=== PATIENT | female | born 1935 | race Caucasian/White ===

== ENCOUNTER 2023-01-28 12:42 | Emergency (ER) | payer MEDICARE, MEDICAID, SELFPAY ==
[2023-01-28 12:45] VITALS: BP 149/53; PULSE 80; RESP 16; TEMP 36.8; O2SAT 99; BMI 25.0
--- NOTE | 2023-01-28 12:49 | XR_ITS ---
The [place] [id number] Patient Name: MARTHA FERGUSON MRN: [id number] date: 1935 Sex: F Assigned Patient Location: ER Current Patient Location: ED.MAIN Accession/Order Number: [id number] Exam Date: 01/28/2023 13:00 Report Date: 01/28/2023 13:28 At the request of: CYRIL BENTLEY Procedure: XR lumbar spine 2-3V EXAMINATION: XR lumbar spine 2-3V, [id number] HISTORY: atraumatic pain, right-sided sciatica symptoms COMPARISON: None. FINDINGS: There are 5 nonrib-bearing lumbar-type vertebral bodies. No acute fracture or suspicious osseous lesion. Spinal alignment is within normal limits. Severe disc height loss moderate osteophytosis at L5-S1 with moderate disc height loss and moderate osteophytosis at L2-L3 and L4-L5. Lesser degenerative changes throughout the remainder of the lumbar spine. Severe calcified atherosclerosis of the abdominal aorta with bilateral vascular stents in the expected regions of the renal artery origins. XR/XR lumbar spine 2-3V IMPRESSION: 1. No acute abnormality. 2. Severe lumbar spondylosis, most notable at L5-S1 and L2-L3. Electronically authenticated by: DEX WASHBRUN Date: 01/28/2023 13:28
--- NOTE | 2023-01-28 12:50 | ED.GENADUL1 ---
HPI - General Adult General Chief complaint: Extremity Injury, Lower Stated complaint: LOWER EXTREMITY PAIN Time Seen by Provider: 01/28/23 12:44 Source: patient Mode of arrival: ambulance History of Present Illness HPI narrative: [age] female presents for right lower back pain which goes down the back of her right leg to the mid thigh region. No trauma. It started today. She's had somee issues with her back on and off her whole life and at one point many decades ago she was recommended surgery but didn't have it done. The pain is moderate and worse in certain positions. No left-sided pain. Related Data Previous Rx's Medication Instructions Recorded acetaminophen 300 mg-codeine 30 mg 1 tab PO Q6H PRN pain #20 tabs 01/28/23 tablet prednisone 10 mg tablet See Rx Instructions .Route 01/28/23 .COMPLEX #30 tabs Allergies Allergy/AdvReac Type Severity Reaction Status Date / Time No Known Drug Allergies Allergy Verified 01/28/23 12:45 Review of Systems ROS Narrative A ten point review of systems is negative except as noted above. Exam Narrative Exam Narrative: Nurses note and vital signs reviewed and patient is not hypoxic. General: The patient appears well and in no apparent distress. Patient is resting comfortably on cart, laying on her left side.. Skin: Warm, dry, no pallor noted. There is no rash noted including in the lumbar area and buttock area.. Head: Normocephalic, atraumatic Eye: Normal conjunctiva, no drainage Ears, Nose, Mouth, and Throat: oral mucosa is moist. Nares patent. Cardiovascular: Regular Rate and Rhythm Respiratory: Patient is in no distress, no accessory muscle use, lungs are clear to auscultation, no wheezing, rales or rhonchi Back: non-tender, no bruise or rash GI: nontender Musculoskeletal: no swelling in either leg Neurological: A&O, normal speech Psychiatric: Cooperative Constitutional Vital Signs, click to edit/add: Last Vital Signs Temp 98.2 F 01/28/23 12:45 Pulse 80 01/28/23 12:45 Resp 16 01/28/23 12:45 BP 149/53 H 01/28/23 12:45 Pulse Ox 99 01/28/23 12:53 O2 Del Method Room Air 01/28/23 12:53 Course Vital Signs Vital signs: Vital Signs Temperature 98.2 F 01/28/23 12:45 Pulse Rate 80 01/28/23 12:45 Respiratory Rate 16 01/28/23 12:45 Blood Pressure 149/53 H 01/28/23 12:45 Pulse Oximetry 99 01/28/23 12:45 Oxygen Delivery Method Room Air 01/28/23 12:45 Temperature 98.2 F 01/28/23 12:45 Pulse Rate 80 01/28/23 12:45 Respiratory Rate 16 01/28/23 12:45 Blood Pressure 149/53 H 01/28/23 12:45 Pulse Oximetry 99 01/28/23 12:53 Oxygen Delivery Method Room Air 01/28/23 12:53 Medical Decision Making MDM Narrative Medical decision making narrative: x-ray showed degenerative changes but no acute findings such as a compression fracture. She was given IM Toradol here and is prescribed Discharge Plan Discharge Chief Complaint: Extremity Injury, Lower Clinical Impression: Sciatica Patient Disposition: Home, Self-Care Time of Disposition Decision: 15:02 Condition: Good Mode of Transportation: Private Vehicle Prescriptions / Home Meds: New prednisone 10 mg tablet See Rx Instructions .ROUTE .COMPLEX Qty: 30 0RF Rx Instructions: 4 by mouth daily for three days then 3 by mouth daily for three days then 2 by mouth daily for three days then 1 by mouth daily for three days acetaminophen-codeine 300-30 mg tablet 1 tab PO Q6H PRN (Reason: pain) Qty: 20 0RF Instructions: Sciatica (ED) Stand Alone Forms: Portal Instructions Referrals: Physician,Non-Staff, MD [Primary Care Provider] - 1 week
[2023-01-28 12:53] VITALS: O2SAT 99
[2023-01-28] MEDS: KETOROLAC TROMETHAMINE 60 MG/2 ML VIAL IM (13:43)
== END 2023-01-28 15:41 | disposition home or self-care (01) ==
PROVIDERS: Emergency Provider Emergency Medicine
DX: M54.41 Lumbago with sciatica, right side (principal); M47.816 Spondylosis without myelopathy or radiculopathy, lumbar region
CPT/HCPCS: 72100; 96372; 99284

== ENCOUNTER 2023-02-07 04:49 | Outpatient (REF) | payer MEDICARE, MEDICAID, SELFPAY ==
[2023-02-07 10:25] LABS: Hematocrit 27.2 % (36.0-48.0); Hemoglobin 8.6 g/dL (12.0-16.0); Mean Corpuscular HGB Conc 31.6 g/dL (29.9-35.2); Mean Corpuscular Hemoglobin 29.1 pg (26.7-34.0); Mean Corpuscular Volume 91.9 fL (81.0-99.0); Mean Platelet Volume 9.3 fL (9.5-13.5); Platelet Count 215 10^3/uL (150-450); Red Blood Count 2.96 10^6/uL (4.20-5.40); Red Cell Distribution Width 15.2 % (11.0-15.0); White Blood Count 19.9 10^3/uL (4.0-11.0)
[2023-02-07 11:21] LABS: Segmented Neut Absolute Manual 16.31 10^3/uL (1.4-6.5)
[2023-02-07 11:22] LABS: Band Neutrophils Absolute 0.4 10^3/uL (0.0-0.3); Eosinophils Absolute Manual 0.39 10^3/uL (0.00-0.70); Lymphocytes Absolute Manual 1.59 10^3/uL (1.20-3.80); Monocytes Absolute Manual 0.99 10^3/uL (0.30-0.80)
[2023-02-07 11:24] LABS: Metamyelocytes Absolute Manual 0.19
[2023-02-07 13:09] LABS: Anion Gap 12.7; Carbon Dioxide 26.2 mmol/L (21.0-32.0); Chloride 106 mmol/L (98-107); Glucose 110 mg/dL (74-106); Potassium 3.9 mmol/L (3.5-5.1); Sodium 141 mmol/L (136-145)
[2023-02-07 13:10] LABS: BUN Creatinine Ratio 14.5; Bilirubin Total 0.3 mg/dL (0.2-1.0); Calcium 8.2 mg/dL (8.5-10.1); Estimated GFR (African America 34 (>=60); Estimated GFR (Non-African Ame 28 (>=60)
[2023-02-07 13:11] LABS: Alanine Aminotransferase 27 U/L (14-59); Alkaline Phosphatase 89 U/L (46-116); Aspartate Amino Transferase 17 U/L (15-37)
[2023-02-07 13:12] LABS: Albumin Globulin Ratio 1.1; Albumin Level 2.6 g/dL (3.4-5.0); Chol HDL Ratio 2.1; Cholesterol 105 mg/dL (<=200); Globulin 2.4 g/dL; HDL Cholesterol 49 mg/dL (40-60); Triglycerides 138 mg/dL (<=150); VLDL CHOLESTEROL 27.6 mg/dL
== END 2023-02-07 04:50 | disposition home or self-care (01) ==
LOC: LAB 04:49
DX: D64.9 Anemia, unspecified (principal); M25.561 Pain in right knee; M25.519 Pain in unspecified shoulder
CPT/HCPCS: 36415; 80053; 80061; 85027

== ENCOUNTER 2023-03-21 00:43 | Outpatient (REF) | payer MEDICARE, MEDICAID, SELFPAY ==
[2023-03-21 08:52] LABS: Basophils Absolute Auto 0.1 10^3/uL (0.0-0.1); Basophils Percent Auto 0.6 % (0.2-2.0); Eosinophils Absolute Auto 0.3 10^3/uL (0.0-0.7); Eosinophils Percent Auto 3.1 % (0.9-7.0); Hematocrit 24.3 % (36.0-48.0); Hemoglobin 7.4 g/dL (12.0-16.0); Immature Granulocytes Abs Auto 0.05 10^3/uL (0.00-0.03); Immature Granulocytes Pct Auto 0.6 % (0.0-0.5); Lymphocytes Percent Auto 12.1 % (20.5-60.0); Mean Corpuscular HGB Conc 30.5 g/dL (29.9-35.2); Mean Corpuscular Hemoglobin 29.5 pg (26.7-34.0); Mean Corpuscular Volume 96.8 fL (81.0-99.0); Mean Platelet Volume 9.7 fL (9.5-13.5); Monocytes Absolute Auto 0.6 10^3/uL (0.3-0.8); Monocytes Percent Auto 6.6 % (1.7-12.0); Neutrophils Absolute Auto 6.5 10^3/uL (1.4-6.5); Platelet Count 232 10^3/uL (150-450); Red Blood Count 2.51 10^6/uL (4.20-5.40); White Blood Count 8.4 10^3/uL (4.0-11.0)
[2023-03-21 09:12] LABS: Alanine Aminotransferase 13 U/L (14-59); Albumin Globulin Ratio 1.3; Albumin Level 3.1 g/dL (3.4-5.0); Alkaline Phosphatase 111 U/L (46-116); Anion Gap 14.1; Aspartate Amino Transferase 10 U/L (15-37); BUN Creatinine Ratio 18.8; Bilirubin Total 0.3 mg/dL (0.2-1.0); Calcium 8.3 mg/dL (8.5-10.1); Chloride 107 mmol/L (98-107); Estimated GFR (African America 39 (>=60); Estimated GFR (Non-African Ame 32 (>=60); Globulin 2.4 g/dL; Glucose 129 mg/dL (74-106); Potassium 4.1 mmol/L (3.5-5.1); Sodium 142 mmol/L (136-145); Total Protein 5.5 g/dL (6.4-8.2)
== END 2023-03-21 00:44 | disposition home or self-care (01) ==
LOC: LAB 00:43
DX: I10 Essential (primary) hypertension (principal)
CPT/HCPCS: 36415; 80053; 85025

== ENCOUNTER 2023-03-26 09:35 | Emergency (ER) | payer MEDICARE, MEDICAID, SELFPAY ==
[2023-03-26 09:40] VITALS: BP 125/75; PULSE 74; RESP 20; TEMP 36.4; O2SAT 97; BMI 22.5
[2023-03-26 10:15] LABS: Basophils Absolute Auto 0.1 10^3/uL (0.0-0.1); Basophils Percent Auto 0.6 % (0.2-2.0); Eosinophils Absolute Auto 0.3 10^3/uL (0.0-0.7); Eosinophils Percent Auto 3.4 % (0.9-7.0); Hematocrit 27.3 % (36.0-48.0); Hemoglobin 8.4 g/dL (12.0-16.0); Immature Granulocytes Abs Auto 0.06 10^3/uL (0.00-0.03); Immature Granulocytes Pct Auto 0.7 % (0.0-0.5); Lymphocytes Percent Auto 11.3 % (20.5-60.0); Mean Corpuscular HGB Conc 30.8 g/dL (29.9-35.2); Mean Corpuscular Hemoglobin 28.8 pg (26.7-34.0); Mean Corpuscular Volume 93.5 fL (81.0-99.0); Mean Platelet Volume 9.6 fL (9.5-13.5); Monocytes Absolute Auto 0.6 10^3/uL (0.3-0.8); Monocytes Percent Auto 6.8 % (1.7-12.0); Neutrophils Absolute Auto 6.7 10^3/uL (1.4-6.5); Neutrophils Percent Auto 77.2 % (43.0-75.0); Platelet Count 276 10^3/uL (150-450); Red Blood Count 2.92 10^6/uL (4.20-5.40); Red Cell Distribution Width 14.6 % (11.0-15.0); White Blood Count 8.6 10^3/uL (4.0-11.0)
[2023-03-26 10:16] LABS: Alanine Aminotransferase 13 U/L (14-59); Albumin Globulin Ratio 1.1; Albumin Level 3.4 g/dL (3.4-5.0); Alkaline Phosphatase 124 U/L (46-116); Anion Gap 16.1; Aspartate Amino Transferase 16 U/L (15-37); BUN Creatinine Ratio 18.5; Bilirubin Total 0.4 mg/dL (0.2-1.0); Calcium 8.8 mg/dL (8.5-10.1); Carbon Dioxide 25.4 mmol/L (21.0-32.0); Chloride 104 mmol/L (98-107); Estimated GFR (African America 41 (>=60); Estimated GFR (Non-African Ame 34 (>=60); Glucose 111 mg/dL (74-106); Potassium 4.5 mmol/L (3.5-5.1); Sodium 141 mmol/L (136-145); Total Protein 6.4 g/dL (6.4-8.2)
--- NOTE | 2023-03-26 10:34 | ED_ITS ---
HPI - General Adult General Chief complaint: Recheck/Abnormal Lab/Rx Stated complaint: BLOOD TRANSFUSION Time Seen by Provider: 03/26/23 09:48 Source: patient Mode of arrival: walk-in Limitations: no limitations History of Present Illness HPI narrative: Patient lives at a halfway. She had blood drawn 03/21 that showed Hb was 7.4. They tried to send her to the ED but she refused. They did not recheck the CBC or get other tests at the [facility]. Instead they sent her to the ED this morning to get checked out . Patient is without any complaints other than my legs have felt a little weak for about a week or so. No pain. No change in urinary habits. No fever or chills. No nausea, vomiting or diarrhea. Related Data Home Medications Medication Instructions Recorded Confirmed amlodipine 5 mg tablet 5 mg PO DAILY 03/26/23 03/26/23 aspirin 81 mg tablet,delayed 81 mg PO DAILY 03/26/23 03/26/23 release (Adult Aspirin Regimen) atorvastatin 80 mg tablet 80 mg PO DAILY 03/26/23 03/26/23 carvedilol 25 mg tablet 25 mg PO Q12H 03/26/23 03/26/23 clonidine HCl 0.1 mg tablet 0.1 mg PO Q12H 03/26/23 03/26/23 cyclosporine 0.09 % eye drops in a 1 drp ophthalmic (eye) Q12H 03/26/23 03/26/23 dropperette (Cequa) docusate sodium 100 mg capsule 100 mg PO BID PRN constipation 03/26/23 03/26/23 (Col-Rite) ferrous sulfate 325 mg (65 mg 325 mg PO DAILY 03/26/23 03/26/23 iron) tablet (Feosol) ipratropium bromide 21 mcg (0.03 intranasal TID PRN allergy symptoms 03/26/23 %) nasal spray isosorbide mononitrate 30 mg 30 mg PO BID 03/26/23 03/26/23 tablet,extended release 24 hr ondansetron HCl 4 mg tablet 4 mg PO Q8H PRN nausea and vomiting 03/26/23 03/26/23 pantoprazole 40 mg tablet,delayed 40 mg PO DAILY 03/26/23 03/26/23 release spironolactone 25 mg tablet 25 mg PO DAILY 03/26/23 03/26/23 ticagrelor 90 mg tablet (Brilinta) 90 mg PO Q12H 03/26/23 03/26/23 trazodone 50 mg tablet 50 mg PO DAILY PRN insomnia 03/26/23 03/26/23 Previous Rx's Medication Instructions Recorded acetaminophen 300 mg-codeine 30 mg 1 tab PO Q6H PRN pain #20 tabs 01/28/23 tablet Allergies Allergy/AdvReac Type Severity Reaction Status Date / Time Penicillins Allergy Severe Verified 03/26/23 10:06 lisinopril Allergy Unknown Verified 03/26/23 10:06 metaxalone [From Skelaxin] Allergy Unknown Verified 03/26/23 10:06 PFSH PFSH Social History Smoking status: Never smoker Exam Narrative Exam Narrative: Nurses notes and vital signs reviewed and patient is not hypoxic. afebrile General: Well-appearing and in no apparent distress. Skin: Warm, dry, no pallor noted. Head: Normocephalic, atraumatic. Neck: Supple, non-tender. Eye: Pupils are equal, round and EOMI. No scleral icterus. Ears, Nose, Mouth, and Throat: Oral mucosa is moist Cardiovascular: Regular Rate and Rhythm without murmur, gallop or rub. Respiratory: No accessory muscle use or respiratory distress. Lungs are clear to auscultation, no wheezing, rales or rhonchi Back: No midline thoracic or lumbar vertebral tenderness. No CVA tenderness Musculoskeletal: normal ROM, no calf or popliteal tenderness, no upper or lower extremity edema/swelling GI: Abdomen is soft, non-distended. Normal bowel sounds. No tenderness to palpation. No rebound, guarding, or rigidity noted. Neurological: A&O x4. No cranial nerve dysfunction observed. No truncal ataxia. Moves all extremities. Sensation intact. Psychiatric: Cooperative and interactive. Normal mood and affect. Constitutional Vital Signs, click to edit/add: Last Vital Signs Temp 97.6 F 03/26/23 09:40 Pulse 74 03/26/23 09:40 Resp 20 03/26/23 09:40 BP 125/75 03/26/23 09:40 Pulse Ox 97 03/26/23 09:40 Course Vital Signs Vital signs: Vital Signs Temperature 97.6 F 03/26/23 09:40 Pulse Rate 74 03/26/23 09:40 Respiratory Rate 20 03/26/23 09:40 Blood Pressure 125/75 03/26/23 09:40 Pulse Oximetry 97 03/26/23 09:40 Temperature 97.6 F 03/26/23 09:40 Pulse Rate 74 03/26/23 09:40 Respiratory Rate 20 03/26/23 09:40 Blood Pressure 125/75 03/26/23 09:40 Pulse Oximetry 97 03/26/23 09:40 Medical Decision Making MDM Narrative Medical decision making narrative: hemoglobin increased to 8.4. Renal function is better than it has been the last two blood draws. Electrolytes are normal. Normal white blood cell count. Urine was obtained and sent for testing. UA negative for infection. Patient informed of results, given reassurance and was discharged back to the [facility]. She will take her meds as prescribed and see her PCP for follow up or return to the ED as needed. Lab Data Lab results reviewed: Yes I reviewed the patient's lab results Labs: Lab Results 03/26/23 03/26/23 Range/Units 09:55 10:36 WBC 8.6 (4.0-11.0) 10^3/uL RBC 2.92 L (4.20-5.40) 10^6/uL Hgb 8.4 L (12.0-16.0) g/dL Hct 27.3 L (36.0-48.0) % MCV 93.5 (81.0-99.0) fL MCH 28.8 (26.7-34.0) pg MCHC 30.8 (29.9-35.2) g/dL RDW 14.6 (11.0-15.0) % Plt Count 276 (150-450) 10^3/uL MPV 9.6 (9.5-13.5) fL Neut % (Auto) 77.2 H (43.0-75.0) % Lymph % (Auto) 11.3 L (20.5-60.0) % [place] % (Auto) 6.8 (1.7-12.0) % Eos % (Auto) 3.4 (0.9-7.0) % Baso % (Auto) 0.6 (0.2-2.0) % Neut # (Auto) 6.7 H (1.4-6.5) 10^3/uL Lymph # (Auto) 1.0 L (1.2-3.8) 10^3/uL [place] # (Auto) 0.6 (0.3-0.8) 10^3/uL Eos # (Auto) 0.3 (0.0-0.7) 10^3/uL Baso # (Auto) 0.1 (0.0-0.1) 10^3/uL Abs Immat Gran (auto) 0.06 H (0.00-0.03) 10^3/uL Imm/Tot Granulo (auto) 0.7 H (0.0-0.5) % Sodium 141 (136-145) mmol/L Potassium 4.5 (3.5-5.1) mmol/L Chloride 104 (98-107) mmol/L Carbon Dioxide 25.4 (21.0-32.0) mmol/L Anion Gap 16.1 BUN 27.0 H (7.0-18.0) mg/dL Creatinine 1.46 H (0.55-1.02) mg/dL Est GFR ( Amer) 41 L (>=60) Est GFR (Non-Af Amer) 34 L (>=60) BUN/Creatinine Ratio 18.5 Glucose 111 H (74-106) mg/dL Calcium 8.8 (8.5-10.1) mg/dL Total Bilirubin 0.4 (0.2-1.0) mg/dL AST 16 (15-37) U/L ALT 13 L (14-59) U/L Alkaline Phosphatase 124 H (46-116) U/L Total Protein 6.4 (6.4-8.2) g/dL Albumin 3.4 (3.4-5.0) g/dL Globulin 3.0 g/dL Albumin/Globulin Ratio 1.1 Urine Color Lt. yellow (YELLOW) Urine Clarity Clear (CLEAR) Urine pH 6.0 (5.0-9.0) Ur Specific [place] 1.020 (1.005-1.025) Urine Protein Negative (NEG/TRACE) mg/dL Urine Glucose (UA) Negative (NEGATIVE) mg/dL Urine Ketones Negative (NEGATIVE) mg/dL Urine Occult Blood Trace-i (NEGATIVE) Urine Nitrite Negative (NEGATIVE) Urine Bilirubin Negative (NEGATIVE) Urine Urobilinogen 0.2 (0.2-1.0) EU/dL Ur Leukocyte Esterase Negative (NEGATIVE) Urine RBC 0-2 (0-2) #/HPF Urine WBC None seen (NONE SEEN) #/HPF Ur Squamous Epith Cells Rare (NONE/RARE) #/LPF Urine Crystals None seen (None Seen) #/HPF Urine Bacteria None seen (NONE SEEN) #/HPF Urine Casts None seen (NONE SEEN) #/LPF Urine Mucus Trace A (NONE SEEN) Ur Culture Indicated? No Discharge Plan Discharge Chief Complaint: Recheck/Abnormal Lab/Rx Clinical Impression: Weakness Patient Disposition: Home, Self-Care Time of Disposition Decision: 10:59 Prescriptions / Home Meds: No Action acetaminophen-codeine 300-30 mg tablet 1 tab PO Q6H PRN (Reason: pain) Qty: 20 0RF amlodipine 5 mg tablet 5 mg PO DAILY atorvastatin 80 mg tablet 80 mg PO DAILY carvedilol 25 mg tablet 25 mg PO Q12H clonidine HCl 0.1 mg tablet 0.1 mg PO Q12H Cequa 0.09 % dropperette 1 drp OPHTHALMIC (EYE) Q12H isosorbide mononitrate 30 mg tablet extended release 24 hr 30 mg PO BID pantoprazole 40 mg tablet,delayed release (DR/EC) 40 mg PO DAILY spironolactone 25 mg tablet 25 mg PO DAILY Brilinta 90 mg tablet 90 mg PO Q12H ferrous sulfate [Feosol] 325 mg (65 mg iron) tablet 325 mg PO DAILY aspirin [Adult Aspirin Regimen] 81 mg tablet,delayed release (DR/EC) 81 mg PO DAILY docusate sodium [Col-Rite] 100 mg capsule 100 mg PO BID PRN (Reason: constipation) ipratropium bromide 21 mcg (0.03 %) spray,non-aerosol INTRANASAL TID PRN (Reason: allergy symptoms) ondansetron HCl 4 mg tablet 4 mg PO Q8H PRN (Reason: nausea and vomiting) trazodone 50 mg tablet 50 mg PO DAILY PRN (Reason: insomnia) Instructions: How to Get a Person out of Bed (DC), Weakness (ED), How to Help a Person Change Position Safely (DC) Stand Alone Forms: Portal Instructions Referrals: Physician,Non-Staff, MD [Primary Care Provider] - 1 week
[2023-03-26 10:51] LABS: Bilirubin Urine NEGATIVE (NEGATIVE); Blood Urine TRACE-I (NEGATIVE); Clarity Urine CLEAR (CLEAR); Color Urine LT. YELLOW (YELLOW); Glucose Urine UA NEGATIVE (NEGATIVE); Ketones Urine NEGATIVE (NEGATIVE); Leukocyte Esterase Urine NEGATIVE (NEGATIVE); Nitrite Urine NEGATIVE (NEGATIVE); Protein Urine NEGATIVE (NEG/TRACE); Urine Microscopic Indicated YES; Urobilinogen Urine 0.2 EU/dL (0.2-1.0)
[2023-03-26 10:56] LABS: Bacteria Urine NONE SEEN #/HPF (NONE SEEN); RBC Urine 0-2 #/HPF (0-2); WBC Urine NONE SEEN #/HPF (NONE SEEN)
[2023-03-26 10:57] LABS: Cast Seen? NONE SEEN #/LPF (NONE SEEN); Crystals Seen? None Seen #/HPF (None Seen); Mucus Urine TRACE (NONE SEEN); Squamous Epithelial Cell Urine RARE #/LPF (NONE/RARE); Urine Culture Indicated NO
== END 2023-03-26 11:14 | disposition home or self-care (01) ==
PROVIDERS: Emergency Provider Emergency Medicine
DX: R53.1 Weakness (principal); R79.89 Other specified abnormal findings of blood chemistry; Z79.82 Long term (current) use of aspirin
CPT/HCPCS: 36415; 80053; 81001; 85025; 99283

== ENCOUNTER 2023-05-17 17:52 | Emergency (ER) | payer MEDICARE, MEDICAID, SELFPAY ==
[2023-05-17] VITALS (11 sets, daily range): BP systolic 135–149; BP diastolic 60–93; PULSE 89–102; RESP 18–36; TEMP 37.1; O2SAT 95–98; BMI 23.8
--- NOTE | 2023-05-17 17:54 | ED_ITS ---
HPI - URI/Sore Throat General Chief Complaint: Upper Respiratory Infection Stated Complaint: SOB Time Seen by Provider: 05/17/23 17:53 History of Present Illness HPI Narrative: this patient comes to us from a [facility]. She is a very spunky complicated 87-year-old said she just developed a cough and congestion for the last twenty- four hours. She is not coughing Ashvin Flemmer mucus. She is not use tobacco products. She has no underlying heart or pulmonary vascular or pulmonary disease she is aware of. She is not running a fever here. She has had immunizations for influenza and Covid in the past. A aliza to [facility] for Covid today and it was negative. They did not test her for flu. The EMS squad gave her a nebulizer treatment on the way here. She's never been on oxygen or bronchial dilator therapy. Says she doesn't have any abdominal pain, nausea or vomiting. Does not have headache. No heaviness in the chest that she says she can tell that she is doing some wheezing Related Data Home Medications Medication Instructions Recorded Confirmed amlodipine 5 mg tablet 5 mg PO DAILY 03/26/23 03/26/23 aspirin 81 mg tablet,delayed 81 mg PO DAILY 03/26/23 03/26/23 release (Adult Aspirin Regimen) atorvastatin 80 mg tablet 80 mg PO DAILY 03/26/23 03/26/23 carvedilol 25 mg tablet 25 mg PO Q12H 03/26/23 03/26/23 clonidine HCl 0.1 mg tablet 0.1 mg PO Q12H 03/26/23 03/26/23 cyclosporine 0.09 % eye drops in a 1 drp ophthalmic (eye) Q12H 03/26/23 03/26/23 dropperette (Cequa) docusate sodium 100 mg capsule 100 mg PO BID PRN constipation 03/26/23 03/26/23 (Col-Rite) ferrous sulfate 325 mg (65 mg 325 mg PO DAILY 03/26/23 03/26/23 iron) tablet (Feosol) ipratropium bromide 21 mcg (0.03 intranasal TID PRN allergy symptoms 03/26/23 %) nasal spray isosorbide mononitrate 30 mg 30 mg PO BID 03/26/23 03/26/23 tablet,extended release 24 hr ondansetron HCl 4 mg tablet 4 mg PO Q8H PRN nausea and vomiting 03/26/23 03/26/23 pantoprazole 40 mg tablet,delayed 40 mg PO DAILY 03/26/23 03/26/23 release spironolactone 25 mg tablet 25 mg PO DAILY 03/26/23 03/26/23 ticagrelor 90 mg tablet (Brilinta) 90 mg PO Q12H 03/26/23 03/26/23 trazodone 50 mg tablet 50 mg PO DAILY PRN insomnia 03/26/23 03/26/23 Previous Rx's Medication Instructions Recorded acetaminophen 300 mg-codeine 30 mg 1 tab PO Q6H PRN pain #20 tabs 01/28/23 tablet Allergies Allergy/AdvReac Type Severity Reaction Status Date / Time Penicillins Allergy Severe Verified 03/26/23 10:06 lisinopril Allergy Unknown Verified 03/26/23 10:06 metaxalone [From Skelaxin] Allergy Unknown Verified 03/26/23 10:06 PFSH PFSH Social History Smoking status: Never smoker Exam Narrative Exam Narrative: very pleasant very alert 87-year-old in no distress pulse oximetry is normal and she is afebrile. Auscultation of lungs shows very minimal end expiratory wheezing but she did receive a nebulizer in route to the hospital today. There is no rales or rhonchi. Heart sounds are normal with no gallop rub or murmur or arrhythmia. HEENT shows no focus of infection or airway swelling. Extremities do not show any evidence of swelling edema or deep vein thrombosis. Constitutional Vital Signs, click to edit/add: Last Vital Signs Temp 98.7 F 05/17/23 17:53 Pulse 90 05/17/23 18:30 Resp 18 05/17/23 18:30 BP 139/60 05/17/23 18:30 Pulse Ox 98 05/17/23 18:20 O2 Del Method Room Air 05/17/23 17:58 Course Vital Signs Vital signs: Vital Signs Temperature 98.7 F 05/17/23 17:53 Pulse Rate 97 H 05/17/23 17:53 Respiratory Rate 18 05/17/23 17:53 Blood Pressure 149/64 H 05/17/23 17:53 Pulse Oximetry 95 05/17/23 17:53 Oxygen Delivery Method Room Air 01/06/24 17:53 Temperature 98.7 F 05/17/23 17:53 Pulse Rate 90 05/17/23 18:30 Respiratory Rate 18 05/17/23 18:30 Blood Pressure 139/60 05/17/23 18:30 Pulse Oximetry 98 05/17/23 18:20 Oxygen Delivery Method Room Air 05/17/23 17:58 MDM - URI/Sore Throat MDM Narrative Medical decision making narrative: patient's Covid and influenza screen are both negative. I will place her on a bronchodilator and she's competent she has good ability to use that. Also a dvised azithromycin Lab Data Labs: Lab Results 05/17/23 Range/Units 18:00 SARS-CoV-2 (PCR) Negative (NEGATIVE) Influenza Type A Ag Negative Influenza Type B Ag Negative Discharge Plan Discharge Chief Complaint: Upper Respiratory Infection Clinical Impression: Bronchitis Patient Disposition: Home, Self-Care Time of Disposition Decision: 18:56 Prescriptions / Home Meds: No Action acetaminophen-codeine 300-30 mg tablet 1 tab PO Q6H PRN (Reason: pain) Qty: 20 0RF amlodipine 5 mg tablet 5 mg PO DAILY atorvastatin 80 mg tablet 80 mg PO DAILY carvedilol 25 mg tablet 25 mg PO Q12H clonidine HCl 0.1 mg tablet 0.1 mg PO Q12H Cequa 0.09 % dropperette 1 drp OPHTHALMIC (EYE) Q12H isosorbide mononitrate 30 mg tablet extended release 24 hr 30 mg PO BID pantoprazole 40 mg tablet,delayed release (DR/EC) 40 mg PO DAILY spironolactone 25 mg tablet 25 mg PO DAILY Brilinta 90 mg tablet 90 mg PO Q12H ferrous sulfate [Feosol] 325 mg (65 mg iron) tablet 325 mg PO DAILY aspirin [Adult Aspirin Regimen] 81 mg tablet,delayed release (DR/EC) 81 mg PO DAILY docusate sodium [Col-Rite] 100 mg capsule 100 mg PO BID PRN (Reason: constipation) ipratropium bromide 21 mcg (0.03 %) spray,non-aerosol INTRANASAL TID PRN (Reason: allergy symptoms) ondansetron HCl 4 mg tablet 4 mg PO Q8H PRN (Reason: nausea and vomiting) trazodone 50 mg tablet 50 mg PO DAILY PRN (Reason: insomnia) Additional Instructions: Z-Grabiel/albuterol inhaler Stand Alone Forms: Portal Instructions Referrals: Physician,Non-Staff, MD [Primary Care Provider] - 1 week
--- NOTE | 2023-05-17 17:58 | ECG_ITS ---
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1935 Requested By: [id number] Order Number: [id number] Reading MD: LEYLA DUNCAN Measurements Intervals [place] Rate: 98 P: 64 MO: 180 QRS: 63 QRSD: 72 T: 44 QT: 332 QTc: 388 Interpretive Statements 1100 Sinus rhythm 34704 with occasional ventricular premature complexes (Unreliable analysis due to noise) 0102 ARTIFACT PRESENT 9140 abnormal rhythm ECG Compared to ECG 06/16/2022 18:40:28 Ventricular premature complex(es) now present Sinus tachycardia no longer present ST (T wave) deviation no longer present Possible ischemia no longer present Electronically Signed On 05-18-2023 6:51:49 EST by LEYLA DUNCAN
--- NOTE | 2023-05-17 18:01 | XR_ITS ---
The [address] [address] Patient Name: MARTHA FERGUSON MRN: [id number] date: 1935 Sex: F Assigned Patient Location: ED.MAIN Current Patient Location: ED.MAIN Accession/Order Number: [id number] Exam Date: 05/17/2023 18:10 Report Date: 05/17/2023 18:43 At the request of: LAN MURPHY Procedure: XR chest 1V EXAMINATION: XR chest 1V, , 05/17/2023 6:10 PM EST INDICATION: cough HISTORY: Ordering Provider Reason for Exam: cough Technologist Note: Additional: COMPARISON: Chest x-ray dated 06/16/2022. TECHNIQUE: Chest x-ray: One view. FINDINGS: No pneumothorax, pleural effusion or focal airspace consolidation. Heart is normal in size. Bony thorax is unremarkable. Large hiatal hernia is seen. XR/XR chest 1V IMPRESSION: No acute cardiopulmonary process. Large hiatal hernia. Electronically authenticated by: BENJAMIN ROGERS Date: 05/17/2023 18:43
--- OUTSIDE RECORDS SUMMARY | 2023-05-17 18:11 | XMS_ITS | CCD ---
Author Name Unknown Address [address] [place] [address] Organization [facility] Care Team Providers Care 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 Name Role Phone Deonte ROSARIO Primary Care Physician Marline Gutierrez Unavailable Unavailable Deonte Rosario MD Primary Care Provider JONG BENTON Referring Unavailable ADRIAN RILEY Admitting Unavailable ADRIAN RILEY Attending Unavailable DEONTE ROSARIO Primary Care Unavailable DR DEONTE ROSARIO Primary Care Unavailable HILARY GONZALES Admitting Unavailable DR JONG TALBERT Consulting Unavailable HILARY GONAZLES Attending Unavailable BENJAMIN ROGERS Consulting Unavailable SERGIO DUQUE Consulting Unavailable HILARY GONZALES Consulting Unavailable DR DEONTE ROSARIO Consulting Unavailable DR DEONTE ROSARIO Primary Care Unavailable DR DEONTE ROSARIO Admitting Unavailable DR DEONTE ROSARIO Attending Unavailable Deonte ROSARIO Attending Unavailable Wolf Peres Admitting Unavaila Wolf Richardson Attending Unavaila Wolf Richardson Referring Unavaila ble Wolf Peres Attending Unavaila Brunilda Dooley Attending Unavailable Deonte ROSARIO Attending Unavailable MARK Lovelace Attending Naomi neryble Deonte ROSARIO Attending Unavailable Deonte ROSARIO Attending Unavailable Deonte ROSARIO Attending Unavailable Deonte ROSARIO Attending Unavailable Deonte ROSARIO Attending Unavailable Juancho CONTRERAS Attending Unavailable NONE, XXXX Referring Unavailable Juancho CONTRERAS Admitting Unavailable Mamie SCOTT Attending Unavailable NONE, XXXX Referring Unavailable Mamie SCOTT Admitting Unavailable Wolf Peres Admitting Unavaila ble Wolf Peres Attending Unavaila ble Wolf Peres Referring Unavaila ble Allergies Allergy Classification Reported Allergen(s) Allergy Type Date of Onset Reaction(s) Facility (18 sources) Latex; Translations: [Latex] Drug allergy Eruption of skin (disorder) [facility] (19 sources) metaxalone; Translations: [metaxalone] Drug Allergy 3 Dyspnea (finding) [facility] (19 sources) Penicillin; Translations: [penicillin] Drug Allergy Eruption of skin (disorder), Dyspnea (finding) [facility] (18 sources) Shellfish; Translations: [shellfish] Drug allergy [facility] (9 sources) Lisinopril; Translations: [lisinopril] Drug Allergy 3 Angioedema, Angioedema (disorder) [facility] [employer] Work Phone: (1 source) Penicillins Propensity to adverse reactions to drug 3 [employer] Work Phone: (1 source) metaxalone Drug Allergy [facility] (1 source) Contrast media; Translations: [Contrast Dye] Propensity to adverse reactions (disorder) [facility] (1 source) Povidone-Iodine ; Translations: [Betadine] Drug Allergy [facility] Medications Current Medications Medication Drug Class(es) Dates Sig (Normalized) Sig (Original) Acetaminophen (18 sources) Start: 06-17-2022 acetaminophen (TYLENOL) tablet 650 mg Start: 10-17-2021 take 325 mg by mouth every six hours as needed for pain acetaminophen 325 mg, Oral, q6hr, PRN as needed for pain, Refills(s) 0 Start Date: 10/17/21 Status: Ordered amLODIPine 5 mg oral tablet (15 sources) Dihydropyridine Calcium Channel Nelly Start: 01-22-2022 take 1 tablet by mouth once daily amLODIPine 5 mg Tab 5 mg = 1 tab(s), Oral, Daily, # 30 tab(s), Refills(s) 11 Start Date: 01/22/22 Status: Ordered Start: 12-14-2021 take 1 tablet by laurie once daily amLODIPine 10 mg Tab 10 mg = 1 tab(s), Oral, Daily, # 30 tab(s), Refills(s) 5, Pharmacy: [facility], 162, cm, 11/30/21 15:06:00 EDT, Height/Length Dosing, 62, kg, 11/30/21 15:06:00 EDT, Weight Dosing Start Date: 12/14/21 Status: Ordered atorvastatin 80 mg oral tablet (19 sources) HMG-CoA Reductase Inhibitor Start: 02-13-2021 take 1 tablet by mouth at bedtime atorvastatin 80 mg Tab 80 mg = 1 tab(s), Oral, Bedtime, # 90 tab(s), Refills(s) 0, Pharmacy: [facility], 157, cm, 11/26/20 10:30:00 EDT, Height/Length Dosing, 68, kg, 11/26/20 10:30:00 EDT, Weight Dosing Start Date: 02/13/21 Status: Ordered carvedilol 25 mg oral tablet (10 sources) alpha-Adrenergic Nelly, beta-Adrenergic Nelly Start: 07-10-2022 take 1 tablet by mouth twice daily carvedilol 25 mg Tab 25 mg = 1 tab(s), Oral, BID, # 180 tab(s), Refills(s) 3, Pharmacy: [facility], 162, cm, 07/08/22 10:29:00 EST, Height/Length Dosing, 62.8, kg, 07/08/22 10:29:00 EST, Weight Dosing Start Date: 07/10/22 Status: Ordered Start: 06-19-2022 take 2 tablets by mo [facility] twice daily at mealtime carvedilol (COREG) 12.5 MG tablet Take 2 tablets by mouth 2 times daily (with meals) 60 tablet 3 06/19/2022 Active Start: 06-18-2022 carvedilol (CO REG) tablet 12.5 mg Start: 06-17-2022 End: 06-18-2022 carvedilol (COREG) tablet 6. 25 mg cloNIDine hydrochloride 0.1 mg oral tablet (19 sources) Central alpha-2 Adrenergic Agonist Start: 12-24-2019 take 1 tablet by mouth twice daily cloNIDine 0.1 mg tab 0.1 mg, Oral, BID, # 180 tab(s), Refills(s) 3, Pharmacy: [facility], 157, cm, 12/22/19 12:26:00 EDT, Height/Length Dosing, 63.9, kg, 12/22/19 12:26:00 EDT, Weight Dosing Start Date: 12/24/19 Status: Ordered cycloSPORINE 0.9 mg/ml ophthalmic solution (14 sources) Calcineurin Inhibitor Immunosuppressant Start: 07-08-2022 Cequa 0.09% ophthalmic solution Eye-Both, q12hr, Refill(s) 0, Dry eyes Start Date: 07/08/22 Status: Ordered Start: 07-08-2022 Cequa 0.09% op hthalmic solution Refill(s) 0 Start Date: 07/08/22 Status: Ordered Start: 10-17-2021 Restasis Multi Dose 0.05% ophthalmic emulsion 1 drop(s), QID, Refill(s) 0, Dry eyes Start Date: 10/17/21 Status: Ordered 1 ml diphenhydrAMINE hydrochloride 50 mg/ml cartridge (1 source) Histamine-1 Receptor Antagonist Start: 06-17-2022 diphenhydrAMINE (BENADRYL) injection 25 mg docusate sodium 100 mg oral capsule (18 sources) Start: 10-17-2021 take 1 capsule by mouth twice daily as needed for constipation docusate sodium 100 mg Cap 100 mg = 1 cap(s), Oral, BID, PRN for constipation, # 20 cap(s), Refills(s) 0 Start Date: 10/17/21 Status: Ordered 0.3 ml enoxaparin sodium 100 mg/ml prefilled syringe (1 source) Low Molecular Weight Heparin Start: 06-17-2022 enoxaparin Sodium (LOVENOX) injection 30 mg famotidine (PEPCID) 20 mg in sodium chloride (PF) 0.9 % 10 mL injection (1 source) Start: 06-17-2022 famotidine (PEPCID) 20 mg in sodium chloride (PF) 0.9 % 10 mL injection ferrous sulfate 325 mg delayed release oral tablet (17 sources) Start: 07-03-2021 take 1 tablet by mouth once daily ferrous sulfate 325 mg oral enteric coated tablet 325 mg = 1 tab(s), Oral, Daily, # 30 tab(s), Refills(s) 5, Pharmacy: [facility], 157, cm, 07/03/21 16:18:00 EST, Height/Length Dosing, 61.5, kg, 07/03/21 16:18:00 EST, Weight Dosing Start Date: 07/03/21 Status: Ordered Ipratropium (17 sources) Anticholinergic Start: 01-24-2021 Atrovent 0.03% [place] 2 spray(s), Nasal, TID Other (see comment), 1 EA, Refill(s) 1, [facility], 157, cm, 11/26/20 10:30:00 EDT, Height/Length Dosing, 68, kg, 11/26/20 10:30:00 EDT, Weight Dosing Start Date: 01/24/21 Status: Ordered 24 hr isosorbide mononitrate 30 mg extended release oral tablet (19 sources) Nitrate Vasodilator Start: 07-31-2022 take 1 tablet by mouth twice daily isosorbide mononitrate 30 mg ER Tab 30 mg = 1 tab(s), Oral, BID, # 60 tab(s), Refills(s) 11, Pharmacy: [facility], 157.5, cm, 07/31/22 13:30:00 EDT, Height/Length Dosing, 61, kg, 07/31/22 13:30:00 EDT, Weight Dosing Start Date: 07/31/22 Status: Ordered Start: 06-17-2022 take 15 mg by mouth once daily 15 mg, Oral, DAILY, First dose on Fri06/17/22 at 1130, Until Discontinued Start: 11-02-2020 take 1 tablet by laurie th twice daily isosorbide mononitrate 30 mg ER Tab 30 mg = 1 tab(s), Oral, BID, # 30 tab(s), Refills(s) 5, Pharmacy: [facility], 162, cm, 10/31/20 13:58:00 EDT, Height/Length Dosing, 64, kg, 10/31/20 13:58:00 EDT, Weight Dosing Start Date: 11/02/20 Status: Ordered Start: 11-02-2020 take 1 tablet by laurie th once daily in the morning isosorbide mononitrate 30 mg ER Tab 30 mg = 1 tab(s), Oral, qAM, # 30 tab(s), Refills(s) 5, Pharmacy: [place] [id number], 162, cm, 10/31/20 13:58:00 EDT, Height/Length Dosing, 64, kg, 10/31/20 13:58:00 EDT, Weight Dosing Start Date: 11/02/20 Status: Ordered take 15 mg by mouth once daily I SOSORBIDE MONONITRATE ER PO Take 15 mg by mouth daily 0 Active lisinopril 20 mg oral tablet (15 sources) Angiotensin Converting Enzyme Inhibitor Start: 02-13-2021 take 1 tablet by mouth twice daily lisinopril 20 mg Tab 20 mg = 1 tab(s), Oral, BID, # 90 tab(s), Refills(s) 0, Pharmacy: [facility], 157, cm, 11/26/20 10:30:00 EDT, Height/Length Dosing, 68, kg, 11/26/20 10:30:00 EDT, Weight Dosing Start Date: 02/13/21 Status: Ordered Start: 02-13-2021 take 1 tablet by laurie th once daily lisinopril 20 mg Tab 20 mg = 1 tab(s), Oral, Daily, # 90 tab(s), Refills(s) 0 Start Date: 10/17/21 Status: Ordered LORazepam 0.5 mg oral tablet (11 sources) Benzodiazepine Start: 11-27-2020 take 0.5 tablet by mouth every eight hours as needed for anxiety LORazepam 0.5 mg Tab See Instructions, Take 1/2 tablet by mouth every 8 hours as needed for anxiety. OARRS reviewed, no concerns. F41.9, # 5 tab(s), Refills(s) 0 Start Date: 11/27/20 Status: Ordered metoprolol tartrate 50 mg oral tablet (11 sources) beta-Adrenergic Nelly Start: 03-30-2020 End: 06-19-2022 take 1 tablet by mouth twice daily Lopressor 50 mg oral tablet 50 mg = 1 tab(s), Oral, BID, # 270 tab(s), Refills(s) 3, Pharmacy: [facility], 157, cm, 03/30/20 14:40:00 EST, Height/Length Dosing, 66.2, kg, 03/30/20 14:40:00 EST, Weight Dosing Start Date: 03/30/20 Status: Ordered nitroglycerin 0.4 mg sublingual tablet (16 sources) Nitrate Vasodilator Start: 11-26-2020 nitroglycerin 0.4 mg sublingual Tab 0.4 mg = 1 tab(s), SubLingual, q5min, PRN for chest pain, # 100 tab(s), Refills(s) 0 Start Date: 11/26/20 Status: Ordered nitroglycerin 0.4 mg sublingual Tab (1 source) Start: 11-26-2020 nitroglycerin 0.4 mg sublingual Tab 0.4 mg = 1 tab(s), SubLingual, q5min, PRN for chest pain, # 100 tab(s), Refills(s) 0 Start Date: 11/26/20 Status: Ordered ondansetron 4 mg oral tablet (17 sources) Serotonin-3 Receptor Antagonist Start: 10-17-2021 take 1 tablet by mouth every eight hours ondansetron 4 mg Tab 4 mg = 1 tab(s), Oral, q8hr, Refills(s) 0, Nausea/Vomiting Start Date: 10/17/21 Status: Ordered ondansetron (ZOFRAN-ODT) disintegrating tablet 4 mg (1 source) Start: 06-17-2022 ondansetron (ZOFRAN-ODT) disintegrating tablet 4 mg oxyCODONE hydrochloride 5 mg oral tablet (1 source) Opioid Agonist Start: 06-20-2022 End: 06-20-2022 oxyCODONE (ROXICODONE) immediate release tablet 5 mg Start: 06-20-2022 End: 06-20-2022 oxyCODONE (ROXICODONE) immed iate release tablet 5 mg pantoprazole 40 mg extended release oral tablet (18 sources) Proton Pump Inhibitor Start: 03-30-2020 take 1 tablet by mouth once daily pantoprazole 40 mg Oral EC Tab 40 mg, Oral, Daily, # 90 tab(s), Refills(s) 3, Pharmacy: [facility], 157, cm, 03/30/20 14:40:00 EST, Height/Length Dosing, 66.2, kg, 03/30/20 14:40:00 EST, Weight Dosing Start Date: 03/30/20 Status: Ordered Start: 03-30-2020 take 1 tablet by laurie th once daily pantoprazole 40 mg Oral EC Tab 40 mg, Oral, Daily, # 90 tab(s), Refills(s) 3, Pharmacy: [facility], 157, cm, 03/30/20 14:40:00 EST, Height/Length Dosing, 66.2, kg, 03/30/20 14:40:00 EST, Weight Dosing Start Date: 03/30/20 Status: Ordered polyethylene glycol 3350 27144 mg powder for oral solution (19 sources) Osmotic Laxative Start: 06-19-2022 polyethylene glycol (GLYCOLAX) packet 17 g Start: 10-17-2021 take 17 g by mouth once daily MiraLax 17 gm, Oral, Daily, Refill(s) 0, Constipation Start Date: 10/17/21 Status: Ordered Start: 10-17-2021 take 17 g by mouth once daily MiraLax 17 gm, Oral, Daily, Refill(s) 0 Start Date: 10/17/21 Status: Ordered polyvinyl alcohol 0.014 ml/ml ophthalmic solution (1 source) Start: 06-19-2022 polyvinyl alco hol (LIQUIFILM TEARS) 1.4 % ophthalmic solution 1 drop predniSONE 20 mg oral tablet (2 sources) Start: 06-20-2022 End: 06-23-2022 take 1 tablet by mouth once daily predniSONE (DELTASONE) 20 MG tablet Take 1 tablet by mouth daily for 3 doses 3 tablet 0 06/20/2022 06/23/2022 Active Refresh Optive (17 sources) Start: 10-17-2021 take 1 drop(s) into the eye(s) three times daily Refresh Optive 1 drop(s), Eye-Both, TID, Refill(s) 0, Dry skin Start Date: 10/17/21 Status: Ordered Start: 10-17-2021 take 1 drop(s) into the eye(s) three times daily Refresh Optive 1 drop(s), Eye-Both, TID, Refill(s) 0 Start Date: 10/17/21 Status: Ordered 5 ml sodium chloride 9 mg/ml injection (3 sources) Start: 06-17-2022 0.9 % sodium c hloride infusion Start: 06-17-2022 sodium chlorid e flush 0.9 % injection 5-40 mL spironolactone 25 mg oral tablet (18 sources) Aldosterone Antagonist Start: 03-14-2021 take 1 tablet by mouth once daily spironolactone 25 mg Tab 25 mg = 1 tab(s), Oral, Daily, # 30 tab(s), Refills(s) 5, Pharmacy: [facility], 157, cm, 03/13/21 13:41:00 EDT, Height/Length Dosing, 61, kg, 03/13/21 13:41:00 EDT, Weight Dosing Start Date: 03/14/21 Status: Ordered ticagrelor 90 mg oral tablet (19 sources) Start: 11-26-2020 take 1 tablet by mouth twice daily ticagrelor 90 mg oral tablet 90 mg = 1 tab(s), Oral, BID, Refills(s) 0, Blood Thinner Start Date: 03/15/22 Status: Ordered valACYclovir 1000 mg oral tablet (2 sources) Herpesvirus Nucleoside Analog DNA Polymerase Inhibitor, Herpes Simplex Virus Nucleoside Analog DNA Polymerase Inhibitor, Herpes Zoster Virus Nucleoside Analog DNA Polymerase Inhibitor Start: 02-07-2023 End: 02-14-2023 take 1 tablet by mouth every eight hours valacyclovir 1 g Tab 1 gm = 1 tab(s), Oral, q8hr, X 7 day(s), # 21 tab(s), Refills(s) 0, Pharmacy: [facility], 157, cm, 02/07/23 13:05:00 EDT, Height/Length Dosing, 63.7, kg, 02/07/23 13:05:00 EDT, Weight Dosing Start Date: 02/07/23 Stop Date: 02/14/23 Status: Ordered Completed/Discontinued Medications Medication Drug Class(es) Dates Sig (Normalized) Sig (Original) aspirin 81 mg delayed release oral tablet (19 sources) Platelet Aggregation Inhibitor, Nonsteroidal Anti-inflammatory Drug Start: 06-17-2022 take 81 mg by mouth once daily 81 mg, Oral, DAILY, First dose on Fri06/17/22 at 1130, Until Discontinued Do not crush or break. Start: 04-03-2011 take 1 tablet by laurie th once daily aspirin 81 mg oral tablet 81 mg = 1 tab(s), Oral, Daily, tab(s), Refills(s) 0, Prophylaxis Start Date: 04/03/11 Status: Ordered labetalol hydrochloride 5 mg/ml injectable solution (1 source) beta-Adrenergic Nelly Start: 06-17-2022 10 mg, IntraVENous, EVERY 4 HOURS PRN, Starting on Fri06/17/22 at 0828, Until Discontinued, High Blood Pressure, sbp> 160 50 ml magnesium sulfate 40 mg/ml injection (1 source) Start: 06-19-2022 End: 06-19-2022 magnesium sulfate 2000 mg in 50 mL IVPB premix methylPREDNISolone 40 mg injection (2 sources) Corticosteroid Start: 06-18-2022 End: 06-19-2022 methylPREDNISolone sodium (SOLU-MEDROL) injection 30 mg Start: 06-17-2022 End: 06-17-2022 methylPREDNISolone sodium (S CHIDI-MEDROL) injection 40 mg Restasis MultiDose 0.05% ophthalmic emulsion (1 source) Start: 10-17-2021 Restasis Multi Dose 0.05% ophthalmic emulsion 1 drop(s), QID, Refill(s) 0 Start Date: 10/17/21 Status: Ordered simvastatin 10 mg oral tablet (1 source) HMG-CoA Reductase Inhibitor End: 06-19-2022 take 1 tablet by mouth once daily simvastatin (ZOCOR) 10 MG tablet Take 10 mg by mouth nightly 0 06/19/2022 Discontinued (Stop Taking at Discharge) traZODone hydrochloride 50 mg oral tablet (19 sources) Serotonin Reuptake Inhibitor Start: 06-17-2022 take 25 mg by mouth once daily as needed 25 mg, Oral, NIGHTLY PRN, Starting on Fri06/17/22 at 2100, Until Discontinued, Sleep Start: 03-13-2021 take 1 tablet by laurie th once daily at bedtime traZODONE 50 mg Tab 50 mg = 1 tab(s), Oral, Once a day (at bedtime), # 15 tab(s), Refills(s) 5, Pharmacy: [facility], 157, cm, 03/13/21 13:41:00 EDT, Height/Length Dosing, 61, kg, 03/13/21 13:41:00 EDT, Weight Dosing Start Date: 03/13/21 Status: Ordered take 25 mg by mouth once daily as needed for sleep TRAZODONE HCL PO Take 25 mg by mouth nightly as needed for Sleep 0 Active Problems Active Problems Problem Classification Problem Date Documented Da te Episodic/Chronic Acute cerebrovascular disease (17 sources) Cerebrovascular accident Onset: 11-09-2010 07-23-2013 Chronic Acute myocardial infarction (20 sources) Myocardial infarction; Translations: [Acute ST segment elevation myocardial infarction] 11-26-2020 Chronic Anxiety disorders (18 sources) Anxiety disorder; Translations: [Anxiety disorder, unspecified] Onset: 07-31-2022 07-23-2013 Chronic Asthma (17 sources) Asthma 07-23-2013 Chronic Cardiac arrest and ventricular fibrillation (17 sources) Cardiac arrest 11-26-2020 Chronic Chronic kidney disease (20 sources) Chronic kidney disease stage 3; Translations: [Chronic kidney disease, stage 3 (moderate)] Onset: 10-17-2021 Chronic Chronic obstructive pulmonary disease and bronchiectasis (20 sources) Chronic obstructive lung disease; Translations: [Chronic obstructive pulmonary disease, unspecified] Onset: 10-17-2021 Chronic Congestive heart failure; nonhypertensive (1 source) Heart failure, unspecified; Translations: [HEART FAILURE UNSPECIFIED] Onset: 06-18-2022 Chronic Coronary atherosclerosis and other heart disease (18 sources) Coronary atherosclerosis; Translations: [Atherosclerotic heart disease of [place] coronary artery without angina pectoris] Onset: 01-22-2022 Chronic Deficiency and other anemia (1 source) Anemia due to chronic blood loss; Translations: [Iron deficiency anemia secondary to blood loss (chronic)] Onset: 01-30-2022 Chronic Deficiency and other anemia (4 sources) Anemia due to blood loss 01-30-2022 Chronic Deficiency and other anemia (20 sources) Anemia; Translations: [Anemia, unspecified] Onset: 10-17-2021 Episodic Deficiency and other anemia (1 source) Iron deficiency anemia; Translations: [Iron deficiency anemia, unspecified] Onset: 12-10-2022 Episodic Diabetes mellitus without complication (20 sources) Hyperglycemia; Translations: [Hyperglycemia, unspecified] Onset: 10-17-2021 Episodic Diseases of white blood cells (4 sources) Leukocytosis; Translations: [Elevated white blood cell count, unspecified] Onset: 03-04-2023 02-08-2023 Chronic Disorders of lipid metabolism (20 sources) Mixed hyperlipidemia; Translations: [Mixed hyperlipidemia] Onset: 10-17-2021 Chronic Esophageal disorders (18 sources) Acid reflux; Translations: [Obstruction of esophagus] Onset: 12-10-2022 04-20-2018 Chronic Essential hypertension (20 sources) Essential hypertension; Translations: [Essential (primary) hypertension] Onset: 10-17-2021 Chronic Genitourinary symptoms and ill-defined conditions (17 sources) Female stress incontinence 07-23-2013 Chronic Genitourinary symptoms and ill-defined conditions (17 sources) Blood in urine 07-23-2013 Episodic Glaucoma (18 sources) Glaucoma; Translations: [Unspecified glaucoma] Onset: 07-31-2022 04-20-2018 Chronic Hypertension with complications and secondary hypertension (1 source) Hypertensive heart disease with heart failure; Translations: [HTN HEART DISEASE W/HEART FAIL] Onset: 06-18-2022 Chronic Immunizations and screening for infectious disease (2 sources) Vaccination given; Translations: [Encounter for immunization] Onset: 01-22-2022 Episodic Nonspecific chest pain (6 sources) Chest pain; Translations: [Other chest pain] Onset: 10-17-2021 Episodic Occlusion or stenosis of precerebral arteries (17 sources) Carotid artery stenosis 11-27-2018 Chronic Other aftercare (1 source) Long-term current use of drug therapy; Translations: [Other terminal operations manager (current) drug therapy] Onset: 07-31-2022 Episodic Other circulatory disease (20 sources) History of transient ischemic attack; Translations: [Personal history of transient ischemic attack (TIA), and cerebral infarction without residual deficits] Onset: 05-01-2022 04-03-2011 Episodic Other circulatory disease (9 sources) History of cerebrovascular accident 05-01-2022 Episodic Other circulatory disease (1 source) Disorder of respiratory system; Translations: [Other specified symptoms and signs involving the circulatory and respiratory systems] Onset: 12-10-2022 Episodic Other gastrointestinal disorders (16 sources) Dysphagia; Translations: [Dysphagia, unspecified] Onset: 01-30-2022 Episodic Other hematologic conditions (10 sources) History of anemia 04-03-2011 Episodic Other inflammatory condition of skin (17 sources) Intertrigo 06-05-2017 Episodic Other injuries and conditions due to external causes (2 sources) Angioedema of tongue; Translations: [Angioneurotic edema, initial encounter] Onset: 06-17-2022 Episodic Other injuries and conditions due to external causes (2 sources) Angioedema due to angiotensin-convertin g-enzyme inhibitor; Translations: [Angioneurotic edema, initial encounter] Onset: 06-17-2022 Episodic Other liver diseases (20 sources) Alkaline phosphatase raised 03-30-2020 Episodic Other liver diseases (3 sources) Enzyme level - finding; Translations: [Abnormal levels of other serum enzymes] Onset: 01-30-2022 Episodic Other lower respiratory disease (2 sources) Solitary nodule of lung; Translations: [Solitary pulmonary nodule] Onset: 06-19-2022 Episodic Other non-traumatic joint disorders (2 sources) Shoulder joint pain; Translations: [Pain in unspecified shoulder] Onset: 10-17-2021 Episodic Other non-traumatic joint disorders (17 sources) Shoulder pain 05-15-2021 Episodic Other nutritional; endocrine; and metabolic disorders (10 sources) Overweight in adulthood with body mass index of 25 or more but less than 30; Translations: [Body mass index (BMI) 25.0-25.9, adult] Onset: 10-17-2021 Episodic Other nutritional; endocrine; and metabolic disorders (4 sources) Overweight; Translations: [Overweight] Onset: 11-22-2022 Episodic Other skin disorders (7 sources) Lesion of skin of face 07-31-2022 Episodic Other upper respiratory disease (17 sources) 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 Paralysis (17 sources) 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 Residual codes; unclassified (19 sources) Insomnia; Translations: [Insomnia, unspecified] Onset: 05-01-2022 06-05-2017 Episodic Residual codes; unclassified (17 sources) Swelling - edema - symptom 06-05-2017 Episodic Residual codes; unclassified (1 source) Body mass index 20-24 - normal; Translations: [Body mass index (BMI) 24.0-24.9, adult] Onset: 07-31-2022 Episodic Spondylosis; intervertebral disc disorders; other back problems (20 sources) Neck pain; Translations: [Cervicalgia] Onset: 10-17-2021 Episodic Unclassified (5 sources) Non-smoker 2020 Unclassified (17 sources) Seborrheic keratosis 03-30-2020 Unclassified (1 source) Body mass index 20-24 - normal 07-31-2022 Unclassified (7 sources) Pain of knee region 07-31-2022 Urinary tract infections (5 sources) Acute urinary tract infection 01-27-2019 Episodic Viral infection (6 sources) Herpes zoster without complication; Translations: [Zoster without complications] Onset: 02-07-2023 Episodic Viral infection (1 source) COVID-19; Translations: [COVID-19] Onset: 06-18-2022 Past or Other Problems Problem Classification Problem Date Documented Date Episodic/Chronic E Codes: Adverse effects of medical drugs (3 sources) Adverse effect of angiotensin-converti ng-enzyme inhibitors, initial encounter; Translations: [Adverse effect of angiotensin-converti ng-enzyme inhibitors, initial encounter] Onset: 06-17-2022 Episodic Non-Hodgkin`s lymphoma (1 source) Personal history of non-Hodgkin lymphomas; Translations: [PERSONAL HX NON-HODGKIN LYMPHOMAS] Onset: 06-18-2022 Episodic Other aftercare (1 source) USP (current) use of aspirin; Translations: [EMT DISPATCHER CURRENT USE OF ASPIRIN] Onset: 06-18-2022 Episodic Other aftercare (1 source) Other terminal operations manager (current) drug therapy; Translations: [OTH HALFWAY CURRENT DRUG THERAPY] Onset: 06-18-2022 Episodic Other circulatory disease (1 source) Personal history of transient ischemic attack (TIA), and cerebral infarction without residual deficits; Translations: [PERS HX TIA AND CI NO RESID DEFICIT] Onset: 06-18-2022 Episodic Other injuries and conditions due to external causes (6 sources) Angioneurotic edema, initial encounter; Translations: [Angioneurotic edema, initial encounter] Onset: 06-16-2022 Episodic Unclassified (7 sources) blood clots( Confirmed ) 12-04-2009 Unclassified (10 sources) blood clots 12-04-2009 Unclassified (1 source) Patient counseled; Translations: [Encounter for immunization safety counseling] Onset: 04-11-2023 Results Test Name Value Interpretation Reference Range Facil ity Physician Referralon 023 Physician Referral [id number] 00TIFF [facility] Fdc Recordson 05-01 Fdc Records [id number] 0TIFF [facility] Fdc Recordson 04-29 Fdc Records [id number] 0TIFF [facility] Fdc Records [id number] 0TIFF [facility] ED Note-Physicianon 04-17-20 ED Note-Physician [id number] 0TIFF [facility] Consent for Procedure/Surger yon 04-16-2023 Consent for Procedure/Surgery [id number] 0TIFF [facility] Ambulatory Visit Summaryon 1 06-16-2022 Ambulatory Visit Summary PIEDAD ALATORRE :1935 Visit Date:04/15/2023 Ambulatory Visit Instructions Your Diagnosis Anemia Large hiatal hernia Change in bowel habits Dysphagia Elevated alkaline phosphatase level History of colon polyps These Are Your Goals B/P will be in normal range for patient Interventions: Low impact exercises: 2 arm and 2 legs exercises- 10 repetitions daily of each or walk in hallway - Progressing Low sodium diet - Progressing Medication Compliance - Progressing Rview HTN education booklet with patient - Done Take B/p weekly and record - Progressing Lipid panel will be in normal range Interventions: 3 servings of fresh fruit and vegetables daily - Progressing Avoid fried food and food high in saturated fats - Progressing Low impact exercise- see above - Progressing Medication Compliance - Progressing Prevent any acute episodes of choking Interventions: Chew food thoroughly and eat slowly - Progressing Cut food in small pieces - Progressing Drink fluid between bites - Progressing Follow up with GI for esophageal dilation Medication Compliance - Progressing Sit upright after meals or eating for 30 -45 minutes - Progressing Your Care Team Attending Physician - Miladis BERG, Brunilda A Primary Care Physician - Deonte ROSARIO MD This Is Your Medications List Contact prescribing physician if questions or concerns acetaminophen amlodipine (amLODIPine 5 mg Tab) aspirin (aspirin 81 mg oral tablet) atorvastatin (atorvastatin 80 mg Tab) carvedilol (carvedilol 25 mg Tab) clonidine (cloNIDine 0.1 mg tab) cycloSPORINE ophthalmic (Cequa 0.09% ophthalmic solution) docusate (docusate sodium 100 mg Cap) ferrous sulfate (ferrous sulfate 325 mg oral enteric coated tablet) ipratropium nasal (Atrovent 0.03% [place]) isosorbide mononitrate (isosorbide mononitrate 30 mg ER Tab) nitroglycerin (nitroglycerin 0.4 mg sublingual Tab) ocular lubricant (Refresh Optive) ondansetron (ondansetron 4 mg Tab) pantoprazole (pantoprazole 40 mg Oral EC Tab) polyethylene glycol 3350 (MiraLax) spironolactone (spironolactone 25 mg Tab) ticagrelor (ticagrelor 90 mg oral tablet) trazodone (traZODONE 50 mg Tab) Procedures Performed Colonoscopy (03/18/2022), Colonoscopy (03/18/2022), Radiofrequency ablation of medial branch of cervical nerve using fluoroscopic guidance (08/24/2018), cervical facet Medial Branch Block (05/25/2018), Cervical Facet Medial Branch Block (04/20/2018), lumbar facet medial branch block (11/24/2017), Radiofrequency ablation of medial branch of lumbar nerve using fluoroscopic guidance (09/29/2017), Lumbar Facet Medial Branch Block (09/08/2017), Injection of facet joint using fluoroscopic guidance (06/23/2017), Angioplasty (09/09/2014), Colonoscopy (10/10/2010), Heart Cath. (05/12/1994), Angioplasty of left leg artery, Appendectomy, Bunionectomy, Carotid angiogram, Carotid endarterectomy, Cataract extraction, D&C - Dilatation and curettage, EGD, Esophagogastroduodenos copy, kidney artery left stent placement, Removal of ovarian cyst, Stents, bilateral legs. Discharge Vitals Temperature (Temporal Artery) 36.1 ?C Heart Rate (Peripheral) 74 Blood Pressure 124/73 Height 157 cm Height 62 in Weight 62.8 kg Weight 138.16 lb BMI 25.48 What to do next Scheduled Follow-Up Appointments Friday 12:00 PM EST With: PAULO HINOJOSA, Deonte Turpin Where: [facility] [address], [place] [address]- \.br\ You Need to Schedule the Following Appointments\.br\ Follow Up with Brunilda Redding CNP When: Within 1 to 2 weeks\.br\ Comments:\.br\ Following Colonoscopy.\.br\ Where:\.br\ You Need to Complete the Following\.br\ CBC w/ Auto Diff, Blood, Routine collect, 04/15/23, Order for future visit, Lab Collect, Anemia, Not Required, Print Label By Order Location\.br\ GGT, Blood, Routine collect, 04/15/23, Order for future visit, Lab Collect, Elevated alkaline phosphatase level, Not Required, Print Label By Order Location\.br\ Hepatic Function Panel, Blood, Routine collect, 04/15/23, Order for future visit, Lab Collect, Elevated alkaline phosphatase level, Not Required, Print Label By Order Location\.br\ US Liver, 04/15/23, Routine, Order for future visit, Transport Mode: Wheelchair, Reason: Elevated LFTs, No, Elevated alkaline phosphatase level, pp_set_radiology_ subspecialty, Not Required, [facility]\.br\ Medications\.br\ What How Much When Why Instructions\.br\ Unchanged acetaminophen 325 Milligram By Mouth Every 6 hours as needed for as needed for pain Contact prescribing physician if questions or concerns \.br\ Unchanged amlodipine (amLODIPine 5 mg Tab) 1 Tablets By Mouth Every day Contact prescribing physician if questions or concerns \.br\ Unchanged aspirin (aspirin 81 mg oral tablet) 1 Tablets By Mouth Every day Contact prescribing physician if questions or concerns \.br\ Unchanged atorvastatin (atorvastatin 80 mg Tab) 1 Tablets By Mouth At bedtime Contact prescribing physician if questions or concerns \.br\ Unchanged carvedilol (carvedilol 25 mg Tab) 1 Tablets By Mouth 2 times a day Contact prescribing physician if questions or concerns \.br\ Unchanged clonidine (cloNIDine 0.1 mg tab) 0.1 Milligram By Mouth 2 times a day Contact prescribing physician if questions or concerns \.br\ Unchanged cycloSPORINE ophthalmic (Cequa 0.09% ophthalmic solution) Both eyes Every 12 hours Contact prescribing physician if questions or concerns \.br\ Unchanged docusate (docusate sodium 100 mg Cap) 1 Capsules By Mouth 2 times a day as needed for for constipation Contact prescribing physician if questions or concerns \.br\ Unchanged ferrous sulfate (ferrous sulfate 325 mg oral enteric coated tablet) 1 Tablets By Mouth Every day Anemia Contact prescribing physician if questions or concerns \.br\ Unchanged ipratropium nasal (Atrovent 0.03% [place]) 2 Sprays Nasal Inhalation 3 times a day as needed for Other (see comment) Vasomotor rhinitis Contact prescribing physician if questions or concerns \.br\ Unchanged isosorbide mononitrate (isosorbide mononitrate 30 mg ER Tab) 1 Tablets By Mouth 2 times a day Contact prescribing physician if questions or concerns \.br\ Unchanged nitroglycerin (nitroglycerin 0.4 mg sublingual Tab) 1 Tablets Sublingual Every 5 minutes as needed for for chest pain Contact prescribing physician if questions or concerns \.br\ Unchanged ocular lubricant (Refresh Optive) 1 Drops Both eyes 3 times a day Contact prescribing physician if questions or concerns \.br\ Unchanged ondansetron (ondansetron 4 mg Tab) 1 Tablets By Mouth Every 8 hours Contact prescribing physician if questions or concerns \.br\ Unchanged pantoprazole (pantoprazole 40 mg Oral EC Tab) 40 Milligram By Mouth Every day Contact prescribing physician if questions or concerns \.br\ Unchanged polyethylene glycol 3350 (MiraLax) 17 Gram By Mouth Every day Contact prescribing physician if questions or concerns \.br\ Unchanged spironolactone (spironolactone 25 mg Tab) 1 Tablets By Mouth Every day HTN - Hypertension Contact prescribing physician if questions or concerns \.br\ Unchanged ticagrelor (ticagrelor 90 mg oral tablet) 1 Tablets By Mouth 2 times a day Contact prescribing physician if questions or concerns \.br\ Unchanged trazodone (traZODONE 50 mg Tab) 1 Tablets By Mouth Once a day (at bedtime) Insomnia Contact prescribing physician if questions or concerns \.br\ Allergies\.br\ lisinopril (Angioedema)\.br\ Latex (Rash)\.br\ Skelaxin (SOB - Shortness of breath)\.br\ penicillin (Rash, SOB - Shortness of breath)\.br\ shellfish\.br\ Problems\.br\ Ongoing - Any problem that you are currently receiving treatment for.\.br\ Anemia\.br\ Anxiety disorder\.br\ Asthma\.br\ BMI 25.0-25.9,adult\. br\ CAD (coronary artery disease)\.br\ Carotid artery stenosis\.br\ Change in bowel habits\.br\ COPD type B\.br\ Dysphagia\.br\ Edema\.br\ Elevated alkaline phosphatase level\.br\ Female stress incontinence\.br\ History of colon polyps\.br\ History of CVA in adulthood\.br\ HTN - Hypertension\.br\ Hyperglycemia\.br \ Hyperlipidemia\.b r\ Insomnia\.br\ Intertrigo\.br\ Knee pain, right\.br\ Large hiatal hernia\.br\ Leg weakness\.br\ Leukocytosis\.br\ Lumbar radiculopathy\.br \ Neck pain\.br\ Seborrheic keratoses\.br\ Shingles rash\.br\ Shoulder pain\.br\ Skin lesion of face\.br\ Stage 3 chronic kidney disease\.br\ Vasomotor rhinitis\.br\ Historical - Any problem that you are no longer receiving treatment for.\.br\ Acid reflux\.br\ Appendectomy\.br\ blood clots\.br\ Cardiac arrest\.br\ COPD\.br\ Glaucoma\.br\ H/O: TIA\.br\ HEMATURIA\.br\ TX - myocardial infarction\.br\ STEMI - ST elevation myocardial infarction\.br\ Stroke\.br\ Patient Survey\.br\ You may receive a survey via text or e-mail asking about your office visit. Please share your experience with us by completing your survey. We appreciate your feedback and thank you for choosing us for your care.\.br\ Education Materials\.br\ Anemia\.br\ \.br\ Anemia is a condition in which there are not enough red blood cells or hemoglobin in the blood. Hemoglobin is a substance in red blood cells that carries oxygen.\.br\ When you do not have enough red blood cells or hemoglobin (are anemic), your body cannot get enough oxygen, and your organs may not work properly. As a result, you may feel very tired or have other problems.\.br\ What are the causes?\.br\ Common causes of anemia include:\.br\ ? \.br\ Excessive bleeding. Anemia can be caused by excessive bleeding inside or outside the body, including bleeding from the intestines or from heavy menstrual periods in females.\.br\ ? \.br\ Poor nutrition.\.br\ ? \.br\ Long-lasting (chronic) kidney, thyroid, and liver disease.\.br\ ? \.br\ Bone marrow disorders, spleen problems, and blood disorders.\.br\ ? \.br\ Cancer and treatments for cancer.\.br\ ? \.br\ Human immunodeficiency virus (HIV) and acquired immunodeficiency syndrome (AIDS).\.br\ ? \.br\ Infections, medicines, and autoimmune disorders that destroy red blood cells.\.br\ What are the signs or symptoms?\.br\ Symptoms of this condition include:\.br\ ? \.br\ Minor weakness.\.br\ ? \.br\ Dizziness.\.br\ ? \.br\ Headache, or difficulties concentrating and sleeping.\.br\ ? \.br\ Heartbeats that feel irregular or faster than normal (palpitations).\. br\ ? \.br\ Shortness of breath, especially with exercise.\.br\ ? \.br\ Pale skin, lips, and nails, or cold hands and feet.\.br\ ? \.br\ Upset stomach (indigestion) and nausea.\.br\ Symptoms may occur suddenly or develop slowly. If your anemia is mild, you may not have symptoms.\.br\ How is this diagnosed?\.br\ This condition is diagnosed based on blood tests, your medical history, and a physical exam. In some cases, a test may be needed in which cells are removed from the soft tissue inside of a bone and looked at under a microscope (bone marrow biops [facility] Gastroenterology Office/Clin ic Noteon 04-15-2023 Gastroenterology Office/Clinic Note Chief Complaint ER follow up. HPI Staff This is a 87 year old female who presents today for a follow up from [facility] ER on 03/26/23. Patient was advised to go to ED for anemia per Dr Rosario. Patient was seen by Dr Peres for office visit 12/10/22 and had EGD 02/10/23. History of Present Illness Patient is a 87-year-old female who presents for further evaluation following ED visit at outside facility?[facility]. Review of outside record from [facility] indicated patient was evaluated 03/26/2023 and had low RBC of 2.92, H&H of 8.4/27.3, elevated BUN of 27, elevated creatinine of 1.46, elevated alkaline phosphatase of 124. Note indicated patient is from skilled nursing per [facility]. Previous labs 03/22/23 revealed low H/H of 7.4/24.3. Review of record indicates patient had previous EGD 02/10/[address] Peres that revealed very large hiatal hernia, mild Schatzki's ring?dilated, lesions in stomach, normal duodenum, no biopsies. Previous colonoscopy 09/2018 revealed 5mm TA removed from sigmoid colon, hemorrhoids. Previous colonoscopy 03/2022 to further evaluate anemia unable to be completed related to poor prep. Patient was previously evaluated by Dr. Peres 12/2022 for dysphagia and elevated liver enzyme. Patient was ordered EGD and mentioned about ordering GGT to further evaluate elevated liver enzyme- not ordered. Family history of colon cancer: Denies. Family history of colon polyps: Denies. Personal history of colon cancer: Denies. Personal history of colon polyps: Yes, see above. Takes aspirin daily. During today's visit, patient reports she is doing well. Is having difficulty swallowing solids and liquids that has improved however, is still occurring daily. Is having 3-4 loose/mushy stools daily over the last year that is a change in bowel habits for her. Is taking oral iron supplementation and has black stools since starting oral iron supplementation. Denies bloody stools, nausea/vomiting, fevers/chills, and denies unintentional weight loss. Denies having any other GI complaints. Review of Systems PHQ Score Initial Depression Screen Score: 0 SCORE ROS - Provider Constitutional: no fever, no chills. Skin: no Jaundice. ENMT: Improved dysphagia. Respiratory: no shortness of breath. Cardiovascular: no chest pain. Gastrointestinal: no nausea, no vomiting, no diarrhea, no GI bleeding. Physical Exam Vitals & Measurements T: 36.1 ?C(Temporal Artery) HR: 74(Peripheral) BP: 124/73 HT: 62 in HT: 157 cm WT: 62.8 kg WT: 138.16 lb BMI: 25.48 General: Well developed, well nourished, in no acute distress Head: Normocephalic/atraumat ic Lungs: Normal respiratory effort and clear to auscultation Cardio: Regular rate and rhythm, normal S1 and S2, no murmur, no rub Abdomen: Soft, non-distended, non-tender. Normoactive bowel sounds present in all 4 abdominal quadrants, bilaterally. Mental Status: Alert and oriented x3. Normal mood and affect Assessment/Plan 1. Anemia (D64.9: Anemia, unspecified) Review of outside record from [facility] indicated patient was evaluated 03/26/2023 and had H&H of 8.4/27.3. Review of record indicates patient had previous EGD 02/10/[address] Peres that revealed very large hiatal hernia, mild Schatzki's ring?dilated, lesions in stomach, normal duodenum, no biopsies. Previous colonoscopy 09/2018 revealed 5mm TA removed from sigmoid colon, hemorrhoids. Previous colonoscopy 03/2022 to further evaluate anemia unable to be completed related to poor prep. Discussed referral to [facility] regarding large HH as large HH may be contributing factor to her anemia- would like to think about referral prior to proceeding. Ordered repeat CBC. Ordered Colonoscopy to further evaluate anemia. Will request hold time recommendations regarding Brilinta from prescribing provider prior to colonoscopy. Ordered: CBC w/ Auto Diff Colonoscopy (Hospital Procedure) 2. Large hiatal hernia (K44.9: Diaphragmatic hernia without obstruction or gangrene) Review of outside record from [facility] indicated patient was evaluated 03/26/2023 and had H&H of 8.4/27.3, elevated BUN of 27, elevated creatinine of 1.46, elevated alkaline phosphatase of 124. Review of record indicates patient had previous EGD 02/10/[address] Peres that revealed very large hiatal hernia, mild Schatzki's ring?dilated, lesions in stomach, normal duodenum, no biopsies. Discussed referral to [facility] regarding large HH as large HH may be contributing factor to her anemia- patient would like to think about referral prior to proceeding. 3. Change in bowel habits (R19.4: Change in bowel habit) Is having change in bowel habits with loose stools over the last year. Having 3-4 BMs daily. Previous colonoscopy 09/2018 revealed 5mm TA removed from sigmoid colon, hemorrhoids. Previous colonoscopy 03/2022 to further evaluate anemia unable to be completed related to poor prep. Discussed colonoscopy and benefits vs. r (more content not included)... Normal [facility] Comment on above: Result Comment: Elec tronically Signed By: Brunilda Redding CNP\.michael\Date and Time Signed: 04/15/23 14:32 EST Fdc Recordson 04-15 Fdc Records [id number] 0TIFF Normal [facility] Patient Educationon 04-15-20 Patient Education Hematology Anemia Anemia is a condition in which there are not enough red blood cells or hemoglobin in the blood. Hemoglobin is a substance in red blood cells that carries oxygen. When you do not have enough red blood cells or hemoglobin (are anemic), your body cannot get enough oxygen, and your organs may not work properly. As a result, you may feel very tired or have other problems. What are the causes? Common causes of anemia include: ? Excessive bleeding. Anemia can be caused by excessive bleeding inside or outside the body, including bleeding from the intestines or from heavy menstrual periods in females. ? Poor nutrition. ? Long-lasting (chronic) kidney, thyroid, and liver disease. ? Bone marrow disorders, spleen problems, and blood disorders. ? Cancer and treatments for cancer. ? Human immunodeficiency virus (HIV) and acquired immunodeficiency syndrome (AIDS). ? Infections, medicines, and autoimmune disorders that destroy red blood cells. What are the signs or symptoms? Symptoms of this condition include: ? Minor weakness. ? Dizziness. ? Headache, or difficulties concentrating and sleeping. ? Heartbeats that feel irregular or faster than normal (palpitations). ? Shortness of breath, especially with exercise. ? Pale skin, lips, and nails, or cold hands and feet. ? Upset stomach (indigestion) and nausea. Symptoms may occur suddenly or develop slowly. If your anemia is mild, you may not have symptoms. How is this diagnosed? This condition is diagnosed based on blood tests, your medical history, and a physical exam. In some cases, a test may be needed in which cells are removed from the soft tissue inside of a bone and looked at under a microscope (bone marrow biopsy). Your health care provider may also check your stool (feces) for blood and may do more testing to look for the cause of your bleeding. Other tests may include: ? Imaging tests, such as a CT scan or MRI. ? A procedure to see inside your esophagus and stomach (endoscopy). The esophagus is the part of the body that moves food from your mouth to your stomach. ? A procedure to see inside your colon and rectum (colonoscopy). How is this treated? Treatment for this condition depends on the cause. If you continue to lose a lot of blood, you may need to be treated at a hospital. Treatment may include: ? Taking supplements of iron, vitamin B12, or folic acid. ? Taking a hormone medicine (erythropoietin) that can help to stimulate red blood cell growth. ? Receiving donated blood through an IV (blood transfusion). This may be needed if you lose a lot of blood. ? Making changes to your diet. ? Having surgery to remove your spleen. Follow these instructions at home: ? Take quuj-xog-kumrgnh and prescription medicines only as told by your health care provider. ? Take supplements only as told by your health care provider. ? Follow any diet instructions that you were given by your health care provider. ? Keep all follow-up visits. Your health care provider will want to recheck your blood tests. Contact a health care provider if: ? You develop new bleeding anywhere in the body. ? You are very weak. Get help right away if: ? You are short of breath. ? You have pain in your abdomen or chest. ? You are dizzy or feel faint. ? You have trouble concentrating. ? You have bloody stools, black stools, or tarry stools. ? You vomit repeatedly or you vomit up blood. These symptoms may be an emergency. Get help right away. Call 911. ? Do not wait to see if the symptoms will go away. ? Do not drive yourself to the hospital. Summary ? Anemia is a condition in which you do not have enough red blood cells or enough of a substance in your red blood cells that carries oxygen. ? Symptoms may occur suddenly or develop slowly. ? If your anemia is mild, you may not have symptoms. ? This condition is diagnosed with blood tests, a medical history, and a physical exam. Other tests may be needed. ? Treatment for this condition depends on the cause of the anemia. This information is not intended to replace advice given to you by your health care provider. Make sure you discuss any questions you have with your health care provider. Document Revised: 07/22/2022 Document Reviewed: 07/22/2022 [employer] Patient Education ? 2022 [employer] [facility] Consent for Immunizationon 1 06-12-2022 Consent for Immunization [id number] 0TIFF [facility] Nurse Consultation Noteon Nurse Consultation Note Reason for Visit Patient here for shingles vaccine. Administered in right deltoid. Assessment/Plan 1. Vaccine counseling (Z71.85: Encounter for immunization safety counseling) 2. Need for shingles vaccine (Z23: Encounter for immunization) Medications acetaminophen, 325 mg, Oral, q6hr, PRN amLODIPine 5 mg Tab, 5 mg= 1 tab(s), Oral, Daily, 11 refills aspirin 81 mg oral tablet, 81 mg= 1 tab(s), Oral, Daily atorvastatin 80 mg Tab, 80 mg= 1 tab(s), Oral, Bedtime Atrovent 0.03% [place], 2 spray(s), Nasal, TID, PRN, 1 refills carvedilol 25 mg Tab, 25 mg= 1 tab(s), Oral, BID, 3 refills Cequa 0.09% ophthalmic solution, Eye-Both, q12hr cloNIDine 0.1 mg tab, 0.1 mg, Oral, BID, 3 refills docusate sodium 100 mg Cap, 100 mg= 1 cap(s), Oral, BID, PRN ferrous sulfate 325 mg oral enteric coated tablet, 325 mg= 1 tab(s), Oral, Daily, 5 refills isosorbide mononitrate 30 mg ER Tab, 30 mg= 1 tab(s), Oral, BID, 11 refills MiraLax, 17 gm, Oral, Daily nitroglycerin 0.4 mg sublingual Tab, 0.4 mg= 1 tab(s), SubLingual, q5min, PRN ondansetron 4 mg Tab, 4 mg= 1 tab(s), Oral, q8hr pantoprazole 40 mg Oral EC Tab, 40 mg, Oral, Daily, 3 refills Refresh Optive, 1 drop(s), Eye-Both, TID spironolactone 25 mg Tab, 25 mg= 1 tab(s), Oral, Daily, 5 refills ticagrelor 90 mg oral tablet, 90 mg= 1 tab(s), Oral, BID traZODONE 50 mg Tab, 50 mg= 1 tab(s), Oral, Once a day (at bedtime), 5 refills Allergies lisinopril (Angioedema) Latex (Rash) Skelaxin (SOB - Shortness of breath) penicillin (Rash, SOB - Shortness of breath) shellfish Immunizations Vaccine Date Status Comments zoster vaccine, inactivated 04/11/2023 Given influenza virus vaccine, inactivated 03/04/2023 Given SARS-CoV-2 (COVID-19) [id number] 02/28/2022 Recorded influenza virus vaccine, inactivated 01/22/2022 Given influenza virus vaccine, inactivated 01/2022 Recorded SARS-CoV-2 (COVID-19) mRNA BNT-162b2 vax 05/15/2021 Given pneumococcal 13-valent vaccine 03/13/2021 Given influenza virus vaccine, inactivated 03/13/2021 Given SARS-CoV-2 (COVID-19) mRNA BNT-162b2 vax 07/12/2020 Recorded Jackie pneumococcal 23-valent vaccine 06/22/2020 Recorded SARS-CoV-2 (COVID-19) mRNA BNT-162b2 vax 06/14/2020 Recorded Jackie canakinumab 05/25/2020 Recorded COVID 19 PFIZER SARS-CoV-2 (COVID-19) mRNA BNT-162b2 vax 05/25/2020 Recorded 2022-01-29: TPV80 influenza virus vaccine, inactivated 03/15/2020 Recorded influenza virus vaccine, inactivated 02/10/2020 Recorded influenza virus vaccine, inactivated 03/18/2019 Recorded influenza virus vaccine, live, trivalent 03/15/2019 Recorded influenza virus vaccine, inactivated 03/10/2018 Recorded influenza virus vaccine, inactivated 02/16/2016 Recorded pneumococcal 13-valent vaccine 02/16/2016 Recorded pneumococcal 13-valent vaccine 05/12/2014 Recorded pneumococcal 23-valent vaccine 01/21/2011 Given Other (see comment) Normal [facility] Fdc Recordson 04-11 Fdc Records [id number]#1.0 0TIFF Normal [facility] Lab Reportson 03-22-2023 Lab Reports [id number] 0TIFF Normal [facility] Fdc Recordson 03-18 Fdc Records [id number]#1.0 0TIFF [facility] Ambulatory Visit Summaryon 1 Ambulatory Visit Summary PIEDAD ALATORRE :1935 Visit Date:03/04/2023 Ambulatory Visit Instructions Your Diagnosis HTN - Hypertension Hyperlipidemia Hyperglycemia CAD (coronary artery disease) History of CVA in adulthood Stage 3 chronic kidney disease BMI 25.0-25.9,adult Anemia Leukocytosis Shingles rash Encounter for immunization These Are Your Goals B/P will be in normal range for patient Interventions: Low impact exercises: 2 arm and 2 legs exercises- 10 repetitions daily of each or walk in hallway - Progressing Low sodium diet - Progressing Medication Compliance - Progressing Rview HTN education booklet with patient - Done Take B/p weekly and record - Progressing Lipid panel will be in normal range Interventions: 3 servings of fresh fruit and vegetables daily - Progressing Avoid fried food and food high in saturated fats - Progressing Low impact exercise- see above - Progressing Medication Compliance - Progressing Prevent any acute episodes of choking Interventions: Chew food thoroughly and eat slowly - Progressing Cut food in small pieces - Progressing Drink fluid between bites - Progressing Follow up with GI for esophageal dilation Medication Compliance - Progressing Sit upright after meals or eating for 30 -45 minutes - Progressing Your Care Team Attending Physician - Deonte ROSARIO MD Primary Care Physician - Deonte ROSARIO MD This Is Your Medications List acetaminophen amlodipine (amLODIPine 5 mg Tab) aspirin (aspirin 81 mg oral tablet) atorvastatin (atorvastatin 80 mg Tab) carvedilol (carvedilol 25 mg Tab) clonidine (cloNIDine 0.1 mg tab) cycloSPORINE ophthalmic (Cequa 0.09% ophthalmic solution) docusate (docusate sodium 100 mg Cap) ferrous sulfate (ferrous sulfate 325 mg oral enteric coated tablet) ipratropium nasal (Atrovent 0.03% [place]) isosorbide mononitrate (isosorbide mononitrate 30 mg ER Tab) nitroglycerin (nitroglycerin 0.4 mg sublingual Tab) ocular lubricant (Refresh Optive) ondansetron (ondansetron 4 mg Tab) pantoprazole (pantoprazole 40 mg Oral EC Tab) polyethylene glycol 3350 (MiraLax) spironolactone (spironolactone 25 mg Tab) ticagrelor (ticagrelor 90 mg oral tablet) trazodone (traZODONE 50 mg Tab) Procedures Performed Colonoscopy (03/18/2022), Colonoscopy (03/18/2022), Radiofrequency ablation of medial branch of cervical nerve using fluoroscopic guidance (08/24/2018), cervical facet Medial Branch Block (05/25/2018), Cervical Facet Medial Branch Block (04/20/2018), lumbar facet medial branch block (11/24/2017), Radiofrequency ablation of medial branch of lumbar nerve using fluoroscopic guidance (09/29/2017), Lumbar Facet Medial Branch Block (09/08/2017), Injection of facet joint using fluoroscopic guidance (06/23/2017), Angioplasty (09/09/2014), Colonoscopy (10/10/2010), Heart Cath. (05/12/1994), Angioplasty of left leg artery, Appendectomy, Bunionectomy, Carotid angiogram, Carotid endarterectomy, Cataract extraction, D&C - Dilatation and curettage, EGD, Esophagogastroduodenos copy, kidney artery left stent placement, Removal of ovarian cyst, Stents, bilateral legs. Discharge Vitals Heart Rate (Peripheral) 76 Blood Pressure 142/78 Height 157 cm Height 62 in Weight 63.2 kg Weight 139.04 lb BMI 25.64 What to do next Scheduled Follow-Up Appointments Friday 9:40 AM EST With: Where: [facility] Invalid Interpretation Code [address], [place] [address]- \.br\ Friday 1:00 PM EDT \.br\ With:\.br\ Where: [facility] Consent for Flu Vaccineon Consent for Flu Vaccine [id number]#1.0 0TIFF Normal [facility] Office/Clini c Noteon 03-04-2023 Family Medicine Office/Clinic Note Chief Complaint 3 month follow up History of Present Illness Here for med follow up. She is feeling ok. Recovering from Shingles. She had an EGD and dilation by GI. Did not have colonoscopy. She is anemic. Also has CKD Her WBC was high. She denies f/c/s. She c/o dry eyes. Review of Systems PHQ Score Initial Depression Screen Score: 0 Physical Exam Vitals & Measurements HR: 76(Peripheral) BP: 142/78 SpO2: 97% HT: 62 in HT: 157 cm WT: 63.2 kg WT: 139.04 lb BMI: 25.64 General: Well developed, well nourished, in no acute distress Eyes: _EOMI, PERRL Ears: TM clear, grossly normal hearing Nose: not addressed Mouth: MMM. Oropharynx and posterior pharynx without lesions or exudates. Tongue WNL Neck: Neck supple. No lymphadenopathy. Trachea midline. No thyroid, masses, tenderness, or enlargement noted. No bruit. Lungs: Normal respiratory effort and clear to auscultation Cardio: Regular rate and rhythm, normal S1 and S2, no murmur, no rub Abdomen: Soft, non-distended, non-tender Musculoskeletal: _ambulates with cane Extremity: No clubbing, cyanosis or edema. Neurologic: CN 2-12 intact, no focal motor or sensory defects noted. Skin: No rashes, ulcerations, or suspicious lesions Mental Status: Alert and oriented x3. Normal mood and affect Assessment/Plan 1. HTN - Hypertension (I10: Essential (primary) hypertension) stay on amlodipine, carvedilol, spironolactone Ordered: Body Mass Index (BMI) documented 3008F Current tobacco non-user 1036F Depression Screening Negative 3352F Most recent diastolic blood pressure <80 mm Hg 3078F Most recent systolic blood pressure >= 140 mm Hg 3077F Patient screen for fall risk: no falls in last year or 1 fall with no injury in last year 1101F 2. Hyperlipidemia (E78.2: Mixed hyperlipidemia) stay on atorvastatin Ordered: Body Mass Index (BMI) documented 3008F Current tobacco non-user 1036F Depression Screening Negative 3352F Lipid Panel Most recent diastolic blood pressure <80 mm Hg 3078F Most recent systolic blood pressure >= 140 mm Hg 3077F Patient screen for fall risk: no falls in last year or 1 fall with no injury in last year 1101F 3. Hyperglycemia (R73.9: Hyperglycemia, unspecified) Ordered: Body Mass Index (BMI) documented 3008F Current tobacco non-user 1036F Depression Screening Negative 3352F HgbA1c Most recent diastolic blood pressure <80 mm Hg 3078F Most recent systolic blood pressure >= 140 mm Hg 3077F Patient screen for fall risk: no falls in last year or 1 fall with no injury in last year 1101F 4. CAD (coronary artery disease) (I25.10: Atherosclerotic heart disease of [place] coronary artery without angina pectoris) Ordered: Body Mass Index (BMI) documented 3008F Current tobacco non-user 1036F Depression Screening Negative 3352F Most recent diastolic blood pressure <80 mm Hg 3078F Most recent systolic blood pressure >= 140 mm Hg 3077F Patient screen for fall risk: no falls in last year or 1 fall with no injury in last year 1101F 5. History of CVA in adulthood (Z86.73: Personal history of transient ischemic attack (TIA), and cerebral infarction without residual deficits) Ordered: Body Mass Index (BMI) documented 3008F Current tobacco non-user 1036F Depression Screening Negative 3352F Most recent diastolic blood pressure <80 mm Hg 3078F Most recent systolic blood pressure >= 140 mm Hg 3077F Patient screen for fall risk: no falls in last year or 1 fall with no injury in last year 1101F 6. Stage 3 chronic kidney disease (N18.3: Chronic kidney disease, stage 3 (moderate)) lab is stable Ordered: Body Mass Index (BMI) documented 3008F Comprehensive Metabolic Panel Current tobacco non-user 1036F Depression Screening Negative 3352F Most recent diastolic blood pressure <80 mm Hg 3078F Most recent systolic blood pressure >= 140 mm Hg 3077F Patient screen for fall risk: no falls in last year or 1 fall with no injury in last year 1101F 7. BMI 25.0-25.9,adult (Z68.25: Body mass index [BMI] 25.0-25.9, adult) The standard range for ages 18 and older is >=18.5 and < 25 kg/m2. Your BMI today was above this range, this falls in the overweight to obese category and there are medical benefits to weight loss. We can offer counselling, referral, and/or medical support in addressing this problem. Your BMI and weight management will be followed at subsequent visits. Ordered: Body Mass Index (BMI) documented 3008F Current tobacco non-user 1036F Depression Screening Negative 3352F Most recent diastolic blood pressure <80 mm Hg 3078F Most recent systolic blood pressure >= 140 mm Hg 3077F Patient screen for fall risk: no falls in last year or 1 fall with no injury in last year 1101F 8. Anemia (D64.9: Anemia, unspecified) She has seen GI. Had EGD. GI mentioned doing a colonoscopy but it was not done yet. Ordered: Body Mass Index (BMI) documented 3008F CBC w/ Auto Diff Current tobacco non-user (more content not included)... Normal [facility] Comment on above: Result Comment: Elec tronically Signed By: PAULO HINOJOSA, Deonte Turpin\.michael\Date and Time Signed: 03/04/23 13:28 EDT Patient Educationon 03-04-20 23 Patient Education Cardiovascular Hypertension, Adult Hypertension is another name for high blood pressure. High blood pressure forces your heart to work harder to pump blood. This can cause problems over time. There are two numbers in a blood pressure reading. There is a top number (systolic) over a bottom number (diastolic). It is best to have a blood pressure that is below 120/80. What are the causes? The cause of this condition is not known. Some other conditions can lead to high blood pressure. What increases the risk? Some lifestyle factors can make you more likely to develop high blood pressure: ? Smoking. ? Not getting enough exercise or physical activity. ? Being overweight. ? Having too much fat, sugar, calories, or salt (sodium) in your diet. ? Drinking too much alcohol. Other risk factors include: ? Having any of these conditions: ? Heart disease. ? Diabetes. ? High cholesterol. ? Kidney disease. ? Obstructive sleep apnea. ? Having a family history of high blood pressure and high cholesterol. ? Age. The risk increases with age. ? Stress. What are the signs or symptoms? High blood pressure may not cause symptoms. Very high blood pressure (hypertensive crisis) may cause: ? Headache. ? Fast or uneven heartbeats (palpitations). ? Shortness of breath. ? Nosebleed. ? Vomiting or feeling like you may vomit (nauseous). ? Changes in how you see. ? Very bad chest pain. ? Feeling dizzy. ? Seizures. How is this treated? ? This condition is treated by making healthy lifestyle changes, such as: ? Eating healthy foods. ? Exercising more. ? Drinking less alcohol. ? Your doctor may prescribe medicine if lifestyle changes do not help enough and if: ? Your top number is above 130. ? Your bottom number is above 80. ? Your personal target blood pressure may vary. Follow these instructions at home: Eating and drinking ? If told, follow the DASH eating plan. To follow this plan: ? Fill one half of your plate at each meal with fruits and vegetables. ? Fill one fourth of your plate at each meal with whole grains. Whole grains include whole-wheat pasta, brown rice, and whole-grain bread. ? Eat or drink low-fat dairy products, such as skim milk or low-fat yogurt. ? Fill one fourth of your plate at each meal with low-fat (lean) proteins. Low-fat proteins include fish, chicken without skin, eggs, beans, and tofu. ? Avoid fatty meat, cured and processed meat, or chicken with skin. ? Avoid pre-made or processed food. ? Limit the amount of salt in your diet to less than 1,500 mg each day. ? Do not drink alcohol if: ? Your doctor tells you not to drink. ? You are , may be , or are planning to become . ? If you drink alcohol: ? Limit how much you have to: ? 0?1 drink a day for women. ? 0?2 drinks a day for men. ? Know how much alcohol is in your drink. In the [place] one drink equals one 12 oz bottle of beer (355 mL), one 5 oz glass of wine (148 mL), or one 1? oz glass of hard liquor (44 mL). Lifestyle ? Work with your doctor to stay at a healthy weight or to lose weight. Ask your doctor what the best weight is for you. ? Get at least 30 minutes of exercise that causes your heart to beat faster (aerobic exercise) most days of the week. This may include walking, swimming, or biking. ? Get at least 30 minutes of exercise that strengthens your muscles (resistance exercise) at least 3 days a week. This may include lifting weights or doing Pilates. ? Do not smoke or use any products that contain nicotine or tobacco. If you need help quitting, ask your doctor. ? Check your blood pressure at home as told by your doctor. ? Keep all follow-up visits. Medicines ? Take forb-hct-tivbvrp and prescription medicines only as told by your doctor. Follow directions carefully. ? Do not skip doses of blood pressure medicine. The medicine does not work as well if you skip doses. Skipping doses also puts you at risk for problems. ? Ask your doctor about side effects or reactions to medicines that you should watch for. Contact a doctor if: ? You think you are having a reaction to the medicine you are taking. ? You have headaches that keep coming back. ? You feel dizzy. ? You have swelling in your ankles. ? You have trouble with your vision. Get help right away if: ? You get a very bad headache. ? You start to feel mixed up (confused). ? You feel weak or numb. ? You feel faint. ? You have very bad pain in your: ? Chest. ? Belly (abdomen). ? You vomit more than once. ? You have trouble breathing. These symptoms may be an emergency. Get help right away. Call 911. ? Do not wait to see if the symptoms will go away. ? Do not drive yourself to the hospital. Summary ? Hypertension is another name for high blood pressure. ? High blood pressure forces your heart to work harder to pump blood. ? For m (more content not included)... Normal [facility] Postoperative Documentson Postoperative Documents [id number]#1.0 0TIFF Normal [facility] Auth for Release of Medical Recordson 02-13-2023 Auth for Release of Medical Records [id number]#1. 00CD:127 [facility] Consent for Anesthesiaon Consent for Anesthesia [id number]#1. 00CD:127 [facility] Consent for Procedure/Surger yon 02-13-2023 Consent for Procedure/Surgery [id number]#1. 00CD:127 [facility] Discharge Instructionson Discharge Instructions [id number]#1. 00CD:127 [facility] H&P Updateon 02-13-2023 H&P Update [id number]#1. 00CD:127 [facility] Postoperative Documentson Postoperative Documents [id number]. 00TIFF [facility] Preoperative Documentson Preoperative Documents [id number]#1. 00CD:127 [facility] Provider Letteron 02-13-2023 Provider Letter February 13, 2023 PIEDAD ALATORRE [address] [place] [address] [place] [id number] : 1935 Dear Piedad Alatorre , We have been trying to reach you with no success. It is important that you return our call regarding your labs upon receiving this letter. Also, at the time of your call, please provide us with your current information. Thank you for your prompt attention to this matter. Sincerely, [facility] [address] [place] [address], [place] [address] [facility] Progress Note-Physicianon Progress Note-Physician Patient: PIEDAD ALATORRE Age: 87 years Sex: Female : 1935 Associated Diagnoses: None Author: MD Soria Ahmad F Postoperative Information Postoperative disposition: Postoperative disposition: To PACU. Optimetrix number: Optimetrix number [id number]. Anesthetic utilized: General. Health Status Allergies: Allergic Reactions (Selected) Severe Lisinopril- Angioedema. Severity Not Documented Latex- Rash. Penicillin- Sob - shortness of breath and rash. Shellfish- No reactions were documented. Skelaxin- Sob - shortness of breath. Physical Examination VS/Measurements Pain Assessment: Controlled. General: Awake, Alert, Appropriate. Respiratory: Adequate air exchange. Cardiovascular: Stable, Normal peripheral perfusion. Neurological: Normal sensory function, Normal motor function. Assessment Anesthetic outcome No anesthetic complications noted. Adequate pain relief. able to void without difficulty, able to ambulate with assist, tolerating PO intake, no N/V. Review / Management Condition: Stable. Plan Transfer/Discharge: Transfer/Discharge Discharge when meets criteria ( To home ). Normal [facility] Comment on above: Result Comment: Elec tronically Signed By: MD Soria Ahmad F\.br\Date and Time Signed: 02/12/23 12:09 EDT Progress Note-Physician Patient: PIEDAD ALATORRE Age: 87 years Sex: Female : 1935 Associated Diagnoses: None Author: MD Soria Ahmad F Preoperative Information Time patient last ate or drank:=== (npo 8 hours) Anesthesia history: Patient history: No prior anesthesia problems. Re-evaluation prior to induction: Completed, Initial evaluation reviewed. Review of Systems Respiratory: No shortness of breath. Cardiovascular: No chest pain. Hematology/Lymphatics: No bruising tendency, No bleeding tendency. Health Status Allergies: Allergic Reactions (All) Severe Lisinopril- Angioedema. Severity Not Documented Latex- Rash. Penicillin- Sob - shortness of breath and rash. Shellfish- No reactions were documented. Skelaxin- Sob - shortness of breath. Canceled/Inactive Reactions (All) Severity Not Documented Betadine- Rash. Contrast Dye- No reactions were documented. Current medications: (Selected) Prescriptions Prescribed Atrovent 0.03% [place]: 2 spray(s), Nasal, TID Other (see comment), 1 EA, Refill(s) 1, [facility], 157, cm, 11/26/20 10:30:00 EDT, Height/Length Dosing, 68, kg, 11/26/20 10:30:00 EDT, Weight Dosing amLODIPine 5 mg Tab: 5 mg = 1 tab(s), Oral, Daily, # 30 tab(s), Refills(s) 11 atorvastatin 80 mg Tab: 80 mg = 1 tab(s), Oral, Bedtime, # 90 tab(s), Refills(s) 0, Pharmacy: [facility], 157, cm, 11/26/20 10:30:00 EDT, Height/Length Dosing, 68, kg, 11/26/20 10:30:00 EDT, Weight Dosing carvedilol 25 mg Tab: 25 mg = 1 tab(s), Oral, BID, # 180 tab(s), Refills(s) 3, Pharmacy: [facility], 162, cm, 07/08/22 10:29:00 EST, Height/Length Dosing, 62.8, kg, 07/08/22 10:29:00 EST, Weight Dosing cloNIDine 0.1 mg tab: 0.1 mg, Oral, BID, # 180 tab(s), Refills(s) 3, Pharmacy: [facility], 157, cm, 12/22/19 12:26:00 EDT, Height/Length Dosing, 63.9, kg, 12/22/19 12:26:00 EDT, Weight Dosing ferrous sulfate 325 mg oral enteric coated tablet: 325 mg = 1 tab(s), Oral, Daily, # 30 tab(s), Refills(s) 5, Pharmacy: [facility], 157, cm, 07/03/21 16:18:00 EST, Height/Length Dosing, 61.5, kg, 07/03/21 16:18:00 EST, Weight Dosing isosorbide mononitrate 30 mg ER Tab: 30 mg = 1 tab(s), Oral, BID, # 60 tab(s), Refills(s) 11, Pharmacy: [facility], 157.5, cm, 07/31/22 13:30:00 EDT, Height/Length Dosing, 61, kg, 03/22/23 13:30:00 EDT, Weight Dosing pantoprazole 40 mg Oral EC Tab: 40 mg, Oral, Daily, # 90 tab(s), Refills(s) 3, Pharmacy: [facility], 157, cm, 03/30/20 14:40:00 EST, Height/Length Dosing, 66.2, kg, 03/30/20 14:40:00 EST, Weight Dosing spironolactone 25 mg Tab: 25 mg = 1 tab(s), Oral, Daily, # 30 tab(s), Refills(s) 5, Pharmacy: [facility], 157, cm, 03/13/21 13:41:00 EDT, Height/Length Dosing, 61, kg, 03/13/21 13:41:00 EDT, Weight Dosing traZODONE 50 mg Tab: 50 mg = 1 tab(s), Oral, Once a day (at bedtime), # 15 tab(s), Refills(s) 5, Pharmacy: [id number], 157, cm, 03/13/21 13:41:00 EDT, Height/Length Dosing, 61, kg, 03/13/21 13:41:00 EDT, Weight Dosing valacyclovir 1 g Tab: 1 gm = 1 tab(s), Oral, q8hr, X 7 day(s), # 21 tab(s), Refills(s) 0, Pharmacy: [facility], 157, cm, 02/07/23 13:05:00 EDT, Height/Length Dosing, 63.7, kg, 02/07/23 13:05:00 EDT, Weight Dosing Documented Medications Documented Cequa 0.09% ophthalmic solution: Eye-Both, q12hr, Refill(s) 0, Dry eyes MiraLax: 17 gm, Oral, Daily, Refill(s) 0, Constipation Refresh Optive: 1 drop(s), Eye-Both, TID, Refill(s) 0, Dry skin acetaminophen: 325 mg, Oral, q6hr, PRN as needed for pain, Refills(s) 0 aspirin 81 mg oral tablet: 81 mg = 1 tab(s), Oral, Daily, tab(s), Refills(s) 0, Prophylaxis docusate sodium 100 mg Cap: 100 mg = 1 cap(s), Oral, BID, PRN for constipation, # 20 cap(s), Refills(s) 0 nitroglycerin 0.4 mg sublingual Tab: 0.4 mg = 1 tab(s), SubLingual, q5min, PRN for chest pain, # 100 tab(s), Refills(s) 0 ondansetron 4 mg Tab: 4 mg = 1 tab(s), Oral, q8hr, Refills(s) 0, Nausea/Vomiting ticagrelor 90 mg oral tablet: 90 mg = 1 tab(s), Oral, BID, Refills(s) 0, Blood Thinner Problem list: All Problems HTN - Hypertension / SNOMED CT 5937206008 / Confirmed Hyperlipidemia / SNOMED CT 24545816 / Confirmed Anxiety disorder / SNOMED CT 681622162 / Confirmed Asthma / SNOMED CT 988561223 / Confirmed Female stress incontinence / SNOMED CT 518612710 / Confirmed Carotid artery stenosis / SNOMED CT 527037541 / Confirmed Lumbar radiculopathy / SNOMED CT 250201030 / Confirmed Intertrigo / SNOMED CT 85461006 / Confirmed Leg weakness / SNOMED CT 988356077 / Confirmed Edema / SNOMED CT 440911093 / Confirmed Hyperglycemia / SNOMED CT 364307169 / Confirmed Insomnia / SNOMED CT 574202703 / Confirmed Stage 3 chronic kidney disease / SNOMED CT 6542931050 / Confirmed Anemia / SNOMED CT 213793663 / Confirmed 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 Normal [facility] Comment on above: Result Comment: Elec tronically Signed By: MD Estella, Mike F\.br\Date and Time Signed: 02/12/23 12:06 EDT Main OR Intraoperative Recor don 02-11-2023 Main OR Intraoperative Record IntraOp Document Type FT Summary Primary Physician: Larisa HINOJOSA, Wolf Arana Finalized Date/Time: 02/11/23 11:04:58 Pt. Name: PIEDAD ALATORRE D.O.B./Sex: 1935 Female Med Rec #: [id number] Physician: Larisa HINOJOSA, Wolf Arana Financial #: [id number] Pt. Type: O Room/Bed: Endo 11/09 Admit/Disch: 02/10/23 12:34:27 - 02/10/23 23:59:59 Institution: Case Times FT Entry 1 Patient Times In Room 02/10/23 13:43:00 Out Room 02/10/23 13:56:00 Procedure Times Start 02/10/23 13:47:00 Stop 02/10/23 13:53:00 Anesthesia Times Start 02/10/23 13:43:00 Stop 02/10/23 13:56:00 Last Modified By: Ana Maria Ashley RN 02/10/23 13:56:48 General Comments: 02/11/23 Chart opened to review and send charges [facility] Case Attendance FT Entry 1 Entry 2 Entry 3 Case Attendee Carlos TAM, FIRST OFFICER AND FLIGHT INSTRUCTOR, [facility] Shreya Peres MD, Wolf Arana Role Performed FIRST OFFICER AND FLIGHT INSTRUCTOR Scrub - Primary Surgeon - Primary Time In 02/10/23 13:43:00 02/10/23 13:43:00 02/10/23 13:43:00 Time Out 02/10/23 13:56:00 02/10/23 13:56:00 02/10/23 13:56:00 Procedure EGD(.) EGD(.) EGD(.) Comments Dr. Soria is supervising Last Modified By: Tran Ramirez CST, RN, Ana Maria Ashley RN, Ana Maria Martel 02/11/23 11:04:07 02/10/23 13:56:52 02/10/23 13:56:52 Entry 4 Entry 5 Case Attendee Dion TOLBERT, Adele Nesbitt Role Performed Dump Motor Operator - Primary Staff - Other Time In 02/10/23 13:43:00 02/10/23 13:43:00 Time Out 02/10/23 13:56:00 02/10/23 13:56:00 Procedure EGD(.) EGD(.) Comments Last Modified By: Dion TOLBERT, Ana Maria Ashley RN, Ana Maria Martel 02/10/23 13:56:52 02/10/23 13:56:52 Perioperative Protocols FT Pre-Care Text: Implements protective measures prior to operative or invasive procedure, confirms identity before the operative or invasive procedure, verifies operative procedure, surgical site, and laterality Entry 1 Procedure(s) EGD(.) Patient Identity Birthday, ID Band Verified (select at Check, Patient least 2): Participation Consents / H and P Anesthesia Consent, Operative Site N/A Verified HandP, Surgery/Procedure Marking Verified Consent Surgical Site No Laterality Verified n/a Verified Procedure Verified Yes Correct Patient Yes Position Verified Availability Equipment, Medication Prep Dry n/a Verified (If Applicable) PreOp Antibiotic No Time Out Carlos TAM, KATIE, Queen Leonard Fernando, Shreya Chicas Sarmini MD, Dion Rahman RN, Jabier Higginbotham Kirstyn K Time Out Complete 02/10/23 13:46:00 Outcomes Met? Yes Last Modified By: Ana Maria Ashley RN 02/10/23 13:50:47 Post-Care Text: The patient is free from signs and symptoms of injury caused by extraneous objects Allergy Information FT Pre-Care Text: Verifies allergies Entry 1 Allergies Reviewed? Yes Allergies Reviewed Self/Patient With Outcomes Met? Yes Last Modified By: Ana Maria Ashley RN 02/10/23 13:50:54 Post-Care Text: The patient received appropriate medication(s) safely administered during the perioperative period Surgical Procedures FT Entry 1 Procedure Description Procedure EGD Modifiers . Surgeon Description EGD with esopgaeal balloon dialation 18-20. Primary Procedure Yes Primary Surgeon Larisa HINOJOSA, Wolf Arana Start 02/10/23 13:47:00 Stop 02/10/23 13:53:00 Anesthesia Type General Surgical Service Gastroenterology Wound Class 2 - Clean-Contaminated Last Modified By: Ana Maria Ashley RN 02/10/23 13:56:54 General Case Data FT Pre-Care Text: Classifies surgical wound, implements aseptic technique, initiates traffic control Entry 1 Case Information OR ENDO 1 FT Case Level Level 2 Wound Class 2 - Clean-Contaminated Specialty Gastroenterology ASA Class 4 Preop Diagnosis Globus sensation, Postop Same As Preop No schatzki's ring, dysphagia Postop Diagnosis Large hiatal hernia, Outcomes Met? Yes Schatzki's ring Last Modified By: Ana Maria Ashley RN 02/10/23 13:52:37 Post-Care Text: The patient is free from signs and symptoms of infection Skin Assessment (Pre Procedure) FT Pre-Care Text: Implements protective measures to prevent skin/ tissue injury due to thermal or mechanical sources Evaluates for signs and symptoms of physical injury to skin and tissue Entry 1 Skin Integrity Intact, [place], Warm, and Skin Abnormality No Dry Outcomes Met? Yes Last Modified By: Ana Maria Ashley RN 02/10/23 13:52:44 Post-Care Text: The patient is free from signs and symptoms of injury caused by extraneous objects Patient Positioning FT Pre-Care Text: Identifies physical alterations that require additional precautions for procedure-specific positioning, verifies presence of prosthetics or corrective devices, positions the patient, evaluates the patient for signs and symptoms of injury as a result of positioning Entry 1 Procedure EGD(.) Body Position Lateral, right side up Feet Uncrossed? Yes (more content not included)... Normal [facility] Consent for Treatmenton Consent for Treatment [id number] 0CD:127 Normal [facility] Endoscopic Procedure Report - Otheron 02-10-2023 Endoscopic Procedure Report - Other Patient: PIEDAD ALATORRE Age: 87 years Sex: Female : 1935 Associated Diagnoses: None Author: Wolf Peres MD Pre-Procedure Procedure Date 02/10/2023 13:56:00 . Procedure Type: Esophagogastroduodenos copy with dilation of esophagus with balloon less than 30 mm. Procedure provider Performed by Wolf Peres MD. Current history and physical Documented on chart. Informed Consent After discussing the rationale, risks and benefits, and alternatives to this procedure, the patient provided signed consent for the procedure. Pre-procedure diagnosis: Dysphagia . Medications Anticoagulant/antiplat elet Brilinta 7 days ago last dose. ASA Classification: Class III. . Monitoring: See anesthesia record. . Anticoagulation use: Procedure The procedure was performed in the hospital. See anesthesia record for sedation given during procedure. The patient was positioned starting in the left lateral decubitus position and with safety measures. Endoscope type used was an adult-size, introduced orally, advanced to the 3rd portion of the duodenum. No difficulty was encountered during the procedure. Views were excellent. The patient tolerated the procedure well. Extent reached: Duodenum third portion Findings 1. Very large hiatal hernia noted with majority of the stomach located above the diaphragm. 2. Mild Schatzki ring was noted at the GE junction. Dilation was performed using TTS balloon 18-19-20 mm, dilation was perfumed to 20 mm with moderate resistance. Moderate mucosal disruption was noted post dilation. No wall defect was seen afterwards. 2. No lesions noted in the stomach 3. Normal duodenum. Images Procedure images: Rec1_hd_video_2022__ _[id number].jpg Rec1_hd_video_2022__ _[id number].jpg Rec1_hd_video_2022__ _[id number].jpg Rec1_hd_video_2022__ [id number].jpg Rec1_hd_video_2022__ [id number].jpg Rec1_hd_video_2022__ [id number].jpg Rec1_hd_video_2022_2_[id number].jpg Rec1_hd_video_2022__ [id number].jpg Rec1_hd_video_2022_2_[id number].jpg Rec1_hd_video_2022__ [id number].jpg . Post-Procedure Complications: none. Estimated blood loss: none. Specimens: None. Devices/ implants: none left in place. Impression and Plan 1. Very large hiatal hernia noted with majority of the stomach located above the diaphragm. 2. Mild Schatzki ring was noted at the GE junction. Dilation was performed using TTS balloon 18-19-20 mm, dilation was perfumed to 20 mm with moderate resistance. Moderate mucosal disruption was noted post dilation. No wall defect was seen afterwards. 2. No lesions noted in the stomach 3. Normal duodenum Recommendations: -Liquid then soft diet today, advance as tolerated tomorrow -Restart Brilinta in 3 days if no signs of bleeding -follow in GI clinic as needed -Despite the size of the hiatal hernia especially if dysphagia resolves with dilation, if no symptoms beside the dysphagia and given the age we may not need to refer to thoracic surgery. Normal [facility] Comment on above: Result Comment: Elec tronically Signed By: Wolf Peres MD\.br\Date and Time Signed: 02/10/23 14:00 EDT Other Comment: Lili townsend Attachment - attachment storage system not supported [id number] Can [facility] Attachment - attachment storage system not supported [id number] Can be viewed in [facility] Attachment - attachment storage system not supported [id number] Can be viewed in source systemMissing Attachment - attachment storage system not supported [id number] Can be viewed in [facility] Attachment - attachment storage system not supported [id number] Can be viewed in source systemMissing Attachment - attachment storage system not supported [id number] Can be viewed in source systemMissing Attachment - attachment storage system not supported [id number] Can be viewed in source systemMissing Attachment - attachment storage system not supported [id number] Can be viewed in [facility] Attachment - attachment storage system not supported [id number] Can be viewed in source systemMissing Attachment - attachment storage system not supported [id number] Can be viewed in source system Inpatient Patient Summaryon 02-10-2023 Inpatient Patient Summary [place] [id number] [facility] Clinical Discharge Instructions PERSON INFORMATION Name: PIEDAD ALATORRE [facility]#:[id number] PHYSICIANS Admitting Physician: Wolf Peres MD Attending Physician: Wolf Peres MD PCP: PAULO HINOJOSA, Deonte Turpin Discharge Diagnosis: Dysphagia Comment: PATIENT EDUCATION INFORMATION Instructions: Esophageal Dilatation; Upper Endoscopy, Adult, Care After Medication Leaflets: Follow up: With: Address: When: Wolf Peres [address], [address], [address] [address] [phone] Business (1) Comments: Call for any problems. Type Location Start Finish State FM Open [facility] 03/04/2023 1:20 PM 03/04/2023 1:40 PM Confirmed Nurse Visit [facility] 04/11/2023 9:40 AM 04/11/2023 10:00 AM Confirmed FM Medicare Wellness Subsequent [facility] 08/01/2023 1:00 PM 08/01/2023 2:00 PM Confirmed MEDICATION LIST Medications to Continue with No Changes Other Medications acetaminophen 325 Milligram By Mouth every 6 hours as needed as needed for pain. amlodipine (amLODIPine 5 mg Tab) 1 Tablets By Mouth every day. Refills: 11. aspirin (aspirin 81 mg oral tablet) 1 Tablets By Mouth every day. atorvastatin (atorvastatin 80 mg Tab) 1 Tablets By Mouth at bedtime. Refills: 0. carvedilol (carvedilol 25 mg Tab) 1 Tablets By Mouth 2 times a day. Refills: 3. clonidine (cloNIDine 0.1 mg tab) 0.1 Milligram By Mouth 2 times a day. Refills: 3. cycloSPORINE ophthalmic (Cequa 0.09% ophthalmic solution) Both eyes every 12 hours. docusate (docusate sodium 100 mg Cap) 1 Capsules By Mouth 2 times a day as needed for constipation. ferrous sulfate (ferrous sulfate 325 mg oral enteric coated tablet) 1 Tablets By Mouth every day. Refills: 5. ipratropium nasal (Atrovent 0.03% [place]) 2 Sprays Nasal Inhalation 3 times a day as needed Other (see comment). Refills: 1. isosorbide mononitrate (isosorbide mononitrate 30 mg ER Tab) 1 Tablets By Mouth 2 times a day. Refills: 11. nitroglycerin (nitroglycerin 0.4 mg sublingual Tab) 1 Tablets Sublingual every 5 minutes as needed for chest pain. ocular lubricant (Refresh Optive) 1 Drops Both eyes 3 times a day. ondansetron (ondansetron 4 mg Tab) 1 Tablets By Mouth every 8 hours. pantoprazole (pantoprazole 40 mg Oral EC Tab) 40 Milligram By Mouth every day. Refills: 3. polyethylene glycol 3350 (MiraLax) 17 Gram By Mouth every day. spironolactone (spironolactone 25 mg Tab) 1 Tablets By Mouth every day. Refills: 5. ticagrelor (ticagrelor 90 mg oral tablet) 1 Tablets By Mouth 2 times a day. trazodone (traZODONE 50 mg Tab) 1 Tablets By Mouth once a day (at bedtime). Refills: 5. valacyclovir (valacyclovir 1 g Tab) 1 Tablets By Mouth every 8 hours for 7 Days. Refills: 0. Comment: Laila [facility] Main OR PACU I Recordon 10-0 Main OR PACU I Record PACU Phase I Document Type FT Summary Primary Physician: Wolf Peres MD Finalized Date/Time: 02/10/23 15:00:12 Pt. Name: PIEDAD ALATORRE/Sex: 1935 Female Med Rec #: [id number] Physician: Wolf Peres MD Financial #: [id number] Pt. Type: O Room/Bed: [facility] 11/09 Admit/Disch: 02/10/23 12:34:27 - Institution: Case Times PACU I FT Pre-Care Text: Identifies barriers to communication and implements measures to provide psychological support Develops individualized plan of care, and ensures continuity of care Maintains patient's dignity and privacy, and maintains patient confidentiality Identifies and reports philosophical, cultural, and spiritual beliefs and values Identifies individual values and wishes concerning care Implements aseptic technique, and administers prescribed antibiotic therapy and immunizing agents as ordered Evaluates postoperative tissue perfusion Implements thermoregulation measures, and monitors body temperature Evaluates postoperative respiratory status Evaluates postoperative cardiac status Evaluates postoperative neurological status Assesses pain control, collaborated in initiating patient-controlled analgesia and implements alternative methods of pain control Verifies allergies, administers prescribed medications and solutions, evaluates response to medications Entry 1 In PACU I 10/02/23 13:59:00 Discharge from PACU 02/10/23 14:35:00 I Outcomes Met? Yes Last Modified By: Suellen Triplett RN 02/10/23 14:59:52 Post-Care Text: The patient demonstrates knowledge of the expected response to the operative or invasive procedure The patient's care is consistent with the individualized perioperative plan of care The patient's right to privacy is maintained The patient's value system, lifestyle, ethnicity, and culture are considered, respected, and incorporated into the perioperative plan of care The patient participates in decisions affecting his or her perioperative plan of care The patient is free from signs and symptoms of infection The patient has wound/tissue perfusion consistent with or improved from baseline levels established preoperatively The patient is at or returning to normothermia at the conclusion of the immediate postoperative period The patient's respiratory function is consistent with or improved from baseline levels established preoperatively The patient's cardiovascular status is consistent with or improved from baseline levels established preoperatively The patient's cardiovascular status is consistent with or improved from baseline levels established preoperatively The patient demonstrates and/or reports adequate pain control throughout the perioperative period The patient received appropriate medication(s), safely administered during the perioperative period Acuity Level PACU I FT Entry 1 Start Time 02/10/23 13:59:00 Stop Time 02/10/23 14:35:00 Acuity Level Acuity Level I Last Modified By: Suellen Triplett RN 02/10/23 15:00:06 Finalized By: Suellen Triplett RN Document Signatures Signed By: Suellen Triplett RN 02/10/23 15:00 Suellen Triplett RN 02/10/23 15:00 [facility] Main OR Preoperative Recordo n 02-10-2023 Main OR Preoperative Record Holding Area Document Type FT Summary Primary Physician: Wolf Peres MD Finalized Date/Time: 02/10/23 12:52:27 Pt. Name: PIEDAD ALATORRE/Sex: 1935 Female Med Rec #: [id number] Physician: Wolf Peres MD Financial #: [id number] Pt. Type: O Room/Bed: Endo OP 11/09 Admit/Disch: 02/10/23 12:34:27 - Institution: Case Times Holding FT Pre-Care Text: Verifies consent for planned procedure, identifies individual values and wishes concerning care, includes family members in perioperative teaching Secures patient's records' belongings, and valuables, maintains patient's dignity and privacy, and maintains patient confidentiality Entry 1 In Holding 02/10/23 12:49:00 Outcomes Met? Yes Last Modified By: Shady Luque RN 02/10/23 12:50:10 Post-Care Text: The patient participates in decisions affecting his or her perioperative plan of care The patient's right to privacy is maintained Surgery Checklist FT Entry 1 Patient Birthday, ID Band Procedure History and Physical, Identification: Check, Patient Verification: Surgical Consent, With Participation Patient NPO after Midnight: No Results Reviewed n/a Comments: Personal Items glasses, walker, Limitations: walker for assistance Comment: bilateral carotid stents Complaints of Pain: No Pain Comment: pt denies pain at this time Operative Site n/a Marked By: n/a Marking: Location: n/a Availability Equipment Verified: Does Patient Smoke No Patient states Yes Comment - Adult [facility] postop adult Supervision supervision available Case Cancelled in No Holding Area see comments below for reason Last Modified By: Shady Luque RN 02/10/23 12:52:26 Finalized By: Shady Luque RN Document Signatures Signed By: Shady Luque RN 02/10/23 12:52 [facility] Monitor Recordon 02-10-2023 Monitor Record [id number]. 00CD:127 Normal [facility] Outpatient Surgery Discharge Instructionon 02-10-2023 Outpatient Surgery Discharge Instruction [address] [address] Patient Discharge Instructions PERSON INFORMATION Name: PIEDAD ALATORRE Date of : 1935 Current Date: 02/10/2023 14:24:10 PHYSICIANS Admitting Physician: Larisa HINOJOSA, Wolf Arana Discharge Diagnosis: Dysphagia TOMASA ALATORREY Migel has been given the following list of follow-up instructions, prescriptions, and patient education materials: PATIENT FOLLOW-UP INFORMATION Diet: Other: Start with liquid diet, advance as tolerated, avoid retching Discharge Activity: Resume normal activities in 24 hours Discharge Restrictions: No driving for 24 hrs Call Your Doctor For: Persistent or heavy bleeding Additional Instructions: Start Brilinta in 3 days if no signs of bleeding IF UNABLE TO CONTACT YOUR PHYSICIAN AND YOU FEEL IT IS AN EMERGENCY, GO TO THE NEAREST EMERGENCY ROOM OR CALL 911 PHYLLIS Levy ROSEMARY E, have received the attached patient education materials/instructions and have verbalized understanding: May we do a follow up call? Yes No I was present when discharge instructions were given Patient Signature Date Clinican/Nurse Signature ___ Date Follow up: With: Address: When: [facility] [address], [address], [address] [address] [phone] Business (1) Comments: Call for any problems. Type Location Start Finish State [facility] Open [facility] 03/04/2023 1:20 PM 03/04/2023 1:40 PM Confirmed FM Nurse Visit [facility] 04/11/2023 9:40 AM 04/11/2023 10:00 AM Confirmed FM Medicare Wellness Subsequent [facility] 08/01/2023 1:00 PM 08/01/2023 2:00 PM Confirmed Pharmacy Information: [facility] Mail Order You may receive a survey from [employer] asking you to rate your care experience. Your feedback is important and will help us understand what we do well and how we can improve the quality of care we provide to you, your loved ones and our community. It?s an honor to serve you. Thank you for choosing [facility] HERE ARE THE MEDICATION CHANGES THAT OCCURRED DURING YOUR HOSPITAL STAY Medications to Continue with No Changes Other Medications acetaminophen 325 Milligram By Mouth every 6 hours as needed as needed for pain. amlodipine (amLODIPine 5 mg Tab) 1 Tablets By Mouth every day. Refills: 11. aspirin (aspirin 81 mg oral tablet) 1 Tablets By Mouth every day. atorvastatin (atorvastatin 80 mg Tab) 1 Tablets By Mouth at bedtime. Refills: 0. carvedilol (carvedilol 25 mg Tab) 1 Tablets By Mouth 2 times a day. Refills: 3. clonidine (cloNIDine 0.1 mg tab) 0.1 Milligram By Mouth 2 times a day. Refills: 3. cycloSPORINE ophthalmic (Cequa 0.09% ophthalmic solution) Both eyes every 12 hours. docusate (docusate sodium 100 mg Cap) 1 Capsules By Mouth 2 times a day as needed for constipation. ferrous sulfate (ferrous sulfate 325 mg oral enteric coated tablet) 1 Tablets By Mouth every day. Refills: 5. ipratropium nasal (Atrovent 0.03% [place]) 2 Sprays Nasal Inhalation 3 times a day as needed Other (see comment). Refills: 1. isosorbide mononitrate (isosorbide mononitrate 30 mg ER Tab) 1 Tablets By Mouth 2 times a day. Refills: 11. nitroglycerin (nitroglycerin 0.4 mg sublingual Tab) 1 Tablets Sublingual every 5 minutes as needed for chest pain. ocular lubricant (Refresh Optive) 1 Drops Both eyes 3 times a day. ondansetron (ondansetron 4 mg Tab) 1 Tablets By Mouth every 8 hours. pantoprazole (pantoprazole 40 mg Oral EC Tab) 40 Milligram By Mouth every day. Refills: 3. polyethylene glycol 3350 (MiraLax) 17 Gram By Mouth every day. spironolactone (spironolactone 25 mg Tab) 1 Tablets By Mouth every day. Refills: 5. ticagrelor (ticagrelor 90 mg oral tablet) 1 Tablets By Mouth 2 times a day. trazodone (traZODONE 50 mg Tab) 1 Tablets By Mouth once a day (at bedtime). Refills: 5. valacyclovir (valacyclovir 1 g Tab) 1 Tablets By Mouth every 8 hours for 7 Days. Refills: 0. PATIENT EDUCATION INFORMATION Instructions: Esophageal Dilatation Esophageal dilatation, also called esophageal dilation, is a procedure to widen or open a blocked or narrowed part of the esophagus. The esophagus is the part of the body that moves food and liquid from the mouth to the stomach. You may need this procedure if: ? You have a buildup of scar tissue in your esophagus that makes it difficult, painful, or impossible to swallow. This can be caused by gastroesophageal reflux disease (GERD). ? You have cancer of the esophagus. ? There is a problem with how food moves through your esophagus. In some c (more content not included)... Normal [facility] Patient Education - Texton 1 Patient Education - Text Gastroenterology Esophageal Dilatation Esophageal dilatation, also called esophageal dilation, is a procedure to widen or open a blocked or narrowed part of the esophagus. The esophagus is the part of the body that moves food and liquid from the mouth to the stomach. You may need this procedure if: ? You have a buildup of scar tissue in your esophagus that makes it difficult, painful, or impossible to swallow. This can be caused by gastroesophageal reflux disease (GERD). ? You have cancer of the esophagus. ? There is a problem with how food moves through your esophagus. In some cases, you may need this procedure repeated at a later time to dilate the esophagus gradually. Tell a health care provider about: ? Any allergies you have. ? All medicines you are taking, including vitamins, herbs, eye drops, creams, and hwtd-fdd-ksqetrv medicines. ? Any problems you or family members have had with anesthetic medicines. ? Any blood disorders you have. ? Any surgeries you have had. ? Any medical conditions you have. ? Any antibiotic medicines you are required to take before dental procedures. ? Whether you are or may be . What are the risks? Generally, this is a safe procedure. However, problems may occur, including: ? Bleeding due to a tear in the lining of the esophagus. ? A hole, or perforation, in the esophagus. What happens before the procedure? ? Ask your health care provider about: ? Changing or stopping your regular medicines. This is especially important if you are taking diabetes medicines or blood thinners. ? Taking medicines such as aspirin and ibuprofen. These medicines can thin your blood. Do not take these medicines unless your health care provider tells you to take them. ? Taking yfpv-dim-dtkjnnn medicines, vitamins, herbs, and supplements. ? Follow instructions from your health care provider about eating or drinking restrictions. ? Plan to have a responsible adult take you home from the hospital or clinic. ? Plan to have a responsible adult care for you for the time you are told after you leave the hospital or clinic. This is important. What happens during the procedure? ? You may be given a medicine to help you relax (sedative). ? A numbing medicine may be sprayed into the back of your throat, or you may gargle the medicine. ? Your health care provider may perform the dilatation using various surgical instruments, such as: ? Simple dilators. This instrument is carefully placed in the esophagus to stretch it. ? Guided wire bougies. This involves using an endoscope to insert a wire into the esophagus. A dilator is passed over this wire to enlarge the esophagus. Then the wire is removed. ? Balloon dilators. An endoscope with a small balloon is inserted into the esophagus. The balloon is inflated to stretch the esophagus and open it up. The procedure may vary among health care providers and hospitals. What can I expect after the procedure? ? Your blood pressure, heart rate, breathing rate, and blood oxygen level will be monitored until you leave the hospital or clinic. ? Your throat may feel slightly sore and numb. This will get better over time. ? You will not be allowed to eat or drink until your throat is no longer numb. ? When you are able to drink, urinate, and sit on the edge of the bed without nausea or dizziness, you may be able to return home. Follow these instructions at home: ? Take dzqq-cfa-phugdud and prescription medicines only as told by your health care provider. ? If you were given a sedative during the procedure, it can affect you for several hours. Do not drive or operate machinery until your health care provider says that it is safe. ? Plan to have a responsible adult care for you for the time you are told. This is important. ? Follow instructions from your health care provider about any eating or drinking restrictions. ? Do not use any products that contain nicotine or tobacco, such as cigarettes, e-cigarettes, and chewing tobacco. If you need help quitting, ask your health care provider. ? Keep all follow-up visits. This is important. Contact a health care provider if: ? You have a fever. ? You have pain that is not relieved by medicine. Get help right away if: ? You have chest pain. ? You have trouble breathing. ? You have trouble swallowing. ? You vomit blood. ? You have black, tarry, or bloody stools. These symptoms may represent a serious problem that is an emergency. Do not wait to see if the symptoms will go away. Get medical help right away. Call your local emergency services (911 in the [place] Do not drive yourself to the hospital. Summary ? Esophageal dilatation, also called esophageal dilation, is a procedure to widen or open a blocked or narrowed part of the esophagus. ? Plan to have a responsible adult take you home from the hospital or clinic. ? For this procedure, a numbing medicine may be spray (more content not included)... Normal [facility] Lab Reportson 02-08-2023 Lab Reports [id number] 0CD:127 Normal [facility] Ambulatory Visit Summaryon 0 02-07-2023 Ambulatory Visit Summary PIEDAD ALATORRE :1935 Visit Date:02/07/2023 Ambulatory Visit Instructions Your Diagnosis Shingles rash BMI 25.0-25.9,adult Over weight These Are Your Goals B/P will be in normal range for patient Interventions: Low impact exercises: 2 arm and 2 legs exercises- 10 repetitions daily of each or walk in hallway - Progressing Low sodium diet - Progressing Medication Compliance - Progressing Rview HTN education booklet with patient - Done Take B/p weekly and record - Progressing Lipid panel will be in normal range Interventions: 3 servings of fresh fruit and vegetables daily - Progressing Avoid fried food and food high in saturated fats - Progressing Low impact exercise- see above - Progressing Medication Compliance - Progressing Prevent any acute episodes of choking Interventions: Chew food thoroughly and eat slowly - Progressing Cut food in small pieces - Progressing Drink fluid between bites - Progressing Follow up with GI for esophageal dilation Medication Compliance - Progressing Sit upright after meals or eating for 30 -45 minutes - Progressing Your Care Team Attending Physician - Radu FLORES, Elvi Vergara Primary Care Physician - PAULO HINOJOSA, Deonte Turpin This Is Your Medications List valacyclovir (valacyclovir 1 g Tab) Contact prescribing physician if questions or concerns acetaminophen amlodipine (amLODIPine 5 mg Tab) aspirin (aspirin 81 mg oral tablet) atorvastatin (atorvastatin 80 mg Tab) carvedilol (carvedilol 25 mg Tab) clonidine (cloNIDine 0.1 mg tab) cycloSPORINE ophthalmic (Cequa 0.09% ophthalmic solution) docusate (docusate sodium 100 mg Cap) ferrous sulfate (ferrous sulfate 325 mg oral enteric coated tablet) ipratropium nasal (Atrovent 0.03% [place]) isosorbide mononitrate (isosorbide mononitrate 30 mg ER Tab) nitroglycerin (nitroglycerin 0.4 mg sublingual Tab) ocular lubricant (Refresh Optive) ondansetron (ondansetron 4 mg Tab) pantoprazole (pantoprazole 40 mg Oral EC Tab) polyethylene glycol 3350 (MiraLax) spironolactone (spironolactone 25 mg Tab) ticagrelor (ticagrelor 90 mg oral tablet) trazodone (traZODONE 50 mg Tab) Procedures Performed Colonoscopy (03/18/2022), Colonoscopy (03/18/2022), Radiofrequency ablation of medial branch of cervical nerve using fluoroscopic guidance (08/24/2018), cervical facet Medial Branch Block (05/25/2018), Cervical Facet Medial Branch Block (04/20/2018), lumbar facet medial branch block (11/24/2017), Radiofrequency ablation of medial branch of lumbar nerve using fluoroscopic guidance (09/29/2017), Lumbar Facet Medial Branch Block (09/08/2017), Injection of facet joint using fluoroscopic guidance (06/23/2017), Angioplasty (09/09/2014), Colonoscopy (10/10/2010), Heart Cath. (05/12/1994), Angioplasty of left leg artery, Appendectomy, Bunionectomy, Carotid angiogram, Carotid endarterectomy, Cataract extraction, D&C - Dilatation and curettage, EGD, kidney artery left stent placement, Removal of ovarian cyst, Stents, bilateral legs. Discharge Vitals Temperature (Oral) 36.4 ?C Heart Rate (Peripheral) 67 Blood Pressure 132/70 Height 157 cm Height 62 in Weight 63.7 kg Weight 140.14 lb BMI 25.84 What to do next Scheduled Follow-Up Appointments Friday 1:30 PM EDT With: Where: [facility] Services Friday 1:20 PM EDT With: PAULO HINOJOSA, Deonte Turpin Where: [facility] Normal [address], [place] [address]- \.br\ Medications\.br\ What How Much When Why Instructions\.br\ New valacyclovir (valacyclovir 1 g Tab) 1 Tablets By Mouth Every 8 hours Shingles rash Duration: 7 Days Pickup at [facility]\.br\ Unchanged acetaminophen 325 Milligram By Mouth Every 6 hours as needed for as needed for pain Contact prescribing physician if questions or concerns \.br\ Unchanged amlodipine (amLODIPine 5 mg Tab) 1 Tablets By Mouth Every day Contact prescribing physician if questions or concerns \.br\ Unchanged aspirin (aspirin 81 mg oral tablet) 1 Tablets By Mouth Every day Contact prescribing physician if questions or concerns \.br\ Unchanged atorvastatin (atorvastatin 80 mg Tab) 1 Tablets By Mouth At bedtime Contact prescribing physician if questions or concerns \.br\ Unchanged carvedilol (carvedilol 25 mg Tab) 1 Tablets By Mouth 2 times a day Contact prescribing physician if questions or concerns \.br\ Unchanged clonidine (cloNIDine 0.1 mg tab) 0.1 Milligram By Mouth 2 times a day Contact prescribing physician if questions or concerns \.br\ Unchanged cycloSPORINE ophthalmic (Cequa 0.09% ophthalmic solution) Both eyes Every 12 hours Contact prescribing physician if questions or concerns \.br\ Unchanged docusate (docusate sodium 100 mg Cap) 1 Capsules By Mouth 2 times a day as needed for for constipation Contact prescribing physician if questions or concerns \.br\ Unchanged ferrous sulfate (ferrous sulfate 325 mg oral enteric coated tablet) 1 Tablets By Mouth Every day Anemia Contact prescribing physician if questions or concerns \.br\ Unchanged ipratropium nasal (Atrovent 0.03% [place]) 2 Sprays Nasal Inhalation 3 times a day as needed for Other (see comment) Vasomotor rhinitis Contact prescribing physician if questions or concerns \.br\ Unchanged isosorbide mononitrate (isosorbide mononitrate 30 mg ER Tab) 1 Tablets By Mouth 2 times a day Contact prescribing physician if questions or concerns \.br\ Unchanged nitroglycerin (nitroglycerin 0.4 mg sublingual Tab) 1 Tablets Sublingual Every 5 minutes as needed for for chest pain Contact prescribing physician if questions or concerns \.br\ Unchanged ocular lubricant (Refresh Optive) 1 Drops Both eyes 3 times a day Contact prescribing physician if questions or concerns \.br\ Unchanged ondansetron (ondansetron 4 mg Tab) 1 Tablets By Mouth Every 8 hours Contact prescribing physician if questions or concerns \.br\ Unchanged pantoprazole (pantoprazole 40 mg Oral EC Tab) 40 Milligram By Mouth Every day Contact prescribing physician if questions or concerns \.br\ Unchanged polyethylene glycol 3350 (MiraLax) 17 Gram By Mouth Every day Contact prescribing physician if questions or concerns \.br\ Unchanged spironolactone (spironolactone 25 mg Tab) 1 Tablets By Mouth Every day HTN - Hypertension Contact prescribing physician if questions or concerns \.br\ Unchanged ticagrelor (ticagrelor 90 mg oral tablet) 1 Tablets By Mouth 2 times a day Contact prescribing physician if questions or concerns \.br\ Unchanged trazodone (traZODONE 50 mg Tab) 1 Tablets By Mouth Once a day (at bedtime) Insomnia Contact prescribing physician if questions or concerns \.br\ Pharmacy Information\.br\ [facility]: [address] [place], [place] [id number] [phone]\.br\ Allergies\.br\ lisinopril (Angioedema)\.br\ Latex (Rash)\.br\ Skelaxin (SOB - Shortness of breath)\.br\ penicillin (Rash, SOB - Shortness of breath)\.br\ shellfish\.br\ Problems\.br\ Ongoing - Any problem that you are currently receiving treatment for.\.br\ Anemia\.br\ Anxiety disorder\.br\ Asthma\.br\ BMI 25.0-25.9,adult\. br\ CAD (coronary artery disease)\.br\ Carotid artery stenosis\.br\ COPD type B\.br\ Dysphagia\.br\ Edema\.br\ Elevated alkaline phosphatase level\.br\ Female stress incontinence\.br\ History of CVA in adulthood\.br\ HTN - Hypertension\.br\ Hyperglycemia\.br \ Hyperlipidemia\.b r\ Insomnia\.br\ Intertrigo\.br\ Knee pain, right\.br\ Leg weakness\.br\ Lumbar radiculopathy\.br \ Neck pain\.br\ Over weight\.br\ Seborrheic keratoses\.br\ Shingles rash\.br\ Shoulder pain\.br\ Skin lesion of face\.br\ Stage 3 chronic kidney disease\.br\ Vasomotor rhinitis\.br\ Historical - Any problem that you are no longer receiving treatment for.\.br\ Acid reflux\.br\ Appendectomy\.br\ blood clots\.br\ Cardiac arrest\.br\ COPD\.br\ Glaucoma\.br\ H/O: TIA\.br\ HEMATURIA\.br\ [place] - myocardial infarction\.br\ STEMI - ST elevation myocardial infarction\.br\ Stroke\.br\ \.br\ [facility] Family Medicine Office/Clini c Noteon 02-07-2023 Family Medicine Office/Clinic Note Chief Complaint pt here for shingles, onset couple days. rash is on the left side of lower back. HPI Staff Medicare wellness: utd Last routine labs: 09/20/22 smoker status: never DEXA (F>65, M>70): due flu vaccine status: due History of Present Illness Piedad is a 87 yo female presenting for hospital f/u. Pt's PCP is Dr. Rosario. Pt was discharged from hospital 01/28/23 for sciatica and then reports she started having a rash on her lower left back. Pt rates the pain as 5/10. Pt reports she got a shingles vaccine about Review of Systems PHQ Score Initial Depression Screen Score: 0 Physical Exam Vitals & Measurements T: 36.4 ?C(Oral) HR: 67(Peripheral) BP: 132/70 SpO2: 97% HT: 62 in HT: 157 cm WT: 63.7 kg WT: 140.14 lb BMI: 25.84 General: Well developed, well nourished, in no acute distress Eyes: Bilateral PERRLA, conjunctivae and sclerae wnl, EOMs intact, lids without stye, chalazion, ect/extropion, ptosis, xanthelasma, blepharitis. No discharge to inner canthi.Negative for corneal abrasion or foreign bodies. Ears: grossly normal hearing Nose: No deformity, discharge, inflammation, or lesions. No congestion, no erythema; pink & moist turbinates; clear rhinorrhea. Mouth: mucous membranes pink, moist and intact. [place] posterior oropharynx, no palatal inflammation, uvula midline, no cobble-stoning, no enlarged tonsils, no tonsillar exudate, no ulcers, no active post nasal drip. tongue midline and wnl. Good dentition. Neck: Neck supple. No lymphadenopathy. Trachea midline. No thyroid, masses, tenderness, or enlargement noted. No bruit. Lungs: Normal respiratory effort and clear to auscultation Cardio: Regular rate and rhythm, normal S1 and S2, no murmur, no rub Abdomen: soft/non-distended. BS normoactive in all 4 quadrants. No peristaltic waves/pulsations/organ omegaly/suprapubic bulge/tenderness/tony s/guarding/rigidity/br uits/dullness to percussion. Negative Sandhu's/McBurney's/Ro vsing's/psoas signs/CVA tenderness. Musculoskeletal: No deformity or scoliosis noted. No vertebral tenderness. Normal range of motion. No vertebral point tenderness. Joints normal. No erythema, edema, effusion, crepitus, or ecchymosis. Straight leg raise negative Extremity: No clubbing, cyanosis, edema, or deformity. Normal ROM with upper and lower extremities, bilaterally. Neurologic: Cranial nerves II-XII grossly intact. motor strength equal & normal bilaterally, sensation equal & normal bilaterally. Gait normal. Skin: unilateral erythematous vesicular rash noted to left lower lumbar region near T12/L1 dermatome r Mental Status: Alert and oriented x3. Normal mood and affect Assessment/Plan 1. Shingles rash (B02.9: Zoster without complications) Ice rash 3-4 times daily and use Tylenol OTC for pain relief (pain is not reported severe enough for Gabapentin) Recommend nurse visit for Shingrix vaccine after current rash has cleared up Physical exam and complaints consistent with herpes zoster (shingles). Offered Valacyclovir, which is most effective if taken within 72 hours of symptom onset. Patient agrees to take and is prescribed for 7 days. May use PRN ice, calamine lotion for itch, Tylenol or OTC topicals with Lidocaine or similar (such as Aloe with Lidocaine). Educated about shingles- educational handout provided as well. Advised can spread chicken pox to unvaccinated individuals/very young infants via the fluid from the vesicles. Keep blisters covered if tolerated. Encouraged to see PCP if pain continues after rash resolves or becomes severe. Ordered: valacyclovir, 1 gm = 1 tab(s), Oral, q8hr, X 7 day(s), # 21 tab(s), Refills(s) 0, Pharmacy: [facility], 157, cm, 02/07/23 13:05:00 EDT, Height/Length Dosing, 63.7, kg, 02/07/23 13:05:00 EDT, Weight Dosing 2. BMI 25.0-25.9,adult (Z68.25: Body mass index [BMI] 25.0-25.9, adult) The standard range for ages 18 and older is >=18.5 and < 25 kg/m2. Your BMI today was above this range, this falls in the overweight to obese category and there are medical benefits to weight loss. We can offer counselling, referral, and/or medical support in addressing this problem. Your BMI and weight management will be followed at subsequent visits. 3. Over weight (E66.3: Overweight) Reviewed importance of making a lifestyle change regarding dietary choices. Discussed goals. Encouraged routine cardio exercise with Goal: 3-5x/week for 30-45 minutes. Start out slow and increase to achieve your goals. Avoid late night snacking, do not skip breakfast and monitor cooking habits/avoid fast food and fried/fatty foods. Will monitor for progress. Follow-up With When Contact Information Elvi Millan Only if needed [address], [place] [address]- Additional Instructions: Patient Education Neuropathic Pain Shingles Problem List/Past Medical History Ongoing Anemia Anxiety disorder Asthma BMI 25.0-25.9,adult CAD (coronary artery disease) Carotid osei (more content not included)... Normal [facility] Comment on above: Result Comment: Elec tronically Signed By: Elvi Millan\.br\Date and Time Signed: 02/07/23 13:25 EDT Patient Educationon 02-08-20 Patient Education Infectious Disease Shingles Shingles, which is also known as herpes zoster, is an infection that causes a painful skin rash and fluid-filled blisters. It is caused by a virus. Shingles only develops in people who: ? Have had chickenpox. ? Have been vaccinated against chickenpox. Shingles is rare in this group. What are the causes? Shingles is caused by varicella-zoster virus. This is the same virus that causes chickenpox. After a person is exposed to the virus, it stays in the body in an inactive (dormant) state. Shingles develops if the virus is reactivated. This can happen many years after the first (initial) exposure to the virus. It is not known what causes this virus to be reactivated. What increases the risk? People who have had chickenpox or received the chickenpox vaccine are at risk for shingles. Shingles infection is more common in people who: ? Are older than 60 years of age. ? Have a weakened disease-fighting system (immune system), such as people with: ? HIV (human immunodeficiency virus). ? AIDS (acquired immunodeficiency syndrome). ? Cancer. ? Are taking medicines that weaken the immune system, such as organ transplant medicines. ? Are experiencing a lot of stress. What are the signs or symptoms? Early symptoms of this condition include itching, tingling, and pain in an area on your skin. Pain may be described as burning, stabbing, or throbbing. A few days or weeks after early symptoms start, a painful red rash appears. The rash is usually on one side of the body and has a band-like or belt-like pattern. The rash eventually turns into fluid-filled blisters that break open, change into scabs, and dry up in about 2?3 weeks. At any time during the infection, you may also develop: ? A fever. ? Chills. ? A headache. ? Nausea. How is this diagnosed? This condition is diagnosed with a skin exam. Skin or fluid samples (a culture) may be taken from the blisters before a diagnosis is made. How is this treated? The rash may last for several weeks. There is not a specific cure for this condition. Your health care provider may prescribe medicines to help you manage pain, recover more quickly, and avoid long-term problems. Medicines may include: ? Antiviral medicines. ? Anti-inflammatory medicines. ? Pain medicines. ? Anti-itching medicines (antihistamines). If the area involved is on your face, you may be referred to a specialist, such as an eye doctor (coal and ash supervisor) or an ear, nose, and throat (ENT) doctor (social worker health services ) to help you avoid eye problems, chronic pain, or disability. Follow these instructions at home: Medicines ? Take njaj-cgj-jpjisbw and prescription medicines only as told by your health care provider. ? Apply an anti-itch cream or numbing cream to the affected area as told by your health care provider. Relieving itching and discomfort ? Apply cold, wet cloths (cold compresses) to the area of the rash or blisters as told by your health care provider. ? Cool baths can be soothing. Try adding baking soda or dry oatmeal to the water to reduce itching. Do not bathe in hot water. ? Use calamine lotion as recommended by your health care provider. This is an rcly-vvz-pjunrtc lotion that helps to relieve itchiness. Blister and rash care ? Keep your rash covered with a loose bandage (dressing). Wear loose-fitting clothing to help ease the pain of material rubbing against the rash. ? Wash your hands with soap and water for at least 20 seconds before and after you change your dressing. If soap and water are not available, use hand laborer rags. ? Change your dressing as told by your health care provider. ? Keep your rash and blisters clean by washing the area with mild soap and cool water as told by your health care provider. ? Check your rash every day for signs of infection. Check for: ? More redness, swelling, or pain. ? Fluid or blood. ? Warmth. ? Pus or a bad smell. ? Do not scratch your rash or pick at your blisters. To help avoid scratching: ? Keep your fingernails clean and cut short. ? Wear gloves or mittens while you sleep, if scratching is a problem. General instructions ? Rest as told by your health care provider. ? Wash your hands often with soap and water for at least 20 seconds. If soap and water are not available, use hand laborer rags. Doing this lowers your chance of getting a bacterial skin infection. ? Before your blisters change into scabs, your shingles infection can cause chickenpox in people who have never had it or have never been vaccinated against it. To prevent this from happening, avoid contact with other people, especially: ? Babies. ? women. ? Children who have eczema. ? Older people who have transplants. ? People who have chronic illnesses, such as cancer or AIDS. ? Keep all follow-up visits. This is important. How is this prevented? Getting vaccinat (more content not included)... Normal [facility] Main OR Preoperative Recordo n 01-22-2023 Main OR Preoperative Record Holding Area Document Type FT Summary Primary Physician: Wolf Peres MD Finalized Date/Time: 01/22/23 11:03:23 Pt. Name: PIEDAD ALATORRE/Sex: 1935 Female Med Rec #: [id number] Physician: Wolf Peres MD Financial #: [id number] Pt. Type: O Room/Bed: Endo 10/10 Admit/Disch: 01/15/23 11:23:40 - 01/15/23 23:59:59 Institution: Case Times Holding FT Pre-Care Text: Verifies consent for planned procedure, identifies individual values and wishes concerning care, includes family members in perioperative teaching Secures patient's records' belongings, and valuables, maintains patient's dignity and privacy, and maintains patient confidentiality Entry 1 In Holding 01/15/23 11:49:00 Outcomes Met? Yes Last Modified By: Ana Maria Ashley RN 01/15/23 11:55:01 Post-Care Text: The patient participates in decisions affecting his or her perioperative plan of care The patient's right to privacy is maintained Surgery Checklist FT Entry 1 Patient Birthday, ID Band Procedure History and Physical, Identification: Check, Patient Verification: Surgical Consent, With Participation Patient NPO after Midnight: Yes Personal Items: Glasses Personal Items walker Limitations: Patient has glaucoma Comment: Complaints of Pain: No Pain Comment: no Operative Site n/a Marked By: n/a Marking: Availability Equipment Verified: Does Patient Smoke No Patient states Yes Comment - Adult Magdaleno- transport from postop adult Supervision skilled nursing supervision available Case Cancelled in Yes Case Cancelled didnt hold blood thinner Holding Area see Comment comments below for reason Last Modified By: Ana Maria Ashley RN 01/22/23 11:03:21 Finalized By: Ana Maria Ashley RN Document Signatures Signed By: Ana Maria Ashley RN 01/15/23 11:56 Ana Maria Ashley RN 01/22/23 11:03 [facility] Consent for Procedure/Surger yon 01-20-2023 Consent for Procedure/Surgery [id number]:127 [facility] Consent for Treatmenton Consent for Treatment [id number] 0CD:127 [facility] Progress Note-Physicianon Progress Note-Physician Patient: PIEDAD ALATORRE Age: 87 years Sex: Female : 1935 Associated Diagnoses: None Author: Artem Gee MD Preoperative Information Anesthesia Preop Info: Time patient last ate or drank 01/14/2023 22:00:00. Anesthesia history: Patient history: None. Family history+: None. Informed consent: Signed by patient. Including risks, benefits, and alternatives related to the: Anesthetic plan. Re-evaluation prior to induction: Artem Gee MD. Initial evaluation reviewed: No significant change. Review of Systems Eye: Negative. Ear/Nose/Mouth/Throat: Negative. Respiratory: Negative. Cardiovascular: Negative. Gastrointestinal: Negative. Genitourinary: Negative. Hematology/Lymphatics: Negative. Endocrine: Negative. Musculoskeletal: Negative. Neurologic: Negative. Health Status Allergies: Allergies (5) Active Reaction lisinopril Angioedema Latex Rash penicillin Rash shellfish None Documented Skelaxin SOB - Shortness of breath Current medications: Home Medications (19) Active acetaminophen 325 mg, PRN, Oral, q6hr amLODIPine 5 mg Tab 5 mg = 1 tab(s), Oral, Daily aspirin 81 mg oral tablet 81 mg = 1 tab(s), Oral, Daily atorvastatin 80 mg Tab 80 mg = 1 tab(s), Oral, Bedtime Atrovent 0.03% [place] 2 spray(s), PRN, Nasal, TID carvedilol 25 mg Tab 25 mg = 1 tab(s), Oral, BID Cequa 0.09% ophthalmic solution , Eye-Both, q12hr cloNIDine 0.1 mg tab 0.1 mg, Oral, BID docusate sodium 100 mg Cap 100 mg = 1 cap(s), PRN, Oral, BID ferrous sulfate 325 mg oral enteric coated tablet 325 mg = 1 tab(s), Oral, Daily isosorbide mononitrate 30 mg ER Tab 30 mg = 1 tab(s), Oral, BID MiraLax 17 gm, Oral, Daily nitroglycerin 0.4 mg sublingual Tab 0.4 mg = 1 tab(s), PRN, SubLingual, q5min ondansetron 4 mg Tab 4 mg = 1 tab(s), Oral, q8hr pantoprazole 40 mg Oral EC Tab 40 mg, Oral, Daily Refresh Optive 1 drop(s), Eye-Both, TID spironolactone 25 mg Tab 25 mg = 1 tab(s), Oral, Daily ticagrelor 90 mg oral tablet 90 mg = 1 tab(s), Oral, BID traZODONE 50 mg Tab 50 mg = 1 tab(s), Oral, Once a day (at bedtime) , Medications (1) Active Scheduled: (0) Continuous: (1) Sodium Chloride 0.9% 1,000 mL 1,000 mL, IV, 20 mL/hr PRN: (0) Problem list: All Problems HTN - Hypertension / SNOMED CT 4570565142 / Confirmed Hyperlipidemia / SNOMED CT 05894782 / Confirmed Anxiety disorder / SNOMED CT 507396434 / Confirmed Asthma / SNOMED CT 208143025 / Confirmed Female stress incontinence / SNOMED CT 960048754 / Confirmed Carotid artery stenosis / SNOMED CT 234998320 / Confirmed Lumbar radiculopathy / SNOMED CT 550226760 / Confirmed Intertrigo / SNOMED CT 84912020 / Confirmed Leg weakness / SNOMED CT 794097546 / Confirmed Edema / SNOMED CT 763957025 / Confirmed Hyperglycemia / SNOMED CT 662137782 / Confirmed Insomnia / SNOMED CT 100906620 / Confirmed Stage 3 chronic kidney disease / SNOMED CT 3728782640 / Confirmed Anemia / SNOMED CT 611867559 / Confirmed Vasomotor rhinitis / SNOMED CT 03259950 / Confirmed Seborrheic keratoses / SNOMED CT 3798229485 / Confirmed Shoulder pain / SNOMED CT 88546714 / Confirmed COPD type B / SNOMED CT 710658049 / Confirmed Neck pain / SNOMED CT 712464450 / Confirmed CAD (coronary artery disease) / SNOMED CT 18770414 / Confirmed Elevated alkaline phosphatase level / SNOMED CT 176814834 / Confirmed Dysphagia / SNOMED CT 87910843 / Confirmed History of CVA in adulthood / SNOMED CT 0715559493 / Confirmed Knee pain, right / SNOMED CT 1878244179 / Confirmed Skin lesion of face / SNOMED CT 8318783464 / Confirmed Resolved: blood clots Resolved: COPD / SNOMED CT 72172476 Resolved: Stroke / ICD-9-CM 436 Resolved: Appendectomy / ICD-9-CM 47.0 Resolved: H/O: TIA / SNOMED CT 414409858 Resolved: HEMATURIA / ICD-9-CM 599.7 Resolved: Acid reflux / SNOMED CT 5642702424 Resolved: Glaucoma / SNOMED CT 82102393 Resolved: [place] - myocardial infarction / SNOMED CT 1187440386 Resolved: STEMI - ST elevation myocardial infarction / SNOMED CT 4549795478 Resolved: Cardiac arrest / SNOMED CT 9022060325 Canceled: H/O: anemia / SNOMED CT 6768712689 Canceled: Renal insufficiency syndrome NOS / ICD-9-CM 586 Canceled: Lymphoma / SNOMED CT 31202329 Canceled: TIA (transient ischemic attack) / SNOMED CT 625201205 Canceled: CVA (cerebral vascular accident) / SNOMED CT 457794324 Canceled: Osteoarthrosis / SNOMED CT 7206253768 Canceled: Alkaline phosphatase elevation / SNOMED CT 756248448 Canceled: Loose stools / SNOMED CT 0241146692 Canceled: COPD type B / SNOMED CT 275537777 Canceled: Acute UTI / SNOMED CT 1982709911 Canceled: History of CVA in adulthood / SNOMED CT 0227120365 Canceled: Overweight with body mass index (BMI) of 26 to 26.9 in adult / SNOMED CT 6520127830 Canceled: Non-smoker / SNOMED CT 23213928 Canceled: Patient had no falls in past year / SNOMED CT 8164145306 Canceled: Leg pain / SNOMED C (more content not included)... Normal [facility] Comment on above: Result Comment: Elec tronically Signed By: Gerard HINOJOSA, Artem Shields\.br\Date and Time Signed: 01/15/23 12:04 EDT Consent for Procedure/Surger yon 12-18-2022 Consent for Procedure/Surgery [id number] 0CD:127 Normal [facility] Ambulatory Visit Summaryon 0 12-10-2022 Ambulatory Visit Summary PIEDAD ALATORRE :1935 Visit Date:12/10/2022 Ambulatory Visit Instructions Your Diagnosis Globus sensation SYEDA (iron deficiency anemia) Schatzki's ring Dysphagia These Are Your Goals B/P will be in normal range for patient Interventions: Low impact exercises: 2 arm and 2 legs exercises- 10 repetitions daily of each or walk in hallway - Progressing Low sodium diet - Progressing Medication Compliance - Progressing Rview HTN education booklet with patient - Done Take B/p weekly and record - Progressing Lipid panel will be in normal range Interventions: 3 servings of fresh fruit and vegetables daily - Progressing Avoid fried food and food high in saturated fats - Progressing Low impact exercise- see above - Progressing Medication Compliance - Progressing Prevent any acute episodes of choking Interventions: Chew food thoroughly and eat slowly - Progressing Cut food in small pieces - Progressing Drink fluid between bites - Progressing Follow up with GI for esophageal dilation Medication Compliance - Progressing Sit upright after meals or eating for 30 -45 minutes - Progressing Your Care Team Attending Physician - Larisa HINOJOSA, Wolf Arana Primary Care Physician - PAULO HINOJOSA, Deonte Turpin This Is Your Medications List acetaminophen amlodipine (amLODIPine 5 mg Tab) aspirin (aspirin 81 mg oral tablet) atorvastatin (atorvastatin 80 mg Tab) carvedilol (carvedilol 25 mg Tab) clonidine (cloNIDine 0.1 mg tab) cycloSPORINE ophthalmic (Cequa 0.09% ophthalmic solution) docusate (docusate sodium 100 mg Cap) ferrous sulfate (ferrous sulfate 325 mg oral enteric coated tablet) ipratropium nasal (Atrovent 0.03% [place]) isosorbide mononitrate (isosorbide mononitrate 30 mg ER Tab) nitroglycerin (nitroglycerin 0.4 mg sublingual Tab) ocular lubricant (Refresh Optive) ondansetron (ondansetron 4 mg Tab) pantoprazole (pantoprazole 40 mg Oral EC Tab) polyethylene glycol 3350 (MiraLax) spironolactone (spironolactone 25 mg Tab) ticagrelor (ticagrelor 90 mg oral tablet) trazodone (traZODONE 50 mg Tab) Procedures Performed Colonoscopy (03/18/2022), Colonoscopy (03/18/2022), Radiofrequency ablation of medial branch of cervical nerve using fluoroscopic guidance (08/24/2018), cervical facet Medial Branch Block (05/25/2018), Cervical Facet Medial Branch Block (04/20/2018), lumbar facet medial branch block (11/24/2017), Radiofrequency ablation of medial branch of lumbar nerve using fluoroscopic guidance (09/29/2017), Lumbar Facet Medial Branch Block (09/08/2017), Injection of facet joint using fluoroscopic guidance (06/23/2017), Angioplasty (09/09/2014), Colonoscopy (10/10/2010), Heart Cath. (05/12/1994), Angioplasty of left leg artery, Appendectomy, Bunionectomy, Carotid angiogram, Carotid endarterectomy, Cataract extraction, D&C - Dilatation and curettage, EGD, kidney artery left stent placement, Removal of ovarian cyst, Stents, bilateral legs. Discharge Vitals Heart Rate (Peripheral) 69 Respiratory Rate 16 Blood Pressure 133/76 Height 157 cm Height 62 in Weight 63.1 kg Weight 138.82 lb BMI 25.6 What to do next Scheduled Follow-Up Appointments Friday 1:20 PM EDT With: PAULO HINOJOSA, Deonte Turpin Where: [facility] [address] [place] [address]- \.br\ Medications\.br\ What How Much When Why Instructions\.br\ Unchanged acetaminophen 325 Milligram By Mouth Every 6 hours as needed for as needed for pain\.br\ Unchanged amlodipine (amLODIPine 5 mg Tab) 1 Tablets By Mouth Every day\.br\ Unchanged aspirin (aspirin 81 mg oral tablet) 1 Tablets By Mouth Every day\.br\ Unchanged atorvastatin (atorvastatin 80 mg Tab) 1 Tablets By Mouth At bedtime\.br\ Unchanged carvedilol (carvedilol 25 mg Tab) 1 Tablets By Mouth 2 times a day\.br\ Unchanged clonidine (cloNIDine 0.1 mg tab) 0.1 Milligram By Mouth 2 times a day\.br\ Unchanged cycloSPORINE ophthalmic (Cequa 0.09% ophthalmic solution)\.br\ Unchanged docusate (docusate sodium 100 mg Cap) 1 Capsules By Mouth 2 times a day as needed for for constipation\.br\ Unchanged ferrous sulfate (ferrous sulfate 325 mg oral enteric coated tablet) 1 Tablets By Mouth Every day Anemia\.br\ Unchanged ipratropium nasal (Atrovent 0.03% [place]) 2 Sprays Nasal Inhalation 3 times a day as needed for Other (see comment) Vasomotor rhinitis\.br\ Unchanged isosorbide mononitrate (isosorbide mononitrate 30 mg ER Tab) 1 Tablets By Mouth 2 times a day\.br\ Unchanged nitroglycerin (nitroglycerin 0.4 mg sublingual Tab) 1 Tablets Sublingual Every 5 minutes as needed for for chest pain\.br\ Unchanged ocular lubricant (Refresh Optive) 1 Drops Both eyes 3 times a day\.br\ Unchanged ondansetron (ondansetron 4 mg Tab) 1 Tablets By Mouth Every 8 hours\.br\ Unchanged pantoprazole (pantoprazole 40 mg Oral EC Tab) 40 Milligram By Mouth Every day\.br\ Unchanged polyethylene glycol 3350 (MiraLax) 17 Gram By Mouth Every day\.br\ Unchanged spironolactone (spironolactone 25 mg Tab) 1 Tablets By Mouth Every day HTN - Hypertension\.br\ Unchanged ticagrelor (ticagrelor 90 mg oral tablet) 1 Tablets By Mouth 2 times a day\.br\ Unchanged trazodone (traZODONE 50 mg Tab) 1 Tablets By Mouth Once a day (at bedtime) Insomnia\.br\ Allergies\.br\ lisinopril (Angioedema)\.br\ Latex (Rash)\.br\ Skelaxin (SOB - Shortness of breath)\.br\ penicillin (Rash, SOB - Shortness of breath)\.br\ shellfish\.br\ Problems\.br\ Ongoing - Any problem that you are currently receiving treatment for.\.br\ Anemia\.br\ Anxiety disorder\.br\ Asthma\.br\ CAD (coronary artery disease)\.br\ Carotid artery stenosis\.br\ COPD type B\.br\ Dysphagia\.br\ Edema\.br\ Elevated alkaline phosphatase level\.br\ Female stress incontinence\.br\ History of CVA in adulthood\.br\ HTN - Hypertension\.br\ Hyperglycemia\.br \ Hyperlipidemia\.b r\ Insomnia\.br\ Intertrigo\.br\ Knee pain, right\.br\ Leg weakness\.br\ Lumbar radiculopathy\.br \ Neck pain\.br\ Seborrheic keratoses\.br\ Shoulder pain\.br\ Skin lesion of face\.br\ Stage 3 chronic kidney disease\.br\ Vasomotor rhinitis\.br\ Historical - Any problem that you are no longer receiving treatment for.\.br\ Acid reflux\.br\ Appendectomy\.br\ blood clots\.br\ Cardiac arrest\.br\ COPD\.br\ Glaucoma\.br\ H/O: TIA\.br\ HEMATURIA\.br\ [place] - myocardial infarction\.br\ STEMI - ST elevation myocardial infarction\.br\ Stroke\.br\ \.br\ [facility] Gastroenterology Office/Clin ic Noteon 12-10-2022 Gastroenterology Office/Clinic Note Chief Complaint dysphagia and GERD HPI Staff Patient is a(n) 87 year old female who presents today for a(n) 10 month follow up for dysphagia & GERD. Takes Pantoprazole daily. Currently resides at [facility] - requests medication requests be sent there. Dysphagia: When did it start: within the last 1.5-2 years Solids or liquids: Solids and liquids - feels like there is a lump in her throat Frequency ( every meal? Or less often): during meals and especially at HS Previous food impaction: no Last visit 01/30/22 w/Dr. Hare: 1. 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 She has been on iron for almost 1 year. Her iron panel is consistent with iron deficiency with low ferritin at 6. I will proceed with an EGD and colonoscopy to evaluate her anemia. She has a known recent normal B12 and folic acid levels. 2. Dysphagia (R13.10: Dysphagia, unspecified) She reported that she has a history of dysphagia previously dilated. She reports that her dysphagia symptoms are fairly controlled at this point with no need for further dilation at this time. 3. Elevated alkaline phosphatase level (R74.8: Abnormal levels of other serum enzymes) The patient has mildly elevated alkaline phosphatase, normal AST, ALT, and normal bilirubin. I will proceed with GGT. If GGT is elevated, then we will refer to a hepatic source of alkaline phosphatase and then we will proceed with a biliary ultrasound and testing for primary biliary cholangitis. Ordered labs at last visit not completed. PCP labs (CBC, CMP) 09/21/22 at outside facility. Colonoscopy 03/18/22 w/Dr. Hare: Aborted procedure at the sigmoid level secondary to poor prep. EGD 03/18/22: 1. Nonobstructive distal esophageal Schatzki ring, no dilation performed secondary to absence of dysphagia 2. Large hiatal hernia, 8 cm with normal gastric and duodenal mucosa Recommended a repeat colonoscopy in 3 months - not done. History of Present Illness Feels globus sensation Sometimes has reflux at night, no heartburn Occasionally foods stuck as well and she drinks water to push it down We don't have updated list of medication and she doesn't have it Review of Systems PHQ Score Initial Depression Screen Score: 0 Physical Exam Vitals & Measurements HR: 69(Peripheral) RR: 16 BP: 133/76 SpO2: 99% HT: 62 in HT: 157 cm WT: 63.1 kg WT: 138.82 lb BMI: 25.6 General: alert, no acute distress HEENT: atraumatic normocephalic Cardiovascular: regular rate and rhythm, normal peripheral perfusion Respiratory: Lungs CTA, respirations non labored Extremities: no deformity, no trauma Abdomen: Benign, soft, nontender nondistended Assessment/Plan 1. Globus sensation (R09.89: Other specified symptoms and signs involving the circulatory and respiratory systems) Could be from reflux/GERD ? less likely motility or esophageal patch vs functional would switch PPI to before dinner LFM for GERD 2. SYEDA (iron deficiency anemia) (D50.9: Iron deficiency anemia, unspecified) Now repeat CBC 2 months ago showed Hb 10.6 , normal MCV, pt and RDW CMP unremarkable 3. Schatzki's ring (K22.2: Esophageal obstruction) Will do EGD with dilation 4. Dysphagia (R13.10: Dysphagia, unspecified) likely due to #3 Follow-up No qualifying data available Problem List/Past Medical History Ongoing Anemia Anxiety disorder Asthma CAD (coronary artery disease) Carotid artery stenosis COPD type B Dysphagia Edema Elevated alkaline phosphatase level Female stress incontinence History of CVA in adulthood HTN - Hypertension Hyperglycemia Hyperlipidemia Insomnia Intertrigo Knee pain, right Leg weakness Lumbar radiculopathy Neck pain Seborrheic keratoses Shoulder pain Skin lesion of face Stage 3 chronic kidney disease Vasomotor rhinitis Historical Acid reflux Appendectomy blood clots Cardiac arrest COPD Glaucoma H/O: TIA HEMATURIA [place] - myocardial infarction STEMI - ST elevation myocardial infarction Stroke Procedure/Surgical History Colonoscopy (03/18/2022), Colonoscopy (03/18/2022), Radiofrequency ablation of medial branch of cervical nerve using fluoroscopic guidance (08/24/2018), cervical facet Medial Branch Block (05/25/2018), Cervical Facet Medial Branch Block (04/20/2018), lumbar facet medial branch block (11/24/2017), Radiofrequency ablation of medial branch of lumbar nerve using fluoroscopic guidance (09/29/2017), Lumbar Facet Medial Branch Block (09/08/2017), Injection of facet joint using fluoroscopic guidance (06/23/2017), Angioplasty (09/09/2014), Colonoscopy (10/10/2010), Heart Cath. (05/12/1994), Angioplasty of left leg artery, Appendectomy, Bunionectomy, Carotid angiogram, Carotid endarterectomy, Cataract extraction, D&C - Dilatation and curettage, EGD, kidney artery left stent placement, Removal of ovarian cyst, Stents, bilateral (more content not included)... Normal [facility] Comment on above: Result Comment: Elec tronically Signed By: Larisa HINOJOSA, Wolf Arana\.br\Date and Time Signed: 12/10/22 10:36 EDT Fdc Recordson 11-26 Fdc Records [id number] 0CD:127 Normal [facility] Family Medicine Office/Clini c Noteon 11-22-2022 Family Medicine Office/Clinic Note Chief Complaint Patient here for 3 month f/u on htn, chol, thyroid--had labs done in September at [facility]. History of Present Illness Here for med follow up. She has htn and CAD. She denies CP or SOB. She is on a statin. She c/o pain in both shoulders. It hurts to lift and use her arms. also sore to touch. She is starting to have trouble swallowing again. Had dilation in the past. She has chronic eye dryness and irritation. Sees ophtho. Review of Systems PHQ Score Initial Depression Screen Score: 0 Physical Exam Vitals & Measurements T: 36.4 ?C(Oral) HR: 60(Peripheral) BP: 132/76 SpO2: 98% HT: 62 in HT: 157 cm WT: 63.5 kg WT: 139.7 lb BMI: 25.76 General: Well developed, well nourished, in no acute distress Eyes: Pupils equal, round, and reactive to light. Conjunctivae and sclerae normal, and extraocular movements intact Ears: grossly normal hearing Nose: not addressed Mouth: MMM. Oropharynx and posterior pharynx without lesions or exudates. Tongue WNL Neck: Neck supple. No lymphadenopathy. Trachea midline. No thyroid, masses, tenderness, or enlargement noted. No bruit. Lungs: Normal respiratory effort and clear to auscultation Cardio: Regular rate and rhythm, normal S1 and S2, no murmur, no rub Abdomen: Soft, non-distended, non-tender Musculoskeletal: _ambulates with walker Extremity: No clubbing, cyanosis or edema. Neurologic: _no focal deficits noted Skin: No rashes, ulcerations, or suspicious lesions Mental Status: Alert and oriented x3. Normal mood and affect Assessment/Plan 1. HTN - Hypertension (I10: Essential (primary) hypertension) stay on amlodipine, carvedilol, spironolactone, Imdur BP controlled 2. CAD (coronary artery disease) (I25.10: Atherosclerotic heart disease of [place] coronary artery without angina pectoris) stable keep cardiology follow ups 3. Hyperlipidemia (E78.2: Mixed hyperlipidemia) stay on atorvastatin lab is ok 4. COPD type B (J44.9: Chronic obstructive pulmonary disease, unspecified) she is at her baseline denies need for inhaler 5. Hyperglycemia (R73.9: Hyperglycemia, unspecified) keep on diet 6. History of CVA in adulthood (Z86.73: Personal history of transient ischemic attack (TIA), and cerebral infarction without residual deficits) stay on asa 7. Elevated alkaline phosphatase level (R74.8: Abnormal levels of other serum enzymes) mild stable will monitor 8. Stage 3 chronic kidney disease (N18.3: Chronic kidney disease, stage 3 (moderate)) lab is stable 9. Insomnia (G47.00: Insomnia, unspecified) on trazodone 10. Anemia (D64.9: Anemia, unspecified) lab is stable 11. Adult BMI 25.0-25.9 kg/sq m (Z68.25: Body mass index [BMI] 25.0-25.9, adult) The standard range for ages 18 and older is >=18.5 and < 25 kg/m2. Your BMI today was above this range, this falls in the overweight to obese category and there are medical benefits to weight loss. We can offer counselling, referral, and/or medical support in addressing this problem. Your BMI and weight management will be followed at subsequent visits. 12. Overweight (E66.3: Overweight) 13. Shoulder pain (M25.519: Pain in unspecified shoulder) will refer to to PT at her facitlity 14. Dysphagia (R13.10: Dysphagia, unspecified) will refer back to GI Ordered: [facility] Internal Ambulatory Referral Follow-up With When Contact Information PAULO HINOJOSA, ROCKY Diaz In 3 months [facility] [place] [address] [place] [address]- Additional Instructions: Patient Education Hypertension, Adult, Qkva-[id number] Problem List/Past Medical History Ongoing Anemia Anxiety disorder Asthma CAD (coronary artery disease) Carotid artery stenosis COPD type B Dysphagia Edema Elevated alkaline phosphatase level Female stress incontinence History of CVA in adulthood HTN - Hypertension Hyperglycemia Hyperlipidemia Insomnia Intertrigo Knee pain, right Leg weakness Lumbar radiculopathy Neck pain Seborrheic keratoses Shoulder pain Skin lesion of face Stage 3 chronic kidney disease Vasomotor rhinitis Historical Acid reflux Appendectomy blood clots Cardiac arrest COPD Glaucoma H/O: TIA HEMATURIA [place] - myocardial infarction STEMI - ST elevation myocardial infarction Stroke Procedure/Surgical History Colonoscopy (03/18/2022), Colonoscopy (03/18/2022), Radiofrequency ablation of medial branch of cervical nerve using fluoroscopic guidance (08/24/2018), cervical facet Medial Branch Block (05/25/2018), Cervical Facet Medial Branch Block (04/20/2018), lumbar facet medial branch block (11/24/2017), Radiofrequency ablation of medial branch of lumbar nerve using fluoroscopic guidance (09/29/2017), Lumbar Facet Medial Branch Block (09/08/2017), Injection of facet joint using fluoroscopic guidance (06/23/2017), Angioplasty (09/09/2014), Colonoscopy (10/10/2010), Heart Cath. (05/12/1994), Angioplasty of left leg artery, Appen (more content not included)... Normal [facility] Comment on above: Result Comment: Elec tronically Signed By: PAULO HINOJOSA, Deonte Turpin\.br\Date and Time Signed: 11/22/22 14:14 EDT Lab Reportson 11-22-2022 Lab Reports [id number] 0CD:127 Normal [facility] Patient Educationon 11-23-19 Patient Education Cardiovascular Hypertension, Adult Hypertension is another name for high blood pressure. High blood pressure forces your heart to work harder to pump blood. This can cause problems over time. There are two numbers in a blood pressure reading. There is a top number (systolic) over a bottom number (diastolic). It is best to have a blood pressure that is below 120/80. What are the causes? The cause of this condition is not known. Some other conditions can lead to high blood pressure. What increases the risk? Some lifestyle factors can make you more likely to develop high blood pressure: ? Smoking. ? Not getting enough exercise or physical activity. ? Being overweight. ? Having too much fat, sugar, calories, or salt (sodium) in your diet. ? Drinking too much alcohol. Other risk factors include: ? Having any of these conditions: ? Heart disease. ? Diabetes. ? High cholesterol. ? Kidney disease. ? Obstructive sleep apnea. ? Having a family history of high blood pressure and high cholesterol. ? Age. The risk increases with age. ? Stress. What are the signs or symptoms? High blood pressure may not cause symptoms. Very high blood pressure (hypertensive crisis) may cause: ? Headache. ? Fast or uneven heartbeats (palpitations). ? Shortness of breath. ? Nosebleed. ? Vomiting or feeling like you may vomit (nauseous). ? Changes in how you see. ? Very bad chest pain. ? Feeling dizzy. ? Seizures. How is this treated? ? This condition is treated by making healthy lifestyle changes, such as: ? Eating healthy foods. ? Exercising more. ? Drinking less alcohol. ? Your doctor may prescribe medicine if lifestyle changes do not help enough and if: ? Your top number is above 130. ? Your bottom number is above 80. ? Your personal target blood pressure may vary. Follow these instructions at home: Eating and drinking ? If told, follow the DASH eating plan. To follow this plan: ? Fill one half of your plate at each meal with fruits and vegetables. ? Fill one fourth of your plate at each meal with whole grains. Whole grains include whole-wheat pasta, brown rice, and whole-grain bread. ? Eat or drink low-fat dairy products, such as skim milk or low-fat yogurt. ? Fill one fourth of your plate at each meal with low-fat (lean) proteins. Low-fat proteins include fish, chicken without skin, eggs, beans, and tofu. ? Avoid fatty meat, cured and processed meat, or chicken with skin. ? Avoid pre-made or processed food. ? Limit the amount of salt in your diet to less than 1,500 mg each day. ? Do not drink alcohol if: ? Your doctor tells you not to drink. ? You are , may be , or are planning to become . ? If you drink alcohol: ? Limit how much you have to: ? 0?1 drink a day for women. ? 0?2 drinks a day for men. ? Know how much alcohol is in your drink. In the [place] one drink equals one 12 oz bottle of beer (355 mL), one 5 oz glass of wine (148 mL), or one 1? oz glass of hard liquor (44 mL). Lifestyle ? Work with your doctor to stay at a healthy weight or to lose weight. Ask your doctor what the best weight is for you. ? Get at least 30 minutes of exercise that causes your heart to beat faster (aerobic exercise) most days of the week. This may include walking, swimming, or biking. ? Get at least 30 minutes of exercise that strengthens your muscles (resistance exercise) at least 3 days a week. This may include lifting weights or doing Pilates. ? Do not smoke or use any products that contain nicotine or tobacco. If you need help quitting, ask your doctor. ? Check your blood pressure at home as told by your doctor. ? Keep all follow-up visits. Medicines ? Take cdwi-elw-mtnxnly and prescription medicines only as told by your doctor. Follow directions carefully. ? Do not skip doses of blood pressure medicine. The medicine does not work as well if you skip doses. Skipping doses also puts you at risk for problems. ? Ask your doctor about side effects or reactions to medicines that you should watch for. Contact a doctor if: ? You think you are having a reaction to the medicine you are taking. ? You have headaches that keep coming back. ? You feel dizzy. ? You have swelling in your ankles. ? You have trouble with your vision. Get help right away if: ? You get a very bad headache. ? You start to feel mixed up (confused). ? You feel weak or numb. ? You feel faint. ? You have very bad pain in your: ? Chest. ? Belly (abdomen). ? You vomit more than once. ? You have trouble breathing. These symptoms may be an emergency. Get help right away. Call 911. ? Do not wait to see if the symptoms will go away. ? Do not drive yourself to the hospital. Summary ? Hypertension is another name for high blood pressure. ? High blood pressure forces your heart to work harder to pump blood. ? For m (more content not included)... Normal [facility] Fdc Recordson 10-23 Fdc Records [id number] 0CD:127 Normal [facility] PT - Progress Noteson 2022 PT - Progress Notes [id number] 0CD:127 Normal [facility] Physician Orderon 09-26-2022 Physician Order [id number] 0CD:127 Normal [facility] CBC AUTO DIFFon 09-20-2022 BASO # 0.1 103/ul Normal 0.0-0.1 [facility] Comment on above: Performed By: #### C BC #### [facility] [address] [place] [address] Dr. Carla Little Basophils/100 WBC (Bld) 0.9 % Normal 0.2-2.0 [facility] Comment on above: Performed By: #### C BC #### [facility] [address] [place] [address] Dr. Carla Little EO # 0.4 103/ul Normal 0.0-0.7 [facility] Comment on above: Performed By: #### C BC #### [facility] [address] [place] [address] Dr. Carla Little Eosinophils/100 WBC (Bld) 5.0 % Normal 0.9-7.0 [facility] Comment on above: Performed By: #### C BC #### [facility] [address] [place] [address] Dr. Carla Little Erythrocyte distribution width (RBC) [Ratio] 14.1 % Normal 11.0-15.0 [facility] Comment on above: Performed By: #### C BC #### [facility] [address] [place] [address] Dr. Carla Little Hematocrit (Bld) [Volume fraction] 34.5 % Critically low 36.0-48.0 [facility] Comment on above: Performed By: #### C BC #### [facility] [address] [place] [address] Dr. Carla Little Hemoglobin (Bld) [Mass/Vol] 10.6 g/dL Critically low 12.0-16.0 [facility] Comment on above: Performed By: #### C BC #### [facility] [address] [place] [address] Dr. Carla Little IG # 0.03 10e3/ul Normal 0.00-0.03 [facility] Comment on above: Performed By: #### C BC #### [facility] [address] [place] [address] Dr. Carla Little IG % 0.4 % Normal 0.0-0.5 [facility] Comment on above: Performed By: #### C BC #### [facility] [address] [place] [address] Dr. Carla Little LYMPH # 1.5 103/ul Normal 1.2-3.8 [facility] Comment on above: Performed By: #### C BC #### [facility] [address] [place] [address] Dr. Carla Little Lymphocytes/100 WBC (Bld) 20.9 % Normal 20.5-60.[address] [facility] Comment on above: Performed By: #### C BC #### [facility] [address] [place] [address] Dr. Carla Little MANUAL DIFF REQ NO Normal [facility] Comment on above: Performed By: #### C BC #### [facility] [address] [place] [address] Dr. Carla Little MCH (RBC) [Entitic mass] 28.7 pg Normal 26.7-34.0 [facility] Comment on above: Performed By: #### C BC #### [facility] [address] [place] [address] Dr. Carla Little MCHC (RBC) [Mass/Vol] 30.7 g/dL Normal 29.9-35.[address] [facility] Comment on above: Performed By: #### C BC #### [facility] [address] [place] [address] Dr. Carla Little MCV (RBC) [Entitic vol] 93.5 fL Normal 81.0-99.0 [facility] Comment on above: Performed By: #### C BC #### [facility] [address] [place] [address] Dr. Carla Little MONO # 0.6 103/ul Normal 0.3-0.8 [facility] Comment on above: Performed By: #### C BC #### [facility] [address] [place] [address] Dr. Carla Little Monocytes/100 WBC (Bld) 9.1 % Normal 1.7-12.0 [facility] Comment on above: Performed By: #### C BC #### [facility] [address] [place] [address] Dr. Carla Little NEUT # 4.5 103/ul Normal 1.4-6.[address] [facility] Comment on above: Performed By: #### C BC #### [facility] [address] [place] [address] Dr. Carla Little Neutrophils/100 WBC (Bld) 63.7 % Normal 43.0-75.[address] [facility] Comment on above: Performed By: #### C BC #### [facility] [address] [place] [address] Dr. Carla Little Platelet mean volume (Bld) [Entitic vol] 9.8 fL Normal 9.5-13.[address] [facility] Comment on above: Performed By: #### C BC #### [facility] [address] [place] [address] Dr. Carla Little PLT 222 103/ul Normal 150-[address] [facility] Comment on above: Performed By: #### C BC #### [facility] [address] [address] [address] Carla Little RBC 3.69 106/ul Critically low 4.20-5.40 [facility] Comment on above: Performed By: #### C BC #### [facility] [address] [address] [address] Carla Little WBC 7.0 103/ul Normal 4.0-11.0 [facility] Comment on above: Performed By: #### C BC #### [facility] [address] [address] [address] Carla Little LIPID PROFILEon 09-20-2022 CHOL-HDL RATIO NORM SEE BELOW Normal [facility] Comment on above: Result Comment: 3.3 - 4.4 LOW RISK 4.4 - 7.1 AVERAGE RISK 7.1 - 11.0 MODERATE RISK >11.0 HIGH RISK Performed By: #### L IPID, CMP #### [facility] [address] [address] [address] Carla Little Cholesterol [Mass/Vol] 124 mg/dL Normal <=[address] [facility] Comment on above: Performed By: #### L IPID, CMP #### [facility] [address] [address] [address] Carla Little Cholesterol in HDL [Mass/Vol] 47 mg/dL Normal 40-[address] [facility] Comment on above: Performed By: #### L IPID, CMP #### [facility] [address] [address] [address] Carla Little Cholesterol in LDL [Mass/Vol] 61.0 mg/dL Normal [facility] Comment on above: Performed By: #### L IPID, CMP #### [facility] [address] [address] [address] Carla Little Cholesterol.total/ Cholesterol in HDL [Mass ratio] 2.6 {ratio} Normal [facility] Comment on above: Performed By: #### L IPID, CMP #### [facility] [address] [address] [address] Carla Little HDL NORMAL > or = 60 mg/dl - LO W CARDIOVASCULAR RISK <40 mg/dl - HIGH CARDIOVASCULAR RISK Normal [facility] Comment on above: Performed By: #### L IPID, CMP #### [facility] [address] [address] [address] Carla Little LDL CALC NORMAL SEE BELOW Normal [facility] Comment on above: Result Comment: <100 mg/dl OPTIMAL 100 - 129 mg/dl NEAR OR ABOVE OPTIMAL 130 - 159 mg/dl BORDERLINE HIGH 160 - 189 mg/dl HIGH >190 mg/dl VERY HIGH Performed By: #### L IPID, CMP #### [facility] [address] [place] [address] Dr. Carla Little Triglyceride [Mass/Vol] 80 mg/dL Normal <=150 [facility] Comment on above: Performed By: #### L IPID, CMP #### [facility] [address] [place] [address] Dr. Carla Little VLDL CALC 16.0 mg/dL Normal [facility] Comment on above: Performed By: #### L IPID, CMP #### [facility] [address] [place] [address] Dr. Carla Little PROF 14(COMP METB)on 023 Albumin [Mass/Vol] 3.4 g/dL Normal 3.4-5.0 [facility] Comment on above: Performed By: #### L IPID, CMP #### [facility] [address] [place] [address] Dr. Carla Little Albumin/Globulin [Mass ratio] 1.2 {ratio} Normal [facility] Comment on above: Performed By: #### L IPID, CMP #### [facility] [address] [place] [address] Dr. Carla Little ALP [Catalytic activity/Vol] 137 U/L Critically high 46-116 [facility] Comment on above: Performed By: #### L IPID, CMP #### [facility] [address] [place] [address] Dr. Carla Little ALT [Catalytic activity/Vol] 20 U/L Normal 14-59 [facility] Comment on above: Performed By: #### L IPID, CMP #### [facility] [address] [place] [address] Dr. Carla Little Anion gap [Moles/Vol] 14.2 mmol/L Normal [facility] Comment on above: Performed By: #### L IPID, CMP #### [facility] [address] [place] [address] Dr. Carla Little AST [Catalytic activity/Vol] 14 U/L Critically low 15-37 [facility] Comment on above: Performed By: #### L IPID, CMP #### [facility] [address] [place] [address] Dr. aCrla Little Bilirubin [Mass/Vol] 0.3 mg/dL Normal 0.2-1.0 [facility] Comment on above: Performed By: #### L IPID, CMP #### [facility] [address] [place] [address] Dr. Carla Little Calcium [Mass/Vol] 8.8 mg/dL Normal 8.5-10.1 [facility] Comment on above: Performed By: #### L IPID, CMP #### [facility] [address] [place] [address] Dr. Carla Little Chloride [Moles/Vol] 108 mmol/L Critically high 98-107 [facility] Comment on above: Performed By: #### L IPID, CMP #### [facility] [address] [place] [address] Dr. Carla Little CO2 [Moles/Vol] 27.1 mmol/L Normal 21.0-32.0 [facility] Comment on above: Performed By: #### L IPID, CMP #### [facility] [address] [place] [address] Dr. Carla Little Creatinine [Mass/Vol] 1.57 mg/dL Critically high 0.55-1.02 [facility] Comment on above: Performed By: #### L IPID, CMP #### [facility] [address] [place] [address] Dr. Carla Little EGFR-AF RUSSIAN 38 mL/min/1.73m2 Critically low >=60 [facility] Comment on above: Performed By: #### L IPID, CMP #### [facility] [address] [address] [address] Carla Little EGFR-NON AF RUSSIAN 31 mL/min/1.73m2 Critically low >=60 [facility] Comment on above: Performed By: #### L IPID, CMP #### [facility] [address] [address] [address] Carla Little Globulin (S) [Mass/Vol] 2.8 g/dL Normal [facility] Comment on above: Performed By: #### L IPID, CMP #### [facility] [address] [address] [address] Carla Little Glucose [Mass/Vol] 108 mg/dL Critically high 74-106 [facility] Comment on above: Performed By: #### L IPID, CMP #### [facility] [address] [address] [address] Carla Little Potassium [Moles/Vol] 4.3 mmol/L Normal 3.5-5.1 [facility] Comment on above: Performed By: #### L IPID, CMP #### [facility] [address] [address] [address] Carla Little Protein [Mass/Vol] 6.2 g/dL Critically low 6.4-8.2 [facility] Comment on above: Performed By: #### L IPID, CMP #### [facility] [address] [address] [address] Carla Little Sodium [Moles/Vol] 145 mmol/L Normal 136-145 [facility] Comment on above: Performed By: #### L IPID, CMP #### [facility] [address] [address] [address] Carla Little Urea nitrogen [Mass/Vol] 27.0 mg/dL Critically high 7.0-18.0 [facility] Comment on above: Performed By: #### L IPID, CMP #### [facility] [address] [address] [address] Carla Little Urea nitrogen/Creatinin e [Mass ratio] 17.2 mg/mg Normal [facility] Comment on above: Performed By: #### L IPID, CMP #### [facility] [address] [place], [place] [address] Dr. Carla Little Fdc Recordson 09-17 Fdc Records [id number] 0CD:127 Normal [facility] Fdc Recordson 09-16 Fdc Records [id number] 0CD:127 Normal [facility] Retail - Clinical Noteon Retail - Clinical Note [id number] 0CD:127 Normal [facility] PT - Progress Noteson 2022 PT - Progress Notes [id number] 0CD:127 Normal [facility] Interdisciplinary Note - Soc ial Workeron 08-27-2022 Interdisciplinary Note - E Learning Developer This SW attempted to reach patient again today regarding concerns for transportation to and from medical appointments. There was no answer and no voicemail was available. Patient does reside at [facility]. SW will remain available. Normal [facility] Interdisciplinary Note - Soc ial Workeron 08-07-2022 Interdisciplinary Note - E Learning Developer This SW recieved a consult for SDOH due to it being marked that there were concerns related to transportation. This SW tried to contact patient however there was no answer and voicemail was not available. SW will try to reach her again at a later time. Normal [facility] Physician Referralon 023 Physician Referral [id number] 0CD:127 Normal [facility] Screenson 08-01-2022 Screens [id number] 0CD:127 Normal [facility] Ambulatory Visit Summaryon 0 07-31-2022 Ambulatory Visit Summary PIEDAD ALATORRE :1935 Visit Date:07/31/2022 Ambulatory Visit Instructions Your Diagnosis Initial Medicare annual wellness visit HTN - Hypertension COPD type B On statin therapy Glaucoma Anxiety disorder BMI 24.0-24.9, adult These Are Your Goals B/P will be in normal range for patient Interventions: Low impact exercises: 2 arm and 2 legs exercises- 10 repetitions daily of each or walk in hallway - Progressing Low sodium diet - Progressing Medication Compliance - Progressing Rview HTN education booklet with patient - Done Take B/p weekly and record - Progressing Lipid panel will be in normal range Interventions: 3 servings of fresh fruit and vegetables daily - Progressing Avoid fried food and food high in saturated fats - Progressing Low impact exercise- see above - Progressing Medication Compliance - Progressing Prevent any acute episodes of choking Interventions: Chew food thoroughly and eat slowly - Progressing Cut food in small pieces - Progressing Drink fluid between bites - Progressing Follow up with GI for esophageal dilation Medication Compliance - Progressing Sit upright after meals or eating for 30 -45 minutes - Progressing Your Care Team Attending Physician - Deonte ROSARIO MD Primary Care Physician - Deonte ROSARIO MD This Is Your Medications List acetaminophen amlodipine (amLODIPine 5 mg Tab) aspirin (aspirin 81 mg oral tablet) atorvastatin (atorvastatin 80 mg Tab) carvedilol (carvedilol 25 mg Tab) clonidine (cloNIDine 0.1 mg tab) cycloSPORINE ophthalmic (Cequa 0.09% ophthalmic solution) docusate (docusate sodium 100 mg Cap) ferrous sulfate (ferrous sulfate 325 mg oral enteric coated tablet) ipratropium nasal (Atrovent 0.03% [place]) isosorbide mononitrate (isosorbide mononitrate 30 mg ER Tab) lorazepam (LORazepam 0.5 mg Tab) nitroglycerin (nitroglycerin 0.4 mg sublingual Tab) ocular lubricant (Refresh Optive) ondansetron (ondansetron 4 mg Tab) pantoprazole (pantoprazole 40 mg Oral EC Tab) polyethylene glycol 3350 (MiraLax) spironolactone (spironolactone 25 mg Tab) ticagrelor (ticagrelor 90 mg oral tablet) trazodone (traZODONE 50 mg Tab) Procedures Performed Colonoscopy (03/18/2022), Colonoscopy (03/18/2022), Radiofrequency ablation of medial branch of cervical nerve using fluoroscopic guidance (08/24/2018), cervical facet Medial Branch Block (05/25/2018), Cervical Facet Medial Branch Block (04/20/2018), lumbar facet medial branch block (11/24/2017), Radiofrequency ablation of medial branch of lumbar nerve using fluoroscopic guidance (09/29/2017), Lumbar Facet Medial Branch Block (09/08/2017), Injection of facet joint using fluoroscopic guidance (06/23/2017), Angioplasty (09/09/2014), Colonoscopy (10/10/2010), Heart Cath. (05/12/1994), Angioplasty of left leg artery, Appendectomy, Bunionectomy, Carotid angiogram, Carotid endarterectomy, Cataract extraction, D&C - Dilatation and curettage, EGD, kidney artery left stent placement, Removal of ovarian cyst, Stents, bilateral legs. Discharge Vitals Temperature (Oral) 36.5 ?C Heart Rate (Peripheral) 84 Respiratory Rate 18 Blood Pressure 134/70 Height 157.48 cm Height 62 in Weight 61 kg Weight 134.2 lb BMI 24.6 What to do next Scheduled Follow-Up Appointments Friday 1:40 PM EDT With: Deonte ROSARIO MD Where: [facility] [address], [place] [address]- \.br\ You Need to Schedule the Following Appointments\.br\ Follow Up with Deonte ROSARIO MD, MED When: In 3 months\.br\ Where:\.br\ [facility] [address], [address]\.br\ [place] [address]-\.br\ \.br\ Someone Will Contact You Regarding These Appointments\.br\ [facility] External Ambulatory Referral, Dermatology, 07/31/22 14:28:00 EDT, Skin lesion of face\.br\ Medications\.br\ What How Much When Why Instructions\.br\ Unchanged acetaminophen 325 Milligram By Mouth Every 6 hours as needed for as needed for pain\.br\ Unchanged amlodipine (amLODIPine 5 mg Tab) 1 Tablets By Mouth Every day\.br\ Unchanged aspirin (aspirin 81 mg oral tablet) 1 Tablets By Mouth Every day\.br\ Unchanged atorvastatin (atorvastatin 80 mg Tab) 1 Tablets By Mouth At bedtime\.br\ Unchanged carvedilol (carvedilol 25 mg Tab) 1 Tablets By Mouth 2 times a day\.br\ Unchanged clonidine (cloNIDine 0.1 mg tab) 0.1 Milligram By Mouth 2 times a day\.br\ Unchanged cycloSPORINE ophthalmic (Cequa 0.09% ophthalmic solution)\.br\ Unchanged docusate (docusate sodium 100 mg Cap) 1 Capsules By Mouth 2 times a day as needed for for constipation\.br\ Unchanged ferrous sulfate (ferrous sulfate 325 mg oral enteric coated tablet) 1 Tablets By Mouth Every day Anemia\.br\ Unchanged ipratropium nasal (Atrovent 0.03% [place]) 2 Sprays Nasal Inhalation 3 times a day as needed for Other (see comment) Vasomotor rhinitis\.br\ Unchanged isosorbide mononitrate (isosorbide mononitrate 30 mg ER Tab) 1 Tablets By Mouth 2 times a day Pickup at [facility]\.br\ Unchanged lorazepam (LORazepam 0.5 mg Tab) See instructions Anxiety disorder Take 1/ 2 tablet by mouth every 8 hours as needed for anxiety. OARRS reviewed, no concerns. F41.9 \.br\ Unchanged nitroglycerin (nitroglycerin 0.4 mg sublingual Tab) 1 Tablets Sublingual Every 5 minutes as needed for for chest pain\.br\ Unchanged ocular lubricant (Refresh Optive) 1 Drops Both eyes 3 times a day\.br\ Unchanged ondansetron (ondansetron 4 mg Tab) 1 Tablets By Mouth Every 8 hours\.br\ Unchanged pantoprazole (pantoprazole 40 mg Oral EC Tab) 40 Milligram By Mouth Every day\.br\ Unchanged polyethylene glycol 3350 (MiraLax) 17 Gram By Mouth Every day\.br\ Unchanged spironolactone (spironolactone 25 mg Tab) 1 Tablets By Mouth Every day HTN - Hypertension\.br\ Unchanged ticagrelor (ticagrelor 90 mg oral tablet) 1 Tablets By Mouth 2 times a day\.br\ Unchanged trazodone (traZODONE 50 mg Tab) 1 Tablets By Mouth Once a day (at bedtime) Insomnia\.br\ Pharmacy Information\.br\ [facility]: [address] [place], [place] [id number] [phone]\.br\ Allergies\.br\ lisinopril (Angioedema)\.br\ Latex (Rash)\.br\ Skelaxin (SOB - Shortness of breath)\.br\ penicillin (Rash, SOB - Shortness of breath)\.br\ shellfish\.br\ Problems\.br\ Ongoing - Any problem that you are currently receiving treatment for.\.br\ Anemia\.br\ Anxiety disorder\.br\ Asthma\.br\ BMI 24.0-24.9, adult\.br\ CAD (coronary artery disease)\.br\ Carotid artery stenosis\.br\ COPD type B\.br\ Dysphagia\.br\ Edema\.br\ Elevated alkaline phosphatase level\.br\ Female stress incontinence\.br\ History of CVA in adulthood\.br\ HTN - Hypertension\.br\ Hyperglycemia\.br \ Hyperlipidemia\.b r\ Insomnia\.br\ Intertrigo\.br\ Knee pain, right\.br\ Leg weakness\.br\ Lumbar radiculopathy\.br \ Neck pain\.br\ Seborrheic keratoses\.br\ Shoulder pain\.br\ Skin lesion of face\.br\ Stage 3 chronic kidney disease\.br\ Vasomotor rhinitis\.br\ Historical - Any problem that you are no longer receiving treatment for.\.br\ Acid reflux\.br\ Appendectomy\.br\ blood clots\.br\ Cardiac arrest\.br\ COPD\.br\ Glaucoma\.br\ H/O: TIA\.br\ HEMATURIA\.br\ [place] - myocardial infarction\.br\ STEMI - ST elevation myocardial infarction\.br\ Stroke\.br\ Education Materials\.br\ Glaucoma\.br\ \.br\ Glaucoma is a condition that is caused by high pressure inside the eye. The pressure in the eye is raised because fluid (aqueous humor) within the eye cannot get out through the normal drainage system. The increased pressure can cause damage to the nerves of the eye, and that can result in loss of vision. It is important to diagnose glaucoma early before damage occurs. Early treatment can often prevent vision loss.\.br\ There are two main types of glaucoma:\.br\ ? \.br\ Open-angle glaucoma. This is a long-term (chronic) condition that causes the pressure inside the eye to rise slowly. This is the most common type of glaucoma. In many cases, it does not cause symptoms until later in the disease.\.br\ ? \.br\ Acute angle-closure glaucoma. With this type, the pressure inside the eye rises suddenly to a very high level. This causes severe pain and requires treatment right away.\.br\ What are the causes?\.br\ In many cases, the cause of this condition is not known. Glaucoma can sometimes result from other diseases, such as infection, cataracts, or tumors.\.br\ What increases the risk?\.br\ The following factors may make you more likely to develop this condition:\.br\ ? \.br\ Being older than age 40.\.br\ ? \.br\ Being of -Indian descent.\.br\ ? \.br\ Having high blood pressure or diabetes.\.br\ ? \.br\ Having a family history of glaucoma.\.br\ ? \.br\ Having a previous eye injury or eye surgery.\.br\ ? \.br\ Being farsighted.\.br\ ? \.br\ Using certain medicines that increase pressure in the eyes or cause the pupils to widen (dilate).\.br\ What are the signs or symptoms?\.br\ Open-angle glaucoma often causes no symptoms early on. If it is not treated, the condition will get worse and may cause a loss of side vision (peripheral vision). This can advance to tunnel vision, which means that you are able to see straight ahead but you have a loss of peripheral vision in all directions. Eventually, total loss of vision can occur.\.br\ Symptoms of acute angle-closure glaucoma develop suddenly and may include:\.br\ ? \.br\ Cloudy vision.\.br\ ? \.br\ Severe pain in your affected eye.\.br\ ? \.br\ Severe headache in the area around your eye.\.br\ ? \.br\ Feeling nauseous.\.br\ ? \.br\ Vomiting.\.br\ How is this diagnosed?\.br\ This condition is diagnosed through an eye exam by an flow specialist (coal and ash supervisor) . This specialist will:\.br\ ? \.br\ Perform a test to measure the pressure in your eye (tonometry).\.br\ ? \.br\ Do eye tests to check your vision, especially your peripheral vision.\.br\ ? \.br\ Use various instruments to look inside your eye and check for damage to the nerves.\.br\ Because glaucoma often does not cause symptoms until late in the disease, it is often found during a routine eye exam. Be sure to have your eyes checked regularly.\.br\ How is this treated?\.br\ Early treatment is important to prevent vision loss. Treatment will focus on lowering the pressure in your eyes. This usually involves using medicines in the form of eye drops. The type of medicine will depend on how bad the disease is and the degree of damage. Laser treatments or other types of surgery may be needed in some cases.\.br\ Acute angle-closure glaucoma requires emergency treatment to help prevent vision loss. This treatment may involve eye drops and medicines that are given in pill form or through an IV. Surgery is often done after the pressure has been lowered with medicine.\.br\ Follow these instructions at home:\.br\ ? \.br\ Take over- [facility] Family Medicine Office/Clini c Noteon 07-31-2022 Family Medicine Office/Clinic Note Chief Complaint 3 month f/u --- pt has no complaints Review of Systems PHQ Score Initial Depression Screen Score: 0 Initial Depression Screen Score: 0 Physical Exam Vitals & Measurements T: 36.5 ?C(Oral) HR: 84(Peripheral) RR: 18 BP: 134/70 SpO2: 98% HT: 62 in HT: 157.48 cm WT: 61 kg WT: 134.2 lb BMI: 24.6 Assessment/Plan 1. Initial Medicare annual wellness visit (Z00.00: Encounter for general adult medical examination without abnormal findings) The patient was given a customized and personalized print out of all the current AHRQ USPSTF?s recommendations for preventative services and all current CDC recommended immunizations, relevant risk recommendations and the following patient brochures were given. CDC-Falls Prevention and home safety reviewed. Patient had 1 fall in last 12 months, no ED visit or injuries. Denies concerns with falling. Self ambulation with cane for today's visit, exhibits no problems with sitting and standing. Fall Safety and Prevention reviewed, patient aware with keeping walk way area free of clutter to prevent tripping and/or falling. [place] Advance Directives reviewed. Patient has on file at Assisted Living Facility. Patient denies any problems with ADL?s and Instrumental ADL?s, will call for assist if needed. Immunizations have been reviewed, discussed Shingrix vaccine. Vaccines up to date, usually receives at Facility. Allergies and medications reviewed and up to date. Labs reviewed during visit, up to date. Patient denies any further screenings for Colonoscopy, DEXA scan and Mammograms. Will complete only if needed. OPIOID Risk tool completed, denies use or concerns Patient denies any signs or symptoms of depression at this time. Screened with PHQ-2: risk score 0. 8 minutes spent with screening, questionnaire, documentation and face to face visit with patient. Patient drinks alcohol monthly or less, usually 1 drink. 8 minutes spent with alcohol screening, questionnaire, and documentation. AUDIT completed, score 1. Follow up scheduled with PCP, 11/22/2022. AWV has been scheduled, 08/01/2023. COVID vaccine discussed, patient up to date with 2 shots and 1 Booster. 2. HTN - Hypertension (I10: Essential (primary) hypertension) Patient taking medications daily as directed, BP is monitored daily at Assisted Living <140/90 results. Patient does voice understanding with signs and symptoms to monitor for. HTN stoplight handout reviewed with importance of keeping BP <140/90 to prevent increased cardiovascular risks. DASH dietary handout reviewed with importance to lower salt intake, eat more chicken, fish and lean white meats. BP134/70 HR 84 with today's visit, will continue to follow up as directed by PCP. 3. 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 Neck measurement 13 inches with today's visit. Encouraged to remain active, reviewed Pulmonary nutritional recommendations during visit. Will continue to monitor for changes and/or concerns with office visits. O2 SAT RA 98% with today's visit, will continue to follow up as needed with PCP. 4. On statin therapy (Z79.899: Other retirement (current) drug therapy) Taking Atorvastatin daily as directed. Encouraged to eat a diet that is low in saturated fats. Stressed importance of maintaining a healthy BMI such as hers. Being overweight does produce more lipids. Patient drinks alcohol infrequently and has never smoked. Risks may also increase with a family history of hyperlipidemia. Patient aware with healthy dietary choices to reduce risk factors associated with CVA. Chol-90 HDL-35 LDL-36 Trig-97 with last labs. Will continue to follow up with labs as directed. 5. Glaucoma (H40.9: Unspecified glaucoma) Vision remains very poor, sunglasses needed with today's visit. Using eye drops as ordered, left eye continuous tearing. States nothing further can be done for her vision. Patient remains able to watch television, unable to read and self ambulates. Will follow up as she feels needed. 6. Anxiety disorder (F41.9: Anxiety disorder, unspecified) TABBY-7 completed, score 0. States no medications are taken at this time. Reviewed concerns of when to see your PCP: changes with worrying too much and it is interfering with your work, relationships and/or other parts of your life. Your fear, worry or anxiety is upsetting to you and difficult to control. If additional trouble with depression is noticeable contact your provider. 7. BMI 24.0-24.9, adult (Z68.24: Body mass index [BMI] 24.0-24.9, adult) The standard range for ages 18 and older is >18.5 and <25kg/m2. Your BMI today was 24.6, this falls into the normal range. BMI meaning contributes to your health with a greater risk for HTN, high cholesterol, body pain, stroke, heart disease, Type 2 DM and early . Your BMI and weight management will be followed with PCP visits. Encouraged with healthy nutritional choices and the importance with daily physical activity. Follow-u (more content not included)... Normal [facility] Comment on above: Result Comment: Elec tronically Signed By: Deonte ROSARIO MD\.michael\Date and Time Signed: 07/31/22 17:59 EDT\.br\Electronically Co-Signed By: Catherine Saucedo LPN\.br\Date and Time Co-Signed: 03/22/23 15:45 EDT Family Medicine Office/Clinic Note Chief Complaint 3 month f/u --- pt has no complaints History of Present Illness Here for med follow up. She has been feeling ok She has htn and CAD. She denies CP or SOB. She has COPD and denies SOB. She has CKD and avoids NSAIDs Review of Systems PHQ Score Initial Depression Screen Score: 0 Initial Depression Screen Score: 0 Physical Exam Vitals & Measurements T: 36.5 ?C(Oral) HR: 84(Peripheral) RR: 18 BP: 134/70 SpO2: 98% HT: 62 in HT: 157.48 cm WT: 61 kg WT: 134.2 lb BMI: 24.6 General: Well developed, well nourished, in no acute distress Eyes: Pupils equal, round, and reactive to light. Conjunctivae and sclerae normal, and extraocular movements intact Ears: grossly normal hearing Nose: No deformity, discharge, inflammation, or lesions Mouth: MMM. Oropharynx and posterior pharynx without lesions or exudates. Tongue WNL Neck: Neck supple. No lymphadenopathy. Trachea midline. No thyroid, masses, tenderness, or enlargement noted. No bruit. Lungs: Clear but diminished breath sounds Cardio: _RRR Abdomen: Soft, non-distended, non-tender Musculoskeletal: _ambulates with cane, kyphotic Extremity: No clubbing, cyanosis or edema. Neurologic: Grossly normal Skin: _red raised lesion R presybeterian area Mental Status: Alert and oriented x3. Normal mood and affect Assessment/Plan 1. HTN - Hypertension (I10: Essential (primary) hypertension) stay on amlodipine and carvedilol 2. Stage 3 chronic kidney disease (N18.3: Chronic kidney disease, stage 3 (moderate)) labs have been stable no change labs ordered on her form for September 3. History of CVA in adulthood (Z86.73: Personal history of transient ischemic attack (TIA), and cerebral infarction without residual deficits) no apparent residual on ASA and Brillinta 4. Hyperlipidemia (E78.2: Mixed hyperlipidemia) stay on atorvastatin as above lab for September 5. Hyperglycemia (R73.9: Hyperglycemia, unspecified) keep on diet 6. 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 Elevated alkaline phosphatase level (R74.8: Abnormal levels of other serum enzymes) last lab was improved 8. CAD (coronary artery disease) (I25.10: Atherosclerotic heart disease of [place] coronary artery without angina pectoris) on Brilinta and asa 9. Anemia (D64.9: Anemia, unspecified) last lab was stable 10. Anxiety disorder (F41.9: Anxiety disorder, unspecified) 11. Insomnia (G47.00: Insomnia, unspecified) stay on trazodone and it his helping. 12. Knee pain, right (M25.561: Pain in right knee) will put in PT referral at [facility] on form today. Also for L arm pain. 13. Skin lesion of face (L98.9: Disorder of the skin and subcutaneous tissue, unspecified) will refer to derm Ordered: [facility] External Ambulatory Referral Orders: isosorbide mononitrate, 30 mg = 1 tab(s), Oral, BID, # 60 tab(s), Refills(s) 11, Pharmacy: [id number], 157.5, cm, 07/31/22 13:30:00 EDT, Height/Length Dosing, 61, kg, 07/31/22 13:30:00 EDT, Weight Dosing Follow-up With When Contact Information PAULO HINOJOSA, ROCKY Diaz In 3 months [facility] [address], [place] [address]- Additional Instructions: Patient Education Hypertension, Adult, Sswb-zo-Eoqm Problem List/Past Medical History Ongoing Anemia Anxiety disorder Asthma BMI 24.0-24.9, adult CAD (coronary artery disease) Carotid artery stenosis COPD type B Dysphagia Edema Elevated alkaline phosphatase level Female stress incontinence History of CVA in adulthood HTN - Hypertension Hyperglycemia Hyperlipidemia Insomnia Intertrigo Knee pain, right Leg weakness Lumbar radiculopathy Neck pain Seborrheic keratoses Shoulder pain Skin lesion of face Stage 3 chronic kidney disease Vasomotor rhinitis Historical Acid reflux Appendectomy blood clots Cardiac arrest COPD Glaucoma H/O: TIA HEMATURIA TX - myocardial infarction STEMI - ST elevation myocardial infarction Stroke Procedure/Surgical History Colonoscopy (03/18/2022), Colonoscopy (03/18/2022), Radiofrequency ablation of medial branch of cervical nerve using fluoroscopic guidance (08/24/2018), cervical facet Medial Branch Block (05/25/2018), Cervical Facet Medial Branch Block (04/20/2018), lumbar facet medial branch block (11/24/2017), Radiofrequency ablation of medial branch of lumbar nerve using fluoroscopic guidance (09/29/2017), Lumbar Facet Medial Branch Block (09/08/2017), Injection of facet joint using fluoroscopic guidance (06/23/2017), Angioplasty (09/09/2014), Colonoscopy (10/10/2010), Heart Cath. (05/12/1994), Angioplasty of left leg artery, Appendectomy, Bunionectomy, Carotid angiogram, Carotid endarterectomy, Cataract extraction, D&C - Dilatation and curettage, EGD, kidney artery left stent placement, Removal of ovarian cyst, Stents, bilateral legs. Medications acetaminophen, 325 mg, Oral, q6hr, PRN amLODIPine 5 mg Tab, 5 mg= (more content not included)... Normal [facility] Comment on above: Result Comment: Elec tronically Signed By: PAULO HINOJOSA, Deonte Turpin\.br\Date and Time Signed: 07/31/22 14:33 EDT Patient Educationon 08-01-19 Patient Education Cardiovascular Hypertension, Adult Hypertension is another name for high blood pressure. High blood pressure forces your heart to work harder to pump blood. This can cause problems over time. There are two numbers in a blood pressure reading. There is a top number (systolic) over a bottom number (diastolic). It is best to have a blood pressure that is below 120/80. Healthy choices can help lower your blood pressure, or you may need medicine to help lower it. What are the causes? The cause of this condition is not known. Some conditions may be related to high blood pressure. What increases the risk? ? Smoking. ? Having type 2 diabetes mellitus, high cholesterol, or both. ? Not getting enough exercise or physical activity. ? Being overweight. ? Having too much fat, sugar, calories, or salt (sodium) in your diet. ? Drinking too much alcohol. ? Having long-term (chronic) kidney disease. ? Having a family history of high blood pressure. ? Age. Risk increases with age. ? Race. You may be at higher risk if you are . ? Gender. Men are at higher risk than women before age 45. After age 65, women are at higher risk than men. ? Having obstructive sleep apnea. ? Stress. What are the signs or symptoms? ? High blood pressure may not cause symptoms. Very high blood pressure (hypertensive crisis) may cause: ? Headache. ? Feelings of worry or nervousness (anxiety). ? Shortness of breath. ? Nosebleed. ? A feeling of being sick to your stomach (nausea). ? Throwing up (vomiting). ? Changes in how you see. ? Very bad chest pain. ? Seizures. How is this treated? ? This condition is treated by making healthy lifestyle changes, such as: ? Eating healthy foods. ? Exercising more. ? Drinking less alcohol. ? Your health care provider may prescribe medicine if lifestyle changes are not enough to get your blood pressure under control, and if: ? Your top number is above 130. ? Your bottom number is above 80. ? Your personal target blood pressure may vary. Follow these instructions at home: Eating and drinking ? If told, follow the DASH eating plan. To follow this plan: ? Fill one half of your plate at each meal with fruits and vegetables. ? Fill one fourth of your plate at each meal with whole grains. Whole grains include whole-wheat pasta, brown rice, and whole-grain bread. ? Eat or drink low-fat dairy products, such as skim milk or low-fat yogurt. ? Fill one fourth of your plate at each meal with low-fat (lean) proteins. Low-fat proteins include fish, chicken without skin, eggs, beans, and tofu. ? Avoid fatty meat, cured and processed meat, or chicken with skin. ? Avoid pre-made or processed food. ? Eat less than 1,500 mg of salt each day. ? Do not drink alcohol if: ? Your doctor tells you not to drink. ? You are , may be , or are planning to become . ? If you drink alcohol: ? Limit how much you use to: ? 0?1 drink a day for women. ? 0?2 drinks a day for men. ? Be aware of how much alcohol is in your drink. In the [place] one drink equals one 12 oz bottle of beer (355 mL), one 5 oz glass of wine (148 mL), or one 1? oz glass of hard liquor (44 mL). Lifestyle ? Work with your doctor to stay at a healthy weight or to lose weight. Ask your doctor what the best weight is for you. ? Get at least 30 minutes of exercise most days of the week. This may include walking, swimming, or biking. ? Get at least 30 minutes of exercise that strengthens your muscles (resistance exercise) at least 3 days a week. This may include lifting weights or doing Pilates. ? Do not use any products that contain nicotine or tobacco, such as cigarettes, e-cigarettes, and chewing tobacco. If you need help quitting, ask your doctor. ? Check your blood pressure at home as told by your doctor. ? Keep all follow-up visits as told by your doctor. This is important. Medicines ? Take xmhx-mmx-yvgsgou and prescription medicines only as told by your doctor. Follow directions carefully. ? Do not skip doses of blood pressure medicine. The medicine does not work as well if you skip doses. Skipping doses also puts you at risk for problems. ? Ask your doctor about side effects or reactions to medicines that you should watch for. Contact a doctor if you: ? Think you are having a reaction to the medicine you are taking. ? Have headaches that keep coming back (recurring). ? Feel dizzy. ? Have swelling in your ankles. ? Have trouble with your vision. Get help right away if you: ? Get a very bad headache. ? Start to feel mixed up (confused). ? Feel weak or numb. ? Feel faint. ? Have very bad pain in your: ? Chest. ? Belly (abdomen). ? Throw up more than once. ? Have trouble breathing. Summary ? Hypertension is another name for high blood pressure. ? High blood pressure forces your heart to work harder to (more content not included)... Normal [facility] Fdc Recordson 07-29 Fdc Records [id number] 0CD:127 Normal [facility] Coding Summary.on 07-16-2022 Coding Summary. [id number] Gh 0bWw+PGhlYWQ+EM4XHFKfF 26isUBuwA4WA8jAUY1LPDN UVYUDYA6WVZ0gqKH9SCcuS 2VybiAv SblgbUCsSK21LIt8KHK4rW uzJAdqsD6xmWImE9h2NkJq DA34zZ42NPjaEUWcWmH1Qf ZpbjsgbWFy X9uyMcBljIHdPfg+PHRhYm xlIHdpZHRoPScxMDAlJyBz dGymSG2gEe2pOUKcQNQpdW xhcHNlOiBj j4dpJBGiBFjrRQ6krCulN5 NxpOZ5LCUvd1o3Im91dPM+ PBGyCXO4hIabNIrfy195Zz Ygu5nrBOH9 lRSeUXyePTC4V65ar5K8IE JuZFXcUNH3zQO7hK2otApw hbfhR7OluRFbGaR8ZSB6fJ VziI0dmXfl vtgkxL6lZnt+F18WIR0KJC DYQX1FPjs6A5WmGfulqMX+ VQ22NHLiPP57gLIkpBQhm7 detKa7BqZx RFRhSCX1hRhtAZodh6SfXI ZyX75toIToo8Q6INUvnOlt qHRbHiJmnVI5yC6mMTmgyk xpy5mdpwiw Fghvu1bbdv10lX43D52hJJ fdHWZtYTD1NRVnUYZjsAlb vz4utU9zHt1+YHcbj7vfe3 bheSd0MyNv LDEhyeZqsUpqVKI2b7XrIy 86N3BfxUall0VeGpz9np37 uJAha4G8eZW5GYkyCMXgxV 8zPOccTmQ0 AGVbTwTueB79iPXzDHbjUa 1asYmqwAbxLR3eZOJapcnn ORFxkC6wJDNbvVOhgQkqDR 4wNTBpbjtm b232HkTlCOJ6BBDmzNTgJ3 AldA9bTnDhFMSsNLUcX5Xi xYYoIEvjN769BWceOtJ9YY QmllArX0Wl OMVicAbzUmJ1c7B1Pl3Qu0 ZvxshsPQG0PFgyZDSrZeM7 CqOsTdJ3I3YaBgu7QZTiuT lsLM3lR7Qs KNRgelghlwjkfYY8ZEVoUA AlcF16zQRvODwnTi0xg2X0 o960VZSzBCSdnG33Bm8fjV ogMTBwdCBU gH6bxbwkm9iuapwmCnAjUC XhNSk1PLa4FMIcvSozTwRg LZJ9BwX7RZB2wXTkvV2ppG cdklzwbY8x Oyc+O51osF1mMEJ1LPW3sg tmXLImntMhYJ77IK53E6Cd PjwvdGFibGU+PGRpdiBzdH irJQ0fPdCj f3mjh6SoIMgaQ8ZrCQDvJF ytYtg4VBDnITX6tGH4zY6l NOQuRGqyu7V0hSI8I6Lsph Ozms2ki8hl CYPuGFdwO59niBTce6C9CK GggAG3MHRiuQcmDzBxzP44 Oyc+CKIgaMirz0VzBnkln9 gvx1jduQc7 KtMqWUByslKxaDmwJFW0j1 FlZp80P67uDMtvFOLmTSMi KIMdXEObbSwhoj7qqA0bLv 8+PGNvbCB3 jQN2rG2sYPLaNmC9RGpqS1 11FkAxoHTbFbckm0owm8od pIj5PuIoPINesiAphWigRX J8f5LyLl62 Y17dZWwlXRAyDDYlPUZlWT DsbSqtlm8ytJ7oBi6+PC9j l2empi51mJ06kGZ+PHRkIH F7iHkgEIfb XRPqvT4qNVnxQlB0YRVeSs VqwS82qTHkMYczNh6hgPrz zBkdEY6xAABrdbvsm586Rb Och8vfAHZu sBBjMKmgPYK7R46qg5L7AT DbHSPoOFP2tZF0nV0thRqb bjogbGVmdDsgdmVydGljYW jySTbsI071 IHRvcDsnPlBhdGllbnQgTm HbZJb9S7IyQto1ZYGphEoj BH6ytAFqRHoaOb3gpCjzaL eyGJ6kQLAc oauid971KlSup1jfQZZlqW QoKOmhGEX8C26ei5E6ZJRj UBPjGEN1sLA2hS7rlEfcaq ogbGVmdDsg nbKowPdbAUtwDCxtH420OX RvcDsnPkJpcnRoIERhdGU6 FB65EG40sCMxc8L6hPI4I7 BhZGRpbmct xkcgoSY9QWGgZUIrlX19Tl 0mdXmbMv5hETMhPPA3NWMx wNFiR5VaqY6sJkLzGCJkQG AiX0KjuCIv BCcsI622WTxpNuJ0HMQeop RqK1ApJNOgpTfdFsL7m2G7 Bt8LW6T1EB69VB95fPHqt5 W2fYI3M2Zh CXBkkkkofpojtQB0FWIeQA FokH76Cv4qnLdhKu3bKKYs IAV0DEFnoMXpS7CnhM1hKf AjMDAwMDAw V4OcbCVjSNvsV288FQjyDy I7PRJbktTsY6OhNQRnwRhw ZvV6z2H2Bi0CHXw6QI01FI 18bETse5F6 eNW0V2WpTDRutapyrsmmiH T4JOMrDBOfcE49Rm8myKqd Ub1pUFRvZVU4QDIzxDZpY8 HpmE9mIpId NOClBLVxS6KzoAPiVSbrR6 07KEfcGxF4BYNhimWvA6Hl BNPwwCeiDpL5m8S9Ua2FLU YnEC18ZZP1 jPF7HL53HV91A3ZfTpqtcZ FibGU+PHRhYmxlIHdpZHRo XAzzFSZlGeMlgIspFD0oMb 9yZGVyLWNv rDycmIOpDpSda1frFIAzHU akEI2elGsdB8PzcXW6UWBp z1i9Fl71T44pM1ZdzYE+PG OfxDS3dHQ8 aN9ySnHaWtO5KUiiV985Ne FfhBCaYhehj0djo3fceNx7 FdC1LXPtztRdoMhkAPL8n6 EwFy02T16r IHdpZHRoPSIxNSUiIHZhbG snpn0pwP3lMi4+PGNvbCB3 sDM1wA0cPcYvBaZ1BRneI2 49InRvcCIv Kyihn4oev1vnwAj6QwOgNS UfmbXenOguFZG1e5FwVb50 E0TuzNoih2UaKbz2rm81sT Pls7R0vFL2 G3JvUOEuwglpeSRkgBhsHM 5aZGCmyoawALFnzI5wOIZw M4o8ShQlObJ6TXgpQ4Tswc R3BMXicDUw HYnhADA7H32mh4Z3BSApWO NzZNF9oBF9sN3iqMjecmqd bGVmdDsgdmVydGljYWwtYW auG678HYDp vFmzOEKheG6mNRUrzGAedR adCB7pKQBaaahwNfNPLYFK JJsyJu0LUW9BIdicQQueoK Q+PHRkIHN0 sBlxACyoUFGdcJ7kXRLkB0 l7FxVdVvK8HOalQ8AqOZGm vqvhEq55cD5bZuMlAvN9SO sbA2VixfL6 UCNmxTKhUJakAXP1O80nm3 B2PAEvXOItSTE1gGT4nK1z bGlnbjogbGVmdDsgdmVydG ljYWwtYWxp X002NORbsTrcLmQ1HcW5So B3Dym8P8SoSsq5CFGopTjt QI8fmJIrFTfyUs0ieXtirJ nxNY8rTVYu rwnrOUWwaU7vDJGohLAwxD diCN4tOOAnqbmyv436IlFb KVB0ONVugPCaP2EqyF1bVs AjMDAwMDAw T1IbkUBkNKrnV011MSbhQo R9ZRHmmsGlR1SvBLGkqKby MyZ8g4V0Qp83KCDUZEHqrf wvdGQ+PHRk SII3pNdmEAdmHYUxzJ5nIK ItV3n5GfHhAdM3RNsyJ4Kh ISMsobjeYj15uL4bPlDsMz P4SLvvA7Oq dcN3IIXciPRkWIfhYPX6D3 1ck1S5WJAhUYAuZVG8qYQ3 sZ9wqVhbzbjzcBHejIorko VydGljYWwt VHruX744PTLogHmoXaTxlD FsZTwvdGQ+NWPpBYF1aDkz LDliVBHnxH3mTINhK2b8Sz FgFiE2XCth F2HoXQGdbebnQw91uE6kOt VzIoL2WSeqG7MdhfB4SLMx dEYnRWsqAKR1U29lr6N8NI MwMDAwMDA7 pAN0eW0kdSrimdefgEEubW cgtyZlgUzzRCavYKwcZ540 EZGawTqcBz66cPTthAjxok I3E4YhVbhh dHI+XM92SZAfGP50wZDztX Xro8qsvSl8FoPxGVXcJEX9 cXixUCkyj5PdQNOjY73dfL Vbt8K0TIZu gNetxJXzKcCocWT6fC9eTG mqthvmn3cwgvvsEqkxk0yn st35cH12G28uYEuuDNLmWC IzMCUiIHZh cZafbe3qzC6tBg9+PGNvbC D3aQI5sM8uItKpXdE9QCek S251VwSyxOAzSznpo7agp5 cqjKz9PpMd YPKvmbZhhUgwSGB6l6LrPr 72B36pIHcgIYFsSSMnDIGe AZCefZiqml9mxM8jNb6+PC 3ag1wcog15 dL62pYY+CTIyASV9fFlfJZ szKOYlyH8hVNnmEuT7HRPh GcAxjF15oQRmOUfzDh6jgT cynLsqUX8q RILhjtrql378CmUcf3stDV SrmCWhKDtoUBK8J31ns9Q4 RARyIUNvYNW3dXY3vM9kmY lnbjogbGVm dDsgdmVydGljYWwtYWxpZ2 23ABOvrJdaFzNesJEjP5ww ghACKI5qPirogIJ+PHRkIH Z4wLqvQLmz VEYawD5bJPQeN8f4IkZfLk I2ABxqF9XnnfW6EQZjeSGp RXHemPRWoZ6nyircm9sebk ogIzAwMDAw UPj4KQi0XYPczZrdYlXmPB Q6HxW0DDK7sBVvxW3gmZqx vidfmW1xZcc+RklOOjwvdG Q+PHRkIHN0 wLxvKZuyUYRosH6dLJQeZ1 e6TiFqQgW2MLfdC7OgjyS1 AGViaTFnYRTcyAWMqF7ofk vuu4rleimj ByYoTJWwLWo4JIl3XQBzxO zxEiAsOSQ7RqB0CVM6zWMp qE8lwCbqtykeuU9lTra+TV JOOjwvdGQ+ BRRdBBF6vImeSGbiEXXxoI 6qOKElF0a6VrEeZjK5FDdp H6OvygH7DGDmkHUhBMSgpD IDjW8obzdr l9nzgizrXzYlHHMgKVv7ZD g0MXWjfLbuOnQmFNJ4FkM3 OGM8fRKxrL6dzKhxrgwtcV 9wOyc+UGF5 TTP6FS21RK73O0VxDbxptZ FibGU+PHRhYmxlIHdpZHRo PVigJGBuJzDahErbWY5qWi 9yZGVyLWNv bGxh (more content not included)... [facility] FRESH FROZ PLASMAon 07-17-19 23 ABO and Rh group Nom (Bld) Unit Blood Type O Pos Unit Number [id number] Status Information Transfused Product ID FFP Product Code [id number] Unit Blood Type O Pos Unit Number [id number] Status Information Transfused Product ID FFP Product Code [id number] Normal [facility] Comment on above: Performed By: #### F FP #### [facility] [address] [address] [address] Carla Little Physician Orderon 07-11-2022 Physician Order [id number]. 00CD:127 Normal [facility] Consent for Treatmenton 06-13 Consent for Treatment [id number] 0CD:127 Normal [facility] Heart and Vascular Office/Cl inic Noteon 07-08-2022 Heart and Vascular Office/Clinic Note Chief Complaint med management History of Present Illness Piedad Alatorre is an 86-year-old female patient of Dr. Contreras with past medical history positive for CAD post PCI of RCA in setting of an acute inferior wall STEMI and V-fib arrest in November 2020. She has known lesion to LAD that is currently treated medically she. She had ICMP but LV function normalized post PCI. At her last visit with Dr. Contreras, she had reported chest discomfort and was ordered stress MPI. She is on Imdur. Unfortunately, since her last visit she did have episode of angioedema requiring hospitalization at [facility] in [place]. Her lisinopril was discontinued. She is here today to follow-up. She has been doing fairly well since her discharge from [facility]. She is at [facility]. She has been having issues with hypertension, nursing staff recently called to resume her amlodipine. Blood pressures improved with resuming amlodipine. She denies any current cardiac complaints. Patient specifically denies chest pain, palpitations, SOB at rest, RUELAS, edema, orthopnea, PND, dizziness, near syncope, or syncope. He is willing to get her stress MPI at this time. Review of Systems PHQ Score Initial Depression Screen Score: 0 Constitutional: no fever, no chills, no weakness, no fatigue Respiratory: no shortness of breath, no cough, no orthopnea, no wheezing Cardiovascular: no chest pain, no palpitations, no edema Neuro:no dizziness no light headed no syncope Additional ROS info: Except as noted in the above Review of Systems and in the History of Present Illness all other systems have been reviewed and are negative or noncontributory. Physical Exam Vitals & Measurements HR: 80(Peripheral) RR: 16 BP: 128/62 HT: 64 in HT: 162 cm WT: 62.8 kg WT: 138.16 lb BMI: 23.93 General: alert, no acute distress Neck: Supple, noJVD nocarotid bruit Cardiovascular: regular rate and rhythm, no murmur normal peripheral perfusion Respiratory: Lungs CTA, respirations non labored Extremities:no edema Neurological: oriented x 4, LOC appropriate for age, sensation equal & normal bilaterally, speech normal Skin: Warm, dry, intact- no rash or concerning lesions Assessment/Plan 1. CAD (coronary artery disease) (I25.10: Atherosclerotic heart disease of [place] coronary artery without angina pectoris) CAD post PCI to RCA in setting of STEMI. No lesion to LAD. History of ischemic cardiomyopathy with normalized LV function post PCI. Recent complaints of chest pain, MD ordered stress MPI. She is now agreeable to get this completed, an order is reentered. Staff to arrange. In interim, she will continue guideline directed medical therapy to include DAPT with aspirin and Brilinta, high intensity atorvastatin, beta-nelly. Continue isosorbide mononitrate present dosing. No MORIS/ARB due to recent issues with angioedema. 2. HTN - Hypertension (I10: Essential (primary) hypertension) Blood pressure is well controlled for this patient's age on current medications. Orders: NM Myocardial Spect Rest/Stress 1 Day Follow-up with MD to review results of stress testing. Updated medication list and allergies to reflect discontinuation of MORIS due to angioedema Follow-up With When Contact Information Juanhco Contreras MD Within 4 weeks [address] [place] [address]- [phone] Additional Instructions: Problem List/Past Medical History Ongoing Alkaline phosphatase elevation Anemia Anemia due to GI blood loss Anxiety disorder Asthma Back pain, thoracic CAD (coronary artery disease) Carotid artery stenosis COPD type B Dysphagia Edema Elevated alkaline phosphatase level Female stress incontinence History of CVA in adulthood HTN - Hypertension Hyperglycemia Hyperlipidemia Insomnia Intertrigo Leg weakness Lumbar radiculopathy Neck pain Seborrheic keratoses Shoulder pain Stage 3 chronic kidney disease Vasomotor rhinitis Historical Acid reflux Appendectomy blood clots Cardiac arrest COPD Glaucoma H/O: TIA HEMATURIA TX - myocardial infarction STEMI - ST elevation myocardial infarction Stroke Procedure/Surgical History Colonoscopy (03/18/2022), Colonoscopy (03/18/2022), Radiofrequency ablation of medial branch of cervical nerve using fluoroscopic guidance (08/24/2018), cervical facet Medial Branch Block (05/25/2018), Cervical Facet Medial Branch Block (04/20/2018), lumbar facet medial branch block (11/24/2017), Radiofrequency ablation of medial branch of lumbar nerve using fluoroscopic guidance (09/29/2017), Lumbar Facet Medial Branch Block (09/08/2017), Injection of facet joint using fluoroscopic guidance (06/23/2017), Angioplasty (09/09/2014), Colonoscopy (10/10/2010), Heart Cath. (05/12/1994), Angioplasty of left leg artery, Appendectomy, Bunionectomy, Carotid angiogram, Carotid endarterectomy, Cataract extraction, D&C - Dilatation and curettage, EGD, kidney artery left stent placement, Removal of ovarian cyst, Stents, bilate (more content not included)... Normal [facility] Comment on above: Result Comment: Elec tronically Signed By: Mamie SCOTT CNP\.br\Date and Time Signed: 07/08/22 16:03 [facility] 07-04-[address] [facility] Case Information Case Priority: None Programs: -- Referral Source: Global Rec[employer]iter Referral Reason: Care coordination Case Type: Transition Care Management Risk Score: -- Case Status: Enrolled (June 21, 2022) Date Assigned: June 21, 2022 Assigned By: Megan Gusman RN Date Enrolled: June 21, 2022 Assigned Primary Personnel: Megan Gusman RN Assigned Secondary Personnel: Angelica Davies RN Case Physician: -- Problems Ongoing Alkaline phosphatase elevation Anemia Anemia due to GI blood loss Anxiety disorder Asthma Back pain, thoracic CAD (coronary artery disease) Carotid artery stenosis COPD type B Dysphagia Edema Elevated alkaline phosphatase level Female stress incontinence History of CVA in adulthood HTN - Hypertension Hyperglycemia Hyperlipidemia Insomnia Intertrigo Leg weakness Lumbar radiculopathy Neck pain Seborrheic keratoses Shoulder pain Stage 3 chronic kidney disease Vasomotor rhinitis Historical Acid reflux Appendectomy blood clots Cardiac arrest COPD Glaucoma H/O: TIA HEMATURIA TX - myocardial infarction STEMI - ST elevation myocardial infarction Stroke Procedure/Surgical History Colonoscopy (03/18/2022), Colonoscopy (03/18/2022), Radiofrequency ablation of medial branch of cervical nerve using fluoroscopic guidance (08/24/2018), cervical facet Medial Branch Block (05/25/2018), Cervical Facet Medial Branch Block (04/20/2018), lumbar facet medial branch block (11/24/2017), Radiofrequency ablation of medial branch of lumbar nerve using fluoroscopic guidance (09/29/2017), Lumbar Facet Medial Branch Block (09/08/2017), Injection of facet joint using fluoroscopic guidance (06/23/2017), Angioplasty (09/09/2014), Colonoscopy (10/10/2010), Heart Cath. (05/12/1994), Angioplasty of left leg artery, Appendectomy, Bunionectomy, Carotid angiogram, Carotid endarterectomy, Cataract extraction, D&C - Dilatation and curettage, EGD, kidney artery left stent placement, Removal of ovarian cyst, Stents, bilateral legs. Home Medications acetaminophen, 325 mg, Oral, q6hr, PRN amLODIPine 5 mg Tab, 5 mg= 1 tab(s), Oral, Daily, 11 refills aspirin 81 mg oral tablet, 81 mg= 1 tab(s), Oral, Daily atorvastatin 80 mg Tab, 80 mg= 1 tab(s), Oral, Bedtime Atrovent 0.03% [place], 2 spray(s), Nasal, TID, PRN, 1 refills cloNIDine 0.1 mg tab, 0.1 mg, Oral, BID, 3 refills docusate sodium 100 mg Cap, 100 mg= 1 cap(s), Oral, BID, PRN ferrous sulfate 325 mg oral enteric coated tablet, 325 mg= 1 tab(s), Oral, Daily, 5 refills isosorbide mononitrate 30 mg ER Tab, 30 mg= 1 tab(s), Oral, BID, 5 refills lisinopril 20 mg Tab, 20 mg= 1 tab(s), Oral, BID Lopressor 50 mg oral tablet, 50 mg= 1 tab(s), Oral, BID, 3 refills LORazepam 0.5 mg Tab, See Instructions MiraLax, 17 gm, Oral, Daily nitroglycerin 0.4 mg sublingual Tab, 0.4 mg= 1 tab(s), SubLingual, q5min, PRN ondansetron 4 mg Tab, 4 mg= 1 tab(s), Oral, q8hr pantoprazole 40 mg Oral EC Tab, 40 mg, Oral, Daily, 3 refills Refresh Optive, 1 drop(s), Eye-Both, TID spironolactone 25 mg Tab, 25 mg= 1 tab(s), Oral, Daily, 5 refills ticagrelor 90 mg oral tablet, 90 mg= 1 tab(s), Oral, BID traZODONE 50 mg Tab, 50 mg= 1 tab(s), Oral, Once a day (at bedtime), 5 refills Allergies Latex (Rash) Skelaxin (SOB - Shortness of breath) penicillin (Rash, SOB - Shortness of breath) shellfish Social History Alcohol - Low Risk, 12/04/2009 Current, Wine, 1-2 times per year, Alcohol use interferes with work or home: No., 01/19/2011 Employment/School Retired, 01/19/2011 Home/Environment Lives with Alone. Living situation: Home with assistance. Home equipment: Respiratory treatments, Walker/Cane. Alcohol abuse in household: No. Substance abuse in household: No. Smoker in household: No. Injuries/Abuse/Neglect in household: No. Feels unsafe at home: No. Family/Friends available for support: Yes. Financial concerns: No., 01/19/2011 Substance Abuse - Denies Substance Abuse, 01/19/2011 Tobacco - Denies Tobacco Use, 12/04/2009 Never (less than 100 in lifetime) Tobacco Use:. 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 Normal [facility] Fdc Recordson 06-28 Fdc Records [id number] 0CD:127 [facility] Prescriptions/Work Noteson 0 06-27-2022 Prescriptions/Work Notes [id number]#1.0 0CD:127 [facility] Outside Hospital Correspo ndenceon 06-21-2022 Outside Hospital Correspondence [id number] 0CD:127 [facility] Outside Recordson 06-21-2022 Outside Records [id number]#[id number] 0CD:127 [facility] Basic Metab w/rfx MGon 06-20 Anion gap [Moles/Vol] 10 mmol/L Normal -17 [facility] Comment on above: Performed By: #### M RSANO #### [facility] [employer] [address] [place] [address] [phone] Director Of Capital Giving: Sidney Epps MD Chloride [Moles/Vol] 105 mmol/L Normal 98-107 [facility] Comment on above: Performed By: #### M RSANO #### [facility] [address] [place], [place] [phone] Director Of Capital Giving: Sidney Epps MD CO2 [Moles/Vol] 23 mmol/L Normal 20-31 [facility] Comment on above: Performed By: #### M RSANO #### [facility] [employer] [address] [place] [address] [phone] Director Of Capital Giving: Sidney Epps MD Creatinine [Mass/Vol] 1.38 mg/dL High 0.50-0.90 [facility] Comment on above: Performed By: #### M RSANO #### [address] [address] Director Of Capital Giving: Sidney Epps MD GFR/1.73 sq M.predicted among non-blacks MDRD (S/P/Bld) [Vol rate/Area] 38 mL/min/{1.73_m2} Low >60 [facility] Comment on above: Result Comment: These results are not intended for use in patients <18 years of age. eGFR results are calculated without a race factor using the 2020 CKD-EPI equation. Careful clinical correlation is recommended, particularly when comparing to results calculated using previous equations. The CKD-EPI equation is less accurate in patients with extremes of muscle mass, extra-renal metabolism of creatine, excessive creatine ingestion, or following therapy that affects renal tubular secretion. Performed By: #### M RSANO #### [facility] [employer] [address] [place] [address] Director Of Capital Giving: Sidney Epps MD Glucose [Mass/Vol] 96 mg/dL Normal 70-99 [facility] Comment on above: Performed By: #### M RSANO #### [facility] [employer] [address] [place] [address] Director Of Capital Giving: Sideny Epps MD Potassium [Moles/Vol] 4.6 mmol/L Normal 3.7-5.3 [facility] Comment on above: Performed By: #### M RSANO #### [facility] [employer] [address] [place] [address] Director Of Capital Giving: Sidney Epps MD Sodium [Moles/Vol] 138 mmol/L Normal 135-144 [facility] Comment on above: Performed By: #### M RSANO #### [facility] [employer] [address] [place] [address] Director Of Capital Giving: Sidney Epps MD Urea nitrogen [Mass/Vol] 33 mg/dL High 8-23 [facility] Comment on above: Performed By: #### M RSANO #### [email or web address] [address] [place], [place] [phone] Director Of Capital Giving: Sidney Epps MD Calcium [Mass/Vol] 8.8 mg/dL Normal 8.6-10.4 [facility] Comment on above: Performed By: #### M RSANO #### [facility] [address] [place], [place] [phone] Director Of Capital Giving: Sidney Epps MD Basic Metabolic Panel w/ Ref rashid to MGon 06-20-2022 Anion gap [Moles/Vol] 10 mmol/L 9 - 17 mmol/L [facility] [employer] Chloride [Moles/Vol] 105 mmol/L 98 - 107 mmol/L [facility] CO2 [Moles/Vol] 23 mmol/L 20 - 31 mmol/L [facility] Creatinine [Mass/Vol] 1.38 mg/dL High 0.50 - 0.90 mg/dL [facility] [employer] GFR/1.73 sq M.predicted MDRD (S/P/Bld) [Vol rate/Area] 38 mL/min/{1.73_m2} Low - PINF [facility] [employer] Comment on above: These results are not intended for use in patients <18 years of age. eGFR results are calculated without a race factor using the 2020 CKD-EPI equation. Careful clinical correlation is recommended, particularly when comparing to results calculated using previous equations. The CKD-EPI equation is less accurate in patients with extremes of muscle mass, extra-renal metabolism of creatine, excessive creatine ingestion, or following therapy that affects renal tubular secretion. Glucose [Mass/Vol] 96 mg/dL 70 - 99 mg/dL [facility] [employer] Interpretation and review of laboratory results Abnormal [facility] [employer] Potassium [Moles/Vol] 4.6 mmol/L 3.7 - 5.3 mmol/L [facility] [employer] Sodium [Moles/Vol] 138 mmol/L 135 - 144 mmol/L [facility] [employer] Urea nitrogen [Mass/Vol] 33 mg/dL High 8 - 23 mg/dL [facility] CBC with Auto Differentialon 06-20-2022 Absolute Eos # [facility] Absolute Immature Granulocyte 0.24 [facility] Absolute Lymph # 0.71 Low [facility] Absolute Cal[place]oun # 1.15 [facility] Basophils Absolute [facility] Basophils/100 WBC (Bld) 0 % 0 - 2 % [facility] Eosinophils/100 WBC (Bld) 0 % Low 1 - 4 % [facility] Hematocrit (Bld) [Volume fraction] 32.7 % Low 36.3 - 47.1 % [facility] Hemoglobin (Bld) [Mass/Vol] 10.8 g/dL Low 11.9 - 15.1 g/dL [facility] Immature granulocytes/100 WBC (Bld) 2 % High 0 [facility] Interpretation and review of laboratory results Abnormal [facility] Lymphocytes/100 WBC (Bld) 5 % Low 24 - 43 % [facility] MCH (RBC) [Entitic mass] 30.0 pg 25.2 - 33.5 pg [facility] MCHC (RBC) [Mass/Vol] 33.0 g/dL 28.4 - 34.8 g/dL [facility] MCV (RBC) [Entitic vol] 90.8 fL 82.6 - 102.9 fL [facility] Monocytes/100 WBC (Bld) 7 % 3 - 12 % [facility] NRBC Automated 0.0 0.0 per 100 WBC [facility] Platelet distribution width (Bld) [Ratio] 14.4 % 11.8 - 14.4 % [facility] Platelet mean volume (Bld) [Entitic vol] 10.3 fL 8.1 - 13.5 fL [facility] Platelets (Bld) [#/Vol] 218 10*3/uL [facility] RBC (Bld) [#/Vol] 3.60 10*6/uL Low 3.95 - 5.11 m/uL [facility] Segmented neutrophils/100 WBC (Bld) 87 % High 36 - 65 % [facility] Segs Absolute 13.71 High [facility] WBC (Bld) [#/Vol] 15.8 10*3/uL High [facility] CBC with Diffon 06-20-2022 Abs. Basophil <0.03 Normal 0.00-0.20 [facility] Comment on above: Performed By: #### M RSANO #### [facility] [employer] [address] [place] [address] Director Of Capital Giving: Sidney Epps MD Abs. Eosinophil <0.03 Normal 0.00-0.44 [facility] Comment on above: Performed By: #### M RSANO #### [facility] [employer] [address] [place] [address] Director Of Capital Giving: Sidney Epps MD Abs.Imm.Granulocyt e 0.24 k/uL Normal 0.00-0.30 [facility] Comment on above: Performed By: #### M RSANO #### [address] [address] Director Of Capital Giving: Sidney Epps MD Abs.Neutrophil (Seg) 13.71 k/uL High 1.50-8.10 [facility] Comment on above: Performed By: #### M RSANO #### [facility] [employer] [address] [place] [address] Director Of Capital Giving: Sidney Epps MD Basophils/100 WBC (Bld) 0 % Normal 0-2 [facility] Comment on above: Performed By: #### M RSANO #### [facility] [employer] [address] [place] [address] Director Of Capital Giving: Sidney Epps MD Eosinophils/100 WBC (Bld) 0 % Low 1-4 [facility] Comment on above: Performed By: #### M RSANO #### [facility] [employer] [address] [place] [address] Director Of Capital Giving: Sidney Epps MD Erythrocyte distribution width (RBC) [Ratio] 14.4 % Normal 11.8-14.4 [facility] Comment on above: Performed By: #### M RSANO #### [address] [address] Director Of Capital Giving: Sidney Epps MD Hematocrit (Bld) [Volume fraction] 32.7 % Low 36.3-47.1 [facility] Comment on above: Performed By: #### M RSANO #### [address] [address] Director Of Capital Giving: Sidney Epps MD Hemoglobin (Bld) [Mass/Vol] 10.8 g/dL Low 11.9-15.1 [facility] Comment on above: Performed By: #### M RSANO #### [address] [address] Director Of Capital Giving: Sidney Epps MD Immature granulocytes/100 WBC (Bld) 2 % High 0 [facility] Comment on above: Performed By: #### M RSANO #### [address] [address] Director Of Capital Giving: Sidney Epps MD Lymphocytes (Bld) [#/Vol] 0.71 10*3/uL Low 1.10-3.70 [facility] Comment on above: Performed By: #### M RSANO #### [address] [address] Director Of Capital Giving: Sidney Epps MD Lymphocytes/100 WBC (Bld) 5 % Low 24-43 [facility] Comment on above: Performed By: #### M RSANO #### [address] [address] Director Of Capital Giving: Sidney Epps MD MCH (RBC) [Entitic mass] 30.0 pg Normal 25.2-33.5 [facility] Comment on above: Performed By: #### M RSANO #### [address] [address] Director Of Capital Giving: Sidney Epps MD MCHC (RBC) [Mass/Vol] 33.0 g/dL Normal 28.4-34.8 [facility] Comment on above: Performed By: #### M RSANO #### [address] [address] Director Of Capital Giving: Sidney Epps MD MCV (RBC) [Entitic vol] 90.8 fL Normal 82.6-102.9 [facility] Comment on above: Performed By: #### M RSANO #### [address] [address] Director Of Capital Giving: Sidney Epps MD Monocytes (Bld) [#/Vol] 1.15 10*3/uL Normal 0.10-1.20 [facility] Comment on above: Performed By: #### M RSANO #### [address] [address] Director Of Capital Giving: Sidney Epps MD Monocytes/100 WBC (Bld) 7 % Normal 3-12 [facility] Comment on above: Performed By: #### M RSANO #### [address] [address] Director Of Capital Giving: Sidney Epps MD Neutrophil (Seg) 87 % High 36-65 [facility] Comment on above: Performed By: #### M RSANO #### [address] [address] Director Of Capital Giving: Sidney Epps MD NRBC Automated 0.0 per 100 WBC Normal 0.0 [facility] Comment on above: Performed By: #### M RSANO #### [address] [address] Director Of Capital Giving: Sidney Epps MD Platelet mean volume (Bld) [Entitic vol] 10.3 fL Normal 8.1-13.5 [facility] Comment on above: Performed By: #### M RSANO #### [address] [place] [address] Director Of Capital Giving: Sidney Epps MD Platelets (Bld) [#/Vol] 218 10*3/uL Normal 138-453 [facility] Comment on above: Performed By: #### M RSANO #### [address] [address] Director Of Capital Giving: Sidney Epps MD RBC (Bld) [#/Vol] 3.60 10*6/uL Low 3.95-5.11 [facility] Comment on above: Performed By: #### M RSANO #### [address] [address] Director Of Capital Giving: Sidney Epps MD WBC (Bld) [#/Vol] 15.8 10*3/uL High 3.5-11.3 [facility] Comment on above: Performed By: #### M RSANO #### [address] [address] Director Of Capital Giving: Sidney Epps MD RAD - CT Reporton 06-20-2022 RAD - CT Report [id number] 0CD:127 Normal [facility] RAD - MISCon 06-20-2022 RAD - MISC [id number] 0CD:127 Normal [facility] Basic Metab w/rfx MGon 06-19 Anion gap [Moles/Vol] 14 mmol/L Normal 9-17 [facility] Comment on above: Performed By: #### C DP, BMPX ####[facility] [address] [place] [address] Lab Director: Sidney Epps MD Calcium [Mass/Vol] 9.4 mg/dL Normal 8.6-10.4 [facility] Comment on above: Performed By: #### C DP, BMPX ####[facility] [address] [place], [place] [phone] Director: Sidney Epps MD Chloride [Moles/Vol] 104 mmol/L Normal 98-107 [facility] Comment on above: Performed By: #### C DP, BMPX ####[facility] [address] [place], [place] [phone] Director: Sidney Epps MD CO2 [Moles/Vol] 18 mmol/L Low 20-31 [facility] Comment on above: Performed By: #### C DP, BMPX ####[address] [phone] Director: Sidney Epps MD Creatinine [Mass/Vol] 1.41 mg/dL High 0.50-0.90 [facility] Comment on above: Performed By: #### C DP, BMPX ####[address] [address] Lab Director: Sidney Epps MD GFR/1.73 sq M.predicted among non-blacks MDRD (S/P/Bld) [Vol rate/Area] 37 mL/min/{1.73_m2} Low >60 [facility] Comment on above: Result Comment: These results are not intended for use in patients <18 years of age. eGFR results are calculated without a race factor using the 2020 CKD-EPI equation. Careful clinical correlation is recommended, particularly when comparing to results calculated using previous equations. The CKD-EPI equation is less accurate in patients with extremes of muscle mass, extra-renal metabolism of creatine, excessive creatine ingestion, or following therapy that affects renal tubular secretion. Performed By: #### C DP, BMPX ####[facility] [address] [place] [address] Lab Director: Sidney Epps MD Glucose [Mass/Vol] 122 mg/dL High 70-99 [facility] Comment on above: Performed By: #### C DP, BMPX ####[facility] [address] [place] [address] Lab Director: Sidney Epps MD Potassium [Moles/Vol] 4.6 mmol/L Normal 3.7-5.3 [facility] Comment on above: Performed By: #### C DP, BMPX ####[facility] [address] [place] [address] Lab Director: Sidney Epps MD Sodium [Moles/Vol] 136 mmol/L Normal 135-144 [facility] Comment on above: Performed By: #### C DP, BMPX ####[facility] [address] [place] [address] Lab Director: Sidney Epps MD Urea nitrogen [Mass/Vol] 32 mg/dL High 8-23 [facility] Comment on above: Performed By: #### C DP, BMPX ####[facility] [address] [place] [address] Lab Director: Sidney Epps MD Basic Metabolic Panel w/ Ref rashid to MGon 06-19-2022 Anion gap [Moles/Vol] 14 mmol/L 9 - 17 mmol/L [facility] Calcium [Mass/Vol] 9.4 mg/dL 8.6 - 10.4 mg/dL [facility] Chloride [Moles/Vol] 104 mmol/L 98 - 107 mmol/L [facility] CO2 [Moles/Vol] 18 mmol/L Low 20 - 31 mmol/L [facility] Creatinine [Mass/Vol] 1.41 mg/dL High 0.50 - 0.90 mg/dL [facility] GFR/1.73 sq M.predicted MDRD (S/P/Bld) [Vol rate/Area] 37 mL/min/{1.73_m2} Low - PINF [facility] Comment on above: These results are not intended for use in patients <18 years of age. eGFR results are calculated without a race factor using the 2020 CKD-EPI equation. Careful clinical correlation is recommended, particularly when comparing to results calculated using previous equations. The CKD-EPI equation is less accurate in patients with extremes of muscle mass, extra-renal metabolism of creatine, excessive creatine ingestion, or following therapy that affects renal tubular secretion. Glucose [Mass/Vol] 122 mg/dL High 70 - 99 mg/dL [facility] Interpretation and review of laboratory results Abnormal [facility] Potassium [Moles/Vol] 4.6 mmol/L 3.7 - 5.3 mmol/L [facility] Sodium [Moles/Vol] 136 mmol/L 135 - 144 mmol/L [facility] Urea nitrogen [Mass/Vol] 32 mg/dL High 8 - 23 mg/dL [facility] CBC with Auto Differentialon 06-19-2022 Absolute Eos # 0.00 [facility] Absolute Immature Granulocyte 0.43 High [facility] Absolute Lymph # 0.65 Low [facility] Absolute Calhoun # 0.86 [facility] Basophils (Bld) [#/Vol] 0.00 10*3/uL [facility] Basophils/100 WBC (Bld) 0 % 0 - 2 % [facility] Eosinophils/100 WBC (Bld) 0 % Low 1 - 4 % [facility] Hematocrit (Bld) [Volume fraction] 31.7 % Low 36.3 - 47.1 % [facility] Hemoglobin (Bld) [Mass/Vol] 9.5 g/dL Low 11.9 - 15.1 g/dL [facility] Immature granulocytes/100 WBC (Bld) 2 % High 0 [facility] Interpretation and review of laboratory results Abnormal [facility] Lymphocytes/100 WBC (Bld) 3 % Low 24 - 43 % [facility] MCH (RBC) [Entitic mass] 29.9 pg 25.2 - 33.5 pg [facility] MCHC (RBC) [Mass/Vol] 30.0 g/dL 28.4 - 34.8 g/dL [facility] MCV (RBC) [Entitic vol] 99.7 fL 82.6 - 102.9 fL [facility] Monocytes/100 WBC (Bld) 4 % 3 - 12 % [facility] Morphology Min (Bld) [Interp] ANISOCYTOSIS PRESENT [facility] NRBC Automated 0.0 0.0 per 100 [facility] Platelet distribution width (Bld) [Ratio] 14.6 % High 11.8 - 14.4 % [facility] Platelet mean volume (Bld) [Entitic vol] 10.6 fL 8.1 - 13.5 fL [facility] Platelets (Bld) [#/Vol] 232 10*3/uL [facility] RBC (Bld) [#/Vol] 3.18 10*6/uL Low 3.95 - 5.11 m/uL [facility] Segmented neutrophils/100 WBC (Bld) 91 % High 36 - 65 % [facility] Segs Absolute 19.56 High [facility] WBC (Bld) [#/Vol] 21.5 10*3/uL High [facility] CBC with Diffon 06-19-2022 Abs. Basophil 0.00 k/uL Normal 0.00-0.20 [facility] Comment on above: Performed By: #### C DP BMPX ####[facility], [facility].[address] [place] [address] Lab Director: Sidney Epps MD Abs.Imm.Granulocyt e 0.43 k/uL High 0.00-0.30 [facility] Comment on above: Performed By: #### C DP, BMPX ####[facility].[address] [place] [id number] lab Director: Sidney Epps MD Abs.Neutrophil (Seg) 19.56 k/uL High 1.50-8.10 [facility] Comment on above: Performed By: #### C DP, BMPX ####[facility] [address] [place], [place] [phone] Director: Sidney Epps MD Basophils/100 WBC (Bld) 0 % Normal 0-2 [facility] Comment on above: Performed By: #### C DP, BMPX ####[address] [id number])[phone] Director: Sidney Epps MD Eosinophils (Bld) [#/Vol] 0.00 10*3/uL Normal 0.00-0.44 [facility] Comment on above: Performed By: #### C DP, BMPX ####[address] [address])[phone] Director: Sidney Epps MD Eosinophils/100 WBC (Bld) 0 % Low 1-4 [facility] Comment on above: Performed By: #### C DP, BMPX ####[address] [address])[phone] Director: Sidney Epps MD Immature granulocytes/100 WBC (Bld) 2 % High 0 [facility] Comment on above: Performed By: #### C DP, BMPX ####[address] [address])[phone] Director: Sidney Epps MD Lymphocytes (Bld) [#/Vol] 0.65 10*3/uL Low 1.10-3.70 [facility] Comment on above: Performed By: #### C DP, BMPX ####[facility] [address] [place] [address] [phone] Director: Sidney Epps MD Lymphocytes/100 WBC (Bld) 3 % Low 24-43 [facility] Comment on above: Performed By: #### C DP, BMPX ####[address] [address])[phone] Director: Sidney Epps MD Monocytes (Bld) [#/Vol] 0.86 10*3/uL Normal 0.10-1.20 [facility] Comment on above: Performed By: #### C DP, BMPX ####[address] [phone] Director: Sidney Epps MD Monocytes/100 WBC (Bld) 4 % Normal 3-12 [facility] Comment on above: Performed By: #### C DP, BMPX ####[address] [phone])[phone] Director: Sidney Epps MD Morphology Min (Bld) [Interp] ANISOCYTOSIS PRESENT Normal [facility] Comment on above: Performed By: #### C DP, BMPX ####[address] [address])[phone] Director: Sidney Epps MD Neutrophil (Seg) 91 % High 36-65 [facility] Comment on above: Performed By: #### C DP, BMPX ####[address] [address])[phone] Director: Sidney Epps MD Erythrocyte distribution width (RBC) [Ratio] 14.6 % High 11.8-14.4 [facility] Comment on above: Performed By: #### C DP, BMPX ####[address] [id number])[phone] Director: Sidney Epps MD Hematocrit (Bld) [Volume fraction] 31.7 % Low 36.3-47.1 [facility] Comment on above: Performed By: #### C DP, BMPX ####[address] [place], [place] [phone])[phone] Director: Sidney Epps MD Hemoglobin (Bld) [Mass/Vol] 9.5 g/dL Low 11.9-15.1 [facility] Comment on above: Performed By: #### C DP, BMPX ####[facility] [address] [place] [address])[phone] Director: Sidney Epps MD MCH (RBC) [Entitic mass] 29.9 pg Normal 25.2-33.5 [facility] Comment on above: Performed By: #### C DP, BMPX ####[place], [place] [address])[phone] Director: Sidney Epps MD MCHC (RBC) [Mass/Vol] 30.0 g/dL Normal 28.4-34.8 [facility] Comment on above: Performed By: #### C DP, BMPX ####[place], [place] [address])[phone] Director: Sidney Epps MD MCV (RBC) [Entitic vol] 99.7 fL Normal 82.6-102.9 [facility] Comment on above: Performed By: #### C DP, BMPX ####[place], [place] [address])[phone] Director: Sidney Epps MD NRBC Automated 0.0 per 100 WBC Normal 0.0 [facility] Comment on above: Performed By: #### C DP, BMPX ####[place], [place] [address])[phone] Director: Sidney Epps MD Platelet mean volume (Bld) [Entitic vol] 10.6 fL Normal 8.1-13.5 [facility] Comment on above: Performed By: #### C DP, BMPX ####[place], [place] [address])[phone] Director: Sidney Epps MD Platelets (Bld) [#/Vol] 232 10*3/uL Normal 138-453 [facility] Comment on above: Performed By: #### C DP, BMPX ####[facility] [address] [place] [address] Lab Director: Sidney Epps MD RBC (Bld) [#/Vol] 3.18 10*6/uL Low 3.95-5.11 [facility] Comment on above: Performed By: #### C DP, BMPX ####[facility] [address] [place], [place] [id number])[phone] Director: Sidney Epps MD WBC (Bld) [#/Vol] 21.5 10*3/uL High 3.5-11.3 [facility] Comment on above: Performed By: #### C DP, BMPX ####[facility] [address] [place] [address] Lab Director: Sidney Epps MD CT CHEST WO CONTRASTon 06-19 CT CHEST WO CONTRAST EXAMINATION: CT OF THE CHEST WITHOUT CONTRAST 06/19/2022 2:12 pm TECHNIQUE: CT of the chest was performed without the administration of intravenous contrast. Multiplanar reformatted images are provided for review. Automated exposure control, iterative reconstruction, and/or weight based adjustment of the mA/kV was utilized to reduce the radiation dose to as low as reasonably achievable. COMPARISON: Modified barium swallow 06/19/2022. Chest radiograph 06/17/2022. HISTORY: ORDERING SYSTEM PROVIDED HISTORY: LUNG NODULE TECHNOLOGIST PROVIDED HISTORY: LUNG NODULE Reason for Exam: LUNG NODULE, covid+ FINDINGS: Mediastinum: Normal heart size with no significant pericardial effusion. Severe triple-vessel distribution coronary artery calcifications. Mild aortic valve calcifications. Moderate thoracic aortic atherosclerotic calcifications with no aneurysmal dilatation. No significant enlarged mediastinal or hilar lymph nodes. There is a large hiatal hernia which is nondistended. There is some mild retained contrast from the modified barium swallow within the stomach. The esophagus is nondistended. Lungs/pleura: The trachea and bronchi are patent. Mild pulmonary hyperinflation. No effusion or pneumothorax. Evidence of remote healed granulomatous disease. In the right lower lobe there is some linear subsegmental opacity which may represent scarring or subsegmental atelectasis. In the lingula there is a subpleural 0.8 cm nodular density with adjacent volume loss and consolidation. Upper Abdomen: Abdominal aortic and large arterial vascular calcifications. Bilateral renal artery origin stents. On this noncontrast exam the liver parenchyma demonstrates diffuse increased density with average Hounsfield units of 72. No focal intrahepatic mass or biliary dilatation identified. Indeterminate focal fat induration and free fluid in the left upper quadrant abutting the superior spleen. Soft Tissues/Bones: No diffuse body wall edema. No significant axillary or supraclavicular lymphadenopathy. Decreased bone mineral density. The thoracic spine demonstrates normal kyphotic curvature and alignment with multilevel degenerative changes. Right 5th rib posterolateral intramedullary nonexpansile 2.5 cm sclerosis. This demonstrates serrated margins consistent with a bone island. No acute osseous abnormality. IMPRESSION: 1. No evidence of acute pneumonia. 2. The right superior hemithorax nodular density identified on the chest radiograph corresponds with a 5th rib intramedullary bone island. No follow-up imaging recommended. 3. Lingular 0.8 cm solid nodule with adjacent scarring versus subsegmental consolidation. Follow-up CT thorax is recommended, see recommendations. RECOMMENDATIONS: Fleischner Society guidelines for follow-up and management of incidentally detected pulmonary nodules: Single Solid Nodule: Nodule size equals 6-8 mm In a low-risk patient, CT at 6-12 months, then consider CT at 18-24 months. In a high-risk patient, CT at 6-12 months, then CT at 18-24 months. - Low risk patients include individuals with minimal or absent history of smoking and other known risk factors. - High risk patients include individuals with a history or smoking or known risk factors. Radiology 2017 http://pubs.rsna.org/d oi/full/10.1148/radiol .[id number] Interpreted by: Scott Sinha MD Signed by: Scott Sinha MD 06/19/22 Final result Normal [facility] 1. No evidence of acute pneumonia. 2. The right superior hemithorax nodular density identified on the chest radiograph corresponds with a 5th rib intramedullary bone island. No follow-up imaging recommended. 3. Lingular 0.8 cm solid nodule with adjacent scarring versus subsegmental consolidation. Follow-up CT thorax is recommended, see recommendations. RECOMMENDATIONS: Fleischner Society guidelines for follow-up and management of incidentally detected pulmonary nodules: Single Solid Nodule: Nodule size equals 6-8 mm In a low-risk patient, CT at 6-12 months, then consider CT at 18-24 months. In a high-risk patient, CT at 6-12 months, then CT at 18-24 months. - Low risk patients include individuals with minimal or absent history of smoking and other known risk factors. - High risk patients include individuals with a history or smoking or known risk factors. Radiology 2017 http://pubs.rsna.org/d oi/full/10.1148/radiol .[id number] [facility] RIS CONSOLIDATED EXAMINATION: CT OF THE CHEST WITHOUT CONTRAST 06/19/2022 2:12 pm TECHNIQUE: CT of the chest was performed without the administration of intravenous contrast. Multiplanar reformatted images are provided for review. Automated exposure control, iterative reconstruction, and/or weight based adjustment of the mA/kV was utilized to reduce the radiation dose to as low as reasonably achievable. COMPARISON: Modified barium swallow 06/19/2022. Chest radiograph 06/17/2022. HISTORY: ORDERING SYSTEM PROVIDED HISTORY: LUNG NODULE TECHNOLOGIST PROVIDED HISTORY: LUNG NODULE Reason for Exam: LUNG NODULE, covid+ FINDINGS: Mediastinum: Normal heart size with no significant pericardial effusion. Severe triple-vessel distribution coronary artery calcifications. Mild aortic valve calcifications. Moderate thoracic aortic atherosclerotic calcifications with no aneurysmal dilatation. No significant enlarged mediastinal or hilar lymph nodes. There is a large hiatal hernia which is nondistended. There is some mild retained contrast from the modified barium swallow within the stomach. The esophagus is nondistended. Lungs/pleura: The trachea and bronchi are patent. Mild pulmonary hyperinflation. No effusion or pneumothorax. Evidence of remote healed granulomatous disease. In the right lower lobe there is some linear subsegmental opacity which may represent scarring or subsegmental atelectasis. In the lingula there is a subpleural 0.8 cm nodular density with adjacent volume loss and consolidation. Upper Abdomen: Abdominal aortic and large arterial vascular calcifications. Bilateral renal artery origin stents. On this noncontrast exam the liver parenchyma demonstrates diffuse increased density with average Hounsfield units of 72. No focal intrahepatic mass or biliary dilatation identified. Indeterminate focal fat induration and free fluid in the left upper quadrant abutting the superior spleen. Soft Tissues/Bones: No diffuse body wall edema. No significant axillary or supraclavicular lymphadenopathy. Decreased bone mineral density. The thoracic spine demonstrates normal kyphotic curvature and alignment with multilevel degenerative changes. Right 5th rib posterolateral intramedullary nonexpansile 2.5 cm sclerosis. This demonstrates serrated margins consistent with a bone island. No acute osseous abnormality. [facility] RIS CONSOLIDATED Scott Sinha MD - 06/19/2022 EXAMINATION: CT OF THE CHEST WITHOUT CONTRAST 06/19/2022 2:12 pm TECHNIQUE: CT of the chest was performed without the administration of intravenous contrast. Multiplanar reformatted images are provided for review. Automated exposure control, iterative reconstruction, and/or weight based adjustment of the mA/kV was utilized to reduce the radiation dose to as low as reasonably achievable. COMPARISON: Modified barium swallow 06/19/2022. Chest radiograph 06/17/2022. HISTORY: ORDERING SYSTEM PROVIDED HISTORY: LUNG NODULE TECHNOLOGIST PROVIDED HISTORY: LUNG NODULE Reason for Exam: LUNG NODULE, covid+ FINDINGS: Mediastinum: Normal heart size with no significant pericardial effusion. Severe triple-vessel distribution coronary artery calcifications. Mild aortic valve calcifications. Moderate thoracic aortic atherosclerotic calcifications with no aneurysmal dilatation. No significant enlarged mediastinal or hilar lymph nodes. There is a large hiatal hernia which is nondistended. There is some mild retained contrast from the modified barium swallow within the stomach. The esophagus is nondistended. Lungs/pleura: The trachea and bronchi are patent. Mild pulmonary hyperinflation. No effusion or pneumothorax. Evidence of remote healed granulomatous disease. In the right lower lobe there is some linear subsegmental opacity which may represent scarring or subsegmental atelectasis. In the lingula there is a subpleural 0.8 cm nodular density with adjacent volume loss and consolidation. Upper Abdomen: Abdominal aortic and large arterial vascular calcifications. Bilateral renal artery origin stents. On this noncontrast exam the liver parenchyma demonstrates diffuse increased density with average Hounsfield units of 72. No focal intrahepatic mass or biliary dilatation identified. Indeterminate focal fat induration and free fluid in the left upper quadrant abutting the superior spleen. Soft Tissues/Bones: No diffuse body wall edema. No significant axillary or supraclavicular lymphadenopathy. Decreased bone mineral density. The thoracic spine demonstrates normal kyphotic curvature and alignment with multilevel degenerative changes. Right 5th rib posterolateral intramedullary nonexpansile 2.5 cm sclerosis. This demonstrates serrated margins consistent with a bone island. No acute osseous abnormality. IMPRESSION: 1. No evidence of acute pneumonia. 2. The right superior hemithorax nodular density identified on the chest radiograph corresponds with a 5th rib intramedullary bone island. No follow-up imaging recommended. 3. Lingular 0.8 cm solid nodule with adjacent scarring versus subsegmental consolidation. Follow-up CT thorax is recommended, see recommendations. RECOMMENDATIONS: Fleischner Society guidelines for follow-up and management of incidentally detected pulmonary nodules: Single Solid Nodule: Nodule size equals 6-8 mm In a low-risk patient, CT at 6-12 months, then consider CT at 18-24 months. In a high-risk patient, CT at 6-12 months, then CT at 18-24 months. - Low risk patients include individuals with minimal or absent history of smoking and other known risk factors. - High risk patients include individuals with a history or smoking or known risk factors. Radiology 2017 http://pubs.rsna.org/d oi/full/10.1148/radiol .[id number] [employer] Phone: Radiology Study observation (narrative) [employer] Phone: CT CHEST WO CONTRASTOrdered By: Scott Sinha on 06-19-2022 [employer] Phone: FL MODIFIED BARIUM SWALLOW W VIDEOon 06-19-2022 [place] MODIFIED BARIUM SWALLOW W VIDEO EXAMINATION: MODIFIED BARIUM SWALLOW WAS PERFORMED IN CONJUNCTION WITH SPEECH PATHOLOGY SERVICES TECHNIQUE: Under fluoroscopic evaluation cineradiography/videor adiography recordings were performed in conjunction with the speech-language pathologist ([employer] ADMINISTRATOR). Various liquid, solid and/or semi-solid barium preparations were used to assess swallowing function. FLUOROSCOPY DOSE AND TYPE OR TIME AND EXPOSURES: DAP 12.857RPsac4 COMPARISON: None HISTORY: ORDERING SYSTEM PROVIDED HISTORY: dysphagia and hx of esophageal dilatation TECHNOLOGIST PROVIDED HISTORY: dysphagia and hx of esophageal dilatation FINDINGS: Patient was given thick and thin barium as well as puree, soft solid and cookie consistency barium. No laryngeal penetration or aspiration. Minimal pooling in the vallecula and piriform sinuses. IMPRESSION: Swallowing mechanism grossly within normal limits without evidence of aspiration. Please see separate speech pathology report for full discussion of findings and recommendations. Interpreted by: Juancho Ferrara MD Signed by: Juancho Ferrara MD 06/19/22 Final result Normal [facility] Swallowing mechanism grossly within normal limits without evidence of aspiration. Please see separate speech pathology report for full discussion of findings and recommendations. [facility] CONSOL[facility] EXAMINATION: MODIFIED BARIUM SWALLOW WAS PERFORMED IN CONJUNCTION WITH SPEECH PATHOLOGY SERVICES TECHNIQUE: Under fluoroscopic evaluation cineradiography/videor adiography recordings were performed in conjunction with the speech-language pathologist ([employer]S ADMINISTRATOR). Various liquid, solid and/or semi-solid barium preparations were used to assess swallowing function. FLUOROSCOPY DOSE AND TYPE OR TIME AND EXPOSURES: DAP [id number] COMPARISON: None HISTORY: ORDERING SYSTEM PROVIDED HISTORY: dysphagia and hx of esophageal dilatation TECHNOLOGIST PROVIDED HISTORY: dysphagia and hx of esophageal dilatation FINDINGS: Patient was given thick and thin barium as well as puree, soft solid and cookie consistency barium. No laryngeal penetration or aspiration. Minimal pooling in the vallecula and piriform sinuses. [facility] Juancho Ferrara MD - 06/19/2022 EXAMINATION: MODIFIED BARIUM SWALLOW WAS PERFORMED IN CONJUNCTION WITH SPEECH PATHOLOGY SERVICES TECHNIQUE: Under fluoroscopic evaluation cineradiography/videor adiography recordings were performed in conjunction with the speech-language pathologist ([employer]S ADMINISTRATOR). Various liquid, solid and/or semi-solid barium preparations were used to assess swallowing function. FLUOROSCOPY DOSE AND TYPE OR TIME AND EXPOSURES: DAP 12.697DAlfn3 COMPARISON: None HISTORY: ORDERING SYSTEM PROVIDED HISTORY: dysphagia and hx of esophageal dilatation TECHNOLOGIST PROVIDED HISTORY: dysphagia and hx of esophageal dilatation FINDINGS: Patient was given thick and thin barium as well as puree, soft solid and cookie consistency barium. No laryngeal penetration or aspiration. Minimal pooling in the vallecula and piriform sinuses. IMPRESSION: Swallowing mechanism grossly within normal limits without evidence of aspiration. Please see separate speech pathology report for full discussion of findings and recommendations. [facility] [employer] Phone: Radiology Study observation (narrative) [facility]ITALJun[facility] Phone: FL MODIFIED BARIUM SWALLOW W VIDEOOrdered By: Juancho Ferrara on 06-19-2022 [facility] Work Phone: B12/Folate Panelon 3 Cobalamin (Vitamin B12) [Mass/Vol] 496 pg/mL Normal 232-1245 [facility] Comment on above: Performed By: #### B 12FOL ####[facility] [address] [place] [address] Lab Director: Sidney Epps MD Folic Acid 5.3 ng/mL Normal >4.8 [facility] Comment on above: Performed By: #### B 12FOL ####[address] [place], [place] [phone] Director: Sidney Epps MD Basic Metab w/rfx MGon 06-18 Anion gap [Moles/Vol] 11 mmol/L Normal 9-17 [facility] Comment on above: Performed By: #### F KRISTEN, IPF, CDP, BMPX, FEBC ####[facility] [address] [place], [place] [phone] Director: Sidney Epps MD Calcium [Mass/Vol] 9.2 mg/dL Normal 8.6-10.4 [facility] Comment on above: Performed By: #### F KRISTEN, IPF, CDP, BMPX, FEBC ####[facility] [address] [place], [place] [id number])[phone] Director: Sidney Epps MD Chloride [Moles/Vol] 112 mmol/L High 98-107 [facility] Comment on above: Performed By: #### F KRISTEN, IPF, CDP, BMPX, FEBC ####[facility] [address] [place], [place] [phone] Director: Sidney Epps MD CO2 [Moles/Vol] 20 mmol/L Normal 20-31 [facility] Comment on above: Performed By: #### F KRISTEN, IPF, CDP, BMPX, FEBC ####[facility] [address] [place] [address] Lab Director: Sidney Epps MD Creatinine [Mass/Vol] 1.51 mg/dL High 0.50-0.90 [facility] Comment on above: Performed By: #### F KRISTEN, IPF, CDP, BMPX, FEBC ####[address] [place] [address] Lab Director: Sidney Epps MD GFR/1.73 sq M.predicted among non-blacks MDRD (S/P/Bld) [Vol rate/Area] 34 mL/min/{1.73_m2} Low >60 [facility] Comment on above: Result Comment: These results are not intended for use in patients <18 years of age. eGFR results are calculated without a race factor using the 2020 CKD-EPI equation. Careful clinical correlation is recommended, particularly when comparing to results calculated using previous equations. The CKD-EPI equation is less accurate in patients with extremes of muscle mass, extra-renal metabolism of creatine, excessive creatine ingestion, or following therapy that affects renal tubular secretion. Performed By: #### F KRISTEN, IPF, CDP, BMPX, FEBC ####[address] [place] [address] Lab Director: Sidney Epps MD Glucose [Mass/Vol] 153 mg/dL High 70-99 [facility] Comment on above: Performed By: #### F KRISTEN, IPF, CDP, BMPX, FEBC ####[facility] [address] [place] [address] Lab Director: Sidney Epps MD Potassium [Moles/Vol] 4.5 mmol/L Normal 3.7-5.3 [facility] Comment on above: Performed By: #### F KRISTEN, IPF, CDP, BMPX, FEBC ####[facility] [address] [place] [address] Lab Director: Sidney Epps MD Sodium [Moles/Vol] 143 mmol/L Normal 135-144 [facility] Comment on above: Performed By: #### F KRISTEN, IPF, CDP, BMPX, FEBC ####[address] [place], [place] [id number] Lab Director: Sidney Epps MD Urea nitrogen [Mass/Vol] 27 mg/dL High 8-23 [facility] Comment on above: Performed By: #### F KRISTEN, IPF, CDP, BMPX, FEBC ####[employer] [address] [place], [place] [id number] lab Director: Sidney Epps MD Basic Metabolic Panel w/ Ref rashid to [facility] 06-18-2022 Anion gap [Moles/Vol] 11 mmol/L 9 - 17 mmol/L [employer] Calcium [Mass/Vol] 9.2 mg/dL 8.6 - 10.4 mg/dL [facility] Chloride [Moles/Vol] 112 mmol/L High 98 - 107 mmol/L [employer] [facility] CO2 [Moles/Vol] 20 mmol/L 20 - 31 mmol/L [facility] [employer] Creatinine [Mass/Vol] 1.51 mg/dL High 0.50 - 0.90 mg/dL [employer] GFR/1.73 sq M.predicted MDRD (S/P/Bld) [Vol rate/Area] 34 mL/min/{1.73_m2} Low - PINF [facility] Comment on above: These results are not intended for use in patients <18 years of age. eGFR results are calculated without a race factor using the 2020 CKD-EPI equation. Careful clinical correlation is recommended, particularly when comparing to results calculated using previous equations. The CKD-EPI equation is less accurate in patients with extremes of muscle mass, extra-renal metabolism of creatine, excessive creatine ingestion, or following therapy that affects renal tubular secretion. Glucose [Mass/Vol] 153 mg/dL High 70 - 99 mg/dL [facility] Interpretation and review of laboratory results Abnormal [employer] [facility] Potassium [Moles/Vol] 4.5 mmol/L 3.7 - 5.3 mmol/L [facility] Sodium [Moles/Vol] 143 mmol/L 135 - 144 mmol/L [facility] Urea nitrogen [Mass/Vol] 27 mg/dL High 8 - 23 mg/dL [facility] C1 ESTERASE INHIBITOR PANELo n 06-18-2022 C1 Esterase Inhibitor 38 mg/dL 21 - 38 mg/dL [facility] Comment on above: (NOTE) Performed By: [employer] [address] [place], [place] [id number] V[employer] Dipper: Alessio Hung MD, PhD [facility] C1 Esterase Inhibon 06-18-19 C1 Esterase Inhib 38 mg/dL Normal 21-38 [facility] Comment on above: Result Comment: (NOT E) Performed By: [employer] [address] [place] [address] V[employer] Dipper: Alessio Hung MD, PhD Performed By: #### S ED, BNP, CMPX, CRP, IPF, CDP, C4 ####[facility] [address] [place] [address] Lab Director: Sidney Epps MD#### AC1EIN ####[facility] [address] [place] [address] lab Director: Bob Florence MD CBC with Auto Differentialon 06-18-2022 Absolute Eos # 0.00 [facility] Absolute Immature Granulocyte 0.47 High [facility] Absolute Lymph # 1.17 [facility] Absolute Calhoun # 0.93 [facility] Basophils (Bld) [#/Vol] 0.00 10*3/uL [facility] Basophils/100 WBC (Bld) 0 % 0 - 2 % [facility] Eosinophils/100 WBC (Bld) 0 % Low 1 - 4 % [facility] Hematocrit (Bld) [Volume fraction] 29.1 % Low 36.3 - 47.1 % [facility] Hemoglobin (Bld) [Mass/Vol] 9.4 g/dL Low 11.9 - 15.1 g/dL [facility] Immature granulocytes/100 WBC (Bld) 2 % High 0 [facility] Interpretation and review of laboratory results Abnormal [facility] Lymphocytes/100 WBC (Bld) 5 % Low 24 - 43 % [facility] MCH (RBC) [Entitic mass] 29.8 pg 25.2 - 33.5 pg [facility] MCHC (RBC) [Mass/Vol] 32.3 g/dL 28.4 - 34.8 g/dL [facility] MCV (RBC) [Entitic vol] 92.4 fL 82.6 - 102.9 fL [facility] Monocytes/100 WBC (Bld) 4 % 3 - 12 % [facility] Morphology Min (Bld) [Interp] ANISOCYTOSIS PRESENT [facility] NRBC Automated 0.0 0.0 per 100 WBC [facility] Platelet distribution width (Bld) [Ratio] 14.6 % High 11.8 - 14.4 % [facility] Platelets (Bld) [#/Vol] See Reflexed IPF Result [facility] RBC (Bld) [#/Vol] 3.15 10*6/uL Low 3.95 - 5.11 m/uL [facility] Segmented neutrophils/100 WBC (Bld) 89 % High 36 - 65 % [facility] Segs Absolute 20.73 High [facility] WBC (Bld) [#/Vol] 23.3 10*3/uL High [facility] CBC with Diffon 06-18-2022 Abs. Basophil 0.00 k/uL Normal 0.00-0.20 [facility] Comment on above: Performed By: #### F KRISTEN, IPF, CDP, BMPX, FEBC ####[address] [place], [place] [id number] lab Director: Sidney Epps MD Abs.Imm.Granulocyt e 0.47 k/uL High 0.00-0.30 [facility] Comment on above: Performed By: #### F KRISTEN, IPF, CDP, BMPX, FEBC ####[address] [place], [place] [phone] Director: Sidney Epps MD Abs.Neutrophil (Seg) 20.73 k/uL High 1.50-8.10 [facility] Comment on above: Performed By: #### F KRISTEN, IPF, CDP, BMPX, FEBC ####[facility] [address] [place] [phone])[phone] Director: Sidney Epps MD Basophils/100 WBC (Bld) 0 % Normal 0-2 [facility] Comment on above: Performed By: #### F KRISTEN, IPF, CDP, BMPX, FEBC ####[address] [address])[phone] Director: Sidney Epps MD Eosinophils (Bld) [#/Vol] 0.00 10*3/uL Normal 0.00-0.44 [facility] Comment on above: Performed By: #### F KRISTEN, IPF, CDP, BMPX, FEBC ####[facility] [address] [place] [phone])[phone] Director: Sidney Epps MD Eosinophils/100 WBC (Bld) 0 % Low 1-4 [facility] Comment on above: Performed By: #### F KRISTEN, IPF, CDP, BMPX, FEBC ####[facility] [address] [place] [address])[phone] Director: Sidney Epps MD Immature granulocytes/100 WBC (Bld) 2 % High 0 [facility] Comment on above: Performed By: #### F KRISTEN, IPF, CDP, BMPX, FEBC ####[address] [address])[phone] Director: Sidney Epps MD Lymphocytes (Bld) [#/Vol] 1.17 10*3/uL Normal 1.10-3.70 [facility] Comment on above: Performed By: #### F KRISTEN, IPF, CDP, BMPX, FEBC ####[facility] [address] [place], [place] [phone] Director: Sidney Epps MD Lymphocytes/100 WBC (Bld) 5 % Low 24-43 [facility] Comment on above: Performed By: #### F KRISTEN, IPF, CDP, BMPX, FEBC ####[facility] [address] [place] [address] [phone])[phone] Director: Sidney Epps MD Monocytes (Bld) [#/Vol] 0.93 10*3/uL Normal 0.10-1.20 [facility] Comment on above: Performed By: #### F KRISTEN, IPF, CDP, BMPX, FEBC ####[address] [phone] Director: Sidney Epps MD Monocytes/100 WBC (Bld) 4 % Normal 3-12 [facility] Comment on above: Performed By: #### F KRISTEN, IPF, CDP, BMPX, FEBC ####[address] [phone] Director: Sidney Epps MD Morphology Min (Bld) [Interp] ANISOCYTOSIS PRESENT Normal [facility] Comment on above: Performed By: #### F KRISTEN, IPF, CDP, BMPX, FEBC ####[facility] [address] [place] [address] [phone] Director: Sidney Epps MD Neutrophil (Seg) 89 % High 36-65 [facility] Comment on above: Performed By: #### F KRISTEN, IPF, CDP, BMPX, FEBC ####[facility] [address] [place], [place] [phone] Director: Sidney Epps MD Erythrocyte distribution width (RBC) [Ratio] 14.6 % High 11.8-14.4 [facility] Comment on above: Performed By: #### F KRISTEN, IPF, CDP, BMPX, FEBC ####[facility] [address] [place] [address] Lab Director: Sidney Epps MD Hematocrit (Bld) [Volume fraction] 29.1 % Low 36.3-47.1 [facility] Comment on above: Performed By: #### F KRISTEN, IPF, CDP, BMPX, FEBC ####[facility] [address] [place] [address] Lab Director: Sidney Epps MD Hemoglobin (Bld) [Mass/Vol] 9.4 g/dL Low 11.9-15.1 [facility] Comment on above: Performed By: #### F KRISTEN, IPF, CDP, BMPX, FEBC ####[facility] [address] [place] [address] Lab Director: Sidney Epps MD MCH (RBC) [Entitic mass] 29.8 pg Normal 25.2-33.5 [facility] Comment on above: Performed By: #### F KRISTEN, IPF, CDP, BMPX, FEBC ####[facility] [address] [place], [place] [phone] Director: Sidney Epps MD MCHC (RBC) [Mass/Vol] 32.3 g/dL Normal 28.4-34.8 [facility] Comment on above: Performed By: #### F KRISTEN, IPF, CDP, BMPX, FEBC ####[facility] [address] [place], [place] [phone] Director: Sidney Epps MD MCV (RBC) [Entitic vol] 92.4 fL Normal 82.6-102.9 [facility] Comment on above: Performed By: #### F KRISTEN, IPF, CDP, BMPX, FEBC ####[facility] [address] [place] [address] Lab Director: Sidney Epps MD NRBC Automated 0.0 per 100 WBC Normal 0.0 [facility] Comment on above: Performed By: #### F KRISTEN, IPF, CDP, BMPX, FEBC ####[facility] [address] [place], [place] [phone] Director: Sidney Epps MD Platelet Count See Reflexed IPF Result Normal 138-453 [facility] Comment on above: Performed By: #### F KRISTEN, IPF, CDP, BMPX, FEBC ####[facility] [address] [place] [address] Lab Director: Sidney Epps MD RBC (Bld) [#/Vol] 3.15 10*6/uL Low 3.95-5.11 [facility] Comment on above: Performed By: #### F KRISTEN, IPF, CDP, BMPX, FEBC ####[facility] [address] [place] [address] Lab Director: Sidney Epps MD WBC (Bld) [#/Vol] 23.3 10*3/uL High 3.5-11.3 [facility] Comment on above: Performed By: #### F KRISTEN, IPF, CDP, BMPX, FEBC ####[facility] [address] [place], [place] [phone] Director: Sidney Epps MD EKG 12 leadOrdered By: Unkno wn Result on 06-18-2022 Atrial Rate 94 BPM [facility] P [place] 119 degrees [facility] P-R Interval 168 ms [facility] Q-T Interval 370 ms [facility] QRS Duration 74 ms [facility] QTc Calculation (Bazett) 462 ms [facility] R [place] 171 degrees [facility] T [place] 120 degrees [facility] Ventricular Rate 94 BPM [facility] EKG 12 leadon 06-18-2022 Suspect arm lead reversal, interpretation assumes no reversal Normal sinus rhythm Right axis deviation Nonspecific ST abnormality Abnormal ECG No previous ECGs available [facility] STV MUSE Result, Unknown Provider - 06/18/2022 Suspect arm lead reversal, interpretation assumes no reversal Normal sinus rhythm Right axis deviation Nonspecific ST abnormality Abnormal ECG No previous ECGs available [employer] Work Phone: Ferritinon 06-18-2022 Ferritin [Mass/Vol] 92 ng/mL Normal 13-150 [facility] Comment on above: Performed By: #### F KRISTEN, IPF, CDP, BMPX, FEBC ####[address] [place] [address] Lab Director: Sidney Epps MD Ferritin [Mass/Vol] 92 ng/mL 13 - 150 ng/mL [facility] C[facility]ZE Immature Platelet Fractionon 06-18-2022 Platelet, Fluorescence 223 [facility] Comment on above: ORDERED BY LAB Platelet, Immature Fraction 2.8 % 1.1 - 10.3 % [facility] Comment on above: ORDERED BY LAB [facility] C[facility]ZE Iron Binding Cap.on 06-18-19 23 % Fe Saturation 24 % Normal 20-55 [facility] Comment on above: Performed By: #### F KRISTEN, IPF, CDP, BMPX, FEBC ####[id number] [place] [address] Lab Director: Sidney Epps MD Iron [Mass/Vol] 63 ug/dL Normal 37-145 [facility] Comment on above: Performed By: #### F KRISTEN, IPF, CDP, BMPX, FEBC ####[address] [place] [address] Lab Director: Sidney Epps MD Total Fe Binding Cap 260 ug/dL Normal 250-450 [facility] Comment on above: Performed By: #### F KRISTEN, IPF, CDP, BMPX, FEBC ####[address] [place], [place] [id number] Lab Director: Sidney Epps MD Unbound Fe Bind Cap 197 ug/dL Normal 112-347 [facility] Comment on above: Performed By: #### F KRISTEN, IPF, CDP, BMPX, FEBC ####[facility] [address] [place] [address] Lab Director: Sidney Epps MD Iron and TIBCon 06-18-2022 Iron [Mass/Vol] 63 ug/dL 37 - 145 ug/dL [facility] Iron binding capacity [Mass/Vol] 260 ug/dL 250 - 450 ug/dL [facility] Iron Saturation 24 % 20 - 55 % [facility] UIBC 197 ug/dL 112 - 347 ug/dL [facility] MRSA DNA Probe, Nasalon MRSA, DNA, Nasal Negative NEGATIVE [facility] Comment on above: NEGATIVE: MRSA DNA n ot detected by nucleic acid amplification. Results should be used as an adjunct to nosocomial control efforts to identify patients needing enhanced precautions. The test is not intended to identify patients with staphylococcal infections. Results should not be used to guide or monitor treatment for MRSA infections. Specimen Description .NASAL SWAB [facility] MRSA, DNA, Nasalon MRSA, DNA, Nasal Negative Normal NEG [facility] Comment on above: Result Comment: NEGA TIVE: MRSA DNA not detected by nucleic acid amplification. Results should be used as an adjunct to nosocomial control efforts to identify patients needing enhanced precautions. The test is not intended to identify patients with staphylococcal infections. Results should not be used to guide or monitor treatment for MRSA infections. Performed By: #### M RSANO #### [address] [place] [address] Director Of Capital Giving: Sidney Epps MD PLT, Immature Fract.on 06-18 Platelet, Fluoresc. 223 k/uL Normal 138-453 [facility] Comment on above: Result Comment: ORDE RED BY LAB Performed By: #### F KRISTEN, IPF, CDP, BMPX, FEBC ####[facility] [address] [place], [place] [id number] Lab Director: Sidney Epps MD PLT, Immature Fract. 2.8 % Normal 1.1-10.3 [facility] Comment on above: Result Comment: ORDE RED BY LAB Performed By: #### F KRISTEN, IPF, CDP, BMPX, FEBC ####[facility] [address] [place] [address] Lab Director: Sidney Epps MD Vitamin B12 & Folateon 06-18 Cobalamin (Vitamin B12) [Mass/Vol] 496 pg/mL 232 - 1245 pg/mL [facility] CRAZE Folate [Mass/Vol] 5.3 ng/mL 4.8 - PINF ng/mL B ON [facility] CRAZE Brain Natri. Peptideon 06-17 Natriuretic peptide B (Bld) [Mass/Vol] 1834 pg/mL High <300 [facility] Comment on above: Result Comment: An age-independent cutoff point of 300 pg/ml has a 98% negative predictive value excluding acute heart failure. Performed By: #### S ED, BNP, CMPX, CRP, IPF, CDP, C4 #### [facility] [address] [place], [place] [id number] Director Of Capital Giving: Sidney Epps MD #### AC1EIN #### [facility] [address] [place] [address] Director Of Capital Giving: Bob Florence MD Brain Natriuretic Peptideon 06-17-2022 Natriuretic peptide B (Bld) [Mass/Vol] 1834 pg/mL High NINF - 300 pg/mL [facility] [employer] Comment on above: An age-independent cutoff point of 300 pg/ml has a 98% negative predictive value excluding acute heart failure. C-Reactive Proteinon 023 CRP [Mass/Vol] mg/L Normal 0.0-5.0 [facility] Comment on above: Performed By: #### S ED, BNP, CMPX, CRP, IPF, CDP, C4 #### [facility] [address] [place], [place] [phone] Director Of Capital Giving: Sidney Epps MD #### AC1EIN #### [facility] [address] [place], [place] [id number] Director Of Capital Giving: Bob Florence MD CRP High sensitivity method [Mass/Vol] mg/L 0.0 - 5.0 mg/L [facility] C4on 06-17-2022 C4 33 mg/dL Normal 10-40 [facility] Comment on above: Performed By: #### S ED, BNP, CMPX, CRP, IPF, CDP, C4 #### [facility] [address] [place], [place] [id number] Director Of Capital Giving: Sidney Epps MD #### AC1EIN #### [facility] [address] [place] [address] Director Of Capital Giving: Bob Florence MD C4 COMPLEMENTon 06-17-2022 Complement C4 33 mg/dL 10 - 40 mg/dL [facility] CBC with Auto Differentialon 06-17-2022 Absolute Eos # [facility] Absolute Immature Granulocyte 0.19 [facility] Absolute Lymph # 0.80 Low [facility] Absolute Calhoun # 0.[address] [facility] Basophils Absolute [facility] Basophils/100 WBC (Bld) 0 % 0 - 2 % [facility] Eosinophils/100 WBC (Bld) 0 % Low 1 - 4 % [facility] Hematocrit (Bld) [Volume fraction] 32.6 % Low 36.3 - 47.1 % [facility] Hemoglobin (Bld) [Mass/Vol] 10.2 g/dL Low 11.9 - 15.1 g/dL [facility] Immature granulocytes/100 WBC (Bld) 2 % High 0 [facility] Interpretation and review of laboratory results Abnormal [facility] Lymphocytes/100 WBC (Bld) 6 % Low 24 - 43 % [facility] MCH (RBC) [Entitic mass] 29.9 pg 25.2 - 33.5 pg [facility] MCHC (RBC) [Mass/Vol] 31.3 g/dL 28.4 - 34.8 g/dL [facility] MCV (RBC) [Entitic vol] 95.6 fL 82.6 - 102.9 fL [facility] Monocytes/100 WBC (Bld) 1 % Low 3 - 12 % [facility] NRBC Automated 0.0 0.0 per 100 WBC [facility] Platelet distribution width (Bld) [Ratio] 14.2 % 11.8 - 14.4 % [facility] Platelets (Bld) [#/Vol] See Reflexed IPF Result [facility] RBC (Bld) [#/Vol] 3.41 10*6/uL Low 3.95 - 5.11 m/uL [facility] Segmented neutrophils/100 WBC (Bld) 91 % High 36 - 65 % [facility] Segs Absolute 11.59 High [facility] WBC (Bld) [#/Vol] 12.8 10*3/uL High [facility] CBC with Diffon 06-17-2022 Abs. Basophil <0.03 Normal 0.00-0.20 [facility] Comment on above: Performed By: #### S ED, BNP, CMPX, CRP, IPF, CDP, C4 #### [address] [place], [place] [id number] Director Of Capital Giving: Sidney Epps MD #### AC1EIN #### [facility] [address] [place] [address] Director Of Capital Giving: Bob Florence MD Abs. Eosinophil <0.03 Normal 0.00-0.44 [facility] Comment on above: Performed By: #### S ED, BNP, CMPX, CRP, IPF, CDP, C4 #### [address] [place], [place] [id number] Director Of Capital Giving: Sidney Epps MD #### AC1EIN #### [facility] [address] [place], [place] [id number] Director Of Capital Giving: Bob Florence MD Abs.Imm.Granulocyt e 0.19 k/uL Normal 0.00-0.30 [facility] Comment on above: Performed By: #### S ED, BNP, CMPX, CRP, IPF, CDP, C4 #### [address] [address] Director Of Capital Giving: Sidney Epps MD #### AC1EIN #### [facility] [address] [place], [place] [id number] Director Of Capital Giving: Bob Florence MD Abs.Neutrophil (Seg) 11.59 k/uL High 1.50-8.10 [facility] Comment on above: Performed By: #### S ED, BNP, CMPX, CRP, IPF, CDP, C4 #### [address] [address] Director Of Capital Giving: Sidney Epps MD #### AC1EIN #### [facility] [address] [place], [place] [id number] Director Of Capital Giving: Bob Florence MD Basophils/100 WBC (Bld) 0 % Normal 0-2 [facility] Comment on above: Performed By: #### S ED, BNP, CMPX, CRP, IPF, CDP, C4 #### [address] [address] Director Of Capital Giving: Sidney Epps MD #### AC1EIN #### [facility] [address] [place], [place] [id number] Director Of Capital Giving: Bob Florence MD Eosinophils/100 WBC (Bld) 0 % Low 1-4 [facility] Comment on above: Performed By: #### S ED, BNP, CMPX, CRP, IPF, CDP, C4 #### [facility] [address] [place] [address] Director Of Capital Giving: Sidney Epps MD #### AC1EIN #### [facility] [address] [place], [place] [id number] Director Of Capital Giving: Bob Florence MD Erythrocyte distribution width (RBC) [Ratio] 14.2 % Normal 11.8-14.4 [facility] Comment on above: Performed By: #### S ED, BNP, CMPX, CRP, IPF, CDP, C4 #### [facility] [address] [place] [address] Director Of Capital Giving: Sidney Epps MD #### AC1EIN #### [facility] [address] [place], [place] [id number] Director Of Capital Giving: Bob Florence MD Hematocrit (Bld) [Volume fraction] 32.6 % Low 36.3-47.1 [facility] Comment on above: Performed By: #### S ED, BNP, CMPX, CRP, IPF, CDP, C4 #### [address] [address] Director Of Capital Giving: Sidney Epps MD #### AC1EIN #### [facility] [address] [place], [place] [id number] Director Of Capital Giving: Bob Florence MD Hemoglobin (Bld) [Mass/Vol] 10.2 g/dL Low 11.9-15.1 [facility] Comment on above: Performed By: #### S ED, BNP, CMPX, CRP, IPF, CDP, C4 #### [facility] [address] [place] [address] Director Of Capital Giving: Sidney Epps MD #### AC1EIN #### [facility] [address] [place], [place] [id number] Director Of Capital Giving: Bob Florence MD Immature granulocytes/100 WBC (Bld) 2 % High 0 [facility] Comment on above: Performed By: #### S ED, BNP, CMPX, CRP, IPF, CDP, C4 #### [facility] [address] [place] [address] Director Of Capital Giving: Sidney Epps MD #### AC1EIN #### [facility] [address] [place] [address] Director Of Capital Giving: Bob Florence MD Lymphocytes (Bld) [#/Vol] 0.80 10*3/uL Low 1.10-3.70 [facility] Comment on above: Performed By: #### S ED, BNP, CMPX, CRP, IPF, CDP, C4 #### [address] [address] Director Of Capital Giving: Sidney Epps MD #### AC1EIN #### [facility] [address] [place] [address] Director Of Capital Giving: Bob Florence MD Lymphocytes/100 WBC (Bld) 6 % Low 24-43 [facility] Comment on above: Performed By: #### S ED, BNP, CMPX, CRP, IPF, CDP, C4 #### [address] [address] Director Of Capital Giving: Sidney Epps MD #### AC1EIN #### [facility] [address] [place] [id number] Director Of Capital Giving: Bob Florence MD MCH (RBC) [Entitic mass] 29.9 pg Normal 25.2-33.5 [facility] Comment on above: Performed By: #### S ED, BNP, CMPX, CRP, IPF, CDP, C4 #### [address] [id number] Director Of Capital Giving: Sidney Epps MD #### AC1EIN #### [facility] [address] [place] [address] [phone] Director Of Capital Giving: Bob Florence MD MCHC (RBC) [Mass/Vol] 31.3 g/dL Normal 28.4-34.8 [facility] Comment on above: Performed By: #### S ED, BNP, CMPX, CRP, IPF, CDP, C4 #### [address] [address] Director Of Capital Giving: Sidney Epps MD #### AC1EIN #### [facility] [address] [place] [address] Director Of Capital Giving: Bob Florence MD MCV (RBC) [Entitic vol] 95.6 fL Normal 82.6-102.9 [facility] Comment on above: Performed By: #### S ED, BNP, CMPX, CRP, IPF, CDP, C4 #### [address] [address] Director Of Capital Giving: Sidney Epps MD #### AC1EIN #### [facility] [address] [place] [address] Director Of Capital Giving: Bob Florence MD Monocytes (Bld) [#/Vol] 0.17 10*3/uL Normal 0.10-1.20 [facility] Comment on above: Performed By: #### S ED, BNP, CMPX, CRP, IPF, CDP, C4 #### [address] [address] Director Of Capital Giving: Sidney Epps MD #### AC1EIN #### [facility] [address] [place] [address] Director Of Capital Giving: Bob Florence MD Monocytes/100 WBC (Bld) 1 % Low 3-12 [facility] Comment on above: Performed By: #### S ED, BNP, CMPX, CRP, IPF, CDP, C4 #### [address] [address] Director Of Capital Giving: Sidney Epps MD #### AC1EIN #### [facility] [address] [place] [address] Director Of Capital Giving: Bob Florence MD Neutrophil (Seg) 91 % High 36-65 [facility] Comment on above: Performed By: #### S ED, BNP, CMPX, CRP, IPF, CDP, C4 #### [address] [address] Director Of Capital Giving: Sidney Epps MD #### AC1EIN #### [facility] [address] [place] [address] Director Of Capital Giving: Bob Florence MD NRBC Automated 0.0 per 100 WBC Normal 0.0 [facility] Comment on above: Performed By: #### S ED, BNP, CMPX, CRP, IPF, CDP, C4 #### [address] [address] Director Of Capital Giving: Sidney Epps MD #### AC1EIN #### [facility] [address] [place] [address] Director Of Capital Giving: Bob Florence MD Platelet Count See Reflexed IPF Result Normal 138-453 [facility] Comment on above: Performed By: #### S ED, BNP, CMPX, CRP, IPF, CDP, C4 #### [address] [address] Director Of Capital Giving: Sidney Epps MD #### AC1EIN #### [facility] [address] [place] [address] Director Of Capital Giving: Bob Florence MD RBC (Bld) [#/Vol] 3.41 10*6/uL Low 3.95-5.11 [facility] Comment on above: Performed By: #### S ED, BNP, CMPX, CRP, IPF, CDP, C4 #### [address] [id number] Director Of Capital Giving: Sidney Epps MD #### AC1EIN #### [facility] [address] [place] [address] Director Of Capital Giving: Bob Florence MD WBC (Bld) [#/Vol] 12.8 10*3/uL High 3.5-11.3 [facility] Comment on above: Performed By: #### S ED, BNP, CMPX, CRP, IPF, CDP, C4 #### [facility] [address] [place], [place] [id number] Director Of Capital Giving: Sidney Epps MD #### AC1EIN #### [facility] [address] [place] [address] Director Of Capital Giving: Bob Florence MD COVID-19, Rapidon 06-17-2022 Interpretation and review of laboratory results Abnormal [facility] SARS-CoV-2 (COVID-19) RdRp gene JESS+probe Ql (Resp) Detected Abnormal Not Detected [facility] Comment on above: Rapid NAAT: The specimen is POSITIVE for SARS-Cov-2, the novel coronavirus associated with COVID-19. This test has been authorized by the FDA under an Emergency Use Authorization (EUA) for use by authorized laboratories. The ID NOW COVID-19 assay is designed to detect the virus that causes COVID-19 in patients with signs and symptoms of infection who are suspected of COVID-19. An individual without symptoms of COVID-19 and who is not shedding SARS-CoV-2 virus would expect to have a negative (not detected) result in this assay. Fact sheet for Healthcare Providers: https://www.fda.gov/media/247235/download Fact sheet for Patients: https://www.fda.gov/media/021602/download Methodology: Isothermal Nucleic Acid Amplification Results reported to the appropriate Health Department Specimen Description .NASOPHARYNGEAL SWAB [facility] CT NECK [facility] W CONon [address] W CON INDICATION: 86 years old; Female. Symptom/Location/Durat ion: Tongue swelling. History of lymphoma. TECHNIQUE: CT examination of the neck. Axial, coronal and sagittal reformats were reviewed. 100 mL of Omnipaque 300 was injected intravenously without complications. Ionizing radiation dose reduced via iterative reconstruction/FBP blend and body size kV/mA adjustment. COMPARISON: CT angiogram of the neck dated 05/09/2020. FINDINGS: AIRWAY: PARANASAL SINUSES AND MASTOID AIR CELLS: Visualized sinuses are clear. Mastoids and middle ears are clear. NASOPHARYNX: Normal in appearance. OROPHARYNX: Normal in appearance. ORAL CAVITY: There is diffuse swelling of the intrinsic muscles of the tongue. Lingual tonsillar enlargement is also seen with effacement of the vallecula and severe narrowing of the oropharyngeal airway. HYPOPHARYNX: There is edema extending into the supraglottic soft tissues adjacent to the posterior aspect of the tongue base extending inferiorly with effacement of the vallecula on the left. There is edema in the left aryepiglottic folds. LARYNX: Normal in appearance. TRACHEA: Patent. SOFT TISSUES: PARAPHARYNGEAL SPACE: Normal and symmetric. CAROTID SPACE: Dense vascular calcifications are seen. This is worse on the right than the left. PHOTOSTAT OPERATOR HELPER SPACE: Normal in appearance. RETROPHARYNGEAL SPACE: Normal in appearance. LYMPH NODES: No matted or necrotic lymph nodes are noted. GLANDS: PAROTID: Normal in appearance. SUBMANDIBULAR: Normal in appearance. THYROID: No thyroid nodule or adenopathy. MISCELLANEOUS: LUNG APICES: Clear. BONY CERVICAL SPINE: Multilevel cervical spondylosis is noted. VISUALIZED BRAIN: A portion of the brain is included in the examination. No gross evidence of pathologic enhancement is seen, however the study does not exclude all brain pathology. VISUALIZED GLOBES: No orbital masses are seen. DENTITION: Multiple missing teeth. OTHER: None. IMPRESSION: 1. Swelling of the tongue and aryepiglottic folds on the left with severe narrowing of the oropharyngeal airway as well as effacement of the left vallecula. A telephone call regarding the findings in examination was made to and acknowledged by Dr. Benton in the emergency department at 1:55 AM on 06/17/2022. Electronically authenticated by: SERGIO DUQUE Date: 2022-06-17 01:[address] [facility] Comp Metabolic Pr/rfx MGon 0 06-17-2022 Albumin [Mass/Vol] 4.3 g/dL Normal 3.5-5.2 [facility] Comment on above: Performed By: #### S ED, BNP, CMPX, CRP, IPF, CDP, C4 #### [address] [id number] Director Of Capital Giving: Sidney Epps MD #### AC1EIN #### [facility] [address] [place], [place] [id number] Director Of Capital Giving: Bob Florence MD Albumin/Glob Ratio 1.8 Normal 1.0-2.5 [facility] Comment on above: Performed By: #### S ED, BNP, CMPX, CRP, IPF, CDP, C4 #### [address] [id number] Director Of Capital Giving: Sidney Epps MD #### AC1EIN #### [address] [address] Director Of Capital Giving: Bob Florence MD Alkaline Phos 148 U/L High 35-104 [facility] Comment on above: Performed By: #### S ED, BNP, CMPX, CRP, IPF, CDP, C4 #### [address] [id number] Director Of Capital Giving: Sidney Epps MD #### AC1EIN #### [facility] [address] [place] [address] Director Of Capital Giving: Bob Florence MD ALT [Catalytic activity/Vol] 10 U/L Normal 5-33 [facility] Comment on above: Performed By: #### S ED, BNP, CMPX, CRP, IPF, CDP, C4 #### [address] [id number] Director Of Capital Giving: Sidney Epps MD #### AC1EIN #### [facility] [address] [place], [place] [id number] Director Of Capital Giving: Bob Florence MD Anion gap [Moles/Vol] 17 mmol/L Normal 9-17 [facility] Comment on above: Performed By: #### S ED, BNP, CMPX, CRP, IPF, CDP, C4 #### [address] [address] Director Of Capital Giving: Sidney Epps MD #### AC1EIN #### [facility] [address] [place], [place] [id number] Director Of Capital Giving: Bob Florence MD AST [Catalytic activity/Vol] 16 U/L Normal <32 [facility] Comment on above: Performed By: #### S ED, BNP, CMPX, CRP, IPF, CDP, C4 #### [address] [address] Director Of Capital Giving: Sidney Epps MD #### AC1EIN #### [address] [address] Director Of Capital Giving: Bob Florence MD Bilirubin [Mass/Vol] 0.4 mg/dL Normal 0.3-1.2 [facility] Comment on above: Performed By: #### S ED, BNP, CMPX, CRP, IPF, CDP, C4 #### [address] [address] Director Of Capital Giving: Sidney Epps MD #### AC1EIN #### [facility] [address] [place] [address] Director Of Capital Giving: Bob Florence MD Calcium [Mass/Vol] 9.7 mg/dL Normal 8.6-10.4 [facility] Comment on above: Performed By: #### S ED, BNP, CMPX, CRP, IPF, CDP, C4 #### [address] [address] Director Of Capital Giving: Sidney Epps MD #### AC1EIN #### [facility] [address] [place], [place] [id number] Director Of Capital Giving: Bob Florence MD Chloride [Moles/Vol] 107 mmol/L Normal 98-107 [facility] Comment on above: Performed By: #### S ED, BNP, CMPX, CRP, IPF, CDP, C4 #### [facility] [address] [place] [address] Director Of Capital Giving: Sidney Epps MD #### AC1EIN #### [facility] [address] [place] [address] Director Of Capital Giving: Bob Florence MD CO2 [Moles/Vol] 16 mmol/L Low 20-31 [facility] Comment on above: Performed By: #### S ED, BNP, CMPX, CRP, IPF, CDP, C4 #### [address] [id number] Director Of Capital Giving: Sidney Epps MD #### AC1EIN #### [facility] [address] [place] [address] [phone] Director Of Capital Giving: Bob Florence MD Creatinine [Mass/Vol] 1.24 mg/dL High 0.50-0.90 [facility] Comment on above: Performed By: #### S ED, BNP, CMPX, CRP, IPF, CDP, C4 #### [address] [phone] Director Of Capital Giving: Sidney Epps MD #### AC1EIN #### [facility] [address] [place] [address] [phone] Director Of Capital Giving: Bob Florence MD GFR/1.73 sq M.predicted among non-blacks MDRD (S/P/Bld) [Vol rate/Area] 43 mL/min/{1.73_m2} Low >60 [facility] Comment on above: Result Comment: These results are not intended for use in patients <18 years of age. eGFR results are calculated without a race factor using the 2020 CKD-EPI equation. Careful clinical correlation is recommended, particularly when comparing to results calculated using previous equations. The CKD-EPI equation is less accurate in patients with extremes of muscle mass, extra-renal metabolism of creatine, excessive creatine ingestion, or following therapy that affects renal tubular secretion. Performed By: #### S ED, BNP, CMPX, CRP, IPF, CDP, C4 #### [address] [id number] Director Of Capital Giving: Sidney Epps MD #### AC1EIN #### [address] [id number] Director Of Capital Giving: Bob Florence MD Glucose [Mass/Vol] 165 mg/dL High 70-99 [facility] Comment on above: Performed By: #### S ED, BNP, CMPX, CRP, IPF, CDP, C4 #### [address] [id number] Director Of Capital Giving: Sidney Epps MD #### AC1EIN #### [address] [phone] Director Of Capital Giving: Bob Florence MD Potassium [Moles/Vol] 4.2 mmol/L Normal 3.7-5.3 [facility] Comment on above: Performed By: #### S ED, BNP, CMPX, CRP, IPF, CDP, C4 #### [address] [id number] Director Of Capital Giving: Sidney Epps MD #### AC1EIN #### [address] [phone] Director Of Capital Giving: Bob Florence MD Protein [Mass/Vol] 6.7 g/dL Normal 6.4-8.3 [facility] Comment on above: Performed By: #### S ED, BNP, CMPX, CRP, IPF, CDP, C4 #### [address] [id number] Director Of Capital Giving: Sidney Epps MD #### AC1EIN #### [facility] [address] [place], [place] [id number] Director Of Capital Giving: Bob Florence MD Sodium [Moles/Vol] 140 mmol/L Normal 135-144 [facility] Comment on above: Performed By: #### S ED, BNP, CMPX, CRP, IPF, CDP, C4 #### [facility] [address] [place] [address] [id number] Director Of Capital Giving: Sidney Epps MD #### AC1EIN #### [facility] [address] [place] [address] Director Of Capital Giving: Bob Florence MD Urea nitrogen [Mass/Vol] 22 mg/dL Normal 8-23 [facility] Comment on above: Performed By: #### S ED, BNP, CMPX, CRP, IPF, CDP, C4 #### [facility] [address] [place] [address] [id number] Director Of Capital Giving: Sidney Epps MD #### AC1EIN #### [facility] [address] [place] [address] Director Of Capital Giving: Bob Florence MD Comprehensive Metabolic Pane l w/ Reflex to MGon 06-17-2022 Albumin [Mass/Vol] 4.3 g/dL 3.5 - 5.2 g/dL [facility] Albumin/Globulin [Mass ratio] 1.8 {ratio} 1.0 - 2.5 [facility] ALP [Catalytic activity/Vol] 148 U/L High 35 - 104 U/L [facility] ALT [Catalytic activity/Vol] 10 U/L 5 - 33 U/L [facility] Anion gap [Moles/Vol] 17 mmol/L 9 - 17 mmol/L [facility] AST [Catalytic activity/Vol] 16 U/L NINF - 32 U/L [facility] Bilirubin [Mass/Vol] 0.4 mg/dL 0.3 - 1.2 mg/dL [facility] Calcium [Mass/Vol] 9.7 mg/dL 8.6 - 10.4 mg/dL [facility] Chloride [Moles/Vol] 107 mmol/L 98 - 107 mmol/L [facility] CO2 [Moles/Vol] 16 mmol/L Low 20 - 31 mmol/L [facility] Creatinine [Mass/Vol] 1.24 mg/dL High 0.50 - 0.90 mg/dL [facility] GFR/1.73 sq M.predicted MDRD (S/P/Bld) [Vol rate/Area] 43 mL/min/{1.73_m2} Low - PINF [facility] Comment on above: These results are not intended for use in patients <18 years of age. eGFR results are calculated without a race factor using the 2020 CKD-EPI equation. Careful clinical correlation is recommended, particularly when comparing to results calculated using previous equations. The CKD-EPI equation is less accurate in patients with extremes of muscle mass, extra-renal metabolism of creatine, excessive creatine ingestion, or following therapy that affects renal tubular secretion. Glucose [Mass/Vol] 165 mg/dL High 70 - 99 mg/dL [facility] Potassium [Moles/Vol] 4.2 mmol/L 3.7 - 5.3 mmol/L [facility] Protein [Mass/Vol] 6.7 g/dL 6.4 - 8.3 g/dL [facility] Sodium [Moles/Vol] 140 mmol/L 135 - 144 mmol/L [facility] Urea nitrogen [Mass/Vol] 22 mg/dL 8 - 23 mg/dL [facility] Covid-19 PCR (CVDTBH)on SARS-CoV-2 (COVID-19) RNA JESS+probe Ql (Unsp spec) Detected Abnormal NOT DETECTED [facility] Comment on above: Result Comment: This test is not yet approved or cleared by the [place] FDA. When there are no FDA-approved or cleared tests available, and other criteria are met, FDA can make tests available under an emergency access mechanism called an Emergency Use Authorization (EUA). The EUA for this test is supported by the Cherry of Health and Human Service's declaration that circumstances exist to justify the emergency use of in vitro diagnostics for the detection and/or diagnosis of the virus that causes COVID-19. This EUA will remain in effect for the duration of the COVID-19 declaration justifying emergency of IVDs, unless it is terminated or revoked by the FDA (after which the test may no longer be used). Performed By: #### C VDTB #### [facility] [address] [address] [address] Carla Little Immature Platelet Fractionon 06-17-2022 Platelet, Fluorescence Platelet clumps present, count appears adequate. [facility] MRSA, DNA, Nasalon 3 Specimen Description .NASAL SWAB Normal [facility] Comment on above: Performed By: #### M RSANO #### [facility] [place] [address] Director Of Capital Giving: Sidney Epps MD No Panel Informationon 06-17 Interpretation and review of laboratory results Abnormal [facility] PLT, Immature Fract.on 06-17 Platelet, Fluoresc. Platelet clumps present, count appears adequate. Normal 138-453 [facility] Comment on above: Performed By: #### S ED, BNP, CMPX, CRP, IPF, CDP, C4 #### [facility] [place] [address] Director Of Capital Giving: Sidney Epps MD #### AC1EIN #### [facility] [address] [place] [address] Director Of Capital Giving: Bob Florence MD POC Glucose Fingerstickon Glucose [Mass/Vol] 130 mg/dL High 65 - 105 mg/dL [facility] Interpretation and review of laboratory results Abnormal [facility] Glucose [Mass/Vol] 149 mg/dL High 65 - 105 mg/dL [facility] Interpretation and review of laboratory results Abnormal [facility] [id number] 06-17-2022 SARS-CoV-2 (COVID-19) RNA JESS+probe Ql (Unsp spec) Detected Abnormal NOTDET [facility] Comment on above: Result Comment: Rapid NAAT: The specimen is POSITIVE for SARS-Cov-2, the novel coronavirus associated with COVID-19. This test has been authorized by the FDA under an Emergency Use Authorization (EUA) for use by authorized laboratories. The ID NOW COVID-19 assay is designed to detect the virus that causes COVID-19 in patients with signs and symptoms of infection who are suspected of COVID-19. An individual without symptoms of COVID-19 and who is not shedding SARS-CoV-2 virus would expect to have a negative (not detected) result in this assay. Fact sheet for Healthcare Providers: https://www.fda.gov/media/316821/download Fact sheet for Patients: https://www.fda.gov/media/415824/download Methodology: Isothermal Nucleic Acid Amplification Results reported to the appropriate Health Department Performed By: #### C OVRB ####[facility] [place], [place] [id number] Lab Director: Sidney Epps MD Sedimentation Rateon 023 Sedimentation Rate 9 mm/Hr Normal 0-30 [facility] Comment on above: Performed By: #### S ED, BNP, CMPX, CRP, IPF, CDP, C4 #### [facility] [address] [place] [address] Director Of Capital Giving: Sidney Epps MD #### AC1EIN #### [facility] [address] [place], [place] [phone] Director Of Capital Giving: Bob Florence MD ESR (Bld) [Velocity] 9 mm/h [facility] XR CHEST PORTABLEon 06-17-19 23 XR CHEST PORTABLE EXAMINATION: ONE XRAY VIEW OF THE CHEST 06/17/2022 9:07 am COMPARISON: None HISTORY: ORDERING SYSTEM PROVIDED HISTORY: sob. hx of chf TECHNOLOGIST PROVIDED HISTORY: sob. hx of chf Reason for Exam: port upright FINDINGS: Heart size is mildly prominent, likely accentuated by large hiatal hernia. There is no evidence of vascular congestion. Patient is mildly rotated, limiting assessment of mediastinal contours. No focal airspace consolidation, pneumothorax, or pleural effusion. No free air beneath the diaphragm. There is a focal nodular density overlying right upper lung, possibly related to the posterior right 5th rib. No evidence of acute osseous abnormality. IMPRESSION: 1. No acute intrathoracic process. 2. Large hiatal hernia. 3. Nodular density overlying right upper lung, possibly related to the posterior right 5th rib versus parenchymal nodule. Consider CT imaging for further evaluation. Interpreted by: Sweetie Robles DO Signed by: Sweetie Robles DO 06/17/22 Final result Normal [facility] 1. No acute intrathoracic process. 2. Large hiatal hernia. 3. Nodular density overlying right upper lung, possibly related to the posterior right 5th rib versus parenchymal nodule. Consider CT imaging for further evaluation. [facility] EXAMINATION: ONE XRAY VIEW OF THE CHEST 06/17/2022 9:07 am COMPARISON: None HISTORY: ORDERING SYSTEM PROVIDED HISTORY: sob. hx of chf TECHNOLOGIST PROVIDED HISTORY: sob. hx of chf Reason for Exam: port upright FINDINGS: Heart size is mildly prominent, likely accentuated by large hiatal hernia. There is no evidence of vascular congestion. Patient is mildly rotated, limiting assessment of mediastinal contours. No focal airspace consolidation, pneumothorax, or pleural effusion. No free air beneath the diaphragm. There is a focal nodular density overlying right upper lung, possibly related to the posterior right 5th rib. No evidence of acute osseous abnormality. [facility] Sweetie Robles DO - 06/17/2022 EXAMINATION: ONE XRAY VIEW OF THE CHEST 06/17/2022 9:07 am COMPARISON: None HISTORY: ORDERING SYSTEM PROVIDED HISTORY: sob. hx of chf TECHNOLOGIST PROVIDED HISTORY: sob. hx of chf Reason for Exam: port upright FINDINGS: Heart size is mildly prominent, likely accentuated by large hiatal hernia. There is no evidence of vascular congestion. Patient is mildly rotated, limiting assessment of mediastinal contours. No focal airspace consolidation, pneumothorax, or pleural effusion. No free air beneath the diaphragm. There is a focal nodular density overlying right upper lung, possibly related to the posterior right 5th rib. No evidence of acute osseous abnormality. IMPRESSION: 1. No acute intrathoracic process. 2. Large hiatal hernia. 3. Nodular density overlying right upper lung, possibly related to the posterior right 5th rib versus parenchymal nodule. Consider CT imaging for further evaluation. [facility] [employer] Phone: Radiology Study observation (narrative) [facility] Phone: XR CHEST PORTABLEOrdered By: Sweetie Robles on 06-17-2022 [facility] Phone: BNPon 06-16-2022 Natriuretic peptide B (Bld) [Mass/Vol] 535.0 pg/mL Normal <=1,800.0 [facility] Comment on above: Performed By: #### C MADM, CMP, BNP #### [facility] [address] [place] [address] Dr. Carla Little CARDIAC KAPIL ADMITon 023 CK [Catalytic activity/Vol] 60 U/L Normal 26-192 [facility] Comment on above: Performed By: #### C MADM, CMP, BNP #### [facility] [address] [place] [address] Dr. Carla Little CK.MB [Mass/Vol] 1.11 ng/mL Normal <=3.60 [facility] Comment on above: Performed By: #### C MADM, CMP, BNP #### [facility] [address] [place] [address] Dr. Carla Little HSTROP 10.7 pg/mL Normal 4.0-51.[address] [facility] Comment on above: Result Comment: CUT- OFF POINTS HAVE BEEN ESTABLISHED BASED ON THE FOURTH UNIVERSAL DEFINITIONS OF MYOCARDIAL INFARCTION. THE UPPER REFERENCE LIMIT (URL) OF TROPONIN, DEFINED THE 99TH PERCENTILE OF cTnI DISTRIBUTION IN A REFERENCE POPULATION, HAS BEEN CONFIRMED THE DECISION THRESHOLD FOR TX DIAGNOSIS. Performed By: #### C MADM, CMP, BNP #### [facility] [address] [place] [address] Dr. Carla Little HOANG 53 ng/mL Normal 9-[address] [facility] Comment on above: Performed By: #### C MADM, CMP, BNP #### [facility] [address] [place] [address] Dr. Carla Little CBC AUTO DIFFon 06-16-2022 BASO # 0.1 103/ul Normal 0.0-0.1 [facility] Comment on above: Performed By: #### L IPID, CMP #### [facility] [address] [place] [address] Dr. Carla Little Basophils/100 WBC (Bld) 0.6 % Normal 0.2-2.0 [facility] Comment on above: Performed By: #### L IPID, CMP #### [facility] [address] [place] [address] Dr. Carla Little EO # 0.2 103/ul Normal 0.0-0.[address] [facility] Comment on above: Performed By: #### L IPID, CMP #### [facility] [address] [place] [address] Dr. Carla Little Eosinophils/100 WBC (Bld) 1.5 % Normal 0.9-7.0 [facility] Comment on above: Performed By: #### L IPID, CMP #### [facility] [address] [place] [address] Dr. Carla Little Erythrocyte distribution width (RBC) [Ratio] 14.2 % Normal 11.0-15.0 [facility] Comment on above: Performed By: #### L IPID, CMP #### [facility] [address] [place] [address] Dr. Carla Little Hematocrit (Bld) [Volume fraction] 36.9 % Normal 36.0-48.0 [facility] Comment on above: Performed By: #### L IPID, CMP #### [facility] [address] [place] [address] Dr. Carla Little Hemoglobin (Bld) [Mass/Vol] 11.5 g/dL Critically low 12.0-16.0 [facility] Comment on above: Performed By: #### L IPID, CMP #### [facility] [address] [place] [address] Dr. Carla Little IG # 0.11 10e3/ul Critically high 0.00-0.03 [facility] [place] Comment on above: Performed By: #### L IPID, CMP #### [facility] [address] [address] [address] Carla Little IG % 1.0 % Critically high 0.0-0.5 [facility] Comment on above: Performed By: #### L IPID, CMP #### [facility] [address] [address] [address] Carla Little LYMPH # 1.5 103/ul Normal 1.2-3.8 [facility] Comment on above: Performed By: #### L IPID, CMP #### [facility] [address] [address] [address] Carla Little Lymphocytes/100 WBC (Bld) 13.7 % Critically low 20.5-60.0 [facility] Comment on above: Performed By: #### L IPID, CMP #### [facility] [address] [address] [address] Carla Little MANUAL DIFF REQ NO Normal [facility] Comment on above: Performed By: #### L IPID, CMP #### [facility] [address] [address] [address] Carla Little MCH (RBC) [Entitic mass] 29.6 pg Normal 26.7-34.0 [facility] Comment on above: Performed By: #### L IPID, CMP #### [facility] [address] [address] [address] Carla Little MCHC (RBC) [Mass/Vol] 31.2 g/dL Normal 29.9-35.2 [facility] Comment on above: Performed By: #### L IPID, CMP #### [facility] [address] [address] [address] Carla Little MCV (RBC) [Entitic vol] 94.9 fL Normal 81.0-99.0 [facility] Comment on above: Performed By: #### L IPID, CMP #### [facility] [address] [address] [address] Carla Little MONO # 0.9 103/ul Critically high 0.3-0.8 [facility] [place] [facility] Comment on above: Performed By: #### L IPID, CMP #### [facility] [address] [place] [address] Dr. Carla Little Monocytes/100 WBC (Bld) 8.5 % Normal 1.7-12.[address] [facility] Comment on above: Performed By: #### L IPID, CMP #### [facility] [address] [place] [address] Dr. Carla Little NEUT # 8.0 103/ul Critically high 1.4-6.5 [facility] [place] [facility] Comment on above: Performed By: #### L IPID, CMP #### [facility] [address] [place] [address] Dr. Carla Little Neutrophils/100 WBC (Bld) 74.7 % Normal 43.0-75.[address] [facility] Comment on above: Performed By: #### L IPID, CMP #### [facility] [address] [place] [address] Dr. Carla Little Platelet mean volume (Bld) [Entitic vol] 10.1 fL Normal 9.5-13.[address] [facility] Comment on above: Performed By: #### L IPID, CMP #### [facility] [address] [place] [address] Dr. Carla Little PLT 304 103/ul Normal 150-[address] [facility] Comment on above: Performed By: #### L IPID, CMP #### [facility] [address] [place] [address] Dr. Carla Little RBC 3.89 106/ul Critically low 4.20-5.40 [facility] Comment on above: Performed By: #### L IPID, CMP #### [facility] [address] [place] [address] Dr. Carla Little WBC 10.7 103/ul Normal 4.0-11.[address] [facility] Comment on above: Performed By: #### L IPID, CMP #### [facility] [address] [place] [address] Dr. Carla Little PROF 14(COMP METB)on 023 Albumin [Mass/Vol] 3.8 g/dL Normal 3.4-5.0 [facility] Comment on above: Performed By: #### C MADM, CMP, BNP #### [facility] [address] [address] [address] Carla Little Albumin/Globulin [Mass ratio] 1.3 {ratio} Normal [facility] Comment on above: Performed By: #### C MADM, CMP, BNP #### [facility] [address] [address] [address] Carla Little ALP [Catalytic activity/Vol] 176 U/L Critically high 46-116 [facility] Comment on above: Performed By: #### C MADM, CMP, BNP #### [facility] [address] [address] [address] Carla Little ALT [Catalytic activity/Vol] 13 U/L Critically low 14-59 [facility] Comment on above: Performed By: #### C MADM, CMP, BNP #### [facility] [address] [address] [address] Carla Little Anion gap [Moles/Vol] 18.9 mmol/L Normal [facility] Comment on above: Performed By: #### C MADM, CMP, BNP #### [facility] [address] [address] [address] Carla Little AST [Catalytic activity/Vol] 15 U/L Normal 15-37 [facility] Comment on above: Performed By: #### C MADM, CMP, BNP #### [facility] [address] [address] [address] Carla Little Bilirubin [Mass/Vol] 0.3 mg/dL Normal 0.2-1.0 [facility] Comment on above: Performed By: #### C MADM, CMP, BNP #### [facility] [address] [address] [address] Carla Little Calcium [Mass/Vol] 9.1 mg/dL Normal 8.5-10.1 [facility] Comment on above: Performed By: #### C MADM, CMP, BNP #### [facility] [address] [address] [address] Carla Little Chloride [Moles/Vol] 105 mmol/L Normal 98-107 [facility] Comment on above: Performed By: #### C MADM, CMP, BNP #### [facility] [address] [place] [address] Dr. Carla Little CO2 [Moles/Vol] 21.8 mmol/L Normal 21.0-32.0 [facility] Comment on above: Performed By: #### C MADM, CMP, BNP #### [facility] [address] [place] [address] Dr. Carla Little Creatinine [Mass/Vol] 1.54 mg/dL Critically high 0.55-1.02 [facility] Comment on above: Performed By: #### C MADM, CMP, BNP #### [facility] [address] [place] [address] Dr. Carla Little EGFR-AF RUSSIAN 39 mL/min/1.73m2 Critically low >=60 [facility] Comment on above: Performed By: #### C MADM, CMP, BNP #### [facility] [address] [place] [address] Dr. Carla Little EGFR-NON AF RUSSIAN 32 mL/min/1.73m2 Critically low >=60 [facility] Comment on above: Performed By: #### C MADM, CMP, BNP #### [facility] [address] [place] [address] Dr. Carla Little Globulin (S) [Mass/Vol] 3.0 g/dL Normal [facility] Comment on above: Performed By: #### C MADM, CMP, BNP #### [facility] [address] [place] [address] Dr. Carla Little Glucose [Mass/Vol] 117 mg/dL Critically high 74-106 [facility] Comment on above: Performed By: #### C MADM, CMP, BNP #### [facility] [address] [place] [address] Dr. Carla Little Potassium [Moles/Vol] 3.7 mmol/L Normal 3.5-5.[address] [facility] Comment on above: Performed By: #### C ISABEL CMP, BNP #### [facility] [address] [address] [address] Carla Little Protein [Mass/Vol] 6.8 g/dL Normal 6.4-8.2 [facility] Comment on above: Performed By: #### C ISABEL, CMP, BNP #### [facility] [address] [place] [address] Dr. Carla Little Sodium [Moles/Vol] 142 mmol/L Normal 136-145 [facility] Comment on above: Performed By: #### C ISABEL CMP, BNP #### [facility] [address] [place] [address] Dr. Carla Little Urea nitrogen [Mass/Vol] 24.0 mg/dL Critically high 7.0-18.0 [facility] Comment on above: Performed By: #### C ISABEL CMP, BNP #### [facility] [address] [place] [address] Dr. Carla Little Urea nitrogen/Creatinin e [Mass ratio] 15.6 mg/mg Normal [facility] Comment on above: Performed By: #### C ISABEL CMP, BNP #### [facility] [address] [place] [address] Dr. Carla Little PROTIMEon 06-16-2022 INR Coag (PPP) [Relative time] 0.95 {INR} Normal [facility] Comment on above: Performed By: #### L IPID, CMP #### [facility] [address] [place] [address] Dr. Carla Little INR GUIDELINES SEE BELOW Normal [facility] Comment on above: Result Comment: KAREN RED INR: 2.0 - 3.0 CONDITIONS NOT LISTED BELOW 2.5 - 3.5 FOR PROSTHETIC HEART VALVE REPLACEMENT 2.5 - 3.5 RECURRENT THROMBOSIS Performed By: #### L IPID, CMP #### [facility] [address] [place] [address] Dr. Carla Little PT Coag (PPP) [Time] 10.1 s Normal 9.0-11.6 [facility] Comment on above: Performed By: #### L IPID, CMP #### [facility] [address] [place], [place] [address] Dr. Carla Little PTTon 06-16-2022 aPTT Coag (Bld) [Time] 24.2 s Normal 22.3-36.2 [facility] Comment on above: Performed By: #### L IPID, CMP #### [facility] [address] [place], [place] [address] Dr. Carla Little TYPE AND SCREENon 06-16-2022 TYPE AND SCREEN Negative Normal [facility] Comment on above: Performed By: #### L IPID, CMP #### [facility] [address] [place], [place] [address] Dr. Carla Little XR CHEST 1 Von 06-16-2022 XR CHEST 1 V EXAMINATION: XR CHES T 1 V, , 06/16/2022 6:40 PM EST INDICATION: SHORTNESS OF BREATH HISTORY: Ordering Provider Reason for Exam: Technologist Note: Additional: COMPARISON: Chest x-ray dated 06/25/2021. TECHNIQUE: Chest x-ray: One view. FINDINGS: No pneumothorax, pleural effusion or focal airspace consolidation. Heart is normal in size. Bony thorax is unremarkable. Large hiatal hernia is seen. IMPRESSION: No acute cardiopulmonary process. Large hiatal hernia. Electronically authenticated by: BENJAMIN ROGERS Date: 2022-06-16 19:49 Normal [facility] Fdc Recordson 06-10 Fdc Records [id number]#[id number] 0CD:127 Normal [facility] Coding Summary.on 05-27-2022 Coding Summary. CD:[id number] Gh 0bWw+PGhlYWQ+SR0XKEAjV 85jdFFgxR7ZH3yYDD3RYAB WUISVRH5IVY1fhEM9MShrC 2VybiAv XhdqxATpID29HPq2BJV9wE cjAGksfI1kcDKoM8a9GzWd NK74bE45NHqvGERsLvG5Vz ZpbjsgbWFy W5enSbBrxUFqMtq+PHRhYm xlIHdpZHRoPScxMDAlJyBz zDsqPJ7aZb8jZZChSTNsnI xhcHNlOiBj e6jtFJBvQArbZO9dtMjuI9 KfrCY6AKYhp8u6Rf76hUT+ JJSdWWJ9qXbtAZiok238Hj Knl0luLUH5 xYKhSWalXDK5C51tk6X5XH HnEHMlVMB8kQB1zI5abMrw iyeiY3QwpUGbTaK4RAE8oS OzrD1uoQfl ewqpdO9tHjr+O55FGP7VRC VRXJ9QOgx4K1UjCdrimVF+ OQ15RHVkSZ07pREwvUOej1 rjnNv7CnHh LDIyFRX8vOwjJUuhz5HsLM XbI75skMVug0X1OKLikOqy hBPnDoCacPD4sN1oAEmbfv hnx9xjppej Xjunp1nnxq93tP42Q63gKZ rgEBFoUIK9AYFdCTYdfKuf cv4oxE5tLl5+KZkgf0xve3 aqzBq1PxQm IDTxkdTntNcnPQP5t6KeYc 63P3UooXktq2DyAhc6et63 iQMfn0U3kRX6OEqlMVZddW 5wFZddVvB1 OSUrPpTdaT63lKCeBOijHm 7quTedeNfzXS5xYCSudege ATAwlZ2qDKBpwTBspBexAC 4wNTBpbjtm n677KuSdLQK2BTPuoVAqT3 NkkE0vCgIgVJXtVVZyI1Tc eNIyQYtmK273FAhpFfE7DD ZopmCzE9Xb DKFzrEjzQtN9y6Q7Xi3Cg1 MdlvuoFNX9WRgpMZHaQaM9 FuCeBnF6K1LqSvb4MMOogV pyFA1nQ9Wp VAPoenljyqvyhJP2WPPyFT KrxO39pSZaMGrpIh9lx5W3 m229KKCuBAZvtE45Qd8ucV ogMTBwdCBU qR6yqybbm2bcbmyjGoPhYU TnJSg3KYt0MZWkvJdvNfAq UAQ3OgB0GZR2jXHnzW3rjN wypmkneB0y Oyc+S93kyU7qZFS6XSN2zq ykXRAxvyXrWU32OJ09X5Vz PjwvdGFibGU+PGRpdiBzdH igNQ8sYzBr a8avj6CmBIhmW7YrLDNrZV jgRve8ITVaHIQ4sDC7qJ2f OVYfWYhqa9L2hQY7P0Typv Wswa6ey5ug ZLYqOXcwY13fmEArj8S7XA IfxMI6RLBgrRpjGcDviF77 Oyc+LCVwhGpbg3LeMoyen8 vkh5gojTa1 DpPeTOLzqbMdmVeiHUT3u5 GtIw41P45aZYmuTNKaLRZt ESVrPUTapFhkbs2pzB7wMo 8+PGNvbCB3 oMN8mO3lTRGqGhV4OCnhQ0 55BmXcdYZvCianr4fjj3gc cOa9LcUePMRukzEcwSniFK U9x9RqTc54 S43aBHavYWXwAGIbJFRzMW BwiBpqca1lkR7vFn9+PC9j g5nhen87eM00bZL+PHRkIH R5gNcvNQeb YGGggB9uHCzfWuD9DYEbLb UtqD99zBBkIDsoJc6ljLjl iWaeVS5aGWZzvzmhp211Vj Ktb9xzWSXq pRTzYZbrIFQ5K09wn2V2MA EvPRDjRNQ1lKK3nY8aaGiq bjogbGVmdDsgdmVydGljYW pxLTaxP377 IHRvcDsnPlBhdGllbnQgTm NoITm0W2VcLit0WHLgkCct MY6aaLGlLLkpDj6glYletE qhYB8mCQCg wouqq700JnAcb2tbTGQqjV HfNPwrDDS8C93nf6P0JCVg ZBWiFOG9oKN9kC2kaHqdmn ogbGVmdDsg enNmeJwcZMlnYFryT727AB RvcDsnPkJpcnRoIERhdGU6 RZ63KQ00pJTps3S4eSZ4S9 BhZGRpbmct kmlubII7EHGnBCVowS94Bi 5ypFqzRz6wGUYlXMT8EMQc nLTlB5QljD0zIdHrZWBwDO PcI1HmpUXy IRwxY580ZKqvWrN9QOXdnp YnL9HmDJLmtGyuKlV5o5B4 Fu4SI0Z2FD80UN65jWNtx1 O9bHV8X5Xu FAQtaeepjuwznOV6SNAnTD DrhG24Zp6ftMpiWl6uMBBf CSV0PGLyhQOqB5TdjJ1aJz AjMDAwMDAw R8AhqYRwURinQ429LJyvAg W3CAFxiuMcT2EtDAIwmXim CiV7n7P9Eg0YEFd7ZY30PQ 66lDQag9A5 mVH3F5LyYJOuhvxlwycpbA Z8QUWgUHGftC09Sf8uhFxm Fa5gJWPvIMT5HNXuwXKuS9 UqtC2cDnIc PNDeDICtL4AyoHQhLKkzE4 56BRpxPpV4DIOnceFjY6La XBSxqTtaZpW1w8D5Xu3BKM PcTP85XGI8 xAO5VT96EW62I8KvCucnxU FibGU+PHRhYmxlIHdpZHRo RYkdLVOqXrSnvQrsRA4eRg 9yZGVyLWNv zPxeqXYvVmNno9nbYWYoRZ pfFV3rwZomD6WxmAE1BFKk j1v8To10O31gL3FmeAK+PG LmxPD9eKR0 aK9pHfJsWuI6BSgrS055Eg AflTUjAdvfe9kzx7mspNs4 SbI6FHFwbnJzvBkuVFF1j4 EjVa31K18e IHdpZHRoPSIxNSUiIHZhbG fdtf6icF1bSv4+PGNvbCB3 pRD6tO9tJbOpTrK2JApbL6 49InRvcCIv Frfeg6osa8lllQq8MsZyDR HkzoDyzRnjFKI3p3ZeXj05 F8LyiCegc7HxVgt6jb15pG Mwh3I3wEL7 T3QvSJRovyyswQEpiRikXJ 1mEJXtotpiNUMbsJ6dCRGd F6w6FtSzDeH2RIqjD0Kvzp G2EZAibIZx XAluTVE0G24mn8Y4VMYmOX YxCSQ1rXJ4kO4erIwqbocm bGVmdDsgdmVydGljYWwtYW ofI970JDQf lHxaLXFngU2xMKQzmYBomM laZZ0nIEYcfxqwJjLJKRPI CCbdYg8SYH9VAekrPZzsrE Q+PHRkIHN0 jDqzRGbgBWArdQ5hZCHwJ8 l8NnPnTpS8AReoI6EmUFSb bqlaIb25oV4aOgOiGnO3VI kgP9QvarS9 PMAvvKAtZMhiSXN4E71ea8 S2STRlZLKvGEO2aSG9bF2h bGlnbjogbGVmdDsgdmVydG ljYWwtYWxp S779EBDdeHxoSdF3MbJ9Je A1Uee7K4LyXmv7FHOgaKdu JF8nyYCoGSduXa0nvUwaoB wyVG7kIVGc uidyDNXqvB2iVDGsgNDugJ xzVP4iHTHufteyx457UqRu MQS7VSEeuJOwH5UpaG6rHc AjMDAwMDAw H9QkwYPpFCxhP949CUfqRx T3AMTsnmOwO1OjGEPqmJur HvE9s8A0Vq94UZNTFLKxsd wvdGQ+PHRk VTJ0cWjvOJjzNSPadA3tGD QpN8e7MsPjZjX0EZjxR9Xs TPEhkjbrPb27vY6pNhKhDx B9DDpsJ8Ej pvD9NPPhkVDnQUjqUUT9L4 6wl6Z9ZHHsYGMjBGS9yIW9 cP7jfCflntlatFIzeWhyyz VydGljYWwt MTxbA024ZMPptUhgNsCwuV FsZTwvdGQ+HAIaHOT5lYnq UDinXJZifB9mOGRyE6s1Ra MfHsZ5NMng H4LyRQGqxqbwQh12zA1pVa NbAmZ0EVeoX2TzihP1GZWx qCKbZYplAIG4B34iq3I1JA MwMDAwMDA7 jIP1nL9ztYhrtymdwLFjdC qhzlTyxSwtUTtaZAwuA496 YFGtgCphAu00rKTnmSogig L7D3FaHcmm dHI+SX66HBClHY73tTLemF Uqt1baeFf7DtSsQVJoXPU5 dLvbTExlj7NkAFPbS15pgU Xqn5F5QOGe xFcraVQvErIidAV5yZ8sMM oonpvxj6rhjibfEzdkc6ky oj38oA22K59rDQsrFOEaKN IzMCUiIHZh nUteut0krB1pWe2+PGNvbC P5sMT7lV8wEaBcCtL8EIsp S020UsPpcJDsVxkqw4vkv1 ygcVg8JyGs CYZyxpFrbZahALV8i6FyMo 86V72jJSucXTWbOERmNDFa JIXhmSrouo7lgE0dYk5+PC 0kl7ynpi24 xW19lQN+YNEbAUX7iYihVM whOMXgsF5rZInkZuA5HMAn SqOqrL60mEJfUDmoLd8dyI qocJhcVL6a LJWoupcxi454VjYho8fjGT NuvYHgZMnmAGD6I49vc6H5 VTSbFAMoTVF5nCN8nN2nuL lnbjogbGVm dDsgdmVydGljYWwtYWxpZ2 63YQCvjHhmFhQaeCUzX3hj ilDXLQ8pRsyieYX+PHRkIH M2bTrsMTgt YSLlmX9rGIMcP3w9IpEiEv W7DPqeB6JnwhB1CHBqePQu NJVpeNLHuB8ncbeoq9cikq ogIzAwMDAw ZFs7DOk0NNYbtOueAhYwOD T0FsR9FKR0oILkuR5gcVwm tgahsB0kEkb+RklOOjwvdG Q+PHRkIHN0 kGcxSRwaLIWikU3dETShF4 u4YjIjWtY9PZivC6DtkiL3 HCMvnTCqLPQobYHDrS7ghb oyd2kpttob CgCbGBQuNFk3SIl7NSYxfO zdOuAvGMA9AnY5JAE5kWMg bO5doOhwirgwyW0kVuj+TV JOOjwvdGQ+ NTCbTOH1gRhjJTxjSNFgkY 6aXGLzB2l2DiDiEhV2GSea H0FcusY0UNDayIKnDIUgnA ANrQ3vkwag d8urvwdiVpOeMMZpMRv4KV l6GGOfjYnsIsKuDKV6MpN1 RZN6jCRzuM1kkMieosgzqK 9wOyc+UGF5 WOK2QG42QU82B0GcPunvsX FibGU+PHRhYmxlIHdpZHRo RVuvXDPfNoYguDzhWH0yDf 9yZGVyLWNv bGxh (more content not included)... Normal [facility] Fdc Recordson 05-27 Fdc Records [id number]#[id number] 0CD:127 Normal [facility] Physician Orderon 05-20-2022 Physician Order [id number] 0CD:127 Normal [facility] Consent for Treatmenton Consent for Treatment [id number]#1.0 0CD:127 Normal [facility] Heart and Vascular Office/Cl inic Noteon 05-16-2022 Heart and Vascular Office/Clinic Note History of Present Illness Mrs. Molina is a very pleasant 86-year-old nondiabetic, lifelong non-smoker, fairly anxious female, unable to take antianxiety medications as it induces mental status changes, with a long history of hypertension, hypercholesterolemia, peripheral vascular disease status post left-sided carotid endarterectomy in [place], stage III kidney disease, and lower extremity peripheral vascular disease of unknown type. Patient was referred to our office for hypertension. In addition she has a history of CVA, and walks with a cane. Patient was originally referred to us on 10/31/2020 for the management of hypertension. Patient then presented to [facility] with cardiac arrest requiring CPR found to have acute inferior wall ST elevation myocardial infarction with PCI and stenting of the RCA by Dr. Rodríguez on 11/22/2020. At that time she was found to have an untreated lesion in her LAD between 50 and 70% and an EF of 35 to 40%. Left circumflex reportedly was nonobstructive. She then presented to the emergency room on 11/26/2020 at [facility] for chest pain and abnormal troponins. She was treated medically and sent home.. She has not had a stress test to evaluate her LAD territory. She currently lives in a skilled nursing, and really does not get her blood pressure checked very often. She denies any chest pain, angina, shortness of breath. She walks with a 4 pronged cane. At her last visit we ordered an echocardiogram to assess her LV function which took place on 01/16/2022 with the following results: (01/16/2022 13:57 EDT Echo Transthoracic Complete) SUMMARY/CONCLUSION: 1. Normal left ventricular size and function with mild concentric left ventricular hypertrophy. The left ventricular ejection fraction is 65%. 2. Stage 1 diastolic dysfunction. 3. Moderate tricuspid regurgitation with at least mild pulmonary hypertension with a right ventricular systolic pressure of 39 mmHg. 4. In comparison to echocardiogram dated 12/06/2009, no appreciable change is noted. [1] She is now here in follow-up. She walks with a cane, and appears to be legally blind. She still resides at the skilled nursing. Over the last month the patient has had new onset substernal chest pain both with and without exertion, lasting anywhere between 1 minute to several minutes. It is unclear whether this is similar to her previous angina as she had a cardiac arrest at that time. She walks with a cane and is legally blind. She denies any associated shortness of breath. In our office today her blood pressure is initially 124/78 and pulse is 71 and regular.. Her physical exam demonstrates left-sided carotid bruit, otherwise clear carotids. She has regular rate and rhythm, normal S1, S2, no S3 or S4. She has no edema. Her lipids dated 08/02/2020 show an HDL of 47 and LDL of 122. EKG dated shows sinus bradycardia at a rate of 56 bpm, normal axis, normal intervals, no evidence of previous myocardial infarction. Lipids dated 10/25/2020 show an HDL 43 and an LDL of 112. Review of Systems Constitutional: no fever, no chills, no weakness, no fatigue Respiratory: no shortness of breath, no cough, no orthopnea, no wheezing Cardiovascular: no chest pain, no palpitations, no edema Neuro: no dizziness no light headed no syncope Additional ROS info: Except as noted in the above Review of Systems and in the History of Present Illness all other systems have been reviewed and are negative or noncontributory. Physical Exam General: alert, no acute distress Neck: Supple, noJVD nocarotid bruit Cardiovascular: regular rate and rhythm, no murmur normal peripheral perfusion Respiratory: Lungs CTA, respirations non labored Extremities: no edema Neurological: oriented x 4, LOC appropriate for age, sensation equal & normal bilaterally, speech normal Skin: Warm, dry, intact- no rash or concerning lesions Assessment/Plan 1. Coronary artery disease: Patient presents with recurrent anginal symptoms over the last month, both with and without exertion. The patient has known coronary disease and suffered a cardiac arrest requiring emergent angioplasty and stenting to her RCA followed by medical management of a lesion in her LAD. This occurred on 10/31/2020. With her recurrent chest pain, I am concerned about possible in-stent restenosis or deterioration of her LAD stenosis. I recommended that she undergo a Lexiscan/MPI. In the meantime she will continue baby aspirin, amlodipine, Imdur, lisinopril and Lopressor as well as Brilinta. If her stress test is grossly abnormal particularly for anterior ischemia, she may require a repeat diagnostic coronary angiogram. 2. Hyperlipidemia: Recommend pending a fast lipid profile. Continue Lipitor. 3. Return to office with Dr. Contreras in 1 month. 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 Normal [facility] Comment on above: Result Comment: Elec tronically Signed By: Florin HINOJOSA, Juancho Esquivel\.br\Date and Time Signed: 05/16/22 13:42 EST [facility] 05-09 [facility] [id number] 0CD:[id number] Normal [facility] Complete Blood Count Auto Di ffon 11-24-2020 Basophils (Bld) [#/Vol] 0.1 10*3/uL Normal 0.0-0.2 [facility] Comment on above: Result Comment: PERF ORMED BY: [place] [id number] PATHOLOGIST [employer] ANALYST LANDY GONZALEZ M.D. Performed By: #### H S TROP #### [address] Basophils/100 WBC (Bld) 0.5 % Normal . [facility] Comment on above: Performed By: #### H S TROP #### [place] [id number] [place] Eosinophils (Bld) [#/Vol] 0.2 10*3/uL Normal 0.0-0.45 [facility] Comment on above: Performed By: #### H S TROP #### [address] Eosinophils/100 WBC (Bld) 1.5 % Normal . [facility] Comment on above: Performed By: #### H S TROP #### [address] Erythrocyte distribution width (RBC) [Ratio] 19.8 % High 11.9-15.3 [facility] Comment on above: Performed By: #### H S TROP #### [address] Hematocrit (Bld) [Volume fraction] 33.9 % Low 34.0-46.4 [facility] Comment on above: Performed By: #### H S TROP #### [address] Hemoglobin (Bld) [Mass/Vol] 11.0 g/dL Low 11.8-15.4 [facility] Comment on above: Performed By: #### H S TROP #### [address] Lymphocytes (Bld) [#/Vol] 1.1 10*3/uL Normal 1.00-4.8 [facility] Comment on above: Performed By: #### H S TROP #### [address] Lymphocytes/100 WBC (Bld) 6.8 % Normal . [facility] Comment on above: Performed By: #### H S TROP #### [address] MCH (RBC) [Entitic mass] 27.3 pg Normal 24.7-34.3 [facility] Comment on above: Performed By: #### H S TROP #### [address] MCV (RBC) [Entitic vol] 84.3 fL Normal 80-100 [facility] Comment on above: Performed By: #### H S TROP #### [facility] [address] Mean Corpuscular HGB Conc 32.4 g/dL Normal 32.0-35.0 [facility] [facility] Comment on above: Performed By: #### H S TROP #### [facility] [address] [place] [address] [place] Monocytes (Bld) [#/Vol] 1.4 10*3/uL High 0.0-0.8 [facility] Comment on above: Performed By: #### H S TROP #### [facility] [address] Monocytes/100 WBC (Bld) 9.1 % Normal . [facility] Comment on above: Performed By: #### H S TROP #### [facility] [address] [place] [address] [place] Neutrophils (Bld) [#/Vol] 13.1 10*3/uL High 1.8-7.7 [facility] Comment on above: Performed By: #### H S TROP #### [facility] [address] [place] [address] [place] Neutrophils/100 WBC (Bld) 82.1 % Normal . [facility] Comment on above: Performed By: #### H S TROP #### [facility] [address] [place] [address] [place] Nucleated RBC/100 WBC (Bld) [Ratio] 0.0 % Normal 0-0.5 [facility] Comment on above: Performed By: #### H S TROP #### [facility] [address] [place] [address] [place] Platelet mean volume (Bld) [Entitic vol] 7.8 fL Normal 6.3-10.7 [facility] Comment on above: Performed By: #### H S TROP #### [facility] [address] [place] [address] [place] Platelets (Bld) [#/Vol] 193 10*3/uL Normal 150-450 [facility] Comment on above: Performed By: #### H S TROP #### [facility] [address] RBC (Bld) [#/Vol] 4.02 10*6/uL Normal 3.60-5.00 [facility] Comment on above: Performed By: #### H S TROP #### [facility] [address] [place] [id number] [place] WBC (Bld) [#/Vol] 15.9 10*3/uL High 4.5-11.0 [facility] Comment on above: Performed By: #### H S TROP #### [facility] [address] ECG 12 lead ECGon 11-24-2020 ECG 12 lead ECG [facility] Main [facility] [address] [place] [address] Electrocardiograph Report Signed Patient: Piedad Alatorre MR#: [id number] : 1935 Acct:[id number] Age/Sex: 85 / F ADM Date: 11/22/20 Loc: Room: [address] [place] [address] Type: DIS IN Attending Dr: Hemant Rodríguez DO Ordering Provider: Hemant Rodríguez DO Date of Service: 11/24/20 ECG/ECG 12 lead ECG: INF STEMI Copies to: Test Reason : Blood Pressure : / mmHG Vent. Rate : 094 BPM Atrial Rate : 094 BPM P-R Int : 150 ms QRS Dur : 072 ms QT Int : 382 ms P-R-T Axes : 064 027 202 degrees QTc Int : 477 ms Normal sinus rhythm T wave abnormality, consider inferior ischemia T wave abnormality, consider anterolateral ischemia Prolonged QT Abnormal ECG When compared with ECG of 23-NOV-2020 07:52, No significant change was found Confirmed by GILBERT HENRIQUEZ MD ([id number]) on 11/24/2020 6:05:46 PM Referred By: Electronically Signed By:GILBERT HENRIQUEZ MD Transcribed By: MUS Dictated By: Gilbert Henriquez MD 11/24/20 0758 Signed By: 11/24/20 1809 Normal [facility] Basic Metabolic Panelon 11-09 Calcium [Mass/Vol] 8.2 mg/dL Normal 8.2-10.2 [facility] Comment on above: Performed By: #### H S TROP #### [facility] [address] Chloride [Moles/Vol] 101 mmol/L Normal 95-114 [facility] Comment on above: Performed By: #### H S TROP #### [facility] [address] CO2 [Moles/Vol] 21.2 mmol/L Low 22.0-30.0 [facility] Comment on above: Performed By: #### H S TROP #### [address] Creatinine [Mass/Vol] 1.87 mg/dL High 0.44-1.03 [facility] Comment on above: Performed By: #### H S TROP #### [address] Creatinine Clr Calc Pharmacy 19.90 [facility] Comment on above: Result Comment: PERF ORMED BY: [place] [address] PATHOLOGIST ORACLE APPLICATIONS ANALYST LANDY GONZALEZ M.D. Performed By: #### H S TROP #### [address] Estimated GFR ( Lissette 31 [facility] Comment on above: Result Comment: GFR estimated reference range: According to KDOQI guidelines, <60 ml/min/1.73m2 is sufficient to diagnose a patient with chronic kidney disease. Performed By: #### H S TROP #### [facility] [address] [place] [address] [place] Estimated GFR (Non- Am 26 [facility] Comment on above: Performed By: #### H S TROP #### [address] Glucose [Mass/Vol] 111 mg/dL High 70-100 [facility] Comment on above: Result Comment: [place] om Glucose Reference Range is dependent on time and content of last meal. Glucose of more than 200 mg/dL in a nonstressed, ambulatory subject supports the diagnosis of Diabetes Mellitus. ADA recommended reference range Performed By: #### H S TROP #### [address] Potassium [Moles/Vol] 4.4 mmol/L Normal 3.5-5.1 [facility] Comment on above: Performed By: #### H S TROP #### [address] Sodium [Moles/Vol] 136 mmol/L Normal 136-146 [facility] Comment on above: Performed By: #### H S TROP #### [address] Urea nitrogen [Mass/Vol] 36 mg/dL High 9-23 [facility] Comment on above: Performed By: #### H S TROP #### [address] Complete Blood Count Auto Di ffon 11-23-2020 Basophils (Bld) [#/Vol] 0.0 10*3/uL Normal 0.0-0.2 [facility] Comment on above: Result Comment: PERF ORMED BY: [place] [address] PATHOLOGIST ORACLE APPLICATIONS ANALYST LANDY GONZALEZ M.D. Performed By: #### C BC #### [address] Basophils/100 WBC (Bld) 0.2 % Normal . [facility] Comment on above: Performed By: #### C BC #### [place] [address] [place] Eosinophils (Bld) [#/Vol] 0.0 10*3/uL Normal 0.0-0.45 [facility] Comment on above: Performed By: #### C BC #### [address] Eosinophils/100 WBC (Bld) 0.3 % Normal . [facility] Comment on above: Performed By: #### C BC #### [facility] [address] Erythrocyte distribution width (RBC) [Ratio] 20.5 % High 11.9-15.3 [facility] Comment on above: Performed By: #### C BC #### [facility] [address] Hematocrit (Bld) [Volume fraction] 36.1 % Normal 34.0-46.4 [facility] Comment on above: Performed By: #### C BC #### [facility] [address] Hemoglobin (Bld) [Mass/Vol] 11.7 g/dL Low 11.8-15.4 [facility] Comment on above: Performed By: #### C BC #### [address] Lymphocytes (Bld) [#/Vol] 0.8 10*3/uL Low 1.00-4.8 [facility] Comment on above: Performed By: #### C BC #### [place] [address] [place] Lymphocytes/100 WBC (Bld) 5.0 % Normal . [facility] Comment on above: Performed By: #### C BC #### [address] MCH (RBC) [Entitic mass] 27.2 pg Normal 24.7-34.3 [facility] Comment on above: Performed By: #### C BC #### [address] MCV (RBC) [Entitic vol] 84.1 fL Normal 80-100 [facility] Comment on above: Performed By: #### C BC #### [address] Mean Corpuscular HGB Conc 32.4 g/dL Normal 32.0-35.0 [facility] Comment on above: Performed By: #### C BC #### [address] [place] [address] [place] Monocytes (Bld) [#/Vol] 1.2 10*3/uL High 0.0-0.8 [facility] Comment on above: Performed By: #### C BC #### [facility] [address] Monocytes/100 WBC (Bld) 7.1 % Normal . [facility] Comment on above: Performed By: #### C BC #### [address] Neutrophils (Bld) [#/Vol] 14.5 10*3/uL High 1.8-7.7 [facility] Comment on above: Performed By: #### C BC #### [address] Neutrophils/100 WBC (Bld) 87.4 % Normal . [facility] Comment on above: Performed By: #### C BC #### [address] Nucleated RBC/100 WBC (Bld) [Ratio] 0.0 % Normal 0-0.5 [facility] Comment on above: Performed By: #### C BC #### [address] Platelet mean volume (Bld) [Entitic vol] 7.9 fL Normal 6.3-10.7 [facility] Comment on above: Performed By: #### C BC #### [place] [address] [place] Platelets (Bld) [#/Vol] 204 10*3/uL Normal 150-450 [facility] Comment on above: Performed By: #### C BC #### [place] [address] [place] RBC (Bld) [#/Vol] 4.29 10*6/uL Normal 3.60-5.00 [facility] Comment on above: Performed By: #### C BC #### [place] [address] [place] WBC (Bld) [#/Vol] 16.6 10*3/uL High 4.5-11.0 [facility] Comment on above: Performed By: #### C BC #### [place] [id number] [facility] ECG 12 lead ECGon 11-23-2020 ECG 12 lead ECG [facility] [place] [address] Electrocardiograph Report Signed Patient: Piedad Alatorre MR#: [id number] : 1935 Acct:[id number] Age/Sex: 85 / F ADM Date: 11/22/20 Loc: Room: [address] [place] [address] Type: ADM IN Attending Dr: Hemant Rodríguez DO Ordering Provider: Hemnat Rodríguez DO Date of Service: 11/23/20 ECG/ECG 12 lead ECG: INF STEMI Copies to: Test Reason : Blood Pressure : / mmHG Vent. Rate : 098 BPM Atrial Rate : 098 BPM P-R Int : 152 ms QRS Dur : 072 ms QT Int : 406 ms P-R-T Axes : 057 012 196 degrees QTc Int : 518 ms Normal sinus rhythm Prolonged QT Abnormal ECG When compared with ECG of 22-NOV-2020 07:42, T wave inversion more evident in Lateral leads Confirmed by GILBERT HENRIQUEZ MD ([id number]) on 11/23/2020 6:33:14 PM Referred By: Electronically Signed By:GILBERT HENRIQUEZ MD Transcribed By: MUS Dictated By: Gilbert Henriquez MD 11/23/20 0752 Signed By: 11/23/20 1833 Normal [facility] ECH echo transthoracicon ECH echo transthoracic [facility] Main [address] [address] Echocardiogram Signed Patient: Piedad Alatorre MR#: [id number] : 1935 Acct:[id number] Age/Sex: 85 / F ADM Date: 11/22/20 Loc: Room: [address] [place] [address] Type: ADM IN Attending Dr: Hemant Rodríguez DO Ordering Provider: Hemant Rodríguez DO Date of Service: 11/23/20 [facility] echo transthoracic: inf STEMI/VFIB Copies to: DO Hemant Cortez DO Weight: 142 lb Performed By: Shey Bassett RDCS BSA: 1.6 m2 BP: 124/56 mmHg HR: 63 Reason For Study: inf STEMI/VFIB History: HTN, CVA Interpretation Summary Mild concentric left ventricular hypertrophy. Ejection Fraction = 50-55%. There is left ventricular diastolic dysfunction. There is borderline global hypokinesis of the left ventricle. The left atrium appears mildly dilated. There is trace mitral regurgitation. There is trace tricuspid regurgitation. The study was technically difficult. Compared to prior study, there is no significant change. Procedure/Quality: A two-dimensional transthoracic echocardiogram was performed. The study was technically fair in quality. Left Ventricle: Mild concentric left ventricular hypertrophy. Ejection Fraction = 50-55%. There is left ventricular diastolic dysfunction. There is borderline global hypokinesis of the left ventricle. No left ventricular thrombus or mass is seen. Left Atrium: The left atrium appears mildly dilated. Right Atrium: The right atrium appears normal in size. Right Ventricle: The right ventricle is normal in size and function. Aortic Valve: The aortic valve is mildly sclerotic. No hemodynamically significant valvular aortic stenosis. No aortic regurgitation is present. Mitral Valve: The mitral valve is mildly sclerotic. There is mild to moderate mitral annular calcification. There is no mitral valve stenosis. There is trace mitral regurgitation. Tricuspid Valve: The tricuspid valve is normal in structure and function. There is trace tricuspid regurgitation. Pulmonic Valve: The pulmonic valve is not well seen, but is grossly normal. Arteries: The aortic root is normal size. Pericardium/Pleura: No pericardial effusion seen. IVC/Hepatic Viens: The inferior vena cava was not visualized during the exam. Measurements with Normals IVSd: 1.3 cm (0.7-1.1 cm)LVIDd: 2.3 cm (3.7-5.4 cm) LVPWd: 1.3 cm (0.7-1.1 cm)LVIDs: 2.0 cm (2.3-3.6 cm) LA dimension: 1.5 cm(2.3-4.0 cm)Ao root diam: 2.8 cm(2.0-3.2 cm) Doppler with Normals RVSP(TR): 47.8 mmHg (18-35mmHg) LV V1 max: 101.0 cm/sec (0.7-1.7m/s)MV E max mateusz: 69.2 cm/sec(0.8-1.3m/s) MV A max mateusz: 113.2 cm/sec(0.0-0.0m/s) MV E/A: 0.61 (<1.5) MMode/2D Measurements Calculations TAPSE: 1.8 cm FS: 14.1 % Ao root area: LVOT diam: 1.8 cm RV S Mateusz: EDV(Teich): 6.2 cm2 LVOT area: 2.4 cm2 19.6 cm/sec 17.9 ml ESV(Teich): 12.2 ml EF(Teich): 31.9 % __ LVLd ap4: 6.9 cm SV(MOD-sp4): LAV(MOD-sp4): LA A2 area: 17.3 cm2 EDV(MOD-sp4): 28.4 ml 48.0 ml 68.7 ml LAV(MOD-sp2): LA A4 area: 18.5 cm2 LVLs ap4: 6.4 cm 40.7 ml LA length (vol): ESV(MOD-sp4): 5.7 cm 40.3 ml LA vol: 48.1 ml EF(MOD-sp4): 41.3 % LA vol index: 29.2 ml/m2 Doppler Measurements Calculations MV dec time: E/E' lat: 14.8 MV dec slope: Ao V2 max: 0.19 sec E/E' med: 17.7 134.2 cm/sec 363.8 cm/sec2 Ao max P.2 mmHg SHERON(V,D): 1.8 cm2 __ LV V1 max PG: TV max PG: TR max mateusz: 4.1 mmHg 43.0 mmHg 327.1 cm/sec TR max P.8 mmHg RAP systole: 5.0 mmHg Transcribed By: ZAC 11/23/201725 Dictated By: Sergio Wiggins DO 11/23/20 0908 Signed By: 11/23/20 1726 Normal [facility] Glucose Poct Glucometerson 0 11-23-2020 Glucose [Mass/Vol] 126 mg/dL Normal [facility] Comment on above: Result Comment: [place] Glucose Reference Range is dependent on time and content of last meal. Glucose of more than 200 mg/dL in a nonstressed, ambulatory subject supports the diagnosis of Diabetes Mellitus. PERFORMED BY: [place] [address] PATHOLOGIST ORACLE APPLICATIONS ANALYST LANDY GONZALEZ M.D. Performed By: #### G BRAYAN #### Point of Care testing , Troponin I High Sensitivityo n 11-23-2020 Troponin I High Sensitivity 41322 pg/mL Off scale high 0-15 [facility] Comment on above: Result Comment: PERF ORMED BY: [place] [address] PATHOLOGIST ORACLE APPLICATIONS ANALYST LANDY GONZALEZ M.D. Performed By: #### H S TROP #### [address] Basic Metabolic Panelon 11-09 Calcium [Mass/Vol] 8.5 mg/dL Normal 8.2-10.2 [facility] Comment on above: Performed By: #### B MP #### [facility] [address] [place] [address] [place] Chloride [Moles/Vol] 103 mmol/L Normal 95-114 [facility] Comment on above: Performed By: #### B MP #### [place] [address] [place] CO2 [Moles/Vol] 21.0 mmol/L Low 22.0-30.0 [facility] Comment on above: Performed By: #### B MP #### [address] Creatinine [Mass/Vol] 1.47 mg/dL High 0.44-1.03 [facility] Comment on above: Performed By: #### B MP #### [address] Creatinine Clr Calc Pharmacy 25.32 [facility] Comment on above: Result Comment: PERF ORMED BY: [place] [address] PATHOLOGIST ORACLE APPLICATIONS ANALYST LANDY GONZALEZ M.D. Performed By: #### B MP #### [address] Estimated GFR ( Lissette 41 [facility] Comment on above: Result Comment: GFR estimated reference range: According to KDOQI guidelines, <60 ml/min/1.73m2 is sufficient to diagnose a patient with chronic kidney disease. Performed By: #### B MP #### [address] Estimated GFR (Non- Am 34 [facility] Comment on above: Performed By: #### B MP #### [address] Glucose [Mass/Vol] 161 mg/dL High 70-100 [facility] Comment on above: Result Comment: [place] om Glucose Reference Range is dependent on time and content of last meal. Glucose of more than 200 mg/dL in a nonstressed, ambulatory subject supports the diagnosis of Diabetes Mellitus. ADA recommended reference range Performed By: #### B MP #### [place] [address] [place] Potassium [Moles/Vol] 4.9 mmol/L Normal 3.5-5.1 [facility] Comment on above: Performed By: #### B MP #### [address] Sodium [Moles/Vol] 136 mmol/L Normal 136-146 [facility] Comment on above: Performed By: #### B MP #### [address] [place] [address] [place] Urea nitrogen [Mass/Vol] 27 mg/dL High 9-23 [facility] Comment on above: Performed By: #### B MP #### [address] ECG 12 lead ECGon 11-22-2020 ECG 12 lead ECG [facility] Main [facility] [address] [place] [address] Electrocardiograph Report Signed Patient: Piedad Alatorre MR#: [id number] : 1935 Acct:[id number] Age/Sex: 85 / F ADM Date: 11/22/20 Loc: Room: [address] [place] [address] Type: ADM IN Attending Dr: Hemant Rodríguez DO Ordering Provider: Hemant Rodríguez DO Date of Service: 11/22/20 ECG/ECG 12 lead ECG: Post Angioplasty Procedure Copies to: Test Reason : Blood Pressure : / mmHG Vent. Rate : 088 BPM Atrial Rate : 088 BPM P-R Int : 178 ms QRS Dur : 088 ms QT Int : 418 ms P-R-T Axes : 060 027 -61 degrees QTc Int : 505 ms Normal sinus rhythm T wave abnormality, consider inferolateral ischemia Prolonged QT Abnormal ECG No previous ECGs available Confirmed by GILBERT HENRIQUEZ MD ([id number]) on 11/22/2020 2:56:46 PM Referred By: Electronically Signed By:GILBERT HENRIQUEZ MD Transcribed By: MUS Dictated By: Gilbert Henriquez MD 11/22/20 0742 Signed By: 11/22/20 1456 Normal [facility] Glucose Poct Glucometerson 0 11-22-2020 Glucose [Mass/Vol] 118 mg/dL Normal [facility] Comment on above: Result Comment: [facility] Glucose Reference Range is dependent on time and content of last meal. Glucose of more than 200 mg/dL in a nonstressed, ambulatory subject supports the diagnosis of Diabetes Mellitus. PERFORMED BY: [place] [address] PATHOLOGIST ORACLE APPLICATIONS ANALYST LANDY GONZALEZ M.D. Performed By: #### G BRAYAN #### Point of Care testing , Glucose [Mass/Vol] 126 mg/dL Normal [facility] Comment on above: Result Comment: [facility] Glucose Reference Range is dependent on time and content of last meal. Glucose of more than 200 mg/dL in a nonstressed, ambulatory subject supports the diagnosis of Diabetes Mellitus. PERFORMED BY: [place] [address] PATHOLOGIST ORACLE APPLICATIONS ANALYST LANDY GONZALEZ M.D. Performed By: #### G LULS #### Point of Care testing , Troponin I High Sensitivityo n 11-22-2020 Troponin I High Sensitivity 19985 pg/mL Off scale high 0-15 [facility] Comment on above: Result Comment: PERF ORMED BY: [place] [address] PATHOLOGIST ORACLE APPLICATIONS ANALYST LANDY GONZALEZ M.D. Performed By: #### H S TROP #### [facility] [address] [place] [address] [place] Troponin I High Sensitivity 34225 pg/mL Off scale high 0-15 [facility] Comment on above: Result Comment: PERF ORMED BY: [place] [address] PATHOLOGIST ORACLE APPLICATIONS ANALYST LANDY GONZALEZ M.D. Performed By: #### H S TROP #### [facility] [address] [place] [address] [place] Troponin I High Sensitivity 87628 pg/mL Off scale high 0-15 [facility] Comment on above: Result Comment: PERF ORMED BY: [place] [address] PATHOLOGIST ORACLE APPLICATIONS ANALYST LANDY GONZALEZ M.D. Performed By: #### H S TROP #### [facility] [address] [place] [address] [place] Troponin I High Sensitivity 55116 pg/mL Off scale high 0-15 [facility] Comment on above: Result Comment: Resu lts called at 0905 on 11/22/20 PERFORMED BY: [place] [address] PATHOLOGIST ORACLE APPLICATIONS ANALYST LANDY GONZALEZ M.D. Performed By: #### H S [facility] #### [facility] [address] [place] [id number] [facility] Vital Signs Date Time Vital Sign Value Performing Clinician Facility 03-04-2023 13:11-0400 Blood Pressure Location Deonte ROSARIO [facility] 03-04-2023 13:11-0400 Diastolic blood pressure 78 mm[Hg] Deonte ROSARIO [facility] 03-04-2023 13:11-0400 Heart rate 76 /min Deonte ROSARIO [facility] 03-04-2023 13:11-0400 SaO2% (BldA) [Mass fraction] 97 % Deonte ROSARIO [facility] 03-04-2023 13:11-0400 Systolic blood pressure 142 mm[Hg] Deonte ROSARIO [facility] 02-10-2023 14:25-0400 Blood Pressure Location Bloom Sarmini [facility] 02-10-2023 14:25-0400 Diastolic blood pressure 81 mm[Hg] Bloom Sarmini [facility] 02-10-2023 14:25-0400 Heart rate 79 /min Bloom Sarmini [facility] 02-10-2023 14:25-0400 Respiratory rate 22 /min Bloom Sarmini [facility] 02-10-2023 14:25-0400 SaO2% (BldA) [Mass fraction] 97 % Bloom Sarmini [facility] 02-10-2023 14:25-0400 Systolic blood pressure 175 mm[Hg] Bloom Sarmini [facility] 02-10-2023 14:20-0400 Blood Pressure Location Bloom Sarmini [facility] 02-10-2023 14:20-0400 Diastolic blood pressure 84 mm[Hg] Bloom Sarmini [facility] 02-10-2023 14:20-0400 Heart rate 76 /min Bloom Sarmini [facility] 02-10-2023 14:20-0400 Respiratory rate 20 /min Bloom Sarmini [facility] 02-10-2023 14:20-0400 SaO2% (BldA) [Mass fraction] 96 % Bloom Sarmini [facility] 02-10-2023 14:20-0400 Systolic blood pressure 166 mm[Hg] Bloom Sarmini [facility] 02-10-2023 14:15-0400 Blood Pressure Location Bloom Sarmini [facility] 02-10-2023 14:15-0400 Diastolic blood pressure 37 mm[Hg] Bloom Sarmini [facility] 02-10-2023 14:15-0400 Heart rate 77 /min Bloom Sarmini [facility] 02-10-2023 14:15-0400 Respiratory rate 16 /min Bloom Sarmini [facility] 02-10-2023 14:15-0400 SaO2% (BldA) [Mass fraction] 97 % Bloom Sarmini [facility] 02-10-2023 14:15-0400 Systolic blood pressure 153 mm[Hg] Bloom Sarmini [facility] 02-10-2023 14:00-0400 Body temperature 97.7 [degF] Bloom Sarmini [facility] 02-10-2023 13:55-0400 Respiratory rate 16 /min Bloom Sarmini [facility] 02-10-2023 13:50-0400 Respiratory rate 16 /min Bloom Sarmini [facility] 02-10-2023 13:44-0400 Respiratory rate 10 /min Bloom Sarmini [facility] 02-10-2023 13:15-0400 Body temperature 97.52 [degF] Bloom Sarmini [facility] 02-07-2023 12:59-0400 Blood Pressure Location Elvi Lovelace [facility] 02-07-2023 12:59-0400 Body temperature 97.52 [degF] Elvi Mackeyler [facility] 02-07-2023 12:59-0400 Diastolic blood pressure 70 mm[Hg] Elvinemesio Mackeyler [facility] 02-07-2023 12:59-0400 Heart rate 67 /min Elvi Mackeyler [facility] 02-07-2023 12:59-0400 SaO2% (BldA) [Mass fraction] 97 % Elvi Missler [facility] 02-07-2023 12:59-0400 Systolic blood pressure 132 mm[Hg] Elvi Missler [facility] 12-10-2022 10:07-0400 Blood Pressure Location Bloom Sarmini [facility] 12-10-2022 10:07-0400 Diastolic blood pressure 76 mm[Hg] Bloom Sarmini [facility] 12-10-2022 10:07-0400 Heart rate 69 /min Bloom Sarmini [facility] 12-10-2022 10:07-0400 Respiratory rate 16 /min Bloom Sarmini [facility] 12-10-2022 10:07-0400 SaO2% (BldA) [Mass fraction] 99 % Bloom Sarmini [facility] 12-10-2022 10:07-0400 Systolic blood pressure 133 mm[Hg] Bloom Sarmini [facility] 11-22-2022 13:57-0400 Diastolic blood pressure 76 mm[Hg] Deonte ROSARIO [facility] 11-22-2022 13:57-0400 Mean blood pressure 95 mm[Hg] Deonte ROSARIO [facility] 11-22-2022 13:57-0400 Systolic blood pressure 132 mm[Hg] Deonte ROSARIO [facility] 11-22-2022 13:53-0400 Blood Pressure Location Deonte ROSARIO [facility] 11-22-2022 13:53-0400 Body temperature 97.52 [degF] Deonte ROSARIO [facility] 11-22-2022 13:53-0400 Diastolic blood pressure 76 mm[Hg] Deonte ROSARIO [facility] 11-22-2022 13:53-0400 Heart rate 60 /min Deonte ROSARIO [facility] 11-22-2022 13:53-0400 SaO2% (BldA) [Mass fraction] 98 % Deonte ROSARIO [facility] 11-22-2022 13:53-0400 Systolic blood pressure 142 mm[Hg] Deonte ROSARIO [facility] 07-31-2022 13:54-0400 Blood Pressure Location Deonte ROSARIO [facility] 07-31-2022 13:54-0400 Diastolic blood pressure 70 mm[Hg] Deonte ROSARIO [facility] 07-31-2022 13:54-0400 Heart rate 84 /min Deonte ROSARIO [facility] 07-31-2022 13:54-0400 Respiratory rate 18 /min Deonte ROSARIO [facility] 07-31-2022 13:54-0400 SaO2% (BldA) [Mass fraction] 98 % Deonte ROSARIO [facility] 07-31-2022 13:54-0400 Systolic blood pressure 134 mm[Hg] Deonte ROSARIO [facility] 07-31-2022 12:49-0400 Blood Pressure Location Deonte ROSARIO [facility] 07-31-2022 12:49-0400 Body temperature 97.7 [degF] Deonte ROSARIO [facility] 07-31-2022 12:49-0400 Diastolic blood pressure 70 mm[Hg] Deonte PAULO [facility] 07-31-2022 12:49-0400 Heart rate 84 /min Deonte ROSARIO [facility] 07-31-2022 12:49-0400 SaO2% (BldA) [Mass fraction] 98 % Deonte ROSARIO [facility] 07-31-2022 12:49-0400 Systolic blood pressure 134 mm[Hg] Deonte ROSARIO [facility] 06-20-2022 08:00-0500 Body temperature 98.6 [degF] Rod Bhatti MD [facility] 06-20-2022 08:00-0500 Diastolic blood pressure 68 mm[Hg] Rod Bhatti MD [facility] Phone[facility] 06-20-2022 08:00-0500 Heart rate 92 /min Rod hBatti MD [facility] Phone[facility] 06-20-2022 08:00-0500 Respiratory rate 23 /min Rod Bhatti MD Work Phone[facility] 06-20-2022 08:00-0500 SaO2% (BldA) [Mass fraction] 99 % Rod Bhatti MD Work Phone[facility] 06-20-2022 08:00-0500 Systolic blood pressure 139 mm[Hg] Rod Bhatti MD Work Phone[facility] 06-20-2022 06:00-0500 Body mass index (BMI) [Ratio] 23.86 kg/m2 Rod Bhatti MD Work Phone[facility] 06-20-2022 06:00-0500 Body weight 63.05 kg Rod Bhatti MD [facility] Phone[facility] 06-17-2022 08:00-0500 Body height 162.6 cm Rod Bhatti MD Work Phone: [facility] 05-16-2022 13:20-0500 Blood Pressure Location Juancho Contreras [facility] 05-16-2022 13:20-0500 Diastolic blood pressure 78 mm[Hg] Juancho Contreras [facility] 05-16-2022 13:20-0500 Heart rate 71 /min Juancho Contreras [facility] 05-16-2022 13:20-0500 Respiratory rate 18 /min Juancho Contreras [facility] 05-16-2022 13:20-0500 SaO2% (BldA) [Mass fraction] 98 % Juancho Contreras [facility] 05-16-2022 13:20-0500 Systolic blood pressure 124 mm[Hg] Juancho Contreras [facility] 05-01-2022 09:48-0500 Blood Pressure Location Deonte ROSARIO [facility] 05-01-2022 09:48-0500 Body temperature 98.06 [degF] Deonte ROSARIO [facility] 05-01-2022 09:48-0500 Diastolic blood pressure 70 mm[Hg] Deonte ROSARIO [facility] 05-01-2022 09:48-0500 Heart rate 74 /min Deonte ROSARIO [facility] 05-01-2022 09:48-0500 SaO2% (BldA) [Mass fraction] 97 % Deonte ROSARIO [facility] 05-01-2022 09:48-0500 Systolic blood pressure 112 mm[Hg] Deonte ROSARIO [facility] 03-18-2022 10:50-0500 Diastolic blood pressure 68 mm[Hg] Dinero SALAM [facility] 03-18-2022 10:50-0500 Heart rate 91 /min Dinero SALAM [facility] 03-18-2022 10:50-0500 Respiratory rate 20 /min Dinero SALAM [facility] 03-18-2022 10:50-0500 SaO2% (BldA) [Mass fraction] 96 % Dinero SALAM [facility] 03-18-2022 10:50-0500 Systolic blood pressure 160 mm[Hg] Dinero SALAM [facility] 03-18-2022 10:35-0500 Diastolic blood pressure 68 mm[Hg] Dinero SALAM [facility] 03-18-2022 10:35-0500 Heart rate 78 /min Dinero SALAM [facility] 03-18-2022 10:35-0500 Respiratory rate 15 /min Dinero SALAM [facility] 03-18-2022 10:35-0500 SaO2% (BldA) [Mass fraction] 96 % Dinero SALAM [facility] 03-18-2022 10:35-0500 Systolic blood pressure 131 mm[Hg] Dinero SALAM [facility] 03-18-2022 10:30-0500 Diastolic blood pressure 54 mm[Hg] Dinero SALAM [facility] 03-18-2022 10:30-0500 Heart rate 78 /min Dinero SALAM [facility] 03-18-2022 10:30-0500 Respiratory rate 16 /min Dinero SALAM [facility] 03-18-2022 10:30-0500 SaO2% (BldA) [Mass fraction] 97 % Dinero SALAM [facility] 03-18-2022 10:30-0500 Systolic blood pressure 107 mm[Hg] Dinero SALAM [facility] 03-18-2022 10:23-0500 Blood Pressure Location Dinero SALAM [facility] 03-18-2022 10:23-0500 Body temperature 96.8 [degF] Dinero SALAM [facility] 03-18-2022 09:11-0500 Blood Pressure Location Dinero SALAM [facility] 03-18-2022 09:11-0500 Body temperature 98.06 [degF] Dinero SALAM [facility] 03-18-2022 09:11-0500 Respiratory rate 22 /min Dinero SALAM [facility] 01-30-2022 10:52-0400 Blood Pressure Location Dinero SALAM [facility] 01-30-2022 10:52-0400 Diastolic blood pressure 84 mm[Hg] Dinero SALAM [facility] 01-30-2022 10:52-0400 Heart rate 74 /min Dinero SALAM [facility] 01-30-2022 10:52-0400 Respiratory rate 16 /min Dinero SALAM [facility] 01-30-2022 10:52-0400 Systolic blood pressure 138 mm[Hg] Dinero SALAM [facility] 01-22-2022 11:40-0400 Blood Pressure Location Deonte ROSARIO [facility] 01-22-2022 11:40-0400 Body temperature 97.7 [degF] Deonte ROSARIO [facility] 01-22-2022 11:40-0400 Diastolic blood pressure 70 mm[Hg] Deonte ROSARIO [facility] 01-22-2022 11:40-0400 Heart rate 71 /min Deonte ROSARIO [facility] 01-22-2022 11:40-0400 SaO2% (BldA) [Mass fraction] 96 % Deonte ROSARIO [facility] 01-22-2022 11:40-0400 Systolic blood pressure 124 mm[Hg] Deonte ROSARIO [facility] 01-18-2022 13:40-0400 Diastolic blood pressure 74 mm[Hg] Juancho Contreras [facility] 01-18-2022 13:40-0400 Mean blood pressure 100 mm[Hg] Juancho Contreras [facility] 01-18-2022 13:40-0400 Systolic blood pressure 151 mm[Hg] Juancho Contreras [facility] 01-18-2022 13:30-0400 Blood Pressure Location Juancho Contreras [facility] 01-18-2022 13:30-0400 Diastolic blood pressure 74 mm[Hg] Juancho Contreras [facility] 01-18-2022 13:30-0400 Heart rate 87 /min Juancho Contreras [facility] 01-18-2022 13:30-0400 Respiratory rate 18 /min Juancho Contreras [facility] 01-18-2022 13:30-0400 SaO2% (BldA) [Mass fraction] 100 % Juancho Contreras [facility] 01-18-2022 13:30-0400 Systolic blood pressure 156 mm[Hg] Juancho Contreras [facility] 12-28-2021 10:17-0400 Blood Pressure Location Juancho Contreras [facility] 12-28-2021 10:17-0400 Diastolic blood pressure 72 mm[Hg] Juancho Contreras [facility] 12-28-2021 10:17-0400 Heart rate 82 /min Juancho Contreras [facility] 12-28-2021 10:17-0400 Respiratory rate 18 /min Juancho Contreras [facility] 12-28-2021 10:17-0400 SaO2% (BldA) [Mass fraction] 97 % Juancho Contreras [facility] 12-28-2021 10:17-0400 Systolic blood pressure 131 mm[Hg] Juancho Contreras [facility] 11-30-2021 15:10-0400 Diastolic blood pressure 80 mm[Hg] Juancho Contreras [facility] 11-30-2021 15:10-0400 Mean blood pressure 115 mm[Hg] Juancho Contreras [facility] 11-30-2021 15:10-0400 Systolic blood pressure 186 mm[Hg] Juancho Contreras [facility] 11-30-2021 15:00-0400 Blood Pressure Location Juancho Contreras [facility] 11-30-2021 15:00-0400 Diastolic blood pressure 95 mm[Hg] Juancho Contreras [facility] 11-30-2021 15:00-0400 Heart rate 96 /min Juancho Contreras [facility] 11-30-2021 15:00-0400 Respiratory rate 18 /min Juancho Florin [facility] 11-30-2021 15:00-0400 SaO2% (BldA) [Mass fraction] 98 % Juancho Contreras [facility] 11-30-2021 15:00-0400 Systolic blood pressure 195 mm[Hg] Juancho Contreras [facility] 10-17-2021 11:00-0400 Blood Pressure Location Deonte ROSARIO [facility] 10-17-2021 11:00-0400 Body temperature 97.88 [degF] Deonte ROSARIO [facility] 10-17-2021 11:00-0400 Diastolic blood pressure 78 mm[Hg] Deonte ROSARIO [facility] 10-17-2021 11:00-0400 Heart rate 62 /min Deonte ROSARIO [facility] 10-17-2021 11:00-0400 SaO2% (BldA) [Mass fraction] 99 % Deonte ROSRAIO [facility] 10-17-2021 11:00-0400 Systolic blood pressure 122 mm[Hg] Deonte ROSARIO [facility] Encounters Encounter Date Encounter Type Care Provider Facility Start: 04-15-2023 End: 04-16-2023 [facility]:Guillaume leavitt Start: 04-11-2023 End: 04-12-2023 ambulatory Deonte ROSARIO Facility:[facility] Start: 04-11-2023 End: 04-11-2023 Patient encounter procedure Deonte Dyana ROSARIO [facility] Start: 03-04-2023 End: 03-05-2023 ambulatory Deonte ROSARIO Facility:[facility] Start: 03-04-2023 End: 03-04-2023 Patient encounter procedure Deonte ROSARIO [facility] Start: 02-10-2023 End: 02-11-2023 ambulatory Bloom Talal Sarmini Facility:[facility] Start: 02-10-2023 End: 02-10-2023 Patient encounter procedure Bloom Talal Sarmini [facility] Start: 02-07-2023 End: 02-08-2023 ambulatory LICENSED EMBALMER-C Elvimariluz Mackeyjodi Facility:[facility] Start: 02-07-2023 End: 02-07-2023 Patient encounter procedure Elvi Lovelace [facility] Start: 01-15-2023 End: 01-16-2023 ambulatory Bloom Talal Sarmini Facility:[facility] Start: 12-10-2022 End: 12-11-2022 ambulatory Bloom Talal Sarmini Facility:[facility] Start: 12-10-2022 End: 12-10-2022 Patient encounter procedure Bloom Talal Sarmini [facility] Start: 11-22-2022 End: 11-23-2022 ambulatory Deonte ROSARIO Facility:[facility] Start: 11-22-2022 End: 11-22-2022 Patient encounter procedure Deonte ROSARIO [facility] Start: 09-20-2022 End: 09-20-[address] DEONTE ROSARIO Facility:[facility] Start: 07-31-2022 End: 08-01-2022 ambulatory Deonte ROSARIO Facility:[facility] Start: 07-31-2022 End: 07-31-2022 Patient encounter procedure Deonte ROSARIO [facility] Start: 07-31-2022 End: 07-31-2022 Well adult monitoring check done Deonte ROSARIO [facility] Start: 07-08-2022 End: 07-09-2022 ambulatory Mamie SCOTT Facility:[facility] Start: 07-02-2022 ambulatory Deonte ROSARIO Facility: [facility] Start: 06-21-2022 End: 07-04-2022 ambulatory Deonte ROSARIO Facility:[id number] Start: 06-17-2022 End: 06-20-2022 Evaluation and management of inpatient JONG CHAVEZ CHETAN [facility] Start: 06-17-2022 End: 06-20-2022 Evaluation and management of inpatient Rod Bhatti MD Work Phone: [facility] 3- [facility] Start: 06-16-2022 End: 06-17-[address] DEONTE ROSARIO Facility: Start: 05-16-2022 End: 05-17-2022 ambulatory Juancho CONTRERAS Facility:[facility] Start: 05-16-2022 End: 05-16-2022 Patient encounter procedure Juancho Contreras [facility] Start: 05-01-2022 End: 05-01-2022 Patient encounter procedure Deonte ROSARIO [facility] Start: 03-18-2022 End: 03-18-2022 Patient encounter procedure Rosette HARE [facility] Start: 01-30-2022 End: 01-30-2022 Patient encounter procedure Rosette HARE [facility] Start: 01-22-2022 End: 01-22-2022 Patient encounter procedure Deonte ROSARIO [facility] Start: 01-18-2022 End: 01-18-2022 Patient encounter procedure Juancho Contreras [facility] Start: 01-16-2022 End: 01-16-2022 Patient encounter procedure Juancho Contreras [facility] Start: 12-28-2021 End: 12-28-2021 Patient encounter procedure Juancho Contreras [facility] Start: 11-30-2021 End: 11-30-2021 Patient encounter procedure Juancho Contreras [facility] Start: 10-17-2021 End: 10-17-2021 Patient encounter procedure Deonte ROSARIO [facility] Procedures Date Procedure Procedure Detail Performing Clinician Start: 06-20-2022 BASIC METABOLIC PANEL W/ REFLEX TO MG FOR LOW K Abebe Coker MD Work Phone: Start: 06-20-2022 Blood count complete auto&auto difrntl wbc Abebe Coker MD Work Phone: Start: 02-08-2023 Ct thorax w/o contrast material Abebe pineda MD Work Phone: Start: 06-19-2022 Radiologic exam swallow function contrast study Abebe Coker MD Work Phone: Start: 06-19-2022 BASIC METABOLIC PANEL W/ REFLEX TO MG FOR LOW K Abebe Coker MD Work Phone: Start: 06-19-2022 Blood count complete auto&auto difrntl wbc Abebe Coker MD Work Phone: Start: 06-18-2022 VITAMIN B12 & FOLATE Abebe Coker MD Work Phone: Start: 06-18-2022 Assay of ferritin Abebe Coker MD Work Phone: Start: 06-18-2022 BASIC METABOLIC PANEL W/ REFLEX TO MG FOR LOW K Abebe Coker MD Work Phone: Start: 06-18-2022 IMMATURE PLATELET FRACTION Abebe Hernandez Work Phone: Start: 06-17-2022 Glucose blood reagent strip Adrian Rliey MD Work Phone: Start: 06-17-2022 COVID-19, RAPID Abebe Coker MD Work Phone: Start: 06-17-2022 Ecg routine ecg w/least 12 lds trcg only w/o i&r Abebe Coker MD Work Phone: Start: 06-17-2022 Iadna s aureus methicillin resist amp probe tq Joao Todd MD Work Phone: Start: 06-17-2022 Radiologic exam chest single view Abebe Coker MD Work Phone: Start: 06-17-2022 C-reactive protein Abebe Coker MD Work Phone: Start: 06-17-2022 IMMATURE PLATELET FRACTION Abebe Hernandez Work Phone: Start: 06-17-2022 End: 06-17-2022 Natriuretic peptide Abebe Coker MD Work Phone: Start: 03-18-2022 Colonoscopy Rosette HARE Comment on above: Incomplete due to Poor Prep Start: 08-24-2018 Radiofrequency ablation of medial branch of cervical nerve using fluoroscopic guidance Deonte ROSARIO Comment on above: c3/c6 RFA 50% relief to present Start: 05-25-2018 cervical facet Medial Branch Block 2 Deonte ROSARIO Comment on above: bilat C3/4, 4/5, 5/6 facet MBB- 100% rel ief x 2 weeks Start: 05-25-2018 cervical facet Medial Branch Block 3 Rosette HARE Comment on above: bilat C3/4, 4/5, 5/6 facet MBB- 100% rel ief x 2 weeks Start: 04-20-2018 Cervical Facet Medial Branch Block 3 Deonte ROSARIO Comment on above: b/l C3/4, C4/5, C5/6 100 % relief in abhilash n X 1 hour Start: 04-20-2018 Cervical Facet Medial Branch Block 4 Rosette HARE Comment on above: b/l C3/4, C4/5, C5/6 100 % relief in abhilash n X 1 hour Start: 11-24-2017 lumbar facet medial branch block 4 Deonte ROSARIO Comment on above: B/L C3-C6 100% relief 4 days after injec tion that continues Start: 11-24-2017 lumbar facet medial branch block 5 Rosette HARE Comment on above: B/L C3-C6 100% relief 4 days after injec tion that continues Start: 09-29-2017 Radiofrequency ablation of medial branch of lumbar nerve using fluoroscopic guidance Deonte ROSARIO Comment on above: b/l L3/4, :4/5 ,L5/S1 approx 80 % relief in pain after 1 week and still continues today Start: 09-08-2017 Lumbar Facet Medial Branch Block 6 Deonte [employer] Comment on above: b/l L3/4, L4/5, lL5/S1 100 % relief day 1 Start: 09-08-2017 Lumbar Facet Medial Branch Block 7 Rosette HARE Comment on above: b/l L3/4, L4/5, lL5/S1 100 % relief day 1 Start: 06-23-2017 Injection of facet joint using fluoroscopic guidance Deonte ROSARIO Comment on above: b/l L3-S1 at least 80 % improvemnt in pa in immediate Start: 09-09-2014 Angioplasty of blood vessel Deonte ROSARIO Comment on above: right and stent placed Start: 10-10-2010 Colonoscopy Deonte ROSARIO Start: 05-12-1994 Heart Cath. Deonte ROSARIO Angioplasty of left leg artery Deonte ROSARIO Appendectomy Deonte ROSARIO Carotid endarterectomy Deonte ROSARIO Dilation and curettage of uterus Deonte ROSARIO EGD 10 Rosette HARE Comment on above: 10/2010 EGD 9 Deonte ROSARIO Comment on above: 10/2010 Esophagogastroduodenoscopy M sujanice Luciawilliemarzena Comment on above: esophageal dilation , large hiatal herni a , Schatzki ring Excision of bunion Deonte JARQUIN Extraction of cataract Deonte ROSARIO Fluoroscopic angiogr aphy of carotid artery Deonte ROSARIO History of appendectomy Appendec conner( Confirmed ) Deonte ROSARIO kidney artery left stent placement Deonte ROSARIO Removal of ovarian cyst Deonte PAULO Stents, bilateral legs Deonte ROSARIO Plan of Treatment Date Care Activity Detail Author Start: 08-01-2023 ambulatory Ambulatory Facility:[facility] Start: 06-25-2023 ambulatory Ambulatory Facility:[facility] Start: 06-17-2022 Annual Wellness Visi t (AWV) Annual Wellness Visit (AWV) [facility] Start: 07-10-2021 COVID-19 Vaccine (5 - Booster for Pfizer series) COVID-19 Vaccine (5 - Booster for Pfizer series) [facility] Start: 10-06-1991 Screening for osteoporosis DEXA (modify frequency per FRAX score) [facility] Start: 1986 Shingles vaccine (1 of 2) Shingles vaccine (1 of 2) [facility] Start: 10-06-1955 DTaP/Tdap/Td vaccine (1 - Tdap) DTaP/Tdap/Td vaccine (1 - Tdap) [facility] Start: 1948 Depression Screen Depression Screen [facility] Start: 1946 Lipid panel Lipids [employer] End: 06-18-2022 OCCULT BLOOD SCREEN OCCULT BLOOD SCREEN Lab Routine One Time for 1 Occurrences starting 06/18/2022 until 06/18/2022 [employer] Phone: Comment on above: One Time for 1 Occur rences starting 06/18/2022 until 06/18/2022 Oxygen therapy [[facility] Data Set] Initiate Oxygen Therapy Protocol Respiratory Care Routine As Needed until discontinued starting 06/17/2022 [employer] Phone: Comment on above: As Needed until disc ontinued starting 06/17/2022 End: 06-17-2022 Respiratory care evaluation only Respiratory care evaluation only Respiratory Care Routine One Time for 1 Occurrences starting 06/17/2022 until 06/17/2022 [employer] Phone: Comment on above: One Time for 1 Occur rences starting 06/17/2022 until 06/17/2022 End: 06-17-2022 [employer] clinical swallow evaluation [employer] clinical swallow evaluation [employer] Routine One Time for 1 Occurrences starting 06/17/2022 until 06/17/2022 SARAH BETH LEYVA [facility] Work Phone: Comment on above: One Time for 1 Occur rences starting 06/17/2022 until 06/17/2022 Immunizations Immunization Date Immunization Notes Care Provider Nora colinmichelle 04-11-2023 zoster vaccine recombinant Deonte ROSARIO [facility] 03-04-2023 influenza, high dose seasonal, preservative-free Deonet ROSARIO [facility] 02-28-2022 SARS-CoV-2 (COVID-19 ) [id number] Elvi Lovelace [facility] 01-22-2022 influenza, high dose seasonal, preservative-free Deonte ROSARIO [facility] 01-10-2022 influenza virus vacc ine, unspecified formulation Dinero SAL [facility] 05-15-2021 COVID-19, mRNA, LNP- S, PF, 30 mcg/0.3 mL dose Deonte ROSARIO [facility] 03-13-2021 pneumococcal conjuga te vaccine, 13 valent Deonte ROSARIO [facility] 03-13-2021 influenza, high dose seasonal, preservative-free Deonte ROSARIO [facility] 07-12-2020 SARS-CoV-2 (COVID-19 ) mRNA BNT-162b2 vax Deonte PAULO [facility] Comment on above: Result Comment: Huyen sifuentes 06-22-2020 pneumococcal polysaccharide vaccine, 23 valent Deonte ROSRAIO [facility] 06-14-2020 SARS-CoV-2 (COVID-19 ) mRNA BNT-162b2 vax Deonte ROSARIO [facility] Comment on above: Result Comment: Matson evue 05-25-2020 canakinumab Deonte ROSARIO [facility] Comment on above: Result Comment: COVI D 19 PFIZER 05-25-2020 SARS-CoV-2 (COVID-19 ) mRNA BNT-162b2 vax [employer] [facility] Comment on above: Result Comment: 2021: [id number] 03-15-2020 influenza virus vacc ine, unspecified formulation Deonte ROSARIO [facility] 02-10-2020 influenza virus vacc ine, unspecified formulation [employer] [facility] 03-18-2019 influenza virus vacc ine, unspecified formulation [employer] [facility] 03-15-2019 influenza virus vacc ine, live, attenuated, for intranasal use Deonte ROSARIO [facility] 03-10-2018 influenza virus vacc ine, unspecified formulation [employer] [facility] 02-16-2016 influenza virus vacc ine, unspecified formulation [employer] [facility] 02-16-2016 pneumococcal conjuga te vaccine, 13 valent Deonte [employer] [facility] 05-12-2014 pneumococcal conjuga te vaccine, 13 valent Deonte ROSARIO [facility] 01-21-2011 pneumococcal polysaccharide vaccine, 23 valent Deonte ROSARIO [facility] Comment on above: Reason for Medicatio n: Other (see comment) Payers Date Payer Category Payer Unknown [id number] 2021 Medicaid [id number]. [id number] 1959 Medicare [id number] 1936 Unknown [id number] 2.16. [id number] 1936 Unknown [id number] 2.16.84 [id number] 1936 Unknown [id number] 2.16.84 [id number] 1936 Unknown [id number] 2.16.8 40.1.280693.3.579.2.727 1936 Unknown [id number] 2.16.8 40.1.906127.3.579.2.727 1936 Unknown [id number] 2.16.8 40.1.132885.3.579.2.727 1936 Unknown [id number] 2.16.8 40.1.507632.3.579.2.727 1936 Unknown [id number] 2.16.8 40.1.656909.3.579.2.727 1936 Unknown [id number] 2.16.8 40.1.065728.3.579.2.727 1936 Unknown [id number] 2.16.8 40.1.787605.3.579.2.727 1936 Unknown [id number] 2.16.8 40.1.675493.3.579.2.727 1936 Unknown [id number] 2.16.8 40.1.297194.3.579.2.727 1936 Unknown [id number] 2.16.8 40.1.861208.3.579.2.727 1936 Unknown [id number] 2.16.8 40.1.295486.3.579.2.727 1936 Unknown [id number] 2.16.8 40.1.490952.3.579.2.727 1936 Unknown [id number] 2.16.8 40.1.296174.3.579.2.727 1936 Unknown [id number] 2.16.8 [id number] Social History Date Type Detail Facility Start: 07-03-2021 End: 03-04-2023 Tobacco smoking status Never smoked tobacco (finding) [facility] Comment on above: denies use Tobacco smoking status Never [facility] Comment on above: denies use Sex Assigned At Female [facility] Tobacco smoking stat [facility] Tobacco smoking consumption unknown [employer] Work Phone: Start: 1935 Sex Assigned At Not on file [employer] Work Phone: Goals Date Patient Goal Desired Activity /State 05-17-2019 Functional Status Date Assessment Result Facility 03-04-2023 Functional Status N/A [facility] 02-10-2023 Functional Status N/A [facility] 02-07-2023 Functional Status N/A [facility] 12-10-2022 Functional Status N/A [facility] 11-22-2022 Functional Status N/A [facility] 07-31-2022 Functional Status N/A [facility] 07-31-2022 Functional Status [facility] 05-16-2022 Functional Status N/A [facility] 05-01-2022 Functional Status N/A [facility] 03-18-2022 Functional Status N/A [facility] 01-30-2022 Functional Status N/A [facility] 01-22-2022 Functional Status N/A [facility] 01-18-2022 Functional Status N/A [facility] 12-28-2021 Functional Status N/A [facility] 11-30-2021 Functional Status N/A [facility] Clinical Notes 01-05-2020 to 03-04-2023 Telyssa Carrion - 06/19/2022 5:15 PM Jennifer Villar RN - 06/19/2022 12:09 PM Jennifer Villar RN - 06/19/2022 11:30 AM Khoi Cheung PTA - 06/19/2022 9:27 AM ESTLaboratory Note Date & Type Note Facility 03-04-2023 Hospital Discharge instructions Patient Education 03/04/2023 13:26:32 Hypertension, Adult, Vcnj-ws-Mnep Hypertension, Adult Hypertension is another name for high blood pressure. High blood pressure forces your heart to work harder to pump blood. This can cause problems over time. There are two numbers in a blood pressure reading. There is a top number (systolic) over a bottom number (diastolic). It is best to have a blood pressure that is below 120/80. What are the causes? The cause of this condition is not known. Some other conditions can lead to high blood pressure. What increases the risk? Some lifestyle factors can make you more likely to develop high blood pressure: Smoking. Not getting enough exercise or physical activity. Being overweight. Having too much fat, sugar, calories, or salt (sodium) in your diet. Drinking too much alcohol. Other risk factors include: Having any of these conditions: ?Heart disease. ?Diabetes. ? High cholesterol. ?Kidney disease. ?Obstructive sleep apnea. Having a family history of high blood pressure and high cholesterol. Age. The risk increases with age. Stress. What are the signs or symptoms? High blood pressure may not cause symptoms. Very high blood pressure (hypertensive crisis) may cause: Headache. Fast or uneven heartbeats (palpitations). Shortness of breath. Nosebleed. Vomiting or feeling like you may vomit (nauseous). Changes in how you see. Very bad chest pain. Feeling dizzy. Seizures. How is this treated? This condition is treated by making healthy lifestyle changes, such as: ?Eating healthy foods. ?Exercising more. ?Drinking less alcohol. Your doctor may prescribe medicine if lifestyle changes do not help enough and if: ?Your top number is above 130. ?Your bottom number is above 80. Your personal target blood pressure may vary. Follow these instructions at home: Eating and drinking If told, follow the DASH eating plan. To follow this plan: ?Fill one half of your plate at each meal with fruits and vegetables. ?Fill one fourth of your plate at each meal with whole grains. Whole grains include whole-wheat pasta, brown rice, and whole-grain bread. ?Eat or drink low-fat dairy products, such as skim milk or low-fat yogurt. ?Fill one fourth of your plate at each meal with low-fat (lean) proteins. Low-fat proteins include fish, chicken without skin, eggs, beans, and tofu. ?Avoid fatty meat, cured and processed meat, or chicken with skin. ?Avoid pre-made or processed food. Limit the amount of salt in your diet to less than 1,500 mg each day. Do not drink alcohol if: ?Your doctor tells you not to drink. ?You are , may be , or are planning to become . If you drink alcohol: ?Limit how much you have to: ?0 1 drink a day for women. ?0 2 drinks a day for men. ?Know how much alcohol is in your drink. In the [place] one drink equals one 12 oz bottle of beer (355 mL), one 5 oz glass of wine (148 mL), or one 1 oz glass of hard liquor (44 mL). Lifestyle Work with your doctor to stay at a healthy weight or to lose weight. Ask your doctor what the best weight is for you. Get at least 30 minutes of exercise that causes your heart to beat faster (aerobic exercise) most days of the week. This may include walking, swimming, or biking. Get at least 30 minutes of exercise that strengthens your muscles (resistance exercise) at least 3 days a week. This may include lifting weights or doing Pilates. Do not smoke or use any products that contain nicotine or tobacco. If you need help quitting, ask your doctor. Check your blood pressure at home as told by your doctor. Keep all follow-up visits. Medicines Take igyi-blm-ivoxljz and prescription medicines only as told by your doctor. Follow directions carefully. Do not skip doses of blood pressure medicine. The medicine does not work as well if you skip doses. Skipping doses also puts you at risk for problems. Ask your doctor about side effects or reactions to medicines that you should watch for. Contact a doctor if: You think you are having a reaction to the medicine you are taking. You have headaches that keep coming back. You feel dizzy. You have swelling in your ankles. You have trouble with your vision. Get help right away if: You get a very bad headache. You start to feel mixed up (confused). You feel weak or numb. You feel faint. You have very bad pain in your: ?Chest. ?Belly (abdomen). You vomit more than once. You have trouble breathing. These symptoms may be an emergency. Get help right away. Call 911. Do not wait to see if the symptoms will go away. Do not drive yourself to the hospital. Summary Hypertension is another name for high blood pressure. High blood pressure forces your heart to work harder to pump blood. For most people, a normal blood pressure is less than 120/80. Making healthy choices can help lower blood pressure. If your blood pressure does not get lower with healthy choices, you may need to take medicine. This information is not intended to replace advice given to you by your health care provider. Make sure you discuss any questions you have with your health care provider. Document Revised: 02/14/2022 Document Reviewed: 02/14/2022 [employer] Patient Education 2022 [employer]. Follow Up Care 11/22/2022 14:18:32 With:PAULO HINOJOSA, ROCKY Diaz Address: [facility] [address], [place] [address]- When:Within 3 Month(s) [facility] 02-10-2023 Hospital Discharge instructions Patient Education 02/10/2023 14:15:49 Esophageal Dilatation Esophageal Dilatation Esophageal dilatation, also called esophageal dilation, is a procedure to widen or open a blocked or narrowed part of the esophagus. The esophagus is the part of the body that moves food and liquid from the mouth to the stomach. You may need this procedure if: You have a buildup of scar tissue in your esophagus that makes it difficult, painful, or impossible to swallow. This can be caused by gastroesophageal reflux disease (GERD). You have cancer of the esophagus. There is a problem with how food moves through your esophagus. In some cases, you may need this procedure repeated at a later time to dilate the esophagus gradually. Tell a health care provider about: Any allergies you have. All medicines you are taking, including vitamins, herbs, eye drops, creams, and qzdm-fyh-vwhvatd medicines. Any problems you or family members have had with anesthetic medicines. Any blood disorders you have. Any surgeries you have had. Any medical conditions you have. Any antibiotic medicines you are required to take before dental procedures. Whether you are or may be . What are the risks? Generally, this is a safe procedure. However, problems may occur, including: Bleeding due to a tear in the lining of the esophagus. A hole, or perforation, in the esophagus. What happens before the procedure? Ask your health care provider about: ?Changing or stopping your regular medicines. This is especially important if you are taking diabetes medicines or blood thinners. ?Taking medicines such as aspirin and ibuprofen. These medicines can thin your blood. Do not take these medicines unless your health care provider tells you to take them. ?Taking zulp-dtg-exwlkyn medicines, vitamins, herbs, and supplements. Follow instructions from your health care provider about eating or drinking restrictions. Plan to have a responsible adult take you home from the hospital or clinic. Plan to have a responsible adult care for you for the time you are told after you leave the hospital or clinic. This is important. What happens during the procedure? You may be given a medicine to help you relax (sedative). A numbing medicine may be sprayed into the back of your throat, or you may gargle the medicine. Your health care provider may perform the dilatation using various surgical instruments, such as: ?Simple dilators. This instrument is carefully placed in the esophagus to stretch it. ?Guided wire bougies. This involves using an endoscope to insert a wire into the esophagus. A dilator is passed over this wire to enlarge the esophagus. Then the wire is removed. ?Balloon dilators. An endoscope with a small balloon is inserted into the esophagus. The balloon is inflated to stretch the esophagus and open it up. The procedure may vary among health care providers and hospitals. What can I expect after the procedure? Your blood pressure, heart rate, breathing rate, and blood oxygen level will be monitored until you leave the hospital or clinic. Your throat may feel slightly sore and numb. This will get better over time. You will not be allowed to eat or drink until your throat is no longer numb. When you are able to drink, urinate, and sit on the edge of the bed without nausea or dizziness, you may be able to return home. Follow these instructions at home: Take wjsy-obp-yofzocl and prescription medicines only as told by your health care provider. If you were given a sedative during the procedure, it can affect you for several hours. Do not drive or operate machinery until your health care provider says that it is safe. Plan to have a responsible adult care for you for the time you are told. This is important. Follow instructions from your health care provider about any eating or drinking restrictions. Do not use any products that contain nicotine or tobacco, such as cigarettes, e-cigarettes, and chewing tobacco. If you need help quitting, ask your health care provider. Keep all follow-up visits. This is important. Contact a health care provider if: You have a fever. You have pain that is not relieved by medicine. Get help right away if: You have chest pain. You have trouble breathing. You have trouble swallowing. You vomit blood. You have black, tarry, or bloody stools. These symptoms may represent a serious problem that is an emergency. Do not wait to see if the symptoms will go away. Get medical help right away. Call your local emergency services (911 in the [place] Do not drive yourself to the hospital. Summary Esophageal dilatation, also called esophageal dilation, is a procedure to widen or open a blocked or narrowed part of the esophagus. Plan to have a responsible adult take you home from the hospital or clinic. For this procedure, a numbing medicine may be sprayed into the back of your throat, or you may gargle the medicine. Do not drive or operate machinery until your health care provider says that it is safe. This information is not intended to replace advice given to you by your health care provider. Make sure you discuss any questions you have with your health care provider. Document Revised: 09/13/2020 Document Reviewed: 09/13/2020 [employer] Patient Education 2022 [employer]. 02/10/2023 14:15:49 Upper Endoscopy, Adult, Care After Upper Endoscopy, Adult, Care After This sheet gives you information about how to care for yourself after your procedure. Your health care provider may also give you more specific instructions. If you have problems or questions, contact your health care provider. What can I expect after the procedure? After the procedure, it is common to have: A sore throat. Mild stomach pain or discomfort. Bloating. Nausea. Follow these instructions at home: Follow instructions from your health care provider about what to eat or drink after your procedure. Return to your normal activities as told by your health care provider. Ask your health care provider what activities are safe for you. Take uhtq-mqr-ipdlplt and prescription medicines only as told by your health care provider. If you were given a sedative during the procedure, it can affect you for several hours. Do not drive or operate machinery until your health care provider says that it is safe. Keep all follow-up visits as told by your health care provider. This is important. Contact a health care provider if you have: A sore throat that lasts longer than one day. Trouble swallowing. Get help right away if: You vomit blood or your vomit looks like coffee grounds. You have: ?A fever. ?Bloody, black, or tarry stools. ?A severe sore throat or you cannot swallow. ?Difficulty breathing. ?Severe pain in your chest or abdomen. Summary After the procedure, it is common to have a sore throat, mild stomach discomfort, bloating, and nausea. If you were given a sedative during the procedure, it can affect you for several hours. Do not drive or operate machinery until your health care provider says that it is safe. Follow instructions from your health care provider about what to eat or drink after your procedure. Return to your normal activities as told by your health care provider. This information is not intended to replace advice given to you by your health care provider. Make sure you discuss any questions you have with your health care provider. Document Revised: 03/03/2020 Document Reviewed: 09/28/2018 [employer] Patient Education 2022 [employer]. Follow Up Care 01/17/2023 09:40:15 With:Wolf Peres Address: [facility] [place], [address] [address] [phone] Business (1) When: Unknown Comments:Call for any problems. [facility] 02-07-2023 Hospital Discharge instructions Patient Education 02/07/2023 13:23:46 Neuropathic Pain Neuropathic Pain Neuropathic pain is pain caused by damage to the nerves that are responsible for certain sensations in your body (sensory nerves). Neuropathic pain can make you more sensitive to pain. Even a minor sensation can feel very painful. This is usually a long-term (chronic) condition that can be difficult to treat. The type of pain differs from person to person. It may: Start suddenly (acute), or it may develop slowly and become chronic. Come and go as damaged nerves heal, or it may stay at the same level for years. Cause emotional distress, loss of sleep, and a lower quality of life. What are the causes? The most common cause of this condition is diabetes. Many other diseases and conditions can also cause neuropathic pain. Causes of neuropathic pain can be classified as: Toxic. This is caused by medicines and chemicals. The most common causes of toxic neuropathic pain is damage from medicines that kill cancer cells (chemotherapy) or alcohol abuse. Metabolic. This can be caused by: ?Diabetes. ?Lack of vitamins like B12. Traumatic. Any injury that cuts, crushes, or stretches a nerve can cause damage and pain. Compression-related. If a sensory nerve gets trapped or compressed for a long period of time, the blood supply to the nerve can be cut off. Vascular. Many blood vessel diseases can cause neuropathic pain by decreasing blood supply and oxygen to nerves. Autoimmune. This type of pain results from diseases in which the body's defense system (immune system) mistakenly attacks sensory nerves. Examples of autoimmune diseases that can cause neuropathic pain include lupus and multiple sclerosis. Infectious. Many types of viral infections can damage sensory nerves and cause pain. Shingles infection is a common cause of this type of pain. Inherited. Neuropathic pain can be a symptom of many diseases that are passed down through families (genetic). What increases the risk? You are more likely to develop this condition if: You have diabetes. You smoke. You drink too much alcohol. You are taking certain medicines, including chemotherapy or medicines that treat immune system disorders. What are the signs or symptoms? The main symptom is pain. Neuropathic pain is often described as: Burning. Shock-like. Stinging. Hot or cold. Itching. How is this diagnosed? No single test can diagnose neuropathic pain. It is diagnosed based on: A physical exam and your symptoms. Your health care provider will ask you about your pain. You may be asked to use a pain scale to describe how bad your pain is. Tests. These may be done to see if you have a cause and location of any nerve damage. They include: ?Nerve conduction studies and electromyography to test how well nerve signals travel through your nerves and muscles (electrodiagnostic testing). ?Skin biopsy to evaluate for small fiber neuropathy. Imaging studies, such as: ?X-rays. ?CT scan. ?MRI. How is this treated? Treatment for neuropathic pain may [employer]soft [employer] architect time. You may need to try different treatment options or a combination of treatments. Some options include: Treating the underlying cause of the neuropathy, such as diabetes, kidney disease, or vitamin deficiencies. Stopping medicines that can cause neuropathy, such as chemotherapy. Medicine to relieve pain. Medicines may include: ?Prescription or frfb-ngj-whzboqu pain medicine. ?Anti-seizure medicine. ?Antidepressant medicines. ?Pain-relieving patches or creams that are applied to painful areas of skin. ?A medicine to numb the area (local anesthetic), which can be injected as a nerve block. Transcutaneous nerve stimulation. This uses electrical currents to block painful nerve signals. The treatment is painless. Alternative treatments, such as: ?Acupuncture. ?Meditation. ?Massage. ?Occupational or physical therapy. ?Pain management programs. ?Counseling. Follow these instructions at home: Medicines Take kilc-aul-hsepmlo and prescription medicines only as told by your health care provider. Ask your health care provider if the medicine prescribed to you: ?Requires you to avoid driving or using machinery. ?Can cause constipation. You may need to take these actions to prevent or treat constipation: ?Drink enough fluid to keep your urine pale yellow. ?Take pmak-aid-blxengk or prescription medicines. ?Eat foods that are high in fiber, such as beans, whole grains, and fresh fruits and vegetables. ?Limit foods that are high in fat and processed sugars, such as fried or sweet foods. Lifestyle Have a good support system at home. Consider joining a chronic pain support group. Do not use any products that contain nicotine or tobacco. These products include cigarettes, chewing tobacco, and vaping devices, such as e-cigarettes. If you need help quitting, ask your health care provider. Do not drink alcohol. General instructions Learn as much as you can about your condition. Work closely with all your health care providers to find the treatment plan that works best for you. Ask your health care provider what activities are safe for you. Keep all follow-up visits. This is important. Contact a health care provider if: Your pain treatments are not working. You are having side effects from your medicines. You are struggling with tiredness (fatigue), mood changes, depression, or anxiety. Get help right away if: You have thoughts of hurting yourself. Get help right away if you feel like you may hurt yourself or others, or have thoughts about taking your own life. Go to your nearest emergency room or: Call 911. Call the National Suicide Prevention Lifeline at or 554. This is open 24 hours a day. Text the Crisis Text Line at 490467. Summary Neuropathic pain is pain caused by damage to the nerves that are responsible for certain sensations in your body (sensory nerves). Neuropathic pain may come and go as damaged nerves heal, or it may stay at the same level for years. Neuropathic pain is usually a long-term condition that can be difficult to treat. Consider joining a chronic pain support group. This information is not intended to replace advice given to you by your health care provider. Make sure you discuss any questions you have with your health care provider. Document Revised: 12/24/2021 Document Reviewed: 12/24/2021 [employer] Patient Education 2022 [employer] 02/07/2023 13:23:45 Shingles Shingles Shingles, which is also known as herpes zoster, is an infection that causes a painful skin rash and fluid-filled blisters. It is caused by a virus. Shingles only develops in people who: Have had chickenpox. Have been vaccinated against chickenpox. Shingles is rare in this group. What are the causes? Shingles is caused by varicella-zoster virus. This is the same virus that causes chickenpox. After a person is exposed to the virus, it stays in the body in an inactive (dormant) state. Shingles develops if the virus is reactivated. This can happen many years after the first (initial) exposure to the virus. It is not known what causes this virus to be reactivated. What increases the risk? People who have had chickenpox or received the chickenpox vaccine are at risk for shingles. Shingles infection is more common in people who: Are older than 60 years of age. Have a weakened disease-fighting system (immune system), such as people with: ?HIV (human immunodeficiency virus). ?AIDS (acquired immunodeficiency syndrome). ?Cancer. Are taking medicines that weaken the immune system, such as organ transplant medicines. Are experiencing a lot of stress. What are the signs or symptoms? Early symptoms of this condition include itching, tingling, and pain in an area on your skin. Pain may be described as burning, stabbing, or throbbing. A few days or weeks after early symptoms start, a painful red rash appears. The rash is usually on one side of the body and has a band-like or belt-like pattern. The rash eventually turns into fluid-filled blisters that break open, change into scabs, and dry up in about 2 3 weeks. At any time during the infection, you may also develop: A fever. Chills. A headache. Nausea. How is this diagnosed? This condition is diagnosed with a skin exam. Skin or fluid samples (a culture) may be taken from the blisters before a diagnosis is made. How is this treated? The rash may last for several weeks. There is not a specific cure for this condition. Your health care provider may prescribe medicines to help you manage pain, recover more quickly, and avoid long-term problems. Medicines may include: Antiviral medicines. Anti-inflammatory medicines. Pain medicines. Anti-itching medicines (antihistamines). If the area involved is on your face, you may be referred to a specialist, such as an eye doctor (coal and ash supervisor) or an ear, nose, and throat (ENT) doctor (social worker health services) to help you avoid eye problems, chronic pain, or disability. Follow these instructions at home: Medicines Take gqjj-lmm-bgchtqd and prescription medicines only as told by your health care provider. Apply an anti-itch cream or numbing cream to the affected area as told by your health care provider. Relieving itching and discomfort Apply cold, wet cloths (cold compresses) to the area of the rash or blisters as told by your health care provider. Cool baths can be soothing. Try adding baking soda or dry oatmeal to the water to reduce itching. Do not bathe in hot water. Use calamine lotion as recommended by your health care provider. This is an ghoe-awf-izxhuxo lotion that helps to relieve itchiness. Blister and rash care Keep your rash covered with a loose bandage (dressing). Wear loose-fitting clothing to help ease the pain of material rubbing against the rash. Wash your hands with soap and water for at least 20 seconds before and after you change your dressing. If soap and water are not available, use hand laborer rags. Change your dressing as told by your health care provider. Keep your rash and blisters clean by washing the area with mild soap and cool water as told by your health care provider. Check your rash every day for signs of infection. Check for: ?More redness, swelling, or pain. ?Fluid or blood. ?Warmth. ?Pus or a bad smell. Do not scratch your rash or pick at your blisters. To help avoid scratching: ?Keep your fingernails clean and cut short. ?Wear gloves or mittens while you sleep, if scratching is a problem. General instructions Rest as told by your health care provider. Wash your hands often with soap and water for at least 20 seconds. If soap and water are not available, use hand laborer rags. Doing this lowers your chance of getting a bacterial skin infection. Before your blisters change into scabs, your shingles infection can cause chickenpox in people who have never had it or have never been vaccinated against it. To prevent this from happening, avoid contact with other people, especially: ?Babies. ? women. ?Children who have eczema. ?Older people who have transplants. ?People who have chronic illnesses, such as cancer or AIDS. Keep all follow-up visits. This is important. How is this prevented? Getting vaccinated is the best way to prevent shingles and protect against shingles complications. If you have not been vaccinated, talk with your health care provider about getting the vaccine. Where to find more information Centers for Disease Control and Prevention: www.cdc.gov Contact a health care provider if: Your pain is not relieved with prescribed medicines. Your pain does not get better after the rash heals. You have any of these signs of infection: ?More redness, swelling, or pain around the rash. ?Fluid or blood coming from the rash. ?Warmth coming from your rash. ?Pus or a bad smell coming from the rash. ?A fever. Get help right away if: The rash is on your face or nose. You have facial pain, pain around your eye area, or loss of feeling on one side of your face. You have difficulty seeing. You have ear pain or have ringing in your ear. You have a loss of taste. Your condition gets worse. Summary Shingles, also known as herpes zoster, is an infection that causes a painful skin rash and fluid-filled blisters. This condition is diagnosed with a skin exam. Skin or fluid samples (a culture) may be taken from the blisters. Keep your rash covered with a loose bandage (dressing). Wear loose-fitting clothing to help ease the pain of material rubbing against the rash. Before your blisters change into scabs, your shingles infection can cause chickenpox in people who have never had it or have never been vaccinated against it. This information is not intended to replace advice given to you by your health care provider. Make sure you discuss any questions you have with your health care provider. Document Revised: 04/23/2021 Document Reviewed: 04/23/2021 [employer] Patient Education 2022 [employer]. Follow Up Care 01/29/2023 10:14:04 With:Radu FLORES, Elvi Vergara Address: [address] [place], [place] [address], [facility] [place] [address]- When: only if needed [facility] 11-22-2022 Hospital Discharge instructions Patient Education 11/22/2022 14:06:05 Hypertension, Adult, Sbcb-ft-Lhas Hypertension, Adult Hypertension is another name for high blood pressure. High blood pressure forces your heart to work harder to pump blood. This can cause problems over time. There are two numbers in a blood pressure reading. There is a top number (systolic) over a bottom number (diastolic). It is best to have a blood pressure that is below 120/80. What are the causes? The cause of this condition is not known. Some other conditions can lead to high blood pressure. What increases the risk? Some lifestyle factors can make you more likely to develop high blood pressure: Smoking. Not getting enough exercise or physical activity. Being overweight. Having too much fat, sugar, calories, or salt (sodium) in your diet. Drinking too much alcohol. Other risk factors include: Having any of these conditions: ?Heart disease. ?Diabetes. ? High cholesterol. ?Kidney disease. ?Obstructive sleep apnea. Having a family history of high blood pressure and high cholesterol. Age. The risk increases with age. Stress. What are the signs or symptoms? High blood pressure may not cause symptoms. Very high blood pressure (hypertensive crisis) may cause: Headache. Fast or uneven heartbeats (palpitations). Shortness of breath. Nosebleed. Vomiting or feeling like you may vomit (nauseous). Changes in how you see. Very bad chest pain. Feeling dizzy. Seizures. How is this treated? This condition is treated by making healthy lifestyle changes, such as: ?Eating healthy foods. ?Exercising more. ?Drinking less alcohol. Your doctor may prescribe medicine if lifestyle changes do not help enough and if: ?Your top number is above 130. ?Your bottom number is above 80. Your personal target blood pressure may vary. Follow these instructions at home: Eating and drinking If told, follow the DASH eating plan. To follow this plan: ?Fill one half of your plate at each meal with fruits and vegetables. ?Fill one fourth of your plate at each meal with whole grains. Whole grains include whole-wheat pasta, brown rice, and whole-grain bread. ?Eat or drink low-fat dairy products, such as skim milk or low-fat yogurt. ?Fill one fourth of your plate at each meal with low-fat (lean) proteins. Low-fat proteins include fish, chicken without skin, eggs, beans, and tofu. ?Avoid fatty meat, cured and processed meat, or chicken with skin. ?Avoid pre-made or processed food. Limit the amount of salt in your diet to less than 1,500 mg each day. Do not drink alcohol if: ?Your doctor tells you not to drink. ?You are , may be , or are planning to become . If you drink alcohol: ?Limit how much you have to: ?0 1 drink a day for women. ?0 2 drinks a day for men. ?Know how much alcohol is in your drink. In the [place] one drink equals one 12 oz bottle of beer (355 mL), one 5 oz glass of wine (148 mL), or one 1 oz glass of hard liquor (44 mL). Lifestyle Work with your doctor to stay at a healthy weight or to lose weight. Ask your doctor what the best weight is for you. Get at least 30 minutes of exercise that causes your heart to beat faster (aerobic exercise) most days of the week. This may include walking, swimming, or biking. Get at least 30 minutes of exercise that strengthens your muscles (resistance exercise) at least 3 days a week. This may include lifting weights or doing Pilates. Do not smoke or use any products that contain nicotine or tobacco. If you need help quitting, ask your doctor. Check your blood pressure at home as told by your doctor. Keep all follow-up visits. Medicines Take goia-cmy-zpqporu and prescription medicines only as told by your doctor. Follow directions carefully. Do not skip doses of blood pressure medicine. The medicine does not work as well if you skip doses. Skipping doses also puts you at risk for problems. Ask your doctor about side effects or reactions to medicines that you should watch for. Contact a doctor if: You think you are having a reaction to the medicine you are taking. You have headaches that keep coming back. You feel dizzy. You have swelling in your ankles. You have trouble with your vision. Get help right away if: You get a very bad headache. You start to feel mixed up (confused). You feel weak or numb. You feel faint. You have very bad pain in your: ?Chest. ?Belly (abdomen). You vomit more than once. You have trouble breathing. These symptoms may be an emergency. Get help right away. Call 911. Do not wait to see if the symptoms will go away. Do not drive yourself to the hospital. Summary Hypertension is another name for high blood pressure. High blood pressure forces your heart to work harder to pump blood. For most people, a normal blood pressure is less than 120/80. Making healthy choices can help lower blood pressure. If your blood pressure does not get lower with healthy choices, you may need to take medicine. This information is not intended to replace advice given to you by your health care provider. Make sure you discuss any questions you have with your health care provider. Document Revised: 02/14/2022 Document Reviewed: 02/14/2022 [employer] Patient Education 2022 [employer]. Follow Up Care 07/31/2022 14:36:54 With:PAULO HINOJOSA, Deonte Turpin, MED Address: [facility] [address] [place] [address] [place], [facility] [place] [address]- When:Within 3 Month(s) [facility] 07-31-2022 Hospital Discharge instructions Patient Education 07/31/2022 15:14:09 Glaucoma Glaucoma Glaucoma is a condition that is caused by high pressure inside the eye. The pressure in the eye is raised because fluid (aqueous humor) within the eye cannot get out through the normal drainage system. The increased pressure can cause damage to the nerves of the eye, and that can result in loss of vision. It is important to diagnose glaucoma early before damage occurs. Early treatment can often prevent vision loss. There are two main types of glaucoma: Open-angle glaucoma. This is a long-term (chronic) condition that causes the pressure inside the eye to rise slowly. This is the most common type of glaucoma. In many cases, it does not cause symptoms until later in the disease. Acute angle-closure glaucoma. With this type, the pressure inside the eye rises suddenly to a very high level. This causes severe pain and requires treatment right away. What are the causes? In many cases, the cause of this condition is not known. Glaucoma can sometimes result from other diseases, such as infection, cataracts, or tumors. What increases the risk? The following factors may make you more likely to develop this condition: Being older than age 40. Being of -Indian descent. Having high blood pressure or diabetes. Having a family history of glaucoma. Having a previous eye injury or eye surgery. Being farsighted. Using certain medicines that increase pressure in the eyes or cause the pupils to widen (dilate). What are the signs or symptoms? Open-angle glaucoma often causes no symptoms early on. If it is not treated, the condition will get worse and may cause a loss of side vision (peripheral vision). This can advance to tunnel vision, which means that you are able to see straight ahead but you have a loss of peripheral vision in all directions. Eventually, total loss of vision can occur. Symptoms of acute angle-closure glaucoma develop suddenly and may include: Cloudy vision. Severe pain in your affected eye. Severe headache in the area around your eye. Feeling nauseous. Vomiting. How is this diagnosed? This condition is diagnosed through an eye exam by an flow specialist (coal and ash supervisor). This specialist will: Perform a test to measure the pressure in your eye (tonometry). Do eye tests to check your vision, especially your peripheral vision. Use various instruments to look inside your eye and check for damage to the nerves. Because glaucoma often does not cause symptoms until late in the disease, it is often found during a routine eye exam. Be sure to have your eyes checked regularly. How is this treated? Early treatment is important to prevent vision loss. Treatment will focus on lowering the pressure in your eyes. This usually involves using medicines in the form of eye drops. The type of medicine will depend on how bad the disease is and the degree of damage. Laser treatments or other types of surgery may be needed in some cases. Acute angle-closure glaucoma requires emergency treatment to help prevent vision loss. This treatment may involve eye drops and medicines that are given in pill form or through an IV. Surgery is often done after the pressure has been lowered with medicine. Follow these instructions at home: Take ubri-qlb-wbxfcfc and prescription medicines only as told by your health care provider. ?If you were given eye drops, use them exactly as instructed. It is likely that you will need to use this medicine for the rest of your life. Get regular exercise, but talk with your health care provider about which types of exercise are safe for you. You may need to avoid yoga or other types of exercise that may involve standing on your head. Keep all follow-up visits as told by your health care provider. This is important. Contact a health care provider if: You have new or worsening symptoms. Get help right away if: You have severe pain in your affected eye. You have problems with your vision. You have a bad headache in the area around your eye. You develop nausea and vomiting. The same or similar symptoms develop in your other eye. Summary Glaucoma is a condition that is caused by high pressure inside the eye. The increased pressure can cause damage to the nerves of the eye, and that can result in loss of vision. It is important to diagnose glaucoma early before damage occurs. Early treatment can often prevent vision loss. Open-angle glaucoma often causes no symptoms early on. If it is not treated, the condition will get worse and may cause a loss of vision. Because glaucoma often does not cause symptoms until late in the disease, it is often found during a routine eye exam. Be sure to have your eyes checked regularly. This information is not intended to replace advice given to you by your health care provider. Make sure you discuss any questions you have with your health care provider. Document Released: 04/28/2006 Document Revised: 04/10/2018 Document Reviewed: 12/25/2017 [employer] Patient Education 2020 [employer] 07/31/2022 15:14:02 BMI for Adults BMI for Adults Body mass index (BMI) is a number that is calculated from a person's weight and height. BMI may help to estimate how much of a person's weight is composed of fat. BMI can help identify those who may be at higher risk for certain medical problems. How is BMI used with adults? BMI is used as a screening tool to identify possible weight problems. It is used to check whether a person is obese, overweight, healthy weight, or underweight. How is BMI calculated? BMI measures your weight and compares it to your height. This can be done either in [place] ([place] or metric measurements. Note that charts are available to help you find your BMI quickly and easily without having to do these calculations yourself. To calculate your BMI in [place] ([place] measurements, your health care provider will: 1.Measure your weight in pounds (lb). 2.Multiply the number of pounds by 703. For example, for a person who weighs 180 lb, multiply that number by 703, which equals 126,540. 3.Measure your height in inches (in). Then multiply that number by itself to get a measurement called inches squared. For example, for a person who is 70 in tall, the inches squared measurement is 70 in x 70 in, which equals 4900 inches squared. 4.Divide the total from Step 2 (number of lb x 703) by the total from Step 3 (inches squared): 126,540 4900 = 25.8. This is your BMI. To calculate your BMI in metric measurements, your health care provider will: 1.Measure your weight in kilograms (kg). 2.Measure your height in meters (m). Then multiply that number by itself to get a measurement called meters squared. For example, for a person who is 1.75 m tall, the meters squared measurement is 1.75 m x 1.75 m, which is equal to 3.1 meters squared. 3.Divide the number of kilograms (your weight) by the meters squared number. In this example: 70 3.1 = 22.6. This is your BMI. How is BMI interpreted? To interpret your results, your health care provider will use BMI charts to identify whether you are underweight, normal weight, overweight, or obese. The following guidelines will be used: Underweight: BMI less than 18.5. Normal weight: BMI between 18.5 and 24.9. Overweight: BMI between 25 and 29.9. Obese: BMI of 30 and above. Please note: Weight includes both fat and muscle, so someone with a muscular build, such as an athlete, may have a BMI that is higher than 24.9. In cases like these, BMI is not an accurate measure of body fat. To determine if excess body fat is the cause of a BMI of 25 or higher, further assessments may need to be done by a health care provider. BMI is usually interpreted in the same way for men and women. Why is BMI a useful tool? BMI is useful in two ways: Identifying a weight problem that may be related to a medical condition, or that may increase the risk for medical problems. Promoting lifestyle and diet changes in order to reach a healthy weight. Summary Body mass index (BMI) is a number that is calculated from a person's weight and height. BMI may help to estimate how much of a person's weight is composed of fat. BMI can help identify those who may be at higher risk for certain medical problems. BMI can be measured using Polish measurements or metric measurements. To interpret your results, your health care provider will use BMI charts to identify whether you are underweight, normal weight, overweight, or obese. This information is not intended to replace advice given to you by your health care provider. Make sure you discuss any questions you have with your health care provider. Document Released: 01/07/2005 Document Revised: 04/10/2018 Document Reviewed: 03/11/2018 [employer] Patient Education 2020 [employer]. 07/31/2022 14:32:07 Hypertension, Adult, Xmbr-ti-Khvi Hypertension, Adult Hypertension is another name for high blood pressure. High blood pressure forces your heart to work harder to pump blood. This can cause problems over time. There are two numbers in a blood pressure reading. There is a top number (systolic) over a bottom number (diastolic). It is best to have a blood pressure that is below 120/80. Healthy choices can help lower your blood pressure, or you may need medicine to help lower it. What are the causes? The cause of this condition is not known. Some conditions may be related to high blood pressure. What increases the risk? Smoking. Having type 2 diabetes mellitus, high cholesterol, or both. Not getting enough exercise or physical activity. Being overweight. Having too much fat, sugar, calories, or salt (sodium) in your diet. Drinking too much alcohol. Having long-term (chronic) kidney disease. Having a family history of high blood pressure. Age. Risk increases with age. Race. You may be at higher risk if you are . Gender. Men are at higher risk than women before age 45. After age 65, women are at higher risk than men. Having obstructive sleep apnea. Stress. What are the signs or symptoms? High blood pressure may not cause symptoms. Very high blood pressure (hypertensive crisis) may cause: ?Headache. ?Feelings of worry or nervousness (anxiety). ?Shortness of breath. ?Nosebleed. ?A feeling of being sick to your stomach (nausea). ?Throwing up (vomiting). ?Changes in how you see. ?Very bad chest pain. ?Seizures. How is this treated? This condition is treated by making healthy lifestyle changes, such as: ?Eating healthy foods. ?Exercising more. ?Drinking less alcohol. Your health care provider may prescribe medicine if lifestyle changes are not enough to get your blood pressure under control, and if: ?Your top number is above 130. ?Your bottom number is above 80. Your personal target blood pressure may vary. Follow these instructions at home: Eating and drinking If told, follow the DASH eating plan. To follow this plan: ?Fill one half of your plate at each meal with fruits and vegetables. ?Fill one fourth of your plate at each meal with whole grains. Whole grains include whole-wheat pasta, brown rice, and whole-grain bread. ?Eat or drink low-fat dairy products, such as skim milk or low-fat yogurt. ?Fill one fourth of your plate at each meal with low-fat (lean) proteins. Low-fat proteins include fish, chicken without skin, eggs, beans, and tofu. ?Avoid fatty meat, cured and processed meat, or chicken with skin. ?Avoid pre-made or processed food. Eat less than 1,500 mg of salt each day. Do not drink alcohol if: ?Your doctor tells you not to drink. ?You are , may be , or are planning to become . If you drink alcohol: ?Limit how much you use to: ?0 1 drink a day for women. ?0 2 drinks a day for men. ?Be aware of how much alcohol is in your drink. In the [place] one drink equals one 12 oz bottle of beer (355 mL), one 5 oz glass of wine (148 mL), or one 1 oz glass of hard liquor (44 mL). Lifestyle Work with your doctor to stay at a healthy weight or to lose weight. Ask your doctor what the best weight is for you. Get at least 30 minutes of exercise most days of the week. This may include walking, swimming, or biking. Get at least 30 minutes of exercise that strengthens your muscles (resistance exercise) at least 3 days a week. This may include lifting weights or doing Pilates. Do not use any products that contain nicotine or tobacco, such as cigarettes, e-cigarettes, and chewing tobacco. If you need help quitting, ask your doctor. Check your blood pressure at home as told by your doctor. Keep all follow-up visits as told by your doctor. This is important. Medicines Take scsz-dpp-ogbzwve and prescription medicines only as told by your doctor. Follow directions carefully. Do not skip doses of blood pressure medicine. The medicine does not work as well if you skip doses. Skipping doses also puts you at risk for problems. Ask your doctor about side effects or reactions to medicines that you should watch for. Contact a doctor if you: Think you are having a reaction to the medicine you are taking. Have headaches that keep coming back (recurring). Feel dizzy. Have swelling in your ankles. Have trouble with your vision. Get help right away if you: Get a very bad headache. Start to feel mixed up (confused). Feel weak or numb. Feel faint. Have very bad pain in your: ?Chest. ?Belly (abdomen). Throw up more than once. Have trouble breathing. Summary Hypertension is another name for high blood pressure. High blood pressure forces your heart to work harder to pump blood. For most people, a normal blood pressure is less than 120/80. Making healthy choices can help lower blood pressure. If your blood pressure does not get lower with healthy choices, you may need to take medicine. This information is not intended to replace advice given to you by your health care provider. Make sure you discuss any questions you have with your health care provider. Document Released: 10/14/2008 Document Revised: 01/06/2019 Document Reviewed: 01/06/2019 [employer] Patient Education 2020 [employer]. Follow Up Care 05/01/2022 10:10:07 With:PAULO HINOJOSA, ROCKY Diaz Address: [address] [place] [address]- When:Within 3 Month(s) [facility] 06-22-2022 Note [id number] [facility] 06-19-2022 History of Present illness Narrative CLINICAL PHARMACY NOTE: MEDS TO BEDS Total # of Prescriptions Filled: 2 The following medications were delivered to the patient: Carvedilol prednisone Additional Documentation: Patient back to room from barium swallow test. Patient to barium swallow test with transport. Physical Therapy Facility/Department: [facility] SYSTEMS [facility]- [facility] Physical Therapy Daily treatment note Name: Piedad Alatorre : 1935 Date of Service: 06/19/2022 Discharge Recommendations: Patient would benefit from continued therapy after discharge PT Equipment Recommendations Equipment Needed: No Patient Diagnosis(es): There were no encounter diagnoses. Past Medical History: has no past medical history on file. Past Surgical History: has no past surgical history on file. Assessment Body Structures, Functions, Activity Limitations Requiring Skilled Therapeutic Intervention: Decreased functional mobility ;Decreased endurance;Decreased balance;Decreased strength Assessment: Pt with mobility deficits requiring CGA to ambulate 50 feet with no device with fair stability. Pt most limited this date secondary to mild endurance and BLE strength deficits. Pt would benefit from additional PT upon discharge to address strength and endurance deficits. Pt is expected to be safe to return to prior living arrangements upon discharge based on today's session. Therapy Prognosis: Good Decision Making: Low Complexity Requires PT Follow-Up: Yes Activity Tolerance Activity Tolerance: Patient tolerated treatment well Plan Physcial Therapy Plan General Plan: (5-6x week) Current Treatment Recommendations: Strengthening, Balance training, Functional mobility training, Transfer training, Gait training, Therapeutic activities, Home exercise program, Safety education & training, Patient/Caregiver education & training, Endurance training Safety Devices Type of Devices: Call light within reach, Left in chair, Nurse notified, Gait belt Restraints Restraints Initially in Place: No Restrictions Restrictions/Precautions Restrictions/Precautions: Up as Tolerated, Isolation (droplet, COVID +) Required Braces or Orthoses?: No Subjective General Chart Reviewed: Yes Patient assessed for rehabilitation services?: Yes Response To Previous Treatment: Patient with no complaints from previous session. Family / Caregiver Present: No Follows Commands: Within Functional Limits General Comment Comments: Pt retired to chair, given callight Subjective Subjective: Pt supine in bed and agreeable to therapy, RN agreeable to therapy. Pt very pleasant and cooperative throughout. Pt denies pain at rest. Cognition Orientation Overall Orientation Status: Within Normal Limits Orientation Level: Oriented X4 Cognition Overall Cognitive Status: WFL Bed mobility Supine to Sit: Stand by assistance Sit to Supine: (pt retired up to a chair at the conclusion of today's session) Scooting: Stand by assistance Bed Mobility Comments: HOB elevated ~35 degrees without use of handrails. Transfers Sit to Stand: Stand by assistance Stand to Sit: Stand by assistance Comment: Transfers performed 4x this date. Ambulation Surface: Level tile Device: No Device Assistance: Contact guard assistance Quality of Gait: fair stability, mildly increased trunk sway, no LOB. Distance: 50 ft More Ambulation?: No Stairs/Curb Stairs?: No Balance Posture: Fair Sitting - Static: Good Sitting - Dynamic: Good;- Standing - Static: Fair;+ Standing - Dynamic: Fair Comments: standing balance assessed while using no device. Exercise Treatment: Seated LE exercise program: Long Arc Quads, hip abduction/adduction, heel/toe raises, and marches. Reps: 15-20 Dynamic Standing Balance Exercises: Pt stood at sink, washed face brushed teeth without AD, Unilateral to no UE assist, no LOB x5 AM-PAC Score AM-[facility] Inpatient Mobility Raw Score : 20 (06/19/22926) AM-[facility] Inpatient T-Scale Score : 47.67 (06/19/22926) Mobility Inpatient CMS 0-100% Score: 35.83 (06/19/22926) Mobility Inpatient CMS G-Code Modifier : CJ (06/19/22926) Goals Short Term Goals Time Frame for Short Term Goals: 14 visits Short Term Goal 1: Pt will ambulate 225 feet with no device and supervision. Short Term Goal 2: Pt will perform sit<>stand transfer independently. Short Term Goal 3: Pt will demonstrate good- standing balance to decrease fall risk. Short Term Goal 4: Pt will tolerate a 35 minute therapy session to promote increased endurance. Education Patient Education Education Given To: Patient Education Provided: Role of Therapy;Plan of Care Education Method: Verbal Barriers to Learning: None Education Outcome: Verbalized understanding Therapy Time Individual Concurrent Group Co-treatment Time In 902 Time Out 926 Minutes 24 Timed Code Treatment Minutes: 24 Minutes Mary Grace Cheung PTA Critical Care Team - Daily Progress Note Date and time: 06/19/2022 7:51 AM Patient's name: Piedad Alatorre Patient's account/billing number: [id number] Patient's Date of : 1935 Age: 86 y.o. Date of Admission: 06/17/2022 6:36 AM Length of stay during current admission: 2 Primary Care Physician: Deonte Rosario MD ICU Attending Physician: ADRIAN Feldman Code Status: Full Code Reason for ICU admission: Angioedema. Concern for airway compromise. Subjective: OVERNIGHT EVENTS: Overnight patient was complaining of headache. Received Tylenol and magnesium. She still complaining of headache and mentioned that she was unable to slept overnight. Blood pressure is 140/68, heart rate 73. On room air. Labs reviewed and evaluated: C4 level within normal range. CRP less than 3. ESR 9. Leukocytosis 21.5 Hemoglobin 9.5 MCV 99. Normal level of folate B12 and iron. Creatinine 1.51. BUN 27. REVIEW OF SYSTEMS: Constitutional: Negative for Fever, chills Eyes: Negative for visual changes, diplopia ENT: Negative for mouth sores, sore throat. Cardiovascular: Negative for lightheadedness ,chest pain, palpitations Respiratory:Negative for Shortness of breath,cough or wheezing. Gastrointestinal: Negative for nausea/vomiting, change in bowel habits, abdominal pain Genitourinary:Negative for change in bladder habits, dysuria, hematuria. Musculoskeletal: Negative for joint pain Neurological: Positive for headache, negative change in muscle strength numbness/tingling HPI: Referred from [facility] ER for the concern of angioedema. Patient was in her normal state and suddenly started noticing tongue swelling, throat swelling with difficulty swallowing and change in her voice at 5 PM yesterday. Denies skin rash or difficulty breathing. She lives in a [facility], nurse recommended to visit the emergency department. She was seen in the [facility] and was given IV antihistamine Solu-Medrol epi and FFP's. Her symptoms resolved significantly and she was transferred to the ICU directly. Of note, she was recently diagnosed with COVID-19 infection and was self isolating for 10 days. No oxygen requirement and hospitalization needed for COVID-19. Her past medical history significant for essential hypertension. Coronary artery disease status post PCI, last PCI was a year ago when she had a cardiac arrest and was resuscitated. Mentioned that she had 1 stent placed and was taking aspirin and Brilinta. She also mention about history congestive heart failure with EF around 40 to 45%. She patient has been on beta-nelly Aldactone and lisinopril. She is nondiabetic, non-smoker and admits to social drinking. OBJECTIVE: VITAL SIGNS: BP (!) 141/68 Pulse 74 Temp 97.7 F (36.5 C) (Oral) Resp 14 Ht 5' 4 (1.626 m) Wt 136 lb 3.9 oz (61.8 kg) SpO2 93% BMI 23.39 kg/m Tmax over 24 hours: Temp (24hrs), Av F (36.7 C), Min:97.3 F (36.3 C), Max:98.5 F (36.9 C) Patient Vitals for the past 8 hrs: Weight 06/19/22 0600 136 lb 3.9 oz (61.8 kg) Intake/Output Summary (Last 24 hours) at 06/19/2022 0751 Last data filed at 06/19/2022 0747 Gross per 24 hour Intake 1151.05 ml Output 700 ml Net 451.05 ml Date 06/19/22 0000 - 06/19/22 2359 Shift 9701-5985 9125-1229 6564-4526 24 Hour Total INTAKE I.V.(mL/kg) 1(0) 1(0) IV Piggyback(mL/kg) 50(0.8) 50(0.8) Shift Total(mL/kg) 51.1(0.8) 51.1(0.8) OUTPUT Urine(mL/kg/hr) 600 600 Shift Total(mL/kg) 600(9.7) 600(9.7) Weight (kg) 61.8 61.8 61.8 61.8 Wt Readings from Last 3 Encounters: 06/19/22 136 lb 3.9 oz (61.8 kg) Body mass index is 23.39 kg/m . PHYSICAL EXAM: Constitutional: Feeling better overall except mild headache. HEENT: PERRLA, EOMI, sclera clear, anicteric Respiratory: clear to auscultation, no wheezes or rales and unlabored breathing. Cardiovascular: regular rate and rhythm, normal S1, S2, no murmur noted and 2+ pulses throughout Abdomen: soft, nontender, nondistended, no masses or organomegaly NEUROLOGIC: Awake, alert, oriented to name, place and time. Cranial nerves II-XII are grossly intact. Motor is 5 out of 5 bilaterally. Sensory is intact. Extremities: peripheral pulses normal, no pedal edema,. Any additional physical findings: MEDICATIONS: Scheduled Meds: polyethylene glycol 17 g Oral Daily carvedilol 12.5 mg Oral BID WC methylPREDNISolone 30 mg IntraVENous Daily sodium chloride flush 5-40 mL IntraVENous 2 times per day aspirin 81 mg Oral Daily atorvastatin 80 mg Oral Nightly cloNIDine 0.1 mg Oral BID isosorbide mononitrate 15 mg Oral Daily ticagrelor 90 mg Oral BID famotidine (PEPCID) injection 20 mg IntraVENous Daily enoxaparin 30 mg SubCUTAneous Daily Continuous Infusions: sodium chloride 10 mL/hr at 06/19/22 0702 PRN Meds: polyvinyl alcohol, 1 drop, PRN sodium chloride flush, 5-40 mL, PRN sodium chloride, , PRN ondansetron, 4 mg, Q8H PRN Or ondansetron, 4 mg, Q6H PRN acetaminophen, 650 mg, Q6H PRN Or acetaminophen, 650 mg, Q6H PRN diphenhydrAMINE, 25 mg, Q6H PRN traZODone, 25 mg, Nightly PRN labetalol, 10 mg, Q4H PRN SUPPORT DEVICES: [] Ventilator [] BIPAP [] Nasal Cannula [x] Room Air DATA: Complete Blood Count: Recent Labs 06/17/22 0811 06/18/22 0454 06/19/22 0254 WBC 12.8* 23.3* 21.5* HGB 10.2* 9.4* 9.5* MCV 95.6 92.4 99.7 PLT See Reflexed IPF Result See Reflexed IPF Result 232 RBC 3.41* 3.15* 3.18* HCT 32.6* 29.1* 31.7* MCH 29.9 29.8 29.9 MCHC 31.3 32.3 30.0 RDW 14.2 14.6* 14.6* MPV -- -- 10.6 PT/INR: No results found for: PROTIME, INR PTT: No results found for: APTT, PTT Basal Metabolic Profile: Recent Labs 06/17/22 0811 06/18/22 0454 NA 140 143 K 4.2 4.5 BUN 22 27* CREATININE 1.24* 1.51* CL 107 112* CO2 16* 20 Magnesium: No results found for: MG Phosphorus: No results found for: PHOS S. Calcium: Recent Labs 06/18/22 0454 CALCIUM 9.2 LFTS Recent Labs 06/17/22 0811 ALKPHOS 148* ALT 10 AST 16 BILITOT 0.4 LABALBU 4.3 AMYLASE/LIPASE/AMMONIA No results for input(s): AMYLASE, LIPASE, AMMONIA in the last 72 hours. 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 * Angioedema of the tongue and throat: Resolved Secondary to lisinopril. Responded well to FFP, epi Solu-Medrol and antihistamine. ESR CRP within the normal range. C4 level is normal. C1 inhibitor within the normal range. Currently on Solu-Medrol 30 mg daily. Will send patient on tapered dose of prednisone for 5 to 7 days. Asymptomatic COVID-19 infection: Does not require oxygen. Chest x-ray is unremarkable except nodule density in the right upper lung with recommendation to follow-up on CT scan. Tested positive with rapid COVID. Okay to be out of isolation. Asymptomatic, not requiring oxygen, has been 2 weeks since infected. Essential hypertension: On clonidine 0.1 mg twice daily. On Coreg 12.5 mg twice daily and will uptitrate as tolerated. Replaced metoprolol with Coreg due to slight association of angioedema with metoprolol as well. Normocytic anemia: Hemoglobin is 9.5 with MCV 99. Denies melena or blood in the stool. Normal folate and B12 and iron studies. Will need evaluation by heme/oncology as an outpatient. Nodular density in the right upper lung: Advised CT scan lung as per recommendation. History of difficulty swallowing status post dilatation: Unknown whether it was achalasia or strictures. Last esophageal dilatation was 3 months ago as per patient. Plan for barium swallow this morning. Coronary artery disease status post PCI: Resume aspirin and Brilinta. No concern for ischemia during this admission. History of congestive heart failure: Stable DVT prophylaxis: Lovenox 40 mg daily. GI prophylaxis: Pepcid. Abebe Coker MD, Department of Internal Medicine/ Critical care [facility]) 06/19/2022, 7:51 AM Attending Physician Statement I have discussed the care of Piedad Alatorre, including pertinent history and exam findings with the resident. I have reviewed the lima elements of all parts of the encounter with the resident. I have seen and examined the patient with the resident. I agree with the assessment and plan and status of the problem list as documented. Seen the patient this morning during rounds, chart reviewed labs and imaging studies seen Patient is doing much better her throat swelling is better. She had gone for barium swallow evaluation results are not available. She is on liquid diet will advance to soft pur ed diet as patient has less throat swelling. No aspiration was noted by nursing staff on liquid diet. Patient chest x-ray shows a density overlying or under the ribs. CT scan was suggested by radiology the density is dense and likely calcified we will get CT scan of the chest. Waiting for transfer to the floor with medicine team. Please note that this chart was generated using voice recognition [employer] dictation software. Although every effort was made to ensure the accuracy of this automated polisher sand, some errors in polisher sand may have occurred. Adrian Riley MD 06/19/2022 3:22 PM Physical Therapy Facility/Department: [facility] Initial Assessment Name: Piedad Alatorre : 1935 Date of Service: 06/18/2022 Obtained from medical chart: Patient was in her normal state and suddenly started noticing tongue swelling, throat swelling with difficulty swallowing and change in her voice at 5 PM yesterday. Denies skin rash or difficulty breathing. She lives in a [facility], nurse recommended to visit the emergency department. She was seen in the [facility] and was given IV antihistamine Solu-Medrol epi and FFP's. Her symptoms resolved significantly and she was transferred to the ICU directly. Per chart review, there has been no change in her medications recently. She has been taking lisinopril. Patient does not remember her medication names. She also mentioned about allergy to shrimp's and oyster but has not taken it. Discharge Recommendations: Patient would benefit from continued therapy after discharge PT Equipment Recommendations Equipment Needed: No Patient Diagnosis(es): There were no encounter diagnoses. Past Medical History: has no past medical history on file. Past Surgical History: has no past surgical history on file. Assessment Body Structures, Functions, Activity Limitations Requiring Skilled Therapeutic Intervention: Decreased functional mobility ;Decreased endurance;Decreased balance;Decreased strength Assessment: Pt with mobility deficits requiring CGA to ambulate 40 feet with no device with fair stability. Pt most limited this date secondary to mild endurance and BLE strength deficits. Pt would benefit from additional PT upon discharge to address strength and endurance deficits. Pt is expected to be safe to return to prior living arrangements upon discharge based on today's session. Therapy Prognosis: Good Decision Making: Low Complexity Requires PT Follow-Up: Yes Activity Tolerance Activity Tolerance: Patient tolerated treatment well Plan Physcial Therapy Plan General Plan: (5-6x/week) Current Treatment Recommendations: Strengthening, Balance training, Functional mobility training, Transfer training, Gait training, Therapeutic activities, Home exercise program, Safety education & training, Patient/Caregiver education & training, Endurance training Safety Devices Type of Devices: Call light within reach, Left in chair, Nurse notified Restraints Restraints Initially in Place: No Restrictions Restrictions/Precautions Restrictions/Precautions: Up as Tolerated, Isolation (droplet+) Required Braces or Orthoses?: No Subjective General Patient assessed for rehabilitation services?: Yes Response To Previous Treatment: Not applicable Family / Caregiver Present: No Follows Commands: Within Functional Limits Subjective Subjective: Pt supine in bed and agreeable to therapy, RN agreeable to therapy. Pt very pleasant and cooperative throughout. Pt denies pain at rest. Social/Functional History Social/Functional History Lives With: Other (comment) (resides aat [facility] in [place]) Type of Home: Assisted living Home Layout: One level Home Access: Level entry Bathroom Shower/Tub: Walk-in shower Bathroom Toilet: Standard Bathroom Equipment: Grab bars in shower, Shower chair, Toilet raiser Home Equipment: Cane, quad, Walker, rolling (pt reports using quad cane on bad days ) Has the patient had two or more falls in the past year or any fall with injury in the past year?: No Receives Help From: Outpatient therapy (3x/week) ADL Assistance: Needs assistance (independently dresses, assistance with bathing secondary to visual deficits.) Toileting: Independent Homemaking Assistance: Independent Homemaking Responsibilities: No (facility performs cooking, cleaning, laundry) Ambulation Assistance: Independent Transfer Assistance: Independent Active Websphere Commerce Developer: No Patient's Websphere Commerce Developer Info: cab 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 Leisure & Hobbies: listening to music, playing bingo, going to [employer] Vision/Hearing Vision Vision: Impaired ( I can't see much ) Vision Exceptions: Wears glasses at all times Hearing Hearing: Within functional limits Cognition Cognition Overall Cognitive Status: WFL Objective AROM RLE (degrees) RLE AROM: WFL AROM LLE (degrees) LLE AROM : WFL AROM RUE (degrees) RUE AROM : WFL AROM LUE (degrees) LUE AROM : WFL Strength RLE Strength RLE: WFL Comment: Grossly 4/5 Strength LLE Strength LLE: WFL Comment: Grossly 4/5 Strength RUE Strength RUE: WFL Comment: Grossly 4/5 Strength LUE Strength LUE: WFL Comment: Grossly 4/5 Bed mobility Supine to Sit: Stand by assistance Sit to Supine: (pt retired up to a chair at the conclusion of today's session.) Scooting: Stand by assistance Bed Mobility Comments: HOB elevated ~35 degrees without use of handrails. Transfers Sit to Stand: Stand by assistance Stand to Sit: Stand by assistance Comment: Transfers performed 4x this date. Ambulation Surface: Level tile Device: No Device Assistance: Contact guard assistance Quality of Gait: fair stability, mildly increased trunk sway, no LOB. Distance: 12 feet, seated rest break, 40 feet More Ambulation?: No Stairs/Curb Stairs?: No Balance Posture: Fair Sitting - Static: Good Sitting - Dynamic: Good;- Standing - Static: Fair;+ Standing - Dynamic: Fair Comments: standing balance assessed while using no device. AM-PAC Score AM-[facility] Inpatient Mobility Raw Score : 20 (06/18/221558) AM-PAC Inpatient T-Scale Score : 47.67 (06/18/221558) Mobility Inpatient CMS 0-100% Score: 35.83 (06/18/221558) Mobility Inpatient CMS G-Code Modifier : CJ (06/18/221558) Goals Short Term Goals Time Frame for Short Term Goals: 14 visits Short Term Goal 1: Pt will ambulate 225 feet with no device and supervision. Short Term Goal 2: Pt will perform sit<>stand transfer independently. Short Term Goal 3: Pt will demonstrate good- standing balance to decrease fall risk. Short Term Goal 4: Pt will tolerate a 35 minute therapy session to promote increased endurance. Education Patient Education Education Given To: Patient Education Provided: Role of Therapy;Plan of Care Education Method: Verbal Barriers to Learning: None Education Outcome: Verbalized understanding Therapy Time Individual Concurrent Group Co-treatment Time In 1520 Time Out 1539 Minutes 19 Timed Code Treatment Minutes: 12 Minutes Oleksandr Cha PT Speech Language Pathology Facility/Department: [facility] CLINICAL BEDSIDE SWALLOW EVALUATION NAME: Piedad Alatorre : 1935 ADMISSION DATE: 06/17/2022 ADMITTING DIAGNOSIS: has Angioedema of tongue; 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 Date of Eval: 06/18/2022 Evaluating Therapist: MONTSE STAFFORD Current Diet level: Current Diet : NPO Primary Complaint Patient was in her normal state and suddenly started noticing tongue swelling, throat swelling with difficulty swallowing and change in her voice at 5 PM yesterday. Denies skin rash or difficulty breathing. She lives in a [facility] [place], nurse recommended to visit the emergency department. She was seen in the [facility] and was given IV antihistamine Solu-Medrol epi and FFP's. Her symptoms resolved significantly and she was transferred to the ICU directly. Pain: Pain Assessment Pain Assessment: 0-10 Pain Level: 0 Reason for Referral Piedad Alatorre was referred for a bedside swallow evaluation to assess the efficiency of her swallow function, identify signs and symptoms of aspiration and make recommendations regarding safe dietary consistencies, effective compensatory strategies, and safe eating environment. Impression Pt. with no immediate s/s of aspiration with all consistencies tested. However, pt. with c/o PO feeling stuck in pharyngeal cavity. Pt. used subsequent swallows and liquid bolus to clear residual. Minimal success. Coughing noted in order to clear residual. Oral phase is WFL. ST to recommend NPO and MBSS to r/o/confirm aspiration. Results and recommendations reported to RN. Treatment Plan Requires WIDE AREA NETWORK SYSTEMS ADMINISTRATOR Intervention: Yes D/C Recommendations: Ongoing speech therapy is recommended during this hospitalization Frequency: 3-5 x week Recommended Diet and Intervention Solid Recommendation: NPO Liquid Recommendation: NPO Recommended Form of Meds: Via alternative means of nutrition Recommendations: NPO;Modified barium swallow study Therapeutic Interventions: Patient/Family education Treatment/Goals Dysphagia Goals: The patient will tolerate instrumental swallowing procedure General Chart Reviewed: Yes Behavior/Cognition: Alert;Cooperative Temperature Spikes Noted: No Communication Observation: Functional Follows Directions: Simple Dentition: Adequate Patient Positioning: Upright in bed Vision/Hearing Vision Vision: Within Functional Limits Hearing Hearing: Within functional limits Oral Phase Dysfunction Oral Phase Oral Phase: WFL Indicators of Pharyngeal Phase Dysfunction Pharyngeal Phase Pharyngeal Phase: Pt. with no immediate s/s of aspiration with all consistencies tested. However, pt. with c/o PO feeling stuck in pharyngeal cavity. Pt. used subsequent swallows and liquid bolus to clear residual. Minimal success. Prognosis Individuals consulted Consulted and agree with results and recommendations: Patient;RN Education Patient Education: yes Patient Education Response: Verbalizes understanding Therapy Time Time in: 1004 Time out: 1014 Total Time: 10 MARBELLA HEREDIA M.A. CCC-[employer] NETWORK SYSTEMS ADMINISTRATOR 06/18/2022 11:39 AM Critical Care Team - Daily Progress Note Date and time: 06/18/2022 8:08 AM Patient's name: Piedad Alatorre Patient's account/billing number: [id number] Patient's Date of : 1935 Age: 86 y.o. Date of Admission: 06/17/2022 6:36 AM Length of stay during current admission: 1 Primary Care Physician: No primary care provider on file. ICU Attending Physician: ADRIAN Feldman Code Status: Full Code Reason for ICU admission: Angioedema. Concern for airway compromise. Subjective: OVERNIGHT EVENTS: No significant event noted overnight. Patient is able to swallow liquid with no concern for choking or difficulty breathing. She remained on room air. Blood pressure is 145/66, heart rate 89. Afebrile. UOP 590x1 unmeasured. Labs reviewed and evaluated: C4 level within normal range. CRP less than 3. ESR 9. Leukocytosis 23.3 most likely secondary to steroid. Hemoglobin 9.4 Creatinine 1.51. BUN 27. REVIEW OF SYSTEMS: Constitutional: Negative for Fever, chills Eyes: Negative for visual changes, diplopia ENT: Negative for mouth sores, sore throat. Cardiovascular: Negative for lightheadedness ,chest pain, palpitations Respiratory:Negative for Shortness of breath,cough or wheezing. Gastrointestinal: Negative for nausea/vomiting, change in bowel habits, abdominal pain Genitourinary:Negative for change in bladder habits, dysuria, hematuria. Musculoskeletal: Negative for joint pain Neurological: Negative for headache, change in muscle strength numbness/tingling HPI: Referred from [facility] ER for the concern of angioedema. Patient was in her normal state and suddenly started noticing tongue swelling, throat swelling with difficulty swallowing and change in her voice at 5 PM yesterday. Denies skin rash or difficulty breathing. She lives in a [facility], nurse recommended to visit the emergency department. She was seen in the [facility] and was given IV antihistamine Solu-Medrol epi and FFP's. Her symptoms resolved significantly and she was transferred to the ICU directly. Of note, she was recently diagnosed with COVID-19 infection and was self isolating for 10 days. No oxygen requirement and hospitalization needed for COVID-19. Her past medical history significant for essential hypertension. Coronary artery disease status post PCI, last PCI was a year ago when she had a cardiac arrest and was resuscitated. Mentioned that she had 1 stent placed and was taking aspirin and Brilinta. She also mention about history congestive heart failure with EF around 40 to 45%. She patient has been on beta-nelly Aldactone and lisinopril. She is nondiabetic, non-smoker and admits to social drinking. OBJECTIVE: VITAL SIGNS: BP (!) 146/68 Pulse 94 Temp 98.5 F (36.9 C) (Axillary) Resp 20 Ht 5' 4 (1.626 m) Wt 138 lb (62.6 kg) SpO2 99% BMI 23.69 kg/m Tmax over 24 hours: Temp (24hrs), Av.4 F (36.9 C), Min:98.1 F (36.7 C), Max:99.3 F (37.4 C) Patient Vitals for the past 8 hrs: BP Temp Temp src Pulse Resp SpO2 06/18/22 0600 -- 98.5 F (36.9 C) Axillary -- -- -- 06/18/22 0558 (!) 146/68 -- -- 94 20 99 % 06/18/22 0543 -- -- -- (!) 103 19 96 % 06/18/22 0528 -- -- -- 87 24 99 % 06/18/22 0513 (!) 165/86 -- -- 94 25 100 % 06/18/22 0458 -- -- -- 82 22 99 % 06/18/22 0443 -- -- -- 71 14 100 % 06/18/22 0428 -- -- -- 63 14 100 % 06/18/22 0413 -- -- -- 70 16 100 % 06/18/22 0400 (!) 135/59 98.5 F (36.9 C) Axillary 63 14 98 % 06/18/22 0358 -- -- -- 60 15 98 % 06/18/22 0343 -- -- -- 63 15 100 % 06/18/22 0328 -- -- -- 66 18 99 % 06/18/22 0313 -- -- -- 70 14 98 % 06/18/22 0258 (!) 128/56 -- -- 65 18 98 % 06/18/22 0243 -- -- -- 63 25 98 % 06/18/22 0228 -- -- -- 77 17 99 % 06/18/22 0213 -- -- -- 62 14 98 % 06/18/22 0158 (!) 133/58 -- -- 62 14 98 % 06/18/22 0143 -- -- -- 68 15 99 % 06/18/22 0128 -- -- -- 71 14 99 % 06/18/22 0113 -- -- -- 74 14 97 % 06/18/22 0058 131/61 -- -- 66 15 98 % 06/18/22 0045 -- -- -- 65 16 99 % 06/18/22 0043 -- -- -- 66 15 98 % 06/18/22 0030 -- -- -- 68 15 99 % 06/18/22 0028 -- -- -- 67 15 99 % 06/18/22 0015 -- -- -- 66 15 99 % 06/18/22 0013 -- -- -- 68 16 99 % Intake/Output Summary (Last 24 hours) at 06/18/2022 0808 Last data filed at 06/17/2022 1414 Gross per 24 hour Intake -- Output 590 ml Net -590 ml Wt Readings from Last 3 Encounters: 06/17/22 138 lb (62.6 kg) Body mass index is 23.69 kg/m . PHYSICAL EXAM: Constitutional: Feeling better overall. Not in acute distress. HEENT: PERRLA, EOMI, sclera clear, anicteric Respiratory: clear to auscultation, no wheezes or rales and unlabored breathing. Cardiovascular: regular rate and rhythm, normal S1, S2, no murmur noted and 2+ pulses throughout Abdomen: soft, nontender, nondistended, no masses or organomegaly NEUROLOGIC: Awake, alert, oriented to name, place and time. Cranial nerves II-XII are grossly intact. Motor is 5 out of 5 bilaterally. Sensory is intact. Extremities: peripheral pulses normal, no pedal edema,. Any additional physical findings: MEDICATIONS: Scheduled Meds: sodium chloride flush 5-40 mL IntraVENous 2 times per day aspirin 81 mg Oral Daily atorvastatin 80 mg Oral Nightly cloNIDine 0.1 mg Oral BID isosorbide mononitrate 15 mg Oral Daily ticagrelor 90 mg Oral BID famotidine (PEPCID) injection 20 mg IntraVENous Daily enoxaparin 30 mg SubCUTAneous Daily carvedilol 6.25 mg Oral BID WC Continuous Infusions: sodium chloride PRN Meds: sodium chloride flush, 5-40 mL, PRN sodium chloride, , PRN ondansetron, 4 mg, Q8H PRN Or ondansetron, 4 mg, Q6H PRN polyethylene glycol, 17 g, Daily PRN acetaminophen, 650 mg, Q6H PRN Or acetaminophen, 650 mg, Q6H PRN diphenhydrAMINE, 25 mg, Q6H PRN traZODone, 25 mg, Nightly PRN labetalol, 10 mg, Q4H PRN SUPPORT DEVICES: [] Ventilator [] BIPAP [] Nasal Cannula [x] Room Air DATA: Complete Blood Count: Recent Labs 06/17/22 0811 06/18/22 0454 WBC 12.8* 23.3* HGB 10.2* 9.4* MCV 95.6 92.4 PLT See Reflexed IPF Result See Reflexed IPF Result RBC 3.41* 3.15* HCT 32.6* 29.1* MCH 29.9 29.8 MCHC 31.3 32.3 RDW 14.2 14.6* PT/INR: No results found for: PROTIME, INR PTT: No results found for: APTT, PTT Basal Metabolic Profile: Recent Labs 06/17/22 0811 06/18/22 0454 NA 140 143 K 4.2 4.5 BUN 22 27* CREATININE 1.24* 1.51* CL 107 112* CO2 16* 20 Magnesium: No results found for: MG Phosphorus: No results found for: PHOS S. Calcium: Recent Labs 06/18/22 0454 CALCIUM 9.2 LFTS Recent Labs 06/17/22 0811 ALKPHOS 148* ALT 10 AST 16 BILITOT 0.4 LABALBU 4.3 AMYLASE/LIPASE/AMMONIA No results for input(s): AMYLASE, LIPASE, AMMONIA in the last 72 hours. 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 * Angioedema of the tongue and throat: Resolved Secondary to lisinopril. Responded well to FFP, epi Solu-Medrol and antihistamine. ESR CRP within the normal range. C4 level is normal. C1 inhibitor studies awaited. Will send patient on tapered dose of prednisone for 5 to 7 days. Asymptomatic COVID-19 infection: Does not require oxygen. Chest x-ray is unremarkable except nodule density in the right upper lung with recommendation to follow-up on CT scan. Tested positive with rapid COVID. Essential hypertension: On clonidine 0.1 mg twice daily. Started on Coreg 6.25 mg and will uptitrate as tolerated. Replaced metoprolol with Coreg due to slight association of angioedema with metoprolol as well. Normocytic anemia: Hemoglobin is 9.4 with MCV 92. Denies melena or blood in the stool. We will send iron studies and folate B12. Recommend GI work-up for anemia in the setting of dual antiplatelet therapy. Nodular density in the right upper lung: Advised CT scan lung as per recommendation. Coronary artery disease status post PCI: Resume aspirin and Brilinta. No concern for ischemia during this admission. History of congestive heart failure: Stable DVT prophylaxis: Lovenox 40 mg daily. GI prophylaxis: Pepcid. Abebe Coker MD, Department of Internal Medicine/ Critical care [facility], [facility]) 06/18/2022, 8:08 AM Attending Physician Statement I have discussed the care of Piedad Alatorre, including pertinent history and exam findings with the resident. I have reviewed the lima elements of all parts of the encounter with the resident. I have seen and examined the patient with the resident. I agree with the assessment and plan and status of the problem list as documented. Overnight events noted she is afebrile hemodynamically she is stable. She did not swelling of the tongue or throat swelling. She continues to complain of feeling of lump in throat corded patient she is able to drink liquid but more than that including soft feels like stuck in the throat Patient has history of esophageal problem likely achalasia is according to patient she has been followed by gastroenterology she had to have dilatation of esophagus intermittently last time was 3 months ago. She is currently on Coreg and clonidine. We will decrease Solu-Medrol to 30 once daily. We will get a barium swallow tomorrow. We will transfer to floor with medicine team Discussed with nursing staff, treatment and plan discussed. Discussed with respiratory therapist. Total critical care time caring for this patient with life threatening, unstable organ failure, including direct patient contact, management of life support systems, review of data including imaging and labs, discussions with other team members and physicians at least 30 Min so far today, excluding procedures. Please note that this chart was generated using voice recognition [employer] dictation software. Although every effort was made to ensure the accuracy of this automated polisher sand, some errors in polisher sand may have occurred. Adrian Riley MD 06/18/2022 12:01 PM PHARMACY NOTE: The electrolyte replacement protocol for potassium/magnesium has been discontinued per P&T guidelines because the patient has reduced renal function (CrCl < 30 mL/min). The patient's most recent potassium & magnesium levels are: Recent Labs 06/17/22 0811 K 4.2 Estimated Creatinine Clearance: 29 mL/min (A) (based on SCr of 1.24 mg/dL (H)). For patients with decreased renal function (below 30ml/min) needing potassium/magnesium supplementation, please order individual bolus doses with appropriate monitoring. Please contact the inpatient pharmacy with any concerns. Thank you. Paulina Todd PharmD [facility] 06/17/2022 3:07 PM documented in this encounter [employer] Phone: 06-19-2022 Hospital Discharge instructions Abebe Coker MD - 06/19/2022 3:17 PM EST You have been admitted with angioedema secondary to lisinopril use. You are highly advised to not take lisinopril in the future. You were treated with steroid antihistamine and epinephrine. We are sending you on steroid for 2 more days. We did some readjustment in your antihypertensive medication. Started you on Coreg 25 mg twice daily. Continue with clonidine 0.1 mg twice daily. We also stopped Lopressor with slight association for angioedema and replace that with Coreg. Please follow-up with your PCP within 1 week of discharge and discussed about antihypertensive medication. Continue to take your rest of the medicines as prescribed. You also underwent barium swallow study and per speech recommendation, you are good to have regular diet with thin consistency. Please remember to have a repeat CT scan of the chest due to 0.8 cm solid nodule. Discussed with your PCP. Also discussed anemia work-up with your PCP. In case of worsening symptoms, seek medical attention come to emergency department. documented in this encounter [employer] Phone: 05-01-2022 Hospital Discharge instructions Patient Education 05/01/2022 10:05:57 Hypertension, Adult, Pbiv-ut-Urag Hypertension, Adult Hypertension is another name for high blood pressure. High blood pressure forces your heart to work harder to pump blood. This can cause problems over time. There are two numbers in a blood pressure reading. There is a top number (systolic) over a bottom number (diastolic). It is best to have a blood pressure that is below 120/80. Healthy choices can help lower your blood pressure, or you may need medicine to help lower it. What are the causes? The cause of this condition is not known. Some conditions may be related to high blood pressure. What increases the risk? Smoking. Having type 2 diabetes mellitus, high cholesterol, or both. Not getting enough exercise or physical activity. Being overweight. Having too much fat, sugar, calories, or salt (sodium) in your diet. Drinking too much alcohol. Having long-term (chronic) kidney disease. Having a family history of high blood pressure. Age. Risk increases with age. Race. You may be at higher risk if you are . Gender. Men are at higher risk than women before age 45. After age 65, women are at higher risk than men. Having obstructive sleep apnea. Stress. What are the signs or symptoms? High blood pressure may not cause symptoms. Very high blood pressure (hypertensive crisis) may cause: ?Headache. ?Feelings of worry or nervousness (anxiety). ?Shortness of breath. ?Nosebleed. ?A feeling of being sick to your stomach (nausea). ?Throwing up (vomiting). ?Changes in how you see. ?Very bad chest pain. ?Seizures. How is this treated? This condition is treated by making healthy lifestyle changes, such as: ?Eating healthy foods. ?Exercising more. ?Drinking less alcohol. Your health care provider may prescribe medicine if lifestyle changes are not enough to get your blood pressure under control, and if: ?Your top number is above 130. ?Your bottom number is above 80. Your personal target blood pressure may vary. Follow these instructions at home: Eating and drinking If told, follow the DASH eating plan. To follow this plan: ?Fill one half of your plate at each meal with fruits and vegetables. ?Fill one fourth of your plate at each meal with whole grains. Whole grains include whole-wheat pasta, brown rice, and whole-grain bread. ?Eat or drink low-fat dairy products, such as skim milk or low-fat yogurt. ?Fill one fourth of your plate at each meal with low-fat (lean) proteins. Low-fat proteins include fish, chicken without skin, eggs, beans, and tofu. ?Avoid fatty meat, cured and processed meat, or chicken with skin. ?Avoid pre-made or processed food. Eat less than 1,500 mg of salt each day. Do not drink alcohol if: ?Your doctor tells you not to drink. ?You are , may be , or are planning to become . If you drink alcohol: ?Limit how much you use to: ?0 1 drink a day for women. ?0 2 drinks a day for men. ?Be aware of how much alcohol is in your drink. In the [place] one drink equals one 12 oz bottle of beer (355 mL), one 5 oz glass of wine (148 mL), or one 1 oz glass of hard liquor (44 mL). Lifestyle Work with your doctor to stay at a healthy weight or to lose weight. Ask your doctor what the best weight is for you. Get at least 30 minutes of exercise most days of the week. This may include walking, swimming, or biking. Get at least 30 minutes of exercise that strengthens your muscles (resistance exercise) at least 3 days a week. This may include lifting weights or doing Pilates. Do not use any products that contain nicotine or tobacco, such as cigarettes, e-cigarettes, and chewing tobacco. If you need help quitting, ask your doctor. Check your blood pressure at home as told by your doctor. Keep all follow-up visits as told by your doctor. This is important. Medicines Take uxpi-jad-[id number] and prescription medicines only as told by your doctor. Follow directions carefully. Do not skip doses of blood pressure medicine. The medicine does not work as well if you skip doses. Skipping doses also puts you at risk for problems. Ask your doctor about side effects or reactions to medicines that you should watch for. Contact a doctor if you: Think you are having a reaction to the medicine you are taking. Have headaches that keep coming back (recurring). Feel dizzy. Have swelling in your ankles. Have trouble with your vision. Get help right away if you: Get a very bad headache. Start to feel mixed up (confused). Feel weak or numb. Feel faint. Have very bad pain in your: ?Chest. ?Belly (abdomen). Throw up more than once. Have trouble breathing. Summary Hypertension is another name for high blood pressure. High blood pressure forces your heart to work harder to pump blood. For most people, a normal blood pressure is less than 120/80. Making healthy choices can help lower blood pressure. If your blood pressure does not get lower with healthy choices, you may need to take medicine. This information is not intended to replace advice given to you by your health care provider. Make sure you discuss any questions you have with your health care provider. Document Released: 10/14/2008 Document Revised: 01/06/2019 Document Reviewed: 01/06/2019 Elsevier Patient Education 2020 [employer]. Follow Up Care 01/22/2022 12:28:23 With:PAULO HINOJOSA, Deonte Turpin, MED Address: [facility] [address], [address] [place] [address]- When:Within 3 Month(s) [facility] 03-18-2022 Hospital Discharge instructions Patient Education 03/18/2022 10:33:09 Colonoscopy, Care After Surgery Salam (CUSTOM) Colonoscopy Care After Surgery Please read the instructions outlined below and refer to this sheet in the next few weeks. These discharge instructions provide you with general information on caring for yourself after you leave the hospital. Your doctor may also give you specific instructions. While your treatment has been planned according to the most current medical practices available, unavoidable complications occasionally occur. If you have any problems or questions after discharge, please call your doctor. ACTIVITY You may resume your regular activity, but move at a slower pace for the next 24 hours. Take frequent rest periods for the next 24 hours. Walking will help get rid of the air and reduce the bloated feeling in your abdomen (belly). No driving for 24 hours (because of the anesthesia (medicine) used during the test). You may shower. Do not sign any important legal documents or operate any machinery for 24 hours (because of the anesthesia used during the test). NUTRITION Drink plenty of fluids. You may resume your normal diet as instructed by your doctor. Begin with a light meal and progress to your normal diet. Heavy or fried foods are harder to digest and may make you feel nauseated (sick to your stomach). Avoid alcoholic beverages for 24 hours or as instructed. MEDICATIONS You may resume your normal medications unless your doctor tells you otherwise. WHAT YOU CAN EXPECT TODAY Some feelings of bloating in the abdomen. Passage of more gas than usual. Spotting of blood in your stool or on the toilet paper. FOLLOW-UP Your doctor will discuss the results of your test with you. SEEK IMMEDIATE MEDICAL ATTENTION IF: There is more than a spotting of blood in your stool. There is abdominal distention (your abdomen is swollen). There is vomiting. You have a temperature over 101.5 F. There is abdominal pain or discomfort that is severe or gets worse throughout the day. 03/18/2022 10:33:09 Hiatal Hernia Hiatal Hernia A hiatal hernia occurs when part of the stomach slides above the muscle that separates the abdomen from the chest (diaphragm). A person can be born with a hiatal hernia (congenital), or it may develop over time. In almost all cases of hiatal hernia, only the top part of the stomach pushes through the diaphragm. Many people have a hiatal hernia with no symptoms. The larger the hernia, the more likely it is that you will have symptoms. In some cases, a hiatal hernia allows stomach acid to flow back into the tube that carries food from your mouth to your stomach (esophagus). This may cause heartburn symptoms. Severe heartburn symptoms may mean that you have developed a condition called gastroesophageal reflux disease (GERD). What are the causes? This condition is caused by a weakness in the opening (hiatus) where the esophagus passes through the diaphragm to attach to the upper part of the stomach. A person may be born with a weakness in the hiatus, or a weakness can develop over time. What increases the risk? This condition is more likely to develop in: Older people. Age is a major risk factor for a hiatal hernia, especially if you are over the age of 50. women. People who are overweight. People who have frequent constipation. What are the signs or symptoms? Symptoms of this condition usually develop in the form of GERD symptoms. Symptoms include: Heartburn. Belching. Indigestion. Trouble swallowing. Coughing or wheezing. Sore throat. Hoarseness. Chest pain. Nausea and vomiting. How is this diagnosed? This condition may be diagnosed during testing for GERD. Tests that may be done include: X-rays of your stomach or chest. An upper gastrointestinal (GI) series. This is an X-ray exam of your GI tract that is taken after you swallow a chalky liquid that shows up clearly on the X-ray. Endoscopy. This is a procedure to look into your stomach using a thin, flexible tube that has a tiny camera and light on the end of it. How is this treated? This condition may be treated by: Dietary and lifestyle changes to help reduce GERD symptoms. Medicines. These may include: ?Bnag-uat-zryobbp antacids. ?Medicines that make your stomach empty more quickly. ?Medicines that block the production of stomach acid (H2 blockers). ?Stronger medicines to reduce stomach acid (proton pump inhibitors). Surgery to repair the hernia, if other treatments are not helping. If you have no symptoms, you may not need treatment. Follow these instructions at home: Lifestyle and activity Do not use any products that contain nicotine or tobacco, such as cigarettes and e-cigarettes. If you need help quitting, ask your health care provider. Try to achieve and maintain a healthy body weight. Avoid putting pressure on your abdomen. Anything that puts pressure on your abdomen increases the amount of acid that may be pushed up into your esophagus. ?Avoid bending over, especially after eating. ?Raise the head of your bed by putting blocks under the legs. This keeps your head and esophagus higher than your stomach. ?Do not wear tight clothing around your chest or stomach. ?Try not to strain when having a bowel movement, when urinating, or when lifting heavy objects. Eating and drinking Avoid foods that can worsen GERD symptoms. These may include: ?Fatty foods, like fried foods. ?[place] fruits, like oranges or lemon. ?Other foods and drinks that contain acid, like orange juice or tomatoes. ?Spicy food. ?Chocolate. Eat frequent small meals instead of three large meals a day. This helps prevent your stomach from getting too full. ?Eat slowly. ?Do not lie down right after eating. ?Do not eat 1 2 hours before bed. Do not drink beverages with caffeine. These include cola, coffee, cocoa, and tea. Do not drink alcohol. General instructions Take jbmv-nal-aumgcmj and prescription medicines only as told by your health care provider. Keep all follow-up visits as told by your health care provider. This is important. Contact a health care provider if: Your symptoms are not controlled with medicines or lifestyle changes. You are having trouble swallowing. You have coughing or wheezing that will not go away. Get help right away if: Your pain is getting worse. Your pain spreads to your arms, neck, jaw, teeth, or back. You have shortness of breath. You sweat for no reason. You feel sick to your stomach (nauseous) or you vomit. You vomit blood. You have bright red blood in your stools. You have black, tarry stools. This information is not intended to replace advice given to you by your health care provider. Make sure you discuss any questions you have with your health care provider. Document Released: 07/18/2004 Document Revised: 04/10/2018 Document Reviewed: 12/01/2017 [employer] Patient Education 2019 [employer] Follow Up Care 01/30/2022 11:34:55 With:Rosette HARE Address: [address] [place] [address] Business (1) When: Unknown Comments:OFFICE WILL CALL DATE AND TIME OF FOLLOW-UP APPT. [facility] 01-22-2022 Hospital Discharge instructions Patient Education 01/22/2022 12:06:50 Hypertension, Adult, Hsfh-ms-Xhaj Hypertension, Adult Hypertension is another name for high blood pressure. High blood pressure forces your heart to work harder to pump blood. This can cause problems over time. There are two numbers in a blood pressure reading. There is a top number (systolic) over a bottom number (diastolic). It is best to have a blood pressure that is below 120/80. Healthy choices can help lower your blood pressure, or you may need medicine to help lower it. What are the causes? The cause of this condition is not known. Some conditions may be related to high blood pressure. What increases the risk? Smoking. Having type 2 diabetes mellitus, high cholesterol, or both. Not getting enough exercise or physical activity. Being overweight. Having too much fat, sugar, calories, or salt (sodium) in your diet. Drinking too much alcohol. Having long-term (chronic) kidney disease. Having a family history of high blood pressure. Age. Risk increases with age. Race. You may be at higher risk if you are . Gender. Men are at higher risk than women before age 45. After age 65, women are at higher risk than men. Having obstructive sleep apnea. Stress. What are the signs or symptoms? High blood pressure may not cause symptoms. Very high blood pressure (hypertensive crisis) may cause: ?Headache. ?Feelings of worry or nervousness (anxiety). ?Shortness of breath. ?Nosebleed. ?A feeling of being sick to your stomach (nausea). ?Throwing up (vomiting). ?Changes in how you see. ?Very bad chest pain. ?Seizures. How is this treated? This condition is treated by making healthy lifestyle changes, such as: ?Eating healthy foods. ?Exercising more. ?Drinking less alcohol. Your health care provider may prescribe medicine if lifestyle changes are not enough to get your blood pressure under control, and if: ?Your top number is above 130. ?Your bottom number is above 80. Your personal target blood pressure may vary. Follow these instructions at home: Eating and drinking If told, follow the DASH eating plan. To follow this plan: ?Fill one half of your plate at each meal with fruits and vegetables. ?Fill one fourth of your plate at each meal with whole grains. Whole grains include whole-wheat pasta, brown rice, and whole-grain bread. ?Eat or drink low-fat dairy products, such as skim milk or low-fat yogurt. ?Fill one fourth of your plate at each meal with low-fat (lean) proteins. Low-fat proteins include fish, chicken without skin, eggs, beans, and tofu. ?Avoid fatty meat, cured and processed meat, or chicken with skin. ?Avoid pre-made or processed food. Eat less than 1,500 mg of salt each day. Do not drink alcohol if: ?Your doctor tells you not to drink. ?You are , may be , or are planning to become . If you drink alcohol: ?Limit how much you use to: ?0 1 drink a day for women. ?0 2 drinks a day for men. ?Be aware of how much alcohol is in your drink. In the [place] one drink equals one 12 oz bottle of beer (355 mL), one 5 oz glass of wine (148 mL), or one 1 oz glass of hard liquor (44 mL). Lifestyle Work with your doctor to stay at a healthy weight or to lose weight. Ask your doctor what the best weight is for you. Get at least 30 minutes of exercise most days of the week. This may include walking, swimming, or biking. Get at least 30 minutes of exercise that strengthens your muscles (resistance exercise) at least 3 days a week. This may include lifting weights or doing Pilates. Do not use any products that contain nicotine or tobacco, such as cigarettes, e-cigarettes, and chewing tobacco. If you need help quitting, ask your doctor. Check your blood pressure at home as told by your doctor. Keep all follow-up visits as told by your doctor. This is important. Medicines Take [id number]-[id number] and prescription medicines only as told by your doctor. Follow directions carefully. Do not skip doses of blood pressure medicine. The medicine does not work as well if you skip doses. Skipping doses also puts you at risk for problems. Ask your doctor about side effects or reactions to medicines that you should watch for. Contact a doctor if you: Think you are having a reaction to the medicine you are taking. Have headaches that keep coming back (recurring). Feel dizzy. Have swelling in your ankles. Have trouble with your vision. Get help right away if you: Get a very bad headache. Start to feel mixed up (confused). Feel weak or numb. Feel faint. Have very bad pain in your: ?Chest. ?Belly (abdomen). Throw up more than once. Have trouble breathing. Summary Hypertension is another name for high blood pressure. High blood pressure forces your heart to work harder to pump blood. For most people, a normal blood pressure is less than 120/80. Making healthy choices can help lower blood pressure. If your blood pressure does not get lower with healthy choices, you may need to take medicine. This information is not intended to replace advice given to you by your health care provider. Make sure you discuss any questions you have with your health care provider. Document Released: 10/14/2008 Document Revised: 01/06/2019 Document Reviewed: 01/06/2019 [employer] Patient Education 2020 [employer]. Follow Up Care 10/17/2021 11:58:35 With:PAULO HINOJOSA, Deonte Turpin, MED Address: [address] [place] [address]- When:Within 3 Month(s) [facility] 10-17-2021 Hospital Discharge instructions Patient Education 10/17/2021 11:53:49 Hypertension, Adult, Mgek-uh-Dpjp Hypertension, Adult Hypertension is another name for high blood pressure. High blood pressure forces your heart to work harder to pump blood. This can cause problems over time. There are two numbers in a blood pressure reading. There is a top number (systolic) over a bottom number (diastolic). It is best to have a blood pressure that is below 120/80. Healthy choices can help lower your blood pressure, or you may need medicine to help lower it. What are the causes? The cause of this condition is not known. Some conditions may be related to high blood pressure. What increases the risk? Smoking. Having type 2 diabetes mellitus, high cholesterol, or both. Not getting enough exercise or physical activity. Being overweight. Having too much fat, sugar, calories, or salt (sodium) in your diet. Drinking too much alcohol. Having long-term (chronic) kidney disease. Having a family history of high blood pressure. Age. Risk increases with age. Race. You may be at higher risk if you are . Gender. Men are at higher risk than women before age 45. After age 65, women are at higher risk than men. Having obstructive sleep apnea. Stress. What are the signs or symptoms? High blood pressure may not cause symptoms. Very high blood pressure (hypertensive crisis) may cause: ?Headache. ?Feelings of worry or nervousness (anxiety). ?Shortness of breath. ?Nosebleed. ?A feeling of being sick to your stomach (nausea). ?Throwing up (vomiting). ?Changes in how you see. ?Very bad chest pain. ?Seizures. How is this treated? This condition is treated by making healthy lifestyle changes, such as: ?Eating healthy foods. ?Exercising more. ?Drinking less alcohol. Your health care provider may prescribe medicine if lifestyle changes are not enough to get your blood pressure under control, and if: ?Your top number is above 130. ?Your bottom number is above 80. Your personal target blood pressure may vary. Follow these instructions at home: Eating and drinking If told, follow the DASH eating plan. To follow this plan: ?Fill one half of your plate at each meal with fruits and vegetables. ?Fill one fourth of your plate at each meal with whole grains. Whole grains include whole-wheat pasta, brown rice, and whole-grain bread. ?Eat or drink low-fat dairy products, such as skim milk or low-fat yogurt. ?Fill one fourth of your plate at each meal with low-fat (lean) proteins. Low-fat proteins include fish, chicken without skin, eggs, beans, and tofu. ?Avoid fatty meat, cured and processed meat, or chicken with skin. ?Avoid pre-made or processed food. Eat less than 1,500 mg of salt each day. Do not drink alcohol if: ?Your doctor tells you not to drink. ?You are , may be , or are planning to become . If you drink alcohol: ?Limit how much you use to: ?0 1 drink a day for women. ?0 2 drinks a day for men. ?Be aware of how much alcohol is in your drink. In the [place] one drink equals one 12 oz bottle of beer (355 mL), one 5 oz glass of wine (148 mL), or one 1 oz glass of hard liquor (44 mL). Lifestyle Work with your doctor to stay at a healthy weight or to lose weight. Ask your doctor what the best weight is for you. Get at least 30 minutes of exercise most days of the week. This may include walking, swimming, or biking. Get at least 30 minutes of exercise that strengthens your muscles (resistance exercise) at least 3 days a week. This may include lifting weights or doing Pilates. Do not use any products that contain nicotine or tobacco, such as cigarettes, e-cigarettes, and chewing tobacco. If you need help quitting, ask your doctor. Check your blood pressure at home as told by your doctor. Keep all follow-up visits as told by your doctor. This is important. Medicines Take ldvu-bua-azaovji and prescription medicines only as told by your doctor. Follow directions carefully. Do not skip doses of blood pressure medicine. The medicine does not work as well if you skip doses. Skipping doses also puts you at risk for problems. Ask your doctor about side effects or reactions to medicines that you should watch for. Contact a doctor if you: Think you are having a reaction to the medicine you are taking. Have headaches that keep coming back (recurring). Feel dizzy. Have swelling in your ankles. Have trouble with your vision. Get help right away if you: Get a very bad headache. Start to feel mixed up (confused). Feel weak or numb. Feel faint. Have very bad pain in your: ?Chest. ?Belly (abdomen). Throw up more than once. Have trouble breathing. Summary Hypertension is another name for high blood pressure. High blood pressure forces your heart to work harder to pump blood. For most people, a normal blood pressure is less than 120/80. Making healthy choices can help lower blood pressure. If your blood pressure does not get lower with healthy choices, you may need to take medicine. This information is not intended to replace advice given to you by your health care provider. Make sure you discuss any questions you have with your health care provider. Document Released: 10/14/2008 Document Revised: 01/06/2019 Document Reviewed: 01/06/2019 [employer] Patient Education 2020 [employer]. Follow Up Care 07/03/2021 16:48:31 With:Deonte ROSARIO MD, [facility] Address: [address], [place] [address]- When:Within 3 Month(s) [facility] 01-05-2020 Evaluation + Plan note Future Appointments Appointment Date:01/01/2022 09:00:00 AM Scheduled Provider: [facility] Type:CV Echo (FT) Appointment Date:01/04/2022 02:00:00 PM Scheduled Provider:Juancho Contreras MD [facility] Type:Cardiology Follow Up (FT) Appointment Date:01/22/2022 10:00:00 AM Scheduled Provider:Deonte ROSARIO MD Location:[facility] Appointment Type:FM Open Appointment Date:01/30/2022 10:30:00 AM Scheduled Provider:Rosette HARE MD Location:[facility] Appointment Type:BADH Follow Up Future Scheduled UstqeSgyM3c 03/13/21CBC w/ Auto Diff 03/13/21Comprehensive Metabolic Panel 03/13/21Lipid Panel 03/13/21Echo Transthoracic Complete 01/01/22 [facility] Evaluation + Plan note Future Appointments Appointment Date:01/22/2022 10:00:00 AM Scheduled Provider:Deonte ROSARIO MD Location:[facility] Appointment Type:FM Open Future Scheduled TiekpUakV7x 03/13/21CBC w/ Auto Diff 03/13/21Comprehensive Metabolic Panel 03/13/21Lipid Panel 03/13/21 [facility] Evaluation + Plan note Future Appointments Appointment Date:12/14/2021 10:30:00 AM Scheduled Provider: [facility] Type:Cardiology Nurse Visit (FT) Appointment Date:01/04/2022 02:00:00 PM Scheduled Provider:Juancho Contreras MD [facility] Type:Cardiology Follow Up (FT) Appointment Date:01/22/2022 10:00:00 AM Scheduled Provider:Deonte ROSARIO MD Location:[facility] Appointment Type:FM Open Appointment Date:01/30/2022 10:30:00 AM Scheduled Provider:Rosette HARE MD Location:[facility] Appointment Type:BADH Follow Up Future Scheduled XvjulKymX1d 11/2/21CBC w/ Auto Diff 11/2/21Comprehensive Metabolic Panel 112/21Lipid Panel 03/13/21Echo Transthoracic Complete 11/30/21 [facility] Evaluation + Plan note Future Appointments Appointment Date:01/18/2022 01:30:00 PM Scheduled Provider:Juancho Contreras MD [facility] Type:Cardiology Follow Up (FT) Appointment Date:01/22/2022 10:00:00 AM Scheduled Provider:Deonte ROSARIO MD Location:[facility] Appointment Type:FM Open Appointment Date:01/30/2022 10:30:00 AM Scheduled Provider:Rosette HARE MD Location:[facility] Appointment Type:BAD Follow Up Future Scheduled QryarEymA9i 112/21CBC w/ Auto Diff //21Comprehensive Metabolic Panel 03/13/21Lipid Panel 03/13/21 [facility] Evaluation + Plan note Future Appointments Appointment Date:01/22/2022 10:00:00 AM Scheduled Provider:Deonte ROSARIO MD Location:[facility] Appointment Type:FM Open Appointment Date:01/30/2022 10:30:00 AM Scheduled Provider:Rosette HARE MD Location:[facility] Appointment Type:BADH Follow Up Appointment Date:05/16/2022 01:15:00 PM Scheduled Provider:Juancho Contreras MD [facility] Type:Cardiology Follow Up (FT) Future Scheduled XpdvaRyjY8n 11/2/21CBC w/ Auto Diff 11/2/21Comprehensive Metabolic Panel 11/2/21Lipid Panel 2/21Lipid Panel 01/18/22 [facility] Evaluation + Plan note Future Appointments Appointment Date:01/30/2022 10:30:00 AM Scheduled Provider:Rosette HARE MD Location:[facility] Appointment Type:BADH Follow Up Appointment Date:05/01/2022 10:00:00 AM Scheduled Provider:Deonte ROSARIO MD Location:[facility] Appointment Type:FM Open Appointment Date:05/16/2022 01:15:00 PM Scheduled Provider:Juancho Contreras MD Location[facility] Appointment Type:Cardiology Follow Up (FT) Future Scheduled BcagnNvtW9j 01/22/2207AohV6v 03/13/21CBC w/ Auto Diff 01/22/22CBC w/ Auto Diff 03/13/21Comprehensive Metabolic Panel 01/22/22Comprehensive Metabolic Panel 03/13/21Lipid Panel 01/22/22Lipid Panel 03/13/21Lipid Panel 01/18/22 [facility] Evaluation + Plan note Future Appointments Appointment Date:02/18/2022 02:30:00 PM Scheduled Provider: Location:[facility] Appointment Type:Surgery FT Appointment Date:05/01/2022 10:00:00 AM Scheduled Provider:Deonte ROSARIO MD Location:[facility] Appointment Type: Open Appointment Date:05/16/2022 01:15:00 PM Scheduled Provider:Juancho Contreras MD [facility] Type:Cardiology Follow Up (FT) Future Scheduled UmdfyGgwG0s 01/22/2292OktU3y 03/13/21IgA, Quant. 01/30/22t-Transglutaminase IgA 01/30/22CBC w/ Auto Diff 01/22/22CBC w/ Auto Diff 03/13/21Comprehensive Metabolic Panel 01/22/22Comprehensive Metabolic Panel 03/13/21GGT 01/30/22Lipid Panel 01/22/22Lipid Panel 03/13/21Lipid Panel 01/18/22Reticulocyte Count 01/30/22Thyroid Stimulating Hormone 01/30/22 [facility] Evaluation + Plan note Future Appointments Appointment Date:05/01/2022 10:00:00 AM Scheduled Provider:Deonte ROSARIO MD Location:[facility] Appointment Type:FM Open Appointment Date:05/16/2022 01:15:00 PM Scheduled Provider:Juancho Contreras MD [facility] Type:Cardiology Follow Up (FT) Future Scheduled FalusUmtQ6a 01/22/22IgA, Quant. 01/30/22t-Transglutaminase IgA 01/30/22CBC w/ Auto Diff 01/22/22Comprehensive Metabolic Panel 01/22/22GGT 01/30/22Lipid Panel 01/22/22Lipid Panel 01/18/22Reticulocyte Count 01/30/22Thyroid Stimulating Hormone 01/30/22 [facility] Evaluation + Plan note Future Appointments Appointment Date:05/16/2022 01:15:00 PM Scheduled Provider:Juancho Contreras MD [facility] Type:Cardiology Follow Up (FT) Appointment Date:07/31/2022 01:00:00 PM Scheduled Provider: Location:[facility] Appointment Type: Medicare Wellness Initial Appointment Date:07/31/2022 02:00:00 PM Scheduled Provider:Deonte ROSARIO MD Location:[facility] Appointment Type: Open Future Scheduled GcwbdFmfO8c 01/22/22IgA, Quant. 01/30/22t-Transglutaminase IgA 01/30/22CBC w/ Auto Diff 01/22/22Comprehensive Metabolic Panel 01/22/22GGT 01/30/22Lipid Panel 01/22/22Lipid Panel 01/18/22Reticulocyte Count 01/30/22Thyroid Stimulating Hormone 01/30/22 [facility] Evaluation + Plan note Future Appointments Appointment Date:07/31/2022 01:00:00 PM Scheduled Provider: Location:[facility] Appointment Type: Medicare Wellness Initial Appointment Date:07/31/2022 02:00:00 PM Scheduled Provider:Deonte ROSARIO MD Location:[facility] Appointment Type:FM Open Future Scheduled TydynRcoB5l 01/22/22IgA, Quant. 01/30/22t-Transglutaminase IgA 01/30/22CBC w/ Auto Diff 01/22/22Comprehensive Metabolic Panel 01/22/22GGT 01/30/22Lipid Panel 01/22/22Lipid Panel /10/01Lipid Panel /01/31Reticulocyte Count 01/30/22Thyroid Stimulating Hormone 01/30/22NM Myocardial Spect Rest/Stress 1 Day 05/16/22 [facility] Evaluation + Plan note Future Appointments Appointment Date:11/22/2022 01:40:00 PM Scheduled Provider:Deonte ROSARIO MD Location:[facility] Appointment Type: Open Appointment Date:08/01/2023 01:00:00 PM Scheduled Provider: Location:[facility] Appointment Type: Medicare Wellness Subsequent Future Scheduled JtprcNlaG3q 01/22/22IgA, Quant. 01/30/22t-Transglutaminase IgA 01/30/22CBC w/ Auto Diff 01/22/22Comprehensive Metabolic Panel 01/22/22GGT 01/30/22Lipid Panel 01/22/22Lipid Panel /10/01Lipid Panel /01/31Reticulocyte Count 01/30/22Thyroid Stimulating Hormone 01/30/22NM Myocardial Spect Rest/Stress 1 Day 07/08/22 [facility] Evaluation + Plan note Future Appointments Appointment Date:03/04/2023 01:20:00 PM Scheduled Provider:Deonte ROSARIO MD Location:[facility] Appointment Type: Open Appointment Date:08/01/2023 01:00:00 PM Scheduled Provider: Location:[facility] Appointment Type: Medicare Wellness Subsequent Future Scheduled RclzwSqdB8l 01/22/22IgA, Quant. 01/30/22t-Transglutaminase IgA 01/30/22CBC w/ Auto Diff 01/22/22Comprehensive Metabolic Panel 01/22/22GGT 01/30/22Lipid Panel 01/22/22Lipid Panel 1/10/01Lipid Panel 9/01/31Reticulocyte Count 01/30/22Thyroid Stimulating Hormone 01/30/22NM Myocardial Spect Rest/Stress 1 Day 07/08/22 [facility] Evaluation + Plan note Future Appointments Appointment Date:02/10/2023 01:30:00 PM Scheduled Provider: Location:[facility] Appointment Type:Surgery FT Appointment Date:03/04/2023 01:20:00 PM Scheduled Provider:Deonte ROSARIO MD Location:[facility] Appointment Type: Open Appointment Date:04/11/2023 09:40:00 AM Scheduled Provider: Location:[facility] Appointment Type: Nurse Visit Appointment Date:08/01/2023 01:00:00 PM Scheduled Provider: Location:[facility] Appointment Type: Medicare Wellness Subsequent Future Scheduled TestsLipid Panel 05/16/22NM Myocardial Spect Rest/Stress 1 Day 07/08/22 [facility] Evaluation + Plan note Future Appointments Appointment Date:03/04/2023 01:20:00 PM Scheduled Provider:Deonte ROSARIO MD [facility] Type: Open Appointment Date:04/11/2023 09:40:00 AM Scheduled Provider: Location:[facility] Appointment Type: Nurse Visit Appointment Date:08/01/2023 01:00:00 PM Scheduled Provider: Location:[facility] Appointment Type: Medicare Wellness Subsequent Future Scheduled TestsCBC w/ Auto Diff 02/08/23Comprehensive Metabolic Panel 02/08/23Ferritin 02/08/23Folate Level 02/08/23Iron Level 02/08/23Iron Percent Saturation 02/08/23Lipid Panel 05/16/22Reticulocyte Count 02/08/23Vitamin B12 Level 02/08/23NM Myocardial Spect Rest/Stress 1 Day 07/08/22 [facility] Evaluation + Plan note Future Appointments Appointment Date:04/11/2023 09:40:00 AM Scheduled Provider: [facility] Appointment Type:FM Nurse Visit Appointment Date:06/04/2023 12:00:00 PM Scheduled Provider:Deonte ROSARIO MD Location:[facility] Appointment Type: Open Appointment Date:08/01/2023 01:00:00 PM Scheduled Provider: Location:[facility] Appointment Type: Medicare Wellness Subsequent Future Scheduled JpluzNjiG0w 03/04/23CBC w/ Auto Diff 03/04/23CBC w/ Auto Diff 02/08/23Comprehensive Metabolic Panel 03/04/23Comprehensive Metabolic Panel 02/08/23Ferritin 03/04/23Ferritin 02/08/23Folate Level 03/04/23Folate Level 02/08/23Iron Level 03/04/23Iron Level 02/08/23Iron Percent Saturation 02/08/23Lipid Panel 10Lipid Panel 05/16/22Reticulocyte Count 03/04/23Reticulocyte Count 02/08/23Vitamin B12 Level 03/04/23Vitamin B12 Level 02/08/23NM Myocardial Spect Rest/Stress 1 Day 07/08/22 [facility] Evaluation + Plan note Future Appointments Appointment Date:04/15/2023 01:40:00 PM Scheduled Provider:Brunilda Redding CNP Location:[facility] Appointment Type:BADH Follow Up Appointment Date:06/04/2023 12:00:00 PM Scheduled Provider:Deonte ROSARIO MD Location:[facility] Appointment Type: Open Appointment Date:08/01/2023 01:00:00 PM Scheduled Provider: Location:[facility] Appointment Type: Medicare Wellness Subsequent Future Scheduled WkiujIvaH7c 03/04/23CBC w/ Auto Diff 03/04/23CBC w/ Auto Diff 02/08/23Comprehensive Metabolic Panel 03/04/23Comprehensive Metabolic Panel 02/08/23Ferritin 03/04/23Ferritin 02/08/23Folate Level 03/04/23Folate Level 02/08/23Iron Level 10Iron Level 02/08/23Iron Percent Saturation 02/08/23Lipid Panel 03/04/23Lipid Panel 05/16/22Reticulocyte Count 03/04/23Reticulocyte Count 02/08/23Vitamin B12 Level 03/04/23Vitamin B12 Level 02/08/23NM Myocardial Spect Rest/Stress 1 Day 07/08/22 [facility] Evaluation note Diagnosis 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) Coronary artery disease involving [place] coronary artery of [place] heart Primary hypertension Unspecified essential hypertension Lung nodule, solitary, 8 mm documented in this encounter SARAH [facility]ETH LE[facility] Work Phone: Hospital course Narrative No data available for this section [facility] Hospital Discharge instructions No data available for this section [facility] No data available for this section [facility] Center[facility] for referral (narrative) Referred by: Deonte ROSARIO MD [facility] Primary [facility] Summary Purpose Family History No Family History Records FoundNo Family History Records FoundNo Family History Records Found No data available for this section No data available for this section No data available for this section No data available for this section No Family History Records Found Advance Directives No Advanced Directives Records FoundLatest Code Status on File Code Status Date Activated Date Inactivated Comments Full Code 06/17/2022 7:32 AM Full Code 06/17/2022 7:32 AM 06/17/2022 7:32 AM Healthcare Agents on File Name Relationship Healthcare Agent Relationshi p Communication Milena Matter Other Primary Decision Maker Additional Source Comments INFORMATION SOURCE (unrecogn ized section and content) DATE CREATED AUTHOR 11/28/2020 [facility] DATE CREATED AUTHOR AUTHOR'S ORGANIZ ATION 06/21/2022 [facility] DATE CREATED AUTHOR AUTHOR'S ORGANIZ ATION 09/20/2022 [facility] DATE CREATED AUTHOR AUTHOR'S ORGANIZ ATION 05/02/2023 [facility] Care Team (unrecognized sect ion and content) 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 Relationship Specialty Start Date End Date Deonte Rosario MD [address] [place] [address] PCP - General Internal Medicine 06/12/22 Ordered Prescriptions (unrec ognized section and content) Prescription Sig Dispensed Refills Start Date End Da te predniSONE (DELTASONE) 20 MG tablet Take 1 tablet by mouth daily for 3 doses 3 tablet 0 06/20/2022 06/23/2022 carvedilol (COREG) 12.5 MG tablet Take 2 tablets by mouth 2 times daily (with meals) 60 tablet 3 06/19/2022 Scheduled Active and Recently Administ ered Medications (unrecognized section and content) Medication Order 06/18/2022 06/19/2022 06/20/2022 aspirin EC tablet 81 mg 81 mg, Oral, DAILY, First dose on Fri06/17/22 at 1130, Until Discontinued, Do not crush or break. 09 (Given - Provider: Juana Moralez RN) 0849 (Given - Provider: Damien Villar RN) 0804 (Given - Provider: Corby Robledo, TOMASZ) atorvastatin (LIPITOR) tablet 80 mg 80 mg, Oral, NIGHTLY, First dose on Fri06/17/22 at 2100, Until Discontinued 2029 (Given - Provider: Brigid Murphy RN) 195 (Given - Provider: Brigid Murphy RN) 2100 (Due) carvedilol (COREG) tablet 12.5 mg 12.5 mg, Oral, 2 TIMES DAILY WITH MEALS, First dose (after last modification) on Fri06/18/22 at 1700, Until Discontinued, Administer with food to minimize the risk of orthostatic hypotension 1823 (Given - Provider: Juana Moralez RN) 0849 (Given - Provider: Damien Villar RN)1748 (Given - Provider: Damien Villar RN) 0804 (Given - Provider: Corby Robledo, TOMASZ)1700 (Due) carvedilol (COREG) tablet 6.25 mg (CANCELED) 6.25 mg, Oral, 2 TIMES DAILY WITH MEALS, First dose on Fri06/17/22 at 1330, Until Discontinued, Administer with food to minimize the risk of orthostatic hypotension 912 (Given - Provider: Juana Moralez, TOMASZ) cloNIDine (CATAPRES) tablet 0.1 mg 0.1 mg, Oral, 2 TIMES DAILY, First dose on Fri06/17/22 at 1130, Until Discontinued 912 (Given - Provider: Juana Moralez RN)2030 (Given - Provider: Brigid Murphy RN) 0849 (Given - Provider: Damien Villar, TOMASZ)1952 (Given - Provider: Brigid Murphy, TOMASZ) 0804 (Given - Provider: Corby Robledo RN)2100 (Due) enoxaparin Sodium (LOVENOX) injection 30 mg 30 mg, SubCUTAneous, DAILY, First dose (after last modification) on Fri06/17/22 at 1130, Until Discontinued, Indication of Use: Prophylaxis-DVT/PE 0914 (Given - Provider: Juana Moralez RN) 0849 (Given - Provider: Damien Villar, TOMASZ) 0804 (Given - Provider: Corby Robledo, TOMASZ) famotidine (PEPCID) 20 mg in sodium chloride (PF) 0.9 % 10 mL injection 20 mg, IntraVENous, DAILY, First dose (after last modification) on Fri06/17/22 at 1130, Until Discontinued, IV Push over minimum of 2 minutes - Dilute with 10 mL NS 0911 (Given - Provider: Juana Moralez RN) 0849 (Given - Provider: Damien Villar, TOMASZ) 0804 (Given - Provider: Corby Robledo RN) isosorbide mononitrate (IMDUR) extended release tablet 15 mg 15 mg, Oral, DAILY, First dose on Fri06/17/22 at 1130, Until Discontinued 0913 (Given - Provider: Juana Moralez RN) 0849 (Given - Provider: Damien Villar RN) 0804 (Given - Provider: Corby Robledo RN) magnesium sulfate 2000 mg in 50 mL IVPB premix (COMPLETED) 2,000 mg, IntraVENous, at 100 mL/hr, Administer over 30 Minutes, ONCE, On Fri06/19/22 at 0630, For 1 dose, Recommended infusion rate of 1 gram/hour. 0626 (New Bag - Provider: Brigid Murphy RN)0628 (Rate/Dose Verify - Provider: Brigid Murphy RN)0650 (Rate/Dose Verify - Provider: Brigid Murphy, RN)0658 (Stopped - Provider: Brigid Murphy RN) methylPREDNISolone sodium (SOLU-MEDROL) injection 30 mg (CANCELED) 30 mg, IntraVENous, DAILY, First dose on Fri06/18/22 at 1330 1417 (Given - Provider: Juana Moralez RN) 0849 (Given - Provider: Damien Villar, TOMASZ) oxyCODONE (ROXICODONE) immediate release tablet 5 mg (COMPLETED) 5 mg, Oral, ONCE, 1 dose, On Shante 06/20/22 at 0200 0236 (Given - Provider: Brigid Murphy RN) polyethylene glycol (GLYCOLAX) packet 17 g 17 g, Oral, DAILY, First dose (after last modification) on Fri06/19/22 at 0900, Until Discontinued, First line therapy for constipation 0857 (Given - Provider: Damien Villar RN) 0804 (Given - Provider: Corby Robledo RN) predniSONE (DELTASONE) tablet 20 mg 20 mg, Oral, DAILY, 3 doses, First dose on Shante 06/20/22 at 0900, Last dose on 06/22/22 at 0900 0804 (Given - Provider: Corby Robledo RN) sodium chloride flush 0.9 % injection 5-40 mL 5-40 mL, IntraVENous, EVERY 12 HOURS SCHEDULED (2 times per day), First dose on Fri06/17/22 at 0900, Until Discontinued, For Line Patency: Peripheral IV = 5 mL; Midline or Central Line = 10 mL/lumen. If following IV push medication, administer flush at same rate as the IV push. Flush volume is determined by type of infusion therapy being given. For non-viscous solutions use: Peripheral IV = 5 mL Midline or Central Line = 10 mL/lumen For viscous solutions (i.e. blood components, parenteral nutrition, contrast media, or after obtaining blood sample) use: Peripheral IV = 10 mL Midline or Central Line = 20 mL/lumen 0914 (Given - Provider: Juana Moralez RN)2030 (Given - Provider: Brigid Murphy, TOMASZ) 0850 (Given - Provider: Damien Villar, TOMASZ)1952 (Given - Provider: Brigid Murphy, TOMASZ) 0805 (Not Given - Provider: Corby Robledo RN - Reason: Other - Comment: lda removed)2100 (Due) ticagrelor (BRILINTA) tablet 90 mg 90 mg, Oral, 2 TIMES DAILY, First dose on Fri06/17/22 at 1130, Until Discontinued, ANTIPLATELET! 0913 (Given - Provider: Juana Moralez RN)2030 (Given - Provider: Brigid Murphy RN) 0849 (Given - Provider: Damien Villar, RN)1951 (Given - Provider: Brigid Murphy, TOMASZ) 08 (Given - Provider: Corby Robledo RN)2100 (Due) PRN Medication Order 06/18/2022 06/19/2022 06/20/2022 0.9 % sodium chloride infusion IntraVENous, at 5-250 mL/hr, PRN, if patient receiving piggyback infusions and maintenance fluids are not ordered OR KVO fluids to protect IV site / prevent frequent line interruptions/ long duration, Starting on Fri06/17/22 at 0830, For piggyback infusion, administer at same rate as piggyback for a total of 25 mL. Enter 25 mL into dose field and piggyback rate into rate field of order. If piggyback is infusing at a rate less than 100 mL/hr, enter 25 mL into dose field and 100 mL/hr into rate field of order. For KVO fluids, enter rate of 20 mL/hr or less into rate field of order. 0625 (New Bag - Provider: Brigid Murphy RN)0628 (Stopped - Provider: Brigid Murphy RN)0702 (Rate/Dose Verify - Provider: Brigid Murphy RN)0738 (Stopped - Provider: Damien Villar, TOMASZ) acetaminophen (TYLENOL) suppository 650 mg(Linked Group 1) 650 mg, Rectal, EVERY 6 HOURS PRN, Starting on Fri06/17/22 at 0729, Until Discontinued, Pain Mild (1-3), Fever, For temp greater than 100.4 F (38 C), Administer if oral route cannot be used. 236 (See Alternative - Provider: Brigid Murphy RN)1952 (See Alternative - Provider: Brigid Murphy RN) acetaminophen (TYLENOL) tablet 650 mg(Linked Group 1) 650 mg, Oral, EVERY 6 HOURS PRN, Starting on Fri06/17/22 at 0729, Until Discontinued, Pain Mild (1-3), Fever, For temp greater than 100.4 F (38 C), Maximum dose of acetaminophen is 4000 mg from all sources in 24 hours. 0237 (Given - Provider: Brigid Murphy RN)1952 (Given - Provider: Brigid Murphy RN) diphenhydrAMINE (BENADRYL) injection 25 mg 25 mg, IntraVENous, EVERY 6 HOURS PRN, Starting on Fri06/17/22 at 0824, Until Discontinued, Other, throat swelling labetalol (NORMODYNE;TRANDATE) injection 10 mg 10 mg, IntraVENous, EVERY 4 HOURS PRN, Starting on Fri06/17/22 at 0828, Until Discontinued, High Blood Pressure, sbp> 160 ondansetron (ZOFRAN) injection 4 mg(Linked Group 2) 4 mg, IntraVENous, EVERY 6 HOURS PRN, Starting on Fri06/17/22 at 0729, Until Discontinued, Nausea, Vomiting, Administer if oral route cannot be used. ondansetron (ZOFRAN-ODT) disintegrating tablet 4 mg(Linked Group 2) 4 mg, Oral, EVERY 8 HOURS PRN, Starting on Fri06/17/22 at 0729, Until Discontinued, Nausea, Vomiting polyvinyl alcohol (LIQUIFILM TEARS) 1.4 % ophthalmic solution 1 drop 1 drop, Both Eyes, PRN, Starting on Fri06/19/22 at 0444, Until Discontinued, Dry Eyes, Substituted for cycloSPORINE (RESTASIS). 1113 (Given - Provider: Damien Villar RN)1950 (Given - Provider: Brigid Murphy RN) sodium chloride flush 0.9 % injection 5-40 mL 5-40 mL, IntraVENous, PRN, Starting on Fri06/17/22 at 0830, Until Discontinued, Line Care, After every IV line use, For Line Patency: Peripheral IV = 5 mL; Midline or Central Line = 10 mL/lumen. If following IV push medication, administer flush at same rate as the IV push. Flush volume is determined by type of infusion therapy being given. For non-viscous solutions use: Peripheral IV = 5 mL Midline or Central Line = 10 mL/lumen For viscous solutions (i.e. blood components, parenteral nutrition, contrast media, or after obtaining blood sample) use: Peripheral IV = 10 mL Midline or Central Line = 20 mL/lumen traZODone (DESYREL) tablet 25 mg 25 mg, Oral, NIGHTLY PRN, Starting on Fri06/17/22 at 2100, Until Discontinued, Sleep 2030 (Given - Provider: Brigid Murphy, TOMASZ) 1951 (Given - Provider: Brigid Murphy RN) Linked Groups Order Group 1: acetaminophen (TYLENOL) tablet 650 mgJump to med 650 mg, Oral, EVERY 6 HOURS PRN, Starting on Fri06/17/22 at 0729, Until Discontinued, Pain Mild (1-3), Fever, For temp greater than 100.4 F (38 C)
Maximum dose of acetaminophen is 4000 mg from all sources in 24 hours.
Or acetaminophen (TYLENOL) suppository 650 mgJump to med 650 mg, Rectal, EVERY 6 HOURS PRN, Starting on Fri06/17/22 at 0729, Until Discontinued, Pain Mild (1-3), Fever, For temp greater than 100.4 F (38 C)
Administer if oral route cannot be used.
Group 2: ondansetron (ZOFRAN-ODT) disintegrating tablet 4 mgJump to med 4 mg, Oral, EVERY 8 HOURS PRN, Starting on Fri06/17/22 at 0729, Until Discontinued, Nausea, Vomiting Or ondansetron (ZOFRAN) injection 4 mgJump to med 4 mg, IntraVENous, EVERY 6 HOURS PRN, Starting on Fri06/17/22 at 0729, Until Discontinued, Nausea, Vomiting
Administer if oral route cannot be used.
FOR RECORDS PERTAINING TO PATIENTS WHO ARE OR HAVE BEEN ENROLLED IN A CHEMICAL DEPENDENCY/SUBSTANCEABUSE PROGRAM, SOME INFORMATION MAY BE OMITTED. This clinical summary was aggregated from multiple sources. Caution should be exercised in using it in the provision of clinical care. This summary normalizes information from multiple sources, and as a consequence, information in this document may materially change the coding, format and clinical context of patient data. In addition, data may be omitted in some cases. CLINICAL DECISIONS SHOULD BE BASED ON THE PRIMARY CLINICAL RECORDS. [employer] provides no warranty or guarantee of the accuracy or completeness of information in this document.
[2023-05-17 18:38] LABS: Influenza Virus A Antigen Negative; Influenza Virus B Antigen Negative; Internal Control Within Normal Limits; SARS-CoV-2 Ag NEGATIVE (NEGATIVE)
[2023-05-17] MEDS: ALBUTEROL SULFATE 200 PUFF/6.7 GM INHALER IH (19:06)
[2023-05-17] MEDS: AZITHROMYCIN 250 MG TABLET 500 MG PO (19:06)
== END 2023-05-17 20:30 | disposition home or self-care (01) ==
PROVIDERS: Emergency Provider Emergency Medicine Emergency Medical Services
DX: J40 Bronchitis, not specified as acute or chronic (principal); Z79.899 Other long term (current) drug therapy; Z79.82 Long term (current) use of aspirin; Z20.822 Contact with and (suspected) exposure to COVID-19
CPT/HCPCS: 71045; 87635; 87798; 87804; 87811; 93005; 94640; 99284

== ENCOUNTER 2023-06-15 11:08 | Emergency (ER) | payer MEDICARE, MEDICAID, SELFPAY ==
[2023-06-15 11:14] VITALS: BP 135/67; PULSE 71; RESP 18; TEMP 36.7; O2SAT 97; BMI 23.3
--- NOTE | 2023-06-15 11:27 | ED.EYEPROB1 ---
HPI - Eye Problem General Chief complaint: Eye Problems Stated complaint: EYE PAIN Time Seen by Provider: 06/15/23 11:16 Source: patient Mode of arrival: walk-in Limitations: no limitations History of Present Illness HPI Narrative: 87-year-old female presents for right eye pain and drainage. She states she always has eye pain and has it every day. It was a bit worse today but she had some watery and goopy drainage from her right eye only. No trauma. She has an appointment with an eye doctor in 2 weeks. The pain is moderate to severe and continuous. Related Data Home Medications Medication Instructions Recorded Confirmed amlodipine 5 mg tablet 5 mg PO DAILY 03/26/23 03/26/23 aspirin 81 mg tablet,delayed 81 mg PO DAILY 03/26/23 03/26/23 release (Adult Aspirin Regimen) atorvastatin 80 mg tablet 80 mg PO DAILY 03/26/23 03/26/23 carvedilol 25 mg tablet 25 mg PO Q12H 03/26/23 03/26/23 clonidine HCl 0.1 mg tablet 0.1 mg PO Q12H 03/26/23 03/26/23 cyclosporine 0.09 % eye drops in a 1 drp ophthalmic (eye) Q12H 03/26/23 03/26/23 dropperette (Cequa) docusate sodium 100 mg capsule 100 mg PO BID PRN constipation 03/26/23 03/26/23 (Col-Rite) ferrous sulfate 325 mg (65 mg 325 mg PO DAILY 03/26/23 03/26/23 iron) tablet (Feosol) ipratropium bromide 21 mcg (0.03 intranasal TID PRN allergy symptoms 03/26/23 %) nasal spray isosorbide mononitrate 30 mg 30 mg PO BID 03/26/23 03/26/23 tablet,extended release 24 hr ondansetron HCl 4 mg tablet 4 mg PO Q8H PRN nausea and vomiting 03/26/23 03/26/23 pantoprazole 40 mg tablet,delayed 40 mg PO DAILY 03/26/23 03/26/23 release spironolactone 25 mg tablet 25 mg PO DAILY 03/26/23 03/26/23 ticagrelor 90 mg tablet (Brilinta) 90 mg PO Q12H 03/26/23 03/26/23 trazodone 50 mg tablet 50 mg PO DAILY PRN insomnia 03/26/23 03/26/23 Previous Rx's Medication Instructions Recorded acetaminophen 300 mg-codeine 30 mg 1 tab PO Q6H PRN pain #20 tabs 01/28/23 tablet acetaminophen 300 mg-codeine 30 mg 1 tab PO Q6H PRN pain 5 days #20 06/15/23 tablet tabs erythromycin 5 mg/gram (0.5 %) eye 0.5 inch ophthalmic (eye) TID #3.5 06/15/23 ointment grams Allergies Allergy/AdvReac Type Severity Reaction Status Date / Time Penicillins Allergy Severe Verified 03/26/23 10:06 lisinopril Allergy Unknown Verified 03/26/23 10:06 metaxalone [From Skelaxin] Allergy Unknown Verified 03/26/23 10:06 Review of Systems ROS Narrative A ten point review of systems is negative except as noted above. PFSH PFS Social History Smoking status: Never smoker Exam Narrative Exam Narrative: Nurses note and vital signs reviewed and patient is not hypoxic. General: The patient appears in no apparent distress. Patient is resting comfortably on cart. Skin: Warm, dry, no pallor noted. There is no rash noted. Head: Normocephalic, atraumatic Eye: There is some mild erythema to the right upper eyelid but there is no specific stye. The globe is intact. No periorbital erythema or swelling. Ears, Nose, Mouth, and Throat: oral mucosa is moist. Nares patent. Cardiovascular: Regular Rate and Rhythm Respiratory: Patient is in no distress, no accessory muscle use, lungs are clear to auscultation, no wheezing, rales or rhonchi Back: non-tender GI: Soft and nontender Musculoskeletal: The patient has no evidence of calf tenderness, no pitting edema, symmetrical pulses noted bilaterally Neurological: A&O, normal speech Psychiatric: Cooperative Constitutional Vital Signs, click to edit/add: Last Vital Signs Temp 98.1 F 06/15/23 11:14 Pulse 71 06/15/23 11:14 Resp 18 06/15/23 11:14 BP 135/67 06/15/23 11:14 Pulse Ox 97 06/15/23 11:14 O2 Del Method Room Air 06/15/23 11:14 Course Vital Signs Vital signs: Vital Signs Temperature 98.1 F 06/15/23 11:14 Pulse Rate 71 06/15/23 11:14 Respiratory Rate 18 06/15/23 11:14 Blood Pressure 135/67 06/15/23 11:14 Pulse Oximetry 97 06/15/23 11:14 Oxygen Delivery Method Room Air 06/15/23 11:14 Temperature 98.1 F 06/15/23 11:14 Pulse Rate 71 06/15/23 11:14 Respiratory Rate 18 06/15/23 11:14 Blood Pressure 135/67 06/15/23 11:14 Pulse Oximetry 97 06/15/23 11:14 Oxygen Delivery Method Room Air 06/15/23 11:14 MDM - Eye Problem MDM Narrative Medical decision making narrative: The patient is provided pain medication and erythromycin ointment. She will contact her eye doctor in the morning. I do not suspect acute angle-closure glaucoma or globe injury. I have no suspicion of detached retina. Treatment diagnosis and follow-up were discussed with the patient and her family Differential Diagnosis Differential diagnosis: Likely corneal abrasion, conjunctivitis, acute iritis, subconjunctival hemorrhage and glaucoma Discharge Plan Discharge Chief Complaint: Eye Problems Clinical Impression: Acute right eye pain Patient Disposition: Home, Self-Care Time of Disposition Decision: 11:22 Condition: Good Mode of Transportation: Private Vehicle Prescriptions / Home Meds: New erythromycin 5 mg/gram (0.5 %) ointment 0.5 inch ophthalmic (eye) TID Qty: 3.5 0RF acetaminophen-codeine 300-30 mg tablet 1 tab PO Q6H PRN (Reason: pain) 5 Days Qty: 20 0RF No Action acetaminophen-codeine 300-30 mg tablet 1 tab PO Q6H PRN (Reason: pain) Qty: 20 0RF amlodipine 5 mg tablet 5 mg PO DAILY atorvastatin 80 mg tablet 80 mg PO DAILY carvedilol 25 mg tablet 25 mg PO Q12H clonidine HCl 0.1 mg tablet 0.1 mg PO Q12H Cequa 0.09 % dropperette 1 drp OPHTHALMIC (EYE) Q12H isosorbide mononitrate 30 mg tablet extended release 24 hr 30 mg PO BID pantoprazole 40 mg tablet,delayed release (DR/EC) 40 mg PO DAILY spironolactone 25 mg tablet 25 mg PO DAILY Brilinta 90 mg tablet 90 mg PO Q12H ferrous sulfate [Feosol] 325 mg (65 mg iron) tablet 325 mg PO DAILY aspirin [Adult Aspirin Regimen] 81 mg tablet,delayed release (DR/EC) 81 mg PO DAILY docusate sodium [Col-Rite] 100 mg capsule 100 mg PO BID PRN (Reason: constipation) ipratropium bromide 21 mcg (0.03 %) spray,non-aerosol INTRANASAL TID PRN (Reason: allergy symptoms) ondansetron HCl 4 mg tablet 4 mg PO Q8H PRN (Reason: nausea and vomiting) trazodone 50 mg tablet 50 mg PO DAILY PRN (Reason: insomnia) Instructions: Eye Pain (ED) Additional Instructions: Contact your eye doctor in the morning Stand Alone Forms: Portal Instructions Referrals: Physician,Non-Staff, MD [Primary Care Provider] - 1 week
[2023-06-15] MEDS: ACETAMINOPHEN 300 MG/ 30 MG CODEINE TABLET 1 TAB PO (11:37)
[2023-06-15 11:56] VITALS: BP 140/54; PULSE 71; RESP 18; O2SAT 97
--- OUTSIDE RECORDS SUMMARY | 2023-06-15 12:02 | XMS_ITS | CCD ---
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 Name Role Phone Deonte ROSARIO Primary Care Physician Marline Gutierrez Unavailable Unavailable Deonte Rosario MD Primary Care Provider JONG BENTON Referring Unavailable ADRIAN RILEY Admitting Unavailable ADRIAN RILEY Attending Unavailable DEONET ROSARIO Primary Care Unavailable DR DEONTE ROSARIO Primary Care Unavailable HILARY GONZALES Admitting Unavailable DR JONG TALBERT Consulting Unavailable HILARY GONZALES Attending Unavailable BENJAMIN ROGERS Consulting Unavailable SERGIO [...] [Latex] Drug allergy Eruption of skin (disorder) [facility] (19 sources) metaxalone; Translations: [metaxalone] Drug Allergy 3 Dyspnea (finding) [facility] (19 sources) Penicillin; Translations: [penicillin] Drug Allergy Eruption of skin (disorder), Dyspnea (finding) [facility] (18 sources) Shellfish; Translations: [shellfish] Drug allergy [facility] (9 sources) Lisinopril; Translations: [lisinopril] Drug Allergy 3 Angioedema, Angioedema (disorder) [facility] [employer] Work Phone: (1 source) Penicillins Propensity to adverse reactions to drug 3 [employer] Work Phone: (1 source) metaxalone Drug Allergy [facility] Repository (1 source) Contrast media; Translations: [Contrast Dye] Propensity to adverse reactions (disorder) [facility] Repository (1 source) Povidone-Iodine ; Translations: [Betadine] Drug Allergy [facility] Repository Medications Current Medications Medication Drug Class(es) [...] Daily, # 30 tab(s), Refills(s) 5, Pharmacy: [facility], 162, cm, 11/30/21 15:06:00 EDT, Height/Length Dosing, 62, kg, 11/30/21 15:06:00 EDT, Weight Dosing Start Date: 12/14/21 Status: Ordered atorvastatin 80 mg oral tablet (19 sources) HMG-CoA Reductase Inhibitor Start: 02-13-2021 take 1 tablet by mouth at bedtime atorvastatin 80 mg Tab 80 mg = 1 tab(s), Oral, Bedtime, # 90 tab(s), Refills(s) 0, Pharmacy: [facility], 157, cm, 11/26/20 10:30:00 EDT, Height/Length Dosing, 68, kg, 11/26/20 10:30:00 EDT, Weight Dosing Start Date: 02/13/21 Status: Ordered carvedilol 25 mg oral tablet (10 sources) alpha-Adrenergic Nelly, beta-Adrenergic Nelly Start: 07-10-2022 take 1 tablet by mouth twice daily carvedilol 25 mg Tab 25 mg = 1 tab(s), Oral, BID, # 180 tab(s), Refills(s) 3, Pharmacy: [facility], 162, cm, 07/08/22 10:29:00 EST, Height/Length Dosing, 62.8, kg, 07/08/22 10:29:00 EST, Weight Dosing Start Date: 07/10/22 Status: Ordered Start: 06-19-2022 take 2 tablets by mo [facility] twice daily at mealtime carvedilol (COREG) 12.5 [...] BID, # 180 tab(s), Refills(s) 3, Pharmacy: [facility], 157, cm, 12/22/19 12:26:00 EDT, Height/Length [...] (17 sources) Anticholinergic Start: 01-24-2021 Atrovent 0.03% Patterson 2 spray(s), Nasal, TID Other (see comment), [...] BID, # 60 tab(s), Refills(s) 11, Pharmacy: [facility], 157.5, cm, 07/31/22 13:30:00 EDT, Height/Length [...] BID, # 30 tab(s), Refills(s) 5, Pharmacy: [facility], 162, cm, 10/31/20 13:58:00 EDT, Height/Length Dosing, 64, kg, 10/31/20 13:58:00 EDT, Weight Dosing Start Date: 11/02/20 Status: Ordered Start: 11-02-2020 take 1 tablet by laurie th once daily in the morning isosorbide mononitrate 30 mg ER Tab 30 mg = 1 tab(s), Oral, qAM, # 30 tab(s), Refills(s) 5, Pharmacy: [place] [id number], 162, cm, 10/31/20 13:58:00 EDT, Height/Length Dosing, [...] BID, # 90 tab(s), Refills(s) 0, Pharmacy: [facility], 157, cm, 11/26/20 10:30:00 EDT, Height/Length [...] # 270 tab(s), Refills(s) 3, [facility], 157, cm, 03/30/20 14:40:00 EST, Height/Length [...] Daily, # 90 tab(s), Refills(s) 3, Pharmacy: [facility], 157, cm, 03/30/20 14:40:00 EST, Height/Length Dosing, 66.2, kg, 03/30/20 14:40:00 EST, Weight Dosing Start Date: 03/30/20 Status: Ordered polyethylene glycol 3350 08255 mg powder for oral solution (19 sources) [...] Daily, # 30 tab(s), Refills(s) 5, Pharmacy: [facility], 157, cm, 03/13/21 13:41:00 EDT, Height/Length [...] day(s), # 21 tab(s), Refills(s) 0, Pharmacy: [facility], 157, cm, 02/07/23 13:05:00 EDT, Height/Length [...] Coronary atherosclerosis; Translations: [Atherosclerotic heart disease of [place] coronary artery without angina pectoris] Onset: 01-22-2022 [...] current use of drug therapy; Translations: [Other custodial (current) drug therapy] Onset: 07-31-2022 Episodic Other [...] Onset: 06-18-2022 Episodic Other aftercare (1 source) [facility] (current) use of aspirin; Translations: [LONGTERM CURRENT USE OF ASPIRIN] Onset: 06-18-2022 Episodic Other aftercare (1 source) 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 00TIFF [facility] Recordson 05-01 [facility] Records [id number]#1.0 0TIFF [facility] Recordson 04-29 [facility] Records [id number]#1.0 0TIFF [facility] Records [id number]#1.0 0TIFF [facility] ED Note-Physicianon 04-17-20 ED Note-Physician [id number]#1.0 0TIFF [facility] Consent for Procedure/Surger yon 04-16-2023 Consent for Procedure/Surgery [id number]#1.0 0TIFF [facility] Ambulatory Visit Summaryon 1 06-16-2022 Ambulatory Visit [...] enteric coated tablet) ipratropium nasal (Atrovent 0.03% Patterson) isosorbide mononitrate (isosorbide mononitrate 30 mg ER [...] EST With: PAULO HINOJOSA, Deonte Turpin Where: [facility] Normal [address], [place] [address]- \.br\ You Need to Schedule the Following [...] alkaline phosphatase level, pp_set_radiology_ subspecialty, Not Required, [facility]\.br\ Medications\.br\ What How Much When Why [...] concerns \.br\ Unchanged ipratropium nasal (Atrovent 0.03% Patterson) 2 Sprays Nasal Inhalation 3 times a [...] Cardiac arrest\.br\ COPD\.br\ Glaucoma\.br\ H/O: TIA\.br\ HEMATURIA\.br\ HI - myocardial infarction\.br\ STEMI - ST elevation [...] under a microscope (bone marrow biops [facility] Gastroenterology Office/Clin ic Noteon 04-15-2023 Gastroenterology Office/Clinic Note Chief Complaint ER follow up. HPI Staff This is a 87 year old female who presents today for a follow up from [facility] ER on 03/26/23. Patient was advised to go to ED for anemia per Dr Rosario. Patient was seen by Dr Peres for office visit 12/10/22 and had EGD 02/10/23. History of Present Illness Patient is a 87-year-old female who presents for further evaluation following ED visit at outside facility?[facility]. Review of outside record from [facility] indicated patient was evaluated 03/26/2023 and had low RBC of 2.92, H&H of 8.4/27.3, elevated BUN of 27, elevated creatinine of 1.46, elevated alkaline phosphatase of 124. [facility] indicated [facility]. Previous labs 03/22/23 revealed low H/H [...] Anemia, unspecified) Review of outside record from [facility] indicated patient was evaluated 03/26/2023 and [...] related to poor prep. Discussed referral to [facility] regarding large HH as large HH [...] or gangrene) Review of outside record from [facility] indicated patient was evaluated 03/26/2023 and had H&H of 8.4/27.3, elevated BUN of 27, elevated creatinine of 1.46, elevated alkaline phosphatase of 124. Review of record indicates patient had previous EGD 02/10/[address] Peres that revealed very large hiatal hernia, mild Schatzki's ring?dilated, lesions in stomach, normal duodenum, no biopsies. Discussed referral to [facility] regarding large HH as large HH [...] vs. r (more content not included)... Normal [facility] Comment on above: Result Comment: Elec tronically Signed By: Brunilda Redding CNP\.michael\Date and Time Signed: 04/15/23 14:32 EST [facility] Recordson 04-15 [facility] Records [id number]#1.0 0TIFF Normal [facility] Patient Educationon 04-15-20 Patient Education Hematology Anemia [...] Follow these instructions at home: ? Take wsvr-khp-hitlpxm and prescription medicines only as told by [...] provider. Document Revised: 07/22/2022 Document Reviewed: 07/22/2022 [employer] Patient Education ? 2022 [employer] [facility] Consent for Immunizationon 1 06-12-2022 Consent for Immunization [id number]#1.0 0TIFF [facility] Nurse Consultation Noteon Nurse Consultation Note Reason [...] mg= 1 tab(s), Oral, Bedtime Atrovent 0.03% Patterson, 2 spray(s), Nasal, TID, PRN, 1 refills [...] virus vaccine, inactivated 03/04/2023 Given SARS-CoV-2 (COVID-19) [id number] 02/28/2022 Recorded influenza virus vaccine, inactivated 01/22/2022 Given influenza virus vaccine, inactivated 01/2022 Recorded SARS-CoV-2 (COVID-19) mRNA BNT-162b2 vax 05/15/2021 Given pneumococcal 13-valent vaccine 03/13/2021 Given influenza virus vaccine, inactivated 03/13/2021 Given SARS-CoV-2 (COVID-19) mRNA BNT-162b2 vax 07/12/2020 Recorded [facility] pneumococcal 23-valent vaccine 06/22/2020 Recorded SARS-CoV-2 (COVID-19) mRNA BNT-162b2 vax 06/14/2020 Recorded [facility] canakinumab 05/25/2020 Recorded COVID 19 PFIZER SARS-CoV-2 [...] vaccine 01/21/2011 Given Other (see comment) Normal [facility] Recordson 04-11 [facility] Records [id number]#1.0 0TIFF Normal [facility] Lab Reportson 03-22-2023 Lab Reports [id number] 0TIFF Normal [facility] Recordson 03-18 [facility] Records [id number]#1.0 0TIFF [facility] Ambulatory Visit Summaryon 1 Ambulatory Visit Summary [...] enteric coated tablet) ipratropium nasal (Atrovent 0.03% Patterson) isosorbide mononitrate (isosorbide mononitrate 30 mg ER [...] Appointments Friday 9:40 AM EST With: Where: [facility] Invalid Interpretation Code [address], [place] [address]- \.br\ Friday 1:00 PM EDT \.br\ With:\.br\ Where: [facility] Consent for Flu Vaccineon Consent for Flu Vaccine [id number]#1.0 0TIFF Normal [facility] Office/Clini c Noteon 03-04-2023 Family Medicine Office/Clinic [...] artery disease) (I25.10: Atherosclerotic heart disease of [place] coronary artery without angina pectoris) Ordered: Body [...] tobacco non-user (more content not included)... Normal [facility] Comment on above: Result Comment: Elec tronically [...] Keep all follow-up visits. Medicines ? Take nhdm-cbn-xvqarua and prescription medicines only as told by [...] For m (more content not included)... Normal [facility] Postoperative Documentson Postoperative Documents [id number]#1.0 0TIFF Normal [facility] Auth for Release of Medical Recordson 02-13-2023 Auth for Release of Medical Records [id number]#1. 00CD:127 [facility] Consent for Anesthesiaon Consent for Anesthesia [id number]#1. 00CD:127 [facility] Consent for Procedure/Surger yon 02-13-2023 Consent for Procedure/Surgery [id number]#1. 00CD:127 [facility] Discharge Instructionson Discharge Instructions [id number]#1. 00CD:127 [facility] H&P Updateon 02-13-2023 H&P Update [id number]#1. 00CD:127 [facility] Postoperative Documentson Postoperative Documents [id number]#1. 00TIFF [facility] Preoperative Documentson Preoperative Documents [id number]#1. 00CD:127 [facility] Provider Letteron 02-13-2023 Provider Letter February 13, 2023 PIEDAD ALATORRE [address] [place] [address] [place] [id number] : 1935 Dear Piedad Alatorre , We have been trying to reach you with no success. It is important that you return our call regarding your labs upon receiving this letter. Also, at the time of your call, please provide us with your current information. Thank you for your prompt attention to this matter. Sincerely, [facility] Care [address] [place] [address], [place] [address] [facility] Progress Note-Physicianon Progress Note-Physician Patient: PIEDAD ALATORRE Age: 87 years Sex: Female : 1935 Associated Diagnoses: None Author: MD Soria Ahmad F Postoperative Information Postoperative disposition: Postoperative disposition: To PACU. Optimetrix number: Optimetrix number [id number]. Anesthetic utilized: General. Health Status Allergies: Allergic [...] meets criteria ( To home ). Normal [facility] Comment on above: Result Comment: Elec tronically [...] Current medications: (Selected) Prescriptions Prescribed Atrovent 0.03% Patterson: 2 spray(s), Nasal, TID Other (see comment), 1 EA, Refill(s) 1, [facility], 157, cm, 11/26/20 10:30:00 EDT, Height/Length Dosing, 68, kg, 11/26/20 10:30:00 EDT, Weight Dosing amLODIPine 5 mg Tab: 5 mg = 1 tab(s), Oral, Daily, # 30 tab(s), Refills(s) 11 atorvastatin 80 mg Tab: 80 mg = 1 tab(s), Oral, Bedtime, # 90 tab(s), Refills(s) 0, Pharmacy: [facility], 157, cm, 11/26/20 10:30:00 EDT, Height/Length Dosing, 68, kg, 11/26/20 10:30:00 EDT, Weight Dosing carvedilol 25 mg Tab: 25 mg = 1 tab(s), Oral, BID, # 180 tab(s), Refills(s) 3, Pharmacy: [facility], 162, cm, 07/08/22 10:29:00 EST, Height/Length Dosing, 62.8, kg, 07/08/22 10:29:00 EST, Weight Dosing cloNIDine 0.1 mg tab: 0.1 mg, Oral, BID, # 180 tab(s), Refills(s) 3, Pharmacy: [facility], 157, cm, 12/22/19 12:26:00 EDT, Height/Length [...] BID, # 60 tab(s), Refills(s) 11, Pharmacy: [facility], 157.5, cm, 07/31/22 13:30:00 EDT, Height/Length Dosing, 61, kg, 03/22/23 13:30:00 EDT, Weight Dosing pantoprazole 40 mg Oral EC Tab: 40 mg, Oral, Daily, # 90 tab(s), Refills(s) 3, Pharmacy: [facility], 157, cm, 03/30/20 14:40:00 EST, Height/Length Dosing, 66.2, kg, 03/30/20 14:40:00 EST, Weight Dosing spironolactone 25 mg Tab: 25 mg = 1 tab(s), Oral, Daily, # 30 tab(s), Refills(s) 5, Pharmacy: [facility], 157, cm, 03/13/21 13:41:00 EDT, Height/Length Dosing, 61, kg, 03/13/21 13:41:00 EDT, Weight Dosing traZODONE 50 mg Tab: 50 mg = 1 tab(s), Oral, Once a day (at bedtime), # 15 tab(s), Refills(s) 5, Pharmacy: [place] [facility], 157, cm, 03/13/21 13:41:00 EDT, Height/Length Dosing, 61, kg, 03/13/21 13:41:00 EDT, Weight Dosing valacyclovir 1 g Tab: 1 gm = 1 tab(s), Oral, q8hr, X 7 day(s), # 21 tab(s), Refills(s) 0, Pharmacy: [facility], 157, cm, 02/07/23 13:05:00 EDT, Height/Length [...] Problems HTN - Hypertension / SNOMED CT 3591720462 / Confirmed Hyperlipidemia / SNOMED CT 34880013 / Confirmed Anxiety disorder / SNOMED CT 831171841 / Confirmed Asthma / SNOMED CT 168900505 / Confirmed Female stress incontinence / SNOMED CT 720002549 / Confirmed Carotid artery stenosis / SNOMED CT 061931395 / Confirmed Lumbar radiculopathy / SNOMED CT 862482835 / Confirmed Intertrigo / SNOMED CT 44780026 / Confirmed Leg weakness / SNOMED CT 688078195 / Confirmed Edema / SNOMED CT 525267637 / Confirmed Hyperglycemia / SNOMED CT 492448554 / Confirmed Insomnia / SNOMED CT 481385067 / Confirmed Stage 3 chronic kidney disease / SNOMED CT 8473759937 / Confirmed Anemia / SNOMED CT 811016144 / Confirmed 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 Normal [facility] Comment on above: Result Comment: Elec tronically Signed By: MD Estella, Mike F\.br\Date and Time Signed: 02/12/23 12:06 EDT Main OR Intraoperative Recor don 02-11-2023 Main OR Intraoperative Record IntraOp Document Type FT Summary Primary Physician: Larisa HINOJOSA, Wolf Arana Finalized Date/Time: 02/11/23 11:04:58 Pt. Name: PIEDAD ALATORRE D.O.B./Sex: 1935 Female Med Rec #: [id number] Physician: Larisa HINOJOSA, Wolf Arana Financial #: [id number] Pt. Type: O Room/Bed: Endo 11/09 Admit/Disch: [...] 2 Entry 3 Case Attendee Carlos TAM, INTERNAL MEDICINE NURSE PRACTITIONER, [facility] Shreya Peres MD, Wolf Arana Role Performed INTERNAL MEDICINE NURSE PRACTITIONER Scrub - Primary Surgeon - Primary Time In 02/10/23 13:43:00 02/10/23 13:43:00 02/10/23 13:43:00 Time Out 02/10/23 13:56:00 02/10/23 13:56:00 02/10/23 13:56:00 Procedure EGD(.) EGD(.) EGD(.) Comments Dr. Soria is supervising Last Modified By: Tran Ramirez CST, RN, Ana Maria Ashley RN, Ana Maria Martel 02/11/23 11:04:07 02/10/23 13:56:52 02/10/23 13:56:52 Entry 4 Entry 5 Case Attendee Dion TOLBERT, Adele Nesbitt Role Performed Drywall Carrier - Primary Staff - Other Time In [...] and tissue Entry 1 Skin Integrity Intact, [place], Warm, and Skin Abnormality No Dry Outcomes [...] Uncrossed? Yes (more content not included)... Normal [facility] Consent for Treatmenton Consent for Treatment [id number]#1.0 0CD:127 Normal [facility] Endoscopic Procedure Report - Otheron 02-10-2023 Endoscopic [...] need to refer to thoracic surgery. Normal [facility] Comment on above: Result Comment: Elec tronically Signed By: Wolf Peres MD\.br\Date and Time Signed: 02/10/23 14:00 EDT Other Comment: Lili townsend Attachment - attachment storage system not supported [id number] Can be viewed in [place] Attachment - attachment storage system not supported [id number] Can be viewed in source [place] Attachment - attachment storage system not supported [id number] Can be viewed in source systemMissing Attachment - attachment storage system not supported [id number] Can be viewed in source [place] Attachment - attachment storage system not supported [id number] Can be viewed in source systemMissing Attachment - attachment storage system not supported [id number] Can be viewed in source systemMissing Attachment - attachment storage system not supported [id number] Can be viewed in source systemMissing Attachment - attachment storage system not supported [id number] Can be viewed in source system[place]mclean [place] Attachment - attachment storage system not supported [id number] Can be viewed in source systemMissing Attachment - attachment storage system not supported [id number] Can be viewed in source system Inpatient Patient Summaryon 02-10-2023 Inpatient Patient Summary [place] [id number] [facility] Clinical Discharge Instructions PERSON INFORMATION Name: PIEDAD ALATORRE [facility]#:[id number] PHYSICIANS Admitting Physician: Wolf Peres MD Attending Physician: Wolf Peres MD PCP: PAULO HINOJOSA, Deonte Turpin Discharge Diagnosis: Dysphagia Comment: PATIENT EDUCATION INFORMATION Instructions: Esophageal Dilatation; Upper Endoscopy, Adult, Care After Medication Leaflets: Follow up: With: Address: When: Wolf Peres [address], [address], [address] [address] [phone] Business (1) Comments: Call for any problems. Type Location Start Finish State FM Open [facility] 03/04/2023 1:20 PM 03/04/2023 1:40 PM Confirmed Nurse Visit [facility] 04/11/2023 9:40 AM 04/11/2023 10:00 AM Confirmed FM Medicare Wellness Subsequent [facility] 08/01/2023 1:00 PM 08/01/2023 2:00 PM Confirmed [...] day. Refills: 5. ipratropium nasal (Atrovent 0.03% Patterson) 2 Sprays Nasal Inhalation 3 times a [...] for 7 Days. Refills: 0. Comment: Laila [facility] Main OR PACU I Recordon 10-0 Main OR PACU I Record PACU Phase I Document Type FT Summary Primary Physician: Wolf Peres MD Finalized Date/Time: 02/10/23 15:00:12 Pt. Name: PIEDAD ALATORRE/Sex: 1935 Female Med Rec #: [id number] Physician: Wolf Peres MD Financial #: [id number] Pt. Type: O Room/Bed: [facility] 11/09 Admit/Disch: 02/10/23 12:34:27 - Institution: [...] 02/10/23 15:00 Suellen Triplett RN 02/10/23 15:00 [facility] Main OR Preoperative Recordo n 02-10-2023 Main OR Preoperative Record Holding Area Document Type FT Summary Primary Physician: Wolf Peres MD Finalized Date/Time: 02/10/23 12:52:27 Pt. Name: PIEDAD ALATORRE/Sex: 1935 Female Med Rec #: [id number] Physician: Wolf Peres MD Financial #: [id number] Pt. Type: O Room/Bed: Endo OP 11/09 [...] Outcomes Met? Yes Last Modified By: Shady Luuqe RN 02/10/23 12:50:10 Post-Care Text: The patient [...] Patient states Yes Comment - Adult [facility] postop adult Supervision supervision available Case Cancelled in No Holding Area see comments below for reason Last Modified By: Shady Luque RN 02/10/23 12:52:26 Finalized By: Shady Luque RN Document Signatures Signed By: Shady Luque RN 02/10/23 12:52 Normal [facility] Monitor Recordon 02-10-2023 Monitor Record [id number]#1. 00CD:127 Normal [facility] Outpatient Surgery Discharge Instructionon 02-10-2023 Outpatient Surgery Discharge Instruction [address] [address] Patient Discharge Instructions PERSON INFORMATION [...] Follow up: With: Address: When: [facility] [address], [address], [address] [address] [phone] Business (1) Comments: Call for any problems. Type Location Start Finish State FM Open [facility] 03/04/2023 1:20 PM 03/04/2023 1:40 PM Confirmed FM Nurse Visit [facility] 04/11/2023 9:40 AM 04/11/2023 10:00 AM Confirmed FM Medicare Wellness Subsequent [facility] 08/01/2023 1:00 PM 08/01/2023 2:00 PM Confirmed Pharmacy Information: [facility] Mail Order You may receive a survey from [employer] asking you to rate your care experience. Your feedback is important and will help us understand what we do well and how we can improve the quality of care we provide to you, your loved ones and our community. It?s an honor to serve you. Thank you for choosing [facility] HERE ARE THE MEDICATION CHANGES THAT OCCURRED [...] day. Refills: 5. ipratropium nasal (Atrovent 0.03% Patterson) 2 Sprays Nasal Inhalation 3 times a [...] some c (more content not included)... Normal [facility] Patient Education - Texton 1 Patient Education [...] including vitamins, herbs, eye drops, creams, and xuie-ddk-hzcmccp medicines. ? Any problems you or family [...] tells you to take them. ? Taking ovbs-rwo-ydtnapx medicines, vitamins, herbs, and supplements. ? Follow [...] Follow these instructions at home: ? Take pnxo-iil-tycgfgu and prescription medicines only as told by [...] be spray (more content not included)... Normal [facility] Lab Reportson 02-08-2023 Lab Reports [id number] 0CD:127 Normal [facility] Ambulatory Visit Summaryon 0 02-07-2023 Ambulatory Visit [...] enteric coated tablet) ipratropium nasal (Atrovent 0.03% Patterson) isosorbide mononitrate (isosorbide mononitrate 30 mg ER [...] Appointments Friday 1:30 PM EDT With: Where: [facility] Services Friday 1:20 PM EDT With: PAULO HINOJOSA, Deonte Turpin Where: [facility] Normal [address], [place] [address]- \.br\ Medications\.br\ What How Much When Why [...] concerns \.br\ Unchanged ipratropium nasal (Atrovent 0.03% Patterson) 2 Sprays Nasal Inhalation 3 times a [...] Pharmacy Information\.br\ [facility]: [address], [place] [id number] [phone]\.br\ Allergies\.br\ lisinopril (Angioedema)\.br\ Latex (Rash)\.br\ Skelaxin (SOB [...] Cardiac arrest\.br\ COPD\.br\ Glaucoma\.br\ H/O: TIA\.br\ HEMATURIA\.br\ HI - myocardial infarction\.br\ STEMI - ST elevation myocardial infarction\.br\ Stroke\.br\ \.br\ [facility] Family Medicine Office/Clini c Noteon 02-07-2023 Family [...] Mouth: mucous membranes pink, moist and intact. [place] posterior oropharynx, no palatal inflammation, uvula midline, [...] if needed [address], [place] [address]- Additional Instructions: Patient Education Neuropathic Pain Shingles Problem List/Past Medical History Ongoing Anemia Anxiety disorder Asthma BMI 25.0-25.9,adult CAD (coronary artery disease) Carotid osei (more content not included)... Normal [facility] Comment on above: Result Comment: Elec tronically [...] a specialist, such as an eye doctor (chassis engineer) or an ear, nose, and throat (ENT) doctor (magnetic prospector ) to help you avoid eye problems, chronic pain, or disability. Follow these instructions at home: Medicines ? Take xmos-ipk-ruznyyk and prescription medicines only as told by [...] your health care provider. This is an ijge-rnl-yrduqgm lotion that helps to relieve itchiness. Blister and rash care ? Keep your rash covered with a loose bandage (dressing). Wear loose-fitting clothing to help ease the pain of material rubbing against the rash. ? Wash your hands with soap and water for at least 20 seconds before and after you change your dressing. If soap and water are not available, use hand taffy candy maker. ? Change your dressing as told by [...] and water are not available, use hand taffy candy maker. Doing this lowers your chance of getting [...] Getting vaccinat (more content not included)... Normal [facility] Main OR Preoperative Recordo n 01-22-2023 Main OR Preoperative Record Holding Area Document Type FT Summary Primary Physician: Wolf Peres MD Finalized Date/Time: 01/22/23 11:03:23 Pt. Name: PIEDAD ALATORRE/Sex: 1935 Female Med Rec #: [id number] Physician: Wolf Peres MD Financial #: [id number] Pt. Type: O Room/Bed: Endo 10/10 Admit/Disch: [...] Adult Magdaleno- transport from postop adult Supervision prison supervision available Case Cancelled in Yes Case Cancelled didnt hold blood thinner Holding Area see Comment comments below for reason Last Modified By: Ana Maria Ashley RN 01/22/23 11:03:21 Finalized By: Ana Maria Ashley RN Document Signatures Signed By: Ana Maria Ashley RN 01/15/23 11:56 Ana Maria Ashley RN 01/22/23 11:03 [facility] Consent for Procedure/Surger yon 01-20-2023 Consent for Procedure/Surgery [id number]. 00CD:127 [facility] Consent for Treatmenton Consent for Treatment [id number] 0CD:127 [facility] Progress Note-Physicianon Progress Note-Physician Patient: PIEDAD ALATORRE [...] = 1 tab(s), Oral, Bedtime Atrovent 0.03% Patterson 2 spray(s), PRN, Nasal, TID carvedilol 25 [...] Problems HTN - Hypertension / SNOMED CT 0021316203 / Confirmed Hyperlipidemia / SNOMED CT 57092315 / Confirmed Anxiety disorder / SNOMED CT 590622645 / Confirmed Asthma / SNOMED CT 350673869 / Confirmed Female stress incontinence / SNOMED CT 289840714 / Confirmed Carotid artery stenosis / SNOMED CT 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 / Confirmed Lumbar radiculopathy / SNOMED CT 932798727 / Confirmed Intertrigo / SNOMED CT 56965033 / Confirmed Leg weakness / SNOMED CT 685242545 / Confirmed Edema / SNOMED CT 425545684 / Confirmed Hyperglycemia / SNOMED CT 997253190 / Confirmed Insomnia / SNOMED CT 128461198 / Confirmed Stage 3 chronic kidney disease / SNOMED CT 8144055182 / Confirmed Anemia / SNOMED CT 696144858 / Confirmed 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 Seborrheic keratoses / SNOMED CT 2659421286 / Confirmed Shoulder pain / SNOMED CT 03266355 / Confirmed 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 Neck pain / SNOMED CT 212880375 / Confirmed CAD (coronary artery disease) / SNOMED CT 30205484 / Confirmed Elevated alkaline phosphatase level / SNOMED CT 895922862 / Confirmed Dysphagia / SNOMED CT 89511585 / Confirmed History of CVA in adulthood / SNOMED CT 2869587140 / Confirmed Knee pain, right / SNOMED CT 4567764817 / Confirmed Skin lesion of face / SNOMED CT 5096831509 / Confirmed Resolved: blood clots Resolved: COPD / SNOMED CT 53480859 Resolved: Stroke / ICD-9-CM 436 Resolved: Appendectomy / ICD-9-CM 47.0 Resolved: H/O: TIA / SNOMED CT 182738229 Resolved: HEMATURIA / ICD-9-CM 599.7 Resolved: Acid reflux / SNOMED CT 1308040064 Resolved: Glaucoma / SNOMED CT 28601801 Resolved: HI - myocardial infarction / SNOMED CT 2128973557 Resolved: STEMI - ST elevation myocardial infarction / SNOMED CT 5490488424 Resolved: Cardiac arrest / SNOMED CT 9455605344 Canceled: H/O: anemia / SNOMED CT 9828480543 Canceled: Renal insufficiency syndrome NOS / ICD-9-CM 586 Canceled: Lymphoma / SNOMED CT 93856562 Canceled: TIA (transient ischemic attack) / SNOMED CT 391265297 Canceled: CVA (cerebral vascular accident) / SNOMED CT 196058603 Canceled: Osteoarthrosis / SNOMED CT 7201657726 Canceled: Alkaline phosphatase elevation / SNOMED CT 781746882 Canceled: Loose stools / SNOMED CT 9088164498 Canceled: COPD type B / SNOMED CT 792120664 Canceled: Acute UTI / SNOMED CT 9975366830 Canceled: History of CVA in adulthood / SNOMED CT 7630921367 Canceled: Overweight with body mass index (BMI) of 26 to 26.9 in adult / SNOMED CT 0205037142 Canceled: Non-smoker / SNOMED CT 51195851 Canceled: Patient had no falls in past year / SNOMED CT 2511670407 Canceled: Leg pain / SNOMED C (more content not included)... Normal [facility] Comment on above: Result Comment: Elec tronically Signed By: Gerard HINOJOSA, Artem Shields\.br\Date and Time Signed: 01/15/23 12:04 EDT Consent for Procedure/Surger yon 12-18-2022 Consent for Procedure/Surgery [id number]#1.0 0CD:127 Normal [facility] Ambulatory Visit Summaryon 0 12-10-2022 Ambulatory Visit [...] enteric coated tablet) ipratropium nasal (Atrovent 0.03% Patterson) isosorbide mononitrate (isosorbide mononitrate 30 mg ER [...] EDT With: PAULO HINOJOSA, Deonte Turpin Where: [facility] Normal [address] [place] [address]- \.br\ Medications\.br\ What How Much When Why [...] day Anemia\.br\ Unchanged ipratropium nasal (Atrovent 0.03% Patterson) 2 Sprays Nasal Inhalation 3 times a [...] Cardiac arrest\.br\ COPD\.br\ Glaucoma\.br\ H/O: TIA\.br\ HEMATURIA\.br\ HI - myocardial infarction\.br\ STEMI - ST elevation myocardial infarction\.br\ Stroke\.br\ \.br\ [facility] Gastroenterology Office/Clin ic Noteon 12-10-2022 Gastroenterology Office/Clinic Note Chief Complaint dysphagia and GERD HPI Staff Patient is a(n) 87 year old female who presents today for a(n) 10 month follow up for dysphagia & GERD. Takes Pantoprazole daily. Currently resides at [facility] - requests medication requests be sent there. [...] Cardiac arrest COPD Glaucoma H/O: TIA HEMATURIA HI - myocardial infarction STEMI - ST elevation [...] Stents, bilateral (more content not included)... Normal [facility] Comment on above: Result Comment: Elec tronically Signed By: Larisa HINOJOSA, Wolf Arana\.br\Date and Time Signed: 12/10/22 10:36 EDT [facility] Recordson 11-26 [facility] Records [id number]#1.0 0CD:127 Normal [facility] Family Medicine Office/Clini c Noteon 11-22-2022 Family Medicine Office/Clinic Note Chief Complaint Patient here for 3 month f/u on htn, chol, thyroid--had labs done in September at [facility]. History of Present Illness Here for med [...] artery disease) (I25.10: Atherosclerotic heart disease of [place] coronary artery without angina pectoris) stable keep [...] unspecified) will refer back to GI Ordered: [facility] Internal Ambulatory Referral Follow-up With When Contact Information PAULO HINOJOSA, ROCKY Diaz In 3 months [facility] [address] [place] [address]- Additional Instructions: Patient Education Hypertension, Adult, Cdut-vf-Nrlu Problem List/Past Medical History Ongoing Anemia Anxiety [...] Cardiac arrest COPD Glaucoma H/O: TIA HEMATURIA HI - myocardial infarction STEMI - ST elevation [...] artery, Appen (more content not included)... Normal [facility] Comment on above: Result Comment: Elec tronically Signed By: PAULO HINOJOSA, Deonte Turpin\.br\Date and Time Signed: 11/22/22 14:14 EDT Lab Reportson 11-22-2022 Lab Reports [id number] 0CD:127 Normal [facility] Patient Educationon 11-23-19 Patient Education Cardiovascular Hypertension, [...] Keep all follow-up visits. Medicines ? Take zcrp-xvd-nqqhrxk and prescription medicines only as told by [...] For m (more content not included)... Normal [facility] Recordson 10-23 [facility] Records [id number] 0CD:127 Normal [facility] PT - Progress Noteson 2022 PT - Progress Notes [id number] 0CD:127 Normal [facility] Physician Orderon 09-26-2022 Physician Order [id number] 0CD:127 Normal [facility] CBC AUTO DIFFon 09-20-2022 BASO # 0.1 103/ul Normal 0.0-0.1 [facility] Comment on above: Performed By: #### C BC #### [facility] [address] [place] [address] Dr. Carla Little Basophils/100 WBC (Bld) 0.9 % Normal 0.2-2.0 [facility] Comment on above: Performed By: #### C BC #### [facility] [address] [place] [address] Dr. Carla Little EO # 0.4 103/ul Normal 0.0-0.7 [facility] Comment on above: Performed By: #### C BC #### [facility] [address] [place] [address] Dr. Carla Little Eosinophils/100 WBC (Bld) 5.0 % Normal 0.9-7.0 [facility] Comment on above: Performed By: #### C BC #### [facility] [address] [place] [address] Dr. Carla Little Erythrocyte distribution width (RBC) [Ratio] 14.1 % Normal 11.0-15.0 [facility] Comment on above: Performed By: #### C BC #### [facility] [address] [place] [address] Dr. Carla Little Hematocrit (Bld) [Volume fraction] 34.5 % Critically low 36.0-48.0 [facility] Comment on above: Performed By: #### C BC #### [facility] [address] [place] [address] Dr. Carla Little Hemoglobin (Bld) [Mass/Vol] 10.6 g/dL Critically low 12.0-16.0 [facility] Comment on above: Performed By: #### C BC #### [facility] [address] [place] [address] Dr. Carla Little IG # 0.03 10e3/ul Normal 0.00-0.03 [facility] Comment on above: Performed By: #### C BC #### [facility] [address] [place] [address] Dr. Carla Little IG % 0.4 % Normal 0.0-0.5 [facility] Comment on above: Performed By: #### C BC #### [facility] [address] [place] [address] Dr. Carla Little LYMPH # 1.5 103/ul Normal 1.2-3.8 [facility] Comment on above: Performed By: #### C BC #### [facility] [address] [place] [address] Dr. Carla Little Lymphocytes/100 WBC (Bld) 20.9 % Normal 20.5-60.0 [facility] Comment on above: Performed By: #### C BC #### [facility] [address] [place] [address] Dr. Carla Little MANUAL DIFF REQ NO Normal [facility] Comment on above: Performed By: #### C BC #### [facility] [address] [place] [address] Dr. Carla Little MCH (RBC) [Entitic mass] 28.7 pg Normal 26.7-34.0 [facility] Comment on above: Performed By: #### C BC #### [facility] [address] [place] [address] Dr. Carla Little MCHC (RBC) [Mass/Vol] 30.7 g/dL Normal 29.9-35.2 [facility] Comment on above: Performed By: #### C BC #### [facility] [address] [place] [address] Dr. Carla Little MCV (RBC) [Entitic vol] 93.5 fL Normal 81.0-99.0 [facility] Comment on above: Performed By: #### C BC #### [facility] [address] [place] [address] Dr. Carla Little MONO # 0.6 103/ul Normal 0.3-0.8 [facility] Comment on above: Performed By: #### C BC #### [facility] [address] [place] [address] Dr. Carla Little Monocytes/100 WBC (Bld) 9.1 % Normal 1.7-12.0 [facility] Comment on above: Performed By: #### C BC #### [facility] [address] [place] [address] Dr. Carla Little NEUT # 4.5 103/ul Normal 1.4-6.5 [facility] Comment on above: Performed By: #### C BC #### [facility] [address] [place] [address] Dr. Carla Little Neutrophils/100 WBC (Bld) 63.7 % Normal 43.0-75.0 [facility] Comment on above: Performed By: #### C BC #### [facility] [address] [place] [address] Dr. Carla Little Platelet mean volume (Bld) [Entitic vol] 9.8 fL Normal 9.5-13.5 [facility] Comment on above: Performed By: #### C BC #### [facility] [address] [place] [address] Dr. Carla Little PLT 222 103/ul Normal 150-450 [facility] Comment on above: Performed By: #### C BC #### [facility] [address] [address] [address] Carla Little RBC 3.69 106/ul Critically low 4.20-5.40 [facility] Comment on above: Performed By: #### C BC #### [facility] [address] [address] [address] Carla Little WBC 7.0 103/ul Normal 4.0-11.0 [facility] Comment on above: Performed By: #### C BC #### [facility] [address] [address] [address] Carla Little LIPID PROFILEon 09-20-2022 CHOL-HDL RATIO NORM SEE BELOW Normal [facility] Comment on above: Result Comment: 3.3 - 4.4 LOW RISK 4.4 - 7.1 AVERAGE RISK 7.1 - 11.0 MODERATE RISK >11.0 HIGH RISK Performed By: #### L IPID, CMP #### [facility] [address] [address] [address] Carla Little Cholesterol [Mass/Vol] 124 mg/dL Normal <=200 [facility] Comment on above: Performed By: #### L IPID, CMP #### [facility] [address] [address] [address] Carla Little Cholesterol in HDL [Mass/Vol] 47 mg/dL Normal 40-60 [facility] Comment on above: Performed By: #### L IPID, CMP #### [facility] [address] [address] [address] Carla Little Cholesterol in LDL [Mass/Vol] 61.0 mg/dL Normal [facility] Comment on above: Performed By: #### L IPID, CMP #### [facility] [address] [address] [address] Carla Little Cholesterol.total/ Cholesterol in HDL [Mass ratio] 2.6 {ratio} Normal [facility] Comment on above: Performed By: #### L IPID, CMP #### [facility] [address] [address] [address] Carla Little HDL NORMAL > or = 60 mg/dl - LO W CARDIOVASCULAR RISK <40 mg/dl - HIGH CARDIOVASCULAR RISK Normal [facility] Comment on above: Performed By: #### L IPID, CMP #### [facility] [address] [address] [address] Carla Little LDL CALC NORMAL SEE BELOW Normal [facility] Comment on above: Result Comment: <100 mg/dl OPTIMAL 100 - 129 mg/dl NEAR OR ABOVE OPTIMAL 130 - 159 mg/dl BORDERLINE HIGH 160 - 189 mg/dl HIGH >190 mg/dl VERY HIGH Performed By: #### L IPID, CMP #### [facility] [address] [place] [address] Dr. Carla Little Triglyceride [Mass/Vol] 80 mg/dL Normal <=150 [facility] Comment on above: Performed By: #### L IPID, CMP #### [facility] [address] [place] [address] Dr. Carla Little VLDL CALC 16.0 mg/dL Normal [facility] Comment on above: Performed By: #### L IPID, CMP #### [facility] [address] [place] [address] Dr. Carla Little PROF 14(COMP METB)on 023 Albumin [Mass/Vol] 3.4 g/dL Normal 3.4-5.0 [facility] Comment on above: Performed By: #### L IPID, CMP #### [facility] [address] [place] [address] Dr. Carla Little Albumin/Globulin [Mass ratio] 1.2 {ratio} Normal [facility] Comment on above: Performed By: #### L IPID, CMP #### [facility] [address] [place] [address] Dr. Carla Little ALP [Catalytic activity/Vol] 137 U/L Critically high 46-116 [facility] Comment on above: Performed By: #### L IPID, CMP #### [facility] [address] [place] [address] Dr. Carla Little ALT [Catalytic activity/Vol] 20 U/L Normal 14-59 [facility] Comment on above: Performed By: #### L IPID, CMP #### [facility] [address] [place] [address] Dr. Carla Little Anion gap [Moles/Vol] 14.2 mmol/L Normal [facility] Comment on above: Performed By: #### L IPID, CMP #### [facility] [address] [place] [address] Dr. Carla Little AST [Catalytic activity/Vol] 14 U/L Critically low 15-37 [facility] Comment on above: Performed By: #### L IPID, CMP #### [facility] [address] [place] [address] Dr. Carla Little Bilirubin [Mass/Vol] 0.3 mg/dL Normal 0.2-1.0 [facility] Comment on above: Performed By: #### L IPID, CMP #### [facility] [address] [place] [address] Dr. aCrla Little Calcium [Mass/Vol] 8.8 mg/dL Normal 8.5-10.1 [facility] Comment on above: Performed By: #### L IPID, CMP #### [facility] [address] [place] [address] Dr. Carla Little Chloride [Moles/Vol] 108 mmol/L Critically high 98-107 [facility] Comment on above: Performed By: #### L IPID, CMP #### [facility] [address] [place] [address] Dr. Carla Little CO2 [Moles/Vol] 27.1 mmol/L Normal 21.0-32.0 [facility] Comment on above: Performed By: #### L IPID, CMP #### [facility] [address] [place] [address] Dr. Carla Little Creatinine [Mass/Vol] 1.57 mg/dL Critically high 0.55-1.02 [facility] Comment on above: Performed By: #### L IPID, CMP #### [facility] [address] [place] [address] Dr. Carla Little EGFR-AF [place] 38 mL/min/1.73m2 Critically low >=60 [facility] Comment on above: Performed By: #### L IPID, CMP #### [facility] [address] [address] [address] Carla Little EGFR-NON AF [place] 31 mL/min/1.73m2 Critically low >=60 [facility] Comment on above: Performed By: #### L IPID, CMP #### [facility] [address] [address] [address] Carla Little Globulin (S) [Mass/Vol] 2.8 g/dL Normal [facility] Comment on above: Performed By: #### L IPID, CMP #### [facility] [address] [address] [address] Carla Little Glucose [Mass/Vol] 108 mg/dL Critically high 74-106 [facility] Comment on above: Performed By: #### L IPID, CMP #### [facility] [address] [address] [address] Carla Little Potassium [Moles/Vol] 4.3 mmol/L Normal 3.5-5.1 [facility] Comment on above: Performed By: #### L IPID, CMP #### [facility] [address] [address] [address] Carla Little Protein [Mass/Vol] 6.2 g/dL Critically low 6.4-8.2 [facility] Comment on above: Performed By: #### L IPID, CMP #### [facility] [address] [address] [address] Carla Little Sodium [Moles/Vol] 145 mmol/L Normal 136-145 [facility] Comment on above: Performed By: #### L IPID, CMP #### [facility] [address] [address] [address] Carla Little Urea nitrogen [Mass/Vol] 27.0 mg/dL Critically high 7.0-18.0 [facility] Comment on above: Performed By: #### L IPID, CMP #### [facility] [address] [address] [address] Carla Little Urea nitrogen/Creatinin e [Mass ratio] 17.2 mg/mg Normal [facility] Comment on above: Performed By: #### L IPID, CMP #### [facility] [address] [place], [place] [address] Dr. Carla Little [facility] Recordson 09-17 [facility] Records [id number] 0CD:127 Normal [facility] [facility] Recordson 09-16 [facility] Records [id number] 0CD:127 Normal [facility] Retail - Clinical Noteon Retail - Clinical Note [id number] 0CD:127 Normal [facility] PT - Progress Noteson 2022 PT - Progress Notes [id number] 0CD:127 Normal [facility] Interdisciplinary Note - Soc ial Workeron 08-27-2022 Interdisciplinary Note - Well Point Pumping Supervisor This SW attempted to reach patient again today regarding concerns for transportation to and from medical appointments. There was no answer and no voicemail was available. Patient does reside at [facility]. SW will remain available. Normal [facility] Interdisciplinary Note - Soc ial Workeron 08-07-2022 Interdisciplinary Note - Well Point Pumping Supervisor This SW recieved a consult for SDOH due to it being marked that there were concerns related to transportation. This SW tried to contact patient however there was no answer and voicemail was not available. SW will try to reach her again at a later time. Normal [facility] Physician Referralon 023 Physician Referral [id number]#1.0 0CD:127 Normal [facility] Screenson 08-01-2022 Screens [id number]#[id number] 0CD:127 Normal [facility] Ambulatory Visit Summaryon 0 07-31-2022 Ambulatory [...] enteric coated tablet) ipratropium nasal (Atrovent 0.03% Patterson) isosorbide mononitrate (isosorbide mononitrate 30 mg ER [...] PM EDT With: Deonte ROSARIO MD Where: [facility] Normal [address], [place] [address]- \.br\ You Need to Schedule the Following Appointments\.br\ Follow Up with Deonte ROSARIO MD, MED When: In 3 months\.br\ Where:\.br\ [facility] [address], [address]\.br\ [place] [address].br\ \.br\ Someone Will Contact You Regarding These Appointments\.br\ [facility] External Ambulatory Referral, Dermatology, 07/31/22 14:28:00 EDT, [...] day Anemia\.br\ Unchanged ipratropium nasal (Atrovent 0.03% Patterson) 2 Sprays Nasal Inhalation 3 times a day as needed for Other (see comment) Vasomotor rhinitis\.br\ Unchanged isosorbide mononitrate (isosorbide mononitrate 30 mg ER Tab) 1 Tablets By Mouth 2 times a day Pickup at [facility]\.br\ Unchanged lorazepam (LORazepam 0.5 mg Tab) [...] Pharmacy Information\.br\ [facility]: [address], [place] [phone]\.br\ Allergies\.br\ lisinopril (Angioedema)\.br\ Latex (Rash)\.br\ Skelaxin (SOB [...] Cardiac arrest\.br\ COPD\.br\ Glaucoma\.br\ H/O: TIA\.br\ HEMATURIA\.br\ HI - myocardial infarction\.br\ STEMI - ST elevation [...] than age 40.\.br\ ? \.br\ Being of -Spanish descent.\.br\ ? \.br\ Having high blood pressure [...] diagnosed through an eye exam by an pharmacy retail support specialist (chassis engineer) . This specialist will:\.br\ ? \.br\ Perform [...] instructions at home:\.br\ ? \.br\ Take over- [facility] Family Medicine Office/Clini c Noteon 07-31-2022 Family [...] of clutter to prevent tripping and/or falling. [place] Advance Directives reviewed. Patient has on file [...] PCP. 4. 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 Follow-u (more content not included)... Normal [facility] Comment on above: Result Comment: Elec tronically [...] Grossly normal Skin: _red raised lesion R cheondoism area Mental Status: Alert and oriented x3. [...] artery disease) (I25.10: Atherosclerotic heart disease of [place] coronary artery without angina pectoris) on Brilinta and asa 9. Anemia (D64.9: Anemia, unspecified) last lab was stable 10. Anxiety disorder (F41.9: Anxiety disorder, unspecified) 11. Insomnia (G47.00: Insomnia, unspecified) stay on trazodone and it his helping. 12. Knee pain, right (M25.561: Pain in right knee) will put in PT referral at [facility] on form today. Also for L arm pain. 13. Skin lesion of face (L98.9: Disorder of the skin and subcutaneous tissue, unspecified) will refer to derm Ordered: [facility] External Ambulatory Referral Orders: isosorbide mononitrate, 30 mg = 1 tab(s), Oral, BID, # 60 tab(s), Refills(s) 11, Pharmacy: [facility], 157.5, cm, 07/31/22 13:30:00 EDT, Height/Length Dosing, 61, kg, 07/31/22 13:30:00 EDT, Weight Dosing Follow-up With When Contact Information PAULO HINOJOSA, ROCKY Diaz In 3 months [facility] [address] [facility], [place] [address]- Additional Instructions: Patient Education Hypertension, Adult, Jdlo-fe-Yqjt Problem List/Past Medical History Ongoing Anemia Anxiety [...] Cardiac arrest COPD Glaucoma H/O: TIA HEMATURIA HI - myocardial infarction STEMI - ST elevation [...] 5 mg= (more content not included)... Normal [facility] Comment on above: Result Comment: Elec tronically [...] doctor. This is important. Medicines ? Take wyut-vwm-gcuhsuy and prescription medicines only as told by [...] harder to (more content not included)... Normal [facility] Recordson 07-29 [facility] Records [id number]#1.0 0CD:127 Normal [facility] Coding Summary.on 07-16-2022 Coding Summary. CD:[id number] Gh 0bWw+PGhlYWQ+QW7DSXQaU 19ijPOrvB3GR9aITG7PFJR LBQDGIG3PRE1liZE1ZZxqG 2VybiAv EooqtRXuUL32SPp8JSY7fK vfTQfjfO6lrGRwJ5y3IrZy WI58sY89WHuaZPGuSsS8Wg ZpbjsgbWFy Y6ppTqIufGPuWme+PHRhYm xlIHdpZHRoPScxMDAlJyBz mLaiGG0sMy9aTHErSRQclL xhcHNlOiBj y7auBAEvSMbkJW8trCgxE1 WqxTH2EYTjg7a4Tl12yQP+ IJWtVVH8jPdtQMyeq531Ti Qwy7mlQCI7 aVVpMKsoAAF3V88nw2D8FP CvYCTaRXC8bLL2yY6thMha dtjzI8XkvWBzRhW7PME0dI DkmB9qeObq ipmpyK2rRll+O99CRY5VRY CCQG9IShr5M1TwXtvhrCV+ CU74EDIeLF99vJKofCYag8 hzrGn8NsCl BWJqDVK0lSmiOZvsv8RiMO OzV03qwXDox7K3XSFetUvg jFWzLtZehWR9zG0rFDduxb xof1urdxum Vtkts9hpqm99mU80P79iNS plCPGtDUM3WKVsEGYkgLfw bb0rhN1kEh3+THtsa0csc3 pkrZm1RgNk DABrmsYhfHdfZUE2v0EtWh 60E4KweSbgf8ZzSmo2mv47 kHOdf3O7qQI7KTgzSUNlyA 6oDSaoYhP7 JGAzDcAdmY54kXRjXSgeAc 7dtFkmcZnmFD7sDGAcmdmo HCUrzH5hLZWlcLGbwCvzXF 4wNTBpbjtm p150TiXuKJW0KBSovFAiP1 HukV7lAoKpEOYpMGKjO6Zr gQBfPUhdM193UXjrXiV3KD VodeJrD1Pl IMXhpHvnXmE6i2X1Ig8Mc5 PxjhdmJXA8ASepXPPhOlQ4 BpHdAlN3A1CzEhe1BKIlbJ wzQS2zM4Le CGZacoebjsmgrHQ1XJJhVZ JifL92gMEzKTacMg5db2U2 m954YVZfAKLamU31Vr8ifM ogMTBwdCBU gE3irfwfx3hzyxlrWbGiTP XyEGo3XLo4QFXuiJbzNsAh FEI7RjC0XMG9pTKwmS5ogK qanoatlY6b Oyc+J51qjR4gYWE4UUB5iw qmOZVehmSeHJ58FK69A4Ka PjwvdGFibGU+PGRpdiBzdH dzQP6fLuSy b1dks5NxETobA0GfLHEjBN mqYhv2HOVqOMR6pYD6vZ3b GIBnLVlst4Q2mFZ5R4Bnyw Xojk3xn6nz JQNpCMuiM02aiPZkw4E2PV HtrQM0TFKeaObpUaNgaB25 Oyc+GGAzgLjmm9GjKokjw8 iao9rdcIy6 OrJvHHFbemAscMidBQA4g7 FqNt03C87zDQxuOOMyWQKe NEJbLZUmjRyssy1prX5wQj 8+PGNvbCB3 jBS1xT7uNLMdLkS6ZRgxH4 35PkDthORjMuxmu5qww3gr gZy6WoImMMMhkkAgqScpJV X8g8CuMa70 B69bVBnqTRGsCLBuQUJaTR EvwMwbbt0bhS7fRg0+PC9j n1tyqk54qC32wAU+PHRkIH U4dLajREbo LMLjeN1pLBunWiJ3NJLwEb YfjI03hCZkHJieMq8wsMng tPhcQI9lOZMdpkbmv790Pe Gbe4poUTBm yNRlEQsqVEL9X10og1W7PU EqFKFeUGP5rOL3jN9zzHhm bjogbGVmdDsgdmVydGljYW coXLhoS991 IHRvcDsnPlBhdGllbnQgTm CmUGk8N4CxFty9MLXypOhr ZK8buXAfYXrmBk9qjXuzcB roYR4xXTYe truno880GeKws9laLGCypO JxVApcRDF7E65xa7N5XFFu CYDsKSC4pPR7xO5vbXiqhc ogbGVmdDsg krFodXqzGMsvOXeyN055GV RvcDsnPkJpcnRoIERhdGU6 RA86TE78sFNnt2A2xMS5I5 BhZGRpbmct xodudFE1TIWhRGNmdF76Ap 4hjSbjHf9bZAKyUKZ6EABb wLPsR8ErtY6uIeDcKFSuWY JoB3XhbKMa IGmoJ962URjlQkL4ZLFwwx JrV1SeFBFcaYzgZuL6c3G4 Gi9LA8D6QR39BZ15fQKwk9 D0hBC1D4Ih GNUunssvahwpfSO0APNrCV YqjL82Ej9jnWdaCz9aPABb DWE3NBAwuLMuY4SfsG2wYq AjMDAwMDAw F1DkfZMoQYjeP450GUmfDb E6JFYcqzCbZ6JqAMCabDzw TsL9y2A8Hm6VCCb2KQ43BB 67nKCkl9B7 gIE8N7YlKDMkqoxyuyorxM B2MYXmVPJywB01Aw1orUwj Ct2nINRpFND4KAEvwATgI4 SfaW5xGpWa JZMmXPEnS2BajMKhGOcdS2 86SWayJhT7ABVdqbDtU7Kg UBSdwKrqNgH0y9O5Wi4JFD TwBP68QCZ4 jXL6AG79IP59P6IuFsoryW FibGU+PHRhYmxlIHdpZHRo DMqiRYFcYcAjjVzaKI4vXy 9yZGVyLWNv gTctwSRlGrGou2deIEBvJI orUP3ioOgzS4QfhEJ7WHKg n1a5Tn89L03mB3DxyUD+PG UzzSE0iEE0 vE8lPnJjZnL5OMbwU902Fy ErrGYiIzufe1eko7lwmFa4 CjQ3WJWrwhPrgMcnHKV8l3 ZtPh61K08e IHdpZHRoPSIxNSUiIHZhbG vwfb1tbT1kLz8+PGNvbCB3 hAG8uZ7pYmBtHmX5RJegT8 49InRvcCIv Hsvth0maf6affLn4CbNrKY DcloUqqBstYQN3s5DeLo31 Y3BhtDqel5FcSlc1mh53fQ Tli6Q3pEN7 Y4ZpPGUrkfuhsWRwaKbqJD 0jYIYzeovpKJHqiH2tGEDc Y6i3RgAsRpR5ZPovH6Tyxc J3SQNkyHOe AHaiOPZ8G15oc8V3IZLnMK HqTWB4bBK4aY2kfRebwucw bGVmdDsgdmVydGljYWwtYW rqX443QIAx vZcwEHGqhD5hQCNqkSRufQ mhCB2jDLKacftdAxNUYSTB AAunZr4OKJ9JSxxaMAmqiW Q+PHRkIHN0 bUbpEIawSSWgfT3qLQCsV5 l5QkSuGmG1FBsxD3DuYFId xpneTg55hU2dAgMsLbZ9CW ptH3WupuW6 IIDwsBSmWEqpWNZ7Y44de2 Z9OAUlUDNaWED0xKV5dL8w bGlnbjogbGVmdDsgdmVydG ljYWwtYWxp W334CTLukHdfFtY1IoG7Mo N1Jit8H1SpLkn9VKBvfYja SD2ykFMiHIxhNf6pxNpasB fhQQ6wMVLd phmxHLSnnN7cKHKsySEpuN joKH9oJXUmtoins567AcQy CIO3NRQpcYZrO2PfgG8mZs AjMDAwMDAw B7QhtBHwCSxjI724ILrdGv M4UXCossJgD7GoJPNwnFux KsH3e2V4Xe56LVNJTYGuvx wvdGQ+PHRk NWN4fFdvTCduKESrkH7xTQ EwI8l5RgXjKeO0IFymJ5Xy WCYzdsojWn73jU2uSsVeKp S9OOopL1Pr gfP1AKYosMJvJXmyPHX4F6 8nb9V4GFQjXBOuVFO6jKB1 hU9heYjlcdnqdMXarPectr VydGljYWwt SGmzP836EWYjvSduTkSioU FsZTwvdGQ+JGWqQDL0tSen RTkbZNFbzB1vHSXwX8x8Nq WxXgI0MAvy U6YvZAFfcrmaDv62wN0uSe MfIqR5MLfwS9DexkK4NHDc aEZlRBycWKK9U98td2O6UT MwMDAwMDA7 dRK4yW8reKtytpotyEMpyW trdjBcsDnhGMqiGFeoK989 DVXsoPrjAy95zEBesWstbv K8X6DpBlpx dHI+IB84BBNoBJ68oKAuuQ Lvx5faeOv6NlIsPACnXIO4 wUqzOOqet4XpEENvS97lsF Rmy6W4TJDq gMjunOWtNsMgtBO9cQ8sTA yrwsynm9fvlwldRnkto8mr nz62yX82Y68oYCszYEQrLO IzMCUiIHZh pRbguq2roH5bYe3+PGNvbC X7gRF1aO5nGgRoEbU2EOiu S329YpRpwYOnXoumt3vrz1 qsnWz9GrFe BAYozaNyyUkrALL2q0AuSd 06Z16oNPryZOSpSCRuWBEj ZDEhqUzdpd8jeZ7wWl5+PC 3nr9gdmp04 kT00hKV+YVTeWDF4lOvtUO fsDIJchO9zQIauVsN3GAGc VsPdeO34yWYkZKnrYx0eqU ddkXxuXA1b WIJtgoyij630CqLhi3iqFP OlwMAmAAstJAP2H08xb1G5 KRXqIXJpRFT9wDT2xJ7chS lnbjogbGVm dDsgdmVydGljYWwtYWxpZ2 47MQKlsGndLwDstKQiP5dt sjKHGJ1gAdukxDU+PHRkIH L2mCrfYNge QCAnxT4qYPWpH2k0RhNpDz D1IOaaC9ScypC3ATAyaQMc BHKebSARwO2eadiut9jxti ogIzAwMDAw QHz0ZPt5ERKtlMdsWmIrGU X8BjE7SIV0rJJouF2eiTdb bkerdY6iOcu+RklOOjwvdG Q+PHRkIHN0 yHurXRriJVZrfB5mBOViW7 f8MoQhYwN5RDckL6VqxkP3 OPYdnMPvKCQlaBAIpY8etm kgm1mfwllw FkDxTFOkNFj7HOd9MUNgkH xtGeRxIOR5RvN9MEY0pDDd sJ1trRorkvdbzW3kYmv+TV JOOjwvdGQ+ VUVzQSU0gBcgCOouEHRxoC 4aBIIaY5w6WbAyEnY3MAzo P1HdjbL6RTMfhHKbIEOnjC RRqV8tbkuw a5ztjgldWnMpVUKjYGt5UA j7OCKdlJpfBvFaMMZ2PhE9 CSD7cJJuaW4zbBboslarjT 9wOyc+UGF5 DSG6MS69ZH87C0YqLhlltK FibGU+PHRhYmxlIHdpZHRo RAmkWAXmDnPlsIsaSD7xGe 9yZGVyLWNv bGxh (more content not included)... [facility] FRESH FROZ PLASMAon 07-17-19 23 ABO and Rh group Nom (Bld) Unit Blood Type O Pos Unit Number [id number] Status Information Transfused Product ID FFP Product Code [id number] Unit Blood Type O Pos Unit Number [id number] Status Information Transfused Product ID FFP Product Code [id number] Normal [facility] Comment on above: Performed By: #### F FP #### [facility] [address] [address] [address] Carla Little Physician Orderon 07-11-2022 Physician Order [id number]#1. 00CD:127 Normal [facility] Consent for Treatmenton 06-13 Consent for Treatment [id number]#1.0 0CD:127 Normal [facility] Heart and Vascular Office/Cl inic Noteon 07-08-2022 [...] have episode of angioedema requiring hospitalization at [facility] in [place]. Her lisinopril was discontinued. She is here today to follow-up. She has been doing fairly well since her discharge from [facility]. She is at [facility]. She has been having issues with [...] artery disease) (I25.10: Atherosclerotic heart disease of [place] coronary artery without angina pectoris) CAD post [...] to angioedema Follow-up With When Contact Information Juancho Contreras MD Within 4 weeks [address] [place] [address]- [phone] Additional Instructions: Problem List/Past Medical History Ongoing [...] Cardiac arrest COPD Glaucoma H/O: TIA HEMATURIA HI - myocardial infarction STEMI - ST elevation [...] Stents, bilate (more content not included)... 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 Normal [facility] Recordson 06-28 [facility] Records [id number]#1.0 0CD:127 [facility] Prescriptions/Work Noteson 0 06-27-2022 Prescriptions/Work Notes [id number]#1.0 0CD:127 [facility] Outside Hospital Correspo ndenceon 06-21-2022 Outside Hospital Correspondence [id number]#1.0 0CD:127 [facility] Outside Recordson 06-21-2022 Outside Records [id number]#1.0 0CD:127 [facility] Basic Metab w/rfx MGon 06-20 Anion gap [Moles/Vol] 10 mmol/L Normal -17 [facility] Comment on above: Performed By: #### M RSANO #### [facility] [employer] [address] [place] [address] [phone] Buttonhole Tacker: Sidney Epps MD Chloride [Moles/Vol] 105 mmol/L Normal 98-107 [facility] Comment on above: Performed By: #### M RSANO #### [facility] [address] [place], [place] [id number] Buttonhole Tacker: Sidney Epps MD CO2 [Moles/Vol] 23 mmol/L Normal 20-31 [facility] Comment on above: Performed By: #### M RSANO #### [facility] [employer] [address] [place] [address] [phone] Buttonhole Tacker: Sidney Epps MD Creatinine [Mass/Vol] 1.38 mg/dL High 0.50-0.90 [facility] Comment on above: Performed By: #### M RSANO #### [address] [address] Buttonhole Tacker: Sidney Epps MD GFR/1.73 sq M.predicted among non-blacks MDRD (S/P/Bld) [Vol rate/Area] 38 mL/min/{1.73_m2} Low >60 [facility] Comment on above: Result Comment: These [...] secretion. Performed By: #### M RSANO #### [facility] [employer] [address] [place] [address] Buttonhole Tacker: Sidney Epps MD Glucose [Mass/Vol] 96 mg/dL Normal 70-99 [facility] Comment on above: Performed By: #### M RSANO #### [facility] [employer] [address] [place] [address] Buttonhole Tacker: Sidney Epps MD Potassium [Moles/Vol] 4.6 mmol/L Normal 3.7-5.3 [facility] Comment on above: Performed By: #### M RSANO #### [facility] [employer] [address] [place] [address] Buttonhole Tacker: Sidney Epps MD Sodium [Moles/Vol] 138 mmol/L Normal 135-144 [facility] Comment on above: Performed By: #### M RSANO #### [facility] [employer] [address] [place] [address] Buttonhole Tacker: Sidney Epps MD Urea nitrogen [Mass/Vol] 33 mg/dL High 8-23 [facility] Comment on above: Performed By: #### M RSANO #### [facility] [address] [place], [place] [phone] Buttonhole Tacker: Sidney Epps MD Calcium [Mass/Vol] 8.8 mg/dL Normal 8.6-10.4 [facility] Comment on above: Performed By: #### M RSANO #### [facility] [address] [place], [place] [phone] Buttonhole Tacker: Sidney Epps MD Basic Metabolic Panel w/ Ref rashid to MGon 06-20-2022 Anion gap [Moles/Vol] 10 mmol/L 9 - 17 mmol/L [facility] [employer] Chloride [Moles/Vol] 105 mmol/L 98 - 107 mmol/L [facility] [employer] CO2 [Moles/Vol] 23 mmol/L 20 - 31 mmol/L [facility] [employer] Creatinine [Mass/Vol] 1.38 mg/dL High 0.50 - 0.90 mg/dL [facility] [employer] GFR/1.73 sq M.predicted MDRD (S/P/Bld) [Vol rate/Area] 38 mL/min/{1.73_m2} Low - PINF [facility] [employer] Comment on above: These results are not [...] [Mass/Vol] 96 mg/dL 70 - 99 mg/dL [facility] [employer] Interpretation and review of laboratory results Abnormal [facility] [employer] Potassium [Moles/Vol] 4.6 mmol/L 3.7 - 5.3 mmol/L [facility] Sodium [Moles/Vol] 138 mmol/L 135 - 144 mmol/L [facility] [employer] Urea nitrogen [Mass/Vol] 33 mg/dL High 8 - 23 mg/dL [facility] CBC with Auto Differentialon 06-20-2022 Absolute Eos # [facility] Absolute Immature Granulocyte 0.24 [facility] Absolute Lymph # 0.71 Low [facility] Absolute [place] # 1.15 [facility] Basophils Absolute [facility] Basophils/100 WBC (Bld) 0 % 0 - 2 % [facility] Eosinophils/100 WBC (Bld) 0 % Low 1 - 4 % [facility] Hematocrit (Bld) [Volume fraction] 32.7 % Low 36.3 - 47.1 % [facility] Hemoglobin (Bld) [Mass/Vol] 10.8 g/dL Low 11.9 - 15.1 g/dL [facility] Immature granulocytes/100 WBC (Bld) 2 % High 0 [facility] Interpretation and review of laboratory results Abnormal [facility] Lymphocytes/100 WBC (Bld) 5 % Low 24 - 43 % [facility] MCH (RBC) [Entitic mass] 30.0 pg 25.2 - 33.5 pg [facility] MCHC (RBC) [Mass/Vol] 33.0 g/dL 28.4 - 34.8 g/dL [facility] MCV (RBC) [Entitic vol] 90.8 fL 82.6 - 102.9 fL [facility] Monocytes/100 WBC (Bld) 7 % 3 - 12 % [facility] NRBC Automated 0.0 0.[address] [facility] Platelet distribution width (Bld) [Ratio] 14.4 % 11.8 - 14.4 % [facility] Platelet mean volume (Bld) [Entitic vol] 10.3 fL 8.1 - 13.5 fL [facility] Platelets (Bld) [#/Vol] 218 10*3/uL [facility] RBC (Bld) [#/Vol] 3.60 10*6/uL Low 3.95 - 5.11 m/uL [facility] Segmented neutrophils/100 WBC (Bld) 87 % High 36 - 65 % [facility] Segs Absolute 13.71 High [facility] WBC (Bld) [#/Vol] 15.8 10*3/uL High [facility] CBC with Diffon 06-20-2022 Abs. Basophil <0.03 Normal 0.00-0.20 [facility] Comment on above: Performed By: #### M RSANO #### [facility] [employer] [address] [place] [address] Buttonhole Tacker: Sidney Epps MD Abs. Eosinophil <0.03 Normal 0.00-0.44 [facility] Comment on above: Performed By: #### M RSANO #### [facility] [employer] [address] [place] [address] Buttonhole Tacker: Sidney Epps MD Abs.Imm.Granulocyt e 0.24 k/uL Normal 0.00-0.30 [facility] Comment on above: Performed By: #### M RSANO #### [address] [address] Buttonhole Tacker: Sidney Epps MD Abs.Neutrophil (Seg) 13.71 k/uL High 1.50-8.10 [facility] Comment on above: Performed By: #### M RSANO #### [facility] [employer] [address] [place] [address] Buttonhole Tacker: Sidney Epps MD Basophils/100 WBC (Bld) 0 % Normal 0-2 [facility] Comment on above: Performed By: #### M RSANO #### [facility] [employer] [address] [place] [address] Buttonhole Tacker: Sidney Epps MD Eosinophils/100 WBC (Bld) 0 % Low 1-4 [facility] Comment on above: Performed By: #### M RSANO #### [facility] [employer] [address] [place] [address] Buttonhole Tacker: Sidney Epps MD Erythrocyte distribution width (RBC) [Ratio] 14.4 % Normal 11.8-14.4 [facility] Comment on above: Performed By: #### M RSANO #### [address] [address] Buttonhole Tacker: Sidney Epps MD Hematocrit (Bld) [Volume fraction] 32.7 % Low 36.3-47.1 [facility] Comment on above: Performed By: #### M RSANO #### [address] [address] Buttonhole Tacker: Sidney Epps MD Hemoglobin (Bld) [Mass/Vol] 10.8 g/dL Low 11.9-15.1 [facility] Comment on above: Performed By: #### M RSANO #### [address] [address] Buttonhole Tacker: Sidney Epps MD Immature granulocytes/100 WBC (Bld) 2 % High 0 [facility] Comment on above: Performed By: #### M RSANO #### [address] [address] Buttonhole Tacker: Sidney Epps MD Lymphocytes (Bld) [#/Vol] 0.71 10*3/uL Low 1.10-3.70 [facility] Comment on above: Performed By: #### M RSANO #### [address] [address] Buttonhole Tacker: Sidney Epps MD Lymphocytes/100 WBC (Bld) 5 % Low 24-43 [facility] Comment on above: Performed By: #### M RSANO #### [address] [address] Buttonhole Tacker: Sidney Epps MD MCH (RBC) [Entitic mass] 30.0 pg Normal 25.2-33.5 [facility] Comment on above: Performed By: #### M RSANO #### [address] [address] Buttonhole Tacker: Sidney Epps MD MCHC (RBC) [Mass/Vol] 33.0 g/dL Normal 28.4-34.8 [facility] Comment on above: Performed By: #### M RSANO #### [address] [address] Buttonhole Tacker: Sidney Epps MD MCV (RBC) [Entitic vol] 90.8 fL Normal 82.6-102.9 [facility] Comment on above: Performed By: #### M RSANO #### [address] [address] Buttonhole Tacker: Sidney Epps MD Monocytes (Bld) [#/Vol] 1.15 10*3/uL Normal 0.10-1.20 [facility] Comment on above: Performed By: #### M RSANO #### [address] [address] Buttonhole Tacker: Sidney Epps MD Monocytes/100 WBC (Bld) 7 % Normal 3-12 [facility] Comment on above: Performed By: #### M RSANO #### [address] [address] Buttonhole Tacker: Sidney Epps MD Neutrophil (Seg) 87 % High 36-65 [facility] Comment on above: Performed By: #### M RSANO #### [address] [address] Buttonhole Tacker: Sidney Epps MD NRBC Automated 0.0 per 100 WBC Normal 0.0 [facility] Comment on above: Performed By: #### M RSANO #### [address] [address] Buttonhole Tacker: Sidney Epps MD Platelet mean volume (Bld) [Entitic vol] 10.3 fL Normal 8.1-13.5 [facility] Comment on above: Performed By: #### M RSANO #### [id number] [place] [address] Buttonhole Tacker: Sidney Epps MD Platelets (Bld) [#/Vol] 218 10*3/uL Normal 138-453 [facility] Comment on above: Performed By: #### M RSANO #### [address] [address] Buttonhole Tacker: Sidney Epps MD RBC (Bld) [#/Vol] 3.60 10*6/uL Low 3.95-5.11 [facility] Comment on above: Performed By: #### M RSANO #### [address] [address] Buttonhole Tacker: Sidney Epps MD WBC (Bld) [#/Vol] 15.8 10*3/uL High 3.5-11.3 [facility] Comment on above: Performed By: #### M RSANO #### [address] [address] Buttonhole Tacker: Sidney Epps MD RAD - CT Reporton 06-20-2022 RAD - CT Report [id number] 0CD:127 Normal [facility] RAD - MISCon 06-20-2022 RAD - MISC [id number] 20 [id number]#[id number] 0CD:127 Normal [facility] Basic Metab w/rfx MGon 06-19 Anion gap [Moles/Vol] 14 mmol/L Normal 9-17 [facility] Comment on above: Performed By: #### C DP, BMPX ####[facility] [address] [place] [address] Lab Director: Sidney Epps MD Calcium [Mass/Vol] 9.4 mg/dL Normal 8.6-10.4 [facility] Comment on above: Performed By: #### C DP, BMPX ####[facility] [address] [place], [place] [phone] Director: Sidney Epps MD Chloride [Moles/Vol] 104 mmol/L Normal 98-107 [facility] Comment on above: Performed By: #### C DP, BMPX ####[facility] [address] [place], [place] [phone] Director: Sidney Epps MD CO2 [Moles/Vol] 18 mmol/L Low 20-31 [facility] Comment on above: Performed By: #### C DP, BMPX ####[address] [phone] Director: Sidney Epps MD Creatinine [Mass/Vol] 1.41 mg/dL High 0.50-0.90 [facility] Comment on above: Performed By: #### C DP, BMPX ####[address] [address] Lab Director: Sidney Epps MD GFR/1.73 sq M.predicted among non-blacks MDRD (S/P/Bld) [Vol rate/Area] 37 mL/min/{1.73_m2} Low >60 [facility] Comment on above: Result Comment: These [...] secretion. Performed By: #### C DP, BMPX ####[facility] [address] [place] [address] Lab Director: Sidney Epps MD Glucose [Mass/Vol] 122 mg/dL High 70-99 [facility] Comment on above: Performed By: #### C DP, BMPX ####[facility] [address] [place] [address] Lab Director: Sidney Epps MD Potassium [Moles/Vol] 4.6 mmol/L Normal 3.7-5.3 [facility] Comment on above: Performed By: #### C DP, BMPX ####[facility] [address] [place] [address] Lab Director: Sidney Epps MD Sodium [Moles/Vol] 136 mmol/L Normal 135-144 [facility] Comment on above: Performed By: #### C DP, BMPX ####[facility] [address] [place] [address] Lab Director: Sidney Epps MD Urea nitrogen [Mass/Vol] 32 mg/dL High 8-23 [facility] Comment on above: Performed By: #### C DP, BMPX ####[facility] [address] [place] [address] Lab Director: Sidney Epps MD Basic Metabolic Panel w/ Ref rashid to MGon 06-19-2022 Anion gap [Moles/Vol] 14 mmol/L 9 - 17 mmol/L [facility] [employer] Calcium [Mass/Vol] 9.4 mg/dL 8.6 - 10.4 mg/dL [facility] Chloride [Moles/Vol] 104 mmol/L 98 - 107 mmol/L [facility] [employer] CO2 [Moles/Vol] 18 mmol/L Low 20 - 31 mmol/L [facility] Creatinine [Mass/Vol] 1.41 mg/dL High 0.50 - 0.90 mg/dL [facility] GFR/1.73 sq M.predicted MDRD (S/P/Bld) [Vol rate/Area] 37 mL/min/{1.73_m2} Low - PINF [facility] Comment on above: These results are not [...] 122 mg/dL High 70 - 99 mg/dL [facility] Interpretation and review of laboratory results Abnormal [facility] Potassium [Moles/Vol] 4.6 mmol/L 3.7 - 5.3 mmol/L [facility] Sodium [Moles/Vol] 136 mmol/L 135 - 144 mmol/L [facility] Urea nitrogen [Mass/Vol] 32 mg/dL High 8 - 23 mg/dL [facility] CBC with Auto Differentialon 06-19-2022 Absolute Eos # 0.00 [place] [facility] Absolute Immature Granulocyte 0.43 High [facility] Absolute Lymph # 0.65 Low [facility] URS [facility] Absolute [place] # 0.86 [facility] Basophils (Bld) [#/Vol] 0.00 10*3/uL [facility] Basophils/100 WBC (Bld) 0 % 0 - 2 % [facility] Eosinophils/100 WBC (Bld) 0 % Low 1 - 4 % [facility] Hematocrit (Bld) [Volume fraction] 31.7 % Low 36.3 - 47.1 % [facility] Hemoglobin (Bld) [Mass/Vol] 9.5 g/dL Low 11.9 - 15.1 g/dL [facility] Immature granulocytes/100 WBC (Bld) 2 % High 0 [facility] Interpretation and review of laboratory results Abnormal [facility] Lymphocytes/100 WBC (Bld) 3 % Low 24 - 43 % [facility] MCH (RBC) [Entitic mass] 29.9 pg 25.2 - 33.5 pg [facility] MCHC (RBC) [Mass/Vol] 30.0 g/dL 28.4 - 34.8 g/dL [facility] MCV (RBC) [Entitic vol] 99.7 fL 82.6 - 102.9 fL [facility] Monocytes/100 WBC (Bld) 4 % 3 - 12 % [facility] Morphology Min (Bld) [Interp] ANISOCYTOSIS PRESENT [facility] NRBC Automated 0.0 0.0 per 100 WBC [facility] Platelet distribution width (Bld) [Ratio] 14.6 % High 11.8 - 14.4 % [facility] Platelet mean volume (Bld) [Entitic vol] 10.6 fL 8.1 - 13.5 fL [facility] Platelets (Bld) [#/Vol] 232 10*3/uL [facility] RBC (Bld) [#/Vol] 3.18 10*6/uL Low 3.95 - 5.11 m/uL [facility] Segmented neutrophils/100 WBC (Bld) 91 % High 36 - 65 % [facility] Segs Absolute 19.56 High [facility] WBC (Bld) [#/Vol] 21.5 10*3/uL High [facility] CBC with Diffon 06-19-2022 Abs. Basophil 0.00 k/uL Normal 0.00-0.20 [facility] Comment on above: Performed By: #### C DP BMPX ####[facility] [place] [address] Lab Director: Sidney Epps MD Abs.Imm.Granulocyt e 0.43 k/uL High 0.00-0.30 [facility] Comment on above: Performed By: #### C DP, BMPX ####[facility] [place] [phone] lab Director: Sidney Epps MD Abs.Neutrophil (Seg) 19.56 k/uL High 1.50-8.10 [facility] Comment on above: Performed By: #### C DP, BMPX ####[facility] [address] [place], [place] [phone] Director: Sidney Epps MD Basophils/100 WBC (Bld) 0 % Normal 0-2 [facility] Comment on above: Performed By: #### C DP, BMPX ####[address] [phone] Director: Sidney Epps MD Eosinophils (Bld) [#/Vol] 0.00 10*3/uL Normal 0.00-0.44 [facility] Comment on above: Performed By: #### C DP, BMPX ####[address] [address])[phone] Director: Sidney Epps MD Eosinophils/100 WBC (Bld) 0 % Low 1-4 [facility] Comment on above: Performed By: #### C DP, BMPX ####[address] [address])[phone] Director: Sidney Epps MD Immature granulocytes/100 WBC (Bld) 2 % High 0 [facility] Comment on above: Performed By: #### C DP, BMPX ####[address] [address])[phone] Director: Sidney Epps MD Lymphocytes (Bld) [#/Vol] 0.65 10*3/uL Low 1.10-3.70 [facility] Comment on above: Performed By: #### C DP, BMPX ####[facility] [address] [place] [address] [phone] Director: Sidney Epps MD Lymphocytes/100 WBC (Bld) 3 % Low 24-43 [facility] Comment on above: Performed By: #### C DP, BMPX ####[address] [address])[phone] Director: Sidney Epps MD Monocytes (Bld) [#/Vol] 0.86 10*3/uL Normal 0.10-1.20 [facility] Comment on above: Performed By: #### C DP, BMPX ####[address] [phone] Director: Sidney Epps MD Monocytes/100 WBC (Bld) 4 % Normal 3-12 [facility] Comment on above: Performed By: #### C DP, BMPX ####[address] [phone] Director: Sidney Epps MD Morphology Min (Bld) [Interp] ANISOCYTOSIS PRESENT Normal [facility] Comment on above: Performed By: #### C DP, BMPX ####[address] [address])[phone] Director: Sidney Epps MD Neutrophil (Seg) 91 % High 36-65 [facility] Comment on above: Performed By: #### C DP, BMPX ####[address] [address])[phone] Director: Sidney Epps MD Erythrocyte distribution width (RBC) [Ratio] 14.6 % High 11.8-14.4 [facility] Comment on above: Performed By: #### C DP, BMPX ####[address] [phone] Director: Sidney Epps MD Hematocrit (Bld) [Volume fraction] 31.7 % Low 36.3-47.1 [facility] Comment on above: Performed By: #### C DP, BMPX ####[address] [place], [place] [phone] Director: Sidney Epps MD Hemoglobin (Bld) [Mass/Vol] 9.5 g/dL Low 11.9-15.1 [facility] Comment on above: Performed By: #### C DP, BMPX ####[facility] [address] [place] [address])[phone] Director: Sidney Epps MD MCH (RBC) [Entitic mass] 29.9 pg Normal 25.2-33.5 [facility] Comment on above: Performed By: #### C DP, BMPX ####[place], [place] [address])[phone] Director: Sidney Epps MD MCHC (RBC) [Mass/Vol] 30.0 g/dL Normal 28.4-34.8 [facility] Comment on above: Performed By: #### C DP, BMPX ####[place], [place] [address])[phone] Director: Sidney Epps MD MCV (RBC) [Entitic vol] 99.7 fL Normal 82.6-102.9 [facility] Comment on above: Performed By: #### C DP, BMPX ####[place], [place] [address])[phone] Director: Sidney Epps MD NRBC Automated 0.0 per 100 WBC Normal 0.0 [facility] Comment on above: Performed By: #### C DP, BMPX ####[place], [place] [address])[phone] Director: Sidney Epps MD Platelet mean volume (Bld) [Entitic vol] 10.6 fL Normal 8.1-13.5 [facility] Comment on above: Performed By: #### C DP, BMPX ####[place], [place] [address])[phone] Director: Sidney Epps MD Platelets (Bld) [#/Vol] 232 10*3/uL Normal 138-453 [facility] Comment on above: Performed By: #### C DP, BMPX ####[facility] [address] [place] [address] Lab Director: Sidney Epps MD RBC (Bld) [#/Vol] 3.18 10*6/uL Low 3.95-5.11 [facility] Comment on above: Performed By: #### C DP, BMPX ####[facility] [address] [place], [place] [phone] Director: Sidney Epps MD WBC (Bld) [#/Vol] 21.5 10*3/uL High 3.5-11.3 [facility] Comment on above: Performed By: #### C DP, BMPX ####[facility] [address] [place] [address] Lab Director: Sidney Epps MD CT CHEST [...] known risk factors. Radiology 2017 http://pubs.rsna.org/d oi/full/10.1148/radiol .[id number] Interpreted by: Scott Sinha MD Signed by: Scott Sinha MD 06/19/22 Final result Normal [facility] 1. No evidence of acute pneumonia. [...] known risk factors. Radiology 2017 http://pubs.rsna.org/d oi/full/10.1148/radiol .[id number] [facility] RIS CONSOLIDATED EXAMINATION: CT OF THE CHEST [...] known risk factors. Radiology 2017 http://pubs.rsna.org/d oi/full/10.1148/radiol .[id number] [employer] Phone: Radiology Study observation (narrative) [employer] Phone: CT CHEST WO CONTRASTOrdered By: Scott Sinha on 06-19-2022 [employer] Phone: FL MODIFIED BARIUM SWALLOW W VIDEOon 06-19-2022 [place] MODIFIED BARIUM SWALLOW W VIDEO EXAMINATION: MODIFIED BARIUM SWALLOW WAS PERFORMED IN CONJUNCTION WITH SPEECH PATHOLOGY SERVICES TECHNIQUE: Under fluoroscopic evaluation cineradiography/videor adiography recordings were performed in conjunction with the speech-language pathologist (SUPERVISOR INSTRUMENT REPAIR). Various liquid, solid and/or semi-solid barium preparations were used to assess swallowing function. FLUOROSCOPY DOSE AND TYPE OR TIME AND EXPOSURES: DAP 12.661YMung5 COMPARISON: None HISTORY: ORDERING SYSTEM PROVIDED HISTORY: [...] Juancho Ferrara MD 06/19/22 Final result Normal [facility] Swallowing mechanism grossly within normal limits without evidence of aspiration. Please see separate speech pathology report for full discussion of findings and recommendations. [facility] CONSOLIDATED EXAMINATION: MODIFIED BARIUM SWALLOW WAS PERFORMED IN CONJUNCTION WITH SPEECH PATHOLOGY SERVICES TECHNIQUE: Under fluoroscopic evaluation cineradiography/videor adiography recordings were performed in conjunction with the speech-language pathologist (SUPERVISOR INSTRUMENT REPAIR). Various liquid, solid and/or semi-solid barium preparations were used to assess swallowing function. FLUOROSCOPY DOSE AND TYPE OR TIME AND EXPOSURES: DAP 12.432JWnwy5 COMPARISON: None HISTORY: ORDERING SYSTEM PROVIDED HISTORY: dysphagia and hx of esophageal dilatation TECHNOLOGIST PROVIDED HISTORY: dysphagia and hx of esophageal dilatation FINDINGS: Patient was given thick and thin barium as well as puree, soft solid and cookie consistency barium. No laryngeal penetration or aspiration. Minimal pooling in the vallecula and piriform sinuses. [facility] CONSOLIDATED Juancho Ferrara MD - 06/19/2022 EXAMINATION: MODIFIED BARIUM SWALLOW WAS PERFORMED IN CONJUNCTION WITH SPEECH PATHOLOGY SERVICES TECHNIQUE: Under fluoroscopic evaluation cineradiography/videor adiography recordings were performed in conjunction with the speech-language pathologist (SUPERVISOR INSTRUMENT REPAIR). Various liquid, solid and/or semi-solid barium preparations were used to assess swallowing function. FLUOROSCOPY DOSE AND TYPE OR TIME AND EXPOSURES: DAP 12.337SBvmr7 COMPARISON: None HISTORY: ORDERING SYSTEM PROVIDED HISTORY: [...] for full discussion of findings and recommendations. [facility] [employer] Phone: Radiology Study observation (narrative) [facility] Phone: [place] MODIFIED BARIUM SWALLOW W VIDEOOrdered By: Juancho Ferrara on 06-19-2022 [facility] [employer] Work Phone: B12/Folate Panelon 3 Cobalamin (Vitamin B12) [Mass/Vol] 496 pg/mL Normal 232-1245 [facility] Comment on above: Performed By: #### B 12FOL ####[facility] [address] [place] [address] Lab Director: Sidney Epps MD Folic Acid 5.3 ng/mL Normal >4.8 [facility] Comment on above: Performed By: #### B 12FOL ####[address] [place], [place] [phone] Director: Sidney Epps MD Basic Metab w/rfx MGon 06-18 Anion gap [Moles/Vol] 11 mmol/L Normal 9-17 [facility] Comment on above: Performed By: #### F KRISTEN, IPF, CDP, BMPX, FEBC ####[facility] [address] [place], [place] [phone] Director: Sidney Epps MD Calcium [Mass/Vol] 9.2 mg/dL Normal 8.6-10.4 [facility] Comment on above: Performed By: #### F KRISTEN, IPF, CDP, BMPX, FEBC ####[facility] [address] [place], [place] [phone] Director: Sidney Epps MD Chloride [Moles/Vol] 112 mmol/L High 98-107 [facility] Comment on above: Performed By: #### F KRISTEN, IPF, CDP, BMPX, FEBC ####[facility] [address] [place], [place] [phone] Director: Sidney Epps MD CO2 [Moles/Vol] 20 mmol/L Normal 20-31 [facility] Comment on above: Performed By: #### F RKISTEN, IPF, CDP, BMPX, FEBC ####[facility] [address] [place] [address] Lab Director: Sidney Epps MD Creatinine [Mass/Vol] 1.51 mg/dL High 0.50-0.90 [facility] Comment on above: Performed By: #### F KRISTEN, IPF, CDP, BMPX, FEBC ####[place] [place] [address] Lab Director: Sidney Epps MD GFR/1.73 sq M.predicted among non-blacks MDRD (S/P/Bld) [Vol rate/Area] 34 mL/min/{1.73_m2} Low >60 [facility] Comment on above: Result Comment: These [...] #### F KRISTEN, IPF, CDP, BMPX, FEBC ####[address] [place] [address] Lab Director: Sidney Epps MD Glucose [Mass/Vol] 153 mg/dL High 70-99 [facility] Comment on above: Performed By: #### F KRISTEN, IPF, CDP, BMPX, FEBC ####[facility] [address] [place] [address] Lab Director: Sidney Epps MD Potassium [Moles/Vol] 4.5 mmol/L Normal 3.7-5.3 [facility] Comment on above: Performed By: #### F KRISTEN, IPF, CDP, BMPX, FEBC ####[facility] [address] [place] [address] Lab Director: Sidney Epps MD Sodium [Moles/Vol] 143 mmol/L Normal 135-144 [facility] Comment on above: Performed By: #### F KRISTEN, IPF, CDP, BMPX, FEBC ####[employer] [address] [place], [place] 8751108 Lab Director: Sidney Epps MD Urea nitrogen [Mass/Vol] 27 mg/dL High 8-23 [facility] Comment on above: Performed By: #### F KRISTEN, IPF, CDP, BMPX, FEBC ####[employer] [address] [place], [place] [phone] lab Director: Sidney Epps MD Basic Metabolic Panel w/ Ref rashid to [facility] 06-18-2022 Anion gap [Moles/Vol] 11 mmol/L 9 - 17 mmol/L [employer] Calcium [Mass/Vol] 9.2 mg/dL 8.6 - 10.4 mg/dL [facility] Chloride [Moles/Vol] 112 mmol/L High 98 - 107 mmol/L [facility] CO2 [Moles/Vol] 20 mmol/L 20 - 31 mmol/L [facility] [employer] Creatinine [Mass/Vol] 1.51 mg/dL High 0.50 - 0.90 mg/dL [facility] GFR/1.73 sq M.predicted MDRD (S/P/Bld) [Vol rate/Area] 34 mL/min/{1.73_m2} Low - PINF [facility] Comment on above: These results are not [...] 153 mg/dL High 70 - 99 mg/dL [facility] Interpretation and review of laboratory results Abnormal [facility] Potassium [Moles/Vol] 4.5 mmol/L 3.7 - 5.3 mmol/L [facility] Sodium [Moles/Vol] 143 mmol/L 135 - 144 mmol/L [facility] Urea nitrogen [Mass/Vol] 27 mg/dL High 8 - 23 mg/dL [facility] C1 ESTERASE INHIBITOR PANELo n 06-18-2022 C1 Esterase Inhibitor 38 mg/dL 21 - 38 mg/dL [facility] Comment on above: (NOTE) Performed By: [employer] [address] [place], [place] [id number] Molding Machine Operator Helper: Alessio Hung MD, PhD [facility] C1 Esterase Inhibon 06-18-19 C1 Esterase Inhib 38 mg/dL Normal 21-38 [facility] Comment on above: Result Comment: (NOT E) Performed By: [employer] [address] [place] [address] Molding Machine Operator Helper: Alessio Hung MD, PhD Performed By: #### S ED, BNP, CMPX, CRP, IPF, CDP, C4 ####[facility] [address] [place] [address] Lab Director: Sidney Epps MD#### AC1EIN ####[facility] [address] [place] [address] lab Director: Bob Florence MD CBC with Auto Differentialon 06-18-2022 Absolute Eos # 0.00 [place] [facility] Absolute Immature Granulocyte 0.47 High [facility] Absolute Lymph # 1.17 [place] [facility] Absolute [place] # 0.93 [facility] Basophils (Bld) [#/Vol] 0.00 10*3/uL [facility] Basophils/100 WBC (Bld) 0 % 0 - 2 % [facility] Eosinophils/100 WBC (Bld) 0 % Low 1 - 4 % [facility] Hematocrit (Bld) [Volume fraction] 29.1 % Low 36.3 - 47.1 % [facility] Hemoglobin (Bld) [Mass/Vol] 9.4 g/dL Low 11.9 - 15.1 g/dL [facility] Immature granulocytes/100 WBC (Bld) 2 % High 0 [facility] Interpretation and review of laboratory results Abnormal [facility] Lymphocytes/100 WBC (Bld) 5 % Low 24 - 43 % [facility] MCH (RBC) [Entitic mass] 29.8 pg 25.2 - 33.5 pg [facility] MCHC (RBC) [Mass/Vol] 32.3 g/dL 28.4 - 34.8 g/dL [facility] MCV (RBC) [Entitic vol] 92.4 fL 82.6 - 102.9 fL [facility] Monocytes/100 WBC (Bld) 4 % 3 - 12 % [facility] Morphology Min (Bld) [Interp] ANISOCYTOSIS PRESENT [facility] NRBC Automated 0.0 0.0 per 100 WBC [facility] Platelet distribution width (Bld) [Ratio] 14.6 % High 11.8 - 14.4 % [facility] Platelets (Bld) [#/Vol] See Reflexed IPF Result [facility] RBC (Bld) [#/Vol] 3.15 10*6/uL Low 3.95 - 5.11 m/uL [facility] Segmented neutrophils/100 WBC (Bld) 89 % High 36 - 65 % [facility] Segs Absolute 20.73 High [facility] WBC (Bld) [#/Vol] 23.3 10*3/uL High [facility] CBC with Diffon 06-18-2022 Abs. Basophil 0.00 k/uL Normal 0.00-0.20 [facility] Comment on above: Performed By: #### F KRISTEN, IPF, CDP, BMPX, FEBC ####[address] [place], [place] [id number] lab Director: Sidney Epps MD Abs.Imm.Granulocyt e 0.47 k/uL High 0.00-0.30 [facility] Comment on above: Performed By: #### F KRISTEN, IPF, CDP, BMPX, FEBC ####[address] [place], [place] [phone] Director: Sidney Epps MD Abs.Neutrophil (Seg) 20.73 k/uL High 1.50-8.10 [facility] Comment on above: Performed By: #### F KRISTEN, IPF, CDP, BMPX, FEBC ####[facility] [address] [place] [address])[phone] Director: Sidney Epps MD Basophils/100 WBC (Bld) 0 % Normal 0-2 [facility] Comment on above: Performed By: #### F KRISTEN, IPF, CDP, BMPX, FEBC ####[address] [address])[phone] Director: Sidney Epps MD Eosinophils (Bld) [#/Vol] 0.00 10*3/uL Normal 0.00-0.44 [facility] Comment on above: Performed By: #### F KRISTEN, IPF, CDP, BMPX, FEBC ####[facility] [address] [place] [address])[phone] Director: Sidney Epps MD Eosinophils/100 WBC (Bld) 0 % Low 1-4 [facility] Comment on above: Performed By: #### F KRISTEN, IPF, CDP, BMPX, FEBC ####[facility] [address] [place] [address])[phone] Director: Sidney Epps MD Immature granulocytes/100 WBC (Bld) 2 % High 0 [facility] Comment on above: Performed By: #### F KRISTEN, IPF, CDP, BMPX, FEBC ####[address] [address])[phone] Director: Sidney Epps MD Lymphocytes (Bld) [#/Vol] 1.17 10*3/uL Normal 1.10-3.70 [facility] Comment on above: Performed By: #### F KRISTEN, IPF, CDP, BMPX, FEBC ####[facility] [address] [place], [place] [id number])[phone] Director: Sidney Epps MD Lymphocytes/100 WBC (Bld) 5 % Low 24-43 [facility] Comment on above: Performed By: #### F KRISTEN, IPF, CDP, BMPX, FEBC ####[facility] [address] [place] [address] [phone] Director: Sidney Epps MD Monocytes (Bld) [#/Vol] 0.93 10*3/uL Normal 0.10-1.20 [facility] Comment on above: Performed By: #### F KRISTEN, IPF, CDP, BMPX, FEBC ####[address] [phone] Director: Sidney Epps MD Monocytes/100 WBC (Bld) 4 % Normal 3-12 [facility] Comment on above: Performed By: #### F KRISTEN, IPF, CDP, BMPX, FEBC ####[address] [phone] Director: Sidney Epps MD Morphology Min (Bld) [Interp] ANISOCYTOSIS PRESENT Normal [facility] Comment on above: Performed By: #### F KRISTEN, IPF, CDP, BMPX, FEBC ####[facility] [address] [place] [address] [phone] Director: Sidney Epps MD Neutrophil (Seg) 89 % High 36-65 [facility] Comment on above: Performed By: #### F KRISTEN, IPF, CDP, BMPX, FEBC ####[facility] [address] [place], [place] [phone] Director: Sidney Epps MD Erythrocyte distribution width (RBC) [Ratio] 14.6 % High 11.8-14.4 [facility] Comment on above: Performed By: #### F KRISTEN, IPF, CDP, BMPX, FEBC ####[facility] [address] [place] [address] Lab Director: Sidney Epps MD Hematocrit (Bld) [Volume fraction] 29.1 % Low 36.3-47.1 [facility] Comment on above: Performed By: #### F KRISTEN, IPF, CDP, BMPX, FEBC ####[facility] [address]76 [place] [address] Lab Director: Sidney Epps MD Hemoglobin (Bld) [Mass/Vol] 9.4 g/dL Low 11.9-15.1 [facility] Comment on above: Performed By: #### F KRISTEN, IPF, CDP, BMPX, FEBC ####[facility] [address] [place] [address] Lab Director: Sidney Epps MD MCH (RBC) [Entitic mass] 29.8 pg Normal 25.2-33.5 [facility] Comment on above: Performed By: #### F KRISTEN, IPF, CDP, BMPX, FEBC ####[facility] [address] [place], [place] [phone] Director: Sidney Epps MD MCHC (RBC) [Mass/Vol] 32.3 g/dL Normal 28.4-34.8 [facility] Comment on above: Performed By: #### F KRISTEN, IPF, CDP, BMPX, FEBC ####[facility] [address] [place], [place] [phone] Director: Sidney Epps MD MCV (RBC) [Entitic vol] 92.4 fL Normal 82.6-102.9 [facility] Comment on above: Performed By: #### F KRISTEN, IPF, CDP, BMPX, FEBC ####[facility] [address] [place] [address] Lab Director: Sidney Epps MD NRBC Automated 0.0 per 100 WBC Normal 0.0 [facility] Comment on above: Performed By: #### F KRISTEN, IPF, CDP, BMPX, FEBC ####[facility] [address] [place], [place] [phone] Director: Sidney Epps MD Platelet Count See Reflexed IPF Result Normal 138-453 [facility] Comment on above: Performed By: #### F KRISTEN, IPF, CDP, BMPX, FEBC ####[facility] [address] [place] [address] Lab Director: Sidney Epps MD RBC (Bld) [#/Vol] 3.15 10*6/uL Low 3.95-5.11 [facility] Comment on above: Performed By: #### F KRISTEN, IPF, CDP, BMPX, FEBC ####[facility] [address] [place] [address] Lab Director: Sidney Epps MD WBC (Bld) [#/Vol] 23.3 10*3/uL High 3.5-11.3 [facility] Comment on above: Performed By: #### F KRISTEN, IPF, CDP, BMPX, FEBC ####[facility] [address] [place], [place] [phone] Director: Sidney Epps MD EKG 12 leadOrdered By: Unkno wn Result on 06-18-2022 Atrial Rate 94 BPM [facility] P Rayle 119 degrees [facility] P-R Interval 168 ms [facility] Q-T Interval 370 ms [facility] QRS Duration 74 ms [facility] QTc Calculation (Bazett) 462 ms [facility] R Rayle 171 degrees [facility] T Rayle 120 degrees [facility] Ventricular Rate 94 BPM [facility] EKG 12 leadon 06-18-2022 Suspect arm lead reversal, interpretation assumes no reversal Normal sinus rhythm Right axis deviation Nonspecific ST abnormality Abnormal ECG No previous ECGs available [facility] STV MUSE Result, Unknown Provider - 06/18/2022 Suspect arm lead reversal, interpretation assumes no reversal Normal sinus rhythm Right axis deviation Nonspecific ST abnormality Abnormal ECG No previous ECGs available [employer] Work Phone: Ferritinon 06-18-2022 Ferritin [Mass/Vol] 92 ng/mL Normal 13-150 [facility] Comment on above: Performed By: #### F KRISTEN, IPF, CDP, BMPX, FEBC ####[address] [place] [address] Lab Director: Sidney Epps MD Ferritin [Mass/Vol] 92 ng/mL 13 - 150 ng/mL [facility] [employer]8 [facility] [employer] Immature Platelet Fractionon 06-18-2022 Platelet, Fluorescence 223 [facility] Sputnik8 Comment on above: ORDERED BY LAB Platelet, Immature Fraction 2.8 % 1.1 - 10.3 % [facility] [employer] Comment on above: ORDERED BY LAB [facility] [employer]8 Iron Binding Cap.on 06-18-19 23 % Fe Saturation 24 % Normal 20-55 [facility] Comment on above: Performed By: #### F KRISTEN, IPF, CDP, BMPX, FEBC ####[address] [place] [address] Lab Director: Sidney Epps MD Iron [Mass/Vol] 63 ug/dL Normal 37-145 [facility] Comment on above: Performed By: #### F KRISTEN, IPF, CDP, BMPX, FEBC ####[address] [place] [address] Lab Director: Sidney Epps MD Total Fe Binding Cap 260 ug/dL Normal 250-450 [facility] Comment on above: Performed By: #### F KRISTEN, IPF, CDP, BMPX, FEBC ####[address] [place], [place] [phone] Lab Director: Sidney Epps MD Unbound Fe Bind Cap 197 ug/dL Normal 112-347 [facility] Comment on above: Performed By: #### F KRISTEN, IPF, CDP, BMPX, FEBC ####[facility] [address] [place] [address] Lab Director: Sidnye Epps MD Iron and TIBCon 06-18-2022 Iron [Mass/Vol] 63 ug/dL 37 - 145 ug/dL [facility] Iron binding capacity [Mass/Vol] 260 ug/dL 250 - 450 ug/dL [facility] Iron Saturation 24 % 20 - 55 % [facility] UIBC 197 ug/dL 112 - 347 ug/dL [facility] MRSA DNA Probe, Nasalon MRSA, DNA, Nasal Negative NEGATIVE [facility] Comment on above: NEGATIVE: MRSA DNA n ot detected by nucleic acid amplification. Results should be used as an adjunct to nosocomial control efforts to identify patients needing enhanced precautions. The test is not intended to identify patients with staphylococcal infections. Results should not be used to guide or monitor treatment for MRSA infections. Specimen Description .NASAL SWAB [facility] MRSA, DNA, Nasalon MRSA, DNA, Nasal Negative Normal NEG [facility] Comment on above: Result Comment: NEGA TIVE: MRSA DNA not detected by nucleic acid amplification. Results should be used as an adjunct to nosocomial control efforts to identify patients needing enhanced precautions. The test is not intended to identify patients with staphylococcal infections. Results should not be used to guide or monitor treatment for MRSA infections. Performed By: #### M RSANO #### [address] [place] [address] Buttonhole Tacker: Sidney Epps MD PLT, Immature Fract.on 06-18 Platelet, Fluoresc. 223 k/uL Normal 138-453 [facility] Comment on above: Result Comment: ORDE RED BY LAB Performed By: #### F KRISTEN, IPF, CDP, BMPX, FEBC ####[facility] [address] [place], [place] [id number] Lab Director: Sidney Epps MD PLT, Immature Fract. 2.8 % Normal 1.1-10.3 [facility] Comment on above: Result Comment: ORDE RED BY LAB Performed By: #### F KRISTEN, IPF, CDP, BMPX, FEBC ####[facility] [address] [place] [address] Lab Director: Sidney Epps MD Vitamin B12 & Folateon 06-18 Cobalamin (Vitamin B12) [Mass/Vol] 496 pg/mL 232 - 1245 pg/mL [facility] S[employer]nik8 Folate [Mass/Vol] 5.3 ng/mL 4.8 - PINF ng/mL B ON [facility] [employer]8 Brain Natri. Peptideon 06-17 Natriuretic peptide B (Bld) [Mass/Vol] 1834 pg/mL High <300 [facility] Comment on above: Result Comment: An age-independent cutoff point of 300 pg/ml has a 98% negative predictive value excluding acute heart failure. Performed By: #### S ED, BNP, CMPX, CRP, IPF, CDP, C4 #### [facility] [employer] [address] [place], [place] [phone] Buttonhole Tacker: Sidney Epps MD #### AC1EIN #### [facility] [address] [place] [address] Buttonhole Tacker: Bob Florence MD Brain Natriuretic Peptideon 06-17-2022 Natriuretic peptide B (Bld) [Mass/Vol] 1834 pg/mL High NINF - 300 pg/mL [facility] [employer] Comment on above: An age-independent cutoff point of 300 pg/ml has a 98% negative predictive value excluding acute heart failure. C-Reactive Proteinon 023 CRP [Mass/Vol] mg/L Normal 0.0-5.0 [facility] Comment on above: Performed By: #### S ED, BNP, CMPX, CRP, IPF, CDP, C4 #### [facility] [address] [place], [place] [id number] Buttonhole Tacker: Sidney Epps MD #### AC1EIN #### [facility] [address] [place], [place] [id number] Buttonhole Tacker: Bob Florence MD CRP High sensitivity method [Mass/Vol] mg/L 0.0 - 5.0 mg/L [facility] C4on 06-17-2022 C4 33 mg/dL Normal 10-40 [facility] Comment on above: Performed By: #### S ED, BNP, CMPX, CRP, IPF, CDP, C4 #### [facility] [address] [place], [place] [id number] Buttonhole Tacker: Sidney Epps MD #### AC1EIN #### [facility] [address] [place] [address] Buttonhole Tacker: Bob Florence MD C4 COMPLEMENTon 06-17-2022 Complement C4 33 mg/dL 10 - 40 mg/dL [facility] CBC with Auto Differentialon 06-17-2022 Absolute Eos # [facility] Absolute Immature Granulocyte 0.19 [facility] Absolute Lymph # 0.[address] [facility] Absolute [place] # 0.17 [facility] RS [facility] Basophils Absolute [facility] Basophils/100 WBC (Bld) 0 % 0 - 2 % [facility] Eosinophils/100 WBC (Bld) 0 % Low 1 - 4 % [facility] Hematocrit (Bld) [Volume fraction] 32.6 % Low 36.3 - 47.1 % [facility] Hemoglobin (Bld) [Mass/Vol] 10.2 g/dL Low 11.9 - 15.1 g/dL [facility] Immature granulocytes/100 WBC (Bld) 2 % High 0 [facility] Interpretation and review of laboratory results Abnormal [facility] Lymphocytes/100 WBC (Bld) 6 % Low 24 - 43 % [facility] MCH (RBC) [Entitic mass] 29.9 pg 25.2 - 33.5 pg [facility] MCHC (RBC) [Mass/Vol] 31.3 g/dL 28.4 - 34.8 g/dL [facility] MCV (RBC) [Entitic vol] 95.6 fL 82.6 - 102.9 fL [facility] Monocytes/100 WBC (Bld) 1 % Low 3 - 12 % [facility] NRBC Automated 0.0 0.0 per 100 WBC [facility] Platelet distribution width (Bld) [Ratio] 14.2 % 11.8 - 14.4 % [facility] Platelets (Bld) [#/Vol] See Reflexed IPF Result [facility] RBC (Bld) [#/Vol] 3.41 10*6/uL Low 3.95 - 5.11 m/uL [facility] Segmented neutrophils/100 WBC (Bld) 91 % High 36 - 65 % [facility] Segs Absolute 11.59 High [facility] WBC (Bld) [#/Vol] 12.8 10*3/uL High [facility] CBC with Diffon 06-17-2022 Abs. Basophil <0.03 Normal 0.00-0.20 [facility] Comment on above: Performed By: #### S ED, BNP, CMPX, CRP, IPF, CDP, C4 #### [address] [place], [place] [id number] Buttonhole Tacker: Sidney Epps MD #### AC1EIN #### [facility] [address] [place] [address] Buttonhole Tacker: Bob Florence MD Abs. Eosinophil <0.03 Normal 0.00-0.44 [facility] Comment on above: Performed By: #### S ED, BNP, CMPX, CRP, IPF, CDP, C4 #### [address] [place], [place] [id number] Buttonhole Tacker: Sidney Epps MD #### AC1EIN #### [facility] [address] [place], [place] [id number] Buttonhole Tacker: Bob Florence MD Abs.Imm.Granulocyt e 0.19 k/uL Normal 0.00-0.30 [facility] Comment on above: Performed By: #### S ED, BNP, CMPX, CRP, IPF, CDP, C4 #### [address] [address] Buttonhole Tacker: Sidney Epps MD #### AC1EIN #### [facility] [address] [place], [place] [id number] Buttonhole Tacker: Bob Florence MD Abs.Neutrophil (Seg) 11.59 k/uL High 1.50-8.10 [facility] Comment on above: Performed By: #### S ED, BNP, CMPX, CRP, IPF, CDP, C4 #### [address] [address] Buttonhole Tacker: Sidney Epps MD #### AC1EIN #### [facility] [address] [place], [place] [id number] Buttonhole Tacker: Bob Florence MD Basophils/100 WBC (Bld) 0 % Normal 0-2 [facility] Comment on above: Performed By: #### S ED, BNP, CMPX, CRP, IPF, CDP, C4 #### [address] [address] Buttonhole Tacker: Sidney Epps MD #### AC1EIN #### [facility] [address] [place], [place] [id number] Buttonhole Tacker: Bob Florence MD Eosinophils/100 WBC (Bld) 0 % Low 1-4 [facility] Comment on above: Performed By: #### S ED, BNP, CMPX, CRP, IPF, CDP, C4 #### [facility] [address] [place] [address] Buttonhole Tacker: Sidney Epps MD #### AC1EIN #### [facility] [address] [place], [place] [id number] Buttonhole Tacker: Bob Florence MD Erythrocyte distribution width (RBC) [Ratio] 14.2 % Normal 11.8-14.4 [facility] Comment on above: Performed By: #### S ED, BNP, CMPX, CRP, IPF, CDP, C4 #### [facility] [address] [place] [address] Buttonhole Tacker: Sidney Epps MD #### AC1EIN #### [facility] [address] [place], [place] [id number] Buttonhole Tacker: Bob Florence MD Hematocrit (Bld) [Volume fraction] 32.6 % Low 36.3-47.1 [facility] Comment on above: Performed By: #### S ED, BNP, CMPX, CRP, IPF, CDP, C4 #### [address] [address] Buttonhole Tacker: Sidney Epps MD #### AC1EIN #### [facility] [address] [place], [place] [id number] Buttonhole Tacker: Bob Florence MD Hemoglobin (Bld) [Mass/Vol] 10.2 g/dL Low 11.9-15.1 [facility] Comment on above: Performed By: #### S ED, BNP, CMPX, CRP, IPF, CDP, C4 #### [facility] [address] [place] [address] Buttonhole Tacker: Sidney Epps MD #### AC1EIN #### [facility] [address] [place], [place] [id number] Buttonhole Tacker: Bob Florence MD Immature granulocytes/100 WBC (Bld) 2 % High 0 [facility] Comment on above: Performed By: #### S ED, BNP, CMPX, CRP, IPF, CDP, C4 #### [facility] [address] [place] [address] Buttonhole Tacker: Sidney Epps MD #### AC1EIN #### [facility] [address] [place] [address] Buttonhole Tacker: Bob Florence MD Lymphocytes (Bld) [#/Vol] 0.80 10*3/uL Low 1.10-3.70 [facility] Comment on above: Performed By: #### S ED, BNP, CMPX, CRP, IPF, CDP, C4 #### [address] [address] Buttonhole Tacker: Sidney Epps MD #### AC1EIN #### [facility] [address] [place] [address] Buttonhole Tacker: Bob Florence MD Lymphocytes/100 WBC (Bld) 6 % Low 24-43 [facility] Comment on above: Performed By: #### S ED, BNP, CMPX, CRP, IPF, CDP, C4 #### [address] [address] Buttonhole Tacker: Sidney Epps MD #### AC1EIN #### [facility] [address] [place] [address] [id number] Buttonhole Tacker: Bob Florence MD MCH (RBC) [Entitic mass] 29.9 pg Normal 25.2-33.5 [facility] Comment on above: Performed By: #### S ED, BNP, CMPX, CRP, IPF, CDP, C4 #### [address] [id number] Buttonhole Tacker: Sidney Epps MD #### AC1EIN #### [facility] [address] [place] [address] [id number] Buttonhole Tacker: Bob Florence MD MCHC (RBC) [Mass/Vol] 31.3 g/dL Normal 28.4-34.8 [facility] Comment on above: Performed By: #### S ED, BNP, CMPX, CRP, IPF, CDP, C4 #### [address] [address] Buttonhole Tacker: Sidney Epps MD #### AC1EIN #### [facility] [address] [place] [address] Buttonhole Tacker: Bob Florence MD MCV (RBC) [Entitic vol] 95.6 fL Normal 82.6-102.9 [facility] Comment on above: Performed By: #### S ED, BNP, CMPX, CRP, IPF, CDP, C4 #### [address] [address] Buttonhole Tacker: Sidney Epps MD #### AC1EIN #### [facility] [address] [place] [address] Buttonhole Tacker: Bob Florence MD Monocytes (Bld) [#/Vol] 0.17 10*3/uL Normal 0.10-1.20 [facility] Comment on above: Performed By: #### S ED, BNP, CMPX, CRP, IPF, CDP, C4 #### [address] [address] Buttonhole Tacker: Sidney Epps MD #### AC1EIN #### [facility] [address] [place] [address] Buttonhole Tacker: Bob Florence MD Monocytes/100 WBC (Bld) 1 % Low 3-12 [facility] Comment on above: Performed By: #### S ED, BNP, CMPX, CRP, IPF, CDP, C4 #### [address] [address] Buttonhole Tacker: Sidney Epps MD #### AC1EIN #### [facility] [address] [place] [address] Buttonhole Tacker: Bob Florence MD Neutrophil (Seg) 91 % High 36-65 [facility] Comment on above: Performed By: #### S ED, BNP, CMPX, CRP, IPF, CDP, C4 #### [address] [address] Buttonhole Tacker: Sidney Epps MD #### AC1EIN #### [facility] [address] [place] [address] Buttonhole Tacker: Bob Florence MD NRBC Automated 0.0 per 100 WBC Normal 0.0 [facility] Comment on above: Performed By: #### S ED, BNP, CMPX, CRP, IPF, CDP, C4 #### [address] [address] Buttonhole Tacker: Sidney Epps MD #### AC1EIN #### [facility] [address] [place] [address] Buttonhole Tacker: Bob Florence MD Platelet Count See Reflexed IPF Result Normal 138-453 [facility] Comment on above: Performed By: #### S ED, BNP, CMPX, CRP, IPF, CDP, C4 #### [address] [address] Buttonhole Tacker: Sidney Epps MD #### AC1EIN #### [facility] [address] [place] [address] Buttonhole Tacker: Bob Florence MD RBC (Bld) [#/Vol] 3.41 10*6/uL Low 3.95-5.11 [facility] Comment on above: Performed By: #### S ED, BNP, CMPX, CRP, IPF, CDP, C4 #### [address] [id number] Buttonhole Tacker: Sidney Epps MD #### AC1EIN #### [facility] [address] [place] [address] Buttonhole Tacker: Bob Florence MD WBC (Bld) [#/Vol] 12.8 10*3/uL High 3.5-11.3 [facility] Comment on above: Performed By: #### S ED, BNP, CMPX, CRP, IPF, CDP, C4 #### [facility] [address] [place], [place] [phone] Buttonhole Tacker: Sidney Epps MD #### AC1EIN #### [facility] [address] [place] [address] Buttonhole Tacker: Bob Florence MD COVID-19, Rapidon 06-17-2022 Interpretation and review of laboratory results Abnormal [facility] SARS-CoV-2 (COVID-19) RdRp gene JESS+probe Ql (Resp) Detected Abnormal Not Detected [facility] Comment on above: Rapid NAAT: The specimen [...] this assay. Fact sheet for Healthcare Providers: https://www.fda.gov/media/726333/download Fact sheet for Patients: https://www.fda.gov/media/860547/download Methodology: Isothermal Nucleic Acid Amplification Results reported to the appropriate Health Department Specimen Description .NASOPHARYNGEAL SWAB [facility] CT NECK ST W CONon 3 CT [...] worse on the right than the left. BABY FORMULA MIXER SPACE: Normal in appearance. RETROPHARYNGEAL SPACE: Normal [...] SERGIO DUQUE Date: 2022-06-17 01:58 Normal [facility] Comp Metabolic Pr/rfx MGon 0 06-17-2022 Albumin [Mass/Vol] 4.3 g/dL Normal 3.5-5.2 [facility] Comment on above: Performed By: #### S ED, BNP, CMPX, CRP, IPF, CDP, C4 #### [address] [id number] Buttonhole Tacker: Sidney Epps MD #### AC1EIN #### [facility] [address] [place], [place] [id number] Buttonhole Tacker: Bob Florence MD Albumin/Glob Ratio 1.8 Normal 1.0-2.5 [facility] Comment on above: Performed By: #### S ED, BNP, CMPX, CRP, IPF, CDP, C4 #### [address] [id number] Buttonhole Tacker: Sidney Epps MD #### AC1EIN #### [address] [address] Buttonhole Tacker: Bob Florence MD Alkaline Phos 148 U/L High 35-104 [facility] Comment on above: Performed By: #### S ED, BNP, CMPX, CRP, IPF, CDP, C4 #### [address] [id number] Buttonhole Tacker: Sidney Epps MD #### AC1EIN #### [facility] [address] [place] [address] Buttonhole Tacker: Bob Florence MD ALT [Catalytic activity/Vol] 10 U/L Normal 5-33 [facility] Comment on above: Performed By: #### S ED, BNP, CMPX, CRP, IPF, CDP, C4 #### [address] [id number] Buttonhole Tacker: Sidney Epps MD #### AC1EIN #### [facility] [address] [place], [place] [id number] Buttonhole Tacker: Bob Florence MD Anion gap [Moles/Vol] 17 mmol/L Normal 9-17 [facility] Comment on above: Performed By: #### S ED, BNP, CMPX, CRP, IPF, CDP, C4 #### [address] [address] Buttonhole Tacker: Sidney Epps MD #### AC1EIN #### [facility] [address] [place], [place] [id number] Buttonhole Tacker: Bob Florence MD AST [Catalytic activity/Vol] 16 U/L Normal <32 [facility] Comment on above: Performed By: #### S ED, BNP, CMPX, CRP, IPF, CDP, C4 #### [address] [address] Buttonhole Tacker: Sidney Epps MD #### AC1EIN #### [address] [address] Buttonhole Tacker: Bob Florence MD Bilirubin [Mass/Vol] 0.4 mg/dL Normal 0.3-1.2 [facility] Comment on above: Performed By: #### S ED, BNP, CMPX, CRP, IPF, CDP, C4 #### [address] [address] Buttonhole Tacker: Sidney Epps MD #### AC1EIN #### [facility] [address] [place] [address] Buttonhole Tacker: Bob Florence MD Calcium [Mass/Vol] 9.7 mg/dL Normal 8.6-10.4 [facility] Comment on above: Performed By: #### S ED, BNP, CMPX, CRP, IPF, CDP, C4 #### [address] [address] Buttonhole Tacker: Sidney Epps MD #### AC1EIN #### [facility] [address] [place], [place] [id number] Buttonhole Tacker: Bob Florence MD Chloride [Moles/Vol] 107 mmol/L Normal 98-107 [facility] Comment on above: Performed By: #### S ED, BNP, CMPX, CRP, IPF, CDP, C4 #### [facility] [address] [place] [address] Buttonhole Tacker: Sidney Epps MD #### AC1EIN #### [facility] [address] [place] [address] Buttonhole Tacker: Bob Florence MD CO2 [Moles/Vol] 16 mmol/L Low 20-31 [facility] Comment on above: Performed By: #### S ED, BNP, CMPX, CRP, IPF, CDP, C4 #### [address] [id number] Buttonhole Tacker: Sidney Epps MD #### AC1EIN #### [facility] [address] [place] [address] [id number] Buttonhole Tacker: Bob Florence MD Creatinine [Mass/Vol] 1.24 mg/dL High 0.50-0.90 [facility] Comment on above: Performed By: #### S ED, BNP, CMPX, CRP, IPF, CDP, C4 #### [address] [id number] Buttonhole Tacker: Sidney Epps MD #### AC1EIN #### [facility] [address] [place] [address] [id number] Buttonhole Tacker: Bob Florence MD GFR/1.73 sq M.predicted among non-blacks MDRD (S/P/Bld) [Vol rate/Area] 43 mL/min/{1.73_m2} Low >60 [facility] Comment on above: Result Comment: These [...] BNP, CMPX, CRP, IPF, CDP, C4 #### [address] [id number] Buttonhole Tacker: Sidney Epps MD #### AC1EIN #### [address] [id number] Buttonhole Tacker: Bob Florence MD Glucose [Mass/Vol] 165 mg/dL High 70-99 [facility] Comment on above: Performed By: #### S ED, BNP, CMPX, CRP, IPF, CDP, C4 #### [address] [id number] Buttonhole Tacker: Sidney Epps MD #### AC1EIN #### [address] [id number] Buttonhole Tacker: Bob Florence MD Potassium [Moles/Vol] 4.2 mmol/L Normal 3.7-5.3 [facility] Comment on above: Performed By: #### S ED, BNP, CMPX, CRP, IPF, CDP, C4 #### [address] [id number] Buttonhole Tacker: Sidney Epps MD #### AC1EIN #### [address] [id number] Buttonhole Tacker: Bob Florence MD Protein [Mass/Vol] 6.7 g/dL Normal 6.4-8.3 [facility] Comment on above: Performed By: #### S ED, BNP, CMPX, CRP, IPF, CDP, C4 #### [address] [id number] Buttonhole Tacker: Sidney Epps MD #### AC1EIN #### [facility] [address] [place], [place] [id number] Buttonhole Tacker: Bob Florence MD Sodium [Moles/Vol] 140 mmol/L Normal 135-144 [facility] Comment on above: Performed By: #### S ED, BNP, CMPX, CRP, IPF, CDP, C4 #### [facility] [address] [place] [address] [id number] Buttonhole Tacker: Sidney Epps MD #### AC1EIN #### [facility] [address] [place] [address] Buttonhole Tacker: Bob Florence MD Urea nitrogen [Mass/Vol] 22 mg/dL Normal 8-23 [facility] Comment on above: Performed By: #### S ED, BNP, CMPX, CRP, IPF, CDP, C4 #### [facility] [address] [place] [address] [id number] Buttonhole Tacker: Sidney Epps MD #### AC1EIN #### [facility] [address] [place] [address] Buttonhole Tacker: Bob Florence MD Comprehensive Metabolic Pane l w/ Reflex to MGon 06-17-2022 Albumin [Mass/Vol] 4.3 g/dL 3.5 - 5.2 g/dL [facility] Albumin/Globulin [Mass ratio] 1.8 {ratio} 1.0 - 2.5 [facility] ALP [Catalytic activity/Vol] 148 U/L High 35 - 104 U/L [facility] ALT [Catalytic activity/Vol] 10 U/L 5 - 33 U/L [facility] Anion gap [Moles/Vol] 17 mmol/L 9 - 17 mmol/L [facility] AST [Catalytic activity/Vol] 16 U/L NINF - 32 U/L [facility] Bilirubin [Mass/Vol] 0.4 mg/dL 0.3 - 1.2 mg/dL [facility] Calcium [Mass/Vol] 9.7 mg/dL 8.6 - 10.4 mg/dL [facility] Chloride [Moles/Vol] 107 mmol/L 98 - 107 mmol/L [facility] CO2 [Moles/Vol] 16 mmol/L Low 20 - 31 mmol/L [facility] Creatinine [Mass/Vol] 1.24 mg/dL High 0.50 - 0.90 mg/dL [facility] GFR/1.73 sq M.predicted MDRD (S/P/Bld) [Vol rate/Area] 43 mL/min/{1.73_m2} Low - PINF [facility] Comment on above: These results are not [...] 165 mg/dL High 70 - 99 mg/dL [facility] Potassium [Moles/Vol] 4.2 mmol/L 3.7 - 5.3 mmol/L [facility] Protein [Mass/Vol] 6.7 g/dL 6.4 - 8.3 g/dL [facility] Sodium [Moles/Vol] 140 mmol/L 135 - 144 mmol/L [facility] Urea nitrogen [Mass/Vol] 22 mg/dL 8 - 23 mg/dL [facility] Covid-19 PCR (CVDTBH)on SARS-CoV-2 (COVID-19) RNA JESS+probe Ql (Unsp spec) Detected Abnormal NOT DETECTED [facility] Comment on above: Result Comment: This test is not yet approved or cleared by the [place] FDA. When there are no FDA-approved or cleared tests available, and other criteria are met, FDA can make tests available under an emergency access mechanism called an Emergency Use Authorization (EUA). The EUA for this test is supported by the [place] of Health and Human Service's declaration that [...] used). Performed By: #### C VDTB #### [facility] [address] [address] [address] Carla Little Immature Platelet Fractionon 06-17-2022 Platelet, Fluorescence Platelet clumps present, count appears adequate. [facility] S[employer]nik8 MRSA, DNA, Nasalon 3 Specimen Description .NASAL SWAB Normal [facility] Comment on above: Performed By: #### M RSANO #### [facility] [place] [address] Buttonhole Tacker: Sidney Epps MD No Panel Informationon 06-17 Interpretation and review of laboratory results Abnormal [facility] [employer]8 PLT, Immature Fract.on 06-17 Platelet, Fluoresc. Platelet clumps present, count appears adequate. Normal 138-453 [facility] Comment on above: Performed By: #### S ED, BNP, CMPX, CRP, IPF, CDP, C4 #### [facility] [place] [address] Buttonhole Tacker: Sidney Epps MD #### AC1EIN #### [facility] [address] [place] [address] Buttonhole Tacker: Bob Florence MD POC Glucose Fingerstickon Glucose [Mass/Vol] 130 mg/dL High 65 - 105 mg/dL [facility] [employer]8 Interpretation and review of laboratory results Abnormal [facility] [employer]8 Glucose [Mass/Vol] 149 mg/dL High 65 - 105 mg/dL [facility] [employer]8 Interpretation and review of laboratory results Abnormal [facility] [employer]8 [id number] 06-17-2022 SARS-CoV-2 (COVID-19) RNA JESS+probe Ql (Unsp spec) Detected Abnormal NOTDET [facility] Comment on above: Result Comment: Rapid [...] this assay. Fact sheet for Healthcare Providers: https://www.fda.gov/media/434238/download Fact sheet for Patients: https://www.fda.gov/media/468692/download Methodology: Isothermal Nucleic Acid Amplification Results reported to the appropriate Health Department Performed By: #### C OVRB ####[address] [place], [place] [id number] Lab Director: Sidney Epps MD Sedimentation Rateon 023 Sedimentation Rate 9 mm/Hr Normal 0-30 [facility] Comment on above: Performed By: #### S ED, BNP, CMPX, CRP, IPF, CDP, C4 #### [address] [address] [place] [address] Buttonhole Tacker: Sidney Epps MD #### AC1EIN #### [facility] [address] [place], [place] [id number] Buttonhole Tacker: Bob Florence MD ESR (Bld) [Velocity] 9 mm/h [facility] [employer]nik8 [facility] [employer]8 XR CHEST PORTABLEon 06-17-19 23 XR CHEST [...] Sweetie Robles DO 06/17/22 Final result Normal [facility] 1. No acute intrathoracic process. 2. Large hiatal hernia. 3. Nodular density overlying right upper lung, possibly related to the posterior right 5th rib versus parenchymal nodule. Consider CT imaging for further evaluation. [facility] EXAMINATION: ONE XRAY VIEW OF THE [...] rib. No evidence of acute osseous abnormality. [facility] Sweetie Robles DO - 06/17/2022 EXAMINATION: [...] nodule. Consider CT imaging for further evaluation. [facility] [employer]agon Work Phone: Radiology Study observation (narrative) [facility]: XR CHEST PORTABLEOrdered By: Sweetie Robles on 06-17-2022 [facility]: BNPon 06-16-2022 Natriuretic peptide B (Bld) [Mass/Vol] 535.0 pg/mL Normal <=1,800.0 [facility] Comment on above: Performed By: #### C MADM, CMP, BNP #### [facility] [address] [place] [address] Dr. Carla Little CARDIAC KAPIL ADMITon 023 CK [Catalytic activity/Vol] 60 U/L Normal 26-192 [facility] Comment on above: Performed By: #### C MADM, CMP, BNP #### [facility] [address] [place] [address] Dr. Carla Little CK.MB [Mass/Vol] 1.11 ng/mL Normal <=3.60 [facility] Comment on above: Performed By: #### C MADM, CMP, BNP #### [facility] [address] [place] [address] Dr. Carla Little HSTROP 10.7 pg/mL Normal 4.0-51.3 [facility] Comment on above: Result Comment: CUT- OFF POINTS HAVE BEEN ESTABLISHED BASED ON THE FOURTH UNIVERSAL DEFINITIONS OF MYOCARDIAL INFARCTION. THE UPPER REFERENCE LIMIT (URL) OF TROPONIN, DEFINED THE 99TH PERCENTILE OF cTnI DISTRIBUTION IN A REFERENCE POPULATION, HAS BEEN CONFIRMED THE DECISION THRESHOLD FOR HI DIAGNOSIS. Performed By: #### C MADM, CMP, BNP #### [facility] [address] [place] [address] Dr. Carla Little HOANG 53 ng/mL Normal 9-82 [facility] Comment on above: Performed By: #### C MADM, CMP, BNP #### [facility] [address] [place] [address] Dr. Carla Little CBC AUTO DIFFon 06-16-2022 BASO # 0.1 103/ul Normal 0.0-0.1 [facility] Comment on above: Performed By: #### L IPID, CMP #### [facility] [address] [place] [address] Dr. Carla Little Basophils/100 WBC (Bld) 0.6 % Normal 0.2-2.0 [facility] Comment on above: Performed By: #### L IPID, CMP #### [facility] [address] [place] [address] Dr. Carla Little EO # 0.2 103/ul Normal 0.0-0.7 [facility] Comment on above: Performed By: #### L IPID, CMP #### [facility] [address] [place] [address] Dr. Carla Little Eosinophils/100 WBC (Bld) 1.5 % Normal 0.9-7.0 [facility] Comment on above: Performed By: #### L IPID, CMP #### [facility] [address] [place] [address] Dr. Carla Little Erythrocyte distribution width (RBC) [Ratio] 14.2 % Normal 11.0-15.0 [facility] Comment on above: Performed By: #### L IPID, CMP #### [facility] [address] [place] [address] Dr. Carla Little Hematocrit (Bld) [Volume fraction] 36.9 % Normal 36.0-48.0 [facility] Comment on above: Performed By: #### L IPID, CMP #### [facility] [address] [place] [address] Dr. Carla Little Hemoglobin (Bld) [Mass/Vol] 11.5 g/dL Critically low 12.0-16.0 [facility] Comment on above: Performed By: #### L IPID, CMP #### [facility] [address] [place] [address] Dr. Carla Little IG # 0.11 10e3/ul Critically high 0.00-0.03 [facility] Comment on above: Performed By: #### L IPID, CMP #### [facility] [address] [address] [address] Carla Little IG % 1.0 % Critically high 0.0-0.5 [facility] Comment on above: Performed By: #### L IPID, CMP #### [facility] [address] [address] [address] Carla Little LYMPH # 1.5 103/ul Normal 1.2-3.8 [facility] Comment on above: Performed By: #### L IPID, CMP #### [facility] [address] [address] [address] Carla Little Lymphocytes/100 WBC (Bld) 13.7 % Critically low 20.5-60.0 [facility] Comment on above: Performed By: #### L IPID, CMP #### [facility] [address] [address] [address] Carla Little MANUAL DIFF REQ NO Normal [facility] Comment on above: Performed By: #### L IPID, CMP #### [facility] [address] [address] [address] Carla Little MCH (RBC) [Entitic mass] 29.6 pg Normal 26.7-34.0 [facility] Comment on above: Performed By: #### L IPID, CMP #### [facility] [address] [address] [address] Carla Little MCHC (RBC) [Mass/Vol] 31.2 g/dL Normal 29.9-35.2 [facility] Comment on above: Performed By: #### L IPID, CMP #### [facility] [address] [address] [address] Carla Little MCV (RBC) [Entitic vol] 94.9 fL Normal 81.0-99.0 [facility] Comment on above: Performed By: #### L IPID, CMP #### [facility] [address] [address] [address] Carla Little MONO # 0.9 103/ul Critically high 0.3-0.8 [facility] Comment on above: Performed By: #### L IPID, CMP #### [facility] [address] [place] [address] Dr. Carla Little Monocytes/100 WBC (Bld) 8.5 % Normal 1.7-12.0 [facility] Comment on above: Performed By: #### L IPID, CMP #### [facility] [address] [place] [address] Dr. Carla Little NEUT # 8.0 103/ul Critically high 1.4-6.5 [facility] Comment on above: Performed By: #### L IPID, CMP #### [facility] [address] [place] [address] Dr. Carla Little Neutrophils/100 WBC (Bld) 74.7 % Normal 43.0-75.0 [facility] Comment on above: Performed By: #### L IPID, CMP #### [facility] [address] [place] [address] Dr. Carla Little Platelet mean volume (Bld) [Entitic vol] 10.1 fL Normal 9.5-13.5 [facility] Comment on above: Performed By: #### L IPID, CMP #### [facility] [address] [place] [address] Dr. Carla Little PLT 304 103/ul Normal 150-450 [facility] Comment on above: Performed By: #### L IPID, CMP #### [facility] [address] [place] [address] Dr. Carla Little RBC 3.89 106/ul Critically low 4.20-5.40 [facility] Comment on above: Performed By: #### L IPID, CMP #### [facility] [address] [place] [address] Dr. Carla Little WBC 10.7 103/ul Normal 4.0-11.0 [facility] Comment on above: Performed By: #### L IPID, CMP #### [facility] [address] [place] [address] Dr. Carla Little PROF 14(COMP METB)on 023 Albumin [Mass/Vol] 3.8 g/dL Normal 3.4-5.0 [facility] Comment on above: Performed By: #### C MADM, CMP, BNP #### [facility] [address] [address] [address] Carla Little Albumin/Globulin [Mass ratio] 1.3 {ratio} Normal [facility] Comment on above: Performed By: #### C MADM, CMP, BNP #### [facility] [address] [address] [address] Carla Little ALP [Catalytic activity/Vol] 176 U/L Critically high 46-116 [facility] Comment on above: Performed By: #### C MADM, CMP, BNP #### [facility] [address] [address] [address] Carla Little ALT [Catalytic activity/Vol] 13 U/L Critically low 14-59 [facility] Comment on above: Performed By: #### C MADM, CMP, BNP #### [facility] [address] [address] [address] Carla Little Anion gap [Moles/Vol] 18.9 mmol/L Normal [facility] Comment on above: Performed By: #### C MADM, CMP, BNP #### [facility] [address] [address] [address] Carla Little AST [Catalytic activity/Vol] 15 U/L Normal 15-37 [facility] Comment on above: Performed By: #### C MADM, CMP, BNP #### [facility] [address] [address] [address] Carla Little Bilirubin [Mass/Vol] 0.3 mg/dL Normal 0.2-1.0 [facility] Comment on above: Performed By: #### C MADM, CMP, BNP #### [facility] [address] [address] [address] Carla Little Calcium [Mass/Vol] 9.1 mg/dL Normal 8.5-10.1 [facility] Comment on above: Performed By: #### C MADM, CMP, BNP #### [facility] [address] [address] [address] Carla Little Chloride [Moles/Vol] 105 mmol/L Normal 98-107 [facility] Comment on above: Performed By: #### C MADM, CMP, BNP #### [facility] [address] [place] [address] Dr. Carla Little CO2 [Moles/Vol] 21.8 mmol/L Normal 21.0-32.0 [facility] Comment on above: Performed By: #### C MADM, CMP, BNP #### [facility] [address] [place] [address] Dr. Carla Little Creatinine [Mass/Vol] 1.54 mg/dL Critically high 0.55-1.02 [facility] Comment on above: Performed By: #### C MADM, CMP, BNP #### [facility] [address] [place] [address] Dr. Carla Little EGFR-AF [place] 39 mL/min/1.73m2 Critically low >=60 [facility] Comment on above: Performed By: #### C MADM, CMP, BNP #### [facility] [address] [place] [address] Dr. Carla Little EGFR-NON AF [place] 32 mL/min/1.73m2 Critically low >=60 [facility] Comment on above: Performed By: #### C MADM, CMP, BNP #### [facility] [address] [place] [address] Dr. Carla Little Globulin (S) [Mass/Vol] 3.0 g/dL Normal [facility] Comment on above: Performed By: #### C MADM, CMP, BNP #### [facility] [address] [place] [address] Dr. Carla Little Glucose [Mass/Vol] 117 mg/dL Critically high 74-106 [facility] Comment on above: Performed By: #### C MADM, CMP, BNP #### [facility] [address] [place] [address] Dr. Carla Little Potassium [Moles/Vol] 3.7 mmol/L Normal 3.5-5.1 [facility] Comment on above: Performed By: #### C ISABEL CMP, BNP #### [facility] [address] [address] [address] Carla Little Protein [Mass/Vol] 6.8 g/dL Normal 6.4-8.2 [facility] Comment on above: Performed By: #### C ISABEL, CMP, BNP #### [facility] [address] [place] [address] Dr. Carla Little Sodium [Moles/Vol] 142 mmol/L Normal 136-145 [facility] Comment on above: Performed By: #### C ISABEL CMP, BNP #### [facility] [address] [place] [address] Dr. Carla Little Urea nitrogen [Mass/Vol] 24.0 mg/dL Critically high 7.0-18.0 [facility] Comment on above: Performed By: #### C ISABEL CMP, BNP #### [facility] [address] [place] [address] Dr. Carla Little Urea nitrogen/Creatinin e [Mass ratio] 15.6 mg/mg Normal [facility] Comment on above: Performed By: #### C ISABEL CMP, BNP #### [facility] [address] [place] [address] Dr. Carla Little PROTIMEon 06-16-2022 INR Coag (PPP) [Relative time] 0.95 {INR} Normal [facility] Comment on above: Performed By: #### L IPID, CMP #### [facility] [address] [place] [address] Dr. Carla Little INR GUIDELINES SEE BELOW Normal [facility] Comment on above: Result Comment: KAREN RED INR: 2.0 - 3.0 CONDITIONS NOT LISTED BELOW 2.5 - 3.5 FOR PROSTHETIC HEART VALVE REPLACEMENT 2.5 - 3.5 RECURRENT THROMBOSIS Performed By: #### L IPID, CMP #### [facility] [address] [place] [address] Dr. Carla Little PT Coag (PPP) [Time] 10.1 s Normal 9.0-11.6 [facility] Comment on above: Performed By: #### L IPID, CMP #### [facility] [address] [place], [place] [address] Dr. Carla Little PTTon 06-16-2022 aPTT Coag (Bld) [Time] 24.2 s Normal 22.3-36.2 [facility] Comment on above: Performed By: #### L IPID, CMP #### [facility] [address] [place], [place] [address] Dr. Carla Little TYPE AND SCREENon 06-16-2022 TYPE AND SCREEN Negative Normal [facility] Comment on above: Performed By: #### L IPID, CMP #### [facility] [address] [place], [place] [address] Dr. Carla Little XR CHEST 1 Von [...] by: BENJAMIN ROGERS Date: 2022-06-16 19:49 Normal [facility] Recordson 06-10 [facility] Records [id number] 0CD:[id number] Normal [facility] Coding Summary.on 05-27-2022 Coding Summary. CD:[id number] Gh 0bWw+PGhlYWQ+AR0GBGVxJ 67lpFZkmP4LT9bSYJ6RMOZ UVCYWKO0UHT2hrEU2XYuuR 2VybiAv ZobtnGBlRN53YRi5NZD7eO rlRMhfeI2usNHoQ7h4TtOc BD72cI83IFgtMQCrTrR8Ax ZpbjsgbWFy V3jwYfSvxNNgQnh+PHRhYm xlIHdpZHRoPScxMDAlJyBz tWksAA8uVr8uHGZaNPJnuX xhcHNlOiBj i0tvSNRmCLuoTL8yfIaxB7 MpoFA1QWTag3i0Zx00nCZ+ WRKaQNU4ySanOJhdl798It Djf8mpQYU7 iNBiASqoQRU5F30vc3T9OE OkGRUlDNM2zMX8dK7obRee tbdwF3PenYDcRmQ4FZI8hM SidT6yoTmh raifjZ6xTyk+T47MXH1JAI TVRR0QLqb3U6EeUbhotSV+ TC65IHMbZS30jFAskDHrz8 coqUd4KaVr NLGmYIQ5sBduTAcqh4UlSF BmH30ssFVyu9B0RHSzuCcv cRYlOgWstRL0zQ6sQLatya dkx0xpzfym Glhck2guov79sL80K66lOF ivEPTeBDA5XXRcVUZesHxh jn7vlU3tSf3+YAkyx6ugx1 bewDy9DkUo LJJwioIdfGllWJB5z5UmHa 50B5FtgWjhf8LvBeb5zi38 rFAly4B2xQD8GYdsOEGdtC 0oPAlyMbP2 ZJXtFlDvpY29bOZnRVllZs 0mwRxzwFsqUN9mZRKpawen AYOilC6oDMNqsPDbrYsnEW 4wNTBpbjtm z603MdArMGA6SIYdnXJlF2 AvcZ7xVcAtZQMtWXQeJ2Pj pTHySHncA244IUajDtQ5CD NzbdJrC8Mm ZCDizButYfL5q6K1Ja6Oh7 KzpijdUMY2OMuqZWDnUmE8 EqTdLqO5U2FqRst1MHRgtE ujVW9yR4Fg GJOgluexkfagnRR2VFLaKN CufN06fDIoYDnnXa3tb6N7 n594NNKdGEPceY59Oz8yaG ogMTBwdCBU gZ8gjmejh4ortlygMiSyCL WcIBz1DDa8RTWulCpbZgHi PIE6UaZ1RVN3ePJqkR9khK eegzmdsX7e Oyc+J48dmG1uFYR0VQO5ha dmXVVqnpMvXP96GJ44T7Jz PjwvdGFibGU+PGRpdiBzdH olEU9tZwGj l8muc0IjIEkpY6MsQEIjJL qoCnz2DMPoQEJ6wAH7uT8d SIItCBwqr5N9mRM4C2Cbsv Dciz3hx1ct QDSlAIuzO13qfBOvt6Y4UY GhxEM5EXSkpSvvOaCfiH51 Oyc+XHMiqRpid1GjUwtpk5 bjn1ofjYc4 JdKnMVUqwzLcpEipKIK5o9 CkEe38Q83oCVanSMVmFJZh XTCiQBCtrRkkyb6bqM4gRh 8+PGNvbCB3 bPD4kT9dKYKcJdI4UNniD6 15CwSqhONiWyrus3bhk9wy lNt9LvXaEZHxrbRfaDvmNC K9i1EnEy76 S18vRQevFVZxRBIsQQGtIH YqnAjbqb0ggP7jMd2+PC9j t9otmw53dA38zFQ+PHRkIH G5bWooMVxd KSXrtB7aRGikWfV9NYGuTk IhiZ46hFFxMHbrRx8taFyz pQrdZY7uMMJqlbkdm194Ga Ggy7fvXMYs zEBtGIlcQWH3K50re8B1HG NhXVAwICC2mTZ8vD8pdOcg bjogbGVmdDsgdmVydGljYW zmCPwyD102 IHRvcDsnPlBhdGllbnQgTm AhDFr1E3CkTkj5MXPorLer ZF1jpHDlHGnpEq1soBgqpE baKG4sGJZk dlqwp381PdJzh8qaGUUsnW VyGUwfWBS5N29up7S1MZAi QKRdGAN0iLG7bL8raBcvta ogbGVmdDsg asRmzUuzKEhuBBrvU279HT RvcDsnPkJpcnRoIERhdGU6 TE53OV08zQKle2O0dXE0V2 BhZGRpbmct lsaefGN8PFWeHUVwtG61Dx 5fpYmbGs9kGCOsAJJ4FJZt bSVcS1RrhB5bEjMwRJRgXO CmE5NadBXn MVepY787EUsjLsX6ROMgcu HvL3LxRZBrcLrhYlB2u0T4 Vn5VE5A8LT89DD74iRUhj7 D2qCS7C6Wq FAPnaktmnbrwjYQ2CNCsPW YkrI76Ah8zqVawWy8cVSUu LTI3TOJcyNWnD9YryI2iTp AjMDAwMDAw E3JwaWBjLPhbI603DStfIt L3WJQgshClV9NcCTQpeGtd BmF1o7L5Is7JEMa6NM64KL 78fTSst6M1 mHX0N3McMEVgfapqeqjanG Q0KBXjSZZljY78Xu7wsTrx Lm8fLETqQIY7MWJpsXFfL0 CwmF2rEcVg VCHsNKVmJ1CjkGEoRKsyX4 24PQshDnV8PEXyrhHhM2Yv UZGvvMarMkQ6n3P1Qq8BWX GgZE97HAE4 nJV0OK23AP77W7ZkBfttfR FibGU+PHRhYmxlIHdpZHRo FWglAAPiXyZcyLikFK5rVe 9yZGVyLWNv sJweaRVsHiSgc4xpTSNoCH qqRC0hwDklB5JrsGB9SBZw t0q7Wr02R88cH5KgjYI+PG NzrED1eKB5 vG2eKfQqWmK2EOukF360Sb ZnaMDaWjllk8fdq6gitYp7 AyE4MMAvneJdjJusZNN1s7 FvJa43H19i IHdpZHRoPSIxNSUiIHZhbG hlmc7riW5rNu0+PGNvbCB3 uJM6vY0pZgNsNcM1BFdlL7 49InRvcCIv Kvpyj2jzh1zsoMj9SpAySY HwkaMetTrhMJH0c4HaEn17 V7ZyhFkie0ViRxu3rc78bD Htt7Q1hAT4 T8LvXCHoaukkoZRibKgvQX 5hHZNkmaylOUQxcX0dNLIk G4k7WrVjZkW6NUmgR9Qvqf D1RJXfmYVn DMenXGU3T68ue7Q2CZRqST FsHLR2cPT4vT9upOmeeynb bGVmdDsgdmVydGljYWwtYW jwW433NNTh cZvqJXWjoF6aYEUgrKEjmQ hiHA8oKAUfnhytHgPREOTQ MEfkUe3PCI7FWnnqSHzczT Q+PHRkIHN0 iFkuBQruMBIicE2qJAJsB7 c9JoHgWwZ5HOupD6XyYJTh bvczGq98eG2kHsAtJpO8WW eqE8MqwfN6 HEWuiZEoYRhtDJY6J65fh8 W3SXTiLRUxQKA5mSP6pJ6v bGlnbjogbGVmdDsgdmVydG ljYWwtYWxp S160DEAgeWxzQbZ2GlK4Ih K2Npq6J8QyEve7JZBikAbv XU9dpLVdNDomSu5haIkhdB skRZ2zJXKd iitkNUAlwE5cROAlxFLkgM oiEB5kNJOdrevaf631UmBr QUI9HTKwcGTzQ4KrxR5zQh AjMDAwMDAw L3BnmIJqVTabT843PQxrIx R2OFAfmfFyA6EdPMIvpUiz ZjR3o0S6Sp12FPWCUAWcsv wvdGQ+PHRk YOT7sQbpLRjyYJDzwD5dIJ AoG3z4NqMxBeN6BEkuP3Hg CNNpiddqVg21eJ1zFbQkNo W8RWwmU4Gt ccI8JCLxgWWuIXpvKHZ2N2 8zx8A6BALlFPFwYWP4aWQ1 mM4yzBkkdkyaoHSuwUrhdj VydGljYWwt LGlkE519KWEyhQarWpBduN FsZTwvdGQ+XSYsUAI5nJwe AFkyXAEljF5vTNTtK2c1Uj YyJjX0GTqn L0XcNUIpegnyWg17kE7tTy KgKrX5ZLakK6DcswK5JFBo gTNbDXpgUCM2F92wd8A8RF MwMDAwMDA7 jJI7rJ1jkOsxffqfqDHwfS norkQarMmtPQsoCLubU145 DPDqjIarBp26iAZbbHkusy U5F9YlLpzs dHI+VU28DXFxZJ22fBBbsG Hmh0glrCx6HuWqLAOdIUY1 pPvcRYmlf8BoNMNgE61rqU Ysv2T2PBRg zMlpgXNfVeQaeCB1pH1qGV tcjiptj1fcfvacQhelw3nz ao67iO11E69lICckHJOiFV IzMCUiIHZh hDzlot8zdX7yDj3+PGNvbC J6oTD1zL1wTaVsRtD0SAom T428DbJorNAgZuwks9jvi9 vauZj9VpXa JISjwoHtqWrwPMB6r5NgKw 32O30gXZviNBWaCKVvHGFv NAArvMluew6jwA7pGf8+PC 3gi9ktxj39 cD41iFY+ZXSaNWA1pOfpCF trYYTghK0tSYzkGqI3GTXn IaEbuS32qQVjGQgkXh2xqK fwfXzhSD9c FRKrxxwiv137WfTzf5ldQT YqcPOiRGrlSYJ6R33ql0V3 VOJdHGGdDWU9fEH1qZ4jiB lnbjogbGVm dDsgdmVydGljYWwtYWxpZ2 63RHKpsUubHhIfyTLfL4tj uaCCVC5sKiirpNL+PHRkIH G0mAizAQah VQBoaW5eFMJyR3p4QoKvVw G0KTzrC1DiwkQ7SXRewJZr GQZslEWCiD0gykdbk9jnkb ogIzAwMDAw LPm5HSn2WEQjcXlqDxRsLG J5HkE7BCW4yWZxbN2nlEca yyjnxB7sIut+RklOOjwvdG Q+PHRkIHN0 zEtpLCgtIMSgqA7vVCEkN4 a0LkInFwS9ZYalJ2TctwJ9 QNBrhTAwJSKnfXFCxZ7phy jas1lskmss ItHkBGVvSJy9DSx9VOUfpL luUbJzWEE4TjY0MBJ5sSPg jQ7nyTtthptorR3uDxh+TV JOOjwvdGQ+ DHMqGBG2bNpqBElrHMYhwX 0bNPObH1k0WrRxAzN1USsf X6CvxbG5FETjlBYlVDKmqH DPxM4fxmbk j6mzvvrkEbNoVFHhWIq0ZR c6HSRkbUujHaVbLSN5OjD7 JUL9aUIahK5ioZpybbiuoW 9wOyc+UGF5 ZKR5LC73XZ49X9HhEqtveR FibGU+PHRhYmxlIHdpZHRo OFdnJAPvLzEkoBicMN8pBe 9yZGVyLWNv bGxh (more content not included)... Normal [facility] Recordson 05-27 [facility] Records [id number] 0CD:127 Normal [facility] Physician Orderon 05-20-2022 Physician Order [id number] 0CD:127 Normal [facility] Consent for Treatmenton Consent for Treatment [id number] 0CD:127 Normal [facility] Heart and Vascular Office/Cl inic Noteon 05-16-2022 Heart and Vascular Office/Clinic Note History of Present Illness Mrs. Molina is a very pleasant 86-year-old nondiabetic, lifelong non-smoker, fairly anxious female, unable to take antianxiety medications as it induces mental status changes, with a long history of hypertension, hypercholesterolemia, peripheral vascular disease status post left-sided carotid endarterectomy in [place], stage III kidney disease, and lower extremity peripheral vascular disease of unknown type. Patient was referred to our office for hypertension. In addition she has a history of CVA, and walks with a cane. Patient was originally referred to us on 10/31/2020 for the management of hypertension. Patient then presented to [facility] with cardiac arrest requiring CPR found to [...] to the emergency room on 11/26/2020 at [facility] for chest pain and abnormal troponins. She was treated medically and sent home.. She has not had a stress test to evaluate her LAD territory. She currently lives in a prison, and really does not get her blood [...] legally blind. She still resides at the prison. Over the last month the patient has [...] thoracic CA (more content not included)... Normal [facility] Comment on above: Result Comment: Elec tronically Signed By: Florin HINOJOSA, Juancho Esquivel\.br\Date and Time Signed: 05/16/22 13:42 EST [facility] Recordson 05-09 [facility] Records [id number] 0CD:127 Normal [facility] Complete Blood Count Auto Di ffon 11-24-2020 Basophils (Bld) [#/Vol] 0.1 10*3/uL Normal 0.0-0.2 [facility] Comment on above: Result Comment: PERF ORMED BY: [place] [address] PATHOLOGIST COMBER TENDER LANDY GONZALEZ M.D. Performed By: #### H S TROP #### [address] Basophils/100 WBC (Bld) 0.5 % Normal . [facility] Comment on above: Performed By: #### H S TROP #### [place] [address] [place] Eosinophils (Bld) [#/Vol] 0.2 10*3/uL Normal 0.0-0.45 [facility] Comment on above: Performed By: #### H S TROP #### [address] Eosinophils/100 WBC (Bld) 1.5 % Normal . [facility] Comment on above: Performed By: #### H S TROP #### [address] Erythrocyte distribution width (RBC) [Ratio] 19.8 % High 11.9-15.3 [facility] Comment on above: Performed By: #### H S TROP #### [address] Hematocrit (Bld) [Volume fraction] 33.9 % Low 34.0-46.4 [facility] Comment on above: Performed By: #### H S TROP #### [address] Hemoglobin (Bld) [Mass/Vol] 11.0 g/dL Low 11.8-15.4 [facility] Comment on above: Performed By: #### H S TROP #### [address] Lymphocytes (Bld) [#/Vol] 1.1 10*3/uL Normal 1.00-4.8 [facility] Comment on above: Performed By: #### H S TROP #### [address] Lymphocytes/100 WBC (Bld) 6.8 % Normal . [facility] Comment on above: Performed By: #### H S TROP #### [address] MCH (RBC) [Entitic mass] 27.3 pg Normal 24.7-34.3 [facility] Comment on above: Performed By: #### H S TROP #### [address] MCV (RBC) [Entitic vol] 84.3 fL Normal 80-100 [facility] Comment on above: Performed By: #### H S TROP #### [facility] [address] Mean Corpuscular HGB Conc 32.4 g/dL Normal 32.0-35.0 [facility] Comment on above: Performed By: #### H S TROP #### [facility] [address] [place] [address] [place] Monocytes (Bld) [#/Vol] 1.4 10*3/uL High 0.0-0.8 [facility] Comment on above: Performed By: #### H S TROP #### [facility] [address] Monocytes/100 WBC (Bld) 9.1 % Normal . [facility] Comment on above: Performed By: #### H S TROP #### [facility] [address] [place] [address] [place] Neutrophils (Bld) [#/Vol] 13.1 10*3/uL High 1.8-7.7 [facility] Comment on above: Performed By: #### H S TROP #### [facility] [address] [place] [address] [place] Neutrophils/100 WBC (Bld) 82.1 % Normal . [facility] Comment on above: Performed By: #### H S TROP #### [facility] [address] [place] [address] [place] Nucleated RBC/100 WBC (Bld) [Ratio] 0.0 % Normal 0-0.5 [facility] Comment on above: Performed By: #### H S TROP #### [facility] [address] [place] [address] [place] Platelet mean volume (Bld) [Entitic vol] 7.8 fL Normal 6.3-10.7 [facility] Comment on above: Performed By: #### H S TROP #### [facility] [address] [place] [address] [place] Platelets (Bld) [#/Vol] 193 10*3/uL Normal 150-450 [facility] Comment on above: Performed By: #### H S TROP #### [facility] [address] RBC (Bld) [#/Vol] 4.02 10*6/uL Normal 3.60-5.00 [facility] Comment on above: Performed By: #### H S TROP #### [facility] [address] [place] [id number] [place] WBC (Bld) [#/Vol] 15.9 10*3/uL High 4.5-11.0 [facility] Comment on above: Performed By: #### H S TROP #### [facility] [address] ECG 12 lead ECGon 11-24-2020 ECG 12 lead ECG [facility] Main [place] [address] [place] [address] Electrocardiograph Report Signed Patient: Piedad Alatorre MR#: [id number] : 1935 Acct:[id number] Age/Sex: 85 / F ADM Date: 11/22/20 Loc: Room: [address] [place] [address] Type: DIS IN Attending Dr: Hemant Rodríguez [...] 11/24/20 0758 Signed By: 11/24/20 1809 Normal [facility] Basic Metabolic Panelon 11-09 Calcium [Mass/Vol] 8.2 mg/dL Normal 8.2-10.2 [facility] Comment on above: Performed By: #### H S TROP #### [facility] [address] Chloride [Moles/Vol] 101 mmol/L Normal 95-114 [facility] Comment on above: Performed By: #### H S TROP #### [facility] [address] CO2 [Moles/Vol] 21.2 mmol/L Low 22.0-30.[address] [facility] Comment on above: Performed By: #### H S TROP #### [address] Creatinine [Mass/Vol] 1.87 mg/dL High 0.44-1.03 [facility] Comment on above: Performed By: #### H S TROP #### [address] Creatinine Clr Calc Pharmacy 19.90 [facility] Comment on above: Result Comment: PERF ORMED BY: [place] [address] PATHOLOGIST COMBER TENDER LANDY GONZALEZ M.D. Performed By: #### H S TROP #### [address] Estimated GFR ( [place]ette 31 [facility] Comment on above: Result Comment: GFR estimated reference range: According to KDOQI guidelines, <60 ml/min/1.73m2 is sufficient to diagnose a patient with chronic kidney disease. Performed By: #### H S TROP #### [facility] [address] [place] [address] [place] Estimated GFR (Non- Am 26 [facility] Comment on above: Performed By: #### H S TROP #### [address] Glucose [Mass/Vol] 111 mg/dL High 70-100 [facility] Comment on above: Result Comment: [place] om Glucose Reference Range is dependent on time and content of last meal. Glucose of more than 200 mg/dL in a nonstressed, ambulatory subject supports the diagnosis of Diabetes Mellitus. ADA recommended reference range Performed By: #### H S TROP #### [address] Potassium [Moles/Vol] 4.4 mmol/L Normal 3.5-5.1 [facility] Comment on above: Performed By: #### H S TROP #### [address] Sodium [Moles/Vol] 136 mmol/L Normal 136-146 [facility] Comment on above: Performed By: #### H S TROP #### [address] Urea nitrogen [Mass/Vol] 36 mg/dL High 9-23 [facility] Comment on above: Performed By: #### H S TROP #### [address] Complete Blood Count Auto Di ffon 11-23-2020 Basophils (Bld) [#/Vol] 0.0 10*3/uL Normal 0.0-0.2 [facility] Comment on above: Result Comment: PERF ORMED BY: [place] [address] PATHOLOGIST COMBER TENDER LANDY GONZALEZ M.D. Performed By: #### C BC #### [address] Basophils/100 WBC (Bld) 0.2 % Normal . [facility] Comment on above: Performed By: #### C BC #### [place] [address] [place] Eosinophils (Bld) [#/Vol] 0.0 10*3/uL Normal 0.0-0.45 [facility] Comment on above: Performed By: #### C BC #### [address] Eosinophils/100 WBC (Bld) 0.3 % Normal . [facility] Comment on above: Performed By: #### C BC #### [facility] [address] Erythrocyte distribution width (RBC) [Ratio] 20.5 % High 11.9-15.3 [facility] Comment on above: Performed By: #### C BC #### [facility] [address] Hematocrit (Bld) [Volume fraction] 36.1 % Normal 34.0-46.4 [facility] Comment on above: Performed By: #### C BC #### [facility] [address] Hemoglobin (Bld) [Mass/Vol] 11.7 g/dL Low 11.8-15.4 [facility] Comment on above: Performed By: #### C BC #### [address] Lymphocytes (Bld) [#/Vol] 0.8 10*3/uL Low 1.00-4.8 [facility] Comment on above: Performed By: #### C BC #### [place] [address] [place] Lymphocytes/100 WBC (Bld) 5.0 % Normal . [facility] Comment on above: Performed By: #### C BC #### [address] MCH (RBC) [Entitic mass] 27.2 pg Normal 24.7-34.3 [facility] Comment on above: Performed By: #### C BC #### [address] MCV (RBC) [Entitic vol] 84.1 fL Normal 80-100 [facility] Comment on above: Performed By: #### C BC #### [address] Mean Corpuscular HGB Conc 32.4 g/dL Normal 32.0-35.0 [facility] Comment on above: Performed By: #### C BC #### [address] [place] [address] [place] Monocytes (Bld) [#/Vol] 1.2 10*3/uL High 0.0-0.8 [facility] Comment on above: Performed By: #### C BC #### [facility] [address] Monocytes/100 WBC (Bld) 7.1 % Normal . [facility] Comment on above: Performed By: #### C BC #### [address] Neutrophils (Bld) [#/Vol] 14.5 10*3/uL High 1.8-7.7 [facility] Comment on above: Performed By: #### C BC #### [address] Neutrophils/100 WBC (Bld) 87.4 % Normal . [facility] Comment on above: Performed By: #### C BC #### [address] Nucleated RBC/100 WBC (Bld) [Ratio] 0.0 % Normal 0-0.5 [facility] Comment on above: Performed By: #### C BC #### [address] Platelet mean volume (Bld) [Entitic vol] 7.9 fL Normal 6.3-10.7 [facility] Comment on above: Performed By: #### C BC #### [place] [address] [place] Platelets (Bld) [#/Vol] 204 10*3/uL Normal 150-450 [facility] Comment on above: Performed By: #### C BC #### [place] [address] [place] RBC (Bld) [#/Vol] 4.29 10*6/uL Normal 3.60-5.00 [facility] Comment on above: Performed By: #### C BC #### [place] [address] [place] WBC (Bld) [#/Vol] 16.6 10*3/uL High 4.5-11.0 [facility] Comment on above: Performed By: #### C BC #### [place] [id number] [facility] ECG 12 lead ECGon 11-23-2020 ECG 12 lead ECG [facility] [place] [address] Electrocardiograph Report Signed Patient: Piedad Alatorre MR#: [id number] : 1935 Acct:[id number] Age/Sex: 85 / F ADM Date: 11/22/20 Loc: Room: [address] [place] [address] Type: ADM IN Attending Dr: Hemant Rodríguez DO Ordering Provider: Hemant Rodríguez DO Date of Service: 11/23/20 ECG/ECG [...] 11/23/20 0752 Signed By: 11/23/20 1833 Normal [facility] ECH echo transthoracicon ECH echo transthoracic [facility] Main [address] [address] Echocardiogram Signed Patient: Piedad Alatorre MR#: [id number] : 1935 Acct:[id number] Age/Sex: 85 / F ADM Date: 11/22/20 Loc: Room: [address] [place] [address] Type: ADM IN Attending Dr: Hemant Rodríguez [...] 11/23/20 0908 Signed By: 11/23/20 1726 Normal [facility] Glucose Poct Glucometerson 0 11-23-2020 Glucose [Mass/Vol] 126 mg/dL Normal [facility] Comment on above: Result Comment: [place] Glucose Reference Range is dependent on time and content of last meal. Glucose of more than 200 mg/dL in a nonstressed, ambulatory subject supports the diagnosis of Diabetes Mellitus. PERFORMED BY: [place] [address] PATHOLOGIST COMBER TENDER LANDY GONZALEZ M.D. Performed By: #### G BRAYAN #### Point of Care testing , Troponin I High Sensitivityo n 11-23-2020 Troponin I High Sensitivity 31035 pg/mL Off scale high 0-15 [facility] Comment on above: Result Comment: PERF ORMED BY: [place] [address] PATHOLOGIST COMBER TENDER LANDY GONZALEZ M.D. Performed By: #### H S TROP #### [address] Basic Metabolic Panelon 11-09 Calcium [Mass/Vol] 8.5 mg/dL Normal 8.2-10.2 [facility] Comment on above: Performed By: #### B MP #### [facility] [address] [place] [address] [place] Chloride [Moles/Vol] 103 mmol/L Normal 95-114 [facility] Comment on above: Performed By: #### B MP #### [place] [address] [place] CO2 [Moles/Vol] 21.0 mmol/L Low 22.0-30.[address] [facility] Comment on above: Performed By: #### B MP #### [address] Creatinine [Mass/Vol] 1.47 mg/dL High 0.44-1.03 [facility] Comment on above: Performed By: #### B MP #### [address] Creatinine Clr Calc Pharmacy 25.32 [facility] Comment on above: Result Comment: PERF ORMED BY: [place] [address] PATHOLOGIST COMBER TENDER LANDY GONZALEZ M.D. Performed By: #### B MP #### [address] Estimated GFR ( [address] 41 [facility] Comment on above: Result Comment: GFR estimated reference range: According to KDOQI guidelines, <60 ml/min/1.73m2 is sufficient to diagnose a patient with chronic kidney disease. Performed By: #### B MP #### [address] Estimated GFR (Non- Am 34 [facility] Comment on above: Performed By: #### B MP #### [address] Glucose [Mass/Vol] 161 mg/dL High 70-100 [facility] Comment on above: Result Comment: [place] om Glucose Reference Range is dependent on time and content of last meal. Glucose of more than 200 mg/dL in a nonstressed, ambulatory subject supports the diagnosis of Diabetes Mellitus. ADA recommended reference range Performed By: #### B MP #### [place] [address] [place] Potassium [Moles/Vol] 4.9 mmol/L Normal 3.5-5.1 [facility] Comment on above: Performed By: #### B MP #### [address] Sodium [Moles/Vol] 136 mmol/L Normal 136-146 [facility] Comment on above: Performed By: #### B MP #### [address] [place] [address] [place] Urea nitrogen [Mass/Vol] 27 mg/dL High 9-23 [facility] Comment on above: Performed By: #### B MP #### [address] ECG 12 lead ECGon 11-22-2020 ECG 12 lead ECG [facility] Main [place] [address] [place] [address] Electrocardiograph Report Signed Patient: Piedad Alatorre MR#: [id number] : 1935 Acct:[id number] Age/Sex: 85 / F ADM Date: 11/22/20 Loc: Room: [address] [place] [address] Type: ADM IN Attending Dr: Hemant Rodríguez [...] 11/22/20 0742 Signed By: 11/22/20 1456 Normal [facility] Glucose Poct Glucometerson 0 11-22-2020 Glucose [Mass/Vol] 118 mg/dL Normal [facility] Comment on above: Result Comment: [facility] Glucose Reference Range is dependent on time and content of last meal. Glucose of more than 200 mg/dL in a nonstressed, ambulatory subject supports the diagnosis of Diabetes Mellitus. PERFORMED BY: [place] [address] PATHOLOGIST COMBER TENDER LANDY GONZALEZ M.D. Performed By: #### G BRAYAN #### Point of Care testing , Glucose [Mass/Vol] 126 mg/dL Normal [facility] Comment on above: Result Comment: [facility] Glucose Reference Range is dependent on time and content of last meal. Glucose of more than 200 mg/dL in a nonstressed, ambulatory subject supports the diagnosis of Diabetes Mellitus. PERFORMED BY: [place] [address] PATHOLOGIST COMBER TENDER LANDY GONZALEZ M.D. Performed By: #### G LULS #### Point of Care testing , Troponin I High Sensitivityo n 11-22-2020 Troponin I High Sensitivity 75369 pg/mL Off scale high 0-15 [facility] Comment on above: Result Comment: PERF ORMED BY: [place] [address] PATHOLOGIST COMBER TENDER LANDY GONZALEZ M.D. Performed By: #### H S TROP #### [facility] [address] [place] [address] [place] Troponin I High Sensitivity 07971 pg/mL Off scale high 0-15 [facility] Comment on above: Result Comment: PERF ORMED BY: [place] [address] PATHOLOGIST COMBER TENDER LANDY GONZALEZ M.D. Performed By: #### H S TROP #### [facility] [address] [place] [address] [place] Troponin I High Sensitivity 22011 pg/mL Off scale high 0-15 [facility] Comment on above: Result Comment: PERF ORMED BY: [place] [address] PATHOLOGIST COMBER TENDER LANDY GONZALEZ M.D. Performed By: #### H S TROP #### [facility] [address] [place] [address] [place] Troponin I High Sensitivity 78061 pg/mL Off scale high 0-15 [facility] Comment on above: Result Comment: Resu lts called at 0905 on 11/22/20 PERFORMED BY: [place] [address] PATHOLOGIST COMBER TENDER LANDY GONZALEZ M.D. Performed By: #### H S [facility] #### [facility] [address] [place] [id number] [facility] Vital Signs Date Time Vital Sign Value Performing Clinician Facility 03-04-2023 13:11-0400 Blood Pressure Location Deonte ROSARIO [facility] 03-04-2023 13:11-0400 Diastolic blood pressure 78 mm[Hg] Deonte ROSARIO [facility] 03-04-2023 13:11-0400 Heart rate 76 /min Deonte ROSARIO [facility] 03-04-2023 13:11-0400 SaO2% (BldA) [Mass fraction] 97 % Deonte ROSARIO [facility] 03-04-2023 13:11-0400 Systolic blood pressure 142 mm[Hg] Deonte ROSARIO [facility] 02-10-2023 14:25-0400 Blood Pressure Location Bloom Sarmini [facility] 02-10-2023 14:25-0400 Diastolic blood pressure 81 mm[Hg] Bloom Sarmini [facility] 02-10-2023 14:25-0400 Heart rate 79 /min Bloom Sarmini [facility] 02-10-2023 14:25-0400 Respiratory rate 22 /min Bloom Sarmini [facility] 02-10-2023 14:25-0400 SaO2% (BldA) [Mass fraction] 97 % Bloom Sarmini [facility] 02-10-2023 14:25-0400 Systolic blood pressure 175 mm[Hg] Bloom Sarmini [facility] 02-10-2023 14:20-0400 Blood Pressure Location Bloom Sarmini [facility] 02-10-2023 14:20-0400 Diastolic blood pressure 84 mm[Hg] Bloom Sarmini [facility] 02-10-2023 14:20-0400 Heart rate 76 /min Bloom Sarmini [facility] 02-10-2023 14:20-0400 Respiratory rate 20 /min Bloom Sarmini [facility] 02-10-2023 14:20-0400 SaO2% (BldA) [Mass fraction] 96 % Bloom Sarmini [facility] 02-10-2023 14:20-0400 Systolic blood pressure 166 mm[Hg] Bloom Sarmini [facility] 02-10-2023 14:15-0400 Blood Pressure Location Bloom Sarmini [facility] 02-10-2023 14:15-0400 Diastolic blood pressure 37 mm[Hg] Bloom Sarmini [facility] 02-10-2023 14:15-0400 Heart rate 77 /min Bloom Sarmini [facility] 02-10-2023 14:15-0400 Respiratory rate 16 /min Bloom Sarmini [facility] 02-10-2023 14:15-0400 SaO2% (BldA) [Mass fraction] 97 % Bloom Sarmini [facility] 02-10-2023 14:15-0400 Systolic blood pressure 153 mm[Hg] Bloom Sarmini [facility] 02-10-2023 14:00-0400 Body temperature 97.7 [degF] Bloom Sarmini [facility] 02-10-2023 13:55-0400 Respiratory rate 16 /min Bloom Sarmini [facility] 02-10-2023 13:50-0400 Respiratory rate 16 /min Bloom Sarmini [facility] 02-10-2023 13:44-0400 Respiratory rate 10 /min Bloom Sarmini [facility] 02-10-2023 13:15-0400 Body temperature 97.52 [degF] Bloom Sarmini [facility] 02-07-2023 12:59-0400 Blood Pressure Location Elvi Lovelace [facility] 02-07-2023 12:59-0400 Body temperature 97.52 [degF] Elvi Mackeyler [facility] 02-07-2023 12:59-0400 Diastolic blood pressure 70 mm[Hg] Elvinemesio Mackeyler [facility] 02-07-2023 12:59-0400 Heart rate 67 /min Elvi Mackeyler [facility] 02-07-2023 12:59-0400 SaO2% (BldA) [Mass fraction] 97 % Elvi Missler [facility] 02-07-2023 12:59-0400 Systolic blood pressure 132 mm[Hg] Elvi Missler [facility] 12-10-2022 10:07-0400 Blood Pressure Location Bloom Sarmini [facility] 12-10-2022 10:07-0400 Diastolic blood pressure 76 mm[Hg] Bloom Sarmini [facility] 12-10-2022 10:07-0400 Heart rate 69 /min Bloom Sarmini [facility] 12-10-2022 10:07-0400 Respiratory rate 16 /min Bloom Sarmini [facility] 12-10-2022 10:07-0400 SaO2% (BldA) [Mass fraction] 99 % Bloom Sarmini [facility] 12-10-2022 10:07-0400 Systolic blood pressure 133 mm[Hg] Bloom Sarmini [facility] 11-22-2022 13:57-0400 Diastolic blood pressure 76 mm[Hg] Deonte ROSARIO [facility] 11-22-2022 13:57-0400 Mean blood pressure 95 mm[Hg] Deonte ROSARIO [facility] 11-22-2022 13:57-0400 Systolic blood pressure 132 mm[Hg] Deonte ROSARIO [facility] 11-22-2022 13:53-0400 Blood Pressure Location Deonte ROSARIO [facility] 11-22-2022 13:53-0400 Body temperature 97.52 [degF] Deonte ROSARIO [facility] 11-22-2022 13:53-0400 Diastolic blood pressure 76 mm[Hg] [facility] [facility] 11-22-2022 13:53-0400 Heart rate 60 /min Deonte ROSARIO [facility] 11-22-2022 13:53-0400 SaO2% (BldA) [Mass fraction] 98 % Deonte ROSARIO [facility] 11-22-2022 13:53-0400 Systolic blood pressure 142 mm[Hg] Deonte ROSARIO [facility] 07-31-2022 13:54-0400 Blood Pressure Location Deonte ROSARIO [facility] 07-31-2022 13:54-0400 Diastolic blood pressure 70 mm[Hg] Deonte ROSARIO [facility] 07-31-2022 13:54-0400 Heart rate 84 /min Deonte ROSARIO [facility] 07-31-2022 13:54-0400 Respiratory rate 18 /min Deonte ROSARIO [facility] 07-31-2022 13:54-0400 SaO2% (BldA) [Mass fraction] 98 % Deonte ROSARIO [facility] 07-31-2022 13:54-0400 Systolic blood pressure 134 mm[Hg] Deonte ROSARIO [facility] 07-31-2022 12:49-0400 Blood Pressure Location Deonte ROSARIO [facility] 07-31-2022 12:49-0400 Body temperature 97.7 [degF] Deonte ROSARIO [facility] 07-31-2022 12:49-0400 Diastolic blood pressure 70 mm[Hg] Deonte PAULO [facility] 07-31-2022 12:49-0400 Heart rate 84 /min Deonte ROSARIO [facility] 07-31-2022 12:49-0400 SaO2% (BldA) [Mass fraction] 98 % Deonte ROSARIO [facility] 07-31-2022 12:49-0400 Systolic blood pressure 134 mm[Hg] Deonte ROSARIO [facility] 06-20-2022 08:00-0500 Body temperature 98.6 [degF] Rod Bhatti MD [facility] Phone: [facility] 06-20-2022 08:00-0500 Diastolic blood pressure 68 mm[Hg] Rod Bhatti MD Work Phone: [facility] [email or web address] 06-20-2022 08:00-0500 Heart rate 92 /min Rod Bhatti MD [facility] 06-20-2022 08:00-0500 Respiratory rate 23 /min Rod Bhatti MD Work Phone: [facility] [email or web address] 06-20-2022 08:00-0500 SaO2% (BldA) [Mass fraction] 99 % Rod Bhatti MD Work Phone[facility] [email or web address] 06-20-2022 08:00-0500 Systolic blood pressure 139 mm[Hg] Rod Bhatti MD [facility] 06-20-2022 06:00-0500 Body mass index (BMI) [Ratio] 23.86 kg/m2 Rod Bhatti MD [facility] 06-20-2022 06:00-0500 Body weight 63.05 kg Rod Bhatti MD [facility] 06-17-2022 08:00-0500 Body height 162.6 cm Rod Bhatti MD Work Phone: [facility] 05-16-2022 13:20-0500 Blood Pressure Location Juancho Contreras [facility] 05-16-2022 13:20-0500 Diastolic blood pressure 78 mm[Hg] Juancho Contreras [facility] 05-16-2022 13:20-0500 Heart rate 71 /min Juancho Contreras [facility] 05-16-2022 13:20-0500 Respiratory rate 18 /min Juancho Contreras [facility] 05-16-2022 13:20-0500 SaO2% (BldA) [Mass fraction] 98 % Juancho Contreras [facility] 05-16-2022 13:20-0500 Systolic blood pressure 124 mm[Hg] Juancho Contreras [facility] 05-01-2022 09:48-0500 Blood Pressure Location Deonte ROSARIO [facility] 05-01-2022 09:48-0500 Body temperature 98.06 [degF] Deonte ROSARIO [facility] 05-01-2022 09:48-0500 Diastolic blood pressure 70 mm[Hg] Deonte ROSARIO [facility] 05-01-2022 09:48-0500 Heart rate 74 /min Deonte ROSARIO [facility] 05-01-2022 09:48-0500 SaO2% (BldA) [Mass fraction] 97 % Deonte ROSARIO [facility] 05-01-2022 09:48-0500 Systolic blood pressure 112 mm[Hg] Deonte ROSARIO [facility] 03-18-2022 10:50-0500 Diastolic blood pressure 68 mm[Hg] Dinero SALAM [facility] 03-18-2022 10:50-0500 Heart rate 91 /min Dinero SALAM [facility] 03-18-2022 10:50-0500 Respiratory rate 20 /min Dinero SALAM [facility] 03-18-2022 10:50-0500 SaO2% (BldA) [Mass fraction] 96 % Dinero SALAM [facility] 03-18-2022 10:50-0500 Systolic blood pressure 160 mm[Hg] Dinero SALAM [facility] 03-18-2022 10:35-0500 Diastolic blood pressure 68 mm[Hg] Dinero SALAM [facility] 03-18-2022 10:35-0500 Heart rate 78 /min Dinero SALAM [facility] 03-18-2022 10:35-0500 Respiratory rate 15 /min Dinero SALAM [facility] 03-18-2022 10:35-0500 SaO2% (BldA) [Mass fraction] 96 % Dinero SALAM [facility] 03-18-2022 10:35-0500 Systolic blood pressure 131 mm[Hg] Dinero SALAM [facility] 03-18-2022 10:30-0500 Diastolic blood pressure 54 mm[Hg] Dinero SALAM [facility] 03-18-2022 10:30-0500 Heart rate 78 /min Dinero SALAM [facility] 03-18-2022 10:30-0500 Respiratory rate 16 /min Dinero SALAM [facility] 03-18-2022 10:30-0500 SaO2% (BldA) [Mass fraction] 97 % Dinero SALAM [facility] 03-18-2022 10:30-0500 Systolic blood pressure 107 mm[Hg] Dinero SALAM [facility] 03-18-2022 10:23-0500 Blood Pressure Location Dinero SALAM [facility] 03-18-2022 10:23-0500 Body temperature 96.8 [degF] Dinero SALAM [facility] 03-18-2022 09:11-0500 Blood Pressure Location Dinero SALAM [facility] 03-18-2022 09:11-0500 Body temperature 98.06 [degF] Dinero SALAM [facility] 03-18-2022 09:11-0500 Respiratory rate 22 /min Dinero SALAM [facility] 01-30-2022 10:52-0400 Blood Pressure Location Dinero SALAM [facility] 01-30-2022 10:52-0400 Diastolic blood pressure 84 mm[Hg] Dinero SALAM [facility] 01-30-2022 10:52-0400 Heart rate 74 /min Dinero SALAM [facility] 01-30-2022 10:52-0400 Respiratory rate 16 /min Dinero SALAM [facility] 01-30-2022 10:52-0400 Systolic blood pressure 138 mm[Hg] Dinero SALAM [facility] 01-22-2022 11:40-0400 Blood Pressure Location Deonte ROSARIO [facility] 01-22-2022 11:40-0400 Body temperature 97.7 [degF] Deonte ROSARIO [facility] 01-22-2022 11:40-0400 Diastolic blood pressure 70 mm[Hg] Deonte ROSARIO [facility] 01-22-2022 11:40-0400 Heart rate 71 /min Deonte ROSARIO [facility] 01-22-2022 11:40-0400 SaO2% (BldA) [Mass fraction] 96 % Deonte ROSARIO [facility] 01-22-2022 11:40-0400 Systolic blood pressure 124 mm[Hg] Deonte ROSARIO [facility] 01-18-2022 13:40-0400 Diastolic blood pressure 74 mm[Hg] Juancho Contreras [facility] 01-18-2022 13:40-0400 Mean blood pressure 100 mm[Hg] Juancho Contreras [facility] 01-18-2022 13:40-0400 Systolic blood pressure 151 mm[Hg] Juancho Contreras [facility] 01-18-2022 13:30-0400 Blood Pressure Location Juancho Contreras [facility] 01-18-2022 13:30-0400 Diastolic blood pressure 74 mm[Hg] Juancho Contreras [facility] 01-18-2022 13:30-0400 Heart rate 87 /min Juancho Contreras [facility] 01-18-2022 13:30-0400 Respiratory rate 18 /min Juancho Contreras [facility] 01-18-2022 13:30-0400 SaO2% (BldA) [Mass fraction] 100 % Juancho Contreras [facility] 01-18-2022 13:30-0400 Systolic blood pressure 156 mm[Hg] Juancho Contreras [facility] 12-28-2021 10:17-0400 Blood Pressure Location Juancho Contreras [facility] 12-28-2021 10:17-0400 Diastolic blood pressure 72 mm[Hg] Juancho Contreras [facility] 12-28-2021 10:17-0400 Heart rate 82 /min Juancho Contreras [facility] 12-28-2021 10:17-0400 Respiratory rate 18 /min Juancho Contreras [facility] 12-28-2021 10:17-0400 SaO2% (BldA) [Mass fraction] 97 % Juancho Contreras [facility] 12-28-2021 10:17-0400 Systolic blood pressure 131 mm[Hg] Juancho Contreras [facility] 11-30-2021 15:10-0400 Diastolic blood pressure 80 mm[Hg] Juancho Contreras [facility] 11-30-2021 15:10-0400 Mean blood pressure 115 mm[Hg] Juancho Contreras [facility] 11-30-2021 15:10-0400 Systolic blood pressure 186 mm[Hg] Juancho Contreras [facility] 11-30-2021 15:00-0400 Blood Pressure Location Juancho Contreras [facility] 11-30-2021 15:00-0400 Diastolic blood pressure 95 mm[Hg] Juancho Contreras [facility] 11-30-2021 15:00-0400 Heart rate 96 /min Juancho Contreras [facility] 11-30-2021 15:00-0400 Respiratory rate 18 /min Juancho Florin [facility] 11-30-2021 15:00-0400 SaO2% (BldA) [Mass fraction] 98 % Juancho Contreras [facility] 11-30-2021 15:00-0400 Systolic blood pressure 195 mm[Hg] Juancho Contreras [facility] 10-17-2021 11:00-0400 Blood Pressure Location Deonte ROSARIO [facility] 10-17-2021 11:00-0400 Body temperature 97.88 [degF] Deonte ROSARIO [facility] 10-17-2021 11:00-0400 Diastolic blood pressure 78 mm[Hg] Deonte ROSARIO [facility] 10-17-2021 11:00-0400 Heart rate 62 /min Deonte ROSARIO [facility] 10-17-2021 11:00-0400 SaO2% (BldA) [Mass fraction] 99 % Deonte ROSARIO [facility] 10-17-2021 11:00-0400 Systolic blood pressure 122 mm[Hg] Deonte ROSARIO [facility] Encounters Encounter Date Encounter Type Care Provider Facility Start: 04-15-2023 End: 04-16-2023 [facility]:Guillaume leavitt Start: 04-11-2023 End: 04-12-2023 ambulatory Deonte ROSARIO Facility:[facility] Start: 04-11-2023 End: 04-11-2023 Patient encounter procedure Deonte Dyana ROSARIO [facility] Start: 03-04-2023 End: 03-05-2023 ambulatory Deonte ROSARIO Facility:[facility] Start: 03-04-2023 End: 03-04-2023 Patient encounter procedure Deonte ROSARIO [facility] Start: 02-10-2023 End: 02-11-2023 ambulatory Bloom Talal Sarmini Facility:[facility] Start: 02-10-2023 End: 02-10-2023 Patient encounter procedure Bloom Talal Sarmini [facility] Start: 02-07-2023 End: 02-08-2023 ambulatory COPY ROOM TECHNICIAN-C Elvimariluz Mackeyjodi Facility:[facility] Start: 02-07-2023 End: 02-07-2023 Patient encounter procedure Elvi Lovelace [facility] Start: 01-15-2023 End: 01-16-2023 ambulatory Bloom Talal Sarmini Facility:[facility] Start: 12-10-2022 End: 12-11-2022 ambulatory Bloom Talal Sarmini Facility:[facility] Start: 12-10-2022 End: 12-10-2022 Patient encounter procedure Bloom Talal Sarmini [facility] Start: 11-22-2022 End: 11-23-2022 ambulatory Deonte ROSARIO Facility:[facility] Start: 11-22-2022 End: 11-22-2022 Patient encounter procedure Deonte ROSARIO [facility] Start: 09-20-2022 End: 09-20-[address] DEONTE ROSARIO Facility:[facility] Start: 07-31-2022 End: 08-01-2022 ambulatory Deonte ROSARIO Facility:[facility] Start: 07-31-2022 End: 07-31-2022 Patient encounter procedure Deonte ROSARIO [facility] Start: 07-31-2022 End: 07-31-2022 Well adult monitoring check done Deonte ROSARIO [facility] Start: 07-08-2022 End: 07-09-2022 ambulatory Mamie SCOTT Facility:[facility] Start: 07-02-2022 ambulatory Deonte ROSARIO Facility: [facility] Start: 06-21-2022 End: 07-04-2022 ambulatory Deonte ROSARIO Facility:[id number] Start: 06-17-2022 End: 06-20-2022 Evaluation and management of inpatient JONG CHAVEZ CHETAN [facility] Start: 06-17-2022 End: 06-20-2022 Evaluation and management of inpatient Rod Bhatti MD Work Phone: [facility] Start: 06-16-2022 End: 06-17-[address] DEONTE ROSARIO Facility: Start: 05-16-2022 End: 05-17-2022 ambulatory Juancho CONTRERAS Facility:[facility] Start: 05-16-2022 End: 05-16-2022 Patient encounter procedure Juancho Contreras [facility] Start: 05-01-2022 End: 05-01-2022 Patient encounter procedure Deonte ROSARIO [facility] Start: 03-18-2022 End: 03-18-2022 Patient encounter procedure Rosette HARE [facility] Start: 01-30-2022 End: 01-30-2022 Patient encounter procedure Rosette HARE [facility] Start: 01-22-2022 End: 01-22-2022 Patient encounter procedure Deonte ROSARIO [facility] Start: 01-18-2022 End: 01-18-2022 Patient encounter procedure Juancho Contreras [facility] Start: 01-16-2022 End: 01-16-2022 Patient encounter procedure Juancho Contreras [facility] Start: 12-28-2021 End: 12-28-2021 Patient encounter procedure Juancho Contreras [facility] Start: 11-30-2021 End: 11-30-2021 Patient encounter procedure Juancho Contreras [facility] Start: 10-17-2021 End: 10-17-2021 Patient encounter procedure Deonte ROSARIO [facility] Procedures Date Procedure Procedure Detail [...] Start: 06-17-2022 Glucose blood reagent strip Adrian Riley MD Work Phone: Start: 06-17-2022 COVID-19, RAPID [...] Lumbar Facet Medial Branch Block 6 Deonte CONWEAVER Comment on above: b/l L3/4, L4/5, lL5/S1 [...] Visi t (AWV) Annual Wellness Visit (AWV) [employer] Start: 07-10-2021 COVID-19 Vaccine (5 - Booster for Pfizer series) COVID-19 Vaccine (5 - Booster for Pfizer series) [employer] Start: 10-06-1991 Screening for osteoporosis DEXA (modify frequency per FRAX score) [employer] Start: 1986 Shingles vaccine (1 of 2) Shingles vaccine (1 of 2) [employer] Start: 10-06-1955 DTaP/Tdap/Td vaccine (1 - Tdap) DTaP/Tdap/Td vaccine (1 - Tdap) [employer] Start: 1948 Depression Screen Depression Screen [employer] Start: 1946 Lipid panel Lipids [facility] [employer] End: 06-18-2022 OCCULT BLOOD SCREEN OCCULT BLOOD SCREEN Lab Routine One Time for 1 Occurrences starting 06/18/2022 until 06/18/2022 [employer] Phone: Comment on above: One Time for 1 Occur rences starting 06/18/2022 until 06/18/2022 Oxygen therapy [[facility] Data Set] Initiate Oxygen Therapy Protocol Respiratory Care Routine As Needed until discontinued starting 06/17/2022 [employer] Phone: Comment on above: As Needed until disc ontinued starting 06/17/2022 End: 06-17-2022 Respiratory care evaluation only Respiratory care evaluation only Respiratory Care Routine One Time for 1 Occurrences starting 06/17/2022 until 06/17/2022 [employer] Phone: Comment on above: One Time for 1 Occur rences starting 06/17/2022 until 06/17/2022 End: 06-17-2022 SUPERVISOR INSTRUMENT REPAIR clinical swallow evaluation SUPERVISOR INSTRUMENT REPAIR clinical swallow evaluation SUPERVISOR INSTRUMENT REPAIR Routine One Time for 1 Occurrences starting 06/17/2022 until 06/17/2022 SARAH BETH LEYVA [facility] Work Phone: Comment on above: One Time for 1 Occur rences starting 06/17/2022 until 06/17/2022 Immunizations Immunization Date Immunization Notes Care Provider Nora colinmichelle 04-11-2023 zoster vaccine recombinant Deonte ROSARIO [facility] 03-04-2023 influenza, high dose seasonal, preservative-free Deonte ROSARIO [facility] 02-28-2022 SARS-CoV-2 (COVID-19 ) [id number] Elvi Lovelace [facility] 01-22-2022 influenza, high dose seasonal, preservative-free Deonte ROSARIO [facility] 01-10-2022 influenza virus vacc ine, unspecified formulation Dinero SAL [facility] 05-15-2021 COVID-19, mRNA, LNP- S, PF, 30 mcg/0.3 mL dose Deonte ROSARIO [facility] 03-13-2021 pneumococcal conjuga te vaccine, 13 valent Deonte ROSARIO [facility] 03-13-2021 influenza, high dose seasonal, preservative-free Deonte ROSARIO [facility] 07-12-2020 SARS-CoV-2 (COVID-19 ) mRNA BNT-162b2 vax Deonte PAULO [facility] Comment on above: Result Comment: Huyen sifuentes 06-22-2020 pneumococcal polysaccharide vaccine, 23 valent Deonte ROSARIO [facility] 06-14-2020 SARS-CoV-2 (COVID-19 ) mRNA BNT-162b2 vax Deonte ROSARIO [facility] Comment on above: Result Comment: Matson evue 05-25-2020 canakinumab Deonte ROSARIO [facility] Comment on above: Result Comment: COVI D 19 PFIZER 05-25-2020 SARS-CoV-2 (COVID-19 ) mRNA BNT-162b2 vax [employer] [facility] Comment on above: Result Comment: 2021: [id number] 03-15-2020 influenza virus vacc ine, unspecified formulation Deonte ROSARIO [facility] 02-10-2020 influenza virus vacc ine, unspecified formulation [employer] [facility] 03-18-2019 influenza virus vacc ine, unspecified formulation [employer] [facility] 03-15-2019 influenza virus vacc ine, live, attenuated, for intranasal use Deonte ROSARIO [facility] 03-10-2018 influenza virus vacc ine, unspecified formulation [employer] [facility] 02-16-2016 influenza virus vacc ine, unspecified formulation [employer] [facility] 02-16-2016 pneumococcal conjuga te vaccine, 13 valent Deonte CONWEAVER [facility] 05-12-2014 pneumococcal conjuga te vaccine, 13 valent Deonte ROSARIO [facility] 01-21-2011 pneumococcal polysaccharide vaccine, 23 valent Deonte ROSARIO [facility] Comment on above: Reason for Medicatio n: Other (see comment) Payers Date Payer Category Payer Unknown [id number] 2021 Medicaid [id number] 1. [id number] 1959 Medicare [id number] 1936 Unknown [id number] 2.16. [id number] 1936 Unknown [id number] 2.16.84 [id number] 1936 Unknown [id number] 2.16.84 [id number] 1936 Unknown [id number] 2.16.8 [id number] 1936 Unknown [id number] 2.16.8 [id number] 1936 Unknown [id number] 2.16.8 [id number] 1936 Unknown [id number] 2.16.8 [id number] 1936 Unknown [id number] 2.16.8 [id number] 1936 Unknown [id number] 2.16.8 [id number] 1936 Unknown [id number] 2.16.8 [id number] 1936 Unknown [id number] 2.16.8 [id number] 1936 Unknown [id number] 2.16.8 [id number] 1936 Unknown [id number] 2.16.8 [id number] 1936 Unknown [id number] 2.16.8 [id number] 1936 Unknown [id number] 2.16.8 [id number] 1936 Unknown [id number] 2.16.8 [id number] 1936 Unknown [id number] 2.16.8 [id number] Social History Date Type Detail Facility Start: 07-03-2021 End: 03-04-2023 Tobacco smoking status Never smoked tobacco (finding) [facility] Comment on above: denies use Tobacco smoking status Never [facility] Comment on above: denies use Sex Assigned At Female [facility] Tobacco smoking stat [facility] Tobacco smoking consumption unknown [employer] Work Phone: Start: 1935 Sex Assigned At Not on file [employer] Work Phone: Goals Date Patient Goal Desired Activity /State 05-17-2019 Functional Status Date Assessment Result Facility 03-04-2023 Functional Status N/A [facility] 02-10-2023 Functional Status N/A [facility] 02-07-2023 Functional Status N/A [facility] 12-10-2022 Functional Status N/A [facility] 11-22-2022 Functional Status N/A [facility] 07-31-2022 Functional Status N/A [facility] 07-31-2022 Functional Status [facility] 05-16-2022 Functional Status N/A [facility] 05-01-2022 Functional Status N/A [facility] 03-18-2022 Functional Status N/A [facility] 01-30-2022 Functional Status N/A [facility] 01-22-2022 Functional Status N/A [facility] 01-18-2022 Functional Status N/A [facility] 12-28-2021 Functional Status N/A [facility] 11-30-2021 Functional Status N/A [facility] Clinical Notes 01-05-2020 to 03-04-2023 Telyssa Carrion - 06/19/2022 5:15 PM Jennifer Villar RN - 06/19/2022 12:09 PM Jennifer Villar RN - 06/19/2022 11:30 AM Khoi Cheung PTA - 06/19/2022 9:27 AM ESTLaboratory Note Date & Type Note Facility 03-04-2023 Hospital Discharge instructions Patient Education 03/04/2023 13:26:32 Hypertension, Adult, [facility]-an-Hunn Hypertension, Adult Hypertension is another name for [...] doctor. Keep all follow-up visits. Medicines Take wwif-ydz-zidagzw and prescription medicines only as told by [...] provider. Document Revised: 02/14/2022 Document Reviewed: 02/14/2022 [email or web address] Patient Education 2022 [employer]. Follow Up Care 11/22/2022 14:18:32 With:PAUOL HINOJOSA, ROCKY Diaz Address: [facility] [address], [place] [address]- When:Within 3 Month(s) [facility] 02-10-2023 Hospital Discharge instructions Patient [...] including vitamins, herbs, eye drops, creams, and ajkm-srh-chwlzex medicines. Any problems you or family members [...] provider tells you to take them. ?Taking zdoq-cvk-aedrxon medicines, vitamins, herbs, and supplements. Follow instructions [...] home. Follow these instructions at home: Take xkku-qtu-rfowdla and prescription medicines only as told by [...] provider. Document Revised: 09/13/2020 Document Reviewed: 09/13/2020 [email or web address] Patient Education 2022 [employer]. 02/10/2023 14:15:49 Upper Endoscopy, Adult, Care After [...] what activities are safe for you. Take pufq-hrw-vbzxtsr and prescription medicines only as told by [...] provider. Document Revised: 03/03/2020 Document Reviewed: 09/28/2018 [email or web address] Patient Education 2022 [employer]. Follow Up Care 01/17/2023 09:40:15 With:Wolf Peres Address: [facility] [address], [address] [address]- [phone] Business (1) When: Unknown Comments:Call for any problems. [facility] 02-07-2023 Hospital Discharge instructions Patient Education 02/07/2023 [...] this treated? Treatment for neuropathic pain may record changer time. You may need to try different treatment options or a combination of treatments. Some options include: Treating the underlying cause of the neuropathy, such as diabetes, kidney disease, or vitamin deficiencies. Stopping medicines that can cause neuropathy, such as chemotherapy. Medicine to relieve pain. Medicines may include: ?Prescription or qvhj-vfv-fqyzehr pain medicine. ?Anti-seizure medicine. ?Antidepressant medicines. ?Pain-relieving [...] Follow these instructions at home: Medicines Take ndta-zjk-rpxkxbp and prescription medicines only as told by your health care provider. Ask your health care provider if the medicine prescribed to you: ?Requires you to avoid driving or using machinery. ?Can cause constipation. You may need to take these actions to prevent or treat constipation: ?Drink enough fluid to keep your urine pale yellow. ?Take auur-omt-pgtmevz or prescription medicines. ?Eat foods that are [...] the National Suicide Prevention Lifeline at or 818. This is open 24 hours a day. Text the Crisis Text Line at 391789. Summary Neuropathic pain is pain caused by [...] provider. Document Revised: 12/24/2021 Document Reviewed: 12/24/2021 [email or web address] Patient Education 2022 [employer] 02/07/2023 13:23:45 Shingles Shingles Shingles, which [...] a specialist, such as an eye doctor (chassis engineer) or an ear, nose, and throat (ENT) doctor (magnetic prospector) to help you avoid eye problems, chronic pain, or disability. Follow these instructions at home: Medicines Take pfuv-wqx-xmwzcnd and prescription medicines only as told by [...] your health care provider. This is an sknb-mhx-gkbnryz lotion that helps to relieve itchiness. Blister and rash care Keep your rash covered with a loose bandage (dressing). Wear loose-fitting clothing to help ease the pain of material rubbing against the rash. Wash your hands with soap and water for at least 20 seconds before and after you change your dressing. If soap and water are not available, use hand taffy candy maker. Change your dressing as told by your [...] and water are not available, use hand taffy candy maker. Doing this lowers your chance of getting [...] provider. Document Revised: 04/23/2021 Document Reviewed: 04/23/2021 [email or web address] Patient Education 2022 [employer]. Follow Up Care 01/29/2023 10:14:04 With:Radu FLORES, Elvi Vergara Address: [address] [place], [place] [address], [place] [address]- When: only if needed [facility] 11-22-2022 Hospital Discharge instructions Patient Education 11/22/2022 14:06:05 Hypertension, Adult, Xvao-db-Ohoa Hypertension, Adult Hypertension is another name for [...] doctor. Keep all follow-up visits. Medicines Take cojc-nue-audfplr and prescription medicines only as told by [...] provider. Document Revised: 02/14/2022 Document Reviewed: 02/14/2022 [employer] Patient Education 2022 [employer]. Follow Up Care 07/31/2022 14:36:54 With:PAULO HINOJOSA, Deonte Turpin, MED Address: [facility] [address] [place] [address] [place], [place] [address]- When:Within 3 Month(s) [facility] 07-31-2022 Hospital Discharge instructions Patient [...] Being older than age 40. Being of -Spanish descent. Having high blood pressure or diabetes. [...] diagnosed through an eye exam by an pharmacy retail support specialist (chassis engineer). This specialist will: Perform a test to [...] medicine. Follow these instructions at home: Take vcbj-gdq-lzrdxek and prescription medicines only as told by [...] 04/28/2006 Document Revised: 04/10/2018 Document Reviewed: 12/25/2017 [email or web address] Patient Education 2020 [employer] 07/31/2022 15:14:02 BMI for Adults BMI [...] height. This can be done either in Croatian ([place].S[place] or metric measurements. Note that charts are available to help you find your BMI quickly and easily without having to do these calculations yourself. To calculate your BMI in Croatian ([place] measurements, your health care provider will: [...] medical problems. BMI can be measured using Croatian measurements or metric measurements. To interpret your [...] 01/07/2005 Document Revised: 04/10/2018 Document Reviewed: 03/11/2018 [email or web address] Patient Education 2020 [employer]. 07/31/2022 14:32:07 Hypertension, Adult, Htyv-hx-Hchp Hypertension, Adult Hypertension is another name for [...] your doctor. This is important. Medicines Take skot-cra-rmmdqoz and prescription medicines only as told by [...] 10/14/2008 Document Revised: 01/06/2019 Document Reviewed: 01/06/2019 [employer] Patient Education 2020 [employer]. Follow Up Care 05/01/2022 10:10:07 With:PAULO HINOJOSA, ROCKY Diaz Address: [address] [place] [address]- When:Within 3 Month(s) [facility] 06-22-2022 Note [id number]:[id number] [facility] 06-19-2022 History of Present illness Narrative CLINICAL PHARMACY NOTE: MEDS TO BEDS Total # of Prescriptions Filled: 2 The following medications were delivered to the patient: Carvedilol prednisone Additional Documentation: Patient back to room from barium swallow test. Patient to barium swallow test with transport. Physical Therapy Facility/Department: [facility] 3- [facility] Physical Therapy Daily treatment note [...] UE assist, no LOB x5 AM-PAC Score AM-[facility] Inpatient Mobility Raw Score : 20 (06/19/22926) AM-[facility] Inpatient T-Scale Score : 47.67 (06/19/22926) [...] Patient's name: Piedad Alatorre Patient's account/billing number: [id number] Patient's Date of : 1935 Age: 86 [...] in muscle strength numbness/tingling HPI: Referred from [facility] ER for the concern of angioedema. Patient was in her normal state and suddenly started noticing tongue swelling, throat swelling with difficulty swallowing and change in her voice at 5 PM yesterday. Denies skin rash or difficulty breathing. [facility], nurse recommended to visit the emergency department. She was seen in the [facility] and was given IV antihistamine Solu-Medrol epi [...] Date 06/19/22 0000 - 06/19/22 2359 Shift [id number] 24 Hour Total INTAKE I.V.(mL/kg) 1(0) 1(0) [...] enzyme inhibitor (MORIS-I) Coronary artery disease involving [place] coronary artery of [place] heart Primary hypertension Resolved Problems: * No [...] MD, Department of Internal Medicine/ Critical care [facility]) 06/19/2022, 7:51 AM Attending Physician Statement [...] this chart was generated using voice recognition vcopious Software[employer] dictation software. Although every effort was made to ensure the accuracy of this automated manager welding, some errors in manager welding may have occurred. Adrian Riley MD 06/19/2022 3:22 PM Physical Therapy Facility/Department: [facility] 3- [facility] Physical Therapy Initial Assessment Name: Piedad Alatorre : 1935 Date of Service: 06/18/2022 Obtained from medical chart: Patient was in her normal state and suddenly started noticing tongue swelling, throat swelling with difficulty swallowing and change in her voice at 5 PM yesterday. Denies skin rash or difficulty breathing. [facility] a [facility], nurse recommended to visit the emergency department. 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 Leisure & Hobbies: listening to music, playing bingo, going to [employer] Vision/Hearing Vision Vision: Impaired ( I can't [...] Oleksandr Cha PT Speech Language Pathology Facility/Department: [facility] 3- [facility] CLINICAL BEDSIDE SWALLOW EVALUATION NAME: Piedad Alatorre : 1935 ADMISSION DATE: 06/17/2022 ADMITTING DIAGNOSIS: has Angioedema of tongue; 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 Date of Eval: 06/18/2022 Evaluating Therapist: MONTSE STAFFORD Current Diet level: Current Diet : NPO Primary Complaint Patient was in her normal state and suddenly started noticing tongue swelling, throat swelling with difficulty swallowing and change in her voice at 5 PM yesterday. Denies skin rash or difficulty breathing. [facility] a [facility], nurse recommended to visit the emergency department. She was seen in the [facility] and was given IV antihistamine Solu-Medrol epi [...] recommendations reported to RN. Treatment Plan Requires SUPERVISOR INSTRUMENT REPAIR Intervention: Yes D/C Recommendations: Ongoing speech therapy [...] 1014 Total Time: 10 MARBELLA HEREDIA M.A. CCC-SUPERVISOR INSTRUMENT REPAIR 06/18/2022 11:39 AM Critical Care Team - Daily Progress Note Date and time: 06/18/2022 8:08 AM Patient's name: Piedad Alatorre Patient's account/billing number: [id number] Patient's Date of : 1935 Age: 86 [...] in muscle strength numbness/tingling HPI: Referred from [facility] ER for the concern of angioedema. Patient was in her normal state and suddenly started noticing tongue swelling, throat swelling with difficulty swallowing and change in her voice at 5 PM yesterday. Denies skin rash or difficulty breathing. [facility], nurse recommended to visit the emergency department. She was seen in the [facility] and was given IV antihistamine Solu-Medrol epi [...] enzyme inhibitor (MORIS-I) Coronary artery disease involving [place] coronary artery of [place] heart Primary hypertension Resolved Problems: * No [...] MD, Department of Internal Medicine/ Critical care [facility]) 06/18/2022, 8:08 AM Attending Physician Statement [...] this chart was generated using voice recognition [employer] dictation software. Although every effort was made to ensure the accuracy of this automated manager welding, some errors in manager welding may have occurred. Adrian Riley MD 06/18/2022 [...] any concerns. Thank you. Paulina Todd PharmD [facility] 06/17/2022 3:07 PM documented in this encounter [facility] Phone: 06-19-2022 Hospital Discharge instructions Abebe Coker [...] to emergency department. documented in this encounter [facility] Phone: 05-01-2022 Hospital Discharge instructions Patient Education 05/01/2022 10:05:57 Hypertension, Adult, Kfnv-mj-Yesu Hypertension, Adult Hypertension is another name for [...] your doctor. This is important. Medicines Take iswx-rec-cgxohqs and prescription medicines only as told by [...] Document Reviewed: 01/06/2019 Elsevier Patient Education 2020 [employer]. Follow Up Care 01/22/2022 12:28:23 With:PAULO HINOJOSA, Deonte Turpin, MED Address: [facility] [address], [place] [address]- When:Within 3 Month(s) [facility] 03-18-2022 Hospital Discharge instructions Patient [...] reduce GERD symptoms. Medicines. These may include: ?Dhke-elp-jndoleb antacids. ?Medicines that make your stomach empty [...] may include: ?Fatty foods, like fried foods. ?Stoddard fruits, like oranges or lemon. ?Other foods [...] Do not drink alcohol. General instructions Take bouv-tvq-ibemqzz and prescription medicines only as told by [...] 07/18/2004 Document Revised: 04/10/2018 Document Reviewed: 12/01/2017 [employer] Patient Education 2019 [employer] Follow Up Care 01/30/2022 11:34:55 With:Rosette HARE Address: [address] [place] [address] Business (1) When: Unknown Comments:OFFICE WILL CALL DATE AND TIME OF FOLLOW-UP APPT. [facility] 01-22-2022 Hospital Discharge instructions Patient Education 01/22/2022 12:06:50 Hypertension, Adult, Vdsk-gt-Mtdt Hypertension, Adult Hypertension is another name for [...] your doctor. This is important. Medicines Take lnhz-pwm-rwljgxa and prescription medicines only as told by [...] 10/14/2008 Document Revised: 01/06/2019 Document Reviewed: 01/06/2019 [employer] Patient Education 2020 [employer]. Follow Up Care 10/17/2021 11:58:35 With:PAULO HINOJOSA, Deonte Turpin, MED Address: [address] [place] [address]- When:Within 3 Month(s) [facility] 10-17-2021 Hospital Discharge instructions Patient Education 10/17/2021 11:53:49 Hypertension, Adult, Aaok-lb-Ywir Hypertension, Adult Hypertension is another name for [...] your doctor. This is important. Medicines Take tlkp-ohn-izslhlg and prescription medicines only as told by [...] 10/14/2008 Document Revised: 01/06/2019 Document Reviewed: 01/06/2019 ElseV[employer]ad Patient Education 2020 [employer]. Follow Up Care 07/03/2021 16:48:31 With:Deonte ROSARIO MD, [facility] Address: [address] [place], [place] [address]- When:Within 3 Month(s) [facility] 01-05-2020 Evaluation + Plan note Future Appointments Appointment Date:01/01/2022 09:00:00 AM Scheduled Provider: [facility] Appointment Type:CV Echo (FT) Appointment Date:01/04/2022 02:00:00 PM Scheduled Provider:Juancho Contreras MD [facility] App[facility] Type:Cardiology Follow Up (FT) Appointment Date:01/22/2022 10:00:00 AM Scheduled Provider:Deonte ROSARIO MD Location:[facility] Appointment Type:FM Open Appointment Date:01/30/2022 10:30:00 AM Scheduled Provider:Rosette HARE MD Location:[facility] Appointment Type:BADH Follow Up Future Scheduled TmdllWmqD6w 03/13/21CBC w/ Auto Diff 03/13/21Comprehensive Metabolic Panel 03/13/21Lipid Panel 03/13/21Echo Transthoracic Complete 01/01/22 [facility] Evaluation + Plan note Future Appointments Appointment Date:01/22/2022 10:00:00 AM Scheduled Provider:Deonte ROSARIO MD Location:[facility] Appointment Type:FM Open Future Scheduled CorufPkkY1x 03/13/21CBC w/ Auto Diff 03/13/21Comprehensive Metabolic Panel 03/13/21Lipid Panel 03/13/21 [facility] Evaluation + Plan note Future Appointments Appointment Date:12/14/2021 10:30:00 AM Scheduled Provider: [facility] App[facility] Type:Cardiology Nurse Visit (FT) Appointment Date:01/04/2022 02:00:00 PM Scheduled Provider:Juancho Contreras MD [facility] Appointment Type:Cardiology Follow Up (FT) Appointment Date:01/22/2022 10:00:00 AM Scheduled Provider:Deonte ROSARIO MD Location:[facility] Appointment Type:FM Open Appointment Date:01/30/2022 10:30:00 AM Scheduled Provider:Rosette HARE MD Location:[facility] Appointment Type:BADH Follow Up Future Scheduled DgenhSlpL1b 11/2/21CBC w/ Auto Diff 11/2/21Comprehensive Metabolic Panel 112/21Lipid Panel 03/13/21Echo Transthoracic Complete 11/30/21 [facility] Evaluation + Plan note Future Appointments Appointment Date:01/18/2022 01:30:00 PM Scheduled Provider:Juancho Contreras MD [facility] App[facility] Type:Cardiology Follow Up (FT) Appointment Date:01/22/2022 10:00:00 AM Scheduled Provider:Deonte ROSARIO MD Location:[facility] Appointment Type:FM Open Appointment Date:01/30/2022 10:30:00 AM Scheduled Provider:Rosette HARE MD Location:[facility] Appointment Type:BAD Follow Up Future Scheduled MnprzKpxA6p 112/21CBC w/ Auto Diff //21Comprehensive Metabolic Panel 03/13/21Lipid Panel 03/13/21 [facility] Evaluation + Plan note Future Appointments Appointment Date:01/22/2022 10:00:00 AM Scheduled Provider:Deonte ROSARIO MD Location:[facility] Appointment Type:FM Open Appointment Date:01/30/2022 10:30:00 AM Scheduled Provider:Rosette HARE MD Location:[facility] Appointment Type:BADH Follow Up Appointment Date:05/16/2022 01:15:00 PM Scheduled Provider:Juancho Contreras MD [facility] Type:Cardiology Follow Up (FT) Future Scheduled NpefvWrpP3p 11/2/21CBC w/ Auto Diff 11/2/21Comprehensive Metabolic Panel 11/2/21Lipid Panel 2/21Lipid Panel 01/18/22 [facility] Evaluation + Plan note Future Appointments Appointment Date:01/30/2022 10:30:00 AM Scheduled Provider:Rosette HARE MD Location:[facility] Appointment Type:BADH Follow Up Appointment Date:05/01/2022 10:00:00 AM Scheduled Provider:Deonte ROSARIO MD Location:[facility] Appointment Type:FM Open Appointment Date:05/16/2022 01:15:00 PM Scheduled Provider:Juancho Contreras MD [facility] Appointment Type:Cardiology Follow Up (FT) Future Scheduled JisjlGugC0v 01/22/2242YseO5y 03/13/21CBC w/ Auto Diff 01/22/22CBC w/ Auto Diff 03/13/21Comprehensive Metabolic Panel 01/22/22Comprehensive Metabolic Panel 03/13/21Lipid Panel 01/22/22Lipid Panel 03/13/21Lipid Panel 01/18/22 [facility] Evaluation + Plan note Future Appointments Appointment Date:02/18/2022 02:30:00 PM Scheduled Provider: Location:[facility] Appointment Type:Surgery FT Appointment Date:05/01/2022 10:00:00 AM Scheduled Provider:Deonte ROSARIO MD Location:[facility] Appointment Type: Open Appointment Date:05/16/2022 01:15:00 PM Scheduled Provider:Juancho Contreras MD [facility] Type:Cardiology Follow Up (FT) Future Scheduled HpplfJfcR9h 01/22/2207OneB9f 03/13/21IgA, Quant. 01/30/22t-Transglutaminase IgA 01/30/22CBC w/ Auto Diff 01/22/22CBC w/ Auto Diff 03/13/21Comprehensive Metabolic Panel 01/22/22Comprehensive Metabolic Panel 03/13/21GGT 01/30/22Lipid Panel 01/22/22Lipid Panel 03/13/21Lipid Panel 01/18/22Reticulocyte Count 01/30/22Thyroid Stimulating Hormone 01/30/22 [facility] Evaluation + Plan note Future Appointments Appointment Date:05/01/2022 10:00:00 AM Scheduled Provider:Deonte ROSARIO MD Location:[facility] Appointment Type:FM Open Appointment Date:05/16/2022 01:15:00 PM Scheduled Provider:Juancho Contreras MD [facility] Type:Cardiology Follow Up (FT) Future Scheduled OfpjqJqjJ7k 01/22/22IgA, Quant. 01/30/22t-Transglutaminase IgA 01/30/22CBC w/ Auto Diff 01/22/22Comprehensive Metabolic Panel 01/22/22GGT 01/30/22Lipid Panel 01/22/22Lipid Panel 01/18/22Reticulocyte Count 01/30/22Thyroid Stimulating Hormone 01/30/22 [facility] Evaluation + Plan note Future Appointments Appointment Date:05/16/2022 01:15:00 PM Scheduled Provider:Juancho Contreras MD [facility] Type:Cardiology Follow Up (FT) Appointment Date:07/31/2022 01:00:00 PM Scheduled Provider: Location:[facility] Appointment Type: Medicare Wellness Initial Appointment Date:07/31/2022 02:00:00 PM Scheduled Provider:Deonte ROSARIO MD Location:[facility] Appointment Type: Open Future Scheduled DlcjbQqwV6y 01/22/22IgA, Quant. 01/30/22t-Transglutaminase IgA 01/30/22CBC w/ Auto Diff 01/22/22Comprehensive Metabolic Panel 01/22/22GGT 01/30/22Lipid Panel 01/22/22Lipid Panel 01/18/22Reticulocyte Count 01/30/22Thyroid Stimulating Hormone 01/30/22 [facility] Evaluation + Plan note Future Appointments Appointment Date:07/31/2022 01:00:00 PM Scheduled Provider: Location:[facility] Appointment Type: Medicare Wellness Initial Appointment Date:07/31/2022 02:00:00 PM Scheduled Provider:Deonte ROSARIO MD Location:[facility] Appointment Type:FM Open Future Scheduled KbzatQcdO9f 01/22/22IgA, Quant. 01/30/22t-Transglutaminase IgA 01/30/22CBC w/ Auto Diff 01/22/22Comprehensive Metabolic Panel 01/22/22GGT 01/30/22Lipid Panel 01/22/22Lipid Panel /10/01Lipid Panel /01/31Reticulocyte Count 01/30/22Thyroid Stimulating Hormone 01/30/22NM Myocardial Spect Rest/Stress 1 Day 05/16/22 [facility] Evaluation + Plan note Future Appointments Appointment Date:11/22/2022 01:40:00 PM Scheduled Provider:Deonte ROSARIO MD Location:[facility] Appointment Type: Open Appointment Date:08/01/2023 01:00:00 PM Scheduled Provider: Location:[facility] Appointment Type: Medicare Wellness Subsequent Future Scheduled WxdypYusR7b 01/22/22IgA, Quant. 01/30/22t-Transglutaminase IgA 01/30/22CBC w/ Auto Diff 01/22/22Comprehensive Metabolic Panel 01/22/22GGT 01/30/22Lipid Panel 01/22/22Lipid Panel /10/01Lipid Panel /01/31Reticulocyte Count 01/30/22Thyroid Stimulating Hormone 01/30/22NM Myocardial Spect Rest/Stress 1 Day 07/08/22 [facility] Evaluation + Plan note Future Appointments Appointment Date:03/04/2023 01:20:00 PM Scheduled Provider:Deonte ROSARIO MD Location:[facility] Appointment Type: Open Appointment Date:08/01/2023 01:00:00 PM Scheduled Provider: Location:[facility] Appointment Type: Medicare Wellness Subsequent Future Scheduled IlnwsWfrQ6c 01/22/22IgA, Quant. 01/30/22t-Transglutaminase IgA 01/30/22CBC w/ Auto Diff 01/22/22Comprehensive Metabolic Panel 01/22/22GGT 01/30/22Lipid Panel 01/22/22Lipid Panel 1/10/01Lipid Panel 9/01/31Reticulocyte Count 01/30/22Thyroid Stimulating Hormone 01/30/22NM Myocardial Spect Rest/Stress 1 Day 07/08/22 [facility] Evaluation + Plan note Future Appointments Appointment Date:02/10/2023 01:30:00 PM Scheduled Provider: Location:[facility] Appointment Type:Surgery FT Appointment Date:03/04/2023 01:20:00 PM Scheduled Provider:Deonte ROSARIO MD Location:[facility] Appointment Type: Open Appointment Date:04/11/2023 09:40:00 AM Scheduled Provider: Location:[facility] Appointment Type: Nurse Visit Appointment Date:08/01/2023 01:00:00 PM Scheduled Provider: Location:[facility] Appointment Type: Medicare Wellness Subsequent Future Scheduled TestsLipid Panel 05/16/22NM Myocardial Spect Rest/Stress 1 Day 07/08/22 [facility] Evaluation + Plan note Future Appointments Appointment Date:03/04/2023 01:20:00 PM Scheduled Provider:[facility]AR[facility] Type: Open Appointment Date:04/11/2023 09:40:00 AM Scheduled Provider: Location:[facility] Appointment Type: Nurse Visit Appointment Date:08/01/2023 01:00:00 PM Scheduled Provider: Location:[facility] Appointment Type: Medicare Wellness Subsequent Future Scheduled TestsCBC w/ Auto Diff 02/08/23Comprehensive Metabolic Panel 02/08/23Ferritin 02/08/23Folate Level 02/08/23Iron Level 02/08/23Iron Percent Saturation 02/08/23Lipid Panel 05/16/22Reticulocyte Count 02/08/23Vitamin B12 Level 02/08/23NM Myocardial Spect Rest/Stress 1 Day 07/08/22 [facility] Evaluation + Plan note Future Appointments Appointment Date:04/11/2023 09:40:00 AM Scheduled Provider[facility] App[facility] Type:FM Nurse Visit Appointment Date:06/04/2023 12:00:00 PM Scheduled Provider:Deonte ROSARIO MD Location:[facility] Appointment Type: Open Appointment Date:08/01/2023 01:00:00 PM Scheduled Provider: Location:[facility] Appointment Type: Medicare Wellness Subsequent Future Scheduled IhqtrFweI6w 03/04/23CBC w/ Auto Diff 03/04/23CBC w/ Auto Diff 02/08/23Comprehensive Metabolic Panel 03/04/23Comprehensive Metabolic Panel 02/08/23Ferritin 03/04/23Ferritin 02/08/23Folate Level 03/04/23Folate Level 02/08/23Iron Level 03/04/23Iron Level 02/08/23Iron Percent Saturation 02/08/23Lipid Panel 10Lipid Panel 05/16/22Reticulocyte Count 03/04/23Reticulocyte Count 02/08/23Vitamin B12 Level 03/04/23Vitamin B12 Level 02/08/23NM Myocardial Spect Rest/Stress 1 Day 07/08/22 [facility] Evaluation + Plan note Future Appointments Appointment Date:04/15/2023 01:40:00 PM Scheduled Provider:Brunilda Redding CNP Location:[facility] Appointment Type:BADH Follow Up Appointment Date:06/04/2023 12:00:00 PM Scheduled Provider:Deonte ROSARIO MD Location:[facility] Appointment Type: Open Appointment Date:08/01/2023 01:00:00 PM Scheduled Provider: Location:[facility] Appointment Type: Medicare Wellness Subsequent Future Scheduled [id number] 03/04/23CBC w/ Auto Diff 03/04/23CBC w/ Auto Diff 02/08/23Comprehensive Metabolic Panel 03/04/23Comprehensive Metabolic Panel 02/08/23Ferritin 03/04/23Ferritin 02/08/23Folate Level 03/04/23Folate Level 02/08/23Iron Level 10Iron Level 02/08/23Iron Percent Saturation 02/08/23Lipid Panel 03/04/23Lipid Panel 05/16/22Reticulocyte Count 03/04/23Reticulocyte Count 02/08/23Vitamin B12 Level 03/04/23Vitamin B12 Level 02/08/23NM Myocardial Spect Rest/Stress 1 Day 07/08/22 [facility] Evaluation note Diagnosis 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) Coronary artery disease involving [place] coronary artery of [place] heart Primary hypertension Unspecified essential hypertension Lung nodule, solitary, 8 mm documented in this encounter [facility] Work Phone: Hospital course Narrative No data available for this section [facility] Discharge instructions No data available for this section [facility] No data available for this section [facility] Referred by: Deonte ROSAROI MD [facility] Summary Purpose Family History No [...] section and content) DATE CREATED AUTHOR 11/28/2020 [facility] DATE CREATED AUTHOR AUTHOR'S ORGANIZ ATION 06/21/2022 [facility] DATE CREATED AUTHOR AUTHOR'S ORGANIZ ATION 09/20/2022 [facility] DATE CREATED AUTHOR AUTHOR'S ORGANIZ ATION 05/02/2023 [facility] Team (unrecognized sect ion and content) [employer] Relationship Specialty Start Date End Date Deonte Rosario MD [address] [place] [address] PCP - General Internal Medicine 06/12/22 Ordered [...] BE BASED ON THE PRIMARY CLINICAL RECORDS. [employer] provides no warranty or guarantee of the accuracy or completeness of information in this document.
== END 2023-06-15 11:57 | disposition home or self-care (01) ==
LOC: ER 11:58
PROVIDERS: Emergency Provider Emergency Medicine
DX: H57.11 Ocular pain, right eye (principal); Z79.82 Long term (current) use of aspirin; Z79.899 Other long term (current) drug therapy
CPT/HCPCS: 99283

== ENCOUNTER 2023-08-26 17:03 | Observation (INO) | payer MEDICARE, MEDICAID, SELFPAY ==
[2023-08-26] VITALS (25 sets, daily range): BP systolic 128–176; BP diastolic 70–90; PULSE 71–106; TEMP 36.4–36.7; O2SAT 85–100; BMI 24.6; BMI 22.3
--- NOTE | 2023-08-26 17:10 | ECG_ITS ---
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
--- NOTE | 2023-08-26 17:11 | ED_ITS ---
HPI HPI - General Adult General Chief complaint: Upper Respiratory Infection Stated complaint: Difficulty Breathing Time Seen by Provider: 08/26/23 17:08 Source: patient Mode of arrival: ambulance Limitations: no limitations History of Present Illness HPI narrative: Patient is an 87-year-old female who presents to the emergency department from the assisted living where she is a resident for cough and congestion that has not improved over the last week. She was treated With azithromycin which she finished about 1 week ago for cough and congestion. She has not improved. She was not prescribed any inhalers or steroids. She is audibly wheezing at initial interview. She denies chest pain. She has not had any fevers, vomiting or diarrhea. Related Data Home Medications ?Medication ?Instructions ?Recorded ?Confirmed amlodipine 5 mg tablet 5 mg PO DAILY 03/26/23 08/26/23 aspirin 81 mg tablet,delayed 81 mg PO DAILY 03/26/23 08/26/23 release (Adult Aspirin Regimen) atorvastatin 80 mg tablet 80 mg PO DAILY 03/26/23 08/26/23 carvedilol 25 mg tablet 25 mg PO Q12H 03/26/23 08/26/23 clonidine HCl 0.1 mg tablet 0.1 mg PO Q12H 03/26/23 08/26/23 cyclosporine 0.09 % eye drops in a 1 drp ophthalmic (eye) Q12H 03/26/23 08/26/23 dropperette (Cequa) docusate sodium 100 mg capsule 100 mg PO BID PRN constipation 03/26/23 08/26/23 (Col-Rite) ferrous sulfate 325 mg (65 mg 325 mg PO DAILY 03/26/23 08/26/23 iron) tablet (Feosol) ipratropium bromide 21 mcg (0.03 2 spray intranasal TID PRN allergy 03/26/23 08/26/23 %) nasal spray symptoms isosorbide mononitrate 30 mg 30 mg PO BID 03/26/23 08/26/23 tablet,extended release 24 hr ondansetron HCl 4 mg tablet 4 mg PO Q8H PRN nausea and vomiting 03/26/23 08/26/23 pantoprazole 40 mg tablet,delayed 40 mg PO DAILY 03/26/23 08/26/23 release spironolactone 25 mg tablet 25 mg PO DAILY 03/26/23 08/26/23 ticagrelor 90 mg tablet (Brilinta) 90 mg PO Q12H 03/26/23 08/26/23 trazodone 50 mg tablet 50 mg PO DAILY PRN insomnia 03/26/23 08/26/23 Allergies Allergy/AdvReac Type Severity Reaction Status Date / Time Penicillins Allergy Severe Verified 03/26/23 10:06 lisinopril Allergy Unknown Verified 03/26/23 10:06 metaxalone [From Skelaxin] Allergy Unknown Verified 03/26/23 10:06 Opioid HPI Opioid Management Most Recent Opioid Data: No Data to Display Review of Systems ROS Constitutional Denies: fever or chills Ears, nose, mouth, and throat Reports: nasal congestion; Denies: throat pain Cardiovascular Denies: chest pain Respiratory Reports: shortness of breath, cough and wheezing; Denies: change in phlegm color or coughing up blood Gastrointestinal Denies: nausea, vomiting or diarrhea Musculoskeletal Denies: back pain Integumentary/Breast Denies: rash Hematologic/Lymphatic Denies: easy bruising or easy bleeding PFSH PFSH Social History Smoking status: Never smoker Exam Narrative Exam Narrative: Gen.: Awake, alert, in no distress Head: Normocephalic, atraumatic ENT: Moist mucous membranes Respiratory: No respiratory distress, Speaks in full sentences with inspiratory and expiratory wheezing and scattered rhonchi Cardio: Regular rate and rhythm Extremities: Moves extremities equally, no pedal edema Psych: Normal mood and affect Neuro: No focal neuro deficit Skin: Warm, dry, intact Constitutional Vital Signs, click to edit/add: Last Vital Signs Temp 97.5 F L 08/26/23 17:06 Pulse 85 08/26/23 18:30 Resp 15 08/26/23 18:30 BP 155/72 H 08/26/23 18:00 Pulse Ox 94 L 08/26/23 18:30 O2 Del Method Room Air 08/26/23 17:24 Course Vital Signs Vital signs: Vital Signs Temperature 97.5 F L 08/26/23 17:06 Pulse Rate 99 H 08/26/23 17:06 Respiratory Rate 18 08/26/23 17:06 Blood Pressure 155/90 H 08/26/23 17:06 Pulse Oximetry 97 08/26/23 17:06 Oxygen Delivery Method Room Air 08/26/23 17:06 Temperature 97.5 F L 08/26/23 17:06 Pulse Rate 85 08/26/23 18:30 Respiratory Rate 15 08/26/23 18:30 Blood Pressure 155/72 H 08/26/23 18:00 Pulse Oximetry 94 L 08/26/23 18:30 Oxygen Delivery Method Room Air 08/26/23 17:24 Medical Decision Making MDM Narrative Medical decision making narrative: Patient medicated with IV fluids, Solu-Medrol, breathing treatments. Chest x- ray is unremarkable and labs are stable. Respiratory panel is positive for rhinovirus. Suspect the patient is having reactive airway disease and discussed admission with hospitalist service. She requested CT angio of the chest, this shows hiatal hernia with no other acute abnormalities. Patient with continued cough and congestion, increased work of breathing and we will admit for breathing treatments, steroids overnight. Stable at time of admission. Medical Records Medical records reviewed: Yes I reviewed the patient's medical records Lab Data Lab results reviewed: Yes I reviewed the patient's lab results Labs: Lab Results 08/26/23 08/26/23 Range/Units 17:19 17:20 WBC 8.4 (4.0-11.0) 10^3/uL RBC 4.30 (4.20-5.40) 10^6/uL Hgb 12.0 (12.0-16.0) g/dL Hct 37.5 (36.0-48.0) % MCV 87.2 (81.0-99.0) fL MCH 27.9 (26.7-34.0) pg MCHC 32.0 (29.9-35.2) g/dL RDW 18.7 H (11.0-15.0) % Plt Count 271 (150-450) 10^3/uL MPV 9.4 L (9.5-13.5) fL Neut % (Auto) 69.1 (43.0-75.0) % Lymph % (Auto) 18.2 L (20.5-60.0) % [place] % (Auto) 7.2 (1.7-12.0) % Eos % (Auto) 3.6 (0.9-7.0) % Baso % (Auto) 0.7 (0.2-2.0) % Neut # (Auto) 5.8 (1.4-6.5) 10^3/uL Lymph # (Auto) 1.5 (1.2-3.8) 10^3/uL [place] # (Auto) 0.6 (0.3-0.8) 10^3/uL Eos # (Auto) 0.3 (0.0-0.7) 10^3/uL Baso # (Auto) 0.1 (0.0-0.1) 10^3/uL Abs Immat Gran (auto) 0.10 H (0.00-0.03) 10^3/uL Imm/Tot Granulo (auto) 1.2 H (0.0-0.5) % PT 10.2 (9.0-11.6) sec INR 0.96 VBG pH 7.355 (7.330-7.430) VBG pCO2 47.8 (40.0-52.0) mmHg Sodium 141 (136-145) mmol/L Potassium 4.5 (3.5-5.1) mmol/L Chloride 105 (98-107) mmol/L Carbon Dioxide 27.7 (21.0-32.0) mmol/L Anion Gap 12.8 BUN 29.0 H (7.0-18.0) mg/dL Creatinine 1.40 H (0.55-1.02) mg/dL Est GFR ( Amer) 43 L (>=60) Est GFR (Non-Af Amer) 36 L (>=60) BUN/Creatinine Ratio 20.7 Glucose 109 H (74-106) mg/dL Lactate 1.0 (0.4-2.0) mmol/L Calcium 9.6 (8.5-10.1) mg/dL Total Bilirubin 0.4 (0.2-1.0) mg/dL AST 13 L (15-37) U/L ALT 14 (14-59) U/L Alkaline Phosphatase 143 H (46-116) U/L Troponin I High Sens 10.1 (4.0-51.3) pg/mL NT-Pro-B Natriuret Pep 273.0 (<=1800.0) pg/mL Total Protein 6.9 (6.4-8.2) g/dL Albumin 3.9 (3.4-5.0) g/dL Globulin 3.0 g/dL Albumin/Globulin Ratio 1.3 Adenovirus (PCR) Not detected (NOT DETECTE) C. pneumoniae DNA (PCR) Not detected (NOT DETECTE) Coronavirus Type OC43 Not detected (NOT DETECTE) Coronavirus Type HKU1 Not detected (NOT DETECTE) Coronavirus Type 229E Not detected (NOT DETECTE) Coronavirus Type NL63 Not detected (NOT DETECTE) Human Metapneumovir PCR Not detected (NOT DETECTE) M. pneumoniae (PCR) Not detected (NOT DETECTE) Parainfluenza PCR Not detected (NOT DETECTE) Parainfluenza 2 (PCR) Not detected (NOT DETECTE) Parainfluenza 3 (PCR) Not detected (NOT DETECTE) Parainfluenza 4 (PCR) Not detected (NOT DETECTE) RSV (RT-PCR) Not detected (NOT DETECTE) Entero/Rhino (PCR) Detected A (NOT DETECTE) SARS-CoV-2 (PCR) Not detected (NOT DETECTE) Bordetella pertussis (PCR) Not detected (NOT DETECTE) B parapertussis DNA PCR Not detected (NOT DETECTE) Influenza Type A (PCR) Not detected (NOT DETECTE) Influenza Type B (PCR) Not detected (NOT DETECTE) Imaging Data CT scan - chest: Attestation: I have reviewed the pertinent imaging results. Radiologist's impression: ITS Impressions Chest X-Ray 08/26/23 17:30 IMPRESSION: No acute findings. Electronically authenticated by: KASANDRA WHALEN Date: 08/26/2023 18:30 Chest CTA 08/26/23 18:55 IMPRESSION: No evidence of pulmonary embolus or acute intrathoracic abnormality. Moderate to large hiatal hernia. The whole stomach is noted within the thorax. Electronically authenticated by: LISETTE CORONA Date: 08/26/2023 19:35 ECG Data Attestation: I personally reviewed and interpreted this ECG as follows: (Normal sinus rhythm at a rate of 89, no acute ST elevation or ectopy. EKG reviewed by attending physician) Discharge Plan Discharge Stand Alone Forms: Portal Instructions Chief Complaint: Upper Respiratory Infection Patient Disposition: Admitted as Observation Time of Disposition Decision: 19:46 Prescriptions / Home Meds: No Action amlodipine 5 mg tablet 5 mg PO DAILY atorvastatin 80 mg tablet 80 mg PO DAILY carvedilol 25 mg tablet 25 mg PO Q12H clonidine HCl 0.1 mg tablet 0.1 mg PO Q12H Cequa 0.09 % dropperette 1 drp OPHTHALMIC (EYE) Q12H isosorbide mononitrate 30 mg tablet extended release 24 hr 30 mg PO BID pantoprazole 40 mg tablet,delayed release (DR/EC) 40 mg PO DAILY spironolactone 25 mg tablet 25 mg PO DAILY Brilinta 90 mg tablet 90 mg PO Q12H ferrous sulfate [Feosol] 325 mg (65 mg iron) tablet 325 mg PO DAILY aspirin [Adult Aspirin Regimen] 81 mg tablet,delayed release (DR/EC) 81 mg PO DAILY docusate sodium [Col-Rite] 100 mg capsule 100 mg PO BID PRN (Reason: constipation) ipratropium bromide 21 mcg (0.03 %) spray,non-aerosol 2 spray INTRANASAL TID PRN (Reason: allergy symptoms) ondansetron HCl 4 mg tablet 4 mg PO Q8H PRN (Reason: nausea and vomiting) trazodone 50 mg tablet 50 mg PO DAILY PRN (Reason: insomnia) Print Language: Italian Referrals: Physician,Non-Staff, MD [Primary Care Provider] - 1 week
[2023-08-26] MEDS: ALBUTEROL SULFATE 2.5 MG/3 ML VIAL NEB IH (17:23)
[2023-08-26 17:28] LABS: Adenovirus NOT DETECTED (NOT DETECTE); Bordetella parapertussis NOT DETECTED (NOT DETECTE); Coronavirus 229E NOT DETECTED (NOT DETECTE); Coronavirus HKU1 NOT DETECTED (NOT DETECTE); Coronavirus NL63 NOT DETECTED (NOT DETECTE); Coronavirus OC43 NOT DETECTED (NOT DETECTE); Human Metapneumovirus NOT DETECTED (NOT DETECTE); Influenza A NOT DETECTED (NOT DETECTE); Influenza B NOT DETECTED (NOT DETECTE); Mycoplasma pneumoniae NOT DETECTED (NOT DETECTE); Parainfluenza Virus 1 NOT DETECTED (NOT DETECTE); Parainfluenza Virus 2 NOT DETECTED (NOT DETECTE); Parainfluenza Virus 3 NOT DETECTED (NOT DETECTE); Parainfluenza Virus 4 NOT DETECTED (NOT DETECTE); Respiratory Syncytial Virus NOT DETECTED (NOT DETECTE); SARS-CoV-2 NOT DETECTED (NOT DETECTE)
[2023-08-26 17:29] LABS: PCO2 VBG 47.8 mmHg (40.0-52.0); pH VBG 7.355 (7.330-7.430)
--- NOTE | 2023-08-26 17:30 | XR_ITS ---
[address] [address] Patient Name: MARTHA FERGUSON MRN: [id number] date: 1935 Sex: F Assigned Patient Location: ER Current Patient Location: ED.MAIN Accession/Order Number: [id number] Exam Date: 08/26/2023 17:25 Report Date: 08/26/2023 18:30 At the request of: AB AGUILAR Procedure: XR chest 1V EXAM: XR chest 1V HISTORY: cough COMPARISON: 05/17/2023 TECHNIQUE: Single view of the chest FINDINGS: Large hiatal hernia. Heart size normal. No focal consolidation, pleural effusion, pulmonary congestion or pneumothorax. External leads. XR/XR chest 1V IMPRESSION: No acute findings. Electronically authenticated by: KASANDAR WHALEN Date: 08/26/2023 18:30
[2023-08-26 17:31] LABS: Basophils Absolute Auto 0.1 10^3/uL (0.0-0.1); Basophils Percent Auto 0.7 % (0.2-2.0); Eosinophils Absolute Auto 0.3 10^3/uL (0.0-0.7); Eosinophils Percent Auto 3.6 % (0.9-7.0); Hematocrit 37.5 % (36.0-48.0); Immature Granulocytes Pct Auto 1.2 % (0.0-0.5); Lymphocytes Absolute Auto 1.5 10^3/uL (1.2-3.8); Lymphocytes Percent Auto 18.2 % (20.5-60.0); Mean Corpuscular Hemoglobin 27.9 pg (26.7-34.0); Mean Corpuscular Volume 87.2 fL (81.0-99.0); Mean Platelet Volume 9.4 fL (9.5-13.5); Monocytes Absolute Auto 0.6 10^3/uL (0.3-0.8); Monocytes Percent Auto 7.2 % (1.7-12.0); Neutrophils Absolute Auto 5.8 10^3/uL (1.4-6.5); Neutrophils Percent Auto 69.1 % (43.0-75.0); Platelet Count 271 10^3/uL (150-450); Red Cell Distribution Width 18.7 % (11.0-15.0); White Blood Count 8.4 10^3/uL (4.0-11.0)
[2023-08-26] MEDS: METHYLPREDNISOLONE SOD SUCC PF 125 MG/2 ML VIAL IVP (17:36)
[2023-08-26] MEDS: 0.9 % SODIUM CHLORIDE 1,000 ML 200 ML IV (17:36)
[2023-08-26 17:44] LABS: INR 0.96; Prothrombin Time 10.2 sec (9.0-11.6)
[2023-08-26 17:48] LABS: Alanine Aminotransferase 14 U/L (14-59); Albumin Globulin Ratio 1.3; Albumin Level 3.9 g/dL (3.4-5.0); Alkaline Phosphatase 143 U/L (46-116); Anion Gap 12.8; Aspartate Amino Transferase 13 U/L (15-37); BUN Creatinine Ratio 20.7; Bilirubin Total 0.4 mg/dL (0.2-1.0); Calcium 9.6 mg/dL (8.5-10.1); Carbon Dioxide 27.7 mmol/L (21.0-32.0); Chloride 105 mmol/L (98-107); Estimated GFR (African America 43 (>=60); Estimated GFR (Non-African Ame 36 (>=60); Glucose 109 mg/dL (74-106); Potassium 4.5 mmol/L (3.5-5.1); Sodium 141 mmol/L (136-145); Total Protein 6.9 g/dL (6.4-8.2)
[2023-08-26 17:55] LABS: Troponin I High Sensitivity 10.1 pg/mL (4.0-51.3)
[2023-08-26 18:22] LABS: Human Rhinovirus/Enterovirus DETECTED (NOT DETECTE)
--- NOTE | 2023-08-26 18:55 | CT_ITS ---
The [address] [address] Patient Name: MARTHA FERGUSON MRN: [id number] date: 1935 Sex: F Assigned Patient Location: ER Current Patient Location: Accession/Order Number: [id number] Exam Date: 08/26/2023 18:48 Report Date: 08/26/2023 19:35 At the request of: AB AGUILAR Procedure: CT angio chest EXAM: CT angio chest HISTORY: PE COMPARISON: None. TECHNIQUE: CT chest with intravenous contrast was performed with timing for the evaluation for pulmonary arteries. Multiplanar reformats were performed. MIP (maximum intensity projection) images or 3D post processing was performed. Dose reduction techniques were achieved by using automated exposure control and/or adjustment of mA and/or kV according to patient size and/or use of iterative reconstruction technique. FINDINGS: Lungs: No consolidation, pneumothorax, or effusion. Airways: Normal. Mediastinum: No adenopathy. Aorta: No aneurysm. Cardiac: Normal size. No pericardial effusion. Pulmonary vasculature: Diagnostic opacification of pulmonary arteries without evidence of pulmonary embolus. Normal morphology. Bones: No acute bony abnormality. Axilla: No adenopathy. Thyroid gland: No abnormality demonstrated on provided imaging. Soft tissues: Unremarkable. Upper abdomen: Moderate to large hiatal hernia. The whole stomach is noted within the thorax. Additional findings: None. CT/CT angio chest IMPRESSION: No evidence of pulmonary embolus or acute intrathoracic abnormality. Moderate to large hiatal hernia. The whole stomach is noted within the thorax. Electronically authenticated by: LISETTE CORONA Date: 08/26/2023 19:35
--- OUTSIDE RECORDS SUMMARY | 2023-08-26 20:35 | XMS_ITS | CCD ---
Author Organization [facility] Care Team Providers Care Chain Sales Representative Name Role Phone Doente ROSARIO Primary Care Physician [phone] Marline Gutierrez Unavailable Unavailable Deonte Rosario MD Primary Care Provider JONG BENTON Referring Unavailable ADRIAN RILEY Admitting Unavailable ADRIAN RILEY Attending Unavailable DEONTE ROSARIO Primary Care Unavailable DR DEONTE ROSARIO Primary Care Unavailable DIAB ., HILARY Admitting Unavailable DR JONG TALBERT Consulting Unavailable DIAB ., HILARY Attending Unavailable BENJAMIN ROGERS Consulting Unavailable SERGIO DUQUE Consulting Unavailable WINSOME Landry, HILARY Consulting Unavailable DR DEONTE ROSARIO Consulting Unavailable DR DEONET ROSARIO Primary Care Unavailable DR DEONTE ROSARIO Admitting Unavailable DR DEONTE ROSARIO Attending Unavailable Unavailable Primary Care Provider UnavailELEONORA Shirley Attending Unavailable ELEONORA EASTON Attending Unavailable ELEONORA EASTON Attending Unavailable ELEONORA EASTON Attending Unavailable ELEONORA EASTON Attending Unavailable Deonte ROSARIO Attending Unavailable Wolf Peres Talal Admitting Unavaila ble Luciamini, Wolf Arana Attending Unavaila ble Luciamini, Wolf Talubaldo Referring Unavaila ble Sarmini, Wolf Talal Admitting Unavaila ble LuciaminiWolf Attending Unavaila ble Luciaminmarzena, Wolf Talal Referring Unavaila ble Nikita Conti Attending Unavailable Wolf Peres Attending Unavaila Brunilda Dooley Attending Unavailable MARK Lovelace Attending Naomi geovannailaDeonte Holley Attending Unavailable Deonte ROSARIO Attending Unavailable Deonte ROSARIO Attending Unavailable Deonte ROSARIO Attending Unavailable Deonte ROSARIO Attending Unavailable Deonte ROSARIO Attending Unavailable Allergies Allergy Classification Reported Allergen(s) Allergy Type Date of Onset Reaction(s) Facility (20 sources) Latex; Translations: [Latex] Drug allergy 4 Eruption of skin (disorder), Rash [facility] (20 sources) metaxalone; Translations: [metaxalone] Drug Allergy 3 Dyspnea (finding) [facility] (20 sources) Penicillin; Translations: [penicillin] Drug Allergy Eruption of skin (disorder), Dyspnea (finding) [facility] (20 sources) Shellfish; Translations: [shellfish] Drug allergy [facility] (12 sources) Lisinopril; Translations: [lisinopril] Drug Allergy 3 Angioedema, Angioedema (disorder) [employer] Work Phone: (1 source) Penicillins Propensity to adverse reactions to drug [employer] Phone: (1 source) metaxalone Drug Allergy [facility] (2 sources) Lisinopril Propensity to adverse reactions 3 Angioedema [facility] (2 sources) metaxalone Drug Allergy 2 Shortness of breath, Unknown [facility] (2 sources) Penicillins Drug Allergy 2 Rash, Shortness of breath, Unknown [facility] (2 sources) Iodinated Contrast Media Drug Allergy 4 Unknown [facility] (1 source) Contrast media; Translations: [Contrast Dye] Propensity to adverse reactions (disorder) [facility] (1 source) Povidone-Iodine ; Translations: [Betadine] Drug Allergy [facility] Medications Current Medications Medication Drug Class(es) Dates Sig (Normalized) Sig (Original) Acetaminophen (20 sources) Start: 06-17-2022 acetaminophen (TYLENOL) tablet 650 mg Start: 10-17-2021 take 325 mg by mouth every six hours as needed for pain acetaminophen 325 mg, Oral, q6hr, PRN as needed for pain, Refills(s) 0 Start Date: 10/17/21 Status: Ordered acetaminophen 300 mg / codeine phosphate 15 mg oral tablet (2 sources) Opioid Agonist Start: 06-15-2023 take 1 tablet by mouth every six hours as needed for pain acetaminophen-codeine (Tylenol #2) 300-15 MG tablet TAKE 1 TABLET BY MOUTH EVERY 6 HOURS NEEDED FOR PAIN FOR 5 DAYS 0 06/15/2023 Active amLODIPine 5 mg oral tablet (20 sources) Dihydropyridine Calcium Channel Nelly Start: 01-22-2022 take 1 tablet by mouth once daily amLODIPine 5 mg Tab 5 mg = 1 tab(s), Oral, Daily, # 30 tab(s), Refills(s) 11 Start Date: 01/22/22 Status: Ordered Start: 12-14-2021 take 1 tablet by laurie th once daily amLODIPine 10 mg Tab 10 mg = 1 tab(s), Oral, Daily, # 30 tab(s), Refills(s) 5, Pharmacy: [facility] 1155, 162, cm, 11/30/21 15:06:00 EDT, Height/Length Dosing, 62, kg, 11/30/21 15:06:00 EDT, Weight Dosing Start Date: 12/14/21 Status: Ordered atorvastatin 80 mg oral tablet (20 sources) HMG-CoA Reductase Inhibitor Start: 02-13-2021 take 1 tablet by mouth at bedtime atorvastatin 80 mg Tab 80 mg = 1 tab(s), Oral, Bedtime, # 90 tab(s), Refills(s) 0, Pharmacy: [facility], 157, cm, 11/26/20 10:30:00 EDT, Height/Length Dosing, 68, kg, 11/26/20 10:30:00 EDT, Weight Dosing Start Date: 02/13/21 Status: Ordered carvedilol 25 mg oral tablet (15 sources) alpha-Adrenergic Nelly, beta-Adrenergic Nelly Start: 07-10-2022 take 1 tablet by mouth twice daily carvedilol 25 mg Tab 25 mg = 1 tab(s), Oral, BID, # 180 tab(s), Refills(s) 3, Pharmacy: [facility], 162, cm, 07/08/22 10:29:00 EST, Height/Length Dosing, 62.8, kg, 07/08/22 10:29:00 EST, Weight Dosing Start Date: 07/10/22 Status: Ordered Start: 06-19-2022 take 2 tablets by mo uth twice daily at mealtime carvedilol (COREG) 12.5 MG tablet Take 2 tablets by mouth 2 times daily (with meals) 60 tablet 3 06/19/2022 Active Start: 06-18-2022 carvedilol (CO REG) tablet 12.5 mg Start: 06-17-2022 End: 06-18-2022 carvedilol (COREG) tablet 6. 25 mg cloNIDine hydrochloride 0.1 mg oral tablet (20 sources) Central alpha-2 Adrenergic Agonist Start: 12-24-2019 take 1 tablet by mouth twice daily cloNIDine 0.1 mg tab 0.1 mg, Oral, BID, # 180 tab(s), Refills(s) 3, Pharmacy: [facility], 157, cm, 12/22/19 12:26:00 EDT, Height/Length Dosing, 63.9, kg, 12/22/19 12:26:00 EDT, Weight Dosing Start Date: 12/24/19 Status: Ordered cycloSPORINE 0.9 mg/ml ophthalmic solution (20 sources) Calcineurin Inhibitor Immunosuppressant Start: 11-13-2022 take 1 drop(s) into the eye(s) twice daily Cequa 0.09 % solution Indications: Dry eyes, bilateral INSTILL 1 DROP INTO BOTH EYES TWICE A DAY 60 each 11 11/13/2022 Active Start: 07-08-2022 Cequa 0.09% op hthalmic solution Eye-Both, q12hr, Refill(s) 0, Dry eyes [...] mg docusate sodium 100 mg oral capsule (20 sources) Start: 10-17-2021 take 1 capsule by mouth twice daily as needed for constipation docusate sodium 100 mg Cap 100 mg = 1 cap(s), Oral, BID, PRN for constipation, # 20 cap(s), Refills(s) 0 Start Date: 10/17/21 Status: Ordered 0.3 ml enoxaparin sodium 100 mg/ml prefilled syringe (1 source) Low Molecular Weight Heparin Start: 06-17-2022 enoxaparin Sodium (LOVENOX) injection 30 mg erythromycin 0.005 mg/mg ophthalmic ointment (2 sources) Macrolide, Macrolide Antimicrobial Start: 06-15-2023 erythromycin (Romycin) 5 MG/GM ophthalmic ointment APPLY 1/2 INCH TO AFFECTED EYE(S) 3 TIMES A DAY 0 06/15/2023 Active famotidine (PEPCID) 20 mg in sodium chloride (PF) 0.9 % 10 mL injection (1 source) Start: 06-17-2022 famotidine (PEPCID) 20 mg in sodium chloride (PF) 0.9 % 10 mL injection ferrous sulfate 325 mg delayed release oral tablet (20 sources) Start: 07-03-2021 take 1 tablet by mouth once daily ferrous sulfate 325 mg oral enteric coated tablet 325 mg = 1 tab(s), Oral, Daily, # 30 tab(s), Refills(s) 5, Pharmacy: [facility]5, 157, cm, 07/03/21 16:18:00 EST, Height/Length Dosing, 61.5, kg, 07/03/21 16:18:00 EST, Weight Dosing Start Date: 07/03/21 Status: Ordered ipratropium bromide 0.021 mg/actuat metered dose nasal spray (20 sources) Anticholinergic Start: 04-15-2023 take 2 spray(s) nasal route three times daily as needed ipratropium (Atrovent) 0.03 % nasal spray GIVE 2 SPRAYS IN EACH NOSTRIL 3 TIMES DAILY NEEDED 0 04/15/2023 Active Start: 01-24-2021 Atrovent 0.03% Tye 2 spray(s), Nasal, TID Other (see comment), 1 EA, Refill(s) 1, [facility], 157, cm, 11/26/20 10:30:00 EDT, Height/Length Dosing, 68, kg, 11/26/20 10:30:00 EDT, Weight Dosing Start Date: 01/24/21 Status: Ordered 24 hr isosorbide mononitrate 30 mg extended release oral tablet (20 sources) Nitrate Vasodilator Start: 06-17-2022 take 15 mg by mouth once daily 15 mg, Oral, DAILY, First dose on Fri06/17/22 at 1130, Until Discontinued Start: 11-02-2020 take 1 tablet by laurie th twice daily isosorbide mononitrate 30 mg ER Tab 30 mg = 1 tab(s), Oral, BID, # 60 tab(s), Refills(s) 11, Pharmacy: [facility], 157.5, cm, 07/31/22 13:30:00 EDT, Height/Length Dosing, 61, kg, 07/31/22 13:30:00 EDT, Weight Dosing Start Date: 07/31/22 Status: Ordered Start: 11-02-2020 take 1 tablet by laurie th once daily in the morning isosorbide mononitrate 30 mg ER Tab 30 mg = 1 tab(s), Oral, qAM, # 30 tab(s), Refills(s) 5, Pharmacy: [facility], 162, cm, 10/31/20 13:58:00 EDT, Height/Length Dosing, [...] BID, # 90 tab(s), Refills(s) 0, Pharmacy: [facility], 157, cm, 11/26/20 10:30:00 EDT, Height/Length [...] # 270 tab(s), Refills(s) 3, Pharmacy: [facility], 157, cm, 03/30/20 14:40:00 EST, Height/Length Dosing, 66.2, kg, 03/30/20 14:40:00 EST, Weight Dosing Start Date: 03/30/20 Status: Ordered nitroglycerin 0.4 mg sublingual tablet (19 sources) Nitrate Vasodilator Start: 11-26-2020 nitroglycerin 0.4 [...] Status: Ordered ondansetron 4 mg oral tablet (20 sources) Serotonin-3 Receptor Antagonist Start: 10-17-2021 take [...] pantoprazole 40 mg extended release oral tablet (20 sources) Proton Pump Inhibitor Start: 03-30-2020 take 1 tablet by mouth once daily pantoprazole 40 mg Oral EC Tab 40 mg, Oral, Daily, # 90 tab(s), Refills(s) 3, Pharmacy: [facility], 157, cm, 03/30/20 14:40:00 EST, Height/Length Dosing, 66.2, kg, 03/30/20 14:40:00 EST, Weight Dosing Start Date: 03/30/20 Status: Ordered Start: 03-30-2020 take 1 tablet by laurie th once daily pantoprazole 40 mg Oral EC Tab 40 mg, Oral, Daily, # 90 tab(s), Refills(s) 3, Pharmacy: [facility], 157, cm, 03/30/20 14:40:00 EST, Height/Length Dosing, 66.2, kg, 03/30/20 14:40:00 EST, Weight Dosing Start Date: 03/30/20 Status: Ordered polyethylene glycol 3350 23529 mg powder for oral solution (20 sources) Osmotic Laxative Start: 06-19-2022 polyethylene glycol [...] tablet 0 06/20/2022 06/23/2022 Active Refresh Optive (20 sources) Start: 10-17-2021 take 1 drop(s) into [...] 5-40 mL spironolactone 25 mg oral tablet (20 sources) Aldosterone Antagonist Start: 03-14-2021 take 1 tablet by mouth once daily spironolactone 25 mg Tab 25 mg = 1 tab(s), Oral, Daily, # 30 tab(s), Refills(s) 5, Pharmacy: [facility]5, 157, cm, 03/13/21 13:41:00 EDT, Height/Length Dosing, 61, kg, 03/13/21 13:41:00 EDT, Weight Dosing Start Date: 03/14/21 Status: Ordered ticagrelor 90 mg oral tablet (20 sources) Start: 11-26-2020 take 1 tablet by mouth twice daily ticagrelor 90 mg oral tablet 90 mg = 1 tab(s), Oral, BID, Refills(s) 0, Blood Thinner Start Date: 03/15/22 Status: Ordered valACYclovir 1000 mg oral tablet (4 sources) Herpesvirus Nucleoside Analog DNA Polymerase Inhibitor, Herpes Simplex Virus Nucleoside Analog DNA Polymerase Inhibitor, Herpes Zoster Virus Nucleoside Analog DNA Polymerase Inhibitor Start: 02-07-2023 take 1 tablet by mouth every eight hours valACYclovir (Valtrex) 1 g tablet TAKE ONE TABLET BY MOUTH EVERY 8 HOURS FOR 7 DAYS 0 02/07/2023 Active Start: 02-07-2023 End: 02-14-2023 take 1 tablet by mouth every eight hours valacyclovir 1 g Tab 1 gm = 1 tab(s), Oral, q8hr, X 7 day(s), # 21 tab(s), Refills(s) 0, Pharmacy: [facility]5, 157, cm, 02/07/23 13:05:00 EDT, Height/Length Dosing, 63.7, kg, 02/07/23 13:05:00 EDT, Weight Dosing Start Date: 02/07/23 Stop Date: 02/14/23 Status: Ordered Completed/Discontinued Medications Medication Drug Class(es) Dates Sig (Normalized) Sig (Original) aspirin 81 mg delayed release oral tablet (20 sources) Platelet Aggregation Inhibitor, Nonsteroidal Anti-inflammatory Drug [...] injection (2 sources) Corticosteroid Start: 06-18-2022 End: 02-08-2023 methylPREDNISolone sodium (SOLU-MEDROL) injection 30 mg Start: [...] Discharge) traZODone hydrochloride 50 mg oral tablet (20 sources) Serotonin Reuptake Inhibitor Start: 06-17-2022 take [...] Classification Problem Date Documented Da te Episodic/Chronic Abdominal hernia (4 sources) Diaphragmatic hernia; Translations: [Diaphragmatic hernia without obstruction or gangrene] Onset: 06-25-2023 Episodic Acute cerebrovascular disease (20 sources) Cerebrovascular accident Onset: 11-09-2010 07-23-2013 Chronic Acute myocardial infarction (20 sources) Myocardial infarction; Translations: [Acute ST segment elevation myocardial infarction] 11-26-2020 Chronic Anxiety disorders (20 sources) Anxiety disorder; Translations: [Anxiety disorder, unspecified] Onset: 07-31-2022 07-23-2013 Chronic Asthma (20 sources) Asthma 07-23-2013 Chronic Cardiac arrest and ventricular fibrillation (20 sources) Cardiac arrest 11-26-2020 Chronic Chronic kidney disease (20 sources) Chronic kidney disease stage 3; Translations: [Chronic kidney disease, stage 3 (moderate)] Onset: 10-17-2021 Chronic Comment on above: linked HTN with CKD per OP CDI policy. Chronic obstructive pulmonary disease and bronchiectasis (20 sources) Chronic obstructive lung disease; Translations: [Chronic obstructive pulmonary disease, unspecified] Onset: 10-17-2021 Chronic Congestive heart failure; nonhypertensive (1 source) Heart failure, unspecified; Translations: [HEART FAILURE UNSPECIFIED] Onset: 06-18-2022 Chronic Coronary atherosclerosis and other heart disease (20 sources) Coronary atherosclerosis; Translations: [Atherosclerotic heart disease of [place] coronary artery without angina pectoris] Onset: 01-22-2022 [...] 10-17-2021 Episodic Diseases of white blood cells (7 sources) Leukocytosis; Translations: [Elevated white blood cell count, unspecified] Onset: 03-04-2023 02-08-2023 Chronic Disorders of lipid metabolism (20 sources) Mixed hyperlipidemia; Translations: [Mixed hyperlipidemia] Onset: 10-17-2021 Chronic Esophageal disorders (20 sources) Acid reflux; Translations: [Obstruction of esophagus] Onset: 12-10-2022 04-20-2018 Chronic Essential hypertension (20 sources) Essential hypertension; Translations: [Essential (primary) hypertension] Onset: 10-17-2021 Chronic Genitourinary symptoms and ill-defined conditions (20 sources) Female stress incontinence 07-23-2013 Chronic Genitourinary symptoms and ill-defined conditions (20 sources) Blood in urine 07-23-2013 Episodic Glaucoma (20 sources) Glaucoma; Translations: [Unspecified glaucoma] Onset: 07-31-2022 04-20-2018 Chronic Hypertension with complications and secondary hypertension (2 sources) Hypertensive heart disease with heart failure; Translations: [Chronic kidney disease due to hypertension] Onset: 06-18-2022 Chronic Immunizations and screening for infectious disease (2 sources) Vaccination given; Translations: [Encounter for immunization] Onset: 01-22-2022 Episodic Nonspecific chest pain (6 sources) Chest pain; Translations: [Other chest pain] Onset: 10-17-2021 Episodic Occlusion or stenosis of precerebral arteries (20 sources) Carotid artery stenosis 11-27-2018 Chronic Other aftercare (2 sources) Long-term current use of drug therapy; Translations: [Other intermediate (current) drug therapy] Onset: 07-31-2022 Episodic Other and unspecified benign neoplasm (3 sources) History of polyp of colon 04-15-2023 Episodic Other circulatory disease (20 sources) History of transient ischemic attack; Translations: [Personal history of transient ischemic attack (TIA), and cerebral infarction without residual deficits] Onset: 05-01-2022 04-03-2011 Episodic Other circulatory disease (12 sources) History of cerebrovascular accident 05-01-2022 Episodic Other circulatory disease (1 source) Disorder of respiratory system; Translations: [Other specified symptoms and signs involving the circulatory and respiratory systems] Onset: 12-10-2022 Episodic Other eye disorders (4 sources) Pain in eye; Translations: [Ocular pain, unspecified eye] Onset: 06-25-2023 Episodic Other eye disorders (2 sources) Dystrophy of anterior cornea; 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] 06-25-2023 Episodic Other gastrointestinal disorders (19 sources) Dysphagia; Translations: [Dysphagia, unspecified] Onset: 01-30-2022 Episodic Other gastrointestinal disorders (3 sources) Altered bowel function 04-15-2023 Episodic Other hematologic conditions (10 sources) History of anemia 04-03-2011 Episodic Other hereditary and degenerative nervous system conditions (1 source) Blepharospasm; 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 Other inflammatory condition of skin (20 sources) Intertrigo 06-05-2017 Episodic Other injuries and [...] Onset: 10-17-2021 Episodic Other non-traumatic joint disorders (20 sources) Shoulder pain 05-15-2021 Episodic Other nutritional; endocrine; and metabolic disorders (13 sources) Overweight in adulthood with body mass index of 25 or more but less than 30; Translations: [Body mass index (BMI) 25.0-25.9, adult] Onset: 10-17-2021 Episodic Other nutritional; endocrine; and metabolic disorders (4 sources) Overweight; Translations: [Overweight] Onset: 11-22-2022 Episodic Other skin disorders (7 sources) Lesion of skin of face 07-31-2022 Episodic Other upper respiratory disease (20 sources) 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 Paralysis (20 sources) 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 Residual codes; unclassified (20 sources) Insomnia; Translations: [Insomnia, unspecified] Onset: 05-01-2022 06-05-2017 Episodic Residual codes; unclassified (20 sources) Swelling - edema - symptom 06-05-2017 Episodic Residual codes; unclassified (3 sources) Body mass index 20-24 - normal; Translations: [Body mass index (BMI) 24.0-24.9, adult] Onset: 07-31-2022 Episodic Spondylosis; intervertebral disc disorders; other back problems (20 sources) Neck pain; Translations: [Cervicalgia] Onset: 10-17-2021 Episodic Superficial injury; contusion (2 sources) Injury of eye region; Translations: [Injury of conjunctiva and corneal abrasion without foreign body, right eye, initial encounter] Onset: 06-25-2023 Episodic Unclassified (5 sources) Non-smoker 2020 Unclassified (20 sources) Seborrheic keratosis 03-30-2020 Unclassified (1 source) Body mass index 20-24 - normal 07-31-2022 Unclassified (10 sources) Pain of knee region 07-31-2022 Urinary [...] Onset: 06-18-2022 Episodic Other aftercare (1 source) emt intermediate (current) use of aspirin; Translations: [SNF CURRENT USE OF ASPIRIN] Onset: 06-18-2022 Episodic Other aftercare (1 source) Other intermediate (current) drug therapy; Translations: [OTH WALLPAPER EMBOSSER HELPER CURRENT DRUG THERAPY] Onset: 06-18-2022 Episodic Other [...] sources) blood clots( Confirmed ) 12-04-2009 Unclassified (13 sources) blood clots 12-04-2009 Unclassified (1 source) Patient counseled; Translations: [Encounter for immunization safety counseling] Onset: 04-11-2023 Results Test Name Value Interpretation Reference Range Facil ity Physician Referralon 024 Physician Referral [id number] 30 [id number] Normal [facility] Medicine Office/Clini c Noteon 08-03-2023 Family Medicine Office/Clinic Note Chief Complaint Subsequent Medicare Wellness Visit Review of Systems PHQ Score Initial Depression Screen Score: 0 SCORE Physical Exam Vitals & Measurements T: 36.6 ?C(Oral) HR: 77(Peripheral) BP: 114/72 SpO2: 96% HT: 157.48 cm HT: 62 in WT: 61 kg WT: 134.2 lb BMI: 24.6 Assessment/Plan 1. Annual visit for general adult medical examination without abnormal findings (Z00.00: Encounter for general adult medical examination without abnormal findings) The patient was given a customized and personalized print out of all the current AHRQ USPSTF?s recommendations for preventative services and all current CDC recommended immunizations, relevant risk recommendations and the following patient brochures were given. Reviewed Medicare Prevention Services checklist. CDC-Falls Prevention and home safety screening reviewed. Patient denies any falls in last 12 months, voices no worry about falling. . Self ambulating with walker today. Exhibits no problems with sitting, standing or ambulation. Patient aware with keeping walk way area free of clutter to prevent tripping and/or falling. [place] Advance Directives reviewed. Documents remain at Assisted Living facility where she resides. Encouraged to bring in for scanning into chart. Patient does have some assist with ADL?s and Instrumental ADL?s. She is dependent for transportation, medication management and meals are provided by facility. Unable to complete Clock drawing test as patient is still recovering from a recent eye surgery. Patient alert and orient x3. Immunization record reviewed, discussed Shingrix vaccine and availability. COVID vaccines have been administered, with Boosters received. Allergies and medications reviewed and up to date. No concerns with taking medication as prescribed. Reviewed OTC medications, medication list up to date. Blood tests were reviewed: no labs ordered with today's visit. Patient declines any further Colonoscopies, Dexa scans or Mammogram's. Will follow up as needed with PCP. Reviewed pain symptoms : bilateral arm and neck pain voiced today, no routine pain medications taken. Reviewed all outside providers that patient follows. Last visit summary notes available in chart and/or have been requested. Patient declines any signs or symptoms of depression at this time. 8 minutes spent with screening and documentation. PHQ2 screening score 0. Patient drinks alcohol 1-2 yearly. 8 minutes spent with screening and documentation. Audit score 1. Follow up scheduled with PCP, 09/23/2023. AWV has been scheduled, 08/03/2024. 2. 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 Denies any episodes or SOB. O2 SAT 96% RA with today's visit. Will follow up with PCP as needed. 3. BMI 24.0-24.9, adult (Z68.24: Body mass index [...] and the importance with daily physical activity. 4. On statin therapy (Z79.899: Other termite renewal inspector (current) drug therapy) Encouraged to eat a diet that is low in saturated fats. Stressed importance of maintaining a healthy BMI, as being overweight does produce more lipids. Risks may also increase with a family history of hyperlipidemia. Patient aware, healthy dietary choices may reduce risk factors associated with CVA. Taking Atorvastatin daily, will continue to follow up with labs as directed. 5. Chronic kidney disease (CKD), stage III (moderate) (N18.30: Chronic kidney disease, stage 3 unspecified) Encouraged with avoiding NSAID's and eating a Healthy Kidney diet. Goals to keep blood sugars and blood pressure under better control to reduce cardiovascular risk factors. Medications and blood work monitored with visits. Will continue to follow up with labs per PCP. 6. Hyperglycemia (R73.9: Hyperglycemia, unspecified) Screened for type 2 diabetes. Risk score: 4. Patient denies any family history with Diabetes. BS reviewed, reminded to follow ADA dietary recommendations. Monitor portion control with carbs/fats/sat. fats. Will continue to follow up with labs as needed. 7. Anxiety disorder (F41.9: Anxiety disorder, unspecified) TABBY-7 completed, score 0. No anxiety medications taken at this time. Encouraged to review concerns when to see your PCP: changes with worrying too much and it is interfering with your work, relationships and/or other parts of your life. Your fear, worry or anxiety is upsetting to you and difficult to control. If additional trouble with depression is noticeable contact your provider. 8. Insomnia (G47.00: Insomnia, unspecified) Taking Trazodone as prescribed, states (more content not included)... Normal [facility] Comment on above: Result Comment: Elec tronically Signed By: Bhanu SALCEDO DO, FAAFP\.br\Date and Time Signed: 08/03/23 15:46 EDT\.br\Electronically Co-Signed By: Catherine Saucedo LPN\.br\Date and Time Co-Signed: 08/01/23 14:53 EDT Ambulatory Visit Summaryon 0 08-01-2023 Ambulatory Visit Summary PIEDAD ALATORRE :1935 Visit Date:08/01/2023 Ambulatory Visit Instructions Your Diagnosis Annual visit for general adult medical examination without abnormal findings COPD type B BMI 24.0-24.9, adult On statin therapy Chronic kidney disease (CKD), stage III (moderate) Hyperglycemia Anxiety disorder Insomnia These Are Your Goals B/P will be [...] enteric coated tablet) ipratropium nasal (Atrovent 0.03% Tye) isosorbide mononitrate (isosorbide mononitrate 30 mg ER [...] Stents, bilateral legs. Discharge Vitals Temperature (Oral) 36.6 ?C Heart Rate (Peripheral) 77 Blood Pressure 114/72 Height 157.48 cm Height 62 in Weight 61 kg Weight 134.2 lb BMI 24.6 What to do next Scheduled Follow-Up Appointments Friday 3:00 PM EDT With: PAULO HINOJOSADeonte Where: [facility] Primary Care Normal [address], [place] [address]- \.br\ Medications\.br\ What How Much When Why [...] day\.br\ Unchanged cycloSPORINE ophthalmic (Cequa 0.09% ophthalmic solution) Both eyes Every 12 hours\.br\ Unchanged docusate (docusate sodium 100 mg Cap) 1 Capsules By Mouth 2 times a day as needed for for constipation\.br\ Unchanged ferrous sulfate (ferrous sulfate 325 mg oral enteric coated tablet) 1 Tablets By Mouth Every day Anemia\.br\ Unchanged ipratropium nasal (Atrovent 0.03% Tye) 2 Sprays Nasal Inhalation 3 times a [...] receiving treatment for.\.br\ Anemia\.br\ Anxiety disorder\.br\ Asthma\.br\ Benign hypertension with chronic kidney disease, stage III\.br\ CAD (coronary artery disease)\.br\ Carotid artery stenosis\.br\ Change in bowel habits\.br\ Chronic kidney disease (CKD), stage III (moderate)\.br\ COPD type B\.br\ Dysphagia\.br\ Edema\.br\ Elevated alkaline phosphatase level\.br\ Eye pain\.br\ Female stress incontinence\.br\ History of colon polyps\.br\ History of CVA in adulthood\.br\ HTN - Hypertension\.br\ Hyperglycemia\.br \ Hyperlipidemia\.b r\ Insomnia\.br\ Intertrigo\.br\ Knee pain, right\.br\ Large hiatal hernia\.br\ Leg weakness\.br\ Leukocytosis\.br\ Lumbar radiculopathy\.br \ Neck pain\.br\ Seborrheic keratoses\.br\ Shoulder pain\.br\ Vasomotor rhinitis\.br\ Historical - Any problem that you are no longer receiving treatment for.\.br\ Acid reflux\.br\ Appendectomy\.br\ blood clots\.br\ BMI 25.0-25.9,adult\. br\ Cardiac arrest\.br\ COPD\.br\ Glaucoma\.br\ H/O: TIA\.br\ HEMATURIA\.br\ SC - myocardial infarction\.br\ Stage 3 chronic kidney disease\.br\ STEMI - ST elevation myocardial infarction\.br\ Stroke\.br\ Patient Survey\.br\ You may receive a survey via text or e-mail asking about your office visit. Please share your experience with us by completing your survey. We appreciate your feedback and thank you for choosing us for your care.\.br\ Education Materials\.br\ Chronic Kidney Disease, Adult\.br\ \.br\ Chronic kidney disease (CKD) occurs when the kidneys are slowly and permanently damaged over a long period of time. The kidneys are a pair of organs that do many important jobs in the body, including:\.br\ ? \.br\ Removing waste and extra fluid from the blood to make urine.\.br\ ? \.br\ Making hormones that maintain the amount of fluid in tissues and blood vessels.\.br\ ? \.br\ Maintaining the right amount of fluids and chemicals in the body.\.br\ A small amount of kidney damage may not cause problems, but a large amount of damage may make it hard or impossible for the kidneys to work right. Steps must be taken to slow kidney damage or to stop it from getting worse. If steps are not taken, the kidneys may stop working permanently (end-stage renal disease, or ESRD). Most of the time, CKD does not go away, but it can often be controlled. People who have CKD are usually able to live full lives.\.br\ What are the causes?\.br\ The most common causes of this condition are diabetes and high blood pressure (hypertension).\. br\ Other causes include:\.br\ ? \.br\ Cardiovascular diseases. These affect the heart and blood vessels.\.br\ ? \.br\ Kidney diseases. These include:\.br\ ? \.br\ Glomerulonephriti s, or inflammation of the tiny filters in the kidneys.\.br\ ? \.br\ Interstitial nephritis. This is swelling of the small tubes of the kidneys and of the surrounding structures.\.br\ ? \.br\ Polycystic kidney disease, in which clusters of fluid-filled sacs form within the kidneys.\.br\ ? \.br\ Renal vascular disease. This includes disorders that affect the arteries and veins of the kidneys.\.br\ ? \.br\ Diseases that affect the body's defense system (immune system).\.br\ ? \.br\ A problem with urine flow. This may be caused by:\.br\ ? \.br\ Kidney stones.\.br\ ? \.br\ Cancer.\.br\ ? \.br\ An enlarged prostate, in males.\.br\ ? \.br\ A kidney infection or urinary tract infection (UTI) that keeps coming back.\.br\ ? \.br\ Vasculitis. This is swelling or inflammation of the blood vessels.\.br\ What increases the risk?\.br\ Your chances of having kidney disease increase with age.\.br\ The following factors may make you more likely to develop this condition:\.br\ ? \.br\ A family history of kidney disease or kidney failure. Kidney failure means the kidneys can no longer work right.\.br\ ? \.br\ Certain genetic diseases.\.br\ ? \.br\ Taking medicines often that are damaging to the kidneys.\.br\ ? \.br\ Being around or being in contact with toxic substances.\.br\ ? \.br\ Obesity.\.br\ ? \.br\ A history of tobacco use.\.br\ What are the signs or symptoms?\.br\ Symptoms of this condition include:\.br\ ? \.br\ Feeling very tired (lethargic) and having less energy.\.br\ ? \.br\ Swelling, or edema, of the face, legs, ankles, or feet.\.br\ ? \.br\ Nausea or vomiting, or loss of appetite.\.br\ ? \.br\ Confusion or trouble concentrating.\.b r\ ? \.br\ Muscle twitches and cramps, especially in the legs.\.br\ ? \.br\ Dry, itchy skin.\.br\ ? \.br\ A metallic taste in the mouth.\.br\ ? \.br\ Producing less urine, or producing more urine (especially at night).\.br\ ? \.br\ Shortness of breath.\.br\ ? \.br\ Trouble sleeping.\.br\ CKD may also result in not having enough red blood cells or hemoglobin in the blood (anemia) or having weak bones (bone disease).\.br\ Symptoms develop slowly and may not be obvious until the kidney damage becomes severe. It is possible to have kidney disease for years without having symptoms.\.br\ How is this diagnosed?\.br\ This condition may be diagnosed based on:\.br\ ? \.br\ Blood tests.\.br\ ? \. [facility] Patient Educationon 08-01-19 Patient Education Endocrinology Hyperglycemia Hyperglycemia occurs when the level of sugar (glucose) in the blood is too high. Glucose is a type of sugar that provides the body's main source of energy. Certain hormones (insulin and glucagon) control the level of glucose in the blood. Insulin lowers blood glucose, and glucagon increases blood glucose. Hyperglycemia can result from not having enough insulin in the bloodstream, or from the body not responding normally to insulin. Hyperglycemia occurs most often in people who have diabetes (diabetes mellitus), but it can happen in people who do not have diabetes. It can develop quickly, and it can be life-threatening if it causes you to become severely dehydrated (diabetic ketoacidosis or hyperglycemic hyperosmolar state). Severe hyperglycemia is a medical emergency. For most people with diabetes, a blood glucose level above 240 mg/dL is considered hyperglycemia. What are the causes? If you have diabetes, hyperglycemia may be caused by: ? Medicines that increase blood glucose or affect your diabetes control. ? Getting less physical activity. ? Eating more than planned. ? Being sick or injured, having an infection, or having surgery. ? Stress. ? Not giving yourself enough insulin (if you are taking insulin). If you have undiagnosed diabetes, this may be the reason you have hyperglycemia. If you do not have diabetes, hyperglycemia may be caused by: ? Certain medicines, including: ? Steroid medicines. ? Beta-blockers. ? Epinephrine. ? Thiazide diuretics. ? Stress. ? Having a serious illness, an infection, or surgery. ? Diseases of the pancreas. What increases the risk? Hyperglycemia is more likely to develop in people who have risk factors for diabetes, such as: ? Having a family member with diabetes. ? Certain conditions in which the body's disease-fighting system (immune system) attacks itself (autoimmune disorders). ? Being overweight or obese. ? Having an inactive (sedentary) lifestyle. ? Having been diagnosed with insulin resistance. ? Having a history of prediabetes, gestational diabetes, or polycystic ovarian syndrome (PCOS). What are the signs or symptoms? Hyperglycemia may not cause any symptoms. If you do have symptoms, they may include: ? Increased thirst. ? Needing to urinate more often than usual. ? Hunger. ? Feeling very tired. ? Blurry vision. Other symptoms may develop if hyperglycemia gets worse, such as: ? Dry mouth. ? Abdominal pain. ? Loss of appetite. ? Fruity-smelling breath. ? Weakness. ? Unexpected weight loss. ? Tingling or numbness in the hands or feet. ? Headache. ? Cuts or bruises that are slow to heal. How is this diagnosed? Hyperglycemia is diagnosed with a blood test to measure your blood glucose level. This blood test is usually done while you are having symptoms. Your health care provider may also do a physical exam and review your medical history. You may have more tests to determine the cause of your hyperglycemia, such as: ? A fasting blood glucose (FBG) test. You will not be allowed to eat (you will fast) for at least 8 hours before a blood sample is taken. ? An A1C blood test. This provides information about blood glucose control over the previous 2?3 months. ? An oral glucose tolerance test (OGTT). This measures your blood glucose at two times: ? After fasting. This is your baseline blood glucose level. ? 2 hours after drinking a beverage that contains glucose. How is this treated? Treatment depends on the cause of your hyperglycemia. Treatment may include: ? Taking medicine to regulate your blood glucose levels. If you take insulin or other diabetes medicines, your medicine or dosage may be adjusted. ? Lifestyle changes, such as exercising more, eating healthier foods, or losing weight. ? Treating an illness or infection. ? Checking your blood glucose more often. ? Stopping or reducing steroid medicines. If your hyperglycemia becomes severe and it results in diabetic ketoacidosis or hyperglycemic hyperosmolar state, you must be hospitalized and given IV fluids and IV insulin. Follow these instructions at home: General instructions ? Take nxhm-rro-mteczae and prescription medicines only as told by your health care provider. ? Do not use any products that contain nicotine or tobacco. These products include cigarettes, chewing tobacco, and vaping devices, such as e-cigarettes. If you need help quitting, ask your health care provider. ? If you drink alcohol: ? Limit how much you have to: ? 0?1 drink a day for women who are not . ? 0?2 drinks a day for men. ? Know how much alcohol is in a drink. In the [place] one drink equals one 12 oz bottle of beer (355 mL), one 5 oz glass of wine (148 mL), or one 1? oz glass of hard liquor (44 mL). ? Learn to manage stress. If you need help with this, ask your health care provider. ? Do exercises as told by your health care provider. ? Keep all follow-up v (more content not included)... Normal [facility] Physician Orderon 07-22-2023 Physician Order [id number] 0TIFF Normal [facility] Usp Recordson Usp Records [id number] Normal [facility] ED Note-Physicianon 06-26-19 ED Note-Physician Basic Information Time Seen: Jaime NASCIMENTO, Jelani Reynolds 06/25/2023 09:11 Chief Complaint Pt states i dont know. History of Present Illness 87-year-old female reports to the emergency department with chief complaint of right eye pain. Reports been going on for a month. Was sent over from primary care doctor, Dr. Rosario, to rule out temporal arteritis. States that having pain that feels like is in her eye. Denies any injury or trauma to her eye. States that she has sensitivity to light with this. Reports that she was very painful. Reports it continues to water. Review of Systems A 10 point review of systems is negative except as noted above. Medical and Surgical History: Reviewed and noted Social history: Lives at home Family History: Reviewed. Tobacco: denies Physical Exam Vitals & Measurements T: 36.5 ?C(Oral) HR: 91(Peripheral) RR: 17 BP: 161/81 SpO2: 98% HT: 157 cm WT: 60 kg BMI: 24.34 General: The patient appears well and in no apparent distress. Patient is resting comfortably on bed. afebrile Skin: Warm, dry, no pallor noted. Head: Normocephalic, atraumatic Neck: No JVD Eye: PERRLA, EOMI. Conjunctiva is erythematous. Fluorescein stain revealed a large uptake of the dye across the iris. No dendritic lesions noted. No foreign bodies notified. ENT: Moist mucus membranes Cardiovascular: Regular rate normal peripheral perfusion Respiratory: No respiratory distress no accessory muscle use no obvious audible wheezing Chest Wall: no deformity Musculoskeletal: normal ROM, no deformity, no swelling GI: No obvious distention Neurological: A&O moves all extremities equal strength and symmetry Psychiatric: Cooperative and appropriate Medical Decision Making MEDICAL DECISION MAKING Number and Complexity of Problems Differential Diagnosis: [] [facility] Data External documents reviewed: [] My EKG interpretation: [] My CT interpretation: [] My X-ray interpretation: [] My Ultrasound interpretation: [] Decision rules/scores evaluated: [] Discussed with: [] Treatment and Disposition ED Course: 87-year-old female reports emerged department chief complaint of right eye pain. Reports is been going on for a month now. Was sent over from primary care due to rule out temporal arteritis. On physical exam of the patient, she is resting comfortably in the chair, but does have her right eye closed. Reports sensitivity to light. States that she having pain in the side. Denies any other symptoms. Due to concerns, we did do lab work. Lab work reviewed and noted. no elevation of sed rate or CRP. Do not believe that this is temporal arteritis at this time. Exam of the eye was difficult due to patient unable to open her eye fully because of the pain that she was in. I did give tetracaine, which did somewhat improve her eye, but still complaining of eye pain. Fluorescein stain did reveal a large uptake of the dye across the iris from 9:00 to 3 o'clock position. No dendritic lesions noted. Conjunctiva was also inflamed. Due to this, I did reach out to Dr. Easton with ophthalmology, discussed case with him. He stated that he will see the patient in 1 hour. 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 Shared decision making: [] Code status: [] Assessment/Plan Right corneal abrasion (S05.01XA: Injury of conjunctiva and corneal abrasion without foreign body, right eye, initial encounter) Orders: fluorescein ophthalmic, 1 mg, 1 EA, Test, OPTH, Once, Stop date 06/25/23 9:18:00 EST, STAT, Start date 06/25/23 9:18:00 EST tetracaine ophthalmic, 2 drop(s), Soln-Opth, Eye-Right, Once, Stop date 06/25/23 9:18:00 EST, STAT, Start date 06/25/23 9:18:00 EST Basic Metabolic Panel C-Reactive Protein CBC w/ Auto Diff eGFR Extra Blue Tube Sedimentation Rate Automated Medications Administered Given fluorescein ophthalmic 1 mg test, 1 mg, OPTH tetracaine Opth 0.5% Melba, 2 drop(s), Eye-Right Disposition Plan Patient Discharge Condition stable Discharge Disposition to ophthalmology's office. Discharge Prescription List Prescriptions No active prescription medications Follow-up With When Contact Information Eleonora Easton In 3 days 06/28/[address] [place] [place] [address]- Business (1) Additional Instructions: Immediately go to Dr. Easton's office at 1 PM for your appointment. Deonte PAULO In 3 days [facility] [address], [place] [address]- Business (1) Additional Instructions: Patient Education Corneal Abrasion Attestation Patient seen and evaluated by the physician cancer genetics assistant. Attending physician was present in the emergency department and supervised care. This visit was performed by both the physician and an APC. I performed all aspects of the MDM as documented. This report was transcribed using voice recognition software. Every effor (more content not included)... Normal [facility] Comment on above: Result Comment: Elec tronically Signed By: Jelani Sandoval PA-C\.br\Date and Time Signed: 06/25/23 13:37 EST\.br\Electronically Co-Signed By: Nikita Conti M.D.\.br\Date and Time Co-Signed: 06/26/23 07:48 EST Ambulatory Visit Summaryon 0 06-25-2023 Ambulatory Visit Summary PIEDAD ALATORRE :1935 Visit Date:06/25/2023 Ambulatory Visit Instructions Your Diagnosis Benign hypertension with chronic kidney disease, stage III Chronic kidney disease (CKD), stage III (moderate) COPD type B CAD (coronary artery disease) History of CVA in adulthood Hyperlipidemia Large hiatal hernia Anemia BMI 24.0-24.9, adult Eye pain These Are Your Goals B/P will be [...] enteric coated tablet) ipratropium nasal (Atrovent 0.03% Tye) isosorbide mononitrate (isosorbide mononitrate 30 mg ER [...] Temperature (Oral) 36.4 ?C Heart Rate (Peripheral) 84 Blood Pressure 130/78 Height 157 cm Height 62 in Weight 60 kg Weight 132 lb BMI 24.34 What to do next Scheduled Follow-Up Appointments Friday 1:00 PM EDT Where: [facility] Primary Care Normal [facility] BMPon 06-25-2023 Anion gap [Moles/Vol] 14 mmol/L Normal 6-16 [facility] Comment on above: Performed By: #### 2 969406, 8333650, 22508417, 44813827, 3356255 ####[facility] [address] [place] [address] BUN/Creat Ratio 15 No Units Normal 10-20 [facility] Comment on above: Performed By: #### 2 536303, 3496282, 26814441, 03617023, 4192042 ####[facility] [address] [place] [address] Calcium [Mass/Vol] 10.0 mg/dL Normal 8.9-11.1 [facility] Comment on above: Performed By: #### 2 356607, 9809314, 67356577, 40341842, 2394768 ####[facility] [address] [place] [address] Chloride [Moles/Vol] 107 mmol/L Normal 101-111 [facility] Comment on above: Performed By: #### 2 207530, 1504296, 22379400, 01940894, 8108933 ####[facility] [address] [place] [address] CO2 [Moles/Vol] 24 mmol/L Normal 21-31 [facility] Comment on above: Performed By: #### 2 775825, 4133916, 16653261, 45503103, 3038652 ####[facility] [address] [place] [address] Creatinine [Mass/Vol] 1.4 mg/dL High 0.5-1.3 [facility] Comment on above: Performed By: #### 2 356693, 1706430, 55167405, 74907614, 3272212 ####[facility] [address] [place] [address] Glucose [Mass/Vol] 126 mg/dL Normal 55-199 [facility] Comment on above: Performed By: #### 2 416356, 5256364, 88717943, 51934135, 1961962 ####[facility] [address] [place] [address] Potassium [Moles/Vol] 3.8 mmol/L Normal 3.5-5.3 [facility] Comment on above: Performed By: #### 2 958752, 4879593, 89355151, 43345882, 9638000 ####[facility] [address] [place] [address] Sodium [Moles/Vol] 141 mmol/L Normal 135-145 [facility] Comment on above: Performed By: #### 2 593533, 2986298, 20030743, 39444114, 2332645 ####[facility] [address] [place] [address] Urea nitrogen [Mass/Vol] 21 mg/dL Normal 5-21 [facility] Comment on above: Performed By: #### 2 915804, 6913504, 61875857, 08348602, 3878503 ####[facility] [address] [place] [address] CBC w/ Auto Diffon 4 Basophil Absolute 0.1 E9/L Normal 0.0-0.2 [facility] Comment on above: Performed By: #### 2 925619, 1196666, 14411327, 41859803, 9406135 ####[address] [address] Basophils/100 WBC (Bld) 0.9 % Normal 0.0-2.0 [facility] Comment on above: Performed By: #### 2 357680, 1023194, 52528620, 25426764, 1016763 ####[address] [address] Eos Absolute 0.2 E9/L Normal 0.0-0.5 [facility] Comment on above: Performed By: #### 2 610244, 6752651, 38854506, 67319770, 1333616 ####[address] [address] Eosinophils/100 WBC (Bld) 1.9 % Normal 0.0-8.0 [facility] Comment on above: Performed By: #### 2 527220, 2383599, 84769721, 96193833, 6845359 ####[address] [address] Erythrocyte distribution width (RBC) [Ratio] 16.8 % High 10.9-14.2 [facility] Comment on above: Performed By: #### 2 714551, 9099999, 04383448, 29479036, 5106901 ####[address] [address] Hematocrit (Bld) [Volume fraction] 40.0 % Normal 34.0-46.0 [facility] Comment on above: Performed By: #### 2 860737, 5624859, 25308749, 69424196, 7266873 ####[address] [address] Hemoglobin (Bld) [Mass/Vol] 12.5 g/dL Normal 12.0-16.0 [facility] Comment on above: Performed By: #### 2 614635, 5635160, 54865711, 69640125, 5370415 ####[facility] [address] [place] [address] Lymph Absolute 1.3 E9/L Normal 1.0-4.0 [facility] Comment on above: Performed By: #### 2 725079, 1354913, 64857710, 61808953, 8211022 ####[facility] [address] [place] [address] Lymphocytes/100 WBC (Bld) 12.9 % Low 14.0-50.0 [facility] Comment on above: Performed By: #### 2 701607, 8388768, 96287235, 50273400, 9818738 ####[facility] [address] [place] [address] MCH (RBC) [Entitic mass] 26.4 pg Low 27.0-34.0 [facility] Comment on above: Performed By: #### 2 192695, 2319004, 73670345, 67961046, 4666323 ####[facility] [address] [place] [address] MCHC (RBC) [Mass/Vol] 31.7 g/dL Normal 31.4-36.0 [facility] Comment on above: Performed By: #### 2 256687, 5232263, 22080482, 53500059, 1392928 ####[facility] [address] [place] [address] MCV (RBC) [Entitic vol] 83.3 fL Normal 80.0-100.0 [facility] Comment on above: Performed By: #### 2 583606, 3556487, 33474207, 03362809, 8463018 ####[facility] [address] [place] [address] [place] Absolute 0.6 E9/L Normal 0.2-1.0 [facility] Comment on above: Performed By: #### 2 405315, 6273571, 52657806, 65548161, 0830708 ####[facility] [address] [place] [address] Monocytes/100 WBC (Bld) 6.4 % Normal 4.0-14.0 [facility] Comment on above: Performed By: #### 2 730541, 3237339, 00204779, 95206469, 2137565 ####[facility] [address] [place] [address] Neutro Absolute 7.8 E9/L High 2.0-7.5 [facility] Comment on above: Performed By: #### 2 429163, 9454557, 74214619, 20961444, 0330875 ####[address] [address] Neutro Auto 77.9 % High 36.0-75.0 [facility] Comment on above: Performed By: #### 2 103831, 9483254, 49958270, 72585394, 3061032 ####[facility] [address] [place] [address] Platelet 307.0 E9/L Normal 150.0-500.0 [facility] Comment on above: Performed By: #### 2 395230, 1933280, 29253220, [id number], [id number] ####[facility] [address] [place] [address] Platelet mean volume (Bld) [Entitic vol] 7.5 fL Normal 6.4-10.8 [facility] Comment on above: Performed By: #### 2 [id number], [id number], [id number], [id number], [id number] ####[facility] [address] [place] [address] RBC 4.8 E12/L Normal 4.3-5.9 [facility] Comment on above: Performed By: #### 2 [id number], [id number], [id number], [id number] ####[facility] [address] [place] [address] WBC 10.0 E9/L Normal 4.0-11.0 [facility] Comment on above: Performed By: #### 2 [id number], [id number], [id number], [id number] ####[facility] [address] [place] [address] CHEMISTRYOrdered By: SYSTEM SYSTEM on 06-25-2023 Anion gap [Moles/Vol] 14 mmol/L Normal 6 - 16 mEq/L Remisol Chem Calcium [Mass/Vol] 10.0 mg/dL Normal 8.9 - 11.1 mg/dL Remisol Chem Chloride [Moles/Vol] 107 mmol/L Normal 101 - 111 mmol/L Remisol Chem CO2 [Moles/Vol] 24 mmol/L Normal 21 - 31 mmol/L Remis ol Chem Creatinine [Mass/Vol] 1.4 mg/dL High 0.5 - 1.3 mg/dL Remisol Chem eGFR 36 mL/min/1.73 m2 Low >=59mL/min /1.73 m2 Remisol Chem Glucose [Mass/Vol] 126 mg/dL Normal 55 - 199 mg/dL Re misol Chem Potassium [Moles/Vol] 3.8 mmol/L Normal 3.5 - 5.3 mmol/L Remisol Chem Sodium [Moles/Vol] 141 mmol/L Normal 135 - 145 mmol/L Remisol Chem Urea nitrogen [Mass/Vol] 21 mg/dL Normal 5 - 21 mg/dL Remisol Chem Urea nitrogen/Creatinin e [Mass ratio] 15 mg/mg Normal 10 - 20 Remisol Chem CHEMISTRYOrdered By: Jersey Strong on 06-25-2023 CRP mg/dL Normal <=1.9mg/dL Remisol Chem CRPon 06-25-2023 CRP [Mass/Vol] mg/L Normal <=1.9 [facility] Comment on above: Performed By: #### 2 [id number], [id number], [id number], [id number], [id number] ####[facility] [address] [place] [address] Consent for Treatmenton 06-12 Consent for Treatment [id number] 0TIFF Normal [facility] Discharge Instructionson Discharge Instructions [id number]. 00TIFF Normal [facility] ED Clinical Summaryon 2023 ED Clinical Summary [address] [address] ED Clinical Summary Person Information Name: PIEDAD ALATORRE Lissette/[facility] Age: 87 Years : 1935 Sex: Female Language: Estonian PCP: Deonte ROSARIO MD Marital Status: Visit Id: Visit Reason: Eye pain; SENT BY DR ROSARIO, EYE PAIN Speciality: Acuity: 3 Enc Type: Emergency Med Service: Emergency Arrival: 06/25/2023 09:07:31 Discharge: 06/25/2023 12:27:42 LOS: 000 03:20 Checkin: 06/25/2023 09:07:31 Checkout: 06/25/2023 12:27:42 Dispo Type: Home (Routine DC) EVENTS: Event Name Event Status Request Date/Time Start Date/Time Complete Date/Time Arrive Complete 06/25/2023 09:07:31 06/25/2023 09:07:31 06/25/2023 09:07:31 Document Home Meds Request 06/25/2023 09:07:31 Triage Complete 06/25/2023 09:07:31 06/25/2023 09:16:58 06/25/2023 09:16:58 Dr Exam Complete 06/25/2023 09:11:11 06/25/2023 09:11:11 06/25/2023 09:11:11 Registration Complete 06/25/2023 09:11:11 06/25/2023 09:11:31 06/25/2023 09:19:18 Bed Assign Complete 06/25/2023 09:11:31 06/25/2023 09:11:31 06/25/2023 09:11:31 RN Exam Complete 06/25/2023 09:11:31 06/25/2023 09:46:16 06/25/2023 09:46:16 Dr Exam Complete 06/25/2023 09:13:02 06/25/2023 09:13:02 06/25/2023 09:13:02 Pending Labs Complete 06/25/2023 09:19:13 06/25/2023 11:55:30 Lab Complete 06/25/2023 09:19:13 06/25/2023 11:55:30 Meds Admin Complete 06/25/2023 09:19:13 06/25/2023 09:23:13 Reg Complete Request 06/25/2023 09:19:18 Reg Bed Request Complete 06/25/2023 09:24:05 06/25/2023 09:24:05 06/25/2023 09:24:05 Pending Labs Complete 06/25/2023 09:28:30 06/25/2023 09:28:30 06/25/2023 09:53:10 Lab Complete 06/25/2023 09:28:30 06/25/2023 09:28:30 06/25/2023 09:53:10 Pending Labs Complete 06/25/2023 09:32:44 06/25/2023 09:32:44 06/25/2023 09:32:45 Discharge Complete 06/25/2023 12:04:57 06/25/2023 12:27:51 06/25/2023 12:27:51 Transfer Complete 06/25/2023 12:27:51 06/25/2023 12:27:51 06/25/2023 12:27:51 ADDRESS: [address] [place] [address] [place] [id number] [facility] DOC NOTES: MEDICAL INFORMATION: Prescriptions Given: Medications to Continue with No Changes Other [...] day. Refills: 5. ipratropium nasal (Atrovent 0.03% Tye) 2 Sprays Nasal Inhalation 3 times a [...] once a day (at bedtime). Refills: 5. PATIENT EDUCATION INFORMATION: Instructions: Corneal Abrasion Follow up: With: Address: When: Eleonora Easton [address], [place] [address] [facility] (2) In 3 days 06/28/2023 Comments: Immediately go to Dr. Easton's office at 1 PM for your appointment. With: Address: When: Deonte ROSARIO [facility] [place] [address], [address], [place] [address] Business (1) In 3 days DIAGNOSIS: Right corneal abrasion Normal [facility] ED Patient Education Noteon 06-25-2023 ED Patient Education Note Ophthalmology Corneal Abrasion A corneal abrasion is a scratch or injury to the clear covering over the front of the eye (cornea). Your cornea forms a clear dome that protects your eye and helps to focus your vision. Your cornea is made up of many layers, but the surface layer is one of the most sensitive tissues in your body. A corneal abrasion can be very painful. If a corneal abrasion is not treated, it can become infected and cause an ulcer. This can lead to scarring. A scarred cornea can affect your vision. Sometimes abrasions come back in the same area, even after the original injury has healed. What are the causes? This condition may be caused by: ? A clinical dietitian the eye. ? A gritty or irritating substance (foreign body) in the eye. ? Excessive eye rubbing. ? Very dry eyes. ? Certain eye infections. ? Contact lenses that fit poorly or are worn for a long period of time. You can also injure your cornea when putting contact lenses in your eye or taking them out. ? Eye surgery. ? Certain cornea problems may increase the chance of a corneal abrasion. Sometimes, the cause is not known. What are the signs or symptoms? Symptoms of this condition include: ? Eye pain. The pain may get worse when you open and close your eye or when you move your eye. ? A feeling of something stuck in your eye. ? Tearing, redness, and sensitivity to light. ? Having trouble keeping your eye open, or not being able to keep it open. ? Blurred vision. ? Headache. How is this diagnosed? You may work with a health care provider who specializes in diseases and conditions of the eye (ramp service employee). This condition may be diagnosed based on your medical history, symptoms, and an eye exam. Before the eye exam, numbing drops may be put into your eye. You may also have dye put in your eye with a dropper or a small paper strip. The dye makes the abrasion easy to see when your ramp service employee examines your eye with a light. Your ramp service employee may look at your eye through an eye scope (slit lamp). How is this treated? Treatment may vary depending on the cause of your condition, and it may include: ? Washing out your eye. ? Removing any foreign bodies that are in your eye. ? Using antibiotic drops or ointment to treat or prevent an infection. ? Using a dilating drop to decrease inflammation and pain. ? Using steroid drops or ointment to treat redness, irritation, or inflammation. ? Applying a cold, wet cloth (cold compress) or ice pack to ease the pain. ? Taking pain medicine by mouth (orally). In some cases, an eye patch or bandage soft contact lens might also be used. An eye patch should not be used if the corneal abrasion was related to contact lens wear as it can increase the chance of infection in these eyes. Follow these instructions at home: Medicines ? Use eye drops or ointments as told by your health care provider. ? If you were prescribed antibiotic drops or ointment, use them as told by your health care provider. Do not stop using the antibiotic even if you start to feel better. ? Take mwfs-pak-hhzwkrg and prescription medicines only as told by your health care provider. ? Ask your health care provider if the medicine prescribed to you: ? Requires you to avoid driving or using heavy machinery. ? Can cause constipation. You may need to take these actions to prevent or treat constipation: ? Drink enough fluid to keep your urine pale yellow. ? Take qxem-kvh-cuitjsz or prescription medicines. ? Eat foods that are high in fiber, such as beans, whole grains, and fresh fruits and vegetables. ? Limit foods that are high in fat and processed sugars, such as fried or sweet foods. Eye patch use ? If you have an eye patch, wear it as told by your health care provider. ? Do not drive or use machinery while wearing an eye patch. Your ability to dressage judge distances will be impaired. ? Follow instructions from your health care provider about when to remove the patch. General instructions ? Ask your health care provider whether you can use a cold compress on your eye to relieve pain. ? Do not rub or touch your eye. Do not wash out your eye. ? Do not wear contact lenses until your health care provider says that this is okay. ? Avoid bright light and eye strain. ? Keep all follow-up visits as told by your health care provider. This is important for preventing infection and vision loss. Contact a health care provider if: ? You continue to have eye pain and other symptoms for more than 2 days. ? You have new symptoms, such as worse redness, tearing, or discharge. ? You have discharge that makes your eyelids stick together in the morning. ? Your eye patch becomes so loose that you can blink your eye. ? Symptoms return after the original abrasion has healed. Get help right away if: ? You have severe eye pain that does not get better with medicine. ? You have vision loss. Summary ? A corne (more content not included)... Normal [facility] ED Patient Summaryon 024 ED Patient Summary [address] [address] Patient Discharge Instructions Person Information Name: PIEDAD ALATORRE Age: 87 Years Arrival Date: 06/25/2023 09:07:31 Discharge Diagnosis: Right corneal abrasion Primary Care Physician: Deonte ROSARIO MD Provider Information Primary Provider: Nikita Conti M.D. Advanced Operations Accountant:None The exam and treatment you received in the Emergency Department were for an urgent problem and are not intended as complete care. It is important that you follow up with a doctor, nurse practitioner, or physician?s cancer genetics assistant for ongoing care. If your symptoms become worse or you do not improve as expected and you are unable to reach your usual health care provider, you should return to the Emergency Department. We are available 24 hours a day. PIEDAD ALATORRE has been given the following list of patient education materials, prescriptions and follow-up instructions: Follow-up Instructions: With: Address: When: Eleonora Easton [address], [place] [address] Business (1) In 3 days 06/28/2023 Comments: Immediately go to Dr. Easton's office at 1 PM for your appointment. With: Address: When: Deonte ROSARIO [facility] [place] [address], [address], [place] [address] Business (1) In 3 days In the event that this physician does not participate in your insurance network, please consult with your insurance company to find a nearby participating provider. Patient Education Materials: Corneal Abrasion A MESSAGE TO ALL PATIENTS REGARDING OPIOIDS PRESCRIPTION OPIOIDS: WHAT YOU NEED TO KNOW Prescription opioids can be used to help relieve omzawxrp-vm-vklcoa pain and are often prescribed following a surgery or injury, or for certain health conditions. These medications can be an important part of the treatment but also come with serious risks. It is important to work with your healthcare provider to make sure you are getting the safest, most effective care. WHAT ARE THE RISKS AND SIDE EFFECTS OF OPIOID USE? Prescription opioids carry serious risks of addiction and overdose, especially with prolonged use. An opioid overdose, often marked by slowed breathing, can cause sudden . The use of prescription opioids can have a number of side effects as well, even when taken as directed: ? Tolerance?meaning you might need to take more of the medication for the same pain relief ? Physical dependence?meaning you have symptoms of withdrawal when a medication is stopped ? Increased sensitivity to pain ? Constipation ? Nausea, vomiting, and dry mouth ? Sleepiness and dizziness ? Confusion ? Depression ? Low levels of testosterone that can result in lower sex drive, energy, and strength ? Itching and sweating RISKS ARE GREATER WITH: ? History of drug misuse, substance use disorder, or overdose ? Mental health conditions (such as depression or anxiety) ? Sleep apnea ? Older age (65 years and older) ? Avoid alcohol while taking prescription opioids. Also, unless specifically advised by your health care provider, medications to avoid include: ? Benzodiazepines (such as Xanax or Valium) ? Muscle relaxants (such as Soma or Flexeril) ? Hypnotics (such as Ambien or Lunesta) ? Other prescription opioids KNOW YOUR OPTIONS Talk to your health care provider about ways to manage your pain that don?t involve prescription opioids. Some of these options may actually work better and have fewer risks and side effects. Options may include: ? Pain relievers such as acetaminophen, ibuprofen, and naproxen ? Some medication that are also used for depression or seizures ? Physical therapy and exercise ? Cognitive behavioral therapy, a psychological, goal-directed approach, in which patients learn how to modify physical, behavioral, and emotional triggers of pain and stress. IF YOU ARE PRESCRIBED OPIOIDS FOR PAIN: ? Never take opioids in greater amounts or more often than prescribed. ? Follow up with your primary health care provider. o Work together to create a plan on how to manage your pain. o Talk about ways to help manage your pain that don?t involve prescription opioids. o Talk about any and all concerns and side effects. ? Help prevent misuse and abuse o Never sell or share prescription opioids. o Never use another person?s prescription opioids. ? Store prescription opioids in a secure place and out of reach of others (this may include visitors, children, friends, and family). ? Safely dispose of unused prescription opioids: Find your community drug take-back program or your pharmacy mail-back program, or flush them down the toilet, following guidance from the Food and Drug Administration (www.fda.gov/Drugs/Res ourcesForYou). ? Visit www.cdc.gov/drugoverdo se to learn about the (more content not included)... Normal [facility] Family Medicine Office/Clini c Noteon 06-25-2023 Family Medicine Office/Clinic Note Chief Complaint Patient here for 4 month f/u on htn, chol-- last had labs in March History of Present Illness Here for med follow up but c/o of severe eye pain. She c/o pain in both eyes but her R is worse. She has had it for over a month. She goes to ophthalmology but has not seen them for the pain yet. She has appt in 5 days. She did go to the ED for her eye pain and they gave her some ointment. The pain gets up to a 9/10 Right now it is a 4/10. No jaw pain. She also feels her vision is worse. She has anemia and saw GI but never followed up with them. She has CAD and hx of [place] but has not followed with cardiology as requested. Review of Systems PHQ Score Initial Depression Screen Score: 0 SCORE Physical Exam Vitals & Measurements T: 36.4 ?C(Oral) HR: 84(Peripheral) BP: 130/78 SpO2: 95% HT: 62 in HT: 157 cm WT: 60 kg WT: 132 lb BMI: 24.34 General: Well developed, well nourished, in no acute distress No temporal Artery tenderness Eyes: _Pupils round and reactive, pain with eye movements Ears: not assessed Nose: No deformity, discharge, inflammation, or lesions Mouth: _MMM, no oral lesions noted Neck: _supple, no lymphadenopathy Lungs: Normal respiratory effort and clear to auscultation Cardio: _RRR Abdomen: Soft, non-distended, non-tender Musculoskeletal: _tender to palpate proximal muscles. Extremity: No clubbing, cyanosis or edema. Neurologic: _ambulates with walker, Skin: No suspicious lesions Mental Status: _alert, anxious, occasional moan from pain Assessment/Plan 1. Eye pain (H57.10: Ocular pain, unspecified eye) She is in a lot of pain. I will send her to the ED to get evaluated and get labs done. She gets lost to follow up easily and does not get testing that is ordered so I think ED is best for this situation. Report given to ED here and at her nursing facility. Ordered: C-Reactive Protein Sedimentation Rate Automated 2. Benign hypertension with chronic kidney disease, stage III (I12.9: Hypertensive chronic kidney disease with stage 1 through stage 4 chronic kidney disease, or unspecified chronic kidney disease) stay on amlodipine, carvedilol, spironolactone 3. Chronic kidney disease (CKD), stage III (moderate) (N18.30: Chronic kidney disease, stage 3 unspecified) will have get labs 4. COPD type B (J44.9: Chronic obstructive pulmonary disease, unspecified) 5. CAD (coronary artery disease) (I25.10: Atherosclerotic heart disease of [place] coronary artery without angina pectoris) She needs to follow up with cardiology She has not been there for a year. Ordered: [facility] Internal Ambulatory Referral 6. History of CVA in adulthood (Z86.73: Personal history of transient ischemic attack (TIA), and cerebral infarction without residual deficits) 7. Hyperlipidemia (E78.2: Mixed hyperlipidemia) stay on atorvastatin 8. Large hiatal hernia (K44.9: Diaphragmatic hernia without obstruction or gangrene) GI note reviewed 9. Anemia (D64.9: Anemia, unspecified) repeat labs GI note reviewed may be due to HH. Also CKD 10. BMI 24.0-24.9, adult (Z68.24: Body mass index [BMI] 24.0-24.9, adult) Follow-up With When Contact Information Deonte ROSARIO MD, MED In 1 week [facility] [address], [place] [address]- Additional Instructions: Deonte ROSARIO MD, MED [facility] [address], [place] [address]- Additional Instructions: at regular appt but sooner if needed. Patient Education Carotid Artery Disease Problem List/Past Medical History Ongoing Anemia Anxiety disorder Asthma Benign hypertension with chronic kidney disease, stage III CAD (coronary artery disease) Carotid artery stenosis Change in bowel habits Chronic kidney disease (CKD), stage III (moderate) COPD type B Dysphagia Edema Elevated alkaline phosphatase level Eye pain Female stress incontinence History of colon polyps History of CVA in adulthood HTN - Hypertension Hyperglycemia Hyperlipidemia Insomnia Intertrigo Knee pain, right Large hiatal hernia Leg weakness Leukocytosis Lumbar radiculopathy Neck pain Seborrheic keratoses Shoulder pain Vasomotor rhinitis Historical Acid reflux Appendectomy blood clots BMI 25.0-25.9,adult Cardiac arrest COPD Glaucoma H/O: TIA HEMATURIA [place] - myocardial infarction Stage 3 chronic kidney disease STEMI - ST elevation myocardial infarction Stroke Procedure/Surgical History Colonoscopy (03/18/2022), Colonoscopy (03/18/2022), Radiofrequency ablation of medial branch of cervical nerve using fluoroscopic guidance (08/24/2018), cervical facet Medial Branch Block (05/25/2018), Cervical Facet Medial Branch Block (04/20/2018), lumbar facet medial branch block (11/24/2017), Radiofrequency ablation of medial branch of lumbar nerve using fluoroscopic guidance (09/29/2017), Lumbar Facet Medial Branch Block (09/08/2017), Inject (more content not included)... Normal [facility] Comment on above: Result Comment: Elec tronically Signed By: PAULO HINOJOSA, Deonte Turpin\chirag\Date and Time Signed: 06/25/23 09:05 EST HEMATOLOGYOrdered By: SYSTEM SYSTEM on 06-25-2023 Basophil Absolute 0.1 E9/L Normal 0.0 - 0.2 E9/L Rem isol Heme Basophils/100 WBC (Bld) 0.9 % Normal 0.0 - 2.0 % Remisol Heme Eos Absolute 0.2 E9/L Normal 0.0 - 0.5 E9/L Remisol Heme Eosinophils/100 WBC (Bld) 1.9 % Normal 0.0 - 8.0 % Remisol Heme Erythrocyte distribution width (RBC) [Ratio] 16.8 % High 10.9 - 14.2 % Remisol Heme Hematocrit (Bld) [Volume fraction] 40.0 % Normal 34.0 - 46.0 % Remisol Heme Hemoglobin (Bld) [Mass/Vol] 12.5 g/dL Normal 12.0 - 16.0 gm/dL Remisol Heme Lymph Absolute 1.3 E9/L Normal 1.0 - 4.0 E9/L Remiso l Heme Lymphocytes/100 WBC (Bld) 12.9 % Low 14.0 - 50.0 % Remisol Heme MCH (RBC) [Entitic mass] 26.4 pg Low 27.0 - 34.0 pg Remisol Heme MCHC (RBC) [Mass/Vol] 31.7 g/dL Normal 31.4 - 36.0 gm/dL Remisol Heme MCV (RBC) [Entitic vol] 83.3 fL Normal 80.0 - 100.0 fL Remisol Heme [place] Absolute 0.6 E9/L Normal 0.2 - 1.0 E9/L Remisol Heme Monocytes/100 WBC (Bld) 6.4 % Normal 4.0 - 14.0 % Remisol Heme Neutro Absolute 7.8 E9/L High 2.0 - 7.5 E9/L Remis ol Heme Neutro Auto 77.9 % High 36.0 - 75.0 % Remisol He me Platelet 307.0 E9/L Normal 150.0 - 500.0 E9/L Remisol Heme Platelet mean volume (Bld) [Entitic vol] 7.5 fL Normal 6.4 - 10.8 fL Remisol Heme RBC 4.8 E12/L Normal 4.3 - 5.9 E12/L Remisol H jordon WBC 10.0 E9/L Normal 4.0 - 11.0 E9/L Remisol H jordon HEMATOLOGYOrdered By: Temo Lynn on 06-25-2023 ESR (Bld) [Velocity] 16 mm/h Normal 0 - 34 mm/hr [facility] HemeAutoSS Outside Recordson 06-25-2023 Outside Records [id number]. 00TIFF Normal [facility] Outside Records [id number]. 00TIFF Normal [facility] Outside Records [id number] 0TIFF Normal [facility] Patient Educationon 06-25-19 24 Patient Education Neurology Carotid Artery Disease Carotid artery disease, also called carotid artery stenosis, is the narrowing or blockage of one or both carotid arteries. The carotid arteries are the two main blood vessels on either side of the neck. They supply blood to the brain, other parts of the head, and the neck. Carotid artery disease increases your risk for a stroke or a transient ischemic attack (TIA). A TIA is a mini-stroke that causes stroke-like symptoms that then go away quickly. What are the causes? This condition is mainly caused by a narrowing and hardening of the carotid arteries (atherosclerosis). The carotid arteries can become narrow or clogged with a buildup of fat, cholesterol, calcium, and other substances (plaque). What increases the risk? The following factors may make you more likely to develop this condition: ? Having certain medical conditions, such as: ? High cholesterol. ? High blood pressure (hypertension). ? Diabetes. ? Obesity. ? Smoking. ? A family history of cardiovascular disease. ? Inactivity or lack of regular exercise. ? Being male. Men have an increased risk of developing atherosclerosis earlier in life than women. ? Old age. What are the signs or symptoms? This condition may not have any signs or symptoms until a stroke or TIA occurs. In some cases, your health care provider may be able to hear a whooshing sound (bruit). This can indicate a change in blood flow caused by plaque buildup. An eye exam can also help identify signs of the condition. How is this diagnosed? This condition may be diagnosed with a physical exam, your medical history, and your family's medical history. You may also have tests that look at the blood flow in your carotid arteries, such as: ? Carotid artery ultrasound, which uses sound waves to create pictures to show if the arteries are narrow or blocked. ? Tests that use a dye injected into a vein to highlight your arteries on images, such as: ? Carotid or cerebral angiography, which uses X-rays. ? Computerized tomographic angiography (CTA), which uses CT scans. ? Magnetic resonance angiography (MRA), which uses MRI. How is this treated? This condition may be treated with a combination of treatments. Treatment options include: ? Lifestyle changes, such as: ? Quitting smoking. ? Exercising regularly or as told by your health care provider. ? Eating a heart-healthy diet. ? Managing stress. ? Maintaining a healthy weight. ? Medicines to control blood pressure, cholesterol, and blood clotting. ? Surgery. You may have: ? A carotid endarterectomy. This is a surgery to remove the blockages in the carotid arteries. ? A carotid angioplasty with stenting. This is a procedure in which a small mesh tube (stent) is used to widen the blocked carotid arteries. Follow these instructions at home: Eating and drinking Follow instructions about your diet from your health care provider. It is important to: ? Eat a healthy diet that is low in saturated fats and includes plenty of fresh fruits, vegetables, and lean meats. ? Avoid foods that are high in fat and salt (sodium). ? Avoid foods that are fried, overly processed, or have poor nutritional value. Lifestyle ? Maintain a healthy weight. ? Do exercises as told by your health care provider to stay physically active. It is recommended that each week you get at least 150 minutes of moderate-intensity exercise or 75 minutes of exercise that takes a lot of effort. ? Do not use any products that contain nicotine or tobacco, such as cigarettes, e-cigarettes, and chewing tobacco. If you need help quitting, ask your health care provider. ? Do not drink alcohol if: ? Your health care provider tells you not to drink. ? You [...] oz glass of hard liquor (44 mL). ? Do not use drugs. ? Manage your stress. Ask your health care provider for stress management tips. General instructions ? Take tgwy-irx-utmejlh and prescription medicines only as told by your health care provider. ? Keep all follow-up visits as told by your health care provider. This is important. Where to find more information ? [place] Heart Association: www.heart.org Get help right away if: ? You have any symptoms of a stroke. BE FAST is an easy way to remember the main warning signs of a stroke: ? B - Balance. Signs are dizziness, sudden trouble walking, or loss of balance. ? E - Eyes. Signs are trouble seeing or a sudden change in vision. ? F - Face. Signs are sudden weakness or numbness of the face, or (more content not included)... Normal [facility] Physician Referralon 024 Physician Referral [id number]#1.0 0TIFF Normal [facility] Pre-Arrival Noteon 4 Pre-Arrival Note Pre-Arrival Summary Name: piedad, Current Date: 06/25/2023 09:20:24 EST Gender: Date of : Age: Pre-Arrival Type: EMS ETA: 06/25/2023 09:33:00 EST Primary Care Physician: Presenting Problem: eye pain x1 month Pre-Arrival User: Sondra Dunlap RN Referring Source: Location: DC Completion Date/Time: 06/25/2023 09:03:00 [facility] Emergency Department Pre-Hospital Report Form Vital Signs: Pre-Hospital Report: Treatment in Route: Response to Treatment: Misc. Issues: Normal [facility] Sed Rate Automatedon 024 ESR (Bld) [Velocity] 16 mm/h Normal 0-34 [facility] Comment on above: Performed By: #### 2 [id number], [id number], [id number], [id number], [id number] ####[facility] [address] [place] [address] eGFRon 06-25-2023 eGFR 36 mL/min/1.73 m2 Low >=59 [facility] Comment on above: Order Comment: Order added by Discern Expert. Performed By: #### 2 [id number], [id number], [id number], [id number], [id number] ####[facility] [address] [place] [address] Usp Recordson 05-26 Usp Records [id number]#1.0 0TIFF Normal [facility] Physician Referralon 023 Physician Referral [id number]#1. 00TIFF [facility] Usp Recordson 05-01 Usp Records [id number]#1.0 0TIFF [facility] Usp Recordson 04-29 Usp Records [id number]#1.0 0TIFF Normal [facility] Usp Records [id number]#1.0 0TIFF [facility] ED Note-Physicianon 04-17-20 ED Note-Physician [id number]#1.0 0TIFF [facility] Consent for Procedure/Surger yon 04-16-2023 Consent for Procedure/Surgery [id number]#1.0 0TIFF [facility] Ambulatory Visit Summaryon 1 06-16-2022 Ambulatory Visit Summary SWATISRIRAM PIEDAD Lainez :1935 Visit Date:04/15/2023 Ambulatory Visit Instructions Your [...] Progressing Your Care Team Attending Physician - Brunilda Redding CNP Primary Care Physician - Deonte ROSARIO MD [...] enteric coated tablet) ipratropium nasal (Atrovent 0.03% Tye) isosorbide mononitrate (isosorbide mononitrate 30 mg ER [...] EST With: PAULO HINOJOSA, Deonte Turpin Where: [facility] Primary Care Normal [address], [place] [address]- \.br\ You Need to Schedule the Following [...] alkaline phosphatase level, pp_set_radiology_ subspecialty, Not Required, [facility]\.br\ Medications\.br\ What How Much When Why [...] concerns \.br\ Unchanged ipratropium nasal (Atrovent 0.03% Tye) 2 Sprays Nasal Inhalation 3 times a [...] Cardiac arrest\.br\ COPD\.br\ Glaucoma\.br\ H/O: TIA\.br\ HEMATURIA\.br\ SC - myocardial infarction\.br\ STEMI - ST elevation [...] presents today for a follow up from [facility] ER on 03/26/23. Patient was advised to go to ED for anemia per Dr Rosario. Patient was seen by Dr Peres for office visit 12/10/22 and had EGD 02/10/23. History of Present Illness Patient is a 87-year-old female who presents for further evaluation following ED visit at outside facility?[facility]. Review of outside record from [facility] indicated patient was evaluated 03/26/2023 and had low RBC of 2.92, H&H of 8.4/27.3, elevated BUN of 27, elevated creatinine of 1.46, elevated alkaline phosphatase of 124. Note indicated patient is from half-way per [place] [facility]. Previous labs 03/22/23 revealed low H/H [...] Anemia, unspecified) Review of outside record from [facility] indicated patient was evaluated 03/26/2023 and [...] related to poor prep. Discussed referral to [facility] regarding large HH as large HH [...] or gangrene) Review of outside record from [facility] indicated patient was evaluated 03/26/2023 and had H&H of 8.4/27.3, elevated BUN of 27, elevated creatinine of 1.46, elevated alkaline phosphatase of 124. Review of record indicates patient had previous EGD 02/10/[address] Peres that revealed very large hiatal hernia, mild Schatzki's ring?dilated, lesions in stomach, normal duodenum, no biopsies. Discussed referral to [facility] regarding large HH as large HH [...] vs. r (more content not included)... Normal [facility] Comment on above: Result Comment: Elec tronically Signed By: Miladis BERG, Brunilda Marquez\.br\Date and Time Signed: 04/15/23 14:32 EST Usp Recordson 04-15 Usp Records [id number]#1.0 0TIFF Normal [facility] Patient Educationon 04-15-20 Patient Education Hematology Anemia [...] Follow these instructions at home: ? Take vjnp-vfz-ccuuzzh and prescription medicines only as told by [...] provider. Document Revised: 07/22/2022 Document Reviewed: 07/22/2022 [employer] Patient Education ? 2022 [employer]. [facility] Consent for Immunizationon 1 06-12-2022 Consent for Immunization [id number]#1.0 0TIFF [facility] Nurse Consultation Noteon Nurse Consultation Note Reason [...] mg= 1 tab(s), Oral, Bedtime Atrovent 0.03% Tye, 2 spray(s), Nasal, TID, PRN, 1 refills [...] virus vaccine, inactivated 03/04/2023 Given SARS-CoV-2 (COVID-19) [id number] 02/28/2022 Recorded influenza virus vaccine, inactivated 01/22/2022 [...] vaccine 01/21/2011 Given Other (see comment) Normal [facility] Usp Recordson 04-11 Usp Records [id number]#1.0 0TIFF [facility] Lab Reportson 03-22-2023 Lab Reports [id number]#1.0 0TIFF [facility] Usp Recordson 03-18 Usp Records [id number]#1.0 0TIFF [facility] Ambulatory Visit Summaryon 1 Ambulatory Visit Summary [...] enteric coated tablet) ipratropium nasal (Atrovent 0.03% Tye) isosorbide mononitrate (isosorbide mononitrate 30 mg ER [...] Appointments Friday 9:40 AM EST With: Where: [facility] Primary Care Invalid Interpretation Code [address], [place] [address]- \.br\ Friday 1:00 PM EDT \.br\ With:\.br\ Where: [facility] Primary Care [facility] Consent for Flu Vaccineon Consent for Flu Vaccine [id number]#1.0 0TIFF Normal [facility] Family Medicine Office/Clini c Noteon 03-04-2023 Family Medicine Office/Clinic [...] artery disease) (I25.10: Atherosclerotic heart disease of [place] coronary artery without angina pectoris) Ordered: Body [...] tobacco non-user (more content not included)... Normal [facility] Comment on above: Result Comment: Elec tronically Signed By: PAULO HINOJOSA, Deonte Turpin\.michael\Date and Time Signed: 03/04/23 13:28 EDT Patient Educationon 03-04-20 Patient Education Cardiovascular Hypertension, Adult Hypertension is [...] Keep all follow-up visits. Medicines ? Take joph-dpd-lzmkoor and prescription medicines only as told by [...] ? For m (more content not included)... [facility] Postoperative Documentson Postoperative Documents [id number]#1.0 0TIFF [facility] Auth for Release of Medical Recordson 02-13-2023 Auth for Release of Medical Records [id number]#1. 00CD:127 [facility] Consent for Anesthesiaon Consent for Anesthesia [id number]#1. 00CD:127 [facility] Consent for Procedure/Surger yon 02-13-2023 Consent for Procedure/Surgery [id number]#1. 00CD:127 [facility] Discharge Instructionson Discharge Instructions [id number]#1. 00CD:127 [facility] H&P Updateon 02-13-2023 H&P Update [id number]#1. 00CD:127 [facility] Postoperative Documentson Postoperative Documents [id number]#1. 00TIFF [facility] Preoperative Documentson Preoperative Documents [id number]#1. 00CD:127 [facility] Provider Letteron 02-13-2023 Provider Letter February 13, 2023 PIEDAD ALATORRE [address] [place] [address] [address] [place] [address] : 1935 Dear Piedad Alatorre , We have been trying to reach you with no success. It is important that you return our call regarding your labs upon receiving this letter. Also, at the time of your call, please provide us with your current information. Thank you for your prompt attention to this matter. Sincerely, [address], [place] [address] [facility] Progress Note-Physicianon Progress Note-Physician Patient: PIEDAD ALATORRE Age: 87 years Sex: Female : 1935 Associated Diagnoses: None Author: MD Soria Ahmad F Postoperative Information Postoperative disposition: Postoperative disposition: To PACU. Optimetrix number: Optimetrix number [id number]. Anesthetic utilized: General. Health Status Allergies: Allergic [...] when meets criteria ( To home ). [facility] Comment on above: Result Comment: Elec tronically [...] Current medications: (Selected) Prescriptions Prescribed Atrovent 0.03% Tye: 2 spray(s), Nasal, TID Other (see comment), 1 EA, Refill(s) 1, [facility], 157, cm, 11/26/20 10:30:00 EDT, Height/Length Dosing, 68, kg, 11/26/20 10:30:00 EDT, Weight Dosing amLODIPine 5 mg Tab: 5 mg = 1 tab(s), Oral, Daily, # 30 tab(s), Refills(s) 11 atorvastatin 80 mg Tab: 80 mg = 1 tab(s), Oral, Bedtime, # 90 tab(s), Refills(s) 0, Pharmacy: [facility], 157, cm, 11/26/20 10:30:00 EDT, Height/Length Dosing, 68, kg, 11/26/20 10:30:00 EDT, Weight Dosing carvedilol 25 mg Tab: 25 mg = 1 tab(s), Oral, BID, # 180 tab(s), Refills(s) 3, Pharmacy: [facility], 162, cm, 07/08/22 10:29:00 EST, Height/Length Dosing, 62.8, kg, 07/08/22 10:29:00 EST, Weight Dosing cloNIDine 0.1 mg tab: 0.1 mg, Oral, BID, # 180 tab(s), Refills(s) 3, Pharmacy: [facility], 157, cm, 12/22/19 12:26:00 EDT, Height/Length Dosing, 63.9, kg, 12/22/19 12:26:00 EDT, Weight Dosing ferrous sulfate 325 mg oral enteric coated tablet: 325 mg = 1 tab(s), Oral, Daily, # 30 tab(s), Refills(s) 5, [facility]acy: [facility], 157, cm, 07/03/21 16:18:00 EST, Height/Length Dosing, 61.5, kg, 07/03/21 16:18:00 EST, Weight Dosing isosorbide mononitrate 30 mg ER Tab: 30 mg = 1 tab(s), Oral, BID, # 60 tab(s), Refills(s) 11, [facility]acy: [facility], 157.5, cm, 07/31/22 13:30:00 EDT, Height/Length Dosing, 61, kg, 07/31/22 13:30:00 EDT, Weight Dosing pantoprazole 40 mg Oral EC Tab: 40 mg, Oral, Daily, # 90 tab(s), Refills(s) 3, [facility]acy: [facility], 157, cm, 03/30/20 14:40:00 EST, Height/Length Dosing, 66.2, kg, 03/30/20 14:40:00 EST, Weight Dosing spironolactone 25 mg Tab: 25 mg = 1 tab(s), Oral, Daily, # 30 tab(s), Refills(s) 5, [facility]: [facility], 157, cm, 03/13/21 13:41:00 EDT, Height/Length Dosing, 61, kg, 03/13/21 13:41:00 EDT, Weight Dosing traZODONE 50 mg Tab: 50 mg = 1 tab(s), Oral, Once a day (at bedtime), # 15 tab(s), Refills(s) 5, [facility]acy: [facility], 157, cm, 03/13/21 13:41:00 EDT, Height/Length Dosing, 61, kg, 03/13/21 13:41:00 EDT, Weight Dosing valacyclovir 1 g Tab: 1 gm = 1 tab(s), Oral, q8hr, X 7 day(s), # 21 tab(s), Refills(s) 0, [facility]acy: [facility], 157, cm, 02/07/23 13:05:00 EDT, Height/Length [...] Problems HTN - Hypertension / SNOMED CT 5054074825 / Confirmed Hyperlipidemia / SNOMED CT 75938310 / Confirmed Anxiety disorder / SNOMED CT 883262857 / Confirmed Asthma / SNOMED CT 413813763 / Confirmed Female stress incontinence / SNOMED CT 452684197 / Confirmed Carotid artery stenosis / SNOMED CT 645265097 / Confirmed Lumbar radiculopathy / SNOMED CT 204845723 / Confirmed Intertrigo / SNOMED CT 64115624 / Confirmed Leg weakness / SNOMED CT 268503146 / Confirmed Edema / SNOMED CT 748254046 / Confirmed Hyperglycemia / SNOMED CT 657348638 / Confirmed Insomnia / SNOMED CT 236329425 / Confirmed Stage 3 chronic kidney disease / SNOMED CT 2319320604 / Confirmed Anemia / SNOMED CT 007400310 / Confirmed 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 Normal [facility] Comment on above: Result Comment: Elec tronically Signed By: MD Estella, Mike Recinos\.br\Date and Time Signed: 02/12/23 12:06 EDT Main OR Intraoperative Recor don 02-11-2023 Main OR Intraoperative Record IntraOp Document Type FT Summary Primary Physician: Wolf Peres MD Finalized Date/Time: 02/11/23 11:04:58 Pt. Name: TOMASA ALATORREGely Gregg/Sex: 1935 Female Med Rec #: [id number] Physician: Wolf Peres MD Financial #: [id number] Pt. Type: O Room/Bed: Endo 11/09 Admit/Disch: [...] 2 Entry 3 Case Attendee Carlos TAM, DATABASE PROGRAMMER, [facility] Wolf Wilson MD Role Performed DATABASE PROGRAMMER Scrub - Primary Surgeon - Primary Time In 02/10/23 13:43:00 02/10/23 13:43:00 02/10/23 13:43:00 Time Out 02/10/23 13:56:00 02/10/23 13:56:00 02/10/23 13:56:00 Procedure EGD(.) EGD(.) EGD(.) Comments Dr. Soria is supervising Last Modified By: Tran Ramirez CST, RN, Ana Maria Ashley RN, Ana Maria Martel 02/11/23 11:04:07 02/10/23 13:56:52 02/10/23 13:56:52 Entry 4 Entry 5 Case Attendee Ana Maria Ashley RN, Kirstyn K Role Performed Summer Intern - Primary Staff - Other Time In 02/10/23 13:43:00 02/10/23 13:43:00 Time Out 02/10/23 13:56:00 02/10/23 13:56:00 Procedure EGD(.) EGD(.) Comments Last Modified By: Ana Maria Ashley RN, RN, Kristin N 02/10/23 13:56:52 02/10/23 13:56:52 Perioperative Protocols FT [...] PreOp Antibiotic No Time Out Carlos TAM, DATABASE PROGRAMMER, Juan Francisco Allen Micala E, Sarmini MD, Wolf Arana, Ana Maria Ashely RN, Miles, Kirstyn K Time Out Complete 02/10/23 13:46:00 Outcomes Met? Yes Last Modified By: An aMaria Ashley RN 02/10/23 13:50:47 Post-Care Text: The [...] Met? Yes Schatzki's ring Last Modified By: AnaM aria Ashley RN 02/10/23 13:52:37 Post-Care Text: The patient is free from signs and symptoms of infection Skin Assessment (Pre Procedure) FT Pre-Care Text: Implements protective measures to prevent skin/ tissue injury due to thermal or mechanical sources Evaluates for signs and symptoms of physical injury to skin and tissue Entry 1 Skin Integrity Intact, [place], Warm, and Skin Abnormality No Dry Outcomes [...] Uncrossed? Yes (more content not included)... Normal [facility] Consent for Treatmenton Consent for Treatment [id number]#1.0 0CD:127 Normal [facility] Endoscopic Procedure Report - Otheron 02-10-2023 Endoscopic [...] stomach 3. Normal duodenum. Images Procedure images: Rec_hd_video__ _58_11_025.jpg Rec_hd_video__57_17_509.jpg Rec1_hd_video__56_56_149.jpg Rec_hd_video__56_36_078.jpg Rec_hd_video__56_12_771.jpg Rec_hd_video__55_20_305.jpg Rec_hd_video__54_56_747.jpg Rec1_hd_video_2022__ _54_33_422.jpg Rec1_hd_video__ _54_26_538.jpg Rec1_hd_video__53_11_943.jpg . Post-Procedure Complications: none. Estimated blood loss: [...] need to refer to thoracic surgery. Normal [facility] Comment on above: Result Comment: Elec tronically Signed By: Larisa HINOJOSA, Wolf Arana\.br\Date and Time Signed: 02/10/23 14:00 EDT Other Comment: Lili townsend Attachment - attachment storage system not supported [id number] Can be viewed in source systemMissing Attachment - attachment storage system not supported [id number] Can be viewed in source systemMissing Attachment - attachment storage system not supported [id number] Can be viewed in source systemMissing Attachment - attachment storage system not supported [id number] Can be viewed in source systemMissing Attachment - attachment storage system not supported [id number] Can be viewed in source systemMissing Attachment - attachment storage system not supported [id number] Can be viewed in source systemMissing Attachment - attachment storage system not supported 0013138 Can be viewed in source systemMissing Attachment - attachment storage system not supported 5807037 Can be viewed in source systemMissing Attachment - attachment storage system not supported [id number] Can be viewed in source systemMissing Attachment - attachment storage system not supported [id number] Can be viewed in source system Inpatient Patient Summaryon 02-10-2023 Inpatient Patient Summary [address] [address] [facility] Clinical Discharge Instructions PERSON INFORMATION Name: PIEDAD ALATORRE [facility]#:[id number] PHYSICIANS Admitting Physician: Larisa HINOJOSA, Wolf Arana Attending Physician: Larisa HINOJOSA, Wolf Arana PCP: Deonte ROSARIO MD Discharge Diagnosis: Dysphagia Comment: PATIENT EDUCATION INFORMATION Instructions: Esophageal Dilatation; Upper Endoscopy, Adult, Care After Medication Leaflets: Follow up: With: Address: When: Wolf Peres [address] [place] [address], [address], [address] [address] [phone] Business (1) Comments: Call for any problems. Type Location Start Finish State FM Open [facility] 03/04/2023 1:20 PM 03/04/2023 1:40 PM Confirmed FM Nurse Visit [facility] 04/11/2023 9:40 AM 04/11/2023 10:00 AM Confirmed FM Medicare Wellness Subsequent [facility] 08/01/2023 1:00 PM 08/01/2023 2:00 PM [...] day. Refills: 5. ipratropium nasal (Atrovent 0.03% Tye) 2 Sprays Nasal Inhalation 3 times a [...] for 7 Days. Refills: 0. Comment: Laila [facility] Main OR PACU I Recordon Main OR PACU I Record PACU Phase I Document Type FT Summary Primary Physician: Wolf Peres MD Finalized Date/Time: 02/10/23 15:00:12 Pt. Name: PIEDAD ALATORRE/Sex: 1935 Female Med Rec #: [id number] Physician: Wolf Peres MD Financial #: [id number] Pt. Type: O Room/Bed: [facility] 11/09 Admit/Disch: 02/10/23 12:34:27 - Institution: Case [...] to medications Entry 1 In PACU I 02/10/23 13:59:00 Discharge from PACU 02/10/23 14:35:00 I [...] 02/10/23 15:00 Suellen Triplett RN 02/10/23 15:00 [facility] Main OR Preoperative Recordo n 02-10-2023 Main OR Preoperative Record Holding Area Document Type FT Summary Primary Physician: Wolf Peres MD Finalized Date/Time: 02/10/23 12:52:27 Pt. Name: PIEDAD ALATORRE /Sex: 1935 Female Med Rec #: [id number] Physician: Wolf Peres MD Financial #: [id number] Pt. Type: O Room/Bed: Endo OP 11/09 [...] Patient states Yes Comment - Adult [facility] postop adult Supervision supervision available Case Cancelled in No Holding Area see comments below for reason Last Modified By: Shady Luque RN 02/10/23 12:52:26 Finalized By: Shady Luque RN Document Signatures Signed By: Shady Luque RN 02/10/23 12:52 Normal [facility] Monitor Recordon 02-10-2023 Monitor Record [id number]. 00CD:127 Normal [facility] Outpatient Surgery Discharge Instructionon 02-10-2023 Outpatient Surgery Discharge Instruction [address] [address] Patient Discharge Instructions PERSON INFORMATION Name: PIEDAD ALATORRE Date of : 1935 Current Date: 02/10/2023 14:24:10 PHYSICIANS Admitting Physician: Larisa HINOJOSA, Wolf Arana Discharge Diagnosis: Dysphagia PIEDAD ALATORRE has been given the following list of [...] THE NEAREST EMERGENCY ROOM OR CALL 911 I PIEDAD ALATORRE, have received the attached patient education materials/instructions and have verbalized understanding: May we do a follow up call? Yes No I was present when discharge instructions were given Patient Signature Date Clinican/Nurse Signature ___ Date Follow up: With: Address: When: Wolf Peres [address] [place] [address], [place] [address], [address] [address] [phone] Business (1) Comments: Call for any problems. Type Location Start Finish State FM Open [facility] 03/04/2023 1:20 PM 03/04/2023 1:40 PM Confirmed FM Nurse Visit [facility] 04/11/2023 9:40 AM 04/11/2023 10:00 AM Confirmed FM Medicare Wellness Subsequent [facility] 08/01/2023 1:00 PM 08/01/2023 2:00 PM Confirmed Pharmacy Information: [facility] You may receive a survey from [employer] asking you to rate your care experience. Your feedback is important and will help us understand what we do well and how we can improve the quality of care we provide to you, your loved ones and our community. It?s an honor to serve you. Thank you for choosing [facility] HERE ARE THE MEDICATION CHANGES THAT OCCURRED [...] day. Refills: 5. ipratropium nasal (Atrovent 0.03% Tye) 2 Sprays Nasal Inhalation 3 times a [...] some c (more content not included)... Normal [facility] Patient Education - Texton 1 Patient Education [...] including vitamins, herbs, eye drops, creams, and jjcy-xad-yainuyg medicines. ? Any problems you or family [...] tells you to take them. ? Taking emwz-inu-lvormes medicines, vitamins, herbs, and supplements. ? Follow [...] Follow these instructions at home: ? Take bdvo-lsg-traullk and prescription medicines only as told by [...] be spray (more content not included)... Normal [facility] Lab Reportson 02-08-2023 Lab Reports [id number] 0CD:127 Normal [facility] Ambulatory Visit Summaryon 0 02-07-2023 Ambulatory Visit [...] enteric coated tablet) ipratropium nasal (Atrovent 0.03% Tye) isosorbide mononitrate (isosorbide mononitrate 30 mg ER [...] Appointments Friday 1:30 PM EDT With: Where: [facility] Friday 1:20 PM EDT With: PAULO HINOJOSA, Deonte Turpin Where: [facility] Primary Care Normal [address], [place] [address]- \.br\ Medications\.br\ What How Much When Why Instructions\.br\ New valacyclovir (valacyclovir 1 g Tab) 1 Tablets By Mouth Every 8 hours Shingles rash Duration: 7 Days Pickup at [facility]\.br\ Unchanged acetaminophen 325 Milligram By [...] concerns \.br\ Unchanged ipratropium nasal (Atrovent 0.03% Tye) 2 Sprays Nasal Inhalation 3 times a [...] Pharmacy Information\.br\ [facility]: [address] [facility] [place], [place] [phone]\.br\ Allergies\.br\ lisinopril (Angioedema)\.br\ Latex (Rash)\.br\ Skelaxin (SOB [...] Cardiac arrest\.br\ COPD\.br\ Glaucoma\.br\ H/O: TIA\.br\ HEMATURIA\.br\ SC - myocardial infarction\.br\ STEMI - ST elevation myocardial infarction\.br\ Stroke\.br\ \.br\ [facility] Family Medicine Office/Clini c Noteon 02-07-2023 Family [...] Mouth: mucous membranes pink, moist and intact. [place] posterior oropharynx, no palatal inflammation, uvula midline, [...] Information Elvi Millan Only if needed [address] [facility], [place] [address]- Additional Instructions: Patient Education Neuropathic Pain Shingles Problem List/Past Medical History Ongoing Anemia Anxiety disorder Asthma BMI 25.0-25.9,adult CAD (coronary artery disease) Carotid osei (more content not included)... Normal [facility] Comment on above: Result Comment: Elec tronically [...] a specialist, such as an eye doctor (ramp service employee) or an ear, nose, and throat (ENT) doctor (thread drawer ) to help you avoid eye problems, chronic pain, or disability. Follow these instructions at home: Medicines ? Take scet-ocz-niadisf and prescription medicines only as told by [...] your health care provider. This is an vlrw-qzl-ntvcjzl lotion that helps to relieve itchiness. Blister and rash care ? Keep your rash covered with a loose bandage (dressing). Wear loose-fitting clothing to help ease the pain of material rubbing against the rash. ? Wash your hands with soap and water for at least 20 seconds before and after you change your dressing. If soap and water are not available, use hand biomass power plant superintendent. ? Change your dressing as told by [...] and water are not available, use hand biomass power plant superintendent. Doing this lowers your chance of getting [...] Getting vaccinat (more content not included)... Normal [facility] Main OR Preoperative Recordo n 01-22-2023 Main OR Preoperative Record Holding Area Document Type FT Summary Primary Physician: Wolf Peres MD Finalized Date/Time: 01/22/23 11:03:23 Pt. Name: PIEDAD ALATORREO.B./Sex: 1935 Female Med Rec #: [id number] Physician: Larisa HINOJOSA, Wolf Arana Financial #: [id number] Pt. Type: O Room/Bed: Endo 10/10 Admit/Disch: [...] Adult Magdaleno- transport from postop adult Supervision half-way supervision available Case Cancelled in Yes Case Cancelled didnt hold blood thinner Holding Area see Comment comments below for reason Last Modified By: Ana Maria Ashley RN 01/22/23 11:03:21 Finalized By: Ana Maria Ashley RN Document Signatures Signed By: Ana Maria Ashley RN 01/15/23 11:56 Ana Maria Ashley RN 01/22/23 11:03 Normal [facility] Consent for Procedure/Surger yon 01-20-2023 Consent for Procedure/Surgery [id number]. 00CD:127 Normal [facility] Consent for Treatmenton Consent for Treatment [id number] 0CD:127 Normal [facility] Progress Note-Physicianon Progress Note-Physician Patient: PIEDAD [...] = 1 tab(s), Oral, Bedtime Atrovent 0.03% Tye 2 spray(s), PRN, Nasal, TID carvedilol 25 [...] Problems HTN - Hypertension / SNOMED CT 2130731493 / Confirmed Hyperlipidemia / SNOMED CT 78452167 / Confirmed Anxiety disorder / SNOMED CT 274582588 / Confirmed Asthma / SNOMED CT 420595709 / Confirmed Female stress incontinence / SNOMED CT 668458946 / Confirmed Carotid artery stenosis / SNOMED CT 560739422 / Confirmed Lumbar radiculopathy / SNOMED CT 101141195 / Confirmed Intertrigo / SNOMED CT 06408962 / Confirmed Leg weakness / SNOMED CT 911921220 / Confirmed Edema / SNOMED CT 155192421 / Confirmed Hyperglycemia / SNOMED CT 525884633 / Confirmed Insomnia / SNOMED CT 192032453 / Confirmed Stage 3 chronic kidney disease / SNOMED CT 9802348277 / Confirmed Anemia / SNOMED CT 467800511 / Confirmed 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 keratoses / SNOMED CT 5976863504 / Confirmed Shoulder pain / SNOMED CT 18067139 / Confirmed 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 Neck pain / SNOMED CT 641967691 / Confirmed CAD (coronary artery disease) / SNOMED CT 02610325 / Confirmed Elevated alkaline phosphatase level / SNOMED CT 314118935 / Confirmed Dysphagia / SNOMED CT 70837736 / Confirmed History of CVA in adulthood / SNOMED CT 2399333627 / Confirmed Knee pain, right / SNOMED CT 5871957698 / Confirmed Skin lesion of face / SNOMED CT 8538031345 / Confirmed Resolved: blood clots Resolved: COPD / SNOMED CT 26381293 Resolved: Stroke / ICD-9-CM 436 Resolved: Appendectomy / ICD-9-CM 47.0 Resolved: H/O: TIA / SNOMED CT 764927115 Resolved: HEMATURIA / ICD-9-CM 599.7 Resolved: Acid reflux / SNOMED CT 3389716726 Resolved: Glaucoma / SNOMED CT 89271139 Resolved: SC - myocardial infarction / SNOMED CT 9977697570 Resolved: STEMI - ST elevation myocardial infarction / SNOMED CT 4091959861 Resolved: Cardiac arrest / SNOMED CT 3923520986 Canceled: H/O: anemia / SNOMED CT 3076778580 Canceled: Renal insufficiency syndrome NOS / ICD-9-CM 586 Canceled: Lymphoma / SNOMED CT 16673355 Canceled: TIA (transient ischemic attack) / SNOMED CT 426368891 Canceled: CVA (cerebral vascular accident) / SNOMED CT 366884569 Canceled: Osteoarthrosis / SNOMED CT 4789477315 Canceled: Alkaline phosphatase elevation / SNOMED CT 577984988 Canceled: Loose stools / SNOMED CT 2569654117 Canceled: COPD type B / SNOMED CT 371615273 Canceled: Acute UTI / SNOMED CT 6526509055 Canceled: History of CVA in adulthood / SNOMED CT 6469546084 Canceled: Overweight with body mass index (BMI) of 26 to 26.9 in adult / SNOMED CT 5017684725 Canceled: Non-smoker / SNOMED CT 50945269 Canceled: Patient had no falls in past year / SNOMED CT 3138858937 Canceled: Leg pain / SNOMED C (more content not included)... Normal [facility] Comment on above: Result Comment: Elec tronically Signed By: Gerard HINOJOSA, Artem Roque.br\Date and Time Signed: 01/15/23 12:04 EDT Consent for Procedure/Surger yon 12-18-2022 Consent for Procedure/Surgery [id number]#1.0 0CD:127 Normal [facility] Ambulatory Visit Summaryon 0 12-10-2022 Ambulatory Visit [...] enteric coated tablet) ipratropium nasal (Atrovent 0.03% Tye) isosorbide mononitrate (isosorbide mononitrate 30 mg ER [...] EDT With: PAULO HINOJOSA, Deonte Turpin Where: [facility] Primary Care Normal [address], [place] [address]- \.br\ Medications\.br\ What How Much When Why [...] day Anemia\.br\ Unchanged ipratropium nasal (Atrovent 0.03% Tye) 2 Sprays Nasal Inhalation 3 times a [...] Cardiac arrest\.br\ COPD\.br\ Glaucoma\.br\ H/O: TIA\.br\ HEMATURIA\.br\ SC - myocardial infarction\.br\ STEMI - ST elevation myocardial infarction\.br\ Stroke\.br\ \.br\ [facility] Gastroenterology Office/Clin ic Noteon 12-10-2022 Gastroenterology Office/Clinic Note Chief Complaint dysphagia and GERD HPI Staff Patient is a(n) 87 year old female who presents today for a(n) 10 month follow up for dysphagia & GERD. Takes Pantoprazole daily. Currently resides at [facility] - requests medication requests be sent [...] Cardiac arrest COPD Glaucoma H/O: TIA HEMATURIA SC - myocardial infarction STEMI - ST elevation [...] Stents, bilateral (more content not included)... Normal [facility] Comment on above: Result Comment: Elec tronically Signed By: Larisa HINOJOSA, Wolf Arana\.br\Date and Time Signed: 12/10/22 10:36 EDT [facility] Recordson 11-26 [facility] [id number] 0CD:127 Normal [facility] Family Medicine Office/Clini c Noteon 11-22-2022 Family Medicine Office/Clinic Note Chief Complaint Patient here for 3 month f/u on htn, chol, thyroid--had labs done in September at [place]. History of Present Illness Here for med [...] artery disease) (I25.10: Atherosclerotic heart disease of [place] coronary artery without angina pectoris) stable keep [...] unspecified) will refer back to GI Ordered: [facility] Internal Ambulatory Referral Follow-up With When Contact Information PAULO HINOJOSA, ROCKY Diaz In 3 months [facility] [address] [facility], [place] [address]- Additional Instructions: Patient Education Hypertension, Adult, Uixi-cz-Fmix Problem List/Past Medical History Ongoing Anemia Anxiety [...] Cardiac arrest COPD Glaucoma H/O: TIA HEMATURIA SC - myocardial infarction STEMI - ST elevation [...] Cath. (05/12/1994), Angioplasty of left leg artery, Alvin (more content not included)... Normal [facility] Comment on above: Result Comment: Elec tronically Signed By: PAULO HINOJOSA, Deonte Wilkinson.michael\Date and Time Signed: 11/22/22 14:14 EDT Lab Reportson 11-22-2022 Lab Reports [id number] 0CD:127 Normal [facility] Patient Educationon 11-23-19 Patient Education Cardiovascular Hypertension, [...] Keep all follow-up visits. Medicines ? Take tuev-uax-xygxeuv and prescription medicines only as told by [...] For m (more content not included)... Normal [facility] Recordson 10-23 [facility] [id number] 0CD:127 Normal [facility] PT - Progress Noteson 2022 PT - Progress Notes [id number]#1.0 0CD:127 Normal [facility] Physician Orderon 09-26-2022 Physician Order [id number]#1.0 0CD:127 [facility] CBC AUTO DIFFon 09-20-2022 BASO # 0.1 103/ul Normal 0.0-0.1 [facility] Comment on above: Performed By: #### C BC #### [facility] [address] [place], [place] [address] Dr. Carla Little Basophils/100 WBC (Bld) 0.9 % Normal 0.2-2.0 [facility] Comment on above: Performed By: #### C BC #### [facility] [address] [place] [address] Dr. Carla Little EO # 0.4 103/ul Normal 0.0-0.7 [facility] Comment on above: Performed By: #### C BC #### [facility] [address] [place] [address] Dr. Carla Little Eosinophils/100 WBC (Bld) 5.0 % Normal 0.9-7.0 [facility] Comment on above: Performed By: #### C BC #### [facility] [address] [place] [address] Dr. Carla Little Erythrocyte distribution width (RBC) [Ratio] 14.1 % Normal 11.0-15.0 [facility] Comment on above: Performed By: #### C BC #### [facility] [address] [place] [address] Dr. Carla Little Hematocrit (Bld) [Volume fraction] 34.5 % Critically low 36.0-48.0 [facility] Comment on above: Performed By: #### C BC #### [facility] [address] [place] [address] Dr. Carla Little Hemoglobin (Bld) [Mass/Vol] 10.6 g/dL Critically low 12.0-16.0 [facility] Comment on above: Performed By: #### C BC #### [facility] [address] [place] [address] Dr. Carla Little IG # 0.03 10e3/ul Normal 0.00-0.03 [facility] Comment on above: Performed By: #### C BC #### [facility] [address] [place] [address] Dr. Carla Little IG % 0.4 % Normal 0.0-0.5 [facility] Comment on above: Performed By: #### C BC #### [facility] [address] [place] [address] Dr. Carla Little LYMPH # 1.5 103/ul Normal 1.2-3.8 [facility] Comment on above: Performed By: #### C BC #### [facility] [address] [place] [address] Dr. Carla Little Lymphocytes/100 WBC (Bld) 20.9 % Normal 20.5-60.0 [facility] Comment on above: Performed By: #### C BC #### [facility] [address] [place] [address] Dr. Carla Little MANUAL DIFF REQ NO Normal [facility] Comment on above: Performed By: #### C BC #### [facility] [address] [place] [address] Dr. Carla Little MCH (RBC) [Entitic mass] 28.7 pg Normal 26.7-34.0 [facility] Comment on above: Performed By: #### C BC #### [facility] [address] [place] [address] Dr. Carla Little MCHC (RBC) [Mass/Vol] 30.7 g/dL Normal 29.9-35.2 [facility] Comment on above: Performed By: #### C BC #### [facility] [address] [place] [address] Dr. Carla Little MCV (RBC) [Entitic vol] 93.5 fL Normal 81.0-99.0 [facility] Comment on above: Performed By: #### C BC #### [facility] [address] [place] [address] Dr. Carla Little MONO # 0.6 103/ul Normal 0.3-0.8 [facility] Comment on above: Performed By: #### C BC #### [facility] [address] [place] [address] Dr. Carla Little Monocytes/100 WBC (Bld) 9.1 % Normal 1.7-12.0 [facility] Comment on above: Performed By: #### C BC #### [facility] [address] [place] [address] Dr. Carla Little NEUT # 4.5 103/ul Normal 1.4-6.5 [facility] Comment on above: Performed By: #### C BC #### [facility] [address] [place] [address] Dr. Carla Little Neutrophils/100 WBC (Bld) 63.7 % Normal 43.0-75.0 [facility] Comment on above: Performed By: #### C BC #### [facility] [address] [place] [address] [address] Carla Little Platelet mean volume (Bld) [Entitic vol] 9.8 fL Normal 9.5-13.5 [facility] Comment on above: Performed By: #### C BC #### [facility] [address] [place] [address] [address] Carla Little PLT 222 103/ul Normal 150-450 [facility] Comment on above: Performed By: #### C BC #### [facility] [address] [place] [address] Dr. Carla Little RBC 3.69 106/ul Critically low 4.20-5.40 [facility] Comment on above: Performed By: #### C BC #### [facility] [address] [place] [address] Dr. Carla Little WBC 7.0 103/ul Normal 4.0-11.0 [facility] Comment on above: Performed By: #### C BC #### [facility] [address] [place] [address] Dr. Carla Little LIPID PROFILEon 09-20-2022 CHOL-HDL RATIO NORM SEE BELOW Normal [facility] Comment on above: Result Comment: 3.3 - 4.4 LOW RISK 4.4 - 7.1 AVERAGE RISK 7.1 - 11.0 MODERATE RISK >11.0 HIGH RISK Performed By: #### L IPID, CMP #### [facility] [address] [place] [address] Dr. Carla Little Cholesterol [Mass/Vol] 124 mg/dL Normal <=200 [facility] Comment on above: Performed By: #### L IPID, CMP #### [facility] [address] [place] [address] Dr. Carla Little Cholesterol in HDL [Mass/Vol] 47 mg/dL Normal 40-60 [facility] Comment on above: Performed By: #### L IPID, CMP #### [facility] [address] [place] [address] [address] Carla Little Cholesterol in LDL [Mass/Vol] 61.0 mg/dL Normal [facility] Comment on above: Performed By: #### L IPID, CMP #### [facility] [address] [place] [address] [address] Carla Little Cholesterol.total/ Cholesterol in HDL [Mass ratio] 2.6 {ratio} Normal [facility] Comment on above: Performed By: #### L IPID, CMP #### [facility] [address] [place] [address] [address] Carla Little HDL NORMAL > or = 60 mg/dl - LO W CARDIOVASCULAR RISK <40 mg/dl - HIGH CARDIOVASCULAR RISK Normal [facility] Comment on above: Performed By: #### L IPID, CMP #### [facility] [address] [place] [address] [address] Carla Little LDL CALC NORMAL SEE BELOW Normal [facility] Comment on above: Result Comment: <100 mg/dl OPTIMAL 100 - 129 mg/dl NEAR OR ABOVE OPTIMAL 130 - 159 mg/dl BORDERLINE HIGH 160 - 189 mg/dl HIGH >190 mg/dl VERY HIGH Performed By: #### L IPID, CMP #### [facility] [address] [place] [address] Dr. Carla Little Triglyceride [Mass/Vol] 80 mg/dL Normal <=150 [facility] Comment on above: Performed By: #### L IPID, CMP #### [facility] [address] [place] [address] Dr. Carla Little VLDL CALC 16.0 mg/dL Normal [facility] Comment on above: Performed By: #### L IPID, CMP #### [facility] [address] [place] [address] [address] Carla Little PROF 14(COMP METB)on 023 Albumin [Mass/Vol] 3.4 g/dL Normal 3.4-5.0 [facility] Comment on above: Performed By: #### L IPID, CMP #### [facility] [address] [place] [address] Dr. Carla Little Albumin/Globulin [Mass ratio] 1.2 {ratio} Normal [facility] Comment on above: Performed By: #### L IPID, CMP #### [facility] [address] [place] [address] [address] Carla Little ALP [Catalytic activity/Vol] 137 U/L Critically high 46-116 [facility] Comment on above: Performed By: #### L IPID, CMP #### [facility] [address] [place] [address] [address] Carla Little ALT [Catalytic activity/Vol] 20 U/L Normal 14-59 [facility] Comment on above: Performed By: #### L IPID, CMP #### [facility] [address] [place] [address] [address] Carla Little Anion gap [Moles/Vol] 14.2 mmol/L Normal [facility] Comment on above: Performed By: #### L IPID, CMP #### [facility] [address] [place] [address] [address] Carla Little AST [Catalytic activity/Vol] 14 U/L Critically low 15-37 [facility] Comment on above: Performed By: #### L IPID, CMP #### [facility] [address] [place] [address] Dr. Carla Little Bilirubin [Mass/Vol] 0.3 mg/dL Normal 0.2-1.0 [facility] Comment on above: Performed By: #### L IPID, CMP #### [facility] [address] [place] [address] [address] Carla Little Calcium [Mass/Vol] 8.8 mg/dL Normal 8.5-10.1 [facility] Comment on above: Performed By: #### L IPID, CMP #### [facility] [address] [place] [address] [address] Carla Little Chloride [Moles/Vol] 108 mmol/L Critically high 98-107 [facility] Comment on above: Performed By: #### L IPID, CMP #### [facility] [address] [place] [address] Dr. Carla Little CO2 [Moles/Vol] 27.1 mmol/L Normal 21.0-32.0 [facility] Comment on above: Performed By: #### L IPID, CMP #### [facility] [address] [place] [address] [address] Carla Little Creatinine [Mass/Vol] 1.57 mg/dL Critically high 0.55-1.02 [facility] Comment on above: Performed By: #### L IPID, CMP #### [facility] [address] [place] [address] [address] Carla Little EGFR-AF ECUADOREAN 38 mL/min/1.73m2 Critically low >=60 [facility] Comment on above: Performed By: #### L IPID, CMP #### [facility] [address] [place] [address] Dr. Carla Little EGFR-NON AF ECUADOREAN 31 mL/min/1.73m2 Critically low >=60 [facility] Comment on above: Performed By: #### L IPID, CMP #### [facility] [address] [place] [address] Dr. Carla Little Globulin (S) [Mass/Vol] 2.8 g/dL Normal [facility] Comment on above: Performed By: #### L IPID, CMP #### [facility] [address] [place] [address] Dr. Carla Little Glucose [Mass/Vol] 108 mg/dL Critically high 74-106 [facility] Comment on above: Performed By: #### L IPID, CMP #### [facility] [address] [place] [address] Dr. Carla Little Potassium [Moles/Vol] 4.3 mmol/L Normal 3.5-5.1 [facility] Comment on above: Performed By: #### L IPID, CMP #### [facility] [address] [place] [address] Dr. Carla Little Protein [Mass/Vol] 6.2 g/dL Critically low 6.4-8.2 [facility] Comment on above: Performed By: #### L IPID, CMP #### [facility] [address] [place] [address] [address] Carla Little Sodium [Moles/Vol] 145 mmol/L Normal 136-145 [facility] Comment on above: Performed By: #### L IPID, CMP #### [facility] [address] [place] [address] [address] Carla Little Urea nitrogen [Mass/Vol] 27.0 mg/dL Critically high 7.0-18.0 [facility] Comment on above: Performed By: #### L IPID, CMP #### [facility] [address] [place] [address] [address] Carla Little Urea nitrogen/Creatinin e [Mass ratio] 17.2 mg/mg Normal [facility] Comment on above: Performed By: #### L IPID, CMP #### [facility] [address] [place] [address] [address] Carla Little Usp Recordson 09-17 [facility] Records [id number] 0CD:127 Normal [facility]sp Recordson 09-16 [facility] Records [id number] 0CD:127 Normal [facility] Retail - Clinical Noteon Retail - Clinical Note [id number] 0CD:127 Normal [facility] PT - Progress Noteson 2022 PT - Progress Notes [id number] 0CD:127 Normal [facility] Interdisciplinary Note - Soc ial Workeron 08-27-2022 Interdisciplinary Note - Revenue Accounting Manager This SW attempted to reach patient again today regarding concerns for transportation to and from medical appointments. There was no answer and no voicemail was available. Patient does reside at [facility]. SW will remain available. Normal [facility] Interdisciplinary Note - Soc ial Workeron 08-07-2022 Interdisciplinary Note - Revenue Accounting Manager This SW recieved a consult for SDOH due to it being marked that there were concerns related to transportation. This SW tried to contact patient however there was no answer and voicemail was not available. SW will try to reach her again at a later time. Normal [facility] FRESH FROZ PLASMAon 07-17-19 23 ABO and Rh group Nom (Bld) Unit Blood Type O Pos Unit Number [id number] Status Information Transfused Product ID FFP Product Code [id number] Unit Blood Type O Pos Unit Number [id number] Status Information Transfused Product ID FFP Product Code [id number] Normal [facility] Comment on above: Performed By: #### F FP #### [facility] [address] [place] [address] [address] Carla Little Basic Metab w/rfx MGon 06-20 Anion gap [Moles/Vol] 10 mmol/L Normal 9-17 [facility] Comment on above: Performed By: #### M RSANO #### [address] [address] Crusher Assembler: Sideny Epps MD Chloride [Moles/Vol] 105 mmol/L Normal 98-107 [facility] Comment on above: Performed By: #### M RSANO #### [facility] [address] [place] [address] Crusher Assembler: Sidney Epps MD CO2 [Moles/Vol] 23 mmol/L Normal 20-31 [facility] Comment on above: Performed By: #### M RSANO #### [facility] [address] [place] [address] Crusher Assembler: Sidney Epps MD Creatinine [Mass/Vol] 1.38 mg/dL High 0.50-0.90 [facility] Comment on above: Performed By: #### M RSANO #### [facility] [address] [place] [address] Crusher Assembler: Sidney Epps MD GFR/1.73 sq M.predicted among non-blacks MDRD (S/P/Bld) [Vol rate/Area] 38 mL/min/{1.73_m2} Low >60 [facility] Comment on above: Result Comment: These results [...] Performed By: #### M RSANO #### [facility] [address] [place] [address] Crusher Assembler: Sidney Epps MD Glucose [Mass/Vol] 96 mg/dL Normal 70-99 [facility] Comment on above: Performed By: #### M RSANO #### [address] [address] Crusher Assembler: Sidney Epps MD Potassium [Moles/Vol] 4.6 mmol/L Normal 3.7-5.3 [facility] Comment on above: Performed By: #### M RSANO #### [address] [address] Crusher Assembler: Sidney Epps MD Sodium [Moles/Vol] 138 mmol/L Normal 135-144 [facility] Comment on above: Performed By: #### M RSANO #### [facility] [address] [place] [address] Crusher Assembler: Sidney Epps MD Urea nitrogen [Mass/Vol] 33 mg/dL High 8-23 [facility] Comment on above: Performed By: #### M RSANO #### [facility] [address] [place] [address] Crusher Assembler: Sidney Epps MD Calcium [Mass/Vol] 8.8 mg/dL Normal 8.6-10.4 [facility] Comment on above: Performed By: #### M RSANO #### [facility] [address] [place] [address] Crusher Assembler: Sidney Epps MD Basic Metabolic Panel w/ Ref rashid to MGon 06-20-2022 Anion gap [Moles/Vol] 10 mmol/L 9 - 17 mmol/L [facility] Chloride [Moles/Vol] 105 mmol/L 98 - 107 mmol/L [facility] CO2 [Moles/Vol] 23 mmol/L 20 - 31 mmol/L [facility] Creatinine [Mass/Vol] 1.38 mg/dL High 0.50 - 0.90 mg/dL [facility] [employer] [place] GFR/1.73 sq M.predicted MDRD (S/P/Bld) [Vol rate/Area] 38 mL/min/{1.73_m2} Low - PINF [facility] Comment on above: These results [...] [Mass/Vol] 96 mg/dL 70 - 99 mg/dL [facility] Interpretation and review of laboratory results Abnormal [facility] Potassium [Moles/Vol] 4.6 mmol/L 3.7 - 5.3 mmol/L [facility] Sodium [Moles/Vol] 138 mmol/L 135 - 144 mmol/L [facility] Urea nitrogen [Mass/Vol] 33 mg/dL High 8 - 23 mg/dL [facility] CBC with Auto Differentialon 06-20-2022 Absolute Eos # [facility] Absolute Immature Granulocyte 0.24 [facility] Absolute Lymph # 0.71 Low [facility] Absolute [place] # 1.15 [facility] [employer] [place] Basophils Absolute [facility] Basophils/100 WBC (Bld) 0 % 0 - 2 % [facility] Eosinophils/100 WBC (Bld) 0 % Low 1 - 4 % [facility] Hematocrit (Bld) [Volume fraction] 32.7 % Low 36.3 - 47.1 % [facility] Hemoglobin (Bld) [Mass/Vol] 10.8 g/dL Low 11.9 - 15.1 g/dL [facility] Immature granulocytes/100 WBC (Bld) 2 % High 0 [facility] Interpretation and review of laboratory results Abnormal [facility] Lymphocytes/100 WBC (Bld) 5 % Low 24 - 43 % [facility] MCH (RBC) [Entitic mass] 30.0 pg 25.2 - 33.5 pg [facility] MCHC (RBC) [Mass/Vol] 33.0 g/dL 28.4 - 34.8 g/dL [facility] MCV (RBC) [Entitic vol] 90.8 fL 82.6 - 102.9 fL [facility] Monocytes/100 WBC (Bld) 7 % 3 - 12 % [facility] NRBC Automated 0.0 0.0 per 100 WBC [facility] Platelet distribution width (Bld) [Ratio] 14.4 % 11.8 - 14.4 % [facility] Platelet mean volume (Bld) [Entitic vol] 10.3 fL 8.1 - 13.5 fL [facility] Platelets (Bld) [#/Vol] 218 10*3/uL [facility] RBC (Bld) [#/Vol] 3.60 10*6/uL Low 3.95 - 5.11 m/uL [facility] Segmented neutrophils/100 WBC (Bld) 87 % High 36 - 65 % [facility] Segs Absolute 13.71 High [facility] WBC (Bld) [#/Vol] 15.8 10*3/uL High [facility] CBC with Diffon 06-20-2022 Abs. Basophil <0.03 Normal 0.00-0.20 [facility] Comment on above: Performed By: #### M RSANO #### [address] [address] Crusher Assembler: Sidney Epps MD Abs. Eosinophil <0.03 Normal 0.00-0.44 [facility] Comment on above: Performed By: #### M RSANO #### [address] [address] Crusher Assembler: Sidney Epps MD Abs.Imm.Granulocyt e 0.24 k/uL Normal 0.00-0.30 [facility] Comment on above: Performed By: #### M RSANO #### [address] [address] Crusher Assembler: Sidney Epps MD Abs.Neutrophil (Seg) 13.71 k/uL High 1.50-8.10 [facility] Comment on above: Performed By: #### M RSANO #### [address] [address] Crusher Assembler: Sidney Epps MD Basophils/100 WBC (Bld) 0 % Normal 0-2 [facility] Comment on above: Performed By: #### M RSANO #### [address] [address] Crusher Assembler: Sidney Epps MD Eosinophils/100 WBC (Bld) 0 % Low 1-4 [facility] Comment on above: Performed By: #### M RSANO #### [address] [address] Crusher Assembler: Sidney Epps MD Erythrocyte distribution width (RBC) [Ratio] 14.4 % Normal 11.8-14.4 [facility] Comment on above: Performed By: #### M RSANO #### [address] [address] Crusher Assembler: Sidney Epps MD Hematocrit (Bld) [Volume fraction] 32.7 % Low 36.3-47.1 [facility] Comment on above: Performed By: #### M RSANO #### [address] [address] Crusher Assembler: Sidney Epps MD Hemoglobin (Bld) [Mass/Vol] 10.8 g/dL Low 11.9-15.1 [facility] Comment on above: Performed By: #### M RSANO #### [address] [address] Crusher Assembler: Sidney Epps MD Immature granulocytes/100 WBC (Bld) 2 % High 0 [facility] Comment on above: Performed By: #### M RSANO #### [address] [address] Crusher Assembler: Sidney Epps MD Lymphocytes (Bld) [#/Vol] 0.71 10*3/uL Low 1.10-3.70 [facility] Comment on above: Performed By: #### M RSANO #### [address] [address] Crusher Assembler: Sidney Epps MD Lymphocytes/100 WBC (Bld) 5 % Low 24-43 [facility] Comment on above: Performed By: #### M RSANO #### [address] [address] Crusher Assembler: Sidney Epps MD MCH (RBC) [Entitic mass] 30.0 pg Normal 25.2-33.5 [facility] Comment on above: Performed By: #### M RSANO #### [address] [address] Crusher Assembler: Sidney Epps MD MCHC (RBC) [Mass/Vol] 33.0 g/dL Normal 28.4-34.8 [facility] Comment on above: Performed By: #### M RSANO #### [address] [address] Crusher Assembler: Sidney Epps MD MCV (RBC) [Entitic vol] 90.8 fL Normal 82.6-102.9 [facility] Comment on above: Performed By: #### M RSANO #### [address] [address] Crusher Assembler: Sidney Epps MD Monocytes (Bld) [#/Vol] 1.15 10*3/uL Normal 0.10-1.20 [facility] Comment on above: Performed By: #### M RSANO #### [address] [address] Crusher Assembler: Sidney Epps MD Monocytes/100 WBC (Bld) 7 % Normal 3-12 [facility] Comment on above: Performed By: #### M RSANO #### [address] [address] Crusher Assembler: Sidney Epps MD Neutrophil (Seg) 87 % High 36-65 [facility] Comment on above: Performed By: #### M RSANO #### [address] [address] Crusher Assembler: Sidney Epps MD NRBC Automated 0.0 per 100 WBC Normal 0.0 [facility] Comment on above: Performed By: #### M RSANO #### [address] [address] Crusher Assembler: Sidney Epps MD Platelet mean volume (Bld) [Entitic vol] 10.3 fL Normal 8.1-13.5 [facility] Comment on above: Performed By: #### M RSANO #### [address] [address] Crusher Assembler: Sidney Epps MD Platelets (Bld) [#/Vol] 218 10*3/uL Normal 138-453 [facility] Comment on above: Performed By: #### M RSANO #### [facility] [address] [place] [address] Crusher Assembler: Sidney Epps MD RBC (Bld) [#/Vol] 3.60 10*6/uL Low 3.95-5.11 [facility] Comment on above: Performed By: #### M RSANO #### [facility] [address] [place] [address] Crusher Assembler: Sidney Epps MD WBC (Bld) [#/Vol] 15.8 10*3/uL High 3.5-11.3 [facility] Comment on above: Performed By: #### M RSANO #### [facility] [address] [place] [address] Crusher Assembler: Sidney Epps MD Basic Metab w/rfx MGon 06-19 Anion gap [Moles/Vol] 14 mmol/L Normal 9-17 [facility] Comment on above: Performed By: #### C DP BMPX ####[facility] [address] [place], [place] [id number])[phone] Director: Sidney Epps MD Calcium [Mass/Vol] 9.4 mg/dL Normal 8.6-10.4 [facility] Comment on above: Performed By: #### C DP, BMPX ####[facility] [address] [place], [place] [phone] Director: Sidney Epps MD Chloride [Moles/Vol] 104 mmol/L Normal 98-107 [facility] Comment on above: Performed By: #### C DP, BMPX ####[facility] [address] [place], [place] [phone] Director: Sidney Epps MD CO2 [Moles/Vol] 18 mmol/L Low 20-31 [facility] Comment on above: Performed By: #### C DP, BMPX ####[facility] [address] [place] [address] Lab Director: Sidney Epps MD Creatinine [Mass/Vol] 1.41 mg/dL High 0.50-0.90 [facility] Comment on above: Performed By: #### C DP, BMPX ####[address] [address] Lab Director: Sidney Epps MD GFR/1.73 sq M.predicted among non-blacks MDRD (S/P/Bld) [Vol rate/Area] 37 mL/min/{1.73_m2} Low >60 [facility] Comment on above: Result Comment: These results [...] Performed By: #### C DP, BMPX ####[facility] [address] [place] [address])[phone] Director: Sidney Epps MD Glucose [Mass/Vol] 122 mg/dL High 70-99 [facility] Comment on above: Performed By: #### C DP, BMPX ####[facility] [address] [place] [address] Lab Director: Sidney Epps MD Potassium [Moles/Vol] 4.6 mmol/L Normal 3.7-5.3 [facility] Comment on above: Performed By: #### C DP, BMPX ####[facility] [address]pgpc[address] [place] [address] Lab Director: Sidney Epps MD Sodium [Moles/Vol] 136 mmol/L Normal 135-144 [facility] Comment on above: Performed By: #### C DP, BMPX ####[facility] A[address]pstwuylwl[address] [place], [place] 1865[address] lab Director: Sidney Epps MD Urea nitrogen [Mass/Vol] 32 mg/dL High 8-23 [facility] Comment on above: Performed By: #### C DP, BMPX ####[facility] [address]fed[address] [place], [place] [phone] lab Director: Sidney Epps MD Basic Metabolic Panel w/ Ref rashid to MGon 06-19-2022 Anion gap [Moles/Vol] 14 mmol/L 9 - 17 mmol/L [facility] [employer] Calcium [Mass/Vol] 9.4 mg/dL 8.6 - 10.4 mg/dL [facility] [employer] Chloride [Moles/Vol] 104 mmol/L 98 - 107 mmol/L [facility] [employer] [place] CO2 [Moles/Vol] 18 mmol/L Low 20 - 31 mmol/L [facility] [employer] [place] Creatinine [Mass/Vol] 1.41 mg/dL High 0.50 - 0.90 mg/dL [facility] [employer] GFR/1.73 sq M.predicted MDRD (S/P/Bld) [Vol rate/Area] 37 mL/min/{1.73_m2} Low - PINF [facility] Comment on above: These results are not [...] 122 mg/dL High 70 - 99 mg/dL [facility] Interpretation and review of laboratory results Abnormal [facility] Potassium [Moles/Vol] 4.6 mmol/L 3.7 - 5.3 mmol/L [facility] [employer] Sodium [Moles/Vol] 136 mmol/L 135 - 144 mmol/L [facility] [employer] Urea nitrogen [Mass/Vol] 32 mg/dL High 8 - 23 mg/dL [facility] CBC with Auto Differentialon 06-19-2022 Absolute Eos # 0.00 [facility] Absolute Immature Granulocyte 0.43 High [facility] Absolute Lymph # 0.65 Low [facility] Absolute [place] # 0.[address] [facility] RS [facility] Basophils (Bld) [#/Vol] 0.00 10*3/uL [facility] Basophils/100 WBC (Bld) 0 % 0 - 2 % [facility] Eosinophils/100 WBC (Bld) 0 % Low 1 - 4 % [facility] Hematocrit (Bld) [Volume fraction] 31.7 % Low 36.3 - 47.1 % [facility] Hemoglobin (Bld) [Mass/Vol] 9.5 g/dL Low 11.9 - 15.1 g/dL [facility] Immature granulocytes/100 WBC (Bld) 2 % High 0 [facility] Interpretation and review of laboratory results Abnormal [facility] Lymphocytes/100 WBC (Bld) 3 % Low 24 - 43 % [facility] MCH (RBC) [Entitic mass] 29.9 pg 25.2 - 33.5 pg [facility] MCHC (RBC) [Mass/Vol] 30.0 g/dL 28.4 - 34.8 g/dL [facility] MCV (RBC) [Entitic vol] 99.7 fL 82.6 - 102.9 fL [facility] Monocytes/100 WBC (Bld) 4 % 3 - 12 % [facility] Morphology Min (Bld) [Interp] ANISOCYTOSIS PRESENT [facility] NRBC Automated 0.0 0.0 per 100 WBC [facility] Jorge [facility] Platelet distribution width (Bld) [Ratio] 14.6 % High 11.8 - 14.4 % [facility] Platelet mean volume (Bld) [Entitic vol] 10.6 fL 8.1 - 13.5 fL [facility] Platelets (Bld) [#/Vol] 232 10*3/uL [facility] RBC (Bld) [#/Vol] 3.18 10*6/uL Low 3.95 - 5.11 m/uL [facility] Segmented neutrophils/100 WBC (Bld) 91 % High 36 - 65 % [facility] Segs Absolute 19.56 High [facility] WBC (Bld) [#/Vol] 21.5 10*3/uL High [facility] CBC with Diffon 06-19-2022 Abs. Basophil 0.00 k/uL Normal 0.00-0.20 [facility] Comment on above: Performed By: #### C DP, BMPX ####[facility] [address], [place] [address])[phone] Director: Sidney Epps MD Abs.Imm.Granulocyt e 0.43 k/uL High 0.00-0.30 [facility] Comment on above: Performed By: #### C DP, BMPX ####[facility] [address] [place], [place] [address])[phone] Director: Sidney Epps MD Abs.Neutrophil (Seg) 19.56 k/uL High 1.50-8.10 [facility] Comment on above: Performed By: #### C DP, BMPX ####[facility] [address], [place] [address])[phone] Director: Sidney Epps MD Basophils/100 WBC (Bld) 0 % Normal 0-2 [facility] Comment on above: Performed By: #### C DP, BMPX ####[facility] [address] [place], [place] [address])[phone] Director: Sidney Epps MD Eosinophils (Bld) [#/Vol] 0.00 10*3/uL Normal 0.00-0.44 [facility] Comment on above: Performed By: #### C DP, BMPX ####[facility] [address], [place] [address])[phone] Director: Sidney Epps MD Eosinophils/100 WBC (Bld) 0 % Low 1-4 [facility] Comment on above: Performed By: #### C DP, BMPX ####[address] [address])[phone] Director: Sidney Epps MD Immature granulocytes/100 WBC (Bld) 2 % High 0 [facility] Comment on above: Performed By: #### C DP, BMPX ####[place], [place] [address])[phone] Director: Sidney Epps MD Lymphocytes (Bld) [#/Vol] 0.65 10*3/uL Low 1.10-3.70 [facility] Comment on above: Performed By: #### C DP, BMPX ####[place], [place] [address])[phone] Director: Sidney Epps MD Lymphocytes/100 WBC (Bld) 3 % Low 24-43 [facility] Comment on above: Performed By: #### C DP, BMPX ####[place], [place] [address])[phone] Director: Sidney Epps MD Monocytes (Bld) [#/Vol] 0.86 10*3/uL Normal 0.10-1.20 [facility] Comment on above: Performed By: #### C DP, BMPX ####[address] [address])[phone] Director: Sidney Epps MD Monocytes/100 WBC (Bld) 4 % Normal 3-12 [facility] Comment on above: Performed By: #### C DP, BMPX ####[place], [place] [address])[phone] Director: Sidney Epps MD Morphology Min (Bld) [Interp] ANISOCYTOSIS PRESENT Normal [facility] Comment on above: Performed By: #### C DP, BMPX ####[facility] [address] [place] [address] Lab Director: Sidney Epps MD Neutrophil (Seg) 91 % High 36-65 [facility] Comment on above: Performed By: #### C DP, BMPX ####[facility] [address] [place] [address] Lab Director: Sidney Epps MD Erythrocyte distribution width (RBC) [Ratio] 14.6 % High 11.8-14.4 [facility] Comment on above: Performed By: #### C DP, BMPX ####[address] [address] Lab Director: Sidney Epps MD Hematocrit (Bld) [Volume fraction] 31.7 % Low 36.3-47.1 [facility] Comment on above: Performed By: #### C DP, BMPX ####[facility] [address] [place] [address] Lab Director: Sidney Epps MD Hemoglobin (Bld) [Mass/Vol] 9.5 g/dL Low 11.9-15.1 [facility] Comment on above: Performed By: #### C DP, BMPX ####[address] [address] Lab Director: Sidney Epps MD MCH (RBC) [Entitic mass] 29.9 pg Normal 25.2-33.5 [facility] Comment on above: Performed By: #### C DP, BMPX ####[facility] [address] [place] [address] Lab Director: Sidney Epps MD MCHC (RBC) [Mass/Vol] 30.0 g/dL Normal 28.4-34.8 [facility] Comment on above: Performed By: #### C DP, BMPX ####[facility] [address] [place] [address], [place] [id number])[phone] Director: Sidney Epps MD MCV (RBC) [Entitic vol] 99.7 fL Normal 82.6-102.9 [facility] Comment on above: Performed By: #### C DP, BMPX ####[address] [id number])[phone] Director: Sidney Epps MD NRBC Automated 0.0 per 100 WBC Normal 0.0 [facility] Comment on above: Performed By: #### C DP, BMPX ####[address] [id number])[phone] Director: Sidney Epps MD Platelet mean volume (Bld) [Entitic vol] 10.6 fL Normal 8.1-13.5 [facility] Comment on above: Performed By: #### C DP, BMPX ####[address] [id number])[phone] Director: Sidney Epps MD Platelets (Bld) [#/Vol] 232 10*3/uL Normal 138-453 [facility] Comment on above: Performed By: #### C DP, BMPX ####[address] [id number])[phone] Director: Sidney Epps MD RBC (Bld) [#/Vol] 3.18 10*6/uL Low 3.95-5.11 [facility] Comment on above: Performed By: #### C DP, BMPX ####[facility] [address] [place] [address] [phone])[phone] Director: Sidney Epps MD WBC (Bld) [#/Vol] 21.5 10*3/uL High 3.5-11.3 [facility] Comment on above: Performed By: #### C DP, BMPX ####[address] [address] Lab Director: Sidney Epps MD CT CHEST [...] known risk factors. Radiology 2017 http://pubs.rsna.org/d oi/full/10.1148/radiol .[id number] Interpreted by: Scott Sinha MD Signed by: Scott Sinha MD 06/19/22 Final result Normal [facility] 1. No evidence of acute pneumonia. 2. [...] known risk factors. Radiology 2017 http://pubs.rsna.org/d oi/full/10.1148/radiol .[id number] [facility] RIS CONSOLIDATED EXAMINATION: CT OF [...] a bone island. No acute osseous abnormality. PN RIS CONSOLIDATED Scott Sinha MD - 06/19/2022 [...] known risk factors. Radiology 2017 http://pubs.rsna.org/d oi/full/10.1148/radiol .[id number] [employer] Work Phone: Radiology Study observation (narrative) [employer] Phone: CT CHEST WO CONTRASTOrdered By: Scott Sinha on 06-19-2022 [employer] Phone: FL MODIFIED BARIUM SWALLOW W VIDEOon 06-19-2022 FL MODIFIED BARIUM SWALLOW W VIDEO EXAMINATION: MODIFIED BARIUM SWALLOW WAS PERFORMED IN CONJUNCTION WITH [employer] TECHNIQUE: Under fluoroscopic evaluation cineradiography/videor adiography recordings were performed in conjunction with the speech-language pathologist (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 TEACHER). Various liquid, solid and/or semi-solid barium preparations were used to assess swallowing function. FLUOROSCOPY DOSE AND TYPE OR TIME AND EXPOSURES: DAP 12.708PFdvx0 COMPARISON: None HISTORY: ORDERING SYSTEM PROVIDED HISTORY: [...] Juancho Ferrara MD 06/19/22 Final result Normal [facility] Swallowing mechanism grossly within normal limits without evidence of aspiration. Please see separate speech pathology report for full discussion of findings and recommendations. [facility] RIS CONSOLIDATED EXAMINATION: MODIFIED BARIUM SWALLOW WAS PERFORMED IN CONJUNCTION WITH [employer]ECH PATHOLOG[employer] TECHNIQUE: Under fluoroscopic evaluation cineradiography/videor adiography recordings were performed in conjunction with the speech-language pathologist (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 TEACHER). Various liquid, solid and/or semi-solid barium preparations were used to assess swallowing function. FLUOROSCOPY DOSE AND TYPE OR TIME AND EXPOSURES: DAP 12.588XRzzy7 COMPARISON: None HISTORY: ORDERING SYSTEM PROVIDED HISTORY: dysphagia and hx of esophageal dilatation TECHNOLOGIST PROVIDED HISTORY: dysphagia and hx of esophageal dilatation FINDINGS: Patient was given thick and thin barium as well as puree, soft solid and cookie consistency barium. No laryngeal penetration or aspiration. Minimal pooling in the vallecula and piriform sinuses. [facility] Juancho Hall MD - 06/19/2022 EXAMINATION: MODIFIED BARIUM SWALLOW WAS PERFORMED IN CONJUNCTION WITH SPEECH PATHOLOGY SERVICES TECHNIQUE: Under fluoroscopic evaluation cineradiography/videor adiography recordings were performed in conjunction with the speech-language pathologist (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 TEACHER). Various liquid, solid and/or semi-solid barium preparations were used to assess swallowing function. FLUOROSCOPY DOSE AND TYPE OR TIME AND EXPOSURES: DAP 12.976YShuv3 COMPARISON: None HISTORY: ORDERING SYSTEM PROVIDED HISTORY: [...] for full discussion of findings and recommendations. [employer] Phone: Radiology Study observation (narrative) [employer] Phone: FL MODIFIED BARIUM SWALLOW W VIDEOOrdered By: Juancho Ferrara on 06-19-2022 [employer] Phone: B12/Folate Panelon 3 Cobalamin (Vitamin B12) [Mass/Vol] 496 pg/mL Normal 232-1245 [facility] Comment on above: Performed By: #### B 12FOL ####[employer] [place], [place] 2532[address] Lab Director: Sidney Epps MD Folic Acid 5.3 ng/mL Normal >4.8 [facility] Comment on above: Performed By: #### B 12FOL ####[employer] [address] [place], [place] [id number] Lab Director: Sidney Epps MD Basic Metab w/rfx MGon 06-18 Anion gap [Moles/Vol] 11 mmol/L Normal 9-17 [facility] Comment on above: Performed By: #### F KRISTEN, IPF, CDP, BMPX, FEBC ####[facility] [address] [place], [place] [id number])[phone] Director: Sdiney Epps MD Calcium [Mass/Vol] 9.2 mg/dL Normal 8.6-10.4 [facility] Comment on above: Performed By: #### F KRISTEN, IPF, CDP, BMPX, FEBC ####[facility] [address] [place], [place] [id number])[phone] Director: Sidney Epps MD Chloride [Moles/Vol] 112 mmol/L High 98-107 [facility] Comment on above: Performed By: #### F KRISTEN, IPF, CDP, BMPX, FEBC ####[facility] [address] [place], [place] [id number])[phone] Director: Sidney Epps MD CO2 [Moles/Vol] 20 mmol/L Normal 20-31 [facility] Comment on above: Performed By: #### F KRISTEN, IPF, CDP, BMPX, FEBC ####[facility] [address] [place], [place] [id number])[phone] Director: Sidney Epps MD Creatinine [Mass/Vol] 1.51 mg/dL High 0.50-0.90 [facility] Comment on above: Performed By: #### F KRISTEN, IPF, CDP, BMPX, FEBC ####[facility] [address] [place] [address] Lab Director: Sidney Epps MD GFR/1.73 sq M.predicted among non-blacks MDRD (S/P/Bld) [Vol rate/Area] 34 mL/min/{1.73_m2} Low >60 [facility] Comment on above: Result Comment: These results [...] F KRISTEN, IPF, CDP, BMPX, FEBC ####[facility] [address] [place], [place] [address])[phone] Director: Sidney Epps MD Glucose [Mass/Vol] 153 mg/dL High 70-99 [facility] Comment on above: Performed By: #### F KRISTEN, IPF, CDP, BMPX, FEBC ####[place] [place], [place] [address])[phone] Director: Sidney Epps MD Potassium [Moles/Vol] 4.5 mmol/L Normal 3.7-5.3 [facility] Comment on above: Performed By: #### F KRISTEN, IPF, CDP, BMPX, FEBC ####[facility] [address] [place], [place] [id number])[phone] Director: Sidney Epps MD Sodium [Moles/Vol] 143 mmol/L Normal 135-144 [facility] Comment on above: Performed By: #### F KRISTEN, IPF, CDP, BMPX, FEBC ####[facility] [address] [place], [place] [id number])[phone] Director: Sidney Epps MD Urea nitrogen [Mass/Vol] 27 mg/dL High 8-23 [facility] Comment on above: Performed By: #### F KRISTEN, IPF, CDP, BMPX, FEBC ####[facility] [address] [place], [place] [id number])[phone] Director: Sidney Epps MD Basic Metabolic Panel w/ Ref rashid to MGon 06-18-2022 Anion gap [Moles/Vol] 11 mmol/L 9 - 17 mmol/L [facility] Calcium [Mass/Vol] 9.2 mg/dL 8.6 - 10.4 mg/dL [facility] Chloride [Moles/Vol] 112 mmol/L High 98 - 107 mmol/L [facility] CO2 [Moles/Vol] 20 mmol/L 20 - 31 mmol/L [facility] Creatinine [Mass/Vol] 1.51 mg/dL High 0.50 - 0.90 mg/dL [facility] GFR/1.73 sq M.predicted MDRD (S/P/Bld) [Vol rate/Area] 34 mL/min/{1.73_m2} Low - PINF [facility] Comment on above: These results [...] 153 mg/dL High 70 - 99 mg/dL [facility] Interpretation and review of laboratory results Abnormal [facility] Potassium [Moles/Vol] 4.5 mmol/L 3.7 - 5.3 mmol/L [facility] Sodium [Moles/Vol] 143 mmol/L 135 - 144 mmol/L [facility] Urea nitrogen [Mass/Vol] 27 mg/dL High 8 - 23 mg/dL [facility] C1 ESTERASE INHIBITOR PANELo n 06-18-2022 C1 Esterase Inhibitor 38 mg/dL 21 - 38 mg/dL [facility] Comment on above: (NOTE) Performed By: [employer] [address] [place] [address] Rug Dyer Helper: Alessio Hung MD, PhD [facility] C1 Esterase Inhibon 06-18-19 23 C1 Esterase Inhib 38 mg/dL Normal 21-38 [facility] Comment on above: Result Comment: (NOT E) Performed By: [employer] [address] [place] [address] Rug Dyer Helper: Alessio Hung MD, PhD Performed By: #### S ED, BNP, CMPX, CRP, IPF, CDP, C4 ####[facility] [address] [place], [place] [id number] lab Director: Sidney Epps MD#### AC1EIN ####[facility] [address] [place], [place] [id number] lab Director: Bob Florence MD CBC with Auto Differentialon 06-18-2022 Absolute Eos # 0.00 [facility] Absolute Immature Granulocyte 0.47 High [facility] Absolute Lymph # 1.17 [facility] Absolute [place] # 0.93 [facility] Basophils (Bld) [#/Vol] 0.00 10*3/uL [facility] Basophils/100 WBC (Bld) 0 % 0 - 2 % [facility] Eosinophils/100 WBC (Bld) 0 % Low 1 - 4 % [facility] Hematocrit (Bld) [Volume fraction] 29.1 % Low 36.3 - 47.1 % [facility] Hemoglobin (Bld) [Mass/Vol] 9.4 g/dL Low 11.9 - 15.1 g/dL [facility] Immature granulocytes/100 WBC (Bld) 2 % High 0 [facility] Interpretation and review of laboratory results Abnormal [facility] Lymphocytes/100 WBC (Bld) 5 % Low 24 - 43 % [facility] MCH (RBC) [Entitic mass] 29.8 pg 25.2 - 33.5 pg [facility] MCHC (RBC) [Mass/Vol] 32.3 g/dL 28.4 - 34.8 g/dL [facility] MCV (RBC) [Entitic vol] 92.4 fL 82.6 - 102.9 fL [facility] Monocytes/100 WBC (Bld) 4 % 3 - 12 % [facility] Morphology Min (Bld) [Interp] ANISOCYTOSIS PRESENT [facility] NRBC Automated 0.0 0.0 per 100 WBC [facility] Platelet distribution width (Bld) [Ratio] 14.6 % High 11.8 - 14.4 % [facility] Platelets (Bld) [#/Vol] See Reflexed IPF Result [facility] RBC (Bld) [#/Vol] 3.15 10*6/uL Low 3.95 - 5.11 m/uL [facility] Segmented neutrophils/100 WBC (Bld) 89 % High 36 - 65 % [facility] Segs Absolute 20.73 High [facility] WBC (Bld) [#/Vol] 23.3 10*3/uL High [facility] CBC with Diffon 06-18-2022 Abs. Basophil 0.00 k/uL Normal 0.00-0.20 [facility] Comment on above: Performed By: #### F KRISTEN, IPF, CDP, BMPX, FEBC ####[facility] [address] [place] [address] Lab Director: Sidney Epps MD Abs.Imm.Granulocyt e 0.47 k/uL High 0.00-0.30 [facility] Comment on above: Performed By: #### F KRISTEN, IPF, CDP, BMPX, FEBC ####[facility] [address]opgbbh[address] [place] [address] Lab Director: Sidney Epps MD Abs.Neutrophil (Seg) 20.73 k/uL High 1.50-8.10 [facility] Comment on above: Performed By: #### F KRISTEN, IPF, CDP, BMPX, FEBC ####[facility] [address] [place] [address] Lab Director: Sidney Epps MD Basophils/100 WBC (Bld) 0 % Normal 0-2 [facility] Comment on above: Performed By: #### F KRISTEN, IPF, CDP, BMPX, FEBC ####[facility] [address]fc[address] [place] [address] Lab Director: Sidney Epps MD Eosinophils (Bld) [#/Vol] 0.00 10*3/uL Normal 0.00-0.44 [facility] Comment on above: Performed By: #### F KRISTEN, IPF, CDP, BMPX, FEBC ####[facility] [address] [place], [place] [address])[phone] Director: Sidney Epps MD Eosinophils/100 WBC (Bld) 0 % Low 1-4 [facility] Comment on above: Performed By: #### F KRISTEN, IPF, CDP, BMPX, FEBC ####[facility] [address], [place] [address])[phone] Director: Sidney Epps MD Immature granulocytes/100 WBC (Bld) 2 % High 0 [facility] Comment on above: Performed By: #### F KRISTEN, IPF, CDP, BMPX, FEBC ####[facility] [address], [place] [address])[phone] Director: Sidney Epps MD Lymphocytes (Bld) [#/Vol] 1.17 10*3/uL Normal 1.10-3.70 [facility] Comment on above: Performed By: #### F KRISTEN, IPF, CDP, BMPX, FEBC ####[facility] [address], [place] [address])[phone] Director: Sidney Epps MD Lymphocytes/100 WBC (Bld) 5 % Low 24-43 [facility] Comment on above: Performed By: #### F KRISTEN, IPF, CDP, BMPX, FEBC ####[facility] [address], [place] [address])[phone] Director: Sidney Epps MD Monocytes (Bld) [#/Vol] 0.93 10*3/uL Normal 0.10-1.20 [facility] Comment on above: Performed By: #### F KRISTEN, IPF, CDP, BMPX, FEBC ####[address] [place] [address] Lab Director: Sidney Epps MD Monocytes/100 WBC (Bld) 4 % Normal 3-12 [facility] Comment on above: Performed By: #### F KRISTEN, IPF, CDP, BMPX, FEBC ####[address] [place] [address] Lab Director: Sidney Epps MD Morphology Min (Bld) [Interp] ANISOCYTOSIS PRESENT Normal [facility] Comment on above: Performed By: #### F KRISTEN, IPF, CDP, BMPX, FEBC ####[address] [address] Lab Director: Sidney Epps MD Neutrophil (Seg) 89 % High 36-65 [facility] Comment on above: Performed By: #### F KRISTEN, IPF, CDP, BMPX, FEBC ####[address] [address] Lab Director: Sidney Epps MD Erythrocyte distribution width (RBC) [Ratio] 14.6 % High 11.8-14.4 [facility] Comment on above: Performed By: #### F KRISTEN, IPF, CDP, BMPX, FEBC ####[address] [address] Lab Director: Sidney Epps MD Hematocrit (Bld) [Volume fraction] 29.1 % Low 36.3-47.1 [facility] Comment on above: Performed By: #### F KRISTEN, IPF, CDP, BMPX, FEBC ####[address] [place] [address] Lab Director: Sidney Epps MD Hemoglobin (Bld) [Mass/Vol] 9.4 g/dL Low 11.9-15.1 [facility] Comment on above: Performed By: #### F KRISTEN, IPF, CDP, BMPX, FEBC ####[facility] [address] [place], [place] [phone] Director: Sidney Epps MD MCH (RBC) [Entitic mass] 29.8 pg Normal 25.2-33.5 [facility] Comment on above: Performed By: #### F KRISTEN, IPF, CDP, BMPX, FEBC ####[facility] [address] [place] [address] Lab Director: Sidney Epps MD MCHC (RBC) [Mass/Vol] 32.3 g/dL Normal 28.4-34.8 [facility] Comment on above: Performed By: #### F KRISTEN, IPF, CDP, BMPX, FEBC ####[address] [phone] Director: Sidney Epps MD MCV (RBC) [Entitic vol] 92.4 fL Normal 82.6-102.9 [facility] Comment on above: Performed By: #### F KRISTEN, IPF, CDP, BMPX, FEBC ####[address] [phone] Director: Sidney Epps MD NRBC Automated 0.0 per 100 WBC Normal 0.0 [facility] Comment on above: Performed By: #### F KRISTEN, IPF, CDP, BMPX, FEBC ####[facility] [address] [place] [address] [phone] Director: Sidney Epps MD Platelet Count See Reflexed IPF Result Normal 138-453 [facility] Comment on above: Performed By: #### F KRISTEN, IPF, CDP, BMPX, FEBC ####[facility] [address] [place], [place] [phone] Director: Sidney Epps MD RBC (Bld) [#/Vol] 3.15 10*6/uL Low 3.95-5.11 [facility] Comment on above: Performed By: #### F KRISTEN, IPF, CDP, BMPX, FEBC ####[facility] [address] [place] [address] Lab Director: Sidney Epps MD WBC (Bld) [#/Vol] 23.3 10*3/uL High 3.5-11.3 [facility] Comment on above: Performed By: #### F KRISTEN, IPF, CDP, BMPX, FEBC ####[facility] [address] [place] [address] Lab Director: Sidney Epps MD EKG 12 leadOrdered By: Unkno wn Result on 06-18-2022 Atrial Rate 94 BPM [facility] P [place] 119 degrees [facility] P-R Interval 168 ms [facility] Q-T Interval 370 ms [facility] [employer] QRS Duration 74 ms [facility] QTc Calculation (Bazett) 462 ms [facility] [employer] R [place] 171 degrees [facility] Resource Guru T [place] 120 degrees [facility] Resource [employer] Ventricular Rate 94 BPM [facility] EKG 12 leadon 06-18-2022 Suspect arm lead reversal, interpretation assumes no reversal Normal sinus rhythm Right axis deviation Nonspecific ST abnormality Abnormal ECG No previous ECGs available [facility] STV MUSE Result, Unknown Provider - 06/18/2022 Suspect arm lead reversal, interpretation assumes no reversal Normal sinus rhythm Right axis deviation Nonspecific ST abnormality Abnormal ECG No previous ECGs available [facility] [employer] Work Phone: Ferritinon 06-18-2022 Ferritin [Mass/Vol] 92 ng/mL Normal 13-150 [facility] Comment on above: Performed By: #### F KRISTEN, IPF, CDP, BMPX, FEBC ####[facility] [address] [place] [address] Lab Director: Sidney Epps MD Ferritin [Mass/Vol] 92 ng/mL 13 - 150 ng/mL [facility] Immature Platelet Fractionon 06-18-2022 Platelet, Fluorescence 223 [facility] Comment on above: ORDERED BY LAB Platelet, Immature Fraction 2.8 % 1.1 - 10.3 % [facility] Comment on above: ORDERED BY LAB [facility] Iron Binding Cap.on 06-18-19 23 % Fe Saturation 24 % Normal 20-55 [facility] Comment on above: Performed By: #### F KRISTEN, IPF, CDP, BMPX, FEBC ####[facility] [employer] [address] [place] [address] Lab Director: Sidney Epps MD Iron [Mass/Vol] 63 ug/dL Normal 37-145 [facility] Comment on above: Performed By: #### F KRISTEN, IPF, CDP, BMPX, FEBC ####[facility] [address] [place] [address] Lab Director: Sidney Epps MD Total Fe Binding Cap 260 ug/dL Normal 250-450 [facility] Comment on above: Performed By: #### F KRISTEN, IPF, CDP, BMPX, FEBC ####[employer] [address] [place] [address] Lab Director: Sidney Epps MD Unbound Fe Bind Cap 197 ug/dL Normal 112-347 [facility] Comment on above: Performed By: #### F KRISTEN, IPF, CDP, BMPX, FEBC ####[facility] [address] [place] [address] Lab Director: Sidney Epps MD Iron and TIBCon 06-18-2022 Iron [Mass/Vol] 63 ug/dL 37 - 145 ug/dL [facility] Iron binding capacity [Mass/Vol] 260 ug/dL 250 - 450 ug/dL [facility] Iron Saturation 24 % 20 - 55 % [facility] UIBC 197 ug/dL 112 - 347 ug/dL [facility] MRSA DNA Probe, Nasalon MRSA, DNA, Nasal Negative NEGATIVE [facility] Comment on above: NEGATIVE: MRSA DNA n ot detected by nucleic acid amplification. Results should be used as an adjunct to nosocomial control efforts to identify patients needing enhanced precautions. The test is not intended to identify patients with staphylococcal infections. Results should not be used to guide or monitor treatment for MRSA infections. Specimen Description .NASAL SWAB [facility] MRSA, DNA, Nasalon MRSA, DNA, Nasal Negative Normal NEG [facility] Comment on above: Result Comment: NEGA TIVE: MRSA DNA not detected by nucleic acid amplification. Results should be used as an adjunct to nosocomial control efforts to identify patients needing enhanced precautions. The test is not intended to identify patients with staphylococcal infections. Results should not be used to guide or monitor treatment for MRSA infections. Performed By: #### M RSANO #### [employer] [address] [place] [address] Crusher Assembler: Sidney Epps MD PLT, Immature Fract.on 06-18 Platelet, Fluoresc. 223 k/uL Normal 138-453 [facility] Comment on above: Result Comment: ORDE RED BY LAB Performed By: #### F KRSITEN, IPF, CDP, BMPX, FEBC ####[employer] [address] [place] [address] Lab Director: Sidney Epps MD PLT, Immature Fract. 2.8 % Normal 1.1-10.3 [facility] Comment on above: Result Comment: ORDE RED BY LAB Performed By: #### F KRISTEN, IPF, CDP, BMPX, FEBC ####[employer] [address] [place] [address] Lab Director: Sidney Epps MD Vitamin B12 & Folateon 06-18 Cobalamin (Vitamin B12) [Mass/Vol] 496 pg/mL 232 - 1245 pg/mL [facility] Folate [Mass/Vol] 5.3 ng/mL 4.8 - PINF ng/mL B ON [facility] Brain Natri. Peptideon 06-17 Natriuretic peptide B (Bld) [Mass/Vol] 1834 pg/mL High <300 [facility] Comment on above: Result Comment: An age-independent cutoff point of 300 pg/ml has a 98% negative predictive value excluding acute heart failure. Performed By: #### S ED, BNP, CMPX, CRP, IPF, CDP, C4 #### [facility] [address] [place] [address] Crusher Assembler: Sidney Epps MD #### AC1EIN #### [address] [address] Crusher Assembler: Bob Florence MD Brain Natriuretic Peptideon 06-17-2022 Natriuretic peptide B (Bld) [Mass/Vol] 1834 pg/mL High NINF - 300 pg/mL [facility] Comment on above: An age-independent cutoff point of 300 pg/ml has a 98% negative predictive value excluding acute heart failure. C-Reactive Proteinon 023 CRP [Mass/Vol] mg/L Normal 0.0-5.0 [facility] Comment on above: Performed By: #### S ED, BNP, CMPX, CRP, IPF, CDP, C4 #### [employer] [address] [place] [address] Crusher Assembler: Sidney Epps MD #### AC1EIN #### [facility] [address] [place] [address] Crusher Assembler: Bob Florence MD CRP High sensitivity method [Mass/Vol] mg/L 0.0 - 5.0 mg/L [facility] C4on 06-17-2022 C4 33 mg/dL Normal 10-40 [facility] Comment on above: Performed By: #### S ED, BNP, CMPX, CRP, IPF, CDP, C4 #### [employer] [address] [place] [address] Crusher Assembler: Sidney Epps MD #### AC1EIN #### [address] [address] Crusher Assembler: Bob Florence MD C4 COMPLEMENTon 06-17-2022 Complement C4 33 mg/dL 10 - 40 mg/dL [facility] CBC with Auto Differentialon 06-17-2022 Absolute Eos # [facility] Absolute Immature Granulocyte 0.19 [facility] Absolute Lymph # 0.80 Low [facility] Absolute [place] # 0.17 [facility] Basophils Absolute [facility] Basophils/100 WBC (Bld) 0 % 0 - 2 % [facility] Eosinophils/100 WBC (Bld) 0 % Low 1 - 4 % [facility] Hematocrit (Bld) [Volume fraction] 32.6 % Low 36.3 - 47.1 % [facility] Hemoglobin (Bld) [Mass/Vol] 10.2 g/dL Low 11.9 - 15.1 g/dL [facility] Immature granulocytes/100 WBC (Bld) 2 % High 0 [facility] Interpretation and review of laboratory results Abnormal [facility] Lymphocytes/100 WBC (Bld) 6 % Low 24 - 43 % [facility] MCH (RBC) [Entitic mass] 29.9 pg 25.2 - 33.5 pg [facility] MCHC (RBC) [Mass/Vol] 31.3 g/dL 28.4 - 34.8 g/dL [facility] MCV (RBC) [Entitic vol] 95.6 fL 82.6 - 102.9 fL [facility] Monocytes/100 WBC (Bld) 1 % Low 3 - 12 % [facility] NRBC Automated 0.0 0.0 per 100 WBC [facility] Platelet distribution width (Bld) [Ratio] 14.2 % 11.8 - 14.4 % [facility] Platelets (Bld) [#/Vol] See Reflexed IPF Result [facility] RBC (Bld) [#/Vol] 3.41 10*6/uL Low 3.95 - 5.11 m/uL [facility] Segmented neutrophils/100 WBC (Bld) 91 % High 36 - 65 % [facility] Segs Absolute 11.59 High [facility] WBC (Bld) [#/Vol] 12.8 10*3/uL High [facility] CBC with Diffon 06-17-2022 Abs. Basophil <0.03 Normal 0.00-0.20 [facility] Comment on above: Performed By: #### S ED, BNP, CMPX, CRP, IPF, CDP, C4 #### [facility] [address] [place] [address] Crusher Assembler: Sidney Epps MD #### AC1EIN #### [facility] [address] [place] [address] Crusher Assembler: Bob Florence MD Abs. Eosinophil <0.03 Normal 0.00-0.44 [facility] Comment on above: Performed By: #### S ED, BNP, CMPX, CRP, IPF, CDP, C4 #### [facility] [employer] [address] [place], [place] [id number] Crusher Assembler: Sidney Epps MD #### AC1EIN #### [facility] [address] [place] [address] Crusher Assembler: Bob Florence MD Abs.Imm.Granulocyt e 0.19 k/uL Normal 0.00-0.30 [facility] Comment on above: Performed By: #### S ED, BNP, CMPX, CRP, IPF, CDP, C4 #### [facility] [address] [place], [place] [id number] Crusher Assembler: Sidney Epps MD #### AC1EIN #### [facility] [address] [place] [address] Crusher Assembler: Bob Florence MD Abs.Neutrophil (Seg) 11.59 k/uL High 1.50-8.10 [facility] Comment on above: Performed By: #### S ED, BNP, CMPX, CRP, IPF, CDP, C4 #### [address] [address] Crusher Assembler: Sidney Epps MD #### AC1EIN #### [facility] [address] [place] [address] Crusher Assembler: Bob Florence MD Basophils/100 WBC (Bld) 0 % Normal 0-2 [facility] Comment on above: Performed By: #### S ED, BNP, CMPX, CRP, IPF, CDP, C4 #### [address] [address] Crusher Assembler: Sidney Epps MD #### AC1EIN #### [address] [phone] Crusher Assembler: Bob Florence MD Eosinophils/100 WBC (Bld) 0 % Low 1-4 [facility] Comment on above: Performed By: #### S ED, BNP, CMPX, CRP, IPF, CDP, C4 #### [address] [id number] Crusher Assembler: Sidney Epps MD #### AC1EIN #### [facility] [address] [place] [phone] Crusher Assembler: Bob Florence MD Erythrocyte distribution width (RBC) [Ratio] 14.2 % Normal 11.8-14.4 [facility] Comment on above: Performed By: #### S ED, BNP, CMPX, CRP, IPF, CDP, C4 #### [address] [id number] Crusher Assembler: Sidney Epps MD #### AC1EIN #### [facility] [address] [place] [address] Crusher Assembler: Bob Florence MD Hematocrit (Bld) [Volume fraction] 32.6 % Low 36.3-47.1 [facility] Comment on above: Performed By: #### S ED, BNP, CMPX, CRP, IPF, CDP, C4 #### [address] [address] Crusher Assembler: Sidney Epps MD #### AC1EIN #### [facility] [address] [place], [place] [id number] Crusher Assembler: Bob Florence MD Hemoglobin (Bld) [Mass/Vol] 10.2 g/dL Low 11.9-15.1 [facility] Comment on above: Performed By: #### S ED, BNP, CMPX, CRP, IPF, CDP, C4 #### [place] [address] Crusher Assembler: Sidney Epps MD #### AC1EIN #### [facility] [address] [place] [phone] Crusher Assembler: Bob Florence MD Immature granulocytes/100 WBC (Bld) 2 % High 0 [facility] Comment on above: Performed By: #### S ED, BNP, CMPX, CRP, IPF, CDP, C4 #### [place] [address] Crusher Assembler: Sidney Epps MD #### AC1EIN #### [facility] [address] [place], [place] [id number] Crusher Assembler: Bob Florence MD Lymphocytes (Bld) [#/Vol] 0.80 10*3/uL Low 1.10-3.70 [facility] Comment on above: Performed By: #### S ED, BNP, CMPX, CRP, IPF, CDP, C4 #### [place] [address] Crusher Assembler: Sidney Epps MD #### AC1EIN #### [facility] [address] [place] [address] Crusher Assembler: Bob Florence MD Lymphocytes/100 WBC (Bld) 6 % Low 24-43 [facility] Comment on above: Performed By: #### S ED, BNP, CMPX, CRP, IPF, CDP, C4 #### [address] [id number] Crusher Assembler: Sidney Epps MD #### AC1EIN #### [facility] [address] [place] [address] Crusher Assembler: Bob Florence MD MCH (RBC) [Entitic mass] 29.9 pg Normal 25.2-33.5 [facility] Comment on above: Performed By: #### S ED, BNP, CMPX, CRP, IPF, CDP, C4 #### [address] [address] Crusher Assembler: Sidney Epps MD #### AC1EIN #### [facility] [address] [place] [address] Crusher Assembler: Bob Florence MD MCHC (RBC) [Mass/Vol] 31.3 g/dL Normal 28.4-34.8 [facility] Comment on above: Performed By: #### S ED, BNP, CMPX, CRP, IPF, CDP, C4 #### [address] [address] Crusher Assembler: Sidney Epps MD #### AC1EIN #### [facility] [address] [place] [address] Crusher Assembler: Bob Florence MD MCV (RBC) [Entitic vol] 95.6 fL Normal 82.6-102.9 [facility] Comment on above: Performed By: #### S ED, BNP, CMPX, CRP, IPF, CDP, C4 #### [facility] [address] [place] [address] Crusher Assembler: Sidney Epps MD #### AC1EIN #### [facility] [address] [place] [address] Crusher Assembler: Bob Florence MD Monocytes (Bld) [#/Vol] 0.17 10*3/uL Normal 0.10-1.20 [facility] Comment on above: Performed By: #### S ED, BNP, CMPX, CRP, IPF, CDP, C4 #### [address] [address] Crusher Assembler: Sidney Epps MD #### AC1EIN #### [facility] [address] [place] [address] Crusher Assembler: Bob Florence MD Monocytes/100 WBC (Bld) 1 % Low 3-12 [facility] Comment on above: Performed By: #### S ED, BNP, CMPX, CRP, IPF, CDP, C4 #### [address] [address] Crusher Assembler: Sidney Epps MD #### AC1EIN #### [facility] [address] [place] [address] Crusher Assembler: Bob Florence MD Neutrophil (Seg) 91 % High 36-65 [facility] Comment on above: Performed By: #### S ED, BNP, CMPX, CRP, IPF, CDP, C4 #### [address] [address] Crusher Assembler: Sidney Epps MD #### AC1EIN #### [facility] [address] [place] [address] Crusher Assembler: Bob Florence MD NRBC Automated 0.0 per 100 WBC Normal 0.0 [facility] Comment on above: Performed By: #### S ED, BNP, CMPX, CRP, IPF, CDP, C4 #### [facility] [address] [place] [address] Crusher Assembler: Sidney Epps MD #### AC1EIN #### [facility] [address] [place] [address] Crusher Assembler: Bob Florence MD Platelet Count See Reflexed IPF Result Normal 138-453 [facility] Comment on above: Performed By: #### S ED, BNP, CMPX, CRP, IPF, CDP, C4 #### [facility] [address] [place] [address] Crusher Assembler: Sidney Epps MD #### AC1EIN #### [facility] [address] [place] [address] Crusher Assembler: Bob Florence MD RBC (Bld) [#/Vol] 3.41 10*6/uL Low 3.95-5.11 [facility] Comment on above: Performed By: #### S ED, BNP, CMPX, CRP, IPF, CDP, C4 #### [facility] [address] [place] [id number] Crusher Assembler: Sidney Epps MD #### [id number] #### [facility] [address] [place] [address] Crusher Assembler: Bob Florence MD WBC (Bld) [#/Vol] 12.8 10*3/uL High 3.5-11.3 [facility] Comment on above: Performed By: #### S ED, BNP, CMPX, CRP, IPF, CDP, C4 #### [facility] [address] [place] [id number] Crusher Assembler: Sidney Epps MD #### [id number] #### [facility] [address] [place] [address] Crusher Assembler: Bob Florence MD COVID-19, Rapidon 06-17-2022 Interpretation and review of laboratory results Abnormal [facility] SARS-CoV-2 (COVID-19) RdRp gene JESS+probe Ql (Resp) Detected Abnormal Not Detected [facility] Comment on above: Rapid NAAT: [...] this assay. Fact sheet for Healthcare Providers: https://www.fda.gov/media/687630/download Fact sheet for Patients: https://www.fda.gov/media/364585/download Methodology: Isothermal Nucleic Acid Amplification Results reported to the appropriate Health Department Specimen Description .NASOPHARYNGEAL SWAB [facility] CT NECK [facility] W CON[place] CT NECK ST W CON INDICATION: 85 [...] worse on the right than the left. 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 RETROPHARYNGEAL SPACE: Normal [...] SERGIO DUQUE Date: 2022-06-17 01:58 Normal [facility] Comp Metabolic Pr/rfx MGon 0 06-17-2022 Albumin [Mass/Vol] 4.3 g/dL Normal 3.5-5.2 [facility] Comment on above: Performed By: #### S ED, BNP, CMPX, CRP, IPF, CDP, C4 #### [employer] [address] [place] [address] [phone] Crusher Assembler: Sidney Epps MD #### AC1EIN #### [facility] [address] [place] [address] Crusher Assembler: Bob Florence MD Albumin/Glob Ratio 1.8 Normal 1.0-2.5 [facility] Comment on above: Performed By: #### S ED, BNP, CMPX, CRP, IPF, CDP, C4 #### [employer] [facility] [place] [address] Crusher Assembler: Sidney Epps MD #### AC1EIN #### [facility] [address] [place] [address] Crusher Assembler: Bob Florence MD Alkaline Phos 148 U/L High 35-104 [facility] Comment on above: Performed By: #### S ED, BNP, CMPX, CRP, IPF, CDP, C4 #### [address] [address] Crusher Assembler: Sidney Epps MD #### AC1EIN #### [facility] [address] [place] [address] Crusher Assembler: Bob Florence MD ALT [Catalytic activity/Vol] 10 U/L Normal 5-33 [facility] Comment on above: Performed By: #### S ED, BNP, CMPX, CRP, IPF, CDP, C4 #### [address] [address] Crusher Assembler: Sidney Epps MD #### AC1EIN #### [address] [address] Crusher Assembler: Bob Florence MD Anion gap [Moles/Vol] 17 mmol/L Normal 9-17 [facility] Comment on above: Performed By: #### S ED, BNP, CMPX, CRP, IPF, CDP, C4 #### [address] [address] Crusher Assembler: Sidney Epps MD #### AC1EIN #### [facility] [address] [place] [address] Crusher Assembler: Bob Florence MD AST [Catalytic activity/Vol] 16 U/L Normal <32 [facility] Comment on above: Performed By: #### S ED, BNP, CMPX, CRP, IPF, CDP, C4 #### [address] [id number] Crusher Assembler: Sidney Epps MD #### AC1EIN #### [facility] [address] [place] [address] Crusher Assembler: Bob Florence MD Bilirubin [Mass/Vol] 0.4 mg/dL Normal 0.3-1.2 [facility] Comment on above: Performed By: #### S ED, BNP, CMPX, CRP, IPF, CDP, C4 #### [address] [address] Crusher Assembler: Sidney Epps MD #### AC1EIN #### [facility] [address] [place] [address] Crusher Assembler: Bob Florence MD Calcium [Mass/Vol] 9.7 mg/dL Normal 8.6-10.4 [facility] Comment on above: Performed By: #### S ED, BNP, CMPX, CRP, IPF, CDP, C4 #### [address] [address] Crusher Assembler: Sidney Epps MD #### AC1EIN #### [facility] [address] [place] [address] Crusher Assembler: Bob Florence MD Chloride [Moles/Vol] 107 mmol/L Normal 98-107 [facility] Comment on above: Performed By: #### S ED, BNP, CMPX, CRP, IPF, CDP, C4 #### [address] [address] Crusher Assembler: Sidney Epps MD #### AC1EIN #### [facility] [address] [place] [address] Crusher Assembler: Bob Florence MD CO2 [Moles/Vol] 16 mmol/L Low 20-31 [facility] Comment on above: Performed By: #### S ED, BNP, CMPX, CRP, IPF, CDP, C4 #### [facility] [place] [address] Crusher Assembler: Sidney Epps MD #### AC1EIN #### [facility] [address] [place] [address] Crusher Assembler: Bob Florence MD Creatinine [Mass/Vol] 1.24 mg/dL High 0.50-0.90 [facility] Comment on above: Performed By: #### S ED, BNP, CMPX, CRP, IPF, CDP, C4 #### [facility] [address] [place] [address] [phone] Crusher Assembler: Sidney Epps MD #### AC1EIN #### [facility] [address] [place] [address] Crusher Assembler: Bob Florence MD GFR/1.73 sq M.predicted among non-blacks MDRD (S/P/Bld) [Vol rate/Area] 43 mL/min/{1.73_m2} Low >60 [facility] Comment on above: Result Comment: These results [...] CMPX, CRP, IPF, CDP, C4 #### [facility] [address] [place] [id number] Crusher Assembler: Sidney Epps MD #### AC1EIN #### [facility] [address] [place] [address] Crusher Assembler: Bob Florence MD Glucose [Mass/Vol] 165 mg/dL High 70-99 [facility] Comment on above: Performed By: #### S ED, BNP, CMPX, CRP, IPF, CDP, C4 #### [facility] [place] [address] Crusher Assembler: Sidney Epps MD #### AC1EIN #### [facility] [address], [place] [id number] Crusher Assembler: Bob Florence MD Potassium [Moles/Vol] 4.2 mmol/L Normal 3.7-5.3 [facility] Comment on above: Performed By: #### S ED, BNP, CMPX, CRP, IPF, CDP, C4 #### [facility] [address] [place] [address] Crusher Assembler: Sidney Epps MD #### AC1EIN #### [facility] [address], [place] [id number] Crusher Assembler: Bob Florence MD Protein [Mass/Vol] 6.7 g/dL Normal 6.4-8.3 [facility] Comment on above: Performed By: #### S ED, BNP, CMPX, CRP, IPF, CDP, C4 #### [address] [address] Crusher Assembler: Sidney Epps MD #### AC1EIN #### [facility] [address] [place], [place] [id number] Crusher Assembler: Bob Florence MD Sodium [Moles/Vol] 140 mmol/L Normal 135-144 [facility] Comment on above: Performed By: #### S ED, BNP, CMPX, CRP, IPF, CDP, C4 #### [facility] [address] [place] [address] Crusher Assembler: Sidney Epps MD #### AC1EIN #### [facility] [address], [place] [id number] Crusher Assembler: Bob Florence MD Urea nitrogen [Mass/Vol] 22 mg/dL Normal 8-23 [facility] Comment on above: Performed By: #### S ED, BNP, CMPX, CRP, IPF, CDP, C4 #### [facility] [address] [place] [address] Crusher Assembler: Sidney Epps MD #### AC1EIN #### [facility] [address] [place] [address] Crusher Assembler: Bob Florence MD Comprehensive Metabolic Pane l w/ Reflex to MGon 06-17-2022 Albumin [Mass/Vol] 4.3 g/dL 3.5 - 5.2 g/dL [facility] Albumin/Globulin [Mass ratio] 1.8 {ratio} 1.0 - 2.5 [facility] ALP [Catalytic activity/Vol] 148 U/L High 35 - 104 U/L [facility] ALT [Catalytic activity/Vol] 10 U/L 5 - 33 U/L [facility] Anion gap [Moles/Vol] 17 mmol/L 9 - 17 mmol/L [facility] AST [Catalytic activity/Vol] 16 U/L NINF - 32 U/L [facility] Bilirubin [Mass/Vol] 0.4 mg/dL 0.3 - 1.2 mg/dL [facility] Calcium [Mass/Vol] 9.7 mg/dL 8.6 - 10.4 mg/dL [facility] Chloride [Moles/Vol] 107 mmol/L 98 - 107 mmol/L [facility] CO2 [Moles/Vol] 16 mmol/L Low 20 - 31 mmol/L [facility] Creatinine [Mass/Vol] 1.24 mg/dL High 0.50 - 0.90 mg/dL [facility] [place] GFR/1.73 sq M.predicted MDRD (S/P/Bld) [Vol rate/Area] 43 mL/min/{1.73_m2} Low - PINF [facility] Comment on above: These results [...] 165 mg/dL High 70 - 99 mg/dL [facility] Potassium [Moles/Vol] 4.2 mmol/L 3.7 - 5.3 mmol/L [facility] Protein [Mass/Vol] 6.7 g/dL 6.4 - 8.3 g/dL [facility] Sodium [Moles/Vol] 140 mmol/L 135 - 144 mmol/L [facility] Urea nitrogen [Mass/Vol] 22 mg/dL 8 - 23 mg/dL [facility] Covid-19 PCR (CVDTB)on SARS-CoV-2 (COVID-19) RNA JESS+probe Ql (Unsp spec) Detected Abnormal NOT DETECTED [facility] Comment on above: Result Comment: This test is not yet approved or cleared by the [place] FDA. When there are no FDA-approved or cleared tests available, and other criteria are met, FDA can make tests available under an emergency access mechanism called an Emergency Use Authorization (EUA). The EUA for this test is supported by the [place] of Health and Human Service's declaration that [...] longer be used). Performed By: #### C VDTBH #### [facility] [address] [place], [place] [address] Dr. Carla Little Immature Platelet Fractionon 06-17-2022 Platelet, Fluorescence Platelet clumps present, count appears adequate. [facility] MRSA, DNA, Nasalon 3 Specimen Description .NASAL SWAB Normal [facility] Comment on above: Performed By: #### M RSANO #### [facility] [address] [place] [address] [phone] Crusher Assembler: Sidney Epps MD No Panel Informationon 06-17 Interpretation and review of laboratory results Abnormal [facility] PLT, Immature Fract.on 06-17 Platelet, Fluoresc. Platelet clumps present, count appears adequate. Normal 138-453 [facility] Comment on above: Performed By: #### S ED, BNP, CMPX, CRP, IPF, CDP, C4 #### [facility] [address] [place] [address] Crusher Assembler: Sidney Epps MD #### AC1EIN #### [facility] [address] [place] [address] Crusher Assembler: Bob Florence MD POC Glucose Fingerstickon Glucose [Mass/Vol] 130 mg/dL High 65 - 105 mg/dL [facility] Interpretation and review of laboratory results Abnormal [facility] Glucose [Mass/Vol] 149 mg/dL High 65 - 105 mg/dL [facility] Interpretation and review of laboratory results Abnormal [facility] [id number] 06-17-2022 SARS-CoV-2 (COVID-19) RNA JESS+probe Ql (Unsp spec) [facility]ed [facility] Comment on above: Result Comment: Rapid NAAT: [...] this assay. Fact sheet for Healthcare Providers: https://www.fda.gov/media/087878/download Fact sheet for Patients: https://www.fda.gov/media/071067/download Methodology: Isothermal Nucleic Acid Amplification Results reported to the appropriate Health Department Performed By: #### C OVRB ####[facility] [address] [place] [address] Lab Director: Sidney Epps MD Sedimentation Rateon 023 Sedimentation Rate 9 mm/Hr Normal 0-30 [facility] Comment on above: Performed By: #### S ED, BNP, CMPX, CRP, IPF, CDP, C4 #### [facility] [address] [place] [address] Crusher Assembler: Sidney Epps MD #### AC1EIN #### [facility] [address] [place] [address] Crusher Assembler: Bob Florence MD ESR (Bld) [Velocity] 9 mm/h [facility] XR CHEST PORTABLEon 06-17-19 23 XR CHEST [...] Sweetie Robles DO 06/17/22 Final result Normal [facility] 1. No acute intrathoracic process. 2. Large hiatal hernia. 3. Nodular density overlying right upper lung, possibly related to the posterior right 5th rib versus parenchymal nodule. Consider CT imaging for further evaluation. [facility] RIS CONSOLIDATED EXAMINATION: ONE XRAY VIEW OF THE [...] rib. No evidence of acute osseous abnormality. [facility] RIS CONSOLIDATED Sweetie Robles, DO - 06/17/2022 EXAMINATION: ONE XRAY VIEW [...] nodule. Consider CT imaging for further evaluation. [employer] Phone: Radiology Study observation (narrative) [employer] Phone: XR CHEST PORTABLEOrdered By: Sweetie Robles on 06-17-2022 [employer] Phone: BNPon 06-16-2022 Natriuretic peptide B (Bld) [Mass/Vol] 535.0 pg/mL Normal <=1,800.0 [facility] Comment on above: Performed By: #### C MADM, CMP, BNP #### [facility] [address] [place] [address] Dr. Carla Little CARDIAC KAPIL ADMITon 023 CK [Catalytic activity/Vol] 60 U/L Normal 26-192 [facility] Comment on above: Performed By: #### C MADM, CMP, BNP #### [facility] [address] [place] [address] [address] Carla Little CK.MB [Mass/Vol] 1.11 ng/mL Normal <=3.60 [facility] Comment on above: Performed By: #### C MADM, CMP, BNP #### [facility] [address] [place] [address] [address] Carla Little HSTROP 10.7 pg/mL Normal 4.0-51.3 [facility] Comment on above: Result Comment: CUT- OFF POINTS HAVE BEEN ESTABLISHED BASED ON THE FOURTH UNIVERSAL DEFINITIONS OF MYOCARDIAL INFARCTION. THE UPPER REFERENCE LIMIT (URL) OF TROPONIN, DEFINED THE 99TH PERCENTILE OF cTnI DISTRIBUTION IN A REFERENCE POPULATION, HAS BEEN CONFIRMED THE DECISION THRESHOLD FOR SC DIAGNOSIS. Performed By: #### C MADM, CMP, BNP #### [facility] [address] [place] [address] Dr. Carla Little HOANG 53 ng/mL Normal 9-82 [facility] Comment on above: Performed By: #### C MADM, CMP, BNP #### [facility] [address] [place] [address] Dr. Carla Little CBC AUTO DIFFon 06-16-2022 BASO # 0.1 103/ul Normal 0.0-0.1 [facility] Comment on above: Performed By: #### L IPID, CMP #### [facility] [address] [place] [address] Dr. Carla Little Basophils/100 WBC (Bld) 0.6 % Normal 0.2-2.0 [facility] Comment on above: Performed By: #### L IPID, CMP #### [facility] [address] [place] [address] Dr. Carla Little EO # 0.2 103/ul Normal 0.0-0.7 [facility] Comment on above: Performed By: #### L IPID, CMP #### [facility] [address] [place] [address] [address] Carla Little Eosinophils/100 WBC (Bld) 1.5 % Normal 0.9-7.0 [facility] Comment on above: Performed By: #### L IPID, CMP #### [facility] [address] [place] [address] Dr. Carla Little Erythrocyte distribution width (RBC) [Ratio] 14.2 % Normal 11.0-15.0 [facility] Comment on above: Performed By: #### L IPID, CMP #### [facility] [address] [place] [address] Dr. Carla Little Hematocrit (Bld) [Volume fraction] 36.9 % Normal 36.0-48.0 [facility] Comment on above: Performed By: #### L IPID, CMP #### [facility] [address] [place] [address] Dr. Carla Little Hemoglobin (Bld) [Mass/Vol] 11.5 g/dL Critically low 12.0-16.0 [facility] Comment on above: Performed By: #### L IPID, CMP #### [facility] [address] [place] [address] Dr. Carla Little IG # 0.11 10e3/ul Critically high 0.00-0.03 [facility] Comment on above: Performed By: #### L IPID, CMP #### [facility] [address] [place] [address] Dr. Carla Little IG % 1.0 % Critically high 0.0-0.5 [facility] Comment on above: Performed By: #### L IPID, CMP #### [facility] [address] [place] [address] Dr. Carla Little LYMPH # 1.5 103/ul Normal 1.2-3.8 [facility] Comment on above: Performed By: #### L IPID, CMP #### [facility] [address] [place] [address] Dr. Carla Little Lymphocytes/100 WBC (Bld) 13.7 % Critically low 20.5-60.0 [facility] Comment on above: Performed By: #### L IPID, CMP #### [facility] [address] [place] [address] Dr. Carla Little MANUAL DIFF REQ NO Normal [facility] Comment on above: Performed By: #### L IPID, CMP #### [facility] [address] [place] [address] Dr. Carla Little MCH (RBC) [Entitic mass] 29.6 pg Normal 26.7-34.0 [facility] Comment on above: Performed By: #### L IPID, CMP #### [facility] [address] [place] [address] Dr. Carla Little MCHC (RBC) [Mass/Vol] 31.2 g/dL Normal 29.9-35.2 [facility] Comment on above: Performed By: #### L IPID, CMP #### [facility] [address] [place] [address] Dr. Carla Little MCV (RBC) [Entitic vol] 94.9 fL Normal 81.0-99.0 [facility] Comment on above: Performed By: #### L IPID, CMP #### [facility] [address] [place] [address] Dr. Carla Little MONO # 0.9 103/ul Critically high 0.3-0.8 [facility] Comment on above: Performed By: #### L IPID, CMP #### [facility] [address] [place] [address] Dr. Carla Little Monocytes/100 WBC (Bld) 8.5 % Normal 1.7-12.0 [facility] Comment on above: Performed By: #### L IPID, CMP #### [facility] [address] [place] [address] Dr. Carla Little NEUT # 8.0 103/ul Critically high 1.4-6.5 [facility] Comment on above: Performed By: #### L IPID, CMP #### [facility] [address] [place] [address] Dr. Carla Little Neutrophils/100 WBC (Bld) 74.7 % Normal 43.0-75.0 [facility] Comment on above: Performed By: #### L IPID, CMP #### [facility] [address] [place] [address] Dr. Carla Little Platelet mean volume (Bld) [Entitic vol] 10.1 fL Normal 9.5-13.5 [facility] Comment on above: Performed By: #### L IPID, CMP #### [facility] [address] [place] [address] Dr. Carla Little PLT 304 103/ul Normal 150-450 [facility] Comment on above: Performed By: #### L IPID, CMP #### [facility] [address] [place] [address] Dr. Carla Little RBC 3.89 106/ul Critically low 4.20-5.40 [facility] Comment on above: Performed By: #### L IPID, CMP #### [facility] [address] [place] [address] Dr. Carla Little WBC 10.7 103/ul Normal 4.0-11.0 [facility] Comment on above: Performed By: #### L IPID, CMP #### [facility] [address] [place] [address] Dr. Carla Little PROF 14(COMP METB)on 023 Albumin [Mass/Vol] 3.8 g/dL Normal 3.4-5.0 [facility] Comment on above: Performed By: #### C MADM, CMP, BNP #### [facility] [address] [place] [address] Dr. Carla Little Albumin/Globulin [Mass ratio] 1.3 {ratio} Normal [facility] Comment on above: Performed By: #### C MADM, CMP, BNP #### [facility] [address] [place] [address] Dr. Carla Little ALP [Catalytic activity/Vol] 176 U/L Critically high 46-116 [facility] Comment on above: Performed By: #### C MADM, CMP, BNP #### [facility] [address] [place] [address] [address] Carla Little ALT [Catalytic activity/Vol] 13 U/L Critically low 14-59 [facility] Comment on above: Performed By: #### C MADM, CMP, BNP #### [facility] [address] [place] [address] Dr. Carla Little Anion gap [Moles/Vol] 18.9 mmol/L Normal [facility] Comment on above: Performed By: #### C MADM, CMP, BNP #### [facility] [address] [place] [address] Dr. Carla Little AST [Catalytic activity/Vol] 15 U/L Normal 15-37 [facility] Comment on above: Performed By: #### C MADM, CMP, BNP #### [facility] [address] [place] [address] Dr. Carla Little Bilirubin [Mass/Vol] 0.3 mg/dL Normal 0.2-1.0 [facility] Comment on above: Performed By: #### C MADM, CMP, BNP #### [facility] [address] [place] [address] Dr. Carla Little Calcium [Mass/Vol] 9.1 mg/dL Normal 8.5-10.1 [facility] Comment on above: Performed By: #### C MADM, CMP, BNP #### [facility] [address] [place] [address] Dr. Carla Little Chloride [Moles/Vol] 105 mmol/L Normal 98-107 [facility] Comment on above: Performed By: #### C MADM, CMP, BNP #### [facility] [address] [place] [address] Dr. Carla Little CO2 [Moles/Vol] 21.8 mmol/L Normal 21.0-32.0 [facility] Comment on above: Performed By: #### C MADM, CMP, BNP #### [facility] [address] [place] [address] Dr. Carla Little Creatinine [Mass/Vol] 1.54 mg/dL Critically high 0.55-1.02 [facility] Comment on above: Performed By: #### C MADM, CMP, BNP #### [facility] [address] [address] [address] Carla Little EGFR-AF ECUADOREAN 39 mL/min/1.73m2 Critically low >=60 [facility] Comment on above: Performed By: #### C MADM, CMP, BNP #### [facility] [address] [address] [address] Carla Little EGFR-NON AF ECUADOREAN 32 mL/min/1.73m2 Critically low >=60 [facility] Comment on above: Performed By: #### C MADM, CMP, BNP #### [facility] [address] [place] [address] Dr. Carla Little Globulin (S) [Mass/Vol] 3.0 g/dL Normal [facility] Comment on above: Performed By: #### C MADM, CMP, BNP #### [facility] [address] [place] [address] Dr. Carla Little Glucose [Mass/Vol] 117 mg/dL Critically high 74-106 [facility] Comment on above: Performed By: #### C MADM, CMP, BNP #### [facility] [address] [place] [address] Dr. Carla Little Potassium [Moles/Vol] 3.7 mmol/L Normal 3.5-5.1 [facility] Comment on above: Performed By: #### C MADM, CMP, BNP #### [facility] [address] [place] [address] Dr. Carla Little Protein [Mass/Vol] 6.8 g/dL Normal 6.4-8.2 [facility] Comment on above: Performed By: #### C MADM, CMP, BNP #### [facility] [address] [place] [address] Dr. Carla Little Sodium [Moles/Vol] 142 mmol/L Normal 136-145 [facility] Comment on above: Performed By: #### C MADM, CMP, BNP #### [facility] [address] [place] [address] Dr. Carla Little Urea nitrogen [Mass/Vol] 24.0 mg/dL Critically high 7.0-18.0 [facility] Comment on above: Performed By: #### C ISABEL CMP, BNP #### [facility] [address] [place] [address] Dr. Carla Little Urea nitrogen/Creatinin e [Mass ratio] 15.6 mg/mg Normal [facility] Comment on above: Performed By: #### C ISABEL, CMP, BNP #### [facility] [address] [place] [address] Dr. Carla Little PROTIMEon 06-16-2022 INR Coag (PPP) [Relative time] 0.95 {INR} Normal [facility] Comment on above: Performed By: #### L IPID, CMP #### [facility] [address] [place] [address] Dr. Carla Little INR GUIDELINES SEE BELOW Normal [facility] Comment on above: Result Comment: KAREN RED INR: 2.0 - 3.0 CONDITIONS NOT LISTED BELOW 2.5 - 3.5 FOR PROSTHETIC HEART VALVE REPLACEMENT 2.5 - 3.5 RECURRENT THROMBOSIS Performed By: #### L JETT CMP #### [facility] [address] [place] [address] Dr. Carla Little PT Coag (PPP) [Time] 10.1 s Normal 9.0-11.6 [facility] Comment on above: Performed By: #### L IPID, CMP #### [facility] [address] [place] [address] Dr. Carla Little PTTon 06-16-2022 aPTT Coag (Bld) [Time] 24.2 s Normal 22.3-36.2 [facility] Comment on above: Performed By: #### L IPID, CMP #### [facility] [address] [place] [address] Dr. Carla Little TYPE AND SCREENon 06-16-2022 TYPE AND SCREEN Negative Normal [facility] Comment on above: Performed By: #### L IPID, CMP #### [facility] [address] [place] [address] Dr. Carla Little XR CHEST 1 Von [...] by: BENJAMIN ROGERS Date: 2022-06-16 19:49 Normal [facility] Complete Blood Count Auto Di ffon 11-24-2020 Basophils (Bld) [#/Vol] 0.1 10*3/uL Normal 0.0-0.2 [facility] Comment on above: Result Comment: PERF ORMED BY: [place] [address] PATHOLOGIST UNIT MANAGER LANDY GONZALEZ M.D. Performed By: #### H S TROP #### [address] Basophils/100 WBC (Bld) 0.5 % Normal . [facility] Comment on above: Performed By: #### H S TROP #### [address] Eosinophils (Bld) [#/Vol] 0.2 10*3/uL Normal 0.0-0.45 [facility] Comment on above: Performed By: #### H S TROP #### [place] [address] [place] Eosinophils/100 WBC (Bld) 1.5 % Normal . [facility] Comment on above: Performed By: #### H S TROP #### [address] Erythrocyte distribution width (RBC) [Ratio] 19.8 % High 11.9-15.3 [facility] Comment on above: Performed By: #### H S TROP #### [address] Hematocrit (Bld) [Volume fraction] 33.9 % Low 34.0-46.4 [facility] Comment on above: Performed By: #### H S TROP #### [address] Hemoglobin (Bld) [Mass/Vol] 11.0 g/dL Low 11.8-15.4 [facility] Comment on above: Performed By: #### H S TROP #### [address] Lymphocytes (Bld) [#/Vol] 1.1 10*3/uL Normal 1.00-4.8 [facility] Comment on above: Performed By: #### H S TROP #### [address] Lymphocytes/100 WBC (Bld) 6.8 % Normal . [facility] Comment on above: Performed By: #### H S TROP #### [address] MCH (RBC) [Entitic mass] 27.3 pg Normal 24.7-34.3 [facility] Comment on above: Performed By: #### H S TROP #### [address] MCV (RBC) [Entitic vol] 84.3 fL Normal 80-100 [facility] Comment on above: Performed By: #### H S TROP #### [address] Mean Corpuscular HGB Conc 32.4 g/dL Normal 32.0-35.0 [facility] Comment on above: Performed By: #### H S TROP #### [address] Monocytes (Bld) [#/Vol] 1.4 10*3/uL High 0.0-0.8 [facility] Comment on above: Performed By: #### H S TROP #### [place] [address] Monocytes/100 WBC (Bld) 9.1 % Normal . [facility] Comment on above: Performed By: #### H S TROP #### [address] Neutrophils (Bld) [#/Vol] 13.1 10*3/uL High 1.8-7.7 [facility] Comment on above: Performed By: #### H S TROP #### [address] Neutrophils/100 WBC (Bld) 82.1 % Normal . [facility] Comment on above: Performed By: #### H S TROP #### [address] Nucleated RBC/100 WBC (Bld) [Ratio] 0.0 % Normal 0-0.5 [facility] Comment on above: Performed By: #### H S TROP #### [address] Platelet mean volume (Bld) [Entitic vol] 7.8 fL Normal 6.3-10.7 [facility] Comment on above: Performed By: #### H S TROP #### [address] Platelets (Bld) [#/Vol] 193 10*3/uL Normal 150-450 [facility] Comment on above: Performed By: #### H S TROP #### [place] [address] [place] RBC (Bld) [#/Vol] 4.02 10*6/uL Normal 3.60-5.00 [facility] Comment on above: Performed By: #### H S TROP #### [place] [address] [place] WBC (Bld) [#/Vol] 15.9 10*3/uL High 4.5-11.0 [facility] Comment on above: Performed By: #### H S TROP #### [place] [address] [place] ECG 12 lead ECGon 11-24-2020 ECG 12 lead ECG [facility] Main [place] [address] [place] [address] Electrocardiograph Report Signed Patient: Piedad Alatorre MR#: [id number] : 1935 Acct:[id number] Age/Sex: 85 / F ADM Date: 11/22/20 Loc: Room: [address] [place] [address] Type: DIS IN Attending Dr: Hemant Rodríguez [...] 11/24/2020 6:05:46 PM Referred By: Electronically Signed By:GIBLERT HENRIQUEZ MD Transcribed By: MUS Dictated By: Gilbert Henriquez MD 11/24/20 0758 Signed By: 11/24/20 1805 Normal [facility] Basic Metabolic Panelon 11-09 Calcium [Mass/Vol] 8.2 mg/dL Normal 8.2-10.2 [facility] Comment on above: Performed By: #### H S TROP #### [facility] [address] [place] [address] [place] Chloride [Moles/Vol] 101 mmol/L Normal 95-114 [facility] Comment on above: Performed By: #### H S TROP #### [facility] [address] [place] [address] [place] CO2 [Moles/Vol] 21.2 mmol/L Low 22.0-30.0 [facility] Comment on above: Performed By: #### H S TROP #### [address] Creatinine [Mass/Vol] 1.87 mg/dL High 0.44-1.03 [facility] Comment on above: Performed By: #### H S TROP #### [place] [address] [place] Creatinine Clr Calc Pharmacy 19.90 [facility] Comment on above: Result Comment: PERF ORMED BY: [place] [address] PATHOLOGIST UNIT MANAGER LANDY GONZALEZ M.D. Performed By: #### H S TROP #### [address] Estimated GFR ( Lissette 31 [facility] Comment on above: Result Comment: GFR estimated reference range: According to KDOQI guidelines, <60 ml/min/1.73m2 is sufficient to diagnose a patient with chronic kidney disease. Performed By: #### H S TROP #### [address] Estimated GFR (Non- Am 26 [facility] Comment on above: Performed By: #### H S TROP #### [address] Glucose [Mass/Vol] 111 mg/dL High 70-100 [facility] Comment on above: Result Comment: Brady Glucose Reference Range is dependent on time and content of last meal. Glucose of more than 200 mg/dL in a nonstressed, ambulatory subject supports the diagnosis of Diabetes Mellitus. ADA recommended reference range Performed By: #### H S TROP #### [place] [address] [place] Potassium [Moles/Vol] 4.4 mmol/L Normal 3.5-5.1 [facility] Comment on above: Performed By: #### H S TROP #### [place] [address] [place] Sodium [Moles/Vol] 136 mmol/L Normal 136-146 [facility] Comment on above: Performed By: #### H S TROP #### [address] Urea nitrogen [Mass/Vol] 36 mg/dL High 9- [facility] Comment on above: Performed By: #### H S TROP #### [address] Complete Blood Count Auto Di ffon 11-23-2020 Basophils (Bld) [#/Vol] 0.0 10*3/uL Normal 0.0-0.2 [facility] Comment on above: Result Comment: PERF ORMED BY: [place] [address] PATHOLOGIST UNIT MANAGER LANDY GONZALEZ M.D. Performed By: #### C BC #### [address] Basophils/100 WBC (Bld) 0.2 % Normal . [facility] Comment on above: Performed By: #### C BC #### [address] Eosinophils (Bld) [#/Vol] 0.0 10*3/uL Normal 0.0-0.45 [facility] Comment on above: Performed By: #### C BC #### [address] Eosinophils/100 WBC (Bld) 0.3 % Normal . [facility] Comment on above: Performed By: #### C BC #### [address] Erythrocyte distribution width (RBC) [Ratio] 20.5 % High 11.9-15.3 [facility] Comment on above: Performed By: #### C BC #### [address] Hematocrit (Bld) [Volume fraction] 36.1 % Normal 34.0-46.4 [facility] Comment on above: Performed By: #### C BC #### [address] Hemoglobin (Bld) [Mass/Vol] 11.7 g/dL Low 11.8-15.4 [facility] Comment on above: Performed By: #### C BC #### [facility] [address] Lymphocytes (Bld) [#/Vol] 0.8 10*3/uL Low 1.00-4.8 [facility] Comment on above: Performed By: #### C BC #### [facility] [address] Lymphocytes/100 WBC (Bld) 5.0 % Normal . [facility] Comment on above: Performed By: #### C BC #### [address] MCH (RBC) [Entitic mass] 27.2 pg Normal 24.7-34.3 [facility] Comment on above: Performed By: #### C BC #### [address] MCV (RBC) [Entitic vol] 84.1 fL Normal 80-100 [facility] Comment on above: Performed By: #### C BC #### [address] Mean Corpuscular HGB Conc 32.4 g/dL Normal 32.0-35.0 [facility] Comment on above: Performed By: #### C BC #### [address] Monocytes (Bld) [#/Vol] 1.2 10*3/uL High 0.0-0.8 [facility] Comment on above: Performed By: #### C BC #### [address] Monocytes/100 WBC (Bld) 7.1 % Normal . [facility] Comment on above: Performed By: #### C BC #### [address] Neutrophils (Bld) [#/Vol] 14.5 10*3/uL High 1.8-7.7 [facility] Comment on above: Performed By: #### C BC #### [facility] [address] Neutrophils/100 WBC (Bld) 87.4 % Normal . [facility] Comment on above: Performed By: #### C BC #### [facility] [address] Nucleated RBC/100 WBC (Bld) [Ratio] 0.0 % Normal 0-0.5 [facility] Comment on above: Performed By: #### C BC #### [facility] [address] Platelet mean volume (Bld) [Entitic vol] 7.9 fL Normal 6.3-10.7 [facility] Comment on above: Performed By: #### C BC #### [facility] [address] [place] [address] [place] Platelets (Bld) [#/Vol] 204 10*3/uL Normal 150-450 [facility] Comment on above: Performed By: #### C BC #### [facility] [address] [place] [address] [place] RBC (Bld) [#/Vol] 4.29 10*6/uL Normal 3.60-5.00 [facility] Comment on above: Performed By: #### C BC #### [place] [address] [place] WBC (Bld) [#/Vol] 16.6 10*3/uL High 4.5-11.0 [facility] Comment on above: Performed By: #### C BC #### [place] [address] [place] ECG 12 lead ECGon 11-23-2020 ECG 12 lead ECG [facility] Main [place] [address] [place] [address] Electrocardiograph Report Signed Patient: Piedad Alatorre MR#: [id number] : 1935 Acct:[id number] Age/Sex: 85 / F ADM Date: 11/22/20 Loc: Room: [address] [place] [address] Type: ADM IN Attending Dr: Hemant Rodríguez [...] MUS Dictated By: Gilbert Henriquez MD 11/23/20 075 Signed By: 11/23/20 1833 [facility] echo transthoracicon [facility] echo transthoracic [facility] [place] [place] [address] Echocardiogram Signed Patient: Piedad Alatorre MR#: [id number] : 1935 Acct:[id number] Age/Sex: 85 / F ADM Date: 11/22/20 Loc: Room: 6J4315-4 Type: ADM IN Attending Dr: Hemant Rodríguez DO Ordering Provider: Hemant Rodríguez DO Date of Service: 11/23/20 [facility] echo transthoracic: inf STEMI/VFIB Copies to: DO [...] RAP systole: 5.0 mmHg Transcribed By: ZAC 11/23/20 172 Dictated By: Sergio Wiggins DO 11/23/20 0908 Signed By: 11/23/20 1726 Normal [facility] Glucose Poct Glucometerson 0 11-23-2020 Glucose [Mass/Vol] 126 mg/dL Normal [facility] Comment on above: Result Comment: Brady Glucose Reference Range is dependent on time and content of last meal. Glucose of more than 200 mg/dL in a nonstressed, ambulatory subject supports the diagnosis of Diabetes Mellitus. PERFORMED BY: [place] [address] PATHOLOGIST UNIT MANAGER LANDY GONZALEZ M.D. Performed By: #### G BRAYAN #### Point of Care testing , Troponin I High Sensitivityo n 11-23-2020 Troponin I High Sensitivity 02569 pg/mL Off scale high 0-15 [facility] Comment on above: Result Comment: PERF ORMED BY: [place] [address] PATHOLOGIST UNIT MANAGER LANDY GONZALEZ M.D. Performed By: #### H S TROP #### [facility] [address] [place] [address] Basic Metabolic Panelon 11-09 Calcium [Mass/Vol] 8.5 mg/dL Normal 8.2-10.2 [facility] Comment on above: Performed By: #### B MP #### [facility] [address] [place] [address] Chloride [Moles/Vol] 103 mmol/L Normal 95-114 [facility] Comment on above: Performed By: #### B MP #### [facility] [address] [place] [address] CO2 [Moles/Vol] 21.0 mmol/L Low 22.0-30.0 [facility] Comment on above: Performed By: #### B MP #### [facility] [address] [place] [address] Creatinine [Mass/Vol] 1.47 mg/dL High 0.44-1.03 [facility] Comment on above: Performed By: #### B MP #### [facility] [address] [place] [address] [place] Creatinine Clr Calc Pharmacy 25.32 Normal [facility] Comment on above: Result Comment: PERF ORMED BY: [place] [address] PATHOLOGIST UNIT MANAGER LANDY GONZALEZ M.D. Performed By: #### B MP #### [facility] [address] [place] [address] [place] Estimated GFR ( Lissette 41 [facility] Comment on above: Result Comment: GFR estimated reference range: According to KDOQI guidelines, <60 ml/min/1.73m2 is sufficient to diagnose a patient with chronic kidney disease. Performed By: #### B MP #### [facility] [address] [place] [id number] [facility] Estimated GFR (Non- Am 34 [facility] Comment on above: Performed By: #### B MP #### [facility] [address] [place] [id number] [place] Glucose [Mass/Vol] 161 mg/dL High 70-100 [facility] Comment on above: Result Comment: Brady Glucose Reference Range is dependent on time and content of last meal. Glucose of more than 200 mg/dL in a nonstressed, ambulatory subject supports the diagnosis of Diabetes Mellitus. ADA recommended reference range Performed By: #### B MP #### [facility] [address] Potassium [Moles/Vol] 4.9 mmol/L Normal 3.5-5.1 [facility] Comment on above: Performed By: #### B MP #### [facility] [address] [place] [id number] [place] Sodium [Moles/Vol] 136 mmol/L Normal 136-146 [facility] Comment on above: Performed By: #### B MP #### [facility] [address] [place] [id number] [place] Urea nitrogen [Mass/Vol] 27 mg/dL High 9-23 [facility] Comment on above: Performed By: #### B MP #### [facility] [address] [place] [id number] [place] ECG 12 lead ECGon 11-22-2020 ECG 12 lead ECG [facility] Main [place] [address] [place] [address] Electrocardiograph Report Signed Patient: Piedad Alatorre MR#: [id number] : 1935 Acct:[id number] Age/Sex: 85 / F ADM Date: 11/22/20 Loc: Room: [address] [place] [address] Type: ADM IN Attending Dr: Hemant Rodríguez [...] 11/22/20 0742 Signed By: 11/22/20 1456 Normal [facility] Glucose Poct Glucometerson 0 11-22-2020 Glucose [Mass/Vol] 118 mg/dL Normal [facility] Comment on above: Result Comment: [facility] Glucose Reference Range is dependent on time and content of last meal. Glucose of more than 200 mg/dL in a nonstressed, ambulatory subject supports the diagnosis of Diabetes Mellitus. PERFORMED BY: [address] [address] PATHOLOGIST UNIT MANAGER LANDY GONZALEZ M.D. Performed By: #### G LULS #### Point of Care testing , Glucose [Mass/Vol] 126 mg/dL Normal [facility] Comment on above: Result Comment: [facility] Glucose Reference Range is dependent on time and content of last meal. Glucose of more than 200 mg/dL in a nonstressed, ambulatory subject supports the diagnosis of Diabetes Mellitus. PERFORMED BY: [address] [place] [address] PATHOLOGIST UNIT MANAGER LANDY GONZALEZ M.D. Performed By: #### G LULS #### Point of Care testing , Troponin I High Sensitivityo n 11-22-2020 Troponin I High Sensitivity 80092 pg/mL Off scale high 0-15 [facility] Comment on above: Result Comment: PERF ORMED BY: [facility] [address] [place] [address] PATHOLOGIST UNIT MANAGER LANDY GONZALEZ M.D. Performed By: #### H S TROP #### [facility] [address] [place], [place] [id number] [place] Troponin I High Sensitivity 89695 pg/mL Off scale high 0-15 [facility] Comment on above: Result Comment: PERF ORMED BY: [facility] [address] [place] [address] PATHOLOGIST UNIT MANAGER LANDY GONZALEZ M.D. Performed By: #### H S TROP #### [facility] [address] [place] [address] [place] Troponin I High Sensitivity 20737 pg/mL Off scale high 0-15 [facility] Comment on above: Result Comment: PERF ORMED BY: [place] [address] PATHOLOGIST UNIT MANAGER LANDY GONZALEZ M.D. Performed By: #### H S TROP #### [place] [id number] [place] Troponin I High Sensitivity 89762 pg/mL Off scale high 0-15 [facility] Comment on above: Result Comment: Resu lts called at 0905 on 11/22/20 PERFORMED BY: [place] [address] PATHOLOGIST UNIT MANAGER LANDY GONZALEZ M.D. Performed By: #### H S TROP #### [facility] [address] [place], [place] [id number] [place] Vital Signs Date Time Vital Sign Value Performing Clinician Facility 08-01-2023 12:57-0400 Blood Pressure Location Deonte ROSARIO [facility] 08-01-2023 12:57-0400 Body temperature 97.88 [degF] Deonte ROSARIO [facility] 08-01-2023 12:57-0400 Diastolic blood pressure 72 mm[Hg] Deonte ROSARIO [facility] 08-01-2023 12:57-0400 Heart rate 77 /min Deonte ROSARIO [facility] 08-01-2023 12:57-0400 SaO2% (BldA) [Mass fraction] 96 % Deonte ROSARIO [facility] 08-01-2023 12:57-0400 Systolic blood pressure 114 mm[Hg] Deonte ROSARIO [facility] 06-25-2023 09:11-0500 Body temperature 97.7 [degF] [facility] 06-25-2023 09:11-0500 Diastolic blood pressure 81 mm[Hg] [facility] 06-25-2023 09:11-0500 Heart rate 91 /min [facility] 06-25-2023 09:11-0500 Respiratory rate 17 /min [facility] 06-25-2023 09:11-0500 SaO2% (BldA) [Mass fraction] 98 % [facility] 06-25-2023 09:11-0500 Systolic blood pressure 161 mm[Hg] [facility] 06-25-2023 08:21-0500 Blood Pressure Location Deonte ROSARIO [facility] 06-25-2023 08:21-0500 Body temperature 97.52 [degF] Deonte ROSARIO [facility] 06-25-2023 08:21-0500 Diastolic blood pressure 78 mm[Hg] Deonte ROSARIO [facility] 06-25-2023 08:21-0500 Heart rate 84 /min Deonte ROSARIO [facility] 06-25-2023 08:21-0500 SaO2% (BldA) [Mass fraction] 95 % Deonte ROSARIO [facility] 06-25-2023 08:21-0500 Systolic blood pressure 130 mm[Hg] Deonte ROSARIO [facility] 03-04-2023 13:11-0400 Blood Pressure Location Deonte ROSARIO [facility] 03-04-2023 13:11-0400 Diastolic blood pressure 78 mm[Hg] Deonte ROSARIO [facility] 03-04-2023 13:11-0400 Heart rate 76 /min Deonte ROSARIO [facility] 03-04-2023 13:11-0400 SaO2% (BldA) [Mass fraction] 97 % Deonte ROSARIO [facility] 03-04-2023 13:11-0400 Systolic blood pressure 142 mm[Hg] Deonte ROSARIO [facility] 02-10-2023 14:25-0400 Blood Pressure Location Bloom Luciamini [facility] 02-10-2023 14:25-0400 Diastolic blood pressure 81 mm[Hg] Bloom Sarmini [facility] 02-10-2023 14:25-0400 Heart rate 79 /min Bloom Sarmini [facility] 02-10-2023 14:25-0400 Respiratory rate 22 /min Bloom Sarmini [facility] 02-10-2023 14:25-0400 SaO2% (BldA) [Mass fraction] 97 % Bloom Sarmini [facility] 02-10-2023 14:25-0400 Systolic blood pressure 175 mm[Hg] Bloom Sarmini [facility] 02-10-2023 14:20-0400 Blood Pressure Location Bloom Sarmini [facility] 02-10-2023 14:20-0400 Diastolic blood pressure 84 mm[Hg] Bloom Sarmini [facility] 02-10-2023 14:20-0400 Heart rate 76 /min Bloom Sarmini [facility] 02-10-2023 14:20-0400 Respiratory rate 20 /min Bloom Sarmini [facility] 02-10-2023 14:20-0400 SaO2% (BldA) [Mass fraction] 96 % Bloom Sarmini [facility] 02-10-2023 14:20-0400 Systolic blood pressure 166 mm[Hg] Bloom Sarmini [facility] 02-10-2023 14:15-0400 Blood Pressure Location Bloom Sarmini [facility] 02-10-2023 14:15-0400 Diastolic blood pressure 37 mm[Hg] Bloom Sarmini [facility] 02-10-2023 14:15-0400 Heart rate 77 /min Bloom Sarmini [facility] 02-10-2023 14:15-0400 Respiratory rate 16 /min Bloom Sarmini [facility] 02-10-2023 14:15-0400 SaO2% (BldA) [Mass fraction] 97 % Bloom Sarmini [facility] 02-10-2023 14:15-0400 Systolic blood pressure 153 mm[Hg] Bloom Sarmini [facility] 02-10-2023 14:00-0400 Body temperature 97.7 [degF] Bloom Sarmini [facility] 02-10-2023 13:55-0400 Respiratory rate 16 /min Bloom Sarmini [facility] 02-10-2023 13:50-0400 Respiratory rate 16 /min Bloom Sarmini [facility] 02-10-2023 13:44-0400 Respiratory rate 10 /min Bloom Sarmini [facility] 02-10-2023 13:15-0400 Body temperature 97.52 [degF] Bloom Sarmini [facility] 02-07-2023 12:59-0400 Blood Pressure Location Elvi Lovelace [facility] 02-07-2023 12:59-0400 Body temperature 97.52 [degF] Elvi Missler [facility] 02-07-2023 12:59-0400 Diastolic blood pressure 70 mm[Hg] Elvi Missler [facility] 02-07-2023 12:59-0400 Heart rate 67 /min Elvi Missler [facility] 02-07-2023 12:59-0400 SaO2% (BldA) [Mass fraction] 97 % Elvi Missler [facility] 02-07-2023 12:59-0400 Systolic blood pressure 132 mm[Hg] Elvi Missler [facility] 12-10-2022 10:07-0400 Blood Pressure Location Wolf Myersmini [facility] 12-10-2022 10:07-0400 Diastolic blood pressure 76 mm[Hg] Bloom Sarmini [facility] 12-10-2022 10:07-0400 Heart rate 69 /min Bloom Sarmini [facility] 12-10-2022 10:07-0400 Respiratory rate 16 /min Bloom Sarmini [facility] 12-10-2022 10:07-0400 SaO2% (BldA) [Mass fraction] 99 % Bloom Luciamini [facility] 12-10-2022 10:07-0400 Systolic blood pressure 133 mm[Hg] Bloom Sarmini [facility] 11-22-2022 13:57-0400 Diastolic blood pressure 76 mm[Hg] Deonte ROSARIO [facility] 11-22-2022 13:57-0400 Mean blood pressure 95 mm[Hg] Deonte ROSARIO [facility] 11-22-2022 13:57-0400 Systolic blood pressure 132 mm[Hg] Deonte ROSARIO [facility] 11-22-2022 13:53-0400 Blood Pressure Location Deonte ROSARIO [facility] 11-22-2022 13:53-0400 Body temperature 97.52 [degF] Deonte ROSARIO [facility] 07-14-2023 13:53-0400 Diastolic blood pressure 76 mm[Hg] Deonte ROSARIO [facility] 11-22-2022 13:53-0400 Heart rate 60 /min Deonte ROSARIO [facility] 11-22-2022 13:53-0400 SaO2% (BldA) [Mass fraction] 98 % Deonte ROSARIO [facility] 11-22-2022 13:53-0400 Systolic blood pressure 142 mm[Hg] Deonte ROSARIO [facility] 07-31-2022 13:54-0400 Blood Pressure Location Deonte ROSARIO [facility] 07-31-2022 13:54-0400 Diastolic blood pressure 70 mm[Hg] Deonte ROSARIO [facility] 07-31-2022 13:54-0400 Heart rate 84 /min Deonte ROSRAIO [facility] 07-31-2022 13:54-0400 Respiratory rate 18 /min Deonte ROSARIO [facility] 07-31-2022 13:54-0400 SaO2% (BldA) [Mass fraction] 98 % Deonte ROSARIO [facility] 07-31-2022 13:54-0400 Systolic blood pressure 134 mm[Hg] Deonte ROSARIO [facility] 07-31-2022 12:49-0400 Blood Pressure Location Deonte ROSARIO [facility] 07-31-2022 12:49-0400 Body temperature 97.7 [degF] Deonte ROSARIO [facility] 07-31-2022 12:49-0400 Diastolic blood pressure 70 mm[Hg] Deonte ROSARIO [facility] 07-31-2022 12:49-0400 Heart rate 84 /min Deonte ROSARIO [facility] 07-31-2022 12:49-0400 SaO2% (BldA) [Mass fraction] 98 % Deonte ROSARIO [facility] 07-31-2022 12:49-0400 Systolic blood pressure 134 mm[Hg] Deonte ROSARIO [facility] 06-20-2022 08:00-0500 Body temperature 98.6 [degF] Rod Bhatti MD Work Phone: [facility] [employer] [place] 06-20-2022 08:00-0500 Diastolic blood pressure 68 mm[Hg] Rod Bhatti MD Work Phone: [facility] [employer] [place] 06-20-2022 08:00-0500 Heart rate 92 /min Rod Bhatti MD Work Phone: [facility] [place] 06-20-2022 08:00-0500 Respiratory rate 23 /min Rod Bhatti MD Work Phone: [facility] 06-20-2022 08:00-0500 SaO2% (BldA) [Mass fraction] 99 % Rod Bhatti MD Work Phone: [facility] [place] 06-20-2022 08:00-0500 Systolic blood pressure 139 mm[Hg] Rod Bhatti MD Work Phone: [facility] [place] 06-20-2022 06:00-0500 Body mass index (BMI) [Ratio] 23.86 kg/m2 Rod Bhatti MD Work Phone: [facility] 06-20-2022 06:00-0500 Body weight 63.05 kg Rod Bhatti MD Work Phone: [facility] 06-17-2022 08:00-0500 Body height 162.6 cm Rod Bhatti MD Work Phone: [facility] 05-16-2022 13:20-0500 Blood Pressure Location Juancho Florin [facility] 05-16-2022 13:20-0500 Diastolic blood pressure 78 mm[Hg] Juancho Catherine [facility] 05-16-2022 13:20-0500 Heart rate 71 /min Juancho Catherine [facility] 05-16-2022 13:20-0500 Respiratory rate 18 /min Juancho Catherine [facility] 05-16-2022 13:20-0500 SaO2% (BldA) [Mass fraction] 98 % Juancho Catherine [facility] 05-16-2022 13:20-0500 Systolic blood pressure 124 mm[Hg] Juancho Catherine [facility] 05-01-2022 09:48-0500 Blood Pressure Location Deonte ROSARIO [facility] 05-01-2022 09:48-0500 Body temperature 98.06 [degF] Deonte ROSARIO [facility] 05-01-2022 09:48-0500 Diastolic blood pressure 70 mm[Hg] Deonte ROSARIO [facility] Care 05-01-2022 09:48-0500 Heart rate 74 /min Deonte ROSARIO [facility] 05-01-2022 09:48-0500 SaO2% (BldA) [Mass fraction] 97 % Deonte ROSARIO [facility] 05-01-2022 09:48-0500 Systolic blood pressure 112 mm[Hg] Deonte ROSARIO [facility] 03-18-2022 10:50-0500 Diastolic blood pressure 68 mm[Hg] Dinero SALAM [facility] 03-18-2022 10:50-0500 Heart rate 91 /min Dinero SALAM [facility] 03-18-2022 10:50-0500 Respiratory rate 20 /min Dinero SALAM [facility] 03-18-2022 10:50-0500 SaO2% (BldA) [Mass fraction] 96 % Dinero SALAM [facility] 03-18-2022 10:50-0500 Systolic blood pressure 160 mm[Hg] Dinero SALAM [facility] 03-18-2022 10:35-0500 Diastolic blood pressure 68 mm[Hg] Dinero SALAM [facility] 03-18-2022 10:35-0500 Heart rate 78 /min Dinero SALAM [facility] 03-18-2022 10:35-0500 Respiratory rate 15 /min Dinero SALAM [facility] 03-18-2022 10:35-0500 SaO2% (BldA) [Mass fraction] 96 % Dinero SALAM [facility] 03-18-2022 10:35-0500 Systolic blood pressure 131 mm[Hg] Dinero SALAM [facility] 03-18-2022 10:30-0500 Diastolic blood pressure 54 mm[Hg] Dinero SALAM [facility] 03-18-2022 10:30-0500 Heart rate 78 /min Dinero SALAM [facility] 03-18-2022 10:30-0500 Respiratory rate 16 /min Dinero SALAM [facility] 03-18-2022 10:30-0500 SaO2% (BldA) [Mass fraction] 97 % Dinero SALAM [facility] 03-18-2022 10:30-0500 Systolic blood pressure 107 mm[Hg] Dinero SALAM [facility] 03-18-2022 10:23-0500 Blood Pressure Location Dinero SALAM [facility] 03-18-2022 10:23-0500 Body temperature 96.8 [degF] Dinero SALAM [facility] 03-18-2022 09:11-0500 Blood Pressure Location Dinero SALAM [facility] 03-18-2022 09:11-0500 Body temperature 98.06 [degF] Dinero SALAM [facility] 03-18-2022 09:11-0500 Respiratory rate 22 /min Dinero SALAM [facility] 01-30-2022 10:52-0400 Blood Pressure Location Dinero SALAM [facility] 01-30-2022 10:52-0400 Diastolic blood pressure 84 mm[Hg] Dinero SALAM [facility] 01-30-2022 10:52-0400 Heart rate 74 /min Dinero SALAM [facility] 01-30-2022 10:52-0400 Respiratory rate 16 /min Dinero SALAM [facility] 01-30-2022 10:52-0400 Systolic blood pressure 138 mm[Hg] Dinero SALAM [facility] 01-22-2022 11:40-0400 Blood Pressure Location Deonte ROSARIO [facility] 01-22-2022 11:40-0400 Body temperature 97.7 [degF] Deonte ROSARIO [facility] 01-22-2022 11:40-0400 Diastolic blood pressure 70 mm[Hg] Deonte ROSARIO [facility] 01-22-2022 11:40-0400 Heart rate 71 /min Deonte ROSARIO [facility] 01-22-2022 11:40-0400 SaO2% (BldA) [Mass fraction] 96 % Deonte ROSARIO [facility] 01-22-2022 11:40-0400 Systolic blood pressure 124 mm[Hg] Deonte ROSARIO [facility] 01-18-2022 13:40-0400 Diastolic blood pressure 74 mm[Hg] Juancho Catherine [facility] 01-18-2022 13:40-0400 Mean blood pressure 100 mm[Hg] Juancho Catherine [facility] 01-18-2022 13:40-0400 Systolic blood pressure 151 mm[Hg] Juancho Catherine [facility] 01-18-2022 13:30-0400 Blood Pressure Location Juancho Catherine [facility] 01-18-2022 13:30-0400 Diastolic blood pressure 74 mm[Hg] Juancho Catherine [facility] 01-18-2022 13:30-0400 Heart rate 87 /min Juancho Catherine [facility] 01-18-2022 13:30-0400 Respiratory rate 18 /min Juancho Catherine [facility] 01-18-2022 13:30-0400 SaO2% (BldA) [Mass fraction] 100 % Juancho Catherine [facility] 01-18-2022 13:30-0400 Systolic blood pressure 156 mm[Hg] Juancho Catherine [facility] 12-28-2021 10:17-0400 Blood Pressure Location Juancho Catherine [facility] 12-28-2021 10:17-0400 Diastolic blood pressure 72 mm[Hg] Juancho Catherine [facility] 12-28-2021 10:17-0400 Heart rate 82 /min Juancho Catherine [facility] 12-28-2021 10:17-0400 Respiratory rate 18 /min Juancho Catherine [facility] 12-28-2021 10:17-0400 SaO2% (BldA) [Mass fraction] 97 % Juancho Catherine [facility] 12-28-2021 10:17-0400 Systolic blood pressure 131 mm[Hg] Juancho Catherine [facility] 11-30-2021 15:10-0400 Diastolic blood pressure 80 mm[Hg] Juancho Catherine [facility] 11-30-2021 15:10-0400 Mean blood pressure 115 mm[Hg] Juancho Catherine [facility] 11-30-2021 15:10-0400 Systolic blood pressure 186 mm[Hg] Juancho Catherine [facility] 11-30-2021 15:00-0400 Blood Pressure Location Juancho Catherine [facility] 11-30-2021 15:00-0400 Diastolic blood pressure 95 mm[Hg] Juancho Catherine [facility] 11-30-2021 15:00-0400 Heart rate 96 /min Juancho Catherine [facility] 11-30-2021 15:00-0400 Respiratory rate 18 /min Juancho Catherine [facility] 11-30-2021 15:00-0400 SaO2% (BldA) [Mass fraction] 98 % Juanchojackson Catherine [facility] 11-30-2021 15:00-0400 Systolic blood pressure 195 mm[Hg] Juancho Florin [facility] 10-17-2021 11:00-0400 Blood Pressure Location Deonte ROSARIO [facility] 10-17-2021 11:00-0400 Body temperature 97.88 [degF] Deonte ROSARIO [facility] 10-17-2021 11:00-0400 Diastolic blood pressure 78 mm[Hg] Deonte ROSARIO [facility] 10-17-2021 11:00-0400 Heart rate 62 /min Deonte ROSARIO [facility] 10-17-2021 11:00-0400 SaO2% (BldA) [Mass fraction] 99 % Deonte ROSARIO [facility] 10-17-2021 11:00-0400 Systolic blood pressure 122 mm[Hg] Deonte ROSARIO [facility] Encounters Encounter Date Encounter Type Care Provider Facility Start: 08-03-2024 ambulatory Deonte K [facility] Start: 09-23-2023 ambulatory Deonte ROSARIO Facility: [facility] Start: 08-01-2023 End: 08-02-2023 ambulatory Deonte ROSARIO Facility:[facility] Start: 08-01-2023 End: 08-01-2023 Patient encounter procedure Deonte ROSARIO [facility] Start: 08-01-2023 End: 08-01-2023 Well adult monitoring check done Deonte ROSARIO [facility] Start: 07-31-2023 End: 07-31-2023 ambulatory ELEONORA EASTON Not Available Start: 07-10-2023 End: 07-10-2023 ambulatory ELEONORA EASTON Not Available Start: 07-03-2023 End: 07-03-2023 ambulatory ELEONORA EASTON Not Available Start: 06-26-2023 End: 06-26-2023 ambulatory ELEONORA EASTON Not Available Start: 06-26-2023 End: 06-26-2023 Office outpatient visit 10 minutes Eleonora Easton MD Work Phone: [facility] Comment on above: Blepharospasm (Prima ry Dx); Anterior corneal dystrophy of right eye Start: 06-25-2023 End: 06-25-2023 ambulatory ELEONORA EASTON Not Available Start: 06-25-2023 Bamboo flowsheet Eleonora Easton MD Work Phone: [facility] Start: 06-25-2023 Bamboo flowsheet Eleonora Easton MD Work Phone: [facility] Start: 06-25-2023 End: 06-25-2023 Patient encounter procedure Eleonora Easton MD Work Phone: [facility] Comment on above: 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); Abrasion of right cornea, initial encounter Start: 06-25-2023 End: 06-25-2023 Emergency department patient visit Nikita Conti Facility:[facility] Start: 06-25-2023 End: 06-26-2023 ambulatory Deonte Dyana ROSARIO Facility:[facility] Start: 06-25-2023 End: 06-25-2023 [facility] Start: 06-25-2023 End: 06-25-2023 Patient encounter procedure Deonte ROSARIO [facility] Start: 04-15-2023 End: 04-16-2023 ambulatory Brunilda Redding Facility:[facility] Start: 04-11-2023 End: 04-12-2023 ambulatory Deonte ROSARIO Facility:[facility] Start: 04-11-2023 End: 04-11-2023 Patient encounter procedure Deonte ROSARIO [facility] Start: 03-04-2023 End: 03-05-2023 ambulatory Deonte ROSARIO Facility:[facility] Start: 03-04-2023 End: 03-04-2023 Patient encounter procedure Deonte ROSARIO [facility] Start: 02-10-2023 End: 02-11-2023 ambulatory Bloommichael Cmi Facility:[facility] Start: 02-10-2023 End: 02-10-2023 Patient encounter procedure Bloom Talal Luciamini [facility] Start: 02-07-2023 End: 02-08-2023 ambulatory [employer]UMENT [employer]CH[employer]-C Elvi Vergara jodi Facility:[facility] Start: 02-07-2023 End: 02-07-2023 Patient encounter procedure Elvi Ursula Lovelace [facility] Start: 01-15-2023 End: 01-16-2023 ambulatory Wolf Cmi Facility:[facility] Start: 12-10-2022 End: 12-11-2022 ambulatory Wolf Peres Facility:[facility] Start: 12-10-2022 End: 12-10-2022 Patient encounter procedure Wolf Cmi [facility] Start: 11-22-2022 End: 11-23-2022 ambulatory Deonte ROSARIO Facility:[facility] Start: 11-22-2022 End: 11-22-2022 Patient encounter procedure Deonte ROSARIO [facility] Start: 09-20-2022 End: 09-20-[address] DEONTE ROSARIO Facility:[facility] Start: 07-31-2022 End: 07-31-2022 Patient encounter procedure Deonte ROSARIO [facility] Start: 07-31-2022 End: 07-31-2022 Well adult monitoring check done Deonte ROSARIO [facility] Start: 06-17-2022 End: 06-20-2022 Evaluation and management of inpatient JONG SCOTT HAY [facility] Start: 06-17-2022 End: 06-20-2022 Evaluation and management of inpatient Rod Bhatti MD Work Phone: [facility] Start: 06-16-2022 End: 06-17-[address] DEONTE ROSARIO Facility:[facility] Start: 05-16-2022 End: 05-16-2022 Patient encounter procedure Juancho Catherine [facility] Start: 05-01-2022 End: 05-01-2022 Patient encounter procedure Deonte ROSARIO [facility] Start: 03-18-2022 End: 03-18-2022 Patient encounter procedure Rosette HARE [facility] Start: 01-30-2022 End: 01-30-2022 Patient encounter procedure Rosette HARE [facility] Start: 01-22-2022 End: 01-22-2022 Patient encounter procedure Deonte ROSARIO [facility] Start: 01-18-2022 End: 01-18-2022 Patient encounter procedure Juancho Catherine [facility] Start: 01-16-2022 End: 01-16-2022 Patient encounter procedure Juancho Catherine [facility] Start: 12-28-2021 End: 12-28-2021 Patient encounter procedure Juancho Catherine [facility] Start: 11-30-2021 End: 11-30-2021 Patient encounter procedure Juancho Catherine [facility] Start: 10-17-2021 End: 10-17-2021 Patient encounter procedure Deonte ROSARIO [facility] Procedures Date Procedure Procedure Detail Performing Clinician Start: 06-20-2022 BASIC METABOLIC PANEL W/ REFLEX TO MG FOR LOW K Abebe Coker MD Work Phone: Start: 06-20-2022 Blood count complete auto&auto difrntl wbc Abebe Coker MD Work Phone: Start: 06-19-2022 Ct thorax w/o contrast material Abebe pineda [...] Lumbar Facet Medial Branch Block 6 Deonte ROSARIO Comment on above: b/l L3/4, L4/5, lL5/S1 [...] ROSARIO Comment on above: 10/2010 Esophagogastroduodenoscopy M michelle Peres Comment on above: esophageal dilation , large hiatal herni a , Schatzki ring Excision of bunion Deonte JARQUIN Extraction of cataract Deonte ROSARIO Fluoroscopic angiogr aphy of carotid artery Deonte ROSARIO History of appendectomy Appendec conner( Confirmed ) Deonte ROSARIO kidney artery left stent placement Deonte ROSARIO Removal of ovarian cyst Deonte ROSARIO Stents, bilateral legs Deonte ROSARIO Plan of Treatment Date Care Activity Detail Author Start: 06-30-2023 End: 06-30-2023 Patient encounter procedure 06/30/2023 9:45 AM EST Office Visit [facility] [address] [place] [address] Alessio Amezquita DO [address] [place], [place] [id number] [facility] Start: 06-26-2023 End: 06-26-2023 Patient encounter procedure 06/26/2023 1:00 PM EST Office Visit [facility] [address] [place] [address] Eleonora Easton MD [address] [place] [address] [facility] Start: 06-25-2023 End: 06-25-2023 Patient encounter procedure 06/25/2023 1:15 PM EST Office Visit [facility] [address] [place] [address] Eleonora Easton MD [address] [place] [address] Arrived [facility] Comment on above: Arrived Start: 06-17-2022 Annual Wellness Visi t (AWV) Annual Wellness Visit (AWV) [facility] Start: 07-10-2021 COVID-19 Vaccine (5 - Booster for Pfizer series) COVID-19 Vaccine (5 - Booster for Pfizer series) [facility] Start: 10-06-1991 Screening for osteoporosis DEXA (modify frequency per FRAX score) [facility] Start: 1986 Shingles vaccine (1 of 2) Shingles vaccine (1 of 2) [facility] Start: 10-06-1955 DTaP/Tdap/Td vaccine (1 - Tdap) DTaP/Tdap/Td vaccine (1 - Tdap) [facility] Start: 1948 Depression Screen Depression Screen [facility] Start: 1946 Lipid panel Lipids [facility] [employer] Amniotic Membrane Graft, 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, Self-Retaining - OD - Right Eye Ophthalmology Routine Anterior corneal dystrophy of right eye Abrasion of right cornea, initial encounter Ordered: 06/25/2023 [facility] Work Phone: Comment on above: Ordered: 06/25/2023 End: 06-18-2022 OCCULT BLOOD SCREEN OCCULT BLOOD SCREEN Lab Routine One Time for 1 Occurrences starting 06/18/2022 until 06/18/2022 [facility] [employer] Phone: Comment on above: One Time for 1 Occur rences starting 06/18/2022 until 06/18/2022 Oxygen therapy [[facility] Data Set] Initiate Oxygen Therapy Protocol Respiratory Care Routine As Needed until discontinued starting 06/17/2022 [employer] Phone: Comment on above: As Needed until disc ontinued starting 06/17/2022 End: 06-17-2022 Respiratory care evaluation only Respiratory care evaluation only Respiratory Care Routine One Time for 1 Occurrences starting 06/17/2022 until 06/17/2022 [employer] Phone: Comment on above: One Time for 1 Occur rences starting 06/17/2022 until 06/17/2022 End: 06-17-2022 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 Routine One Time for 1 Occurrences starting 06/17/2022 until 06/17/2022 [employer] Phone: Comment on above: One Time for 1 Occur rences starting 06/17/2022 until 06/17/2022 Immunizations Immunization Date Immunization Notes Care Provider [facility] 04-11-2023 zoster vaccine recombinant Krillion [facility] 03-04-2023 influenza, high dose seasonal, preservative-free Deonte ROSARIO [facility] 02-28-2022 SARS-CoV-2 (COVID-19 ) [id number] Elvi Lovelace [facility] 01-22-2022 influenza, high dose seasonal, preservative-free Deonte ROSARIO [facility] 01-10-2022 influenza virus vacc ine, unspecified formulation Dinero MURPHY [facility] 05-15-2021 COVID-19, mRNA, LNP- S, PF, 30 mcg/0.3 mL dose Deonte ROSARIO [facility] 03-13-2021 pneumococcal conjuga te vaccine, 13 valent Deonte ROSARIO [facility] 03-13-2021 influenza, high dose seasonal, preservative-free Deonte ROSARIO [facility] 07-12-2020 SARS-CoV-2 (COVID-19 ) mRNA BNT-162b2 vax Deonte ROSARIO [facility] Comment on above: Result Comment: Huyen sifuentes 06-22-2020 pneumococcal polysaccharide vaccine, 23 valent Deonte ROSARIO [facility] 06-14-2020 SARS-CoV-2 (COVID-19 ) mRNA BNT-162b2 vax Deonte ROSARIO [facility] Comment on above: Result Comment: Huyen sifuentes 05-25-2020 canakinumab Krillion [facility] Comment on above: Result Comment: COVI D 19 PFIZER 05-25-2020 SARS-CoV-2 (COVID-19 ) mRNA BNT-162b2 vax [employer] [facility] Comment on above: Result Comment: 2021: [id number] 03-15-2020 influenza virus vacc ine, unspecified formulation [employer] [facility] 02-10-2020 influenza virus vacc ine, unspecified formulation [employer] [facility] 03-18-2019 influenza virus vacc ine, unspecified formulation [employer] [facility] 03-15-2019 influenza virus vacc ine, live, attenuated, for intranasal use [employer] [facility] 03-10-2018 influenza virus vacc ine, unspecified formulation [employer] [facility] 02-16-2016 influenza virus vacc ine, unspecified formulation [employer] [facility] 02-16-2016 pneumococcal conjuga te vaccine, 13 valent Deonte [employer] [facility] 05-12-2014 pneumococcal conjuga te vaccine, 13 valent Krillion [facility] 01-21-2011 pneumococcal polysaccharide vaccine, 23 valent Deonte [employer] [facility] Comment on above: Reason for Medicatio n: Other (see comment) Payers Date Payer Category Payer Unknown [id number] 2021 Medicaid [id number] 2001 Medicare MEDICARE MEDICAR E PART B [id number] 2000-[place] [address] Medicare [id number] 1959 Medicare [id number] 1936 Unknown [id number] 2.16.840.1.266075.3.579.2.175 1936 Unknown [id number] 2.16.840.1.576109.3.579.2.593 1936 Unknown [id number] 2.16.840.1.036943.3.579.2.593 1936 Unknown [id number] 2.16.840.1.060104.3.579.2.1259 1936 Unknown [id number] 2.16.840.1.792682.3.579.2.1259 1936 Unknown [id number] 2.16.840.1.860615.3.579.2.1259 1936 Unknown [id number] 2.16.840.1.901894.3.579.2.1259 1936 Unknown [id number] 2.16.840.1.596944.3.579.2.1259 1936 Unknown [id number] 2.16.840.1.965301.3.579.2.727 1936 Unknown [id number] 2.16.840.1.736522.3.579.2.727 1936 Unknown [id number] 2.16.840.1.224778.3.579.2. 1936 Unknown [id number] 2.16.840.1.280375.3.579.2. 1936 Unknown [id number] 2.16.840.1.810496.3.579.2. 1936 Unknown [id number] 2.16.840.1.184465.3.579.2. 1936 Unknown [id number] 2.16.840.1.674020.3.579.2. 1936 Unknown [id number] 2.16.840.1.032200.3.579.2. 1936 Unknown [id number] 2.16.840.1.776596.3.579.2. 1936 Unknown [id number] 2.16.840.1.494693.3.579.2. 1936 Unknown [id number] 2.16.840.1.639648.3.579.2. 1936 Unknown [id number] 2.16.840.1.917088.3.579.2. 1936 Unknown [id number] 2.16.840.1.179347.3.579.2. Social History Date Type Detail Facility Start: 07-03-2021 End: 08-01-2023 Tobacco smoking status Never smoked tobacco (finding) [facility] Comment on above: denies use Tobacco smoking status Never [facility] Comment on above: denies use Sex Assigned At Female [facility] Tobacco smoking status NHIS Tobacco smoking consumption unknown [facility] Start: 1935 Sex Assigned At Not on file B [employer] Work Phone: Goals Date Patient Goal Desired Activity /State 05-17-2019 Functional Status Date Assessment Result Facility 08-01-2023 Functional Status N/A [facility] 06-25-2023 Functional Status N/A [facility] 03-04-2023 Functional Status N/A [facility] 02-10-2023 Functional Status N/A [facility] 02-07-2023 Functional Status N/A [facility] 12-10-2022 Functional Status N/A [facility] 11-22-2022 Functional Status N/A [facility] 07-31-2022 Functional Status N/A [facility] 07-31-2022 Functional Status [facility] 05-16-2022 Functional Status N/A [facility] 05-01-2022 Functional Status N/A [facility] 03-18-2022 Functional Status N/A [facility] 01-30-2022 Functional Status N/A [facility] 01-22-2022 Functional Status N/A [facility] 01-18-2022 Functional Status N/A [facility] 12-28-2021 Functional Status N/A [facility] 11-30-2021 Functional Status N/A [facility] Clinical Notes 01-05-2020 to 08-01-2023 Eleonora Easton MD - 06/26/2023 8:45 AM Tai Easton MD - 06/25/2023 1:15 PM ESTTealicia Carrion - 06/19/2022 5:15 PM Jennifer Villar RN - 06/19/2022 12:09 PM ESTTalisha Instructions Note Date & Type Note Facility 08-01-2023 Hospital Discharge instructions Patient Education 08/01/2023 14:31:39 Chronic Kidney Disease, Adult Chronic Kidney Disease, Adult Chronic kidney disease (CKD) occurs when the kidneys are slowly and permanently damaged over a long period of time. The kidneys are a pair of organs that do many important jobs in the body, including: Removing waste and extra fluid from the blood to make urine. Making hormones that maintain the amount of fluid in tissues and blood vessels. Maintaining the right amount of fluids and chemicals in the body. A small amount of kidney damage may not cause problems, but a large amount of damage may make it hard or impossible for the kidneys to work right. Steps must be taken to slow kidney damage or to stop it from getting worse. If steps are not taken, the kidneys may stop working permanently (end-stage renal disease, or ESRD). Most of the time, CKD does not go away, but it can often be controlled. People who have CKD are usually able to live full lives. What are the causes? The most common causes of this condition are diabetes and high blood pressure (hypertension). Other causes include: Cardiovascular diseases. These affect the heart and blood vessels. Kidney diseases. These include: ?Glomerulonephritis, or inflammation of the tiny filters in the kidneys. ?Interstitial nephritis. This is swelling of the small tubes of the kidneys and of the surrounding structures. ?Polycystic kidney disease, in which clusters of fluid-filled sacs form within the kidneys. ?Renal vascular disease. This includes disorders that affect the arteries and veins of the kidneys. Diseases that affect the body's defense system (immune system). A problem with urine flow. This may be caused by: ?Kidney stones. ?Cancer. ?An enlarged prostate, in males. A kidney infection or urinary tract infection (UTI) that keeps coming back. Vasculitis. This is swelling or inflammation of the blood vessels. What increases the risk? Your chances of having kidney disease increase with age. The following factors may make you more likely to develop this condition: A family history of kidney disease or kidney failure. Kidney failure means the kidneys can no longer work right. Certain genetic diseases. Taking medicines often that are damaging to the kidneys. Being around or being in contact with toxic substances. Obesity. A history of tobacco use. What are the signs or symptoms? Symptoms of this condition include: Feeling very tired (lethargic) and having less energy. Swelling, or edema, of the face, legs, ankles, or feet. Nausea or vomiting, or loss of appetite. Confusion or trouble concentrating. Muscle twitches and cramps, especially in the legs. Dry, itchy skin. A metallic taste in the mouth. Producing less urine, or producing more urine (especially at night). Shortness of breath. Trouble sleeping. CKD may also result in not having enough red blood cells or hemoglobin in the blood (anemia) or having weak bones (bone disease). Symptoms develop slowly and may not be obvious until the kidney damage becomes severe. It is possible to have kidney disease for years without having symptoms. How is this diagnosed? This condition may be diagnosed based on: Blood tests. Urine tests. Imaging tests, such as an ultrasound or a CT scan. A kidney biopsy. This involves removing a sample of kidney tissue to be looked at under a microscope. Results from these tests will help to determine how serious the CKD is. How is this treated? There is no cure for most cases of this condition, but treatment usually relieves symptoms and prevents or slows the worsening of the disease. Treatment may include: Diet changes, which may require you to avoid alcohol and foods that are high in salt, potassium, phosphorous, and protein. Medicines. These may: ?Lower blood pressure. ?Control blood sugar (glucose). ?Relieve anemia. ?Relieve swelling. ?Protect your bones. ?Improve the balance of salts and minerals in your blood (electrolytes). Dialysis, which is a type of treatment that removes toxic waste from the body. It may be needed if you have kidney failure. Managing any other conditions that are causing your CKD or making it worse. Follow these instructions at home: Medicines Take nvgw-jzs-upgiavy and prescription medicines only as told by your health care provider. The amount of some medicines that you take may need to be changed. Do not take any new medicines unless approved by your health care provider. Many medicines can make kidney damage worse. Do not take any vitamin and mineral supplements unless approved by your health care provider. Many nutritional supplements can make kidney damage worse. Lifestyle Do not use any products that contain nicotine or tobacco, such as cigarettes, e-cigarettes, and chewing tobacco. If you need help quitting, ask your health care provider. If you drink alcohol: ?Limit how much you use to: ?0 1 drink a day for women who are not . ?0 2 drinks a day for men. ?Know how much alcohol is in your drink. In the [place] one drink equals one 12 oz bottle of beer (355 mL), one 5 oz glass of wine (148 mL), or one 1 oz glass of hard liquor (44 mL). Maintain a healthy weight. If you need help, ask your health care provider. General instructions Follow instructions from your health care provider about eating or drinking restrictions, including any prescribed diet. Track your blood pressure at home. Report changes in your blood pressure as told. If you are being treated for diabetes, track your blood glucose levels as told. Start or continue an exercise plan. Exercise at least 30 minutes a day, 5 days a week. Keep your immunizations up to date as told. Keep all follow-up visits. This is important. Where to find more information [place] Association of Kidney Patients: www.aakp.org National Kidney Foundation: www.kidney.org [place] Kidney Fund: www.akfinc.org Life Options: www.lifeoptions.org Kidney School: www.kidneyschool.org Contact a health care provider if: Your symptoms get worse. You develop new symptoms. Get help right away if: You develop symptoms of ESRD. These include: ?Headaches. ?Numbness in your hands or feet. ?Easy bruising. ?Frequent hiccups. ?Chest pain. ?Shortness of breath. ?Lack of menstrual periods, in women. You have a fever. You are producing less urine than usual. You have pain or bleeding when you urinate or when you have a bowel movement. These symptoms may represent a serious problem that is an emergency. Do not wait to see if the symptoms will go away. Get medical help right away. Call your local emergency services (911 in the [place] Do not drive yourself to the hospital. Summary Chronic kidney disease (CKD) occurs when the kidneys become damaged slowly over a long period of time. The most common causes of this condition are diabetes and high blood pressure (hypertension). There is no cure for most cases of CKD, but treatment usually relieves symptoms and prevents or slows the worsening of the disease. Treatment may include a combination of lifestyle changes, medicines, and dialysis. This information is not intended to replace advice given to you by your health care provider. Make sure you discuss any questions you have with your health care provider. Document Revised: 08/02/2020 Document Reviewed: 08/02/2020 [employer] Patient Education 2022 [employer]. 08/01/2023 14:31:28 Hyperglycemia Hyperglycemia Hyperglycemia occurs when the level of sugar (glucose) in the blood is too high. Glucose is a type of sugar that provides the body's main source of energy. Certain hormones (insulin and glucagon) control the level of glucose in the blood. Insulin lowers blood glucose, and glucagon increases blood glucose. Hyperglycemia can result from not having enough insulin in the bloodstream, or from the body not responding normally to insulin. Hyperglycemia occurs most often in people who have diabetes (diabetes mellitus), but it can happen in people who do not have diabetes. It can develop quickly, and it can be life-threatening if it causes you to become severely dehydrated (diabetic ketoacidosis or hyperglycemic hyperosmolar state). Severe hyperglycemia is a medical emergency. For most people with diabetes, a blood glucose level above 240 mg/dL is considered hyperglycemia. What are the causes? If you have diabetes, hyperglycemia may be caused by: Medicines that increase blood glucose or affect your diabetes control. Getting less physical activity. Eating more than planned. Being sick or injured, having an infection, or having surgery. Stress. Not giving yourself enough insulin (if you are taking insulin). If you have undiagnosed diabetes, this may be the reason you have hyperglycemia. If you do not have diabetes, hyperglycemia may be caused by: Certain medicines, including: ?Steroid medicines. ?Beta-blockers. ?Epinephrine. ?Thiazide diuretics. Stress. Having a serious illness, an infection, or surgery. Diseases of the pancreas. What increases the risk? Hyperglycemia is more likely to develop in people who have risk factors for diabetes, such as: Having a family member with diabetes. Certain conditions in which the body's disease-fighting system (immune system) attacks itself (autoimmune disorders). Being overweight or obese. Having an inactive (sedentary) lifestyle. Having been diagnosed with insulin resistance. Having a history of prediabetes, gestational diabetes, or polycystic ovarian syndrome (PCOS). What are the signs or symptoms? Hyperglycemia may not cause any symptoms. If you do have symptoms, they may include: Increased thirst. Needing to urinate more often than usual. Hunger. Feeling very tired. Blurry vision. Other symptoms may develop if hyperglycemia gets worse, such as: Dry mouth. Abdominal pain. Loss of appetite. Fruity-smelling breath. Weakness. Unexpected weight loss. Tingling or numbness in the hands or feet. Headache. Cuts or bruises that are slow to heal. How is this diagnosed? Hyperglycemia is diagnosed with a blood test to measure your blood glucose level. This blood test is usually done while you are having symptoms. Your health care provider may also do a physical exam and review your medical history. You may have more tests to determine the cause of your hyperglycemia, such as: A fasting blood glucose (FBG) test. You will not be allowed to eat (you will fast) for at least 8 hours before a blood sample is taken. An A1C blood test. This provides information about blood glucose control over the previous 2 3 months. An oral glucose tolerance test (OGTT). This measures your blood glucose at two times: ?After fasting. This is your baseline blood glucose level. ?2 hours after drinking a beverage that contains glucose. How is this treated? Treatment depends on the cause of your hyperglycemia. Treatment may include: Taking medicine to regulate your blood glucose levels. If you take insulin or other diabetes medicines, your medicine or dosage may be adjusted. Lifestyle changes, such as exercising more, eating healthier foods, or losing weight. Treating an illness or infection. Checking your blood glucose more often. Stopping or reducing steroid medicines. If your hyperglycemia becomes severe and it results in diabetic ketoacidosis or hyperglycemic hyperosmolar state, you must be hospitalized and given IV fluids and IV insulin. Follow these instructions at home: General instructions Take ncva-ymj-jxhhjmn and prescription medicines only as told by your health care provider. Do not use any products that contain nicotine or tobacco. These products include cigarettes, chewing tobacco, and vaping devices, such as e-cigarettes. If you need help quitting, ask your health care provider. If you drink alcohol: ?Limit how much you have to: ?0 1 drink a day for women who are not . ?0 2 drinks a day for men. ?Know how much alcohol is in a drink. In the [place] one drink equals one 12 oz bottle of beer (355 mL), one 5 oz glass of wine (148 mL), or one 1 oz glass of hard liquor (44 mL). Learn to manage stress. If you need help with this, ask your health care provider. Do exercises as told by your health care provider. Keep all follow-up visits. This is important. Eating and drinking Maintain a healthy weight. Stay hydrated, especially when you exercise, get sick, or spend time in hot temperatures. Drink enough fluid to keep your urine pale yellow. If you have diabetes: Know the symptoms of hyperglycemia. Follow your diabetes management plan as told by your health care provider. Make sure you: ?Take your insulin and medicines as told. ?Follow your exercise plan. ?Follow your meal plan. Eat on time, and do not skip meals. ?Check your blood glucose as often as told. Make sure to check your blood glucose before and after exercise. If you exercise longer or in a different way, check your blood glucose more often. ?Follow your sick day plan whenever you cannot eat or drink normally. Make this plan in advance with your health care provider. Share your diabetes management plan with people in your workplace, school, and household. Check your urine for ketones when you are ill and as told by your health care provider. Carry a medical alert card or wear medical alert jewelry. Where to find more information [place] Diabetes Association: www.diabetes.org Contact a health care provider if: Your blood glucose is at or above 240 mg/dL (13.3 mmol/L) for 2 days in a row. You have problems keeping your blood glucose in your target range. You have frequent episodes of hyperglycemia. You have signs of illness, such as nausea, vomiting, or fever. Get help right away if: Your blood glucose monitor reads high even when you are taking insulin. You have trouble breathing. You have a change in how you think, feel, or act (mental status). You have nausea or vomiting that does not go away. These symptoms may represent a serious problem that is an emergency. Do not wait to see if the symptoms will go away. Get medical help right away. Call your local emergency services (911 in the [place] Do not drive yourself to the hospital. Summary Hyperglycemia occurs when the level of sugar (glucose) in the blood is too high. Hyperglycemia can happen with or without diabetes, and severe hyperglycemia can be life-threatening. Hyperglycemia is diagnosed with a blood test to measure your blood glucose level. This blood test is usually done while you are having symptoms. Your health care provider may also do a physical exam and review your medical history. If you have diabetes, follow your diabetes management plan as told by your health care provider. Contact your health care provider if you have problems keeping your blood glucose in your target range. This information is not intended to replace advice given to you by your health care provider. Make sure you discuss any questions you have with your health care provider. Document Revised: 02/09/2021 Document Reviewed: 02/09/2021 [employer] Patient Education 2022 [employer]. 08/01/2023 14:31:24 BMI for Adults BMI for Adults What is BMI? Body mass index (BMI) is a number that is calculated from a person's weight and height. BMI can help estimate how much of a person's weight is composed of fat. BMI does not measure body fat directly. Rather, it is an alternative to procedures that directly measure body fat, which can be difficult and expensive. BMI can help identify people who may be at higher risk for certain medical problems. What are BMI measurements used for? BMI is used as a screening tool to identify possible weight problems. It helps determine whether a person is obese, overweight, a healthy weight, or underweight. BMI is useful for: Identifying a weight problem that may be related to a medical condition or may increase the risk for medical problems. Promoting changes, such as changes in diet and exercise, to help reach a healthy weight. BMI screening can be repeated to see if these changes are working. How is BMI calculated? BMI involves measuring your weight in relation to your height. Both height and weight are measured, and the BMI is calculated from those numbers. This can be done either in [place] ([place] or metric measurements. Note that charts and online BMI calculators are available to help you find your BMI quickly and easily without having to do these calculations yourself. To calculate your BMI in [place] ([place] measurements: 1.Measure your weight in pounds (lb). 2.Multiply the number of pounds by 703. For example, for a person who weighs 180 lb, multiply that number by 703, which equals 126,540. 3.Measure your height in inches. Then multiply that number by itself to get a measurement called inches squared. For example, for a person who is 70 inches tall, the inches squared measurement is 70 inches x 70 inches, which equals 4,900 inches squared. 4.Divide the total from step 2 (number of lb x 703) by the total from step 3 (inches squared): 126,540 4,900 = 25.8. This is your BMI. To calculate your BMI in metric measurements: 1.Measure your weight in kilograms (kg). 2.Measure [...] 3.1 = 22.6. This is your BMI. What do the results mean? BMI charts are used to identify whether you are underweight, normal weight, overweight, or obese. The following guidelines will be used: Underweight: BMI less than 18.5. Normal weight: BMI between 18.5 and 24.9. Overweight: BMI between 25 and 29.9. Obese: BMI of 30 or above. Keep these notes in mind: Weight includes both fat and muscle, so [...] the same way for men and women. Where to find more information For more information about BMI, including tools to quickly calculate your BMI, go to these websites: Centers for Disease Control and Prevention: www.cdc.gov [place] Heart Association: www.heart.org National Heart, Lung, and Blood [place]: www.nhlbi.nih.gov Summary Body mass index (BMI) is a number that is calculated from a person's weight and height. BMI may help estimate how much of a person's weight is composed of fat. BMI can help identify those who may be at higher risk for certain medical problems. BMI can be measured using [place] measurements or metric measurements. BMI charts are used to identify whether you are underweight, normal weight, overweight, or obese. This information is not intended to replace advice given to you by your health care provider. Make sure you discuss any questions you have with your health care provider. Document Revised: 01/19/2020 Document Reviewed: 11/26/2019 [employer] Patient Education 2022 [employer]. [facility] 06-26-2023 History of Present illness Narrative Assessment/Plan need to treat the spasm with botox and tarsorrhaphy as well Assessment/Plan documented in this encounter [facility] 06-25-2023 Hospital Discharge instructions Patient Education 06/25/2023 12:27:52 Corneal Abrasion Corneal Abrasion A corneal abrasion is a scratch or injury to the clear covering over the front of the eye (cornea). Your cornea forms a clear dome that protects your eye and helps to focus your vision. Your cornea is made up of many layers, but the surface layer is one of the most sensitive tissues in your body. A corneal abrasion can be very painful. If a corneal abrasion is not treated, it can become infected and cause an ulcer. This can lead to scarring. A scarred cornea can affect your vision. Sometimes abrasions come back in the same area, even after the original injury has healed. What are the causes? This condition may be caused by: A clinical dietitian the eye. A gritty or irritating substance (foreign body) in the eye. Excessive eye rubbing. Very dry eyes. Certain eye infections. Contact lenses that fit poorly or are worn for a long period of time. You can also injure your cornea when putting contact lenses in your eye or taking them out. Eye surgery. Certain cornea problems may increase the chance of a corneal abrasion. Sometimes, the cause is not known. What are the signs or symptoms? Symptoms of this condition include: Eye pain. The pain may get worse when you open and close your eye or when you move your eye. A feeling of something stuck in your eye. Tearing, redness, and sensitivity to light. Having trouble keeping your eye open, or not being able to keep it open. Blurred vision. Headache. How is this diagnosed? You may work with a health care provider who specializes in diseases and conditions of the eye (ramp service employee). This condition may be diagnosed based on your medical history, symptoms, and an eye exam. Before the eye exam, numbing drops may be put into your eye. You may also have dye put in your eye with a dropper or a small paper strip. The dye makes the abrasion easy to see when your ramp service employee examines your eye with a light. Your ramp service employee may look at your eye through an eye scope (slit lamp). How is this treated? Treatment may vary depending on the cause of your condition, and it may include: Washing out your eye. Removing any foreign bodies that are in your eye. Using antibiotic drops or ointment to treat or prevent an infection. Using a dilating drop to decrease inflammation and pain. Using steroid drops or ointment to treat redness, irritation, or inflammation. Applying a cold, wet cloth (cold compress) or ice pack to ease the pain. Taking pain medicine by mouth (orally). In some cases, an eye patch or bandage soft contact lens might also be used. An eye patch should not be used if the corneal abrasion was related to contact lens wear as it can increase the chance of infection in these eyes. Follow these instructions at home: Medicines Use eye drops or ointments as told by your health care provider. If you were prescribed antibiotic drops or ointment, use them as told by your health care provider. Do not stop using the antibiotic even if you start to feel better. Take zxid-bco-nbvoaee and prescription medicines only as told by your health care provider. Ask your health care provider if the medicine prescribed to you: ?Requires you to avoid driving or using heavy machinery. ?Can cause constipation. You may need to take these actions to prevent or treat constipation: ?Drink enough fluid to keep your urine pale yellow. ?Take uifp-wer-riqdpzp or prescription medicines. ?Eat foods that are high in fiber, such as beans, whole grains, and fresh fruits and vegetables. ?Limit foods that are high in fat and processed sugars, such as fried or sweet foods. Eye patch use If you have an eye patch, wear it as told by your health care provider. ?Do not drive or use machinery while wearing an eye patch. Your ability to dressage judge distances will be impaired. ?Follow instructions from your health care provider about when to remove the patch. General instructions Ask your health care provider whether you can use a cold compress on your eye to relieve pain. Do not rub or touch your eye. Do not wash out your eye. Do not wear contact lenses until your health care provider says that this is okay. Avoid bright light and eye strain. Keep all follow-up visits as told by your health care provider. This is important for preventing infection and vision loss. Contact a health care provider if: You continue to have eye pain and other symptoms for more than 2 days. You have new symptoms, such as worse redness, tearing, or discharge. You have discharge that makes your eyelids stick together in the morning. Your eye patch becomes so loose that you can blink your eye. Symptoms return after the original abrasion has healed. Get help right away if: You have severe eye pain that does not get better with medicine. You have vision loss. Summary A corneal abrasion is a scratch or injury to the clear covering over the front of the eye (cornea). It is important to get treatment for a corneal abrasion. If this problem is not treated, it can affect your vision. Use eye drops or ointments as told by your health care provider. If you have an eye patch, do not drive or use machinery while wearing it. Your ability to dressage judge distances will be impaired. Let your health care provider know if your symptoms continue for more than 2 days. This information is not intended to replace advice given to you by your health care provider. Make sure you discuss any questions you have with your health care provider. Document Revised: 09/03/2019 Document Reviewed: 09/03/2019 [employer] Patient Education 2022 [employer]. Follow Up Care 06/25/2023 09:09:09 With:Eleonora Easton Address: [address] [address] Business (1) When:06/28/2023 12:04:46 Comments:Immediately go to Dr. Easton's office at 1 PM for your appointment. With:Deonte ROSARIO Address: [facility] [address], [place] [address] Business (1) When:Within 3 Day(s) [facility] 06-25-2023 History of Present illness Narrative Assessment/Plan needs amniotic membrane Placed right, ??stability because of spasm Rv tomorrow for botox documented in this encounter [facility] 06-25-2023 Hospital Discharge instructions Patient Education 06/25/2023 09:04:34 Carotid Artery Disease Carotid Artery Disease Carotid artery disease, also called carotid artery stenosis, is the narrowing or blockage of one or both carotid arteries. The carotid arteries are the two main blood vessels on either side of the neck. They supply blood to the brain, other parts of the head, and the neck. Carotid artery disease increases your risk for a stroke or a transient ischemic attack (TIA). A TIA is a mini-stroke that causes stroke-like symptoms that then go away quickly. What are the causes? This condition is mainly caused by a narrowing and hardening of the carotid arteries (atherosclerosis). The carotid arteries can become narrow or clogged with a buildup of fat, cholesterol, calcium, and other substances (plaque). What increases the risk? The following factors may make you more likely to develop this condition: Having certain medical conditions, such as: ?High cholesterol. ?High blood pressure (hypertension). ?Diabetes. ?Obesity. Smoking. A family history of cardiovascular disease. Inactivity or lack of regular exercise. Being male. Men have an increased risk of developing atherosclerosis earlier in life than women. Old age. What are the signs or symptoms? This condition may not have any signs or symptoms until a stroke or TIA occurs. In some cases, your health care provider may be able to hear a whooshing sound (bruit). This can indicate a change in blood flow caused by plaque buildup. An eye exam can also help identify signs of the condition. How is this diagnosed? This condition may be diagnosed with a physical exam, your medical history, and your family's medical history. You may also have tests that look at the blood flow in your carotid arteries, such as: Carotid artery ultrasound, which uses sound waves to create pictures to show if the arteries are narrow or blocked. Tests that use a dye injected into a vein to highlight your arteries on images, such as: ?Carotid or cerebral angiography, which uses X-rays. ?Computerized tomographic angiography (CTA), which uses CT scans. ?Magnetic resonance angiography (MRA), which uses MRI. How is this treated? This condition may be treated with a combination of treatments. Treatment options include: Lifestyle changes, such as: ?Quitting smoking. ?Exercising regularly or as told by your health care provider. ?Eating a heart-healthy diet. ?Managing stress. ?Maintaining a healthy weight. Medicines to control blood pressure, cholesterol, and blood clotting. Surgery. You may have: ?A carotid endarterectomy. This is a surgery to remove the blockages in the carotid arteries. ?A carotid angioplasty with stenting. This is a procedure in which a small mesh tube (stent) is used to widen the blocked carotid arteries. Follow these instructions at home: Eating and drinking Follow instructions about your diet from your health care provider. It is important to: Eat a healthy diet that is low in saturated fats and includes plenty of fresh fruits, vegetables, and lean meats. Avoid foods that are high in fat and salt (sodium). Avoid foods that are fried, overly processed, or have poor nutritional value. Lifestyle Maintain a healthy weight. Do exercises as told by your health care provider to stay physically active. It is recommended that each week you get at least 150 minutes of moderate-intensity exercise or 75 minutes of exercise that takes a lot of effort. Do not use any products that contain nicotine or tobacco, such as cigarettes, e-cigarettes, and chewing tobacco. If you need help quitting, ask your health care provider. Do not drink alcohol if: ?Your health care provider tells you not to drink. ?You are [...] oz glass of hard liquor (44 mL). Do not use drugs. Manage your stress. Ask your health care provider for stress management tips. General instructions Take nrcw-vwz-bmchoui and prescription medicines only as told by your health care provider. Keep all follow-up visits as told by your health care provider. This is important. Where to find more information [place] Heart Association: www.heart.org Get help right away if: You have any symptoms of a stroke. BE FAST is an easy way to remember the main warning signs of a stroke: ?B - Balance. Signs are dizziness, sudden trouble walking, or loss of balance. ?E - Eyes. Signs are trouble seeing or a sudden change in vision. ?F - Face. Signs are sudden weakness or numbness of the face, or the face or eyelid drooping on one side. ?A - Arms. Signs are weakness or numbness in an arm. This happens suddenly and usually on one side of the body. ?S - Speech. Signs are sudden trouble speaking, slurred speech, or trouble understanding what people say. ?T - Time. Time to call emergency services. Write down what time symptoms started. You have other signs of a stroke, such as: ?A sudden, severe headache with no known cause. ?Nausea or vomiting. ?Seizure. These symptoms may represent a serious problem that is an emergency. Do not wait to see if the symptoms will go away. Get medical help right away. Call your local emergency services (911 in the [place] Do not drive yourself to the hospital. Summary Carotid artery disease, also called carotid artery stenosis, is the narrowing or blockage of one or both carotid arteries. Carotid artery disease increases your risk for a stroke or a transient ischemic attack (TIA). This condition can be treated with lifestyle changes, medicines, surgery, or a combination of these treatments. Get help right away if you have any symptoms of stroke. The acronym BEFAST is an easy way to remember the main warning signs of stroke. This information is not intended to replace advice given to you by your health care provider. Make sure you discuss any questions you have with your health care provider. Document Revised: 07/25/2022 Document Reviewed: 11/08/2019 [employer] Patient Education 2022 [employer]. Follow Up Care 03/04/2023 13:38:04 With:Deonte ROSARIO MD, MED Address: [facility] [address], [facility] [place] [address]- When:Within 1 Week(s) With:Deonte ROSARIO MD, MED Address: [facility] [address], [facility] [place] [address]- When: Unknown Comments:at regular appt but sooner if needed. [facility] 03-04-2023 Hospital Discharge instructions Patient Education 03/04/2023 13:26:32 Hypertension, Adult, Veaj-iz-Mcpj Hypertension, Adult Hypertension is another name for [...] doctor. Keep all follow-up visits. Medicines Take gais-fzd-cdrywcy and prescription medicines only as told by [...] provider. Document Revised: 02/14/2022 Document Reviewed: 02/14/2022 [employer] Patient Education 2022 [employer]. Follow Up Care 11/22/2022 14:18:32 With:PAULO HINOJOSA, Deonte Turpin, ROCKY Address: [facility] [address], [place] [address]- When:Within 3 Month(s) [facility] 02-10-2023 Hospital Discharge instructions Patient [...] including vitamins, herbs, eye drops, creams, and ltjl-xwb-cpwhhrv medicines. Any problems you or family members [...] provider tells you to take them. ?Taking sogm-eje-tgszndc medicines, vitamins, herbs, and supplements. Follow instructions [...] home. Follow these instructions at home: Take jxau-fvi-yxqoyxw and prescription medicines only as told by [...] provider. Document Revised: 09/13/2020 Document Reviewed: 09/13/2020 [employer] Patient Education 2022 [employer]. 02/10/2023 14:15:49 Upper Endoscopy, Adult, Care After [...] what activities are safe for you. Take wqwu-cxg-bbjzool and prescription medicines only as told by [...] provider. Document Revised: 03/03/2020 Document Reviewed: 09/28/2018 [employer] Patient Education 2022 [employer] Follow Up Care 01/17/2023 09:40:15 With:Wolf Peres Address: [address] [place] [address], [address] [address] [phone] Business (1) When: Unknown Comments:Call for any problems. [facility] 02-07-2023 Hospital Discharge instructions Patient Education [...] this treated? Treatment for neuropathic pain may car changer time. You may need to try different treatment options or a combination of treatments. Some options include: Treating the underlying cause of the neuropathy, such as diabetes, kidney disease, or vitamin deficiencies. Stopping medicines that can cause neuropathy, such as chemotherapy. Medicine to relieve pain. Medicines may include: ?Prescription or dcck-syq-dvfvqls pain medicine. ?Anti-seizure medicine. ?Antidepressant medicines. ?Pain-relieving [...] Follow these instructions at home: Medicines Take ehdc-juo-kksvkpf and prescription medicines only as told by your health care provider. Ask your health care provider if the medicine prescribed to you: ?Requires you to avoid driving or using machinery. ?Can cause constipation. You may need to take these actions to prevent or treat constipation: ?Drink enough fluid to keep your urine pale yellow. ?Take ubjt-kyq-zdaeisx or prescription medicines. ?Eat foods that are [...] the National Suicide Prevention Lifeline at or 635. This is open 24 hours a day. Text the Crisis Text Line at 554464. Summary Neuropathic pain is pain caused by [...] provider. Document Revised: 12/24/2021 Document Reviewed: 12/24/2021 [employer] Patient Education 2022 [employer]. 02/07/2023 13:23:45 Shingles Shingles Shingles, which is [...] a specialist, such as an eye doctor (ramp service employee) or an ear, nose, and throat (ENT) doctor (thread drawer) to help you avoid eye problems, chronic pain, or disability. Follow these instructions at home: Medicines Take nkfy-lsv-ljostbj and prescription medicines only as told by [...] your health care provider. This is an rshr-udl-gmqdgom lotion that helps to relieve itchiness. Blister and rash care Keep your rash covered with a loose bandage (dressing). Wear loose-fitting clothing to help ease the pain of material rubbing against the rash. Wash your hands with soap and water for at least 20 seconds before and after you change your dressing. If soap and water are not available, use hand biomass power plant superintendent. Change your dressing as told by your [...] and water are not available, use hand biomass power plant superintendent. Doing this lowers your chance of getting [...] provider. Document Revised: 04/23/2021 Document Reviewed: 04/23/2021 [employer] Patient Education 2022 [employer]. Follow Up Care 01/29/2023 10:14:04 With:Radu Carlos FLORESlymariluz Vergara Address: [facility] [address], [place] [address]- When: only if needed [facility] 11-22-2022 Hospital Discharge instructions Patient Education 11/22/2022 14:06:05 Hypertension, Adult, Ucku-gc-Hfzu Hypertension, Adult Hypertension is another name for [...] doctor. Keep all follow-up visits. Medicines Take ulfl-foc-wyqlbwy and prescription medicines only as told by [...] provider. Document Revised: 02/14/2022 Document Reviewed: 02/14/2022 [employer] Patient Education 2022 [employer]. Follow Up Care 07/31/2022 14:36:54 With:PAULO HINOJOSA, Deonte Turpin, [facility] Address: [address] [place] [address]- When:Within 3 Month(s) [facility] 07-31-2022 Hospital Discharge instructions Patient [...] Being older than age 40. Being of -Citizen [place] descent. Having high blood pressure or diabetes. [...] diagnosed through an eye exam by an document imaging specialist (ramp service employee). This specialist will: Perform a test to [...] medicine. Follow these instructions at home: Take efdv-uvy-wrrqwqz and prescription medicines only as told by [...] 04/28/2006 Document Revised: 04/10/2018 Document Reviewed: 12/25/2017 [employer] Patient Education 2020 [employer] 07/31/2022 15:14:02 BMI for Adults BMI [...] height. This can be done either in Estonian ([place] or metric measurements. Note that charts are available to help you find your BMI quickly and easily without having to do these calculations yourself. To calculate your BMI in Estonian ([place] measurements, your health care provider will: [...] medical problems. BMI can be measured using Estonian measurements or metric measurements. To interpret your [...] 01/07/2005 Document Revised: 04/10/2018 Document Reviewed: 03/11/2018 [employer] Patient Education 2020 [employer]. 07/31/2022 14:32:07 Hypertension, Adult, Vtpg-zs-Henr Hypertension, Adult Hypertension is another name for [...] your doctor. This is important. Medicines Take hmhx-vfu-kbrfxbs and prescription medicines only as told by [...] 10/14/2008 Document Revised: 01/06/2019 Document Reviewed: 01/06/2019 [employer] Patient Education 2020 [employer] Follow Up Care 05/01/2022 10:10:07 With:PAULO HINOJOSA, Deonte Turpin, MED Address: [facility] [address], [place] [address]- When:Within 3 Month(s) [facility] 06-19-2022 History of Present illness Narrative CLINICAL PHARMACY NOTE: MEDS TO BEDS Total # of Prescriptions Filled: 2 The following medications were delivered to the patient: Carvedilol prednisone Additional Documentation: Patient back to room from barium swallow test. Patient to barium swallow test with transport. Physical Therapy Facility/Department: [facility] 3- [facility] Physical Therapy Daily [...] UE assist, no LOB x5 AM-PAC Score -[facility] Inpatient Mobility Raw Score : 20 (06/19/22926) -[facility] Inpatient T-Scale Score : 47.67 (06/19/22926) Mobility [...] Patient's name: Piedad Alatorre Patient's account/billing number: [id number] Patient's Date of : 1935 Age: 86 [...] in muscle strength numbness/tingling HPI: Referred from [facility] ER for the concern of angioedema. Patient was in her normal state and suddenly started noticing tongue swelling, throat swelling with difficulty swallowing and change in her voice at 5 PM yesterday. Denies skin rash or difficulty breathing. [facility] in a [facility], nurse recommended to visit the emergency department. She was seen in the [facility] and was given IV antihistamine Solu-Medrol epi [...] Date 06/19/22 0000 - 06/19/22 2359 Shift [id number] 24 Hour Total INTAKE I.V.(mL/kg) 1(0) 1(0) [...] enzyme inhibitor (MORIS-I) Coronary artery disease involving [place] coronary artery of [place] heart Primary hypertension Resolved Problems: * No [...] MD, Department of Internal Medicine/ Critical care [facility], [facility]) 06/19/2022, 7:51 AM Attending Physician Statement I [...] this chart was generated using voice recognition Dragon dictation software. Although every effort was made to ensure the accuracy of this automated pharmacy informaticist, some errors in pharmacy informaticist may have occurred. Adrian Riley MD 06/19/2022 3:22 PM Physical Therapy Facility/Department: [place] [address]- [facility] Physical Therapy Initial Assessment Name: Piedad Alatorre : 1935 Date of Service: 06/18/2022 Obtained from medical chart: Patient was in her normal state and suddenly started noticing tongue swelling, throat swelling with difficulty swallowing and change in her voice at 5 PM yesterday. Denies skin rash or difficulty breathing. She lives in a [facility], nurse recommended to visit the emergency department. 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 Leisure & Hobbies: listening to music, playing bingo, going to [employer] Vision/Hearing Vision Vision: Impaired ( I can't [...] (06/18/221558) Mobility Inpatient CMS 0-100% Score: 35.83 (06/18/22 155) Mobility Inpatient CMS G-Code Modifier : CJ [...] Oleksandr Cha PT Speech Language Pathology Facility/Department: [facility] CLINICAL BEDSIDE SWALLOW EVALUATION NAME: Piedad Alatorre : 1935 ADMISSION DATE: 06/17/2022 ADMITTING DIAGNOSIS: has Angioedema of tongue; 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 Date of Eval: 06/18/2022 Evaluating Therapist: MARBELLA HEREDIA, MONTSE Current Diet level: Current Diet : NPO Primary Complaint Patient was in her normal state and suddenly started noticing tongue swelling, throat swelling with difficulty swallowing and change in her voice at 5 PM yesterday. Denies skin rash or difficulty breathing. She lives in a [facility], nurse recommended to visit the emergency department. She was seen in the [facility] and was given IV antihistamine Solu-Medrol epi [...] recommendations reported to RN. Treatment Plan Requires 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 TEACHER Intervention: Yes D/C Recommendations: Ongoing speech therapy [...] 1014 Total Time: 10 MARBELLA HEREDIA M.A. CCC-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 TEACHER 06/18/2022 11:39 AM Critical Care Team - Daily Progress Note Date and time: 06/18/2022 8:08 AM Patient's name: Piedad Alatorre Patient's account/billing number: [id number] Patient's Date of : 1935 Age: 86 [...] in muscle strength numbness/tingling HPI: Referred from [facility] ER for the concern of angioedema. Patient was in her normal state and suddenly started noticing tongue swelling, throat swelling with difficulty swallowing and change in her voice at 5 PM yesterday. Denies skin rash or difficulty breathing. [facility], nurse recommended to visit the emergency department. She was seen in the [facility] and was given IV antihistamine Solu-Medrol epi [...] enzyme inhibitor (MORIS-I) Coronary artery disease involving [place] coronary artery of [place] heart Primary hypertension Resolved Problems: * No [...] MD, Department of Internal Medicine/ Critical care [facility], [facility]) 06/18/2022, 8:08 AM Attending Physician Statement I [...] this chart was generated using voice recognition [employer] dictation software. Although every effort was made to ensure the accuracy of this automated pharmacy informaticist, some errors in pharmacy informaticist may have occurred. Adrian Riley MD 06/18/2022 [...] any concerns. Thank you. Paulina Todd PharmD [facility] 06/17/2022 3:07 PM documented in this encounter [employer] Phone: 06-19-2022 Hospital Discharge instructions Abebe Coker [...] to emergency department. documented in this encounter [employer] Phone: 05-01-2022 Hospital Discharge instructions Patient Education 05/01/2022 10:05:57 Hypertension, Adult, Rgmi-du-Tbsu Hypertension, Adult Hypertension is another name for [...] your doctor. This is important. Medicines Take oacv-idx-xsniynd and prescription medicines only as told by [...] 10/14/2008 Document Revised: 01/06/2019 Document Reviewed: 01/06/2019 [employer] Patient Education 2020 [employer]. Follow Up Care 01/22/2022 12:28:23 With:PAULO HINOJOSA, Deonte Turpin, [facility] Address: [facility] [address], [place] [address]- When:Within 3 Month(s) [facility] 03-18-2022 Hospital Discharge instructions Patient [...] reduce GERD symptoms. Medicines. These may include: ?Sqdl-rmr-ryrytqu antacids. ?Medicines that make your stomach empty [...] may include: ?Fatty foods, like fried foods. ?[place] fruits, like oranges or lemon. ?Other foods [...] Do not drink alcohol. General instructions Take ankl-jzj-mkfkuip and prescription medicines only as told by [...] 07/18/2004 Document Revised: 04/10/2018 Document Reviewed: 12/01/2017 [employer] Patient Education 2019 [employer] Follow Up Care 01/30/2022 11:34:55 With:Rosette HARE Address: [address] [place] [address] Business (1) When: Unknown Comments:OFFICE WILL CALL DATE AND TIME OF FOLLOW-UP APPT. [facility] 01-22-2022 Hospital Discharge instructions Patient Education 01/22/2022 12:06:50 Hypertension, Adult, Kvqk-zw-Cjau Hypertension, Adult Hypertension is another name for [...] your doctor. This is important. Medicines Take ghpz-ocg-jzodwmb and prescription medicines only as told by [...] 10/14/2008 Document Revised: 01/06/2019 Document Reviewed: 01/06/2019 [employer] Patient Education 2020 [employer]. Follow Up Care 10/17/2021 11:58:35 With:PAULO HINOJOSA, Deonte Turpin, MED Address: [facility] [address] [place], [place] [address], [place] [address]- When:Within 3 Month(s) [facility] 10-17-2021 Hospital Discharge instructions Patient Education 10/17/2021 11:53:49 Hypertension, Adult, Dtxr-hg-Apsx Hypertension, Adult Hypertension is another name for [...] your doctor. This is important. Medicines Take cudv-lay-ybuianh and prescription medicines only as told by [...] 10/14/2008 Document Revised: 01/06/2019 Document Reviewed: 01/06/2019 [employer] Patient Education 2020 [employer]. Follow Up Care 07/03/2021 16:48:31 With:Deonte ROSARIO MD, [facility] Address: [address] [facility] [place] [address]- When:Within 3 Month(s) [facility] 01-05-2020 Evaluation + Plan note Future Appointments Appointment Date:01/01/2022 09:00:00 AM Scheduled Provider: [facility] Appoint[facility] Type:CV Echo (FT) Appointment Date:01/04/2022 02:00:00 PM Scheduled Provider:Juancho Catherine MD [facility] Appointment Type:Cardiology Follow Up (FT) Appointment Date:01/22/2022 10:00:00 AM Scheduled Provider:Deonte ROSARIO MD Location:[facility] Appointment Type:FM Open Appointment Date:01/30/2022 10:30:00 AM Scheduled Provider:Rosette HARE MD Location:[facility] Appointment Type:BADH Follow Up Future Scheduled [id number] 03/13/21CBC w/ Auto Diff 03/13/21Comprehensive Metabolic Panel 03/13/21Lipid Panel 03/13/21Echo Transthoracic Complete 01/01/22 [facility] Evaluation + Plan note Future Appointments Appointment Date:01/22/2022 10:00:00 AM Scheduled Provider:Deonte ROSARIO MD Location:[facility] Appointment Type:FM Open Future Scheduled [id number] 03/13/21CBC w/ Auto Diff 03/13/21Comprehensive Metabolic Panel 03/13/21Lipid Panel 03/13/21 [facility] Evaluation + Plan note Future Appointments Appointment Date:12/14/2021 10:30:00 AM Scheduled Provider: [facility] Appointment Type:Cardiology Nurse Visit (FT) Appointment Date:01/04/2022 02:00:00 PM Scheduled Provider:Juancho Catherine MD [facility] Appointment Type:Cardiology Follow Up (FT) Appointment Date:01/22/2022 10:00:00 AM Scheduled Provider:Deonte ROSARIO MD Location:[facility] Appointment Type:FM Open Appointment Date:01/30/2022 10:30:00 AM Scheduled Provider:Rosette HARE MD Location:[facility] Digestive Health Appointment Type:BAD Follow Up Future Scheduled [id number] 21CBC w/ Auto Diff 03/13/21Comprehensive Metabolic Panel 03/13/21Lipid Panel 03/13/21Echo Transthoracic Complete 11/30/21 [facility] Evaluation + Plan note Future Appointments Appointment Date:01/18/2022 01:30:00 PM Scheduled Provider:Juancho Catherine MD [facility] Type:Cardiology Follow Up (FT) Appointment Date:01/22/2022 10:00:00 AM Scheduled Provider:Deonte ROSARIO MD Location:[facility] Appointment Type:FM Open Appointment Date:01/30/2022 10:30:00 AM Scheduled Provider:Rosette HARE MD Location:[facility] Appointment Type:BADH Follow Up Future Scheduled FsdplYucP9x 21CBC w/ Auto Diff 03/13/21Comprehensive Metabolic Panel 03/13/21Lipid Panel 03/13/21 [facility] Evaluation + Plan note Future Appointments Appointment Date:01/22/2022 10:00:00 AM Scheduled Provider:Deonte ROSARIO MD Location:[facility] Appointment Type:FM Open Appointment Date:01/30/2022 10:30:00 AM Scheduled Provider:Rosette HARE MD Location:[facility] Appointment Type:BADH Follow Up Appointment Date:05/16/2022 01:15:00 PM Scheduled Provider:Juancho Catherine MD [facility] Type:Cardiology Follow Up (FT) Future Scheduled MmwrgXefV0d 03/13/21CBC w/ Auto Diff 03/13/21Comprehensive Metabolic Panel 03/13/21Lipid Panel 03/13/21Lipid Panel 01/18/22 [facility] Evaluation + Plan note Future Appointments Appointment Date:01/30/2022 10:30:00 AM Scheduled Provider:Rosette HARE MD Location:[facility] Appointment Type:BADH Follow Up Appointment Date:05/01/2022 10:00:00 AM Scheduled Provider:Deonte ROSARIO MD Location:[facility] Appointment Type:FM Open Appointment Date:05/16/2022 01:15:00 PM Scheduled Provider:Juancho Catherine MD [facility] Type:Cardiology Follow Up (FT) Future Scheduled SzrzuEygJ9x 01/22/2255FokU7x 03/13/21CBC w/ Auto Diff 01/22/22CBC w/ Auto Diff 03/13/21Comprehensive Metabolic Panel 01/22/22Comprehensive Metabolic Panel 03/13/21Lipid Panel 01/22/22Lipid Panel 03/13/21Lipid Panel 01/18/22 [facility] Evaluation + Plan note Future Appointments Appointment Date:02/18/2022 02:30:00 PM Scheduled Provider: Location:[facility] Appointment Type:Surgery FT Appointment Date:05/01/2022 10:00:00 AM Scheduled Provider:Deonte ROSARIO MD Location:[facility] Appointment Type: Open Appointment Date:05/16/2022 01:15:00 PM Scheduled Provider:Juancho Catherine MD [facility] Type:Cardiology Follow Up (FT) Future Scheduled GorzfAuhZ1d 01/22/2241VxvQ2n 03/13/21IgA, Quant. 01/30/22t-Transglutaminase IgA 01/30/22CBC w/ Auto Diff 01/22/22CBC w/ Auto Diff 03/13/21Comprehensive Metabolic Panel 01/22/22Comprehensive Metabolic Panel 03/13/21GGT 01/30/22Lipid Panel 01/22/Lipid Panel 11//21Lipid Panel 01/18/22Reticulocyte Count 01/30/22Thyroid Stimulating Hormone 01/30/22 [facility] Evaluation + Plan note Future Appointments Appointment Date:05/01/2022 10:00:00 AM Scheduled Provider:Deonte ROSARIO MD Location:[facility] Appointment Type:FM Open Appointment Date:05/16/2022 01:15:00 PM Scheduled Provider:Juancho Catherine MD [facility] Type:Cardiology Follow Up (FT) Future Scheduled BalueScwM2z 01/22/22IgA, Quant. 01/30/22t-Transglutaminase IgA 01/30/22CBC w/ Auto Diff 01/22/22Comprehensive Metabolic Panel 01/22/22GGT 01/30/22Lipid Panel 01/22/22Lipid Panel 01/18/22Reticulocyte Count 01/30/22Thyroid Stimulating Hormone 01/30/22 [facility] Evaluation + Plan note Future Appointments Appointment Date:05/16/2022 01:15:00 PM Scheduled Provider:Juancho Catherine MD [facility] Type:Cardiology Follow Up (FT) Appointment Date:07/31/2022 01:00:00 PM Scheduled Provider: Location:[facility] Appointment Type: Medicare Wellness Initial Appointment Date:07/31/2022 02:00:00 PM Scheduled Provider:Deonte ROSARIO MD Location:[facility] Appointment Type: Open Future Scheduled SvlhxXfhJ1e 01/22/22IgA, Quant. 01/30/22t-Transglutaminase IgA 01/30/22CBC w/ Auto Diff 01/22/22Comprehensive Metabolic Panel 01/22/22GGT 01/30/22Lipid Panel 01/22/22Lipid Panel 01/18/22Reticulocyte Count 01/30/22Thyroid Stimulating Hormone 01/30/22 [facility] Evaluation + Plan note Future Appointments Appointment Date:07/31/2022 01:00:00 PM Scheduled Provider: Location:[facility] Appointment Type: Medicare Wellness Initial Appointment Date:07/31/2022 02:00:00 PM Scheduled Provider:Deonte ROSARIO MD Location:[facility] Appointment Type: Open Future Scheduled IdnyjUdxW2m 01/22/22IgA, Quant. 01/30/22t-Transglutaminase IgA 01/30/22CBC w/ Auto Diff 01/22/22Comprehensive Metabolic Panel 01/22/22GGT 01/30/22Lipid Panel 01/22/22Lipid Panel /10/01Lipid Panel /01/31Reticulocyte Count 01/30/22Thyroid Stimulating Hormone 01/30/22NM Myocardial Spect Rest/Stress 1 Day 05/16/22 [facility] Evaluation + Plan note Future Appointments Appointment Date:11/22/2022 01:40:00 PM Scheduled Provider:Deonte ROSARIO MD Location:[facility] Appointment Type: Open Appointment Date:08/01/2023 01:00:00 PM Scheduled Provider: Location:[facility] Appointment Type: Medicare Wellness Subsequent Future Scheduled QevapYgqI9r 01/22/22IgA, Quant. 01/30/22t-Transglutaminase IgA 01/30/22CBC w/ Auto Diff 01/22/22Comprehensive Metabolic Panel 01/22/22GGT 01/30/22Lipid Panel 01/22/22Lipid Panel /10/01Lipid Panel /01/31Reticulocyte Count 01/30/22Thyroid Stimulating Hormone 01/30/22NM Myocardial Spect Rest/Stress 1 Day 07/08/22 [facility] Evaluation + Plan note Future Appointments Appointment Date:03/04/2023 01:20:00 PM Scheduled Provider:Deonte ROSARIO MD Location:[facility] Appointment Type: Open Appointment Date:08/01/2023 01:00:00 PM Scheduled Provider: Location:[facility] Appointment Type: Medicare Wellness Subsequent Future Scheduled QuvhoMgfT2t 01/22/22IgA, Quant. 01/30/22t-Transglutaminase IgA 01/30/22CBC w/ Auto Diff 01/22/22Comprehensive Metabolic Panel 01/22/22GGT 01/30/22Lipid Panel 01/22/22Lipid Panel 05/16/22Lipid Panel 01/18/22Reticulocyte Count 01/30/22Thyroid Stimulating Hormone 01/30/22NM Myocardial Spect Rest/Stress 1 Day 07/08/22 [facility] Evaluation + Plan note Future Appointments Appointment Date:02/10/2023 01:30:00 PM Scheduled Provider: Location:[facility] Appointment Type:Surgery FT Appointment Date:03/04/2023 01:20:00 PM Scheduled Provider:Deonte ROSARIO MD Location:[facility] [employer] Appointment Type: Open Appointment Date:04/11/2023 09:40:00 AM Scheduled Provider: [facility]: Nurse Visit Appointment Date:08/01/2023 01:00:00 PM Scheduled Provider: Location:[facility] Appointment Type:FM Medicare Wellness Subsequent Future Scheduled TestsLipid Panel 05/16/22NM Myocardial Spect Rest/Stress 1 Day 07/08/22 [facility] Evaluation + Plan note Future Appointments Appointment Date:03/04/2023 01:20:00 PM Scheduled Provider:Deonte ROSARIO MD Location:[facility] [employer] Appointment Type: Open Appointment Date:04/11/2023 09:40:00 AM Scheduled Provider: Location:[facility] [employer] Appointment Type: Nurse Visit Appointment Date:08/01/2023 01:00:00 PM Scheduled Provider: Location:[facility] [employer] Appointment Type:FM Medicare Wellness Subsequent Future Scheduled TestsCBC w/ Auto Diff 02/08/23Comprehensive Metabolic Panel 02/08/23Ferritin 02/08/23Folate Level 02/08/23Iron Level 02/08/23Iron Percent Saturation 02/08/23Lipid Panel 05/16/22Reticulocyte Count 02/08/23Vitamin B12 Level 02/08/23NM Myocardial Spect Rest/Stress 1 Day 07/08/22 [facility] Evaluation + Plan note Future Appointments Appointment Date:04/11/2023 09:40:00 AM Scheduled Provider: Location:[facility] Appointment Type: Nurse Visit Appointment Date:06/04/2023 12:00:00 PM Scheduled Provider:Deonte ROSARIO MD Location:[facility] Appointment Type: Open Appointment Date:08/01/2023 01:00:00 PM Scheduled Provider: Location:[facility] Appointment Type:FM Medicare Wellness Subsequent Future Scheduled VbmqwIaeM4v 03/04/23CBC w/ Auto Diff 03/04/23CBC w/ Auto Diff 02/08/23Comprehensive Metabolic Panel 03/04/23Comprehensive Metabolic Panel 02/08/23Ferritin 03/04/23Ferritin 02/08/23Folate Level 03/04/23Folate Level 02/08/23Iron Level 03/04/23Iron Level 02/08/23Iron Percent Saturation 02/08/23Lipid Panel 03/04/23Lipid Panel 05/16/22Reticulocyte Count 03/04/23Reticulocyte Count 02/08/23Vitamin B12 Level 03/04/23Vitamin B12 Level 02/08/23NM Myocardial Spect Rest/Stress 1 Day 07/08/22 [facility] Evaluation + Plan note Future Appointments Appointment Date:04/15/2023 01:40:00 PM Scheduled Provider:Brunilda Redding CNP Location:[facility] Appointment Type:[facility] Follow Up Appointment Date:06/04/2023 12:00:00 PM Scheduled Provider:Deonte ROSARIO MD Location:[facility] Appointment Type: Open Appointment Date:08/01/2023 01:00:00 PM Scheduled Provider: Location:[facility] Appointment Type: Medicare Wellness Subsequent Future Scheduled NsbnpKzxY5r 03/04/23CBC w/ Auto Diff 03/04/23CBC w/ Auto Diff 02/08/23Comprehensive Metabolic Panel 03/04/23Comprehensive Metabolic Panel 02/08/23Ferritin 03/04/23Ferritin 02/08/23Folate Level 03/04/23Folate Level 02/08/23Iron Level 10Iron Level 02/08/23Iron Percent Saturation 02/08/23Lipid Panel 03/04/23Lipid Panel 05/16/22Reticulocyte Count 03/04/23Reticulocyte Count 02/08/23Vitamin B12 Level 03/04/23Vitamin B12 Level 02/08/23NM Myocardial Spect Rest/Stress 1 Day 07/08/22 [facility] Primary Care Evaluation + Plan note Future Appointments Appointment Date:08/01/2023 01:00:00 PM Scheduled Provider: Location:[facility] Appointment Type: Medicare Wellness Subsequent Appointment Date:09/23/2023 03:00:00 PM Scheduled Provider:Deonte ROSARIO MD Location:[facility] Appointment Type: Open Future Scheduled TestsSedimentation Rate Automated 2//75UftR6c 03/04/23CBC w/ Auto Diff 03/04/23CBC w/ Auto Diff 04/15/23CBC w/ Auto Diff 02/08/23Comprehensive Metabolic Panel 03/04/23Comprehensive Metabolic Panel 02/08/23C-Reactive Protein 06/25/23Ferritin 03/04/23Ferritin 02/08/23Folate Level 10Folate Level 02/08/23GGT 04/15/23Hepatic Function Panel 04/15/23Iron Level 03/04/23Iron Level 02/08/23Iron Percent Saturation 02/08/23Lipid Panel 03/04/23Reticulocyte Count 03/04/23Reticulocyte Count 02/08/23Vitamin B12 Level 03/04/23Vitamin B12 Level 02/08/23NM Myocardial Spect Rest/Stress 1 Day 07/08/22US Liver 04/15/23 [facility] Primary Care Evaluation + Plan note Future Appointments Appointment Date:09/23/2023 03:00:00 PM Scheduled Provider:eDonte ROSARIO MD Location:[facility] Appointment Type:FM Open Appointment Date:08/03/2024 01:00:00 PM Scheduled Provider: Location:[facility] Appointment Type: Medicare Wellness Subsequent Future Scheduled TestsSedimentation Rate Automated 2/14/30GtyJ9k 10CBC w/ Auto Diff 03/04/23CBC w/ Auto Diff 04/15/23CBC w/ Auto Diff 02/08/23Comprehensive Metabolic Panel 03/04/23Comprehensive Metabolic Panel 02/08/23C-Reactive Protein 06/25/23Ferritin 03/04/23Ferritin 02/08/23Folate Level 03/04/23Folate Level 02/08/23GGT 04/15/23Hepatic Function Panel 04/15/23Iron Level 03/04/23Iron Level 02/08/23Iron Percent Saturation 02/08/23Lipid Panel 03/04/23Reticulocyte Count 03/04/23Reticulocyte Count 02/08/23Vitamin B12 Level 03/04/23Vitamin B12 Level 02/08/23US Liver 04/15/23 [facility] Evaluation note Diagnosis 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) Coronary artery disease involving [place] coronary artery of [place] heart Primary hypertension Unspecified essential hypertension Lung nodule, solitary, 8 mm documented in this encounter [facility] Work Phone: evaluation note* 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 Abrasion of right cornea, initial encounter [facility] 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 [facility] Narrative No data available for this section [facility] Hospital Discharge instructions No data available for this section [facility] No data available for this section [facility]ative) Referred by: Deonte ROSARIO MD [facility] Primary Care Summary Purpose Family History No Family History Records FoundNo Family History Records FoundNo Family History Records Found No data available for this section No data available for this section No data available for this section No data available for this section No data available for this section No data available for this section No Family History Records Found No data available for this section No Family History Records Found Advance Directives No Advanced Directives Records FoundLatest Code Status on File Code Status Date Activated Date Inactivated Comments Full Code 06/17/2022 7:32 AM Full Code 06/17/2022 7:32 AM 06/17/2022 7:32 AM Healthcare Agents on File Name Relationship Healthcare Agent Miguelhi p Communication Milena Aldo Other Primary Decision Maker Additional Source Comments INFORMATION SOURCE (unrecogn ized section and content) DATE CREATED AUTHOR 11/28/2020 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 0913 (Given - Provider: Juana Moralez RN) 0849 (Given - Provider: Damien Villar RN) 08 (Given - Provider: Corby Robledo RN) atorvastatin (LIPITOR) tablet 80 mg 80 mg, Oral, NIGHTLY, First dose on Fri06/17/22 at 2100, Until Discontinued 2029 (Given - Provider: Brigid Murphy RN) 1952 (Given - Provider: Brigid Murphy RN) 2100 (Due) carvedilol (COREG) tablet 12.5 mg 12.5 mg, Oral, 2 TIMES DAILY WITH MEALS, First dose (after last modification) on Fri06/18/22 at 1700, Until Discontinued, Administer with food to minimize the risk of orthostatic hypotension 1823 (Given - Provider: Juana Moralez RN) 0849 (Given - Provider: Damien Villar, TOMASZ)174 (Given - Provider: Damien Villar, TOMASZ) 0804 (Given - Provider: Corby Robledo, TOMASZ)1700 (Due) carvedilol (COREG) tablet 6.25 mg (CANCELED) 6.25 mg, Oral, 2 TIMES DAILY WITH MEALS, First dose on Fri06/17/22 at 1330, Until Discontinued, Administer with food to minimize the risk of orthostatic hypotension 0913 (Given - Provider: Juana Moralez RN) cloNIDine (CATAPRES) tablet 0.1 mg 0.1 mg, Oral, 2 TIMES DAILY, First dose on Fri06/17/22 at 1130, Until Discontinued 09 (Given - Provider: Juana Moralez RN)2030 (Given - Provider: Brigid Murphy RN) 0849 (Given - Provider: Damien Villar, TOMASZ)1952 (Given - Provider: Brigid Murphy RN) 0804 (Given - Provider: Corby Robledo, TOMASZ)2100 (Due) enoxaparin Sodium (LOVENOX) injection 30 mg [...] mL NS 0911 (Given - Provider: Juana Moralez, RN) 0849 (Given - Provider: Damien Villar, TOMASZ) 0804 (Given - Provider: Corby Robledo, RN) isosorbide mononitrate (IMDUR) extended release tablet 15 mg 15 mg, Oral, DAILY, First dose on Fri06/17/22 at 1130, Until Discontinued 0913 (Given - Provider: Juana Moralez, TOMASZ) 0849 (Given - Provider: Damien Villar, TOMASZ) 0804 (Given - Provider: Corby Robledo, RN) magnesium sulfate 2000 mg in 50 mL IVPB premix (COMPLETED) 2,000 mg, IntraVENous, at 100 mL/hr, Administer over 30 Minutes, ONCE, On Fri06/19/22 at 0630, For 1 dose, Recommended infusion rate of 1 gram/hour. 0626 (New Bag - Provider: Brigid Murphy RN)0628 (Rate/Dose Verify - Provider: Brigid Murphy RN)0650 (Rate/Dose Verify - Provider: Brigid Murphy, TOMASZ)0658 (Stopped - Provider: Brigid Murphy RN) methylPREDNISolone sodium (SOLU-MEDROL) injection 30 mg (CANCELED) 30 mg, IntraVENous, DAILY, First dose on Fri06/18/22 at 1330 1417 (Given - Provider: Juana Moralez RN) 0849 (Given - Provider: Damien Villar, TOMASZ) oxyCODONE (ROXICODONE) immediate release tablet 5 mg (COMPLETED) 5 mg, Oral, ONCE, 1 dose, On Fri06/20/22 at 0200 0236 (Given - Provider: Brigid Murphy RN) polyethylene glycol (GLYCOLAX) packet 17 g 17 g, Oral, DAILY, First dose (after last modification) on Fri06/19/22 at 0900, Until Discontinued, First line therapy for constipation 0857 (Given - Provider: Damien Villar, TOMASZ) 0804 (Given - Provider: Corby Robledo, TOMASZ) predniSONE (DELTASONE) tablet 20 mg 20 mg, Oral, DAILY, 3 doses, First dose on Fri06/20/22 at 0900, Last dose on Fri06/22/22 at 0900 0804 (Given - Provider: Corby Robledo, RN) sodium chloride flush 0.9 % injection [...] RN)2030 (Given - Provider: Brigid Murphy RN) 0850 (Given - Provider: Damien Vilalr RN)195 (Given - Provider: Brigid Murphy RN) 0805 (Not Given - Provider: Corby Robledo RN - Reason: Other - Comment: lda removed)2100 (Due) ticagrelor (BRILINTA) tablet 90 mg 90 mg, Oral, 2 TIMES DAILY, First dose on Fri06/17/22 at 1130, Until Discontinued, ANTIPLATELET! 0913 (Given - Provider: Juana Moralez RN)2030 (Given - Provider: Brigid Murphy RN) 0849 (Given - Provider: Damien Villar RN)195 (Given - Provider: Brigid Murphy RN) 0804 (Given - Provider: Corby Robledo, TOMASZ)2100 (Due) PRN Medication Order 06/18/2022 06/19/2022 06/20/2022 [...] Murphy RN)0628 (Stopped - Provider: Brigid Murphy RN)07 (Rate/Dose Verify - Provider: Brigid Murphy RN)0738 (Stopped - Provider: Damien Villar RN) acetaminophen (TYLENOL) suppository 650 mg(Linked Group 1) [...] mg from all sources in 24 hours. 236 (Given - Provider: Brigid Murphy RN)1952 (Given [...] Discontinued, Dry Eyes, Substituted for cycloSPORINE (RESTASIS). 1112 (Given - Provider: Damien Villar RN)1950 (Given [...] Discontinued, Sleep 2030 (Given - Provider: Brigid Murphy RN) 1951 (Given - Provider: Brigid Murphy RN) [...] 6 HOURS PRN, Starting on Fri06/17/22 at 07, Until Discontinued, Nausea, Vomiting
Administer if oral route cannot be used.
Reason for Visit (unrecogniz ed section and content) Reason Comments Eye Pain Reason Comments Follow-up FOR RECORDS PERTAINING TO PATIENTS WHO ARE [...] BE BASED ON THE PRIMARY CLINICAL RECORDS. [employer] provides no warranty or guarantee of the accuracy or completeness of information in this document.
[2023-08-26] MEDS: 0.9 % SODIUM CHLORIDE 1,000 ML 100 ML IV (20:59)
[2023-08-26] MEDS: ENOXAPARIN SODIUM 30 MG/0.3 ML SYRINGE SUBQ (21:04)
[2023-08-26] MEDS: CLONIDINE HCL 0.1 MG TABLET 0.100000000000000006 MG PO (21:04)
[2023-08-26] MEDS: CARVEDILOL 25 MG TABLET PO (21:04)
[2023-08-26] MEDS: ISOSORBIDE MONONITRATE 30 MG TAB.ER.24H PO (21:04)
[2023-08-26] MEDS: TRAZODONE HCL 50 MG TABLET PO (21:05)
[2023-08-26] MEDS: TICAGRELOR 90 MG TABLET PO (21:23)
[2023-08-27] VITALS (8 sets, daily range): BP systolic 126–156; BP diastolic 73–88; PULSE 65–97; TEMP 36.4; O2SAT 92–96
[2023-08-27 04:52] LABS: Basophils Percent Auto 0.2 % (0.2-2.0); Immature Granulocytes Abs Auto 0.23 10^3/uL (0.00-0.03); Lymphocytes Absolute Auto 1.2 10^3/uL (1.2-3.8); Lymphocytes Percent Auto 10.4 % (20.5-60.0); Mean Corpuscular HGB Conc 31.4 g/dL (29.9-35.2); Mean Corpuscular Hemoglobin 27.6 pg (26.7-34.0); Mean Corpuscular Volume 87.7 fL (81.0-99.0); Mean Platelet Volume 9.3 fL (9.5-13.5); Monocytes Absolute Auto 0.1 10^3/uL (0.3-0.8); Monocytes Percent Auto 0.6 % (1.7-12.0); Neutrophils Absolute Auto 9.7 10^3/uL (1.4-6.5); Neutrophils Percent Auto 86.8 % (43.0-75.0); Platelet Count 270 10^3/uL (150-450); Red Blood Count 3.99 10^6/uL (4.20-5.40); Red Cell Distribution Width 18.6 % (11.0-15.0); White Blood Count 11.2 10^3/uL (4.0-11.0)
[2023-08-27 04:53] LABS: pH VBG 7.403 (7.330-7.430)
[2023-08-27 04:54] LABS: PCO2 VBG 35.3 mmHg (40.0-52.0)
[2023-08-27 05:28] LABS: Alanine Aminotransferase 13 U/L (14-59); Albumin Globulin Ratio 1.1; Albumin Level 3.2 g/dL (3.4-5.0); Alkaline Phosphatase 127 U/L (46-116); Anion Gap 15.2; Aspartate Amino Transferase 14 U/L (15-37); BUN Creatinine Ratio 18.1; Bilirubin Total 0.4 mg/dL (0.2-1.0); Calcium 9.2 mg/dL (8.5-10.1); Carbon Dioxide 22.2 mmol/L (21.0-32.0); Chloride 108 mmol/L (98-107); Estimated GFR (African America 40 (>=60); Estimated GFR (Non-African Ame 33 (>=60); Globulin 2.8 g/dL; Glucose 148 mg/dL (74-106); Potassium 4.4 mmol/L (3.5-5.1); Sodium 141 mmol/L (136-145)
[2023-08-27] MEDS: PREDNISONE 20 MG TABLET 40 MG PO (08:08)
[2023-08-27] MEDS: ASPIRIN 81 MG TABLET.DR PO (08:09)
[2023-08-27] MEDS: AMLODIPINE BESYLATE 5 MG TABLET PO (08:09)
[2023-08-27] MEDS: ISOSORBIDE MONONITRATE 30 MG TAB.ER.24H PO (08:09)
[2023-08-27] MEDS: ATORVASTATIN CALCIUM 40 MG TABLET 80 MG PO (08:09)
[2023-08-27] MEDS: TICAGRELOR 90 MG TABLET PO (08:10)
[2023-08-27] MEDS: CLONIDINE HCL 0.1 MG TABLET 0.100000000000000006 MG PO (08:10)
[2023-08-27] MEDS: CARVEDILOL 25 MG TABLET PO (08:10)
[2023-08-27] MEDS: OMEPRAZOLE 40 MG CAPSULE.DR PO (08:10)
[2023-08-27] MEDS: FERROUS SULFATE 325 MG TABLET PO (08:10)
--- NOTE | 2023-08-27 08:51 | CM.NOTE ---
Medicare Outpatient Observation Notice discussed with pt, pt verbalizes understanding and signs paper. Original given to pt and copy placed in pt's chart.
[2023-08-27] MEDS: SODIUM CHLORIDE 0.9% IV (09:50)
[2023-08-27] MEDS: MAGNESIUM SULFATE IV (09:50)
--- NOTE | 2023-08-27 10:33 | CM.NOTE ---
Rounds made with Dr. Melton, pt will discharge back to [facility] today.
--- NOTE | 2023-08-27 10:58 | SWNOTE1 ---
Pt is from [facility] and plans on returning. Pt will be discharged today. Pt would like OR to transport if possible. ANABELLE reached out to Lesa at [facility] and they do not have transport available today for pt. ANABELLE let pt know and she is alright with trips. ANABELLE called trips and set up transport for 1:00pm. ANABELLE notified nursing and Gabi the [employer] BUSINESS ANALYST.
[2023-08-27] MEDS: IPRATROPIUM/ALBUTEROL SULFATE 3 ML AMPUL.NEB IH (11:16)
[2023-08-27] MEDS: BUDESONIDE 0.5 MG/2 ML AMPULE NEB IH (11:16)
--- NOTE | 2023-08-27 11:17 | P.HP_ITS ---
<Statement entered by Shaikh Linh MD - 08/27/23 13:05> This documentation has been reviewed and approved. Patient seen and examined. Doing well. Denies shortness of breath. Has mild cough. Stable for discharge Patient's medical records reviewed, case discussed with Gabi and agree with her clinical decision and treatment plan as outlined in her note Exam Frail appearing, comfortable Normal RR, Mild wheezing on exam. No rhonchi, no resp distress Normal HR, no murmur Assessment and Plan SOB likely sec to rhinovirus Viral URTI Reactive airway disease CAD Patient improved with inhaled duonebs and systemic steroids. Stable for discharge on steroid taper. HPI H&P: HPI History of Present Illness Chief complaint: Difficulty Breathing, Shortness of Breath, URI Narrative: 08/27/23 0910 This is an 87-year-old female patient with an extensive past medical history as outlined below including CVA, COPD/Asthma, GERD, HTN, and CAD; who presented to the ED yesterday afternoon from a local assisted living facility complaining of URI symptoms and chest congestion. The patient reports onset of URI symptoms about 1 week ago with rhinorrhea and occasional coughing. She also experienced body aches, pleuritic pain with deep breath, chills, and subjective fevers. She noted that her chest felt tight and she was wheezing. She denies other chest pain, N/V/D, or any other acute complaint. She was sent to the ED by the nurse at her assisted living facility for further evaluation yesterday afternoon. Workup in the ED revealed tachypnea (28 bpm), stable CKD 3B, and a respiratory panel positive for rhinovirus. Chest x-ray was negative for acute disease. A CTA of the chest was also obtained and this was negative for PE but did note a moderate to large hiatal hernia with the stomach noted to be in the thorax. ER provider noted the patient was wheezing and appeared to have a reactive airway. She was admitted in observation to the hospitalist service for her reactive airway disease and dyspnea. At the time of my exam the patient is resting comfortably in a bedside chair having just finished her breakfast. She reports feeling improved since admission but her chest still feels a little tight . She has a minimally productive cough of clear sputum. Her cough is reactive and spasmodic. She denies any known history of asthma or COPD and does not have a tobacco abuse history. (Further review of the pt's PMHx reveals known COPD and Asthma and the pt may have mild dementia contributing to her lack of knowledge of this history.) She reports that her breathing treatments improve her respiratory status significantly. We will give a dose of mag sulfate IVPB today for bronchodilation. As she is feeling improved and her symptoms can be managed outpatient, she is being discharged back to the assisted living facility in stable condition. Will order an HFA & Pulmicort inhalers and steroid taper at discharge. Opioid HPI Opioid Management Most Recent Opioid Data: Last Pain Scale 0 08/26/23 22:07 Last Pain Assessment 08/27/23 11:38 Last ORT Total Score 0 08/26/23 21:13 Last ORT Risk Category Low Risk 08/26/23 21:13 Review of Systems ROS Status of ROS 10 or more systems reviewed and unremark able except as noted in history and below [facility] Medical History (Updated 08/27/23 @ 11:51 by Gabi Zimmer NP) Bronchitis ?J40 - Bronchitis, not specified as acute or chronic (ICD-10) Sciatica ?M54.30 - Sciatica, unspecified side (ICD-10) Weakness ?R53.1 - Weakness (ICD-10) Acute right eye pain ?H57.11 - Ocular pain, right eye (ICD-10) Carotid artery stenosis ?I65.29 - Occlusion and stenosis of unspecified carotid artery (ICD-10) GERD (gastroesophageal reflux disease) ?K21.9 - Gastro-esophageal reflux disease without esophagitis (ICD-10) Glaucoma ?H40.9 - Unspecified glaucoma (ICD-10) Hyperlipidemia ?E78.5 - Hyperlipidemia, unspecified (ICD-10) Lymphoma ?C85.90 - Non-Hodgkin lymphoma, unspecified, unspecified site (ICD-10) COPD (chronic obstructive pulmonary disease) ?J44.9 - Chronic obstructive pulmonary disease, unspecified (ICD-10) Anxiety ?F41.9 - Anxiety disorder, unspecified (ICD-10) CVA (cerebral vascular accident) ?I63.9 - Cerebral infarction, unspecified (ICD-10) HTN (hypertension) ?I10 - Essential (primary) hypertension (ICD-10) Iron deficiency ?E61.1 - Iron deficiency (ICD-10) CAD (coronary artery disease) ?I25.10 - Atherosclerotic heart disease of picayune coronary artery without angina pectoris (ICD-10) Family History (Updated 08/26/23 @ 22:52 by Jessica Whitney) Other Family history not known due to adoption Social History (Updated 08/26/23 @ 22:53 by Jessica Whitney) Within the past year, how often did you have a drink containing alcohol: never Within the past year, how often did you have six or more drinks on one occasion: never Score interpretation: A score less than 3 is consistent with normal alcohol consumption. 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 Known occupational exposures/hazards: No Highest level of school completed/degree received: Associate degree: occupational, technical, vocational program Are you now , , , , never or living with a partner: In a typical week, how many times do you talk on the telephone with family, friends, or neighbors: never How often do you get together with friends or relatives: once per week How often do you attend faith or adventism services: 1-3 times per year Do you belong to any clubs or organizations such as faith groups unions, [employer] or athletic groups, or school groups: no Total score: 0 Score interpretation: A score of less than or equal to 1 indicates the most socially isolated. Little interest or pleasure in doing things: not at all Feeling down, depressed, or hopeless: not at all Feel stressed/tense/nervous/anxious/difficulty sleeping: not at all Due to disability, difficulty making decisions: No Do you think of yourself as: straight/heterosexual Gender Identity: female Meds Home Medications and Allergies Home Medications ?Medication ?Instructions ?Recorded ?Confirmed ?Type amlodipine 5 mg tablet 5 mg PO DAILY 03/26/23 08/26/23 History aspirin 81 mg tablet,delayed 81 mg PO DAILY 03/26/23 08/26/23 History release (Adult Aspirin Regimen) atorvastatin 80 mg tablet 80 mg PO DAILY 03/26/23 08/26/23 History carvedilol 25 mg tablet 25 mg PO Q12H 03/26/23 08/26/23 History clonidine HCl 0.1 mg tablet 0.1 mg PO Q12H 03/26/23 08/26/23 History cyclosporine 0.09 % eye drops in a 1 drp ophthalmic (eye) Q12H 03/26/23 08/26/23 History dropperette (Cequa) docusate sodium 100 mg capsule 100 mg PO BID PRN constipation 03/26/23 08/26/23 History (Col-Rite) ferrous sulfate 325 mg (65 mg 325 mg PO DAILY 03/26/23 08/26/23 History iron) tablet (Feosol) ipratropium bromide 21 mcg (0.03 2 spray intranasal TID PRN allergy 03/26/23 08/26/23 History %) nasal spray symptoms isosorbide mononitrate 30 mg 30 mg PO BID 03/26/23 08/26/23 History tablet,extended release 24 hr ondansetron HCl 4 mg tablet 4 mg PO Q8H PRN nausea and vomiting 03/26/23 08/26/23 History pantoprazole 40 mg tablet,delayed 40 mg PO DAILY 03/26/23 08/26/23 History release spironolactone 25 mg tablet 25 mg PO DAILY 03/26/23 08/26/23 History ticagrelor 90 mg tablet (Brilinta) 90 mg PO Q12H 03/26/23 08/26/23 History trazodone 50 mg tablet 50 mg PO DAILY PRN insomnia 03/26/23 08/26/23 History albuterol sulfate 90 mcg/actuation 2 inh inhalation Q4H PRN shortness 08/27/23 Rx aerosol inhaler of breath or wheezing #6.7 grams budesonide 180 mcg/actuation 1 inh inhalation BID #1 ea 08/27/23 Rx breath activated powder inhaler (Pulmicort Flexhaler) prednisone 10 mg tablet See Rx Instructions .Route 08/27/23 Rx .COMPLEX 12 days #42 tabs Allergies Allergy/AdvReac Type Severity Reaction Status Date / Time Penicillins Allergy Severe Verified 03/26/23 10:06 lisinopril Allergy Unknown Verified 03/26/23 10:06 metaxalone [From Skelaxin] Allergy Unknown Verified 03/26/23 10:06 Exam Constitutional Vital Signs, click to edit/add: Last Vital Signs Temp 97.5 F L 08/27/23 04:12 Pulse 90 08/27/23 10:00 Resp 18 08/27/23 04:12 BP 126/73 08/27/23 08:09 Pulse Ox 96 08/27/23 04:12 O2 Del Method Room Air 08/27/23 04:12 Common normals: no apparent distress, oriented x3, alert and well nourished General appearance: cooperative Orientation/consciousness: Yes awake HENMT Common normals: normocephalic, head/scalp atraumatic, hearing grossly normal bilaterally, external nose normal and moist oral mucous membranes Eye Common normals: PERRL, EOMs intact bilaterally, conjunctivae normal and no scleral icterus Alignment: alignment normal Eyelid: eyelids normal Neck & C-Spine Common normals: full ROM, supple and no JVD Chest Common normals: inspection of chest normal Chest: symmetrical chest wall rise Respiratory Common normals: normal respiratory effort, no retractions and no use of accessory muscles Effort & inspection: able to speak in complete sentences Auscultation: wheezes (Faint I&E wheezing scattered throughout) and diminished lung sounds (throughout) Cardio Common normals: no JVD, regular rate, regular rhythm, S1 normal heart sound, S2 normal heart sound, no gallops, no clicks, no murmurs, no rub and peripheral pulses 2+ throughout GI Common normals: Normal to inspection, nondistended, normoactive bowel sounds present, soft to palpation, non-tender, no hepatosplenomegaly, no masses and no bruits Bladder/kidney exam: bladder normal to palpation Back & Pelvis Common normals: thoracic and lumbar spine normal to inspection Extremity Common normals: normal capillary refill and no pedal edema General: normal exam except as noted; no clubbing and no cyanosis Neuro Axel Coma Scale: GCS not evaluated Common normals: CN's II-XII intact bilaterally, moves all extremities, no focal motor deficits and no sensory deficits noted Speech: speech normal Motor exam: strength 5/5 throughout Psych Common normals: mental status grossly normal, thought process normal, affect normal and activity/motor behavior normal Results Labs Labs: Short CBC 08/26/23 08/27/23 Range/Units 17:19 04:37 WBC 8.4 11.2 H (4.0-11.0) 10^3/uL Hgb 12.0 11.0 L (12.0-16.0) g/dL Hct 37.5 35.0 L (36.0-48.0) % Plt Count 271 270 (150-450) 10^3/uL BMP 08/26/23 08/27/23 17:19 04:37 Sodium 141 141 Potassium 4.5 4.4 Chloride 105 108 H Carbon Dioxide 27.7 22.2 BUN 29.0 H 27.0 H Creatinine 1.40 H 1.49 H Glucose 109 H 148 H Calcium 9.6 9.2 Liver Function 08/26/23 08/27/23 Range/Units 17:19 04:37 Total Bilirubin 0.4 0.4 (0.2-1.0) mg/dL AST 13 L 14 L (15-37) U/L ALT 14 13 L (14-59) U/L Alkaline Phosphatase 143 H 127 H (46-116) U/L Albumin 3.9 3.2 L (3.4-5.0) g/dL ABG ABG results: 08/26/23 08/27/23 17:19 04:37 VBG pH 7.355 7.403 VBG pCO2 47.8 35.3 L Pulse Oximetry Attestation: I have reviewed the pertinent pulse oximetry results. Imaging Chest x-ray: Attestation: I have reviewed the pertinent imaging results. Radiologist's impression: IMPRESSION: No acute findings. CTA Chest: Attestation: I have reviewed the pertinent imaging results. Radiologist's impression: IMPRESSION: No evidence of pulmonary embolus or acute intrathoracic abnormality. Moderate to large hiatal hernia. The whole stomach is noted within the thorax. Assessment and Plan Assessment and Plan (1) Reactive airway disease with wheezing: Assessment and Plan: Acute * Adm observation * Acute exacerbation of suspected baseline COPD/Asthma in setting of acute rhinovirus - see below * Duonebs q4h PRN * Pulmicort nebs BID * Solumedrol 125 mg IVP x 1 in ED, then Prednisone 40 mg PO daily * No hypoxia or leukocytosis. * No clinical indication for antibiotics * Mag Sulfate 2gm IVPB now for bronchodilation * D/C home in stable condition (2) Acute upper respiratory infection: Assessment and Plan: Acute * Pos Rhinovirus swab * Likely waning course of illness * supportive care (3) CAD (coronary artery disease): Assessment and Plan: Chronic * Continue home Brilinta, ASA, Coreg, statin (4) Iron deficiency: Assessment and Plan: Chronic * Continue home iron supplementation * Stable (5) HTN (hypertension): Assessment and Plan: Chronic * Continue home amlodipine, Coreg, Clonidine, Imdur, Spironolactone (6) GERD (gastroesophageal reflux disease): Assessment and Plan: Chronic * Continue home PPI (7) Glaucoma: Assessment and Plan: Chronic * Continue home Cequa gtts
--- NOTE | 2023-08-27 12:20 | SWNOTE1 ---
ANABELLE sent dc med rec, dc packet, ER note, H&P, labs and vital to Lesa at [facility] for her to give to Maty HALL.
--- OUTSIDE RECORDS SUMMARY | 2023-08-29 07:13 | XMS_ITS | CCD ---
Author Organization [facility] Care Team Providers Care Park Keeper Name Role Phone Deonte ROSARIO Primary Care Physician [phone] Marline Gutierrez Unavailable Unavailable Deonte Rosario MD [...] EASTON Attending Unavailable ELEONORA EASTON Attending Unavailable Wolf Peres Talubaldo Admitting Unavaila ble LuciaminiWolf Attending Unavaila ble Sarmini, Wolf Talal Referring Unavaila ble Sarmini, Bloom Talal Admitting Unavaila ble LuciaminiWolf Attending Unavaila queta Peres, Wolf Talubaldo Referring Unavaila Nikita Martínez Attending Unavailable Deonte ROSARIO Admitting Unavailable Wolf Peres Attending Unavaila Brunilda Dooley Attending Unavailable Deonte ROSARIO Attending Unavailable eDonte ROSARIO Attending Unavailable Deonte ROSARIO Attending Unavailable Elvi Lovelace Attending Unavailab Deonte Mcneil Attending Unavailable Deonte ROSARIO Attending Unavailable Elvi Lovelace Attending Unavailab Deonte Mcneil Attending Unavailable Deonte ROSARIO Attending Unavailable Allergies Allergy Classification Reported Allergen(s) Allergy Type Date of Onset Reaction(s) Facility (20 sources) Latex; Translations: [Latex] Drug allergy 4 Eruption of skin (disorder), Rash [facility] (20 sources) metaxalone; Translations: [metaxalone] Drug Allergy 3 Dyspnea (finding) [facility] (20 sources) Penicillin; Translations: [penicillin] Drug Allergy Eruption of skin (disorder), Dyspnea (finding) [facility] (20 sources) Shellfish; Translations: [shellfish] Drug allergy [facility] (12 sources) Lisinopril; Translations: [lisinopril] Drug Allergy 3 Angioedema, Angioedema (disorder) [employer] Work Phone: (1 source) Penicillins Propensity to adverse reactions to drug 3 [employer] Work Phone: (1 source) metaxalone Drug Allergy [facility] (2 sources) Lisinopril Propensity to adverse reactions 3 Angioedema [facility] (2 sources) metaxalone Drug Allergy 2 Shortness of breath, Unknown [facility] (2 sources) Penicillins Drug Allergy 2 Rash, Shortness of breath, Unknown [facility] (2 sources) Iodinated Contrast Media Drug Allergy 4 Unknown [facility] (1 source) Contrast media; Translations: [Contrast Dye] Propensity to adverse reactions (disorder) [facility] Repository (1 source) Povidone-Iodine ; Translations: [Betadine] Drug Allergy [facility] Repository Medications Current Medications Medication Drug [...] Daily, # 30 tab(s), Refills(s) 5, Pharmacy: [facility] 1155, 162, cm, 11/30/21 15:06:00 EDT, Height/Length Dosing, 62, kg, 11/30/21 15:06:00 EDT, Weight Dosing Start Date: 12/14/21 Status: Ordered atorvastatin 80 mg oral tablet (20 sources) HMG-CoA Reductase Inhibitor Start: 02-13-2021 take 1 tablet by mouth at bedtime atorvastatin 80 mg Tab 80 mg = 1 tab(s), Oral, Bedtime, # 90 tab(s), Refills(s) 0, Pharmacy: [facility], 157, cm, 11/26/20 10:30:00 EDT, Height/Length Dosing, 68, kg, 11/26/20 10:30:00 EDT, Weight Dosing Start Date: 02/13/21 Status: Ordered carvedilol 25 mg oral tablet (15 sources) alpha-Adrenergic Nelly, beta-Adrenergic Nelly Start: 07-10-2022 take 1 tablet by mouth twice daily carvedilol 25 mg Tab 25 mg = 1 tab(s), Oral, BID, # 180 tab(s), Refills(s) 3, Pharmacy: [facility]5, 162, cm, 07/08/22 10:29:00 EST, Height/Length [...] BID, # 180 tab(s), Refills(s) 3, Pharmacy: [facility] 1155, 157, cm, 12/22/19 12:26:00 [...] # 30 tab(s), Refills(s) 5, Pharmacy: [facility], 157, cm, 07/03/21 16:18:00 EST, Height/Length [...] 0 04/15/2023 Active Start: 01-24-2021 Atrovent 0.03% [place] 2 spray(s), Nasal, TID Other (see comment), 1 EA, Refill(s) 1, [facility], 157, cm, 11/26/20 10:30:00 EDT, Height/Length [...] # 60 tab(s), Refills(s) 11, Pharmacy: [facility], 157.5, cm, 07/31/22 13:30:00 EDT, Height/Length Dosing, 61, kg, 07/31/22 13:30:00 EDT, Weight Dosing Start Date: 07/31/22 Status: Ordered Start: 11-02-2020 take 1 tablet by laurie th once daily in the morning isosorbide mononitrate 30 mg ER Tab 30 mg = 1 tab(s), Oral, qAM, # 30 tab(s), Refills(s) 5, Pharmacy: [facility], 162, cm, 10/31/20 13:58:00 EDT, Height/Length Dosing, [...] BID, # 90 tab(s), Refills(s) 0, Pharmacy: [facility], 157, cm, 11/26/20 10:30:00 EDT, Height/Length [...] BID, # 270 tab(s), Refills(s) 3, Pharmacy: [facility] 1155, 157, cm, 03/30/20 14:40:00 EST, Height/Length [...] Daily, # 90 tab(s), Refills(s) 3, Pharmacy: [facility], 157, cm, 03/30/20 14:40:00 EST, Height/Length Dosing, 66.2, kg, 03/30/20 14:40:00 EST, Weight Dosing Start Date: 03/30/20 Status: Ordered Start: 03-30-2020 take 1 tablet by laurie once daily pantoprazole 40 mg Oral EC Tab 40 mg, Oral, Daily, # 90 tab(s), Refills(s) 3, Pharmacy: [facility] 1155, 157, cm, 03/30/20 14:40:00 EST, Height/Length Dosing, 66.2, kg, 03/30/20 14:40:00 EST, Weight Dosing Start Date: 03/30/20 Status: Ordered polyethylene glycol 3350 74954 mg powder for oral solution (20 sources) [...] day(s), # 21 tab(s), Refills(s) 0, Pharmacy: [facility] 1155, 157, cm, 02/07/23 13:05:00 EDT, Height/Length [...] bedtime), # 15 tab(s), Refills(s) 5, Pharmacy: [facility] 1155, 157, cm, 03/13/21 13:41:00 EDT, Height/Length [...] Coronary atherosclerosis; Translations: [Atherosclerotic heart disease of [place] coronary artery without angina pectoris] Onset: 01-22-2022 [...] current use of drug therapy; Translations: [Other retirement (current) drug therapy] Onset: 07-31-2022 Episodic Other [...] Onset: 06-18-2022 Episodic Other aftercare (1 source) custodial (current) use of aspirin; Translations: [PANEL EDGE PAINTER CURRENT USE OF ASPIRIN] Onset: 06-18-2022 Episodic Other aftercare (1 source) Other retirement (current) drug therapy; Translations: [OTH PANEL EDGE PAINTER CURRENT DRUG THERAPY] Onset: 06-18-2022 Episodic Other [...] Name Value Interpretation Reference Range Facil ity Patient Educationon 08-27-19 24 Patient Education Immunology Asthma Action Plan, Adult An asthma action plan helps you understand how to manage your asthma and what to do when you have an asthma attack. The action plan is a color-coded plan that lists the symptoms that indicate whether or not your condition is under control and what actions to take. ? If you have symptoms in the green zone, you are doing well. ? If you have symptoms in the yellow zone, you are having problems. ? If you have symptoms in the red zone, you need medical care right away. Follow the plan that you and your health care provider develop. Review your plan with your health care provider at each visit. What triggers your asthma? Knowing the things that can trigger an asthma attack or make your asthma symptoms worse is very important. Talk to your health care provider about your asthma triggers and how to avoid them. Record your known asthma triggers here: What is your personal best peak flow reading? If you use a peak flow meter, determine your personal best reading. Record it here: Green zone This zone means that your asthma is under control. You may not have any symptoms while you are in the green zone. This means that you: ? Have no coughing or wheezing, even while you are working or playing. ? Sleep through the night. ? Are breathing well. ? Have a peak flow reading that is above (80% of your personal best or greater). If you are in the green zone, continue to manage your asthma as directed. ? Take these medicines every day: ? Controller medicine and dosage: ? Controller medicine and dosage: ? Controller medicine and dosage: ? Controller medicine and dosage: ? Before exercise, use this reliever or rescue medicine: Call your health care provider if you are using a reliever or rescue medicine more than 2?3 times a week. Yellow zone Symptoms in this zone mean that your condition may be getting worse. You may have symptoms that interfere with exercise, are noticeably worse after exposure to triggers, or are worse at the first sign of a cold (upper respiratory infection). These may include: ? Waking from sleep. ? Coughing, especially at night or first thing in the morning. ? Mild wheezing. ? Chest tightness. ? A peak flow reading that is to (50?79% of your personal best). If you have any of these symptoms: ? Add the following medicine to the ones that you use daily: ? Reliever or rescue medicine and dosage: ? Additional medicine and dosage: Call your health care provider if: ? You remain in the yellow zone for hours. ? You are using a reliever or rescue medicine more than 2?3 times a week. Red zone Symptoms in this zone mean that you should get medical help right away. You will likely feel distressed and have symptoms at rest that restrict your activity. You are in the red zone if: ? You are breathing hard and quickly. ? Your nose opens wide, your ribs show, and your neck muscles become visible when you breathe in. ? Your lips, fingers, or toes are a bluish color. ? You have trouble speaking in full sentences. ? Your peak flow reading is less than (less than 50% of your personal best). ? Your symptoms do not improve within 15?20 minutes after you use your reliever or rescue medicine (bronchodilator). If you have any of these symptoms: ? These symptoms represent a serious problem that is an emergency. Do not wait to see if the symptoms will go away. Get medical help right away. Call your local emergency services (911 in the [place] Do not drive yourself to the hospital. ? Use your reliever or rescue medicine. ? Start a nebulizer treatment or take 2?4 puffs from a metered-dose inhaler with a spacer. ? Repeat this action every 15?20 minutes until help arrives. Where to find more information You can find more information about asthma from: ? Centers for Disease Control and Prevention: www.cdc.gov ? [employer]: www.lung.org This information is not intended to replace advice given to you by your health care provider. Make sure you discuss any questions you have with your health care provider. Document Revised: 06/21/2021 Document Reviewed: 06/21/2021 [employer] Patient Education ? 2022 [employer] Infectious Disease Upper Respiratory Infection, Adult An upper respiratory infection (URI) affects the nose, throat, and upper airways that lead to the lungs. The most common type of URI is often called the common cold. URIs usually get better on their own, without medical treatment. What are the causes? A URI is caused by a germ (virus). You may catch these germs by: ? Breathing in droplets from an infected person's cough or sneeze. ? Touching somethi (more content not included)... Normal [facility] Physician Referralon 024 Physician Referral [id number] .[id number] Normal [facility] Family Medicine Office/Clini c Noteon 08-03-2023 Family Medicine [...] activity. 4. 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 Normal [facility] Comment on above: Result Comment: Elec [...] enteric coated tablet) ipratropium nasal (Atrovent 0.03% [place]) isosorbide mononitrate (isosorbide mononitrate 30 mg ER [...] What to do next Scheduled Follow-Up Appointments Friday. 2023 3:00 PM EDT With: PAULO HINOJOSA, Deonte Turpin Where: [facility] Normal [address], [place] [address]- \.br\ Medications\.br\ What How Much When Why [...] day Anemia\.br\ Unchanged ipratropium nasal (Atrovent 0.03% [place]) 2 Sprays Nasal Inhalation 3 times a [...] Cardiac arrest\.br\ COPD\.br\ Glaucoma\.br\ H/O: TIA\.br\ HEMATURIA\.br\ [place] - myocardial infarction\.br\ Stage 3 chronic kidney [...] on:\.br\ ? \.br\ Blood tests.\.br\ ? \. [facility] Patient Educationon 08-01-19 Patient Education Endocrinology Hyperglycemia [...] instructions at home: General instructions ? Take ixen-ray-cysgzdk and prescription medicines only as told by [...] follow-up v (more content not included)... Normal [facility] Physician Orderon 07-22-2023 Physician Order [id number] 0TIFF [facility] Correction Recordson Correction Records [id number]#1.0 0TIFF [facility] ED Note-Physicianon 06-26-19 ED Note-Physician Basic [...] and Complexity of Problems Differential Diagnosis: [] [facility] Data External documents reviewed: [] My EKG [...] discharged, and instructed to immediately go to [place], which she is understanding with. Shared [...] [address] [place] [address] [place] [address]- Business (1) Additional Instructions: Immediately go to Dr. Easton's office at 1 PM for your appointment. Deonte ROSARIO In 3 days [facility] [address] [place] [address]- Business (1) Additional Instructions: Patient Education Corneal Abrasion Attestation Patient seen and evaluated by the physician assistant shift supervisor. Attending physician was present in the emergency department and supervised care. This visit was performed by both the physician and an APC. I performed all aspects of the MDM as documented. This report was transcribed using voice recognition software. Every effor (more content not included)... Normal [facility] Comment on above: Result Comment: Elec [...] enteric coated tablet) ipratropium nasal (Atrovent 0.03% [place]) isosorbide mononitrate (isosorbide mononitrate 30 mg ER [...] Follow-Up Appointments Friday 1:00 PM EDT Where: [facility] Normal [facility] BMPon 06-25-2023 Anion gap [Moles/Vol] 14 mmol/L Normal -16 [facility] Comment on above: Performed By: #### 2 544809, 6034754, 08406038, 37632387, 4336520 ####[facility] [address] [place] [address] BUN/Creat Ratio 15 No Units Normal 10-20 [facility] Comment on above: Performed By: #### 2 776037, 3985510, 18630104, 42465455, 4436930 ####[facility] [address] [place] [address] Calcium [Mass/Vol] 10.0 mg/dL Normal 8.9-11.1 [facility] Comment on above: Performed By: #### 2 870956, 8275824, 92283586, 49597540, 6853857 ####[facility] [address] [place] [address] Chloride [Moles/Vol] 107 mmol/L Normal 101-111 [facility] Comment on above: Performed By: #### 2 123660, 6506287, 32581752, 29613816, 7501778 ####[facility] [address] [place] [address] CO2 [Moles/Vol] 24 mmol/L Normal 21-31 [facility] Comment on above: Performed By: #### 2 788310, 6981940, 27445881, 70083056, 5659328 ####[facility] [address] [place] [address] Creatinine [Mass/Vol] 1.4 mg/dL High 0.5-1.3 [facility] Comment on above: Performed By: #### 2 588411, 7623576, 46595895, 95593997, 8350086 ####[facility] [address] [place] [address] Glucose [Mass/Vol] 126 mg/dL Normal 55-199 [facility] Comment on above: Performed By: #### 2 469957, 9641834, 91411260, 82087506, 0205728 ####[facility] [address] [place] [address] Potassium [Moles/Vol] 3.8 mmol/L Normal 3.5-5.3 [facility] Comment on above: Performed By: #### 2 742252, 1181221, 24012142, 97283306, 9665831 ####[facility] [address] [place] [address] Sodium [Moles/Vol] 141 mmol/L Normal 135-145 [facility] Comment on above: Performed By: #### 2 251620, 8162221, 55495414, 00951467, 1646826 ####[place] [address] [place] [address] Urea nitrogen [Mass/Vol] 21 mg/dL Normal 5-21 [facility] Comment on above: Performed By: #### 2 073174, 1368342, 09756894, 16248518, 0806977 ####[address] [address] CBC w/ Auto Diffon 4 Basophil Absolute 0.1 E9/L Normal 0.0-0.2 [facility] Comment on above: Performed By: #### 2 584459, 4253563, 89474005, 81861271, 0440473 ####[facility] [address] [place] [address] Basophils/100 WBC (Bld) 0.9 % Normal 0.0-2.0 [facility] Comment on above: Performed By: #### 2 971595, 5044085, 39182909, 56435703, 7575420 ####[facility] [address] [place] [address] Eos Absolute 0.2 E9/L Normal 0.0-0.5 [facility] Comment on above: Performed By: #### 2 603639, 0743384, 98471690, 16480642, 1415488 ####[facility] [address] [place] [address] Eosinophils/100 WBC (Bld) 1.9 % Normal 0.0-8.0 [facility] Comment on above: Performed By: #### 2 062951, 9866400, 88920181, 58523509, 0373430 ####[address] [address] Erythrocyte distribution width (RBC) [Ratio] 16.8 % High 10.9-14.2 [facility] Comment on above: Performed By: #### 2 769209, 3750741, 11621144, 63087376, 7240703 ####[address] [address] Hematocrit (Bld) [Volume fraction] 40.0 % Normal 34.0-46.0 [facility] Comment on above: Performed By: #### 2 358702, 8666259, 54705956, 21144007, 4844165 ####[address] [address] Hemoglobin (Bld) [Mass/Vol] 12.5 g/dL Normal 12.0-16.0 [facility] Comment on above: Performed By: #### 2 606153, 5470416, 13355506, 00494837, 6621294 ####[address] [address] Lymph Absolute 1.3 E9/L Normal 1.0-4.0 [facility] Comment on above: Performed By: #### 2 023363, 9471880, 87082685, 51190897, 9432735 ####[address] [address] Lymphocytes/100 WBC (Bld) 12.9 % Low 14.0-50.0 [facility] Comment on above: Performed By: #### 2 806145, 6336462, 98187955, 90554576, 2498890 ####[address] [address] MCH (RBC) [Entitic mass] 26.4 pg Low 27.0-34.0 [facility] Comment on above: Performed By: #### 2 559483, 5715313, 91980611, 67555038, 8117819 ####[address] [place] [address] MCHC (RBC) [Mass/Vol] 31.7 g/dL Normal 31.4-36.0 [facility] Comment on above: Performed By: #### 2 273199, 9239048, 91429230, 59119521, 5055834 ####[address] [address] MCV (RBC) [Entitic vol] 83.3 fL Normal 80.0-100.0 [facility] Comment on above: Performed By: #### 2 128031, 5182567, 20409052, 48428842, 4925568 ####[address] [address] [place] Absolute 0.6 E9/L Normal 0.2-1.0 [facility] Comment on above: Performed By: #### 2 300523, 5672374, 63599270, 04918463, 3236954 ####[address] [address] Monocytes/100 WBC (Bld) 6.4 % Normal 4.0-14.0 [facility] Comment on above: Performed By: #### 2 914731, 1726004, 22587764, 40500082, 1993713 ####[address] [address] Neutro Absolute 7.8 E9/L High 2.0-7.5 [facility] Comment on above: Performed By: #### 2 721472, 1779434, 05421304, 54477152, 8397759 ####[address] [place] [address] Neutro Auto 77.9 % High 36.0-75.0 [facility] Comment on above: Performed By: #### 2 686812, 5747209, 97410324, 54115561, 0324607 ####[facility] [address] [place] [address] Platelet 307.0 E9/L Normal 150.0-500.0 [facility] Comment on above: Performed By: #### 2 776915, 1980794, 55071380, 53752465, 7938072 ####[facility] [address] [place] [address] Platelet mean volume (Bld) [Entitic vol] 7.5 fL Normal 6.4-10.8 [facility] Comment on above: Performed By: #### 2 433784, 2581518, 20433867, 51265478, 7755374 ####[facility] [address] [place] [address] RBC 4.8 E12/L Normal 4.3-5.9 [facility] Comment on above: Performed By: #### 2 617327, 7178309, 88124558, 37019439, 1380786 ####[facility] [address] [place] [address] WBC 10.0 E9/L Normal 4.0-11.0 [facility] Comment on above: Performed By: #### 2 003812, 6858428, 70874757, 11500700, 1824103 ####[facility] [address] [place] [address] CHEMISTRYOrdered By: SYSTEM SYSTEM on 06-25-2023 Anion [...] CRPon 06-25-2023 CRP [Mass/Vol] mg/L Normal <=1.9 [facility] Comment on above: Performed By: #### 2 131870, 4499859, 14550283, 86802148, 9584775 ####[facility] [address] [place] [address] Consent for Treatmenton 06-12 Consent for Treatment [id number] 0TIFF Normal [facility] Discharge Instructionson Discharge Instructions [id number]. 00TIFF Normal [facility] ED Clinical Summaryon 2023 ED Clinical Summary [place] [address] ED Clinical Summary Person Information Name: PIEDAD ALATORRE [place] Age: 87 Years : 1935 Sex: Female Language: Somali PCP: Deonte ROSARIO MD Marital Status: Visit [...] 06/25/2023 12:27:51 06/25/2023 12:27:51 06/25/2023 12:27:51 ADDRESS: [address] [place] [address] [place] [id number] PHYS DOC NOTES: MEDICAL INFORMATION: Prescriptions Given: Medications [...] day. Refills: 5. ipratropium nasal (Atrovent 0.03% [place]) 2 Sprays Nasal Inhalation 3 times a [...] up: With: Address: When: Eleonora Easton [address] [place] [id number] Business (1) In 3 days 06/28/2023 Comments: Immediately go to Dr. Easton's office at 1 PM for your appointment. With: Address: When: Deonte ROSARIO [facility] [address], [place] [address] Business (1) In 3 days DIAGNOSIS: Right corneal abrasion Normal [facility] ED Patient Education Noteon 06-25-2023 ED Patient [...] condition may be caused by: ? A hinging machine operator the eye. ? A gritty or irritating [...] in diseases and conditions of the eye ([place]). This condition may be diagnosed based on your medical history, symptoms, and an eye exam. Before the eye exam, numbing drops may be put into your eye. You may also have dye put in your eye with a dropper or a small paper strip. The dye makes the abrasion easy to see when your [place] examines your eye with a light. Your [place] may look at your eye through an [...] you start to feel better. ? Take gkxi-ejd-ftyweof and prescription medicines only as told by your health care provider. ? Ask your health care provider if the medicine prescribed to you: ? Requires you to avoid driving or using heavy machinery. ? Can cause constipation. You may need to take these actions to prevent or treat constipation: ? Drink enough fluid to keep your urine pale yellow. ? Take owqs-rig-ulnzlcn or prescription medicines. ? Eat foods that [...] wearing an eye patch. Your ability to a class lineman distances will be impaired. ? Follow instructions [...] A corne (more content not included)... Normal [facility] ED Patient Summaryon 024 ED Patient Summary [place] [id number] Patient Discharge Instructions Person Information Name: PIEDAD ALATORRE Age: 87 Years Arrival Date: 06/25/2023 09:07:31 Discharge Diagnosis: Right corneal abrasion Primary Care Physician: Deonte ROSARIO MD Provider Information Primary Provider: Gallito Govea, Nikita Arias Advanced Merchandising Execution Associate:None The exam and treatment you received in the Emergency Department were for an urgent problem and are not intended as complete care. It is important that you follow up with a doctor, nurse practitioner, or physician?s assistant shift supervisor for ongoing care. If your symptoms become worse or you do not improve as expected and you are unable to reach your usual health care provider, you should return to the Emergency Department. We are available 24 hours a day. PHYLLIS PIEDAD Lainez has been given the following list of patient education materials, prescriptions and follow-up instructions: Follow-up Instructions: With: Address: When: Eleonora Easton [address], [address] [place] [address] Business (1) In 3 days 06/28/2023 Comments: Immediately go to Dr. Easton's office at 1 PM for your appointment. With: Address: When: Deonte ROSARIO [facility] [address], [address], [place] [address] Business (1) In 3 days In the event that this physician does not participate in your insurance network, please consult with your insurance company to find a nearby participating provider. Patient Education Materials: Corneal Abrasion A MESSAGE TO ALL PATIENTS REGARDING OPIOIDS PRESCRIPTION OPIOIDS: WHAT YOU NEED TO KNOW Prescription opioids can be used to help relieve wxdrgxlq-bx-mwsyhs pain and are often prescribed following a [...] about the (more content not included)... Normal [facility] Family Medicine Office/Clini c Noteon 06-25-2023 [...] them. She has CAD and hx of [place] but has not followed with cardiology as [...] artery disease) (I25.10: Atherosclerotic heart disease of [place] coronary artery without angina pectoris) She needs to follow up with cardiology She has not been there for a year. Ordered: [facility] Internal Ambulatory Referral 6. History of CVA [...] Deonte ROSARIO MD, MED In 1 week [facility] [address], [place] [address]- Additional Instructions: Deonte ROSARIO MD, MED [facility] [address], [place] [address]- Additional Instructions: at regular appt but sooner [...] Cardiac arrest COPD Glaucoma H/O: TIA HEMATURIA [place] - myocardial infarction Stage 3 chronic kidney [...] (09/08/2017), Inject (more content not included)... Normal [facility] Comment on above: Result Comment: Elec tronically Signed By: PAULO HINOJOSA, Deonte García\Date and Time Signed: 06/25/23 09:05 EST HEMATOLOGYOrdered [...] Normal 80.0 - 100.0 fL Remisol Heme [place] Absolute 0.6 E9/L Normal 0.2 - 1.0 [...] 16 mm/h Normal 0 - 34 mm/hr [facility] HemeAutoSS Outside Recordson 06-25-2023 Outside Records [id number]#1. 00TIFF Normal [facility] Outside Records [id number]#1. 00TIFF Normal [facility] Outside Records [id number]#1.0 0TIFF Normal [facility] Patient Educationon 06-25-19 Patient Education Neurology Carotid Artery Disease Carotid [...] stress management tips. General instructions ? Take urex-qol-wgdjpce and prescription medicines only as told by your health care provider. ? Keep all follow-up visits as told by your health care provider. This is important. Where to find more information ? [employer]: www.heart.org Get help right away [...] face, or (more content not included)... Normal [facility] Physician Referralon 024 Physician Referral [id number] 03 [id number]#1.0 0TIFF Normal [facility] Pre-Arrival Noteon 4 Pre-Arrival Note Pre-Arrival Summary Name: piedad, Current Date: 06/25/2023 09:20:24 EST Gender: Date of : Age: Pre-Arrival Type: EMS ETA: 06/25/2023 09:33:00 EST Primary Care Physician: Presenting Problem: eye pain x1 month Pre-Arrival User: Sondra Dunlap RN Referring Source: Location: [place] Completion Date/Time: 06/25/2023 09:03:00 [facility] Emergency Department Pre-Hospital Report Form Vital Signs: Pre-Hospital Report: Treatment in Route: Response to Treatment: Misc. Issues: Normal [facility] Sed Rate Automatedon 024 ESR (Bld) [Velocity] 16 mm/h Normal 0-34 [facility] Comment on above: Performed By: #### 2 [id number], [id number], [id number], [id number], [id number] ####[facility] [address] [place] [address] eGFRon 06-25-2023 eGFR 36 mL/min/1.73 m2 Low >=59 [facility] Comment on above: Order Comment: Order added by Discern Expert. Performed By: #### 2 [id number], [id number], [id number], [id number], [id number] ####[place] [address] [place] [address] Correction Recordson 05-26 Correction Records [id number]#1.0 0TIFF [facility] Physician Referralon 023 Physician Referral [id number]#1. 00TIFF Normal [facility] Correction Recordson 05-01 Correction Records [id number]#1.0 0TIFF Normal [facility] Correction Recordson 04-29 Correction Records [id number]#1.0 0TIFF Normal [facility] Correction Records [id number]#1.0 0TIFF Normal [facility] ED Note-Physicianon 04-17-20 ED Note-Physician [id number]#1.0 0TIFF Normal [facility] Consent for Procedure/Surger yon 04-16-2023 Consent for Procedure/Surgery [id number]#1.0 0TIFF Normal [facility] Ambulatory Visit Summaryon 1 06-16-2022 Ambulatory [...] enteric coated tablet) ipratropium nasal (Atrovent 0.03% [place]) isosorbide mononitrate (isosorbide mononitrate 30 mg ER [...] Follow-Up Appointments Friday 12:00 PM EST With: Deonte ROSARIO MD Where: [facility] Normal [address] [place] [address]- \.br\ You Need to Schedule the Following [...] alkaline phosphatase level, pp_set_radiology_ subspecialty, Not Required, [facility]\.br\ Medications\.br\ What How Much When Why Instructions\.br\ [...] concerns \.br\ Unchanged ipratropium nasal (Atrovent 0.03% [place]) 2 Sprays Nasal Inhalation 3 times a [...] Cardiac arrest\.br\ COPD\.br\ Glaucoma\.br\ H/O: TIA\.br\ HEMATURIA\.br\ [place] - myocardial infarction\.br\ STEMI - ST elevation [...] under a microscope (bone marrow biops [facility] Gastroenterology Office/Clin ic Noteon 04-15-2023 Gastroenterology Office/Clinic Note Chief Complaint ER follow up. HPI Staff This is a 87 year old female who presents today for a follow up from [facility] ER on 03/26/23. Patient was advised to go to ED for anemia per Dr Rosario. Patient was seen by Dr Peres for office visit 12/10/22 and had EGD 02/10/23. History of Present Illness Patient is a 87-year-old female who presents for further evaluation following ED visit at outside facility?[facility]. Review of outside record from [facility] indicated patient was evaluated 03/26/2023 and had low RBC of 2.92, H&H of 8.4/27.3, elevated BUN of 27, elevated creatinine of 1.46, elevated alkaline phosphatase of 124. Note indicated patient is from [facility] per [facility]. Previous labs 03/22/23 revealed low H/H [...] Anemia, unspecified) Review of outside record from [facility] indicated patient was evaluated 03/26/2023 and [...] related to poor prep. Discussed referral to [facility] regarding large HH as large HH may [...] or gangrene) Review of outside record from [facility] indicated patient was evaluated 03/26/2023 and had H&H of 8.4/27.3, elevated BUN of 27, elevated creatinine of 1.46, elevated alkaline phosphatase of 124. Review of record indicates patient had previous EGD 02/10/[address] Peres that revealed very large hiatal hernia, mild Schatzki's ring?dilated, lesions in stomach, normal duodenum, no biopsies. Discussed referral to [facility] regarding large HH as large HH may [...] vs. r (more content not included)... Normal [facility] Comment on above: Result Comment: Elec tronically Signed By: Brunilda Redding CNP\.br\Date and Time Signed: 04/15/23 14:32 EST Correction Recordson 04-15 Correction Records [id number]#1.[address]TI[address] [facility] Patient Educationon 04-15-20 Patient Education Hematology Anemia [...] Follow these instructions at home: ? Take uwvh-toi-aspruov and prescription medicines only as told by [...] provider. Document Revised: 07/22/2022 Document Reviewed: 07/22/2022 [employer] Patient Education ? 2022 [employer] Normal [facility] Consent for Immunizationon 1 06-12-2022 Consent for Immunization [id number]#1.0 0TIFF [facility] Nurse Consultation Noteon Nurse Consultation Note [...] mg= 1 tab(s), Oral, Bedtime Atrovent 0.03% [place], 2 spray(s), Nasal, TID, PRN, 1 refills [...] virus vaccine, inactivated 03/04/2023 Given SARS-CoV-2 (COVID-19) [id number] 02/28/2022 Recorded influenza virus vaccine, inactivated 01/22/2022 Given influenza virus vaccine, inactivated 01/2022 Recorded SARS-CoV-2 (COVID-19) mRNA BNT-162b2 vax 05/15/2021 Given pneumococcal 13-valent vaccine 03/13/2021 Given influenza virus vaccine, inactivated 03/13/2021 Given SARS-CoV-2 (COVID-19) mRNA BNT-162b2 vax 07/12/2020 Recorded [facility] pneumococcal 23-valent vaccine 06/22/2020 Recorded SARS-CoV-2 (COVID-19) [...] 23-valent vaccine 01/21/2011 Given Other (see comment) [facility] Home Recordson 04-11 Correction Records [id number]#1.0 0TIFF [facility] Lab Reportson 03-22-2023 Lab Reports [id number]#1.0 0TIFF [facility] Home Recordson 03-18 Correction Records [id number]#1.[address] [facility] Ambulatory Visit Summaryon 1 Ambulatory Visit [...] enteric coated tablet) ipratropium nasal (Atrovent 0.03% [place]) isosorbide mononitrate (isosorbide mononitrate 30 mg ER [...] Appointments Friday 9:40 AM EST With: Where: [facility] Invalid Interpretation Code [address], [place] [address]- \.br\ Friday 1:00 PM EDT \.br\ With:\.br\ Where: [facility] Consent for Flu Vaccineon Consent for Flu Vaccine [id number]#1.0 0TIFF Normal [facility] Family Medicine Office/Clini c Noteon 03-04-2023 [...] artery disease) (I25.10: Atherosclerotic heart disease of [place] coronary artery without angina pectoris) Ordered: Body [...] tobacco non-user (more content not included)... Normal [facility] Comment on above: Result Comment: Elec tronically Signed By: PAULO HINOJOSA, Deonte Turpin\.br\Date and Time Signed: 03/04/23 13:28 EDT Patient [...] Keep all follow-up visits. Medicines ? Take szpr-zsf-hbgmxib and prescription medicines only as told by [...] ? For m (more content not included)... [facility] Postoperative Documentson Postoperative Documents [id number]#1.0 0TIFF [facility] Auth for Release of Medical Recordson 02-13-2023 Auth for Release of Medical Records [id number]#1. 00CD:127 [facility] Consent for Anesthesiaon Consent for Anesthesia [id number]#1. 00CD:127 [facility] Consent for Procedure/Surger yon 02-13-2023 Consent for Procedure/Surgery [id number]#1. 00CD:127 [facility] Discharge Instructionson Discharge Instructions [id number]#1. 00CD:127 Normal [facility] H&P Updateon 02-13-2023 H&P Update [id number]#1. 00CD:127 [facility] Postoperative Documentson Postoperative Documents [id number]#1. 00TIFF [facility] Preoperative Documentson Preoperative Documents [id number]#1. 00CD:127 [facility] Provider Letteron 02-13-2023 Provider Letter February 13, 2023 PIEDAD THISRIRAM [address] [place] [address] [place] [id number] : 1935 Dear Piedad Alatorre , We have been trying to reach you with no success. It is important that you return our call regarding your labs upon receiving this letter. Also, at the time of your call, please provide us with your current information. Thank you for your prompt attention to this matter. Sincerely, [facility] Care [address] [place] [address], [address] [place] [id number] [facility] Progress Note-Physicianon Progress Note-Physician Patient: PIEDAD ALATORRE Age: 87 years Sex: Female : 1935 Associated Diagnoses: None Author: MD Estella, Mike Recinos Postoperative Information Postoperative disposition: Postoperative disposition: To PACU. Optimetrix number: Optimetrix number [id number]. Anesthetic utilized: General. Health Status Allergies: Allergic [...] meets criteria ( To home ). Normal [facility] Comment on above: Result Comment: Elec tronically Signed By: MD Estella, Mike Recinos\.br\Date and Time Signed: 02/12/23 12:09 EDT Progress Note-Physician Patient: PIEDAD ALATORRE Age: 87 years Sex: Female : 1935 Associated Diagnoses: None Author: MD Estella, Mike Recinos Preoperative Information Time patient last ate or [...] Current medications: (Selected) Prescriptions Prescribed Atrovent 0.03% [place]: 2 spray(s), Nasal, TID Other (see comment), 1 EA, Refill(s) 1, [facility], 157, cm, 11/26/20 10:30:00 EDT, Height/Length Dosing, 68, kg, 11/26/20 10:30:00 EDT, Weight Dosing amLODIPine 5 mg Tab: 5 mg = 1 tab(s), Oral, Daily, # 30 tab(s), Refills(s) 11 atorvastatin 80 mg Tab: 80 mg = 1 tab(s), Oral, Bedtime, # 90 tab(s), Refills(s) 0, Pharmacy: [facility], 157, cm, 11/26/20 10:30:00 EDT, Height/Length Dosing, 68, kg, 11/26/20 10:30:00 EDT, Weight Dosing carvedilol 25 mg Tab: 25 mg = 1 tab(s), Oral, BID, # 180 tab(s), Refills(s) 3, Pharmacy: [facility], 162, cm, 07/08/22 10:29:00 EST, Height/Length Dosing, 62.8, kg, 07/08/22 10:29:00 EST, Weight Dosing cloNIDine 0.1 mg tab: 0.1 mg, Oral, BID, # 180 tab(s), Refills(s) 3, Pharmacy: [place] [id number], 157, cm, 12/22/19 12:26:00 EDT, Height/Length Dosing, 63.9, kg, 12/22/19 12:26:00 EDT, Weight Dosing ferrous sulfate 325 mg oral enteric coated tablet: 325 mg = 1 tab(s), Oral, Daily, # 30 tab(s), Refills(s) 5, Pharmacy: [facility] 1155, 157, cm, 07/03/21 16:18:00 EST, Height/Length Dosing, 61.5, kg, 07/03/21 16:18:00 EST, Weight Dosing isosorbide mononitrate 30 mg ER Tab: 30 mg = 1 tab(s), Oral, BID, # 60 tab(s), Refills(s) 11, Pharmacy: [place] [address], 157.5, cm, 07/31/22 13:30:00 EDT, Height/Length Dosing, 61, kg, 07/31/22 13:30:00 EDT, Weight Dosing pantoprazole 40 mg Oral EC Tab: 40 mg, Oral, Daily, # 90 tab(s), Refills(s) 3, Pharmacy: [facility] 115, 157, cm, 03/30/20 14:40:00 EST, Height/Length Dosing, 66.2, kg, 03/30/20 14:40:00 EST, Weight Dosing spironolactone 25 mg Tab: 25 mg = 1 tab(s), Oral, Daily, # 30 tab(s), Refills(s) 5, Pharmacy: [facility] 1155, 157, cm, 03/13/21 13:41:00 EDT, Height/Length Dosing, 61, kg, 03/13/21 13:41:00 EDT, Weight Dosing traZODONE 50 mg Tab: 50 mg = 1 tab(s), Oral, Once a day (at bedtime), # 15 tab(s), Refills(s) 5, Pharmacy: [facility] 1155, 157, cm, 03/13/21 13:41:00 EDT, Height/Length Dosing, 61, kg, 03/13/21 13:41:00 EDT, Weight Dosing valacyclovir 1 g Tab: 1 gm = 1 tab(s), Oral, q8hr, X 7 day(s), # 21 tab(s), Refills(s) 0, Pharmacy: [facility] 1155, 157, cm, 02/07/23 13:05:00 EDT, Height/Length [...] Problems HTN - Hypertension / SNOMED CT 6602514706 / Confirmed Hyperlipidemia / SNOMED CT 26142376 / Confirmed Anxiety disorder / SNOMED CT 293349407 / Confirmed Asthma / SNOMED CT 532231458 / Confirmed Female stress incontinence / SNOMED CT 242962253 / Confirmed Carotid artery stenosis / SNOMED CT 712139360 / Confirmed Lumbar radiculopathy / SNOMED CT 313099781 / Confirmed Intertrigo / SNOMED CT 66786161 / Confirmed Leg weakness / SNOMED CT 742471441 / Confirmed Edema / SNOMED CT 862608655 / Confirmed Hyperglycemia / SNOMED CT 423403504 / Confirmed Insomnia / SNOMED CT 653796131 / Confirmed Stage 3 chronic kidney disease / SNOMED CT 5913002028 / Confirmed Anemia / SNOMED CT 881345241 / Confirmed 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 Normal [facility] Comment on above: Result Comment: Elec tronically Signed By: MD Estella, Mike Recinos\.br\Date and Time Signed: 02/12/23 12:06 EDT Main OR Intraoperative Recor don 02-11-2023 Main OR Intraoperative Record IntraOp Document Type FT Summary Primary Physician: Wolf Peres MD Finalized Date/Time: 02/11/23 11:04:58 Pt. Name: PIEDAD ALATORRE/Sex: 1935 Female Med Rec #: [id number] Physician: Wolf Peres MD Financial #: [id number] Pt. Type: O Room/Bed: Endo 11/09 Admit/Disch: [...] 2 Entry 3 Case Attendee Carlos TAM, DEV OPS ENGINEER, Shreya Reyes MD, Wolf Arana Role Performed DEV OPS ENGINEER Scrub - Primary Surgeon - Primary Time In 02/10/23 13:43:00 02/10/23 13:43:00 02/10/23 13:43:00 Time Out 02/10/23 13:56:00 02/10/23 13:56:00 02/10/23 13:56:00 Procedure EGD(.) EGD(.) EGD(.) Comments Dr. Soria is supervising Last Modified By: Tran Ramirez CST, RN, Ana Maria Oneill RN 02/11/23 11:04:07 02/10/23 13:56:52 02/10/23 13:56:52 Entry 4 Entry 5 Case Attendee Dion TOLBERT, Adele Nesbitt Role Performed Medical Transcription Editor - Primary Staff - Other Time In [...] (If Applicable) PreOp Antibiotic No Time Out Mitti YONATAN, DEV OPS ENGINEER, Queen Leonard Fernando, Shreya Chicas, Larisa HINOJOSA, Wolf Arana, Dion TOLBERT, Jabier Higginbotham Kirstyn K Time Out Complete [...] and tissue Entry 1 Skin Integrity Intact, [place], Warm, and Skin Abnormality No Dry Outcomes [...] Uncrossed? Yes (more content not included)... Normal [facility] Consent for Treatmenton 10-0 Consent for Treatment [id number]#1.0 0CD:127 Normal [facility] Endoscopic Procedure Report - Otheron 02-10-2023 [...] 3. Normal duodenum. Images Procedure images: Rec1_hd_video_2022__ [id number].jpg Rec1_hd_video__ 2_57_17_509.jpg Rec1_hd_video_2022__ 2_56_56_149.jpg Rec1_hd_video_2022__ 2_56_36_078.jpg Rec1_hd_video_2022__ [id number]_56_12_[id number].jpg Rec1_hd_video_3__ [id number]_55_20_305.jpg Rec1_hd_video_2022__ 2_54_56_747.jpg Rec1_hd_video_2022__ 2_54_33_422.jpg Rec1_hd_video_2022__ 2_54_26_538.jpg Rec1_hd_video_3__ [id number]_53_11_943.jpg . Post-Procedure Complications: none. Estimated blood loss: [...] need to refer to thoracic surgery. Normal [facility] Comment on above: Result Comment: Elec tronically Signed By: Larisa HINOJOSA, Wolf Arana\.br\Date and Time Signed: 02/10/23 14:00 EDT Other Comment: Lili ng Attachment - attachment storage system not supported [id number] Can be viewed in [facility] Attachment - attachment storage system not supported [id number] Can be viewed in source systemMissing Attachment - attachment storage system not supported [id number] Can be viewed in source systemMissing Attachment - attachment storage system not supported [id number] Can be viewed in [facility] Attachment - attachment storage system not supported [id number] Can be viewed in [facility] Attachment - attachment storage system not supported [id number] Can be viewed in [facility] Attachment - attachment storage system not supported [id number] Can be viewed in [facility] Attachment - attachment storage system not supported [id number] Can be viewed in [facility] Attachment - attachment storage system not supported [id number] Can be viewed in source systemMissing Attachment - attachment storage system not supported [id number] Can be viewed in source system Inpatient Patient Summaryon 02-10-2023 Inpatient Patient Summary [place] [id number] [facility] Clinical Discharge Instructions PERSON INFORMATION Name: PIEDAD ALATORRE [facility]#:[id number] PHYSICIANS Admitting Physician: Wolf Peres MD Attending Physician: Wolf Peres MD PCP: Deonte ROSARIO MD Discharge Diagnosis: Dysphagia Comment: PATIENT EDUCATION INFORMATION Instructions: Esophageal Dilatation; Upper Endoscopy, Adult, Care After Medication Leaflets: Follow up: With: Address: When: Wolf Peres [address] [place] [address], [address], [place] [phone] Business (1) Comments: Call for any problems. Type Location Start Finish State FM Open [facility] 03/04/2023 1:20 PM 03/04/2023 1:40 PM Confirmed FM Nurse Visit [facility] 04/11/2023 9:40 AM 04/11/2023 10:00 AM Confirmed Medicare Wellness Subsequent [facility] 08/01/2023 1:00 PM 08/01/2023 2:00 PM Confirmed [...] day. Refills: 5. ipratropium nasal (Atrovent 0.03% [place]) 2 Sprays Nasal Inhalation 3 times a [...] for 7 Days. Refills: 0. Comment: Laila [facility] Main OR PACU I Recordon Main OR PACU I Record PACU Phase I Document Type FT Summary Primary Physician: Wolf Peres MD Finalized Date/Time: 02/10/23 15:00:12 Pt. Name: PIEDAD ALATORRE Migel Beavers./Sex: 1935 Female Med Rec #: [id number] Physician: Wolf Peres MD Financial #: [id number] Pt. Type: O Room/Bed: Endo 11/09 Admit/Disch: 02/10/23 12:34:27 - Institution: Case [...] 02/10/23 15:00 Suellen Triplett RN 02/10/23 15:00 Normal [facility] Main OR Preoperative Recordo n 02-10-2023 Main OR Preoperative Record Holding Area Document Type FT Summary Primary Physician: Wolf Peres MD Finalized Date/Time: 02/10/23 12:52:27 Pt. Name: PIEDAD ALATORRE/Sex: 1935 Female Med Rec #: [id number] Physician: Wolf Prees MD Financial #: [id number] Pt. Type: O Room/Bed: Endo OP 11/09 [...] Patient states Yes Comment - Adult [facility] postop adult Supervision supervision available Case Cancelled in No Holding Area see comments below for reason Last Modified By: Shady Luque RN 02/10/23 12:52:26 Finalized By: Shady Luque RN Document Signatures Signed By: Shady Luque RN 02/10/23 12:52 Normal [facility] Monitor [place]ordon 02-10-2023 Monitor Record [id number]#1. 00CD:127 Normal [facility] Outpatient Surgery Discharge Instructionon 02-10-2023 Outpatient Surgery Discharge Instruction [place] [address] Patient Discharge Instructions PERSON INFORMATION Name: PIEDAD ALATORRE Date of : 1935 Current Date: 02/10/2023 14:24:10 PHYSICIANS Admitting Physician: Wolf Peres MD Discharge Diagnosis: Dysphagia SWATIPIEDAD BHATIA has been given the following list of [...] Follow up: With: Address: When: Wolf Peres [address] [place], [place] [address], [address], [address] [place] [phone] Business (1) Comments: Call for any problems. Type Location Start Finish State FM Open [facility] 03/04/2023 1:20 PM 03/04/2023 1:40 PM Confirmed FM Nurse Visit [facility] 04/11/2023 9:40 AM 04/11/2023 10:00 AM Confirmed FM Medicare Wellness Subsequent [facility] 08/01/2023 1:00 PM 08/01/2023 2:00 PM Confirmed Pharmacy Information: [facility] , Mail Order You may receive a survey from [employer] asking you to rate your care experience. Your feedback is important and will help us understand what we do well and how we can improve the quality of care we provide to you, your loved ones and our community. It?s an honor to serve you. Thank you for choosing [facility] HERE ARE THE MEDICATION CHANGES THAT [...] day. Refills: 5. ipratropium nasal (Atrovent 0.03% [place]) 2 Sprays Nasal Inhalation 3 times a [...] some c (more content not included)... Normal [facility] Patient Education - Texton 1 Patient [...] including vitamins, herbs, eye drops, creams, and yhwe-kqk-ydxvgfb medicines. ? Any problems you or family [...] tells you to take them. ? Taking qeob-htb-ephtgcs medicines, vitamins, herbs, and supplements. ? Follow [...] Follow these instructions at home: ? Take tcom-nww-tniihrj and prescription medicines only as told by [...] be spray (more content not included)... Normal [facility] Lab Reportson 02-08-2023 Lab Reports [id number] 0CD:127 Normal [facility] Ambulatory Visit Summaryon 0 02-07-2023 Ambulatory [...] enteric coated tablet) ipratropium nasal (Atrovent 0.03% [place]) isosorbide mononitrate (isosorbide mononitrate 30 mg ER [...] Friday 1:30 PM EDT With: Where: [facility] Friday 1:20 PM EDT With: Deonte ROSARIO MD Where: [facility] Normal [address] [place] [address]- \.br\ Medications\.br\ What How Much When Why Instructions\.br\ New valacyclovir (valacyclovir 1 g Tab) 1 Tablets By Mouth Every 8 hours Shingles rash Duration: 7 Days Pickup at [facility]\.br\ Unchanged acetaminophen 325 Milligram By Mouth [...] concerns \.br\ Unchanged ipratropium nasal (Atrovent 0.03% [place]) 2 Sprays Nasal Inhalation 3 times a [...] \.br\ Pharmacy Information\.br\ [facility]: [address] [place], [place] [phone]\.br\ Allergies\.br\ lisinopril (Angioedema)\.br\ Latex (Rash)\.br\ Skelaxin (SOB [...] Cardiac arrest\.br\ COPD\.br\ Glaucoma\.br\ H/O: TIA\.br\ HEMATURIA\.br\ [place] - myocardial infarction\.br\ STEMI - ST elevation myocardial infarction\.br\ Stroke\.br\ \.br\ [facility] Family Medicine Office/Clini c Noteon 02-07-2023 Family [...] Mouth: mucous membranes pink, moist and intact. [place] posterior oropharynx, no palatal inflammation, uvula midline, [...] Information Elvi Millan Only if needed [address] [facility], [place] [address]- Additional Instructions: Patient Education Neuropathic Pain Shingles Problem List/Past Medical History Ongoing Anemia Anxiety disorder Asthma BMI 25.0-25.9,adult CAD (coronary artery disease) Carotid osei (more content not included)... Normal [facility] Comment on above: Result Comment: Elec [...] a specialist, such as an eye doctor (master [place]) or an ear, nose, and throat (ENT) doctor (auto repair technician ) to help you avoid eye problems, chronic pain, or disability. Follow these instructions at home: Medicines ? Take hjzr-wsc-pevklnq and prescription medicines only as told by [...] your health care provider. This is an yket-jok-uozyjwl lotion that helps to relieve itchiness. Blister and rash care ? Keep your rash covered with a loose bandage (dressing). Wear loose-fitting clothing to help ease the pain of material rubbing against the rash. ? Wash your hands with soap and water for at least 20 seconds before and after you change your dressing. If soap and water are not available, use hand principal secretary. ? Change your dressing as told by [...] and water are not available, use hand principal secretary. Doing this lowers your chance of getting [...] Getting vaccinat (more content not included)... Normal [facility] Main OR Preoperative Recordo n 01-22-2023 Main OR Preoperative Record Holding Area Document Type FT Summary Primary Physician: Wolf Peres MD Finalized Date/Time: 01/22/23 11:03:23 Pt. Name: PIEDAD ALATORRE D.O.B./Sex: 1935 Female Med Rec #: [id number] Physician: Wolf Peres MD Financial #: [id number] Pt. Type: O Room/Bed: [facility] 10/10 Admit/Disch: 01/15/23 11:23:40 - 01/15/23 23:59:59 [...] Adult Magdaleno- transport from postop adult Supervision fdc supervision available Case Cancelled in Yes Case Cancelled didnt hold blood thinner Holding Area see Comment comments below for reason Last Modified By: Ana Maria Ashley RN 01/22/23 11:03:21 Finalized By: Ana Maria Ashley RN Document Signatures Signed By: Ana Maria Ashley RN 01/15/23 11:56 Ana Maria Ashley RN 01/22/23 11:03 Normal [facility] Consent for Procedure/Surger yon 01-20-2023 Consent for Procedure/Surgery [id number]. 00CD:127 Normal [facility] Consent for Treatmenton Consent for Treatment [id number] 0CD:127 Normal [facility] Progress Note-Physicianon Progress Note-Physician Patient: PIEDAD [...] = 1 tab(s), Oral, Bedtime Atrovent 0.03% [place] 2 spray(s), PRN, Nasal, TID carvedilol 25 [...] Problems HTN - Hypertension / SNOMED CT 0960203252 / Confirmed Hyperlipidemia / SNOMED CT 16241502 / Confirmed Anxiety disorder / SNOMED CT 034683197 / Confirmed Asthma / SNOMED CT 591825521 / Confirmed Female stress incontinence / SNOMED CT 175891104 / Confirmed Carotid artery stenosis / SNOMED CT 100866545 / Confirmed Lumbar radiculopathy / SNOMED CT 449977049 / Confirmed Intertrigo / SNOMED CT 31056749 / Confirmed Leg weakness / SNOMED CT 204151970 / Confirmed Edema / SNOMED CT 013493229 / Confirmed Hyperglycemia / SNOMED CT 915293302 / Confirmed Insomnia / SNOMED CT 669398571 / Confirmed Stage 3 chronic kidney disease / SNOMED CT 7171691593 / Confirmed Anemia / SNOMED CT 115476847 / Confirmed 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 Seborrheic keratoses / SNOMED CT 4597779408 / Confirmed Shoulder pain / SNOMED CT 90899931 / Confirmed 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 Neck pain / SNOMED CT 982164114 / Confirmed CAD (coronary artery disease) / SNOMED CT 15842333 / Confirmed Elevated alkaline phosphatase level / SNOMED CT 600497741 / Confirmed Dysphagia / SNOMED CT 42896831 / Confirmed History of CVA in adulthood / SNOMED CT 2495299908 / Confirmed Knee pain, right / SNOMED CT 6115949737 / Confirmed Skin lesion of face / SNOMED CT 0320191986 / Confirmed Resolved: blood clots Resolved: COPD / SNOMED CT 49925718 Resolved: Stroke / ICD-9-CM 436 Resolved: Appendectomy / ICD-9-CM 47.0 Resolved: H/O: TIA / SNOMED CT 263570313 Resolved: HEMATURIA / ICD-9-CM 599.7 Resolved: Acid reflux / SNOMED CT 0606931639 Resolved: Glaucoma / SNOMED CT 38798743 Resolved: [place] - myocardial infarction / SNOMED CT 0391744189 Resolved: STEMI - ST elevation myocardial infarction / SNOMED CT 7835777845 Resolved: Cardiac arrest / SNOMED CT 2667423306 Canceled: H/O: anemia / SNOMED CT 3147756165 Canceled: Renal insufficiency syndrome NOS / ICD-9-CM 586 Canceled: Lymphoma / SNOMED CT 82210697 Canceled: TIA (transient ischemic attack) / SNOMED CT 868321944 Canceled: CVA (cerebral vascular accident) / SNOMED CT 722271541 Canceled: Osteoarthrosis / SNOMED CT 0242574540 Canceled: Alkaline phosphatase elevation / SNOMED CT 759966324 Canceled: Loose stools / SNOMED CT 2421156992 Canceled: COPD type B / SNOMED CT 000409765 Canceled: Acute UTI / SNOMED CT 7851407998 Canceled: History of CVA in adulthood / SNOMED CT 5672974333 Canceled: Overweight with body mass index (BMI) of 26 to 26.9 in adult / SNOMED CT 4240320671 Canceled: Non-smoker / SNOMED CT 69023393 Canceled: Patient had no falls in past year / SNOMED CT 0140725186 Canceled: Leg pain / SNOMED C (more content not included)... Normal [facility] Comment on above: Result Comment: Elec tronically Signed By: Gerard HINOJOSA, Artem Roque.michael\Date and Time Signed: 01/15/23 12:04 EDT Consent for Procedure/Surger yon 12-18-2022 Consent for Procedure/Surgery [id number]#1.0 0CD:127 Normal [facility] Ambulatory Visit Summaryon 0 12-10-2022 Ambulatory [...] enteric coated tablet) ipratropium nasal (Atrovent 0.03% [place]) isosorbide mononitrate (isosorbide mononitrate 30 mg ER [...] EDT With: PAULO HINOJOSA, Deonte Turpin Where: [facility] Normal [address] [place] [address]- \.br\ Medications\.br\ What How Much When Why [...] day Anemia\.br\ Unchanged ipratropium nasal (Atrovent 0.03% [place]) 2 Sprays Nasal Inhalation 3 times a [...] Cardiac arrest\.br\ COPD\.br\ Glaucoma\.br\ H/O: TIA\.br\ HEMATURIA\.br\ [place] - myocardial infarction\.br\ STEMI - ST elevation myocardial infarction\.br\ Stroke\.br\ \.br\ [facility] Gastroenterology Office/Clin ic Noteon 12-10-2022 Gastroenterology Office/Clinic Note Chief Complaint dysphagia and GERD HPI Staff Patient is a(n) 87 year old female who presents today for a(n) 10 month follow up for dysphagia & GERD. Takes Pantoprazole daily. Currently resides at [facility] - requests medication requests be sent [...] Cardiac arrest COPD Glaucoma H/O: TIA HEMATURIA [place] - myocardial infarction STEMI - ST elevation [...] Stents, bilateral (more content not included)... Normal [facility] Comment on above: Result Comment: Elec tronically Signed By: Larisa HINOJOSA, Wolf Arana\.michael\Date and Time Signed: 12/10/22 10:36 EDT Correction Recordson 11-26 Correction Records [id number] 0CD:[address] [facility] Family Medicine Office/Clini c Noteon 11-22-2022 Family Medicine Office/Clinic Note Chief Complaint Patient here for 3 month f/u on htn, chol, thyroid--had labs done in September at [facility]. History of Present Illness Here for med [...] artery disease) (I25.10: Atherosclerotic heart disease of [place] coronary artery without angina pectoris) stable keep [...] unspecified) will refer back to GI Ordered: [facility] Internal Ambulatory Referral Follow-up With When Contact Information PAULO HINOJOSA, ROCKY Diaz In 3 months [facility] [address], [place] [address]- Additional Instructions: Patient Education Hypertension, Adult, Ofpu-qm-Wyub Problem List/Past Medical History Ongoing Anemia Anxiety [...] Cardiac arrest COPD Glaucoma H/O: TIA HEMATURIA [place] - myocardial infarction STEMI - ST elevation [...] artery, Appen (more content not included)... Normal [facility] Comment on above: Result Comment: Elec tronically Signed By: PAULO HINOJOSA, Deonte Turpin\.michael\Date and Time Signed: 11/22/22 14:14 EDT Lab Reportson 11-22-2022 Lab Reports [id number]#1.0 0CD:127 Normal [facility] Patient Educationon 11-23-19 Patient Education Cardiovascular [...] Keep all follow-up visits. Medicines ? Take vczz-sle-hakgtdx and prescription medicines only as told by [...] For m (more content not included)... Normal [facility] Home Recordson 10-23 Correction Records [id number]#1.0 0CD:127 Normal [facility] PT - Progress Noteson 2022 PT - Progress Notes [id number]#1.0 0CD:127 Normal [facility] Physician Orderon 09-26-2022 Physician Order [id number]#1.0 0CD:127 Normal [facility] CBC AUTO DIFFon 09-20-2022 BASO # 0.1 103/ul Normal 0.0-0.1 [facility] Comment on above: Performed By: #### C BC #### [facility] [address] [place] [address] Dr. Carla Little Basophils/100 WBC (Bld) 0.9 % Normal 0.2-2.0 [facility] Comment on above: Performed By: #### C BC #### [facility] [address] [place] [address] Dr. Carla Little EO # 0.4 103/ul Normal 0.0-0.7 [facility] Comment on above: Performed By: #### C BC #### [facility] [address] [place] [address] Dr. Carla Little Eosinophils/100 WBC (Bld) 5.0 % Normal 0.9-7.0 [facility] Comment on above: Performed By: #### C BC #### [facility] [address] [place] [address] Dr. Carla Little Erythrocyte distribution width (RBC) [Ratio] 14.1 % Normal 11.0-15.0 [facility] Comment on above: Performed By: #### C BC #### [facility] [address] [place] [address] Dr. Carla Little Hematocrit (Bld) [Volume fraction] 34.5 % Critically low 36.0-48.0 [facility] Comment on above: Performed By: #### C BC #### [facility] [address] [place] [address] Dr. Carla Little Hemoglobin (Bld) [Mass/Vol] 10.6 g/dL Critically low 12.0-16.0 [facility] Comment on above: Performed By: #### C BC #### [facility] [address] [place] [address] Dr. Carla Little IG # 0.03 10e3/ul Normal 0.00-0.03 [facility] Comment on above: Performed By: #### C BC #### [facility] [address] [place] [address] Dr. Carla Little IG % 0.4 % Normal 0.0-0.5 [facility] Comment on above: Performed By: #### C BC #### [facility] [address] [place] [address] Dr. Carla Little LYMPH # 1.5 103/ul Normal 1.2-3.8 [facility] Comment on above: Performed By: #### C BC #### [facility] [address] [place] [address] Dr. Carla Little Lymphocytes/100 WBC (Bld) 20.9 % Normal 20.5-60.0 [facility] Comment on above: Performed By: #### C BC #### [facility] [address] [place] [address] Dr. Carla Little MANUAL DIFF REQ NO Normal [facility] Comment on above: Performed By: #### C BC #### [facility] [address] [place] [address] Dr. Carla Little MCH (RBC) [Entitic mass] 28.7 pg Normal 26.7-34.0 [facility] Comment on above: Performed By: #### C BC #### [facility] [address] [place] [address] Dr. Carla Little MCHC (RBC) [Mass/Vol] 30.7 g/dL Normal 29.9-35.2 [facility] Comment on above: Performed By: #### C BC #### [facility] [address] [place] [address] Dr. Carla Little MCV (RBC) [Entitic vol] 93.5 fL Normal 81.0-99.0 [facility] Comment on above: Performed By: #### C BC #### [facility] [address] [place] [address] Dr. Carla Little MONO # 0.6 103/ul Normal 0.3-0.8 [facility] Comment on above: Performed By: #### C BC #### [facility] [address] [address] [address] Carla Little Monocytes/100 WBC (Bld) 9.1 % Normal 1.7-12.0 [facility] Comment on above: Performed By: #### C BC #### [facility] [address] [place] [address] Dr. Carla Little NEUT # 4.5 103/ul Normal 1.4-6.5 [facility] Comment on above: Performed By: #### C BC #### [facility] [address] [place] [address] Dr. Carla Little Neutrophils/100 WBC (Bld) 63.7 % Normal 43.0-75.0 [facility] Comment on above: Performed By: #### C BC #### [facility] [address] [place] [address] Dr. Carla Little Platelet mean volume (Bld) [Entitic vol] 9.8 fL Normal 9.5-13.5 [facility] Comment on above: Performed By: #### C BC #### [facility] [address] [place] [address] Dr. Carla Little PLT 222 103/ul Normal 150-450 [facility] Comment on above: Performed By: #### C BC #### [facility] [address] [place] [address] Dr. Carla Little RBC 3.69 106/ul Critically low 4.20-5.40 [facility] Comment on above: Performed By: #### C BC #### [facility] [address] [place] [address] Dr. Carla Little WBC 7.0 103/ul Normal 4.0-11.0 [facility] Comment on above: Performed By: #### C BC #### [facility] [address] [address] [address] Carla Little LIPID PROFILEon 09-20-2022 CHOL-HDL RATIO NORM SEE BELOW Normal [facility] Comment on above: Result Comment: 3.3 - 4.4 LOW RISK 4.4 - 7.1 AVERAGE RISK 7.1 - 11.0 MODERATE RISK >11.0 HIGH RISK Performed By: #### L IPID, CMP #### [facility] [address] [address] [address] Carla Little Cholesterol [Mass/Vol] 124 mg/dL Normal <=200 [facility] Comment on above: Performed By: #### L IPID, CMP #### [facility] [address] [address] [address] Carla Little Cholesterol in HDL [Mass/Vol] 47 mg/dL Normal 40-60 [facility] Comment on above: Performed By: #### L IPID, CMP #### [facility] [address] [address] [address] Carla Little Cholesterol in LDL [Mass/Vol] 61.0 mg/dL Normal [facility] Comment on above: Performed By: #### L IPID, CMP #### [facility] [address] [address] [address] Carla Little Cholesterol.total/ Cholesterol in HDL [Mass ratio] 2.6 {ratio} Normal [facility] Comment on above: Performed By: #### L IPID, CMP #### [facility] [address] [address] [address] Carla Little HDL NORMAL > or = 60 mg/dl - LO W CARDIOVASCULAR RISK <40 mg/dl - HIGH CARDIOVASCULAR RISK Normal [facility] Comment on above: Performed By: #### L IPID, CMP #### [facility] [address] [address] [address] Carla Little LDL CALC NORMAL SEE BELOW Normal [facility] Comment on above: Result Comment: <100 mg/dl OPTIMAL 100 - 129 mg/dl NEAR OR ABOVE OPTIMAL 130 - 159 mg/dl BORDERLINE HIGH 160 - 189 mg/dl HIGH >190 mg/dl VERY HIGH Performed By: #### L IPID, CMP #### [facility] [address] [address] [address] Carla Little Triglyceride [Mass/Vol] 80 mg/dL Normal <=150 [facility] Comment on above: Performed By: #### L IPID, CMP #### [facility] [address] [address] [address] Carla Little VLDL CALC 16.0 mg/dL Normal [facility] Comment on above: Performed By: #### L IPID, CMP #### [facility] [address] [address] [address] Carla Little PROF 14(COMP METB)on 023 Albumin [Mass/Vol] 3.4 g/dL Normal 3.4-5.0 [facility] Comment on above: Performed By: #### L IPID, CMP #### [facility] [address] [place] [address] Dr. Carla Little Albumin/Globulin [Mass ratio] 1.2 {ratio} Normal [facility] Comment on above: Performed By: #### L IPID, CMP #### [facility] [address] [place] [address] Dr. Carla Little ALP [Catalytic activity/Vol] 137 U/L Critically high 46-116 [facility] Comment on above: Performed By: #### L IPID, CMP #### [facility] [address] [place] [address] Dr. Carla Little ALT [Catalytic activity/Vol] 20 U/L Normal 14-59 [facility] Comment on above: Performed By: #### L IPID, CMP #### [facility] [address] [address] [address] Carla Little Anion gap [Moles/Vol] 14.2 mmol/L Normal [facility] Comment on above: Performed By: #### L IPID, CMP #### [facility] [address] [place] [address] Dr. Carla Little AST [Catalytic activity/Vol] 14 U/L Critically low 15-37 [facility] Comment on above: Performed By: #### L IPID, CMP #### [facility] [address] [address] [address] Carla Little Bilirubin [Mass/Vol] 0.3 mg/dL Normal 0.2-1.0 [facility] Comment on above: Performed By: #### L IPID, CMP #### [facility] [address] [place] [address] Dr. Carla Little Calcium [Mass/Vol] 8.8 mg/dL Normal 8.5-10.1 [facility] Comment on above: Performed By: #### L IPID, CMP #### [facility] [address] [place] [address] Dr. Carla Little Chloride [Moles/Vol] 108 mmol/L Critically high 98-107 [facility] Comment on above: Performed By: #### L IPID, CMP #### [facility] [address] [place] [address] Dr. Carla Little CO2 [Moles/Vol] 27.1 mmol/L Normal 21.0-32.0 [facility] Comment on above: Performed By: #### L IPID, CMP #### [facility] [address] [place] [address] Dr. Carla Little Creatinine [Mass/Vol] 1.57 mg/dL Critically high 0.55-1.02 [facility] Comment on above: Performed By: #### L IPID, CMP #### [facility] [address] [place] [address] Dr. Carla Little EGFR-AF [place] 38 mL/min/1.73m2 Critically low >=60 [facility] Comment on above: Performed By: #### L IPID, CMP #### [facility] [address] [place] [address] Dr. Carla Little EGFR-NON AF [place] 31 mL/min/1.73m2 Critically low >=60 [facility] Comment on above: Performed By: #### L IPID, CMP #### [facility] [address] [place] [address] Dr. Carla Little Globulin (S) [Mass/Vol] 2.8 g/dL Normal [facility] Comment on above: Performed By: #### L IPID, CMP #### [facility] [address] [place] [address] Dr. Carla Little Glucose [Mass/Vol] 108 mg/dL Critically high 74-106 [facility] Comment on above: Performed By: #### L IPID, CMP #### [facility] [address] [place] [address] Dr. Carla Little Potassium [Moles/Vol] 4.3 mmol/L Normal 3.5-5.1 [facility] Comment on above: Performed By: #### L IPID, CMP #### [facility] [address] [place] [address] Dr. Carla Little Protein [Mass/Vol] 6.2 g/dL Critically low 6.4-8.2 [facility] Comment on above: Performed By: #### L IPID, CMP #### [facility] [address] [place] [address] Dr. Carla Little Sodium [Moles/Vol] 145 mmol/L Normal 136-145 [facility] Comment on above: Performed By: #### L IPID, CMP #### [facility] [address] [place] [address] Dr. Carla Little Urea nitrogen [Mass/Vol] 27.0 mg/dL Critically high 7.0-18.0 [facility] Comment on above: Performed By: #### L IPID, CMP #### [facility] [address] [place] [address] Dr. Carla Little Urea nitrogen/Creatinin e [Mass ratio] 17.2 mg/mg Normal [facility] Comment on above: Performed By: #### L IPID, CMP #### [facility] [address] [place] [address] Dr. Carla Little Correction Recordson 09-17 Correction Records [id number]#1.0 0CD:127 Normal [facility] Correction Recordson 09-16 Correction Records [id number] 0CD:127 Normal [facility] Retail - Clinical Noteon Retail - Clinical Note [id number] 0CD:127 Normal [facility] PT - Progress Noteson 2022 PT - Progress Notes [id number] 0CD:127 Normal [facility] FRESH FROZ PLASMAon 07-17-19 23 ABO and Rh group Nom (Bld) Unit Blood Type O Pos Unit Number [id number] Status Information Transfused Product ID FFP Product Code [id number] Unit Blood Type O Pos Unit Number [id number] Status Information Transfused Product ID FFP Product Code [id number] Normal [facility] Comment on above: Performed By: #### F FP #### [facility] [address] [place] [address] Dr. Carla Little Basic Metab w/rfx MGon 06-20 Anion gap [Moles/Vol] 10 mmol/L Normal 9-17 [facility] Comment on above: Performed By: #### M RSANO #### [facility] [address] [place] [address] [id number] [employer] Repairer: Sidney Epps MD Chloride [Moles/Vol] 105 mmol/L Normal 98-107 [facility] Comment on above: Performed By: #### M RSANO #### [facility] [address] [place], [place] [phone] [employer] Repairer: Sidney Epps MD CO2 [Moles/Vol] 23 mmol/L Normal 20- [facility] Comment on above: Performed By: #### M RSANO #### [facility] [address] [place] [address] [phone] [employer] Repairer: Sidney Epps MD Creatinine [Mass/Vol] 1.38 mg/dL High 0.50-0.90 [facility] Comment on above: Performed By: #### M RSANO #### [address] [address] [employer] Repairer: Sidney Epps MD GFR/1.73 sq M.predicted among non-blacks MDRD (S/P/Bld) [Vol rate/Area] 38 mL/min/{1.73_m2} Low >60 [facility] Comment on above: Result Comment: These [...] secretion. Performed By: #### M RSANO #### [address] [address] [employer] Repairer: Sidney Epps MD Glucose [Mass/Vol] 96 mg/dL Normal 70-99 [facility] Comment on above: Performed By: #### M RSANO #### [facility] [address] [place] [address] [employer] Repairer: Sidney Epps MD Potassium [Moles/Vol] 4.6 mmol/L Normal 3.7-5.3 [facility] Comment on above: Performed By: #### M RSANO #### [facility] [address] [place] [address] [employer] Repairer: Sidney Epps MD Sodium [Moles/Vol] 138 mmol/L Normal 135-144 [facility] Comment on above: Performed By: #### M RSANO #### [facility] [address] [place] [address] [employer] Repairer: Sidney Epps MD Urea nitrogen [Mass/Vol] 33 mg/dL High 8-23 [facility] Comment on above: Performed By: #### M RSANO #### [facility] [address] [place], [place] [phone] [employer] Generator Repairer: Sindey Epps MD Calcium [Mass/Vol] 8.8 mg/dL Normal 8.6-10.4 [facility] on above: Performed By: #### M RSANO #### [facility] [address] [place], [place] [phone] [employer] Generator Repairer: Sidney Epps MD Basic Metabolic Panel w/ Ref rashid to MGon 06-20-2022 Anion gap [Moles/Vol] 10 mmol/L 9 - 17 mmol/L [facility] [employer] Chloride [Moles/Vol] 105 mmol/L 98 - 107 mmol/L [facility] [employer] CO2 [Moles/Vol] 23 mmol/L 20 - 31 mmol/L [facility] shoutr Creatinine [Mass/Vol] 1.38 mg/dL High 0.50 - 0.90 mg/dL [facility] [employer] GFR/1.73 sq M.predicted MDRD (S/P/Bld) [Vol rate/Area] 38 mL/min/{1.73_m2} Low - PINF [facility] [employer] Comment on above: These results are not [...] [Mass/Vol] 96 mg/dL 70 - 99 mg/dL [facility] Interpretation and review of laboratory results Abnormal [facility] [employer] Potassium [Moles/Vol] 4.6 mmol/L 3.7 - 5.3 mmol/L [facility] [employer] Sodium [Moles/Vol] 138 mmol/L 135 - 144 mmol/L [facility] [employer] Urea nitrogen [Mass/Vol] 33 mg/dL High 8 - 23 mg/dL [facility] CBC with Auto Differentialon 06-20-2022 Absolute Eos # [facility] Absolute Immature Granulocyte 0.24 [facility] Absolute Lymph # 0.71 Low [facility] Absolute [place] # 1.15 [facility] Basophils Absolute [facility] Basophils/100 WBC (Bld) 0 % 0 - 2 % [facility] Eosinophils/100 WBC (Bld) 0 % Low 1 - 4 % [facility] Hematocrit (Bld) [Volume fraction] 32.7 % Low 36.3 - 47.1 % [facility] Hemoglobin (Bld) [Mass/Vol] 10.8 g/dL Low 11.9 - 15.1 g/dL [facility] Immature granulocytes/100 WBC (Bld) 2 % High 0 [facility] Interpretation and review of laboratory results Abnormal [facility] Lymphocytes/100 WBC (Bld) 5 % Low 24 - 43 % [facility] MCH (RBC) [Entitic mass] 30.0 pg 25.2 - 33.5 pg [facility] MCHC (RBC) [Mass/Vol] 33.0 g/dL 28.4 - 34.8 g/dL [facility] MCV (RBC) [Entitic vol] 90.8 fL 82.6 - 102.9 fL [facility] Monocytes/100 WBC (Bld) 7 % 3 - 12 % [facility] NRBC Automated 0.0 0.0 per 100 WBC [facility] Platelet distribution width (Bld) [Ratio] 14.4 % 11.8 - 14.4 % [facility] Platelet mean volume (Bld) [Entitic vol] 10.3 fL 8.1 - 13.5 fL [facility] Platelets (Bld) [#/Vol] 218 10*3/uL [facility] RBC (Bld) [#/Vol] 3.60 10*6/uL Low 3.95 - 5.11 m/uL [facility] Segmented neutrophils/100 WBC (Bld) 87 % High 36 - 65 % [facility] Segs Absolute 13.71 High [facility] WBC (Bld) [#/Vol] 15.8 10*3/uL High [facility] CBC with Diffon 06-20-2022 Abs. Basophil <0.03 Normal 0.00-0.20 [facility] Comment on above: Performed By: #### M RSANO #### [address] [address] [employer] Generator Repairer: Sidney Epps MD Abs. Eosinophil <0.03 Normal 0.00-0.44 [facility] Comment on above: Performed By: #### M RSANO #### [facility] [address] [place] [address] [employer] Repairer: Sidney Epps MD Abs.Imm.Granulocyt e 0.24 k/uL Normal 0.00-0.30 [facility] Comment on above: Performed By: #### M RSANO #### [address] [address] [employer] Generator Repairer: Sidney Epps MD Abs.Neutrophil (Seg) 13.71 k/uL High 1.50-8.10 [facility] Comment on above: Performed By: #### M RSANO #### [address] [address] [employer] Gener[employer] Repairer: Sidney Epps MD Basophils/100 WBC (Bld) 0 % Normal 0-2 [facility] Comment on above: Performed By: #### M RSANO #### [facility] [address] [place] [address] [employer] Repairer: Sidney Epps MD Eosinophils/100 WBC (Bld) 0 % Low 1-4 [facility] Comment on above: Performed By: #### M RSANO #### [address] [address] [employer] Gener[employer] Repairer: Sidney Epps MD Erythrocyte distribution width (RBC) [Ratio] 14.4 % Normal 11.8-14.4 [facility] Comment on above: Performed By: #### M RSANO #### [address] [address] [employer] Gener[employer] Repairer: Sidney Epps MD Hematocrit (Bld) [Volume fraction] 32.7 % Low 36.3-47.1 [facility] Comment on above: Performed By: #### M RSANO #### [address] [address] [employer] Repairer: Sidney Epps MD Hemoglobin (Bld) [Mass/Vol] 10.8 g/dL Low 11.9-15.1 [facility] Comment on above: Performed By: #### M RSANO #### [address] [address] [employer] Repairer: Sidney Epps MD Immature granulocytes/100 WBC (Bld) 2 % High 0 [facility] Comment on above: Performed By: #### M RSANO #### [address] [address] [employer] Gener[employer] Repairer: Sidney Epps MD Lymphocytes (Bld) [#/Vol] 0.71 10*3/uL Low 1.10-3.70 [facility] Comment on above: Performed By: #### M RSANO #### [address] [address] [employer] Gener[employer] Repairer: Sidney Epps MD Lymphocytes/100 WBC (Bld) 5 % Low 24-43 [facility] Comment on above: Performed By: #### M RSANO #### [address] [address] [employer] Generator Repairer: Sidney Epps MD MCH (RBC) [Entitic mass] 30.0 pg Normal 25.2-33.5 [facility] Comment on above: Performed By: #### M RSANO #### [address] [address] [employer] Gener[employer] Repairer: Sidney Epps MD MCHC (RBC) [Mass/Vol] 33.0 g/dL Normal 28.4-34.8 [facility] Comment on above: Performed By: #### M RSANO #### [address] [address] [employer] Gener[employer] Repairer: Sidney Epps MD MCV (RBC) [Entitic vol] 90.8 fL Normal 82.6-102.9 [facility] Comment on above: Performed By: #### M RSANO #### [address] [address] [employer] Generator Repairer: Sidney Epps MD Monocytes (Bld) [#/Vol] 1.15 10*3/uL Normal 0.10-1.20 [facility] Comment on above: Performed By: #### M RSANO #### [address] [address] [employer] Gener[employer] Repairer: Sidney Epps MD Monocytes/100 WBC (Bld) 7 % Normal 3-12 [facility] Comment on above: Performed By: #### M RSANO #### [address] [address] [employer] Gener[employer] Repairer: Sidney Epps MD Neutrophil (Seg) 87 % High 36-65 [facility] Comment on above: Performed By: #### M RSANO #### [address] [address] [employer] Generator Repairer: Sidney Epps MD NRBC Automated 0.0 per 100 WBC Normal 0.0 [facility] Comment on above: Performed By: #### M RSANO #### [address] [address] [employer] Gener[employer] Repairer: Sidney Epps MD Platelet mean volume (Bld) [Entitic vol] 10.3 fL Normal 8.1-13.5 [facility] Comment on above: Performed By: #### M RSANO #### [facility] [place] [address] [employer] Generator Repairer: Sidney Epps MD Platelets (Bld) [#/Vol] 218 10*3/uL Normal 138-453 [facility] Comment on above: Performed By: #### M RSANO #### [facility] [address] [place] [address] [employer] Generator Repairer: Sidney Epps MD RBC (Bld) [#/Vol] 3.60 10*6/uL Low 3.95-5.11 [facility] Comment on above: Performed By: #### M RSANO #### [address] [address] [employer] Generator Repairer: Sidney Epps MD WBC (Bld) [#/Vol] 15.8 10*3/uL High 3.5-11.3 [facility] Comment on above: Performed By: #### M RSANO #### [address] [address] [employer] Generator Repairer: Sidney Epps MD Basic Metab w/rfx MGon 06-19 Anion gap [Moles/Vol] 14 mmol/L Normal 9-17 [facility] Comment on above: Performed By: #### C HARI BMPX ####[facility] [address] [place], [place] [phone] Director: Sidney Epps MD Calcium [Mass/Vol] 9.4 mg/dL Normal 8.6-10.4 [facility] Comment on above: Performed By: #### C DP BMPX ####[facility] [address] [place], [place] [phone] Director: Sidney Epps MD Chloride [Moles/Vol] 104 mmol/L Normal 98-107 [facility] Comment on above: Performed By: #### C DP, BMPX ####[facility] [address] [place], [place] [phone] Director: Sidney Epps MD CO2 [Moles/Vol] 18 mmol/L Low 20-31 [facility] Comment on above: Performed By: #### C DP, BMPX ####[facility] [address] [place] [address] [phone] Director: Sidney Epps MD Creatinine [Mass/Vol] 1.41 mg/dL High 0.50-0.90 [facility] Comment on above: Performed By: #### C DP, BMPX ####[address] [address])[phone] Director: Sidney Epps MD GFR/1.73 sq M.predicted among non-blacks MDRD (S/P/Bld) [Vol rate/Area] 37 mL/min/{1.73_m2} Low >60 [facility] Comment on above: Result Comment: These [...] secretion. Performed By: #### C DP, BMPX ####[facility] [address] [place], [place] [phone] Director: Sidney Epps MD Glucose [Mass/Vol] 122 mg/dL High 70-99 [facility] Comment on above: Performed By: #### C DP, BMPX ####[facility] [address] [place], [place] [phone] Director: Sidney Epps MD Potassium [Moles/Vol] 4.6 mmol/L Normal 3.7-5.3 [facility] Comment on above: Performed By: #### C DP, BMPX ####[facility] [address] [place] [address] Lab Director: Sidney Epps MD Sodium [Moles/Vol] 136 mmol/L Normal 135-144 [facility] Comment on above: Performed By: #### C DP, BMPX ####[facility] [address] [place] [address] lab Director: Sidney Epps MD Urea nitrogen [Mass/Vol] 32 mg/dL High 8-23 [facility] Comment on above: Performed By: #### C DP, BMPX ####[facility] [address] [place] [address] lab Director: Sidney Epps MD Basic Metabolic Panel w/ Ref rashid to [facility] 06-19-2022 Anion gap [Moles/Vol] 14 mmol/L 9 - 17 mmol/L [facility] Calcium [Mass/Vol] 9.4 mg/dL 8.6 - 10.4 mg/dL [facility] [employer] Chloride [Moles/Vol] 104 mmol/L 98 - 107 mmol/L [facility] [employer] CO2 [Moles/Vol] 18 mmol/L Low 20 - 31 mmol/L [facility] [employer] Creatinine [Mass/Vol] 1.41 mg/dL High 0.50 - 0.90 mg/dL [facility] GFR/1.73 sq M.predicted MDRD (S/P/Bld) [Vol rate/Area] 37 mL/min/{1.73_m2} Low - PINF [facility] Comment on above: These results are not [...] 122 mg/dL High 70 - 99 mg/dL [facility] Interpretation and review of laboratory results Abnormal [facility] Potassium [Moles/Vol] 4.6 mmol/L 3.7 - 5.3 mmol/L [facility] Sodium [Moles/Vol] 136 mmol/L 135 - 144 mmol/L [facility] Urea nitrogen [Mass/Vol] 32 mg/dL High 8 - 23 mg/dL [facility] CBC with Auto Differentialon 06-19-2022 Absolute Eos # 0.00 [facility] Absolute Immature Granulocyte 0.43 High [facility] Absolute Lymph # 0.65 Low [facility] Absolute [place] # 0.86 [facility] Basophils (Bld) [#/Vol] 0.00 10*3/uL [facility] Basophils/100 WBC (Bld) 0 % 0 - 2 % [facility] Eosinophils/100 WBC (Bld) 0 % Low 1 - 4 % [facility] Hematocrit (Bld) [Volume fraction] 31.7 % Low 36.3 - 47.1 % [facility] Hemoglobin (Bld) [Mass/Vol] 9.5 g/dL Low 11.9 - 15.1 g/dL [facility] Immature granulocytes/100 WBC (Bld) 2 % High 0 [facility] Interpretation and review of laboratory results Abnormal [facility] Lymphocytes/100 WBC (Bld) 3 % Low 24 - 43 % [facility] MCH (RBC) [Entitic mass] 29.9 pg 25.2 - 33.5 pg [facility] MCHC (RBC) [Mass/Vol] 30.0 g/dL 28.4 - 34.8 g/dL [facility] MCV (RBC) [Entitic vol] 99.7 fL 82.6 - 102.9 fL [facility] Monocytes/100 WBC (Bld) 4 % 3 - 12 % [facility] Morphology Min (Bld) [Interp] ANISOCYTOSIS PRESENT [facility] NRBC Automated 0.0 0.0 per 100 WBC [facility] Platelet distribution width (Bld) [Ratio] 14.6 % High 11.8 - 14.4 % [facility] Platelet mean volume (Bld) [Entitic vol] 10.6 fL 8.1 - 13.5 fL [facility] Platelets (Bld) [#/Vol] 232 10*3/uL [facility] RBC (Bld) [#/Vol] 3.18 10*6/uL Low 3.95 - 5.11 m/uL [facility] Segmented neutrophils/100 WBC (Bld) 91 % High 36 - 65 % [facility] Segs Absolute 19.56 High [facility] WBC (Bld) [#/Vol] 21.5 10*3/uL High [facility] CBC with Diffon 06-19-2022 Abs. Basophil 0.00 k/uL Normal 0.00-0.20 [facility] Comment on above: Performed By: #### C DP, BMPX ####[facility] [address] [place] [address] Lab Director: Sidney Epps MD Abs.Imm.Granulocyt e 0.43 k/uL High 0.00-0.30 [facility] Comment on above: Performed By: #### C DP, BMPX ####[facility] [address] [place] [address] Lab Director: Sidney Epps MD Abs.Neutrophil (Seg) 19.56 k/uL High 1.50-8.10 [facility] Comment on above: Performed By: #### C DP, BMPX ####[facility] [address] [place] [address] Lab Director: Sidney Epps MD Basophils/100 WBC (Bld) 0 % Normal 0-2 [facility] Comment on above: Performed By: #### C DP, BMPX ####[facility] [address] [place] [address] Lab Director: Sidney Epps MD Eosinophils (Bld) [#/Vol] 0.00 10*3/uL Normal 0.00-0.44 [facility] Comment on above: Performed By: #### C DP, BMPX ####[address] [address])[phone] Director: Sidney Epps MD Eosinophils/100 WBC (Bld) 0 % Low 1-4 [facility] Comment on above: Performed By: #### C DP, BMPX ####[place], [place] [address])[phone] Director: Sidney Epps MD Immature granulocytes/100 WBC (Bld) 2 % High 0 [facility] Comment on above: Performed By: #### C DP, BMPX ####[place], [place] [address])[phone] Director: Sidney Epps MD Lymphocytes (Bld) [#/Vol] 0.65 10*3/uL Low 1.10-3.70 [facility] Comment on above: Performed By: #### C DP, BMPX ####[address] [address])[phone] Director: Sidney Epps MD Lymphocytes/100 WBC (Bld) 3 % Low 24-43 [facility] Comment on above: Performed By: #### C DP, BMPX ####[place], [place] [address])[phone] Director: Sidney Epps MD Monocytes (Bld) [#/Vol] 0.86 10*3/uL Normal 0.10-1.20 [facility] Comment on above: Performed By: #### C DP, BMPX ####[address] [address])[phone] Director: Sidney Epps MD Monocytes/100 WBC (Bld) 4 % Normal 3-12 [facility] Comment on above: Performed By: #### C DP, BMPX ####[facility] [address] [place], [place] [phone] Director: Sidney Epps MD Morphology Min (Bld) [Interp] ANISOCYTOSIS PRESENT Normal [facility] Comment on above: Performed By: #### C DP, BMPX ####[facility] [address] [place] [address] [phone] Director: Sidney Epps MD Neutrophil (Seg) 91 % High 36-65 [facility] Comment on above: Performed By: #### C DP, BMPX ####[facility] [address] [place], [place] [phone] Director: Sidney Epps MD Erythrocyte distribution width (RBC) [Ratio] 14.6 % High 11.8-14.4 [facility] Comment on above: Performed By: #### C DP, BMPX ####[facility] [address] [place] [address] [phone] Director: Sidney Epps MD Hematocrit (Bld) [Volume fraction] 31.7 % Low 36.3-47.1 [facility] Comment on above: Performed By: #### C DP, BMPX ####[facility] [address] [place], [place] [phone] Director: Sidney Epps MD Hemoglobin (Bld) [Mass/Vol] 9.5 g/dL Low 11.9-15.1 [facility] Comment on above: Performed By: #### C DP, BMPX ####[facility] [address] [place], [place] [phone] Director: Sidney Epps MD MCH (RBC) [Entitic mass] 29.9 pg Normal 25.2-33.5 [facility] Comment on above: Performed By: #### C DP, BMPX ####[facility] [address] [place], [place] [phone] Director: Sidney Epps MD MCHC (RBC) [Mass/Vol] 30.0 g/dL Normal 28.4-34.8 [facility] Comment on above: Performed By: #### C DP, BMPX ####[address] [phone] Director: Sidney Epps MD MCV (RBC) [Entitic vol] 99.7 fL Normal 82.6-102.9 [facility] Comment on above: Performed By: #### C DP, BMPX ####[address] [phone] Director: Sidney Epps MD NRBC Automated 0.0 per 100 WBC Normal 0.0 [facility] Comment on above: Performed By: #### C DP, BMPX ####[address] [phone] Director: Sidney Epps MD Platelet mean volume (Bld) [Entitic vol] 10.6 fL Normal 8.1-13.5 [facility] Comment on above: Performed By: #### C DP, BMPX ####[address] [phone] Director: Sidney Epps MD Platelets (Bld) [#/Vol] 232 10*3/uL Normal 138-453 [facility] Comment on above: Performed By: #### C DP, BMPX ####[address] [phone] Director: Sidney Epps MD RBC (Bld) [#/Vol] 3.18 10*6/uL Low 3.95-5.11 [facility] Comment on above: Performed By: #### C DP, BMPX ####[address] [address] lab Director: Sidney Epps MD WBC (Bld) [#/Vol] 21.5 10*3/uL High 3.5-11.3 [facility] Comment on above: Performed By: #### C DP, BMPX ####[facility] [place] [address] lab Director: Sidney Epps MD CT CHEST WO [...] known risk factors. Radiology 2017 http://pubs.rsna.org/d oi/full/10.1148/radiol .[id number] Interpreted by: Scott Sinha MD Signed by: Scott Sinha MD 06/19/22 Final result Normal [facility] 1. No evidence of acute pneumonia. [...] known risk factors. Radiology 2017 http://pubs.rsna.org/d oi/full/10.1148/radiol .[id number] [facility] EXAMINATION: CT OF THE CHEST WITHOUT [...] a bone island. No acute osseous abnormality. [facility] Scott Sinha MD - 06/19/2022 EXAMINATION: [...] known risk factors. Radiology 2017 http://pubs.rsna.org/d oi/full/10.1148/radiol .[id number] [employer] Phone: Radiology Study observation (narrative) [employer] Phone: CT CHEST WO CONTRASTOrdered By: Scott Sinha on 06-19-2022 [employer] Phone: FL MODIFIED BARIUM SWALLOW W VIDEOon 06-19-2022 [place] MODIFIED BARIUM SWALLOW W VIDEO EXAMINATION: MODIFIED BARIUM SWALLOW WAS PERFORMED IN CONJUNCTION WITH [employer] TECHNIQUE: Under fluoroscopic evaluation cineradiography/videor adiography recordings were performed in conjunction with the speech-language pathologist (CORPORATE ACCOUNTANT). Various liquid, solid and/or semi-solid barium preparations were used to assess swallowing function. FLUOROSCOPY DOSE AND TYPE OR TIME AND EXPOSURES: DAP 12.073JZeci8 COMPARISON: None HISTORY: ORDERING SYSTEM PROVIDED HISTORY: [...] Juancho Ferrara MD 06/19/22 Final result Normal [facility] Swallowing mechanism grossly within normal limits without evidence of aspiration. Please see separate speech pathology report for full discussion of findings and recommendations. [facility]IS CON[facility] EXAMINATION: MODIFIED BARIUM SWALLOW WAS PERFORMED IN CONJUNCTION WITH [employer] PATH[employer] TECHNIQUE: Under fluoroscopic evaluation cineradiography/videor adiography recordings were performed in conjunction with the speech-language pathologist (CORPORATE ACCOUNTANT). Various liquid, solid and/or semi-solid barium preparations were used to assess swallowing function. FLUOROSCOPY DOSE AND TYPE OR TIME AND EXPOSURES: DAP 12.270KOwzk8 COMPARISON: None HISTORY: ORDERING SYSTEM PROVIDED HISTORY: dysphagia and hx of esophageal dilatation TECHNOLOGIST PROVIDED HISTORY: dysphagia and hx of esophageal dilatation FINDINGS: Patient was given thick and thin barium as well as puree, soft solid and cookie consistency barium. No laryngeal penetration or aspiration. Minimal pooling in the vallecula and piriform sinuses. [facility] Juancho Hall MD - 06/19/2022 EXAMINATION: MODIFIED BARIUM SWALLOW WAS PERFORMED IN CONJUNCTION WITH [employer] TECHNIQUE: Under fluoroscopic evaluation cineradiography/videor adiography recordings were performed in conjunction with the speech-language pathologist (CORPORATE ACCOUNTANT). Various liquid, solid and/or semi-solid barium preparations were used to assess swallowing function. FLUOROSCOPY DOSE AND TYPE OR TIME AND EXPOSURES: DAP 12.371SYtwi2 COMPARISON: None HISTORY: ORDERING SYSTEM PROVIDED HISTORY: [...] for full discussion of findings and recommendations. [employer] Phone: Radiology Study observation (narrative) [employer] Phone: FL MODIFIED BARIUM SWALLOW W VIDEOOrdered By: Juancho Ferrara on 06-19-2022 [facility] [employer] Phone: B12/Folate Panelon 3 Cobalamin (Vitamin B12) [Mass/Vol] 496 pg/mL Normal 232-1245 [facility] Comment on above: Performed By: #### B 12FOL ####[place] [address] lab Director: Sidney Epps MD Folic Acid 5.3 ng/mL Normal >4.8 [facility] Comment on above: Performed By: #### B 12FOL ####[facility] [address] [place] [address] Lab Director: Sidney Epps MD Basic Metab w/rfx MGon 06-18 Anion gap [Moles/Vol] 11 mmol/L Normal 9-17 [facility] Comment on above: Performed By: #### F KRISTEN, IPF, CDP, BMPX, FEBC ####[facility] [address] [place] [address] Lab Director: Sidney Epps MD Calcium [Mass/Vol] 9.2 mg/dL Normal 8.6-10.4 [facility] Comment on above: Performed By: #### F KRISTEN, IPF, CDP, BMPX, FEBC ####[facility] [address] [place], [place] [phone] Director: Sidney Epps MD Chloride [Moles/Vol] 112 mmol/L High 98-107 [facility] Comment on above: Performed By: #### F KRISTEN, IPF, CDP, BMPX, FEBC ####[facility] Tzmohzqjfzfx9299 [place] [address] Lab Director: Sidney Epps MD CO2 [Moles/Vol] 20 mmol/L Normal 20-31 [facility] Comment on above: Performed By: #### F KRISTEN, IPF, CDP, BMPX, FEBC ####[facility] Ylvkemjfskxk6564 [place], [place] [phone] Director: Sidney Epps MD Creatinine [Mass/Vol] 1.51 mg/dL High 0.50-0.90 [facility] Comment on above: Performed By: #### F KRISTEN, IPF, CDP, BMPX, FEBC ####[facility] Xgryfhsdgnjz9211 [place], [place] [phone] Lab Director: Sidney Epps MD GFR/1.73 sq M.predicted among non-blacks MDRD (S/P/Bld) [Vol rate/Area] 34 mL/min/{1.73_m2} Low >60 [facility] Comment on above: Result Comment: These [...] #### F KRISTEN, IPF, CDP, BMPX, FEBC ####[address] [address] Lab Director: Sidney Epps MD Glucose [Mass/Vol] 153 mg/dL High 70-99 [facility] Comment on above: Performed By: #### F KRISTEN, IPF, CDP, BMPX, FEBC ####[facility] [address] [place], [place] [address])[phone] Director: Sidney Epps MD Potassium [Moles/Vol] 4.5 mmol/L Normal 3.7-5.3 [facility] Comment on above: Performed By: #### F KRISTEN, IPF, CDP, BMPX, FEBC ####[facility] [address] [place] [address] Lab Director: Sidney Epps MD Sodium [Moles/Vol] 143 mmol/L Normal 135-144 [facility] Comment on above: Performed By: #### F KRISTEN, IPF, CDP, BMPX, FEBC ####[facility] [address]vqell7498 [place] [address] Lab Director: Sidney Epps MD Urea nitrogen [Mass/Vol] 27 mg/dL High 8-23 [facility] Comment on above: Performed By: #### F KRISTEN, IPF, CDP, BMPX, FEBC ####[facility] Hzjykbhyhksa7599 [place] [address] [facility] Director: Sidney Epps MD Basic Metabolic Panel w/ Ref rashid to MGon 06-18-2022 Anion gap [Moles/Vol] 11 mmol/L 9 - 17 mmol/L [facility] [employer] Calcium [Mass/Vol] 9.2 mg/dL 8.6 - 10.4 mg/dL [facility] [employer] Chloride [Moles/Vol] 112 mmol/L High 98 - 107 mmol/L [facility] [employer] CO2 [Moles/Vol] 20 mmol/L 20 - 31 mmol/L [facility] [employer] Creatinine [Mass/Vol] 1.51 mg/dL High 0.50 - 0.90 mg/dL [facility] GFR/1.73 sq M.predicted MDRD (S/P/Bld) [Vol rate/Area] 34 mL/min/{1.73_m2} Low - PINF [facility] Comment on above: These results are not [...] 153 mg/dL High 70 - 99 mg/dL [facility] Interpretation and review of laboratory results Abnormal [facility] Potassium [Moles/Vol] 4.5 mmol/L 3.7 - 5.3 mmol/L [facility] [employer] Sodium [Moles/Vol] 143 mmol/L 135 - 144 mmol/L [facility] Urea nitrogen [Mass/Vol] 27 mg/dL High 8 - 23 mg/dL [facility] [employer] C1 ESTERASE INHIBITOR PANELo n 06-18-2022 C1 Esterase Inhibitor 38 mg/dL 21 - 38 mg/dL [facility] Comment on above: (NOTE) Performed By: [place] [address] [place] [address] Survey Compiler: Alessio Hung MD, PhD [facility] C1 Esterase Inhibon 06-18-19 23 C1 Esterase Inhib 38 mg/dL Normal 21-38 [facility] Comment on above: Result Comment: (NOT E) Performed By: [facility] [address] [place] [address] Survey Compiler: Alessio Hung MD, PhD Performed By: #### S ED, BNP, CMPX, CRP, IPF, CDP, C4 ####[facility] [address] [place] [address] Lab Director: Sidney Epps MD#### AC1EIN ####[facility] [address] [place] [address] lab Director: Bob Florence MD CBC with Auto Differentialon 06-18-2022 Absolute Eos # 0.00 [facility] Absolute Immature Granulocyte 0.47 High [facility] Absolute Lymph # 1.17 [facility] Absolute [place] # 0.93 [facility] Basophils (Bld) [#/Vol] 0.00 10*3/uL [facility] Basophils/100 WBC (Bld) 0 % 0 - 2 % [facility] Eosinophils/100 WBC (Bld) 0 % Low 1 - 4 % [facility] Hematocrit (Bld) [Volume fraction] 29.1 % Low 36.3 - 47.1 % [facility] Hemoglobin (Bld) [Mass/Vol] 9.4 g/dL Low 11.9 - 15.1 g/dL [facility] Immature granulocytes/100 WBC (Bld) 2 % High 0 [facility] Interpretation and review of laboratory results Abnormal [facility] Lymphocytes/100 WBC (Bld) 5 % Low 24 - 43 % [facility] MCH (RBC) [Entitic mass] 29.8 pg 25.2 - 33.5 pg [facility] MCHC (RBC) [Mass/Vol] 32.3 g/dL 28.4 - 34.8 g/dL [facility] MCV (RBC) [Entitic vol] 92.4 fL 82.6 - 102.9 fL [facility] Monocytes/100 WBC (Bld) 4 % 3 - 12 % [facility] Morphology Min (Bld) [Interp] ANISOCYTOSIS PRESENT [facility] NRBC Automated 0.0 0.0 per 100 WBC [facility] Platelet distribution width (Bld) [Ratio] 14.6 % High 11.8 - 14.4 % [facility] Platelets (Bld) [#/Vol] See Reflexed IPF Result [facility] RBC (Bld) [#/Vol] 3.15 10*6/uL Low 3.95 - 5.11 m/uL [facility] Segmented neutrophils/100 WBC (Bld) 89 % High 36 - 65 % [facility] Segs Absolute 20.73 High [facility] WBC (Bld) [#/Vol] 23.3 10*3/uL High [facility] CBC with Diffon 06-18-2022 Abs. Basophil 0.00 k/uL Normal 0.00-0.20 [facility] Comment on above: Performed By: #### F KRISTEN, IPF, CDP, BMPX, FEBC ####[employer] Ipm[address]pqat[address] [place] [address] Lab Director: Sidney Epps MD Abs.Imm.Granulocyt e 0.47 k/uL High 0.00-0.30 [facility] Comment on above: Performed By: #### F KRISTEN, IPF, CDP, BMPX, FEBC ####[facility] F[address] [place] [address] Lab Director: Sidney Epps MD Abs.Neutrophil (Seg) 20.73 k/uL High 1.50-8.10 [facility] Comment on above: Performed By: #### F KRISTEN, IPF, CDP, BMPX, FEBC ####[facility] Fgsmtfrqokch1306 [place] [address] Lab Director: Sidney Epps MD Basophils/100 WBC (Bld) 0 % Normal 0-2 [facility] Comment on above: Performed By: #### F KRISTEN, IPF, CDP, BMPX, FEBC ####[facility] [address] [place] [address] [phone] Director: Sidney Epps MD Eosinophils (Bld) [#/Vol] 0.00 10*3/uL Normal 0.00-0.44 [facility] Comment on above: Performed By: #### F KRISTEN, IPF, CDP, BMPX, FEBC ####[address] [address] Lab Director: Sidney Epps MD Eosinophils/100 WBC (Bld) 0 % Low 1-4 [facility] Comment on above: Performed By: #### F KRISTEN, IPF, CDP, BMPX, FEBC ####[address] [phone] Director: Sidney Epps MD Immature granulocytes/100 WBC (Bld) 2 % High 0 [facility] Comment on above: Performed By: #### F KRISTEN, IPF, CDP, BMPX, FEBC ####[address] [phone] Director: Sidney Epps MD Lymphocytes (Bld) [#/Vol] 1.17 10*3/uL Normal 1.10-3.70 [facility] Comment on above: Performed By: #### F KRISTEN, IPF, CDP, BMPX, FEBC ####[facility] [address] [place] [address] [phone] Director: Sidney Epps MD Lymphocytes/100 WBC (Bld) 5 % Low 24-43 [facility] Comment on above: Performed By: #### F KRISTEN, IPF, CDP, BMPX, FEBC ####[address] [phone] Director: Sidney Epps MD Monocytes (Bld) [#/Vol] 0.93 10*3/uL Normal 0.10-1.20 [facility] Comment on above: Performed By: #### F KRISTEN, IPF, CDP, BMPX, FEBC ####[address] [phone] Director: Sidney Epps MD Monocytes/100 WBC (Bld) 4 % Normal 3-12 [facility] Comment on above: Performed By: #### F KRISTEN, IPF, CDP, BMPX, FEBC ####[address] [phone] Director: Sidney Epps MD Morphology Min (Bld) [Interp] ANISOCYTOSIS PRESENT Normal [facility] Comment on above: Performed By: #### F KRISTEN, IPF, CDP, BMPX, FEBC ####[address] [phone] Director: Sidney Epps MD Neutrophil (Seg) 89 % High 36-65 [facility] Comment on above: Performed By: #### F KRISTEN, IPF, CDP, BMPX, FEBC ####[address] [phone] Director: Sidney Epps MD Erythrocyte distribution width (RBC) [Ratio] 14.6 % High 11.8-14.4 [facility] Comment on above: Performed By: #### F KRISTEN, IPF, CDP, BMPX, FEBC ####[address] [phone] Director: Sidney Epps MD Hematocrit (Bld) [Volume fraction] 29.1 % Low 36.3-47.1 [facility] Comment on above: Performed By: #### F KRISTEN, IPF, CDP, BMPX, FEBC ####[facility] [address] [place], [place] [phone] Director: Sidney Epps MD Hemoglobin (Bld) [Mass/Vol] 9.4 g/dL Low 11.9-15.1 [facility] Comment on above: Performed By: #### F KRISTEN, IPF, CDP, BMPX, FEBC ####[facility] [address] [place], [place] [phone] Director: Sidney Epps MD MCH (RBC) [Entitic mass] 29.8 pg Normal 25.2-33.5 [facility] Comment on above: Performed By: #### F KRISTEN, IPF, CDP, BMPX, FEBC ####[facility] [address]47[address] [place], [place] [phone] Director: Sidney Epps MD MCHC (RBC) [Mass/Vol] 32.3 g/dL Normal 28.4-34.8 [facility] Comment on above: Performed By: #### F KRISTEN, IPF, CDP, BMPX, FEBC ####[address] [phone] Director: Sidney Epps MD MCV (RBC) [Entitic vol] 92.4 fL Normal 82.6-102.9 [facility] Comment on above: Performed By: #### F KRISTEN, IPF, CDP, BMPX, FEBC ####[facility] [address] [place], [place] [phone] Director: Sidney Epps MD NRBC Automated 0.0 per 100 WBC Normal 0.0 [facility] Comment on above: Performed By: #### F KRISTEN, IPF, CDP, BMPX, FEBC ####[facility] [address] [place] [address] lab Director: Sidney Epps MD Platelet Count See Reflexed IPF Result Normal 138-453 [facility] Comment on above: Performed By: #### F KRISTEN, IPF, CDP, BMPX, FEBC ####[facility] [address] [place] [address] Lab Director: Sidney Epps MD RBC (Bld) [#/Vol] 3.15 10*6/uL Low 3.95-5.11 [facility] Comment on above: Performed By: #### F KRISTEN, IPF, CDP, BMPX, FEBC ####[facility] Yx[address] [place], [place] [phone] Lab Director: Sidney Epps MD WBC (Bld) [#/Vol] 23.3 10*3/uL High 3.5-11.3 [facility] Comment on above: Performed By: #### F KRISTEN, IPF, CDP, BMPX, FEBC ####[facility] W[address]ql[address] [place], [place] [phone] Lab Director: Sidney Epps MD EKG 12 leadOrdered By: Unkno wn Result on 06-18-2022 Atrial Rate 94 BPM [facility] SECU[employer] Services P [place] 119 degrees [facility] [employer] P-R Interval 168 ms [facility] SEC[facility] [employer] Q-T Interval 370 ms [facility] SECPEACEHE[facility] UNITED GENERAL MEDICAL CENTERParadial QRS Duration 74 ms [facility] VCUParadial QTc Calculation (Bazett) 462 ms [facility] SECOURS [facility] R [place] 171 degrees [facility] SECUNIV[facility] T [place] 120 degrees [facility] SECOURS [facility] Ventricular Rate 94 BPM [facility] SECPEACEHEALTH UNITED GENERAL MED[facility] CENTERGene[facility] HEALTH EKG 12 leadon 06-18-2022 Suspect arm lead reversal, interpretation assumes no reversal Normal sinus rhythm Right axis deviation Nonspecific ST abnormality Abnormal ECG No previous ECGs available [facility] STV MUSE Result, Unknown Provider - 06/18/2022 Suspect arm lead reversal, interpretation assumes no reversal Normal sinus rhythm Right axis deviation Nonspecific ST abnormality Abnormal ECG No previous ECGs available [employer] Work Phone: Ferritinon 06-18-2022 Ferritin [Mass/Vol] 92 ng/mL Normal 13-150 [facility] Comment on above: Performed By: #### F KRISTEN, IPF, CDP, BMPX, FEBC ####[facility] CincinnatiFooducateXirotrboyvsd7854 [place], [place] [phone] Director: Sidney Epps MD Ferritin [Mass/Vol] 92 ng/mL 13 - 150 ng/mL [facility] Immature Platelet Fractionon 06-18-2022 Platelet, Fluorescence 223 [facility] shoutr Comment on above: ORDERED BY LAB Platelet, Immature Fraction 2.8 % 1.1 - 10.3 % [facility] Comment on above: ORDERED BY LAB [facility] Iron Binding Cap.on 06-18-19 23 % Fe Saturation 24 % Normal 20-55 [facility] Comment on above: Performed By: #### F KRISTEN, IPF, CDP, BMPX, FEBC ####[facility] [address] [place], [place] [phone] Director: Sidney Epps MD Iron [Mass/Vol] 63 ug/dL Normal 37-145 [facility] Comment on above: Performed By: #### F KRISTEN, IPF, CDP, BMPX, FEBC ####[facility] Rbsmzx[address]argjb[address] [place], [place] [phone] Director: Sidney Epps MD Total Fe Binding Cap 260 ug/dL Normal 250-450 [facility] Comment on above: Performed By: #### F KRISTEN, IPF, CDP, BMPX, FEBC ####[facility] X[address] [place], [place] [phone] Director: Sidney Epps MD Unbound Fe Bind Cap 197 ug/dL Normal 112-347 [facility] Comment on above: Performed By: #### F KRISTEN, IPF, CDP, BMPX, FEBC ####[facility] [address]kl[address]ub[address] [place] [address] Lab Director: Sidney Epps MD Iron and TIBCon 06-18-2022 Iron [Mass/Vol] 63 ug/dL 37 - 145 ug/dL [facility] S [facility] Iron binding capacity [Mass/Vol] 260 ug/dL 250 - 450 ug/dL [facility] Iron Saturation 24 % 20 - 55 % [facility] UIBC 197 ug/dL 112 - 347 ug/dL [facility] MRSA DNA Probe, Nasalon MRSA, DNA, [...] for MRSA infections. Specimen Description .NASAL SWAB [facility] MRSA, DNA, Nasalon MRSA, DNA, Nasal Negative Normal NEG [facility] Comment on above: Result Comment: NEGA TIVE: MRSA DNA not detected by nucleic acid amplification. Results should be used as an adjunct to nosocomial control efforts to identify patients needing enhanced precautions. The test is not intended to identify patients with staphylococcal infections. Results should not be used to guide or monitor treatment for MRSA infections. Performed By: #### M RSANO #### [employer] [address] [place] [address] Automotive Generator Repairer: Sidney Epps MD PLT, Immature Fract.on 06-18 Platelet, Fluoresc. 223 k/uL Normal 138-453 [facility] Comment on above: Result Comment: ORDE RED BY LAB Performed By: #### F KRISTEN, IPF, CDP, BMPX, FEBC ####[employer] [address]wh[address]qiq[address] [place] [address] Lab Director: Sidney Epps MD PLT, Immature Fract. 2.8 % Normal 1.1-10.3 [facility] Comment on above: Result Comment: ORDE RED BY LAB Performed By: #### F KRISTEN, IPF, CDP, BMPX, FEBC ####[employer] Dxzqkpqdxjag2897 [place] [address] Lab Director: Sidney Epps MD Vitamin B12 & Folateon 06-18 Cobalamin (Vitamin B12) [Mass/Vol] 496 pg/mL 232 - 1245 pg/mL [facility] Folate [Mass/Vol] 5.3 ng/mL 4.8 - PINF ng/mL B ON [facility] Brain Natri. Peptideon 06-17 Natriuretic peptide B (Bld) [Mass/Vol] 1834 pg/mL High <300 [facility] Comment on above: Result Comment: An age-independent cutoff point of 300 pg/ml has a 98% negative predictive value excluding acute heart failure. Performed By: #### S ED, BNP, CMPX, CRP, IPF, CDP, C4 #### [address] [address] [employer] Generator Repairer: Sidney Epps MD #### AC1EIN #### [facility] [address] [place], [place] [id number] [employer]otive Generator Repairer: Bob Florence MD Brain Natriuretic Peptideon 06-17-2022 Natriuretic peptide B (Bld) [Mass/Vol] 1834 pg/mL High NINF - 300 pg/mL [facility] Comment on above: An age-independent cutoff point of 300 pg/ml has a 98% negative predictive value excluding acute heart failure. C-Reactive Proteinon 023 CRP [Mass/Vol] mg/L Normal 0.0-5.0 [facility] Comment on above: Performed By: #### S ED, BNP, CMPX, CRP, IPF, CDP, C4 #### [facility] [address] [place] [address] [employer] Gener[employer] Repairer: Sidney Epps MD #### AC1EIN #### [facility] [address] [place], [place] [id number] [employer] Generator Repairer: Bob Florence MD CRP High sensitivity method [Mass/Vol] mg/L 0.0 - 5.0 mg/L [facility] C4on 06-17-2022 C4 33 mg/dL Normal 10-40 [facility] Comment on above: Performed By: #### S ED, BNP, CMPX, CRP, IPF, CDP, C4 #### [facility] [address] [place] [address] Automotive Generator Repairer: Sidney Epps MD #### AC1EIN #### [facility] [address] [place] [address] [employer] Generator Repairer: Bob Florence MD C4 COMPLEMENTon 06-17-2022 Complement C4 33 mg/dL 10 - 40 mg/dL [facility] CBC with Auto Differentialon 06-17-2022 Absolute Eos # [facility] Absolute Immature Granulocyte 0.19 [facility] Absolute Lymph # 0.80 Low [facility] Absolute [place] # 0.17 [facility] Basophils Absolute [facility] Basophils/100 WBC (Bld) 0 % 0 - 2 % [facility] Eosinophils/100 WBC (Bld) 0 % Low 1 - 4 % [facility] Hematocrit (Bld) [Volume fraction] 32.6 % Low 36.3 - 47.1 % [facility] Hemoglobin (Bld) [Mass/Vol] 10.2 g/dL Low 11.9 - 15.1 g/dL [facility] Immature granulocytes/100 WBC (Bld) 2 % High 0 [facility] Interpretation and review of laboratory results Abnormal [facility] Lymphocytes/100 WBC (Bld) 6 % Low 24 - 43 % [facility] MCH (RBC) [Entitic mass] 29.9 pg 25.2 - 33.5 pg [facility] MCHC (RBC) [Mass/Vol] 31.3 g/dL 28.4 - 34.8 g/dL [facility] MCV (RBC) [Entitic vol] 95.6 fL 82.6 - 102.9 fL [facility] Monocytes/100 WBC (Bld) 1 % Low 3 - 12 % [facility] shout[employer] NRBC Automated 0.0 0.0 per 100 WBC [facility] shoutr Platelet distribution width (Bld) [Ratio] 14.2 % 11.8 - 14.4 % [facility] [employer] Platelets (Bld) [#/Vol] See Reflexed IPF Result [facility] [employer] RBC (Bld) [#/Vol] 3.41 10*6/uL Low 3.95 - 5.11 m/uL [facility] [employer] Segmented neutrophils/100 WBC (Bld) 91 % High 36 - 65 % [facility] [employer] Segs Absolute 11.59 High [facility] shout[employer] WBC (Bld) [#/Vol] 12.8 10*3/uL High [facility] shout[employer] CBC with Diffon 06-17-2022 Abs. Basophil <0.03 Normal 0.00-0.20 [facility] Comment on above: Performed By: #### S ED, BNP, CMPX, CRP, IPF, CDP, C4 #### [facility] CincinnatiFooduc[facility] [address] [place] [address] [employer] Generator Repairer: Sidney Epps MD #### AC1EIN #### [facility] [address] [place] [address] Automotive Generator Repairer: Bob Florence MD Abs. Eosinophil <0.03 Normal 0.00-0.44 [facility] Comment on above: Performed By: #### S ED, BNP, CMPX, CRP, IPF, CDP, C4 #### [employer] [facility] [place] [address] Automotive Generator Repairer: Sidney Epps MD #### AC1EIN #### [facility] [address] [place] [address] Automotive Generator Repairer: Bob Florence MD Abs.Imm.Granulocyt e 0.19 k/uL Normal 0.00-0.30 [facility] Comment on above: Performed By: #### S ED, BNP, CMPX, CRP, IPF, CDP, C4 #### [facility] [place] [address] Automotive Generator Repairer: Sidney Epps MD #### AC1EIN #### [facility] [address] [place], [place] [id number] Automotive Generator Repairer: Bob Florence MD Abs.Neutrophil (Seg) 11.59 k/uL High 1.50-8.10 [facility] Comment on above: Performed By: #### S ED, BNP, CMPX, CRP, IPF, CDP, C4 #### [facility] [address] [place] [address] [employer] Generator Repairer: Sidney Epps MD #### AC1EIN #### [facility] [address] [place], [place] [id number] Autom[employer] Generator Repairer: Bob Florence MD Basophils/100 WBC (Bld) 0 % Normal 0-2 [facility] Comment on above: Performed By: #### S ED, BNP, CMPX, CRP, IPF, CDP, C4 #### [address] [id number] [employer] Generator Repairer: Sidney Epps MD #### AC1EIN #### [facility] [address] [place], [place] [id number] [employer] Generator Repairer: Bob Florence MD Eosinophils/100 WBC (Bld) 0 % Low 1-4 [facility] Comment on above: Performed By: #### S ED, BNP, CMPX, CRP, IPF, CDP, C4 #### [address] [id number] [employer] Gener[employer] Repairer: Sidney Epps MD #### AC1EIN #### [facility] [address] [place], [place] [id number] Autom[employer] Generator Repairer: Bob Florence MD Erythrocyte distribution width (RBC) [Ratio] 14.2 % Normal 11.8-14.4 [facility] Comment on above: Performed By: #### S ED, BNP, CMPX, CRP, IPF, CDP, C4 #### [facility] [address] [place] [address] Automotive Generator Repairer: Sidney Epps MD #### AC1EIN #### [facility] [address] [place] [address] Automotive Generator Repairer: Bob Florence MD Hematocrit (Bld) [Volume fraction] 32.6 % Low 36.3-47.1 [facility] Comment on above: Performed By: #### S ED, BNP, CMPX, CRP, IPF, CDP, C4 #### [place] [address] [employer] Generator Repairer: Sidney Epps MD #### AC1EIN #### [facility] [address] [place], [place] [id number] Autom[employer] Generator Repairer: Bob Florence MD Hemoglobin (Bld) [Mass/Vol] 10.2 g/dL Low 11.9-15.1 [facility] Comment on above: Performed By: #### S ED, BNP, CMPX, CRP, IPF, CDP, C4 #### [address] [address] [employer] Generator Repairer: Sidney Epps MD #### AC1EIN #### [facility] [address] [place], [place] [id number] Autom[employer] Generator Repairer: Bob Florence MD Immature granulocytes/100 WBC (Bld) 2 % High 0 [facility] Comment on above: Performed By: #### S ED, BNP, CMPX, CRP, IPF, CDP, C4 #### [address] [address] [employer] Generator Repairer: Sidney Epps MD #### AC1EIN #### [facility] [address] [place], [place] [id number] Autom[employer] Generator Repairer: Bob Florence MD Lymphocytes (Bld) [#/Vol] 0.80 10*3/uL Low 1.10-3.70 [facility] Comment on above: Performed By: #### S ED, BNP, CMPX, CRP, IPF, CDP, C4 #### [address] [address] Automotive Generator Repairer: Sidney Epps MD #### AC1EIN #### [facility] [address] [place], [place] [id number] [employer] Repairer: Bob Florence MD Lymphocytes/100 WBC (Bld) 6 % Low 24-43 [facility] Comment on above: Performed By: #### S ED, BNP, CMPX, CRP, IPF, CDP, C4 #### [address] [address] [employer] Gener[employer] Repairer: Sidney Epps MD #### AC1EIN #### [address] [id number] [employer] Repairer: Bob Florence MD MCH (RBC) [Entitic mass] 29.9 pg Normal 25.2-33.5 [facility] Comment on above: Performed By: #### S ED, BNP, CMPX, CRP, IPF, CDP, C4 #### [address] [address] [employer] Gener[employer] Repairer: Sidney Epps MD #### AC1EIN #### [facility] [address] [place], [place] [id number] [employer] Gener[employer] Repairer: Bob Florence MD MCHC (RBC) [Mass/Vol] 31.3 g/dL Normal 28.4-34.8 [facility] Comment on above: Performed By: #### S ED, BNP, CMPX, CRP, IPF, CDP, C4 #### [address] [id number] [employer] Repairer: Sidney Epps MD #### AC1EIN #### [facility] [address] [place] [address] [employer] Generator Repairer: Bob Florence MD MCV (RBC) [Entitic vol] 95.6 fL Normal 82.6-102.9 [facility] Comment on above: Performed By: #### S ED, BNP, CMPX, CRP, IPF, CDP, C4 #### [address] [address] [employer] Gener[employer] Repairer: Sidney Epps MD #### AC1EIN #### [facility] [address] [place] [address] [employer] Generator Repairer: Bob Florence MD Monocytes (Bld) [#/Vol] 0.17 10*3/uL Normal 0.10-1.20 [facility] Comment on above: Performed By: #### S ED, BNP, CMPX, CRP, IPF, CDP, C4 #### [address] [address] [employer] Gener[employer] Repairer: Sidney Epps MD #### AC1EIN #### [facility] [address] [place], [place] [id number] [employer] Repairer: Bob Florence MD Monocytes/100 WBC (Bld) 1 % Low 3-12 [facility] Comment on above: Performed By: #### S ED, BNP, CMPX, CRP, IPF, CDP, C4 #### [address] [address] [employer] Generator Repairer: Sidney Epps MD #### AC1EIN #### [facility] [address] [place] [address] [employer] Generator Repairer: Bob Florence MD Neutrophil (Seg) 91 % High 36-65 [facility] Comment on above: Performed By: #### S ED, BNP, CMPX, CRP, IPF, CDP, C4 #### [address] [address] [employer] Gener[employer] Repairer: Sidney Epps MD #### AC1EIN #### [facility] [address] [place] [address] [employer] Generator Repairer: Bob Florence MD NRBC Automated 0.0 per 100 WBC Normal 0.0 [facility] Comment on above: Performed By: #### S ED, BNP, CMPX, CRP, IPF, CDP, C4 #### [address] [address] [employer] Generator Repairer: Sidney Epps MD #### AC1EIN #### [facility] [address] [place], [place] [id number] [employer] Generator Repairer: Bob Florence MD Platelet Count See Reflexed IPF Result Normal 138-453 [facility] Comment on above: Performed By: #### S ED, BNP, CMPX, CRP, IPF, CDP, C4 #### [address] [address] [employer] Generator Repairer: Sidney Epps MD #### AC1EIN #### [facility] [address] [place] [address] [employer] Generator Repairer: Bob Florence MD RBC (Bld) [#/Vol] 3.41 10*6/uL Low 3.95-5.11 [facility] Comment on above: Performed By: #### S ED, BNP, CMPX, CRP, IPF, CDP, C4 #### [address] [address] [employer] Generator Repairer: Sidney Epps MD #### AC1EIN #### [facility] [address] [place], [place] [id number] [employer] Generator Repairer: Bob Florence MD WBC (Bld) [#/Vol] 12.8 10*3/uL High 3.5-11.3 [facility] Comment on above: Performed By: #### S ED, BNP, CMPX, CRP, IPF, CDP, C4 #### [facility] [address] [place] [address] [employer] Generator Repairer: Sidney Epps MD #### AC1EIN #### [facility] [address] [place] [address] [employer] Generator Repairer: Bob Florence MD COVID-19, Rapidon 06-17-2022 Interpretation and review of laboratory results Abnormal [facility] SARS-CoV-2 (COVID-19) RdRp gene JESS+probe Ql (Resp) Detected Abnormal Not Detected [facility] Comment on above: Rapid NAAT: [...] this assay. Fact sheet for Healthcare Providers: https://www.fda.gov/media/537013/download Fact sheet for Patients: https://www.fda.gov/media/436238/download Methodology: Isothermal Nucleic Acid Amplification Results reported to the appropriate Health Department Specimen Description .NASOPHARYNGEAL SWAB [facility] CT NECK [facility] CONon [address] NECK [facility] CON INDICATION: 86 years old; Female. Symptom/Location/Durat [...] worse on the right than the left. VP PLATFORMS SPACE: Normal in appearance. RETROPHARYNGEAL SPACE: Normal [...] SERGIO DUQUE Date: 2022-06-17 01:58 Normal [facility] Comp Metabolic Pr/rfx MGon 0 06-17-2022 Albumin [Mass/Vol] 4.3 g/dL Normal 3.5-5.2 [facility] Comment on above: Performed By: #### S ED, BNP, CMPX, CRP, IPF, CDP, C4 #### [facility] [address] [place], [place] [id number] Autom[employer] Generator Repairer: Sidney Epps MD #### AC1EIN #### [facility] [address] [place] [address] Autom[employer] Generator Repairer: Bob Florence MD Albumin/Glob Ratio 1.8 Normal 1.0-2.5 [facility] Comment on above: Performed By: #### S ED, BNP, CMPX, CRP, IPF, CDP, C4 #### [address] [address] Autom[employer] Generator Repairer: Sidney Epps MD #### AC1EIN #### [address] [id number] [employer] Generator Repairer: Bob Florence MD Alkaline Phos 148 U/L High 35-104 [facility] Comment on above: Performed By: #### S ED, BNP, CMPX, CRP, IPF, CDP, C4 #### [address] [address] [employer] Generator Repairer: Sidney Epps MD #### AC1EIN #### [address] [phone] [employer] Generator Repairer: Bob Florence MD ALT [Catalytic activity/Vol] 10 U/L Normal 5-33 [facility] Comment on above: Performed By: #### S ED, BNP, CMPX, CRP, IPF, CDP, C4 #### [address] [phone] [employer] Generator Repairer: Sidney Epps MD #### AC1EIN #### [address] [phone] [employer] Generator Repairer: Bob Florence MD Anion gap [Moles/Vol] 17 mmol/L Normal 9-17 [facility] Comment on above: Performed By: #### S ED, BNP, CMPX, CRP, IPF, CDP, C4 #### [address] [address] Autom[employer] Generator Repairer: Sidney Epps MD #### AC1EIN #### [facility] [address] [place] [phone] [employer] Generator Repairer: Bob Florence MD AST [Catalytic activity/Vol] 16 U/L Normal <32 [facility] Comment on above: Performed By: #### S ED, BNP, CMPX, CRP, IPF, CDP, C4 #### [address] [address] [employer] Generator Repairer: Sidney Epps MD #### AC1EIN #### [facility] [address] [place] [id number] [employer] Generator Repairer: Bob Florence MD Bilirubin [Mass/Vol] 0.4 mg/dL Normal 0.3-1.2 [facility] Comment on above: Performed By: #### S ED, BNP, CMPX, CRP, IPF, CDP, C4 #### [address] [address] [employer] Generator Repairer: Sidney Epps MD #### AC1EIN #### [facility] [address] [place] [phone] [employer] Generator Repairer: Bob Florence MD Calcium [Mass/Vol] 9.7 mg/dL Normal 8.6-10.4 [facility] Comment on above: Performed By: #### S ED, BNP, CMPX, CRP, IPF, CDP, C4 #### [address] [address] [employer] Generator Repairer: Sidney Epps MD #### AC1EIN #### [facility] [address] [place] [phone] [employer] Generator Repairer: Bob Florence MD Chloride [Moles/Vol] 107 mmol/L Normal 98-107 [facility] Comment on above: Performed By: #### S ED, BNP, CMPX, CRP, IPF, CDP, C4 #### [address] [phone] [employer] Generator Repairer: Sidney Epps MD #### AC1EIN #### [facility] [address] [place] [address] Autom[employer] Generator Repairer: Bob Florence MD CO2 [Moles/Vol] 16 mmol/L Low 20-31 [facility] Comment on above: Performed By: #### S ED, BNP, CMPX, CRP, IPF, CDP, C4 #### [facility] [address] [place] [phone] [employer] Generator Repairer: Sidney Epps MD #### AC1EIN #### [facility] [address] [place] [address] Automotive Generator Repairer: Bob Florence MD Creatinine [Mass/Vol] 1.24 mg/dL High 0.50-0.90 [facility] Comment on above: Performed By: #### S ED, BNP, CMPX, CRP, IPF, CDP, C4 #### [address] [phone] [employer] Generator Repairer: Sidney Epps MD #### AC1EIN #### [facility] [address] [place], [place] [id number] [employer] Gener[employer] Repairer: Bob Florence MD GFR/1.73 sq M.predicted among non-blacks MDRD (S/P/Bld) [Vol rate/Area] 43 mL/min/{1.73_m2} Low >60 [facility] Comment on above: Result Comment: These [...] BNP, CMPX, CRP, IPF, CDP, C4 #### [facility] [address] [place] [phone] [employer] Generator Repairer: Sidney Epps MD #### AC1EIN #### [facility] [address] [place], [place] [id number] [employer] Generator Repairer: Bob Florence MD Glucose [Mass/Vol] 165 mg/dL High 70-99 [facility] Comment on above: Performed By: #### S ED, BNP, CMPX, CRP, IPF, CDP, C4 #### [facility] [address] [place] [address] [employer] Generator Repairer: Sidney Epps MD #### AC1EIN #### [facility] [address] [place], [place] [id number] [employer] Generator Repairer: Bob Florence MD Potassium [Moles/Vol] 4.2 mmol/L Normal 3.7-5.3 [facility] Comment on above: Performed By: #### S ED, BNP, CMPX, CRP, IPF, CDP, C4 #### [address] [address] [employer] Generator Repairer: Sidney Epps MD #### AC1EIN #### [facility] [address] [place], [place] [id number] Autom[employer] Generator Repairer: Bob Florence MD Protein [Mass/Vol] 6.7 g/dL Normal 6.4-8.3 [facility] Comment on above: Performed By: #### S ED, BNP, CMPX, CRP, IPF, CDP, C4 #### [facility] [address] [place] [address] Autom[employer] Generator Repairer: Sidney Epps MD #### AC1EIN #### [facility] [address] [place] [address] Automotive Generator Repairer: Bob Florence MD Sodium [Moles/Vol] 140 mmol/L Normal 135-144 [facility] Comment on above: Performed By: #### S ED, BNP, CMPX, CRP, IPF, CDP, C4 #### [address] [place] [phone] [employer] Generator Repairer: Sidney Epps MD #### AC1EIN #### [facility] [address] [place] [address] Automotive Generator Repairer: Bob Florence MD Urea nitrogen [Mass/Vol] 22 mg/dL Normal 8-23 [facility] Comment on above: Performed By: #### S ED, BNP, CMPX, CRP, IPF, CDP, C4 #### [facility] [address] [place], [place] [phone] [employer] Generator Repairer: Sidney Epps MD #### AC1EIN #### [facility] [address] [place] [address] Automotive Generator Repairer: Bob Florence MD Comprehensive Metabolic Pane l w/ Reflex to MGon 06-17-2022 Albumin [Mass/Vol] 4.3 g/dL 3.5 - 5.2 g/dL [facility] Albumin/Globulin [Mass ratio] 1.8 {ratio} 1.0 - 2.5 [facility] ALP [Catalytic activity/Vol] 148 U/L High 35 - 104 U/L [facility] ALT [Catalytic activity/Vol] 10 U/L 5 - 33 U/L [facility] Anion gap [Moles/Vol] 17 mmol/L 9 - 17 mmol/L [facility] AST [Catalytic activity/Vol] 16 U/L NINF - 32 U/L [facility] Bilirubin [Mass/Vol] 0.4 mg/dL 0.3 - 1.2 mg/dL [facility] Calcium [Mass/Vol] 9.7 mg/dL 8.6 - 10.4 mg/dL [facility] Chloride [Moles/Vol] 107 mmol/L 98 - 107 mmol/L [facility] CO2 [Moles/Vol] 16 mmol/L Low 20 - 31 mmol/L [facility] Creatinine [Mass/Vol] 1.24 mg/dL High 0.50 - 0.90 mg/dL [facility] GFR/1.73 sq M.predicted MDRD (S/P/Bld) [Vol rate/Area] 43 mL/min/{1.73_m2} Low - [facility] shoutr Comment on above: These results are not [...] 165 mg/dL High 70 - 99 mg/dL [facility] Potassium [Moles/Vol] 4.2 mmol/L 3.7 - 5.3 mmol/L [facility] Protein [Mass/Vol] 6.7 g/dL 6.4 - 8.3 g/dL [facility] Sodium [Moles/Vol] 140 mmol/L 135 - 144 mmol/L [facility] Urea nitrogen [Mass/Vol] 22 mg/dL 8 - 23 mg/dL [facility] Covid-19 PCR (CVDTB)on SARS-CoV-2 (COVID-19) RNA JESS+probe Ql (Unsp spec) Detected Abnormal NOT DETECTED [facility] Comment on above: Result Comment: This test is not yet approved or cleared by the [place] FDA. When there are no FDA-approved or cleared tests available, and other criteria are met, FDA can make tests available under an emergency access mechanism called an Emergency Use Authorization (EUA). The EUA for this test is supported by the Molded Goods Operator of Health and Human Service's declaration that [...] used). Performed By: #### C VDTB #### [facility] [address] [place] [address] Dr. Yilan Little Immature Platelet Fractionon 06-17-2022 Platelet, Fluorescence Platelet clumps present, count appears adequate. [facility] MRSA, DNA, Nasalon 3 Specimen Description .NASAL SWAB Normal [facility] Comment on above: Performed By: #### M RSANO #### [facility] [address] [place] [phone] [employer] Generator Repairer: Sidney Epps MD No Panel Informationon 06-17 Interpretation and review of laboratory results Abnormal [facility] PLT, Immature Fract.on 06-17 Platelet, Fluoresc. Platelet clumps present, count appears adequate. Normal 138-453 [facility] Comment on above: Performed By: #### S ED, BNP, CMPX, CRP, IPF, CDP, C4 #### [address] [id number] Autom[employer] Generator Repairer: Sidney Epps MD #### AC1EIN #### [facility] [address] [place], [place] [id number] Automotive Generator Repairer: Bob Florence MD POC Glucose Fingerstickon Glucose [Mass/Vol] 130 mg/dL High 65 - 105 mg/dL [facility] Interpretation and review of laboratory results Abnormal [facility] Glucose [Mass/Vol] 149 mg/dL High 65 - 105 mg/dL [facility] Interpretation and review of laboratory results Abnormal [facility] [id number] 06-17-2022 SARS-CoV-2 (COVID-19) RNA JESS+probe Ql (Unsp spec) Detected Abnormal NOTDET [facility] Comment on above: Result Comment: Rapid [...] this assay. Fact sheet for Healthcare Providers: https://www.fda.gov/media/216930/download Fact sheet for Patients: https://www.fda.gov/media/292262/download Methodology: Isothermal Nucleic Acid Amplification Results reported to the appropriate Health Department Performed By: #### C OVRB ####[employer] [id number] [place] [address] Lab Director: Sidney Epps MD Sedimentation Rateon 023 Sedimentation Rate 9 mm/Hr Normal 0-30 [facility] Comment on above: Performed By: #### S ED, BNP, CMPX, CRP, IPF, CDP, C4 #### [facility] [address] [place] [address] Automotive Generator Repairer: Sidney Epps MD #### AC1EIN #### [facility] [address] [place], [place] [phone] [employer] Generator Repairer: Bob Florence MD ESR (Bld) [Velocity] 9 mm/h [facility] XR CHEST PORTABLEon 06-17-19 23 XR CHEST [...] Sweetie Robles DO 06/17/22 Final result Normal [facility] 1. No acute intrathoracic process. 2. Large hiatal hernia. 3. Nodular density overlying right upper lung, possibly related to the posterior right 5th rib versus parenchymal nodule. Consider CT imaging for further evaluation. [facility] EXAMINATION: ONE XRAY VIEW OF THE [...] rib. No evidence of acute osseous abnormality. [facility] Sweetie Robles DO - 06/17/2022 EXAMINATION: [...] nodule. Consider CT imaging for further evaluation. [employer] Phone: Radiology Study observation (narrative) [employer] Phone: XR CHEST PORTABLEOrdered By: Sweetie Robles on 06-17-2022 [facility] [employer] Phone: BNPon 06-16-2022 Natriuretic peptide B (Bld) [Mass/Vol] 535.0 pg/mL Normal <=1,800.0 [facility] Comment on above: Performed By: #### C MADM, CMP, BNP #### [facility] [address] [place] [address] Dr. Carla Little CARDIAC KAPIL ADMITon 023 CK [Catalytic activity/Vol] 60 U/L Normal 26-192 [facility] Comment on above: Performed By: #### C MADM, CMP, BNP #### [facility] [address] [place] [address] Dr. Carla Little CK.MB [Mass/Vol] 1.11 ng/mL Normal <=3.60 [facility] Comment on above: Performed By: #### C MADM, CMP, BNP #### [facility] [address] [place] [address] Dr. Carla Little HSTROP 10.7 pg/mL Normal 4.0-51.3 [facility] Comment on above: Result Comment: CUT- OFF POINTS HAVE BEEN ESTABLISHED BASED ON THE FOURTH UNIVERSAL DEFINITIONS OF MYOCARDIAL INFARCTION. THE UPPER REFERENCE LIMIT (URL) OF TROPONIN, DEFINED THE 99TH PERCENTILE OF cTnI DISTRIBUTION IN A REFERENCE POPULATION, HAS BEEN CONFIRMED THE DECISION THRESHOLD FOR [place] DIAGNOSIS. Performed By: #### C MADM, CMP, BNP #### [facility] [address] [place] [address] Dr. Carla Little HOANG 53 ng/mL Normal 9-82 [facility] Comment on above: Performed By: #### C MADM, CMP, BNP #### [facility] [address] [place] [address] Dr. Carla Little CBC AUTO DIFFon 06-16-2022 BASO # 0.1 103/ul Normal 0.0-0.1 [facility] Comment on above: Performed By: #### L IPID, CMP #### [facility] [address] [place] [address] Dr. Carla Little Basophils/100 WBC (Bld) 0.6 % Normal 0.2-2.0 [facility] Comment on above: Performed By: #### L IPID, CMP #### [facility] [address] [place] [address] Dr. Carla Little EO # 0.2 103/ul Normal 0.0-0.7 [facility] Comment on above: Performed By: #### L IPID, CMP #### [facility] [address] [place] [address] Dr. Carla Little Eosinophils/100 WBC (Bld) 1.5 % Normal 0.9-7.0 [facility] Comment on above: Performed By: #### L IPID, CMP #### [facility] [address] [place] [address] Dr. Carla Little Erythrocyte distribution width (RBC) [Ratio] 14.2 % Normal 11.0-15.0 [facility] Comment on above: Performed By: #### L IPID, CMP #### [facility] [address] [place] [address] Dr. Carla Little Hematocrit (Bld) [Volume fraction] 36.9 % Normal 36.0-48.0 [facility] Comment on above: Performed By: #### L IPID, CMP #### [facility] [address] [place] [address] Dr. Carla Little Hemoglobin (Bld) [Mass/Vol] 11.5 g/dL Critically low 12.0-16.0 [facility] Comment on above: Performed By: #### L IPID, CMP #### [facility] [address] [place] [address] Dr. Carla Little IG # 0.11 10e3/ul Critically high 0.00-0.03 [facility] Comment on above: Performed By: #### L IPID, CMP #### [facility] [address] [place] [address] Dr. Carla Little IG % 1.0 % Critically high 0.0-0.5 [facility] Comment on above: Performed By: #### L IPID, CMP #### [facility] [address] [place] [address] Dr. Carla Little LYMPH # 1.5 103/ul Normal 1.2-3.8 [facility] Comment on above: Performed By: #### L IPID, CMP #### [facility] [address] [place] [address] Dr. Carla Little Lymphocytes/100 WBC (Bld) 13.7 % Critically low 20.5-60.0 [facility] Comment on above: Performed By: #### L IPID, CMP #### [facility] [address] [place] [address] Dr. Carla Little MANUAL DIFF REQ NO Normal [facility] Comment on above: Performed By: #### L IPID, CMP #### [facility] [address] [place] [address] Dr. Carla Little MCH (RBC) [Entitic mass] 29.6 pg Normal 26.7-34.0 [facility] Comment on above: Performed By: #### L IPID, CMP #### [facility] [address] [place] [address] Dr. Carla Little MCHC (RBC) [Mass/Vol] 31.2 g/dL Normal 29.9-35.2 [facility] Comment on above: Performed By: #### L IPID, CMP #### [facility] [address] [place] [address] Dr. Carla Little MCV (RBC) [Entitic vol] 94.9 fL Normal 81.0-99.0 [facility] Comment on above: Performed By: #### L IPID, CMP #### [facility] [address] [place] [address] Dr. Carla Little MONO # 0.9 103/ul Critically high 0.3-0.8 [facility] Comment on above: Performed By: #### L IPID, CMP #### [facility] [address] [place] [address] Dr. Carla Little Monocytes/100 WBC (Bld) 8.5 % Normal 1.7-12.0 [facility] Comment on above: Performed By: #### L IPID, CMP #### [facility] [address] [address] [address] Carla Little NEUT # 8.0 103/ul Critically high 1.4-6.5 [facility] Comment on above: Performed By: #### L IPID, CMP #### [facility] [address] [place] [address] Dr. Carla Little Neutrophils/100 WBC (Bld) 74.7 % Normal 43.0-75.0 [facility] Comment on above: Performed By: #### L IPID, CMP #### [facility] [address] [place] [address] Dr. Carla Little Platelet mean volume (Bld) [Entitic vol] 10.1 fL Normal 9.5-13.5 [facility] Comment on above: Performed By: #### L IPID, CMP #### [facility] [address] [place] [address] Dr. Carla Little PLT 304 103/ul Normal 150-450 [facility] Comment on above: Performed By: #### L IPID, CMP #### [facility] [address] [place] [address] Dr. Carla Little RBC 3.89 106/ul Critically low 4.20-5.40 [facility] Comment on above: Performed By: #### L IPID, CMP #### [facility] [address] [place] [address] Dr. Carla Little WBC 10.7 103/ul Normal 4.0-11.0 [facility] Comment on above: Performed By: #### L IPID, CMP #### [facility] [address] [place] [address] Dr. Carla Little PROF 14(COMP METB)on 023 Albumin [Mass/Vol] 3.8 g/dL Normal 3.4-5.0 [facility] Comment on above: Performed By: #### C MADM, CMP, BNP #### [facility] [address] [place] [address] Dr. Carla Little Albumin/Globulin [Mass ratio] 1.3 {ratio} Normal [facility] Comment on above: Performed By: #### C MADM, CMP, BNP #### [facility] [address] [address] [address] Carla Little ALP [Catalytic activity/Vol] 176 U/L Critically high 46-116 [facility] Comment on above: Performed By: #### C MADM, CMP, BNP #### [facility] [address] [address] [address] Carla Little ALT [Catalytic activity/Vol] 13 U/L Critically low 14-59 [facility] Comment on above: Performed By: #### C MADM, CMP, BNP #### [facility] [address] [address] [address] Carla Little Anion gap [Moles/Vol] 18.9 mmol/L Normal [facility] Comment on above: Performed By: #### C MADM, CMP, BNP #### [facility] [address] [address] [address] Carla Little AST [Catalytic activity/Vol] 15 U/L Normal 15-37 [facility] Comment on above: Performed By: #### C MADM, CMP, BNP #### [facility] [address] [address] [address] Carla Little Bilirubin [Mass/Vol] 0.3 mg/dL Normal 0.2-1.0 [facility] Comment on above: Performed By: #### C MADM, CMP, BNP #### [facility] [address] [address] [address] Carla Little Calcium [Mass/Vol] 9.1 mg/dL Normal 8.5-10.1 [facility] Comment on above: Performed By: #### C MADM, CMP, BNP #### [facility] [address] [address] [address] Carla Little Chloride [Moles/Vol] 105 mmol/L Normal 98-107 [facility] Comment on above: Performed By: #### C MADM, CMP, BNP #### [facility] [address] [address] [address] Carla Little CO2 [Moles/Vol] 21.8 mmol/L Normal 21.0-32.0 [facility] Comment on above: Performed By: #### C MADM, CMP, BNP #### [facility] [address] [address] [address] Carla Little Creatinine [Mass/Vol] 1.54 mg/dL Critically high 0.55-1.02 [facility] Comment on above: Performed By: #### C MADM, CMP, BNP #### [facility] [address] [address] [address] Carla Little EGFR-AF MEXICAN 39 mL/min/1.73m2 Critically low >=60 [facility] Comment on above: Performed By: #### C MADM, CMP, BNP #### [facility] [address] [place] [address] Dr. Carla Little EGFR-NON AF MEXICAN 32 mL/min/1.73m2 Critically low >=60 [facility] Comment on above: Performed By: #### C MADM, CMP, BNP #### [facility] [address] [place] [address] Dr. Carla Little Globulin (S) [Mass/Vol] 3.0 g/dL Normal [facility] Comment on above: Performed By: #### C MADM, CMP, BNP #### [facility] [address] [place] [address] Dr. Carla Little Glucose [Mass/Vol] 117 mg/dL Critically high 74-106 T [facility] Comment on above: Performed By: #### C MADM, CMP, BNP #### [facility] [address] [place] [address] Dr. Carla Little Potassium [Moles/Vol] 3.7 mmol/L Normal 3.5-5.1 [facility] Comment on above: Performed By: #### C MADM, CMP, BNP #### [facility] [address] [address] [address] Carla Little Protein [Mass/Vol] 6.8 g/dL Normal 6.4-8.2 [facility] Comment on above: Performed By: #### C MADM, CMP, BNP #### [facility] [address] [place] [address] Dr. Carla Little Sodium [Moles/Vol] 142 mmol/L Normal 136-145 [facility] Comment on above: Performed By: #### C MADM, CMP, BNP #### [facility] [address] [place] [address] Dr. Carla Little Urea nitrogen [Mass/Vol] 24.0 mg/dL Critically high 7.0-18.0 [facility] Comment on above: Performed By: #### C MADM, CMP, BNP #### [facility] [address] [place] [address] Dr. Carla Little Urea nitrogen/Creatinin e [Mass ratio] 15.6 mg/mg Normal [facility] Comment on above: Performed By: #### C MADM, CMP, BNP #### [facility] [address] [place] [address] Dr. Carla Little PROTIMEon 06-16-2022 INR Coag (PPP) [Relative time] 0.95 {INR} Normal [facility] Comment on above: Performed By: #### L IPID, CMP #### [facility] [address] [place] [address] Dr. Carla Little INR GUIDELINES SEE BELOW Normal [facility] Comment on above: Result Comment: KAREN RED INR: 2.0 - 3.0 CONDITIONS NOT LISTED BELOW 2.5 - 3.5 FOR PROSTHETIC HEART VALVE REPLACEMENT 2.5 - 3.5 RECURRENT THROMBOSIS Performed By: #### L IPID, CMP #### [facility] [address] [place] [address] Dr. Carla Little PT Coag (PPP) [Time] 10.1 s Normal 9.0-11.6 [facility] Comment on above: Performed By: #### L IPID, CMP #### [facility] [address] [place] [address] Dr. Carla Little PTTon 06-16-2022 aPTT Coag (Bld) [Time] 24.2 s Normal 22.3-36.2 [facility] Comment on above: Performed By: #### L IPID, CMP #### [facility] [address] [place], [place] [address] Dr. Carla Little TYPE AND SCREENon 06-16-2022 TYPE AND SCREEN Negative Normal [facility] Comment on above: Performed By: #### L IPID, CMP #### [facility] [id number] Carla Little XR CHEST 1 Von [...] BENJAMIN ROGERS Date: 2022-06-16 19:49 Normal [facility] Complete Blood Count Auto Di ffon 11-24-2020 Basophils (Bld) [#/Vol] 0.1 10*3/uL Normal 0.0-0.2 [facility] Comment on above: Result Comment: PERF ORMED BY: [place] [address] PATHOLOGIST QUANTITATIVE RESEARCH ANALYST LANDY GONZALEZ M.D. Performed By: #### H S TROP #### [facility] [address] [place] [address] [place] Basophils/100 WBC (Bld) 0.5 % Normal . [facility] Comment on above: Performed By: #### H S TROP #### [facility] [address] [place] [address] [place] Eosinophils (Bld) [#/Vol] 0.2 10*3/uL Normal 0.0-0.45 [facility] Comment on above: Performed By: #### H S TROP #### [facility] [address] [place] [address] [place] Eosinophils/100 WBC (Bld) 1.5 % Normal . [facility] Comment on above: Performed By: #### H S TROP #### [facility] [address] Erythrocyte distribution width (RBC) [Ratio] 19.8 % High 11.9-15.3 [facility] Comment on above: Performed By: #### H S TROP #### [facility] [address] Hematocrit (Bld) [Volume fraction] 33.9 % Low 34.0-46.4 [facility] Comment on above: Performed By: #### H S TROP #### [address] Hemoglobin (Bld) [Mass/Vol] 11.0 g/dL Low 11.8-15.4 [facility] Comment on above: Performed By: #### H S TROP #### [address] Lymphocytes (Bld) [#/Vol] 1.1 10*3/uL Normal 1.00-4.8 [facility] Comment on above: Performed By: #### H S TROP #### [address] Lymphocytes/100 WBC (Bld) 6.8 % Normal . [facility] Comment on above: Performed By: #### H S TROP #### [address] MCH (RBC) [Entitic mass] 27.3 pg Normal 24.7-34.3 [facility] Comment on above: Performed By: #### H S TROP #### [address] MCV (RBC) [Entitic vol] 84.3 fL Normal 80-100 [facility] Comment on above: Performed By: #### H S TROP #### [address] Mean Corpuscular HGB Conc 32.4 g/dL Normal 32.0-35.0 [facility] Comment on above: Performed By: #### H S TROP #### [facility] [address] [place] [address] [place] Monocytes (Bld) [#/Vol] 1.4 10*3/uL High 0.0-0.8 [facility] Comment on above: Performed By: #### H S TROP #### [facility] [address] [place] [address] [place] Monocytes/100 WBC (Bld) 9.1 % Normal . [facility] Comment on above: Performed By: #### H S TROP #### [facility] [address] [place] [address] [place] Neutrophils (Bld) [#/Vol] 13.1 10*3/uL High 1.8-7.7 [facility] Comment on above: Performed By: #### H S TROP #### [facility] [address] [place] [address] [place] Neutrophils/100 WBC (Bld) 82.1 % Normal . [facility] Comment on above: Performed By: #### H S TROP #### [facility] [address] [place] [address] [place] Nucleated RBC/100 WBC (Bld) [Ratio] 0.0 % Normal 0-0.5 [facility] Comment on above: Performed By: #### H S TROP #### [facility] [address] [place] [address] [place] Platelet mean volume (Bld) [Entitic vol] 7.8 fL Normal 6.3-10.7 [facility] Comment on above: Performed By: #### H S TROP #### [facility] [address] [place] [address] [place] Platelets (Bld) [#/Vol] 193 10*3/uL Normal 150-450 [facility] Comment on above: Performed By: #### H S TROP #### [facility] [address] [place] [address] [place] RBC (Bld) [#/Vol] 4.02 10*6/uL Normal 3.60-5.00 [facility] Comment on above: Performed By: #### H S TROP #### [facility] [address] [place] [address] WBC (Bld) [#/Vol] 15.9 10*3/uL High 4.5-11.0 [facility] Comment on above: Performed By: #### H S TROP #### [facility] [address] [place] [address] ECG 12 lead ECGon 11-24-2020 ECG 12 lead ECG [facility] Main [place] [address] [place] [address] Electrocardiograph Report Signed Patient: Piedad Alatorre MR#: [id number] : 1935 Acct:[id number] Age/Sex: 85 / F ADM Date: 11/22/20 Loc: Room: [address] [place] [address] Type: DIS IN Attending Dr: Hemant Rodríguez [...] Henriquez MD 11/24/20 0758 Signed By: 11/24/20 4998 Normal [facility] Basic Metabolic Panelon 11-09 Calcium [Mass/Vol] 8.2 mg/dL Normal 8.2-10.2 [facility] Comment on above: Performed By: #### H S TROP #### [address] [id number] [place] Chloride [Moles/Vol] 101 mmol/L Normal 95-114 [facility] Comment on above: Performed By: #### H S TROP #### [facility] [address] [place] [address] [place] CO2 [Moles/Vol] 21.2 mmol/L Low 22.0-30.0 [facility] Comment on above: Performed By: #### H S TROP #### [facility] [address] [place] [address] [place] Creatinine [Mass/Vol] 1.87 mg/dL High 0.44-1.03 [facility] Comment on above: Performed By: #### H S TROP #### [place] [address] [place] Creatinine Clr Calc Pharmacy 19.90 [facility] Comment on above: Result Comment: PERF ORMED BY: [place] [address] PATHOLOGIST QUANTITATIVE RESEARCH ANALYST LANDY GONZALEZ M.D. Performed By: #### H S TROP #### [address] Estimated GFR ( Lissette 31 [facility] Comment on above: Result Comment: GFR estimated reference range: According to KDOQI guidelines, <60 ml/min/1.73m2 is sufficient to diagnose a patient with chronic kidney disease. Performed By: #### H S TROP #### [place] [address] [place] Estimated GFR (Non- Am 26 [facility] Comment on above: Performed By: #### H S TROP #### [place] [address] [place] Glucose [Mass/Vol] 111 mg/dL High 70-100 [facility] Comment on above: Result Comment: [facility]ells om Glucose Reference Range is dependent on time and content of last meal. Glucose of more than 200 mg/dL in a nonstressed, ambulatory subject supports the diagnosis of Diabetes Mellitus. ADA recommended reference range Performed By: #### H S TROP #### [place] [address] [place] Potassium [Moles/Vol] 4.4 mmol/L Normal 3.5-5.1 [facility] Comment on above: Performed By: #### H S TROP #### [address] Sodium [Moles/Vol] 136 mmol/L Normal 136-146 [facility] Comment on above: Performed By: #### H S TROP #### [address] Urea nitrogen [Mass/Vol] 36 mg/dL High 9-23 [facility] Comment on above: Performed By: #### H S TROP #### [address] Complete Blood Count Auto Di ffon 11-23-2020 Basophils (Bld) [#/Vol] 0.0 10*3/uL Normal 0.0-0.2 [facility] Comment on above: Result Comment: PERF ORMED BY: [place] [address] PATHOLOGIST QUANTITATIVE RESEARCH ANALYST LANDY GONZALEZ M.D. Performed By: #### C BC #### [address] Basophils/100 WBC (Bld) 0.2 % Normal . [facility] Comment on above: Performed By: #### C BC #### [place] [address] [place] Eosinophils (Bld) [#/Vol] 0.0 10*3/uL Normal 0.0-0.45 [facility] Comment on above: Performed By: #### C BC #### [place] [address] [place] Eosinophils/100 WBC (Bld) 0.3 % Normal . [facility] Comment on above: Performed By: #### C BC #### [address] Erythrocyte distribution width (RBC) [Ratio] 20.5 % High 11.9-15.3 [facility] Comment on above: Performed By: #### C BC #### [facility] [address] Hematocrit (Bld) [Volume fraction] 36.1 % Normal 34.0-46.4 [facility] Comment on above: Performed By: #### C BC #### [facility] [address] Hemoglobin (Bld) [Mass/Vol] 11.7 g/dL Low 11.8-15.4 [facility] Comment on above: Performed By: #### C BC #### [address] Lymphocytes (Bld) [#/Vol] 0.8 10*3/uL Low 1.00-4.8 [facility] Comment on above: Performed By: #### C BC #### [address] Lymphocytes/100 WBC (Bld) 5.0 % Normal . [facility] Comment on above: Performed By: #### C BC #### [address] MCH (RBC) [Entitic mass] 27.2 pg Normal 24.7-34.3 [facility] Comment on above: Performed By: #### C BC #### [address] MCV (RBC) [Entitic vol] 84.1 fL Normal 80-100 [facility] Comment on above: Performed By: #### C BC #### [address] Mean Corpuscular HGB Conc 32.4 g/dL Normal 32.0-35.0 [facility] Comment on above: Performed By: #### C BC #### [address] Monocytes (Bld) [#/Vol] 1.2 10*3/uL High 0.0-0.8 [facility] Comment on above: Performed By: #### C BC #### [address] Monocytes/100 WBC (Bld) 7.1 % Normal . [facility] Comment on above: Performed By: #### C BC #### [facility] [address] Neutrophils (Bld) [#/Vol] 14.5 10*3/uL High 1.8-7.7 [facility] Comment on above: Performed By: #### C BC #### [facility] [address] Neutrophils/100 WBC (Bld) 87.4 % Normal . [facility] Comment on above: Performed By: #### C BC #### [facility] [address] Nucleated RBC/100 WBC (Bld) [Ratio] 0.0 % Normal 0-0.5 [facility] Comment on above: Performed By: #### C BC #### [facility] [address] Platelet mean volume (Bld) [Entitic vol] 7.9 fL Normal 6.3-10.7 [facility] Comment on above: Performed By: #### C BC #### [facility] [address] [place] [address] [place] Platelets (Bld) [#/Vol] 204 10*3/uL Normal 150-450 [facility] Comment on above: Performed By: #### C BC #### [facility] [address] [place] [address] [place] RBC (Bld) [#/Vol] 4.29 10*6/uL Normal 3.60-5.00 [facility] Comment on above: Performed By: #### C BC #### [facility] [address] [place] [address] [place] WBC (Bld) [#/Vol] 16.6 10*3/uL High 4.5-11.0 [facility] Comment on above: Performed By: #### C BC #### [address] ECG 12 lead ECGon 11-23-2020 ECG 12 lead ECG [facility] [place] [address] Electrocardiograph Report Signed Patient: Piedad Alatorre MR#: [id number] : 1935 Acct:[id number] Age/Sex: 85 / F ADM Date: 11/22/20 Loc: Room: [address] [place] [address] Type: ADM IN Attending Dr: Hemant Rodríguez [...] MD 11/23/20 0752 Signed By: 11/23/20 1833 [facility] ECH echo transthoracicon ECH echo transthoracic [facility] Main [place] [id number] Echocardiogram Signed Patient: Piedad Alatorre MR#: [id number] : 1935 Acct:[id number] Age/Sex: 85 / F ADM Date: 11/22/20 Loc: Room: [address] [place] [address] Type: ADM IN Attending Dr: Hemant Rodríguez DO Ordering Provider: Hemant Rodríguez DO Date of Service: 11/23/20 ECH/ECH echo transthoracic: inf STEMI/VFIB Copies to: DO [...] Sergio Wiggins DO 11/23/20 0908 Signed By: 11/23/201725 Normal [facility] Glucose Poct Glucometerson 0 11-23-2020 Glucose [Mass/Vol] 126 mg/dL Normal [facility] Comment on above: Result Comment: [facility] Glucose Reference Range is dependent on time and content of last meal. Glucose of more than 200 mg/dL in a nonstressed, ambulatory subject supports the diagnosis of Diabetes Mellitus. PERFORMED BY: [place] [address] PATHOLOGIST QUANTITATIVE RESEARCH ANALYST LANDY GONZALEZ M.D. Performed By: #### G BRAYAN #### Point of Care testing , Troponin I High Sensitivityo n 11-23-2020 Troponin I High Sensitivity 15983 pg/mL Off scale high 0- [facility] Comment on above: Result Comment: PERF ORMED BY: [place] [address] PATHOLOGIST QUANTITATIVE RESEARCH ANALYST LANDY GONZALEZ M.D. Performed By: #### H S TROP #### [address] Basic Metabolic Panelon 11-09 Calcium [Mass/Vol] 8.5 mg/dL Normal 8.2-10.2 [facility] Comment on above: Performed By: #### B MP #### [address] Chloride [Moles/Vol] 103 mmol/L Normal 95-114 [facility] Comment on above: Performed By: #### B MP #### [address] CO2 [Moles/Vol] 21.0 mmol/L Low 22.0-30.0 [facility] Comment on above: Performed By: #### B MP #### [address] Creatinine [Mass/Vol] 1.47 mg/dL High 0.44-1.03 [facility] Comment on above: Performed By: #### B MP #### [facility] [address] [place] [address] [place] Creatinine Clr Calc Pharmacy 25.32 [facility] Comment on above: Result Comment: PERF ORMED BY: [place] [address] PATHOLOGIST QUANTITATIVE RESEARCH ANALYST LANDY GONZALEZ M.D. Performed By: #### B MP #### [address] Estimated GFR ( Lissette 41 [facility] Comment on above: Result Comment: GFR estimated reference range: According to KDOQI guidelines, <60 ml/min/1.73m2 is sufficient to diagnose a patient with chronic kidney disease. Performed By: #### B MP #### [address] Estimated GFR (Non- Am 34 [facility] Comment on above: Performed By: #### B MP #### [address] Glucose [Mass/Vol] 161 mg/dL High 70-100 [facility] Comment on above: Result Comment: [facility] Glucose Reference Range is dependent on time and content of last meal. Glucose of more than 200 mg/dL in a nonstressed, ambulatory subject supports the diagnosis of Diabetes Mellitus. ADA recommended reference range Performed By: #### B MP #### [address] Potassium [Moles/Vol] 4.9 mmol/L Normal 3.5-5.1 [facility] Comment on above: Performed By: #### B MP #### [address] Sodium [Moles/Vol] 136 mmol/L Normal 136-146 [facility] Comment on above: Performed By: #### B MP #### [place] [id number] [facility] Urea nitrogen [Mass/Vol] 27 mg/dL High 9-23 [facility] Comment on above: Performed By: #### B MP #### [address] ECG 12 lead ECGon 11-22-2020 ECG 12 lead ECG [facility] Main [place] [address] [place] [id number] Electrocardiograph Report Signed Patient: Piedad Alatorre MR#: [id number] : 1935 Acct:[id number] Age/Sex: 85 / F ADM Date: 11/22/20 Loc: Room: [address] [place] [address] Type: ADM IN Attending Dr: Hemant Rodríguez [...] 11/22/20 0742 Signed By: 11/22/20 1456 Normal [facility] Glucose Poct Glucometerson 0 11-22-2020 Glucose [Mass/Vol] 118 mg/dL Normal [facility] Comment on above: Result Comment: [facility] Glucose Reference Range is dependent on time and content of last meal. Glucose of more than 200 mg/dL in a nonstressed, ambulatory subject supports the diagnosis of Diabetes Mellitus. PERFORMED BY: [address] [place] [id number] PATHOLOGIST QUANTITATIVE RESEARCH ANALYST LANDY GONZALEZ M.D. Performed By: #### G LULS #### Point of Care testing , Glucose [Mass/Vol] 126 mg/dL Normal [facility] Comment on above: Result Comment: [facility] Glucose Reference Range is dependent on time and content of last meal. Glucose of more than 200 mg/dL in a nonstressed, ambulatory subject supports the diagnosis of Diabetes Mellitus. PERFORMED BY: [place] [address] PATHOLOGIST QUANTITATIVE RESEARCH ANALYST LANDY GONZALEZ M.D. Performed By: #### G LULS #### Point of Care testing , Troponin I High Sensitivityo n 11-22-2020 Troponin I High Sensitivity 36394 pg/mL Off scale high 0-15 [facility] Comment on above: Result Comment: PERF ORMED BY: [place] [address] PATHOLOGIST QUANTITATIVE RESEARCH ANALYST LANDY GONZALEZ M.D. Performed By: #### H S TROP #### [facility] [address] [place] [address] Troponin I High Sensitivity 44619 pg/mL Off scale high 0-15 [facility] Comment on above: Result Comment: PERF ORMED BY: [place] [address] PATHOLOGIST QUANTITATIVE RESEARCH ANALYST LANDY GONZALEZ M.D. Performed By: #### H S TROP #### [facility] [address] [place] [address] Troponin I High Sensitivity 52033 pg/mL Off scale high 0-15 [facility] Comment on above: Result Comment: PERF ORMED BY: [place] [address] PATHOLOGIST QUANTITATIVE RESEARCH ANALYST LANDY GONZALEZ M.D. Performed By: #### H S TROP #### [facility] [address] [place] [address] [place] Troponin I High Sensitivity 68489 pg/mL Off scale high 0-15 [facility] Comment on above: Result Comment: Resu lts called at 0905 on 11/22/20 PERFORMED BY: [place] [address] PATHOLOGIST QUANTITATIVE RESEARCH ANALYST LANDY GONZALEZ M.D. Performed By: #### H S TROP #### [facility] [address] [place], [place] [id number] [place] Vital Signs Date Time Vital Sign Value Performing Clinician Facility 08-01-2023 12:57-0400 Blood Pressure Location Deonte ROSARIO [facility] 08-01-2023 12:57-0400 Body temperature 97.88 [degF] Deonte ROSARIO [facility] 08-01-2023 12:57-0400 Diastolic blood pressure 72 mm[Hg] Deonte ROSARIO [facility] 08-01-2023 12:57-0400 Heart rate 77 /min Deonte ROSARIO [facility] 08-01-2023 12:57-0400 SaO2% (BldA) [Mass fraction] 96 % Deonte ROSARIO [facility] 08-01-2023 12:57-0400 Systolic blood pressure 114 mm[Hg] Deonte ROSARIO [facility] 06-25-2023 09:11-0500 Body temperature 97.7 [degF] [facility] 06-25-2023 09:11-0500 Diastolic blood pressure 81 mm[Hg] [facility] 06-25-2023 09:11-0500 Heart rate 91 /min [facility] 06-25-2023 09:11-0500 Respiratory rate 17 /min [facility] 06-25-2023 09:11-0500 SaO2% (BldA) [Mass fraction] 98 % [facility] 06-25-2023 09:11-0500 Systolic blood pressure 161 mm[Hg] [facility] 06-25-2023 08:21-0500 Blood Pressure Location Deonte ROSARIO [facility] 06-25-2023 08:21-0500 Body temperature 97.52 [degF] Deonte ROSARIO [facility] 06-25-2023 08:21-0500 Diastolic blood pressure 78 mm[Hg] Deonte ROSARIO [facility] 06-25-2023 08:21-0500 Heart rate 84 /min Deonte ROSARIO [facility] 06-25-2023 08:21-0500 SaO2% (BldA) [Mass fraction] 95 % Deonte ROSARIO [facility] 06-25-2023 08:21-0500 Systolic blood pressure 130 mm[Hg] Deonte ROSARIO [facility] 03-04-2023 13:11-0400 Blood Pressure Location Deonte ROSARIO [facility] 03-04-2023 13:11-0400 Diastolic blood pressure 78 mm[Hg] Deonte ROSARIO [facility] 03-04-2023 13:11-0400 Heart rate 76 /min Deonte ROSARIO [facility] 03-04-2023 13:11-0400 SaO2% (BldA) [Mass fraction] 97 % Deonte ROSARIO [facility] 03-04-2023 13:11-0400 Systolic blood pressure 142 mm[Hg] Deonte ROSARIO [facility] 02-10-2023 14:25-0400 Blood Pressure Location Bloom Sarmini [facility] 02-10-2023 14:25-0400 Diastolic blood pressure 81 mm[Hg] Bloom Sarmini [facility] 02-10-2023 14:25-0400 Heart rate 79 /min Bloom Sarmini [facility] 02-10-2023 14:25-0400 Respiratory rate 22 /min Bloom Sarmini [facility] 02-10-2023 14:25-0400 SaO2% (BldA) [Mass fraction] 97 % Bloom Sarmini [facility] 02-10-2023 14:25-0400 Systolic blood pressure 175 mm[Hg] Bloom Sarmini [facility] 02-10-2023 14:20-0400 Blood Pressure Location Bloom Sarmini [facility] 02-10-2023 14:20-0400 Diastolic blood pressure 84 mm[Hg] Bloom Sarmini [facility] 02-10-2023 14:20-0400 Heart rate 76 /min Bloom Sarmini [facility] 02-10-2023 14:20-0400 Respiratory rate 20 /min Bloom Sarmini [facility] 02-10-2023 14:20-0400 SaO2% (BldA) [Mass fraction] 96 % Bloom Sarmini [facility] 02-10-2023 14:20-0400 Systolic blood pressure 166 mm[Hg] Bloom Sarmini [facility] 02-10-2023 14:15-0400 Blood Pressure Location Bloom Sarmini [facility] 02-10-2023 14:15-0400 Diastolic blood pressure 37 mm[Hg] Bloom Sarmini [facility] 02-10-2023 14:15-0400 Heart rate 77 /min Bloom Sarmini [facility] 02-10-2023 14:15-0400 Respiratory rate 16 /min Bloom Sarmini [facility] 02-10-2023 14:15-0400 SaO2% (BldA) [Mass fraction] 97 % Bloom Sarmini [facility] 02-10-2023 14:15-0400 Systolic blood pressure 153 mm[Hg] Bloom Sarmini [facility] 02-10-2023 14:00-0400 Body temperature 97.7 [degF] Bloom Sarmini [facility] 02-10-2023 13:55-0400 Respiratory rate 16 /min Bloom Sarmini [facility] 02-10-2023 13:50-0400 Respiratory rate 16 /min Bloom Sarmini [facility] 02-10-2023 13:44-0400 Respiratory rate 10 /min Bloom Sarmini [facility] 02-10-2023 13:15-0400 Body temperature 97.52 [degF] Bloom Sarmini [facility] 02-07-2023 12:59-0400 Blood Pressure Location Elvi Missler [facility] 02-07-2023 12:59-0400 Body temperature 97.52 [degF] Elvi Missler [facility] 02-07-2023 12:59-0400 Diastolic blood pressure 70 mm[Hg] Elvi Missler [facility] 02-07-2023 12:59-0400 Heart rate 67 /min Elvi Missler [facility] 02-07-2023 12:59-0400 SaO2% (BldA) [Mass fraction] 97 % Elvi Lovelace [facility] 02-07-2023 12:59-0400 Systolic blood pressure 132 mm[Hg] Elvi Lovelace [facility] 12-10-2022 10:07-0400 Blood Pressure Location Bloom Sarmini [facility] 12-10-2022 10:07-0400 Diastolic blood pressure 76 mm[Hg] Bloom Sarmini [facility] 12-10-2022 10:07-0400 Heart rate 69 /min Bloom Sarmini [facility] 12-10-2022 10:07-0400 Respiratory rate 16 /min Bloom Sarmini [facility] 12-10-2022 10:07-0400 SaO2% (BldA) [Mass fraction] 99 % Bloom Sarmini [facility] 12-10-2022 10:07-0400 Systolic blood pressure 133 mm[Hg] Bloom Sarmini [facility] 11-22-2022 13:57-0400 Diastolic blood pressure 76 mm[Hg] Deonte ROSARIO [facility] 11-22-2022 13:57-0400 Mean blood pressure 95 mm[Hg] Deonte ROSARIO [facility] 11-22-2022 13:57-0400 Systolic blood pressure 132 mm[Hg] Deonte ROSARIO [facility] 11-22-2022 13:53-0400 Blood Pressure Location Deonte ROSARIO [facility] 11-22-2022 13:53-0400 Body temperature 97.52 [degF] Deonte ROSARIO [facility] 11-22-2022 13:53-0400 Diastolic blood pressure 76 mm[Hg] Deonte ROSARIO [facility] 11-22-2022 13:53-0400 Heart rate 60 /min Deonte ROSARIO [facility] 11-22-2022 13:53-0400 SaO2% (BldA) [Mass fraction] 98 % Deonte ROSARIO [facility] 11-22-2022 13:53-0400 Systolic blood pressure 142 mm[Hg] Deonte PAULO [facility] 07-31-2022 13:54-0400 Blood Pressure Location Deonte ROSARIO [facility] 07-31-2022 13:54-0400 Diastolic blood pressure 70 mm[Hg] Deonte ROSARIO [facility] 07-31-2022 13:54-0400 Heart rate 84 /min Deonte ROSARIO [facility] 07-31-2022 13:54-0400 Respiratory rate 18 /min Deonte ROSARIO [facility] 07-31-2022 13:54-0400 SaO2% (BldA) [Mass fraction] 98 % Deonte ROSARIO [facility] 07-31-2022 13:54-0400 Systolic blood pressure 134 mm[Hg] Deonte PAULO [facility] 07-31-2022 12:49-0400 Blood Pressure Location Deonte ROSARIO [facility] 07-31-2022 12:49-0400 Body temperature 97.7 [degF] Deonte ROSARIO [facility] 07-31-2022 12:49-0400 Diastolic blood pressure 70 mm[Hg] Deonte ROSARIO [facility] 07-31-2022 12:49-0400 Heart rate 84 /min Deonte ROSARIO [facility] 07-31-2022 12:49-0400 SaO2% (BldA) [Mass fraction] 98 % Deonte ROSARIO [facility] 07-31-2022 12:49-0400 Systolic blood pressure 134 mm[Hg] Deonte ROSARIO [facility] 06-20-2022 08:00-0500 Body temperature 98.6 [degF] Rod Bhatti MD Work Phone: [facility] 06-20-2022 08:00-0500 Diastolic blood pressure 68 mm[Hg] [facility] 06-20-2022 08:00-0500 Heart rate 92 /min Rod [facility]hatti [facility] 06-20-2022 08:00-0500 Respiratory rate 23 /min Rod Bhatti MD Work Phone: [facility] 06-20-2022 08:00-0500 SaO2% (BldA) [Mass fraction] 99 % Rod [facility]hatti [facility] 06-20-2022 08:00-0500 Systolic blood pressure 139 mm[Hg] Rod [facility]hatti [facility] 06-20-2022 06:00-0500 Body mass index (BMI) [Ratio] 23.86 kg/m2 Rod Bhatti MD Work Phone: [facility] 06-20-2022 06:00-0500 Body weight 63.05 kg Rod Bhatti MD Work Phone: [facility] 06-17-2022 08:00-0500 Body height 162.6 cm Rod Bhatti MD Work Phone: [facility] 05-16-2022 13:20-0500 Blood Pressure Location Juancho Catherine [facility] 05-16-2022 13:20-0500 Diastolic blood pressure 78 mm[Hg] Juancho Catherine [facility] 05-16-2022 13:20-0500 Heart rate 71 /min Juancho Catherine [facility] 05-16-2022 13:20-0500 Respiratory rate 18 /min Juancho Catherine [facility] 05-16-2022 13:20-0500 SaO2% (BldA) [Mass fraction] 98 % Juancho Catherine [facility] 05-16-2022 13:20-0500 Systolic blood pressure 124 mm[Hg] Juancoh Catherine [facility] 05-01-2022 09:48-0500 Blood Pressure Location Deonte ROSARIO [facility] 05-01-2022 09:48-0500 Body temperature 98.06 [degF] Deonte ROSARIO [facility] 05-01-2022 09:48-0500 Diastolic blood pressure 70 mm[Hg] Deonte ROSARIO [facility] 05-01-2022 09:48-0500 Heart rate 74 /min Deonte ROSARIO [facility] 05-01-2022 09:48-0500 SaO2% (BldA) [Mass fraction] 97 % Deonte ROSARIO [facility] 05-01-2022 09:48-0500 Systolic blood pressure 112 mm[Hg] Deonte ROSARIO [facility] 03-18-2022 10:50-0500 Diastolic blood pressure 68 mm[Hg] Dinero SALAM [facility] 03-18-2022 10:50-0500 Heart rate 91 /min Dinero SALAM [facility] 03-18-2022 10:50-0500 Respiratory rate 20 /min Dinero SALAM [facility] 03-18-2022 10:50-0500 SaO2% (BldA) [Mass fraction] 96 % Dinero SALAM [facility] 03-18-2022 10:50-0500 Systolic blood pressure 160 mm[Hg] Dinero SALAM [facility] 03-18-2022 10:35-0500 Diastolic blood pressure 68 mm[Hg] Dinero SALAM [facility] 03-18-2022 10:35-0500 Heart rate 78 /min Dinero SALAM [facility] 03-18-2022 10:35-0500 Respiratory rate 15 /min Dinero SALAM [facility] 03-18-2022 10:35-0500 SaO2% (BldA) [Mass fraction] 96 % Dinero SALAM [facility] 03-18-2022 10:35-0500 Systolic blood pressure 131 mm[Hg] Dinero SALAM [facility] 03-18-2022 10:30-0500 Diastolic blood pressure 54 mm[Hg] Dinero SALAM [facility] 03-18-2022 10:30-0500 Heart rate 78 /min Dinero SALAM [facility] 03-18-2022 10:30-0500 Respiratory rate 16 /min Dinero SALAM [facility] 03-18-2022 10:30-0500 SaO2% (BldA) [Mass fraction] 97 % Dinero SALAM [facility] 03-18-2022 10:30-0500 Systolic blood pressure 107 mm[Hg] Dinero SALAM [facility] 03-18-2022 10:23-0500 Blood Pressure Location Dinero SALAM [facility] 03-18-2022 10:23-0500 Body temperature 96.8 [degF] Dinero SALAM [facility] 03-18-2022 09:11-0500 Blood Pressure Location Dinero SALAM [facility] 03-18-2022 09:11-0500 Body temperature 98.06 [degF] Dinero SALAM [facility] 03-18-2022 09:11-0500 Respiratory rate 22 /min Dinero SALAM [facility] 01-30-2022 10:52-0400 Blood Pressure Location Dinero SALAM [facility] 01-30-2022 10:52-0400 Diastolic blood pressure 84 mm[Hg] Dinero SALAM [facility] 01-30-2022 10:52-0400 Heart rate 74 /min Dinero SALAM [facility] 01-30-2022 10:52-0400 Respiratory rate 16 /min Rosette HARE [facility] 01-30-2022 10:52-0400 Systolic blood pressure 138 mm[Hg] Rosette HARE [facility] 01-22-2022 11:40-0400 Blood Pressure Location Deonte ROSARIO [facility] 01-22-2022 11:40-0400 Body temperature 97.7 [degF] Deonte ROSARIO [facility] 01-22-2022 11:40-0400 Diastolic blood pressure 70 mm[Hg] Deotne ROSARIO [facility] 01-22-2022 11:40-0400 Heart rate 71 /min Deonte ROSARIO [facility] 01-22-2022 11:40-0400 SaO2% (BldA) [Mass fraction] 96 % Deonte PAULO [facility] 01-22-2022 11:40-0400 Systolic blood pressure 124 mm[Hg] Deonte ROSARIO [facility] 01-18-2022 13:40-0400 Diastolic blood pressure 74 mm[Hg] Juancho Catherine [facility] 01-18-2022 13:40-0400 Mean blood pressure 100 mm[Hg] Juancho Catherine [facility] 01-18-2022 13:40-0400 Systolic blood pressure 151 mm[Hg] Juancho Catherine [facility] 01-18-2022 13:30-0400 Blood Pressure Location Juancho Catherine [facility] 01-18-2022 13:30-0400 Diastolic blood pressure 74 mm[Hg] Juancho Catherine [facility] 01-18-2022 13:30-0400 Heart rate 87 /min Juancho Catherine [facility] 01-18-2022 13:30-0400 Respiratory rate 18 /min Juancho Catherine [facility] 01-18-2022 13:30-0400 SaO2% (BldA) [Mass fraction] 100 % Juancho Catherine [facility] 01-18-2022 13:30-0400 Systolic blood pressure 156 mm[Hg] Juancho Catherine [facility] 12-28-2021 10:17-0400 Blood Pressure Location Juancho Catherine [facility] 12-28-2021 10:17-0400 Diastolic blood pressure 72 mm[Hg] Juancho Catherine [facility] 12-28-2021 10:17-0400 Heart rate 82 /min Juancho Catherine [facility] 12-28-2021 10:17-0400 Respiratory rate 18 /min Juancho Catherine [facility] 12-28-2021 10:17-0400 SaO2% (BldA) [Mass fraction] 97 % Juancho Catherine [facility] 12-28-2021 10:17-0400 Systolic blood pressure 131 mm[Hg] Juancho Catherine [facility] 11-30-2021 15:10-0400 Diastolic blood pressure 80 mm[Hg] Juancho Catherine [facility] 11-30-2021 15:10-0400 Mean blood pressure 115 mm[Hg] Juancho Catherine [facility] 11-30-2021 15:10-0400 Systolic blood pressure 186 mm[Hg] Juancho Catherine [facility] 11-30-2021 15:00-0400 Blood Pressure Location Juancho Catherine [facility] 11-30-2021 15:00-0400 Diastolic blood pressure 95 mm[Hg] Juancho Catherine [facility] 11-30-2021 15:00-0400 Heart rate 96 /min Juancho Catherine [facility] 11-30-2021 15:00-0400 Respiratory rate 18 /min Juancho Catherine [facility] 11-30-2021 15:00-0400 SaO2% (BldA) [Mass fraction] 98 % Juancho Catherine [facility] 11-30-2021 15:00-0400 Systolic blood pressure 195 mm[Hg] Juancho Catherine [facility] 10-17-2021 11:00-0400 Blood Pressure Location Deonte ROSARIO [facility] 10-17-2021 11:00-0400 Body temperature 97.88 [degF] Deonte ROSARIO [facility] 10-17-2021 11:00-0400 Diastolic blood pressure 78 mm[Hg] Deonte ROSARIO [facility] 10-17-2021 11:00-0400 Heart rate 62 /min Deonte ROSARIO [facility] 10-17-2021 11:00-0400 SaO2% (BldA) [Mass fraction] 99 % Deonte ROSARIO [facility] 10-17-2021 11:00-0400 Systolic blood pressure 122 mm[Hg] Deonte ROSARIO [facility] Encounters Encounter Date Encounter Type Care Provider Facility Start: 08-03-2024 ambulatory Deonte ROSARIO Facility: [facility] Start: 09-23-2023 ambulatory Deonte Turpin ROSARIO Facility: [facility] Start: 09-03-2023 ambulatory Elvi Recinos acility:[facility] Start: 08-28-2023 ambulatory Deonte ROSARIO Facility: [id number] Start: 08-01-2023 End: 08-02-2023 ambulatory Deonte Dyana ROSARIO Facility:[facility] Start: 08-01-2023 End: 08-01-2023 Patient encounter procedure Deonte Dyana ROSARIO [facility] Start: 08-01-2023 End: 08-01-2023 Well adult monitoring check done Deonte Dyana ROSARIO [facility] Start: 07-31-2023 End: 07-31-2023 ambulatory [...] 06-25-2023 End: 06-25-2023 [facility] Start: 06-25-2023 End: 06-26-2023 ambulatory Deonte ROSARIO Facility:[facility] Start: 06-25-2023 End: 06-25-2023 Emergency department patient visit [facility] Start: 06-25-2023 End: 06-25-2023 Patient encounter procedure Deonte ROSARIO [facility] Start: 04-15-2023 End: 04-16-2023 ambulatory Brunilda Redding Facility:[facility] Start: 04-11-2023 End: 04-12-2023 ambulatory Deonte ROSARIO Facility:[facility] Start: 04-11-2023 End: 04-11-2023 Patient encounter procedure Deonte ROSARIO [facility] Start: 03-04-2023 End: 03-05-2023 ambulatory Deonte ROSARIO Facility:[facility] Start: 03-04-2023 End: 03-04-2023 Patient encounter procedure Deonte ROSARIO [facility] Start: 02-10-2023 End: 02-11-2023 ambulatory Wolf Peres Facility:[facility] Start: 02-10-2023 End: 02-10-2023 Patient encounter procedure Bloom Talal Sarmini [facility] Start: 02-07-2023 End: 02-08-2023 ambulatory Elvi Lovelace Facility:[facility] Start: 02-07-2023 End: 02-07-2023 Patient encounter procedure Elvi Lovelace [facility] Start: 01-15-2023 End: 01-16-2023 ambulatory Bloom Talal Sarmini Facility:[facility] Start: 12-10-2022 End: 12-11-2022 ambulatory Bloom Talal Sarmini Facility:[facility] Start: 12-10-2022 End: 12-10-2022 Patient encounter procedure Bloom Talal Sarmini [facility] Start: 11-22-2022 End: 11-23-2022 ambulatory Deonte ROSARIO Facility:[facility] Start: 11-22-2022 End: 11-22-2022 Patient encounter procedure Deonte ROSARIO [facility] Start: 09-20-2022 End: 09-20-[address] DEONTE ROSARIO Facility: Start: 07-31-2022 End: 07-31-2022 Patient encounter procedure Deonte ROSARIO [facility] Start: 07-31-2022 End: 07-31-2022 Well adult monitoring check done Deonte RSOARIO [facility] Start: 06-17-2022 End: 06-20-2022 Evaluation and management of inpatient JONG SCOTT CHETAN [facility] Start: 06-17-2022 End: 06-20-2022 Evaluation and management of inpatient Rod Avasthi MD Work Phone: [facility] Start: 06-16-2022 End: 06-17-[address] DEONTE ROSARIO Facility:[facility] Start: 05-16-2022 End: 05-16-2022 Patient encounter procedure Juancho Catherine [facility] Start: 05-01-2022 End: 05-01-2022 Patient encounter procedure Deonte ROSARIO [facility] Start: 03-18-2022 End: 03-18-2022 Patient encounter procedure Rosette HARE [facility] Start: 01-30-2022 End: 01-30-2022 Patient encounter procedure Rosette HARE [facility] Start: 01-22-2022 End: 01-22-2022 Patient encounter procedure Deonte ROSARIO [facility] Start: 01-18-2022 End: 01-18-2022 Patient encounter procedure Juancho Catherine [facility] Start: 01-16-2022 End: 01-16-2022 Patient encounter procedure Juancho Catherine [facility] Start: 12-28-2021 End: 12-28-2021 Patient encounter procedure Juancho Catherine [facility] Start: 11-30-2021 End: 11-30-2021 Patient encounter procedure Juancho Catherine [facility] Start: 10-17-2021 End: 10-17-2021 Patient encounter procedure Deonte ROSARIO [facility] Procedures Date Procedure Procedure [...] 11-24-2017 lumbar facet medial branch block 5 [employer] Comment on above: B/L C3-C6 100% relief 4 days after injec tion that continues Start: 09-29-2017 Radiofrequency ablation of medial branch of lumbar nerve using fluoroscopic guidance Deonte ROSARIO [employer] Comment on above: b/l L3/4, :4/5 ,L5/S1 approx 80 % relief in pain after 1 week and still continues today Start: 09-08-2017 Lumbar Facet Medial Branch Block 6 Deonte Egully Comment on above: b/l L3/4, L4/5, lL5/S1 100 % relief day 1 Start: 09-08-2017 Lumbar Facet Medial Branch Block 7 [employer] Comment on above: b/l L3/4, L4/5, lL5/S1 100 % relief day 1 Start: 06-23-2017 Injection of facet joint using fluoroscopic guidance Deonte ROSARIO [employer] Comment on above: b/l L3-S1 at least 80 % improvemnt in pa in immediate Start: 09-09-2014 Angioplasty of blood vessel Deonte ROSARIO Comment on above: right and stent placed Start: 10-10-2010 Colonoscopy Deonte ROSARIO Start: 05-12-1994 Heart Cath. Deonte ROSARIO Angioplasty of left leg artery Deonte ROSARIO Appendectomy Deonte ROSARIO Carotid endarterectomy Deonte ROSARIO Dilation and curettage of uterus Deonte ROSARIO EGD 10 Dinero Venafi Comment on above: 10/2010 EGD 9 Deonte ROSARIO Comment on above: 10/2010 Esophagogastroduodenoscopy Delmy Peres Comment on above: esophageal dilation , [...] [facility] [address] [place] [address] Alessio Amezquita DO [address] [place] [address] [facility] Start: 06-26-2023 End: 06-26-2023 Patient encounter procedure 06/26/2023 1:00 PM EST Office Visit [facility] [address] [place] [address] Eleonora Easton MD [address] [place] [address] [facility] Start: 06-25-2023 End: 06-25-2023 Patient encounter procedure 06/25/2023 1:15 PM EST Office Visit [facility] [address] [place] [address] Eleonora Easton MD [address] [place] [address] Arrived [facility] Comment on above: Arrived Start: 06-17-2022 Annual Wellness Visi t (AWV) Annual Wellness Visit (AWV) [employer] Start: 07-10-2021 COVID-19 Vaccine (5 - Booster for Pfizer series) COVID-19 Vaccine (5 - Booster for Pfizer series) [employer] Start: 10-06-1991 Screening for osteoporosis DEXA (modify frequency per FRAX score) [employer] Start: 1986 Shingles vaccine (1 of 2) Shingles vaccine (1 of 2) [employer] Start: 10-06-1955 DTaP/Tdap/Td vaccine (1 - Tdap) DTaP/Tdap/Td vaccine (1 - Tdap) [employer] Start: 1948 Depression Screen Depression Screen [employer] Start: 1946 Lipid panel Lipids [facility] [employer] Images Amniotic Membrane Graft, 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, Self-Retaining - OD - Right Eye Ophthalmology Routine Anterior corneal dystrophy of right eye Abrasion of right cornea, initial encounter Ordered: 06/25/2023 [facility] [employer] Work Phone: Comment on above: Ordered: 06/25/2023 End: 06-18-2022 OCCULT BLOOD SCREEN OCCULT BLOOD SCREEN Lab Routine One Time for 1 Occurrences starting 06/18/2022 until 06/18/2022 [employer] Phone: Comment on above: One Time for 1 Occur rences starting 06/18/2022 until 06/18/2022 Oxygen therapy [[facility] Data Set] Initiate Oxygen Therapy Protocol Respiratory Care Routine As Needed until discontinued starting 06/17/2022 [employer] Phone: Comment on above: As Needed until disc ontinued starting 06/17/2022 End: 06-17-2022 Respiratory care evaluation only Respiratory care evaluation only Respiratory Care Routine One Time for 1 Occurrences starting 06/17/2022 until 06/17/2022 [employer] Phone: Comment on above: One Time for 1 Occur rences starting 06/17/2022 until 06/17/2022 End: 06-17-2022 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 ACCOUNTANT clinical swallow evaluation CORPORATE ACCOUNTANT clinical swallow evaluation CORPORATE ACCOUNTANT Routine One Time for 1 Occurrences starting 06/17/2022 until 06/17/2022 SARAH BETH LEYVA [employer] Work Phone: Comment on above: One Time for 1 Occur rences starting 06/17/2022 until 06/17/2022 Immunizations Immunization Date Immunization Notes Care Provider Fa bola 04-11-2023 zoster vaccine recombinant Deonte ROSARIO [facility] 03-04-2023 influenza, high dose seasonal, preservative-free Deonte ROSARIO [facility] 02-28-2022 SARS-CoV-2 (COVID-19 ) [id number] Elvi Lovelace [facility] 01-22-2022 influenza, high dose seasonal, preservative-free Deonte ROSARIO [facility] 01-10-2022 influenza virus vacc ine, unspecified formulation [facility] 05-15-2021 COVID-19, mRNA, LNP- S, PF, 30 mcg/0.3 mL dose Deonte ROSARIO [facility] 03-13-2021 pneumococcal conjuga te vaccine, 13 valent Deonte ROSARIO [facility] 03-13-2021 influenza, high dose seasonal, preservative-free Deonte ROSARIO [facility] 07-12-2020 SARS-CoV-2 (COVID-19 ) mRNA BNT-162b2 vax Deonte ROSARIO [facility] Comment on above: Result Comment: Huyen sifuentes 06-22-2020 pneumococcal polysaccharide vaccine, 23 valent [employer] [facility] 06-14-2020 SARS-CoV-2 (COVID-19 ) mRNA BNT-162b2 vax [employer] [facility] Comment on above: Result Comment: Huyen shaferue 05-25-2020 canakinumab [employer] Comment on above: Result Comment: COVI D 19 PFIZER 05-25-2020 SARS-CoV-2 (COVID-19 ) mRNA BNT-162f4 vax [employer] [facility] Comment on above: Result Comment: 2021: [id number] 03-15-2020 influenza virus vacc ine, unspecified formulation [employer] [facility] 02-10-2020 influenza virus vacc ine, unspecified formulation [facility] [facility] 03-18-2019 influenza virus vacc ine, unspecified formulation [employer] [facility] 03-15-2019 influenza virus vacc ine, live, attenuated, for intranasal use [employer] [facility] [facility] 03-10[facility]2018 influenza virus vacc ine, unspecified formulation [employer] [facility] 02-16-2016 influenza virus vacc ine, unspecified formulation [employer] [facility] 02-16-2016 pneumococcal conjuga te vaccine, 13 valent Deonte Egully [facility] 05-12-2014 pneumococcal conjuga te vaccine, 13 valent Deonte ROSARIO [facility] 01-21-2011 pneumococcal polysaccharide vaccine, 23 valent Deonte ROSARIO [facility] Comment on above: Reason for Medicatio n: Other (see comment) Payers Date Payer Category Payer Unknown [id number] 2021 Medicaid [id number] 2001 Medicare MEDICARE MEDICAR E PART B [id number] 2001-[place] [address] Medicare [id number] 1959 Medicare [id number] [id number] 1936 Unknown [id number] 2.16.840.1.710118.3.579.2.175 1936 Unknown [id number] 2.16.840.1.184128.3.579.2.593 1936 Unknown [id number] 2.16.840.1.362869.3.579.2.593 1936 Unknown [id number] 2.16.840.1.303978.3.579.2.1259 1936 Unknown [id number] 2.16.840.1.656333.3.579.2.1259 1936 Unknown [id number] 2.16.840.1.975586.3.579.2.125 1936 Unknown [id number] 2.16.840.1.930661.3.579.2.1258 1936 Unknown [id number] 2.16.840.1.861907.3.579.2.1258 1936 Unknown [id number] 2.16.840.1.766781.3.579.2. 1936 Unknown [id number] 2.16.840.1.595982.3.579.2. 1936 Unknown [id number] 2.16.840.1.346599.3.579.2. 1936 Unknown [id number] 2.16.840.1.040856.3.579.2 1936 Unknown [id number] 2.16.840.1.188967.3.579.2 1936 Unknown [id number] 2.16.840.1.117406.3.579.2 1936 Unknown [id number] 2.16.840.1.706616.3.579.2 1936 Unknown [id number] 2.16.840.1.178637.3.579.2 1936 Unknown [id number] 2.16.840.1.217011.3.579.2 1936 Unknown [id number] 2.16.840.1.426907.3.579.2 1936 Unknown [id number] 2.16.840.1.339621.3.579.2 1936 Unknown [id number] 2.16.840.1.406930.3.579.2 1936 Unknown [id number] 2.16.840.1.023705.3.579.2 1936 Unknown [id number] 2.16.840.1.676990.3.579.2.727 Social History Date Type Detail Facility Start: 07-03-2021 End: 08-01-2023 Tobacco smoking status Never smoked tobacco (finding) [facility] Comment on above: denies use Tobacco smoking status Never [facility] Comment on above: denies use Sex Assigned At Female [facility] Tobacco smoking status NHIS Tobacco smoking consumption unknown [facility] Start: 1935 Sex Assigned At Not on file B ON [facility] Work Phone: Goals Date Patient Goal Desired Activity /State 05-17-2019 Functional Status Date Assessment Result Facility 08-01-2023 Functional Status N/A [facility] 06-25-2023 Functional Status N/A [facility] 03-04-2023 Functional Status N/A [facility] 02-10-2023 Functional Status N/A [facility] 02-07-2023 Functional Status N/A [facility] 12-10-2022 Functional Status N/A [facility] 11-22-2022 Functional Status N/A [facility] 07-31-2022 Functional Status N/A [facility] 07-31-2022 Functional Status [facility] 05-16-2022 Functional Status N/A [facility] 05-01-2022 Functional Status N/A [facility] 03-18-2022 Functional Status N/A [facility] 01-30-2022 Functional Status N/A [facility] 01-22-2022 Functional Status N/A [facility] 01-18-2022 Functional Status N/A [facility] 12-28-2021 Functional Status N/A [facility] 11-30-2021 Functional Status N/A [facility] Clinical Notes 01-05-2020 to 08-01-2023 Eleonora Easton MD - 06/26/2023 8:45 AM Tai Easton MD - 06/25/2023 1:15 PM ALISONTeaurasa Carrion - 06/19/2022 5:15 PM Jennifer Villar RN - 06/19/2022 12:09 PM ESTDischarge Instructions Note Date & Type Note Facility [...] Follow these instructions at home: Medicines Take kmul-zgs-khlrttv and prescription medicines only as told by [...] is important. Where to find more information [employer] Association of Kidney Patients: www.aakp.org National Kidney Foundation: www.kidney.org Scottish Kidney Fund: www.akfinc.org Life Options: www.lifeoptions.org Kidney [...] provider. Document Revised: 08/02/2020 Document Reviewed: 08/02/2020 [employer] Patient Education 2022 [employer]. 08/01/2023 14:31:28 Hyperglycemia Hyperglycemia Hyperglycemia occurs when [...] these instructions at home: General instructions Take dwwj-xxc-leiwbys and prescription medicines only as told by [...] alert jewelry. Where to find more information Scottish Diabetes Association: www.diabetes.org Contact a health care [...] provider. Document Revised: 02/09/2021 Document Reviewed: 02/09/2021 [employer] Patient Education 2022 [employer]. 08/01/2023 14:31:24 BMI for Adults BMI for [...] numbers. This can be done either in Somali (U.S.) or metric measurements. Note that charts and online BMI calculators are available to help you find your BMI quickly and easily without having to do these calculations yourself. To calculate your BMI in Somali (U.S.) measurements: 1.Measure your weight in pounds [...] Centers for Disease Control and Prevention: www.cdc.gov Scottish Heart Association: www.heart.org National Heart, Lung, and Blood [place]: www.nhlbi.nih.gov Summary Body mass index (BMI) is a number that is calculated from a person's weight and height. BMI may help estimate how much of a person's weight is composed of fat. BMI can help identify those who may be at higher risk for certain medical problems. BMI can be measured using Somali measurements or metric measurements. BMI charts are used to identify whether you are underweight, normal weight, overweight, or obese. This information is not intended to replace advice given to you by your health care provider. Make sure you discuss any questions you have with your health care provider. Document Revised: 01/19/2020 Document Reviewed: 11/26/2019 [employer] Patient Education 2022 [employer]. [facility] 06-26-2023 History of Present illness Narrative Assessment/Plan need to treat the spasm with botox and tarsorrhaphy as well Assessment/Plan documented in this encounter [facility] 06-25-2023 Hospital Discharge instructions Patient Education 06/25/2023 [...] This condition may be caused by: A hinging machine operator the eye. A gritty or irritating substance [...] in diseases and conditions of the eye (master great lakes). This condition may be diagnosed based on your medical history, symptoms, and an eye exam. Before the eye exam, numbing drops may be put into your eye. You may also have dye put in your eye with a dropper or a small paper strip. The dye makes the abrasion easy to see when your master great lakes examines your eye with a light. Your master great lakes may look at your eye through an [...] if you start to feel better. Take qaxv-qwb-tqhwxcu and prescription medicines only as told by your health care provider. Ask your health care provider if the medicine prescribed to you: ?Requires you to avoid driving or using heavy machinery. ?Can cause constipation. You may need to take these actions to prevent or treat constipation: ?Drink enough fluid to keep your urine pale yellow. ?Take alaq-mkx-gslowlr or prescription medicines. ?Eat foods that are [...] wearing an eye patch. Your ability to a class lineman distances will be impaired. ?Follow instructions from [...] machinery while wearing it. Your ability to a class lineman distances will be impaired. Let your health care provider know if your symptoms continue for more than 2 days. This information is not intended to replace advice given to you by your health care provider. Make sure you discuss any questions you have with your health care provider. Document Revised: 09/03/2019 Document Reviewed: 09/03/2019 [employer] Patient Education 2022 [employer]. Follow Up Care 06/25/2023 09:09:09 With:Eleonora Easton Address: [facility] [place] [address] [address]- [facility] (1) When:06/28/2023 12:04:46 Comments:Immediately go to Dr. Easton's office at 1 PM for your appointment. With:Deonte ROSARIO Address: [facility] [address], [address] [place] [phone] Business (1) When:Within 3 Day(s) [facility] 06-25-2023 History of Present illness Narrative Assessment/Plan needs amniotic membrane Placed right, ??stability because of spasm Rv tomorrow for botox documented in this encounter [facility] 06-25-2023 Hospital Discharge instructions Patient Education 06/25/2023 [...] for stress management tips. General instructions Take bcxi-zxd-bcyhaif and prescription medicines only as told by your health care provider. Keep all follow-up visits as told by your health care provider. This is important. Where to find more information Scottish Heart Association: www.heart.org Get help right away [...] provider. Document Revised: 07/25/2022 Document Reviewed: 11/08/2019 [employer] Patient Education 2022 [employer]. Follow Up Care 03/04/2023 13:38:04 With:PAULO HINOJOSA, Deonte Turpin, [facility] Address: [facility] [address], [place] [address]- When:Within 1 Week(s) With:PAULO HINOJOSA, Deonte Turpin, MED Address: [facility] [address] [place] [address]- When: Unknown Comments:at regular appt but sooner if needed. [facility] 03-04-2023 Hospital Discharge instructions Patient Education 03/04/2023 13:26:32 Hypertension, Adult, Hsgg-me-Jzcx Hypertension, Adult Hypertension is another name for [...] doctor. Keep all follow-up visits. Medicines Take fakq-jkt-ufwgnkc and prescription medicines only as told by [...] provider. Document Revised: 02/14/2022 Document Reviewed: 02/14/2022 [employer] Patient Education 2022 [employer]. Follow Up Care 11/22/2022 14:18:32 With:PAULO HINOJOSA, Deonte Turpin, [facility] Address: [facility] [address], [place] [address]- When:Within 3 Month(s) [facility] 02-10-2023 Hospital Discharge instructions [...] including vitamins, herbs, eye drops, creams, and mtuh-zfb-ngutrns medicines. Any problems you or family members [...] provider tells you to take them. ?Taking texj-vdr-uujoneb medicines, vitamins, herbs, and supplements. Follow instructions [...] home. Follow these instructions at home: Take cxcs-kyd-pdjjvzn and prescription medicines only as told by [...] provider. Document Revised: 09/13/2020 Document Reviewed: 09/13/2020 [employer] Patient Education 2022 [employer] 02/10/2023 14:15:49 Upper Endoscopy, Adult, Care After [...] what activities are safe for you. Take frpn-cig-ixhwxpf and prescription medicines only as told by [...] provider. Document Revised: 03/03/2020 Document Reviewed: 09/28/2018 [employer] Patient Education 2022 [employer]. Follow Up Care 01/17/2023 09:40:15 With:Wolf Peres Address: [address] [place] [address], [address] [phone] Business (1) When: Unknown Comments:Call for any problems. [facility] 02-07-2023 Hospital Discharge instructions Patient Education [...] this treated? Treatment for neuropathic pain may tar heat exchanger cleaner time. You may need to try different treatment options or a combination of treatments. Some options include: Treating the underlying cause of the neuropathy, such as diabetes, kidney disease, or vitamin deficiencies. Stopping medicines that can cause neuropathy, such as chemotherapy. Medicine to relieve pain. Medicines may include: ?Prescription or fmlv-drf-ptbozko pain medicine. ?Anti-seizure medicine. ?Antidepressant medicines. ?Pain-relieving [...] Follow these instructions at home: Medicines Take mxjo-hnk-aliassp and prescription medicines only as told by your health care provider. Ask your health care provider if the medicine prescribed to you: ?Requires you to avoid driving or using machinery. ?Can cause constipation. You may need to take these actions to prevent or treat constipation: ?Drink enough fluid to keep your urine pale yellow. ?Take kevi-jcz-fogrlse or prescription medicines. ?Eat foods that are [...] the National Suicide Prevention Lifeline at or 897. This is open 24 hours a day. Text the Crisis Text Line at 674803. Summary Neuropathic pain is pain caused by [...] provider. Document Revised: 12/24/2021 Document Reviewed: 12/24/2021 [employer] Patient Education 2022 [employer]. 02/07/2023 13:23:45 Shingles Shingles Shingles, which is [...] a specialist, such as an eye doctor (master [place]) or an ear, nose, and throat (ENT) doctor (auto repair technician) to help you avoid eye problems, chronic pain, or disability. Follow these instructions at home: Medicines Take duwk-hqf-zpkxceh and prescription medicines only as told by [...] your health care provider. This is an wfzv-mkt-lwallip lotion that helps to relieve itchiness. Blister and rash care Keep your rash covered with a loose bandage (dressing). Wear loose-fitting clothing to help ease the pain of material rubbing against the rash. Wash your hands with soap and water for at least 20 seconds before and after you change your dressing. If soap and water are not available, use hand principal secretary. Change your dressing as told by your [...] and water are not available, use hand principal secretary. Doing this lowers your chance of getting [...] provider. Document Revised: 04/23/2021 Document Reviewed: 04/23/2021 [employer] Patient Education 2022 [employer]. Follow Up Care 01/29/2023 10:14:04 With:Elvi Millan Address: [address] [place] [address], [address] [place] [phone]- When: only if needed [facility] 11-22-2022 Hospital Discharge instructions Patient Education 11/22/2022 14:06:05 Hypertension, Adult, Dbft-uz-Uxdb Hypertension, Adult Hypertension is another name for [...] doctor. Keep all follow-up visits. Medicines Take qzfb-kvb-diorzaf and prescription medicines only as told by [...] provider. Document Revised: 02/14/2022 Document Reviewed: 02/14/2022 [employer] Patient Education 2022 [employer]. Follow Up Care 07/31/2022 14:36:54 With:PAULO HINOJOSA, Deonte Turpin, [facility] Address: [facility] [address], [place] [address]- When:Within 3 Month(s) [facility] 07-31-2022 Hospital Discharge instructions [...] Being older than age 40. Being of -[place] descent. Having high blood pressure or diabetes. [...] diagnosed through an eye exam by an eyeglass lens grinder (master great lakes). This specialist will: Perform a test to [...] medicine. Follow these instructions at home: Take xors-tol-voszzrv and prescription medicines only as told by [...] 04/28/2006 Document Revised: 04/10/2018 Document Reviewed: 12/25/2017 [employer] Patient Education 2020 [employer]. 07/31/2022 15:14:02 BMI for Adults BMI for [...] height. This can be done either in Somali (U.S.) or metric measurements. Note that charts are available to help you find your BMI quickly and easily without having to do these calculations yourself. To calculate your BMI in Somali ([place].S.) measurements, your health care provider will: [...] medical problems. BMI can be measured using Somali measurements or metric measurements. To interpret your [...] 01/07/2005 Document Revised: 04/10/2018 Document Reviewed: 03/11/2018 [employer] Patient Education 2020 [employer]. 07/31/2022 14:32:07 Hypertension, Adult, Okhs-vb-Nlsy Hypertension, Adult Hypertension is another name for [...] your doctor. This is important. Medicines Take sazy-xrh-fmbtrlq and prescription medicines only as told by [...] 10/14/2008 Document Revised: 01/06/2019 Document Reviewed: 01/06/2019 [employer] Patient Education 2020 [employer]. Follow Up Care 05/01/2022 10:10:07 With:PAULO HINOJOSA, Deonte Turpin, ROCKY Address: [facility] [address], [place] [address]- When:Within 3 Month(s) [facility] 06-19-2022 History of Present illness Narrative CLINICAL PHARMACY NOTE: MEDS TO BEDS Total # of Prescriptions Filled: 2 The following medications were delivered to the patient: Carvedilol prednisone Additional Documentation: Patient back to room from barium swallow test. Patient to barium swallow test with transport. Physical Therapy Facility/Department: [facility] Daily treatment note Name: Piedad [...] UE assist, no LOB x5 AM-PAC Score AM-PAC Inpatient Mobility Raw Score : 20 (06/19/22926) AM-PAC Inpatient T-Scale Score : 47.67 (06/19/22926) Mobility [...] Patient's name: Piedad Alatorre Patient's account/billing number: [id number] Patient's Date of : 1935 Age: 86 [...] in muscle strength numbness/tingling HPI: Referred from [facility] ER for the concern of angioedema. Patient was in her normal state and suddenly started noticing tongue swelling, throat swelling with difficulty swallowing and change in her voice at 5 PM yesterday. Denies skin rash or difficulty breathing. [facility] in a [facility], nurse recommended to visit the emergency department. She was seen in the [facility] and was given IV antihistamine Solu-Medrol [...] Date 06/19/22 0000 - 06/19/22 2359 Shift [id number] 9720-5111 0877-0020 24 Hour Total INTAKE I.V.(mL/kg) 1(0) 1(0) [...] DATA: Complete Blood Count: Recent Labs 06/17/22 0806/18/2245306/19/22 0254 WBC 12.8* 23.3* 21.5* HGB 10.2* [...] PTT Basal Metabolic Profile: Recent Labs 06/17/22 0806/18/22453 NA 140 143 K 4.2 4.5 BUN 22 27* CREATININE 1.24* 1.51* CL 107 112* CO2 16* 20 Magnesium: No results found for: MG Phosphorus: No results found for: PHOS S. Calcium: Recent Labs 06/18/22 045 CALCIUM 9.2 LFTS Recent Labs 06/17/22810 ALKPHOS 148* ALT 10 AST 16 BILITOT 0.4 LABALBU 4.3 AMYLASE/LIPASE/AMMONIA No results for input(s): AMYLASE, LIPASE, AMMONIA in the last 72 hours. Last 3 Blood Glucose: Recent Labs 06/17/22 0811 06/18/22453 GLUCOSE 165* 153* HgBA1c: No results found [...] enzyme inhibitor (MORIS-I) Coronary artery disease involving [place] coronary artery of [place] heart Primary hypertension Resolved Problems: * No [...] MD, Department of Internal Medicine/ Critical care [facility]) 06/19/2022, 7:51 AM Attending Physician Statement I [...] this chart was generated using voice recognition [employer] dictation software. Although every effort was made to ensure the accuracy of this automated e commerce marketing analyst, some errors in e commerce marketing analyst may have occurred. Adrian Riley MD 06/19/2022 3:22 PM Physical Therapy Facility/Department: [facility]- [facility] Physical Therapy Initial Assessment Name: Piedad Alatorre : 1935 Date of Service: 06/18/2022 Obtained from medical chart: Patient was in her normal state and suddenly started noticing tongue swelling, throat swelling with difficulty swallowing and change in her voice at 5 PM yesterday. Denies skin rash or difficulty breathing. She lives in a [facility], nurse recommended to visit the emergency department. 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 Leisure & Hobbies: listening to music, playing bingo, going to shows Vision/Hearing Vision Vision: Impaired ( I can't [...] Oleksandr Cha PT Speech Language Pathology Facility/Department: [facility] CLINICAL BEDSIDE SWALLOW EVALUATION NAME: Piedad Alatorre : 1935 ADMISSION DATE: 06/17/2022 ADMITTING DIAGNOSIS: has Angioedema of tongue; 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 Date of Eval: 06/18/2022 Evaluating Therapist: MONTSE STAFFORD Current Diet level: Current Diet : NPO Primary Complaint Patient was in her normal state and suddenly started noticing tongue swelling, throat swelling with difficulty swallowing and change in her voice at 5 PM yesterday. Denies skin rash or difficulty breathing. She lives in a [facility], nurse recommended to visit the emergency department. She was seen in the [facility] and was given IV antihistamine Solu-Medrol [...] recommendations reported to RN. Treatment Plan Requires CORPORATE ACCOUNTANT Intervention: Yes D/C Recommendations: Ongoing speech therapy [...] 1014 Total Time: 10 MARBELLA HEREDIA M.A. CCC-CORPORATE ACCOUNTANT 06/18/2022 11:39 AM Critical Care Team - Daily Progress Note Date and time: 06/18/2022 8:08 AM Patient's name: Piedad Alatorre Patient's account/billing number: [id number] Patient's Date of : 1935 Age: 86 [...] in muscle strength numbness/tingling HPI: Referred from [facility] ER for the concern of angioedema. Patient was in her normal state and suddenly started noticing tongue swelling, throat swelling with difficulty swallowing and change in her voice at 5 PM yesterday. Denies skin rash or difficulty breathing. She lives in a [facility], nurse recommended to visit the emergency department. She was seen in the [facility] and was given IV antihistamine Solu-Medrol [...] Complete Blood Count: Recent Labs 06/17/22 0811 06/18/22453 WBC 12.8* 23.3* HGB 10.2* 9.4* MCV 95.6 92.4 PLT See Reflexed IPF Result See Reflexed IPF Result RBC 3.41* 3.15* HCT 32.6* 29.1* MCH 29.9 29.8 MCHC 31.3 32.3 RDW 14.2 14.6* PT/INR: No results found for: PROTIME, INR PTT: No results found for: APTT, PTT Basal Metabolic Profile: Recent Labs 06/17/22 0811 06/18/22453 NA 140 143 K 4.2 4.5 BUN 22 27* CREATININE 1.24* 1.51* CL 107 112* CO2 16* 20 Magnesium: No results found for: MG Phosphorus: No results found for: PHOS S. Calcium: Recent Labs 06/18/22453 CALCIUM 9.2 LFTS Recent Labs 06/17/22810 ALKPHOS 148* ALT 10 AST 16 BILITOT 0.4 LABALBU 4.3 AMYLASE/LIPASE/AMMONIA No results for input(s): AMYLASE, LIPASE, AMMONIA in the last 72 hours. Last 3 Blood Glucose: Recent Labs 06/17/22 0811 06/18/22453 GLUCOSE 165* 153* HgBA1c: No results found [...] enzyme inhibitor (MORIS-I) Coronary artery disease involving [place] coronary artery of [place] heart Primary hypertension Resolved Problems: * No [...] Department of Internal Medicine/ Critical care [facility]) 06/18/2022, 8:08 AM Attending Physician Statement [...] to ensure the accuracy of this automated e commerce marketing analyst, some errors in e commerce marketing analyst may have occurred. Adrian Riley MD 06/18/2022 [...] any concerns. Thank you. Paulina Todd PharmD [facility] 06/17/2022 3:07 PM documented in this encounter [facility] [employer] Phone: 06-19-2022 Hospital Discharge instructions Abebe Coker [...] to emergency department. documented in this encounter [facility] [employer] Phone: 05-01-2022 Hospital Discharge instructions Patient Education 05/01/2022 10:05:57 Hypertension, Adult, Jejg-bf-Dmlk Hypertension, Adult Hypertension is another name for [...] your doctor. This is important. Medicines Take ktsb-dog-anyrvjh and prescription medicines only as told by [...] 10/14/2008 Document Revised: 01/06/2019 Document Reviewed: 01/06/2019 [employer] Patient Education 2020 [employer]. Follow Up Care 01/22/2022 12:28:23 With:PAULO HINOJOSA, Deonte Turpin, MED Address: [facility] [address] [place] [address], [address] [place] [address]- When:Within 3 Month(s) [facility] 03-18-2022 Hospital Discharge instructions Patient Education 03/18/2022 10:33:09 Colonoscopy, Care After Surgery Ananya (CUSTOM) Colonoscopy Care After Surgery Please read [...] reduce GERD symptoms. Medicines. These may include: ?Rxaq-qrj-avdifhf antacids. ?Medicines that make your stomach empty [...] may include: ?Fatty foods, like fried foods. ?Addison fruits, like oranges or lemon. ?Other foods [...] Do not drink alcohol. General instructions Take whqw-ngn-fbjigho and prescription medicines only as told by [...] 07/18/2004 Document Revised: 04/10/2018 Document Reviewed: 12/01/2017 [employer] Patient Education 2020 [employer]. Follow Up Care 01/30/2022 11:34:55 With:Rosette HARE Address: [address] [place] [address] Business (1) When: Unknown Comments:OFFICE WILL CALL DATE AND TIME OF FOLLOW-UP APPT. [facility] 01-22-2022 Hospital Discharge instructions Patient Education 01/22/2022 12:06:50 Hypertension, Adult, Twqv-wa-Cwhb Hypertension, Adult Hypertension is another name for [...] your doctor. This is important. Medicines Take xcsg-lvm-knigrkb and prescription medicines only as told by [...] 10/14/2008 Document Revised: 01/06/2019 Document Reviewed: 01/06/2019 [employer] Patient Education 2020 [employer]. Follow Up Care 10/17/2021 11:58:35 With:PAULO HINOJOSA, Deonte Turpin, MED Address: [facility] [address], [place] [address]- When:Within 3 Month(s) [facility] 10-17-2021 Hospital Discharge instructions Patient Education 10/17/2021 11:53:49 Hypertension, Adult, Hazm-xh-Gdyl Hypertension, Adult Hypertension is another name for [...] your doctor. This is important. Medicines Take gmof-ebs-fkcwmrc and prescription medicines only as told by [...] 10/14/2008 Document Revised: 01/06/2019 Document Reviewed: 01/06/2019 [employer] Patient Education 2020 [employer]. Follow Up Care 07/03/2021 16:48:31 With:Deonte ROSARIO MD, [facility] Address: [address] [place] [address]- When:Within 3 Month(s) [facility] 01-05-2020 Evaluation + Plan note Future Appointments Appointment Date:01/01/2022 09:00:00 AM Scheduled Provider: [facility] App[facility] Type:CV Echo (FT) Appointment Date:01/04/2022 02:00:00 PM Scheduled Provider:Juancho Catherine MD [facility] App[facility]ment Type:Cardiology Follow Up (FT) Appointment Date:01/22/2022 10:00:00 AM Scheduled Provider:Deonte ROSARIO MD Location:[facility] Appointment Type:FM Open Appointment Date:01/30/2022 10:30:00 AM Scheduled Provider:Rosette HARE MD Location:[facility] Appointment Type:BADH Follow Up Future Scheduled IevukOlvU6a 11/21CBC w/ Auto Diff 03/13/21Comprehensive Metabolic Panel 03/13/21Lipid Panel 03/13/21Echo Transthoracic Complete 01/01/22 [facility] Evaluation + Plan note Future Appointments Appointment Date:01/22/2022 10:00:00 AM Scheduled Provider:Deonte ROSARIO MD Location:[facility] Appointment Type:FM Open Future Scheduled LbufgAyeF6g 21CBC w/ Auto Diff 03/13/21Comprehensive Metabolic Panel 03/13/21Lipid Panel 03/13/21 [facility] Evaluation + Plan note Future Appointments Appointment Date:12/14/2021 10:30:00 AM Scheduled Provider: [facility] App[facility]ment Type:Cardiology Nurse Visit (FT) Appointment Date:01/04/2022 02:00:00 PM Scheduled Provider:Juancho Catherine MD [facility] Appointment Type:Cardiology Follow Up (FT) Appointment Date:01/22/2022 10:00:00 AM Scheduled Provider:Deonte ROSARIO MD Location:[facility] Appointment Type:FM Open Appointment Date:01/30/2022 10:30:00 AM Scheduled Provider:Rosette HARE MD Location:[facility] Appointment Type:BADH Follow Up Future Scheduled EndlkNrlK8s 03/13/CBC w/ Auto Diff 03/13/21Comprehensive Metabolic Panel 03/13/21Lipid Panel 03/13/21Echo Transthoracic Complete 11/30/21 [facility] Evaluation + Plan note Future Appointments Appointment Date:01/18/2022 01:30:00 PM Scheduled Provider:Juancho Catherine MD [facility] App[facility]ment Type:Cardiology Follow Up (FT) Appointment Date:01/22/2022 10:00:00 AM Scheduled Provider:Deonte ROSARIO MD Location:[facility] Appointment Type:FM Open Appointment Date:01/30/2022 10:30:00 AM Scheduled Provider:Rosette HARE MD Location:[facility] Appointment Type:BAD Follow Up Future Scheduled YqcebXpjE7s 03/13/21CBC w/ Auto Diff 03/13/21Comprehensive Metabolic Panel 03/13/21Lipid Panel 03/13/21 [facility] Evaluation + Plan note Future Appointments Appointment Date:01/22/2022 10:00:00 AM Scheduled Provider:Denote ROSARIO MD Location:[facility] Appointment Type:FM Open Appointment Date:01/30/2022 10:30:00 AM Scheduled Provider:Rosette HARE MD Location:[facility] Appointment Type:BADH Follow Up Appointment Date:05/16/2022 01:15:00 PM Scheduled Provider:Juancho Catherine MD [facility] App[facility]ment Type:Cardiology Follow Up (FT) Future Scheduled AoersFbsG0q 03/13/21CBC w/ Auto Diff 03/13/21Comprehensive Metabolic Panel 03/13/21Lipid Panel 03/13/21Lipid Panel 01/18/22 [facility] Evaluation + Plan note Future Appointments Appointment Date:01/30/2022 10:30:00 AM Scheduled Provider:Rosette HARE MD Location:[facility] Appointment Type:BAD Follow Up Appointment Date:05/01/2022 10:00:00 AM Scheduled Provider:Deonte ROSARIO MD Location:[facility] Appointment Type:FM Open Appointment Date:05/16/2022 01:15:00 PM Scheduled Provider:Juancho Catherine MD [facility] Type:Cardiology Follow Up (FT) Future Scheduled BmmqcCmrS3n 01/22/2242BhmH5n 03/13/21CBC w/ Auto Diff 01/22/22CBC w/ Auto Diff 03/13/21Comprehensive Metabolic Panel 01/22/22Comprehensive Metabolic Panel 03/13/Lipid Panel 01/22/22Lipid Panel 03/13/Lipid Panel 01/18/22 [facility] Evaluation + Plan note Future Appointments Appointment Date:02/18/2022 02:30:00 PM Scheduled Provider: Location:[facility] Appointment Type:Surgery FT Appointment Date:05/01/2022 10:00:00 AM Scheduled Provider:Deonte ROSARIO MD Location:[facility] Appointment Type: Open Appointment Date:05/16/2022 01:15:00 PM Scheduled Provider:Juancho Catherine MD [facility] Type:Cardiology Follow Up (FT) Future Scheduled LccwcHgiB0d 01/22/2273DpqT2w 03/13/21IgA, Quant. 01/30/22t-Transglutaminase IgA 01/30/22CBC w/ Auto Diff 01/22/22CBC w/ Auto Diff 03/13/21Comprehensive Metabolic Panel 01/22/22Comprehensive Metabolic Panel 03/13/21GGT 01/30/22Lipid Panel 01/22/22Lipid Panel 03/13/21Lipid Panel 01/18/22Reticulocyte Count 01/30/22Thyroid Stimulating Hormone 01/30/22 [facility] Evaluation + Plan note Future Appointments Appointment Date:05/01/2022 10:00:00 AM Scheduled Provider:Deonte ROSARIO MD Location:[facility] Appointment Type: Open Appointment Date:05/16/2022 01:15:00 PM Scheduled Provider:Juancho Catherine MD [facility] Type:Cardiology Follow Up (FT) Future Scheduled NazjkAeaD3p 01/22/22IgA, Quant. 01/30/22t-Transglutaminase IgA 01/30/22CBC w/ Auto Diff 01/22/22Comprehensive Metabolic Panel 01/22/22GGT 01/30/22Lipid Panel 01/22/22Lipid Panel 01/18/22Reticulocyte Count 01/30/22Thyroid Stimulating Hormone 01/30/22 [facility] Evaluation + Plan note Future Appointments Appointment Date:05/16/2022 01:15:00 PM Scheduled Provider:Juancho Catehrine MD [facility] App[facility]ment Type:Cardiology Follow Up (FT) Appointment Date:07/31/2022 01:00:00 PM Scheduled Provider: Location:[facility] Appointment Type: Medicare Wellness Initial Appointment Date:07/31/2022 02:00:00 PM Scheduled Provider:Deonte ROSARIO MD Location:[facility] Appointment Type: Open Future Scheduled QjpttQenA8z 01/22/22IgA, Quant. 01/30/22t-Transglutaminase IgA 01/30/22CBC w/ Auto Diff 01/22/22Comprehensive Metabolic Panel 01/22/22GGT 01/30/22Lipid Panel 01/22/22Lipid Panel 01/18/22Reticulocyte Count 01/30/22Thyroid Stimulating Hormone 01/30/22 [facility] Evaluation + Plan note Future Appointments Appointment Date:07/31/2022 01:00:00 PM Scheduled Provider: Location:[facility] Appointment Type: Medicare Wellness Initial Appointment Date:07/31/2022 02:00:00 PM Scheduled Provider:Deonte ROSARIO MD Location:[facility] Appointment Type: Open Future Scheduled UrynsEeuI0c 01/22/22IgA, Quant. 01/30/22t-Transglutaminase IgA 01/30/22CBC w/ Auto Diff 01/22/22Comprehensive Metabolic Panel 01/22/22GGT 01/30/22Lipid Panel 01/22/22Lipid Panel /10/01Lipid Panel 01/18/22Reticulocyte Count 01/30/22Thyroid Stimulating Hormone 01/30/22NM Myocardial Spect Rest/Stress 1 Day 05/16/22 [facility] Evaluation + Plan note Future Appointments Appointment Date:11/22/2022 01:40:00 PM Scheduled Provider:Deonte ROSARIO MD Location:[facility] Appointment Type: Open Appointment Date:08/01/2023 01:00:00 PM Scheduled Provider: Location:[facility] Appointment Type: Medicare Wellness Subsequent Future Scheduled MaezpHgeL8s 01/22/22IgA, Quant. 01/30/22t-Transglutaminase IgA 01/30/22CBC w/ Auto Diff 01/22/22Comprehensive Metabolic Panel 01/22/22GGT 22Lipid Panel 22Lipid Panel 1//Lipid Panel 01/18/22Reticulocyte Count 01/30/22Thyroid Stimulating Hormone 01/30/22NM Myocardial Spect Rest/Stress 1 Day 07/08/22 [facility] Evaluation + Plan note Future Appointments Appointment Date:03/04/2023 01:20:00 PM Scheduled Provider:Deonte ROSARIO MD Location:[facility] Appointment Type:FM Open Appointment Date:08/01/2023 01:00:00 PM Scheduled Provider: Location:[facility] Appointment Type:FM Medicare Wellness Subsequent Future Scheduled LcfctGvqN4n 01/22/22IgA, Quant. 01/30/22t-Transglutaminase IgA 01/30/22CBC w/ Auto Diff 01/22/22Comprehensive Metabolic Panel 01/22/22GGT 01/30/22Lipid Panel 01/22/22Lipid Panel 05/16/22Lipid Panel 01/18/22Reticulocyte Count 01/30/22Thyroid Stimulating Hormone 01/30/22NM Myocardial Spect Rest/Stress 1 Day 07/08/22 [facility] Evaluation + Plan note Future Appointments Appointment Date:02/10/2023 01:30:00 PM Scheduled Provider: Location:[facility] Appointment Type:Surgery FT Appointment Date:03/04/2023 01:20:00 PM Scheduled Provider:Deonte ROSARIO MD Location:[facility] Appointment Type: Open Appointment Date:04/11/2023 09:40:00 AM Scheduled Provider: Location:[facility] Appointment Type:FM Nurse Visit Appointment Date:08/01/2023 01:00:00 PM Scheduled Provider: Location:[facility] Appointment Type:FM Medicare Wellness Subsequent Future Scheduled TestsLipid Panel 05/16/22NM Myocardial Spect Rest/Stress 1 Day 07/08/22 [facility] Evaluation + Plan note Future Appointments Appointment Date:03/04/2023 01:20:00 PM Scheduled Provider:Deonte ROSARIO MD Location:[facility] Appointment Type: Open Appointment Date:04/11/2023 09:40:00 AM Scheduled Provider: Location:[facility] Appointment Type: Nurse Visit Appointment Date:08/01/2023 01:00:00 PM Scheduled Provider: Location:[facility] Appointment Type: Medicare Wellness Subsequent Future Scheduled TestsCBC w/ Auto Diff 02/08/23Comprehensive Metabolic Panel 02/08/23Ferritin 02/08/23Folate Level 02/08/23Iron Level 02/08/23Iron Percent Saturation 02/08/23Lipid Panel 05/16/22Reticulocyte Count 02/08/23Vitamin B12 Level 02/08/23NM Myocardial Spect Rest/Stress 1 Day 07/08/22 [facility] Evaluation + Plan note Future Appointments Appointment Date:04/11/2023 09:40:00 AM Scheduled Provider: Location:[facility] Appointment Type: Nurse Visit Appointment Date:06/04/2023 12:00:00 PM Scheduled Provider:Deonte ROSARIO MD Location:[facility] Appointment Type: Open Appointment Date:08/01/2023 01:00:00 PM Scheduled Provider: Location:[facility] Appointment Type: Medicare Wellness Subsequent Future Scheduled DwusfMntV1f 03/04/23CBC w/ Auto Diff 03/04/23CBC w/ Auto Diff 02/08/23Comprehensive Metabolic Panel 03/04/23Comprehensive Metabolic Panel 02/08/23Ferritin 03/04/23Ferritin 02/08/23Folate Level 03/04/23Folate Level 02/08/23Iron Level 03/04/23Iron Level 02/08/23Iron Percent Saturation 02/08/23Lipid Panel 03/04/23Lipid Panel 05/16/22Reticulocyte Count 03/04/23Reticulocyte Count 02/08/23Vitamin B12 Level 03/04/23Vitamin B12 Level 02/08/23NM Myocardial Spect Rest/Stress 1 Day 07/08/22 [facility] Evaluation + Plan note Future Appointments Appointment Date:04/15/2023 01:40:00 PM Scheduled Provider:Brunilda Redding CNP Location:[facility] Appointment Type:BAD Follow Up Appointment Date:06/04/2023 12:00:00 PM Scheduled Provider:Deonte ROSARIO MD Location:[facility] Appointment Type: Open Appointment Date:08/01/2023 01:00:00 PM Scheduled Provider: Location:[facility] Appointment Type: Medicare Wellness Subsequent Future Scheduled QgxacEtfZ0a 03/04/23CBC w/ Auto Diff 03/04/23CBC w/ Auto Diff 02/08/23Comprehensive Metabolic Panel 03/04/23Comprehensive Metabolic Panel 02/08/23Ferritin 03/04/23Ferritin 02/08/23Folate Level 03/04/23Folate Level 02/08/23Iron Level 03/04/23Iron Level 02/08/23Iron Percent Saturation 02/08/23Lipid Panel 03/04/23Lipid Panel 05/16/22Reticulocyte Count 03/04/23Reticulocyte Count 02/08/23Vitamin B12 Level 03/04/23Vitamin B12 Level 02/08/23NM Myocardial Spect Rest/Stress 1 Day 07/08/22 [facility] Evaluation + Plan note Future Appointments Appointment Date:08/01/2023 01:00:00 PM Scheduled Provider: Location:[facility] Appointment Type: Medicare Wellness Subsequent Appointment Date:09/23/2023 03:00:00 PM Scheduled Provider:Deonte ROSARIO MD Location:[facility] Appointment Type: Open Future Scheduled TestsSedimentation Rate Automated 297ZwnN8m 03/04/23CBC w/ Auto Diff 03/04/23CBC w/ Auto Diff 04/15/23CBC w/ Auto Diff 02/08/23Comprehensive Metabolic Panel 03/04/23Comprehensive Metabolic Panel 02/08/23C-Reactive Protein 06/25/23Ferritin 03/04/23Ferritin 02/08/23Folate Level 03/04/23Folate Level 02/08/23GGT 04/15/23Hepatic Function Panel 04/15/23Iron Level 03/04/23Iron Level 02/08/23Iron Percent Saturation 02/08/23Lipid Panel 03/04/23Reticulocyte Count 03/04/23Reticulocyte Count 02/08/23Vitamin B12 Level 03/04/23Vitamin B12 Level 02/08/23NM Myocardial Spect Rest/Stress 1 Day 07/08/22US Liver 04/15/23 [facility] Evaluation + Plan note Future Appointments Appointment Date:09/23/2023 03:00:00 PM Scheduled Provider:Deonte ROSARIO MD Location:[facility] Appointment Type: Open Appointment Date:08/03/2024 01:00:00 PM Scheduled Provider: Location:[facility] Appointment Type: Medicare Wellness Subsequent Future Scheduled TestsSedimentation Rate Automated 06/25/2363IjaT6u 03/04/23CBC w/ Auto Diff 03/04/23CBC w/ Auto Diff 04/15/23CBC w/ Auto Diff 02/08/23Comprehensive Metabolic Panel 03/04/23Comprehensive Metabolic Panel 02/08/23C-Reactive Protein 06/25/23Ferritin 03/04/23Ferritin 02/08/23Folate Level 03/04/23Folate Level 02/08/23GGT 04/15/23Hepatic Function Panel 04/15/23Iron Level 03/04/23Iron Level 02/08/23Iron Percent Saturation 02/08/23Lipid Panel 03/04/23Reticulocyte Count 03/04/23Reticulocyte Count 02/08/23Vitamin B12 Level 03/04/23Vitamin B12 Level 02/08/23US Liver 04/15/23 [facility] Evaluation note Diagnosis 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) Coronary artery disease involving [place] coronary artery of [place] heart Primary hypertension Unspecified essential hypertension Lung nodule, solitary, 8 mm documented in this encounter [facility] Work Phone: evaluation note* 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 Abrasion of right cornea, initial encounter [facility] 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 [facility] Narrative No data available for this section [facility] Hospital Discharge instructions No data available [facility] this section [facility] No data available for this section [facility] Referred by: Deonte ROSARIO MD [facility] Summary Purpose Family History [...] section and content) DATE CREATED AUTHOR 11/28/2020 [facility] DATE CREATED AUTHOR AUTHOR'S ORGANIZ ATION 06/21/2022 [facility] DATE CREATED AUTHOR AUTHOR'S ORGANIZ ATION 09/20/2022 [facility] pital DATE CREATED AUTHOR AUTHOR'S ORGANIZ ATION 08/01/2023 [facility] EPIC DATE CREATED AUTHOR AUTHOR'S ORGANIZ ATION 08/28/2023 [facility] Center Care Team (unrecognized sect ion and content) Park Keeper Relationship Specialty Start Date End Date Deonte Rosario MD [address] [place] [address] PCP - General Internal Medicine 06/12/22 Ordered [...] Until Discontinued 2029 (Given - Provider: Brigid Murphy, TOMASZ) 1952 (Given - Provider: Brigid Murphy RN) 2100 (Due) carvedilol (COREG) tablet 12.5 mg 12.5 mg, Oral, 2 TIMES DAILY WITH MEALS, First dose (after last modification) on Fri06/18/22 at 1700, Until Discontinued, Administer with food to minimize the risk of orthostatic hypotension 182 (Given - Provider: Juana Moralez RN) 0849 [...] RN) 0849 (Given - Provider: Damien Villar RN)1952 (Given - Provider: Brigid Murphy RN) 0804 (Given - Provider: Corby Robledo RN)2100 (Due) enoxaparin Sodium (LOVENOX) injection 30 mg 30 mg, SubCUTAneous, DAILY, First dose (after last modification) on Fri06/17/22 at 1130, Until Discontinued, Indication of Use: Prophylaxis-DVT/PE 0914 (Given - Provider: Juana Moralez RN) 0849 (Given - Provider: Damien Villar, TOMAZS) 0804 (Given - Provider: Corby Robledo RN) famotidine (PEPCID) 20 mg in sodium chloride (PF) 0.9 % 10 mL injection 20 mg, IntraVENous, DAILY, First dose (after last modification) on Fri06/17/22 at 1130, Until Discontinued, IV Push over minimum of 2 minutes - Dilute with 10 mL NS 0911 (Given - Provider: Juana oMralez RN) 0849 (Given - Provider: Damien Villar [...] 0849 (Given - Provider: Damien Villar RN) oxyCODONE (ROXICODONE) immediate release tablet 5 mg [...] 0900 0804 (Given - Provider: Corby Robledo, TOMASZ) sodium chloride flush 0.9 % injection 5-40 [...] Murphy RN) 0850 (Given - Provider: Damien Villar, TOMASZ)195 (Given - Provider: Brigid Murphy, TOMASZ) 0805 (Not Given - Provider: Corby Robledo RN - Reason: Other - Comment: lda removed)2100 (Due) ticagrelor (BRILINTA) tablet 90 mg 90 mg, Oral, 2 TIMES DAILY, First dose on Fri06/17/22 at 1130, Until Discontinued, ANTIPLATELET! 0913 (Given - Provider: Juana Moralez RN)2030 (Given - Provider: Brigid Murphy, TOMASZ) 0849 (Given - Provider: Damien Villar RN)1951 (Given - Provider: Brigid Murphy RN) 0804 (Given - Provider: Corby Robledo RN)2100 [...] BE BASED ON THE PRIMARY CLINICAL RECORDS. [employer] [facility]. provides no warranty or guarantee of the accuracy or completeness of information in this document.
== END 2023-08-27 12:35 | disposition home or self-care (01) ==
LOC: ER 19:46 → MS 08-27 08:30
PROVIDERS: Physician Assistant; Registered Nurse; Admitting Provider Nurse Practitioner; Emergency Provider Emergency Medicine; Visit Provider Nurse Practitioner
DX: J06.9 Acute upper respiratory infection, unspecified (principal); R06.02 Shortness of breath; B97.89 Other viral agents as the cause of diseases classified elsewhere; I25.10 Atherosclerotic heart disease of native coronary artery without angina pectoris; Z79.82 Long term (current) use of aspirin; Z79.899 Other long term (current) drug therapy; K44.9 Diaphragmatic hernia without obstruction or gangrene; J44.1 Chronic obstructive pulmonary disease with (acute) exacerbation; Z86.73 Personal history of transient ischemic attack (TIA), and cerebral infarction without residual deficits; K21.9 Gastro-esophageal reflux disease without esophagitis; N18.32 Chronic kidney disease, stage 3b; R06.00 Dyspnea, unspecified; I65.29 Occlusion and stenosis of unspecified carotid artery; R07.89 Other chest pain; H40.9 Unspecified glaucoma; E78.5 Hyperlipidemia, unspecified; C85.90 Non-Hodgkin lymphoma, unspecified, unspecified site; I12.9 Hypertensive chronic kidney disease with stage 1 through stage 4 chronic kidney disease, or unspecified chronic kidney disease; E61.1 Iron deficiency
CPT/HCPCS: 0202U; 36415; 71045; 71275; 80053; 82800; 83605; 83880; 84484; 85025; 85610; 93005; 94640; 96365; 96366; 96372; 96375; 99285; G0378; J2919; Q9967

== ENCOUNTER 2025-03-31 16:10 | Emergency (ER) | payer MEDICARE, MEDICAID, SELFPAY ==
--- OUTSIDE RECORDS SUMMARY | 2023-10-15 08:45 | XMS_ITS ---
Author Organization [facility] Address [address] [place] [address] [place] [address] Care Team Providers Care Telecom Assistant Name Role Phone Bud Rosario MD Primary Care Provider Yair Avina Unavailable [phone] Encounters Encounter Location Date Provider Diagnosis [address] [address] 10/15/2023 Yari Keita Plan Of Treatment Next Appt Details Provider Name:Yair cruz, 04/13/2025 03:30:00 PM, [address] [place] [address], [phone], Progress Notes * Wally FERGUSONOB:[birth year] (89 yo F)Acc No.[id number]:10/15/2023 Patient:?Lor Fergusonmary :?HARI SteinbergMDOB:1935???Age:88 Y???Sex: FemaleDate:4Phone:[phone]:[address] [place] [address]Uyw:Bud Rosario MD * Electronic signature of Yair Keita DPM on 03/31/2025 at 05:22 PM ESTSign off status: Pending * Provider: Delmy Keita DPM Date: 0 10/15/2023 Generated for Printing/Faxing/eTransmitting on:?03/31/2025 05:22 PM EST
--- OUTSIDE RECORDS SUMMARY | 2024-04-14 10:30 | XMS_ITS ---
Author Organization [facility] Address [address] [place] [address] [place] [address] Care Team Providers Care Oyster Picker Name Role Phone Bud Rosario MD Primary Care Provider Yair Avina Unavailable [phone] Encounters Encounter Location Date Provider Diagnosis [address] [address] 04/14/2024 Yair Keita Plan Of Treatment Next Appt Details Provider Name:Yair cruz, 04/13/2025 03:30:00 PM, [address] [place] [address], [phone], Progress Notes * Wally FERGUSONOB:[birth year] (89 yo F)Acc No.[id number]:04/14/2024 Patient:?GerrikatieLorPiedad :?HARI SteinbergMDOB:1935???Age:88 Y???Sex: FemaleDate:4Phone:[phone]:[address] [place] [address]Nun:Bud Rosario MD * Electronic signature of Yair Keita DPM on 03/31/2025 at 05:22 PM ESTSign off status: Pending * Provider: Delmy Keita DPM Date: 06/15/2023 Generated for Printing/Faxing/eTransmitting on:?03/31/2025 05:22 PM EST
--- OUTSIDE RECORDS SUMMARY | 2024-07-14 10:30 | XMS_ITS ---
Author Organization [facility] Address [address] [place] [address] [place] [address] Care Team Providers Care Staff [employer] Officer Name Role Phone Bud Rosario MD Primary Care Provider Yair Avina Unavailable [phone] Encounters Encounter Location Date Provider Diagnosis [address] [address] 07/14/2024 Yair Keita Plan Of Treatment Next Appt Details Provider Name:Yair cruz, 04/13/2025 03:30:00 PM, [address] [place] [address], [phone], Progress Notes * Wally FERGUSONOB:[birth year] (89 yo F)Acc No.[id number]:07/14/2024 Patient:?Lor Fergusonmary :?HARI SteinbergMDOB:1935???Age:88 Y???Sex: FemaleDate:07/14/2024Phone:[phone]:[address] [place] [address]Dpd:Bud Rosario MD * Electronic signature of Yair Keita DPM on 03/31/2025 at 05:22 PM ESTSign off status: Pending * Provider: Delmy Keita DPM Date: 0 07/14/2024 Generated for Printing/Faxing/eTransmitting on:?03/31/2025 05:22 PM EST
--- OUTSIDE RECORDS SUMMARY | 2024-10-13 09:15 | XMS_ITS ---
Author Organization [facility] Address [address] [place] [address] [place] [address] Care Team Providers Care Programming Manager Name Role Phone Bud Rosario MD Primary Care Provider Yair Avina Unavailable [phone] Encounters Encounter Location Date Provider Diagnosis [address] [address] 10/13/2024 Yair Keita Plan Of Treatment Next Appt Details Provider Name:Yair cruz, 04/13/2025 03:30:00 PM, [address] [place] [address], [phone], Progress Notes * Wally FERGUSONOB:[birth year] (89 yo F)Acc No.[id number]:10/13/2024 Patient:?Lor Fergusonmary :?HARI SteinbergMDOB:1935???Age:89 Y???Sex: FemaleDate:10/13/2024Phone:[phone]:[address] [place] [address]Iby:Bud Rosario MD * Electronic signature of Yair Keita DPM on 03/31/2025 at 05:22 PM ESTSign off status: Pending * Provider: Delmy Keita DPM Date: 0 10/13/2024 Generated for Printing/Faxing/eTransmitting on:?03/31/2025 05:22 PM EST
--- OUTSIDE RECORDS SUMMARY | 2025-01-12 10:45 | XMS_ITS ---
Author Organization [facility] Address [address] [place] [address] [place] [address] Care Team Providers Care Senior Rd Engineer Name Role Phone Bud Rosario MD Primary Care Provider Yair Avina Unavailable [phone] Encounters Encounter Location Date Provider Diagnosis [address] [address] 01/12/2025 Yair Keita Plan Of Treatment Next Appt Details Provider Name:Yair cruz, 04/13/2025 03:30:00 PM, [address] [place] [address], [phone], Progress Notes * Wally FERGUSONOB:[birth year] (89 yo F)Acc No.[id number]:01/12/2025 Patient:?Lor Fergusonmary :?HARI SteinbergMDOB:1935???Age:89 Y???Sex: FemaleDate:01/12/2025Phone:[phone]:[address] [place] [address]Fyq:Bud Rosario MD * Electronic signature of Yair Keita DPM on 03/31/2025 at 05:23 PM ESTSign off status: Pending * Provider: Delmy Keita DPM Date: 0 01/12/2025 Generated for Printing/Faxing/eTransmitting on:?03/31/2025 05:23 PM EST
--- OUTSIDE RECORDS SUMMARY | 2025-02-16 06:00 | XMS_ITS ---
Author Organization [facility] Address [address] [place] [address] Care Team Providers Care Hr Intern Name Role Phone Dr. Erick Marsh Primary Care Provider [phone] Meliza Boyle Dixie Rosenthal [phone] REASON FOR VISIT FILLING Encounters Encounter Location Date Provider Diagnosis [facility] [address] [place] [address] 02/16/2025 Dixie Boyle Plan Of Treatment No Information Progress Notes * DIOR FERGUSONOB:[birth year] (89 yo F)Acc No.[id number]:02/16/2025 Patient:?MARTHA FERGUSON :?Dixie BoyleDOB:1935???Age:89 Y???Sex:Female Date:02/16/2025Phone:[phone]:[facility] [address] [id number]:Dr. Erick Marsh Subjective: * Chief Complaints: * F ILLING * Electronic signature of Dixie Tamar , [id number] on 03/31/2025 at 05:22 PM ESTSign off status: Pending * Provider: Migel Boyle Date: 1 Generated for Printing/Faxing/eTransmitting on:?03/31/2025 05:22 PM EST
[2025-03-31 16:12] VITALS: BP 162/77; PULSE 97; TEMP 38; O2SAT 93; BMI 27.5
[2025-03-31 16:45] VITALS: O2SAT 99
--- NOTE | 2025-03-31 16:52 | CT_ITS ---
[address] [address] Patient Name: MARTHA FERGUSON MRN: [id number] date: 1935 Sex: F Assigned Patient Location: ED.MAIN Current Patient Location: ED.MAIN Accession/Order Number: [id number] Exam Date: 03/31/2025 17:20 Report Date: 03/31/2025 17:49 At the request of: DK SOLORIO Procedure: CT hip RT wo con CT lumbar spine without contrast TECHNIQUE: The CT exam was performed using one or more the following dose reduction techniques: Automated exposure control, adjustment of the MA and/or Kv according to patient size, or use of the iterative reconstruction technique. COMPARISON: None HISTORY: Right hip pain. No injury. Adequate lumbar lordosis. Multilevel spondylosis and facet degeneration. No acute fracture. Atherosclerosis of the aorta. CT/CT lumbar spine wo con IMPRESSION: Degenerative change. No acute fracture. Routine technique for CT of the right hip Adequate bony alignment without acute displaced fracture. Mild right hip degeneration. Greater trochanter spurring. No focal soft tissue abnormality. IMPRESSION: No acute displaced fracture. Mild degeneration of the right hip. Impression dictated by: Delbert iLu M.D. 03/31/2025 5:49 PM Dictation Location: [employer] Electronically authenticated by: [id number] Y Date: 03/31/2025 17:49
--- NOTE | 2025-03-31 16:52 | CT_ITS ---
[address] [address] Patient Name: MARTHA FERGUSON MRN: [id number] date: 1935 Sex: F Assigned Patient Location: ED.MAIN Current Patient Location: ED.MAIN Accession/Order Number: [id number] Exam Date: 03/31/2025 17:20 Report Date: 03/31/2025 17:49 At the request of: DK SOLORIO Procedure: CT hip RT wo con CT lumbar spine without contrast TECHNIQUE: The CT exam was performed using one or more the following dose reduction techniques: Automated exposure control, adjustment of the MA and/or Kv according to patient size, or use of the iterative reconstruction technique. COMPARISON: None HISTORY: Right hip pain. No injury. Adequate lumbar lordosis. Multilevel spondylosis and facet degeneration. No acute fracture. Atherosclerosis of the aorta. CT/CT hip RT wo con IMPRESSION: Degenerative change. No acute fracture. Routine technique for CT of the right hip Adequate bony alignment without acute displaced fracture. Mild right hip degeneration. Greater trochanter spurring. No focal soft tissue abnormality. IMPRESSION: No acute displaced fracture. Mild degeneration of the right hip. Impression dictated by: Delbert Liu M.D. 03/31/2025 5:49 PM Dictation Location: [employer] Electronically authenticated by: [id number] Y Date: 03/31/2025 17:49
[2025-03-31 17:00] LABS: Hematocrit 35.5 % (36.0-48.0); Hemoglobin 11.8 g/dL (12.0-16.0); Immature Granulocytes Abs Auto 0.16 10^3/uL (0.00-0.03); Immature Granulocytes Pct Auto 0.9 % (0.0-0.5); Lymphocytes Absolute Auto 0.6 10^3/uL (1.2-3.8); Mean Corpuscular HGB Conc 33.2 g/dL (29.9-35.2); Mean Corpuscular Hemoglobin 31.4 pg (26.7-34.0); Mean Corpuscular Volume 94.4 fL (81.0-99.0); Platelet Count 205 10^3/uL (150-450); Red Blood Count 3.76 10^6/uL (4.20-5.40); White Blood Count 17.1 10^3/uL (4.0-11.0)
[2025-03-31] MEDS: ACETAMINOPHEN 500 MG TABLET 1000 MG PO (17:08)
[2025-03-31] MEDS: MORPHINE SULFATE 2 MG/ML SYRINGE 1 MG IV (17:09)
[2025-03-31 17:14] LABS: Alanine Aminotransferase 23 U/L (14-59); Albumin Globulin Ratio 1.2; Albumin Level 3.6 g/dL (3.4-5.0); Alkaline Phosphatase 184 U/L (46-116); Anion Gap 12.7; Aspartate Amino Transferase 17 U/L (15-37); Blood Urea Nitrogen 26.0 mg/dL (7.0-18.0); Calcium 9.1 mg/dL (8.5-10.1); Carbon Dioxide 27.8 mmol/L (21.0-32.0); Chloride 105 mmol/L (98-107); Estimated GFR (African America 34 (>=60 mL/min/1.73m^2); Estimated GFR (Non-African Ame 28 (>=60 mL/min/1.73m^2); Globulin 3.1 g/dL; Glucose 92 mg/dL (74-106); Potassium 4.5 mmol/L (3.5-5.1); Sodium 141 mmol/L (136-145); Total Protein 6.7 g/dL (6.4-8.2)
--- OUTSIDE RECORDS SUMMARY | 2025-03-31 17:22 | XMS_ITS ---
Author Organization [facility] Address [address] [place] [address] Care Team Providers Care Rubber Production Machine Operator Name Role Phone Bud Rosario MD Primary Care Provider [phone] Active Problems ProblemNoted DateDiagnosed DateSplenic marginal zone b-cell yhvrvecc73/17/2016 Marginal zone B-cell duaetbxm02/05/2012CVA (cerebral infarction)04/15/2012sthma 04/15/20120835Tpbwbhjtwfoq33/05/2012 Current Treatment and Therapy Plans No current plan information found. Past Treatment and Therapy Plans Plan NameStart DateDiscontinue DateTreatment MedicationsDiscontinue ReasonPlan ProviderCyclesRITUXIMAB 375 D1 - Q60D X2 YEARS* riTUXimab iv piggyback (RITUXAN) ChanceMuSteve clifford MD30 of 31 cycles started
--- OUTSIDE RECORDS SUMMARY | 2025-03-31 17:22 | XMS_ITS | Patient Health Record ---
Author Organization [facility] Address [address] [place] [address] Care Team Providers Care Dock Builder Name Role Phone Dr. Erick Marsh Primary Care Provider Marie Martinez Unavailable Unavailable Tamar Dixie Unavailable [phone] Reason For Referral No Information Encounters Encounter Location Date Provider Diagnosis [facility] [address] [place] [address] 12/14/2024 Erick Marsh Encounter for dental examination and cleaning with abnormal findings Z01.21 ; Disturbances in tooth eruption K00.6 ; Dental caries on pit and fissure surface penetrating into dentin K02.52 and Necrosis of pulp K04.1 [facility] [address] [place] [address] 12/16/2024 Marie Martinez Acute gingivitis, plaque induced K05.00 Assessments Encounter Date Diagnosis (ICD Code) Assessment Notes Treatment Notes Treatment Clinical Notes Section Notes 12/14/2024 Encounter for dental examination and cleaning with abnormal findings (ICD-10 - Z01.21) 12/16/2024ute gingivitis, plaque induced (ICD-10 - K05.00)12/14/2024 Disturbances in tooth eruption (ICD-10 - K00.6)12/14/2024Dental caries on pit and fissure surface penetrating into dentin (ICD-10 - K02.52)12/14/2024Necrosis of pulp (ICD-10 - K04.1) Plan Of Treatment No Information Insurance Providers Payer Name Payer Address Payer Phone Subscriber Number Group Number Insured Name Patient Relationship to Insured Coverage Start Date Coverage End Date DENTAL MEDICAID [facility] [address], [place] [address] [id number] Denita FERGUSON - patient is the [id number] 2022
--- OUTSIDE RECORDS SUMMARY | 2025-03-31 17:22 | XMS_ITS | Patient Health Record ---
Author Organization [facility] Address [address] [place] [address] [place] [address] Care Team Providers Care Psychiatric Orderly Name Role Phone Bud Rosario MD Primary Care Provider Yair Avina Unavailable [phone] Reason For Referral No Information Encounters Encounter Location Date Provider Diagnosis [facility] [address] [place] [address] 04/14/2024 Yair eKita [facility] [address] [place] [address]/09/2024 [facility] [address] [place] [address]/08/2024[facility] [address] [place] [address]/07/2024Yair Keita Plan Of Treatment Next Appt Details Provider Name:Yair cruz, 04/13/2025 03:30:00 PM, [address], [place], [address], Insurance Providers Payer Name Payer Address Payer Phone Subscriber Number Group Number Insured Name Patient Relationship to Insured Coverage Start Date Coverage End Date Medicare Part B J-15 Part [facility] Claims [address] [place] [address] [id number], RosemarySbethany - patient is the insuredChildren[facility]ca[facility] Dpt of Job Fmmae [address] [place] [id number], RosemarySelf - patient is the insured
--- OUTSIDE RECORDS SUMMARY | 2025-03-31 17:22 | XMS_ITS | Clinical Summary ---
Author Organization [facility] Address [address] [place] [address] Care Team Providers Care Housekeeping Assistant Name Role Phone Bud Rosario MD Primary Care Provider [phone] Allergies Active AllergyReactionsCriticalityNoted DateCommentsIodinated Contrast Media HabmocqUxpqeretibmVsqercx07/29/2012Shellfish Containing ProductsUnknown LcktwdowxlGmmovat29/29/2012 Medications MedicationSigDispense QuantityRefillsLast FilledStart DateEnd DateStatus AMLODIPINE 5 mg tablet Take 5 mg by mouth once daily.04/06/2012ctive LOSARTAN 100 mg tablet Take 100 mg by mouth once daily.04/08/2012ctive METOPROLOL TARTRATE, SHORT ACTING, 50 mg tablet Take 50 mg by mouth twice daily.03/24/2012ctive simvastatin (ZOCOR) 10 mg tablet Take 10 mg by mouth daily at bedtime.07/29/2014ctive PROAIR HFA 90 mcg/actuation inhaler Inhale 1 Puff as instructed every 4 hours as needed.07/26/2014ctive cloNIDine HCl (CATAPRES) 0.1 mg tablet Take 0.1 mg by mouth twice daily.12/30/2016Active pantoprazole DR (PROTONIX) 40 mg tablet Take 1 tablet by mouth twice daily. 180 tablet Active albuterol (PROVENTIL) 2.5 mg /3 mL (0.083 %) nebulizer solution USE 1 VIAL PER NEBULIZER EVERY 4-6 HOURS YMIVHU900Active prochlorperazine (COMPAZINE) 10 mg tablet Indications:Marginal zone B-cell lymphoma (HCC)Take 1 tablet by mouth every 6 hours as needed. 40 tablet Active Active Problems ProblemNoted DateDiagnosed DateSplenic marginal zone b-cell ixyqasng35/17/2016 Marginal zone B-cell tyvhjypu33/05/2012CVA (cerebral infarction)04/15/2012sthma 04/15/20120775Qugttxczkhro46/05/2012 Immunizations ImmunizationAdministration DatesNext Dueinfluenza (HD-IIV3) vaccine, age 65+ yr, high dose, trivalent, PF (FLUZONE HIGH-DOSE)03/10/2018influenza (IIV4) vaccine, quadrivalent (AFLURIA, FLULAVAL, FLUZONE)02/16/2016pneumococcal conjugate (PCV13) vaccine, 13 valent (PREVNAR 13)02/16/2016 Social History Tobacco UseTypesPacks/DayYears UsedDateSmoking Tobacco: NeverSmokeless Tobacco: NeverAlcohol UseStandard Drinks/WeekCommentsNot Asked0 (1 standard drink = 0.6 oz pure alcohol)PHQ-2AnswerDate RecordedPHQ-2 pyena923Area Deprivation IndexAnswerDate RecordedNational Score (1-100), lower number is lower riskNot on file04/19/2020State Score (1-10), lower number is lower riskNot on file 04/19/2020Data from: https://www.neighborhoodatlas.[facility].edu/. Last address used for calculationNot on file04/19/2020CommentsNoSex and Gender InformationValueDate RecordedSex Assigned at BirthNot on fileLegal Sex Capfdu9704/12/2012 10:13 AM ESTGender IdentityNot on fileSexual OrientationNot on file Last Filed Vital Signs Vital SignReadingTime TakenCommentsBlood Xhkkihgw951/75010/14/2019 10:20 AM EDT Quclv0068 10:20 AM GUFRbfwgapwqze50.4 ??C (97.5 ??F)10/14/2019 10:20 AM EDTRespiratory Aobd880110/14/2019 10:20 AM EDTOxygen Scgxhtimdr34%10/14/2019 10:20 AM EDTInhaled Oxygen Concentration--Rxbbaw61.1 kg (139 lb 3.2 oz)10/14/2019 10:20 AM ZRCKnmwyv160.5 cm (5' 1.61 )10/14/2019 10:20 AM EDTBody Mass Index25.78 10/14/2019 10:20 AM EDT Plan of Treatment Health MaintenanceDue DateLast DoneCommentsAnxiety Lbuniwqce52/27/1955Depression Vkxdwmrro18/27/1955DTaP,Tdap,Td Vaccine (1 - Tdap)10/06/1955Shingrix Vaccine (1 of 2)1986Bone Density Gnwnufifj35/27/2002RSV Vaccine (1 - 1-dose 75+ series)10/06/2011Pneumococcal Vaccine: 50+ (2 of 2 - PCV20 or PCV21)02/15/2017 02/16/2016Diabetes Euvhvckfs95, 04/27/2019, 02/02/2019, Additional history existsAdvance Directive Sajyuhnwlp38/01/2025ovid-19 Vaccine (1 - 2024- season)2025Influenza Vaccine (#1), 03/10/2018, 02/16/2016 Procedures Procedure NamePriorityDate/TimeAssociated DiagnosisCommentsCOMPREHENSIVE METABOLIC MZYPDFpqrlsl27/04/2020 10:09 AM EDT Splenic marginal zone b-cell lymphoma (HCC) from Last 3 Months or Most Recently Relevant to Health Maintenance Results * (ABNORMAL) COMP METABOLIC PANEL (10/14/2019 10:09 AM EDT)ComponentValueRef RangeTest MethodAnalysis TimePerformed AtPathologist SignatureProtein, Total 6.76.3 - 8.0 g/dL10/14/2019 10:38 AM EDTCC[facility] Cancer CareAlbumin4.43.9 - 4.9 g/dL10/14/2019 10:38 AM EDTCCleveland Clinic [facility] Cancer CareCalcium9.78.5 - 10.2 mg/dL10/14/2019 10:38 AM EDTCCleveland Clinic [facility] Cancer CareBilirubin, Total0.20.2 - 1.3 mg/dL10/14/2019 10:38 AM TCCleveland Clinic [facility] Cancer CareAlkaline Adahitzkolc164(H) 34 - 123 U/L10/14/2019 10:38 AM [facility] CareAST 1413 - 35 U/L10/14/2019 10:38 AM [facility] Ywezlmc217(H)74 - 99 mg/dL10/14/2019 10:38 AM [facility] CareComment: The [place] Diabetes Association (ADA) provides guidance for cutoff values for fasting glucose and random glucose. The ADA defines fasting as no caloric intake for at least 8 hours. Fasting plasma glucose results between 100 to 125 mg/dL indicate increased risk for diabetes (prediabetes). Fasting plasma glucose results greater than or equal to 126 mg/dL meet the criteria for diagnosis of diabetes. In the absence of unequivocal hyperglycemia, results should be confirmed by repeat testing. In a patient with classic symptoms of hyperglycemia or hyperglycemic crisis, random plasma glucose results greater than or equal to 200 mg/dL meet the criteria for diagnosis of diabetes. Reference: Standards of Medical Care in Diabetes 2016, [place] Diabetes Association. Diabetes Care. 2016.39(Suppl 1). BUN33(H)7 - 21 mg/dL10/14/2019 10:38 AM [facility] CareCreatinine1.28(H)0.58 - 0.96 mg/dL10/14/2019 10:38 AM [facility] FnhjMjrezw519(H)136 - 144 mmol/L10/14/2019 10:38 AM T [facility] Cancer CarePotassium4.63.7 - 5.1 mmol/L10/14/2019 10:38 AM [facility] RskpXgnqdano748(H)97 - 105 mmol/L10/14/2019 10:38 AM [facility] JvveKH84650 - 30 mmol/L10/14/2019 10:38 AM [facility] CareAnion Ggr918 - 18 mmol/L10/14/2019 10:38 AM [facility] XfntBRA10 - 38 U/L10/14/2019 10:38 AM [facility] CareeGFR- Nwfqpnyb8332/04/2020 10:38 AM [facility] CareeGFR-All Other Races40.10/14/2019 10:38 AM EDUpper [facility] Center Cancer CareComment: eGFR (Estimated GFR) Units of measure: mL/min/1.73 meters squared eGFR is derived from the reexpressed MDRD Study equation using the following parameters: serum creatinine, age, gender and race. The creatinine assay has been calibrated to be traceable to IDMS. An eGFR <60 mL/min/1.73m2 for >3 months is consistent with chronic kidney disease. Refer to KDOQI guidelines for clinical interpretation. In patients with unstable renal function, e.g. those with acute kidney injury, the eGFR may not accurately reflect actual GFR. Specimen (Source)Anatomical Location / LateralityCollection Method / Volume Collection TimeReceived TimeBlood specimen (specimen)BLOOD SPECIMEN / Unknown 10/14/2019 10:09 AM EDT10/14/2019 10:11 AM EDT Narrative Authorizing ProviderResult TypeResult StatusSteve Sandhu MDLABORATORY Final ResultPerforming OrganizationAddressCity/State/ZIP CodePhone Number [facility] [address] [address] [facility] [address] from Last 3 Months or Most Recently Relevant to Health Maintenance Insurance Care Teams Team MemberRelationshipSpecialtyStart DateEnd Date Bud Rosario MD PCP - GeneralInternal Medicine05/24/11
--- OUTSIDE RECORDS SUMMARY | 2025-03-31 17:22 | XMS_ITS | Clinical Summary ---
Author Organization [facility] Address [facility] [place] [address] [place] [address] Care Team Providers Care Inside Sales Coordinator Name Role Phone Unavailable Primary Care Provider Unavailabl e Social History Tobacco UseTypesPacks/DayYears UsedDateSmoking Tobacco: Never AssessedChildcare AnswerDate FtqvnefbNuhhkujxzUcoodgd99/29/2020EmploymentAnswerDate Recorded QxjsgkjqbeBtldqem11/29/2020Purpose - LifeAnswerDate RecordedPurpose and direction in qpdgKrphoks59/11/2021CommentsUnknownSex and Gender InformationValueDate RecordedSex Assigned at BirthNot on fileLegal SexFemale 12/15/2014 12:13 PM EDTGender IdentityNot on fileSexual OrientationNot on file Plan of Treatment Not on file Medical Devices Not on file
--- OUTSIDE RECORDS SUMMARY | 2025-03-31 17:23 | XMS_ITS | Clinical Summary ---
Author Organization [facility] Address [address] [place] [address] Care Team Providers Care Learning Designer Name Role Phone Unavailable Primary Care Provider Unavailabl e Allergies Active AllergyReactionsCriticalityNoted DateCommentsIodinated Contrast Media Vygevqf9806/25/20238117CudeeTijoIip99/14/7637GapqysjbvtVvxdzsfoakDeht93/06/2023 MetaxaloneShortness of breath,BflejzgCywy84/29/2012PenicillinsRash,Shortness of breath,WdkkcwzUljo09/29/2012 Medications MedicationSigDispense QuantityRefillsLast FilledStart DateEnd DateStatus acetaminophen-codeine (Tylenol #2) 300-15 MG tablet TAKE 1 TABLET BY MOUTH EVERY 6 HOURS NEEDED FOR PAIN FOR 5 DAYS06/15/2023 Active amLODIPine (Norvasc) 5 MG tablet Take 5 mg by mouth in the morning.06/12/2023ctive atorvastatin (Lipitor) 80 MG tablet Take 80 mg by mouth at bedtimeActive carvedilol (Coreg) 25 MG tablet TAKE ONE TABLET BY MOUTH TWICE A DAY WITH MEALS FOR HTNActive cloNIDine (Catapres) 0.1 MG tablet Take 0.1 mg by mouth in the morning and 0.1 mg before bedtime.Active Docusate Sodium (DSS) 100 MG capsule Take 100 mg by mouth in the morning and 100 mg before bedtime.Active erythromycin (Romycin) 5 MG/GM ophthalmic ointment APPLY 1/2 INCH TO AFFECTED EYE(S) 3 TIMES A DAY06/15/2023ctive ipratropium (Atrovent) 0.03 % nasal spray GIVE 2 SPRAYS IN EACH NOSTRIL 3 TIMES DAILY DICKIM1904/15/2023ctive isosorbide mononitrate ER (Imdur) 30 MG 24 hr tablet Take 30 mg by mouth in the morning and 30 mg before bedtime.Active pantoprazole (ProtoNix) 40 MG EC tablet Take 40 mg by mouth in the morning.Active spironolactone (Aldactone) 25 MG tablet Take 25 mg by mouth in the morning.Active Brilinta 90 MG tablet Take 90 mg by mouth in the morning and 90 mg before bedtime.Active valACYclovir (Valtrex) 1 g tablet TAKE ONE TABLET BY MOUTH EVERY 8 HOURS FOR 7 DAYS3Active Cequa 0.09 % solution Indications:Dry eyes, bilateralINSTILL 1 DROP INTO BOTH EYES TWICE A DAY 60 each 5Active tobramycin-dexAMETHasone (Tobradex) ophthalmic suspension Indications:Anterior corneal dystrophy of right eyeINSTILL 1 DROP INTO RIGHT EYE 4 TIMES A DAY 5 mL 5Active Social History Tobacco UseTypesPacks/DayYears UsedDateSmoking Tobacco: Never Tobacco Cessation:Counseling Given: Not Answered CommentsUnknownSex and Gender InformationValueDate RecordedSex Assigned at BirthNot on fileLegal LxdVyoetk64/01/2023 8:35 PM EDTGender IdentityNot on fileSexual OrientationNot on file Last Filed Vital Signs Vital SignReadingTime TakenCommentsBlood Fjfxjvlq873/77011/02/2020 12:00 PM EDT Pulse--Temperature--Respiratory Rate--Oxygen Saturation--Inhaled Oxygen Concentration--Suqjjw81.6 kg (138 lb)11/02/2020 12:00 PM VHVPcgqdq368.6 cm (5' 4 )11/02/2020 12:00 PM EDTBody Mass Index23.69011/02/2020 12:00 PM EDT Plan of Treatment Not on file Insurance
--- OUTSIDE RECORDS SUMMARY | 2025-03-31 17:23 | XMS_ITS | Continuity of Care Document ---
Author Organization [facility] Address [address] [place] [address] Problems Condition ICD9 code ICD10 code SNOMED code Start Date End Date S tatus Results No Results Allergies, adverse reactions, alerts Substance Reaction Date Status Type No allergies have been recorded Non Drug Medications No administered medications reported Vital Signs No vital signs reported Social History No smoking Hx information available
--- OUTSIDE RECORDS SUMMARY | 2025-03-31 17:23 | XMS_ITS | Clinical Summary ---
Author Organization [facility] Address [address] [place] [address] Phone Care Team Providers Care Full Charge Bookkeeper Name Role Phone Unavailable Primary Care Provider Unavailabl e Social History Tobacco UseTypesPacks/DayYears UsedDateSmoking Tobacco: Never Assessed CommentsUnknownSex and Gender InformationValueDate RecordedSex Assigned at Not on fileLegal XlvHkpqlq72/25/2022 9:08 PM ESTGender IdentityNot on fileSexual OrientationNot on file Plan of Treatment Not on file
--- OUTSIDE RECORDS SUMMARY | 2025-03-31 17:23 | XMS_ITS | Clinical Summary ---
Author Organization [facility] Address [address] [place] [address], [address] [place] [address] Care Team Providers [employer] Underground Supervisor Name Role Phone Bud Rosario MD Primary Care Provider [phone] Allergies Active AllergyReactionsCriticalityNoted DateCommentsLisinoprilAngioedemaHigh 06/17/20226153Ydibxmaicta64/06/4713Icpqdklmkt05/06/2023 Medications MedicationSigDispense QuantityRefillsLast FilledStart DateEnd DateStatus pantoprazole (PROTONIX) 40 MG tablet Take 40 mg by mouth dailyActive polyethylene glycol (GLYCOLAX) 17 g packet Take 17 g by mouth dailyActive spironolactone (ALDACTONE) 25 MG tablet Take 25 mg by mouth dailyActive ticagrelor (BRILINTA) 90 MG TABS tablet Take 90 mg by mouth 2 times dailyActive TRAZODONE HCL PO Take 25 mg by mouth nightly as needed for SleepActive aspirin 81 MG EC tablet Take 81 mg by mouth dailyActive atorvastatin (LIPITOR) 80 MG tablet Take 80 mg by mouth nightlyActive cloNIDine (CATAPRES) 0.1 MG tablet Take 0.1 mg by mouth 2 times dailyActive docusate sodium (COLACE) 100 MG capsule Take 100 mg by mouth 2 times dailyActive ISOSORBIDE MONONITRATE ER PO Take 15 mg by mouth dailyActive carvedilol (COREG) 12.5 MG tablet Take 2 tablets by mouth 2 times daily (with meals) 60 tablet ctive Active Problems ProblemNoted DateDiagnosed DatePharyngoesophageal skuuucxpo07/09/2023Lung nodule, solitary, 8 mm06/19/2022ngioedema of wlrzix6606/17/2022ngioedema due to angiotensin converting enzyme inhibitor (MORIS-I)06/17/2022oronary artery disease involving viejas coronary artery of viejas heart06/17/2022rimary hypertension 06/17/2022 Social History Tobacco UseTypesPacks/DayYears UsedDateSmoking Tobacco: Never Assessed CommentsUnknownSex and Gender InformationValueDate RecordedSex Assigned at Not on fileLegal WbdWqxjah18/06/2023 2:23 AM ESTGender IdentityNot on fileSexual OrientationNot on file Last Filed Vital Signs Vital SignReadingTime TakenCommentsBlood Fafaxuow329/68006/20/2022 8:00 AM EST Dejht594406/20/2022 8:00 AM MDXXtbzkeoclzi74 ??C (98.6 ??F)06/20/2022 8:00 AM EST Respiratory Tces917606/20/2022 8:00 AM ESTOxygen Lyuiyxxyzc11%06/20/2022 8:00 AM ESTInhaled Oxygen Concentration--Pmojlk31 kg (139 lb)06/20/2022 6:00 AM EST Iosrvj522.6 cm (5' 4 )06/17/2022 8:00 AM ESTBody Mass Index23.8606/17/2022 8:00 AM EST Plan of Treatment Health MaintenanceDue DateLast UghiVknrvgngCzovdg35/27/1946Depression Screen 1948DTaP/Tdap/Td vaccine (1 - Tdap)10/06/1955Shingles vaccine (1 of 2) 1986Respiratory Syncytial Virus (RSV) or age 60 yrs+ (1 - 1-dose 75+ series)10/06/2011nnual Wellness Visit (Medicare)04/07/2023Flu vaccine (#1) 509/, 03/13/2021, 03/15/2020, Additional history existsCOVID-19 Vaccine ( season)501/08/2021, 07/12/2020, 06/14/2020, Additional history existsPneumococcal 50+ years RubbnmzNvrfoltqa29/02/2021, 06/22/2020, 02/16/2016, Additional history existsHepatitis A vaccineAged OutNo longer eligible based on patient's age to complete this topicHepatitis B vaccine Aged OutNo longer eligible based on patient's age to complete this topicHib vaccineAged OutNo longer eligible based on patient's age to complete this topic Meningococcal (ACWY) vaccineAged OutNo longer eligible based on patient's age to complete this topicMeningococcal B vaccineAged OutNo longer eligible based on patient's age to complete this topicPolio vaccineAged OutNo longer eligible based on patient's age to complete this topic Insurance Advance Directives * Full Code (Latest Code Status on File) Date ActivatedDate InactivatedComments06/17/2022 7:32 AM06/20/2022 11:06 AM * Full Code Date ActivatedDate InactivatedComments06/17/2022 7:32 AM06/17/2022 7:32 AM NameRelationshipHealthcare Agent RelationshipCommunicationJodi MatterOther Primary Decision Maker* Care Teams Team MemberRelationshipSpecialtyStart DateEnd Date Bud Rosario MD [address] [place] [address] PCP - GeneralInternal Medicine06/12/22
[2025-03-31 17:33] LABS: SARS-CoV-2 Ag NEGATIVE (NEGATIVE)
--- OUTSIDE RECORDS SUMMARY | 2025-03-31 17:38 | XMS_ITS | CCD ---
Author Organization [facility] ion [facility] Care Team Providers Care Systems Software Designer Name Role Phone Deonte ROSARIO Primary Care [...] EASTON Attending Unavailable ELEONORA EASTON Attending Unavailable Jose G Doyle Admitting Unavailable Jose G Doyle Attending Unavailable Jonathon Espinoza Referring Unavailable MD Jonathon Espinoza Referring Unavailable MD Jose G Doyle Attending Unavaila MD Jose G Chan Admitting Unavaila ble Deonte ROSARIO Attending Unavailable Alexx Nicole Attending Unavailable KENNETH, XXXX Referring Unavailable MD Jose G Doyle Admitting Unavaila ble MD Jose G Doyle Attending Unavaila ble NONE, XXXX Referring Unavailable MD Jonathon Espinoza Admitting Unavailable MD Jonathon Espinoza Attending Unavailable Deonte ROSARIO Admitting Unavailable Deonte ROSARIO Attending Unavailable MD Jonathon Espinoza Referring Unavailable Jose G Doyle Admitting Unavailable Jose G Doyle Attending Unavailable Deonte ROSARIO Admitting Unavailable Deonte ROSARIO Attending Unavailable Timmy Bascruz X Attending Unavailable NONE, XXXX Referring Unavailable [place], Bashar X Attending Unavailable NONE, XXXX Referring Unavailable Carlos Lovelacelynn Ursula Attending Unavailab Deonte Mcneil Attending Unavailable Deonte ROSARIO Attending Unavailable Deonte ROSARIO Attending Unavailable Deonte ROSARIO Attending Unavailable Deonte ROSARIO Admitting Unavailable MD Jonathon Espinoza Referring Unavailable Olga, MD Jonathon Hernandez Attending Unavailable MD Jonathon Espinoza Admitting Unavailable Deonte ROSARIO Referring Unavailable MD Jonathon Espinoza Attending Unavailable Pranav Sibley Attending Unavailable Pranav Sibley Admitting Unavailable Deonte ROSARIO Admitting Unavailable Marisabel Dumont Attending Unavailable Marisabel Dumont Attending Unavailable Alyssa Peterson Attending Unavailable Apollo Rodriges Attending Unavailable Pranav Sibley Admitting Unavailable Pranav Sibley Attending Unavailable Ross Dolan MD Attending Provider Darin Maza Attending Unavailable Deonte ROSARIO Attending Unavailable Deonte ROSARIO Attending Unavailable Deonte ROSARIO Attending Unavailable Deonte ROSARIO Admitting Unavailable Deonte ROSARIO Attending Unavailable NONE, XXXX Referring Unavailable Alexx Nicole Attending Unavailable Antonio Nguyen Attending Unavailable NONE, XXXX Referring Unavailable Wolf Peres Attending Unavaila ble Wolf Peres Referring Unavaila ble LuciaminWolf ivan Admitting Unavaila ble Lakeland, Bashar X Attending Unavailable Lakeland, Bashar X Referring Unavailable [place], Bashar X Admitting Unavailable Wolf Peres Attending Unavaila ble Wolf Peres Referring Unavaila ble LuciaminWolf ivan Admitting Unavaila ble NONE, XXXX Referring Unavailable [place], Bashar X Attending Unavailable Wolf Peres Attending Unavaila ble LuciaminiWolf Attending Unavaila ble Sarmini, Bloom Talal Attending Unavaila Deonte Holley Attending Unavailable Migdlaia Warner Attending Unavailable NONE, XXXX Referring Unavailable Ross Dolan Attending Unavailable Ross Dolan Admitting Unavailable Allergies Allergy ClassificationReported Allergen(s)Allergy TypeDate of OnsetReaction(s) Facility (20 sources)Latex; Translations: [Latex]Drug pswqvbu10-24-6734Okzetnkb of skin (disorder), [facility] (20 sources)metaxalone; Translations: [metaxalone]Drug Hkeorhm95-11-5797Gcgcrwi (finding)[facility] (20 sources)Penicillin; Translations: [penicillin]Drug AllergyEruption of skin (disorder), Dyspnea (finding)[facility] (20 sources)Shellfish; Translations: [shellfish]Drug allergyUnknown (qualifier value)[facility] (20 sources)Lisinopril; Translations: [lisinopril]Drug Wnwapos00-38-2012 Angioedema, Angioedema (disorder)[facility] Work Phone: (1 source)PenicillinsPropensity to adverse reactions to ntlb01-45-6530ZQN [facility] [employer] Work Phone: (1 source)metaxaloneDrug AllergyC[facility] (5 sources)LisinoprilPropensity to adverse pzseegabw97-09-9278MzfszdepiuZKOV Healthcare (5 sources)metaxaloneDrug Uaakipb92-93-7222Dswnwcsth of breath, UnknownNOMS Healthcare (5 sources)PenicillinsDrug Tmwzkjl09-28-8395Shmu, Shortness of breath, Unknown [facility] (5 sources)Iodinated Contrast MediaDrug Nbspvhd18-11-2791HnoeqtnGFIT Healthcare (10 sources)Contrast media; Translations: [Contrast Dye]Propensity to adverse reactions (disorder)[facility] Repository (10 sources)Povidone-Iodine; Translations: [Betadine]Drug AllergyAt[facility] Medications Current Medications MedicationDrug Class(es)DatesSig (Normalized)Sig (Original)Acetaminophen (20 sources)Start: 47-69-2356oibwwazpuliwn (TYLENOL) tablet 650 mgStart: 21-39-7044qifp 325 mg by mouth every six hours as needed for painacetaminophen 325 mg, Oral, q6hr, PRN as needed for pain, Refills(s) 0 Start Date: 10/17/21 Status: Ordered Repeat number: 1acetaminophen 300 mg / codeine phosphate 15 mg oral tablet (5 sources)Opioid AgonistStart: 29-31-1041aiku 1 tablet by mouth every six hours as needed for painacetaminophen-codeine (Tylenol #2) 300-15 MG tablet TAKE 1 TABLET BY MOUTH EVERY 6 HOURS NEEDED FOR PAIN FOR 5 DAYS 06/15/2023 Active acetaminophen 325 mg / HYDROcodone bitartrate 5 mg oral tablet (4 sources)Opioid AgonistStart: 03-29-2024 End: 60-60-7350iduh 1 tablet by mouth twice daily for painNorco 325 mg-5 mg oral tablet 1 tab(s), Oral, BID for pain, 20 tab(s), Refill(s) 0, [facility], 157, cm, 03/29/24 14:01:00 EST, Height/Length Dosing, 65.1, kg, 03/29/24 14:01:00 EST, WeightDosing Start Date: 04/05/24 Status: Orderedalbuterol 0.83 mg/ml inhalation solution (13 sources)beta2-Adrenergic AgonistStart: 09-11-1353neqh 2.5 mg by inhalation every six hoursalbuterol 0.083% Inh Melba 3 mL 2.5 mg, 3 mL, NEB, q6hr Shortness of breath or wheezing Start Date: 01/11/25 Status: Ordered Repeat number: 1Start: 45-29-3832vnrt 2.5 mg by inhalation every six hours for wheezingalbuterol 0.083% Inh Melba 3 mL 2.5 mg, 3 mL, Inhalation, q6hr for wheezing, 360 mL, Refill(s) 3, dx J44.9, [facility], 157, cm, 02/05/24 14:56:00 EDT, Height/Length Dosing, 66.4, kg, 02/05/24 14:56:00 EDT, Weight Dosing Start Date: 02/11/24 Status: Ordered Quantity: 360.0 Unit: mLRepeat number: 4 Indications: Unspecified asthma with (acute) exacerbation; Acute upper respiratoryinfection, unspecified;Start: 09-03-2023 End: 64-38-6360bpum 2.5 mg by inhalation every six hours for wheezingalbuterol 0.083% Inh Melba 3 mL 2.5 mg, 3 mL, Inhalation, q6hr for wheezing for 30 day(s), 1 EA, Refill(s) 3, [facility], 157.5, cm, 09/03/23 9:45:00 EDT, Height/Length Dosing, 60.7, kg, 09/03/23 9:45:00 EDT, Weight Dosing Start Date: 09/03/23 Stop Date: 01/01/24 Status: OrderedAlbuterol (Eqv-Proventil HFA) 90 mcg/inh inhalation aerosol (20 sources)Start: 96-95-0388chnz 2 puff(s) by inhalation every six hours Albuterol (Eqv-Proventil HFA) 90 mcg/inh inhalation aerosol = 2 puff(s), Inhalation, q6hr, # 18 gm,Refills(s) 5, Pharmacy: [facility], 157, cm, 02/05/24 14:56:00 EDT, Height/Length Dosing,66.4, kg, 02/05/24 14:56:00 EDT, Weight Dosing Start Date: 02/10/24 Status: Ordered Quantity: 18.0 Unit: g Repeat number: 6 Indications: Unspecified asthma with (acute) exacerbation; Acute upper respiratory infection, unspecified;Start: 84-00-4818ajbj 2 puff(s) by inhalation every six hoursAlbuterol (Eqv-Proventil HFA) 90 mcg/inh inhalation aerosol = 2 puff(s), Inhalation, q6hr, # 18 gm,Refills(s) 5, Pharmacy: [facility], 157, cm, 02/05/24 14:56:00 EDT, Height/Length Dosing,66.4, kg, 02/05/24 14:56:00 EDT, Weight Dosing Start Date: 02/10/24 Status: OrderedStart: 31-13-2589hdui 2 puff(s) by inhalation every six hoursAlbuterol (Eqv-Proventil HFA) 90 mcg/inh inhalation aerosol = 2 puff(s), Inhalation, q6hr, # 18 gm, Refills(s) 0, Pharmacy: [facility], 157.5, cm, 09/03/23 9:45:00 EDT, Height/Length Dosing, 60.7, kg, 09/03/23 9:45:00 EDT, Weight Dosing Start Date: 09/03/23 Status: OrderedamLODIPine 10 mg oral tablet (20 sources)Dihydropyridine Calcium Channel BlockerStart: 84-06-9518zrmf 1 tablet by mouth once dailyamLODIPine 10 mg Tab 10 mg = 1 tab(s), Oral, Daily, # 90 tab(s), Refills(s) 0, Pharmacy: [facility], 157, cm, 01/03/25 15:13:00 EDT, Height/Length Dosing, 67.2, kg, 01/03/25 15:17:00 EDT, Weight Dosing Start Date: 01/03/25 Status: Ordered Quantity: 90.0 Unit: tab(s) Repeat number: 1 Indications: Shortness of breath; Mixed hyperlipidemia; Essential (primary) hypertension; Atherosclerotic heart disease of [place] coronary artery without angina pectoris;Start: 65-61-0740idgh 1 tablet by mouth in the morningamLODIPine (Norvasc) 5 MG tablet Take 5 mg by mouth in the morning. 06/12/2023 ActiveStart: 33-28-0544wdgc 1 tablet by mouth once daily amLODIPine 10 mg Tab 10 mg = 1 tab(s), Oral, Daily, # 30 tab(s), Refills(s) 5, Pharmacy: [facility], 162, cm, 11/30/21 15:06:00 EDT, Height/Length Dosing, 62, kg, 11/30/21 15:06:00 EDT, Weight Dosing Start Date: 12/14/21 Status: Orderedatorvastatin 80 mg oral tablet (20 sources)HMG-CoA Reductase InhibitorStart: 32-08-4421ukqe 1 tablet by mouth at bedtimeatorvastatin 80 mg Tab 80 mg = 1 tab(s), Oral, Bedtime, # 90 tab(s), Refills(s) 4, Pharmacy: [facility], 157, cm, 03/29/24 14:01:00 EST, Height/Length Dosing, 65.1, kg, 03/29/24 14:01:00 EST, Weight Dosing Start Date: 06/30/24 Status: Ordered Quantity: 90.0 Unit: tab(s) Repeat number: 5carvedilol 25 mg oral tablet (20 sources)alpha-Adrenergic Nelly, beta-Adrenergic BlockerStart: 07-10-2022 take 1 tablet by mouth twice dailycarvedilol 25 mg Tab 25 mg = 1 tab(s), Oral, BID, # 180 tab(s), Refills(s) 4, Pharmacy: [facility], 157, cm, 03/29/24 14:01:00 EST, Height/Length Dosing, 65.1, kg, 03/29/24 14:01:00 EST, Weight Dosing Start Date: 06/30/24 Status: Ordered Quantity: 180.0 Unit: tab(s) Repeat number: 5Start: 08-73-8821eohw 2 tablets by mouth twice daily at mealtime carvedilol (COREG) 12.5 MG tablet Take 2 tablets by mouth 2 times daily (with meals) 60 tablet 3 06/19/2022 ActiveStart: 29-13-9421dzsxddlwry (COREG) tablet 12.5 mgStart: 06-17-2022 End: 18-79-0021jtshvkeyja (COREG) tablet 6.25 mgcloNIDine hydrochloride 0.1 mg oral tablet (20 sources)Central alpha-2 Adrenergic AgonistStart: 38-69-0383kvcf 1 tablet by mouth once dailyStart: 12-24-2019 End: 45-39-2904pzjp 1 tablet by mouth twice dailycloNIDine 0.1 mg tab 0.1 mg, Oral, BID, # 180 tab(s), Refills(s) 4, Pharmacy: [facility],157, cm, 03/29/24 14:01:00 EST, Height/Length Dosing, 65.1, kg, 03/29/24 14:01:00 EST, Weight Dosing Start Date: 06/30/24 Status: Ordered Quantity: 180.0 Unit: tab(s) Repeat number: 5cycloSPORINE 0.9 mg/ml ophthalmic solution (20 sources)Calcineurin Inhibitor ImmunosuppressantStart: 82-15-9084asox 1 drop(s) into the eye(s) twice dailyCequa 0.09 % solution Indications: Dry eyes, bilateral INSTILL 1 DROP INTO BOTH EYES TWICE A DAY 60each 11 11/18/2024 Active Start: 11-24-2023 End: 34-50-4736fupv 1 drop(s) into the eye(s) twice dailyCequa 0.09 % solution Indications: Dry eyes, bilateral INSTILL 1 DROP INTO BOTH EYES TWICE A DAY 60 each 11 11/24/2023 11/18/2024 DiscontinuedStart: 27-95-3993snig 1 drop(s) into the eye(s) twice dailyCequa 0.09 % solution Indications: Dry eyes, bilateral INSTILL 1 DROP INTO BOTH EYES TWICE A DAY 60each 11 11/13/2022 ActiveStart: 18-61-4700Zgbyw 0.09% ophthalmic solution Eye-Both, q12hr, Refill(s) 0, Dry eyes Start Date: 07/08/22 Status: Ordered Repeat number: 1Start: 05-06-8612Yedxk 0.09% ophthalmic solution Refill(s) 0 Start Date: 07/08/22 Status: OrderedStart: 86-77-4865Ldrbsacs MultiDose 0.05% ophthalmic emulsion 1 drop(s), QID, Refill(s) 0, Dry eyes Start Date: 10/17/21 Status: Ordereddexamethasone 1 mg/ml / tobramycin 3 mg/ml ophthalmic suspension (14 sources)Aminoglycoside Antibacterial, CorticosteroidStart: 97-23-0942rfdk 1 drop(s) into the eye(s) four times dailytobramycin-dexAMETHasone (Tobradex) ophthalmic suspension 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 INSTILL 1 DROP INTO RIGHT EYE 4 TIMES A DAY 5 mL 12 11/24/2024 ActiveStart: 30-59-2098mtrslmbtcxgxs-tobramycin Opth 0.1%-0.3% Susp Refill(s) 0, 5 mL, 0 Refill(s), INSTILL 1 DROP INTO RIGHT EYE 4 TIMES A DAY Start Date: 08/04/24 Status: Ordered Repeat number: 1Start: 34-73-7314LopcuVlo ST Eye-Both, q6hr, Refill(s) 0 Start Date: 08/04/24 Status: Ordered Repeat number: 1Start: 03-24-2024 End: 68-63-6649rrga 1 drop(s) into the eye(s) four times dailytobramycin- dexAMETHasone (Tobradex) ophthalmic suspension 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 INSTILL 1 DROP INTO RIGHT EYE 4 TIMES A DAY 5 mL 12 03/24/2024 11/24/2024 Discontinued1 ml diphenhydrAMINE hydrochloride 50 mg/ml cartridge (1 source)Histamine-1 Receptor AntagonistStart: 92-07-9135qxisfdiuapUJAYN (BENADRYL) injection 25 mgdocusate sodium 100 mg oral capsule (20 sources)Start: 80-61-0324glih 1 capsule by mouth twice daily as needed for constipationdocusate sodium 100 mg Cap 100 mg = 1 cap(s), Oral, BID, PRN for constipation, # 20 cap(s), Refills(s) 0 Start Date: 10/17/21 Status: Ordered Quantity: 20.0 Unit: cap(s) Repeat number: 1doxycycline hyclate 100 mg oral capsule (1 source)Tetracycline-class DrugStart: 09-03-2023 End: 21-65-8923nbet 1 capsule by mouth twice dailydoxycycline hyclate 100 mg Cap 100 mg = 1 cap(s), Oral, BID, X 10 day(s), # 20 cap(s), Refills(s) 0, Pharmacy: [facility], 157.5, cm, 09/03/23 9:45:00 EDT, Height/Length Dosing, 60.7, kg, 09/03/23 9:45:00 EDT, Weight Dosing Start Date: 09/03/23 Stop Date: 09/13/23 Status: OrderedDulera 100 mcg-5 mcg/inh inhalation aerosol (8 sources)Start: 04-12-2024 End: 87-29-2978afjy 2 puff(s) by inhalation twice dailyDulera 100 mcg-5 mcg/inh inhalation aerosol 2 puff(s), Inhalation, BID for 30 day(s), 13 gm, Refill(s) 6, [facility], 157, cm, 03/29/24 14:01:00 EST, Height/Length Dosing, 65.1, kg, 03/29/24 14:01:00 EST, Weight Dosing Start Date: 04/12/24 Stop Date: 11/08/24 Status: Ordered Quantity: 13.0 Unit: g Repeat number: 7 Indications: Unspecified asthma, uncomplicated;Start: 04-12-2024 End: 13-58-9713icka 2 puff(s) by inhalation twice dailyDulera 100 mcg-5 mcg/inh inhalation aerosol 2 puff(s), Inhalation, BID for 30 day(s), 13 gm, Refill(s) 6, [facility], 157, cm, 03/29/24 14:01:00 EST, Height/Length Dosing, 65.1, kg, 03/29/24 14:01:00 EST, Weight Dosing Start Date: 04/12/24 Stop Date: 11/08/24 Status: Ordered0.3 ml enoxaparin sodium 100 mg/ml prefilled syringe (1 source)Low Molecular Weight HeparinStart: 55-06-2115rryrnhvjbc Sodium (LOVENOX) injection 30 mgerythromycin 0.005 mg/mg ophthalmic ointment (5 sources)Macrolide, Macrolide AntimicrobialStart: 79-88-2227ypuuoxtypkqo (Romycin) 5 MG/GM ophthalmic ointment APPLY 1/2 INCH TO AFFECTED EYE(S) 3 TIMES A DAY 06/15/2023 Activefamotidine (PEPCID) 20 mg in sodium chloride (PF) 0.9 % 10 mL injection (1 source)Start: 55-04-2951ruwygrruev (PEPCID) 20 mg in sodium chloride (PF) 0.9 % 10 mL injectionferrous sulfate 325 mg delayed release oral tablet (20 sources)Start: 50-58-5281hhze 1 tablet by mouth once dailyferrous sulfate 325 mg oral enteric coated tablet 325 mg = 1 tab(s), Oral, Daily, # 30 tab(s), Refills(s) 5, Pharmacy: [facility], 157, cm, 07/03/21 16:18:00 EST, Height/Length Dosing, 61.5, kg, 07/03/21 16:18:00 EST, Weight Dosing Start Date: 07/03/21 Status: Ordered Quantity: 30.0 Unit: tab(s) Repeat number: 6 Indications: Anemia, unspecified;Ipratropium (20 sources)AnticholinergicStart: 76-13-8385wezazfwqjcl mcg, QID, Refills(s) 0 Start Date: 10/26/24 Status: Ordered Repeat number: 1Start: 96-61-3996cadq 2 spray(s) nasal route three times daily as neededipratropium (Atrovent) 0.03 % nasal spray GIVE 2 SPRAYS IN EACH NOSTRIL 3 TIMES DAILY NEEDED 04/15/2023 ActiveStart: 12-52-7101Yyblqyjj 0.03% [place] 2 spray(s), Nasal, TID Other (see comment), 1 EA, Refill(s) 1, [id number], 157, cm, 11/26/20 10:30:00 EDT, Height/Length Dosing, 68, kg, 11/26/20 10:30:00 EDT, Weight Dosing Start Date: 01/24/21 Status: Ordered Quantity: 1.0 Unit: EA Repeat number: 2 Indications: Vasomotor rhinitis;Start: 14-50-1505Jydtyoqx 0.03% [place] 2 spray(s), Nasal, TID Other (see comment), 1 EA, Refill(s) 1, [facility], 157, cm, 11/26/20 10:30:00 EDT, Height/Length Dosing, 68, kg, 11/26/20 10:30:00 EDT, Weight Dosing Start Date: 01/24/21 Status: Tqwtbiy71 hr isosorbide mononitrate 30 mg extended release oral tablet (20 sources)Nitrate VasodilatorStart: 17-08-5484rbhhoruuzl mononitrate 30 mg ER Tab 15 mg = 0.5 tab(s), Oral, BID, # 60 tab(s), Refills(s) 11, Pharmacy: [facility], 157.5, cm, 07/31/22 13:30:00 EDT, Height/Length Dosing, 61, kg, 07/31/2312:30:00 EDT, Weight Dosing Start Date: 07/31/22 Status: Ordered Start: 84-24-8338xpfd 15 mg by mouth once daily15 mg, Oral, DAILY, First dose on Fri06/17/22 at 1130, Until DiscontinuedStart: 82-89-4495ihcv 1 tablet by mouth once daily in the morningisosorbide mononitrate 30 mg ER Tab 30 mg = 1 tab(s), Oral, qAM, # 30 tab(s), Refills(s) 2, other reason (Rx) Start Date: 11/26/24 Status: Ordered Quantity: 30.0 Unit: tab(s) Repeat number: 3 Indications: Other forms of angina pectoris; Atherosclerotic heart disease of [place] coronary artery withoutangina pectoris;Start: 89-95-7678oykb 1 tablet by mouth twice dailyisosorbide mononitrate 30 mg ER Tab 30 mg = 1 tab(s), Oral, BID, # 60 tab(s), Refills(s) 11, Pharmacy: [id number], 157.5, cm, 07/31/22 13:30:00 EDT, Height/Length Dosing, 61, kg, 07/31/22 13:30:00 EDT, Weight Dosing Start Date: 07/31/22 Status: Orderedtake 15 mg by mouth once dailyISOSORBIDE MONONITRATE ER PO Take 15 mg by mouth daily 0 Activelisinopril 20 mg oral tablet (16 sources)Angiotensin Converting Enzyme InhibitorStart: 18-02-7474xdva 1 tablet by mouth twice dailylisinopril 20 mg Tab 20 mg = 1 tab(s), Oral, BID, # 90 tab(s), Refills(s) 0, Pharmacy: [facility], 157, cm, 11/26/20 10:30:00 EDT, Height/Length Dosing, 68, kg, 11/26/20 10:30:00 EDT, Weight Dosing Start Date: 02/13/21 Status: OrderedStart: 24-21-7026hark 1 tablet by mouth once dailylisinopril 20 mg Tab 20 mg = 1 tab(s), Oral, Daily, # 90 tab(s), Refills(s) 0 Start Date: 10/17/21 Status: OrderedLORazepam 0.5 mg oral tablet (12 sources)BenzodiazepineStart: 71-16-1358bwax 0.5 tablet by mouth every eight hours as needed for anxietyLORazepam 0.5 mg Tab See Instructions, Take 1/2 tablet by mouth every 8 hours as needed for anxiety. OARRS reviewed, no concerns. F41.9, # 5 tab(s), Refills(s) 0 Start Date: 11/27/20 Status: Orderedmed neb mask and tubing (1 source)Start: 53-95-2031nss neb mask and tubing med neb mask and tubing, See Instructions, 2 EA, 5, med neb mask and tubing, Supply, 157, cm, 10/26/24 14:43:00 EDT, Height/Length Dosing, 65.7, kg, 10/26/24 14:43:00 EDT, Weight Dosing Start Date: 10/27/24 Status: Ordered Quantity: 2.0 Unit: EA Repeat number: 6metoprolol tartrate 50 mg oral tablet (12 sources)beta-Adrenergic BlockerStart: 03-30-2020 End: 99-77-7739nuuo 1 tablet by mouth twice dailyNitroglycerin (20 sources)Nitrate VasodilatorStart: 60-94-0554fqjkmlxpcfctx Refills(s) 0 Start Date: 10/26/24 Status: Ordered Repeat number: 1Start: 30-25-2386sqsbbtshwkjts 0.4 mg sublingual Tab 0.4 mg = 1 tab(s), SubLingual, q5min, PRN for chest pain, # 100tab(s), Refills(s) 0 Start Date: 11/26/20 Status: Ordered Quantity: 100.0 Unit: tab(s) Repeat number: 1nitroglycerin 0.4 mg sublingual Tab (1 source)Start: 78-38-6150gwmfawjubaztt 0.4 mg sublingual Tab 0.4 mg = 1 tab(s), SubLingual, q5min, PRN for chest pain, # 100tab(s), Refills(s) 0 Start Date: 11/26/20 Status: Orderedondansetron 4 mg oral tablet (20 sources)Serotonin-3 Receptor AntagonistStart: 45-21-3274huqs 1 mg by mouth every eight hoursZofran 4 mg Tab mg tab(s), Oral, q8hr, Refills(s) 0 Start Date: 10/26/24 Status: Ordered Repeat number: 1Start: 56-76-4040lyaw 1 tablet by mouth every eight hoursondansetron 4 mg Tab 4 mg = 1 tab(s), Oral, q8hr, Refills(s) 0, Nausea/Vomiting Start Date: 10/17/21 Status: Ordered Repeat number: 1 ondansetron (ZOFRAN-ODT) disintegrating tablet 4 mg (1 source)Start: 25-48-0786eoeizgujfle (ZOFRAN-ODT) disintegrating tablet 4 mg oxyCODONE hydrochloride 5 mg oral tablet (1 source)Opioid AgonistStart: 06-20-2022 End: 43-65-2566qfcDBVKPR (ROXICODONE) immediate release tablet 5 mgStart: 06-20-2022 End: 65-83-9933baoROZGZK (ROXICODONE) immediate release tablet 5 mgpantoprazole 40 mg delayed release oral tablet (20 sources)Proton Pump InhibitorStart: 84-02-7359ocrg 1 tablet by mouth once dailyPantoprazole [address] Tab 40 mg = 1 tab(s), Oral, Daily, # 90 tab(s), Refills(s) 4, Pharmacy: [facility], 157, cm, 03/29/24 14:01:00 EST, Height/Length Dosing, 65.1, kg, 03/29/24 14:01:00 EST, Weight Dosing Start Date: 06/30/24 Status: Ordered Quantity: 90.0 Unit: tab(s) Repeat number: 5Start: 92-94-4818tmsk 1 tablet by mouth once dailypantoprazole 40 mg Oral EC Tab 40 mg, Oral, Daily, # 90 tab(s), Refills(s) 3, Pharmacy: [facility], 157, cm, 03/30/20 14:40:00 EST, Height/Length Dosing, 66.2, kg, 03/30/20 14:40:00 EST, Weight Dosing Start Date: 03/30/20 Status: Ordered Quantity: 90.0 Unit: tab(s) Repeat number: 4polyethylene glycol 3350 28164 mg powder for oral solution (20 sources)Osmotic LaxativeStart: 59-87-8540tqgbnyucnbxu glycol (GLYCOLAX) packet 17 gStart: 65-96-1822wknz 17 g by mouth once dailyMiraLax 17 gm, Oral, Daily, Refill(s) 0, Constipation Start Date: 10/17/21 Status: Ordered Repeat numb er: 1Start: 25-06-1978tcbv 17 g by mouth once dailyMiraLax 17 gm, Oral, Daily, Refill(s) 0, Constipation Start Date: 10/17/21 Status: OrderedStart: 10-17-2021 take 17 g by mouth once dailyMiraLax 17 gm, Oral, Daily, Refill(s) 0 Start Date: 10/17/21 Status: Orderedpolyvinyl alcohol 0.014 ml/ml ophthalmic solution (1 source)Start: 32-98-5785dabnptdjp alcohol (LIQUIFILM TEARS) 1.4 % ophthalmic solution 1 droppredniSONE 10 mg oral tablet (3 sources)Start: 63-86-6034wjcsivKNJK 10 mg Tab 0 = 1 -, Oral, As Directed, 2 tabs daily x3 days, then 1 tab daily x3 days., #9 tab(s), Refills(s) 0, Pharmacy: [facility], 157, cm, 10/07/24 11:19:00 EDT, He ight/Length Dosing, 65.7, kg, 10/07/24 11:19:00 EDT, Weight Dosing Start Date: 10/08/24 Status: Ordered Quantity: 9.0 Unit: tab(s) Repeat number: 1 Indications: Unspecified asthma with (acute) exacerbation;Start: 06-20-2022 End: 79-18-9932ucfy 1 tablet by mouth once dailypredniSONE (DELTASONE) 20 MG tablet Take 1 tablet by mouth daily for 3 doses 3 tablet 0 06/20/2022 06/23/2022 Activeprochlorperazine 10 mg oral tablet (1 source)PhenothiazineStart: 32-68-6520fdox 1 tablet by mouth every six hours12 hr ranolazine 500 mg extended release oral tablet (2 sources)Anti-anginalStart: 06-29-0506qvsb 1 tablet by mouth twice dailyRanexa 500 mg Tab-ER 500 mg = 1 tab(s), Oral, BID, # 60 tab(s), Refills(s) 2, Pharmacy: [facility], 157, cm, 02/05/24 14:56:00 EDT, Height/Length Dosing, 66.4, kg, 02/05/24 14:56:00 EDT, Weight Dosing Start Date: 02/05/24 Status: OrderedRefresh Optive (20 sources)Start: 44-06-3392qscx 1 drop(s) into the eye(s) three times daily Refresh Optive 1 drop(s), Eye-Both, TID, Refill(s) 0, Dry skin Start Date: 10/17/21 Status: OrderedStart: 20-59-0994ipfh 1 drop(s) into the eye(s) three times dailyRefresh Optive 1 drop(s), Eye-Both, TID, Refill(s) 0 Start Date: 10/17/21 Status: Ordered5 ml sodium chloride 9 mg/ml injection (3 sources)Start: .9 % sodium chloride infusionStart: 06-17-2022 sodium chloride flush 0.9 % injection 5-40 mLspironolactone 25 mg oral tablet (20 sources)Aldosterone AntagonistStart: 05-37-6579hdkj 1 tablet by mouth once dailyspironolactone 25 mg Tab 25 mg = 1 tab(s), Oral, Daily, # 90 tab(s), Refills(s) 4, [facility], cm, 03/29/24 14:01:00 EST, Height/Length Dosing, 65.1, kg, 03/29/24 14:01:00 EST, Weight Dosing Start Date: 06/30/24 Status: Ordered Quantity: 90.0 Unit: tab(s) Repeat number: 5 Ind ications: Essential (primary) hypertension;ticagrelor 90 mg oral tablet (20 sources)Start: 10-36-7684efyo 1 tablet by mouth twice dailyticagrelor 90 mg oral tablet 90 mg = 1 tab(s), Oral, BID, # 180 tab(s), Refills(s) 4, [facility], 157, cm, 03/29/24 14:01:00 EST, Height/Length Dosing, 65.1, kg, 03/29/24 14:01:00EST, Weight Dosing Start Date: 06/30/24 Status: Ordered Quantity: 180.0 Unit: tab(s) Repeat number: 5traZODone hydrochloride 50 mg oral tablet (20 sources)Serotonin Reuptake InhibitorStart: 18-29-1529xknc 1 tablet by mouth once daily at bedtimetraZODONE 50 mg Tab See Instructions, TAKE ONE TABLET BY MOUTH ONCE DAILY AT BEDTIME, # 14 EA, Refills(s) 24, Pharmacy: [facility], 157, cm, 10/26/24 14:43:00 EDT, Height/Length Dosing, 65.7, kg, 10/26/24 14:43:00 EDT, Weight Dosing Start Date: 11/25/24 Status: Ordered Quantity: 14.0 Unit: EA Repeat number: 1Start: 38-02-0781irhz 1 tablet by mouth at bedtimetraZODONE 50 mg Tab 50 mg = 1 tab(s), Oral, Bedtime, # 30 tab(s), Refills(s) 4, Pharmacy: [facility], 157, cm, 07/07/24 13:14:00 EST, Height/Length Dosing, 65.9, kg, 07/07/24 13:14:00 EST, Weight Dosing Start Date: 07/07/24 Status: Ordered Quantity: 30.0 Unit: tab(s) Repeat number: 5Start: 60-84-9736onhNDFDPY 50 mg Tab 25 mg = 0.5 tab(s), Oral, Bedtime, # 45 tab(s), Refills(s) 4, [facility]acy[facility], 157, cm, 03/29/24 14:01:00 EST, Height/Length Dosing, 65.1, kg, 03/29/24 14:01:00 EST, Weight Dosing Start Date: 06/30/24 Status: OrderedStart: 74-10-8759eowVGLXBQ 50 mg Tab 25 mg = 0.5 tab(s), Oral, Bedtime, Refills(s) 0 Start Date: 01/23/24 Status: Orde redStart: 84-69-3819fpwc 25 mg by mouth once daily as yobbwm30 mg, Oral, NIGHTLY PRN, Starting on Fri06/17/22 at 2100, Until Discontinued, SleepStart: 03-13-2021 traZODONE 50 mg Tab 25 mg = 0.5 tab(s), Oral, Once a day (at bedtime), # 15 tab(s), Refills(s) 5, Pharmacy: [facility], 157, cm, 03/13/21 13:41:00 EDT, Height/Length Dosing, 61, kg, 03/13/21 13:41:00 EDT, Weight Dosing Start Date: 03/13/21 Status: OrderedStart: 09-26-6874glym 1 tablet by mouth once daily at bedtimetraZODONE 50 mg Tab 50 mg = 1 tab(s), Oral, Once a day (at bedtime), # 15 tab(s), Refills(s) 5, Pharmacy: [facility], 157, cm, 03/13/21 13:41:00 EDT, Height/Length Dosing, 61, kg, 03/13/21 13:41:00 EDT, Weight Dosing Start Date: 03/13/21 Status: Orderedtake 25 mg by mouth once daily as needed for sleepTRAZODONE HCL PO Take 25 mg by mouth nightly as needed for Sleep 0 Active Trelegy Ellipta (2 sources)Start: 05-62-9742Kcyobrk Ellipta Refills(s) 0 Start Date: 01/03/25 Status: Ordered Repeat number: 1valACYclovir 1000 mg oral tablet (7 sources)Herpesvirus Nucleoside Analog DNA Polymerase Inhibitor, Herpes Simplex Virus Nucleoside Analog DNA Polymerase Inhibitor, Herpes Zoster Virus Nucleoside Analog DNA Polymerase InhibitorStart: 38-73-6703rbqg 1 tablet by mouth every eight hoursvalACYclovir (Valtrex) 1 g tablet TAKE ONE TABLET BY MOUTH EVERY 8 HOURS FOR 7 DAYS 02/07/2023 ActiveStart: 02-07-2023 End: 97-94-1777vnni 1 tablet by mouth every eight hoursvalacyclovir 1 g Tab 1 gm = 1 tab(s), Oral, q8hr, X 7 day(s), # 21 tab(s), Refills(s) 0, [facility], 157, cm, 02/07/23 13:05:00 EDT, Height/Length Dosing, 63.7, kg, 02/07/23 13:05:00 EDT, Weight Dosing Start Date: 02/07/23 Stop Date: 02/14/23 Status: Ordered Completed/Discontinued Medications MedicationDrug Class(es)DatesSig (Normalized)Sig (Original)aspirin 81 mg delayed release oral tablet (20 sources)Platelet Aggregation Inhibitor, Nonsteroidal Anti-inflammatory Drug Start: 62-49-1513lvch 81 mg by mouth once daily81 mg, Oral, DAILY, First dose on Fri06/17/22 at 1130, Until Discontinued Do not crush or break.Start: 04-03-2011 take 1 tablet by mouth once dailyaspirin 81 mg oral tablet 81 mg = 1 tab(s), Oral, Daily, tab(s), Refills(s) 0, Prophylaxis Start Date: 04/03/11 Status: Ordered Repeat number: 1labetalol hydrochloride 5 mg/ml injectable solution (1 source)beta-Adrenergic BlockerStart: 77-72-229817 mg, IntraVENous, EVERY 4 HOURS PRN, Starting on Fri06/17/22 at 0828, Until Discontinued, High Blood Pressure, sbp> 87942 ml magnesium sulfate 40 mg/ml injection (1 source)Start: 06-19-2022 End: 17-46-8772ynpcerrvh sulfate 2000 mg in 50 mL IVPB premixmethylPREDNISolone 40 mg injection (2 sources)CorticosteroidStart: 06-18-2022 End: 13-25-2941mpnzgbFWRORRTmgiof sodium (SOLU-MEDROL) injection 30 mgStart: 06-17-2022 End: 37-46-4043itvvjyREIFORAcrktu sodium (SOLU-MEDROL) injection 40 mgRestasis MultiDose 0.05% ophthalmic emulsion (1 source)Start: 29-54-3073Xwhwpxft MultiDose 0.05% ophthalmic emulsion 1 drop(s), QID, Refill(s) 0 Start Date: 10/17/21 Status:Orderedrosuvastatin calcium 10 mg oral tablet (1 source)HMG-CoA Reductase InhibitorStart: 11-22-2020 End: 27-54-1671qumi 1 tablet by mouth once dailyRosuvastatin 10 mg tablet Discontinued 10 MG PO Daily November 22, 2020 12:00am November 24, 2020 10:13am simvastatin 10 mg oral tablet (2 sources)HMG-CoA Reductase InhibitorStart: 11-22-2020 End: 25-49-8377aqiz 1 tablet by mouth at bedtimeSimvastatin 10 mg tablet Discontinued 10 MG PO Bedtime November 22, 2020 12:00am November 24, 2020 10:13am Problems Active Problems Problem ClassificationProblemDateDocumented DateEpisodic/ChronicAbdominal hernia (20 sources)Diaphragmatic hernia; Translations: [Diaphragmatic hernia without obstruction or gangrene]Onset: 95-41-9827TrsuqahkCdqwi cerebrovascular disease (20 sources)Cerebrovascular accidentOnset: 397338-57-4408HugvdtmZzmjj myocardial infarction (20 sources)Myocardial infarction; Translations: [Acute ST segment elevation myocardial infarction]74-27-1998MgucbfoAzuybam disorders (20 sources)Anxiety disorder; Translations: [Anxiety disorder, unspecified] Onset: 122795-55-4626DgewazoBnxhlu (20 sources)Asthma; Translations: [Exacerbation of asthma]Onset: 08-27-2023 28-75-6928FouafrxWdiamwbxs and vision defects (11 sources)Blindness AND/OR vision impairment level; Translations: [Blindness, one eye, unspecified eye]Onset: 79-17-6413AzbjxclGelihgg arrest and ventricular fibrillation (20 sources)Cardiac engnrj43-75-2278ZpaefbgAkpfqxj kidney disease (20 sources)Chronic kidney disease stage 3; Translations: [Chronic kidney disease, stage 3 (moderate)]Onset: 99-82-9464HzvgqqsCrhweed on above:linked HTN with CKD per OP CDI policy.Chronic obstructive pulmonary disease and bronchiectasis (20 sources)Chronic obstructive lung disease; Translations: [Chronic obstructive pulmonary disease, unspecified]Onset: 13-79-7354QnslgtzNgebgcefju heart failure; nonhypertensive (1 source)Heart failure, unspecified; Translations: [HEART FAILURE UNSPECIFIED] Onset: 57-55-9859LpyklcaTikodpfx atherosclerosis and other heart disease (20 sources)Coronary atherosclerosis; Translations: [Atherosclerotic heart disease of [place] coronary artery without angina pectoris]Onset: 01-22-2022 ChronicDeficiency and other anemia (1 source)Anemia due to chronic blood loss; Translations: [Iron deficiency anemia secondary to blood loss (chronic)]Onset: 63-02-1814AnumrahYfueoqpkps and other anemia (4 sources)Anemia due to blood wigw31-48-7620JqiqozuBlckubvnjy and other anemia (20 sources)Anemia; Translations: [Anemia, unspecified]Onset: 92-42-4953Qvxasqem Deficiency and other anemia (1 source)Iron deficiency anemia; Translations: [Iron deficiency anemia, unspecified]Onset: 47-04-0594JpjvtafaHvieoryl mellitus without complication (20 sources)Hyperglycemia; Translations: [Hyperglycemia, unspecified]Onset: 08-59-8235NochkcmeVwufyllo of white blood cells (20 sources)Leukocytosis; Translations: [Elevated white blood cell count, unspecified]Onset: 310698-08-9399YqcizpiSiktfryfh of lipid metabolism (20 sources)Mixed hyperlipidemia; Translations: [Mixed hyperlipidemia]Onset: 56-94-2474HbtovrvKhncltmqtk disorders (20 sources)Acid reflux; Translations: [Obstruction of esophagus]Onset: 988273-49-0678RjbigyrJhwbhnotv hypertension (20 sources)Essential hypertension; Translations: [Essential (primary) hypertension]Onset: 60-22-1618HvqssftItttitgwmvdyi symptoms and ill-defined conditions (20 sources)Female stress incontinence; Translations: [Mixed urinary incontinence]15-35-5313UmtakplNjdtopizstnnw symptoms and ill-defined conditions (20 sources)Blood in pkwaf89-83-2070OuywtmalAjjmngir (20 sources)Glaucoma; Translations: [Unspecified glaucoma]Onset: 07-31-2022 39-17-9080JakkkiuEftqtvtduzak with complications and secondary hypertension (4 sources)Hypertensive heart disease with heart failure; Translations: [Chronic kidney disease due to hypertension]Onset: 37-19-9029HuvzaqmRkzsffaeoqagx and screening for infectious disease (2 sources)Vaccination given; Translations: [Encounter for immunization]Onset: 29-62-6541BhnivghdSzh-Hodgkin`s lymphoma (1 source)Malignant lymphoma; Translations: [Non-Hodgkin lymphoma, unspecified, unspecified site]10-29-6562QqlnvehWmszfweuiyv chest pain (13 sources)Chest pain; Translations: [Other chest pain]Onset: 10-17-2021 EpisodicOcclusion or stenosis of precerebral arteries (20 sources)Carotid artery modcvoee57-70-7816IhvzxzwWavce aftercare (2 sources)Long-term current use of drug therapy; Translations: [Other penitentiary (current) drug therapy]Onset: 90-39-2359HoqwlxdjDhmvi aftercare (1 source)Follow-up status; Translations: [Encounter for follow-up examination after completed treatment for conditions other than malignant neoplasm]Onset: 38-01-5824SjsqpzykXxdgy and unspecified benign neoplasm (20 sources)History of polyp of -98-3402HwsfqektOptkn circulatory disease (20 sources)History of transient ischemic attack; Translations: [Personal history of transient ischemic attack (TIA), and cerebral infarction without residual deficits]Onset: 260278-30-1710EuknoxtoIvspx circulatory disease (20 sources)History of cerebrovascular accident; Translations: [Personal history of transient ischemic attack (TIA), and cerebral infarction without residual deficits]48-53-1421ZrxhirvxLcrni circulatory disease (3 sources)Disorder of respiratory system; Translations: [Other specified symptoms and signs involving the circulatory and respiratory systems]Onset: 59-07-6436KrycusakEdqlx circulatory disease (5 sources)Feeling of lump in uotxhg15-09-7804ZbhqeamiIxxrv eye disorders (20 sources)Pain in eye; Translations: [Ocular pain, unspecified eye]Onset: 56-72-2176LzbunbntNploj eye disorders (4 sources)Dystrophy of anterior cornea; 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]42-06-6657XfmhngyeDqdwk eye disorders (1 source)Dry eyes; Translations: [Dry eye syndrome of bilateral lacrimal glands]99-64-8685LspwlzzmOrzco eye disorders (1 source)Unspecified corneal ulcer, right eye; Translations: [Unspecified corneal ulcer, right eye]Onset: 45-23-7429TnkaydvwZyeid gastrointestinal disorders (20 sources)Dysphagia; Translations: [Dysphagia, unspecified]Onset: 01-30-2022 EpisodicOther gastrointestinal disorders (20 sources)Altered bowel pvwvhayf43-86-1907XekznfqwIatjf gastrointestinal disorders (1 source)H/O: gastrointestinal disease; Translations: [Personal history of other diseases of the digestive system]Onset: 69-02-5161RbvvyapqZpnfz gastrointestinal disorders (7 sources)History of stricture of rblrksdip39-20-3786DmwdwighKjmpn hematologic conditions (10 sources)History of -83-2515OicsevfpXlwkk hereditary and degenerative nervous system conditions (1 source)Blepharospasm; 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]57-50-4823IecvuntMllwm inflammatory condition of skin (20 sources)Hdexmvcttq59-38-8874OgxchisjZkoya injuries and conditions due to external causes (2 sources)Angioedema of tongue; Translations: [Angioneurotic edema, initial encounter]Onset: 71-57-5805DjxxtxbwYmosp injuries and conditions due to external causes (2 sources)Angioedema due to edmscmihtdz-bszhhljooe-rlhnht inhibitor; Translations: [Angioneurotic edema, initial encounter]Onset: 45-74-7735Yyudahki Other injuries and conditions due to external causes (1 source)History of fall; Translations: [History of falling]Onset: 10-07-2024 EpisodicOther liver diseases (20 sources)Alkaline phosphatase cuojyf61-86-3566GzhyrwjiZtsjr liver diseases (3 sources)Enzyme level - finding; Translations: [Abnormal levels of other serum enzymes]Onset: 25-08-5521HegnguvmZvavx lower respiratory disease (2 sources)Solitary nodule of lung; Translations: [Solitary pulmonary nodule] Onset: 26-16-3095BermhqpsYkfwk lower respiratory disease (1 source)Disorder of lung; Translations: [Other disorders of lung]Onset: 35-27-8931VugfawcsRrgnx lower respiratory disease (1 source)Dyspnea; Translations: [Dyspnea, unspecified]Onset: 59-13-9474Ambeimds Other non-traumatic joint disorders (2 sources)Shoulder joint pain; Translations: [Pain in unspecified shoulder] Onset: 33-06-8903GugpvnolOvjit non-traumatic joint disorders (20 sources)Shoulder bpnd95-81-1489MvwusinoTqobz nutritional; endocrine; and metabolic disorders (20 sources)Overweight in adulthood with body mass index of 25 or more but less than 30; Translations: [Body mass index (BMI) 25.0-25.9, adult]Onset: 10-17-2021 EpisodicOther nutritional; endocrine; and metabolic disorders (14 sources)Overweight; Translations: [Overweight]Onset: 15-61-9583LahklvnoMhtmq skin disorders (7 sources)Lesion of skin of jspd16-36-4745OmztomshFkadp upper respiratory disease (20 sources)Vasomotor nkkzgqxy77-36-7435KjnvjktKkqac upper respiratory infections (3 sources)Acute upper respiratory infection; Translations: [Acute upper respiratory infection, unspecified]Onset: 46-79-1570JjdqfvwxPmbdvkrhz (20 sources)Monoparesis - crc48-10-1635CfhszikDfkiralqx heart disease (2 sources)Pulmonary hypertension; Translations: [Pulmonary hypertension, unspecified]Onset: 44-33-4147RjxqjzaFidnnbpd codes; unclassified (20 sources)Insomnia; Translations: [Insomnia, unspecified]Onset: 05-01-2022 02-74-8655PahofdlaNcppiytd codes; unclassified (20 sources)Swelling - edema - bcpjfal47-08-5047AvqpijzlMpycfrkr codes; unclassified (3 sources)Body mass index 20-24 - normal; Translations: [Body mass index (BMI) 24.0-24.9, adult]Onset: 95-15-5125OqwscokjKqepmjfhwkf failure; insufficiency; arrest (adult) (8 sources)Acute respiratory failure; Translations: [Acute respiratory failure with hypoxia]Onset: 25-60-1292CjqbxksgJjornudkfgs; intervertebral disc disorders; other back problems (20 sources)Neck pain; Translations: [Cervicalgia]Onset: 71-84-5488Jpirxjkc Superficial injury; contusion (3 sources)Injury of eye region; Translations: [Injury of conjunctiva and corneal abrasion without foreign body, right eye, initial encounter]Onset: 43-13-6177LtqvepdpXaustpzigyff (5 sources)Hxr-dzkuvr65-51prjtwb81-98-2330Fzkorzgrejmj (20 sources)Seborrheic aaspyfidh70-28-5980Xgozunohqfph (1 source)Body mass index 20-24 - rizwuj69-32-4361Zgzbmcwspjid (20 sources)Pain of knee cjeqbj73-33-3379Mjzstngtrdix (10 sources)Contusion of left lower fkfu05-43-0952Darrpzpvbxvy (8 sources)Mild pulmonary pubrflmjcoew52-50-1071Pezwwiy on above:added per 10/06/2024 query response.Unclassified (4 sources)Patient encounter rtauxj08-31-0246Sakdcwy tract infections (5 sources)Acute urinary tract nsvypfaid63-00-6530VvaannleRxwqg infection (6 sources)Herpes zoster without complication; Translations: [Zoster without complications]Onset: 53-75-1823GinmvcbmNwbid infection (1 source)COVID-19; Translations: [COVID-19]Onset: 06-18-2022 Past or Other Problems Problem ClassificationProblemDateDocumented DateEpisodic/ChronicE Codes: Adverse effects of medical drugs (3 sources)Adverse effect of mpqvimfudvx-nyogrhjeow-hihnaf inhibitors, initial encounter; Translations: [Adverse effect of roxvwbuqdgf-toqiigdcau-wzkrsa inhibitors, initial encounter]Onset: 37-78-3290NybvgpqqArt-Hodgkin`s lymphoma (1 source)Personal history of non-Hodgkin lymphomas; Translations: [PERSONAL HX NON-HODGKIN LYMPHOMAS]Onset: 36-94-5138KamfxiauEqjco aftercare (1 source)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; Translations: [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]Onset: 62-61-6388XjoqcsojZhtms aftercare (1 source)Other penitentiary (current) drug therapy; Translations: [OTH [facility] CURRENT DRUG THERAPY]Onset: 38-96-0035StoosgzsFllcm circulatory disease (1 source)Personal history of transient ischemic attack (TIA), and cerebral infarction without residual deficits; Translations: [PERS HX TIA AND CI NO RESID DEFICIT]Onset: 47-03-1652SnffwkyvUtopw injuries and conditions due to external causes (6 sources)Angioneurotic edema, initial encounter; Translations: [Angioneurotic edema, initial encounter]Onset: 21-64-3127AgnurwdzPrytdbhdbvqy (7 sources)blood clots( Confirmed )77-37-3966Fqoqjcitmwew (20 sources)blood yduxt96-02-0945Whknciqsmdet (1 source)Patient counseled; Translations: [Encounter for immunization safety counseling]Onset: 04-11-2023 Results Test NameValueInterpretationReference RangeFacilityGastroenterology Office/Clinic Noteon 49-34-2129Pxfphtgxwxpirlul Office/Clinic Note Gastroenterology Office/Clinic Note Chief Complaint follow up to EGD HPI Staff Established patient is a(n) 89 year old female who presents today for a follow up to EGD on 12/09/24. Any dysphagia? yes, some. Any blood thinners? Brilinta and aspirin Any GLP-1 agonists? no MBS 11/09/24: IMPRESSION: MILDLY ABNORMAL MODIFIED BARIUM SWALLOW. A FULL REPORT WILL BE MADE BY THE SPEECH PATHOLOGY TEAM. 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 Esophageal landmarks identified, torturous esophagus noted 2 Large hiatal hernia noted, mild Schatzki ring at the GE junction, estimated diameter about 18 mm,dilated with TTS balloon, 18-19-20, dilated to 20 mm with mild resistance, post dilation there was mild mucosal disruption, no wall defect 3. Normal examined stomach 4. Normal examined duodenum, although given the large hernia could not go beyond duodenal bulb Recommendations: -Liquid then soft diet today, advance as tolerated tomorrow, Avoid retching -Resume home medications, resume Friday Brilinta if no signs of bleeding -Follow-up in GI clinic as needed Assessment/Plan 1. Dysphagia (R13.10: Dysphagia, unspecified) Hard to push foods down, feels it gets stuck in upper esophagus Solids and liquids C/o globus sensation Had previous dilation, relief afterwards Has some coughing, choking Sometimes she has coughing when she drinks Hx of stroke EGD 02/2023: Very large hiatal hernia noted with majority of the stomach located above the diaphragm, Mild Schatzki ring was noted at the GE junction. Dilation was performed using TTS balloon 18-19-20 mm, dilation was perfumed to 20 mm EGD 11/2024: Torturous esophagus. Large hiatal hernia noted, mild Schatzki ring at the GE junction, estimated diameter about 18 mm, dilated with TTS balloon, 18-19-20, dilated to 20 mm. MBS 11/2024: MILDLY ABNORMAL MODIFIED BARIUM SWALLOW. Minimal improvement since last visit Discussed how torturous esophagus and large hiatal hernia can contribute to dysphagia Discussed risks vs benefits of surgery for hiatal hernia, will hold off for now. Can consider dilation again if needed in the future Advised patient to follow speech therapy recommendations 2. History of CVA in adulthood (Z86.73: Personal history of transient ischemic attack (TIA), and cerebral infarction without residual deficits) Taking Brilinta 3. Globus sensation (R09.89: Other specified symptoms and signs involving the circulatory and respiratory systems) IKennedi, personally scribed for Wolf Peres on 02/24/2025 12:22:32. . Follow-up With When Contact Information Larisa HINOJOSA, Wolf Arana, GAS, MED Only if needed [address] [facility], [address] [phone] Additional Instructions: Problem List/Past Medical History Ongoing Acute hypoxemic respiratory failure Anemia Anxiety disorder At risk for falls Benign hypertension with chronic kidney disease, stage III Blind right eye CAD (coronary artery disease) Carotid artery stenosis Change in bowel habits Chronic kidney disease (CKD), stage III (moderate) COPD type B Dysphagia Edema Elevated alkaline phosphatase level Eye pain Female stress incontinence Globus sensation History of colon polyps History of CVA in adulthood History of esophageal stricture HTN - Hypertension Hyperglycemia Hyperlipidemia Insomnia Intertrigo Knee pain, right Large hiatal hernia Leg weakness Leukocytosis Lumbar radiculopathy Mild pulmonary hypertension Moderate persistent asthma Neck pain Seborrheic keratoses Shoulder pain Urinary incontinence, mixed Vasomotor rhinitis Historical Acid reflux Appendectomy blood clots BMI 25.0-25.9,adult Cardiac arrest COPD Glaucoma H/O: TIA HEMATURIA [place] - myocardial infarction Stage 3 chronic kidney disease STEMI - ST elevation myocardial infarction Stroke Procedure/Surgical History Esophagogastroduodenoscopy (12/09/2024), Cardiac catheterization, left heart (01/21/2024), PCI - Percutaneous coronary intervention (01/21/2024), Colonoscopy (03/18/2022), Colonoscopy (03/18/2022), Radiofrequency ablation of medial branch of cervical nerve (more content not included)...[facility] CenterComment [facility]:Result Comment: Electronically Signed By: Larisa HINOJOSA, Wolf Arana\.br\Date and Time Signed: 02/25/25 09:20 EDT\.br\Electronically Co-Signed By: Kennedi Mazariegos MA\.br\Date and Time Co-Signed: 02/24/25 12:31 EDTEye Cultureon [id number] CultureORGANISM: Staphylococcus epidermidis (O:STAEPI) Quantity of Growth Rare Growth Aerobic SANG Charge (PCMIC38) SUSCEPTIBILITY ORGANISM: O:STAEPI ANTIBIOTIC INTERPRETATION SANG Azithromycin R >4 Ciprofloxacin S <1 Clindamycin R >4 Daptomycin S <0.5 Levofloxacin S <1 Linezolid S <1 Oxacillin R >2 Penicillin R >2 Tetracycline S <4 Trimethoprim/Sulfamethoxazole S Vancomycin S 1 S = SUSCEPTIBLE I = INTERMEDIATE R = RESISTANT BLANK = DATA NOT AVAILABLE, OR DRUG NOT ADVISABLE OR TESTED R* = RESISTANCE DUE TO EXTENDED SPECTRUM BETA-LACTAMASES ESBL = EXTENDED SPECTRUM BETA-LACTAMASE TFG = THYMIDINE-DEPENDENT STRAIN JESSICA = BETA-LACTAMASE POSITIVE IB = INDUCIBLE BETA-LACTAMASE. APPEARS IN PLACE OF 'S' WITH SPECIES KNOWN TO POSSESS INDUCIBLE BETA-LACTAMASES. POTENTIALLY THEY MAY BECOME RESISTANT TO ALL B-LACTAM DRUGS. PERFORMED BY: [place] [address] PATHOLOGIST SENIOR SALES COMPENSATION ANALYST KIRSTEN CASSIDY M.D.[facility] Physician GroupComment on above: Performed By: #### CUEYE #### [place] [address] [place] #### MYC CULT #### [facility] ,Fungus # 2 identified in Unspecified specimen by CultureOrdered By: Ross Dolan on [id number] identified # 2 Cx Nom (Unsp spec)/[facility] identified in Unspecified specimen by Culture Ordered By: Ross Dolan on [id number] identified # 3 Cx Nom (Unsp spec)/[facility] # 4 identified in Unspecified specimen by CultureOrdered By: Ross Dolan on 44-33-2718Ekazmg identified # 4 Cx Nom (Unsp spec)/[facility] (Mycology) Cultureon [id number] (Mycology) CultureFinal report Comment No yeast or mold isolated after 4 weeks. Performed at: [facility] LabCarrie [place] [id number] Bird Raiser: Rodrigo Negrete PhD, Phone: [phone] PERFORMED BY: [place] [address] PATHOLOGIST SENIOR SALES COMPENSATION ANALYST KIRSTEN CASSIDY M.D.[facility] Physician GroupComment on above: Performed By: #### CUEYE #### [address] #### MYC CULT #### [facility] ,No Panel InformationOrdered By: Ross Dolan on [id number] [facility] WestAmbulatory Visit Summaryon [id number] Visit SummaryAmbulatory Visit Summary PIEDAD ALATORRE Migel :1935 Visit Date:01/11/2025 Ambulatory Visit Instructions Your Diagnosis CAD (coronary artery disease) COPD type B Chronic kidney disease (CKD), stage III (moderate) Benign hypertension with chronic kidney disease, stage III Anemia History of CVA in adulthood Hyperlipidemia Hyperglycemia Blind right eye Moderate persistent asthma Adult BMI 27.0-27.9 kg/sq m Overweight Insomnia These Are Your Goals B/P will be in normal range for patient Interventions: Low impact exercises: 2 arm and 2 legs exercises- 10 repetitions daily of each or walk in hallway -Progressing Low sodium diet - Progressing Medication Compliance [...] prescribing physician if questions or concerns acetaminophen albuterol (Albuterol (Eqv-Proventil HFA) 90 mcg/inh inhalation aerosol) albuterol (albuterol 0.083% Inh Melba 3 mL) amlodipine (amLODIPine 10 mg Tab) aspirin (aspirin 81 mg oral tablet) atorvastatin (atorvastatin 80 mg Tab) carvedilol (carvedilol 25 mg Tab) clonidine (cloNIDine 0.1 mg tab) cycloSPORINE ophthalmic (Cequa 0.09% ophthalmic solution) dexamethasone-tobramycin ophthalmic (dexamethasone-tobramycin Opth 0.1%-0.3% Susp) docusate (docusate sodium 100 mg Cap) ferrous sulfate (ferrous sulfate 325 mg oral enteric coated tablet) fluticasone/umeclidinium/vilanterol (Trelegy Ellipta) ipratropium nasal (Atrovent 0.03% [place]) isosorbide mononitrate (isosorbide mononitrate 30 mg ER Tab) nitroglycerin (nitroglycerin 0.4 mg sublingual Tab) ondansetron (Zofran 4 mg Tab) pantoprazole (Pantoprazole [address] Tab) polyethylene glycol 3350 (MiraLax) spironolactone (spironolactone 25 mg Tab) ticagrelor (ticagrelor 90 mg oral tablet) trazodone (traZODONE 50 mg Tab) Procedures Performed Esophagogastroduodenoscopy (12/09/2024), Cardiac catheterization, left heart (01/21/2024), PCI - Percutaneous coronary intervention (01/21/2024), Colonoscopy (03/18/2022), Colonoscopy (03/18/2022), Radiofrequency ablation of medial branch of cervical nerve using fluoroscopic guidance (08/24/2018), cervical facet Medial Branch Block (05/25/2018), Cervical Facet Medial Branch Block (04/20/2018), lumbar facet medial branch block (11/24/2017), Radiofrequency ablation of medial branch of lumbar nerve using fluoroscopic guidance (09/29/2017), Lumbar Facet Medial Branch Block (09/08/2017), Injectionof facet joint using fluoroscopic guidance (06/23/2017), Angioplasty (09/09/2014), Colonoscopy (10/10/2010), Heart Cath. (05/12/1994), Angioplasty of left leg artery, Appendectomy, Bunionectomy, Carotid angiogram, Carotid endarterectomy, Cataract extraction, D&C - Dilatation and curettage, EGD, Esophagogastroduodenoscopy, kidney artery left stent placement, Removal of ovarian cyst, Stents, bilateral legs. Discharge Vitals Temperature (Oral) 36.5 ???C Heart Rate (Peripheral) 72 Respiratory Rate 20 Blood Pressure 128/60 Height 157 cm Height 62 in Weight 67.2 kg Weight 148.15 lb BMI 27.26 What to do next Scheduled Follow-Up Appointments Friday 9:30 AM EDT With: Larisa HINOJOSA, Wolf Arana Where: [facility] [address] [facility] [address] [place] [address]24 11:20 AM EST With: Deonte ROSARIO MD Where: [facility] [address] [place] [address]- Friday2025 3:00 PM EST With: Antonio Nguyen MD Where: Cardiology Clinic Friday2025 11:00 AM EDT With: Where: [facility] [address] [place] [address]- You Need to Schedule the Following Appointments Follow Up with PAULO HINOJOSA, ROCKY Diaz When: In 3 months Where: [facility] [address], [address] [place] [address]- You Need to Complete the Following CBC w/ Auto Diff, Blood, Routine collect, 01/11/25, Order for future visit, Lab Collect, Chronic kidney disease (CKD), stage III (moder (more content not included)...[facility] Medicine Office/Clinic Note on [id number] Medicine Office/Cl[facility] NoteSaint [facility]inic Note Chief Complaint Patient here for 3 month f/u on htn, chol, copd--no labs done. [facility] Staff Medicare wellness: done 2024 Last routine labs: 06-30-2024 Colonoscopy (45-75yo): 03-19-2022 History of Present Illness Here for med follow up. She states she is feeling well. She still gets SOB often. She denies CP. She sees cardiology and pulmonology and their recent notes are reviewed. 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 She no longer sees ophthalmology. Will not back to Dr. Amezquita. She has COPD and moderate asthma. She feels the Trelegy is helping. She has htn. She is tolerating her meds well. Review of Systems PHQ Score Initial Depression Screen Score: 0 SCORE Physical Exam Vitals & Measurements T: 36.5 ???C(Oral) HR: 72(Peripheral) RR: 20 BP: 128/60 SpO2: 96% HT: 62 in HT: 157 cm WT: 67.2 kg WT: 148.15 lb BMI: 27.26 General: Well developed, well nourished, in no acute distress Eyes: _R eye scarred, EOMI Ears: not assessed Nose: No deformity, discharge, inflammation, or lesions Mouth: MMM. Oropharynx and posterior pharynx without lesions or exudates. Tongue WNL Neck: _no bruit Lungs: Clear but diminished breath sounds Cardio: _RRR, 1/6 murmur Abdomen: Soft, non-distended, non-tender Musculoskeletal: _ambulates with walker Extremity: No clubbing, cyanosis or edema. Neurologic: _no focal deficits noted. Skin: _few bruises on arms. Mental Status: _calm, cooperative Assessment/Plan 1. CAD (coronary artery disease) (I25.10: Atherosclerotic heart disease of [place] coronary artery without angina pectoris) stable cardiology note reviewed stay on asa Ordered: Lipid Panel 2. COPD type B (J44.9: Chronic obstructive pulmonary disease, unspecified) stay on Trelegy follow up with pulm 3. Chronic kidney disease (CKD), stage III (moderate) (N18.30: Chronic kidney disease, stage 3 unspecified) no labs done Ordered: CBC w/ Auto Diff Comprehensive Metabolic Panel 4. Benign hypertension with chronic kidney disease, stage III (I12.9: Hypertensive chronic kidney disease with stage 1 through stage 4 chronic kidney disease, or unspecified chronic kidney disease) stay on amlodipine, carvedilol, spironolactone, clonidine Ordered: CBC w/ Auto Diff Comprehensive Metabolic Panel 5. Anemia (D64.9: Anemia, unspecified) Ordered: Ferritin Folate Level Iron Level Reticulocyte Count Vitamin B12 Level 6. History of CVA in adulthood (Z86.73: Personal history of transient ischemic attack (TIA), and cerebral infarction without residual deficits) stay on asa 7. Hyperlipidemia (E78.2: Mixed hyperlipidemia) stay on atorvastatin Ordered: Lipid Panel 8. Hyperglycemia (R73.9: Hyperglycemia, unspecified) keep on diet Ordered: HgbA1c 9. 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 Moderate persistent asthma (J45.40: Moderate persistent asthma, uncomplicated) pulmichelle wants to start her on Nucala 11. Adult BMI 27.0-27.9 kg/sq m (Z68.27: Body mass index [BMI] 27.0-27.9, adult) The standard range for ages 18 and older is >=18.5 and < 25 kg/m2. Your BMI today was above this range, this falls in the overweight to obese category and there are medical benefits to weight loss. We can offer counselling, referral, and/or medical support in addressing this problem. Your BMIand weight management will be followed at subsequent visits. 12. Overweight (E66.3: Overweight) 13. Insomnia (G47.00: Insomnia, unspecified) stay on trazodone Orders: Misc Prescription, med neb mask and tubing, See Instructions, 2 EA, 5, med neb mask and tubing, Supply, 157, cm, 10/26/24 14:43:00 EDT, Height/Length Dosing, 65.7, kg, 10/26/24 14:43:00 EDT, Weight Dosing Follow-up With When Contact Information PAULO HINOJOSA, Deonte Turpin, ROCKY In 3 months [facility] [address], [address] [place] [id number]- Additional Instructions: Patient Education High Cholesterol Problem List/Past Medical History Ongoing Acute hypoxemic respiratory failure Anemia Anxiety disorder At risk for falls Benign hypertension with chronic kidney disease, stage III Blind right eye CAD (coronary artery disease) Carotid artery stenosis Change in bowel habits Chronic kidney disease (CKD), stage III (moderate) COPD type B Dysphagia Edema Elevated alkaline phosphatase level Eye pain Female stress incontinence Globus sensation History of colon polyps History of CVA in adulthood History of esophageal stricture HTN - Hypertension Hyperglycemia Hyperlipidemia Insomnia Intertrigo Knee pain, right Large hiatal hernia Leg weakness Leukocytosis Lumbar radiculopathy Mild pulmonary hypertension Moderate persistent asthma Neck pain Seborrheic keratoses Shoulder pain Urinary incontinence, mixed Vasomotor rhinitis Historical Acid reflux Appe (more content not included)...[facility] Center[facility] on above:Result Comment: Electronically Signed By: PAULO HINOJOSA, Deonte Turpin\.br\Date and Time Signed: 01/11/25 12:06 EDTPulmonology Office/Clinic Noteon 01-05-2025 Pulmonology Office/Clinic NotePulmonology Office/Clinic Note Chief Complaint 4 week f/u History of Present Illness Since her last visit she was started on Trelegy instead of Dulera and she feels that her symptoms are better, still with intermittent cough and dyspnea on exertion. Her pulmonary function test showedmoderately severe obstructive lung disease with a component of restriction total lung capacity 80%.Her FEV1 55% and in comparison to 2018 at that time she had baseline FEV1 50% then significant improvement to bronchodilator 40% improvement to 80% FEV1. She has decreased lung diffusion capacity 59%improved from 21% in 2018. Her imaging is not suggestive of interstitial lung disease on chest x-ray and prior CT chest. She has eosinophil 300 on October 07, 2024 Review of Systems PHQ Score Initial Depression Screen Score: 0 SCORE 12 point system review was done and negative except what mentioned in HPI Physical Exam Vitals & Measurements HR: 73(Peripheral) BP: 129/63 SpO2: 97% HT: 62 in HT: 157 cm WT: 148.15 lb WT: 67.2 kg BMI: 27.26 General: no distress Skin: warm, dry Head: no trauma, normocephalic Neck: Trachea midline , no adenopathy, no tenderness Eye: normal conjunctiva, sclera clear ENMT: oral mucosa moist Cardiovascular: regular rate and rhythm, normal Respiratory: Lungs CTA ,respirations non labored Chest wall: no deformity. Gastrointestinal: soft , non distended , no tenderness, no guarding. Extremities: no deformity, no trauma Neurological: nonfocal Assessment/Plan 1. Severe persistent asthma (J45.50: Severe persistent asthma, uncomplicated) The patient had significant response to bronchodilator on previous PFTs in 2018 she does have obstructive lung disease on her obstructive lung disease on her current PFTs but no response to bronchodilators this time. She is doing better on Trelegy but still not well-controlled. She does have elevated eosinophils, she was hospitalized in September for asthma exacerbation. She will benefit from Nucala injection once a month which can be administered in the facility. 2. COPD mixed type (J44.9: Chronic obstructive pulmonary disease, unspecified) She never smoked but she does have fixed obstruction likely from longstanding asthma 3. Chronic coronary artery disease (I25.10: Atherosclerotic heart disease of the [place] coronary arterywithout angina pectoris) 4. Diastolic congestive heart failure (I50.30: Unspecified diastolic (congestive) heart failure) Her dyspnea on exertion is likely multifactorial there is component of cardiovascular disease she is managed by cardiology Follow-up No qualifying data available 3 months Problem List/Past Medical History Ongoing Acute hypoxemic respiratory failure Anemia Anxiety disorder At risk for falls Benign hypertension with chronic kidney disease, stage III Blind right eye BMI 26.0-26.9,adult CAD (coronary artery disease) Carotid artery stenosis Change in bowel habits Chest tightness Chronic kidney disease (CKD), stage III (moderate) Contusion of left leg COPD type B Dysphagia Edema Elevated alkaline phosphatase level Encounter for examination following treatment at hospital Eye pain Female stress incontinence Globus sensation History of colon polyps History of CVA in adulthood History of esophageal stricture HTN - Hypertension Hyperglycemia Hyperlipidemia Insomnia Intertrigo Knee pain, right Large hiatal hernia Leg weakness Leukocytosis Lumbar radiculopathy Mild pulmonary hypertension Moderate persistent asthma Neck pain Seborrheic keratoses Shoulder pain Urinary incontinence, mixed Vasomotor rhinitis Historical Acid reflux Appendectomy blood clots BMI 25.0-25.9,adult Cardiac arrest COPD Glaucoma H/O: TIA HEMATURIA [place] - myocardial infarction Stage 3 chronic kidney disease STEMI - ST elevation myocardial infarction Stroke Procedure/Surgical History Esophagogastroduodenoscopy (12/09/2024), Cardiac catheterization, left heart (01/21/2024), PCI - Percutaneous coronary intervention (01/21/2024), Colonoscopy (03/18/2022), Colonoscopy (03/18/2022), Radiofrequency ablation of medial branch of cervical nerve using fluoroscopic guidance (08/24/2018), cervical facet Medial Branch Block (05/25/2018), Cervical Facet Medial Branch Block (04/20/2018), lumbar facet medial branch block (11/24/2017), Radiofrequency ablation of medial branch of lumbar nerve using fluoroscopic guidance (09/29/2017), Lumbar Facet Medial Branch Block (09/08/2017), Injectionof facet joint using fluoroscopic guidance (06/23/2017), Angioplasty (09/09/2014), Colonoscopy (10/10/2010), Heart Cath. (05/12/1994), Angioplasty of left leg artery, Appendectomy, Bunionectomy, Carotid angiogram, Carotid endarterectomy, Cataract extraction, D&C - Dilatation and curettage, EGD, Esophagogastroduodenoscopy, kidney artery left stent placement, Removal of ovarian cyst, Stents, bilateral legs. Medications acetaminophen, 325 mg, Ora (more content not included)...[facility] CenterComment on above:Result Comment: Electronically Signed By: Timmy HINOJOSA, Migdalia Medina\.br\Date and Time Signed: 01/05/25 11:17 EDTHeart and Vascular Office/Clinic Noteon [id number] and Vascular Office/Clinic NoteHeart and Vascular Office/Clinic Note Chief Complaint 6 week follow up History of Present Illness Piedad is a pleasant 89-year-old female who is a former patient of Dr. Catherine's. Patient history of CAD with prior PCI 11/2020. Patient most recent echo from 01/2022 showed normal EF of 65%, moderatetricuspid regurgitation with mild pulmonary hypertension. 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 This was stabilized with RAMÓN x 3 left main artery and LAD. Patient recovered well. She is coming for follow-up visit. Overall she is feeling better. She continues to be short of breath. It seems she did have recent PFTs that showed worsening function in her lung situation. She is following with them postpartum rn. Blood pressure remains to be labile. No chest pain. Review of Systems No chest pain chronic shortness of breath, no dizziness, no dizziness or presyncope pleasant Heart regular rate rhythm S1-S2. Lungs decreased breath sounds. Abdomen nontender. Extremities no edema Physical Exam Vitals & Measurements HR: 78(Peripheral) RR: 18 BP: 156/75 SpO2: 97% HT: 157 cm HT: 62 in WT: 148.15 lb WT: 67.2 kg BMI: 27.26 Pleasant no acute distress Heart regular rhythm S1-S2. Lungs decreased breath sounds. Abdomen nontender. Extremities no edema Assessment/Plan 1. CAD (coronary artery disease) (I25.10: Atherosclerotic heart disease of the [place] coronary artery without angina pectoris) Patient has history of CAD with RAMÓN x 1 left main artery and RAMÓN x 2 to LAD and 01/2024. Patient also had prior PCI in 11/2020 through [facility]. Patient reports that she is compliant with all medications. I would recommend to continue current management. She needs to continue dual antiplatelets for 1 year and potentially after 1 year we could switch her from Brilinta to Plavix if we think that Brilinta could be contributing to her shortness of breath?. Continue aggressive risk factors management 2. Hyperlipidemia (E78.2: Mixed hyperlipidemia) On statin 3. Shortness of breath (R06.02: Shortness of breath) Likely multifactorial related to hypertensive heart disease/deconditioning/underlying lung disease.Patient did have recent PFT showing worsening lung function. I would recommend to continue current m anagement. Follow-up with the postpartum rn. Potentially in January 2025 we could switch her Brilinta to Plavix 75 mg daily and continue aspirin 81 mg daily if there is concern about Brilinta causing shortness of breath 4. Hypertension (I10: Essential (primary) hypertension) Adjust medications as needed. Advised the patient to increase her Norvasc to 10 mg p.o. daily Follow-up in 6 months Follow-up No qualifying data available Problem List/Past Medical History Ongoing Acute hypoxemic respiratory failure Anemia Anxiety disorder At risk for falls Benign hypertension with chronic kidney disease, stage III Blind right eye BMI 26.0-26.9,adult CAD (coronary artery disease) Carotid artery stenosis Change in bowel habits Chest tightness Chronic kidney disease (CKD), stage III (moderate) Contusion of left leg COPD type B Dysphagia Edema Elevated alkaline phosphatase level Encounter for examination following treatment at hospital Eye pain Female stress incontinence Globus sensation History of colon polyps History of CVA in adulthood History of esophageal stricture HTN - Hypertension Hyperglycemia Hyperlipidemia Insomnia Intertrigo Knee pain, right Large hiatal hernia Leg weakness Leukocytosis Lumbar radiculopathy Mild pulmonary hypertension Moderate persistent asthma Neck pain Seborrheic keratoses Shoulder pain Urinary incontinence, mixed Vasomotor rhinitis Historical Acid reflux Appendectomy blood clots BMI 25.0-25.9,adult Cardiac arrest COPD Glaucoma H/O: TIA HEMATURIA [place] - myocardial infarction Stage 3 chronic kidney disease STEMI - ST elevation myocardial infarction Stroke Procedure/Surgical History Esophagogastroduodenoscopy (12/09/2024), Cardiac catheterization, left heart (01/21/2024), PCI - Percutaneous coronary intervention (01/21/2024), Colonoscopy (03/18/2022), Colonoscopy (03/18/2022), Radiofrequency ablation of medial branch of cervical nerve using fluoroscopic guidance (08/24/2018), cervical facet Medial Branch Block (05/25/2018), Cervical Facet Medial Branch Block (04/20/2018), lumbar facet medial branch block (11/24/2017), Radiofrequency ablation of medial branch of lumbar nerve using fluoroscopic guidance (09/29/2017), Lumbar Facet Medial Branch Block (09/08/2017), Injectionof facet joint using fluoroscopic guidance (06/23/2017), Angioplasty (09/09/2014), Colonoscopy (10/10/2010), Heart Cath. (05/12/1994), Angioplasty of left leg artery, Appendectomy, Bunionectomy, Carotid angiogram, Carotid endarterectomy, Cataract extraction, D&C - Dilatation and curettage, EGD,Esophagogastroduodeno (more content not included)...[facility] CenterComment on above: Result Comment: Electronically Signed By: Antonio Nguyen MD\.br\Date and Time Signed: 01/03/25 16:00 EDTPulmonary Function Studieson [id number] Function StudiesPulmonary Function Studies PULMONARY FUNCTION TEST: 12/27/2024 REQUESTING PROVIDER: Migdalia Warner M.D. REASON FOR TESTING: Moderate persistent asthma. Spirometry results are acceptable and reproducible. The FVC was 1.38 liters or 62% of predicted. FEV1 was 0.92 liter or 55% of predicted with a ratio of 67%. There was borderline response in the FVC with the administration of bronchodilator of 14% from baseline. Lung volumes showed a total lung capacity of 80% of predicted, residual volume of 102% of predictedwith a ratio of 57%. Diffusion capacity for carbon monoxide was 39% of predicted and when adjusted to alveolar volume at57% of predicted. 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 When compared to the patient's prior pulmonary function test performed on March 16, 2018, there has been a significant decrease in the FEV1 since then; however, the diffusion capacity has slightly improved. Clinical correlation is recommended. READ BY: Sam Hawley M.D. [place] Dictated: 12/29/2024 [id number] Transcribed: 12/30/2024 cc:Migdalia Warner M.D.[facility] CenterComment on above:Result Comment: Electronically Signed By: Sam Hawley MD\.br\Date and Time Signed: 12/31/24 09:11 EDTDischarge Instructionson [id number] Instructions Discharge Instructions PIEDAD ALATORRE :1935 Visit Date:12/09/2024 Inpatient Discharge Instructions Your Care Team Admitting Physician - Wolf Peres MD Referring Physician - Wolf Peres MD Reason for Your Visit DYSPHAGIA, GLOBUS SENSATION, HISTORY OF CVA IN ADULTHOOD Your Diagnosis Dysphagia This Is Your Medications List [facility] [place] Prescription (med neb mask and tubing) acetaminophen albuterol (Albuterol (Eqv-Proventil HFA) 90 mcg/inh inhalation aerosol) amlodipine (amLODIPine 5 mg Tab) aspirin (aspirin 81 mg oral tablet) atorvastatin (atorvastatin 80 mg Tab) carvedilol (carvedilol 25 mg Tab) clonidine (cloNIDine 0.1 mg tab) cycloSPORINE ophthalmic (Cequa 0.09% ophthalmic solution) dexamethasone-tobramycin ophthalmic (dexamethasone-tobramycin Opth 0.1%-0.3% Susp) docusate (docusate sodium 100 mg Cap) ferrous sulfate (ferrous sulfate 325 mg oral enteric coated tablet) ipratropium ipratropium nasal (Atrovent 0.03% [place]) isosorbide mononitrate (isosorbide mononitrate 30 mg ER Tab) nitroglycerin nitroglycerin (nitroglycerin 0.4 mg sublingual Tab) ondansetron (Zofran 4 mg Tab) pantoprazole (Pantoprazole [address] Tab) polyethylene glycol 3350 (MiraLax) spironolactone (spironolactone 25 mg Tab) ticagrelor (ticagrelor 90 mg oral tablet) trazodone (traZODONE 50 mg Tab) Procedure History Cardiac catheterization, left heart (01/21/2024), PCI - Percutaneous coronary intervention (01/21/2024), Colonoscopy (03/18/2022), Colonoscopy (03/18/2022), Radiofrequency ablation of [...] extraction, D&C - Dilatation and curettage, EGD, Esophagogastroduodenoscopy, kidney artery left stent placement, Removal of ovarian cyst, Stents, bilateral legs. Discharge Vitals Temperature (Temporal Artery) 35.9 ???C Heart Rate (Monitored) 53 Respiratory Rate 14 Blood Pressure 92/36 What to do next Instructions From Your Doctor Event Name Event Result Discharge Activity Resume normal activities in 24 hours Discharge Restrictions No driving for 24 hrs Discharge Diet(s) Other: per egd note Call Your Doctor For Persistent or heavy bleeding Discharge Instructions Discharge Instructions Previously Scheduled Follow-Up Appointments Friday 12:30 PM EDT With: Where: Cardiovascular Services Friday 1:30 PM EDT With: Where: Cardiovascular Services Friday 1:15 PM EDT With: Antonio Nguyen MD Where: Cardiology Clinic Friday 10:15 AM EDT With: Migdalia Warner MD Where: Pulmonary Clinic Friday 11:40 AM EDT With: Deonte ROSARIO MD Where: [facility] [address], [facility] [address] Friday2025 11:00 AM EDT With: Where: [facility] [address] [employer] [place] [address]- New Follow Up Appointments after Discharge Follow Up with Wolf Peres When: Comments: Call for any problems. Where: [address] [facility], [address] [facility] [address] [place] [phone] Business (1) Medications What How Much When Why Instructions Next Dose Unchanged acetaminophen 325 Milligram By Mouth Every 6 hours as needed for as needed for pain Unchanged albuterol (Albuterol (Eqv-Proventil HFA) 90 mcg/ inh inhalation aerosol) 2 Puffs Inhalation Every 6 hours Acute URI Asthma exacerbation Unchanged amlodipine (amLODIPine 5 mg Tab) 1 Tablets By Mouth Every day Unchanged aspirin (aspirin 81 mg oral tablet) 1 Tablets By Mouth Every day Unchanged atorvastatin (atorvastatin 80 mg Tab) 1 Tablets By Mouth At bedtime Unchanged carvedilol (carvedilol 25 mg Tab) 1 Tablets By Mouth 2 times a day Unchanged clonidine (cloNIDine 0.1 mg tab) 0.1 Milligram By Mouth 2 times a day Unchanged cycloSPORINE ophthalmic (Cequa 0.09% ophthalmic solution) Both eyes Every 12 hours Unchanged dexamethasone-tobramycin ophthalmic (dexamethasone-tobramycin Opth 0.1%-0.3% Susp) 5 mL, 0 Refill(s), INSTILL 1 DROP INTO RIGHT EYE 4 TIMES A DAY Unchanged docusate (docusate sodium 100 mg Cap) 1 Capsules By Mouth 2 times a day as needed for forconstipation Unchanged ferrous sulfate (ferrous sulfate 325 mg oral enteric coated tablet) 1 Tablets By Mouth Tati (more content not included)...[facility] CenterComment on above:Result Comment: Electronically Signed By: Abran TOLBERT, Shanthi\.br\Date and Time Signed: 12/09/24 10:40 EDTInpatient Patient Summaryon [id number] Patient SummaryInpatient Patient Summary [place] [id number] [facility] Clinical Discharge Instructions PERSON INFORMATION Name: PIEDAD ALATORRE PHYSICIANS Admitting Physician: Wolf Peres MD Attending Physician: Wolf Peres MD PCP: Deonte ROSARIO MD Discharge Diagnosis: Dysphagia Comment: PATIENT EDUCATION INFORMATION Instructions: Medication Leaflets: Follow up: Type Location Start Finish State PUL Pulmonary Function Test (FT) FT.CARDIO 12/27/2024 12:30 PM 12/27/2024 1:30 PM Confirmed PUL Six Minute Walk Test (FT) FT.CARDIO 12/27/2024 1:30 PM 12/27/2024 2:30 PM Confirmed Cardiology Follow Up (FT) FT.Cardiology Clinic 12/31/2024 1:15 PM 12/31/2024 1:30 PM Confirmed Pulmonary Follow Up (FT) FT.Pulmonary Clinic 01/05/2025 10:15 AM 01/05/2025 10:30 AM Confirmed FM Open [facility] 01/11/2025 11:40 AM 01/11/2025 12:00 PM Confirmed FM Medicare Wellness Subsequent [facility] 08/03/2025 11:00 AM 08/03/2025 12:00 PM Confirmed MEDICATION LIST Medications to Continue with No Changes Other Medications acetaminophen 325 Milligram By Mouth every 6 hours as needed as needed for pain. albuterol (Albuterol (Eqv-Proventil HFA) 90 mcg/inh inhalation aerosol) 2 Puffs Inhalation every 6 hours. Refills: 5. amlodipine (amLODIPine 5 mg Tab) 1 Tablets By Mouth every day. Refills: 4. aspirin (aspirin 81 mg oral tablet) 1 Tablets By Mouth every day. atorvastatin (atorvastatin 80 mg Tab) 1 Tablets By Mouth at bedtime. Refills: 4. carvedilol (carvedilol 25 mg Tab) 1 Tablets By Mouth 2 times a day. Refills: 4. clonidine (cloNIDine 0.1 mg tab) 0.1 Milligram By Mouth 2 times a day. Refills: 4. cycloSPORINE ophthalmic (Cequa 0.09% ophthalmic solution) Both eyes every 12 hours. dexamethasone-tobramycin ophthalmic (dexamethasone-tobramycin Opth 0.1%-0.3% Susp) 5 mL, 0 Refill(s), INSTILL 1 DROP INTO RIGHT EYE 4 TIMES A DAY., Responsible Provider: ELEONORA EASTON docusate (docusate sodium 100 mg Cap) 1 Capsules By Mouth 2 times a day as needed for constipation. ferrous sulfate (ferrous sulfate 325 mg oral enteric coated tablet) 1 Tablets By Mouth every day. Refills: 5. ipratropium 4 times a day. ipratropium nasal (Atrovent 0.03% [place]) 2 Sprays Nasal Inhalation 3 times a day as needed Other (see comment). Refills: 1. isosorbide mononitrate (isosorbide mononitrate 30 mg ER Tab) 1 Tablets By Mouth once a day (in the morning). Refills: 2. [facility] Prescription (med neb mask and tubing) med neb mask and tubing. Refills: 5. nitroglycerin nitroglycerin (nitroglycerin 0.4 mg sublingual Tab) 1 Tablets Sublingual every 5 minutes as needed for chest pain. ondansetron (Zofran 4 mg Tab) By Mouth every 8 hours. pantoprazole (Pantoprazole [address] Tab) 1 Tablets By Mouth every day. Refills: 4. polyethylene glycol 3350 (MiraLax) 17 Gram By Mouth every day. spironolactone (spironolactone 25 mg Tab) 1 Tablets By Mouth every day. Refills: 4. ticagrelor (ticagrelor 90 mg oral tablet) 1 Tablets By Mouth 2 times a day. Refills: 4. trazodone (traZODONE 50 mg Tab) TAKE ONE TABLET BY MOUTH ONCE DAILY AT BEDTIME. Refills: 24. Comment:[facility] OR Intraoperative Recordon [id number] OR Intraoperative RecordMain OR Intraoperative Record IntraOp Document Type FT Summary Primary Physician: Wolf Peres MD Finalized Date/Time: 12/09/24 13:56:36 Pt. Name: PIEDAD ALATORRE Migel Beavers./Sex: 1935 Female Med Rec #: [id number] Physician: Wolf Peres MD Financial #: [id number] Pt. Type: O Room/Bed: / Admit/Disch: 12/09/24 08:54:02 - Institution: Case Times FT Entry 1 Patient Times In Room 12/09/24 10:23:00 Out Room 12/09/24 10:33:00 Procedure Times Start 12/09/24 10:26:00 Stop 12/09/24 10:32:00 Anesthesia Times Start 12/09/24 10:23:00 Stop 12/09/24 10:33:00 Last Modified By: Suellen Triplett RN 12/09/24 10:33:38 Case Attendance FT Entry 1 Entry 2 Entry 3 Case Attendee Cecilia CHOE, Deonte Triplett RN, Shreya Zaidi Role Performed Anesthesiologist Pharmacy Technician Instructor - Primary Staff - Other Babbitter Time In 12/09/24 10:23:00 12/09/24 10:23:00 12/09/24 10:23:00 Time Out 12/09/24 10:33:00 12/09/24 10:33:00 12/09/24 10:33:00 Procedure EGD DILATATION(.) EGD DILATATION(.) EGD DILATATION(.) Comments Dr. Recinos supervising help in room Last Modified By: Uziel TOLBERT, Suellen Triplett RN, Suellen Triplett RN, Suellen 12/09/24 10:33:39 12/09/24 10:33:39 12/09/24 10:33:39 Entry 4 Entry 5 Case Attendee Rakesh PEDROZA, Caty Peres MD, Wolf Arana Role Performed Scrub - Primary Surgeon - Primary Time In 12/09/24 10:23:00 12/09/24 10:23:00 Time Out 12/09/24 10:33:00 12/09/24 10:33:00 Procedure EGD DILATATION(.) EGD DILATATION(.) Comments Last Modified By: Uziel TOLBERT, Suellen Triplett RN, Suellen 12/09/24 10:33:39 12/09/24 10:33:39 Perioperative Protocols FT Pre-Care Text: Implements protective measures prior to operative or invasive procedure, confirms identity before the operative or invasive procedure, verifies operative procedure, surgical site, and laterality Entry 1 Procedure(s) EGD DILATATION(.) Patient Identity Birthday, ID Band Verified (select at Check, Patient least 2): Participation Consents / H and P Anesthesia Consent, Operative Site N/A Verified H&P, Surgery/Procedure Marking Verified Consent Surgical Site No Laterality Verified n/a Verified Procedure Verified Yes Correct Patient Yes Position Verified Availability Equipment, Medication Prep Dry n/a Verified (If Applicable) PreOp Antibiotic No Time Out Deonte Maravilla, Given Participants Uziel TOLBERT, Juan Francisco Ken Micala E, Rakesh PEDROZA, Larisa Cummins MD, Wolf Arana Time Out Complete 12/09/24 10:24:00 Outcomes Met? Yes Last Modified By: Suellen Triplett RN 12/09/24 10:28:48 Post-Care Text: The patient is free from signs and symptoms of injury caused by extraneous objects Allergy Information FT Pre-Care Text: Verifies allergies Entry 1 Allergies Reviewed? Yes Allergies Reviewed Self/Patient With Outcomes Met? Yes Last Modified By: Suellen Triplett RN 12/09/24 10:28:56 Post-Care Text: The patient received appropriate medication(s) safely administered during the perioperative period Surgical Procedures FT Entry 1 Procedure Description Procedure EGD DILATATION Modifiers . Surgeon Description EGD with esophageal dilation using 18-19-20 balloon. Primary Procedure Yes Primary Surgeon Wolf Peres MD Start 12/09/24 10:26:00 Stop 12/09/24 10:32:00 Anesthesia Type General Surgical Service Gastroenterology Wound Class 2 - Clean-Contaminated Last Modified By: Suellen Triplett RN 12/09/24 10:32:10 General Case Data FT Pre-Care Text: Classifies surgical wound, implements aseptic technique, initiates traffic control Entry 1 Case Information OR ENDO 1 FT Case Level Level 2 Wound Class 2 - Clean-Contaminated Specialty Gastroenterology ASA Class 4 Preop Diagnosis DYSPHAGIA Postop Same As Preop No Postop Diagnosis Schatzki ring, large Outcomes Met? Yes hiatal hernia Last Modified By: Suellen Triplett RN 12/09/24 10:30:07 Post-Care Text: The patient is free from signs and symptoms of infection Skin Assessment (Pre Procedure) FT Pre-Care Text: Implements protective measures to prevent skin/ tissue injury due to thermal or mechanical sources Evaluates for signs and symptoms of physical injury to skin and tissue Entry 1 Skin Integrity Intact, [place], Warm, & Skin Abnormality No Dry Outcomes Met? Yes Last Modified By: Suellen Triplett RN 12/09/24 10:30:57 Post-Care Text: The patient is free from signs and symptoms of injury caused by extraneous objects Patient Positioning FT Pre-Care Text: Identifies physical alterations that require additional precautions for procedure-specific positioning, verifies presence of prosthetics or corrective devices, positions the patient, evaluates the patient for signs and symptoms of injury as a result of positioning Entry 1 Procedure EGD DILATATION(.) Body Position Lateral, right side up Feet Uncrossed? Yes Left Arm Position Resting (more content not included)... [facility] PACU I Recordon [id number] OR PACU I RecordMain OR PACU I Record PACU Phase I Document Type FT Summary Primary Physician: Wolf Peres MD Finalized Date/Time: 12/09/24 11:19:50 Pt. Name: PIEDAD ALATORRE D.O.B./Sex: 1935 Female Med Rec #: [id number] Physician: Wolf Peres MD Financial #: [id number] Pt. Type: O Room/Bed: / Admit/Disch: 12/09/24 08:54:02 - Institution: Case Times PACU I FT [...] to medications Entry 1 In PACU I 12/09/24 10:34:00 Discharge from PACU 12/09/24 11:10:00 I Outcomes Met? Yes Last Modified By: Shanthi Osullivan RN 12/09/24 11:19:33 Post-Care Text: The patient demonstrates knowledge of the expected response to the operative or invasive procedure The patient's care is consistent with the individualized perioperative plan of care The patient's rightto privacy is maintained The patient's value system, [...] with or improved from baseline levels established preoperativelyThe patient's cardiovascular status is consistent with or improved from baseline levels established preoperatively The patient's cardiovascular status is consistent with or improved from baseline levels established preoperatively The patient demonstrates and/or reports adequate pain control throughout the perioperative period The patient received appropriate medication(s), safely administered during the perioperativeperiod Acuity Level PACU I FT Entry 1 Start Time 12/09/24 10:34:00 Stop Time 12/09/24 11:10:00 Acuity Level Acuity Level I Last Modified By: Shanthi Osullivan RN 12/09/24 11:19:46 Finalized By: Shanthi Osullivan RN Document Signatures Signed By: Shanthi Osullivan RN 12/09/24 11:19Norm[facility] Preoperative Recordon [id number] OR Preoperative RecordMain OR Preoperative Record Holding Area Document Type FT Summary Primary Physician: Wolf Peres MD Finalized Date/Time: 12/09/24 09:10:43 Pt. Name: PIEDAD ALATORRE Migel Gregg/Sex: 1935 Female Med Rec #: [id number] Physician: Wolf Peres MD Financial #: [id number] Pt. Type: O Room/Bed: / Admit/Disch: 12/09/24 08:54:02 - Institution: Case Times Holding FT Pre-Care Text: Verifies consent for planned procedure, identifies individual values and wishes concerning care, includes family members in perioperative teaching Secures patient's records' belongings, and valuables, maintains patient's dignity and privacy, and maintains patient confidentiality Entry 1 In Holding 12/09/24 09:03:00 Outcomes Met? Yes Last Modified By: Grisel Jacome RN 12/09/24 09:06:15 Post-Care Text: The patient participates in decisions affecting his or her perioperative plan of care The patient'sright to privacy is maintained Surgery Checklist FT Entry 1 Patient Birthday, ID Band Procedure History and Physical, Identification: Check, Patient Verification: Surgical Consent, With Participation Patient NPO after Midnight: Yes Results Reviewed n/a Comments: Personal Items: Cataract Lens Implant, Personal Items IOL, glasses Glasses Comment: Limitations: Vision, walker Complaints of Pain: No Pain Comment: Denies Operative Site n/a Marking: Availability Equipment Verified: Does Patient Smoke No Patient states Yes Comment - Adult Transport postop adult Supervision supervision available Case Cancelled in No Holding Area see comments below for reason Last Modified By: Grisel Jacome RN 12/09/24 09:07:21 Finalized By: Grisel Jacome RN Document Signatures Signed By: Grisel Jacome RN 12/09/24 09:10NoL[facility]Out[facility] Discharge Instructionon [id number] Surgery Discharge InstructionOutpatient Surgery Discharge Instruction [place] [id number] Patient Discharge Instructions PERSON INFORMATION Name: PIEDAD ALATORRE Date of : 1935 Current Date: 12/09/2024 10:21:12 PHYSICIANS Admitting Physician: Larisa HINOJOSA, Wolf Arana Discharge Diagnosis: Dysphagia PIEDAD ALATORRE has been given the following list of follow-up instructions, prescriptions, and patient education materials: PATIENT FOLLOW-UP INFORMATION Diet: Other: per egd note Discharge Activity: Resume normal activities in 24 hours Discharge Restrictions: No driving for 24 hrs Call Your Doctor For: Persistent or heavy bleeding IF UNABLE TO CONTACT YOUR PHYSICIAN AND YOU FEEL IT IS AN EMERGENCY, GO TO THE NEAREST EMERGENCY ROOM OR CALL 911 PHYLLIS Ivan ROSEMARY E, have received the attached patient education materials/instructions and haveverbalized understanding: May we do a follow up call? Yes No I was present when discharge instructions were given Patient Signature Date Clinican/Nurse Signature Date Follow up: Type Location Start Finish State PUL Pulmonary Function Test (FT) FT.CARDIO 12/27/2024 12:30 PM 12/27/2024 1:30 PM Confirmed PUL Six Minute Walk Test (FT) FT.CARDIO 12/27/2024 1:30 PM 12/27/2024 2:30 PM Confirmed Cardiology Follow Up (FT) FT.Cardiology Clinic 12/31/2024 1:15 PM 12/31/2024 1:30 PM Confirmed Pulmonary Follow Up (FT) FT.Pulmonary Clinic 01/05/2025 10:15 AM 01/05/2025 10:30 AM Confirmed FM Open [facility] 01/11/2025 11:40 AM 01/11/2025 12:00 PM Confirmed FM Medicare Wellness Subsequent [facility] 08/03/2025 11:00 AM 08/03/2025 12:00 PM Confirmed Pharmacy Information: You may receive a survey from [employer] [employer] asking you to rate your care experience. Your feedback is important and will help us understand what we do well and how we can improve the quality of care we provide to you, your loved ones and our community. It???s an honor to serve you. Thank you for choosing [facility] HERE ARE THE MEDICATION CHANGES THAT OCCURRED DURING YOUR HOSPITAL STAY Medications to Continue with No Changes Other Medications acetaminophen 325 Milligram By Mouth every 6 hours as needed as needed for pain. albuterol (Albuterol (Eqv-Proventil HFA) 90 mcg/inh inhalation aerosol) 2 Puffs Inhalation every 6 hours. Refills: 5. amlodipine (amLODIPine 5 mg Tab) 1 Tablets By Mouth every day. Refills: 4. aspirin (aspirin 81 mg oral tablet) 1 Tablets By Mouth every day. atorvastatin (atorvastatin 80 mg Tab) 1 Tablets By Mouth at bedtime. Refills: 4. carvedilol (carvedilol 25 mg Tab) 1 Tablets By Mouth 2 times a day. Refills: 4. clonidine (cloNIDine 0.1 mg tab) 0.1 Milligram By Mouth 2 times a day. Refills: 4. cycloSPORINE ophthalmic (Cequa 0.09% ophthalmic solution) Both eyes every 12 hours. dexamethasone-tobramycin ophthalmic (dexamethasone-tobramycin Opth 0.1%-0.3% Susp) 5 mL, 0 Refill(s), INSTILL 1 DROP INTO RIGHT EYE 4 TIMES A DAY., Responsible Provider: ELEONORA EASTON docusate (docusate sodium 100 mg Cap) 1 Capsules By Mouth 2 times a day as needed for constipation. ferrous sulfate (ferrous sulfate 325 mg oral enteric coated tablet) 1 Tablets By Mouth every day. Refills: 5. ipratropium 4 times a day. ipratropium nasal (Atrovent 0.03% [place]) 2 Sprays Nasal Inhalation 3 times a day as needed Other (see comment). Refills: 1. isosorbide mononitrate (isosorbide mononitrate 30 mg ER Tab) 1 Tablets By Mouth once a day (in the morning). Refills: 2. [facility] Prescription (med neb mask and tubing) med neb mask and tubing. Refills: 5. nitroglycerin nitroglycerin (nitroglycerin 0.4 mg sublingual Tab) 1 Tablets Sublingual every 5 minutes as needed for chest pain. ondansetron (Zofran 4 mg Tab) By Mouth every 8 hours. pantoprazole (Pantoprazole [address] Tab) 1 Tablets By Mouth every day. Refills: 4. polyethylene glycol 3350 (MiraLax) 17 Gram By Mouth every day. spironolactone (spironolactone 25 mg Tab) 1 Tablets By Mouth every day. Refills: 4. ticagrelor (ticagrelor 90 mg oral tablet) 1 Tablets By Mouth 2 times a day. Refills: 4. trazodone (traZODONE 50 mg Tab) TAKE ONE TABLET BY MOUTH ONCE DAILY AT BEDTIME. Refills: 24. PATIENT EDUCATION INFORMATION Instructions: Medication Leaflets:[facility] CenterPul[facility]ology Office/Clinic Noteon [id number] Office/Clinic NotePulmonology Office/Clinic Note Chief Complaint 6 month SOB W extertion History of Present Illness Patient was hospitalized in September for asthma exacerbation, she lives in a nursing facility she is currently on Dulera and albuterol as needed. She reports intermittent dyspnea with exertion on and off.She is on Brilinta for coronary artery disease and stent. Chest x-ray in September was negative. Most recent PFTs in 2018 with moderate obstructive lung disease and response to bronchodilators Review of Systems PHQ Score Initial Depression Screen Score: 0 SCORE 12 point system review was done and negative except what mentioned in HPI Physical Exam Vitals & Measurements HR: 68(Peripheral) BP: 121/73 SpO2: 97% HT: 62 in HT: 157 cm WT: 144.182 lb WT: 65.4 kg BMI: 26.53 General: no distress Skin: warm, dry Head: no trauma, normocephalic Neck: Trachea midline , no adenopathy, no tenderness Eye: normal conjunctiva, sclera clear ENMT: oral mucosa moist Cardiovascular: regular rate and rhythm, normal Respiratory: Lungs CTA ,respirations non labored Chest wall: no deformity. Gastrointestinal: soft , non distended , no tenderness, no guarding. Extremities: no deformity, no trauma Neurological: nonfocal Assessment/Plan 1. Moderate persistent asthma (J45.40: Moderate persistent asthma, uncomplicated) I will step up her treatment to Trelegy inhaler and stop Dulera. I will obtain pulmonary function test and walk test. PFTs in 2018 suggestive of asthma she did not want to repeat testing when I saw her last time but she is agreeable now. If her PFTs are again suggestive of obstructive lung disease and asthma and not improving on Trelegy will consider adding biologic injections Ordered: Pulmonary Function Testing Pulmonary Function Testing 2. Coronary artery disease (I25.10: Atherosclerotic heart disease of [place] coronary artery withoutangina pectoris) Unclear if there is a cardiac component of her symptoms, she is on Brilinta for antiplatelet therapy for stent and should keep in mind that Brilinta can cause unexplained dyspnea although the patientmay have underlying lung disease and asthma will reevaluate after PFTs Follow-up No qualifying data available 4 weeks Problem List/Past Medical History Ongoing Acute hypoxemic respiratory failure Anemia Anxiety disorder At risk for falls Benign hypertension with chronic kidney disease, stage III Blind right eye BMI 26.0-26.9,adult CAD (coronary artery disease) Carotid artery stenosis Change in bowel habits Chest tightness Chronic kidney disease (CKD), stage III (moderate) Contusion of left leg COPD type B Dysphagia Edema Elevated alkaline phosphatase level Encounter for examination following treatment at hospital Eye pain Female stress incontinence Globus sensation History of colon polyps History of CVA in adulthood History of esophageal stricture HTN - Hypertension Hyperglycemia Hyperlipidemia Insomnia Intertrigo Knee pain, right Large hiatal hernia Leg weakness Leukocytosis Lumbar radiculopathy Mild pulmonary hypertension Moderate persistent asthma Neck pain Seborrheic keratoses Shoulder pain Urinary incontinence, mixed Vasomotor rhinitis Historical Acid reflux Appendectomy blood clots BMI 25.0-25.9,adult Cardiac arrest COPD Glaucoma H/O: TIA HEMATURIA [place] - myocardial infarction Stage 3 chronic kidney disease STEMI - ST elevation myocardial infarction Stroke Procedure/Surgical History Cardiac catheterization, left heart (01/21/2024), PCI - Percutaneous coronary intervention (01/21/2024), Colonoscopy (03/18/2022), Colonoscopy (03/18/2022), Radiofrequency ablation of [...] extraction, D&C - Dilatation and curettage, EGD, Esophagogastroduodenoscopy, kidney artery left stent placement, Removal of ovarian cyst, Stents, bilateral legs. Medications acetaminophen, 325 mg, Oral, q6hr, PRN Albuterol (Eqv-Proventil HFA) 90 mcg/inh inhalation aerosol, 2 puff(s), Inhalation, q6hr, 5 refills amLODIPine 5 mg Tab, 5 mg= 1 tab(s), Oral, Daily, 4 refills aspirin 81 mg oral tablet, 81 mg= 1 tab(s), Oral, Daily atorvastatin 80 mg Tab, 80 mg= 1 tab(s), Oral, Bedtime, 4 refills Atrovent 0.03% [place], 2 spray(s), Nasal, TID, PRN, 1 refills carvedilol 25 mg Tab, 25 mg= 1 tab(s), Oral, BID, 4 refills Cequ (more content not included)...[facility] CenterComment on above:Result Comment: Electronically Signed By: Timmy HINOJOSA, Migdalia Medina\.michael\Date and Time Signed: 12/01/24 11:37 EDTHeart and Vascular Office/Clinic Noteon [id number] and Vascular Office/Clinic NoteHeart and Vascular Office/Clinic Note Chief Complaint 6 month follow up. HPI Staff Piedad is a 88 year old female presenting with 6 month f/u with CAD, HTN Resident of [facility] March 18 2024 Last labs were done Jun 30 2024 History of Present Illness Piedad is a pleasant 89-year-old female who is a former patient of Dr. Catherine's. Patient history of CAD with prior PCI 11/2020. Patient most recent echo from 01/2022 showed normal EF of 65%, moderatetricuspid regurgitation with mild pulmonary hypertension. 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 This was stabilized with RAMÓN x 3 left main artery and LAD. Patient recovered well. Patient is in for 6-month follow-up today. Reviewed prior heart cath, echo. At last visit, patient saw at Which time she was continued on current medications. Patient does complain of increased shortness of breath recently. She states that she does have somebaseline shortness of breath, but shortness of breath does worsen with exertion over the last week or so. Patient reports no medication changes were changed or Anything else has been different for her that she can recall. Patient is compliant with all medications for CAD including aspirin, atorvastatin, Brilinta, carvedilol. She is taking and tolerating these medications well. I am wondering if Brilinta is contributing to some of her shortness of breath, but patient does have left main stent which puts her at high risk and likely should be on Brilinta x 1 year. Patient has well-controlled blood pressure in the office today. Currently taking amlodipine, carvedilol, clonidine, spironolactone without effect on her blood pressure. Patient reports blood pressures usually pretty good overall. Patient denies chest pain, heart palpitations, dizziness/lightheadedness, and swelling in lower legs. REVIEWED PRIOR NOTE FROM 02/06/2024: Patient comes in for 2-week follow-up after heart cath. 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 This was stabilized with RAMÓN x 3. Patient recovered well. Patient has not had any significant issues with her right wrist since the procedure. She denies significant erythema, pain, swelling in the area. Patient reports that she has been feeling pretty decent since her heart cath. She does still complain of shortness of breath. She states that this did not really change at all from prior to her heartcath and she has an upcoming appointment with pulmonology to assess this further. Patient is compliant with aspirin, atorvastatin, carvedilol, Brilinta. She reports that her shortness of breath is not worsened since procedure and do not think it is related to Brilinta. Patient reports that she is also taking isosorbide, half a tablet twice daily and has not needed any nitro since leaving the hospital. Patient states she does not continue cardiac rehab at this time. Patient denies chest pain, , heart palpitations, dizziness/lightheadedness, and swelling in lower legs. Review of Systems ROS - Provider Constitutional: no fever, no chills, no sweats, no weakness Respiratory: no shortness of breath, no cough Cardiovascular: no chest pain Neuro: no dizziness. no loss of consciousness Physical Exam Vitals & Measurements HR: 82(Peripheral) RR: 19 BP: 138/78 SpO2: 96% HT: 157 cm HT: 62 in WT: 65.4 kg WT: 144.182 lb BMI: 26.53 General: alert, no acute distress Neck: Supple, noJVD nocarotid bruit Cardiovascular: regular rate and rhythm, no murmur normal peripheral perfusion Respiratory: Lungs CTAB, respirations non labored Extremities: no edema left lower extremity. no edema right lower extremity Neurological: oriented x 4, LOC appropriate for age, speech normal Skin: Warm, dry, intact- no rash or concerning lesions Cardiac Diagnostics [facility] with Dr. Espinoza on 01/21/2024: FINDINGS: SELECTIVE CORONARY ANGIOGRAPHY: Right dominant System Left Main: Large vessel with evidence of borderline ostial/proximal disease with some calcification LAD: 50-60% discrete lesion in the proximal LAD, mid LAD has evidence of a long lesion in the rangeof approximately 30%. LAD is wraparound apex. D1: Small LCx: Mild diffuse disease OM1: Large vessel, originating from the very proximal circumflex artery, bifurcating, mild diffuse disease OM2: Mild diffuse disease OM 3: Mild diffuse disease RCA: Large, anatomically superdominant vessel, originating from the right coronary cusp. Mild disease is present in the proximal and mid RCA. Mid distal RCA has evidence of wide open stent rPDA: Free of significant disease rPLB: Borderline diffuse disease LEFT HEART CATHETERIZATION: LVEDP: 13 mmHg No significant gradient across aortic valve LV EJECTION FRACTION and WALL MOTION: Estimated EF in the range of 70%. No significant local wall motion abnormalities appreciated. Following angiographic assessment, I had concerns about significance of the (more content not included)...[facility] Center[facility]: Result Comment: Electronically Signed By: Alexx Nicole PA-C\.michael\Date and Time Signed: 11/26/24 14:05 EDTXR Adult Swallowing Function w/ Videoon [id number] Adult Swallowing Function w/ VideoExam Date/Time: 11/09/2024 10:00 EDT Reason for Exam: R13.10;Dysphagia Report IMPRESSION: MILDLY ABNORMAL MODIFIED BARIUM SWALLOW. A FULL REPORT WILL BE MADE BY THE SPEECH PATHOLOGY TEAM. EXAM: XR Adult Swallowing Function w/ Video DATE: 11/09/2024 9:22 AM CLINICAL HISTORY: Dysphagia, R13.10. COMPARISON: None available. TECHNIQUE: Lateral videofluoroscopy was provided during speech therapy evaluation during ingestion of various barium liquids and semisolids. FINDINGS: Oral and pharyngeal phases are within functional limits. Mild no laryngeal penetration is observed with thin barium liquid. There is no other significant laryngeal penetration, tracheal aspiration or significant residual collections observed. A full report will be made by the speech pathology team. Ka,r in mGy = 7.00 DAP = 163.30 (\XB5\Gy*m\XB2\) Ordering Provider: Wolf Peres FINAL REPORT Dictated: 11/09/2024 2:38 pm Kostas Chicas MD Signed (Electronic Signature): 11/09/2024 2:38 pm Signed by: Kostas Chicas MD Transcribed by: HARI Technologist: [facility] [id number] [facility] Case Information Case Priority: None Programs: Behavioral Health CCM Transition Care Management Chronic Care/Condition Management Referral Source: System Identified Referral Reason: System identified Case Type: Transition Care Management Risk Score: 2.58 Case Status: Enrolled (October 11, 2024) Date Assigned: October 11, 2024 Assigned By: Megan Gusman RN Date Enrolled: October 11, 2024 Assigned Primary Personnel: Megan Gusman RN Assigned Secondary Personnel: Angelica Davies RN Case Physician: Deonte ROSARIO MD Ongoing Acute hypoxemic respiratory failure Anemia Anxiety disorder At risk for falls Benign hypertension with chronic kidney disease, stage III Blind right eye BMI 26.0-26.9,adult CAD (coronary artery disease) Carotid artery stenosis Change in bowel habits Chest tightness Chronic kidney disease (CKD), stage III (moderate) Contusion of left leg COPD type B Dysphagia Edema Elevated alkaline phosphatase level Encounter for examination following treatment at hospital Eye pain Female stress incontinence Globus sensation History of colon polyps History of CVA in adulthood History of esophageal stricture HTN - Hypertension Hyperglycemia Hyperlipidemia Insomnia Intertrigo Knee pain, right Large hiatal hernia Leg weakness Leukocytosis Lumbar radiculopathy Mild pulmonary hypertension Moderate persistent asthma Neck pain Seborrheic keratoses Shoulder pain Urinary incontinence, mixed Vasomotor rhinitis Historical Acid reflux Appendectomy blood clots BMI 25.0-25.9,adult Cardiac arrest COPD Glaucoma H/O: TIA HEMATURIA [place] - myocardial infarction Stage 3 chronic kidney disease STEMI - ST elevation myocardial infarction Stroke Procedure/Surgical History Cardiac catheterization, left heart (01/21/2024), PCI - Percutaneous coronary intervention (01/21/2024), Colonoscopy (03/18/2022), Colonoscopy (03/18/2022), Radiofrequency ablation of [...] extraction, D&C - Dilatation and curettage, EGD, Esophagogastroduodenoscopy, kidney artery left stent placement, Removal of ovarian cyst, Stents, bilateral legs. Home Medications acetaminophen, 325 mg, Oral, q6hr, PRN Albuterol (Eqv-Proventil HFA) 90 mcg/inh inhalation aerosol, 2 puff(s), Inhalation, q6hr, 5 refills amLODIPine 5 mg Tab, 5 mg= 1 tab(s), Oral, Daily, 4 refills aspirin 81 mg oral tablet, 81 mg= 1 tab(s), Oral, Daily atorvastatin 80 mg Tab, 80 mg= 1 tab(s), Oral, Bedtime, 4 refills Atrovent 0.03% [place], 2 spray(s), Nasal, TID, PRN, 1 refills carvedilol 25 mg Tab, 25 mg= 1 tab(s), Oral, BID, 4 refills Cequa 0.09% ophthalmic solution, Eye-Both, q12hr cloNIDine 0.1 mg tab, 0.1 mg, Oral, BID, 4 refills dexamethasone-tobramycin Opth 0.1%-0.3% Susp docusate sodium 100 mg Cap, 100 mg= 1 cap(s), Oral, BID, PRN Dulera 100 mcg-5 mcg/inh inhalation aerosol, 2 puff(s), Inhalation, BID, 6 refills ferrous sulfate 325 mg oral enteric coated tablet, 325 mg= 1 tab(s), Oral, Daily, 5 refills ipratropium, QID med neb mask and tubing, See Instructions, 5 refills MiraLax, 17 gm, Oral, Daily nitroglycerin nitroglycerin 0.4 mg sublingual Tab, 0.4 mg= 1 tab(s), SubLingual, q5min, PRN Pantoprazole [address] Tab, 40 mg= 1 tab(s), Oral, Daily, 4 refills spironolactone 25 mg Tab, 25 mg= 1 tab(s), Oral, Daily, 4 refills ticagrelor 90 mg oral tablet, 90 mg= 1 tab(s), Oral, BID, 4 refills traZODONE 50 mg Tab, 50 mg= 1 tab(s), Oral, Bedtime, 4 refills Zofran 4 mg Tab, Oral, q8hr Allergies lisinopril (Angioedema) Latex (Rash) Skelaxin (SOB - Shortness of breath) penicillin (Rash, SOB - Shortness of breath) shellfish (Unknown) Social History Alcohol - Low Risk, 12/04/2009 Current, Wine, 1-2 times per year, 08/04/2024 Employment/School Retired, 01/19/2011 Home/Environment Lives with Alone. Living situation: Home with assistance. Home equipment: Respiratory treatments, Walker/Cane. Alcohol abuse in household: No. Substance abuse in household: No. Smoker in household: No. Injuries/Abuse/Neglect in household: No. Feels unsafe at home: No. Family/Friends available for support: Yes. Financial concerns: No., 01/19/2011 Other Substance Abuse - Denies Substance Abuse, 01/19/2011 Household substance abuse concerns: No., 08/04/2024 Toba (more content not included)...[facility] Gastro[facility]ology Office/Clinic Noteon [id number] Office/Clinic NoteGastroenterology Office/Clinic Note Chief Complaint Dysphagia HPI Staff Patient is a(n) 89 year old female who presents today for complaints of dysphagia. Dysphagia: When did it start: months Solids or liquids: both Frequency (every meal? Or less often): worsening Previous food impaction: no Taking aspirin 81mg and Brilinta Denies GLP-1 agonists. Last visit w/Brunilda 04/15/23: Assessment/Plan 1. Anemia (D64.9: Anemia, unspecified) 2. Large hiatal hernia (K44.9: Diaphragmatic hernia without obstruction or gangrene) Discussed referral to [facility] regarding large HH as large HH may be contributing factor toher anemia- patient would like to think about referral prior to proceeding. 3. Change in bowel habits (R19.4: Change in bowel habit) Is having change in bowel habits with loose stools over the last year. Having 3-4 BMs daily. Colonoscopy 09/2018 revealed 5mm TA removed from sigmoid colon, hemorrhoids. Previous colonoscopy 03/2022 to further evaluate anemia unable to be completed related to poor prep. 4. Dysphagia (R13.10: Dysphagia, unspecified) Improved however, occurring daily. Patient to chew food thoroughly and eat small, frequent meals. 5. Elevated alkaline phosphatase level (R74.8: Abnormal levels of other serum enzymes) Review of outside record from [facility] indicated patient was evaluated 03/26/2023 and had H&H of 8.4/27.3, elevated BUN of 27, elevated creatinine of 1.46, elevated alkaline phosphatase of 124. 6. History of colon polyps (Z86.010: Personal history of colonic polyps) Educated regarding miralax colon prep. History of Present Illness Reviewed HPI collected by staff Review of Systems PHQ Score Initial Depression Screen Score: 0 SCORE All systems reviewed, negative; Except for above Physical Exam Vitals & Measurements HR: 80(Peripheral) BP: 150/75 HT: 157 cm HT: 62 in WT: 65.7 kg WT: 144.844 lb BMI: 26.65 No acute distress Procedure EGD 02/10/23 Impression and Plan 1. Very large hiatal [...] noted in the stomach 3. Normal duodenum - Despite the size of the hiatal hernia especially if dysphagia resolves with dilation, if no symptoms beside the dysphagia and given the age we may not need to refer to thoracic surgery. Assessment/Plan 1. Dysphagia (R13.10: Dysphagia, unspecified) Hard to push foods down, feels it gets stuck in upper esophagus Solids and liquids C/o globus sensation Had previous dilation, relief afterwards Has some coughing, choking Sometimes she has coughing when she drinks Hx of stroke EGD 02/2023: Very large hiatal hernia noted with majority of the stomach located above the diaphragm, Mild Schatzki ring was noted at the GE junction. Dilation was performed using TTS balloon 18-19-20 mm, dilation was perfumed to 20 mm - Schedule Modified Barium swallow to evaluate - Schedule EGD with dilation to 18mm to evaluate. Discussed risks such as bleeding, injury and perforation as well as benefits. Patient agreeable. Hold Brilinta 7 days prior. 2. History of CVA in adulthood (Z86.73: Personal history of transient ischemic attack (TIA), and cerebral infarction without residual deficits) Taking Brilinta 3. Globus sensation (R09.89: Other specified symptoms and signs involving the circulatory and respiratory systems) Kennedi Ivan, personally scribed for Wolf ePres on 10/26/2024 14:52:23. . Follow-up No qualifying data available Problem List/Past Medical History Ongoing Acute hypoxemic respiratory failure Anemia Anxiety disorder At risk for falls Benign hypertension with chronic kidney disease, stage III Blind right eye BMI 26.0-26.9,adult CAD (coronary artery disease) Carotid artery stenosis Change in bowel habits Chest tightness Chronic kidney disease (CKD), stage III (moderate) Contusion of left leg COPD type B Dysphagia Edema Elevated alkaline phosphatase level Encounter for examination following treatment at hospital Eye pain Female stress incontinence Globus sensation History of colon polyps History of CVA in adulthood History of esophageal stricture HTN - Hypertension Hyperglycemia Hyperlipidemia Insomnia Intertrigo Knee pain, right Large hiatal hernia Leg weakness Leukocytosis Lumbar radiculopathy Mild pulmonary hypertension Moderate persistent asthma Neck pain Seborrheic keratoses Shoulder pain Urinary incontinence, mixed Vasomotor rhinitis Historical Acid reflux Appendectomy blood clots BMI 25.0-25.9,adult Cardiac arrest COPD Glaucoma (more content not included)...[facility] CenterComment on above: Result Comment: Electronically Signed By: Kennedi Mazariegos MA\.br\Date and Time Signed: 10/26/24 14:58 EDT\.br\Electronically Co-Signed By: Larisa HINOJOSA, Wolf Arana\.br\Date and Time Co-Signed: 10/27/24 14:07 [facility] [id number] Health [facility] Case Information Case Priority: None Programs: Behavioral Health CCM Transition Care Management Chronic Care/Condition Management Referral Source: System Identified Referral Reason: System identified Case Type: Transition Care Management Risk Score: 2.58 Case Status: Enrolled (October 11, 2024) Date Assigned: October 11, 2024 Assigned By: Megan Gusman RN Date Enrolled: October 11, 2024 Assigned Primary Personnel: Megan Gusman RN Assigned Secondary Personnel: Samson TOLBERT, Angelica Jeong Case Physician: PAULO HINOJOSA, Deonte Turpin Problems Ongoing Acute hypoxemic respiratory failure Anemia Anxiety disorder At risk for falls Benign hypertension with chronic kidney disease, stage III Blind right eye BMI 26.0-26.9,adult CAD (coronary artery disease) Carotid artery stenosis Change in bowel habits Chest tightness Chronic kidney disease (CKD), stage III (moderate) Contusion of left leg COPD type B Dysphagia Edema Elevated alkaline phosphatase level Encounter for examination following treatment at hospital Eye pain Female stress incontinence Globus sensation History of colon polyps History of CVA in adulthood History of esophageal stricture HTN - Hypertension Hyperglycemia Hyperlipidemia Insomnia Intertrigo Knee pain, right Large hiatal hernia Leg weakness Leukocytosis Lumbar radiculopathy Mild pulmonary hypertension Moderate persistent asthma Neck pain Seborrheic keratoses Shoulder pain Urinary incontinence, mixed Vasomotor rhinitis Historical Acid reflux Appendectomy blood clots BMI 25.0-25.9,adult Cardiac arrest COPD Glaucoma H/O: TIA HEMATURIA [place] - myocardial infarction Stage 3 chronic kidney disease STEMI - ST elevation myocardial infarction Stroke Procedure/Surgical History Cardiac catheterization, left heart (01/21/2024), PCI - Percutaneous coronary intervention (01/21/2024), Colonoscopy (03/18/2022), Colonoscopy (03/18/2022), Radiofrequency ablation of [...] extraction, D&C - Dilatation and curettage, EGD, Esophagogastroduodenoscopy, kidney artery left stent placement, Removal of ovarian cyst, Stents, bilateral legs. Home Medications acetaminophen, 325 mg, Oral, q6hr, PRN Albuterol (Eqv-Proventil HFA) 90 mcg/inh inhalation aerosol, 2 puff(s), Inhalation, q6hr, 5 refills amLODIPine 5 mg Tab, 5 mg= 1 tab(s), Oral, Daily, 4 refills aspirin 81 mg oral tablet, 81 mg= 1 tab(s), Oral, Daily atorvastatin 80 mg Tab, 80 mg= 1 tab(s), Oral, Bedtime, 4 refills Atrovent 0.03% [place], 2 spray(s), Nasal, TID, PRN, 1 refills carvedilol 25 mg Tab, 25 mg= 1 tab(s), Oral, BID, 4 refills Cequa 0.09% ophthalmic solution, Eye-Both, q12hr cloNIDine 0.1 mg tab, 0.1 mg, Oral, BID, 4 refills dexamethasone-tobramycin Opth 0.1%-0.3% Susp docusate sodium 100 mg Cap, 100 mg= 1 cap(s), Oral, BID, PRN Dulera 100 mcg-5 mcg/inh inhalation aerosol, 2 puff(s), Inhalation, BID, 6 refills ferrous sulfate 325 mg oral enteric coated tablet, 325 mg= 1 tab(s), Oral, Daily, 5 refills ipratropium, QID MiraLax, 17 gm, Oral, Daily nitroglycerin nitroglycerin 0.4 mg sublingual Tab, 0.4 mg= 1 tab(s), SubLingual, q5min, PRN Pantoprazole [address] Tab, 40 mg= 1 tab(s), Oral, Daily, 4 refills spironolactone 25 mg Tab, 25 mg= 1 tab(s), Oral, Daily, 4 refills ticagrelor 90 mg oral tablet, 90 mg= 1 tab(s), Oral, BID, 4 refills traZODONE 50 mg Tab, 50 mg= 1 tab(s), Oral, Bedtime, 4 refills Zofran 4 mg Tab, Oral, q8hr Allergies lisinopril (Angioedema) Latex (Rash) Skelaxin (SOB - Shortness of breath) penicillin (Rash, SOB - Shortness of breath) shellfish (Unknown) Social History Alcohol - Low Risk, 12/04/2009 Current, Wine, 1-2 times per year, 08/04/2024 Employment/School Retired, 01/19/2011 Home/Environment Lives with Alone. Living situation: Home with assistance. Home equipment: Respiratory treatments, Walker/Cane. Alcohol abuse in household: No. Substance abuse in household: No. Smoker in household: No. Injuries/Abuse/Neglect in household: No. Feels unsafe at home: No. Family/Friends available for support: Yes. Financial concerns: No., 01/19/2011 Other Substance Abuse - Denies Substance Abuse, 01/19/2011 Household substance abuse concerns: No., 08/04/2024 Tobacco - Denies Tobacco Use, 12/04/2009 Never (less than (more content not included)...[facility] Ambulatory Visit Summaryon [id number] Visit SummaryAmbulatory Visit Summary PIEDAD ALATORRE :1935 Visit Date:10/26/2024 Ambulatory Visit Instructions Your Diagnosis Dysphagia History of CVA in adulthood Globus sensation These Are Your Goals B/P will be in normal range for patient Interventions: Low impact exercises: 2 arm and 2 legs exercises- 10 repetitions daily of each or walk in hallway -Progressing Low sodium diet - Progressing Medication Compliance [...] Deonte Turpin This Is Your Medications List Contact prescribing physician if questions or concerns acetaminophen albuterol (Albuterol (Eqv-Proventil HFA) 90 mcg/inh inhalation aerosol) amlodipine (amLODIPine 5 mg Tab) aspirin (aspirin 81 mg oral tablet) atorvastatin (atorvastatin 80 mg Tab) carvedilol (carvedilol 25 mg Tab) clonidine (cloNIDine 0.1 mg tab) cycloSPORINE ophthalmic (Cequa 0.09% ophthalmic solution) dexamethasone-tobramycin ophthalmic (dexamethasone-tobramycin Opth 0.1%-0.3% Susp) docusate (docusate sodium 100 mg Cap) ferrous sulfate (ferrous sulfate 325 mg oral enteric coated tablet) formoterol-mometasone (Dulera 100 mcg-5 mcg/inh inhalation aerosol) ipratropium ipratropium nasal (Atrovent 0.03% [place]) nitroglycerin nitroglycerin (nitroglycerin 0.4 mg sublingual Tab) ondansetron (Zofran 4 mg Tab) pantoprazole (Pantoprazole [address] Tab) polyethylene glycol 3350 (MiraLax) spironolactone (spironolactone 25 mg Tab) ticagrelor (ticagrelor 90 mg oral tablet) trazodone (traZODONE 50 mg Tab) Procedures Performed Cardiac catheterization, left heart (01/21/2024), PCI - Percutaneous coronary intervention (01/21/2024), Colonoscopy (03/18/2022), Colonoscopy (03/18/2022), Radiofrequency ablation of [...] extraction, D&C - Dilatation and curettage, EGD, Esophagogastroduodenoscopy, kidney artery left stent placement, Removal of ovarian cyst, Stents, bilateral legs. Discharge Vitals Heart Rate (Peripheral) 80 Blood Pressure 150/75 Height 157 cm Height 62 in Weight 65.7 kg Weight 144.844 lb BMI 26.65 What to do next Scheduled Follow-Up Appointments Friday 1:30 PM EDT With: Alexx Nicole PA-C Where: [facility] [place] Friday 10:45 AM EDT With: Migdalia Warner MD Where: [facility] Friday 11:40 AM EDT With: Deonte ROSARIO MD Where: [facility] [address] [place] [address]- [id number] 11:00 AM EDT With: Where: [facility] [address] [place] [address]- You Need to Complete the Following XR Adult Swallowing Function w/ Video: Evaluate Pt, Develop a Plan of Care & Implement Plan, 10/26/24, Routine, Order for future visit, Transport Mode: Cart, Reason: Dysphagia, No, Dysphagia History of CVA in adulthood, pp_set_radiology_subspecialty, Not Required, [facility] Medications What How Much When Why Instructions Unchanged acetaminophen 325 Milligram By Mouth Every 6 hours as needed for as needed for pain Contact prescribing physician if questions or concerns Unchanged albuterol (Albuterol (Eqv-Proventil HFA) 90 mcg/ inh inhalation aerosol) 2 Puffs Inhalation Every 6 hours Acute URI Asthma exacerbation Contact prescribing physician if questions or concerns Unchanged amlodipine (amLODIPine 5 mg Tab) 1 Tablets By Mouth Every day Contact prescribing physician if questions or concerns Unchanged aspirin (aspirin 81 mg oral (more content not included)...[facility] Center[facility] Visit Summaryon [id number] Visit SummaryAmbulatory Visit Summary PIEDAD ALATORRE :1935 Visit Date:10/20/2024 Ambulatory Visit Instructions Your Diagnosis Encounter for examination following treatment at hospital COPD type B Chronic kidney disease (CKD), stage III (moderate) CAD (coronary artery disease) Acute hypoxemic respiratory failure HTN - Hypertension Dysphagia BMI 26.0-26.9,adult Overweight These Are Your Goals B/P will be in normal range for patient Interventions: Low impact exercises: 2 arm and 2 legs exercises- 10 repetitions daily of each or walk in hallway -Progressing Low sodium diet - Progressing Medication Compliance [...] Progressing Your Care Team Attending Physician - Antelmo FLORES, Apollo Esquivel Primary Care Physician - PAULO HINOJOSA, Deonte Turpin This Is Your Medications List acetaminophen albuterol (Albuterol (Eqv-Proventil HFA) 90 mcg/inh inhalation aerosol) amlodipine (amLODIPine 5 mg Tab) aspirin (aspirin 81 mg oral tablet) atorvastatin (atorvastatin 80 mg Tab) carvedilol (carvedilol 25 mg Tab) clonidine (cloNIDine 0.1 mg tab) cycloSPORINE ophthalmic (Cequa 0.09% ophthalmic solution) dexamethasone-tobramycin ophthalmic (dexamethasone-tobramycin Opth 0.1%-0.3% Susp) docusate (docusate sodium 100 mg Cap) ferrous sulfate (ferrous sulfate 325 mg oral enteric coated tablet) formoterol-mometasone (Dulera 100 mcg-5 mcg/inh inhalation aerosol) ipratropium nasal (Atrovent 0.03% [place]) nitroglycerin (nitroglycerin 0.4 mg sublingual Tab) pantoprazole (Pantoprazole [address] Tab) polyethylene glycol 3350 (MiraLax) spironolactone (spironolactone 25 mg Tab) ticagrelor (ticagrelor 90 mg oral tablet) trazodone (traZODONE 50 mg Tab) Procedures Performed Cardiac catheterization, left heart (01/21/2024), PCI - Percutaneous coronary intervention (01/21/2024), Colonoscopy (03/18/2022), Colonoscopy (03/18/2022), Radiofrequency ablation of [...] extraction, D&C - Dilatation and curettage, EGD, Esophagogastroduodenoscopy, kidney artery left stent placement, Removal of ovarian cyst, Stents, bilateral legs. Discharge Vitals Heart Rate (Peripheral) 72 Blood Pressure 140/78 Height 157 cm Height 62 in Weight 65.5 kg Weight 144.403 lb BMI 26.57 What to do next Scheduled Follow-Up Appointments 2024 9:30 AM EDT With: Tim HINOJOSA, Marisabel Bauer Where: [facility] [address] [employer] [address] [address]- Friday 1:30 PM EDT With: Alexx Nicole PA-C Where: [facility] [place] [facility] Friday 11:40 AM EDT With: Deonte ROSARIO MD Where: [facility] [address], [place] [address]- [id number] 11:00 AM EDT With: Where: [facility] [address], [place] [address]- Medications What How Much When Why Instructions Unchanged acetaminophen 325 Milligram By Mouth Every 6 hours as needed for as needed for pain Unchanged albuterol (Albuterol (Eqv-Proventil HFA) 90 mcg/ inh inhalation aerosol) 2 Puffs Inhalation Every 6 hours Acute URI Asthma exacerbation Unchanged amlodipine (amLODIPine 5 mg Tab) 1 Tablets By Mouth Every day Unchanged aspirin (aspirin 81 mg oral tablet) 1 Tablets By Mouth Every day Unchanged atorvastatin (atorvastatin 80 mg Tab) 1 Tablets By Mouth At bedtime Unchanged carvedilol (carvedilol 25 mg Tab) 1 Tablets By Mouth 2 times a day Unchanged clonidine (cloNIDine 0.1 mg tab) 0.1 Milligram By Mouth 2 times a day Unchanged cycloSPORI (more content not included)...[facility] Medicine Office/Clinic Noteon 21-09-5050O[facility]x [facility] Note Chief Complaint Hosp. f/u HPI Staff TCM hosp. f/u from 10/07 - 09/28 for acute hypoxemic respiratory failure. Dr. Rosario pt. Pt. states she having a hard time breathing, would like oxygen. History of Present Illness Piedad is an 89 year old female patient of Dr. Rosario for [facility] discharge and TCM follow up 10-07-24 to 10-08-24 for acute respiratory failure. PFTs consistent with asthma and has seen pulmonology with Dr. Warner. She reported to ED after eating breakfast and felt something get stuck in her throat. She has history of esophageal stricture with previous dilation. She does take a PPI. She also had a pill get stuck in her throat during admission. She will follow up with GI outpatient and currently has appointment with GI. She was discharged with prednisone 20 mg daily for 3 days and 10 mg daily for3 days. She was instructed to continue home Dulera and rescue inhaler. Review of Systems PHQ Score Initial Depression Screen Score: 0 SCORE Physical Exam Vitals & Measurements HR: 72(Peripheral) BP: 140/78 SpO2: 99% HT: 157 cm HT: 62 in WT: 65.5 kg WT: 144.403 lb BMI: 26.57 General: Well developed, well nourished, in no acute distress Mouth: Mucous membranes moist. Normal oropharynx, and posterior pharynx without lesions or exudates. Tongue normal Neck: Neck supple. No masses or palpable cervical nodes. Trachea midline. Thyroid without nodules, masses, tenderness, or enlargement Lungs: Normal respiratory effort and clear but diminished to auscultation Cardio: Regular rate and rhythm, normal S1 and S2, no murmur, no rub Abdomen: Soft, non-distended, non-tender. no G/R/S/Masses Musculoskeletal: No deformity or scoliosis noted. Normal range of motion. Joints normal. No erythema, edema, effusion, or ecchymosis Extremity: No clubbing, cyanosis, edema, or deformity, with normal ROM in both upper and lower bilateral extremities Neurologic: Grossly normal Skin: No rashes, ulcerations, or suspicious lesions Mental Status: Alert and oriented x3. Normal mood and affect Assessment/Plan 1. Encounter for examination following treatment at hospital (Z09: Encounter for follow-up examination after completed treatment for conditions other than malignant neoplasm) [facility] 10-07-24 to 10-08-24. Ordered: Current tobacco non-user 1036F Depression Screening Negative 3352F [facility] 14 day disch [id number] 2. COPD type B (J44.9: Chronic obstructive pulmonary disease, unspecified) continue dulera and rescue inhaler. continue follow up with pulmonology. PFTs consistent with asthma. she feels short of breath today despite oxygen saturation being 99% on room air. she is using herrescue inhaler twice per day or more. I advised her to increase her albuterol usage to 4 to 6 timesdaily and contact pulm for follow up. Ordered: [facility] 14 day disch [id number] 3. Chronic kidney disease (CKD), stage III (moderate) (N18.30: Chronic kidney disease, stage 3 unspecified) kidney function stable with lab review. continue medications and encourage hydration. continue follow up and labs at future appointments. Ordered: [facility] 14 day disch [id number] 4. CAD (coronary artery disease) (I25.10: Atherosclerotic heart disease of [place] coronary artery without angina pectoris) History of PCI and coronary artery dissection. follows with cardiology and has appointment upcomingwith cardiology. keep follow up and continue medications. Ordered: [facility] 14 day disch [id number] 5. Acute hypoxemic respiratory failure (J96.01: Acute respiratory failure with hypoxia) see #2. pulse ox 99% on room air today. Ordered: Patient screen for fall risk: no falls in last year or 1 fall with no injury in last year 1101F [facility] 14 day disch [id number] 6. HTN - Hypertension (I10: Essential (primary) hypertension) BP 140/78 in office today. continue current medications and follow up with cardiology and Dr. Rosario Ordered: Most recent diastolic blood pressure <80 mm Hg 3078F Most recent systolic blood pressure >= 140 mm Hg 3077F [facility] 14 day disch [id number] 7. Dysphagia (R13.10: Dysphagia, unspecified) she has history of esophageal stricture with dilation about 2 years ago. She has appointment with GI in November. she still feels like she has something stuck in her throat. will investigate if appointment can be moved up. Ordered: [facility] 14 day disch [id number] 8. BMI 26.0-26.9,adult (Z68.26: Body mass index [BMI] 26.0-26.9, adult) The standard range for ages 18 and older is >=18.5 and < 25 kg/m2. Your BMI today was above this range, this falls in the overweight to obese category and there are medical benefits to weight loss. We can offer counselling, referral, and/or medical support in addressing this problem. Your BMIand weight management will be followed at subsequent visits. Ordered: [facility] 14 day disch [id number] 9. Overweight (E66.3: (more content not included)...[facility] Medical CenterComment on above:Result Comment: Electronically Signed By: Apollo Causey\.br\Date and Time Signed: 10/20/24 13:36 [facility] [id number] Regional Hospital [facility] Case Information Case Priority: None Programs: Behavioral Health CCM Transition Care Management Chronic Care/Condition Management Referral Source: System Identified Referral Reason: System identified Case Type: Transition Care Management Risk Score: 2.58 Case Status: Enrolled (October 11, 2024) Date Assigned: October 11, 2024 Assigned By: Megan Gusman RN Date Enrolled: October 11, 2024 Assigned Primary Personnel: Megan Gusman RN Assigned Secondary Personnel: Angelica Davies RN Case Physician: PAULO HINOJOSA, Deonte Turpin Problems Ongoing Anemia Anxiety disorder At risk for falls Benign hypertension with chronic kidney disease, stage III Blind right eye BMI 26.0-26.9,adult CAD (coronary artery disease) Carotid artery stenosis Change in bowel habits Chest tightness Chronic kidney disease (CKD), stage III (moderate) Contusion of left leg COPD type B Dysphagia Edema Elevated alkaline phosphatase level Eye pain Female stress incontinence History of colon polyps History of CVA in adulthood History of esophageal stricture HTN - Hypertension Hyperglycemia Hyperlipidemia Insomnia Intertrigo Knee pain, right Large hiatal hernia Leg weakness Leukocytosis Lumbar radiculopathy Mild pulmonary hypertension Moderate persistent asthma Neck pain Seborrheic keratoses Shoulder pain Urinary incontinence, mixed Vasomotor rhinitis Historical Acid reflux Appendectomy blood clots BMI 25.0-25.9,adult Cardiac arrest COPD Glaucoma H/O: TIA HEMATURIA [place] - myocardial infarction Stage 3 chronic kidney disease STEMI - ST elevation myocardial infarction Stroke Procedure/Surgical History Cardiac catheterization, left heart (01/21/2024), PCI - Percutaneous coronary intervention (01/21/2024), Colonoscopy (03/18/2022), Colonoscopy (03/18/2022), Radiofrequency ablation of [...] extraction, D&C - Dilatation and curettage, EGD, Esophagogastroduodenoscopy, kidney artery left stent placement, Removal of ovarian cyst, Stents, bilateral legs. Home Medications acetaminophen, 325 mg, Oral, q6hr, PRN Albuterol (Eqv-Proventil HFA) 90 mcg/inh inhalation aerosol, 2 puff(s), Inhalation, q6hr, 5 refills albuterol 0.083% Inh Melba 3 mL, 2.5 mg= 3 mL, Inhalation, q6hr, PRN, 3 refills amLODIPine 5 mg Tab, 5 mg= 1 tab(s), Oral, Daily, 4 refills aspirin 81 mg oral tablet, 81 mg= 1 tab(s), Oral, Daily atorvastatin 80 mg Tab, 80 mg= 1 tab(s), Oral, Bedtime, 4 refills Atrovent 0.03% [place], 2 spray(s), Nasal, TID, PRN, 1 refills carvedilol 25 mg Tab, 25 mg= 1 tab(s), Oral, BID, 4 refills Cequa 0.09% ophthalmic solution, Eye-Both, q12hr cloNIDine 0.1 mg tab, 0.1 mg, Oral, BID, 4 refills dexamethasone-tobramycin Opth 0.1%-0.3% Susp docusate sodium 100 mg Cap, 100 mg= 1 cap(s), Oral, BID, PRN Dulera 100 mcg-5 mcg/inh inhalation aerosol, 2 puff(s), Inhalation, BID, 6 refills ferrous sulfate 325 mg oral enteric coated tablet, 325 mg= 1 tab(s), Oral, Daily, 5 refills MiraLax, 17 gm, Oral, Daily nitroglycerin 0.4 mg sublingual Tab, 0.4 mg= 1 tab(s), SubLingual, q5min, PRN ondansetron 4 mg Tab, 4 mg= 1 tab(s), Oral, q8hr Pantoprazole [address] Tab, 40 mg= 1 tab(s), Oral, Daily, 4 refills predniSONE 10 mg Tab, 1 -, Oral, As Directed spironolactone 25 mg Tab, 25 mg= 1 tab(s), Oral, Daily, 4 refills ticagrelor 90 mg oral tablet, 90 mg= 1 tab(s), Oral, BID, [address], Eye-Both, q6hr traZODONE 50 mg Tab, 50 mg= 1 tab(s), Oral, Bedtime, 4 refills Allergies lisinopril (Angioedema) Latex (Rash) Skelaxin (SOB - Shortness of breath) penicillin (Rash, SOB - Shortness of breath) shellfish (Unknown) Social History Alcohol - Low Risk, 12/04/2009 Current, Wine, 1-2 times per year, 08/04/2024 Employment/School Retired, 01/19/2011 Home/Environment Lives with Alone. Living situation: Home with assistance. Home equipment: Respiratory treatments, Walker/Cane. Alcohol abuse in household: No. Substance abuse in household: No. Smoker in household: No. Injuries/Abuse/Neglect in household: No. Feels unsafe at home: No. Family/Friends available for support: Yes. Financial concerns: No., 01/19/2011 Other Substance Abuse - Denies Substance Abuse, 01/19/2011 Household substance abuse concerns: No., 08/04/2024 Tobacco - Denies Tobacco Use, (more content not included)...NormalAdena Pike Medical CenterBMPon 63-26-2203Izkvq gap [Moles/Vol]13 mmol/LNormal6-16 [facility] CenterComment on above:Performed By: #### [id number] #### [facility] [address], [place] [address]DRA/Creat Ratio26 No OkwxlTrrj08-39IteqgpAdena Pike Medical Center Comment on above:Performed By: #### [id number] #### [facility] [address], [place] [address]Rsfddad [Mass/Vol]9.5 mg/dLNormal8.9-11.1FOhioHealth Mansfield HospitalComment on above:Performed By: #### [id number] #### [facility] [address], [place] [address]Zdvplqci [Moles/Vol]106 mmol/HVoyngn810-002XfxerxAdena Pike Medical CenterComment on above:Performed By: #### [id number] #### [facility] [address], [place] [address]AP8 [Moles/Vol]25 mmol/LJosgij00-67XoyscaAdena Pike Medical Center Comment on above:Performed By: #### [id number] #### [facility] [address], [place] [address]Vdjyldktdd [Mass/Vol]1.4 mg/dLHigh0.5-1.3FOhioHealth Mansfield HospitalComment on above:Performed By: #### [id number] #### [facility] [address], [place] [address]Sacigke [Mass/Vol]150 mg/oJEtiswo30-635QlzrukAdena Pike Medical CenterComment on above:Performed By: #### [id number] #### [facility] [address], [place] [address]Mknbsuemj [Moles/Vol]4.3 mmol/LNormal3.5-5.3FOhioHealth Mansfield HospitalComment on above:Performed By: #### [id number] #### [facility] [address], [place] [address]Gsbnpb [Moles/Vol]140 mmol/FKilyga811-037ZsevuqAdena Pike Medical CenterComment on above:Performed By: #### [id number] #### [facility] [address], [place] [address]Qzxz nitrogen [Mass/Vol]36 mg/dLHigh5-21[facility]ike Medical CenterComment on above:Performed By: #### [id number] #### [facility] [address] [place] [address]NRC w/ Auto Diffon 82-71-2920Ajkbblpq Absolute0.0 E9/LNormal 0.0-0.2FOhioHealth Mansfield HospitalComment on above:Performed By: #### [id number] #### [facility] [address] [place] [address]Ihluftoev/100 WBC (Bld)0.1 %Normal0.0-2.0[facility] Medical CenterComment on above:Performed By: #### [id number] #### [facility] [address] [place] [address]Hnh Absolute0.0 E9/LNormal0.0-0.5FOhioHealth Mansfield Hospital Comment on above:Performed By: #### [id number] #### [facility] [address], [place] [address]Ffuqaapwsvj/100 WBC (Bld)0.0 %Normal0.0-8.0[facility] Medical CenterComment on above:Performed By: #### [id number] #### [facility] [address], [place] [address]Igrgufmqage distribution width (RBC) [Ratio]15.5 %High10.9-14.2 [facility] Medical CenterComment on above:Performed By: #### [id number] #### [facility] [address], [place] [address]Gantkojqwv (Bld) [Volume fraction]36.3 %Namoim71.0-46.0[facility] Medical CenterComment on above:Performed By: #### [id number] #### [facility] [address] [place] [address]Ikgumwsrdx (Bld) [Mass/Vol]12.3 g/jNDhvcfh15.0-16.0[facility] Medical CenterComment on above:Performed By: #### [id number] #### [facility] [address] [place] [address]Zxzaw Absolute0.8 E9/LLow1.0-4.0[facility] Comment on above:Performed By: #### [id number] #### [facility] [address] [place] [address]Mgvheexegqd/100 WBC (Bld)5.7 %Low14.0-50.0[facility] Medical CenterComment on above:Performed By: #### [id number] #### [facility] [address] [place] [address]PSZ (RBC) [Entitic mass]29.4 kyAjlchv15.0-34.0[facility] Medical CenterComment on above:Performed By: #### [id number] #### [facility] [address], [place] [address]RVWU (RBC) [Mass/Vol]33.9 g/vBFlydek48.4-36.0[facility] Medical CenterComment on above:Performed By: #### [id number] #### [facility] [address] [place] [address]WVV (RBC) [Entitic vol]86.8 oZRulywi34.0-100.0[facility] Medical CenterComment on above:Performed By: #### [id number] #### [facility] [address] [place] [address]Lyxs Absolute0.1 E9/LLow0.2-1.0[facility] Comment on above:Performed By: #### [id number] #### [facility] [address], [place] [address]Iwmitwdln/100 WBC (Bld)0.6 %Low4.0-14.0[facility] Medical CenterComment on above:Performed By: #### [id number] #### [facility] [address], [place] [address]Fhgukj Psuypoxg19.0 E9/LHigh2.0-7.5FOhioHealth Mansfield Hospital Comment on above:Performed By: #### [id number] #### [facility] [address], [place] [address]Akrioq Auto93.6 %High36.0-75.0[facility] Comment on above:Performed By: #### [id number] #### [facility] [address], [place] [address]Bqguuozw445.0 E9/TWpszys564.0-500.0[facility] Comment on above:Performed By: #### [id number] #### [facility] [address] [place] [address]Xupcbrya mean volume (Bld) [Entitic vol]7.9 fLNormal6.4-10.8 [facility] Medical CenterComment on above:Performed By: #### [id number] #### [facility] [address], [place] [address]RIT7.2 E12/LLow4.3-5.9[facility] Medical CenterComment on above:Performed By: #### [id number] #### [facility] [address], [place] [address]KLM72.9 E9/LHigh4.0-11.0[facility] Medical CenterComment on above:Performed By: #### [id number] #### [facility] [address], [place] [address]LDJZCNFXMSkmipjf By: SYSTEM SYSTEM on 98-22-9756Lccqq gap [Moles/Vol]13 mmol/LNormal6 - 16 mEq/LRemisol ChemCalcium [Mass/Vol]9.5 mg/dL Normal8.9 - 11.1 mg/dLRemisol ChemChloride [Moles/Vol]106 mmol/NSzraok723 - 111 mmol/LRemisol ChemCO2 [Moles/Vol]25 mmol/FVjgjwm48 - 31 mmol/LRemisol Chem Creatinine [Mass/Vol]1.4 mg/dLHigh0.5 - 1.3 mg/dLRemisol ChemGFR/1.73 sq M.predicted MDRD (S/P/Bld) [Vol rate/Area]36 mL/min/1.73 m2Low>=59mL/min/1.73 m2 Remisol ChemGlucose [Mass/Vol]150 mg/vDEvozti11 - 199 mg/dLRemisol ChemPotassium [Moles/Vol]4.3 mmol/LNormal3.5 - 5.3 mmol/LRemisol ChemSodium [Moles/Vol]140 mmol/WJmofpj151 - 145 mmol/LRemisol ChemUrea nitrogen [Mass/Vol]36 mg/dLHigh5 - 21 mg/dLRemisol ChemUrea nitrogen/Creatinine [Mass ratio]26 mg/hjWjhe09 - 20 Remisol ChemDischarge Note-Nursingon 55-27-1385Bmdzomeff Note-NursingDischarge Note-Nursing PHYLLISPIEDAD :1935 Visit Date:10/07/2024 Inpatient Discharge Instructions Your Care Team Admitting Physician - Pranav Sibley III, DO Reason for Your Visit SOB Your Diagnosis Asthma exacerbation Acute hypoxemic respiratory failure Chronic kidney disease (CKD), stage III (moderate) CAD (coronary artery disease) History of CVA in adulthood HTN - Hypertension At risk for falls History of esophageal stricture Chest pressure - Adult Cough Respiratory problem Tests Performed Blood Culture Charcoal -- Results Pending -- XR Chest Single View Please visit your patient portal for your results or contact your primary care physician. This Is Your Medications List acetaminophen albuterol (Albuterol (Eqv-Proventil HFA) 90 mcg/inh inhalation aerosol) albuterol (albuterol 0.083% Inh Melba 3 mL) amlodipine (amLODIPine 5 mg Tab) aspirin (aspirin 81 mg oral tablet) atorvastatin (atorvastatin 80 mg Tab) carvedilol (carvedilol 25 mg Tab) clonidine (cloNIDine 0.1 mg tab) cycloSPORINE ophthalmic (Cequa 0.09% ophthalmic solution) dexamethasone-tobramycin ophthalmic (TobraDex ST) dexamethasone-tobramycin ophthalmic (dexamethasone-tobramycin Opth 0.1%-0.3% Susp) docusate (docusate sodium 100 mg Cap) ferrous sulfate (ferrous sulfate 325 mg oral enteric coated tablet) formoterol-mometasone (Dulera 100 mcg-5 mcg/inh inhalation aerosol) ipratropium nasal (Atrovent 0.03% [place]) nitroglycerin (nitroglycerin 0.4 mg sublingual Tab) ondansetron (ondansetron 4 mg Tab) pantoprazole (Pantoprazole [address] Tab) polyethylene glycol 3350 (MiraLax) predniSONE (predniSONE 10 mg Tab) spironolactone (spironolactone 25 mg Tab) ticagrelor (ticagrelor 90 mg oral tablet) trazodone (traZODONE 50 mg Tab) Procedure History Cardiac catheterization, left heart (01/21/2024), PCI - Percutaneous coronary intervention (01/21/2024), Colonoscopy (03/18/2022), Colonoscopy (03/18/2022), Radiofrequency ablation of [...] extraction, D&C - Dilatation and curettage, EGD, Esophagogastroduodenoscopy, kidney artery left stent placement, Removal of ovarian cyst, Stents, bilateral legs. Discharge Vitals Temperature (Axillary) 36.6 ???C Heart Rate (Monitored) 83 Respiratory Rate 18 Blood Pressure 132/61 Height 157 cm Weight 65.7 kg BMI 26.65 What to do next Instructions From Your Doctor Event Name Event Result Discharge Activity Ambulate as tolerated Discharge Diet(s) Regular Pending Diagnostic Test Results None Discharge Instructions Return to ER if symptoms return or worsen Previously Scheduled Follow-Up Appointments Friday 1:15 PM EDT With: Tim HINOJOSA, Marisabel Bauer Where: [facility] [address] [place] [address]- Friday 11:00 AM EDT With: Alyssa Gamble Where: [facility] [address] [place] [address]- Friday 1:30 PM EDT With: Alexx Nicole PA-C Where: [facility] Friday 11:40 AM EDT With: Deonte ROSARIO MD Where: [facility] [address] [place] [address]- Friday2025 11:00 AM EDT With: Where: [facility] [address] [place] [address]- New Follow Up Appointments after Discharge Follow Up with Deonte ROSARIO When: 10/18/2024 11:00 AM EDT Comments: Keep scheduled appointment Please call if you need to reschedule Where: [facility] [address] [place] [address]- Business (1) Follow Up with Marisabel Dumont When: 10/11/2024 01:15 PM EDT Comments: - Esophageal stricture. Needs EGD Where: [address], [address] [place] [phone] Business (1) Medications What How Much When Why Instructions Next Dose New predniSONE (predniSONE 10 mg Tab) 1 Dose Separtor By Mouth As Directed Asthma exacerbation 2 tabs daily x3 days, then 1 tab daily x3 days. Pickup at [facility] Changed pantoprazole (Pantoprazole [address] Tab) 1 Tablets By Mouth Every day Changed ticagrelor (ticagrelor (more content not included)...[facility] CenterDischarge Note-NursingDischarge Note-Nursing PIEDAD ALATORRE :1935 Visit Date:10/07/2024 Inpatient Discharge Instructions Your Care Team Admitting Physician - Pranav Sibley III, DO Reason for Your Visit SOB Your Diagnosis Asthma exacerbation Acute hypoxemic respiratory failure Chronic kidney disease (CKD), stage III (moderate) CAD (coronary artery disease) History of CVA in adulthood HTN - Hypertension At risk for falls History of esophageal stricture Chest pressure - Adult Cough Respiratory problem Tests Performed Blood Culture Charcoal -- Results Pending -- XR Chest Single View Please visit your patient portal for your results or contact your primary care physician. This Is Your Medications List acetaminophen albuterol (Albuterol (Eqv-Proventil HFA) 90 mcg/inh inhalation aerosol) albuterol (albuterol 0.083% Inh Melba 3 mL) amlodipine (amLODIPine 5 mg Tab) aspirin (aspirin 81 mg oral tablet) atorvastatin (atorvastatin 80 mg Tab) carvedilol (carvedilol 25 mg Tab) clonidine (cloNIDine 0.1 mg tab) cycloSPORINE ophthalmic (Cequa 0.09% ophthalmic solution) dexamethasone-tobramycin ophthalmic (TobraDex ST) dexamethasone-tobramycin ophthalmic (dexamethasone-tobramycin Opth 0.1%-0.3% Susp) docusate (docusate sodium 100 mg Cap) ferrous sulfate (ferrous sulfate 325 mg oral enteric coated tablet) formoterol-mometasone (Dulera 100 mcg-5 mcg/inh inhalation aerosol) ipratropium nasal (Atrovent 0.03% [place]) nitroglycerin (nitroglycerin 0.4 mg sublingual Tab) ondansetron (ondansetron 4 mg Tab) pantoprazole (Pantoprazole [address] Tab) polyethylene glycol 3350 (MiraLax) predniSONE (predniSONE 10 mg Tab) spironolactone (spironolactone 25 mg Tab) ticagrelor (ticagrelor 90 mg oral tablet) trazodone (traZODONE 50 mg Tab) Procedure History Cardiac catheterization, left heart (01/21/2024), PCI - Percutaneous coronary intervention (01/21/2024), Colonoscopy (03/18/2022), Colonoscopy (03/18/2022), Radiofrequency ablation of [...] extraction, D&C - Dilatation and curettage, EGD, Esophagogastroduodenoscopy, kidney artery left stent placement, Removal of ovarian cyst, Stents, bilateral legs. Discharge Vitals Temperature (Axillary) 36.6 ???C Heart Rate (Monitored) 83 Respiratory Rate 18 Blood Pressure 132/61 Height 157 cm Weight 65.7 kg BMI 26.65 What to do next Instructions From Your Doctor Event Name Event Result Discharge Activity Ambulate as tolerated Discharge Diet(s) Regular Pending Diagnostic Test Results None Discharge Instructions Return to ER if symptoms return or worsen Previously Scheduled Follow-Up Appointments Friday 1:15 PM EDT With: Tim HINOJOSA, Marisabel Bauer Where: [facility] [address] [place] [address] [place] [address]- Friday 11:00 AM EDT With: Alyssa Gamble Where: [facility] [address], [place] [address]- Friday 1:30 PM EDT With: Alxex Nicole PA-C Where: [facility] Friday 11:40 AM EDT With: PAULO HINOJOSA, Deonte Turpin Where: [facility] [address], [place] [address]- Friday2025 11:00 AM EDT With: Where: [facility] [address], [place] [address]- New Follow Up Appointments after Discharge Follow Up with Deonte ROSARIO When: 10/18/2024 11:00 AM EDT Comments: Keep scheduled appointment Please call if you need to reschedule Where: [facility] [address], [place] [address]- Business (1) Follow Up with Marisabel Dumont When: 10/11/2024 01:15 PM EDT Comments: - Esophageal stricture. Needs EGD Where: [address], [address] [place] [address]- [phone] Business (1) Medications What How Much When Why Instructions Next Dose New predniSONE (predniSONE 10 mg Tab) 1 Dose Separtor By Mouth As Directed Asthma exacerbation 2 tabs daily x3 days, then 1 tab daily x3 days. Pickup at [facility] 10/09 @9am Changed pantoprazole (Pantoprazole [address] Tab) 1 Tablets By Mouth Every day 10/09 @9am Changed tic (more content not included)...[facility] HEMATOLOGYOrdered By: SYSTEM SYSTEM on 80-25-1899Eqleqanpw/100 WBC (Bld)0.1 % Normal0.0 - 2.0 %Remisol HemeBasophils/Leukocytes Auto (Bld) [Pure # fraction] 0.0 E9/LNormal0.0 - 0.2 E9/LRemisol HemeEosinophils (Bld) [#/Vol]0.0 E9/LNormal 0.0 - 0.5 E9/LRemisol HemeEosinophils/100 WBC (Bld)0.0 %Normal0.0 - 8.0 %Remisol HemeErythrocyte distribution width (RBC) [Ratio]15.5 %High10.9 - 14.2 %Remisol HemeHematocrit (Bld) [Volume fraction]36.3 %Lkjnbd48.0 - 46.0 %Remisol Heme Hemoglobin (Bld) [Mass/Vol]12.3 g/cALjluld92.0 - 16.0 gm/dLRemisol Heme Lymphocytes (Bld) [#/Vol]0.8 E9/LLow1.0 - 4.0 E9/LRemisol HemeLymphocytes/100 WBC (Bld)5.7 %Low14.0 - 50.0 %Remisol HemeMCH (RBC) [Entitic mass]29.4 pgNormal 27.0 - 34.0 pgRemisol HemeMCHC (RBC) [Mass/Vol]33.9 g/uFClhdzz40.4 - 36.0 gm/dL Remisol HemeMCV (RBC) [Entitic vol]86.8 zIIusrab77.0 - 100.0 fLRemisol Heme Monocytes (Bld) [#/Vol]0.1 E9/LLow0.2 - 1.0 E9/LRemisol HemeMonocytes/100 WBC (Bld)0.6 %Low4.0 - 14.0 %Remisol HemeNeutrophils (Bld) [#/Vol]13.0 E9/LHigh2.0 - 7.5 E9/LRemisol HemeNeutrophils/100 WBC (Bld)93.6 %High36.0 - 75.0 %Remisol HemePlatelet mean volume (Bld) [Entitic vol]7.9 fLNormal6.4 - 10.8 fLRemisol HemePlatelets (Bld) [#/Vol]253.0 E9/GCvtfqg623.0 - 500.0 E9/LRemisol HemeRBC (Bld) [#/Vol]4.2 E12/LLow4.3 - 5.9 E12/LRemisol HemeWBC corrected for nucl RBC Auto (Bld) [#/Vol]13.9 E9/LHigh4.0 - 11.0 E9/LRemisol HemeInpatient Clinical Summaryon [id number] Clinical SummaryInpatient Clinical Summary [address] [address] Clinical Summary Person Information: Name: PIEDAD ALATORRE Age: 89 Years : 1935 Sex: Female PCP: Deonte ROSARIO MD Marital Status: Race: White Ethnicity: Non- or Language: Djiboutian Visit Id: Visit Reason: Cough; Chest pressure - Adult; Respiratory problem; SENT BY DR ROSARIO - KEMI IN CHEST Speciality: Acuity: Enc Type: Observation Med Service: Medical Arrival: 10/07/2024 11:10:25 Discharge: Dispo Type: Admitted as IP to this Hosp Address: [address] [place] [address] [place] [address] [phone] Provider Notes: Diagnosis: 2:Acute hypoxemic respiratory failure; 3:Chronic kidney disease (CKD), stage III (moderate); 4:CAD (coronary artery disease); 5:History of CVA in adulthood; 6:HTN - Hypertension; 7:At risk for falls;8:History of esophageal stricture Problems Active History of esophageal stricture Blind right eye Chest tightness Mild pulmonary hypertension Urinary incontinence, mixed At risk for falls Moderate persistent asthma Contusion of left leg BMI 26.0-26.9,adult Eye pain Benign hypertension with chronic kidney disease, stage III Chronic kidney disease (CKD), stage III (moderate) Change in bowel habits History of colon polyps Large hiatal hernia Leukocytosis Knee pain, right History of CVA in adulthood Dysphagia Elevated alkaline phosphatase level CAD (coronary artery disease) Neck pain COPD type B Shoulder pain Seborrheic keratoses HTN - Hypertension Hyperlipidemia Hyperglycemia Anemia Vasomotor rhinitis Carotid artery stenosis Insomnia Edema Leg weakness Intertrigo Lumbar radiculopathy Anxiety disorder Female stress incontinence Smoking Status: Never Smoker Functional Status: Sensory Deficits: History of Falls: Mobility Assistance Prior to Admission: ADLs: Minimal assistance Current Level of Assistance for Self-Care/Mobility: Cognitive Status: Oriented x 3 Allergies penicillin (SOB - Shortness of breath) (Rash) Skelaxin (SOB - Shortness of breath) shellfish (Unknown) Latex (Rash) lisinopril (Angioedema) Measurements: Height: 157 cm Weight: 65.7 kg Blood Pressure: 132 mmHg / 61 mmHg BMI: 26.65 kg/m2 Procedures No Procedures Documented Immunizations No Immunizations Documented This Visit Final Med List: acetaminophen 325 Milligram By Mouth every 6 hours as needed as needed for pain. albuterol (Albuterol (Eqv-Proventil HFA) 90 mcg/inh inhalation aerosol) 2 Puffs Inhalation every 6 hours. Refills: 5. albuterol (albuterol 0.083% Inh Melba 3 mL) 3 Milliliter Inhalation every 6 hours as needed for wheezing. dx J44.9. Refills: 3. amlodipine (amLODIPine 5 mg Tab) 1 Tablets By Mouth every day. Refills: 4. aspirin (aspirin 81 mg oral tablet) 1 Tablets By Mouth every day. atorvastatin (atorvastatin 80 mg Tab) 1 Tablets By Mouth at bedtime. Refills: 4. carvedilol (carvedilol 25 mg Tab) 1 Tablets By Mouth 2 times a day. Refills: 4. clonidine (cloNIDine 0.1 mg tab) 0.1 Milligram By Mouth 2 times a day. Refills: 4. cycloSPORINE ophthalmic (Cequa 0.09% ophthalmic solution) Both eyes every 12 hours. dexamethasone-tobramycin ophthalmic (dexamethasone-tobramycin Opth 0.1%-0.3% Susp) 5 mL, 0 Refill(s), INSTILL 1 DROP INTO RIGHT EYE 4 TIMES A DAY. dexamethasone-tobramycin ophthalmic (TobraDex ST) Both eyes every 6 hours. docusate (docusate sodium 100 mg Cap) 1 Capsules By Mouth 2 times a day as needed for constipation. ferrous sulfate (ferrous sulfate 325 mg oral enteric coated tablet) 1 Tablets By Mouth every day. Refills: 5. formoterol-mometasone (Dulera 100 mcg-5 mcg/inh inhalation aerosol) 2 Puffs Inhalation 2 times a day for 30 Days. Refills: 6. ipratropium nasal (Atrovent 0.03% [place]) 2 Sprays Nasal Inhalation 3 times a day as needed Other (see comment). Refills: 1. nitroglycerin (nitroglycerin 0.4 mg sublingual Tab) 1 Tablets Sublingual every 5 minutes as needed for chest pain. ondansetron (ondansetron 4 mg Tab) 1 Tablets By Mouth every 8 hours. pantoprazole (Pantoprazole [address] Tab) 1 Tablets By Mouth every day. Refills: 4. polyethylene glycol 3350 (MiraLax) 17 Gram By Mouth every day. predniSONE (predniSONE 10 mg Tab) 1 Dose Separtor By Mouth As Directed. 2 tabs daily x3 days, then 1 tab daily x3 days.. Refills: 0. spironolactone (spironolactone 25 mg Tab) 1 Tablets By Mouth every day. Refills: 4. ticagrelor (ticagrelor 90 mg oral tablet) 1 Tablets By Mouth 2 times a day. Refills: 4. trazodone (traZODONE 50 mg Tab) 1 Tablets By Mouth at bedtime. Refills: 4. Care Team Members: Attending Physician: Pranav Sibley III, DO Consulting Physician: Referring Physician: Follow up: With: Address: When: Marisabel Dodge (more content not included)...[facility] CenterInpatient Patient Summaryon [id number] Patient SummaryInpatient Patient Summary [place] [address] Patient Discharge Instructions PERSON INFORMATION Name: PIEDAD ALATORRE Date of : 1935 Current Date: 10/08/2024 13:44:24 PHYSICIANS Admitting Physician: Pranav Sibley III, DO Primary Care Physician: Deonte ROSARIO MD Comment: Discharge Diagnosis: 2:Acute hypoxemic respiratory failure; 3:Chronic kidney disease (CKD), stage III (moderate); 4:CAD (coronary artery disease); 5:History of CVA in adulthood; 6:HTN - Hypertension;7:At risk for falls; 8:History of esophageal stricture Condition at Discharge: Stable PIEDAD ALATORRE has been given the following list of follow-up instructions, prescriptions, and patient education materials: PATIENT FOLLOW-UP INFORMATION Diet: Regular Discharge Activity: Ambulate as tolerated Discharge Restrictions: Wound Care Instructions: Remove Your Dressing In Days Call Your Doctor For: IF UNABLE TO CONTACT YOUR PHYSICIAN AND YOU FEEL IT IS AN EMERGENCY, GO TO THE NEAREST EMERGENCY ROOM OR CALL 911 Home Treatment: Devices/Equipment: Shower chair, Walker Special Services: Additional Instructions: Return to ER if symptoms return or worsen Primary Care Physician to provide the following pending test results: None Follow up: With: Address: When: Britanypierrejanice Dumont [address], [address] [place] [address] [phone] Business (1) 10/11/2024 1:15 PM Comments: - Esophageal stricture. Needs EGD With: Address: When: Deonte ROSARIO [facility] [address], [address] [place] [address] Business () 10/18/2024 11:00 AM Comments: Keep scheduled appointment Please call if you need to reschedule In the event that this physician does not participate in your insurance network, please consult with your insurance company to find a nearby participating provider. Type Location Start [facility] Follow Up [facility] 10/11/2024 1:15 PM 10/11/2024 1:30 PM Confirmed FM ER/Hospital Follow Up [facility] 10/18/2024 11:00 AM 10/18/2024 11:40 AM [facility]26/[facility] 1:30 PM 11/26/2024 1:45 PM Confirmed FM Open [facility] 01/11/2025 11:40 AM 01/11/2025 12:00 PM Confirmed FM Medicare Wellness Subsequent [facility] 08/03/2025 11:00 AM 08/03/2025 12:00 PM Confirmed Comment: PHYLLIS Ivan ROSEMARY E, have received the attached patient education materials/instructions and haveverbalized understanding: Patient Signature Date Clinican/Nurse Signature Date HERE ARE THE MEDICATION CHANGES THAT OCCURRED DURING YOUR HOSPITAL STAY New Medications [facility], [facility] [place], [place] [id number], [phone] predniSONE (predniSONE 10 mg Tab) 1 Dose Separtor By Mouth As Directed. 2 tabs daily x3 days, then 1 tab daily x3 days.. Refills: 0. Last Dose: Next Dose: Medications to Continue Taking That Have Changed Other Medications START: pantoprazole (Pantoprazole [address] Tab) 1 Tablets By Mouth every day. Refills: 4. Last Dose: Next Dose: STOP: pantoprazole (pantoprazole 40 mg Oral EC Tab) 40 Milligram By Mouth every day. Refills: 3. START: ticagrelor (ticagrelor 90 mg oral tablet) 1 Tablets By Mouth 2 times a day. Refills: 4. Last Dose: Next Dose: STOP: ticagrelor (Brilinta (ticagrelor) 90 mg oral tablet) 28 EA, 0 Refill(s), TAKE ONE TABLET BY MOUTH TWICE A DAY. Medications to Continue with No Changes Other Medications acetaminophen 325 Milligram By Mouth every 6 hours as needed as needed for pain. Last Dose: Next Dose: albuterol (Albuterol (Eqv-Proventil HFA) 90 mcg/inh inhalation aerosol) 2 Puffs Inhalation every 6 hours. Refills: 5. Last Dose: Next Dose: albuterol (albuterol 0.083% Inh Melba 3 mL) 3 Milliliter Inhalation every 6 hours as needed for wheezing. dx J44.9. Refills: 3. Last Dose: Next Dose: amlodipine (amLODIPine 5 mg Tab) 1 Tablets By Mouth every day. Refills: 4. Last Dose: Next Dose: aspirin (aspirin 81 mg oral tablet) 1 Tablets By Mouth every day. Last Dose: Next Dose: atorvastatin (atorvastatin 80 mg Tab) 1 Tablets By Mouth at bedtime. Refills: 4. Last Dose: Next Dose: carvedilol (carvedilol 25 mg Tab) 1 Tablets By Mouth 2 times a day. Refills: 4. Last Dose: Next Dose: clonidine (cloNIDine 0.1 mg tab) 0.1 Milligram By Mout (more content not included)...[facility] CenterInterdisciplinary Note - Case Manageron [id number] Note - Case ManagerInterdisciplinary Note - Guide Rail Cleaner Patient awake, alert and oriented up in chair. No family present. Patient will round with Dr. Sibley see notes. Patient was able to participate in dc planning. Patient lives at [facility] living and will return at dc. PT=no needs, OT=pending. Patient uses a walker. Patient is on room air. Patient reports Maty Sage should be able to transport at tx, if not, will need transport setup. Patient is observation status. Patient declined OT evaluation.[facility] CenterComment on above:Result Comment: Electronically Signed By: Amada García\.michael\Date and Time Signed: 10/08/24 12:25 EDTInterdisciplinary Note - OTon 10-08-2024 Interdisciplinary Note - OTInterdisciplinary Note - OT No OT eval completed at this time per Pt's request. Per PT eval, Pt functioning supervision in roomwith plan to DC back to Assisted Living when medically stable.[facility] CenterRespiratory Panel by PCRon 10-08-2024 AdenovirusNot detectedNormRegency Hospital ToledoComment on above:Result Comment: Testing was performed using nucleic acid amplification including Influenza A, Influenza A H1, Influenza A H3, Influenza B, RSV A, RSV B, Adenovirus, Human Metapneumovirus, Parainfluenza 1,2,3, and 4, Rhinovirus, Bordetella parapertussis/bronchiseptica, Bordetella holmesii, and Bordetella pertussis.Performed By: #### [id number] #### [facility] [address] holmesiiNot detectedNormalAdena Pike Medical CenterComment on above:Performed By: #### [id number] #### [facility] [address] [place], [place] [address]B. parapertussis/bronchisepticaNot detectedNormalNot Detected [facility] CenterComment on above:Performed By: #### [id number] #### [facility] [address] [place] [id number]. pertussisNot detectedNormalNot DetectedAdena Pike Medical CenterComment on above:Performed By: #### [id number] #### [facility] [address] [place] [id number] MetapneumovirusNot detectedNormRegency Hospital ToledoComment on above:Result Comment: This test result should be correlated with clinical presentations and medical history by a healthcare provider to determine its clinical significance.Performed By: #### [id number] #### [facility] [address] [place], [place] [address]Subiabsil ANot detectedNormalAtrium Health Union Wester Meritus Medical CenterComment on above:Performed By: #### [id number] #### [facility] [address] [place], [place] [address]Erkmokmtr A (subtype H1)Not detectedNormalAdena Pike Medical CenterComment on above:Performed By: #### [id number] #### [facility] [address] [place], [place] [address]Gungrzyvn A (subtype H3)Not detectedNormalAdena Pike Medical CenterComment on above:Performed By: #### [id number] #### [facility] [address] [place], [place] [address]Qyhugdjsy BNot detectedNormalAdena Pike Medical CenterComment on above:Performed By: #### [id number] #### [facility] [address] [place], [place] [address]Wsodggmkgrsyb 1Not detectedNormRegency Hospital Toledo Comment on above:Performed By: #### [id number] #### [facility] [address] [place], [place] [address]Sfodpaqdsslwv 2Not detectedNormRegency Hospital Toledo Comment on above:Performed By: #### [id number] #### [facility] [address] [place], [place] [address]Fmedhojgmxwhr 3Not detectedNormalAdena [facility] Comment on above:Performed By: #### [id number] #### [facility] [address] [place], [place] [address]Fpdowiqzbznif 4Not detectedNormalAdena [facility] Comment on above:Performed By: #### [id number] #### [facility] [address] [place], [place] [address]Qmqb Panel Intrl QCPassNormalAdena Pike Medical CenterComment on above:Performed By: #### [id number] #### [facility] [address] [place], [place] [address]GeehsyprtlLdk detectedNormRegency Hospital ToledoComment on above:Performed By: #### [id number] #### [facility] [address] [place], [place] [address]RRQ ANot detectedNormalAdena Pike Medical CenterComment on above:Performed By: #### [id number] #### [facility] [address] [place], [place] [address]PXC BNot detectedNormRegency Hospital ToledoComment on above:Performed By: #### [id number] #### [facility] [address] [place], [place] [address]sNPVck [id number] mL/min/1.73 m2Low>=59At[facility] Medical CenterComment on above:Performed By: #### [id number] ####[facility] [address] [place], [place] [address]Pcnavwnaaj Visit Summaryon [id number] Visit SummaryAmbulatory Visit Summary PIEDAD ALATORRE :1935 Visit Date:10/07/2024 Ambulatory Visit Instructions Your Diagnosis Chest tightness HTN - Hypertension Hyperlipidemia Hyperglycemia History of CVA in adulthood Chronic kidney disease (CKD), stage III (moderate) CAD (coronary artery disease) COPD type B BMI 26.0-26.9,adult Overweight Mild pulmonary hypertension These Are Your Goals B/P will be in normal range for patient Interventions: Low impact exercises: 2 arm and 2 legs exercises- 10 repetitions daily of each or walk in hallway -Progressing Low sodium diet - Progressing Medication Compliance [...] prescribing physician if questions or concerns acetaminophen albuterol (Albuterol (Eqv-Proventil HFA) 90 mcg/inh inhalation aerosol) albuterol (albuterol 0.083% Inh Melba 3 mL) amlodipine (amLODIPine 5 mg Tab) aspirin (aspirin 81 mg oral tablet) atorvastatin (atorvastatin 80 mg Tab) carvedilol (carvedilol 25 mg Tab) clonidine (cloNIDine 0.1 mg tab) cycloSPORINE ophthalmic (Cequa 0.09% ophthalmic solution) dexamethasone-tobramycin ophthalmic (TobraDex ST) dexamethasone-tobramycin ophthalmic (dexamethasone-tobramycin Opth 0.1%-0.3% Susp) docusate (docusate sodium 100 mg Cap) ferrous sulfate (ferrous sulfate 325 mg oral enteric coated tablet) formoterol-mometasone (Dulera 100 mcg-5 mcg/inh inhalation aerosol) ipratropium nasal (Atrovent 0.03% [place]) nitroglycerin (nitroglycerin 0.4 mg sublingual Tab) ondansetron (ondansetron 4 mg Tab) pantoprazole (Pantoprazole [address] Tab) pantoprazole (pantoprazole 40 mg Oral EC Tab) polyethylene glycol 3350 (MiraLax) spironolactone (spironolactone 25 mg Tab) ticagrelor (Brilinta (ticagrelor) 90 mg oral tablet) ticagrelor (ticagrelor 90 mg oral tablet) trazodone (traZODONE 50 mg Tab) Procedures Performed Cardiac catheterization, left heart (01/21/2024), PCI - Percutaneous coronary intervention (01/21/2024), Colonoscopy (03/18/2022), Colonoscopy (03/18/2022), Radiofrequency ablation of [...] extraction, D&C - Dilatation and curettage, EGD, Esophagogastroduodenoscopy, kidney artery left stent placement, Removal of ovarian cyst, Stents, bilateral legs. Discharge Vitals Heart Rate (Peripheral) 58 Blood Pressure 130/78 Height 157 cm Height 62 in Weight 65.3 kg Weight 143.962 lb BMI 26.49 What to do next Scheduled Follow-Up Appointments Friday 1:30 PM EDT With: Alexx Nicole PA-C Where: [facility] Friday 11:40 AM EDT With: PAULO HINOJOSA, Deonte Turpin Where: [facility] [address] [facility], [facility] [address]- Friday2025 11:00 AM EDT With: Where: [facility] [address] [facility], [place] [address]- Medications What How Much When Why Instructions Unchanged acetaminophen 325 Milligram By Mouth Every 6 hours as needed for as needed for pain Contact prescribing physician if questions or concerns Unchanged albuterol (Albuterol (Eqv-Proventil HFA) 90 mcg/ inh inhalation aerosol) 2 Puffs Inhalation Every 6 hours Acute URI Asthma exacerbation Contact prescribing physician if questions or concerns Unchanged albuterol (albuterol 0.083% Inh Melba 3 mL) 3 Milliliter Inhalation Every 6 hours as neededfor for wheezing Acute URI Asthma exacerbation dx J44.9 Contact prescribing physician if questions or concerns (more content not included)...[facility] Medical CenterBNPon 10-07-2024 Natriuretic peptide B (Bld) [Mass/Vol]77 pg/mLNormal5-80[facility] CenterComment on above:Performed By: #### [id number] #### [facility] [address] [place] [address]NTY w/ Auto Diffon [id number] Absolute0.1 E9/LNormal 0.0-0.2FOhioHealth Mansfield HospitalComment on above:Performed By: #### [id number] #### [facility] [address] [place], [place] [address]Ilnhddkcf/100 WBC (Bld)0.7 %Normal0.0-2.0[facility] CenterComment on above:Performed By: #### [id number] #### [facility] [address] [place] [address]Ozi Absolute0.3 E9/LNormal0.0-0.5FOhioHealth Mansfield Hospital Comment on above:Performed By: #### [id number] #### [facility] [address] [place] [address]Xzsmwsvnvpa/100 WBC (Bld)3.2 %Normal0.0-8.0[facility] CenterComment on above:Performed By: #### [id number] #### [facility] [address] [place] [address]Mryejjfpsun distribution width (RBC) [Ratio]15.5 %High10.9-14.2 [facility] CenterComment on above:Performed By: #### [id number] #### [facility] [address] [place] [address]Duidrouddc (Bld) [Volume fraction]35.8 %Szwphb65.0-46.0[facility] CenterComment on above:Performed By: #### [id number] #### [facility] [address] [place] [address]Dinphdmewt (Bld) [Mass/Vol]12.2 g/rRIkucxm34.0-16.0[facility] CenterComment on above:Performed By: #### [id number] #### [facility] [address] [place] [address]Xrrly Absolute1.0 E9/LNormal1.0-4.0[facility] Comment on above:Performed By: #### [id number] #### [facility] [address] [place] [address]Jwcppkzoqgp/100 WBC (Bld)9.8 %Low14.0-50.0[facility] CenterComment on above:Performed By: #### [id number] #### [facility] [address] [place] [address]EQG (RBC) [Entitic mass]29.5 ydTxlxds52.0-34.0[facility] CenterComment on above:Performed By: #### [id number] #### [facility] [address] [place] [address]RMAY (RBC) [Mass/Vol]33.9 g/rXKzxxlv64.4-36.0[facility] CenterComment on above:Performed By: #### [id number] #### [facility] [address] [place] [address]AIC (RBC) [Entitic vol]87.0 aCFqvhki78.0-100.0[facility] CenterComment on above:Performed By: #### [id number] #### [facility] [address] [place] [address]Yldc Absolute0.7 E9/LNormal0.2-1.0[facility] Comment on above:Performed By: #### [id number] #### [facility] [address] [place] [address]Mzcugyshv/100 WBC (Bld)7.3 %Normal4.0-14.0[facility] CenterComment on above:Performed By: #### [id number] #### [facility] [address] [place] [address]Wqmtsk Absolute7.7 E9/LHigh2.0-7.5FOhioHealth Mansfield Hospital Comment on above:Performed By: #### [id number] #### [facility] [address] [place], [place] [address]Aqclnt Auto79.0 %High36.0-75.0[facility] Comment on above:Performed By: #### [id number] #### [facility] [address] [place], [place] [address]Umhhnish903.0 E9/SDcnjlz767.0-500.0[facility] Comment on above:Performed By: #### [id number] #### [facility] [address] [place], [place] [address]Pdfcctng mean volume (Bld) [Entitic vol]7.4 fLNormal6.4-10.8 [facility] CenterComment on above:Performed By: #### [id number] #### [facility] [address] [place] [address]DVL0.1 E12/LLow4.3-5.9[facility] CenterComment on above:Performed By: #### [id number] #### [facility] [address] [place] [address]TCN8.8 E9/LNormal4.0-11.0[facility] CenterComment on above:Performed By: #### [id number] #### [facility] [address] [place] [address]PFDKIIWEKDuulpml By: SYSTEM SYSTEM on 24-91-4741Wpwqzzm [Moles/Vol]0.6 mmol/LNormal0.5 - 2.2 mmol/LRemisol ChemAlbumin [Mass/Vol]4.2 g/dLNormal3.3 - 5.0 gm/dLRemisol ChemAlbumin/Globulin [Mass ratio]1.8 {ratio} Normal1.1 - 2.2Remisol ChemALP [Catalytic activity/Vol]129 [iU]/dHigh21 - 98 Int._Unit/LRemisol ChemALT No additional P-5'-P [Catalytic activity/Vol]11 [iU]/dNormal6 - 46 Int._Unit/LRemisol ChemAnion gap [Moles/Vol]11 mmol/LNormal6 - 16 mEq/LRemisol ChemAST [Catalytic activity/Vol]14 [iU]/dNormal5 - 43 Int._Unit/LRemisol ChemBilirubin [Mass/Vol]0.5 mg/dLNormal0.0 - 1.1 mg/dLRemisol ChemCalcium [Mass/Vol]9.5 mg/dLNormal8.9 - 11.1 mg/dLRemisol ChemChloride [Moles/Vol]106 mmol/BHttopj274 - 111 mmol/LRemisol ChemCO2 [Moles/Vol]27 mmol/L Qxrxrd64 - 31 mmol/LRemisol ChemCreatinine [Mass/Vol]1.4 mg/dLHigh0.5 - 1.3 mg/dLRemisol ChemGFR/1.73 sq M.predicted MDRD (S/P/Bld) [Vol rate/Area]36 mL/min/1.73 m2Low>=59mL/min/1.73 c6Lzympea ChemGlobulin (S) [Mass/Vol]2.3 g/dL Normal1.4 - 4.0 gm/dLRemisol ChemGlucose [Mass/Vol]103 mg/nPCtviaz12 - 199 mg/dL Remisol ChemLactate [Moles/Vol]0.9 mmol/LNormal0.5 - 2.2 mmol/LRemisol Chem Potassium [Moles/Vol]4.4 mmol/LNormal3.5 - 5.3 mmol/LRemisol ChemProtein [Mass/Vol]6.5 g/dLNormal6.0 - 7.8 gm/dLRemisol ChemSodium [Moles/Vol]140 mmol/L Yysjni226 - 145 mmol/LRemisol ChemTroponin HS9.10 pg/mLLow10.10 - 27.10 pg/mL Remisol ChemComment on above:Interpretive Data: The 95% CI (Confidence Interval) PPV (Positive Predictive Value) for myocardial infarction in females is 38 pg/mL, in males 51 pg/mL. The results should be used in conjunction withclinical conditions of myocardial infarction. (Access High Sensitivity Troponin I Instructions For Use, Alf Roslyn, December 2017)Urea nitrogen [Mass/Vol]30 mg/dLHigh5 - 21 mg/dLRemisol ChemUrea nitrogen/Creatinine [Mass ratio]21 mg/bvYgpq17 - 20Remisol ChemCHEMISTRYOrdered By: Savana Wilkes on [id number] peptide B (Bld) [Mass/Vol]77 pg/mL Normal5 - 80 pg/mLLawrence County Hospital [id number] [Mass/Vol]4.2 g/dLNormal 3.3-5.0A[facility] Medical CenterComment on above:Performed By: #### [id number] #### [facility] [address], [place] [address]Yckorji/Globulin [Mass ratio]1.8 {ratio}Normal1.1-2.2FOhioHealth Mansfield HospitalComment on above:Performed By: #### [id number] #### [facility] [address], [place] [address]Gjb Iwxz258 Int._Unit/TPmqf51-85KwrwhjAdena Pike Medical Center Comment on above:Performed By: #### [id number] #### [facility] [address], [place] [address]RGJ47 Int._Unit/LNormal6-46[facility] Medical CenterComment on above:Performed By: #### [id number] #### [facility] [address], [place] [address]Ebjna gap [Moles/Vol]11 mmol/LNormal6-16[facility] Medical CenterComment on above:Performed By: #### [id number] #### [facility] [address], [place] [address]TVC27 Int._Unit/LNormal5-43[facility] Medical CenterComment on above:Performed By: #### [id number] #### [facility] [address], [place] [address]Fcdc Total0.5 mg/dLNormal0.0-1.1FOhioHealth Mansfield Hospital Comment on above:Performed By: #### [id number] #### [facility] [address], [place] [address]RKP/Creat Ratio21 No SnynsVfaw02-77WupoiaAdena Pike Medical Center Comment on above:Performed By: #### [id number] #### [facility] [address], [place] [address]Rggmecu [Mass/Vol]9.5 mg/dLNormal8.9-11.1FOhioHealth Mansfield HospitalComment on above:Performed By: #### [id number] #### [facility] [address], [place] [address]Oyiewuel [Moles/Vol]106 mmol/IPunvjs158-509JharhrAdena Pike Medical CenterComment on above:Performed By: #### [id number] #### [facility] [address], [place] [address]BM8 [Moles/Vol]27 mmol/RVgxvxl48-91DhqtslAdena Pike Medical Center Comment on above:Performed By: #### [id number] #### [facility] [address], [place] [address]Gguxihioty [Mass/Vol]1.4 mg/dLHigh0.5-1.3FOhioHealth Mansfield HospitalComment on above:Performed By: #### [id number] #### [facility] [address], [place] [address]Deyhccee (S) [Mass/Vol]2.3 g/dLNormal1.4-4.0A[facility]ike Medical CenterComment on above:Performed By: #### [id number] #### [facility] [address], [place] [address]Zbarnmq [Mass/Vol]103 mg/bXKnmuuj39-614UcfvwdAdena Pike Medical CenterComment on above:Performed By: #### [id number] #### [facility] [address], [place] [address]Arkudoqia [Moles/Vol]4.4 mmol/LNormal3.5-5.3FOhioHealth Mansfield HospitalComment on above:Performed By: #### [id number] #### [facility] [address], [place] [address]Ehzklmd [Mass/Vol]6.5 g/dLNormal6.0-7.8A[facility]ike Medical CenterComment on above:Performed By: #### [id number] #### [facility] [address], [place] [address]Bzzafn [Moles/Vol]140 mmol/NWhyekv493-101FhzttcAdena Pike Medical CenterComment on above:Performed By: #### [id number] #### [facility] [address], [place] [address]Hivv nitrogen [Mass/Vol]30 mg/dLHigh5-21A[facility] Medical CenterComment on above:Performed By: #### [id number] #### [facility] [address], [place] [address]VVRGFLRWJBLNvxzeta By: Savana Wilkes on 66-52-9962pTSS Coag (PPP) [Time]26.3 hYcrbxq86.1 - 36.5 second(s)[facility] Auto CoagComment on above: Interpretive Data: Parameter 15 days - 4 weeks 1 - 5 months 6 - 11 months 1 - 5 years 6 - 10 years 11 - 17 years PTT Mean: 35.4 (27.6-45.6) Mean: 33.5 (24.8-40.7) Mean: 32.4 (25.1-40.7) Mean: 31.6 (24.0-39.2) Mean: 31.6 (26.9-38.7) Mean: 31.0 (24.6-38.4) Pediatric Reference ranges were obtained from a study by Joel Knox et al. prepared from 1437 samples obtained at 7 different centers using the same coagulation reagent and instrumentation as [facility]. Currently there are no coagulation studies available worldwide for children to 14 days, andno normal ranges. Heparin therapeutic range (represented by Anti-Factor Xa activity of 0.2 - 0.4 U/mL) corresponds to PTT of 56.6 - 109.0 sec.INR Coag (PPP) [Relative time]0.97 {INR}Invalid Interpretation CodeINTEGRIS HEALTH [facility]MON[facility] – [place] Auto CoagComment on above:Interpretive Data: INR results are specifically intended to assess patients stabilized on long-term Anticoagulation therapy suggested INR s Less Intensive Anticoagulation 2.0 3.0 Conventional Range 3.0 4.5PT Coag (PPP) [Time]10.9 sNormal9.4 - 12.5 second(s) [facility] Auto CoagComment on above:Interpretive Data: 15 days - 4 weeks 1 - 5 months 6 -11 months 1-5 years 6-10 years 11 -17 years Mean: 11.2 (9.5-12.6) Mean: 11.0 (9.7-12.8) Mean: 11.0 (9.8-13.0) Mean: 11.3 (9.9-13.4) Mean: 11.7 (10.0-14.6) Mean: 11.8 (10.0 - 14.1) Pediatric Reference ranges were obtained from a study by jose Liang al. prepared from 1437 samples obtained at 7 different centers using the same coagulation reagent and instrumentation as [facility]. Currently there are no coagulation studies available worldwide for children to 14 days, andno normal ranges.ED Clinical Summaryon [id number] Clinical SummaryED Clinical Summary [place] [id number] ED Clinical Summary Person Information Name: PIEDAD ALATORRE Lissette/[facility] Age: 89 Years : 1935 Sex: Female Language: Djiboutian PCP: Deonte ROSARIO MD Marital Status: Visit Id: Visit Reason: Cough; Chest pressure - Adult; Respiratory problem; SENT BY DR ROSARIO - TIGHTNESS IN CHEST Speciality: Acuity: 2 Enc Type: Observation Med Service: Medical Arrival: 10/07/2024 11:10:25 Discharge: LOS: 000 05:18 Checkin: 10/07/2024 11:10:25 Checkout: 10/07/2024 16:28:44 Dispo Type: Admitted as IP to this [facility] EVENTS: Event Name Event Status Request Date/Time Start Date/Time Complete Date/Time Arrive Complete 10/07/2024 11:10:25 10/07/2024 11:10:25 10/07/2024 11:10:25 Document Home Meds Request 10/07/2024 11:10:25 Triage Complete 10/07/2024 11:10:25 10/07/2024 11:19:43 10/07/2024 11:19:43 Bed Assign Complete 10/07/2024 11:15:48 10/07/2024 11:15:48 10/07/2024 11:15:48 Dr Exam Complete 10/07/2024 11:15:48 10/07/2024 11:25:36 10/07/2024 11:25:36 RN Exam Complete 10/07/2024 11:15:48 10/07/2024 12:44:48 10/07/2024 12:44:48 EKG Complete 10/07/2024 11:18:32 10/07/2024 11:21:37 Registration Complete 10/07/2024 11:19:52 10/07/2024 11:19:52 10/07/2024 11:19:52 Reg Complete Request 10/07/2024 11:19:52 Reg Bed Request Complete 10/07/2024 11:19:52 10/07/2024 11:19:52 10/07/2024 11:19:52 Registration Complete 10/07/2024 11:25:36 10/07/2024 15:19:49 10/07/2024 15:19:49 Pending Labs Inlab 10/07/2024 11:33:47 Lab Inlab 10/07/2024 11:33:47 Patient Care Request 10/07/2024 11:33:47 X-Ray Complete 10/07/2024 11:33:47 10/07/2024 11:57:32 10/07/2024 12:15:56 RT Request 10/07/2024 11:33:47 Pending Labs Complete 10/07/2024 11:50:53 10/07/2024 11:50:53 10/07/2024 12:23:58 Lab Complete 10/07/2024 11:50:53 10/07/2024 11:50:53 10/07/2024 12:23:58 Wet Read Request 10/07/2024 12:15:56 Pending Labs Complete 10/07/2024 12:49:51 10/07/2024 12:49:51 10/07/2024 12:49:51 Meds Admin Complete 10/07/2024 13:00:14 10/07/2024 14:47:15 RT Tx/ABG Request 10/07/2024 13:00:14 RT Tx/ABG Request 10/07/2024 13:00:14 Consult Request 10/07/2024 14:08:20 Hospitalist Consult Request 10/07/2024 14:08:20 Observation Request 10/07/2024 14:58:42 Patient Care Request 10/07/2024 14:58:42 Patient Care Request 10/07/2024 14:58:43 Patient Care Request 10/07/2024 14:58:43 Medicare Form Complete 10/07/2024 14:58:45 10/07/2024 15:19:54 Patient Care Request 10/07/2024 14:58:45 Patient Care Request 10/07/2024 14:58:45 ADDRESS: [address] [place] [address] [place] [phone] PHYS DOC NOTES: MEDICAL INFORMATION: Prescriptions Given: Medications to Continue with No Changes Other Medications acetaminophen 325 Milligram By Mouth every 6 hours as needed as needed for pain. albuterol (Albuterol (Eqv-Proventil HFA) 90 mcg/inh inhalation aerosol) 2 Puffs Inhalation every 6 hours. Refills: 5. albuterol (albuterol 0.083% Inh Melba 3 mL) 3 Milliliter Inhalation every 6 hours as needed for wheezing. dx J44.9. Refills: 3. amlodipine (amLODIPine 5 mg Tab) 1 Tablets By Mouth every day. Refills: 4. aspirin (aspirin 81 mg oral tablet) 1 Tablets By Mouth every day. atorvastatin (atorvastatin 80 mg Tab) 1 Tablets By Mouth at bedtime. Refills: 4. carvedilol (carvedilol 25 mg Tab) 1 Tablets By Mouth 2 times a day. Refills: 4. clonidine (cloNIDine 0.1 mg tab) 0.1 Milligram By Mouth 2 times a day. Refills: 4. cycloSPORINE ophthalmic (Cequa 0.09% ophthalmic solution) Both eyes every 12 hours. dexamethasone-tobramycin ophthalmic (dexamethasone-tobramycin Opth 0.1%-0.3% Susp) 5 mL, 0 Refill(s), INSTILL 1 DROP INTO RIGHT EYE 4 TIMES A DAY. dexamethasone-tobramycin ophthalmic (TobraDex ST) Both eyes every 6 hours. docusate (docusate sodium 100 mg Cap) 1 Capsules By Mouth 2 times a day as needed for constipation. ferrous sulfate (ferrous sulfate 325 mg oral enteric coated tablet) 1 Tablets By Mouth every day. Refills: 5. formoterol-mometasone (Dulera 100 mcg-5 mcg/inh inhalation aerosol) 2 Puffs Inhalation 2 times a day for 30 Days. Refills: 6. ipratropium nasal (Atrovent 0.03% [place]) 2 Sprays Nasal Inhalation 3 times a day as needed Other (see comment). Refills: 1. nitroglycerin (nitroglycerin 0.4 mg sublingual Tab) 1 Tablets Sublingual every 5 minutes as needed for chest pain. ondansetron (ondansetron 4 mg Tab) 1 Tablets By Mouth every 8 hours. pantoprazole (Pantoprazole [address] Tab) 1 Tablets By Mouth every day. Refills: 4. pantoprazole (pantoprazole 40 mg Oral EC Tab) 40 Milligram By Mouth every day. Refills: 3. polyethylene glycol 3350 (MiraLax) 17 Gram By Mouth every day. spironolactone (spironolactone 25 mg Tab) 1 Tablets By Mouth every day. Refills: 4. ticagrelor (Brilinta (ticagrelor) 90 mg oral tablet) 28 EA, 0 Refill(s), TAKE ONE TABLET BY MOUTH TWICE A DAY. ticagrelor (ticagrelor 90 mg oral tablet) 1 Tablet (more content not included)...[facility] Clinical SummaryED Clinical Summary [address] [address] ED Clinical Summary Person Information Name: PIEDAD ALATORRE Lissette/[facility] Age: 89 Years : 1935 Sex: Female Language: Djiboutian PCP: Deonte ROSARIO MD Marital Status: Visit Id: Visit Reason: Cough; Chest pressure - Adult; Respiratory problem; SENT BY DR ROSARIO - TIGHTNESS IN CHEST Speciality: Acuity: 2 Enc Type: Observation Med Service: Medical Arrival: 10/07/2024 11:10:25 Discharge: LOS: 000 04:22 Checkin: 10/07/2024 11:10:25 Checkout: Dispo Type: EVENTS: Event Name Event Status Request Date/Time Start Date/Time Complete Date/Time Arrive Complete 10/07/2024 11:10:25 10/07/2024 11:10:25 10/07/2024 11:10:25 Document Home Meds Request 10/07/2024 11:10:25 Triage Complete 10/07/2024 11:10:25 10/07/2024 11:19:43 10/07/2024 11:19:43 Bed Assign Complete 10/07/2024 11:15:48 10/07/2024 11:15:48 10/07/2024 11:15:48 Dr Exam Complete 10/07/2024 11:15:48 10/07/2024 11:25:36 10/07/2024 11:25:36 RN Exam Complete 10/07/2024 11:15:48 10/07/2024 12:44:48 10/07/2024 12:44:48 EKG Complete 10/07/2024 11:18:32 10/07/2024 11:21:37 Registration Complete 10/07/2024 11:19:52 10/07/2024 11:19:52 10/07/2024 11:19:52 Reg Complete Request 10/07/2024 11:19:52 Reg Bed Request Complete 10/07/2024 11:19:52 10/07/2024 11:19:52 10/07/2024 11:19:52 Registration Complete 10/07/2024 11:25:36 10/07/2024 15:19:49 10/07/2024 15:19:49 Pending Labs Collected 10/07/2024 11:33:47 Lab Collected 10/07/2024 11:33:47 Patient Care Request 10/07/2024 11:33:47 X-Ray Complete 10/07/2024 11:33:47 10/07/2024 11:57:32 10/07/2024 12:15:56 RT Request 10/07/2024 11:33:47 Pending Labs Complete 10/07/2024 11:50:53 10/07/2024 11:50:53 10/07/2024 12:23:58 Lab Complete 10/07/2024 11:50:53 10/07/2024 11:50:53 10/07/2024 12:23:58 Wet Read Request 10/07/2024 12:15:56 Pending Labs Complete 10/07/2024 12:49:51 10/07/2024 12:49:51 10/07/2024 12:49:51 Meds Admin Complete 10/07/2024 13:00:14 10/07/2024 14:47:15 RT Tx/ABG Request 10/07/2024 13:00:14 RT Tx/ABG Request 10/07/2024 13:00:14 Consult Request 10/07/2024 14:08:20 Hospitalist Consult Request 10/07/2024 14:08:20 Observation Request 10/07/2024 14:58:42 Patient Care Request 10/07/2024 14:58:42 Patient Care Request 10/07/2024 14:58:43 Patient Care Request 10/07/2024 14:58:43 Medicare Form Complete 10/07/2024 14:58:45 10/07/2024 15:19:54 Patient Care Request 10/07/2024 14:58:45 Patient Care Request 10/07/2024 14:58:45 ADDRESS: [address] [place] [address] [place] [phone] PHYS DOC NOTES: MEDICAL INFORMATION: Prescriptions Given: Medications to Continue with No Changes Other Medications acetaminophen 325 Milligram By Mouth every 6 hours as needed as needed for pain. albuterol (Albuterol (Eqv-Proventil HFA) 90 mcg/inh inhalation aerosol) 2 Puffs Inhalation every 6 hours. Refills: 5. albuterol (albuterol 0.083% Inh Melba 3 mL) 3 Milliliter Inhalation every 6 hours as needed for wheezing. dx J44.9. Refills: 3. amlodipine (amLODIPine 5 mg Tab) 1 Tablets By Mouth every day. Refills: 4. aspirin (aspirin 81 mg oral tablet) 1 Tablets By Mouth every day. atorvastatin (atorvastatin 80 mg Tab) 1 Tablets By Mouth at bedtime. Refills: 4. carvedilol (carvedilol 25 mg Tab) 1 Tablets By Mouth 2 times a day. Refills: 4. clonidine (cloNIDine 0.1 mg tab) 0.1 Milligram By Mouth 2 times a day. Refills: 4. cycloSPORINE ophthalmic (Cequa 0.09% ophthalmic solution) Both eyes every 12 hours. dexamethasone-tobramycin ophthalmic (dexamethasone-tobramycin Opth 0.1%-0.3% Susp) 5 mL, 0 Refill(s), INSTILL 1 DROP INTO RIGHT EYE 4 TIMES A DAY. dexamethasone-tobramycin ophthalmic (TobraDex ST) Both eyes every 6 hours. docusate (docusate sodium 100 mg Cap) 1 Capsules By Mouth 2 times a day as needed for constipation. ferrous sulfate (ferrous sulfate 325 mg oral enteric coated tablet) 1 Tablets By Mouth every day. Refills: 5. formoterol-mometasone (Dulera 100 mcg-5 mcg/inh inhalation aerosol) 2 Puffs Inhalation 2 times a day for 30 Days. Refills: 6. ipratropium nasal (Atrovent 0.03% [place]) 2 Sprays Nasal Inhalation 3 times a day as needed Other (see comment). Refills: 1. nitroglycerin (nitroglycerin 0.4 mg sublingual Tab) 1 Tablets Sublingual every 5 minutes as needed for chest pain. ondansetron (ondansetron 4 mg Tab) 1 Tablets By Mouth every 8 hours. pantoprazole (Pantoprazole [address] Tab) 1 Tablets By Mouth every day. Refills: 4. pantoprazole (pantoprazole 40 mg Oral EC Tab) 40 Milligram By Mouth every day. Refills: 3. polyethylene glycol 3350 (MiraLax) 17 Gram By Mouth every day. spironolactone (spironolactone 25 mg Tab) 1 Tablets By Mouth every day. Refills: 4. ticagrelor (Brilinta (ticagrelor) 90 mg oral tablet) 28 EA, 0 Refill(s), TAKE ONE TABLET BY MOUTH TWICE A DAY. ticagrelor (ticagrelor 90 mg oral tablet) 1 Tablets By Mouth 2 times a day. Refills: 4. (more content not included)...NormalFisher [facility]arel Medical CenterED Note-Physician on [id number] Note-PhysicianED Note-Physician Basic Information Time Seen: Darin Maza DOGrsi 10/07/2024 11:25 Chief Complaint pt states she woke up with a cough and felt like she wasn't breathing as well as she normally does,statweshas a tightness in her chest. all started today. History of Present Illness 81-year-old female to the emergency department with chief complaint of difficulty breathing. Patient reports that she has had a cough for the last few days. It is not productive. She reports she has had some chest tightness as well. She denies any fever, sweats, chills. No nausea or vomiting. She denies a history of COPD. Review of Systems A 10 point review of systems is negative except as noted above. Medical and Surgical History: Reviewed and noted Social history: Lives at home Tobacco: Denies Physical Exam Vitals & Measurements T: 36.7 ???C(Oral) HR: 66(Monitored) RR: 24 BP: 144/74 SpO2: 100% HT: 157 cm WT: 65.7 kg BMI: 26.65 VITALS: I have reviewed the triage vital signs. GENERAL: Well developed, well appearing adult in mild respiratory distress NEURO: Alert and oriented. Moves all extremities. Face is symmetric and expressive. EYES: PERRL. No scleral icterus or conjunctival injection. No discharge. HENT: Normocephalic, atraumatic. Hearing is grossly intact. Nares grossly patent and without discharge. Mucous membranes moist. NECK: No JVD. Patient moves neck without restriction. CARDIO: Rhythm regular. Normal rate. No murmur, rub, or gallop. Pulses equal bilaterally in the upper and lower extremity. No lower extremity edema. PULM: Rhonchi that clear with coughing. Trace wheezes. Mild increased work of breathing. Mild conversational dyspnea. GI/: Abdomen is soft and non-tender. Normoactive bowel sounds. EXTREMITIES: Symmetric muscle bulk. No joint swelling. No clubbing, cyanosis, or deformity. SKIN: Warm and dry. Normal turgor. No rash or lesions appreciated. PSYCH: Mood, affect, and interaction is appropriate to the setting. Procedure Critical Care Procedure Note Authorized and Performed by: Darin Maza DO Total critical care time: 32 min Due to a high probability of clinically significant, life threatening deterioration, the patient required my highest level of preparedness to intervene emergently and I personally spent this criticalcare time directly and personally managing the patient. This critical care time included obtaining a history; examining the patient; pulse oximetry; ordering and review of studies; arranging urgent treatment with development of a management plan; evaluation of patient's response to treatment; frequent reassessment; and, discussions with other providers. This critical care time was performed to assess and manage the high probability of imminent, life-threatening deterioration that could result in multi-organ failure. It was exclusive of separately billable procedures and treating other patients and teaching time. Please see MDM section and the rest of the note for further information on patient assessment and treatment. Medical Decision Making 81-year-old female to the emergency department chief complaint of shortness of breath. She is hypoxic at 88% on room air in bed. She is placed on 2 L nasal cannula. CBC and chemistry are unremarkable. Her troponin is within normal limits. BNP is within normal limits excluding CHF in this setting. Chest x-ray is without a focal infiltrate. EKG without evidence ofischemia or arrhythmia. Lung sounds did improve and she is moving more air after the DuoNeb treatment. She is given Solu-Medrol. Suspect COPD exacerbation. She does have a history of COPD listed in her chart. Case discussed with hospitalist who agrees admit this patient to his service. Assessment/Plan Acute hypoxemic respiratory failure (J96.01: Acute respiratory failure with hypoxia) COPD with acute exacerbation (J44.1: Chronic obstructive pulmonary disease with (acute) exacerbation) Orders: albuterol-ipratropium, 3 mL, Soln-Inh, Inhalation, Once, Stop date 10/07/24 12:59:00 EDT, STAT, Start date 10/07/24 12:59:00 EDT methylPREDNISolone, 125 mg = 2 mL, Injection, IV Push, Once, Stop date 10/07/24 13:00:00 EDT, STAT,Start date 10/07/24 13:00:00 EDT, 10/07/24 13:00:00 EDT B-Type Natriuretic Peptide Blood Culture Charcoal Blood Culture Charcoal CBC w/ Auto Diff Comprehensive Metabolic Panel Continuous Pulse Oximetry ECG 12 Lead Adult ED Cardiac Monitoring ED Physician consult Hospitalist for continued care eGFR Extra SST Tube Lactic Acid Lactic Acid Oxygen Therapy PT & PTT Saline Lock Insert Troponin XR Chest Single View Medications Administered Given DuoNeb 2.5 mg-0.5 mg/3 mL Soln-Inh, 3 mL, Inhalation Disposition Plan Patient Discharge Condition Fair Discharge Disposition Admitted Discharge Prescription List Prescriptions No active prescription medications Follow-up No qualifying data available Problem List/Past Medical History Ongoing An (more content not included)...[facility] CenterComment on above:Result Comment: Electronically Signed By: Darin Maza DO\.br\Date and Time Signed: 10/07/24 14:56 EDTED Patient Education Noteon [id number] Patient Education NoteED [facility] NoteED Patient Education [facility] ED Patient Summaryon [id number] Patient SummaryED Patient Summary [place] [id number] Patient Discharge Instructions Person Information Name: PIEDAD ALATORRE Age: 89 Years Arrival Date: 10/07/2024 11:10:25 Discharge Diagnosis: Acute hypoxemic respiratory failure; COPD with acute exacerbation Primary Care Physician: Deonte ROSARIO MD Provider Information Primary Provider: Darin Maza DO Advanced Search Director:None The exam and treatment you received in the Emergency Department were for an urgent problem and are not intended as complete care. It is important that you follow up with a doctor, nurse practitioner,or physician???s physician assistant psychiatry for ongoing care. If your symptoms become worse or you do not improve asexpected and you are unable to reach your usual health care provider, you should return to the Emergency Department. We are available 24 hours a day. PIEDAD ALATORRE has been given the following list of patient education materials, prescriptions and follow-up instructions: Follow-up Instructions: In the event that this physician does not participate in your insurance network, please consult with your insurance company to find a nearby participating provider. Patient Education Materials: A MESSAGE TO ALL PATIENTS REGARDING OPIOIDS PRESCRIPTION OPIOIDS: WHAT YOU NEED TO KNOW Prescription opioids can be used to help relieve fbizpqub-gh-udccrg pain and are often prescribed following a [...] as well, even when taken as directed: ??? Tolerance???meaning you might need to take more of the medication for the same pain relief ??? Physical dependence???meaning you have symptoms of withdrawal when a medication is stopped ??? Increased sensitivity to pain ??? Constipation ??? Nausea, vomiting, and dry mouth ??? Sleepiness and dizziness ??? Confusion ??? Depression ??? Low levels of testosterone that can result in lower sex drive, energy, and strength ??? Itching and sweating RISKS ARE GREATER WITH: ??? History of drug misuse, substance use disorder, or overdose ??? Mental health conditions (such as depression or anxiety) ??? Sleep apnea ??? Older age (65 years and older) ??? Avoid alcohol while taking prescription opioids. Also, unless specifically advised by your health care provider, medications to avoid include: ??? Benzodiazepines (such as Xanax or Valium) ??? Muscle relaxants (such as Soma or Flexeril) ??? Hypnotics (such as Ambien or Lunesta) ??? Other prescription opioids KNOW YOUR OPTIONS Talk to your health care provider about ways to manage your pain that don???t involve prescription opioids. Some of these options may actually work better and have fewer risks and side effects. Options may include: ??? Pain relievers such as acetaminophen, ibuprofen, and naproxen ??? Some medication that are also used for depression or seizures ??? Physical therapy and exercise ??? Cognitive behavioral therapy, a psychological, goal-directed approach, in which patients learn how to modify physical, behavioral, and emotional triggers of pain and stress. IF YOU ARE PRESCRIBED OPIOIDS FOR PAIN: ??? Never take opioids in greater amounts or more often than prescribed. ??? Follow up with your primary health care provider. o Work together to create a plan on how to manage your pain. o Talk about ways to help manage your pain that don???t involve prescription opioids. o Talk about any and all concerns and side effects. ??? Help prevent misuse and abuse o Never sell or share prescription opioids. o Never use another person???s prescription opioids. ??? Store prescription opioids in a secure place and out of reach of others (this may include visitors, children, friends, and family). ??? Safely dispose of unused prescription opioids: Find your community drug take-back program or your pharmacy mail-back program, or flush them down the toilet, following guidance from the Food and Drug Administration (www.fda.gov/Drugs/ResourcesForYou). ??? Visit www.cdc.gov/drugoverdose to learn about the risks of opioids abuse and overdose. ??? If you believe you may be struggling with addiction, tell your health patient care associate and askfor guidance or call [facility]???S National Helpline at 1-815-342-Baob[employer] Planet. v Source: [facility] and [facility] (more content not included)...Normal [facility] Patient SummaryED Patient Summary [place] [id number] Patient Discharge Instructions Person Information Name: PIEDAD ALATORRE Age: 89 Years Arrival Date: 10/07/2024 11:10:25 Discharge Diagnosis: Acute hypoxemic respiratory failure; COPD with acute exacerbation Primary Care Physician: Deonte ROSARIO MD Provider Information Primary Provider: Darin Maza DO Advanced Search Director:None The exam and treatment you received in the Emergency Department were for an urgent problem and are not intended as complete care. It is important that you follow up with a doctor, nurse practitioner,or physician???s physician assistant psychiatry for ongoing care. If your symptoms become worse or you do not improve asexpected and you are unable to reach your usual health care provider, you should return to the Emergency Department. We are available 24 hours a day. TOMASA ALATORREY Migel has been given the following list of patient education materials, prescriptions and follow-up instructions: Follow-up Instructions: In the event that this physician does not participate in your insurance network, please consult with your insurance company to find a nearby participating provider. Patient Education Materials: A MESSAGE TO ALL PATIENTS REGARDING OPIOIDS PRESCRIPTION OPIOIDS: WHAT YOU NEED TO KNOW Prescription opioids can be used to help relieve sbuuaufx-xb-rzockw pain and are often prescribed following a [...] as well, even when taken as directed: ??? Tolerance???meaning you might need to take more of the medication for the same pain relief ??? Physical dependence???meaning you have symptoms of withdrawal when a medication is stopped ??? Increased sensitivity to pain ??? Constipation ??? Nausea, vomiting, and dry mouth ??? Sleepiness and dizziness ??? Confusion ??? Depression ??? Low levels of testosterone that can result in lower sex drive, energy, and strength ??? Itching and sweating RISKS ARE GREATER WITH: ??? History of drug misuse, substance use disorder, or overdose ??? Mental health conditions (such as depression or anxiety) ??? Sleep apnea ??? Older age (65 years and older) ??? Avoid alcohol while taking prescription opioids. Also, unless specifically advised by your health care provider, medications to avoid include: ??? Benzodiazepines (such as Xanax or Valium) ??? Muscle relaxants (such as Soma or Flexeril) ??? Hypnotics (such as Ambien or Lunesta) ??? Other prescription opioids KNOW YOUR OPTIONS Talk to your health care provider about ways to manage your pain that don???t involve prescription opioids. Some of these options may actually work better and have fewer risks and side effects. Options may include: ??? Pain relievers such as acetaminophen, ibuprofen, and naproxen ??? Some medication that are also used for depression or seizures ??? Physical therapy and exercise ??? Cognitive behavioral therapy, a psychological, goal-directed approach, in which patients learn how to modify physical, behavioral, and emotional triggers of pain and stress. IF YOU ARE PRESCRIBED OPIOIDS FOR PAIN: ??? Never take opioids in greater amounts or more often than prescribed. ??? Follow up with your primary health care provider. o Work together to create a plan on how to manage your pain. o Talk about ways to help manage your pain that don???t involve prescription opioids. o Talk about any and all concerns and side effects. ??? Help prevent misuse and abuse o Never sell or share prescription opioids. o Never use another person???s prescription opioids. ??? Store prescription opioids in a secure place and out of reach of others (this may include visitors, children, friends, and family). ??? Safely dispose of unused prescription opioids: Find your community drug take-back program or your pharmacy mail-back program, or flush them down the toilet, following guidance from the Food and Drug Administration (www.fda.gov/Drugs/ResourcesForYou). ??? Visit www.cdc.gov/drugoverdose to learn about the risks of opioids abuse and overdose. ??? If you believe you may be struggling with addiction, tell your health patient care associate and askfor guidance or call [facility]???S National Helpline at 3-738-623-DCOQ. v Source: [place] Department of Health and [facility] (more content not included)...Normal [facility] Medicine Office/Clinic Noteon [id number] Medicine Office/Clinic NoteFami Medicine Office/Clinic Note Chief Complaint F/U: htn, chol, copd. May labs scanned in([facility] Concerns: rt eye pain, discharge x1year, will not allow an eye appt to be made. SOB, abd tightness today. HPI Staff Last colonoscopy 03-18-2022 AWV done 2024 History of Present Illness Here for med follow up. She c/o her R eye hurting, itching and not seeing out of it. Her left eye is also affected now. She has seen optho but has not been there for at least several months to a year. She also has CAD, COPD, Asthma. She feels chest tightness and SOB today. She states she has been fine previous to this. Tightness is substernal area. No radiation down her arm or up her neck. She notes some trouble swallowing her oatmeal this morning but normally does not have trouble swallowing. Review of Systems PHQ Score Initial Depression Screen Score: 0 SCORE Physical Exam Vitals & Measurements HR: 58(Peripheral) BP: 130/78 HT: 62 in HT: 157 cm WT: 143.962 lb WT: 65.3 kg BMI: 26.49 General: Well developed, well nourished, in no acute distress Eyes: R eye scarred -blind, EOMI Ears: _HOH Nose: No deformity, discharge, inflammation, or lesions Mouth: MMM. Oropharynx and posterior pharynx without lesions or exudates. Tongue WNL Neck: _no bruit Lungs: Clear but diminished breath sounds Cardio: Regular rate and rhythm, normal S1 and S2, no murmur, no rub Abdomen: Soft, non-distended, non-tender Musculoskeletal: No joint swelling or synovitis noted Extremity: No clubbing, cyanosis or edema. Neurologic: Grossly normal Skin: No rashes, ulcerations, or suspicious lesions Mental Status: Alert and oriented x3. Mildly anxious Assessment/Plan 1. Chest tightness (R07.89: Other chest pain) seems atypical but with her hx she needs ED eval to r/o ACS etc. She has known CAD Her four horse hitch driver will take her now. 2. HTN - Hypertension (I10: Essential (primary) hypertension) stay on amlodipine, carvedilol, spironolactone, clonidine Ordered: 1126F Pain severity quantified; no pain present Current tobacco non-user 1036F Functional status assessed 1170F Medication list documented in medical record 1159F Most recent diastolic blood pressure <80 mm Hg 3078F Systolic BP 130-139 mm Hg (Most Recent) 3075F 3. Hyperlipidemia (E78.2: Mixed hyperlipidemia) stay on atorvastatin Ordered: 1126F Pain severity quantified; no pain present Current tobacco non-user 1036F Functional status assessed 1170F Medication list documented in medical record 1159F Most recent diastolic blood pressure <80 mm Hg 3078F Systolic BP 130-139 mm Hg (Most Recent) 3075F 4. Hyperglycemia (R73.9: Hyperglycemia, unspecified) Ordered: 1126F Pain severity quantified; no pain present Current tobacco non-user 1036F Functional status assessed 1170F Medication list documented in medical record 1159F Most recent diastolic blood pressure <80 mm Hg 3078F Systolic BP 130-139 mm Hg (Most Recent) 3075F 5. History of CVA in adulthood (Z86.73: Personal history of transient ischemic attack (TIA), and cerebral infarction without residual deficits) Ordered: 1126F Pain severity quantified; no pain present Current tobacco non-user 1036F Functional status assessed 1170F Medication list documented in medical record 1159F Most recent diastolic blood pressure <80 mm Hg 3078F Systolic BP 130-139 mm Hg (Most Recent) 3075F 6. Chronic kidney disease (CKD), stage III (moderate) (N18.30: Chronic kidney disease, stage 3 unspecified) lab is stable Ordered: 1126F Pain severity quantified; no pain present Current tobacco non-user 1036F Functional status assessed 1170F Medication list documented in medical record 1159F Most recent diastolic blood pressure <80 mm Hg 3078F Systolic BP 130-139 mm Hg (Most Recent) 3075F 7. CAD (coronary artery disease) (I25.10: Atherosclerotic heart disease of [place] coronary artery without angina pectoris) go to ED now for eval keep cardiology follow up Ordered: 1126F Pain severity quantified; no pain present Current tobacco non-user 1036F Functional status assessed 1170F Medication list documented in medical record 1159F Most recent diastolic blood pressure <80 mm Hg 3078F Systolic BP 130-139 mm Hg (Most Recent) 3075F 8. 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 BMI 26.0-26.9,adult (Z68.26: Body mass index [BMI] 26.0-26.9, adult) The standard range for ages 18 and older is >=18.5 and < 25 kg/m2. Your BMI today was above this range, this falls in the overweight to obese category and there are medical benefits to weight loss. We can of (more content not included)...[facility] CenterComment on above:Result Comment: Electronically Signed By: PAULO HINOJOSA, Deonte Wilkinson.michael\Date and Time Signed: 10/07/24 11:06 EDTHEMATOLOGYOrdered By: SYSTEM SYSTEM on 48-70-2461Srewpvlgj/100 WBC (Bld)0.7 %Normal0.0 - 2.0 %Remisol HemeBasophils/Leukocytes Auto (Bld) [Pure # fraction]0.1 E9/LNormal0.0 - 0.2 E9/LRemisol HemeEosinophils (Bld) [#/Vol]0.3 E9/LNormal0.0 - 0.5 E9/LRemisol HemeEosinophils/100 WBC (Bld)3.2 %Normal0.0 - 8.0 %Remisol HemeErythrocyte distribution width (RBC) [Ratio]15.5 %High10.9 - 14.2 %Remisol HemeHematocrit (Bld) [Volume fraction]35.8 %Sfiyiw89.0 - 46.0 % Remisol HemeHemoglobin (Bld) [Mass/Vol]12.2 g/vYQkaqkq53.0 - 16.0 gm/dLRemisol HemeLymphocytes (Bld) [#/Vol]1.0 E9/LNormal1.0 - 4.0 E9/LRemisol Heme Lymphocytes/100 WBC (Bld)9.8 %Low14.0 - 50.0 %Remisol HemeMCH (RBC) [Entitic mass]29.5 wsOnekqj22.0 - 34.0 pgRemisol HemeMCHC (RBC) [Mass/Vol]33.9 g/dLNormal 31.4 - 36.0 gm/dLRemisol HemeMCV (RBC) [Entitic vol]87.0 nRKxntti88.0 - 100.0 fL Remisol HemeMonocytes (Bld) [#/Vol]0.7 E9/LNormal0.2 - 1.0 E9/LRemisol Heme Monocytes/100 WBC (Bld)7.3 %Normal4.0 - 14.0 %Remisol HemeNeutrophils (Bld) [#/Vol]7.7 E9/LHigh2.0 - 7.5 E9/LRemisol HemeNeutrophils/100 WBC (Bld)79.0 %High 36.0 - 75.0 %Remisol HemePlatelet mean volume (Bld) [Entitic vol]7.4 fLNormal6.4 - 10.8 fLRemisol HemePlatelets (Bld) [#/Vol]229.0 E9/PUhzwtk716.0 - 500.0 E9/L Remisol HemeRBC (Bld) [#/Vol]4.1 E12/LLow4.3 - 5.9 E12/LRemisol HemeWBC corrected for nucl RBC Auto (Bld) [#/Vol]9.8 E9/LNormal4.0 - 11.0 E9/LRemisol HemeLactic Acidon 10-57-2814Wwysot Acid Lvl0.6 mmol/LNormal0.5-2.2FOhioHealth Mansfield HospitalComment on above:Performed By: #### [id number] #### [facility] [address], [place] [address]Urfpmr Acid Lvl0.9 mmol/LNormal0.5-2.2FOhioHealth Mansfield HospitalComment on above:Performed By: #### [id number] #### [facility] [address], [place] [address]Hm Panel InformationOrdered By: ANGPROCESSSERVER MICROBIOLOGY on 57-84-5639Zjvss Culture CharcoalNo growth at 1 day. Final to follow at 7 days.[facility] Rut[facility] HospitalBlood Culture CharcoalNo growth at 1 day. Final to follow at 7 days.[facility] Rutan HospitalPT & PTTon 33-27-0362PDU Coag (PPP) [Relative time]0.97 {INR}Invalid Interpretation CodeAdena Pike Medical CenterComment on above:Result Comment: INR results are specifically intended to assess patients stabilized on long-term Anticoagulation therapy suggested INR???s ???Less Intensive Anticoagulation??? 2.0 ??? 3.0 Conventional Range 3.0 ??? 4.5Performed By: #### [id number] #### [facility] [address], [place] [address]RJ06.9 second(s)Normal9.4-12.5FOhioHealth Mansfield Hospital Comment on above:Result Comment: 15 days - 4 weeks 1 - 5 months 6 -11 months 1-5 years 6-10 years 11 -17 years Mean: 11.2 (9.5-12.6) Mean: 11.0 (9.7-12.8) Mean: 11.0 (9.8-13.0) Mean: 11.3 (9.9-13.4) Mean: 11.7 (10.0-14.6) Mean: 11.8 (10.0 - 14.1) Pediatric Reference ranges were obtained from a study by riki Liang. prepared from 1437 samples obtained at 7 different centers using the same coagulation reagent and instrumentation as [facility]. Currently there are no coagulation studies available worldwide for children to 14 days, andno normal ranges.Performed By: #### [id number] #### [facility] [address], [place] [address]WGQ03.3 second(s)Pqyxco65.1-36.5FOhioHealth Mansfield Hospital Comment on above:Result Comment: Parameter 15 days - 4 weeks 1 - 5 months 6 - 11 months 1 - 5 years 6 - 10 years 11 - 17 years PTT Mean: 35.4 (27.6-45.6) Mean: 33.5 (24.8-40.7) Mean: 32.4 (25.1-40.7) Mean: 31.6 (24.0-39.2) Mean: 31.6 (26.9-38.7) Mean: 31.0 (24.6-38.4) Pediatric Reference ranges were obtained from a study by jose Liang al. prepared from 1437 samples obtained at 7 different centers using the same coagulation reagent and instrumentation as [facility]. Currently there are no coagulation studies available worldwide for children to 14 days, andno normal ranges. Heparin therapeutic range (represented by Anti-Factor Xa activity of 0.2 - 0.4 U/mL) corresponds to PTT of 56.6 - 109.0 sec.Performed By: #### [id number] #### [facility] [address], [place] [address]Lrqqeugzld 12-14-6916Yrbusfmo HS9.10 pg/mLLow10.10-27.10A[facility] Medical CenterComment on above:Result Comment: The 95% CI (Confidence Interval) PPV (Positive Predictive Value) for myocardial infarction in females is 38 pg/mL, in males 51 pg/mL. The results should be used in conjunction with clinical conditions of myocardial infarction. (Access High Sensitivity Troponin I Instructions For Use, Alf Alycia, December 2017)Performed By: #### [id number] #### [facility] [address], [place] [address]WF Chest Single Viewon [id number] Chest Single ViewExam Date/Time: 10/07/2024 12:15 EDT Reason for Exam: Shortness of breath (SOB) Report IMPRESSION: NO RADIOGRAPHIC EVIDENCE OF ACUTE INTRATHORACIC PROCESS. EXAM: XR Chest Single View History: Shortness of breath Technique: Portable AP view of the chest. Comparison: 01/22/2024 Findings: Hiatal hernia again identified. The cardiomediastinal silhouette is within normal limits. No pneumothorax, pleural effusion, or consolidation. No acute osseous abnormality. Ordering Provider: Darin Maza FINAL REPORT Dictated: 10/07/2024 1:30 pm Chaparro Mejia DO Signed (Electronic Signature): 10/07/2024 1:30 pm Signed by: Chaparro Mejia DO Transcribed by: HARI Technologist: RRBNormalAdena Pike Medical CentereGFRon 67-08-5554mNIZ40 mL/min/1.73 m2Low>=59A[facility] Medical CenterComment on above:Performed By: #### [id number] #### [facility] [address], [place] [address]Zlq-Svjju Planningon 32-57-8522Qno-Visit PlanningPre-Visit Planning From: Thalia Acosta To: PAULO HINOJOSA, Deonte Turpin; Sent: 10/06/2024 09:20:22 EDT Subject: Pre-Visit Planning Due Date/Time: 10/06/2024 09:20:00 EDT Caller Name: PIEDAD ALATORRE; Caller Number: H , M Sd Dr. Rosario. During a pre-visit planning chart review, I noted the following documentation in the medical record: Current Problem List: Benign hypertension with stage 3 CKD, CAD, COPD, Carotid artery stenosis, Hyperglycemia, Hyperlipidemia, and Moderate persistent asthma. Current Medication List: albuterol, amlodipine, aspirin, atorvastatin, carvedilol, clonidine, Dulera, nitroglycerin, and spironolactone. 01/16/2022 Echo: SUMMARY/CONCLUSION- Moderate tricuspid regurgitation with at least mild pulmonary hypertension with a right ventricular systolic pressure of 39 mmHg. Based on your medical judgment, can you please clarify if the following condition/complication is present? I can update the Chronic Problem List with your response if you would like. -Mild pulmonary hypertension -Other (please specify): In responding to this request, please exercise your independent professional judgment. The fact that a question is asked does not imply that any particular answer is desired or expected. If you have any questions, please feel free to contact me at extension [phone]. Thank you! Thalia Acosta LPN Clinical Clinical Laboratory Medical Director [place] [address] Extension: [phone] [email or web address] From: PAULO HINOJOSA, Deonte Turpin To: Thalia Acosta; Sent: 10/06/2024 13:06:15 EDT Subject: RE: Pre-Visit Planning Caller Name: PIEDAD ALATORRE; Caller Number: Hugo , M mild [facility]Amb[facility]on [facility]24 Ambulatory Visit SummaryAmbulatory Visit Summary PIEDAD ALATORRE :1935 Visit Date:08/04/2024 Ambulatory Visit Instructions Your Diagnosis Medicare annual wellness visit, subsequent At risk for bone density loss Multiple falls On statin therapy COPD type B HTN - Hypertension Hyperglycemia Glaucoma These Are Your Goals B/P will be in normal range for patient Interventions: Low impact exercises: 2 arm and 2 legs exercises- 10 repetitions daily of each or walk in hallway -Progressing Low sodium diet - Progressing Medication Compliance [...] MD This Is Your Medications List acetaminophen albuterol (Albuterol (Eqv-Proventil HFA) 90 mcg/inh inhalation aerosol) albuterol (albuterol 0.083% Inh Melba 3 mL) amlodipine (amLODIPine 5 mg Tab) aspirin (aspirin 81 mg oral tablet) atorvastatin (atorvastatin 80 mg Tab) carvedilol (carvedilol 25 mg Tab) clonidine (cloNIDine 0.1 mg tab) cycloSPORINE ophthalmic (Cequa 0.09% ophthalmic solution) dexamethasone-tobramycin ophthalmic (TobraDex ST) dexamethasone-tobramycin ophthalmic (dexamethasone-tobramycin Opth 0.1%-0.3% Susp) docusate (docusate sodium 100 mg Cap) ferrous sulfate (ferrous sulfate 325 mg oral enteric coated tablet) formoterol-mometasone (Dulera 100 mcg-5 mcg/inh inhalation aerosol) ipratropium nasal (Atrovent 0.03% [place]) nitroglycerin (nitroglycerin 0.4 mg sublingual Tab) ondansetron (ondansetron 4 mg Tab) pantoprazole (Pantoprazole [address] Tab) pantoprazole (pantoprazole 40 mg Oral EC Tab) polyethylene glycol 3350 (MiraLax) spironolactone (spironolactone 25 mg Tab) ticagrelor (Brilinta (ticagrelor) 90 mg oral tablet) ticagrelor (ticagrelor 90 mg oral tablet) trazodone (traZODONE 50 mg Tab) Procedures Performed Cardiac catheterization, left heart (01/21/2024), PCI - Percutaneous coronary intervention (01/21/2024), Colonoscopy (03/18/2022), Colonoscopy (03/18/2022), Radiofrequency ablation of [...] extraction, D&C - Dilatation and curettage, EGD, Esophagogastroduodenoscopy, kidney artery left stent placement, Removal of ovarian cyst, Stents, bilateral legs. Discharge Vitals Temperature (Oral) 36.8 ???C Heart Rate (Peripheral) 80 Blood Pressure 134/68 Height 157.48 cm Height 62 in Weight 65.8 kg Weight 145.064 lb BMI 26.53 What to do next Scheduled Follow-Up Appointments Friday 1:30 PM EDT With: Barrett HINOJOSA, Geoff Marx Where: [facility] [place] 2024 10:20 AM EDT With: Deonte ROSARIO MD Where: [facility] [address] [place] [address]- Friday2025 11:00 AM EDT With: Where: [facility] [address] [place] [address]- Medications What How Much When Why Instructions Changed dexamethasone-tobramycin ophthalmic (dexamethasone-tobramycin Opth 0.1%- 0.3% Susp) 5 mL, 0 Refill(s), INSTILL 1 DROP INTO RIGHT EYE 4 TIMES A DAY Changed dexamethasone-tobramycin ophthalmic (TobraDex ST) Both eyes Every 6 hours Changed ticagrelor (Brilinta (ticagrelor) 90 mg oral tablet) 28 EA, 0 Refill(s), TAKE ONE TABLET BYMOUTH TWICE A DAY Changed ticagrelor (ticagrelor 90 mg oral tablet) 1 Tablets By Mouth 2 times a day Unchanged acetaminophen 325 Milligram By Mouth Every 6 hours as needed for as needed for pain Unchanged albuterol (Albuterol (Eqv-Proventil HFA) 90 mcg/ inh inhalation aerosol) 2 Puffs Inhalation Every 6 hours Acute URI Asthma e (more content not included)...[facility] CenterFan[facility] Office/Clinic Note on [id number] Medicine Office/Clinic NoteFanew [facility] Medicine Office/Clinic Note Chief Complaint Subsequent Medicare Wellness Visit Review of Systems PHQ Score Initial Depression Screen Score: 0 SCORE Physical Exam Vitals & Measurements T: 36.8 ???C(Oral) HR: 80(Peripheral) BP: 134/68 SpO2: 99% HT: 62 in HT: 157.48 cm WT: 65.8 kg WT: 145.064 lb BMI: 26.53 Assessment/Plan 1. Medicare annual wellness visit, subsequent (Z00.00: Encounter for general adult medical examination without abnormal findings) Patient accompanied by her transportation/four horse hitch driver. A personalized print out of all the current AHRQ USPSTF???s recommendations for preventative services and all current CDC recommended immunizations, relevant risk recommendations provided upon request. Reviewed Medicare Prevention Services . CDC-Falls Prevention and home safety screening. Patient states 2 falls in last 12 months, voices noworry about falling. Self ambulating with walker. Exhibits no problems with sitting, standing or ambulation at today's visit. Patient aware with keeping walk way area free of clutter to prevent tripping and/or falling. [place] Advance Directives reviewed. Documents remain at the assisted living facility. Encouraged to bring in for scanning into chart. Patient denies any problems with ADL???s and Instrumental ADL???s. Hair is washed by staff, she askfor help with what ever she needs. Cognitive screening completed with memory, no deficits noted. Unable to completed Clock drawing test due to vision deficits. Immunization record reviewed, Shingrix and COVID vaccines have been received. Allergies and medications reviewed and up to date. No concerns with taking medication as prescribed. Reviewed OTC medications, medication list up to date. Blood tests were reviewed: Labs up to date, will continue to follow up with labs per PCP. Colonoscopies no longer completed, will follow up as needed. Reviewed pain symptoms : denies any chronic pain, no routine pain medications taken. Reviewed all outside providers that patient follows. Last visit summary notes available in chart and/or have been requested. Patient denies any signs or symptoms of depression at this time. 8 minutes spent with screening anddocumentation. PHQ2 screening score 0. Patient denies any alcohol intake, maybe 1-2 times a year. 8 minutes spent with screening and documentation. Audit score 1. Follow up scheduled with PCP, 10/07/2024. AWV has been scheduled, 08/03/2025. 2. At risk for bone density loss (Z91.89: Other specified personal risk factors, not elsewhere classified) Patient declines to have DEXA scan. Encouraged recommended Calcium supplements with a Bone healthy diet. Will follow up with provider as needed. 3. Multiple falls (R29.6: Repeated falls) Fall Risk Assessment reviewed with abnormal findings, patient states multiple falls in the past year. Plan of care review: Upon standing up, do not start ambulating quickly and be aware of feeling dizzy which could increase fall risk. Patient to be aware of surroundings at all times. Make sure proper lighting is on, do not ambulate at night in the dark. Remove area rugs that are in walkway to prevent tripping. Always use caution with stairs, check banister railing for sturdiness. PT referral declined at this time, will do at facility if needed. 4. On statin therapy (Z79.899: Other pen[facility]entiary (current) drug therapy) Patient encouraged to eat a diet that is low in saturated fats. Stressed importance of loosing weight as being overweight does produce more lipids. Risks may also increase with a family history of hyperlipidemia. Encouraged with healthy dietary choices to reduce risk factors associated with CVA. Taking statin medication daily. Will continue to follow up with labs as directed. 5. 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 States effectiveness of medications. O2 SAT 99% RA with today's visit. Follows with Dr. Warner, postpartum rn as needed. 6. HTN - Hypertension (I10: Essential (primary) hypertension) Follows with Cardiology, taking medications daily as ordered. BP monitored at assisited facilty weekly. 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 HTN review with importance of keeping BP <140/90 to prevent increased cardiovascular risks. DASH diet review with importance to lower salt intake, eat more chicken, fish and lean white meats. Will continue to follow up with Cardiology as directed. 7. Hyperglycemia (R73.9: Hyperglycemia, unspecified) Screened for type 2 diabetes. Risk score: 5. No family history with Diabetes noted. BS review, reminded to follow ADA dietary recommendations. Monitor portion control with carbs/fats/sat. fats and the importance of alcohol intake. Will continue to follow up with labs as directed. 8. Glaucoma (H40.9: Unspecified glaucoma) Follows with Dr Easton, vision remains little to poor. Patient lives at [facility] (more content not included)...[facility] CenterComment on above: Result Comment: Electronically Signed By: Deonte ROSARIO MD\.br\Date and Time Signed: 08/04/24 12:57 EDT\.br\Electronically Co-Signed By: Catherine Saucedo LPN\.br\Date and Time Co-Signed: 08/04/24 12:15 EDTAmbulatory Visit Summaryon [id number] Visit SummaryAmbulatory Visit Summary PIEDAD ALATORRE :1935 Visit Date:07/07/2024 Ambulatory Visit Instructions Your Diagnosis HTN - Hypertension CAD (coronary artery disease) Chronic kidney disease (CKD), stage III (moderate) COPD type B Hyperlipidemia Hyperglycemia History of CVA in adulthood Moderate persistent asthma BMI 26.0-26.9,adult Overweight These Are Your Goals B/P will be in normal range for patient Interventions: Low impact exercises: 2 arm and 2 legs exercises- 10 repetitions daily of each or walk in hallway -Progressing Low sodium diet - Progressing Medication Compliance [...] ROSARIO MD This Is Your Medications List trazodone (traZODONE 50 mg Tab) Contact prescribing physician if questions or concerns acetaminophen albuterol (Albuterol (Eqv-Proventil HFA) 90 mcg/inh inhalation aerosol) albuterol (albuterol 0.083% Inh Melba 3 mL) amlodipine (amLODIPine 5 mg Tab) aspirin (aspirin 81 mg oral tablet) atorvastatin (atorvastatin 80 mg Tab) carvedilol (carvedilol 25 mg Tab) clonidine (cloNIDine 0.1 mg tab) cycloSPORINE ophthalmic (Cequa 0.09% ophthalmic solution) docusate (docusate sodium 100 mg Cap) ferrous sulfate (ferrous sulfate 325 mg oral enteric coated tablet) formoterol-mometasone (Dulera 100 mcg-5 mcg/inh inhalation aerosol) ipratropium nasal (Atrovent 0.03% [place]) nitroglycerin (nitroglycerin 0.4 mg sublingual Tab) ondansetron (ondansetron 4 mg Tab) pantoprazole (Pantoprazole [address] Tab) pantoprazole (pantoprazole 40 mg Oral EC Tab) polyethylene glycol 3350 (MiraLax) spironolactone (spironolactone 25 mg Tab) ticagrelor (ticagrelor 90 mg oral tablet) [Image Removed: STOP]Stop taking these medications acetaminophen-hydrocodone ([place] 325 mg-5 mg oral tablet) Procedures Performed Cardiac catheterization, left heart (01/21/2024), PCI - Percutaneous coronary intervention (01/21/2024), Colonoscopy (03/18/2022), Colonoscopy (03/18/2022), Radiofrequency ablation of [...] extraction, D&C - Dilatation and curettage, EGD, Esophagogastroduodenoscopy, kidney artery left stent placement, Removal of ovarian cyst, Stents, bilateral legs. Discharge Vitals Heart Rate (Peripheral) 74 Blood Pressure 132/88 Height 157 cm Height 62 in Weight 65.9 kg Weight 145.284 lb BMI 26.74 What to do next Scheduled Follow-Up Appointments Friday 1:00 PM EDT With: Where: [facility] [address] [place] [address] 2024 10:20 AM EDT With: Deonte ROSARIO MD Where: [facility] [address] [place] [address]- You Need to Schedule the Following Appointments Follow Up with Deonte ROSARIO MD, [facility] When: In 3 months Where: [facility] [address] [place] [address]- You Need to Complete the Following CBC w/ Auto Diff, Blood, Routine collect, 07/07/24, Order for future visit, Lab Collect, HTN - Hypertension, Not Required, Print Label By Order Location Comprehensive Metabolic Panel, Blood, Routine collect, 07/07/24, Order for future visit, Lab Collect, HTN - Hypertension, Not Required, Print Label By Order Location HgbA1c, Blood, Routine collect, 07/07/24, Order for future visit, Lab Collect, Hyperglycemia, Required & Missing, Print Label By Order Location Lipid Panel, Blood, Routine collect, 07/07/24, Order for future visit, Lab Collect, Hyperlipidemia,Required & Miss (more content not included)...Normal [facility] Medicine Office/Clinic Noteon [id number] Medicine Office/Clinic NoteFanew [facility] Medicine Office/Clinic Note Chief Complaint F/U: htn, ckd, copd, cad, hld Concerns: sob with walking, denies dizziness, vision change, palpatation, intermittent quick non radiating sharp pain HPI Staff Lab: 06/30/24 F/U: htn, ckd, copd, cad, hld Concerns: sob with walking, denies dizziness, vision change, palpatation, intermittent quick non radiating sharp pain History of Present Illness Here for med follow up. Her four horse hitch driver is with her She feels ok but does get SOB. She has asthma and her pulm note is reviewed. She is on Dulera and albuterol She has CAD and is on Brilinta. This can also cause SOB. Review of Systems PHQ Score Initial Depression Screen Score: 0 SCORE Physical Exam Vitals & Measurements HR: 74(Peripheral) BP: 132/88 SpO2: 98% HT: 62 in HT: 157 cm WT: 65.9 kg WT: 145.284 lb BMI: 26.74 General: Well developed, well nourished, in no acute distress Eyes: Pupils equal, round, and reactive to light. Conjunctivae and sclerae normal, and extraocular movements intact Ears: _HOH Nose: No deformity, discharge, inflammation, or lesions Mouth: MMM. Oropharynx and posterior pharynx without lesions or exudates. Tongue WNL Neck: _no bruit Lungs: Clear but diminished breath sounds Cardio: Regular rate and rhythm, normal S1 and S2, no murmur, no rub Abdomen: Soft, non-distended, non-tender Musculoskeletal: No joint swelling or synovitis noted Extremity: No clubbing, cyanosis or edema. Neurologic: Grossly normal Skin: No rashes, ulcerations, or suspicious lesions Mental Status: Alert and oriented x3. Normal mood and affect Assessment/Plan 1. HTN - Hypertension (I10: Essential (primary) hypertension) stay on amlodipine, carvedilol, spironolactone, clonidine Ordered: CBC w/ Auto Diff Comprehensive Metabolic Panel 2. CAD (coronary artery disease) (I25.10: Atherosclerotic heart disease of [place] coronary artery without angina pectoris) on Brilinta and as per cardiology 3. Chronic kidney disease (CKD), stage III (moderate) (N18.30: Chronic kidney disease, stage 3 unspecified) eGFR: 31 mL/min/1.73 m2 Low (06/30/24 09:56:00) Creatinine: 1.6 mg/dL High (06/30/24 09:56:00) Ordered: Urinalysis with Micro 4. COPD type B (J44.9: Chronic obstructive pulmonary disease, unspecified) stay on Dulera albuterol prn 5. Hyperlipidemia (E78.2: Mixed hyperlipidemia) stay on atorvastatin Chol: 130 mg/dL (06/30/24 09:56:00) HDL: 47 mg/dL (06/30/24 09:56:00) LDL Direct: 62 mg/dL (06/30/24 09:56:00) Tri mg/dL (06/30/24 09:56:00) VLDL: 21 mg/dL (06/30/24 09:56:00) Ordered: Lipid Panel 6. Hyperglycemia (R73.9: Hyperglycemia, unspecified) Hgb A1C %: 6.3 % High (06/30/24 09:56:00) Ordered: HgbA1c 7. History of CVA in adulthood (Z86.73: Personal history of transient ischemic attack (TIA), and cerebral infarction without residual deficits) 8. Moderate persistent asthma (J45.40: Moderate persistent asthma, uncomplicated) stay on Dulera albuterol prn 9. BMI 26.0-26.9,adult (Z68.26: Body mass index [BMI] 26.0-26.9, adult) The standard range for ages 18 and older is >=18.5 and < 25 kg/m2. Your BMI today was above this range, this falls in the overweight to obese category and there are medical benefits to weight loss. We can offer counselling, referral, and/or medical support in addressing this problem. Your BMIand weight management will be followed at subsequent visits. 10. Overweight (E66.3: Overweight) Orders: trazodone, 50 mg = 1 tab(s), Oral, Bedtime, # 30 tab(s), Refills(s) 4, Pharmacy: [facility], 157, cm, 07/07/24 13:14:00 EST, Height/Length Dosing, 65.9, kg, 07/07/24 13:14:00 EST,Weight Dosing Follow-up With When Contact Information PAULO HINOJOSA, Deonte Turpin, [place] In 3 months [facility] [address], [place] [address]- Additional Instructions: Patient Education Asthma, Adult, Prol-ou-Btlp Problem List/Past Medical History Ongoing Anemia Anxiety disorder Asthma Asthma exacerbation Benign hypertension with chronic kidney disease, stage III BMI 26.0-26.9,adult CAD (coronary artery disease) Carotid artery stenosis Change in bowel habits Chronic kidney disease (CKD), stage III (moderate) Contusion of left leg COPD type B Dysphagia Edema Elevated alkaline phosphatase level Eye pain Female stress incontinence History of colon polyps History of CVA in adulthood HTN - Hypertension Hyperglycemia Hyperlipidemia Insomnia Intertrigo Knee pain, right Large hiatal hernia Leg weakness Leukocytosis Lumbar radiculopathy Moderate persistent asthma Neck pain Seborrheic keratoses Shoulder pain Vasomotor rhinitis Historical Acid reflux Appendectomy blood clots BMI 25.0-25.9,adult Cardiac arrest COPD Glaucoma H/O: TIA HEMATURIA [place] - myocardial infarction Stage 3 chronic kidney disease STEMI - ST elevation myocardial infarction Stroke (more content not included)...NormalAdena Pike Medical CenterComment on above:Result Comment: Electronically Signed By: Deonte ROSAROI MD\.br\Date and Time Signed: 07/07/24 14:06 ESTCBC w/ Auto Diffon [id number]/100 WBC (Bld)0.7 %Normal0.0-2.0A[facility] Pike Medical CenterComment on above:Performed By: #### [id number] #### [facility] [address], [place] [address]Nbvezvafg/Leukocytes Auto (Bld) [Pure # fraction]0.1 E9/LNormal 0.0-0.2Fisher [facility]itus Medical CenterComment on above:Performed By: #### [id number] #### [facility] [address], [place] [address]Afzoxuvfpit (Bld) [#/Vol]0.3 E9/LNormal0.0-0.5FOhioHealth Mansfield HospitalComment on above:Performed By: #### [id number] #### [facility] [address] [place] [address]Mvunrfhxnlt/100 WBC (Bld)2.7 %Normal0.0-8.0[facility] Medical CenterComment on above:Performed By: #### [id number] #### [facility] [address] [place] [address]Tmfhvsudhnx distribution width (RBC) [Ratio]14.9 %High10.9-14.2 [facility]ike Medical CenterComment on above:Performed By: #### [id number] #### [facility] [address] [place] [address]Irvpcstoqv (Bld) [Volume fraction]36.7 %Kvqyio78.0-46.0[facility] Medical CenterComment on above:Performed By: #### [id number] #### [facility] [address] [place] [address]Ertiasgmoe (Bld) [Mass/Vol]12.2 g/iHGdtwuy25.0-16.0[facility] Medical CenterComment on above:Performed By: #### [id number] #### [facility] [address] [place] [address]Rwpvqjqeenu (Bld) [#/Vol]1.1 E9/LNormal1.0-4.0[facility] Medical CenterComment on above:Performed By: #### [id number] #### [facility] [address] [place] [address]Envbzbxhqjc/100 WBC (Bld)10.8 %Low14.0-50.0[facility] Medical CenterComment on above:Performed By: #### [id number] #### [facility] [address] [place] [address] 199[address]DZD (RBC) [Entitic mass]29.2 qeWtxtlt81.0-34.0[facility] Medical CenterComment on above:Performed By: #### [id number] #### [facility] [address] [place] [address]LAGJ (RBC) [Mass/Vol]33.3 g/xWNqdodd42.4-36.0[facility] Medical CenterComment on above:Performed By: #### [id number] #### [facility] [address] [place] [address] 117[address]OQD (RBC) [Entitic vol]87.6 zVUzqvxb78.0-100.0[facility] Medical CenterComment on above:Performed By: #### [id number] #### [facility] [address] [place] [address]Jwamqdqin (Bld) [#/Vol]0.8 E9/LNormal0.2-1.0[facility] Medical CenterComment on above:Performed By: #### [id number] #### [facility] [address] [place] [address] 48[address]Xgqptwusiqb (Bld) [#/Vol]7.9 E9/LHigh2.0-7.5FOhioHealth Mansfield HospitalComment on above:Performed By: #### [id number] #### [facility] [address] [place] [address]Uofwtykflpt/100 WBC (Bld)77.9 %High36.0-75.0[facility] Medical CenterComment on above:Performed By: #### [id number] #### [facility] [address] [place] [address]76[address]Vzkzqhxc mean volume (Bld) [Entitic vol]8.3 fLNormal6.4-10.8 [facility]ike Medical CenterComment on above:Performed By: #### [id number] #### [facility] [address] [place] [address]Afbjqahym (Bld) [#/Vol]222.0 E9/ASguisc558.0-500.0[facility] Medical CenterComment on above:Performed By: #### [id number] #### [facility] [address], [place] [address]VWU (Bld) [#/Vol]4.2 E12/LLow4.3-5.9[facility] Comment on above:Performed By: #### [id number] #### [facility] [address], [place] [address]FXD corrected for nucl RBC Auto (Bld) [#/Vol]10.2 E9/LNormal 4.0-11.0[facility] Medical CenterComment on above:Performed By: #### [id number] #### [facility] [address], [place] [address]CXSSJHJTRWqxdcyt By: SYSTEM SYSTEM on 25-27-7342Budprkc [Mass/Vol]4.2 g/dLNormal3.3 - 5.0 gm/dLRemisol ChemAlbumin/Globulin [Mass ratio] 1.8 {ratio}Normal1.1 - 2.2Remisol ChemALP [Catalytic activity/Vol]157 [iU]/dHigh 21 - 98 Int._Unit/LRemisol ChemALT No additional P-5'-P [Catalytic activity/Vol] 9 [iU]/dNormal6 - 46 Int._Unit/LRemisol ChemAnion gap [Moles/Vol]13 mmol/LNormal 6 - 16 mEq/LRemisol ChemAST [Catalytic activity/Vol]13 [iU]/dNormal5 - 43 Int._Unit/LRemisol ChemBilirubin [Mass/Vol]0.5 mg/dLNormal0.0 - 1.1 mg/dLRemisol ChemCalcium [Mass/Vol]9.3 mg/dLNormal8.9 - 11.1 mg/dLRemisol ChemChloride [Moles/Vol]106 mmol/HKvdcfz989 - 111 mmol/LRemisol ChemCholesterol [Mass/Vol]130 mg/xWJhtjxf006 - 200 mg/dLRemisol ChemCholesterol in HDL [Mass/Vol]47 mg/dL Invalid Interpretation CodeRemisol ChemComment on above:Result Comment: '>= 60 LOW RISK' '<= 40 HIGH RISK'Cholesterol in LDL [Mass/Vol]62 mg/dLNormal<=129mg/dLRemisol ChemCholesterol in VLDL [Mass/Vol]21 mg/dLNormal7 - 40 mg/dLRemisol ChemCO2 [Moles/Vol]26 mmol/BFavcuc33 - 31 mmol/LRemisol ChemCreatinine [Mass/Vol]1.6 mg/dLHigh0.5 - 1.3 mg/dLRemisol PmzvuWPH03 mL/min/1.73 m2Low>=59mL/min/1.73 m2 Remisol ChemGlobulin (S) [Mass/Vol]2.4 g/dLNormal1.4 - 4.0 gm/dLRemisol Chem Glucose [Mass/Vol]108 mg/iIEhsobt20 - 199 mg/dLRemisol ChemPotassium [Moles/Vol] 4.5 mmol/LNormal3.5 - 5.3 mmol/LRemisol ChemProtein [Mass/Vol]6.6 g/dLNormal6.0 - 7.8 gm/dLRemisol ChemSodium [Moles/Vol]140 mmol/ZJkuibc403 - 145 mmol/LRemisol ChemTriglyceride [Mass/Vol]105 mg/dLNormal<=149mg/dLRemisol ChemUrea nitrogen [Mass/Vol]28 mg/dLHigh5 - 21 mg/dLRemisol ChemUrea nitrogen/Creatinine [Mass ratio]18 mg/ufHapwsc24 - 20Remisol ChemCHEMISTRYOrdered By: Anais Damico on 17-78-6769VrA3x (Bld) [Mass fraction]6.3 %High<=5.9%[facility] ChemAutoSSCMPon 96-11-0497Njiyqdf [Mass/Vol]4.2 g/dLNormal3.3-5.0[facility] Comment on above:Performed By: #### [id number] #### [facility] [address], [place] [address]Puovfwz/Globulin (S) [Mass conc ratio]1.3Yhiakd3.1-2.2FOhioHealth Mansfield HospitalComment on above:Performed By: #### [id number] #### [facility] [address], [place] [address]OBC [Catalytic activity/Vol]157 Int._Unit/ZIerp10-85YtwkeoAdena Pike Medical CenterComment on above:Performed By: #### [id number] #### [facility] [address], [place] [address]MBY No additional P-5'-P [Catalytic activity/Vol]9 Int._Unit/L Normal6-46[facility]ike Medical CenterComment on above:Performed By: #### [id number] #### [facility] [address], [place] [address]Ibmjf gap [Moles/Vol]13 mmol/LNormal6-16[facility]ike Medical CenterComment on above:Performed By: #### [id number] #### [facility] [address] [place] [address] 269[address]LPU [Catalytic activity/Vol]13 Int._Unit/LNormal5-43[facility]ike Medical CenterComment on above:Performed By: #### [id number] #### [facility] [address], [place] [address]Rseuczglv [Mass/Vol]0.5 mg/dLNormal0.0-1.1FOhioHealth Mansfield HospitalComment on above:Performed By: #### [id number] #### [facility] [address] [place] [address]Fuxcxts [Mass/Vol]9.3 mg/dLNormal8.9-11.1FOhioHealth Mansfield HospitalComment on above:Performed By: #### [id number] #### [facility] [address], [place] [address]Fuomzars [Moles/Vol]106 mmol/CXtdwvd894-743JayxrfAdena Pike Medical CenterComment on above:Performed By: #### [id number] #### [facility] [address] [place] [address]IR5 [Moles/Vol]26 mmol/UFzcsoc27-09KogsoiAdena Pike Medical Center Comment on above:Performed By: #### [id number] #### [facility] [address], [place] [address]Xsndhbhbnl [Mass/Vol]1.6 mg/dLHigh0.5-1.3FOhioHealth Mansfield HospitalComment on above:Performed By: #### [id number] #### [facility] [address], [place] [address]Dibtdnyd (S) [Mass/Vol]2.4 g/dLNormal1.4-4.0[facility] Medical CenterComment on above:Performed By: #### [id number] #### [facility] [address], [place] [address]Eynunym [Mass/Vol]108 mg/sTFwoetc06-833HpfxgaAdena Pike Medical CenterComment on above:Performed By: #### [id number] #### [facility] [address], [place] [address]Xslwifcjl [Moles/Vol]4.5 mmol/LNormal3.5-5.3FOhioHealth Mansfield HospitalComment on above:Performed By: #### [id number] #### [facility] [address], [place] [address]Ttjbyhf [Mass/Vol]6.6 g/dLNormal6.0-7.8[facility] Medical CenterComment on above:Performed By: #### [id number] #### [facility] [address], [place] [address]Embrbg [Moles/Vol]140 mmol/DTeswkf417-421GvpcglAdena Pike Medical CenterComment on above:Performed By: #### [id number] #### [facility] [address], [place] [address]Idog nitrogen [Mass/Vol]28 mg/dLHigh5-21[facility] Medical CenterComment on above:Performed By: #### [id number] #### [facility] [address], [place] [address]Exzj nitrogen/Creatinine [Mass ratio]18 No UedihKytztl23-71 [facility] Medical CenterComment on above:Performed By: #### [id number] #### [facility] [address], [place] [address]HDQYRWINNDPtxaznw By: SYSTEM SYSTEM on 36-66-9667Cuiahvvnj/100 WBC (Bld)0.7 %Normal0.0 - 2.0 %Remisol HemeBasophils/Leukocytes Auto (Bld) [Pure # fraction]0.1 E9/LNormal0.0 - 0.2 E9/LRemisol HemeEosinophils (Bld) [#/Vol]0.3 E9/LNormal0.0 - 0.5 E9/LRemisol HemeEosinophils/100 WBC (Bld)2.7 %Normal0.0 - 8.0 %Remisol HemeErythrocyte distribution width (RBC) [Ratio]14.9 %High10.9 - 14.2 %Remisol HemeHematocrit (Bld) [Volume fraction]36.7 %Baubst86.0 - 46.0 % Remisol HemeHemoglobin (Bld) [Mass/Vol]12.2 g/xMVwbfwv07.0 - 16.0 gm/dLRemisol HemeLymphocytes (Bld) [#/Vol]1.1 E9/LNormal1.0 - 4.0 E9/LRemisol Heme Lymphocytes/100 WBC (Bld)10.8 %Low14.0 - 50.0 %Remisol HemeMCH (RBC) [Entitic mass]29.2 khLnraed17.0 - 34.0 pgRemisol HemeMCHC (RBC) [Mass/Vol]33.3 g/dLNormal 31.4 - 36.0 gm/dLRemisol HemeMCV (RBC) [Entitic vol]87.6 tRHvptbe75.0 - 100.0 fL Remisol HemeMonocytes (Bld) [#/Vol]0.8 E9/LNormal0.2 - 1.0 E9/LRemisol Heme Monocytes/100 WBC (Bld)7.9 %Normal4.0 - 14.0 %Remisol HemeNeutrophils (Bld) [#/Vol]7.9 E9/LHigh2.0 - 7.5 E9/LRemisol HemeNeutrophils/100 WBC (Bld)77.9 %High 36.0 - 75.0 %Remisol HemePlatelet mean volume (Bld) [Entitic vol]8.3 fLNormal6.4 - 10.8 fLRemisol HemePlatelets (Bld) [#/Vol]222.0 E9/VHsnckv013.0 - 500.0 E9/L Remisol HemeRBC (Bld) [#/Vol]4.2 E12/LLow4.3 - 5.9 E12/LRemisol HemeWBC corrected for nucl RBC Auto (Bld) [#/Vol]10.2 E9/LNormal4.0 - 11.0 E9/LRemisol MurfGdqO1kno 38-39-8190KpO7m (Bld) [Mass fraction]6.3 %High<=5.9[facility] Pike Medical CenterComment on above:Performed By: #### [id number] #### [facility] [address], [place] [address]Rcict Panelon 29-62-1078Kptkbqjtucv in VLDL [Mass/Vol]21 mg/dL Normal7-40[facility]ike Medical CenterComment on above:Performed By: #### [id number] #### [facility] [address], [place] [address]Mlcprszwgqhr [Mass/Vol]105 mg/dLNormal<=149A[facility] Pike Medical CenterComment on above:Performed By: #### [id number] #### [facility] [address], [place] [address]Ugwvhbdcdlr [Mass/Vol]130 mg/tIJchfxz384-721WmjaxkAdena Pike Medical CenterComment on above:Performed By: #### [id number] #### [facility] [address], [place] [address]Fqygynmthwg in HDL [Mass/Vol]47 mg/dLInvalid Interpretation CodeAdena Pike Medical CenterComment on above:Result Comment: '>= 60 LOW RISK' '<= 40 HIGH RISK'Performed By: #### [id number] #### [facility] [address], [place] [address]Nkijfqteyxk in LDL [Mass/Vol]62 mg/dLNormal<=129A[facility]ike Medical CenterComment on above:Performed By: #### [id number] #### [facility] [address] [place], [place] [address]hEHVes 64-69-2406nSZY88 mL/min/1.73 m2Low>=59A[facility] Pike Medical CenterComment on above:Performed By: #### [id number] #### [facility] [address] [place], [place] [address]Llqoomxf Letteron 73-38-9773Tmpfbwbl LetterProvider Letter April 14, 2024 PIEDAD ALATORRE [address] [place] [address] [address] [place] [address] : 1935 Dear Piedad , We have been trying to reach you with no success. It is important that you return our call upon receiving this letter. Also, at the time of your call, please provide us with your current information. Thank you for your prompt attention to this matter. Sincerely, [facility]/Clinic Noteon [id number] Office/Clinic NotePulmonology Office/Clinic Note History of Present Illness Since her last visit she did not go through with the lung function test she said she did not want to do more testing. She has been using albuterol/Atrovent nebulizer treatment twice a day. She does carry diagnosis of COPD/asthma although she never smoked before. Her pulmonary function test from 2018 with moderate obstruction and significant response to bronchodilators with normalization suggestive of asthma Review of Systems 12 point system review was done and negative except what mentioned in HPI Physical Exam General: no distress Skin: warm, dry Head: no trauma, normocephalic Neck: Trachea midline , no adenopathy, no tenderness Eye: normal conjunctiva, sclera clear ENMT: oral mucosa moist Cardiovascular: regular rate and rhythm, normal Respiratory: Lungs CTA ,respirations non labored Chest wall: no deformity. Gastrointestinal: soft , non distended , no tenderness, no guarding. Extremities: no deformity, no trauma Neurological: nonfocal Assessment/Plan 1. Asthma (J45.909: Unspecified asthma, uncomplicated) Her previous pulmonary function test in 2018 was suggestive of asthma unfortunately she did not want to do the lung function test that was ordered during last visit. After discussion with the patientwe decided to go ahead and start LABA/ICS inhaler as a maintenance inhaler and continue nebulizer treatment and albuterol as needed. If she change her mind she could do the lung function test and thetime I will see her in 4 months for follow-up Ordered: formoterol-mometasone, 2 puff(s), Inhalation, BID for 30 day(s), 13 gm, Refill(s) 6, [facility], 157, cm, 03/29/24 14:01:00 EST, Height/Length Dosing, 65.1, kg, 03/29/24 14:01:00 EST, Weight Dosing Follow-up No qualifying data available 4 months Problem List/Past Medical History Ongoing Anemia Anxiety disorder Asthma Asthma exacerbation Benign hypertension with chronic kidney disease, stage III BMI 26.0-26.9,adult CAD (coronary artery disease) Carotid artery stenosis Change in bowel habits Chronic kidney disease (CKD), stage III (moderate) Contusion of left leg COPD type B Dysphagia Edema Elevated alkaline [...] Cardiac arrest COPD Glaucoma H/O: TIA HEMATURIA [place] - myocardial infarction Stage 3 chronic kidney disease STEMI - ST elevation myocardial infarction Stroke Procedure/Surgical History Cardiac catheterization, left heart (01/21/2024), PCI - Percutaneous coronary intervention (01/21/2024), Colonoscopy (03/18/2022), Colonoscopy (03/18/2022), Radiofrequency ablation of [...] extraction, D&C - Dilatation and curettage, EGD, Esophagogastroduodenoscopy, kidney artery left stent placement, Removal of ovarian cyst, Stents, bilateral legs. Medications acetaminophen, 325 mg, Oral, q6hr, PRN Albuterol (Eqv-Proventil HFA) 90 mcg/inh inhalation aerosol, 2 puff(s), Inhalation, q6hr, 5 refills albuterol 0.083% Inh Melba 3 mL, 2.5 mg= 3 mL, Inhalation, q6hr, PRN, 3 refills amLODIPine 5 mg Tab, 5 mg= 1 tab(s), Oral, Daily, 11 refills aspirin 81 mg oral tablet, 81 mg= 1 tab(s), Oral, Daily atorvastatin 80 mg Tab, 80 mg= 1 tab(s), Oral, Bedtime Atrovent 0.03% [place], 2 spray(s), Nasal, TID, PRN, 1 refills carvedilol 25 mg Tab, 25 mg= 1 tab(s), Oral, BID, 3 refills Cequa 0.09% ophthalmic solution, Eye-Both, q12hr cloNIDine 0.1 mg tab, 0.1 mg, Oral, BID, 3 refills docusate sodium 100 mg Cap, 100 mg= 1 cap(s), Oral, BID, PRN Dulera 100 mcg-5 mcg/inh inhalation aerosol, 2 puff(s), Inhalation, BID, 6 refills ferrous sulfate 325 mg oral enteric coated tablet, 325 mg= 1 tab(s), Oral, Daily, 5 refills MiraLax, 17 gm, Oral, Daily nitroglycerin 0.4 mg sublingual Tab, 0.4 mg= 1 tab(s), SubLingual, q5min, PRN [place] 325 mg-5 mg oral tablet, 1 tab(s), Oral, BID, PRN ondansetron 4 mg Tab, 4 mg= 1 tab(s), Oral, q8hr pantoprazole 40 mg Oral EC Tab, 40 mg, O (more content not included)...Normal [facility] CenterComment on above:Result Comment: Electronically Signed By: Timmy HINOJOSA, Migdalia Medina\.br\Date and Time Signed: 04/12/24 12:30 EST Ambulatory Visit Summaryon [id number] Visit SummaryAmbulatory Visit Summary PIEDAD ALATORRE :1935 Visit Date:03/29/2024 Ambulatory Visit Instructions Your Diagnosis HTN - Hypertension CAD (coronary artery disease) Chronic kidney disease (CKD), stage III (moderate) Asthma Anemia Hyperlipidemia Hyperglycemia Leukocytosis BMI 26.0-26.9,adult Overweight Contusion of left leg These Are Your Goals B/P will be in normal range for patient Interventions: Low impact exercises: 2 arm and 2 legs exercises- 10 repetitions daily of each or walk in hallway -Progressing Low sodium diet - Progressing Medication Compliance [...] ROSARIO MD This Is Your Medications List acetaminophen-hydrocodone ([place] 325 mg-5 mg oral tablet) Contact prescribing physician if questions or concerns acetaminophen albuterol (Albuterol (Eqv-Proventil HFA) 90 mcg/inh inhalation aerosol) albuterol (albuterol 0.083% Inh Melba 3 mL) amlodipine (amLODIPine 5 mg Tab) aspirin (aspirin 81 mg oral tablet) atorvastatin (atorvastatin 80 mg Tab) carvedilol (carvedilol 25 mg Tab) clonidine (cloNIDine 0.1 mg tab) cycloSPORINE ophthalmic (Cequa 0.09% ophthalmic solution) docusate (docusate sodium 100 mg Cap) ferrous sulfate (ferrous sulfate 325 mg oral enteric coated tablet) ipratropium nasal (Atrovent 0.03% [place]) nitroglycerin (nitroglycerin 0.4 mg sublingual Tab) ondansetron (ondansetron 4 mg Tab) pantoprazole (pantoprazole 40 mg Oral EC Tab) polyethylene glycol 3350 (MiraLax) spironolactone (spironolactone 25 mg Tab) ticagrelor (ticagrelor 90 mg oral tablet) trazodone (traZODONE 50 mg Tab) Procedures Performed Cardiac catheterization, left heart (01/21/2024), PCI - Percutaneous coronary intervention (01/21/2024), Colonoscopy (03/18/2022), Colonoscopy (03/18/2022), Radiofrequency ablation of [...] extraction, D&C - Dilatation and curettage, EGD, Esophagogastroduodenoscopy, kidney artery left stent placement, Removal of ovarian cyst, Stents, bilateral legs. Discharge Vitals Temperature (Oral) 36.7 ???C Heart Rate (Peripheral) 80 Blood Pressure 138/68 Height 157 cm Height 62 in Weight 65.1 kg Weight 143.521 lb BMI 26.41 What to do next Scheduled Follow-Up Appointments Friday 10:45 AM EST With: Timmy HINOJOSA, Migdalia Medina Where: Pulmonary Clinic Friday 1:40 PM EST With: Deonte ROSARIO MD Where: [facility] [address] [place] [address], [place] [address]- Friday 1:00 PM EDT With: Where: [facility] [address], [place] [address]- You Need to Schedule the Following Appointments Follow Up with PAULO HINOJOSA, ROCKY Diaz When: In 3 months Where: [facility] [address], [place] [address]- You Need to Complete the Following CBC w/ Auto Diff, Blood, Routine collect, 03/29/24, Order for future visit, Lab Collect, HTN - Hypertension, Not Required, Print Label By Order Location Comprehensive Metabolic Panel, Blood, Routine collect, 03/29/24, Order for future visit, Lab Collect, HTN - Hypertension, Not Required, Print Label By Order Location HgbA1c, Blood, Routine collect, 03/29/24, Order for future visit, Lab Collect, Hyperglycemia, Required & Missing, Print Label By Order Location Lipid Panel, Blood, Routine collect, 03/29/24, Order for future visit, Lab Collect, CAD (coronary artery disease), Not Required, Print Label By Order Location Medications (more content not included)...[facility] Office/Clinic Noteon [id number] Medicine Office/Clinic NoteFami Medicine Office/Clinic Note Chief Complaint Patient here for 3 month f/u on htn, chol. C/o falling 2 weeks ago--c/o pain in legs, back & under right arm. History of Present Illness Here for med follow up She states she fell getting on the transport bus two weeks ago. She fell backwards and her leg was underneath her. She still has left leg pain. She has a lot of bruising. It hurts to walk. She did not go to the ED. She has htn and CAD. She denies CP. She states her SOB has improved. She saw cardiology and pulmonology since she was here. Review of Systems PHQ Score Initial Depression Screen Score: 0 SCORE Physical Exam Vitals & Measurements T: 36.7 ???C(Oral) HR: 80(Peripheral) BP: 138/68 HT: 62 in HT: 157 cm WT: 65.1 kg WT: 143.521 lb BMI: 26.41 General: Well developed, well nourished, in no acute distress Eyes: Pupils equal, round, and reactive to light. Conjunctivae and sclerae normal, and extraocular movements intact Ears: _HOH Nose: No deformity, discharge, inflammation, or lesions Mouth: MMM. Oropharynx and posterior pharynx without lesions or exudates. Tongue WNL Neck: _supple, no bruit Lungs: Clear but diminished breath sounds Cardio: _RRR Abdomen: Soft, non-distended, non-tender Musculoskeletal: _ambulates with walker Extremity: No clubbing, cyanosis or edema. Neurologic: Grossly normal Skin: Marked bruising on LLE from her thigh to calf. Tender left lateral calf and upper acuña area. Tender medial R knee and in upper calf. Mental Status: Alert and oriented x3. Normal mood and affect Assessment/Plan 1. HTN - Hypertension (I10: Essential (primary) hypertension) stay on amlodipine, carvedilol, spironolactone, clonidine Ordered: CBC w/ Auto Diff Comprehensive Metabolic Panel 2. CAD (coronary artery disease) (I25.10: Atherosclerotic heart disease of [place] coronary artery without angina pectoris) stable cardiology note reviewed Ordered: Lipid Panel 3. Chronic kidney disease (CKD), stage III (moderate) (N18.30: Chronic kidney disease, stage 3 unspecified) eGFR: 31 mL/min/1.73 m2 Low (01/23/24 06:50:00) Creatinine: 1.6 mg/dL High (01/23/24 06:50:00) 4. Asthma (J45.909: Unspecified asthma, uncomplicated) pulm note reviewed 5. Anemia (D64.9: Anemia, unspecified) will monitor 6. Hyperlipidemia (E78.2: Mixed hyperlipidemia) stay on atorvastatin 7. Hyperglycemia (R73.9: Hyperglycemia, unspecified) keep on diet Ordered: HgbA1c 8. Leukocytosis (D72.829: Elevated white blood cell count, unspecified) last lab was ok 9. BMI 26.0-26.9,adult (Z68.26: Body mass index [BMI] 26.0-26.9, adult) The standard range for ages 18 and older is >=18.5 and < 25 kg/m2. Your BMI today was above this range, this falls in the overweight to obese category and there are medical benefits to weight loss. We can offer counselling, referral, and/or medical support in addressing this problem. Your BMIand weight management will be followed at subsequent visits. 10. Overweight (E66.3: Overweight) 11. Contusion of left leg (S80.12XA: Contusion of left lower leg, initial encounter) She declines xrays or US for now 03/29/2024 14:22:00 I certify that I have reviewed the OARRS report and all PDMP information in this chart. [place] sent in for pain. Ordered: acetaminophen-hydrocodone, 1 tab(s), Oral, BID for pain, 20 tab(s), Refill(s) 0, [facility], 157, cm, 03/29/24 14:01:00 EST, Height/Length Dosing, 65.1, kg, 03/29/24 14:01:00 EST,Weight Dosing Follow-up With When Contact Information PAULO HINOJOSA, ROCKY Diaz In 3 months [facility] [address] [facility], [place] [address]- Additional Instructions: Patient Education Asthma, Adult, [id number] Problem List/Past Medical History Ongoing Anemia Anxiety disorder Asthma Asthma exacerbation Benign hypertension with chronic kidney disease, stage III BMI 26.0-26.9,adult CAD (coronary artery disease) Carotid artery stenosis Change in bowel habits Chronic kidney disease (CKD), stage III (moderate) Contusion of left leg COPD type B Dysphagia Edema Elevated alkaline [...] Cardiac arrest COPD Glaucoma H/O: TIA HEMATURIA [place] - myocardial infarction Stage 3 chronic kidney disease STEMI - ST elevation myocardial infarction Stroke Procedure/Surgical History Cardiac catheterization, left heart (01/21/2024), PCI - Percutaneous coronary intervention (01/21/2024), Colonoscopy (03/18/2022), Colonoscopy (03/18/2022), Radiofrequency abl (more content not included)...[facility] CenterComment on above:Result Comment: Electronically Signed By: PAULO HINOJOSA, Deonte García\Date and Time Signed: 03/29/24 14:22 ESTHeart and Vascular Office/Clinic Noteon [id number] and Vascular Office/Clinic NoteHeart and Vascular Office/Clinic Note Chief Complaint 6 wk f/u cad, htn History of Present Illness The patient is a pleasant 88-year-old female with a past cardiac history of CAD, prior PCI in 2020 and most recently in January 2024, complicated by dissection of the left main artery. She underwent PCI to the left main artery and LAD with drug-eluting stents. She presents for a scheduled follow-up appointment. She reports no chest pain, chronically short of breath, however is getting breathing treatment withgreat relief. Denies issues with bruising or bleeding. Reports no PND or orthopnea. Review of Systems PHQ Score Initial Depression Screen Score: 0 SCORE ROS - Provider Constitutional: no fever, no chills, no sweats, no weakness Respiratory: yes shortness of breath, no cough Cardiovascular: no chest pain Neuro: no dizziness. no loss of consciousness Physical Exam Vitals & Measurements HR: 72(Peripheral) RR: 16 BP: 126/76 SpO2: 98% HT: 62 in HT: 157 cm WT: 65 kg WT: 143 lb BMI: 26.37 General: alert, no acute distress Neck: Supple, noJVD nocarotid bruit Cardiovascular: regular rate and rhythm, no murmur normal peripheral perfusion Respiratory: Lungs CTAB, respirations non labored Extremities: no edema left lower extremity. no edema right lower extremity Neurological: oriented x 4, LOC appropriate for age, speech normal Skin: Warm, dry, intact- no rash or concerning lesions Procedure Cardiac Diagnostics [facility] on 01/21/[address] Espinoza: FINDINGS: SELECTIVE CORONARY ANGIOGRAPHY: Right dominant System Left Main: Large vessel with evidence of borderline ostial/proximal disease with some calcification LAD: 50-60% discrete lesion in the proximal LAD, mid LAD has evidence of a long lesion in the rangeof approximately 30%. LAD is wraparound apex. D1: Small LCx: Mild diffuse disease OM1: Large vessel, originating from the very proximal circumflex artery, bifurcating, mild diffuse disease OM2: Mild diffuse disease OM 3: Mild diffuse disease RCA: Large, anatomically superdominant vessel, originating from the right coronary cusp. Mild disease is present in the proximal and mid RCA. Mid distal RCA has evidence of wide open stent rPDA: Free of significant disease rPLB: Borderline diffuse disease [1] CONCLUSIONS: 1. CAD, as above 2. 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 PCI to the left main, proximal LAD, mid LAD with 3 RAMÓN RECOMMENDATIONS: Extended DAPT Observation on telemetry until tomorrow. I discussed the case with , who kindly agreed toaccept the patient to his service Copious hydration Standard post-cath management as per hospital protocol Cardiovascular Risk Factor modification [2] (01/16/2022 13:57 EDT Echo Transthoracic Complete) SUMMARY/CONCLUSION: 1. Normal left ventricular size and function with mild concentric left ventricular hypertrophy. Theleft ventricular ejection fraction is 65%. 2. Stage 1 diastolic dysfunction. 3. Moderate tricuspid regurgitation with at least mild pulmonary hypertension with a right ventricular systolic pressure of 39 mmHg. 4. In comparison to echocardiogram dated 12/06/2009, no appreciable change is noted. [1] Assessment/Plan 1. CAD (coronary artery disease) (I25.10: Atherosclerotic heart disease of [place] coronary artery without angina pectoris) The patient is revascularized. I am unsure about value of Ranexa and isosorbide. Extended DAPT is indicated, Brilinta and aspirin will be continued. Following 1 year of those agents, I believe, she may be switched to aspirin and clopidogrel. 2. HTN - Hypertension (I10: Essential (primary) hypertension) Blood pressure is well-controlled. 3. Hyperlipidemia (E78.2: Mixed hyperlipidemia) Continue high intensity statin. Will update fasting lipids. Follow-up No qualifying data available 6 months Problem List/Past Medical History Ongoing Anemia Anxiety disorder Asthma Asthma exacerbation Benign hypertension with chronic kidney disease, stage III BMI 26.0-26.9,adult CAD (coronary artery disease) Carotid artery stenosis [...] Cardiac arrest COPD Glaucoma H/O: TIA HEMATURIA [place] - myocardial infarction Stage 3 chronic kidney disease STEMI - ST elevation myocardial infarction Stroke Procedure/Surgical History Cardiac catheterization, left heart (01/21/2024), PCI - Percutaneous coronary inter (more content not included)...[facility] CenterComment on above:Result Comment: Electronically Signed By: Olga HINOJOSA, Jonathon Hernandez\.michael\Date and Time Signed: 03/18/24 15:22 ESTPatient Letter FTMCon [id number] Letter FTPatient Letter FT March 10, [address] [place] [id number] : 1935 To whom it may concern, Due to changes in the [facility] medication administration record system, I will be relinquishing care of the above patient. Please have [facility] staff physicians assume her care. Respectfully, Dr. Deonte Rosario MD [facility] [address] [place], [place] [id number] PbkmsmMbrlscAdena Regional Medical CenterComment on above:Other Comment: Did In error pribnted incorrectlyPatient Letter FTPatient Letter FT March 10, 2024 PIEDDA AL[address]RE [address] [place] [address] RD [address] [place] [address] : 1935 To whom it may concern, Due to changes in the [facility] medication administration record system, I will be relinquishing care of the above patient. Please have [facility] staff physicians assume her care. Respectfully, Dr. Deonte Rosario MD [address] [address] EuufquToeelvAdena Regional Medical CenterPulmonology Office/Clinic Noteon [id number] Office/Clinic NotePulmonology Office/Clinic Note Chief Complaint New patient -- COPD History of Present Illness This is a 88-year-old female with past medical history significant for hypertension, coronary artery disease, previous stent and recent left heart catheterization and stent placement. She never smoked she carry diagnosis of COPD/asthma she does use nebulizer treatment twice a day in the assisted living facility she does report improvement in her symptoms. She denies cough has minimal occasional wheeze she feels it is from her nose. She had a previous CAT scan few years ago with small bilateral pleural effusions and basilar atelectasis. She had a recent chest x-ray with no acute findings. Previous echocardiogram with mild pulmonary hypertension Review of Systems PHQ Score Initial Depression Screen Score: 0 SCORE 12 point system review was done and negative except what mentioned in HPI Physical Exam Vitals & Measurements HR: 65(Peripheral) BP: 146/78 SpO2: 98% HT: 62 in HT: 157 cm General: no distress Skin: warm, dry Head: no trauma, normocephalic Neck: Trachea midline , no adenopathy, no tenderness Eye: normal conjunctiva, sclera clear ENMT: oral mucosa moist Cardiovascular: regular rate and rhythm, normal Respiratory: Lungs CTA ,respirations non labored Chest wall: no deformity. Gastrointestinal: soft , non distended , no tenderness, no guarding. Extremities: no deformity, no trauma Neurological: nonfocal Assessment/Plan 1. Dyspnea (R06.00: Dyspnea, unspecified) Ordered: Pulmonary Function Testing Pulmonary Function Testing 2. CAD (coronary artery disease) (I25.10: Atherosclerotic heart disease of [place] coronary artery without angina pectoris) Ordered: Pulmonary Function Testing Pulmonary Function Testing 3. Restrictive lung disease (J98.4: Other disorders of lung) Ordered: Pulmonary Function Testing Pulmonary Function Testing 4. Asthma (J45.909: Unspecified asthma, uncomplicated) Ordered: Pulmonary Function Testing Pulmonary Function Testing 5. Pulmonary HTN (I27.20: Pulmonary hypertension, unspecified) Ordered: Pulmonary Function Testing Pulmonary Function Testing The etiology of her dyspnea is probably more related to cardiac disease, unclear if there is pulmonary pathology but it could be restrictive lung disease from kyphosis or atelectasis, COPD is less likely with no smoking history asthma is another possibility. I will start with obtaining full pulmonary function test and 6-minute walk test and reevaluate. In the meantime okay to continue bronchodilator nebulizer treatment and albuterol as needed There was a reported mild pulmonary hypertension on previous documentations and testing, again I need her pulmonary function test to evaluate further Follow-up No qualifying data available After testing Problem List/Past Medical History Ongoing Anemia Anxiety disorder Asthma Asthma exacerbation Benign hypertension with chronic kidney disease, stage III BMI 26.0-26.9,adult CAD (coronary artery disease) Carotid artery stenosis [...] Cardiac arrest COPD Glaucoma H/O: TIA HEMATUR[place] - myocardial infarction Stage 3 chronic kidney disease STEMI - ST elevation myocardial infarction Stroke Procedure/Surgical History Cardiac catheterization, left heart (01/21/2024), PCI - Percutaneous coronary intervention (01/21/2024), Colonoscopy (03/18/2022), Colonoscopy (03/18/2022), Radiofrequency ablation of [...] extraction, D&C - Dilatation and curettage, EGD, Esophagogastroduodenoscopy, kidney artery left stent placement, Removal of ovarian cyst, Stents, bilateral legs. Medications acetaminophen, 325 mg, Oral, q6hr, PRN Albuterol (Eqv-Proventil HFA) 90 mcg/inh inhalation aerosol, 2 puff(s), Inhalation, q6hr, 5 refills (more content not included)...[facility] CenterComment on above: Result Comment: Electronically Signed By: Timmy HINOJOSA, Migdalia Medina\.michael\Date and Time Signed: 02/27/24 12:00 [facility] [id number] Case Information Case Priority: None Programs: Behavioral Health CCM Transition Care Management Chronic Care/Condition Management Referral Source: System Identified Referral Reason: System identified Case Type: Transition Care Management Risk Score: 0.90 Case Status: Enrolled (January 26, 2024) Date Assigned: January 26, 2024 Assigned By: Megan Gusman RN Date Enrolled: January 26, 2024 Assigned Primary Personnel: Megan Gusman RN Assigned Secondary Personnel: Samson TOLBERT, Angelica Jeong Case Physician: PAULO HINOJOSA, Deonte Turpin Problems Ongoing Anemia Anxiety disorder Asthma Asthma exacerbation Benign hypertension with chronic kidney disease, stage III BMI 26.0-26.9,adult CAD (coronary artery disease) Carotid artery stenosis [...] Cardiac arrest COPD Glaucoma H/O: TIA HEMATURIA [place] - myocardial infarction Stage 3 chronic kidney disease STEMI - ST elevation myocardial infarction Stroke Procedure/Surgical History Cardiac catheterization, left heart (01/21/2024), PCI - Percutaneous coronary intervention (01/21/2024), Colonoscopy (03/18/2022), Colonoscopy (03/18/2022), Radiofrequency ablation of [...] extraction, D&C - Dilatation and curettage, EGD, Esophagogastroduodenoscopy, kidney artery left stent placement, Removal of ovarian cyst, Stents, bilateral legs. Home Medications acetaminophen, 325 mg, Oral, q6hr, PRN Albuterol (Eqv-Proventil HFA) 90 mcg/inh inhalation aerosol, 2 puff(s), Inhalation, q6hr, 5 refills albuterol 0.083% Inh Melba 3 mL, 2.5 mg= 3 mL, Inhalation, q6hr, PRN, 3 refills amLODIPine 5 mg Tab, 5 mg= 1 tab(s), Oral, Daily, 11 refills aspirin 81 mg oral tablet, 81 mg= 1 tab(s), Oral, Daily atorvastatin 80 mg Tab, 80 mg= 1 tab(s), Oral, Bedtime Atrovent 0.03% [place], 2 spray(s), Nasal, TID, PRN, 1 refills [...] refills isosorbide mononitrate 30 mg ER Tab, 15 mg= 0.5 tab(s), Oral, BID, 11 refills MiraLax, 17 gm, Oral, Daily nitroglycerin 0.4 mg sublingual Tab, 0.4 mg= 1 tab(s), SubLingual, q5min, PRN ondansetron 4 mg Tab, 4 mg= 1 tab(s), Oral, q8hr pantoprazole 40 mg Oral EC Tab, 40 mg, Oral, Daily, 3 refills Ranexa 500 mg Tab-ER, 500 mg= 1 tab(s), Oral, BID, 2 refills spironolactone 25 mg Tab, 25 mg= 1 tab(s), Oral, Daily, 5 refills ticagrelor 90 mg oral tablet, 90 mg= 1 tab(s), Oral, BID traZODONE 50 mg Tab, 25 mg= 0.5 tab(s), Oral, Bedtime Allergies lisinopril (Angioedema) Latex (Rash) Skelaxin (SOB - Shortness of breath) penicillin (Rash, SOB - Shortness of breath) shellfish (Unknown) Social History Alcohol - Low Risk, 12/04/2009 Current, Wine, 1-2 times per year, Alcohol use interferes with work or home: No. Drinks more than intended: No. Others hurt by drinking: No. Ready to change: No. Household alcohol concerns: No., 08/01/2023 Employment/School Retired, 01/19/2011 Home/Environment Lives with Alone. Living situation: Home with assistance. Home equipment: Respiratory treatments, Walker/Cane. Alcohol abuse in household: No. Substance abuse in household: No. Smoker in household: No. Injuries/Abuse/Neglect in household: No. Feels unsafe at home: No. Family/Friends available for support: Yes. Financial concerns: No., 01/19/2011 Substance Abuse - Denies Substance Abuse, 01/19/2011 Household substance abuse concerns: No., 08/01/2023 Tobacco - Denies Tobacco Use, 12/04/2009 Never (less than 100 in lifetime) Tobacco Use:. Never Smokeless Tobacco Use:., 02/05/2024 Fami (more content not included)...[facility]/Clinic Noteon [id number] and Vascular Office/Clinic Note Heart and Vascular Office/Clinic Note Chief Complaint F/U Heart Cath History of Present Illness Piedad is a pleasant 88-year-old female who is a former patient of Dr. Catherine's. Patient history of CAD with prior PCI 11/2020. Patient most recent echo from 01/2022 showed normal EF of 65%, moderatetricuspid regurgitation with mild pulmonary hypertension. Patient comes in for 2-week follow-up after heart cath. 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 This was stabilized with RAMÓN x 3. Patient recovered well. Patient has not had any significant issues with her right wrist since the procedure. She denies significant erythema, pain, swelling in the area. Patient reports that she has been feeling pretty decent since her heart cath. She does still complain of shortness of breath. She states that this did not really change at all from prior to her heartcath and she has an upcoming appointment with pulmonology to assess this further. Patient is compliant with aspirin, atorvastatin, carvedilol, Brilinta. She reports that her shortness of breath is not worsened since procedure and do not think it is related to Brilinta. Patient reports that she is also taking isosorbide, half a tablet twice daily and has not needed any nitro since leaving the hospital. Patient states she does not continue cardiac rehab at this time. Patient denies chest pain, , heart palpitations, dizziness/lightheadedness, and swelling in lower legs. NOTE FROM 01/16/2024: Patient was originally referred to us on 10/31/2020 for the management of hypertension. [facility] requiring CPR [...] to the emergency room on 11/26/2020 at [facility] for chest pain and abnormal troponins. She was treated medically and sent home. She did have issues with angioedema while on lisinopril therapy. Review of Systems PHQ Score Initial Depression Screen Score: 0 SCORE ROS - Provider Constitutional: no fever, no chills, no sweats, no weakness Respiratory: yes shortness of breath, no cough Cardiovascular: no chest pain Neuro: no dizziness. no loss of consciousness Physical Exam Vitals & Measurements HR: 74(Peripheral) RR: 18 BP: 140/80 SpO2: 97% HT: 62 in HT: 157 cm WT: 66.4 kg WT: 146.08 lb BMI: 26.94 General: alert, no acute distress Cardiovascular: regular rate and rhythm, no murmur normal peripheral perfusion Respiratory: Lungs CTAB, respirations non labored Extremities: no edema left lower extremity. no edema right lower extremity. Right radial access site is well healed. No bruising, bleeding, or hematoma. Strong radial pulse with good extremity perfusion. Neurological: oriented x 4, LOC appropriate for age, speech normal Skin: Warm, dry, intact- no rash or concerning lesions Cardiac Diagnostics [facility] on 01/21/[address] Espinoza: FINDINGS: SELECTIVE CORONARY ANGIOGRAPHY: Right dominant System Left Main: Large vessel with evidence of borderline ostial/proximal disease with some calcification LAD: 50-60% discrete lesion in the proximal LAD, mid LAD has evidence of a long lesion in the rangeof approximately 30%. LAD is wraparound apex. D1: Small LCx: Mild diffuse disease OM1: Large vessel, originating from the very proximal circumflex artery, bifurcating, mild diffuse disease OM2: Mild diffuse disease OM 3: Mild diffuse disease RCA: Large, anatomically superdominant vessel, originating from the right coronary cusp. Mild disease is present in the proximal and mid RCA. Mid distal RCA has evidence of wide open stent rPDA: Free of significant disease rPLB: Borderline diffuse disease [1] CONCLUSIONS: 1. CAD, as above 2. 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 PCI to the left main, proximal LAD, mid LAD with 3 RAMÓN RECOMMENDATIONS: Extended DAPT Observation on telemetry until tomorrow. I discussed the case with , who kindly agreed toaccept the patient to his service Copious hydration Standard post-cath management as per hospital protocol Cardiovascular Risk Factor modification [2] (01/16/2022 13:57 EDT Echo Transthoracic Complete) SUMMARY/CONCLUSION: 1. Normal left ventricular size and function with mild concentric left ventricular hypertrophy. Theleft ventricular ejection fraction is 65%. 2. Stage 1 diastolic dysfunction. 3. Moderate tricuspid regurgitation with at least mild pulmonary hypertension with a right ventricular systolic pressure of 39 mmHg. 4. In comparison to echocardiogram dated 12/06/2009, no appreciable change is noted. [3] Assessment/Plan 1. CAD (coronary artery disease) (I25.10: Atherosclerotic heart disease of the [place] coronary arter (more content not included)...[facility] CenterComment on above:Result Comment: Electronically Signed By: Alexx Nicole PA-C\chirag\Date and Time Signed: 02/06/24 15:41 EDTAmbulatory Visit Summaryon [id number] Visit SummaryAmbulatory Visit Summary PIEDAD ALATORRE :1935 Visit Date:02/04/2024 Ambulatory Visit Instructions Your Diagnosis CAD (coronary artery disease) COPD type B HTN - Hypertension Hyperlipidemia Chronic kidney disease (CKD), stage III (moderate) History of CVA in adulthood BMI 26.0-26.9,adult Overweight Neck pain These Are Your Goals B/P will be in normal range for patient Interventions: Low impact exercises: 2 arm and 2 legs exercises- 10 repetitions daily of each or walk in hallway -Progressing Low sodium diet - Progressing Medication Compliance [...] prescribing physician if questions or concerns acetaminophen albuterol (Albuterol (Eqv-Proventil HFA) 90 mcg/inh inhalation aerosol) amlodipine (amLODIPine 5 mg Tab) aspirin (aspirin 81 mg oral tablet) atorvastatin (atorvastatin 80 mg Tab) carvedilol (carvedilol 25 mg Tab) clonidine (cloNIDine 0.1 mg tab) cycloSPORINE ophthalmic (Cequa 0.09% ophthalmic solution) docusate (docusate sodium 100 mg Cap) ferrous sulfate (ferrous sulfate 325 mg oral enteric coated tablet) ipratropium nasal (Atrovent 0.03% [place]) isosorbide mononitrate (isosorbide mononitrate 30 mg ER Tab) nitroglycerin (nitroglycerin 0.4 mg sublingual Tab) ondansetron (ondansetron 4 mg Tab) pantoprazole (pantoprazole 40 mg Oral EC Tab) polyethylene glycol 3350 (MiraLax) spironolactone (spironolactone 25 mg Tab) ticagrelor (ticagrelor 90 mg oral tablet) trazodone (traZODONE 50 mg Tab) Procedures Performed Cardiac catheterization, left heart (01/21/2024), PCI - Percutaneous coronary intervention (01/21/2024), Colonoscopy (03/18/2022), Colonoscopy (03/18/2022), Radiofrequency ablation of [...] extraction, D&C - Dilatation and curettage, EGD, Esophagogastroduodenoscopy, kidney artery left stent placement, Removal of ovarian cyst, Stents, bilateral legs. Discharge Vitals Temperature (Oral) 36.6 ?C Heart Rate (Peripheral) 80 Blood Pressure 112/60 Height 157 cm Height 62 in Weight 66.3 kg Weight 145.86 lb BMI 26.9 What to do next Scheduled Follow-Up Appointments 2023 2:30 PM EDT With: Alexx Nicole PA-C Where: Cardiology Clinic Friday 1:40 PM EST With: Deotne ROSARIO MD Where: [facility] [address] [place] [address]- Friday 1:00 PM EDT With: Where: [facility] [address] [place] [address]- You Need to Schedule the Following Appointments Follow Up with Deonte ROSARIO MD, [facility] When: Comments: at regular appt but sooner if needed. Where: [facility] [address] [place] [address]- Medications What How Much When Why Instructions Unchanged acetaminophen 325 Milligram By Mouth Every 6 hours as needed for as needed for pain Contact prescribing physician if questions or concerns Unchanged albuterol (Albuterol (Eqv-Proventil HFA) 90 mcg/ inh inhalation aerosol) 2 Puffs Inhalation Every 6 hours Acute URI Asthma exacerbation Contact prescribing physician if questions or concerns Unchanged amlodipine (amLODIPine 5 mg Tab) 1 Tablets By Mouth Every day Contact prescribing physician if questions or concerns Unchanged aspirin (aspirin 81 mg oral tablet) 1 Tablets By Mouth Every day Contact prescribing physician if questions or concerns Unchanged atorvastatin (atorvast (more content not included)...[facility] Medicine Office/Clinic Noteon [id number] Medicine Office/Clinic NoteFanew [facility] Office/Clinic Note Chief Complaint Patient here for [facility] f/u for heart cath, d/c'd on 01/20. States she is doing good. History of Present Illness Here for hospital follow up. She was admitted for angina. She had a LHC and stents placed by cardiology. She denies CP. She does feel a little SOB. SHe gets relief when she does her breathing treatments. She wants to do PT again for her neck pain. It helped in the past. Review of Systems PHQ Score Initial Depression Screen Score: 0 SCORE Physical Exam Vitals & Measurements T: 36.6 ?C(Oral) HR: 80(Peripheral) BP: 112/60 SpO2: 97% HT: 62 in HT: 157 cm WT: 66.3 kg WT: 145.86 lb BMI: 26.9 General: Well developed, well nourished, in no acute distress Eyes: Pupils equal, round, and reactive to light. Conjunctivae and sclerae normal, and extraocular movements intact Ears: _HOH Nose: No deformity, discharge, inflammation, or lesions Mouth: MMM. Oropharynx and posterior pharynx without lesions or exudates. Tongue WNL Neck: _supple, no bruit Lungs: Clear but diminished breath sounds Cardio: _RRR Abdomen: Soft, non-distended, non-tender Musculoskeletal: _ambulates with walker Extremity: No clubbing, cyanosis or edema. Neurologic: Grossly normal Skin: No rashes, ulcerations, or suspicious lesions Mental Status: Alert and oriented x3. Normal mood and affect Assessment/Plan 1. CAD (coronary artery disease) (I25.10: Atherosclerotic heart disease of [place] coronary artery without angina pectoris) s/p stent placement 2. COPD type B (J44.9: Chronic obstructive pulmonary disease, unspecified) will refer to pulmonology stay on albuterol nebs for now Ordered: [facility] Internal Ambulatory Referral 3. HTN - Hypertension (I10: Essential (primary) hypertension) stay on amlodipine, carvedilol, spironolactone 4. Hyperlipidemia (E78.2: Mixed hyperlipidemia) stay on atorvastatin 5. Chronic kidney disease (CKD), stage III (moderate) (N18.30: Chronic kidney disease, stage 3 unspecified) eGFR: 31 mL/min/1.73 m2 Low (01/23/24 06:50:00) Creatinine: 1.6 mg/dL High (01/23/24 06:50:00) 6. History of CVA in adulthood (Z86.73: Personal history of transient ischemic attack (TIA), and cerebral infarction without residual deficits) 7. BMI 26.0-26.9,adult (Z68.26: Body mass index [BMI] 26.0-26.9, adult) The standard range for ages 18 and older is >=18.5 and < 25 kg/m2. Your BMI today was above this range, this falls in the overweight to obese category and there are medical benefits to weight loss. We can offer counselling, referral, and/or medical support in addressing this problem. Your BMIand weight management will be followed at subsequent visits. 8. Overweight (E66.3: Overweight) 9. Neck pain (M54.2: Cervicalgia) will refer to PT at her request Follow-up With When Contact Information PAULO HINOJOSA, Deonte Turpin, ROCKY [facility] [address] [place] [address]- Additional Instructions: at regular appt but sooner if needed. Patient Education Carotid Artery Disease, Oxjz-xz-[id number] Problem List/Past Medical History Ongoing Anemia Anxiety disorder Asthma Asthma exacerbation Benign hypertension with chronic kidney disease, stage III BMI 26.0-26.9,adult CAD (coronary artery disease) Carotid artery stenosis [...] Cardiac arrest COPD Glaucoma H/O: [place] - myocardial infarction Stage 3 chronic kidney disease STEMI - ST elevation myocardial infarction Stroke Procedure/Surgical History Cardiac catheterization, left heart (01/21/2024), PCI - Percutaneous coronary intervention (01/21/2024), Colonoscopy (03/18/2022), Colonoscopy (03/18/2022), Radiofrequency ablation of [...] extraction, D&C - Dilatation and curettage, EGD, Esophago (more content not included)...[facility] Comment on above:Result Comment: Electronically Signed By: PAULO HINOJOSA, Deonte Wilkinson.michael\Date and Time Signed: 02/04/24 13:25 [facility] 01-26-2024 [facility] Case Information Case Priority: None Programs: Behavioral Health CCM Transition Care Management Chronic Care/Condition Management Referral Source: System Identified Referral Reason: System identified Case Type: Transition Care Management Risk Score: 0.90 Case Status: Enrolled (January 26, 2024) Date Assigned: January 26, 2024 Assigned By: Megan Gusman RN Date Enrolled: January 26, 2024 Assigned Primary Personnel: Megan Gusman RN Assigned Secondary Personnel: Samson TOLBERT, Angelica Jeong Case Physician: PAULO HINOJOSA, Deonte Turpin Problems Ongoing Anemia Anxiety disorder Asthma Asthma exacerbation Benign hypertension with chronic kidney disease, stage III BMI 26.0-26.9,adult CAD (coronary artery disease) Carotid artery stenosis Change in bowel habits Chronic kidney disease (CKD), stage III (moderate) COPD type B Dysphagia Edema Elevated alkaline phosphatase level Eye pain Female stress incontinence History of colon polyps History of CVA in adulthood HTN - Hypertension Hyperglycemia Hyperlipidemia Insomnia Intertrigo Knee pain, right Large hiatal hernia Leg weakness Leukocytosis Lumbar radiculopathy Neck pain Over weight Seborrheic keratoses Shoulder pain Vasomotor rhinitis Historical Acid reflux Appendectomy blood clots BMI 25.0-25.9,adult Cardiac arrest COPD Glaucoma H/O: [place]IA [place] - myocardial infarction Stage 3 chronic kidney disease STEMI - ST elevation myocardial infarction Stroke Procedure/Surgical History Cardiac catheterization, left heart (01/21/2024), PCI - Percutaneous coronary intervention (01/21/2024), Colonoscopy (03/18/2022), Colonoscopy (03/18/2022), Radiofrequency ablation of [...] extraction, D&C - Dilatation and curettage, EGD, Esophagogastroduodenoscopy, kidney artery left stent placement, Removal of ovarian cyst, Stents, bilateral legs. Home Medications acetaminophen, 325 mg, Oral, q6hr, PRN Albuterol (Eqv-Proventil HFA) 90 mcg/inh inhalation aerosol, 2 puff(s), Inhalation, q6hr amLODIPine 5 mg Tab, 5 mg= 1 tab(s), Oral, Daily, 11 refills aspirin 81 mg oral tablet, 81 mg= 1 tab(s), Oral, Daily atorvastatin 80 mg Tab, 80 mg= 1 tab(s), Oral, Bedtime Atrovent 0.03% [place], 2 spray(s), Nasal, TID, PRN, 1 refills [...] refills isosorbide mononitrate 30 mg ER Tab, 15 mg= 0.5 tab(s), Oral, BID, 11 refills MiraLax, 17 gm, Oral, Daily nitroglycerin 0.4 mg sublingual Tab, 0.4 mg= 1 tab(s), SubLingual, q5min, PRN ondansetron 4 mg Tab, 4 mg= 1 tab(s), Oral, q8hr pantoprazole 40 mg Oral EC Tab, 40 mg, Oral, Daily, 3 refills spironolactone 25 mg Tab, 25 mg= 1 tab(s), Oral, Daily, 5 refills ticagrelor 90 mg oral tablet, 90 mg= 1 tab(s), Oral, BID traZODONE 50 mg Tab, 25 mg= 0.5 tab(s), Oral, Bedtime Allergies lisinopril (Angioedema) Latex (Rash) Skelaxin (SOB - Shortness of breath) penicillin (Rash, SOB - Shortness of breath) shellfish (Unknown) Social History Alcohol - Low Risk, 12/04/2009 Current, Wine, 1-2 times per year, Alcohol use interferes with work or home: No. Drinks more than intended: No. Others hurt by drinking: No. Ready to change: No. Household alcohol concerns: No., 08/01/2023 Employment/School Retired, 01/19/2011 Home/Environment Lives with Alone. Living situation: Home with assistance. Home equipment: Respiratory treatments, Walker/Cane. Alcohol abuse in household: No. Substance abuse in household: No. Smoker in household: No. Injuries/Abuse/Neglect in household: No. Feels unsafe at home: No. Family/Friends available for support: Yes. Financial concerns: No., 01/19/2011 Substance Abuse - Denies Substance Abuse, 01/19/2011 Household substance abuse concerns: No., 08/01/2023 Tobacco - Denies Tobacco Use, 12/04/2009 Never (less than 100 in lifetime) Tobacco Use:. Never Smokeless Tobacco Use:., 01/16/2024 Family History Patient was adopted Family history is unknown Screenings and Assessments 01/26/24 10:11:00 Result Name Value (more content not included)...NormalAdena Pike Medical CenterBMPon 01-23-2024 Anion gap [Moles/Vol]12 mmol/LNormal6-16[facility] CenterComment on above:Performed By: #### [id number] #### [facility] [address], [place] [address]Ejoywjf [Mass/Vol]9.1 mg/dLNormal8.9-11.1FOhioHealth Mansfield HospitalComment on above:Performed By: #### [id number] #### [facility] [address], [place] [address]Onjbdhkz [Moles/Vol]108 mmol/QQnabsn169-544HyopilAdena Pike Medical CenterComment on above:Performed By: #### [id number] #### [facility] [address], [place] [address]UN8 [Moles/Vol]27 mmol/VGtgblp31-06TzeeyoAdena Pike Medical Center Comment on above:Performed By: #### [id number] #### [facility] [address], [place] [address]Zhdeejgmsc [Mass/Vol]1.6 mg/dLHigh0.5-1.3FOhioHealth Mansfield HospitalComment on above:Performed By: #### [id number] #### [facility] [address], [place] [address]Pgemozw [Mass/Vol]104 mg/tALdcjae84-398AzxqfbAdena Pike Medical CenterComment on above:Performed By: #### [id number] #### [facility] [address], [place] [address]Yausznepi [Moles/Vol]4.3 mmol/LNormal3.5-5.3FOhioHealth Mansfield HospitalComment on above:Performed By: #### [id number] #### [facility] [address], [place] [address]Dljjsy [Moles/Vol]143 mmol/LKtlibk498-494RrfcznAdena Pike Medical CenterComment on above:Performed By: #### [id number] #### [facility] [address], [place] [address]Wdqo nitrogen [Mass/Vol]41 mg/dLHigh5-21[facility] Medical CenterComment on above:Performed By: #### [id number] #### [facility] [address] [place] [address]Zvlg nitrogen/Creatinine [Mass ratio]26 No DzgogEdau36-69CrpmeiAdena Pike Medical CenterComment on above:Performed By: #### [id number] #### [facility] [address] [place] [address]YNM w/ Auto Diffon 76-90-0080Ltkquyrfq/100 WBC (Bld)0.7 %Normal 0.0-2.0[facility] Medical CenterComment on above:Performed By: #### [id number] #### [facility] [address] [place] [address]Cqjirltel/Leukocytes Auto (Bld) [Pure # fraction]0.1 E9/LNormal 0.0-0.2FOhioHealth Mansfield HospitalComment on above:Performed By: #### [id number] #### [facility] [address] [place] [address]Zxvxssgqcqn (Bld) [#/Vol]0.4 E9/LNormal0.0-0.5FOhioHealth Mansfield HospitalComment on above:Performed By: #### [id number] #### [facility] [address], [place] [address]Oxfluawnuwl/100 WBC (Bld)3.9 %Normal0.0-8.0[facility] Medical CenterComment on above:Performed By: #### [id number] #### [facility] [address] [place] [address]Tfmbhosigev distribution width (RBC) [Ratio]15.2 %High10.9-14.2 [facility] Medical CenterComment on above:Performed By: #### [id number] #### [facility] [address] [place] [address]Dseovtpsfr (Bld) [Volume fraction]32.2 %Low34.0-46.0[facility] Medical CenterComment on above:Performed By: #### [id number] #### [facility] [address] [place] [address]Hgxbzyhvnu (Bld) [Mass/Vol]10.8 g/dLLow12.0-16.0[facility] Medical CenterComment on above:Performed By: #### [id number] #### [facility] [address] [place] [address]Eefhwihcace (Bld) [#/Vol]1.6 E9/LNormal1.0-4.0[facility] Medical CenterComment on above:Performed By: #### [id number] #### [facility] [address] [place] [address]Qiqwmlahklf/100 WBC (Bld)16.9 %Bwapkk23.0-50.0[facility] Medical CenterComment on above:Performed By: #### [id number] #### [facility] [address] [place] [address]USV (RBC) [Entitic mass]29.0 qrGfibuq67.0-34.0[facility] Medical CenterComment on above:Performed By: #### [id number] #### [facility] [address] [place] [address]QMCU (RBC) [Mass/Vol]33.5 g/yILnuzov96.4-36.0[facility] Medical CenterComment on above:Performed By: #### [id number] #### [facility] [address] [place] [address]KDD (RBC) [Entitic vol]86.7 dUCiwbfh06.0-100.0[facility] Medical CenterComment on above:Performed By: #### [id number] #### [facility] [address] [place] [address]Carmddnrb (Bld) [#/Vol]0.8 E9/LNormal0.2-1.0[facility] Medical CenterComment on above:Performed By: #### [id number] #### [facility] [address] [place] [address]Ogrhetkqcdh (Bld) [#/Vol]6.5 E9/LNormal2.0-7.5FOhioHealth Mansfield HospitalComment on above:Performed By: #### [id number] #### [facility] [address] [place] [address]Ummwodfkwkp/100 WBC (Bld)69.8 %Toqhzx84.0-75.0[facility] Medical CenterComment on above:Performed By: #### [id number] #### [facility] [address] [place] [address]Xejizlzd mean volume (Bld) [Entitic vol]7.9 fLNormal6.4-10.8 [facility] Medical CenterComment on above:Performed By: #### [id number] #### [facility] [address] [place] [address]Rbryfcdyf (Bld) [#/Vol]171.0 E9/AJcjmbj714.0-500.0[facility] Medical CenterComment on above:Performed By: #### [id number] #### [facility] [address] [place] [address]KXV (Bld) [#/Vol]3.7 E12/LLow4.3-5.9[facility] Comment on above:Performed By: #### [id number] #### [facility] [address], [place] [address]XZT corrected for nucl RBC Auto (Bld) [#/Vol]9.3 E9/LNormal 4.0-11.0[facility] Medical CenterComment on above:Performed By: #### [id number] #### [facility] [facility] [address], [place] [address]QLTFVIWOYTgwrsdv By: SYSTEM SYSTEM on [id number] gap [Moles/Vol]12 mmol/LNormal6 - 16 mEq/LRemisol ChemCalcium [Mass/Vol]9.1 mg/dL Normal8.9 - 11.1 mg/dLRemisol ChemChloride [Moles/Vol]108 mmol/EJhrlzd958 - 111 mmol/LRemisol ChemCO2 [Moles/Vol]27 mmol/HLaspgr63 - 31 mmol/LRemisol Chem Creatinine [Mass/Vol]1.6 mg/dLHigh0.5 - 1.3 mg/dLRemisol WrxqxZMQ97 mL/min/1.73 m2Low>=59mL/min/1.73 x4Lylguxp ChemGlucose [Mass/Vol]104 mg/ePOqxxvd95 - 199 mg/dLRemisol ChemPotassium [Moles/Vol]4.3 mmol/LNormal3.5 - 5.3 mmol/LRemisol ChemSodium [Moles/Vol]143 mmol/FMitexk268 - 145 mmol/LRemisol ChemUrea nitrogen [Mass/Vol]41 mg/dLHigh5 - 21 mg/dLRemisol ChemUrea nitrogen/Creatinine [Mass ratio]26 mg/qlEnyf00 - 20Remisol ChemDischarge Note-Nursingon 01-23-2024 Discharge Note-NursingDischarge Note-Nursing PIEDAD ALATORRE :1935 Visit Date:01/21/2024 Inpatient Discharge Instructions Your Care Team Admitting Physician - Vivek HINOJOSA, Jose G Kc Referring Physician - Kirnus MD, Jonathon D Reason for Your Visit Coronary angioplasty status, Coronary angioplasty status, Coronary angioplasty status, Coronary angioplasty status, Coronary angioplasty status, Essential (primary) hypertension, Essential (primary) hypertension, Essential (primary) hypertension, Essential (primary) hypertension, Essential (primary) hypertension, Mixed hyperlipidemia, Mixed hyperlipidemia, Mixed hyperlipidemia, Mixed hyperlipidemia, Mixed hyperlipidemia Your Diagnosis Coronary angioplasty status, Coronary angioplasty status, Coronary angioplasty status, Coronary angioplasty status, Coronary angioplasty status, History of percutaneous coronary intervention Essential (primary) hypertension, Essential (primary) hypertension, Essential (primary) hypertension, Essential (primary) hypertension, Essential (primary) hypertension, HTN - Hypertension Hyperlipidemia, Mixed hyperlipidemia, Mixed hyperlipidemia, Mixed hyperlipidemia, Mixed hyperlipidemia, Mixed hyperlipidemia Stage 3 chronic kidney disease CAD (coronary artery disease) Acute URI Anemia Asthma exacerbation Tests Performed CV Cardiovascular -- Results Pending -- CV Coronary IVUS Initial -- Results Pending -- XR Chest Single View Please visit your patient portal for your results or contact your primary care physician. This Is Your Medications List acetaminophen albuterol (Albuterol (Eqv-Proventil HFA) 90 mcg/inh inhalation aerosol) amlodipine (amLODIPine 5 mg Tab) aspirin (aspirin 81 mg oral tablet) atorvastatin (atorvastatin 80 mg Tab) carvedilol (carvedilol 25 mg Tab) clonidine (cloNIDine 0.1 mg tab) cycloSPORINE ophthalmic (Cequa 0.09% ophthalmic solution) docusate (docusate sodium 100 mg Cap) ferrous sulfate (ferrous sulfate 325 mg oral enteric coated tablet) ipratropium nasal (Atrovent 0.03% [place]) isosorbide mononitrate (isosorbide mononitrate 30 mg ER Tab) nitroglycerin (nitroglycerin 0.4 mg sublingual Tab) ondansetron (ondansetron 4 mg Tab) pantoprazole (pantoprazole 40 mg Oral EC Tab) polyethylene glycol 3350 (MiraLax) spironolactone (spironolactone 25 mg Tab) ticagrelor (ticagrelor 90 mg oral tablet) trazodone (traZODONE 50 mg Tab) [Image Removed: STOP]Stop taking these medications ocular lubricant (Refresh Optive) Procedure History Cardiac catheterization, left heart (01/21/2024), PCI - Percutaneous coronary intervention (01/21/2024), Colonoscopy (03/18/2022), Colonoscopy (03/18/2022), Radiofrequency ablation of [...] extraction, D&C - Dilatation and curettage, EGD, Esophagogastroduodenoscopy, kidney artery left stent placement, Removal of ovarian cyst, Stents, bilateral legs. Discharge Vitals Temperature (Axillary) 36.6 ?C Heart Rate (Monitored) 80 Respiratory Rate 16 Blood Pressure 113/50 Weight 65.2 kg What to do next Instructions From Your Doctor Event Name Event Result Pending Diagnostic Test Results None Previously Scheduled Follow-Up Appointments Friday 1:00 PM EDT With: Deonte ROSARIO MD Where: [facility] [address] [place] [address]- 2023 2:30 PM EDT With: Alexx Nicole PA-C Where: Cardiology Clinic Friday 1:40 PM EST With: Deonte ROSARIO MD Where: [facility] [address] [place] [address]- Friday 1:00 PM EDT With: Where: [facility] [address] [place] [address]- New Follow Up Appointments after Discharge Follow Up with Jonathon Espinoza When: 02/05/2024 02:30 PM EDT Comments: This appointment is with Alexx Nicole NP. Thank you. Where: [address] [place] [phone] Business (1) Follow Up with Deonte ROSARIO When: 02/04/2024 01:00 PM EDT Where: [facility] [address], [address] [place] [address]- Business (1) Medications What How Much When Why Instructions Next Dose Changed trazodone (traZODONE 50 mg Tab) 0.5 Tablets By Mouth At (more content not included)...[facility] CenterHEMATOLOGYOrdered By: SYSTEM SYSTEM on 41-74-5459Ishjpuciy/100 WBC (Bld)0.7 %Normal0.0 - 2.0 %Remisol Heme Basophils/Leukocytes Auto (Bld) [Pure # fraction]0.1 E9/LNormal0.0 - 0.2 E9/L Remisol HemeEosinophils (Bld) [#/Vol]0.4 E9/LNormal0.0 - 0.5 E9/LRemisol Heme Eosinophils/100 WBC (Bld)3.9 %Normal0.0 - 8.0 %Remisol HemeErythrocyte distribution width (RBC) [Ratio]15.2 %High10.9 - 14.2 %Remisol HemeHematocrit (Bld) [Volume fraction]32.2 %Low34.0 - 46.0 %Remisol HemeHemoglobin (Bld) [Mass/Vol]10.8 g/dLLow12.0 - 16.0 gm/dLRemisol HemeLymphocytes (Bld) [#/Vol]1.6 E9/LNormal1.0 - 4.0 E9/LRemisol HemeLymphocytes/100 WBC (Bld)16.9 %Ltczhb54.0 - 50.0 %Remisol HemeMCH (RBC) [Entitic mass]29.0 kwWhraoh86.0 - 34.0 pgRemisol HemeMCHC (RBC) [Mass/Vol]33.5 g/uNZviqnl80.4 - 36.0 gm/dLRemisol HemeMCV (RBC) [Entitic vol]86.7 bMHrkgcw75.0 - 100.0 fLRemisol HemeMonocytes (Bld) [#/Vol]0.8 E9/LNormal0.2 - 1.0 E9/LRemisol HemeMonocytes/100 WBC (Bld)8.7 %Normal4.0 - 14.0 %Remisol HemeNeutrophils (Bld) [#/Vol]6.5 E9/LNormal2.0 - 7.5 E9/LRemisol Heme Neutrophils/100 WBC (Bld)69.8 %Jcenhl09.0 - 75.0 %Remisol HemePlatelet mean volume (Bld) [Entitic vol]7.9 fLNormal6.4 - 10.8 fLRemisol HemePlatelets (Bld) [#/Vol]171.0 E9/IUibdnp529.0 - 500.0 E9/LRemisol HemeRBC (Bld) [#/Vol]3.7 E12/L Low4.3 - 5.9 E12/LRemisol HemeWBC corrected for nucl RBC Auto (Bld) [#/Vol]9.3 E9/LNormal4.0 - 11.0 E9/LRemisol HemeInterdisciplinary Note - Case Manageron [id number] Note - Case ManagerInterdisciplinary Note - Guide Rail Cleaner Patient is awake and alert in bed, previously rounded with Dr. Doyle. Pt is from [facility] and plan to return at DC. Pt is hoping to DC today, facility will be able to transportat DC per patient. Discussed will check cost of Brilinta prior to DC and provide coupon if able. ptdeclines any further needs. Medicare rights reviewed, second copy provided. . PCP verified and insur ance information reviewed and DME discussed. Contact information provided and white board updated. negative desat study 01/22/24, no need for home oxygen. Patient remains on room air.[facility] Medical CenterComment on above:Result Comment: Electronically Signed By: Ti TOLBERT, Thalia\.michael\Date and Time Signed: 01/23/24 11:38 EDTeGFRon 66-40-1585kTER61 mL/min/1.73 m2Low>=59[facility] Medical CenterComment on above:Order Comment: Order added by Discern Expert.Performed By: #### [id number] ####[facility] [address] [place], [place] [address]CQHcx 76-22-7176Mqqjj gap [Moles/Vol]10 mmol/LNormal6-16 [facility] CenterComment on above:Performed By: #### [id number] #### [facility] [address], [place] [address]Vmujvhv [Mass/Vol]8.4 mg/dLLow8.9-11.1FOhioHealth Mansfield HospitalComment on above:Performed By: #### [id number] #### [facility] [address], [place] [address]Aknfmgwg [Moles/Vol]112 mmol/IIutt406-404MsibnqAdena Pike Medical CenterComment on above:Performed By: #### [id number] #### [facility] [address], [place] [address]RL3 [Moles/Vol]23 mmol/KXhcdxy58-66LptnrjAdena Pike Medical Center Comment on above:Performed By: #### [id number] #### [facility] [address], [place] [address]Aanmcbnfsk [Mass/Vol]1.3 mg/dLNormal0.5-1.3FOhioHealth Mansfield HospitalComment on above:Performed By: #### [id number] #### [facility] [address], [place] [address]Zoaehsw [Mass/Vol]94 mg/nZUzboxl68-207FaktuzAdena Pike Medical CenterComment on above:Performed By: #### [id number] #### [facility] [address], [place] [address]Rdgzrttev [Moles/Vol]4.6 mmol/LNormal3.5-5.3FOhioHealth Mansfield HospitalComment on above:Performed By: #### [id number] #### [facility] [address], [place] [address]Ynlwvd [Moles/Vol]140 mmol/VQmbgdt745-184FrpynoAdena Pike Medical CenterComment on above:Performed By: #### [id number] #### [facility] [address] [place] [address]Wzbh nitrogen [Mass/Vol]40 mg/dLHigh5-21[facility] CenterComment on above:Performed By: #### [id number] #### [facility] [address] [place] [address]Ycys nitrogen/Creatinine [Mass ratio]31 No CzfzkKlav80-06RtmksuAdena Pike Medical CenterComment on above:Performed By: #### [id number] #### [facility] [address] [place] [address]BFQob 79-99-5831Orpcslzpuop peptide B (Bld) [Mass/Vol]159 pg/mL High5-80[facility] CenterComment on above:Performed By: #### [id number] #### [facility] [address] [place] [address]WLG w/ Auto Diffon 51-46-4140Bziaqtmij/100 WBC (Bld)0.6 %Normal 0.0-2.0[facility] CenterComment on above:Performed By: #### [id number] #### [facility] [address] [place] [address]Zyqefkmpx/Leukocytes Auto (Bld) [Pure # fraction]0.1 E9/LNormal 0.0-0.2[facility] Medical CenterComment on above:Performed By: #### [id number] #### [facility] [address] [place] [address]Fspisnpaqhj (Bld) [#/Vol]0.3 E9/LNormal0.0-0.5[facility] Medical CenterComment on above:Performed By: #### [id number] #### [facility] [address] [place] [address]Nbrcvusaiuy/100 WBC (Bld)2.6 %Normal0.0-8.0[facility] CenterComment on above:Performed By: #### [id number] #### [facility] [address], [place] [address]Zvpapjbsdmu distribution width (RBC) [Ratio]15.7 %High10.9-14.2 [facility] CenterComment on above:Performed By: #### [id number] #### [facility] [address] [place] [address]Qrlsgoqaaa (Bld) [Volume fraction]29.9 %Low34.0-46.0[facility] CenterComment on above:Performed By: #### [id number] #### [facility] [address] [place] [address]Iumcuoiopu (Bld) [Mass/Vol]10.3 g/dLLow12.0-16.0[facility] CenterComment on above:Performed By: #### [id number] #### [facility] [address] [place] [address]Axxelohoalm (Bld) [#/Vol]1.5 E9/LNormal1.0-4.0[facility] CenterComment on above:Performed By: #### [id number] #### [facility] [address] [place] [address]Jdjlhrjtgpk/100 WBC (Bld)15.1 %Bgpzsz20.0-50.0[facility] CenterComment on above:Performed By: #### [id number] #### [facility] [address] [place] [address]YVM (RBC) [Entitic mass]30.0 lkKiwhjz59.0-34.0[facility] CenterComment on above:Performed By: #### [id number] #### [facility] [address] [place] [address]RMWH (RBC) [Mass/Vol]34.4 g/uRGmpfmt35.4-36.0[facility] CenterComment on above:Performed By: #### [id number] #### [facility] [address] [place] [address]EWJ (RBC) [Entitic vol]87.3 bANisnhh78.0-100.0[facility] CenterComment on above:Performed By: #### [id number] #### [facility] [address] [place] [address]Jhvaljtkr (Bld) [#/Vol]0.7 E9/LNormal0.2-1.0[facility] CenterComment on above:Performed By: #### [id number] #### [facility] [address] [place] [address]Demhxumwtxo (Bld) [#/Vol]7.4 E9/LNormal2.0-7.5FOhioHealth Mansfield HospitalComment on above:Performed By: #### [id number] #### [facility] [address] [place] [address]Qvbwmyytuem/100 WBC (Bld)74.3 %Eifxmy75.0-75.0[facility] Medical CenterComment on above:Performed By: #### [id number] #### [facility] [address] [place] [address]Lvndhnyy946.0 E9/YCxqzmr219.0-500.0[facility] Comment on above:Performed By: #### [id number] #### [facility] [address] [place] [address]Ztjquehf mean volume (Bld) [Entitic vol]7.7 fLNormal6.4-10.8 [facility] CenterComment on above:Performed By: #### [id number] #### [facility] [address] [place] [address]QYR (Bld) [#/Vol]3.4 E12/LLow4.3-5.9[facility] Comment on above:Performed By: #### [id number] #### [facility] [address] [place] [address]YDV corrected for nucl RBC Auto (Bld) [#/Vol]9.9 E9/LNormal 4.0-11.0[facility] CenterComment on above:Performed By: #### [id number] #### [facility] [address] [place], [place] [address]MGULQNFALGgvvafr By: SYSTEM SYSTEM on 91-57-1531Vixhc gap [Moles/Vol]10 mmol/LNormal6 - 16 mEq/LRemisol ChemCalcium [Mass/Vol]8.4 mg/dLLow 8.9 - 11.1 mg/dLRemisol ChemChloride [Moles/Vol]112 mmol/EBfec723 - 111 mmol/L Remisol ChemCO2 [Moles/Vol]23 mmol/JFjkwyp48 - 31 mmol/LRemisol ChemCobalamin (Vitamin B12) [Mass/Vol]270 pg/qWKbbxwa98 - 1500 pg/mLRemisol ChemCreatinine [Mass/Vol]1.3 mg/dLNormal0.5 - 1.3 mg/dLRemisol LfobrMMH55 mL/min/1.73 m2Low >=59mL/min/1.73 m2Ryevibb ChemFerritin [Mass/Vol]33 ng/oHFmjvdq27 - 307 ng/mL Remisol ChemGlucose [Mass/Vol]94 mg/iFVndroe41 - 199 mg/dLRemisol ChemIron [Mass/Vol]91 ug/oOOruwok85 - 153 mcg/dLRemisol ChemIron binding capacity [Mass/Vol]274 ug/iBJnmmjt400 - 400 mcg/dLRemisol ChemPotassium [Moles/Vol]4.6 mmol/LNormal3.5 - 5.3 mmol/LRemisol ChemSodium [Moles/Vol]140 mmol/NEtqizy969 - 145 mmol/LRemisol ChemTransferrin [Mass/Vol]196 mg/rQBfu348 - 370 mg/dLRemisol ChemTSH Qn1.00 m[IU]/LNormal0.34 - 5.60 mcIU/mLRemisol ChemUrea nitrogen [Mass/Vol]40 mg/dLHigh5 - 21 mg/dLRemisol ChemUrea nitrogen/Creatinine [Mass ratio]31 mg/mbNbbp41 - 20Remisol ChemCHEMISTRYOrdered By: Paulina Fitzgerald on 75-05-0136Iaeirltqlax peptide B (Bld) [Mass/Vol]159 pg/mLHigh5 - 80 pg/mLINTEGRIS HEALTH [facility]MON[facility] [place] HemeManSSCoding Queryon 03-59-5484Pmtnzi QueryCoding Query From: Adam Hammer RN To: Jose G Doyle MD; Sent: 01/22/2024 08:23:08 EDT ! Subject: Coding Query Due Date/Time: 01/23/2024 08:22:00 EDT Caller Name: PIEDAD ALATORRE; Caller Number: Hugo , M Documentation per a field technical support consultant in the medical record indicates this patient has been diagnosed as having: Chronic kidney disease stage 3 , hx cva, COPD The following is also documented in the medical record: 12/30 Family medicine: Chronic Kidney disease stage 3 History of CVA COPD Based on your medical judgment of the documented diagnoses by the field technical support consultant, do you agree with thediagnosis? [___]Yes, I agree with the diagnosis documented by the field technical support consultant. [___]No, I do not agree with the diagnosis documented by the field technical support consultant. Reason: [___]Other: In responding to this request, please exercise your independent professional judgement. The fact that a question is asked does not imply that any particular answer is desired or expected. Thank you!adam [phone] From: Jose G Doyle MD To: Adam Hammer RN; Sent: 01/22/2024 14:17:01 EDT Subject: RE: Coding Query Caller Name: PIEDAD ALATORRE; Caller Number: Hugo , M Dx: Yes I agree with the diagnosis documented by the consultantAdena Regional Medical CenterCoding QueryCoding Query From: Adam Hammer RN To: Jose G Doyle MD; Sent: 01/22/2024 08:23:08 EDT ! Subject: Coding Query Due Date/Time: 01/23/2024 08:22:00 EDT Caller Name: PIEDAD ALATORRE; Caller Number: Hugo , M Documentation per a field technical support consultant in the medical record indicates this patient has been diagnosed as having: Chronic kidney disease stage 3 , hx cva, COPD The following is also documented in the medical record: 12/30 Family medicine: Chronic Kidney disease stage 3 History of CVA COPD Based on your medical judgment of the documented diagnoses by the field technical support consultant, do you agree with thediagnosis? [___]Yes, I agree with the diagnosis documented by the field technical support consultant. [___]No, I do not agree with the diagnosis documented by the field technical support consultant. Reason: [___]Other: In responding to this request, please exercise your independent professional judgement. The fact that a question is asked does not imply that any particular answer is desired or expected. Thank you!adam [id number] Pike Medical CenterFerritinon 48-63-3072Eldukiea [Mass/Vol]33 ng/dFLrendd99-280VwaqwiAdena Pike Medical CenterComment on above:Performed By: #### [id number] #### [facility] [address] [place] [address]BSLRTWSQOQMbpqqsg By: SYSTEM SYSTEM on 01-87-5786Bfsuwvtqn/100 WBC (Bld)0.6 %Normal0.0 - 2.0 %Remisol HemeBasophils/Leukocytes Auto (Bld) [Pure # fraction]0.1 E9/LNormal0.0 - 0.2 E9/LRemisol HemeEosinophils (Bld) [#/Vol]0.3 E9/LNormal0.0 - 0.5 E9/LRemisol HemeEosinophils/100 WBC (Bld)2.6 %Normal0.0 - 8.0 %Remisol HemeErythrocyte distribution width (RBC) [Ratio]15.7 %High10.9 - 14.2 %Remisol HemeHematocrit (Bld) [Volume fraction]29.9 %Low34.0 - 46.0 % Remisol HemeHemoglobin (Bld) [Mass/Vol]10.3 g/dLLow12.0 - 16.0 gm/dLRemisol Heme Lymphocytes (Bld) [#/Vol]1.5 E9/LNormal1.0 - 4.0 E9/LRemisol HemeLymphocytes/100 WBC (Bld)15.1 %Hlkifu08.0 - 50.0 %Remisol HemeMCH (RBC) [Entitic mass]30.0 pg Nrzwom95.0 - 34.0 pgRemisol HemeMCHC (RBC) [Mass/Vol]34.4 g/zGQxhfev48.4 - 36.0 gm/dLRemisol HemeMCV (RBC) [Entitic vol]87.3 sCNzomwm08.0 - 100.0 fLRemisol Heme Monocytes (Bld) [#/Vol]0.7 E9/LNormal0.2 - 1.0 E9/LRemisol HemeMonocytes/100 WBC (Bld)7.4 %Normal4.0 - 14.0 %Remisol HemeNeutrophils (Bld) [#/Vol]7.4 E9/LNormal 2.0 - 7.5 E9/LRemisol HemeNeutrophils/100 WBC (Bld)74.3 %Pzbmih49.0 - 75.0 % Remisol OzanRvxbdoat687.0 E9/IBlgfzn369.0 - 500.0 E9/LRemisol HemePlatelet mean volume (Bld) [Entitic vol]7.7 fLNormal6.4 - 10.8 fLRemisol HemeRBC (Bld) [#/Vol] 3.4 E12/LLow4.3 - 5.9 E12/LRemisol HemeWBC corrected for nucl RBC Auto (Bld) [#/Vol]9.9 E9/LNormal4.0 - 11.0 E9/LRemisol HemeInpatient Clinical Summaryon 58-22-1023Pgbnhoczt Clinical SummaryInpatient Clinical Summary [address] [address] Clinical Summary Person Information: Name: PIEDAD ALATORRE Age: 88 Years : 1935 Sex: Female PCP: Deonte ROSARIO MD Marital Status: Race: White Ethnicity: Non- or Language: Djiboutian Visit Id: Visit Reason: I25.10 I20.0 Speciality: Acuity: Enc Type: Inpatient Med Service: Medical Arrival: 01/21/2024 07:23:23 Discharge: Dispo Type: Address: [address] [place] [address] [address] [place] [id number] Provider Notes: Diagnosis: 2:HTN - Hypertension; 3:Hyperlipidemia; 4:Stage 3 chronic kidney disease; 5:CAD (coronary artery disease); Acute URI; Anemia; Asthma exacerbation Problems Active Over weight BMI 26.0-26.9,adult Asthma exacerbation Eye pain Benign hypertension with chronic kidney disease, stage III Chronic kidney disease (CKD), stage III (moderate) Change in bowel habits History of colon polyps Large hiatal hernia Leukocytosis Knee pain, right History of CVA in adulthood Dysphagia Elevated alkaline phosphatase level CAD (coronary artery disease) Neck pain COPD type B Shoulder pain Seborrheic keratoses HTN - Hypertension Hyperlipidemia Hyperglycemia Anemia Vasomotor rhinitis Carotid artery stenosis Insomnia Edema Leg weakness Intertrigo Lumbar radiculopathy Anxiety disorder Asthma Female stress incontinence Smoking Status: Never Smoker Functional Status: Sensory Deficits: Uncorrected visual impairment History of Falls: Mobility Assistance Prior to Admission: Independent ADLs: Minimal assistance Current Level of Assistance for Self-Care/Mobility: Cognitive Status: Allergies penicillin (SOB - Shortness of breath) (Rash) Skelaxin (SOB - Shortness of breath) shellfish (Unknown) Latex (Rash) lisinopril (Angioedema) Measurements: Height: 157 cm Weight: 65.6 kg Blood Pressure: 168 mmHg / 71 mmHg BMI: 26.37 kg/m2 Procedures PCI - Percutaneous coronary intervention (01/21/2024) Cardiac catheterization, left heart (01/21/2024) Immunizations No Immunizations Documented This Visit Final Med List: acetaminophen 325 Milligram By Mouth every 6 hours as needed as needed for pain. albuterol (Albuterol (Eqv-Proventil HFA) 90 mcg/inh inhalation aerosol) 2 Puffs Inhalation every 6 hours. Refills: 0. amlodipine (amLODIPine 5 mg Tab) 1 Tablets [...] day. Refills: 5. ipratropium nasal (Atrovent 0.03% [place]) 2 Sprays Nasal Inhalation 3 times a day as needed Other (see comment). Refills: 1. isosorbide mononitrate (isosorbide mononitrate 30 mg ER Tab) 0.5 Tablets By Mouth 2 times a day. [...] a day. trazodone (traZODONE 50 mg Tab) 0.5 Tablets By Mouth once a day (at bedtime). Refills: 5. Care Team Members: Attending Physician: Jose G Doyle MD Consulting Physician: Referring Physician: Jonathon Espinoza MD Follow up: Type Location Start Finish State FM Open [facility] 03/29/2024 1:40 PM 03/29/2024 2:00 PM Confirmed FM Medicare Wellness Subsequent [facility] 08/03/2024 1:00 PM 08/03/2024 2:00 PM Confirmed Patient Education Information:[facility] CenterInpatient Patient Summaryon [id number] Patient SummaryInpatient Patient Summary [address] [address] Patient Discharge Instructions PERSON INFORMATION Name: PIEDAD ALATORRE Date of : 1935 Current Date: 01/22/2024 09:47:53 PHYSICIANS Admitting Physician: Vivek HINOJOSA, Jose G Kc Primary Care Physician: Deonte ROSARIO MD Comment: Discharge Diagnosis: 2:HTN - Hypertension; 3:Hyperlipidemia; 4:Stage 3 chronic kidney disease; 5:CAD (coronary artery disease); Acute URI; Anemia; Asthma exacerbation Condition at Discharge: PIEDAD ALATORRE has been given the following list of follow-up instructions, prescriptions, and patient education materials: PATIENT FOLLOW-UP INFORMATION Diet: Discharge Activity: Discharge Restrictions: Wound Care Instructions: Remove Your Dressing In Days Call Your Doctor For: IF UNABLE TO CONTACT YOUR PHYSICIAN AND YOU FEEL IT IS AN EMERGENCY, GO TO THE NEAREST EMERGENCY ROOM OR CALL 911 Home Treatment: Devices/Equipment: None Special Services: Additional Instructions: Primary Care Physician to provide the following pending test results: Follow up: In the event that this physician does not participate in your insurance network, please consult with your insurance company to find a nearby participating provider. Type Location Start Finish State FM Open [facility] 03/29/2024 1:40 PM 03/29/2024 2:00 PM Confirmed FM Medicare Wellness Subsequent [facility] 08/03/2024 1:00 PM 08/03/2024 2:00 PM Confirmed Comment: I PHYLLIS PIEDAD E, have received the attached patient education materials/instructions and haveverbalized understanding: Patient Signature Date Clinican/Nurse Signature Date HERE ARE THE MEDICATION CHANGES THAT OCCURRED DURING YOUR HOSPITAL STAY Medications to Continue with No Changes Other Medications acetaminophen 325 Milligram By Mouth every 6 hours as needed as needed for pain. Last Dose: Next Dose: albuterol (Albuterol (Eqv-Proventil HFA) 90 mcg/inh inhalation aerosol) 2 Puffs Inhalation every 6 hours. Refills: 0. Last Dose: Next Dose: amlodipine (amLODIPine 5 mg Tab) 1 Tablets By Mouth every day. Refills: 11. Last Dose: Next Dose: aspirin (aspirin 81 mg oral tablet) 1 Tablets By Mouth every day. Last Dose: Next Dose: atorvastatin (atorvastatin 80 mg Tab) 1 Tablets By Mouth at bedtime. Refills: 0. Last Dose: Next Dose: carvedilol (carvedilol 25 mg Tab) 1 Tablets By Mouth 2 times a day. Refills: 3. Last Dose: Next Dose: clonidine (cloNIDine 0.1 mg tab) 0.1 Milligram By Mouth 2 times a day. Refills: 3. Last Dose: Next Dose: cycloSPORINE ophthalmic (Cequa 0.09% ophthalmic solution) Both eyes every 12 hours. Last Dose: Next Dose: docusate (docusate sodium 100 mg Cap) 1 Capsules By Mouth 2 times a day as needed for constipation. Last Dose: Next Dose: ferrous sulfate (ferrous sulfate 325 mg oral enteric coated tablet) 1 Tablets By Mouth every day. Refills: 5. Last Dose: Next Dose: ipratropium nasal (Atrovent 0.03% [place]) 2 Sprays Nasal Inhalation 3 times a day as needed Other (see comment). Refills: 1. Last Dose: Next Dose: isosorbide mononitrate (isosorbide mononitrate 30 mg ER Tab) 0.5 Tablets By Mouth 2 times a day. Refills: 11. Last Dose: Next Dose: nitroglycerin (nitroglycerin 0.4 mg sublingual Tab) 1 Tablets Sublingual every 5 minutes as needed for chest pain. Last Dose: Next Dose: ocular lubricant (Refresh Optive) 1 Drops Both eyes 3 times a day. Last Dose: Next Dose: ondansetron (ondansetron 4 mg Tab) 1 Tablets By Mouth every 8 hours. Last Dose: Next Dose: pantoprazole (pantoprazole 40 mg Oral EC Tab) 40 Milligram By Mouth every day. Refills: 3. Last Dose: Next Dose: polyethylene glycol 3350 (MiraLax) 17 Gram By Mouth every day. Last Dose: Next Dose: spironolactone (spironolactone 25 mg Tab) 1 Tablets By Mouth every day. Refills: 5. Last Dose: Next Dose: ticagrelor (ticagrelor 90 mg oral tablet) 1 Tablets By Mouth 2 times a day. Last Dose: Next Dose: trazodone (traZODONE 50 (more content not included)...[facility] Medical CenterInterdisciplinary Note - Case Manageron 76-29-0138Jexkxqsvcggkvhfmb Note - Case ManagerInterdisciplinary Note - Guide Rail Cleaner Patient is awake and alert in bed, previously rounded with Dr. Doyle. Pt is aware of plan to stayin hospital today. pt is from [facility] living and plan to return at ID, states they will transport her home at ID. Inpatient status reviewed, form signed and original provided. Declinesneed to call family at this time. Pt is on room air. Discussed on brilinta and will need to check co st of medication with her pharmacy prior to DC, CRM following . PCP verified and insurance information reviewed and DME discussed. Contact information provided and white board updated.[facility] Medical CenterComment on above:Result Comment: Electronically Signed By: Ti TOLBERT, Thalia\.michael\Date and Time Signed: 01/22/24 08:54 EDTInterdisciplinary Note - OTon 01-22-2024 Interdisciplinary Note - OTInterdisciplinary Note - OT OT AM-PAC SIX CLICKS SCORE =Home no needs. Pt completes ADL self care tasks with setup A and ADL transfers with close S and FWW. Pt dc recommendation is to return to assisted living once pt is medically cleared. No needs for OT at time of eval as pt is at PLOF.[facility] Medical CenterIronon 99-83-1156Wzdt [Mass/Vol]91 microgram/mMFanbdu30-397EiaflwAdena Pike Medical CenterComment on above:Performed By: #### [id number] #### [facility] [address], [place] [address]Znjcbem Education - Texton 17-15-2766Fuyfogj Education - Text Patient Education - [facility] Medical CenterTIBC Calculatedon 85-75-6627Nwvx binding capacity [Mass/Vol]274 microgram/tBXpyoms216-742JnwrqzAdena Pike Medical CenterComment on above:Performed By: #### [id number] #### [facility] [address], [place] [address]Fyvrigwcaic [Mass/Vol]196 mg/bPDsw693-695PqhswrAdena Pike Medical CenterComment on above:Performed By: #### [id number] #### [facility] [address], [place] [address]RUP With T4fr Reflexon 97-23-5624IFP Qn1.00 m[IU]/LNormal 0.34-5.60A[facility] Medical CenterComment on above:Performed By: #### [id number] #### [facility] [address], [place] [address]Egh B12on 06-36-5498Uugcguwvv (Vitamin B12) [Mass/Vol]270 pg/mL Vfxhmj80-1202UjjbdpAdena Pike Medical CenterComment on above:Performed By: #### [id number] #### [facility] [address], [place] [address]DM Chest Single Viewon [id number] Chest Single ViewExam Date/Time: 01/22/2024 09:01 EDT Reason for Exam: Difficulty breathing Report IMPRESSION: NO EVIDENCE OF ACTIVE CARDIOPULMONARY DISEASE, BY PORTABLE CHEST RADIOGRAPHY. EXAM: XR Chest Single View DATE: 01/22/2024 8:47 AM CLINICAL HISTORY: Difficulty breathing. COMPARISON: Portable chest and chest CT 11/26/2020. TECHNIQUE: A portable upright AP radiograph of the chest was obtained. FINDINGS: There is no significant pulmonary infiltrate, cardiomegaly, vascular congestion, sizable pleural effusion, pneumothorax, or displaced fractures identified. A moderate to large-sized hiatal hernia is again noted. Ordering Provider: Jose G Doyle FINAL REPORT Dictated: 01/22/2024 12:59 pm Kostas Chicas MD Signed (Electronic Signature): 01/22/2024 12:59 pm Signed by: Kostas Chicas MD Transcribed by: HARI Technologist: PROSPER Technical Comments Radiation Dose: Ka,r in mGy = . DAP = .NormalAdena Pike Medical CentereGFRon 21-64-2599aRVR13 mL/min/1.73 m2 Low>=59A[facility]ike Medical CenterComment on above:Order Comment: Order added by Discern Expert.Performed By: #### [id number] ####[facility] [address] [place], [place] [address]RPUes 73-57-4636Rxiua gap [Moles/Vol] 13 mmol/LNormal6-16[facility] Medical CenterComment on above:Order Comment: if not completed in last 30 daysPerformed By: #### [id number] #### [facility] [address], [place] [address]Tqywoqt [Mass/Vol]9.1 mg/dLNormal8.9-11.1FOhioHealth Mansfield HospitalComment on above:Order Comment: if not completed in last 30 daysPerformed By: #### [id number] #### [facility] [address], [place] [address]Jhabbplk [Moles/Vol]107 mmol/DAmmpxj802-789EmhnmsAdena Pike Medical CenterComment on above:Order Comment: if not completed in last 30 daysPerformed By: #### [id number] #### [facility] [address], [place] [address]BI0 [Moles/Vol]24 mmol/TDrbgpe28-56NtrhuvAdena Pike Medical Center Comment on above:Order Comment: if not completed in last 30 daysPerformed By: #### [id number] #### [facility] [address], [place] [address]Bahzwicons [Mass/Vol]1.5 mg/dLHigh0.5-1.3FOhioHealth Mansfield HospitalComment on above:Order Comment: if not completed in last 30 daysPerformed By: #### [id number] #### [facility] [address], [place] [address]Ggzqwyh [Mass/Vol]118 mg/aDEkpior08-874TzrfjnAdena Pike Medical CenterComment on above:Order Comment: if not completed in last 30 daysPerformed By: #### [id number] #### [facility] [address], [place] [address]Cjeeqieuf [Moles/Vol]4.7 mmol/LNormal3.5-5.3FOhioHealth Mansfield HospitalComment on above:Order Comment: if not completed in last 30 days Performed By: #### [id number] #### [facility] [address], [place] [address]Mtztai [Moles/Vol]139 mmol/OPivqnb708-094NnurouAdena Pike Medical CenterComment on above:Order Comment: if not completed in last 30 daysPerformed By: #### [id number] #### [facility] [address], [place] [address]Xmsl nitrogen [Mass/Vol]37 mg/dLHigh5-21[facility] Medical CenterComment on above:Order Comment: if not completed in last 30 daysPerformed By: #### [id number] #### [facility] [address], [place] [address]Mwna nitrogen/Creatinine [Mass ratio]25 No PxhdcGanf46-32OgirwdAdena Pike Medical CenterComment on above:Order Comment: if not completed in last 30 daysPerformed By: #### [id number] #### [facility] [address] [place] [address]SKP w/Indiceson 60-91-0129Lkjfyguesei distribution width (RBC) [Ratio]15.0 %High10.9-14.2FOhioHealth Mansfield HospitalComment on above:Order Comment: if not completed in last 30 daysPerformed By: #### [id number] #### [facility] [address] [place] [address]Lrhdjvuesf (Bld) [Volume fraction]33.7 %Low34.0-46.0A[facility] Medical CenterComment on above:Order Comment: if not completed in last 30 daysPerformed By: #### [id number] #### [facility] [address] [place] [address]Wxfskddzte (Bld) [Mass/Vol]11.3 g/dLLow12.0-16.0A[facility] Medical CenterComment on above:Order Comment: if not completed in last 30 days Performed By: #### [id number] #### [facility] [address] [place] [address]YTH (RBC) [Entitic mass]29.0 zwUghcxp29.0-34.0A[facility] Medical CenterComment on above:Order Comment: if not completed in last 30 days Performed By: #### [id number] #### [facility] [address] [place] [address]TUZG (RBC) [Mass/Vol]33.5 g/hNJgvxkt50.4-36.0A[facility] Medical CenterComment on above:Order Comment: if not completed in last 30 days Performed By: #### [id number] #### [facility] [address] [place] [address]TCE (RBC) [Entitic vol]86.5 dTXknibz28.0-100.0A[facility] Medical CenterComment on above:Order Comment: if not completed in last 30 days Performed By: #### [id number] #### [facility] [address] [place] [address]Xzmsxrzf mean volume (Bld) [Entitic vol]7.8 fLNormal6.4-10.8 [facility] Medical CenterComment on above:Order Comment: if not completed in last 30 daysPerformed By: #### [id number] #### [facility] [address] [place] [address]Eagyvqtde (Bld) [#/Vol]176.0 E9/UUitszs638.0-500.0A[facility] Medical CenterComment on above:Order Comment: if not completed in last 30 days Performed By: #### [id number] #### [facility] [address] [place] [address]TDM (Bld) [#/Vol]3.9 E12/LLow4.3-5.9[facility] Comment on above:Order Comment: if not completed in last 30 daysPerformed By: #### [id number] #### [facility] [address] [place] [address]LUF size Nom (Bld)NORMALInvalid Interpretation CodeAdena Pike Medical CenterComment on above:Order Comment: if not completed in last 30 days Performed By: #### [id number] #### [facility] [address] [place] [address]MAX corrected for nucl RBC Auto (Bld) [#/Vol]8.6 E9/LNormal 4.0-11.0[facility] Medical CenterComment on above:Order Comment: if not completed in last 30 daysPerformed By: #### [id number] #### [facility] [address] [place], [place] [address]RPSWQMAXGCmpnexh By: SYSTEM SYSTEM on 63-15-1608Ofvlj gap [Moles/Vol]13 mmol/LNormal6 - 16 mEq/LRemisol ChemCalcium [Mass/Vol]9.1 mg/dL Normal8.9 - 11.1 mg/dLRemisol ChemChloride [Moles/Vol]107 mmol/VExkfru526 - 111 mmol/LRemisol ChemCO2 [Moles/Vol]24 mmol/BMcjcxo16 - 31 mmol/LRemisol Chem Creatinine [Mass/Vol]1.5 mg/dLHigh0.5 - 1.3 mg/dLRemisol NjbniANN07 mL/min/1.73 m2Low>=59mL/min/1.73 e0Yaakgkk ChemGlucose [Mass/Vol]118 mg/fKFrggpn02 - 199 mg/dLRemisol ChemPotassium [Moles/Vol]4.7 mmol/LNormal3.5 - 5.3 mmol/LRemisol ChemSodium [Moles/Vol]139 mmol/SEuulvt749 - 145 mmol/LRemisol ChemUrea nitrogen [Mass/Vol]37 mg/dLHigh5 - 21 mg/dLRemisol ChemUrea nitrogen/Creatinine [Mass ratio]25 mg/uoJeph29 - 20Remisol ChemHEMATOLOGYOrdered By: SYSTEM SYSTEM on 48-48-6112Qokkvrxmttn distribution width (RBC) [Ratio]15.0 %High10.9 - 14.2 % Remisol HemeHematocrit (Bld) [Volume fraction]33.7 %Low34.0 - 46.0 %Remisol Heme Hemoglobin (Bld) [Mass/Vol]11.3 g/dLLow12.0 - 16.0 gm/dLRemisol HemeMCH (RBC) [Entitic mass]29.0 ufAvxcek73.0 - 34.0 pgRemisol HemeMCHC (RBC) [Mass/Vol]33.5 g/qIFjnfcr08.4 - 36.0 gm/dLRemisol HemeMCV (RBC) [Entitic vol]86.5 qWAfowvk85.0 - 100.0 fLRemisol HemePlatelet mean volume (Bld) [Entitic vol]7.8 fLNormal6.4 - 10.8 fLRemisol HemePlatelets (Bld) [#/Vol]176.0 E9/JFxzbiu613.0 - 500.0 E9/L Remisol HemeRBC (Bld) [#/Vol]3.9 E12/LLow4.3 - 5.9 E12/LRemisol HemeRBC size Nom (Bld)NORMAL *NA* (01/21/24 8:38 AM)Invalid Interpretation CodeRemisol HemeWBC corrected for nucl RBC Auto (Bld) [#/Vol]8.6 E9/LNormal4.0 - 11.0 E9/LRemisol HemeInterdisciplinary Note - Nursingon 43-88-7417Kbvvrvzicjlsungoa Note - NursingInterdisciplinary Note - Nursing Report called to Mei RaygozaLake County Memorial Hospital - WesteGFRon 64-39-7305uKYY 33 mL/min/1.73 m2Low>=59A[facility]ike Medical CenterComment on above:Order Comment: Order added by Discern Expert.Performed By: #### [id number] #### [facility] [address], [place] [address]Ayhgcawrlv Visit Summaryon 65-80-3904Yyfzglhsme Visit Summary Ambulatory Visit Summary SWATISRIRAM PIEDAD Lainez :1935 Visit Date:01/16/2024 Ambulatory Visit Instructions These Are Your Goals B/P will be in normal range for patient Interventions: Low impact exercises: 2 arm and 2 legs exercises- 10 repetitions daily of each or walk in hallway -Progressing Low sodium diet - Progressing Medication Compliance [...] Progressing Your Care Team Attending Physician - Jonathon Espinoza MD Primary Care Physician - Deonte ROSARIO MD Referring Physician - Deonte ROSARIO MD This Is Your Medications List acetaminophen albuterol (Albuterol (Eqv-Proventil HFA) 90 mcg/inh inhalation aerosol) amlodipine (amLODIPine 5 mg Tab) aspirin (aspirin 81 mg oral tablet) atorvastatin (atorvastatin 80 mg Tab) carvedilol (carvedilol 25 mg Tab) clonidine (cloNIDine 0.1 mg tab) cycloSPORINE ophthalmic (Cequa 0.09% ophthalmic solution) docusate (docusate sodium 100 mg Cap) ferrous sulfate (ferrous sulfate 325 mg oral enteric coated tablet) ipratropium nasal (Atrovent 0.03% [place]) isosorbide mononitrate (isosorbide mononitrate 30 mg ER [...] (04/20/2018), lumbar facet medial branch block (11/24/2017), Ra diofrequency ablation of medial branch of lumbar nerve using fluoroscopic guidance (09/29/2017), Lumbar Facet Medial Branch Block (09/08/2017), Injection of facet joint using fluoroscopic guidance (06/23/2017), Angioplasty (09/09/2014), Colonoscopy (10/10/2010), Heart Cath. (05/12/1994), Angioplasty of left leg artery, Appendectomy, Bunionectomy, Carotid angiogram, Carotid endarterectomy, Cataract extraction, D&C - Dilatation and curettage, EGD, Esophagogastroduodenoscopy, kidney artery left stent placement, Removal of ovarian cyst, Stents, bilateral legs. Discharge Vitals Heart Rate (Peripheral) 77 Respiratory Rate 16 Blood Pressure 136/72 Height 157 cm Height 62 in Weight 65.7 kg Weight 144.54 lb BMI 26.65 What to do next Scheduled Follow-Up Appointments Friday 1:40 PM EST With: PAULO HINOJOSA, Deonte Turpin Where: [facility] [address], [place] [address]- Friday 1:00 PM EDT With: Where: [facility] [address] [place] [address]- Medications What How Much When Why Instructions Unchanged acetaminophen 325 Milligram By Mouth Every 6 hours as needed for as needed for pain Unchanged albuterol (Albuterol (Eqv-Proventil HFA) 90 mcg/ inh inhalation aerosol) 2 Puffs Inhalation Every 6 hours Acute URI Asthma exacerbation Unchanged amlodipine (amLODIPine 5 mg Tab) 1 Tablets By Mouth Every day Unchanged aspirin (aspirin 81 mg oral tablet) 1 Tablets By Mouth Every day Unchanged atorvastatin (atorvastatin 80 mg Tab) 1 Tablets By Mouth At bedtime Unchanged carvedilol (carvedilol 25 mg Tab) 1 Tablets By Mouth 2 times a day Unchanged clonidine (cloNIDine 0.1 mg tab) 0.1 Milligram By Mouth 2 times a day Unchanged cycloSPORINE ophthalmic (Cequa 0.09% ophthalmic solution) Both eyes Every 12 hours Unchanged docusate (docusate sodium 100 mg Cap) 1 Capsules By Mouth 2 times a day as needed for forconstipation Unchanged ferrous sulfate (ferrous sulfate 325 mg oral enteric coated tablet) 1 Tablets By Mouth Every day Anemia Unchanged ipratropium nasal (Atrovent 0.03% [place]) 2 Sprays Nasal Inhalation 3 times a day as needed for Other (see comment) Vasomotor rhinitis Unchanged isosorbide mononitrate (isosorbide mononitrate 30 mg ER Tab) 0.5 Tablets By Mouth 2 timesa day Unchanged nitroglycerin (nitroglycerin 0.4 mg sublingual Tab) 1 Tablets Sublingual (more content not included)...[facility] CenterHeart and Vascular Office/Clinic Noteon 66-25-0927Dhwrs and Vascular Office/Clinic NoteHeart and Vascular Office/Clinic Note Chief Complaint f/u CAD History of Present Illness Piedad is a pleasant 88-year-old female who is a former patient of Dr. Hassan. Patient was originally referred to us on 10/31/2020 for the management of hypertension. [facility] with cardiac arrest requiring CPR [...] to the emergency room on 11/26/2020 at [facility] for chest pain and abnormal troponins. She was treated medically and sent home. She did have issues with angioedema while on lisinopril therapy. She was seen by Mamie Mtz last time approximately a year and a half ago. Apparently, the stress test was ordered, however, this did not seem to happen. She presents today with complaints of chest discomfort associated with shortness of breath, perceived as tightness, clearly provoked by minimal exercise and relieved by rest, for approximately 2 to 3weeks. She denies syncope, presyncope, dizziness or lightheadedness, palpitations, PND orthopnea, lower extremity swelling Review of Systems ROS - Provider Constitutional: no fever, no chills, no fatigue Skin:no rash, no lesions ENMT: no ear pain, no sore throat, no congestion. Respiratory: no shortness of breath, no cough, no wheezing. Cardiovascular: no chest pain, no palpitations, no edema. Gastrointestinal: no nausea, no vomiting, no diarrhea, no GI bleeding. Genitourinary: no dysuria, no frequencyno hematuria Musculoskeletal: no back pain, no trauma. Neurologic: no headache, no dizziness, no numbness, no weakness. Psychiatric: no sleeping problems, no irritability, no mood swings/depression. Heme/Lymph: no bleeding tendency, no bruising tendency, no petechiae, Allergy/Immuno logic: no seasonal allergies, no food allergies, no recurrent infections Physical Exam Vitals & Measurements HR: 77(Peripheral) RR: 16 BP: 136/72 SpO2: 93% HT: 62 in HT: 157 cm WT: 65.7 kg WT: 144.54 lb BMI: 26.65 General: alert, no acute distress Neck: Supple, noJVD nocarotid bruit Cardiovascular: regular rate and rhythm, no murmur normal peripheral perfusion Respiratory: Lungs CTAB, respirations non labored Extremities: no edema left lower extremity. no edema right lower extremity Neurological: oriented x 4, LOC appropriate for age, speech normal Skin: Warm, dry, intact- no rash or concerning lesions Procedure SUMMARY/CONCLUSION: 1. Normal left ventricular size and function with mild concentric left ventricular hypertrophy. Theleft ventricular ejection fraction is 65%. 2. Stage 1 diastolic dysfunction. 3. Moderate tricuspid regurgitation with at least mild pulmonary hypertension with a right ventricular systolic pressure of 39 mmHg. 4. In comparison to echocardiogram dated 12/06/2009, no appreciable change is noted. [1] Assessment/Plan The patient is an 88-year-old female with known coronary artery disease, who presents with unstableangina. At this juncture, recommendations are for invasive assessment with a left heart catheterization. Risks and benefits of the procedure, with risks including but not limited to, myocardial infarction, stroke, , emergent transfer to higher level facility for possible coronary artery bypass grafting surgery, radiation exposure, kidney failure, blood vessel injury, prolonged hospitalization were explained to the patient in detail, the patient agreed to proceed. Compliance with dual antiplatelet therapy, if necessary, was stressed with the patient, who verbalized understanding. Further management will be determined at the cardiac catheterization, based on anatomy and physiology. Follow-up No qualifying data available At angiogram Problem List/Past Medical History Ongoing Anemia Anxiety disorder Asthma Asthma exacerbation Benign hypertension with chronic kidney disease, stage III BMI 26.0-26.9,adult CAD (coronary artery disease) Carotid artery stenosis Change in bowel habits Chronic kidney disease (CKD), stage III (moderate) COPD type B Dysphagia Edema Elevated alkaline phosphatase level Eye pain Female stress incontinence History of colon polyps History of CVA in adulthood HTN - Hypertension Hyperglycemia Hyperlipidemia Insomnia Intertrigo Knee pain, right Large hiatal hernia Leg weakness Leukocytosis Lumbar radiculopathy Neck pain Over weight Seborrheic keratoses Shoulder pain Vasomotor rhinitis Historical Acid reflux Appendectomy blood clots BMI 25.0-25.9,adult Cardiac arrest COPD Glaucoma H/O: TIA HEMATURIA [place] - myocardial infarction Stage 3 chronic kidney disease STEMI - ST elevation myocardial infarction Stroke Procedure (more content not included)...[facility] Medical CenterComment on above:Result Comment: Electronically Signed By: Olga HINOJOSA, Jonathon Quintana.michael\Date and Time Signed: 01/16/24 10:59 EDTAmbulatory Visit Summaryon [id number] Visit SummaryAmbulatory Visit Summary PIEDAD ALATORRE :1935 Visit Date:12/31/2023 Ambulatory Visit Instructions Your Diagnosis HTN - Hypertension Chronic kidney disease (CKD), stage III (moderate) COPD type B CAD (coronary artery disease) Hyperlipidemia Hyperglycemia History of CVA in adulthood Anemia Asthma BMI 26.0-26.9,adult Over weight These Are Your Goals B/P will be in normal range for patient Interventions: Low impact exercises: 2 arm and 2 legs exercises- 10 repetitions daily of each or walk in hallway -Progressing Low sodium diet - Progressing Medication Compliance [...] prescribing physician if questions or concerns acetaminophen albuterol (Albuterol (Eqv-Proventil HFA) 90 mcg/inh inhalation aerosol) albuterol (albuterol 0.083% Inh Melba 3 mL) amlodipine (amLODIPine 5 mg Tab) aspirin (aspirin 81 mg oral tablet) atorvastatin (atorvastatin 80 mg Tab) carvedilol (carvedilol 25 mg Tab) clonidine (cloNIDine 0.1 mg tab) cycloSPORINE ophthalmic (Cequa 0.09% ophthalmic solution) docusate (docusate sodium 100 mg Cap) ferrous sulfate (ferrous sulfate 325 mg oral enteric coated tablet) ipratropium nasal (Atrovent 0.03% [place]) isosorbide mononitrate (isosorbide mononitrate 30 mg ER [...] (04/20/2018), lumbar facet medial branch block (11/24/2017), Ra diofrequency ablation of medial branch of lumbar nerve using fluoroscopic guidance (09/29/2017), Lumbar Facet Medial Branch Block (09/08/2017), Injection of facet joint using fluoroscopic guidance (06/23/2017), Angioplasty (09/09/2014), Colonoscopy (10/10/2010), Heart Cath. (05/12/1994), Angioplasty of left leg artery, Appendectomy, Bunionectomy, Carotid angiogram, Carotid endarterectomy, Cataract extraction, D&C - Dilatation and curettage, EGD, Esophagogastroduodenoscopy, kidney artery left stent placement, Removal of ovarian cyst, Stents, bilateral legs. Discharge Vitals Temperature (Oral) 36.5 ?C Heart Rate (Peripheral) 64 Blood Pressure 130/64 Height 157 cm Height 62 in Weight 65.2 kg Weight 143.44 lb BMI 26.45 What to do next Scheduled Follow-Up Appointments Friday 1:00 PM EDT Where: [facility] [address] [employer] [place] [address]- You Need to Schedule the Following Appointments Follow Up with PAULO HINOJOSA, ROCKY Diaz When: In 3 months Where: [facility] [address] [employer] [place] [address]- Medications What How Much When Why Instructions Unchanged acetaminophen 325 Milligram By Mouth Every 6 hours as needed for as needed for pain Contact prescribing physician if questions or concerns Unchanged albuterol (Albuterol (Eqv-Proventil HFA) 90 mcg/ inh inhalation aerosol) 2 Puffs Inhalation Every 6 hours Acute URI Asthma exacerbation Contact prescribing physician if questions or concerns Unchanged albuterol (albuterol 0.083% Inh Melba 3 mL) 3 Milliliter Inhalation Every 6 hours as neededfor for wheezing Acute URI Asthma exacerbation Duration: 30 Days Contact prescribing physician if questions or concerns Unchanged amlodipine (amLODIPine 5 mg Tab) 1 Tablets By Mouth Every day Contact prescribing physician if questions or concerns Unchanged aspirin (aspirin 81 mg oral tablet) 1 Tablets By Mouth Every day Contact prescribing physician if questions or concerns Unchanged atorvastatin (atorvastatin 80 mg Tab) 1 Tablets By Mouth At bedtime Contact prescribing physician if questions or co (more content not included)... [facility] Medicine Office/Clinic Noteon 12-31-2023 Family Medicine Office/Clinic NoteFami Medicine Office/Clinic Note Chief Complaint pt here for 3 month. HPI Staff Medicare wellness: utd Last routine labs: 06/25/23- orders in smoker status: never Dexa: Due History of Present Illness Here for med follow up. She lives in assisted living in [place]. She did not get her labs done. She has htn and CAD. She denies CP. She has asthma and is at her baseline. She denies need for inhaler. Review of Systems PHQ Score Initial Depression Screen Score: 0 SCORE Physical Exam Vitals & Measurements T: 36.5 ?C(Oral) HR: 64(Peripheral) BP: 130/64 SpO2: 97% HT: 62 in HT: 157 cm WT: 65.2 kg WT: 143.44 lb BMI: 26.45 General: Well developed, well nourished, in no acute distress Eyes: Pupils equal, round, and reactive to light. Conjunctivae and sclerae normal, and extraocular movements intact Ears: grossly normal hearing Nose: No deformity, discharge, inflammation, or lesions Mouth: MMM. Oropharynx and posterior pharynx without lesions or exudates. Tongue WNL Neck: _supple, no bruit Lungs: Clear but diminished breath sounds Cardio: _RRR Abdomen: Soft, non-distended, non-tender Musculoskeletal: No joint swelling or synovitis noted , ambulates with walker Extremity: No clubbing, cyanosis or edema. Neurologic: _no focal deficits noted. Skin: No rashes, ulcerations, or suspicious lesions Mental Status: Alert and oriented x3. Normal mood and affect Assessment/Plan 1. HTN - Hypertension (I10: Essential (primary) hypertension) stay on amlodipine, carvedilol, spironolactone, clonidine 2. Chronic kidney disease (CKD), stage III (moderate) (N18.30: Chronic kidney disease, stage 3 unspecified) She did not have labs done I sent a note to [facility] to bring her for labs to 3. COPD type B (J44.9: Chronic obstructive pulmonary disease, unspecified) stay on albuterol prn 4. CAD (coronary artery disease) (I25.10: Atherosclerotic heart disease of the [place] coronary artery without angina pectoris) stay on isosorbide She does not want to go back to cardiology but she needs to so will refer again Ordered: [facility] [place] Referral 5. Hyperlipidemia (E78.2: Mixed hyperlipidemia) stay on atorvastatin get labs done 6. Hyperglycemia (R73.9: Hyperglycemia, unspecified) 7. History of CVA in adulthood (Z86.73: Personal history of transient ischemic attack (TIA), and cerebral infarction without residual deficits) 8. Anemia (D64.9: Anemia, unspecified) get labs done 9. Asthma (J45.909: Unspecified asthma, uncomplicated) 10. BMI 26.0-26.9,adult (Z68.26: Body mass index [BMI] 26.0-26.9, adult) The standard range for ages 18 and older is >=18.5 and < 25 kg/m2. Your BMI today was above this range, this falls in the overweight to obese category and there are medical benefits to weight loss. We can offer counselling, referral, and/or medical support in addressing this problem. Your BMIand weight management will be followed at subsequent visits. 11. Over weight (E66.3: Overweight) Follow-up With When Contact Information PAULO HINOJOSA, ROCKY Diaz In 3 months [facility] [address], [place] [address]- Additional Instructions: Patient Education DASH Eating Plan Problem List/Past Medical History Ongoing Anemia Anxiety disorder Asthma Asthma exacerbation Benign hypertension with chronic kidney disease, stage III BMI 26.0-26.9,adult CAD (coronary artery disease) Carotid artery stenosis Change in bowel habits Chronic kidney disease (CKD), stage III (moderate) COPD type B Dysphagia Edema Elevated alkaline phosphatase level Eye pain Female stress incontinence History of colon polyps History of CVA in adulthood HTN - Hypertension Hyperglycemia Hyperlipidemia Insomnia Intertrigo Knee pain, right Large hiatal hernia Leg weakness Leukocytosis Lumbar radiculopathy Neck pain Over weight Seborrheic keratoses Shoulder pain Vasomotor rhinitis Historical Acid reflux Appendectomy blood clots BMI 25.0-25.9,adult Cardiac arrest COPD Glaucoma H/O: TIA HEMATURIA [place] - myocardial infarction Stage 3 chronic kidney disease STEMI - ST elevation myocardial infarction Stroke Procedure/Surgical History Colonoscopy (03/18/2022), Colonoscopy (03/18/2022), Radiofrequency ablation of medial branch of cervical nerve using fluoroscopic guidance (08/24/2018), cervical facet Medial Branch Block (05/25/2018), Cervical Facet Medial Branch Block (04/20/2018), lumbar facet medial branch block (11/24/2017), Ra diofrequency ablation of medial branch of lumbar nerve using fluoroscopic guidance (09/29/2017), Lumbar Facet Medial Branch Block (09/08/2017), Injection of facet joint using fluoroscopic guidance (06/23/2017), Angioplasty (09/09/2014), Colonoscopy (10/10/2010), Heart Cath. (05/12/1994), Angioplasty of left leg artery, Appendectomy, Bunionectomy, Carotid angiogram, Carotid endarterectomy, Cataract extractio (more content not included)...[facility] CenterComment on above:Result Comment: Electronically Signed By: PAULO HINOJOSA, Deonte García\Date and Time Signed: 12/31/23 14:31 EDTNursing Home Recordson [id number] Home Records [id number] County Memorial Hospital - WestNursing Home Recordson [id number] Home Records [id number] Pike Medical CenterAmbulatory Visit Summaryon [id number] Visit Summary PIEDAD ALATORRE :1935 Visit Date:09/23/2023 Ambulatory Visit Instructions Your Diagnosis Benign hypertension with chronic kidney disease, stage III COPD type B CAD (coronary artery disease) Chronic kidney disease (CKD), stage III (moderate) HTN - Hypertension History of CVA in adulthood Hyperlipidemia Hyperglycemia Anemia Neck pain These Are Your Goals B/P will be in normal range for patient Interventions: Low impact exercises: 2 arm and 2 legs exercises- 10 repetitions daily of each or walk in hallway -Progressing Low sodium diet - Progressing Medication Compliance [...] prescribing physician if questions or concerns acetaminophen albuterol (Albuterol (Eqv-Proventil HFA) 90 mcg/inh inhalation aerosol) albuterol (albuterol 0.083% Inh Melba 3 mL) amlodipine (amLODIPine 5 mg Tab) aspirin (aspirin 81 mg oral tablet) atorvastatin (atorvastatin 80 mg Tab) carvedilol (carvedilol 25 mg Tab) clonidine (cloNIDine 0.1 mg tab) cycloSPORINE ophthalmic (Cequa 0.09% ophthalmic solution) docusate (docusate sodium 100 mg Cap) ferrous sulfate (ferrous sulfate 325 mg oral enteric coated tablet) ipratropium nasal (Atrovent 0.03% [place]) isosorbide mononitrate (isosorbide mononitrate 30 mg ER [...] (04/20/2018), lumbar facet medial branch block (11/24/2017), Ra diofrequency ablation of medial branch of lumbar nerve using fluoroscopic guidance (09/29/2017), Lumbar Facet Medial Branch Block (09/08/2017), Injection of facet joint using fluoroscopic guidance (06/23/2017), Angioplasty (09/09/2014), Colonoscopy (10/10/2010), Heart Cath. (05/12/1994), Angioplasty of left leg artery, Appendectomy, Bunionectomy, Carotid angiogram, Carotid endarterectomy, Cataract extraction, D&C - Dilatation and curettage, EGD, Esophagogastroduodenoscopy, kidney artery left stent placement, Removal of ovarian cyst, Stents, bilateral legs. Discharge Vitals Temperature (Oral) 36.6 ?C Heart Rate (Peripheral) 84 Blood Pressure 132/70 Height 62 in Height 157 cm Weight 131.12 lb Weight 59.6 kg BMI 24.18 What to do next Scheduled Follow-Up Appointments Friday 1:00 PM EDT Where: [facility] Primary CareNormalChronic kidney disease (CKD), stage III (moderate), Not Required, Print Label By Order Location\.br\ HgbA1c, Blood, Routine collect, 09/23/23, Order for future visit, Lab Collect, Hyperglycemia, Required & Missing, Print Label By Order Location\.br\ Lipid Panel, Blood, Routine collect, 09/23/23, Order for future visit, Lab Collect, CAD (coronary artery disease), Not Required, Print Label By Order Location\.br\ Medications\.br\ What How Much When Why Instructions\.br\ Unchanged [id number] Milligram By Mouth Every 6 hours as needed for as needed for pain Contact prescribing physicianif questions or concerns \.br\ Unchanged albuterol (Albuterol (Eqv-Proventil HFA) 90 mcg/ inh inhalation aerosol) 2 Puffs Inhalation Every 6 hours Acute URI Asthma exacerbation Contact prescribing jeffy castro if questions or concerns \.br\ Unchanged albuterol (albuterol 0.083% Inh Melba 3 mL) 3 Milliliter Inhalation Every 6 hours as needed for for wheezing Acute URI Asthma exacerbation Duration: 30 Days Contact prescribing physician if questions or concerns \.br\ Unchanged amlodipine (amLODIPine 5 mg Tab) 1 Tablets By Mouth Every day Contact prescribing physician if questions or concerns \.br\ Unchanged aspirin (aspirin 81 mg oral tablet) 1 Tablets By Mouth Every day Contact prescribing physician if questions or concerns \.br\ Unchanged atorvastatin (atorvastatin 80 mg Tab) 1 Tablets By MouthAt bedtime Contact prescribing physician if questions or concerns \.br\ Unchanged carvedilol (carvedilol 25 mg Tab) 1 Tablets By Mouth 2 times a day Contact prescribing physician if questions or concerns \.br\ Unchanged clonidine (cloNIDine 0.1 mg tab) 0.1 Milligram By Mouth 2 times a day Contact prescribing physician if questions or concerns \.br\ Unchanged cycloSPORINE ophthalmic (Cequa 0.09% op hthalmic solution) Both eyes Every 12 hours Contact [...] concerns \.br\ Unchanged ipratropium nasal (Atrovent 0.03% [place]) 2 Sprays Nasal Inhalation 3 times a [...] polyethylene glycol 3350 (MiraLax) 17 Gram By MouthEvery day Contact prescribing physician if questions or [...] receiving treatment for.\.br\ Anemia\.br\ Anxiety disorder\.br\ Asthma\.br\ Asthma exacerbation\.br\ Benign hypertension with chronic kidney disease, stage III\.br\ CAD (coronary artery disease)\.br\ Carotid artery stenosis\.br\ Change inbowel habits\.br\ Chronic kidney disease (CKD), stage III (moderate)\.br\ COPD type B\.br\ Dysphagia\.br\ Edema\.br\ Elevated alkaline phosphatase level\.br\ Eye pain\.br\ Female stress incontinence\.br\ History of colon polyps\.br\ History of CVA in adulthood\.br\ HTN - Hypertension\.br\ Hyperglycemia\.br\ Hyperlipidemia\.br\ Insomnia\.br\ Intertrigo\.br\ Knee pain, right\.br\ Large hiatal hernia\.br\ Leg weakness\.br\ Leukocytosis\.br\ Lumbar radiculopathy\.br\ Neck pain\.br\ Seborrheic keratoses\.br\ Shoulder pain\.br\ Vasomotor rhinitis\.br\ Historical - Any problem that you are no longerreceiving treatment for.\.br\ Acid reflux\.br\ Appendectomy\.br\ blood clots\.br\ BMI 25.0-25.9,adult\.br\ Cardiac arrest\.br\ COPD\.br\ Glaucoma\.br\ H/O: TIA\.br\ HEMATURIA\.br\ [place] - myocardial infarction\.br\ Stage 3 chronic kidney disease\.br\ STEMI - ST elevation myocardial infarction\.br\ Stroke\.br\ Patient Survey\.br\ You may receive a survey via text or e-mail asking about your office visit. Please share your experience with us by completing your survey. We appreciate your feedback andthank you for choosing us for your care.\.br\ Education Materials\.br\ Carotid Artery Disease\.br\ \.br\ Carotid artery disease, also called carotid artery stenosis, is the narrowing or blockage of one or both carotid arteries. The carotid arteries are the two main blood vessels on either side of the neck. They supply blood to the brain, other parts of the head, and the neck.\.br\ Carotid artery disease increases your risk for a stroke or a transient ischemic attack (TIA). A TIA is a mini-stroke that causes stroke-like symptoms that then go away quickly.\.br\ What are the caus es?\.br\ This condition is mainly caused by a narrowing and hardening of the carotid arteries (atherosclerosis). The carotid arteries can become narrow or clogged with a buildup of fat, cholesterol, calcium, and other substances (plaque).\.br\ What increases the risk?\.br\ The following factors maymake you more likely to develop this condition:\.br\ ? \.br\ Having certain medical conditions, such as:\.br\ ? \.br\ High cholesterol.\.br\ ? \.br\ High blood pressure (hypertension).\.br\ ? \.br\ Diabetes.\.br\ ? \.br\ Obesity.\.br\ ? \.br\ Smoking.\.br\ ? \.br\ A family history of cardiovasculardisease.\.br\ ? \.br\ Inactivity or lack of regular exercise.\.br\ ? \.br\ Being male. Men have an increased risk of developing atherosclerosis earlier in life than women.\.br\ ? \.br\ Old age.\.br\ What are the signs or symptoms?\.br\ This condition may not have any signs or symptoms until a stroke or TIA occurs. In some cases, your health care provider may be able to hear a whooshing sound (bruit). This can indicate a change in blood flow caused by plaque buildup. An eye exam can also help identify signs of the condition.\.br\ How is this diagnosed?\.br\ This condition may be diagnosed witha physical exam, your medical history, and your family's medical history. You may also have tests that look at the blood flow in your carotid arteries, such as:\.br\ ? \.br\ Carotid artery ultrasound, which uses sound waves to create pictures to show if the [facility] Family Medicine Office/Clinic Noteon [id number] Medicine Office/Clinic NoteChief Complaint Patient here for 3 month f/u on htn, chol. Discrepancy with Isosorbide 1/2 or 1 tab bid & Trazodone 1/2 or 1 tab qhs? History of Present Illness Here for med follow up. she feels ok but is having neck and arm pain. She did PT in the past and it helped so would like todo it again. She has htn and CAD. She denies CP. She has COPD and is on albuterol nebs. She has high chol and is on a statin. Review of Systems PHQ Score Initial Depression Screen Score: 0 SCORE Physical Exam Vitals & Measurements T: 36.6 ?C(Oral) HR: 84(Peripheral) BP: 132/70 SpO2: 93% HT: 62 in HT: 157 cm WT: 59.6 kg WT: 131.12 lb BMI: 24.18 General: Well developed, well nourished, in no acute distress Eyes: Pupils equal, round, and reactive to light. Conjunctivae and sclerae normal, and extraocular movements intact Ears: not assessed Nose: No deformity, discharge, inflammation, or lesions Mouth: MMM. Oropharynx and posterior pharynx without lesions or exudates. Tongue WNL Neck: _supple, no bruit Lungs: Clear but diminished breath sounds Cardio: Regular rate and rhythm, normal S1 and S2, no murmur, no rub Abdomen: Soft, non-distended, non-tender Musculoskeletal: _ambulates with walker Extremity: No clubbing, cyanosis or edema. Neurologic: Grossly normal Skin: No rashes, ulcerations, or suspicious lesions Mental Status: Alert. Normal mood and affect Assessment/Plan 1. Benign hypertension with chronic kidney disease, stage III (I12.9: Hypertensive chronic kidney disease with stage 1 through stage 4 chronic kidney disease, or unspecified chronic kidney disease) stay on amlodipine, carvedilol, spironolactone Ordered: CBC w/ Auto Diff Comprehensive Metabolic Panel 2. 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 CAD (coronary artery disease) (I25.10: Atherosclerotic heart disease of the [place] coronary artery without angina pectoris) stable follow up with cardiology Ordered: Lipid Panel 4. Chronic kidney disease (CKD), stage III (moderate) (N18.30: Chronic kidney disease, stage 3 unspecified) lab ordered Ordered: Comprehensive Metabolic Panel 5. HTN - Hypertension (I10: Essential (primary) hypertension) see above htn meds 6. History of CVA in adulthood (Z86.73: Personal history of transient ischemic attack (TIA), and cerebral infarction without residual deficits) 7. Hyperlipidemia (E78.2: Mixed hyperlipidemia) stay on atorvastatin 8. Hyperglycemia (R73.9: Hyperglycemia, unspecified) keep on diet Ordered: HgbA1c 9. Anemia (D64.9: Anemia, unspecified) last lab at [facility] was ok 10. Neck pain (M54.2: Cervicalgia) will do PT Follow-up With When Contact Information PAULO HINOJOSA, ROCKY Diaz In 3 months [facility] [address], [place] [address]- Additional Instructions: Patient Education Carotid Artery Disease Problem List/Past Medical History Ongoing Anemia Anxiety disorder Asthma Asthma exacerbation Benign hypertension with chronic kidney disease, stage [...] Cardiac arrest COPD Glaucoma H/O: TIA HEMATURIA [place] - myocardial infarction Stage 3 chronic kidney disease STEMI - ST elevation myocardial infarction Stroke Procedure/Surgical History Colonoscopy (03/18/2022), Colonoscopy (03/18/2022), Radiofrequency ablation of medial branch of cervical nerve using fluoroscopic guidance (08/24/2018), cervical facet Medial Branch Block (05/25/2018), Cervical Facet Medial Branch Block (04/20/2018), lumbar facet medial branch block (11/24/2017), Ra diofrequency ablation of medial branch of lumbar nerve using fluoroscopic guidance (09/29/2017), Lumbar Facet Medial Branch Block (09/08/2017), Injection of facet joint using fluoroscopic guidance (06/23/2017), Angioplasty (09/09/2014), Colonoscopy (10/10/2010), Heart Cath. (05/12/1994), Angioplasty of left leg artery, Appendectomy, Bunionectomy, Carotid angiogram, Carotid endarterectomy, Cataract extraction, D&C - Dilatation and curettage, EGD, Esophagogastroduodenoscopy, kidney artery left stent placement, Removal of ovarian cyst, Stents, bilateral legs. Medications acetaminophen, 325 mg, Oral, q6hr, PRN Albuterol (Eqv-Proventil HFA) 90 mcg/inh inhalation aerosol, 2 puff(s), Inhalation, q6hr albuterol 0.083% Inh Melba 3 mL, 2.5 mg= 3 mL, Inh (more content not included)... [facility] CenterComment on above:Result Comment: Electronically Signed By: PAULO HINOJOSA, Deonte Wilkinson.michael\Date and Time Signed: 09/23/23 15:46 EDTPatient Educationon [id number] EducationNeurology Carotid Artery Disease Carotid artery disease, also called carotid artery stenosis, is the narrowing or blockage of one orboth carotid arteries. The carotid arteries are the two main blood vessels on either side of the neck. They supply blood to the brain, other parts of the head, and the neck. Carotid artery disease increases your risk for a stroke or a transient ischemic attack (TIA). A TIAis a mini-stroke that causes stroke-like symptoms that [...] stroke or TIA occurs. In some cases, yourhealth care provider may be able to hear [...] fats and includes plenty of fresh fruits, vegetables,and lean meats. ? Avoid foods that are high in fat and salt (sodium). ? Avoid foods that are fried, overly processed, or have poor nutritional value. Lifestyle ? Maintain a healthy weight. ? Do exercises as told by your health care provider to stay physically active. It is recommended that each week you get at least 150 minutes of moderate- intensity exercise or 75 minutes of exercise that [...] stress management tips. General instructions ? Take hnrl-twh-udladwy and prescription medicines only as told by your health care provider. ? Keep all follow-up visits as told by your health care provider. This is important. Where to find more information ? [place] [employer]: www.heart.org Get help right away if: ? You have any symptoms of a stroke. BE FAST is an easy way to remember the main warning signs ofa stroke: ? B - Balance. Signs are dizziness, sudden trouble walking, or loss of balance. ? E - Eyes. Signs are trouble seeing or a sudden change in vision. ? F - Face. Signs are sudden weakness or numbness of the face, or (more content not included)...[facility] Medical CenterNursing Home Recordson [id number] Home [id number]#1.00TIFF [facility] CenterRetail - Clinical Noteon [id number] - Clinical [id number]#1.00TIFFAdena Regional Medical CenterPre-Certification Formon [id number]-Certification Form [id number] Clinic Akron General Lodi HospitalAmbulatory Visit Summaryon [id number] Visit Summary PIEDAD ALATORRE :1935 Visit Date:09/03/2023 Ambulatory Visit Instructions Your Diagnosis Acute URI Asthma exacerbation These Are Your Goals B/P will be in normal range for patient Interventions: Low impact exercises: 2 arm and 2 legs exercises- 10 repetitions daily of each or walk in hallway -Progressing Low sodium diet - Progressing Medication Compliance [...] Turpin This Is Your Medications List acetaminophen albuterol (Albuterol (Eqv-Proventil HFA) 90 mcg/inh inhalation aerosol) albuterol (albuterol 0.083% Inh Melba 3 mL) amlodipine (amLODIPine 5 mg Tab) aspirin (aspirin 81 mg oral tablet) atorvastatin (atorvastatin 80 mg Tab) carvedilol (carvedilol 25 mg Tab) clonidine (cloNIDine 0.1 mg tab) cycloSPORINE ophthalmic (Cequa 0.09% ophthalmic solution) docusate (docusate sodium 100 mg Cap) doxycycline (doxycycline hyclate 100 mg Cap) ferrous sulfate (ferrous sulfate 325 mg oral enteric coated tablet) ipratropium nasal (Atrovent 0.03% [place]) isosorbide mononitrate (isosorbide mononitrate 30 mg ER [...] (04/20/2018), lumbar facet medial branch block (11/24/2017), Ra diofrequency ablation of medial branch of lumbar nerve using fluoroscopic guidance (09/29/2017), Lumbar Facet Medial Branch Block (09/08/2017), Injection of facet joint using fluoroscopic guidance (06/23/2017), Angioplasty (09/09/2014), Colonoscopy (10/10/2010), Heart Cath. (05/12/1994), Angioplasty of left leg artery, Appendectomy, Bunionectomy, Carotid angiogram, Carotid endarterectomy, Cataract extraction, D&C - Dilatation and curettage, EGD, Esophagogastroduodenoscopy, kidney artery left stent placement, Removal of ovarian cyst, Stents, bilateral legs. Discharge Vitals Temperature (Oral) 37.3 ?C Heart Rate (Peripheral) 81 Blood Pressure 134/80 Height 157.5 cm Height 62 in Weight 60.7 kg Weight 133.54 lb BMI 24.47 What to do next Scheduled Follow-Up Appointments Friday. 2023 3:00 PM EDT With: PAULO HINOJOSA, Deonet Turpin Where: [facility] [address], [place] [address]- \.br\ You Need to Schedule the Following Appointments\.br\ Follow Up with Elvi Millan When: Only if needed\.br\ Where:\.br\[address], [address]\.br\ [place] [address]-\.br\ \.br\ Medications\.br\ What How Much When Why Instructions\.br\ New albuterol (Albuterol (Eqv-Proventil HFA) 90 mcg/ inh inhalation aerosol) 2 Puffs Inhalation Every 6 hours Acute URI Asthma exacerbation Pickup at [facility]\.br\ New albuterol (albuterol 0.083% Inh Melba 3 mL) 3 Milliliter Inhalation Every 6 hours as needed for for wheezing Acute URI Asthma exacerbation Duration: 30 Days Refills: 3 Pickup at [facility]\.br\ New doxycycline (doxycycline hyclate 100 mg Cap) 1 Capsules By Mouth 2 times a day Acute URI Duration: 10 Days Pickup at [facility]\.br\ Unchanged acetaminophen 325 MilligramBy Mouth Every 6 hours as needed for [...] day Anemia\.br\ Unchanged ipratropium nasal (Atrovent 0.03% [place]) 2 Sprays Nasal Inhalation 3 times a day as needed for Other (see comment) Vasomotor rhinitis\.br\ Unchanged isosorbide mononitrate (isosorbide mononitrate 30 mg ER Tab) 1 Tablets By Mouth 2 times a day\.br\ Unchanged nitroglycerin (nitroglycerin0.4 mg sublingual Tab) 1 Tablets Sublingual Every [...] Insomnia\.br\ Pharmacy Information\.br\ [facility]: [address] [place], [place] [phone]\.br\ Allergies\.br\ lisinopril (Angioedema)\.br\ Latex (Rash)\.br\ Skelaxin (SOB - Shortness of breath)\.br\ penicillin (Rash, SOB - Shortness of breath)\.br\ shellfish\.br\ Problems\.br\ Ongoing - Any problem that you are currently receiving treatment for.\.br\ Acute URI\.br\ Anemia\.br\ Anxiety disorder\.br\ Asthma\.br\ Asthma exacerbation\.br\ Benign hypertension with chronic kidney disease, stage III\.br\ CAD (coronary artery disease)\.br\ Carotid artery stenosis\.br\ Change in bowel habits\.br\ Chronic kidney disease (CKD), stage III (moderate)\.br\ COPD type B\.br\ Dysphagia\.br\ Edema\.br\ Elevated alkaline phosphatase level\.br\ Eye pain\.br\ Female stress incontinence\.br\ History of colon polyps\.br\ History of CVA in adulthood\.br\ HTN - Hypertension\.br\ Hyperglycemia\.br\ Hyperlipidemia\.br\ Insomnia\.br\ Intertrigo\.br\ Knee pain, right\.br\ Large hiatal hernia\.br\ Leg weakness\.br\ Leukocytosis\.br\ Lumbar radiculopathy\.br\ Neck pain\.br\Seborrheic keratoses\.br\ Shoulder pain\.br\ Vasomotor rhinitis\.br\ Historical - Any problem that you are no longer receiving treatment for.\.br\ Acid reflux\.br\ Appendectomy\.br\ blood clots\.br\ BMI 25.0-25.9,adult\.br\ Cardiac arrest\.br\ COPD\.br\ Glaucoma\.br\ H/O: TIA\.br\ HEMATURIA\.br\ [place]- myocardial infarction\.br\ Stage 3 chronic kidney disease\.br\ STEMI - ST elevation myocardial infarction\.br\ Stroke\.br\ Patient Survey\.br\ You may receive a survey via text or e-mail asking about your office visit. Please share your experience with us by completing your survey. We appreciate your feedback and thank you for choosing us for your care.\.br\ Education Materials\.br\ Upper Respiratory Infection, Adult\.br\ An upper respiratory infection (URI) affects the nose, throat, and upper airways that lead to the lungs. The most common type of URI is often called the common cold. URIs usually get better on their own, without medical treatment.\.br\ What are the causes?\.br\ A URI is caused by a germ (virus). You may catch these germs by:\.br\ ? \.br\ Breathing in droplets from an infected person's cough or sneeze.\.br\ ? \.br\ Touching something that has the germ on it (is contaminated) and then touching your mouth, nose, or eyes.\.br\ What increases the risk?\.br\ You are morelikely to get a URI if:\.br\ ? \.br\ You are very young or very old.\.br\ ? \.br\ You have close con tact with others, such as at work, school, or a health care facility.\.br\ ? \.br\ You smoke.\.br\ ? \.br\ You have long-term (chronic) heart or lung disease.\.br\ ? \.br\ You have a weakened disease-fighting system (immune system).\.br\ ? \.br\ You have nasal allergies or asthma.\.br\ ? \.br\ You have a lot of stress.\.br\ ? \.br\ You have poor nutrition.\.br\ What are the signs or symptoms?\.br\ ? \.br\ Runny or stuffy (congested) nose.\.br\ ? \.br\ Cough.\.br\ ? \.br\ Sneezing.\.br\ ? \.br\ Sore throat.\.br\ ? \.br\ Headache.\.br\ ? \.br\ Feeling tired (fatigue).\.br\ ? \.br\ Fever.\.br\ ?\.br\ Not wanting to eat as much as usual.\.br\ ? \.br\ Pain in your forehead, behind your eyes, and over your cheekbones (sinus pain).\.br\ ? \.br\ Muscle aches.\.br\ ? \.br\ Redness or irritation of the eyes.\.br\ ? \.br\ Pressure in the ears or face.\.br\ How is this treated?\.br\ URIs usually get better on their own within 7?10 days. Medicines cannot cure URIs, but your doctor may recommend certain medicines to help relieve symptoms, such as:\.br\ ? \.br\ Rmha-qop-lcmxpal cold medicines.\.br\ ? \.br\ Medicines to reduce coughing (cough suppressants). Coughing is a type of defense against infection that helps to clear the nose, throat, windpipe, and lungs (respiratory system). Take these medicines only as told by your doctor.\.br\ ? \.br\ Medicines to lower your fever.\.br\ Follow these instructions at home:\.br\ Activity\.br\ ? \.br\ Rest as needed.\.br\ ? \.br\ If you have a fever,stay home from work or school until your fever is gone, or until your doctor says you may return towork or school.\.br\ ? \.br\ You should stay home until you cannot spread the infection anymore (you are not contagious).\.br\ ? \.br\ Your doctor may have you wear a face mask so you have less risk of spreading the infection.\.br\ Relieving symptoms\.br\ ? \.br\ Rinse your mouth often with salt water. To make salt water, dissolve ??1 tsp (3?6 g) of salt in 1 cup (237 mL) of warm water.\.[facility] CenterFanew [facility] Medicine Office/Clinic Noteon [phone] Medicine Office/Clinic NoteChief Complaint pt here for 14 day TCM f/u. having trouble breathing, wheezing. does not feel good at all HPI Staff Medicare wellness: utd Last routine labs: 06/25/23 smoker status: never DEXA (F>65, M>70): due History of Present Illness Piedad is a 87 yo female presenting today for hospital f/u PCP is Dr. Rosario Pt was seen at [facility] from 08/26/23-08/27/23 d/t SOB, URI PMH includes asthma, COPD, CKD, CAD, TABBY, HTN, HLD CXR was unremarkable on 08/26/23. Labs stable and pt treated with IFB, solu- medrol, breathing tx. Pt requested CT chest - which was wnl except mod-large hiatal hernia with entire stomach noted in thorax Pt was discharged on albuterol inhaler, prednisone taper x 12 days, pulmicort inhaler but reports only picking up the prednisone and not using any inhalers. Paperwork from [facility] pt continues with audible wheezes and SOB despite SpO2 being WNL. Pt denies CP, palpitations but does reports ongoing cough and SOB. Review of Systems PHQ Score Initial Depression Screen Score: 0 SCORE Physical Exam Vitals & Measurements T: 37.3 ?C(Oral) HR: 81(Peripheral) BP: 134/80 SpO2: 93% HT: 62 in HT: 157.5 cm WT: 60.7 kg WT: 133.54 lb BMI: 24.47 General: Well developed, well nourished, in no [...] Mouth: mucous membranes pink, moist and intact. [place] posterior oropharynx, no palatal inflammation,uvula midline, no cobble-stoning, no enlarged tonsils, no tonsillar exudate, no ulcers, no active post nasal drip. tongue midline and wnl. Good dentition. Neck: Neck supple. No lymphadenopathy. Trachea midline. No thyroid, masses, tenderness, or enlargement noted. No bruit. Lungs: bilateral lower lobe wheezes on inhale and exhale Cardio: Regular rate and rhythm, normal S1 and S2, no murmur, no rub Abdomen: not assessed Musculoskeletal: No deformity or scoliosis noted. No vertebral tenderness. Normal range of motion. No vertebral point tenderness. Joints normal. No erythema, edema, effusion, crepitus, or ecchymosis.Straight leg raise negative Extremity: No clubbing, cyanosis, edema, or deformity. Normal ROM with upper and lower extremities,bilaterally. Neurologic: Cranial nerves II-XII grossly intact. motor strength equal & normal bilaterally, sensation equal & normal bilaterally. Gait normal. Skin: No rashes, ulcerations, or suspicious lesions Mental Status: Alert and oriented x3. Normal mood and affect Assessment/Plan 1. Acute URI (J06.9: Acute upper respiratory infection, unspecified) CXR and chest CT WNL at ED no improvement with zpak and prednisone - will do course of doxycycline 100mg BID x 10 days - take with probiotic and with food in stomach Use albuterol via nebulizer q6hr PRN O2 in office 93% today Discussed red flags/when to report to ED - pt verbalized understanding Ordered: albuterol, = 2 puff(s), Inhalation, q6hr, # 18 gm, Refills(s) 0, Pharmacy: [facility], 157.5, cm, 09/03/23 9:45:00 EDT, Height/Length Dosing, 60.7, kg, 09/03/23 9:45:00 EDT, Weight Dosing albuterol, 2.5 mg, 3 mL, Inhalation, q6hr for wheezing for 30 day(s), 1 EA, Refill(s) 3, [facility], 157.5, cm, 09/03/23 9:45:00 EDT, Height/Length Dosing, 60.7, kg, 09/03/23 9:45:00 EDT, Weight Dosing doxycycline, 100 mg = 1 cap(s), Oral, BID, X 10 day(s), # 20 cap(s), Refills(s) 0, Pharmacy: [facility], 157.5, cm, 09/03/23 9:45:00 EDT, Height/Length Dosing, 60.7, kg, 09/03/23 9:45:00 EDT, Weight Dosing Discharge medications reconciled with current medications in outpatient record [id number] [facility] 14 day disch [id number] 2. Asthma exacerbation (J45.901: Unspecified asthma with (acute) exacerbation) d/t URI Discussed healthy home practices including but not limited to: avoidance of tobacco smoke/secondhand smoke, 50% humidity in home is ideal moisture level, avoid mold (exhaust fans in bathrooms, pipes,potted plants, wet towels, etc.), pest control, dust control, noxious gas detectors in home, wash laundry routinely and keep washer door open when not using to keep dry, upgrade filters with HVAC, consider carpet removal or vacuum regularly, frequent duct cleaning, pet-proof home, avoid pollen, avoid perfumes/fragrances/smoke. Discussed proper inhaler use technique and use of chamber if warranted. Discussed use of ALEXANDRU only as needed and at the first onset of symptoms. Discussed adverse effects of ICS's and LAMA's if appropriate. Reviewed asthma action plan. Ensured proper technique and use of spacer/inhaler. Counseled patient regarding asthma action plan, red flags and when to seek emergency (more content not included)...[facility] CenterComment on above:Result Comment: Electronically Signed By: Radu FLORES, Elvi Vergara\.br\Date and Time Signed: 09/03/23 10:07 EDTRetail - Clinical Noteon [id number] - Clinical Note [id number] Pike Medical CenterPatient Educationon [id number] EducationImmunology Asthma Action Plan, Adult An asthma action plan helps you understand how to manage your asthma and what to do when you have an asthma attack. The action plan is a color-coded plan that lists the symptoms that indicate whetheror not your condition is under control and [...] or rescue medicine more than 2?3 times aweek. Yellow zone Symptoms in this zone mean [...] for Disease Control and Prevention: www.cdc.gov ? [place] [employer]: www.lung.org This information is not intended to replace advice given to you by your health care provider. Make sure you discuss any questions you have with your health care provider. Document Revised: 06/21/2021 Document Reviewed: 06/21/2021 Elsevier Patient Education ? 2022 [employer] Infectious Disease Upper Respiratory Infection, Adult [...] sneeze. ? Touching somethi (more content not included)...[facility] Medical CenterCHEMISTRYOrdered By: SYSTEM SYSTEM on 32-64-6157Opwka gap [Moles/Vol]14 mmol/LNormal6 - 16 mEq/LRemisol ChemCalcium [Mass/Vol]10.0 mg/dLNormal8.9 - 11.1 mg/dLRemisol ChemChloride [Moles/Vol]107 mmol/DBitrkt079 - 111 mmol/LRemisol ChemCO2 [Moles/Vol]24 mmol/ZOilbff01 - 31 mmol/LRemisol ChemCreatinine [Mass/Vol]1.4 mg/dLHigh0.5 - 1.3 mg/dLRemisol ItqxaKQE70 mL/min/1.73 m2Low >=59mL/min/1.73 e4Vzknbta ChemGlucose [Mass/Vol]126 mg/qYAufojo12 - 199 mg/dL Remisol ChemPotassium [Moles/Vol]3.8 mmol/LNormal3.5 - 5.3 mmol/LRemisol Chem Sodium [Moles/Vol]141 mmol/VGzenyn771 - 145 mmol/LRemisol ChemUrea nitrogen [Mass/Vol]21 mg/dLNormal5 - 21 mg/dLRemisol ChemUrea nitrogen/Creatinine [Mass ratio]15 mg/yxOwsufm29 - 20Remisol ChemCHEMISTRYOrdered By: Patricia Strong on 48-43-4907CTBae/dLNormal<=1.9mg/dLRemisol ChemHEMATOLOGYOrdered By: VIEO SYSTEM on 47-19-8294Vcselsan Absolute0.1 E9/LNormal0.0 - 0.2 E9/LRemisol Heme Basophils/100 WBC (Bld)0.9 %Normal0.0 - 2.0 %Remisol HemeEos Absolute0.2 E9/L Normal0.0 - 0.5 E9/LRemisol HemeEosinophils/100 WBC (Bld)1.9 %Normal0.0 - 8.0 % Remisol HemeErythrocyte distribution width (RBC) [Ratio]16.8 %High10.9 - 14.2 % Remisol HemeHematocrit (Bld) [Volume fraction]40.0 %Xvvawz27.0 - 46.0 %Remisol HemeHemoglobin (Bld) [Mass/Vol]12.5 g/tJXisfnp79.0 - 16.0 gm/dLRemisol HemeLymph Absolute1.3 E9/LNormal1.0 - 4.0 E9/LRemisol HemeLymphocytes/100 WBC (Bld)12.9 % Low14.0 - 50.0 %Remisol HemeMCH (RBC) [Entitic mass]26.4 pgLow27.0 - 34.0 pg Remisol HemeMCHC (RBC) [Mass/Vol]31.7 g/rALdvdyy00.4 - 36.0 gm/dLRemisol HemeMCV (RBC) [Entitic vol]83.3 jGQikewu30.0 - 100.0 fLRemisol HemeMono Absolute0.6 E9/LNormal0.2 - 1.0 E9/LRemisol HemeMonocytes/100 WBC (Bld)6.4 %Normal4.0 - 14.0 %Remisol HemeNeutro Absolute7.8 E9/LHigh2.0 - 7.5 E9/LRemisol HemeNeutro Auto 77.9 %High36.0 - 75.0 %Remisol MvvvRbbfaxhf733.0 E9/NNhsooj946.0 - 500.0 E9/L Remisol HemePlatelet mean volume (Bld) [Entitic vol]7.5 fLNormal6.4 - 10.8 fL Remisol HemeRBC4.8 E12/LNormal4.3 - 5.9 E12/LRemisol OujqEJP25.0 E9/LNormal4.0 - 11.0 E9/LRemisol HemeHEMATOLOGYOrdered By: Juana Lynn on 11-87-0790MHH (Bld) [Velocity]16 mm/hNormal0 - 34 mm/[facility] HemeAutoSSCBC AUTO DIFFon 08-66-7669GGLX #0.1 103/ulNormal0.0-0.1[facility] HospitalComment on above: Performed By: #### CBC #### [facility] [address] [address] [address] Carla LittleBasophils/100 WBC (Bld)0.9 %Normal0.2-2.0[facility] Comment on above:Performed By: #### CBC #### [facility] [address] [address] [address] Carla Hernandez #0.4 103/ulNormal0.0-0.7The [facility] HospitalComment on above: Performed By: #### CBC #### [facility] [address] [address] [address] Carla Rossosinophils/100 WBC (Bld)5.0 %Normal0.9-7.0The [facility] Comment on above:Performed By: #### CBC #### [facility] [address] [address] [address] Carla Rossrythrocyte distribution width (RBC) [Ratio]14.1 %Qehvqb30.0-15.0 [facility] HospitalComment on above:Performed By: #### CBC #### [facility] [address] [place] [address] Dr. Carla LittleHematocrit (Bld) [Volume fraction]34.5 %Critically low36.0-48.0 The [facility] HospitalComment on above:Performed By: #### CBC #### [facility] [address] [place] [address] Dr. Carla LittleHemoglobin (Bld) [Mass/Vol]10.6 g/dLCritically low12.0-16.0The [facility] HospitalComment on above:Performed By: #### CBC #### [facility] [address] [place] [address] Dr. Carla LittleIG #0.03 10e3/ulNormal0.00-0.03The [facility] HospitalComment on above:Performed By: #### CBC #### [facility] [address] [place] [address] Dr. Carla Eric %0.4 %Normal0.0-0.5The [facility] HospitalComment on above: Performed By: #### CBC #### [facility] [address] [place] [address] Dr. Carla Nunn #1.5 103/ulNormal1.2-3.8The [facility] HospitalComment on above:Performed By: #### CBC #### [facility] [address] [place] [address] Dr. Carla Gutierrezhocytes/100 WBC (Bld)20.9 %Ckupfm21.5-60.0[facility] HospitalComment on above:Performed By: #### CBC #### [facility] [address] [place] [address] Dr. Carla HarrellUAL DIFF REQNONormalThe [facility] HospitalComment on above: Performed By: #### CBC #### [facility] [address] [place] [address] Dr. Carla Valentin (RBC) [Entitic mass]28.7 caBjwfll45.7-34.0The [facility] HospitalComment on above:Performed By: #### CBC #### [facility] [address] [place] [address] Dr. Carla Espinal (RBC) [Mass/Vol]30.7 g/eKOuhzxy75.9-35.2The [facility] HospitalComment on above:Performed By: #### CBC #### [facility] [address] [place] [address] Dr. Carla Malagon (RBC) [Entitic vol]93.5 tNTfajyc22.0-99.0The [facility] HospitalComment on above:Performed By: #### CBC #### [facility] [address] [place] [address] Dr. Carla Collier #0.6 103/ulNormal0.3-0.8The [facility] HospitalComment on above:Performed By: #### CBC #### [facility] [address] [place] [address] Dr. Carla Ninoocytes/100 WBC (Bld)9.1 %Normal1.7-12.0The [facility] Comment on above:Performed By: #### CBC #### [facility] [address] [place] [address] Dr. Carla Gonsalves #4.5 103/ulNormal1.4-6.5The [facility] HospitalComment on above:Performed By: #### CBC #### [facility] [address] [place] [address] Dr. Carla Domingoutrophils/100 WBC (Bld)63.7 %Bcnwjm72.0-75.0The [facility] HospitalComment on above:Performed By: #### CBC #### [facility] [address] [place] [address] Dr. Carla Duganlet mean volume (Bld) [Entitic vol]9.8 fLNormal9.5-13.5The [facility] HospitalComment on above:Performed By: #### CBC #### [facility] [address] [place] [address] Dr. Carla LittlePLT222 103/wkXejyhy353-858Pyp [facility] Hospitalment on above: Performed By: #### CBC #### [facility] [address] [address] [address] Carla LittleRBC3.69 106/ulCritically low4.20-5.40The [facility] HospitalComment on above:Performed By: #### CBC #### [facility] [address] [address] [address] Carla LittleWBC7.0 103/ulNormal4.0-11.0The [facility] HospitalComment on above: Performed By: #### CBC #### [facility] [address] [address] [address] Carla OwensID PROFILEon 88-01-0450VZCZ-HDL RATIO NORMSEE [facility] HospitalComtrinity [facility] on above:Result Comment: 3.3 - 4.4 LOW RISK 4.4 - 7.1 AVERAGE RISK 7.1 - 11.0 MODERATE RISK >11.0 HIGH RISKPerformed By: #### LIPID, CMP #### [facility] [address] [place] [address] Dr. Carla Sesayesterol [Mass/Vol]124 mg/dLNormal<=200The [facility] Comment on above:Performed By: #### LIPID, CMP #### [facility] [address] [address] [address] Carla LittleCholesterol in HDL [Mass/Vol]47 mg/xIWqevav15-32Aah [facility] on above:Performed By: #### LIPID, CMP #### [facility] [address] [address] [address] Carla LittleCholesterol in LDL [Mass/Vol]61.0 mg/dLMercy Health St. Elizabeth [facility] HospitalComtrinity health [facility] hospital on above:Performed By: #### LIPID, CMP #### [facility] [address] [address] [address] Carla Sesayesterelizabeth.total/Cholesterol in HDL [Mass ratio]2.6 {ratio} NormalMagruder Memorial Hospitalment on above:Performed By: #### LIPID, CMP #### [facility] [address] [address] [address] Carla Torres NORMAL> or = 60 mg/dl - LOW CARDIOVASCULAR RISK <40 mg/dl - HIGH CARDIOVASCULAR RISKMercy Health St. [facility] HospitalComment on above:Performed By: #### LIPID, CMP #### [facility] [address] [place] [address] Dr. Carla LittleLDL CALC NORMALSEE BELOWMercy Health St. Elizabeth [facility] HospitalComment on above:Result Comment: <100 mg/dl OPTIMAL 100 - 129 mg/dl NEAR OR ABOVE OPTIMAL 130 - 159 mg/dl BORDERLINE HIGH 160 - 189 mg/dl HIGH >190 mg/dl VERY HIGH Performed By: #### LIPID, CMP #### [facility] [address] [place] [address] Dr. Carla LittleTriglyceride [Mass/Vol]80 mg/dLNormal<=150The [facility] Comment on above:Performed By: #### LIPID, CMP #### [facility] [address] [place] [address] Dr. Carla GeorgeLDL CALC16.0 mg/dLNoMercy Health – The Jewish HospitalComtrinity health [facility] hospital on above: Performed By: #### LIPID, CMP #### [facility] [address] [place] [address] Dr. Carla LittlePROF 14(COMP METB)on 98-11-8497Ogcorsf [Mass/Vol]3.4 g/dLNormal 3.4-5.0[facility] on above:Performed By: #### LIPID, CMP #### [facility] [address] [place] [address] Dr. Carla LittleAlbumin/Globulin [Mass ratio]1.2 {ratio}NormalThe [facility] HospitalComment on above:Performed By: #### LIPID, CMP #### [facility] [address] [place] [address] Dr. Carla IyerP [Catalytic activity/Vol]137 U/LCritically afep31-042Hqa Jackie HospitalComment on above:Performed By: #### LIPID, CMP #### [facility] [address] [address] [address] Carla IyerT [Catalytic activity/Vol]20 U/IHqrjmc88-92Noj [facility] HospitalComment on above:Performed By: #### LIPID, CMP #### [facility] [address] [address] [address] Carla Salason gap [Moles/Vol]14.2 mmol/LNormalThe [facility] Comment on above:Performed By: #### LIPID, CMP #### [facility] [address] [address] [address] Carla LittleAST [Catalytic activity/Vol]14 U/LCritically gsl09-77Sxx [facility] HospitalComment on above:Performed By: #### LIPID, CMP #### [facility] [address] [place] [address] Dr. Carla LittleBilirubin [Mass/Vol]0.3 mg/dLNormal0.2-1.0[facility] Comment on above:Performed By: #### LIPID, CMP #### [facility] [address] [place] [address] Dr. Carla LittleCalcium [Mass/Vol]8.8 mg/dLNormal8.5-10.1The [facility] Comment on above:Performed By: #### LIPID, CMP #### [facility] [address] [place] [address] Dr. Carla LittleChloride [Moles/Vol]108 mmol/LCritically ieto28-530Rkh [facility] HospitalComment on above:Performed By: #### LIPID, CMP #### [facility] [address] [address] [address] Carla LittleCO2 [Moles/Vol]27.1 mmol/GOhigai34.0-32.0The [facility] Comment on above:Performed By: #### LIPID, CMP #### [facility] [address] [address] [address] Carla LittleCreatinine [Mass/Vol]1.57 mg/dLCritically high0.55-1.02The [facility] HospitalComment on above:Performed By: #### LIPID, CMP #### [facility] [address] [address] [address] Carla RossGFR-AF HGVAUAGG81 mL/min/1.76f3Jruwnzeowv low>=60The [facility] HospitalComment on above:Performed By: #### LIPID, CMP #### [facility] [address] [address] [address] Carla RossGFR-NON AF GBSILSCS29 mL/min/1.70k1Uzghysummd low>=60The [facility] HospitalComment on above:Performed By: #### LIPID, CMP #### [facility] [address] [place] [address] Dr. Carla LittleGlobulin (S) [Mass/Vol]2.8 g/dLNormalThCleveland Clinic Akron GeneralComment on above:Performed By: #### LIPID, CMP #### [facility] [address] [place] [address] Dr. Carla LittleGlucose [Mass/Vol]108 mg/dLCritically pfym75-121MpyCleveland Clinic Avon HospitalComment on above:Performed By: #### LIPID, CMP #### [facility] [address] [place] [address] Dr. Carla LittlePotassium [Moles/Vol]4.3 mmol/LNormal3.5-5.1[facility] Comment on above:Performed By: #### LIPID, CMP #### [facility] [address] [place] [address] Dr. Carla LittleProtein [Mass/Vol]6.2 g/dLCritically low6.4-8.2The [facility] HospitalComment on above:Performed By: #### LIPID, CMP #### [facility] [address] [place] [address] Dr. Carla LittleSodium [Moles/Vol]145 mmol/UZibeqf553-323Qnj [facility] Comment on above:Performed By: #### LIPID, CMP #### [facility] [address] [place] [address] Dr. Yilan ChangUrea nitrogen [Mass/Vol]27.0 mg/dLCritically high7.0-18.0[facility] HospitalComment on above:Performed By: #### LIPID, CMP #### [facility] [address] [place] [address] Dr. Carla Ugalde nitrogen/Creatinine [Mass ratio]17.2 mg/mgNoMercy Health – The Jewish HospitalComment on above:Performed By: #### LIPID, CMP #### [facility] [address] [place] [address] Dr. Carla KOO PLASMAon 51-79-1078GWP and Rh group Nom (Bld)Unit Blood Type O Pos Unit Number [id number] Status Information Transfused Product ID FFP Product Code [id number] Unit Blood Type O Pos Unit Number [id number] Status Information Transfused Product ID FFP Product Code [id number] Health – The Jewish HospitalComment on above:Performed By: #### FFP #### [facility] [address] [place] [address] Dr. Carla Castroc Metab w/rfx MGon 66-23-1128Vgpvw gap [Moles/Vol]10 mmol/L Normal9-17[facility] HospitalComment on above:Performed By: #### MRSANO #### [place] [address] Bird Raiser: KELLY Ortegahloride [Moles/Vol]105 mmol/QVxukkp54-717FqldxCleveland Clinic Medina HospitalComment on above:Performed By: #### MRSANO #### [employer] [address] [place] [address] [phone] Bird Raiser: KELLY OrtegaO2 [Moles/Vol]23 mmol/ZTmjkqi84-52WhrhoCleveland Clinic Medina HospitalComment on above:Performed By: #### MRSANO #### [facility] JacksonCoinBatch [address] [place] [address] [phone] Bird Raiser: KELLY Ortegareatinine [Mass/Vol]1.38 mg/dLHigh0.50-0.90 [facility] HospitalComment on above:Performed By: #### MRSANO #### [place] [address] Bird Raiser: Sidney Epps MDGFR/1.73 sq M.predicted among non-blacks MDRD (S/P/Bld) [Vol rate/Area]38 mL/min/{1.73_m2}Low>60[facility] HospitalComment on above:Result Comment: These results are not intended for [...] or following therapy that affects renal tubular secretion.Performed By: #### MRSANO #### [place] [address] Bird Raiser: Sidney Epps MDGlucose [Mass/Vol]96 mg/dFEkhogj13-55UryzpLakewood Regional Medical CenterComment on above:Performed By: #### MRSANO #### [place] [address] Bird Raiser: Sidney Epps MDPotassium [Moles/Vol]4.6 mmol/LNormal3.7-5.3 [facility] HospitalComment on above:Performed By: #### MRSANO #### [place] [address] Bird Raiser: Sidney Epps MDSodium [Moles/Vol]138 mmol/GNskwba480-213MtafdCleveland Clinic Medina HospitalComment on above:Performed By: #### MRSANO #### [place] [address] Bird Raiser: Sidney Epps MDUrea nitrogen [Mass/Vol]33 mg/dLHigh8-23[facility] HospitalComment on above:Performed By: #### MRSANO #### [employer] [facility] [address] [place], [place] [phone] Bird Raiser: KELLY Ortegaalcium [Mass/Vol]8.8 mg/dLNormal8.6-10.4BON Sportsgrit [facility] - TRUMBULLComment on above:Performed By: #### MRSANO #### [employer] [facility] [address] [place], [place] [phone] Bird Raiser: Sidney Epps MDGaylord Hospital Metabolic Panel w/ Reflex to MGon 88-72-0623Ulwnn gap [Moles/Vol]10 mmol/L9 - 17 mmol/LBON [facility] GameTubeMARIETTA OSTEOP[facility]IC [facility]IC Chloride [Moles/Vol]105 mmol/L98 - 107 mmol/LBON [facility] - GILBERTMira Designs [facility] - TRUMBULLCO2 [Moles/Vol]23 mmol/L20 - 31 mmol/LBON [facility] LV Sensors [facility] TRUMBULLCreatinine [Mass/Vol] 1.38 mg/dLHigh0.50 - 0.90 mg/dLBON [facility] - GILBERTMira Designs [facility] - TRUMBULLGFR/1.73 sq M.predicted MDRD (S/P/Bld) [Vol rate/Area]38 mL/min/{1.73_m2}Low- PINFBON [facility] - GILBERTMira Designs [facility] TRUMBULLComment on above: These results are not intended [...] therapy that affects renal tubular secretion. Glucose [Mass/Vol]96 mg/dL70 - 99 mg/dLBON Eso TechnologiesInterpretation and review of laboratory resultsAbnormalBON SECMira Designs [facility] TRUMBULLPotassium [Moles/Vol]4.6 mmol/L3.7 - 5.3 mmol/LBON SECMira Designs [facility] TRUMBULLSodium [Moles/Vol] 138 mmol/L135 - 144 mmol/LBON SECMira Designs HEALTHUrea nitrogen [Mass/Vol]33 mg/dLHigh8 - 23 mg/dLBON SECDigital Intelligence SystemsBON [facility]UCYRUS HOSPITALCBC with Auto Differentialon [id number] Eos #BON [facility]UCYRUS HOSPITALAbsolute Immature Granulocyte0.24BON [facility]UCYRUS HOSPITALAbsolute Lymph #0.71LowCARILION ROANOKE MEMORIAL HOSPITALAbsolute Saluda #1.15BON [facility]UCYRUS HOSPITALBasophils AbsoluteBON [facility]UCYRUS HOSPITALBasophils/100 WBC (Bld)0 %0 - 2 %[facility] RO[facility]IAL HOSPITALEosinophils/100 WBC (Bld)0 %Low1 - 4 %[facility] Hematocrit (Bld) [Volume fraction]32.7 %Low36.3 - 47.1 %[facility] Hemoglobin (Bld) [Mass/Vol]10.8 g/dLLow11.9 - 15.1 g/dLBON [facility] Immature granulocytes/100 WBC (Bld)2 %Jgyr4JGDCARILION ROANOKE MEMORIAL HOSPITAL Interpretation and review of laboratory resultsAbnormalBON [facility] Lymphocytes/100 WBC (Bld)5 %Low24 - 43 %[facility] CENTERH (RBC) [Entitic mass]30.0 pg25.2 - 33.5 pgHEALTHSOUTH MEDICAL CENTERHC (RBC) [Mass/Vol] 33.0 g/dL28.4 - 34.8 g/dLBON MIDDLETOWN HOSPITALV (RBC) [Entitic vol]90.8 fL 82.6 - 102.9 fLCARILION ROANOKE MEMORIAL HOSPITALMonocytes/100 WBC (Bld)7 %3 - 12 %[facility]ORIAL HOSPITALNRBC Automated0.00.0 per 100 WBCCARILION ROANOKE MEMORIAL HOSPITAL Platelet distribution width (Bld) [Ratio]14.4 %11.8 - 14.4 %[facility] MEMORIAL HOSPITALPlatelet mean volume (Bld) [Entitic vol]10.3 fL8.1 - 13.5 fLCARILION ROANOKE MEMORIAL HOSPITALPlatelets (Bld) [#/Vol]218 10*3/uLBON [facility] BUCYRUS HOSPITALRBC (Bld) [#/Vol]3.60 10*6/uLLow3.95 - 5.11 m/uLBON [facility] SYSTEM BUCYRUS HOSPITALSegmented neutrophils/100 WBC (Bld)87 %High36 - 65 %BON [facility] SYSTEM BUCYRUS HOSPITALSegs Absolute 13.71HighBON [facility]ALTH SYSTEM BUCYRUS HOSPITALWBC (Bld) [#/Vol]15.8 10*3/uLHighBON [facility] BUCYRUS HOSPITALBON [facility] BUC[facility]US HOSPITALCBC with Diffon 12-95-6600Sxd. Basophil<0.03 Normal0.00-0.20[facility] HospitalComment on above:Performed By: #### MRSANO #### [facility] [employer] [address] [place] [address] Bird Raiser: Imelda Ortega. Eosinophil<0.01Recued1.00-0.44[facility] HospitalComment on above:Performed By: #### MRSANO #### [facility] [employer] [address] [place] [address] Bird Raiser: MDAbs. ShannonImm.Granulocyte0.24 k/uLNormal0.00-0.30[facility] HospitalComment on above:Performed By: #### MRSANO #### [facility] [employer] [address] [place] [address] Bird Raiser: MDAbs. ShannonNeutrophil (Seg)13.71 k/uLHigh1.50-8.10[facility] HospitalComment on above:Performed By: #### MRSANO #### [facility] [employer] [address] [place] [address] Bird Raiser: Sidney Epps MDBasophils/100 WBC (Bld)0 %Normal0-2[facility] HospitalComment on above:Performed By: #### MRSANO #### [facility] [employer] [address] [place] [address] Bird Raiser: Sidney Epps MDEosinophils/100 WBC (Bld)0 %Low1-4[facility] HospitalComment on above:Performed By: #### MRSANO #### [address] [address] Bird Raiser: Sidney Epps MDErythrocyte distribution width (RBC) [Ratio]14.4 %Swrhyi17.8-14.4[facility] HospitalComment on above:Performed By: #### MRSANO #### [address] [address] Bird Raiser: Sidney Epps MDHematocrit (Bld) [Volume fraction]32.7 %Low 36.3-47.1MLakewood Regional Medical CenterComment on above:Performed By: #### MRSANO #### [address] [address] Bird Raiser: Sidney Epps MDHemoglobin (Bld) [Mass/Vol]10.8 g/dLLow11.9-15.1 [facility] HospitalComment on above:Performed By: #### MRSANO #### [address] [address] Bird Raiser: Sidney Epps MDImmature granulocytes/100 WBC (Bld)2 %Cioj5RlmzwCleveland Clinic Medina HospitalComment on above:Performed By: #### MRSANO #### [address] [address] Bird Raiser: Sidney Epps MDLymphocytes (Bld) [#/Vol]0.71 10*3/uLLow 1.10-3.70[facility] HospitalComment on above:Performed By: #### MRSANO #### [address] [address] Bird Raiser: Alecia Ortegamphocytes/100 WBC (Bld)5 %Exk30-55VzksoCleveland Clinic Medina HospitalComment on above:Performed By: #### MRSANO #### [address] [address] Bird Raiser: GARIMA OrtegaCH (RBC) [Entitic mass]30.0 etEmhzcs56.2-33.5 [facility] HospitalComment on above:Performed By: #### MRSANO #### [facility] [address] [place] [address] Bird Raiser: GARIMA OrtegaCHC (RBC) [Mass/Vol]33.0 g/jPCktjmc34.4-34.8 [facility] HospitalComment on above:Performed By: #### MRSANO #### [address] [address] Bird Raiser: GARIMA OrtegaCV (RBC) [Entitic vol]90.8 hYMvoysq45.6-102.9 [facility] HospitalComment on above:Performed By: #### MRSANO #### [address] [address] Bird Raiser: GARIMA Ortegaonocytes (Bld) [#/Vol]1.15 10*3/uLNormal 0.10-1.20[facility] HospitalComment on above:Performed By: #### MRSANO #### [address] [address] Bird Raiser: GARIMA Ortegaonocytes/100 WBC (Bld)7 %Normal3-12[facility] HospitalComment on above:Performed By: #### MRSANO #### [address] [address] Bird Raiser: Sidney Epps MDNeutrophil (Seg)87 %Ezow09-36WhriaCleveland Clinic Medina HospitalComment on above:Performed By: #### MRSANO #### [facility] [address] [place] [address] Bird Raiser: Sidney Epps MDNRBC Automated0.0 per 100 WBCNormal0.0[facility] HospitalComment on above:Performed By: #### MRSANO #### [place] [address] Bird Raiser: Amairani Ortegategilbert mean volume (Bld) [Entitic vol]10.3 fL Normal8.1-13.5[facility] HospitalComment on above:Performed By: #### MRSANO #### [place] [address] Bird Raiser: KATY Ortegalatelets (Bld) [#/Vol]218 10*3/xXQsosgt495-901 [facility] HospitalComment on above:Performed By: #### MRSANO #### [place] [address] Bird Raiser: Sidney Epps MDRBC (Bld) [#/Vol]3.60 10*6/uLLow3.95-5.11[facility] HospitalComment on above:Performed By: #### MRSANO #### [place] [address] Bird Raiser: Sidney Epps MDWBC (Bld) [#/Vol]15.8 10*3/uLHigh3.5-11.3MLakewood Regional Medical CenterComment on above:Performed By: #### MRSANO #### [place] [address] Bird Raiser: Sidney Epps MDBasic Metab w/rfx MGon 19-10-6522Ujlod gap [Moles/Vol]14 mmol/LNormal9-17[facility] HospitalComment on above: Performed By: #### CDP, BMPX ####[place] [phone] Director: KELLY Ortegaalcium [Mass/Vol]9.4 mg/dL Normal8.6-10.4[facility] HospitalComment on above:Performed By: #### CDP, BMPX ####[facility] [address] [place] [address] [phone] Director: KELLY Ortegahloride [Moles/Vol]104 mmol/PImerjs37-215 [facility] HospitalComment on above:Performed By: #### CDP, BMPX ####[facility] [address] [place] [address] [phone] Director: Sidney Epps MDCO2 [Moles/Vol]18 mmol/JOat07-81FowhtCleveland Clinic Medina HospitalComment on above:Performed By: #### CDP, BMPX ####[address] [address])[phone] Director: Sidney Epps MD Creatinine [Mass/Vol]1.41 mg/dLHigh0.50-0.90[facility] Comment on above:Performed By: #### ALEXANDRO, BMPX ####[address] [address])[phone] Director: Sidney Epps MDGFR/1.73 sq M.predicted among non-blacks MDRD (S/P/Bld) [Vol rate/Area]37 mL/min/{1.73_m2} Low>60[facility] HospitalComment on above:Result Comment: These results are not intended for [...] or following therapy that affects renal tubular secretion.Performed By: #### CDP, BMPX ####[facility] [address] [place] [address] Lab Director: Sidney Epps MDGlucose [Mass/Vol]122 mg/zEUaxp45-95Usjwo [facility] HospitalComment on above:Performed By: #### CDP, BMPX ####[facility] [address] [place] [address] Lab Director: KATY Ortegaotassium [Moles/Vol]4.6 mmol/LNormal3.7-5.3Muniversity hospitals geauga medical centery [facility] Community HospitalComment on above:Performed By: #### CDP, BMPX ####[facility] [address] [place], [place] [phone] Director: Sidney Epps MDSodium [Moles/Vol]136 mmol/QYqtrrt217-603LtlfwCleveland Clinic Medina HospitalComment on above:Performed By: #### CDP, BMPX ####[facility] [address] [place] [address] Lab Director: Sidney Epps MDUrea nitrogen [Mass/Vol]32 mg/dLHigh8-23[facility] HospitalComment on above:Performed By: #### CDP, BMPX ####[facility] [address] [place], [place] [address])[phone] Director: Sidney Epps MDBanicholas county hospital Metabolic Panel w/ Reflex to MGon 06-19-2022 Anion gap [Moles/Vol]14 mmol/L9 - 17 mmol/LBON SECOURS MERCY HEALTHCalcium [Mass/Vol]9.4 mg/dL8.6 - 10.4 mg/dLBON [facility] MERCY HEALTHChloride [Moles/Vol] 104 mmol/L98 - 107 mmol/LBON [facility] HEALTHCO2 [Moles/Vol]18 mmol/LLow20 - 31 mmol/LBON [facility] HEALTHCreatinine [Mass/Vol]1.41 mg/dLHigh0.50 - 0.90 mg/dLBON [facility]OURS MERCY HEALTHGFR/1.73 sq M.predicted MDRD (S/P/Bld) [Vol rate/Area]37 mL/min/{1.73_m2}Low- PINFBON SECOURS MERCY HEALTHComment on above: These results are not intended [...] therapy that affects renal tubular secretion. Glucose [Mass/Vol]122 mg/kFVazy00 - 99 mg/dLBON [facility] - GILBERTDigital Intelligence Systems Interpretation and review of laboratory resultsAbnormalBON SECOURS FORT HAMILTON HOSPITALmywaves [facility] Potassium [Moles/Vol]4.6 mmol/L3.7 - 5.3 mmol/LBON [facility] Price Ignite SystemsSodium [Moles/Vol]136 mmol/L135 - 144 mmol/LBON SECOURS Grono.netUrea nitrogen [Mass/Vol]32 mg/dLHigh8 - 23 mg/dLBON SECOURS FORT HAMILTON HOSPITALY Price Ignite SystemsBON SECJin-Magic FORT HAMILTON HOSPITALmywaves [facility] TRUMBULLCBC with Auto Differentialon [id number] Eos #0.00[facility] Price Ignite SystemsAbsolute Immature Granulocyte0.43HighBON [facility] Price Ignite SystemsAbsolute Lymph #0.65LowBON SECOURS MERCY HEALTHAbsolute Saluda #0.86B[facility] MERCMozillaBasophils (Bld) [#/Vol]0.00 10*3/uLBON [facility]OURS MERCY HEALTHBasophils/100 WBC (Bld)0 %0 - 2 %[facility] Price Ignite SystemsEosinophils/100 WBC (Bld)0 %Low1 - 4 %[facility] Price Ignite SystemsHematocrit (Bld) [Volume fraction]31.7 %Low36.3 - 47.1 %BON SEC[facility] GameTubeY Price Ignite SystemsHemoglobin (Bld) [Mass/Vol]9.5 g/dLLow11.9 - 15.1 g/dL B[facility] Grono.netImmature granulocytes/100 WBC (Bld)2 %Igsp5VLN SECOURS GameTubeY HEALTHInterpretation and review of laboratory resultsAbnormalBON SECOURS GameTubeY Price Ignite SystemsLymphocytes/100 WBC (Bld)3 %Low24 - 43 %[facility] Grono.netMCH (RBC) [Entitic mass]29.9 pg25.2 - 33.5 pgBON SECOURS MERCY HEALTHMCHC (RBC) [Mass/Vol]30.0 g/dL28.4 - 34.8 g/dLBON MIDDLETOWN HOSPITALV (RBC) [Entitic vol]99.7 fL82.6 - 102.9 fLCARILION ROANOKE MEMORIAL HOSPITALMonocytes/100 WBC (Bld)4 %3 - 12 %[facility] MEMORIAL HOSPITALMorphology Min (Bld) [Interp]ANISOCYTOSIS PRESENTCARILION ROANOKE MEMORIAL HOSPITALNRBC Automated0.00.0 per 100 WBCCARILION ROANOKE MEMORIAL HOSPITAL Platelet distribution width (Bld) [Ratio]14.6 %High11.8 - 14.4 %CAR[facility] MEMORIAL HOSPITALPlatelet mean volume (Bld) [Entitic vol]10.6 fL8.1 - 13.5 fLCARILION ROANOKE MEMORIAL HOSPITALPlatelets (Bld) [#/Vol]232 10*3/uLCARILION ROANOKE MEMORIAL HOSPITAL RBC (Bld) [#/Vol]3.18 10*6/uLLow3.95 - 5.11 m/uLCARILION ROANOKE MEMORIAL HOSPITAL Segmented neutrophils/100 WBC (Bld)91 %High36 - 65 %CARILION ROANOKE MEMORIAL HOSPITALSegs Yalzyfgb97.56HighCARILION ROANOKE MEMORIAL HOSPITALWBC (Bld) [#/Vol]21.5 10*3/uLHighBON CUSTER REGIONAL HOSPITALCBC with Diffon [id number]. Basophil0.00 k/uLNormal0.00-0.20[facility] HospitalComment on above:Performed By: #### ALEXANDRO, BMPX ####[employer] [address] [place] [address] Lab Director: Imelda Ortega.Imm.Granulocyte0.43 k/uLHigh0.00-0.30[facility] HospitalComment on above:Performed By: #### ALEXANDRO, BMPX ####[employer] [address] [place] [phone] Director: Imelda Ortega.Neutrophil (Seg)19.56 k/uLHigh1.50-8.10 [facility] HospitalComment on above:Performed By: #### CDP, BMPX ####[place], [place] [address])[phone] Director: Sidney Epps MDBasophils/100 WBC (Bld)0 %Normal0-2[facility] HospitalComment on above:Performed By: #### CDP, BMPX ####[place] [address]([facility])[phone] Director: Sidney Epps MD Eosinophils (Bld) [#/Vol]0.00 10*3/uLNormal0.00-0.44[facility] HospitalComment on above:Performed By: #### CDP, BMPX ####[place], [place] [address])[phone] Director: Sidney Epps MD Eosinophils/100 WBC (Bld)0 %Low1-4[facility] HospitalComment on above:Performed By: #### ALEXANDRO, BMPX ####[place] [address]([facility])[phone] Director: Sidney Epps MDImmature granulocytes/100 WBC (Bld)2 %Bync3LeujcCleveland Clinic [facility]ina HospitalComment on above:Performed By: #### CDP, BMPX ####[place] [address]([facility])[phone] Director: Sidney Epps MDLymphocytes (Bld) [#/Vol]0.65 10*3/uLLow 1.10-3.70[facility] HospitalComment on above:Performed By: #### CDP, BMPX ####[place] [address]([facility])[phone] Director: Sidney Epps MDLymphocytes/100 WBC (Bld)3 %Wct43-32RteaoCleveland Clinic [facility] HospitalComment on above:Performed By: #### CDP, BMPX ####[facility] [address] [place], [place] [phone] Director: GARIMA Ortegaonocytes (Bld) [#/Vol]0.86 10*3/uLNormal0.10-1.20[facility] HospitalComment on above:Performed By: #### CDP, BMPX ####[facility] [address] [place] [address] [phone] Director: GARIMA Ortegaonocytes/100 WBC (Bld)4 %Normal3-12[facility] Comment on above:Performed By: #### CDP, BMPX ####[facility] [address] [phone] Director: GARIMA Ortegaorphology Min (Bld) [Interp]ANISOCYTOSIS PRESENTNormalCleveland Clinic [facility] HospitalComment on above:Performed By: #### CDP, BMPX ####[facility] [address] [place] [address] [phone] Director: Sidney Epps MDNeutrophil (Seg) 91 %Vwtn67-18AzivoCleveland Clinic [facility] HospitalComment on above:Performed By: #### CDP, BMPX ####[facility] [address] [place] [address] [phone] Director: Sidney Epps MDErythrocyte distribution width (RBC) [Ratio]14.6 % High11.8-14.4[facility] HospitalComment on above:Performed By: #### CDP, BMPX ####[facility] [address] [place] [address] [phone] Director: Sidney Epps MDHematocrit (Bld) [Volume fraction]31.7 %Low 36.3-47.1MercJerold Phelps Community HospitalComment on above:Performed By: #### CDP, BMPX ####[facility] [address] [place] [address] [place] [address] Lab Director: Sidney Epps MDHemoglobin (Bld) [Mass/Vol]9.5 g/dLLow11.9-15.1MLakewood Regional Medical CenterComment on above:Performed By: #### CDP, BMPX ####[facility] [address] [place] [address] Lab Director: GARIMA OrtegaCH (RBC) [Entitic mass]29.9 baNjazeq14.2-33.5[facility] HospitalComment on above:Performed By: #### CDP, BMPX ####[facility] [address] [place] [address] Lab Director: GARIMA OrtegaCHC (RBC) [Mass/Vol]30.0 g/gXBcitaz94.4-34.8[facility] HospitalComment on above:Performed By: #### ALEXANDRO, BMPX ####[facility] [address] [place] [address] Lab Director: GARIMA OrtegaCV (RBC) [Entitic vol]99.7 kERurrkm18.6-102.9[facility] [place] HospitalComment on above:Performed By: #### CDP, BMPX ####[facility] [address] [place] [address] Lab Director: Sidney Epps MDNRBC Automated0.0 per 100 WBCNormal0.0[facility] HospitalComment on above:Performed By: #### CDP, BMPX ####[facility] [address] [place] [address] Lab Director: Amairani Ortegatelet mean volume (Bld) [Entitic vol]10.6 fL Normal8.1-13.5[facility] HospitalComment on above:Performed By: #### CDP, BMPX ####[facility] [address] [place], [place] [phone] Director: KATY Ortegalatelets (Bld) [#/Vol]232 10*3/uLNormal 138-453[facility] [place] HospitalComment on above:Performed By: #### CDP, BMPX ####[facility] [address] [place] [address] Lab D irector: Sidney Epps MDRBC (Bld) [#/Vol]3.18 10*6/uLLow3.95-5.11[facility] [place] HospitalComment on above:Performed By: #### ALEXANDRO, BMPX ####[facility] [address] [place] [address] Lab Director: Sidney Epps MDWBC (Bld) [#/Vol]21.5 10*3/uLHigh3.5-11.3MLakewood Regional Medical CenterComment on above:Performed By: #### CDP, BMPX ####[facility] [address] [place] [address] Lab Director: MELVI Ortega CHEST WO CONTRASTon 60-55-8895WD CHEST WO CONTRASTEXAMINATION: CT OF THE CHEST WITHOUT CONTRAST 06/19/2022 [...] smoking or known risk factors. Radiology 2017 http://pubs.rsna.org/doi/full/10.1148/radiol.7873836439 Interpreted by: Scott Sinha MD Signed by: Scott Sinha MD 06/19/22 Final resultNormalMercy [facility] Community Hospital1. No evidence of acute pneumonia. 2. The [...] smoking or known risk factors. Radiology 2017 http://pubs.rsna.org/doi/full/10.1148/radiol.4089033340 [facility] RIS CONSOLIDATEDEXAMINATION: CT OF THE CHEST WITHOUT CONTRAST 06/19/2022 [...] a bone island. No acute osseous abnormality. [facility] Scott Lynch MD - 06/19/2022 EXAMINATION: CT OF THE [...] smoking or known risk factors. Radiology 2017 http://pubs.rsna.org/doi/full/10.1148/radiol.3537069672 [employer] Phone: radiology Study observation (narrative)[employer] Phone: cT CHEST WO CONTRASTOrdered By: Scott Sinha on 20-79-1469PSL [employer] Phone: fl MODIFIED BARIUM SWALLOW W VIDEOon [id number] MODIFIED BARIUM SWALLOW W VIDEOEXAMINATION: MODIFIED BARIUM SWALLOW WAS PERFORMED IN CONJUNCTION WITH SPEECH PATHOLOGY SERVICES TECHNIQUE: Under fluoroscopic evaluation cineradiography/videoradiography recordings were performed in conjunction with the speech-language pathologist (PASTRY WRAPPER). Various liquid, solid and/or semi-solid barium preparations were used to assess swallowing function. FLUOROSCOPY DOSE AND TYPE OR TIME AND EXPOSURES: DAP 12.887FWxxz6 COMPARISON: None HISTORY: ORDERING SYSTEM PROVIDED HISTORY: [...] Signed by: Juancho Ferrara MD 06/19/22 Final resultNormalMercy Davies campuswallowing mechanism grossly within normal limits without evidence of aspiration. Please see separate speech pathology report for full discussion of findings and recommendations. [facility] CONSOLIDATEDEXAMINATION: MODIFIED BARIUM SWALLOW WAS PERFORMED IN CONJUNCTION WITH SPEECH PATHOLOGY SERVICES TECHNIQUE: Under fluoroscopic evaluation cineradiography/videoradiography recordings were performed in conjunction with the speech-language pathologist (PASTRY WRAPPER). Various liquid, solid and/or semi-solid barium preparations were used to assess swallowing function. FLUOROSCOPY DOSE AND TYPE OR TIME AND EXPOSURES: DAP 12.103UFgue8 COMPARISON: None HISTORY: ORDERING SYSTEM PROVIDED HISTORY: dysphagia and hx of esophageal dilatation TECHNOLOGIST PROVIDED HISTORY: dysphagia and hx of esophageal dilatation FINDINGS: Patient was given thick and thin barium as well as puree, soft solid and cookie consistency barium. No laryngeal penetration or aspiration. Minimal pooling in the vallecula and piriform sinuses. [facility] Juancho Bangura MD - 06/19/2022 EXAMINATION: MODIFIED BARIUM SWALLOW WAS PERFORMED IN CONJUNCTION WITH SPEECH PATHOLOGY SERVICES TECHNIQUE: Under fluoroscopic evaluation cineradiography/videoradiography recordings were performed in conjunction with the speech-language pathologist (PA[employer] WRAPPER). Various liquid, solid and/or semi-solid barium preparations were used to assess swallowing function. FLUOROSCOPY DOSE AND TYPE OR TIME AND EXPOSURES: DAP [id number] COMPARISON: None HISTORY: ORDERING SYSTEM PROVIDED HISTORY: [...] for full discussion of findings and recommendations. [facility] Phone: radiology Study observation (narrative)[facility] Phone: [place] MODIFIED BARIUM SWALLOW W VIDEOOrdered By: Juancho [place] on 30-78-8675[facility] [employer] Phone: B12/Folate Panelon 19-70-7170Tdserfqxo (Vitamin B12) [Mass/Vol]496 pg/eKAgsfrv527-5282UuigrCleveland Clinic Medina HospitalComment on above:Performed By: #### B12FOL ####[facility] Rqneqv[address] [place], [place] [address])[phone] Director: Millie Ortega Acid5.3 ng/mLNormal>4.8 [facility] Medina HospitalComment on above:Performed By: #### B12FOL ####[facility] Rajsjsdnlarc[address] [place], [place] [address])[phone] Director: Mallory Ortega Metab w/rfx MGon 56-70-1070Ahuxo gap [Moles/Vol]11 mmol/LNormal9-17[facility] Medina HospitalComment on above:Performed By: #### FERI, IPF, CDP, BMPX, FEBC ####[facility] Aisensracafo[address] [place], [place] [address])[phone] Director: KELLY Ortegaalcium [Mass/Vol]9.2 mg/dL Normal8.6-10.4[facility] Clinic Medina HospitalComment on above:Performed By: #### FERI, IPF, CDP, BMPX, FEBC ####[address] [place] [address])[phone] Director: KELLY Ortegahloride [Moles/Vol]112 mmol/L Ckkv95-218TmifsCleveland Clinic Medina HospitalComment on above:Performed By: #### FERI, IPF, CDP, BMPX, FEBC ####[facility] [address]akr[address] [place] [address] Lab Director: KELLY OrtegaO2 [Moles/Vol]20 mmol/LNormal 20-31[facility] Medina HospitalComment on above:Performed By: #### FERI, IPF, CDP, BMPX, FEBC ####[facility] R[address]ncpexql6360 [place] [address] [facility])[phone] Director: KELLY Ortegareatinine [Mass/Vol]1.51 mg/dLHigh 0.50-0.90C[facility] Clinic Medina HospitalComment on above:Performed By: #### FERCam, IPF, CDP, BMPX, FEBC ####[facility] [address] [place] [address])[phone] Director: Sidney Epps MDGFR/1.73 sq M.predicted among non-blacks MDRD (S/P/Bld) [Vol rate/Area]34 mL/min/{1.73_m2}Low>60[facility] Medina HospitalComment on above:Result Comment: These results are not intended for [...] or following therapy that affects renal tubular secretion.Performed By: #### FERI, IPF, CDP, BMPX, FEBC ####[facility] [address]qexuvvaujx5424 [place] [address] Lab Director: Sidney Epps MDGlucose [Mass/Vol]153 mg/kXYpct84-81XbmhvJerold Phelps Community HospitalComment on above:Performed By: #### FERI, IPF, CDP, BMPX, FEBC ####[facility] Tmzsenlgcrko6150 [place] [address] Lab Director: KATY Ortegaotassium [Moles/Vol]4.5 mmol/LNormal3.7-5.3Muniversity hospitals [facility] medical centery [facility] Community HospitalComment on above:Performed By: #### FERI, IPF, CDP, BMPX, FEBC ####[facility] [address]pgxyxrvfj4046 [place] [address] Lab Director: ASHLI Ortegaodium [Moles/Vol]143 mmol/VXacphf895-014SepnoCleveland Clinic Medina HospitalComment on above:Performed By: #### FERI, IPF, CDP, BMPX, FEBC ####[facility] Irthcqichkvn8847 [place] [address] Lab Director: Sidney Epps MDUrea nitrogen [Mass/Vol]27 mg/dLHigh8-23[facility] Medina HospitalComment on above:Performed By: #### FERI, IPF, CDP, BMPX, FEBC ####[facility] [address]iehqxkavz6[address] [place] [address] Lab Director: Sidney Epps MDBanicholas county hospital Metabolic Panel w/ Reflex to MGon 06-18-2022 Anion gap [Moles/Vol]11 mmol/L9 - 17 mmol/LBON SECOURS MERCY HEALTHCalcium [Mass/Vol]9.2 mg/dL8.6 - 10.4 mg/dLBON [facility]OURS MERCY HEALTHChloride [Moles/Vol] 112 mmol/LHigh98 - 107 mmol/LBON SECOURS MERCY HEALTHCO2 [Moles/Vol]20 mmol/L20 - 31 mmol/LBON [facility]RS MERCY HEALTHCreatinine [Mass/Vol]1.51 mg/dLHigh0.50 - 0.90 mg/dLBON SECOURS MERCY HEALTHGFR/1.73 sq M.predicted MDRD (S/P/Bld) [Vol rate/Area]34 mL/min/{1.73_m2}Low- PINFBON SECOURS MERCY HEALTHComment on above: These results are not intended [...] therapy that affects renal tubular secretion. Glucose [Mass/Vol]153 mg/dJChdm11 - 99 mg/dLBON [facility] Interpretation and review of laboratory resultsAbnormalBON [facility] Potassium [Moles/Vol]4.5 mmol/L3.7 - 5.3 mmol/LBON [facility] SYSTEM BUCYRUS HOSPITALSodium [Moles/Vol]143 mmol/L135 - 144 mmol/LBON [facility] SYSTEM BUCYRUS HOSPITALUrea nitrogen [Mass/Vol]27 mg/dLHigh8 - 23 mg/dLBON [facility]USTER REGIONAL HOSPITALC1 ESTERASE INHIBITOR PANELon 23-66-5811L4 Esterase Zwhdoncqs85 mg/dL21 - 38 mg/dLBON [facility]ALTH SYSTEM BUCYRUS HOSPITALComment on above:(NOTE) Performed By: [employer] [address] [place] [address] Back Order Clerk: Alessio Hung MD, PhD [facility] HOSPITALC1 Esterase Inhibon 28-74-5485I9 Esterase Inhib38 mg/dL Qqtayn30-15PfakwCleveland Clinic Medina HospitalComment on above:Result Comment: (NOTE) Performed By: [employer] [address] [place] [address] Back Order Clerk: Alessio Hung MD, PhDPerformed By: #### SED, BNP, CMPX, CRP, IPF, CDP, C4 ####[facility] [address] [place] [address] Lab Director: Sidney Epps MD#### AC1EIN ####[employer] [address] [place] [address] Lab Director: Bob Florence [facility] with Auto Differentialon 69-62-6757Jfhhifxq Eos #0.00B[facility] MERCY HEALTHAbsolute Immature Granulocyte0.47HighBON SECOURS MERCY HEALTHAbsolute Lymph #1.17[facility] HEALTHAbsolute [place] #0.93B[facility] SEC[facility] HOSPITALmywaves [facility] - TRUMBULLBasophils (Bld) [#/Vol]0.00 10*3/uLBON [facility] Basophils/100 WBC (Bld)0 %0 - 2 %[facility] HOSPITALEosinophils/100 WBC (Bld)0 %Low1 - 4 %[facility] HOSPITALHematocrit (Bld) [Volume fraction]29.1 %Low36.3 - 47.1 %[facility] HOSPITALHemoglobin (Bld) [Mass/Vol]9.4 g/dLLow 11.9 - 15.1 g/dLBON [facility] HOSPITALImmature granulocytes/100 WBC (Bld)2 % Nuvc6WZCCARILION ROANOKE MEMORIAL HOSPITALInterpretation and review of laboratory results AbnormalBON [facility]ITA HEALTH SYSTEM BUCYRUS HOSPITALLymphocytes/100 WBC (Bld)5 %Low24 - 43 %[facility]ENTERH (RBC) [Entitic mass]29.8 pg25.2 - 33.5 pgHEALTHSOUTH MEDICAL CENTERHC (RBC) [Mass/Vol]32.3 g/dL28.4 - 34.8 g/dLBON MIDDLETOWN HOSPITALV (RBC) [Entitic vol]92.4 fL82.6 - 102.9 fLCARILION ROANOKE MEMORIAL HOSPITAL Monocytes/100 WBC (Bld)4 %3 - 12 %[facility] HOSPITALMorphology Min (Bld) [Interp]ANISOCYTOSIS PRESENTCARILION ROANOKE MEMORIAL HOSPITALNRBC Automated0.00.0 per 100 WBCCARILION ROANOKE MEMORIAL HOSPITALPlatelet distribution width (Bld) [Ratio]14.6 %High 11.8 - 14.4 %[facility] HOSPITALPlatelets (Bld) [#/Vol]See Reflexed IPF ResultCARILION ROANOKE MEMORIAL HOSPITALRBC (Bld) [#/Vol]3.15 10*6/uLLow3.95 - 5.11 m/uL B[facility] BUC[facility] HOSPITALSegmented neutrophils/100 WBC (Bld)89 %High36 - 65 %[facility] HOSPITALSegs Amhpyrut95.73HighCARILION ROANOKE MEMORIAL HOSPITALWBC (Bld) [#/Vol]23.3 10*3/uLHighCH[facility] AT VCUCBC with Diffon 80-49-6135Gwf. Basophil0.00 k/uLNormal0.00-0.20[facility] Medical CenterComment on above:Performed By: #### FERI, IPF, CDP, BMPX, FEBC ####[facility] Fswhtdohfkgx7258 [place] [address] Lab Director: MDAbs. ShannonImm.Granulocyte0.47 k/uLHigh0.00-0.30[facility] Medina HospitalComment on above:Performed By: #### FERI, IPF, CDP, BMPX, FEBC ####[facility] Pzxxsjepbsay7563 [place] [address] Lab Director: Imelda Ortega.Neutrophil (Seg)20.73 k/uLHigh1.50-8.10[facility] Medina HospitalComment on above:Performed By: #### FERI, IPF, CDP, BMPX, FEBC ####[facility] [address] [place] [address])[phone] Director: Sidney Epps MDBasophils/100 WBC (Bld)0 %Normal0-2Mun[facility] hospitals [facility] medical centery [facility] Comment on above:Performed By: #### FERI, IPF, CDP, BMPX, FEBC ####[facility] [address] [place] [address] [phone] Director: Sidney Epps MDEosinophils (Bld) [#/Vol]0.00 10*3/uLNormal0.00-0.44[facility] HospitalComment on above:Performed By: #### FERI, IPF, CDP, BMPX, FEBC ####[facility] Ucfejetqlyub6080 [place], [place] [phone])[phone] Director: Sidney Epps MDEosinophils/100 WBC (Bld)0 %Low1-4[facility] HospitalComment on above:Performed By: #### FERI, IPF, CDP, BMPX, FEBC ####[facility] Gwjhpcrlxjna3197 [place], [place] [phone])[phone] Director: Sidney Epps MDImmature granulocytes/100 WBC (Bld)2 %Szoo7BnxinCleveland Clinic Medina HospitalComment on above:Performed By: #### FERI, IPF, CDP, BMPX, FEBC ####[facility] Mtnoixzstwri9830 [place], [place] [phone])[phone] Director: Sidney Epps MDLymphocytes (Bld) [#/Vol]1.17 10*3/uLNormal1.10-3.70[facility] HospitalComment on above:Performed By: #### FERI, IPF, CDP, BMPX, FEBC ####[facility] Vosvamhjvdoe0535 [place] [address] Lab Director: Sidney Epps MDLymphocytes/100 WBC (Bld)5 %Iao37-76BygepCleveland Clinic Medina HospitalComment on above:Performed By: #### FERI, IPF, CDP, BMPX, FEBC ####[facility] Muecfdxbebih5888 [place], [place] [phone] Director: GARIMA Ortegaonocytes (Bld) [#/Vol]0.93 10*3/uLNormal0.10-1.20[facility] HospitalComment on above:Performed By: #### FERI, IPF, CDP, BMPX, FEBC ####[facility] Bssafzimywjg7568 [place] [address] Lab Director: GARIMA Ortegaonocytes/100 WBC (Bld)4 %Normal3-12[facility] HospitalComment on above:Performed By: #### FERI, IPF, CDP, BMPX, FEBC ####[facility] Agtrjlhyubmc0601 [place], [place] [phone] Director: GARIMA Ortegaorphology Min (Bld) [Interp]ANISOCYTOSIS PRESENTNormalCleveland Clinic Medina HospitalComment on above:Performed By: #### FERI, IPF, CDP, BMPX, FEBC ####[facility] Xeijvwzksviy1764 [place] [address] Lab Director: Sidney Epps MDNeutrophil (Seg)89 %Bizt88-47AqucjCleveland Clinic Medina HospitalComment on above:Performed By: #### FERI, IPF, CDP, BMPX, FEBC ####[facility] Ehxaeojojgvp4972 [place] [address] Lab Director: Sidney Epps MDErythrocyte distribution width (RBC) [Ratio]14.6 %High 11.8-14.4[facility] HospitalComment on above:Performed By: #### FERI, IPF, CDP, BMPX, FEBC ####[facility] Zjcdrpxomukk4523 [place] [address] Lab Director: Sidney Epps MDHematocrit (Bld) [Volume fraction]29.1 %Low36.3-47.1MLakewood Regional Medical CenterComment on above: Performed By: #### FERI, IPF, CDP, BMPX, FEBC ####[facility] Zigmwwwxgivy4814 [place] [address] Lab Director: Sidney Epps MDHemoglobin (Bld) [Mass/Vol]9.4 g/dLLow11.9-15.1MLakewood Regional Medical CenterComment on above: Performed By: #### FERI, IPF, CDP, BMPX, FEBC ####[facility] Liibwxgsygyi2314 [place] [address] Lab Director: GARIMA OrtegaCH (RBC) [Entitic mass]29.8 xgNvsavc19.2-33.5[facility] HospitalComment on above:Performed By: #### FERI, IPF, CDP, BMPX, FEBC ####[facility] Tattakpfgiww2736 [place] [address] Lab Director: Sidney Madoff, MDMCHC (RBC) [Mass/Vol]32.3 g/rYRcuyph94.4-34.8[facility] HospitalComment on above:Performed By: #### FERI, IPF, CDP, BMPX, FEBC ####[facility] Bsyjjstflbmm3741 [place], [place] [phone] Director: Sidney Epps MDMCV (RBC) [Entitic vol]92.4 iLSimwgg31.6-102.9[facility] HospitalComment on above:Performed By: #### FERI, IPF, CDP, BMPX, FEBC ####[facility] Wmlkxpsmihst4314 [place], [place] [phone] Director: SELWYN Ortega Automated0.0 per 100 WBCNormal0.0C[facility] Med[facility] HospitalComment on above:Performed By: #### FERI, IPF, CDP, BMPX, FEBC ####[facility] [address] [place] [address] [phone] Director: Cheko Ortega CountSee Reflexed IPF BbzdscUpcgra655-816DexfhCleveland Clinic Medina HospitalComment on above:Performed By: #### FERI, IPF, CDP, BMPX, FEBC ####[facility] Adgtnzfpkapa4498 [place], [place] [phone])[phone] Director: CHERELLE Ortega ([facility]) [#/Vol]3.15 10*6/uLLow3.95-5.11[facility] HospitalComment on above:Performed By: #### FERI, IPF, CDP, BMPX, FEBC ####[facility] [address] [place] [address] [phone] Director: JUANA Ortega (janice) [#/Vol]23.3 10*3/uLHigh3.5-11.3MLakewood Regional Medical CenterComment on above:Performed By: #### FERI, IPF, CDP, BMPX, FEBC ####[employer] Lgpapnznvdbl6095 [place], [place] 8603808 Lab Director: LOWELL Ortega 12 leadOrdered By: Unknown Result on 06-18-2022 Atrial Oiia91IMWGMZ SECGL[facility] HEALTHP Tbfw986aqhofviJIL [facility] P-R Zwxsvaex953 msCARILION [facility] HEALTHQ-T Sivatuqe197 msCITY OF HOPE, [place] SECJin-Magic [facility] HEALTHQRS Adtkgnqn43 msCITY OF HOPE, [place]EN[place] SECUNIVERSITY HOSPITALS LAKE WEST MEDICAL CENTERQTc Calculation (Bazett)462 msBON SECGLENWOOD REGION[facility] HEALTHR Kweo806hlgynhqHHO SECGL[facility]WO[facility] HEALTHT Umlq018wexidoyURX SECGL[facility]WO[facility] HEALTHVentricular Izxc00YUZNMM [facility] HEALTHEKG 12 leadon 06-18-2022 Suspect arm lead reversal, interpretation assumes no reversal Normal sinus rhythm Right axis deviation Nonspecific ST abnormality Abnormal ECG No previous ECGs availableHOLY [facility] STV MUSEResult, Unknown Provider - 06/18/2022 Suspect arm lead reversal, interpretation assumes no reversal Normal sinus rhythm Right axis deviation Nonspecific ST abnormality Abnormal ECG No previous ECGs available [facility] Work Phone: Ferritinon [phone] [Mass/Vol]92 ng/mLNormal 13-150C[facility] Medina HospitalComment on above:Performed By: #### FERI, IPF, CDP, BMPX, FEBC ####[facility] JacksonET [employer] Elxhllaxpnot5817 [place], [place] 6450808( [phone] Director: Sidney Epps MDFerritin [Mass/Vol]92 ng/mL13 - 150 ng/mLCHILDR[facility] AT VCUImmature Platelet Fraction on 05-43-3869Jiilhzha, Nrgtousjducl342OGZCARILION ROANOKE MEMORIAL HOSPITALComtr[facility] on above: ORDERED BY LABPlatelet, Immature Fraction2.8 %1.1 - 10.3 %[facility] HOSPITALComment on above:ORDERED BY [facility] HOSPITALIron Binding Cap.on 06-18-2022% Fe Ybimpimcfa54 %Trxhft96-43WfavnCleveland Clinic Medina HospitalComment on above:Performed By: #### FERI, IPF, CDP, BMPX, FEBC ####[facility] Rdykmezqcihz9922 [place] [address] Lab Director: Sidney Epps MDIrosandrita [Mass/Vol]63 ug/bFQlxdtj01-286WpujhCleveland Clinic Medina Hospital Comment on above:Performed By: #### FERI, IPF, CDP, BMPX, FEBC ####[facility] Sgamngulsmhn9970 [place], [place] [phone] Director: Tremaine Ortegatal Fe Binding Bna119 ug/fCOoqncw205-053RdvsmCleveland Clinic Medina HospitalComment on above:Performed By: #### FERI, IPF, CDP, BMPX, FEBC ####[facility] Blxjjggebfjq9814 [place] [address] Lab Director: Girish Ortegabound Fe Bind Fyo810 ug/kELwvnmz251-951DqwhpCleveland Clinic Medina HospitalComment on above:Performed By: #### FERI, IPF, CDP, BMPX, FEBC ####[facility] Sowxsewecsif4018 [place] [address] Lab Director: Henry Ortega and TIBCon 03-60-2700Lfae [Mass/Vol]63 ug/dL37 - 145 ug/dLBON Togus VA Medical Centern binding capacity [Mass/Vol]260 ug/dL250 - 450 ug/dLBON Tog[facility] VA Medical Centern Wqrartqptq11 %20 - 55 %BON [facility] HOSPITALUIBC197 ug/dL112 - 347 ug/dLBON CUSTER REGIONAL HOSPITALMRSA DNA Probe, Nasalon 62-22-3975OGFG, DNA, NasalNegativeNEGATIVEBON [facility]ALTH SYSTEM BUCYRUS HOSPITALComment on above:NEGATIVE: MRSA DNA not detected by nucleic acid amplification. Results should be used as an adjunct to nosocomial control efforts to identify patients needing enhanced precautions. The test is not intended to identify patients with staphylococcal infections. Results should not be used to guide or monitor treatment for MRSA infections. Specimen Description.NASAL SWABBON [facility]ER REGIONAL [facility]PITAL MRSA, DNA, Nasalon 69-58-8024LKRU, DNA, NasalNegativeNormalNEGCleveland Clinic Medina HospitalComment on above:Result Comment: NEGATIVE: MRSA DNA not detected by nucleic acid amplification. Results should be used as an adjunct to nosocomial control efforts to identify patients needing enhanced precautions. The test is not intended to identify patients with staphylococcal infections. Results should not be used to guide or monitor treatment for MRSA infections. Performed By: #### MRSANO #### [address] [place] [address] Bird R[employer]: ANOOP Ortega, Immature Fract.on 66-03-8924Tiinwxkd, Fluoresc.223 k/eBEkxjbe214-127UxhkdCleveland Clinic Medina HospitalComment on above: Result Comment: ORDERED BY LABPerformed By: #### FERI, IPF, CDP, BMPX, FEBC ####[employer] [address]qwlocnezayy[address] [place] [address] Lab Director: ANOOP Ortega, Immature Fract.2.8 %Normal1.1-10.3[facility] Community HospitalComment on above:Result Comment: ORDERED BY LABPerformed By: #### FERI, IPF, CDP, BMPX, FEBC ####[employer] Gwamacvkdrns9096 [place] [address] Lab Director: Sidney Epps MDVitamin B12 & Folateon 46-04-0196Uaaqqhcly (Vitamin B12) [Mass/Vol]496 pg/mL232 - 1245 pg/mLCARILION ROANOKE MEMORIAL HOSPITALFolate [Mass/Vol]5.3 ng/mL4.8 - PINF ng/mLCARILION ROANOKE MEMORIAL HOSPITAL BON [facility] BUCYRUS HOSPITALBrain Natri. Peptideon 15-29-0504Ymzrpttpwmi peptide B (Bld) [Mass/Vol]1834 pg/mLHigh<300Mer[facility] Community HospitalComment on above:Result Comment: An age-independent cutoff point of 300 pg/ml has a 98% negative predictive value excluding acute heart failure.Performed By: #### SED, BNP, CMPX, CRP, IPF, CDP, C4 #### [facility] [address] [place] [address] Bird Raiser: Sidney Epps MD #### AC1EIN #### [facility] [address] [place], [place] [phone] Bird Raiser: Bob Florence MDBrain Natriuretic Peptideon 13-17-2990Zqusqelgvyd peptide B (Bld) [Mass/Vol]1834 pg/mLHighNINF - 300 pg/mLCARILION ROANOKE MEMORIAL HOSPITALComment on above: An age-independent cutoff point of 300 pg/ml has a 98% negative predictive value excluding acute heart failure. C-Reactive Proteinon 42-21-2717TJJ [Mass/Vol]mg/LNormal0.0-5.0C[facility] Med[facility] HospitalComment on above:Performed By: #### SED, BNP, CMPX, CRP, IPF, CDP, C4 #### [facility] [address] [place] [address] [phone] Bird Raiser: Sidney Epps MD #### AC1EIN #### [facility] [address] Bird Raiser: KELLY Vaughan High sensitivity method [Mass/Vol]mg/L0.0 - 5.0 mg/LBON CUSTER REGIONAL HOSPITALC4on 29-32-7747B351 mg/dSMschqp01-50WsramCleveland Clinic Medina HospitalComment on above:Performed By: #### SED, BNP, CMPX, CRP, IPF, CDP, C4 #### [address] [phone] Bird Raiser: Sidney Epps MD #### AC1EIN #### [facility] [address] [place], [place] [phone] Bird Raiser: KELLY Vaughan4 COMPLEMENTon 12-45-1275Bfonspgqzt C433 mg/dL10 - 40 mg/dLBON [facility]GL[facility] HEALTHBON [facility] BUCYRUS HOSPITALCBC with Auto Differentialon 86-28-9514Bkcfrzie Eos #BON [facility] BUCYRUS HOSPITALAbsolute Immature Granulocyte0.19BON SECUNIVERSITY HOS[facility]ALS LA[facility]ST MEDICAL CENTERAbsolute Lymph #0.80LowBON SECUNIVERSITY HOSPITALS LAKE WEST MEDICAL CENTERAbsolute Saluda #0.17B[facility] BUCYRUS HOSPITALBasophils AbsoluteBON [facility] HEALTH SYSTEM BUCYRUS HOSPITALBasophils/100 WBC (Bld)0 %0 - 2 %[facility] Eosinophils/100 WBC (Bld)0 %Low1 - 4 %[facility]IAL HOSPITALHematocrit (Bld) [Volume fraction]32.6 %Low36.3 - 47.1 %[facility]IAL HOSPITALHemoglobin (Bld) [Mass/Vol]10.2 g/dLLow11.9 - 15.1 g/dLBON [facility] SYSTEM BUCYRUS HOSPITALImmature granulocytes/100 WBC (Bld)2 %Rxts8HRUCARILION ROANOKE MEMORIAL HOSPITALInterpretation and review of laboratory resultsAbnormalCARILION ROANOKE MEMORIAL HOSPITALLymphocytes/100 WBC (Bld)6 %Low24 - 43 %[facility] MED[facility] CENTERH (RBC) [Entitic mass]29.9 pg25.2 - 33.5 pgHEALTHSOUTH MEDICAL CENTERHC (RBC) [Mass/Vol]31.3 g/dL28.4 - 34.8 g/dL [facility]ALTH[facility]TH MEDICAL CENTERV (RBC) [Entitic vol]95.6 fL82.6 - 102.9 fLCARILION ROANOKE MEMORIAL HOSPITALMonocytes/100 WBC (Bld)1 %Low3 - 12 %[facility] HOSPITALNRBC Automated0.00.0 per 100 WBCCARILION ROANOKE MEMORIAL HOSPITALPlatelet distribution width (Bld) [Ratio]14.2 %11.8 - 14.4 %[facility] HEALTHPlatelets (Bld) [#/Vol] See Reflexed IPF ResultCARILION ROANOKE MEMORIAL HOSPITALRBC (Bld) [#/Vol]3.41 10*6/uLLow 3.95 - 5.11 m/uLBON AVITA HEALTH SYSTEM BUCYRUS HOSPITALSegmented neutrophils/100 WBC (Bld)91 % High36 - 65 %[facility] MEM[facility] HOSPITALSegs Urnmxdbb17.59HighBON AVITA HEALTH SYSTEM BUCYRUS HOSPITALWBC (Bld) [#/Vol]12.8 10*3/uLHighBON C[facility]ER REGIONAL HOSPITALCBC with Diffon 80-71-1403Ebw. Basophil<0.97Tjxmal7.00-0.20[facility] HospitalComment on above:Performed By: #### SED, BNP, CMPX, CRP, IPF, CDP, C4 #### [facility] [address] [place] [address] Bird Raiser: Sidney Epps MD #### AC1EIN #### [facility] [address] [place] [address] [phone] Bird Raiser: Imelda Vaughan. Eosinophil<0.32Aukfrl9.00-0.44C[facility] Medina HospitalComment on above:Performed By: #### SED, BNP, CMPX, CRP, IPF, CDP, C4 #### [facility] [address] [place] [address] Bird Raiser: Sidney Epps MD #### AC1EIN #### [facility] [address] [place] [phone] Bird Raiser: Imelda Vaughan.Imm.Granulocyte0.19 k/uLNormal0.00-0.30[facility] HospitalComment on above:Performed By: #### SED, BNP, CMPX, CRP, IPF, CDP, C4 #### [facility] [address] [place] [address] Bird Raiser: Sidney Epps MD #### AC1EIN #### [facility] [address] [place] [phone] Bird Raiser: Imelda Vaughan.Neutrophil (Seg)11.59 k/uLHigh1.50-8.10[facility] HospitalComment on above:Performed By: #### SED, BNP, CMPX, CRP, IPF, CDP, C4 #### [facility] [address] [place] [address] Bird Raiser: Sidney Epps MD #### AC1EIN #### [facility] [address] [place], [place] [phone] Bird Raiser: Bob Florence MDBasophils/100 WBC (Bld)0 %Normal0-2[facility] HospitalComment on above:Performed By: #### SED, BNP, CMPX, CRP, IPF, CDP, C4 #### [facility] [address] [place] [address] Bird Raiser: Sidney Epps MD #### AC1EIN #### [facility] [address] [place] [address] [phone] Bird Raiser: Bob Florence MDEosinophils/100 WBC (Bld)0 %Low1-4[facility] HospitalComment on above:Performed By: #### SED, BNP, CMPX, CRP, IPF, CDP, C4 #### [address] [address] Bird Raiser: Sidney Epps MD #### AC1EIN #### [facility] [address] [place] [address] [id number] Bird Raiser: Bob Florence MDErythrocyte distribution width (RBC) [Ratio]14.2 %Dusife60.8-14.4[facility] HospitalComment on above:Performed By: #### SED, BNP, CMPX, CRP, IPF, CDP, C4 #### [facility] [address] [place] [id number] Bird Raiser: Sidney Epps MD #### AC1EIN #### [facility] [address] [place] [address] Bird Raiser: Bob Florence MDHematocrit (Bld) [Volume fraction]32.6 %Low 36.3-47.1MLakewood Regional Medical CenterComment on above:Performed By: #### SED, BNP, CMPX, CRP, IPF, CDP, C4 #### [address] [address] Bird Raiser: Sidney Epps MD #### AC1EIN #### [facility] [address] [place] [address] Bird Raiser: Bob Florence MDHemoglobin (Bld) [Mass/Vol]10.2 g/dLLow11.9-15.1 [facility] HospitalComment on above:Performed By: #### SED, BNP, CMPX, CRP, IPF, CDP, C4 #### [place] [address] Bird Raiser: Sidney Epps MD #### AC1EIN #### [facility] [address] [place] [id number] Bird Raiser: Bob Florence MDImmature granulocytes/100 WBC (Bld)2 %Ipwr8TwjtpCleveland Clinic Medina HospitalComment on above:Performed By: #### SED, BNP, CMPX, CRP, IPF, CDP, C4 #### [address] [address] Bird Raiser: Sidney Epps MD #### AC1EIN #### [facility] [address] [place], [place] [id number] Bird Raiser: Bob Florence MDLymphocytes (Bld) [#/Vol]0.80 10*3/uLLow1.10-3.70 [facility] HospitalComment on above:Performed By: #### SED, BNP, CMPX, CRP, IPF, CDP, C4 #### [address] [address] Bird Raiser: Sidney Epps MD #### AC1EIN #### [facility] [address] [place] [address] Bird Raiser: Bob Florence MDLymphocytes/100 WBC (Bld)6 %Gst38-18ZxygtCleveland Clinic Medina HospitalComment on above:Performed By: #### SED, BNP, CMPX, CRP, IPF, CDP, C4 #### [address] [address] Bird Raiser: Sidney Epps MD #### AC1EIN #### [facility] [address] [place] [address] Bird Raiser: GARIMA VaughanCH (RBC) [Entitic mass]29.9 ntUcoqrg18.2-33.5 [facility] HospitalComment on above:Performed By: #### SED, BNP, CMPX, CRP, IPF, CDP, C4 #### [address] [address] Bird Raiser: Sidney Epps MD #### AC1EIN #### [facility] [address] [place] [address] Bird Raiser: BHAVNA VaughanC (RBC) [Mass/Vol]31.3 g/kRTaanhv72.4-34.8 [facility] HospitalComment on above:Performed By: #### SED, BNP, CMPX, CRP, IPF, CDP, C4 #### [address] [address] Bird Raiser: Sidney Epps MD #### AC1EIN #### [facility] [address] [place] [address] Bird Raiser: ALEJANDRO Vaughan (RBC) [Entitic vol]95.6 lBSwwarc34.6-102.9 [facility] HospitalComment on above:Performed By: #### SED, BNP, CMPX, CRP, IPF, CDP, C4 #### [facility] [address] Bird Raiser: Sidney Epps MD #### AC1EIN #### [facility] [address] [place] [phone] Bird Raiser: Bob Florence MDMonocytes (Bld) [#/Vol]0.17 10*3/uLNormal 0.10-1.20[facility] HospitalComment on above:Performed By: #### SED, BNP, CMPX, CRP, IPF, CDP, C4 #### [facility] [address] [place] [address] Bird Raiser: Sidnye Epps MD #### AC1EIN #### [facility] [address] [place] [phone] Bird Raiser: GARIMA Vaughanonocytes/100 WBC (Bld)1 %Low3-12MerSan Gabriel Valley Medical CenterComment on above:Performed By: #### SED, BNP, CMPX, CRP, IPF, CDP, C4 #### [address] [address] Bird Raiser: Sidney Epps MD #### AC1EIN #### [facility] [address] [place] [address] Bird Raiser: Bob Florence MDNeutrophil (Seg)91 %Rufr90-25UehszCleveland Clinic Medina HospitalComment on above:Performed By: #### SED, BNP, CMPX, CRP, IPF, CDP, C4 #### [facility] [address] [place] [address] Bird Raiser: Sidney Epps MD #### AC1EIN #### [facility] [address] [place] [address] Bird Raiser: Bob Florence MDNRBC Automated0.0 per 100 WBCNormal0.0[facility] HospitalComment on above:Performed By: #### SED, BNP, CMPX, CRP, IPF, CDP, C4 #### [facility] [address] [place] [address] Bird Raiser: Sidney Epps MD #### AC1EIN #### [facility] [address] [place] [address] Bird Raiser: Cheko Vaughan CountSee Reflexed IPF ResultNormal 138-453[facility] HospitalComment on above:Performed By: #### SED, BNP, CMPX, CRP, IPF, CDP, C4 #### [facility] [address] [place] [address] Bird Raiser: Sidney Epps MD #### AC1EIN #### [facility] [address] [place] [address] Bird Raiser: CHERELLE Vaughan ([facility]) [#/Vol]3.41 10*6/uLLow3.95-5.11[facility] HospitalComment on above:Performed By: #### SED, BNP, CMPX, CRP, IPF, CDP, C4 #### [facility] [address] [place] [address] Bird Raiser: Sidney Epps MD #### AC1EIN #### [facility] [address] [place] [address] Bird Raiser: JUANA Vaughan (James) [#/Vol]12.8 10*3/uLHigh3.5-11.3MLakewood Regional Medical CenterComment on above:Performed By: #### SED, BNP, CMPX, CRP, IPF, CDP, C4 #### [facility] [address] [place] [address] Bird Raiser: Sidney Epps MD #### AC1EIN #### [facility] [address] [place] [address] Bird Raiser: Bob Florence, MDCOVID-19, Rapidon 57-47-4966Usbhrnjloplatn and review of laboratory resultsAbnormalCARILION ROANOKE MEMORIAL HOSPITALSARS-CoV-2 (COVID- 19) RdRp gene JESS+probe Ql (Resp)DetectedAbnormalLinda NationSentara Obici Hospitalment on above: Rapid NAAT: The specimen is [...] this assay. Fact sheet for Healthcare Providers: https://www.fda.gov/media/807414/download Fact sheet for Patients: https://www.fda.gov/media/442442/download Methodology: Isothermal Nucleic Acid Amplification Results reported to the appropriate Health Department Specimen Description.NASOPHARYNGEAL SWABCHILDREN'S [facility] AT VCUCT NECK [address] W CONon [id number] NECK ST W CONINDICATION: 86 years old; Female. Symptom/Location/Duration: Tongue swelling. History of lymphoma. TECHNIQUE: CT [...] worse on the right than the left. 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 RETROPHARYNGEAL SPACE: Normal [...] Electronically authenticated by: SERGIO DUQUE Date: 2022-06-17 01:[address] [place], [place] [address]Comp Metabolic Pr/rfx MGon 13-69-3923Hywixda [Mass/Vol]4.3 g/dL Normal3.5-5.2[facility] HospitalComment on above:Performed By: #### SED, BNP, CMPX, CRP, IPF, CDP, C4 #### [facility] [place], [place] [id number] Bird Raiser: Sidney Epps MD #### AC1EIN #### [facility] [address] [place] [address] Bird Raiser: Bob Florence MDAlbumin/Glob Ratio1.4Bgjgdh2.0-2.5[facility] HospitalComment on above:Performed By: #### SED, BNP, CMPX, CRP, IPF, CDP, C4 #### [facility] [place] [address] Bird Raiser: Sidney Epps MD #### AC1EIN #### [facility] [address] [place] [address] Bird Raiser: Kristen Vaughan Nmpl587 U/FNlhe90-269QdcmnCleveland Clinic Medina HospitalComment on above:Performed By: #### SED, BNP, CMPX, CRP, IPF, CDP, C4 #### [facility] [address] [place] [address] Bird Raiser: Sidney Epps MD #### AC1EIN #### [facility] [address] [place] [address] Bird Raiser: Bob Florence MDALT [Catalytic activity/Vol]10 U/LNormal5-33[facility] HospitalComment on above:Performed By: #### SED, BNP, CMPX, CRP, IPF, CDP, C4 #### [facility] [address] Bird Raiser: Sidney Epps MD #### AC1EIN #### [facility] [address] [place] [address] Bird Raiser: Teresa Vaughan gap [Moles/Vol]17 mmol/LNormal9-17[facility] HospitalComment on above:Performed By: #### SED, BNP, CMPX, CRP, IPF, CDP, C4 #### [facility] [address] [place] [address] Bird Raiser: Sidney Epps MD #### AC1EIN #### [facility] [address] [place] [address] Bird Raiser: Bob Florence MDAST [Catalytic activity/Vol]16 U/LNormal<32[facility] HospitalComment on above:Performed By: #### SED, BNP, CMPX, CRP, IPF, CDP, C4 #### [facility] [address] [place] [address] Bird Raiser: Sidney Epps MD #### AC1EIN #### [facility] [address] [place], [place] [phone] Bird Raiser: Bob Florence MDBilirubin [Mass/Vol]0.4 mg/dLNormal0.3-1.2MLakewood Regional Medical CenterComment on above:Performed By: #### SED, BNP, CMPX, CRP, IPF, CDP, C4 #### [facility] [address] [place] [address] Bird Raiser: Sidney Epps MD #### AC1EIN #### [facility] [address] [place], [place] [phone] Bird Raiser: KELLY Vaughanalcium [Mass/Vol]9.7 mg/dLNormal8.6-10.4[facility] HospitalComment on above:Performed By: #### SED, BNP, CMPX, CRP, IPF, CDP, C4 #### [facility] [address] [place] [address] Bird Raiser: Sidney Epps MD #### AC1EIN #### [facility] [address] [place], [place] [phone] Bird Raiser: KELLY Vaughanhloride [Moles/Vol]107 mmol/VYftfxh82-191ErvmwCleveland Clinic Medina HospitalComment on above:Performed By: #### SED, BNP, CMPX, CRP, IPF, CDP, C4 #### [facility] [address] [place] [address] Bird Raiser: Sidney Epps MD #### AC1EIN #### [facility] [address] [place], [place] [phone] Bird Raiser: KELLY VaughanO2 [Moles/Vol]16 mmol/IYhb62-26KtyrqCleveland Clinic Medina HospitalComment on above:Performed By: #### SED, BNP, CMPX, CRP, IPF, CDP, C4 #### [facility] [address] [place] [address] Bird Raiser: Sidney Epsp MD #### AC1EIN #### [facility] [address] [place], [place] [phone] Bird Raiser: KELLY Vaughanreatinine [Mass/Vol]1.24 mg/dLHigh0.50-0.90[facility] HospitalComment on above:Performed By: #### SED, BNP, CMPX, CRP, IPF, CDP, C4 #### [facility] [address] [place] [address] [phone] Bird Raiser: Sidney Epps MD #### AC1EIN #### [facility] [address] [place] [phone] Bird Raiser: Bob Florence MDGFR/1.73 sq M.predicted among non-blacks MDRD (S/P/Bld) [Vol rate/Area]43 mL/min/{1.73_m2}Low>60[facility] HospitalComment on above:Result Comment: These results are not intended for [...] or following therapy that affects renal tubular secretion.Performed By: #### SED, BNP, CMPX, CRP, IPF, CDP, C4 #### [facility] [address] [place] [address] [phone] Bird Raiser: Sidney Epps MD #### AC1EIN #### [facility] [address] [place], [place] [phone] Bird Raiser: Bob Florence MDGlucose [Mass/Vol]165 mg/jASaya22-34SzeulJerold Phelps Community HospitalComment on above:Performed By: #### SED, BNP, CMPX, CRP, IPF, CDP, C4 #### [facility] [address] [place] [address] Bird Raiser: Sidney Epps MD #### AC1EIN #### [facility] [address] [place] [address] Bird Raiser: KATY Vaughanotassium [Moles/Vol]4.2 mmol/LNormal3.7-5.3[facility] HospitalComment on above:Performed By: #### SED, BNP, CMPX, CRP, IPF, CDP, C4 #### [facility] [address] [place] [address] Bird Raiser: Sidney Epps MD #### AC1EIN #### [facility] [address] [place] [address] Bird Raiser: Bob Florence MDProtein [Mass/Vol]6.7 g/dLNormal6.4-8.3Muniversity hospitals geaug[facility] medical centery [facility] Community HospitalComment on above:Performed By: #### SED, BNP, CMPX, CRP, IPF, CDP, C4 #### [facility] [address] [place] [address] Bird Raiser: Sidney Epps MD #### AC1EIN #### [facility] [address] [place] [phone] Bird Raiser: Bob Florence MDSodium [Moles/Vol]140 mmol/DKrsxbt482-471Libuo [facility] HospitalComment on above:Performed By: #### SED, BNP, CMPX, CRP, IPF, CDP, C4 #### [facility] [address] [place] [address] Bird Raiser: Sidney Epps MD #### AC1EIN #### [facility] [address] [place] [address] [phone] Bird Raiser: Bob Florence MDUrea nitrogen [Mass/Vol]22 mg/dLNormal8-23[facility] Hospitalcy [facility] HospitalComment on above:Performed By: #### SED, BNP, CMPX, CRP, IPF, CDP, C4 #### [facility] [address] [place] [address] Bird Raiser: Sidney Epps MD #### AC1EIN #### [facility] [address] [place] [address] Bird Raiser: KELLY Vaughanomprehensive Metabolic Panel w/ Reflex to MGon [id number] [Mass/Vol]4.3 g/dL3.5 - 5.2 g/dLB[facility] Albumin/Globulin [Mass ratio]1.8 {ratio}1.0 - 2.5B[facility] MER[facility] HEALTHALP [Catalytic activity/Vol]148 U/LHigh35 - 104 U/LBON [facility]OURS MERCY HEALTHALT [Catalytic activity/Vol]10 U/L5 - 33 U/LBON [facility]RS MERCY HEALTHAnion gap [Moles/Vol]17 mmol/L9 - 17 mmol/LBON SECOURS MERCY HEALTHAST [Catalytic activity/Vol]16 U/LNINF - 32 U/LBON [facility]RS MERCY HEALTHBilirubin [Mass/Vol]0.4 mg/dL0.3 - 1.2 mg/dLBON [facility]OURS MERCY HEALTHCalcium [Mass/Vol]9.7 mg/dL8.6 - 10.4 mg/dLB[facility] SECOURS MERCY HEALTHChloride [Moles/Vol]107 mmol/L98 - 107 mmol/L [facility] HEALTHCO2 [Moles/Vol]16 mmol/LLow20 - 31 mmol/LBON SECOURS MERCY HEALTHCreatinine [Mass/Vol]1.24 mg/dLHigh0.50 - 0.90 mg/dLBON SECOURS MERCY HEALTHGFR/1.73 sq M.predicted MDRD (S/P/Bld) [Vol rate/Area]43 mL/min/{1.73_m2}Low- PINFBON SECOURS MERCY HEALTHComment on above: These results are not intended [...] therapy that affects renal tubular secretion. Glucose [Mass/Vol]165 mg/fOGlwk06 - 99 mg/dLBON SECOURS MERCY HEALTHPotassium [Moles/Vol]4.2 mmol/L3.7 - 5.3 mmol/LBON SECOURS MERCY HEALTHProtein [Mass/Vol] 6.7 g/dL6.4 - 8.3 g/dLBON SECOURS MERCY HEALTHSodium [Moles/Vol]140 mmol/L135 - 144 mmol/LBON SECOURS MERCY HEALTHUrea nitrogen [Mass/Vol]22 mg/dL8 - 23 mg/dL [facility] HOSPITALCovid-19 PCR (CVDTBH)on 74-83-5673HKYM-CoV-2 (COVID-19) RNA JESS+probe Ql (Unsp spec)DetectedAbnormalNOT DETECTEDThe [facility] Comment on above:Result Comment: This test is not yet approved or cleared by the [place] FDA. When there are no FDA-approved or cleared tests available, and other criteria are met, FDA can make tests available under an emergency access mechanism called an Emergency Use Authorization (EUA). The EUA for this test is supported by the [place] [employer] of Health and Human Service's declaration that circumstances exist to justify the emergency use of in vitro diagnostics for the detection and/or diagnosis of the virusthat causes COVID-19. This EUA will remain in effect for the duration of the COVID-19 declaration justifying emergency of IVDs, unless it is terminated or revoked by the FDA (after which the test mayno longer be used).Performed By: #### CVDTBH #### [facility] [address] [place] [address] Dr. Carla Pappasncdieter Platelet Fractionon 51-04-8650Whxxygel, Fluorescence Platelet clumps present, count appears adequate.[facility] HOSPITALBON SECUNIVERSITY HOSPITALS LAKE WEST MEDICAL CENTERMRSA, DNA, Nasalon 04-51-1518Fyafwdsa Description.NASAL SWAB [facility] Medical CenterComment on above:Performed By: #### MRSANO #### [facility] [place] [address] Bird Raiser: Sidney Epps MDNo Panel Informationon 38-89-9469Hkynnadvhuwcky and review of laboratory resultsAbSturgis Regional HospitalPLT, Immature Fract.on 55-56-0379Jszocsfl, Fluoresc.Platelet clumps present, count appears adequate.Cteaoh602-079EjvebCleveland Clinic Medina Hospital Comment on above:Performed By: #### SED, BNP, CMPX, CRP, IPF, CDP, C4 #### [facility] [address] [place], [place] [id number] Bird Raiser: Sidney Epps MD #### AC1EIN #### [facility] [address] [place] [address] Bird Raiser: KATY VaughanOC Glucose Fingerstickon 49-36-6623Xncbjtl [Mass/Vol]130 mg/pQCcxd54 - 105 mg/dLBON [facility] BUCYRUS HOSPITALInterpretation and review of laboratory resultsAbSturgis Regional HospitalGlucose [Mass/Vol]149 mg/uTDrzu88 - 105 mg/dLBON [facility] Interpretation and review of laboratory resultsAbWinchester Medical Center BON [facility] BUCYRUS HOSPITALSARS-CoV-2on [id number]-CoV-2 (COVID-19) RNA JESS+probe Ql (Unsp spec)DetectedAbmentoneNOTDETMLakewood Regional Medical Center Comment on above:Result Comment: Rapid NAAT: The specimen is POSITIVE [...] this assay. Fact sheet for Healthcare Providers: https://www.fda.gov/media/988781/download Fact sheet for Patients: https://www.fda.gov/media/983129/download Methodology: Isothermal Nucleic Acid Amplification Results reported to the appropriate Health DepartmentPerformed By: #### COVRB ####[facility] [address] [place], [place] [id number] Lab Director: ASHLI Ortegaedimentation Rateon 22-80-3375Kblowinjkvlls Rate9 mm/HrNormal 0-30[facility] HospitalComment on above:Performed By: #### SED, BNP, CMPX, CRP, IPF, CDP, C4 #### [facility] [address] [place], [place] [phone] Bird Raiser: Sidney Epps MD #### AC1EIN #### [facility] [address] [place], [place] [phone] Bird Raiser: JAVAN Vaughan (Bld) [Velocity]9 mm/hBON MORENO VALLEY COMMUNITY HOSPITALmywaves HEALTHBON MORENO VALLEY COMMUNITY HOSPITALmywaves [facility] TRUM[facility]ULLXR CHEST PORTABLEon [id number] CHEST PORTABLE EXAMINATION: ONE XRAY VIEW OF [...] Signed by: Sweetie Robles DO 06/17/22 Final resultNormalMercy Ojai Valley Community Hospital1. No acute intrathoracic process. 2. Large hiatal hernia. 3. Nodular density overlying right upper lung, possibly related to the posterior right 5th rib versus parenchymal nodule. Consider CT imaging for further evaluation. [facility] CONSOLIDATEDEXAMINATION: ONE XRAY VIEW OF THE CHEST 06/17/2022 [...] rib. No evidence of acute osseous abnormality. [facility] Kathieanna Sweetie, - 06/17/2022 EXAMINATION: ONE XRAY VIEW OF [...] nodule. Consider CT imaging for further evaluation. [employer] Phone: radiology Study observation (narrative)[employer] Phone: XR CHEST PORTABLEOrdered By: Sweetie Robles on [id number] Phone: BNPon 11-37-8625Thdongwizuk peptide B (Bld) [Mass/Vol] 535.0 pg/mLNormal<=1,800.0The [facility] HospitalComment on above:Performed By: #### CMADM, CMP, BNP #### [facility] [address] [place] [address] Dr. Carla Marquez KAPIL ADMITon [id number] [Catalytic activity/Vol]60 U/L Ypztxb40-641Scn [facility] Hospitalment on above:Performed By: #### CMADM, CMP, BNP #### [facility] [address] [place] [address] Dr. Carla Simon.MB [Mass/Vol]1.11 ng/mLNormal<=3.60[facility] Comment on above:Performed By: #### CMADM, CMP, BNP #### [facility] [address] [place] [address] Dr. Carla LeoneTROP10.7 pg/mLNormal4.0-51.3The [facility] HospitalComment on above:Result Comment: CUT-OFF POINTS HAVE BEEN ESTABLISHED BASED ON THE FOURTH UNIVERSAL DEFINITIONS OF MYOCARDIAL INFARCTION. THE UPPER REFERENCE LIMIT (URL) OF TROPONIN, DEFINED THE 99TH PERCENTILE OF cTnI DISTRIBUTION IN A REFERENCE POPULATION, HAS BEEN CONFIRMED THE DECISION THRESHOLD FOR WA DIAGNOSIS.Performed By: #### CMADM, CMP, BNP #### [facility] [address] [place] [address] Dr. Carla SearsO53 ng/mLNormal9-82[facility] on above: Performed By: #### CMADM, CMP, BNP #### [facility] [address] [place] [address] Dr. Carla Salinas AUTO DIFFon 82-40-1086HILH #0.1 103/ulNormal0.0-0.1[facility] on above:Performed By: #### LIPID, CMP #### [facility] [address] [place] [address] Dr. Carla LittleBasophils/100 WBC (Bld)0.6 %Normal0.2-2.0[facility] Comment on above:Performed By: #### LIPID, CMP #### [facility] [address] [place] [address] Dr. Carla Hernandez #0.2 103/ulNormal0.0-0.7The [facility] HospitalComment on above: Performed By: #### LIPID, CMP #### [facility] [address] [place] [address] Dr. Carla Rossosinophils/100 WBC (Bld)1.5 %Normal0.9-7.0The [facility] Comment on above:Performed By: #### LIPID, CMP #### [facility] [address] [place] [address] Dr. Carla Rossrythrocyte distribution width (RBC) [Ratio]14.2 %Dzixlr39.0-15.0 The [facility] HospitalComment on above:Performed By: #### LIPID, CMP #### [facility] [address] [place] [address] Dr. Carla LittleHematocrit (Bld) [Volume fraction]36.9 %Ymaeip40.0-48.0The [facility] HospitalComment on above:Performed By: #### LIPID, CMP #### [facility] [address] [place] [address] Dr. Carla LittleHemoglobin (Bld) [Mass/Vol]11.5 g/dLCritically low12.0-16.0The [facility] HospitalComment on above:Performed By: #### LIPID, CMP #### [facility] [address] [place] [address] Dr. Carla Eric #0.11 10e3/ulCritically high0.00-0.03The [facility] Comment on above:Performed By: #### LIPID, CMP #### [facility] [address] [place] [address] Dr. Carla Eric %1.0 %Critically high0.0-0.5The [facility] HospitalComment on above:Performed By: #### LIPID, CMP #### [facility] [address] [place] [address] Dr. Carla Nunn #1.5 103/ulNormal1.2-3.8The [facility] HospitalComment on above:Performed By: #### LIPID, CMP #### [facility] [address] [place] [address] Dr. Carla Schmidtmphocytes/100 WBC (Bld)13.7 %Critically low20.5-60.0The [facility] HospitalComment on above:Performed By: #### LIPID, CMP #### [facility] [address] [place] [address] Dr. Carla HarrellUAL DIFF REQNONormalThe [facility] HospitalComment on above: Performed By: #### LIPID, CMP #### [facility] [address] [place] [address] Dr. Carla Espinal (RBC) [Entitic mass]29.6 nqXshttw92.7-34.0The [facility] HospitalComment on above:Performed By: #### LIPID, CMP #### [facility] [address] [place] [address] Dr. Carla Espinal (RBC) [Mass/Vol]31.2 g/wWCtyukg85.9-35.2The [facility] HospitalComment on above:Performed By: #### LIPID, CMP #### [facility] [address] [place] [address] Dr. Carla Espinal (RBC) [Entitic vol]94.9 sYBmgmir51.0-99.0The [facility] HospitalComment on above:Performed By: #### LIPID, CMP #### [facility] [address] [place] [address] Dr. Carla Collier #0.9 103/ulCritically high0.3-0.8ThC[facility] Clinic [facility] Comment on above:Performed By: #### LIPID, CMP #### [facility] [address] [place] [address] Dr. Carla Ninoocytes/100 WBC (Bld)8.5 %Normal1.7-12.0[facility] Comment on above:Performed By: #### LIPID, CMP #### [facility] [address] [address] [address] Carla Gonsalves #8.0 103/ulCritically high1.4-6.5The [facility] Comment on above:Performed By: #### LIPID, CMP #### [facility] [address] [place] [address] Dr. Carla Domingoutrophils/100 WBC (Bld)74.7 %Zlewsq45.0-75.0The [facility] HospitalComment on above:Performed By: #### LIPID, CMP #### [facility] [address] [place] [address] Dr. Carla LittlePlatelet mean volume (Bld) [Entitic vol]10.1 fLNormal9.5-13.5The [facility] HospitalComment on above:Performed By: #### LIPID, CMP #### [facility] [address] [place] [address] Dr. Carla LittlePLT304 103/zlYtrrqr634-068Dhv [facility] HospitalComment on above: Performed By: #### LIPID, CMP #### [facility] [address] [place] [address] Dr. Carla LittleRBC3.89 106/ulCritically low4.20-5.40The [facility] HospitalComment on above:Performed By: #### LIPID, CMP #### [facility] [address] [place] [address] Dr. Carla LittleWBC10.7 103/ulNormal4.0-11.0The [facility] HospitalComment on above:Performed By: #### LIPID, CMP #### [facility] [address] [place] [address] Dr. Carla LittlePROF 14(COMP METB)on 91-45-7909Yqxgcoh [Mass/Vol]3.8 g/dLNormal 3.4-5.0The [facility] HospitalComment on above:Performed By: #### CMADM, CMP, BNP #### [facility] [address] [place] [address] Dr. Carla LittleAlbumin/Globulin [Mass ratio]1.3 {ratio}NormalThe [facility] HospitalComment on above:Performed By: #### CMADM, CMP, BNP #### [facility] [address] [place] [address] Dr. Carla Miner [Catalytic activity/Vol]176 U/LCritically iahh46-309Slx [facility] HospitalComment on above:Performed By: #### CMADM, CMP, BNP #### [facility] [address] [place] [address] Dr. Carla Kent [Catalytic activity/Vol]13 U/LCritically woz90-44Ozk [facility] HospitalComment on above:Performed By: #### CMADM, CMP, BNP #### [facility] [address] [place] [address] Dr. Carla Luong gap [Moles/Vol]18.9 mmol/LNormalThe [facility] Comment on above:Performed By: #### CMADM, CMP, BNP #### [facility] [address] [place] [address] Dr. Carla LittleAST [Catalytic activity/Vol]15 U/GOfftct09-70Sis [facility] HospitalComment on above:Performed By: #### CMADM, CMP, BNP #### [facility] [address] [place] [address] Dr. Carla LittleBilirubin [Mass/Vol]0.3 mg/dLNormal0.2-1.0The [facility] Comment on above:Performed By: #### CMADM, CMP, BNP #### [facility] [address] [place] [address] Dr. Carla LittleCalcium [Mass/Vol]9.1 mg/dLNormal8.5-10.1[facility] Comment on above:Performed By: #### CMADM, CMP, BNP #### [facility] Laboratory [address] [place] [address] Dr. Carla LittleChloride [Moles/Vol]105 mmol/KRoygct65-403Acj [facility] Comment on above:Performed By: #### CMADM, CMP, BNP #### [facility] [address] [address] [address] Carla LittleCO2 [Moles/Vol]21.8 mmol/VIaezfg57.0-32.0The [facility] Comment on above:Performed By: #### CMADM, CMP, BNP #### [facility] [address] [address] [address] Carla LittleCreatinine [Mass/Vol]1.54 mg/dLCritically high0.55-1.02The [facility] HospitalComment on above:Performed By: #### CMADM, CMP, BNP #### [facility] [address] [place] [address] Dr. Carla RossGFR-AF ZTDTSZSL58 mL/min/1.53s0Catfdfavwp low>=60The [facility] HospitalComment on above:Performed By: #### CMADM, CMP, BNP #### [facility] [address] [place] [address] Dr. Carla RossGFR-NON AF IIRAXEFP68 mL/min/1.06e8Kkkhmqlaup low>=60The [facility] HospitalComment on above:Performed By: #### CMADM, CMP, BNP #### [facility] [address] [address] [address] Carla LittleGlobulin (S) [Mass/Vol]3.0 g/dLNormalThe [facility] HospitalComment on above:Performed By: #### CMADM, CMP, BNP #### [facility] [address] [address] [address] Carla LittleGlucose [Mass/Vol]117 mg/dLCritically isdv08-878Xvl [facility] Hospitalment on above:Performed By: #### CMADM, CMP, BNP #### [facility] [address] [place] [address] Dr. Carla LittlePotassium [Moles/Vol]3.7 mmol/LNormal3.5-5.1The [facility] Comment on above:Performed By: #### CMADM, CMP, BNP #### [facility] [address] [address] [address] Carla LittleProtein [Mass/Vol]6.8 g/dLNormal6.4-8.2[facility] Comment on above:Performed By: #### CMADM, CMP, BNP #### [facility] [address] [place] [address] Dr. Carla Maxwellum [Moles/Vol]142 mmol/RXtrnao067-029KsuC[facility] Clinic [facility] Comment on above:Performed By: #### CMADM, CMP, BNP #### [facility] [address] [place] [address] Dr. Carla Ugalde nitrogen [Mass/Vol]24.0 mg/dLCritically high7.0-18.0[facility] HospitalComment on above:Performed By: #### CMADM, CMP, BNP #### [facility] [address] [place] [address] Dr. Carla Ugalde nitrogen/Creatinine [Mass ratio]15.6 mg/mgNoMercy Health – The Jewish HospitalComment on above:Performed By: #### CMADM, CMP, BNP #### [facility] [address] [place] [address] Dr. Carla Gill [id number] Coag (PPP) [Relative time]0.95 {INR} NormalCleveland Clinic Avon HospitalComment on above:Performed By: #### LIPID, CMP #### [facility] [address] [place] [address] Dr. Carla Jefferson GUIDELINESSEE BELOWMercy Health St. Elizabeth [facility] HospitalComment on above:Result Comment: DESIRED INR: 2.0 - 3.0 CONDITIONS NOT LISTED BELOW 2.5 - 3.5 FOR PROSTHETIC HEART VALVE REPLACEMENT 2.5 - 3.5 RECURRENT THROMBOSIS Performed By: #### LIPID, CMP #### [facility] [address] [place] [address] Dr. Carla LittlePT Coag (PPP) [Time]10.1 sNormal9.0-11.6The [facility] Comment on above:Performed By: #### LIPID, CMP #### [facility] [address] [place] [address] Dr. Carla Nash [id number] Coag (Bld) [Time]24.2 iIgrrxs91.3-36.2The [facility] HospitalComment on above:Performed By: #### LIPID, CMP #### [facility] [address] [place], [place] [address] Dr. Carla LittleTYPE AND SCREENon [id number] AND SCREENNegativeMercy Health St. [facility] HospitalComment on above:Performed By: #### LIPID, CMP #### [facility] [address] [place], [place] [address] Dr. Carla LittleXR CHEST 1 Von [id number] CHEST 1 VEXAMINATION: XR CHEST 1 V, , 06/16/2022 6:40 PM EST [...] Electronically authenticated by: BENJAMIN ROGERS Date: 2022-06-16 19:49[facility] Vital Signs Date TimeVital SignValuePerforming KobaiawsmVcfimhvr71-87-7435 13:02-0500Blood Pressure LocationDeonte ROSARIO 761-4383Tnjjdu-TyfdrSt. [facility] Hospital02-26-2025 13:02-0500Diastolic blood zsmirwrv23 mm[Hg]Deonte ROSARIO 400-6288Gswcwo-RtarlSt. Charles Hospital02-26-2025 13:02-0500Heart rate74 /minDeonte ROSARIO 070-4836Ajpasx-WcrvgSt. Charles Hospital02-26-2025 13:02-6997PmU9% (BldA) [Mass fraction]98 %Deonte ROSARIO 786-0940Qtgzlq-FrfjzSt. Charles Hospital02-26-2025 13:02-0500Systolic blood anvidxhz391 mm[Hg]Deonte ROSARIO 665-2441Svztva-JqrqaSt. Charles Hospital11-18-2024 13:50-0500Blood Pressure LocationRenettazonia ROSARIO 878-7605Bdalvl-Euwzp[address] [place], [place] 5992511-18-2024 13:50-0500Body iyqfiepnpij15.06 [degF]Deonte ROSARIO 681-1875Aekfcv-Trnyp[address] [place], [place] 5992511-18-2024 13:50-0500Diastolic blood mm[Hg]Deonte ROSARIO 356-2058Gmqqsv-Wxleu[address] [place], [place] 5992511-18-2024 13:50-0500Heart rate80 /minDeonte PAULO 159-7719Nwosom-Ujnyl[address] [place], [place] 5992511-18-2024 13:50-0500Systolic blood aejfwzvq382 mm[Hg]Deonte ROSARIO 263-7142Wtzylo-Yhunk[address] [place], [place] 5992511-07-2024 15:01-0500Blood Pressure LocationMijcarlos Muñozsandrita [facility]11-07-2024 15:01-0500 Diastolic blood ngeurabd84 mm[Hg]Jonathon Espinoza [facility]11-07-2024 15:01-0500Heart rate72 /minJonathon Muñozsandrita [facility]11-07-2024 15:01-0500 Respiratory rate16 /minMithereseail Tonin [facility]11-07-2024 15:01-7218EoL3% (BldA) [Mass fraction]98 %Jonathon Muñozsandrita [facility]11-07-2024 15:01-0500 Systolic blood mm[Hg]Jonathon Muñozn [facility]10-18-2024 10:03-0400Blood Pressure LocationBahayley Warner [facility]10-18-2024 10:03-0400 Diastolic blood fjhdaknj60 mm[Hg]Migdalia Warner [facility]10-18-2024 10:03-0400Heart rate65 /minBahayley Warner [facility]10-18-2024 10:03-9727CmR0% (BldA) [Mass fraction]98 %Migdalia Warner [facility]10-18-2024 10:03-0400 Systolic blood mm[Hg]Migdalia Warner [facility]09-26-2024 14:47-0400Blood Pressure LocationAlexx Nicole [address] [place], [place] 5413909-26-2024 14:47-0400 Diastolic blood jwnfcjhi81 mm[Hg]Alexx Nicole [facility]09-26-2024 14:47-0400Heart rate74 /minThomas Nicole [facility]09-26-2024 14:47-0400 Respiratory rate18 /minThomas Nicole [facility]09-26-2024 14:47-0258HlH9% (BldA) [Mass fraction]97 %Alexx Nicole [address] [place], [place] 5413909-26-2024 14:47-0400 Systolic blood weisfxal531 mm[Hg]Alexx Nicole [address] [place], [place] 5413909-25-2024 12:58-0400Blood Pressure LocationDeonte ROSARIO 381-9639Yzqxkh-FcncoSt. Charles Hospital09-25-2024 12:58-0400Body nlqjlhactnb26.88 [degF]Deonte ROSARIO 242-3448Kfcdwe-YfrotSt. Charles Hospital09-25-2024 12:58-0400Diastolic blood uzjrksxt59 mm[Hg]Deonte ROSARIO 830-6204Lzeehz-GkbjsSt. Charles Hospital09-25-2024 12:58-0400Heart rate80 /minDeonte PAULO 716-3305Ztwyhw-VkqzpSt. Charles Hospital09-25-2024 12:58-4698PmD2% (BldA) [Mass fraction]97 %Deonte ROSARIO 379-4327Ufjhuj-NsbboSt. Charles Hospital09-25-2024 12:58-0400Systolic blood cqefrail677 mm[Hg]Deonte ROSARIO 745-1010Ahcecf-DlstwSt. Charles Hospital09-13-2024 18:11-0400Hourly RoundingEmmanSt. Elizabeth Hospital09-13-2024 18:11-0400Promise to [facility] 01-23-2024 17:11-0400Hourly RoundingEmmanSt. Elizabeth Hospital09-13-2024 17:11-0400Promise to ReturnEmOhio [facility]09-13-2024 16:00-0400Hourly RoundingEmmanSt. [facility] Hospital09-13-2024 16:00-0400Promise to ReturnEmOhio State University [facility]09-13-2024 10:17-0400Heart rate80 /minEmmanSt. Elizabeth Hospital09-13-2024 10:17-3018OkS5% (BldA) [Mass fraction]93 % [facility]09-13-2024 10:16-0400Diastolic blood miinzhfk97 mm[Hg][facility]09-13-2024 10:16-0400Mean blood mm[Hg][facility]09-13-2024 10:16-0400Systolic blood mcakxibe975 mm[Hg]Jose G [facility]09-13-2024 10:16-0400Body kshluehpquv55.88 [degF] Jose GSt. [facility]09-13-2024 08:15-0400Heart rate86 /minEnehanmarci [facility]09-13-2024 08:15-4411KnI7% (BldA) [Mass fraction]95 %Jose GSt. [facility] 01-23-2024 08:14-0400Diastolic blood fnndogxa70 mm[Hg]Jose GSt. [facility] Hospital09-13-2024 08:14-0400Mean blood mm[Hg]Jose GSt. [facility] Hospital09-13-2024 08:14-0400Systolic blood pressure 119 mm[Hg]Jose GSt. [facility]09-13-2024 08:14-0400Body .6 [degF][facility]09-13-2024 07:55-0400Heart rate74 /Lynnettesandritamarci [facility] 01-23-2024 07:55-0400Respiratory rate16 /minEnehasandritaSt. Elizabeth Hospital09-13-2024 07:43-0400Respiratory rate16 /minEmmanmarci [facility]09-13-2024 07:43-9632SuS2% (BldA) [Mass fraction]95 % [facility]09-13-2024 07:20-0400Body dbaevtkxovb01.42 [degF]Jose GSt. [facility]09-13-2024 07:00-0400Diastolic blood gychwokt79 mm[Hg][facility]09-13-2024 07:00-0400Systolic blood wanjpqhj384 mm[Hg]Jose GSt. [facility] Hospital09-13-2024 00:53-0400Blood Pressure Location Jose G [facility]09-13-2024 00:53-0400Body yxzymxmqhxb65.24 [degF]Jose G [facility]09-13-2024 00:53-0400Mean blood pelzmeci81 mm[Hg]Jose G [facility]09-12-2024 20:48-0400Respiratory rate20 /minEmmanmarci [facility]09-12-2024 19:26-0400Mean blood dgagrlvg89 mm[Hg]Jose G [facility]09-12-2024 19:26-0400Body ugleusodxid51.6 [degF] Jose GSt. [facility]09-12-2024 00:00-0400Mean blood wlfxydna26 mm[Hg]Jose G [facility]09-11-2024 19:37-0400Heart rate88 /Linda [facility] 01-21-2024 19:35-0400Blood Pressure LocationEmannaSt. Elizabeth Hospital09-11-2024 08:31-0400Blood Pressure LocationEmannaSt. Elizabeth Hospital09-11-2024 08:31-0400Heart rate64 /minEnehanmarci [facility]09-06-2024 10:37-0400Diastolic blood mm[Hg]Jonathon Tonialisia [facility]09-06-2024 10:37-0400Heart rate77 /minJonathon GoChongosandritaMichael B. White Enterprises [facility]09-06-2024 10:37-0400 Respiratory rate16 /minBritCrowdTogetherpetra GoChongonus [facility]09-06-2024 10:37-0798BwS3% (BldA) [Mass fraction]93 %Jonathon Espinoza [facility]09-06-2024 10:37-0400 Systolic blood chruzhur453 mm[Hg]Jonathon Espinoza [facility]08-21-2024 13:51-0400Blood Pressure LocationDeonte ROSARIO 944-8852Ywccpb-InaddSt. [facility] Hospital08-21-2024 13:51-0400Body zowrvibsryg02.7 [degF]Deonte ROSARIO 466-6795Azxowq-BzgzgSt. Charles Hospital08-21-2024 13:51-0400Diastolic blood mm[Hg]Deonte ROSARIO 673-2281Farfav-Qcmtr[address] [place], [place] 5992508-21-2024 13:51-0400Heart rate64 /minDeonte ROSARIO 497-3895Owekxg-RnoigSt. Charles Hospital08-21-2024 13:51-0495OfD6% (BldA) [Mass fraction]97 %Deonte ROSARIO 838-4711Cdmgqd-Wirdz[address] [place], [place] 5992508-21-2024 13:51-0400Systolic blood enmsgycx068 mm[Hg]Deonte ROSARIO 532-9988Tjtqco-Bpwuo[address] [place], [place] 5992505-14-2024 15:20-0400Diastolic blood lmteeirt02 mm[Hg]Deonte ROSARIO 112-7843Bwiwqb-LijfhSt. Charles Hospital05-14-2024 15:20-0400Mean blood ckoidxuj12 mm[Hg]Deonte ROSARIO 063-0676Jbeaah-KmgodSt. [facility] Hospital05-14-2024 15:20-0400Systolic blood ooewklrj525 mm[Hg]Deonte ROSARIO 185-9860Zjgfbx-Ywyhq[address] [place], [place] 5992505-14-2024 15:05-0400Blood Pressure LocationDeonte ROSARIO 802-2242Dlhekg-Blomq[address] [place], [place] 5992505-14-2024 15:05-0400Body gzjxqaajpsz74.88 [degF]Deonte ROSARIO 468-1570Mvzeez-Szpwi[address] [place], [place] 5992505-14-2024 15:05-0400Diastolic blood wfdpylmn19 mm[Hg]Deonte ROSARIO 286-1252Gfsoug-Libqk[address] [place], [place] 5992505-14-2024 15:05-0400Heart rate84 /Irma PAULO [address] [place], [place] 1603405-14-2024 15:05-8298WgM8% (BldA) [Mass fraction]93 %Deonte ROSARIO 920-2196Wjvclj-Mfhxn[address] [place], [place] 5992505-14-2024 15:05-0400Systolic blood mm[Hg]Deonte ROSARIO [address] [place], [place] 1603404-24-2024 09:38-0400Blood Pressure LocationMehdialmasandrita Radu 410-5377Pmgswg-Sfoha[address] [place], [place] 5992504-24-2024 09:38-0400Body bbwffsutpjy03.14 [degF]Elvi Lovelace 756-9978Lugxtn-Mepca[address]04-24-2024 09:38-0400Diastolic blood grvxwofs58 mm[Hg]Elvinemesio Lovelace 970-4054Hiiqbc-Kcozh[address] [place], [place] 5992504-24-2024 09:38-0400Heart rate81 /minKeatonromanalmasandrita Radu 394-7351Kncqot-Sldjt[address] [place], [place] 5992504-24-2024 09:38-3990HfI8% (BldA) [Mass fraction]93 %Elvi Lovelace 809-0530Hcacep-Qkkuk[address] [place], [place] 5992504-24-2024 09:38-0400Systolic blood wotryfvb595 mm[Hg]Elvi Lovelace 946-0329Wqlusg-Wklcj[address] [place], [place] 5992503-22-2024 12:57-0400Blood Pressure LocationJozonia ROSARIO [address] [place], [place] 1603403-22-2024 12:57-0400Body eoenfmchwxz48.88 [degF]Deonte ROSARIO [address] [place], [place] 1603403-22-2024 12:57-0400Diastolic blood pycqwvun50 mm[Hg]Deonte ROSARIO [address] [place], [place] 1603403-22-2024 12:57-0400Heart rate77 /minDeonte RSOARIO [address] [place], [place] 1603403-22-2024 12:57-3339OtO3% (BldA) [Mass fraction]96 %Deonte ROSARIO [address] [place], [place] 1603403-22-2024 12:57-0400Systolic blood hhqiupkm220 mm[Hg]Deonte ROSARIO [address] [place], [place] 1603402-14-2024 09:11-0500Body .7 [degF][facility] 06-25-2023 09:11-0500Diastolic blood aovbwyrh97 mm[Hg][facility]02-14-2024 09:11-0500Heart rate91 /minAd[facility]02-14-2024 09:11-0500Respiratory rate17 /minCh[facility]02-14-2024 09:11-2352UvK8% (BldA) [Mass fraction]98 %[facility]02-14-2024 09:11-0500Systolic blood clvqybpr563 mm[Hg][facility]02-14-2024 08:21-0500Blood Pressure AldoRenettazonia PAULO [address] [place], [place] 1603402-14-2024 08:21-0500Body okqrogwkuma96.52 [degF]Deonte PAULO 550-2994Jigois-Cukbb[address] [place], [place] 5992502-14-2024 08:21-0500Diastolic blood qdelozge22 mm[Hg]Deonte PAULO [address] [place], [place] 1603402-14-2024 08:21-0500Heart rate84 /minDeonte ROSARIO [address] [place], [place] 1603402-14-2024 08:21-1215UiS2% (BldA) [Mass fraction]95 %Deonte ROSARIO [address] [place], [place] 1603402-14-2024 08:21-0500Systolic blood lwouniid357 mm[Hg]Deonte ROSARIO [address] [place], [place] 1603410-24-2023 13:11-0400Blood Pressure LocationJozonia ROSARIO [address] [place], [place] 1603410-24-2023 13:11-0400Diastolic blood dsjmohmc72 mm[Hg]Deonte ROSARIO [address] [place], [place] 1603410-24-2023 13:11-0400Heart rate76 /Irma ROSARIO [address] [place], [place] 1603410-24-2023 13:11-3767PjE5% (BldA) [Mass fraction]97 %Deonte ROSARIO [address] [place], [place] 1603410-24-2023 13:11-0400Systolic blood kmcwybvj830 mm[Hg]Deonte ROSARIO 729-8065Iipbrh-Tvmqu[address] [place], [place] 5992510-02-2023 14:25-0400Blood Pressure LocationMugilbert Peres [facility]10-02-2023 14:25-0400 Diastolic blood voapwpih45 mm[Hg]Wolf Myersmini [address] [place], [place] 9968510-02-2023 14:25-0400Heart rate79 /minMuhammad Sarmini [address] [place], [place] 8843510-02-2023 14:25-0400 Respiratory rate22 /minMuhammad Sarmini [address] [place], [place] 8843510-02-2023 14:25-9835OxF6% (BldA) [Mass fraction]97 %Bloom Sarmini [address] [place], [place] 9822110-02-2023 14:25-0400 Systolic blood gcbqymbt594 mm[Hg]Bloom Sarmini [address] [place], [place] 9822110-02-2023 14:20-0400Blood Pressure LocationMuhammad Sarmini [address] [place], [place] 9822110-02-2023 14:20-0400 Diastolic blood mm[Hg]Bloom Sarmini [address] [place], [place] 8843510-02-2023 14:20-0400Heart rate76 /minMuhammad Sarmini [address] [place], [place] 8843510-02-2023 14:20-0400 Respiratory rate20 /minMuhammad Sarmini [address] [place], [place] 8843510-02-2023 14:20-2129OnY4% (BldA) [Mass fraction]96 %Bloom Sarmini [address] [place], [place] 8843510-02-2023 14:20-0400 Systolic blood uxqkjhar892 mm[Hg]Bloom Sarmini [address] [place], [place] 8843510-02-2023 14:15-0400Blood Pressure LocationMuhammad Sarmini [address] [place], [place] 8843510-02-2023 14:15-0400 Diastolic blood dzqzrqve63 mm[Hg]Bloom Sarmini [facility]10-02-2023 14:15-0400Heart rate77 /minMuhammad Sarmini [facility]10-02-2023 14:15-0400 Respiratory rate16 /minMuhammad Sarmini [facility]10-02-2023 14:15-8656BrQ1% (BldA) [Mass fraction]97 %Bloom Sarmini [facility]10-02-2023 14:15-0400 Systolic blood lvqjydop464 mm[Hg]Bloom Sarmini [address] [place], [place] 8843510-02-2023 14:00-0400Body bsptleryicq06.7 [degF]Bloom Sarmini [facility]10-02-2023 13:55-0400 Respiratory rate16 /minMuhammad Sarmini [facility]10-02-2023 13:50-0400 Respiratory rate16 /minMuhammad Sarmini [facility]10-02-2023 13:44-0400 Respiratory rate10 /minMuhammad Sarmini [facility]10-02-2023 13:15-0400Body rvrwxutwevo53.52 [degF]Bloom Sarmini [facility]09-29-2023 12:59-0400Blood Pressure LocationJaromanynsandrita ler 586-6993Adwtts-NstmwSouthern [place] [facility] Primary Hpid77-25-6370 12:59-0400Body fxagdzhbrtx94.52 [degF]Elvi Lovelace 968-6945Uatnhn-FbbsdSt. [facility] Hospital09-29-2023 12:59-0400Diastolic blood jchalaph00 mm[Hg]Elvi Lovelace 906-0108Fgdohb-HdhfpSt. [facility] Hospital09-29-2023 12:59-0400Heart rate67 /minJacldeb Radu 673-1022Glfaqk-QiartSt. Charles Hospital09-29-2023 12:59-1268PfZ5% (BldA) [Mass fraction]97 %Elvi Lovelace 773-4591Xljeui-BnxhkSt. Charles Hospital09-29-2023 12:59-0400Systolic blood gvhcsyvc585 mm[Hg]Elvi Lovelace 681-7724Zkasqh-Weqmf[address] [place], [place] 5992508-01-2023 10:07-0400Blood Pressure LocationMuhammad Sarmini 526-2524Rgacou-YqzhfSamaritan Hospital08-01-2023 10:07-0400Diastolic blood ynpucyra14 mm[Hg]Bloom Sarmini 154-1738Rwhsav-HekwmSamaritan Hospital08-01-2023 10:07-0400Heart rate69 /minMuhammad Sarmini 065-2020Guvzkl-OllioSamaritan Hospital08-01-2023 10:07-0400Respiratory rate16 /minMuhammad Sarmini 971-2659Rcscvr-YyhhfSamaritan Hospital08-01-2023 10:07-2673KxJ2% (BldA) [Mass fraction]99 %Bloom Sarmini 037-5813Viszcb-FyiwjSamaritan Hospital08-01-2023 10:07-0400Systolic blood gevxpjjx844 mm[Hg]Bloom Sarmini 867-8966Dwngcu-LmqllSamaritan Hospital07-14-2023 13:57-0400Diastolic blood fucqorcz55 mm[Hg]Deonte ROSARIO [address] [place], [place] 1603407-14-2023 13:57-0400Mean blood yjvpntpm31 mm[Hg]Deonte PAULO [address] [place], [place] 1603407-14-2023 13:57-0400Systolic blood wpkaknmw771 mm[Hg]Deonte PAULO [address] [place], [place] 1603407-14-2023 13:53-0400Blood Pressure LocationJozonia PAULO [address] [place], [place] 1603407-14-2023 13:53-0400Body jmnomiqbfgz38.52 [degF]Deonte PAULO [address] [place], [place] 1603407-14-2023 13:53-0400Diastolic blood ibsevsiu34 mm[Hg]Deonte PAULO [address] [place], [place] 1603407-14-2023 13:53-0400Heart rate60 /minDeonte ROSARIO [address] [place], [place] 1603407-14-2023 13:53-7970WaQ5% (BldA) [Mass fraction]98 %Deonte ROSARIO [address] [place], [place] 1603407-14-2023 13:53-0400Systolic blood nvizzscr773 mm[Hg]Deonte ROSARIO [address] [place], [place] 1603403-22-2023 13:54-0400Blood Pressure LocationDeonte ROSARIO [address] [place], [place] 1603403-22-2023 13:54-0400Diastolic blood yxhkcyaw47 mm[Hg]Deonte ROSARIO [address] [place], [place] 1603403-22-2023 13:54-0400Heart rate84 /minDeonte ROSARIO [address] [place], [place] 1603403-22-2023 13:54-0400Respiratory rate18 /willieDeonte PAULO [address] [place], [place] 1603403-22-2023 13:54-8454LuU3% (BldA) [Mass fraction]98 %Deonte ROSARIO [address] [place], [place] 1603403-22-2023 13:54-0400Systolic blood ncaqbddq933 mm[Hg]Deonte ROSARIO [address] [place], [place] 1603403-22-2023 12:49-0400Blood Pressure LocationDeonte PAULO [address] [place], [place] 1603403-22-2023 12:49-0400Body .7 [degF]Deonte ROSARIO [address] [place], [place] 1603403-22-2023 12:49-0400Diastolic blood ujmijjnd12 mm[Hg]Deonte ROSARIO [address] [place], [place] 1603403-22-2023 12:49-0400Heart rate84 /willieDeonte PAULO [address] [place], [place] 1603403-22-2023 12:49-1566VtP5% (BldA) [Mass fraction]98 %Deonte ROSARIO 805-0520Ypxtew-Djaes[address] [place], [place] 5992503-22-2023 12:49-0400Systolic blood vtrkmcit535 mm[Hg]Deonte PAULO 971-0224Eysavi-Aqpkc[address] [place], [place] 5992502-09-2023 08:00-0500Body duayvljmeyf01.6 [degF]Rod Bhatti MD Work Phone: bon [facility]02-09-2023 08:00-0500Diastolic blood imddphsq35 mm[Hg]Rod Bhatti MD Work Phone: bon [facility]02-09-2023 08:00-0500Heart rate92 /Shimon Bhatti MD Work Phone: [facility]02-09-2023 08:00-0500 Respiratory rate23 /Shimon Bhatti MD Work Phone: [facility]02-09-2023 08:00-3793YnD5% (BldA) [Mass fraction]99 %Rod Bhatti MD Work Phone: [facility]02-09-2023 08:00-0500Systolic blood kchurllm475 mm[Hg]Rod Bhatti MD Work Phone: [facility]02-09-2023 06:00-0500Body mass index (BMI) [Ratio]23.86 kg/l9MdefjRod Bhatti MD Work Phone: [facility]02-09-2023 06:00-0500Body egvqkj57.05 kgRod Bhatti MD Work Phone: [facility]02-06-2023 08:00-0500Body ihnfer870.6 cmSsihmon Bhatti MD Work Phone: [facility]01-05-2023 13:20-0500Blood Pressure LocationJuancho [facility]01-05-2023 13:20-0500 Diastolic blood nqqkwlor06 mm[Hg]Juancho [facility]01-05-2023 13:20-0500Heart rate71 /Reyes [facility]01-05-2023 13:20-0500 Respiratory rate18 /Reyes [facility]01-05-2023 13:20-1685WpJ0% (BldA) [Mass fraction]98 %Juancho [facility]01-05-2023 13:20-0500 Systolic blood tghtwkig053 mm[Hg]Juancho [facility]12-21-2022 09:48-0500Blood Pressure AldoDeonte ROSARIO [phone]-[facility]giSt[facility]12[facility]-2022 09:48-0500Body fgeazavmnav05.06 [degF]Deonte PAULO [phone]-ZzeriSt. [facility]12-21-2022 09:48-0500Diastolic blood gkujjsgp38 mm[Hg]Deonte ROSARIO [phone]-XpvceSt. [facility]12-21-2022 09:48-0500Heart rate74 /Irma ROSARIO [phone]-RbiyrSt. [facility]12-21-2022 09:48-8638MuP7% (BldA) [Mass fraction]97 %Deonte PAULO [phone]-EiuleSt. [facility]12-21-2022 09:48-0500Systolic blood neyhzbqd422 mm[Hg]Deonte PAULO [phone]-ElyonSt. Charles Hospital11-07-2022 10:50-0500Diastolic blood gletsouv82 mm[Hg]Rosette SOSA [facility]11-07-2022 10:50-0500Heart rate91 /Alicia SOSA [facility]11-07-2022 10:50-0500 Respiratory rate20 /minMaher SALMICHAEL [facility]11-07-2022 10:50-4588RoM1% (BldA) [Mass fraction]96 %Rosette SOSA [facility]11-07-2022 10:50-0500 Systolic blood ogkinbtu359 mm[Hg]Rosette SOSA [facility]11-07-2022 10:35-0500 Diastolic blood kcvxtrya05 mm[Hg]Dinero SALAM [facility]11-07-2022 10:35-0500Heart rate78 /minMaher SALAM [facility]11-07-2022 10:35-0500 Respiratory rate15 /minMaher SALAM [address] [place], [place] [address]11-07-2022 10:35-8001AbZ2% (BldA) [Mass fraction]96 %Dinero SALAM [facility]11-07-2022 10:35-0500 Systolic blood shomjdqu122 mm[Hg]Dinero SALAM [facility]11-07-2022 10:30-0500 Diastolic blood beafeulk81 mm[Hg]Dinero SALAM [facility]11-07-2022 10:30-0500Heart rate78 /minMaher SALAM [facility]11-07-2022 10:30-0500 Respiratory rate16 /minMaher SALAM [facility]11-07-2022 10:30-3174VoI4% (BldA) [Mass fraction]97 %Dinero SALAM [facility]11-07-2022 10:30-0500 Systolic blood hkydzysv912 mm[Hg]Dinero SALAM [facility]11-07-2022 10:23-0500Blood Pressure LocationMaher SALAM [facility] [facility]11-07-2022 10:23-0500Body tjymycbmknz16.8 [degF]Dinero SALAM [address] [place], [place] [address]843511-07-2022 09:11-0500Blood Pressure LocationMaher SALAM [facility]11-07-2022 09:11-0500Body yexrrrapusx81.06 [degF]Dinero SALAM [facility]11-07-2022 09:11-0500 Respiratory rate22 /minMaher SALAM [facility]09-21-2022 10:52-0400Blood Pressure LocationMaher SALAM [phone]-Crkds[address] [place], [place] 8804509-21-2022 10:52-0400Diastolic blood oksflnqm63 mm[Hg]Dinero SALAM 279-9736Gjxiuy-LlvgvSam[facility]itan [facility]09-21-2022 10:52-0400Heart rate74 /minMaher SALAM [phone]-HhitqSamaritan Hospital09-21-2022 10:52-0400Respiratory rate16 /minMaher SALAM 235-7299Yhtveu-AczuqSamaritan Hospital09-21-2022 10:52-0400Systolic blood hlrfdldi150 mm[Hg]Dinero SALAM [phone]-WqjqySamaritan Hospital09-13-2022 11:40-0400Blood Pressure Asael ROSARIO 182-1508Eguwvm-AsureSt. Charles [facility]09-13-2022 11:40-0400Body euynyftqxsm63.7 [degF]Deonte ROSARIO 396-5348Tkvzge-NyczrSt. Charles Hospital09-13-2022 11:40-0400Diastolic blood fmmmtbgo42 mm[Hg]Deonte ROSARIO 869-5446Txnduz-VsilmSt. Charles Hospital09-13-2022 11:40-0400Heart rate71 /Irma ROSARIO 875-0334Syuhbo-Knxml[address] [place], [place] 6011909-13-2022 11:40-7701GzW2% (BldA) [Mass fraction]96 %Deonte ROSARIO 555-0951Hjeqzb-AqjoySt. Charles Hospital09-13-2022 11:40-0400Systolic blood rkzlajnv093 mm[Hg]Deonte ROSARIO 706-1589Ubozgw-YmtgaSt. Charles Hospital09-09-2022 13:40-0400Diastolic blood yrdbytsf61 mm[Hg]Juancho Catherine [facility]09-09-2022 13:40-0400Mean blood otipcwgb720 mm[Hg]Juancho Catherine [address] [place], [place] 5413909-09-2022 13:40-0400 Systolic blood moipqiuy319 mm[Hg]Juancho Catherine [address]09-09-2022 13:30-0400Blood Pressure LocationDarickie Catherine [address] [place], [place] 5413909-09-2022 13:30-0400 Diastolic blood xjzdcpji57 mm[Hg]Juancho Catherine [address] [place], [place] 5413909-09-2022 13:30-0400Heart rate87 /Reyes Catherine [facility]09-09-2022 13:30-0400 Respiratory rate18 /Reyes Catherine [facility]09-09-2022 13:30-0153KzQ4% (BldA) [Mass fraction]100 %Juancho Catherine [address] [place], [place] 5413909-09-2022 13:30-0400 Systolic blood pazzuamb587 mm[Hg]Juancho Catherine [address] [place], [place] 5413908-19-2022 10:17-0400Blood Pressure LocationDarickie Catherine [address] [place], [place] 5413908-19-2022 10:17-0400 Diastolic blood twodzrbi94 mm[Hg]Juanchojackson Catherine [facility]08-19-2022 10:17-0400Heart rate82 /Reenajackson Catherine [facility]08-19-2022 10:17-0400 Respiratory rate18 /Reyes Catherine [facility]08-19-2022 10:17-5682IbV4% (BldA) [Mass fraction]97 %Juancho Catherine [facility]08-19-2022 10:17-0400 Systolic blood ufgmxckc810 mm[Hg]Juancho Catherine [address] [place], [place] 5413907-22-2022 15:10-0400 Diastolic blood ffutazoz84 mm[Hg]Juancho Catherine [address] [place], [place] 5413907-22-2022 15:10-0400Mean blood hhdmagud856 mm[Hg]Juanchojackson Catherine [facility]07-22-2022 15:10-0400 Systolic blood mixetnma273 mm[Hg]Juanchojackson Catherine [facility]07-22-2022 15:00-0400Blood Pressure LocationDarickie Catherine [facility]07-22-2022 15:00-0400 Diastolic blood bcrxuslg80 mm[Hg]Juancho Catherine [address] [place], [place] 5413907-22-2022 15:00-0400Heart rate96 /Reyes Catherine [address] [place], [place] 5413907-22-2022 15:00-0400 Respiratory rate18 /Reyes Catherine [facility]07-22-2022 15:00-2508GiN0% (BldA) [Mass fraction]98 %Juancho Catherine [facility]07-22-2022 15:00-0400 Systolic blood xrdmaegk246 mm[Hg]Juancho Catherine [facility]06-08-2022 11:00-0400Blood Pressure Asael PAULO [phone]-TypihSouthern [facility] 06-08-2022 11:00-0400Body gvyeftosdcp46.88 [degF]Deonte ROSARIO [phone]-OsyqmSouthern [facility] 06-08-2022 11:00-0400Diastolic blood hytbydyf87 mm[Hg] Deonte ROSARIO 826-7891Vvxghl-QokjiSouthern [facility] 06-08-2022 11:00-0400Heart rate62 /Irma ROSARIO 971-2593Wkhqqk-GoiljSouthern [facility] 06-08-2022 11:00-6241AhJ2% (BldA) [Mass fraction]99 % Deonte PAULO 447-6379Rfooqu-QlgdqSouthern [facility] 06-08-2022 11:00-0400Systolic blood nmrazejc852 mm[Hg] Deonte ROSARIO 768-6345Pxgjid-HbzwcSouthern [facility] Encounters Encounter DateEncounter TypeCare ProviderFacilityStart: 26-18-0732xtbqxrdaxuZgdq K HUGHESFacility:Dana PCStart: 02-24-2025 End: 23-97-0026wpkfqzwnhdWrpkmtzi Talubaldo CmiFacility:Hoodus DHStart: 02-24-2025 End: 66-34-0670Fxpbdev encounter procedureMuhammad Talal Luciamini [phone]-GhefcSouthern [facility] Start: 02-08-2025 End: 73-55-8086jdhqvvcmssLgsyWai DolanOur [facility] Of [facility] Work Phone: Start: 02-08-2025 End: 37-83-7359Znvvmtgj ReferredRoss Dolan MD-Lab [facility] Work Phone: Start: 01-11-2025 End: 64-49-3559vtrovylncgMzxd K HUGHESFacility:Dana PCStart: 01-11-2025 End: 32-61-5738Bzosxdf encounter procedureDeonte ROSARIO [phone]-ZlbsbSouthern [facility] Start: 01-05-2025 End: 25-66-2321thmbavmbxvSBMJ NONEFacility:FTMCStart: 01-03-2025 End: 75-51-9875ncrpdrzmdvFtgurgf OthmanFacility:FTMCStart: 12-27-2024 End: 03-87-1199xciurkqbluYqojhi X SalemFacility:FTMCStart: 12-09-2024 End: 41-98-1779uoeiavstfqIurmqdvw Talal SarminiFacility:FTMCStart: 12-01-2024 End: 77-40-9178ryfukszewvFosjoe X SalemFacility:FTMCStart: 11-26-2024 End: 92-78-1864qinklmpoxyHGKC NONEFacility:FTMCStart: 11-24-2024 End: 56-25-4627RutfafCfrjsKenzie Easton MD Work Phone: NOKQ OPHTComment on above:Anterior corneal dystrophy of right eyeStart: 11-18-2024 End: 84-18-3992xeyrnzzrnzGhvcrct A. MouchliFacility:[facility] DHComment on above:Dry eyes, bilateralStart: 11-09-2024 End: 92-21-5026hwkjsgwshoYlxpvbqk Talal SarminiFacility:FTMCStart: 11-09-2024 End: 18-93-3928Hmzkmva encounter procedureMuhammad Talal Sarmini [facility] Start: 10-26-2024 End: 12-98-3236dpgwyvyjoqRewjmjqq Talal SarminiFacility:Parveen DHStart: 10-26-2024 End: 38-68-4910Pbihdqb encounter procedureMuhammad Talal Sarmini [phone]-EcocnSouthern [facility] Start: 10-20-2024 End: 60-12-6371lhrzxgxrjaFjkwr J SosinskiFacility:Anderson PCStart: 10-20-2024 End: 94-69-2517Chjcudv encounter Annemarie Rodriges [facility] [phone]-BhcxsSouthern [facility] Start: 87-46-1111ojdifazqojFgkzqy E. [place] Facility:Anderson PCStart: 60-57-3477pdhdhhoqymYmpsubj A. MouchliFacility:Srinath Vinson DHStart: 10-11-2024 End: 76-36-7884mwhxhwklgoNenc K HUGHESFacility:CD:[id number]: 10-07-2024 End: 16-07-3020byueuextckVvofactl J. AnderleFacility:FTMCStart: 10-07-2024 Emergency department patient Katharina MazaFacility:FTMCStart: 10-07-2024 End: 84-01-7366GxzmwrujuyoEhuckmqm J. Anderle [facility] Start: 10-07-2024 End: 48-31-6721nvktjomdboWxfj K HUGHESFacility:[facility] PCStart: 10-07-2024 End: 97-45-7128Smeinmu encounter Glendy ROSARIO [phone]-WodfjSouthern [facility] Start: 08-04-2024 End: 65-03-8794etjrbfxztwMijl K HUGHESFacility:Dana PCStart: 07-07-2024 End: 45-42-9022cawyveqkmvJwdq K HUGHESFacility:Dana PCStart: 07-07-2024 End: 30-13-2902Gqohupb encounter procedureDeonte ROSARIO [phone]-NibveSouthern [facility] Start: 06-30-2024 End: 53-00-5796voipcwwhblBybk K HUGHESFacility:FTMCStart: 06-30-2024 End: 06-14-4142Kbernoh encounter procedureDeonte ROSARIO [facility] Start: 04-12-2024 End: 68-56-7727xjslxzbackEsccfb X SalemFacility:FTMCStart: 04-12-2024 End: 38-80-0101Gpfzplb encounter procedureBashar X [place] [facility] Start: 03-29-2024 End: 56-59-7174ihnqccrserHykq K HUGHESFacility:Dana PCStart: 03-29-2024 End: 65-20-5018Pcmjnhk encounter procedureDeonte ROSARIO [phone]-WtpkoSouthern [facility] Start: 03-22-2024 End: 28-23-6552XmjtrkEprer M Allen MD Work Phone: NOFD NB OPHTComment on above: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)Start: 03-18-2024 End: 99-12-6679ieioxoludbBMUO NONEFacility:FTMCStart: 03-18-2024 End: 10-39-3810Tlgmzmg encounter procedureJonathon Espinoza [facility] Start: 02-27-2024 End: 87-70-1301swyxigdywpBjbeav X SalemFacility:FTMCStart: 02-27-2024 End: 51-94-5425Saknphd encounter procedureBashar X [place] [facility] Start: 02-05-2024 End: 61-20-0377fhpnpwmqkmVjywjl A SteinFacility:FTMCStart: 02-05-2024 End: 05-15-5677Swnpmfv encounter procedureDevantemirian Marquez Corey [facility] Start: 02-04-2024 End: 58-10-5112metoxqecvzFahi K HUGHESFacility:Dana PCStart: 02-04-2024 End: 14-23-8090Orclcgm encounter Glendy ROSARIO [phone]-YpwbnSouthern [facility] Start: 01-26-2024 End: 85-94-0485bsmswxfbbdDwno K HUGHESFacility:CD:[id number]: 01-21-2024 ambulatoryEmsundeep GarnicauFacility:FTMCStart: 01-21-2024 End: 63-87-4292Xluxupjzho and management of inpatientMD Jonathon Espinoza Facility:FTMCStart: 46-32-1978pymibgmcddBS Jonathon EspinozaFacility:FTMCStart: 01-21-2024 End: 67-41-4146Lbcaqqlqrh and management of inpatientEmmanuel Yamini MaiOhio State Health System Start: 01-16-2024 End: 28-95-6931kdqkpawytrStwf K HUGHESFacility:FTMCStart: 01-16-2024 End: 75-78-4884Wmqmtzu encounter procedureJonathon Espinoza [facility] Start: 12-31-2023 End: 80-87-1863tnpggzxmthMzgq K HUGHESFacility:Dana PCStart: 12-31-2023 End: 08-47-2955Xuugocm encounter procedureDeonte ROSARIO [phone]-VhqqlSouthern [facility] Start: 09-23-2023 End: 35-17-6629smpycrojlpYxfm K HUGHESFacility:Dana PCStart: 09-23-2023 End: 28-09-1813Cjnnqrn encounter procedureDeonte ROSARIO [phone]-SgfcvSouthern [facility] Start: 09-03-2023 End: 54-47-1857fbgqgzhscbJpigmyf Ursula LovelaceFacility:Dana PCStart: 09-03-2023 End: 59-91-8561Cfmolix encounter procedureElvi Ursula Lovelace [phone]-TezcsSouthern [facility] Start: 08-28-2023 End: 62-80-6461nnyiuwjpvoNbix K HUGHESFacility:CD:[id number]: 08-01-2023 End: 83-18-3528Pjsmfcz encounter procedureDeonte ROSARIO [phone]-ExpoeSouthern [facility] Start: 08-01-2023 End: 19-46-5984Jkdu adult monitoring check John ROSARIO [phone]-UppqzSouthern [facility] Start: 07-31-2023 End: 52-87-6080coifmtfuknBSXRQ M ALLENNot AvailableStart: 07-10-2023 End: 45-85-9793unjtyvqdvrJHNLK M ALLENNot AvailableStart: 07-03-2023 End: 87-62-2604qjfhymdngbVDJEM M ALLENNot AvailableStart: 06-26-2023 End: 91-95-2672dgdojchqouCIHOG M ALLENNot AvailableStart: 06-26-2023 End: 21-34-3815Cgvzoq outpatient visit 10 minutesEleonora Easton MD Work Phone: noms NB OPHTComment on above:Blepharospasm (Primary Dx); Anterior corneal dystrophy of right eyeStart: 06-25-2023 End: 41-39-0823qvvxzemotlTIARH M ALLENNot AvailableStart: 09-60-8666Nvwavu flowsMohan Easton MD Work Phone: noms NB OPHTStart: 55-29-9313Chtqmb Leonard Easton MD Work Phone: noms NB OPHTStart: 06-25-2023 End: 31-83-8106Iefntqs encounter Adrienne Easton MD Work Phone: noms NB OPHTComment on above: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); Abrasion of right cornea, initial encounterStart: 06-25-2023 End: 77-61-2355Mihhziwga department patient visitAstrit H [facility] Start: 06-25-2023 End: 52-60-6359Xzfbafs encounter procedureDeonte ROSARIO [phone]-UrhzxSouthern [facility] Start: 04-11-2023 End: 47-40-4311Cxmangf encounter procedureDeonte ROSARIO [phone]-DaljvSouthern [facility] Start: 03-04-2023 End: 94-72-4000Tyshnee encounter procedureDeonte ROSARIO [phone]-LqkenSouthern [facility] Start: 02-10-2023 End: 54-96-9736Sqclclf encounter procedureMugilbert Peres [facility] Start: 02-07-2023 End: 33-92-6937Jikbixg encounter procedureJaramy Lovelace [phone]-SmbzzSouthern [facility] Start: 12-10-2022 End: 36-57-8781Utwttwj encounter procedureMugilbert Peres [phone]-VbadtWilson Street [facility] Start: 11-22-2022 End: 81-63-5192Ahtgkyw encounter procedureDeonte ROSARIO [phone]-UtaqsSouthern [facility] Start: 09-20-2022 End: 67-59-1349yijsudfpjgSLShalom ROSARIOFacility:T8Orncl: 07-31-2022 End: 48-30-8632Bcmahok encounter procedureDeonte ROSARIO [phone]-KxxviSouthern [facility] Start: 07-31-2022 End: 67-06-4195Xnjo adult monitoring check doneDeonte ROSARIO [phone]-XlkagSouthern [facility] Start: 06-17-2022 End: 13-71-4708Egnsumaicy and management of inpatientJACK SCOTT [facility] Systemtart: 06-17-2022 End: 70-54-1685Iqjcfpclro and management of inpatientSshimon Bhatti MD Work Phone: stvz Car 3- MICUStart: 06-16-2022 End: 46-42-6036weuviwwwmoUKShalom ROSARIOFacility:I5Beobp: 05-16-2022 End: 91-30-5309Wwzazko encounter procedureDaniel J Catherine [facility] Start: 05-01-2022 End: 81-36-9854Siblfok encounter procedureDeonte ROSARIO [phone]-RcggsSouthern [facility] Start: 03-18-2022 End: 00-22-5392Ozswqtr encounter procedureMa SALAM [facility] Start: 01-30-2022 End: 88-15-2887Ezsmjbh encounter procedureMa SALAM [phone]-AskavWilson Street [facility] Start: 01-22-2022 End: 75-46-6549Yvfzyhf encounter procedureDeonte ROSARIO [phone]-DhszoSouthern [facility] Start: 01-18-2022 End: 05-77-3375Gzyozoz encounter procedureJuancho Catherine [facility] Start: 01-16-2022 End: 74-70-5280Hntcgac encounter procedureJuancho Catherine [facility] Start: 12-28-2021 End: 82-51-7565Dlhhoys encounter procedureJuancho Catherine [facility] Start: 11-30-2021 End: 04-26-2420Ahoqydr encounter procedureJuancho Catherine [facility] Start: 10-17-2021 End: 35-00-0254Dbylhlm encounter procedureDeonte ROSARIO [phone]-XjkxnSouthern [facility] Procedures DateProcedureProcedure DetailPerforming ClinicianStart: 57-01-3907Chdfsr Culture Result Ada Dolan MD Work Phone: Start: 26-90-6242Iskvnh Culture Result 3Ejulienne Dolan MD Work Phone: Start: 41-25-3724Yklwii Culture Result 4Ejulienne Dolan MD Work Phone: Start: 98-08-1144Kuwgheml SusceptibilityRoss Dolan MD Work Phone: Start: 40-97-7517TdzadnjqxkaccwnqvgrqxzooeuGwbk HUGHES Start: 35-86-5402Ykmqkkbwptlhbet of left heartEmmanWest Boca Medical CenterungwuStart: 25-96-4998Svvlgcuzwbkr coronary interventionEmCarolina Center for Behavioral Health Comment on above:stent x2 Left Main, stent x1 LADStart: 62-17-4624ANZJP METABOLIC PANEL W/ REFLEX TO MG FOR LOW KSleleq John Paul HINOJOSA Work Phone: Start: 29-59-0566Plkwt count complete auto&auto difrntl wbcAbebe Coker MD Work Phone: Start: 93-12-7831Oh thorax w/o contrast materialSmaya Coker MD Work Phone: Start: 37-04-8039Vdmkgivckj exam swallow function contrast studyAbebe Coker MD Work Phone: Start: 29-75-2932FBISK METABOLIC PANEL W/ REFLEX TO MG FOR LOW KSleleq John Paul HINOJOSA Work Phone: Start: 40-80-2927Gytbi count complete auto&auto difrntl wbcbAebe Coekr MD Work Phone: Start: 82-36-8398VRDIESF B12 & FOLATEAbebe Coker MD Work Phone: Start: 49-07-0023Wwmrf of ferritinSayana Coker MD Work Phone: Start: 97-33-0677EFYIM METABOLIC PANEL W/ REFLEX TO MG FOR LOW KSlleeq John Paul HINOJOSA Work Phone: Start: 98-52-0633YPHRWZKB PLATELET FRACTIONSmaya Coker MD Work Phone: Start: 05-02-8781Sxmublc blood reagent stripRaelver Riley MD Work Phone: Start: 65-27-7039BYPDV-19, RAPIDAbebe Coker MD Work Phone: Start: 87-60-0030Zqd routine ecg w/least 12 lds trcg only w/o i&rSayana Coker MD Work Phone: Start: 27-97-9423Efsyu s aureus methicillin resist amp probe tqJoao Todd MD Work Phone: Start: 66-73-0141Odotlstaxh exam chest single view Abebe Coker MD Work Phone: Start: 71-79-5370Y-reactive proteinSmaya Coker MD Work Phone: Start: 63-42-7873TSMKEVKM PLATELET FRACTIONSmaya Coker MD Work Phone: Start: 06-17-2022 End: 92-62-8998Zbxnhssimhk peptideSmaya Coker MD Work Phone: Start: 40-35-2095OiuzynllztzLmwdk SALAM Comment on above:Incomplete due to Poor PrepStart: 03-48-3128Objxddlcciqkvl ablation of medial branch of cervical nerve using fluoroscopic guidanceDeonte ROSARIO Comment on above:c3/c6 RFA 50% relief to presentStart: 66-44-9061bktdlcaj facet Medial Branch Block 2John PAULO Comment on above:bilat C3/4, 4/5, 5/6 facet MBB- 100% relief x 2 weeksStart: 89-56-1271pwfxjqfr facet Medial Branch Block 3Maher Nujira Comment on above:bilat C3/4, 4/5, 5/6 facet MBB- 100% relief x 2 weeksStart: 07-93-6846ddhqkepf facet Medial Branch Block 4Emmanuel OfungwuComment on above:bilat C3/4, 4/5, 5/6 facet MBB- 100% relief x 2 weeks Start: 80-29-6023Hipirecc Facet Medial Branch Block 3Johsandrita Flamsred Comment on above:b/l C3/4, C4/5, C5/6 100 % relief in pain X 1 hourStart: 81-59-7430Jyeqhskr Facet Medial Branch Block 4Maher Nujira Comment on above:b/l C3/4, C4/5, C5/6 100 % relief in pain X 1 hourStart: 51-39-3254Fzpijutt Facet Medial Branch Block 5Emmanuel OfungwuComment on above:b/l C3/4, C4/5, C5/6 100 % relief in pain X 1 hourStart: 94-25-9341libmdo facet medial branch block 4Jozonia ROSARIO Comment on above:B/L C3-C6 100% relief 4 days after injection that continuesStart: 48-10-9287cpqlcb facet medial branch block 5Maher SALRetrieve Comment on above:B/L C3-C6 100% relief 4 days after injection that continuesStart: 51-24-3444obigjh facet medial branch block 6 Jose G OfungwuComment on above:B/L C3-C6 100% relief 4 days after injection that continuesStart: 53-15-6809Yhhfpmkqotcilm ablation of medial branch of lumbar nerve using fluoroscopic guidanceDeonte ROSARIO Comment on above:b/l L3/4, :4/5 ,L5/S1 approx 80 % relief in pain after 1 week and still continues todayStart: 58-02-0710Bsibio Facet Medial Branch Block 6Johsandrita PAULO Comment on above:b/l L3/4, L4/5, lL5/S1 100 % relief day 1Start: 57-68-3372Gnwyim Facet Medial Branch Block 7Maher MURPHYAM Comment on above:b/l L3/4, L4/5, lL5/S1 100 % relief day 1Start: 49-27-3551Yexokb Facet Medial Branch Block 8Emmanuel OfungwuComment on above:b/l L3/4, L4/5, lL5/S1 100 % relief day 1Start: 35-87-7293Lxnvvagmk of facet joint using fluoroscopic guidanceDeonte ROSARIO Comment on above:b/l L3-S1 at least 80 % improvemnt in pain immediateStart: 85-98-8026Iqudhxkwzwl of blood vesselDeonte PAULO Comment on above:right and stent placedStart: 66-68-5589AlmlnkhvyweJofv HUGHES Start: 87-90-6212Fftkg Cath.Deonte ROSARIO angioplasty of left leg arteryDeonte ROSARIO appendectomyDeonte ROSARIO Carotid endarterectomyDeonte ROSARIO Dilation and curettage of uterusDeonte ROSARIO EGD 10Maher SOSA Comment on above:10/2010EGD 11Emmanuel OfungwuComment on above:10/2010EGD 9Deonte ROSARIO Comment on above:10/2010EsophagogastroduodenoscopyMuevangelical community hospitalmichael Peres Comment on above:esophageal dilation , large hiatal hernia , Schatzki ringExcision of bunionDeonte ROSARIO Extraction of cataractDeonte ROSARIO Fluoroscopic angiography of carotid arteryJozonia ROSARIO History of appendectomyAppendectomy( Confirmed )Deonte ROSARIO kidney artery left stent placementDeonte ROSARIO Removal of ovarian cystDeonte ROSARIO Stents, bilateral legsJozonia ROSARIO Plan of Treatment DateCare ActivityDetailAuthorStart: 52-50-5808oqsgkseomkIrdtcyaiyt Facility:[facility] PCStart: 23-72-8971Ppe CultureEye CultureMercy Health St. Rita's Medical Centertart: 37-42-5869Tonvgj Culture Result 1Fungal Culture Result [address] [facility] Centertart: 18-61-6646Nbbxsdfo CultureMycology CultureMercy Health St. Rita's Medical Centertart: 60-67-6656Oephdv specific culture [facility] Centertart: 15-40-4988ZvqxzbynlMercy Health St. Rita's Medical Centertart: 08-07-0864Chtecpdxf vaccinationInfluenza Vaccine (#1)[facility] HealthcareStart: 42-52-0529Iqvscqrgg vaccinationInfluenza Vaccine (#1)[facility] HealthcareStart: 06-30-2023 End: 59-44-7556Iupmtgh encounter fwpyugmrj14/19/2024 9:45 AM EST Office Visit [facility] [address] [place] [address] Alessio Amezquita DO [address] [place] [address] [facility] ALINE OPHTStart: 06-26-2023 End: 75-90-9806Kxswuey encounter acekrdyrn67/15/2024 1:00 PM EST Office Visit [facility] [address] [place] [phone] Eleonora Easton MD [address] [place] [address] [facility] OPHTStart: 06-25-2023 End: 25-32-8209Nsadkyv encounter kawddxpac02/14/2024 1:15 PM EST Office Visit [facility] [address] [place] [phone] Eleonora Easton MD [address] [place] [address] ArrivedNOPHELPS HEALTH OPHTComment on above:ArrivedStart: 06-17-2022 Annual Wellness Visit (AWV)Annual Wellness Visit (AWV)[facility] Start: 69-32-2692DBOZG-19 Vaccine (5 - Booster for Pfizer series)COVID-19 Vaccine (5 - Booster for Pfizer series)[facility]: 10-[facility]1991 Screening for osteoporosisDEXA (modify frequency per FRAX score)[facility]Start: 27-65-5306Koeeiwhk vaccine (1 of 2)Shingles vaccine (1 of 2) [facility]Start: 29-04-7213JKtI/Tdap/Td vaccine (1 - Tdap) DTaP/Tdap/Td vaccine (1 - Tdap)[facility] 1947 Depression ScreenDepression ScreenBON [facility]ITALStart: 49-95-0133Shwkb panelLipidsBON AVITA [facility]ALTH SYSTEM BUCYRUS HOSPITALAmniotic Membrane Graft, Self-Retaining - OD - Right EyeAmniotic Membrane Graft, Self-Retaining - OD - Right Eye Ophthalmology Routine Anterior corneal dystrophy of right eye Abrasion of right cornea, initial encounter Ordered: 06/25/2023[facility] Work Phone: comment on above:Ordered: 06/25/2023Fungus identified in Unspecified specimen by [facility]Fire[facility] End: 38-62-1373ICHOHT BLOOD SCREENOCCULT BLOOD SCREEN Lab Routine One Time for 1 Occurrences starting 06/18/2022 until 06/18/2022[employer] Work Phone: comment on above:One Time for 1 Occurrences starting 06/18/2022 until 06/18/2022Oxygen therapy [Minimum Data Set]Initiate Oxygen Therapy Protocol Respiratory Care Routine As Needed until discontinued starting 06/17/2022[employer] Work Phone: combjea on above:As Needed until discontinued starting 06/17/2022 End: [id number] care evaluation onlyRespiratory care evaluation only Respiratory Care Routine One Time for 1 Occurrences starting 06/17/2022 until 06/17/2022[employer] Work Phone: comment on above:One Time for 1 Occurrences starting 06/17/2022 until 06/17/2022 End: [id number] clinical swallow evaluationSLP clinical swallow evaluation PASTRY WRAPPER Routine One Time for 1 Occurrences starting 06/17/2022 until 06/17/2022[employer] Work Phone: comment on above:One Time for 1 Occurrences starting 06/17/2022 until 06/17/2022 Immunizations Immunization DateImmunizationNotesCare NqaknjtuXpwznwfg43-84-8160spvhaarov virus vaccine, unspecified formulationDeonte ROSARIO [phone]-BjkwvSouthern [facility] Primary Wque95-55-5514 pneumococcal 20-valent conjugate vaccineDeonte ROSARIO [phone]-FsssjSouthern [facility] Primary Mams09-77-1378 zoster vaccine recombinantDeonte ROSARIO [phone]-XxbocSt. [facility]10-24-2023 influenza, high dose seasonal, preservative-freeDeonte ROSARIO [phone]-AqdvySt. Charles Hospital10-24-2023 influenza virus vaccine, unspecified formulationEleonora Easton MD Work Phone: [facility] [id number]-HdL-7 (COVID-19) mRNAMUL.ORD![id number] Radu [phone]-VwdqfSouthern [facility] Primary Ctif17-00-0985 influenza, high dose seasonal, preservative-freeDeonte ROSARIO [phone]-BphiiSouthern [facility] Primary Cgsb25-10-1166 influenza virus vaccine, unspecified formulationMaher SALAM [phone]-WppiaSouthern [facility] Kxpygm11-69-5628 COVID-19, mRNA, LNP-S, PF, 30 mcg/0.3 mL doseDeonte ROSARIO [phone]-SajifSouthern [facility] [id number] conjugate vaccine, 13 valentDeonet ROSARIO [phone]-RekggSouthern [facility] [phone], high dose seasonal, preservative-freeDeonet ROSARIO [phone]-GxughSouthern [facility] [id number]-KsO-2 (COVID-19) mRNA BNT-162b2 vaUnruly ROSARIO [phone]-QxdziSouthern [facility] Comment on above:Result Comment: Cbfzuynw35-59-2211 pneumococcal polysaccharide vaccine, 23 valentDeonte ROSARIO [phone]-PjvptSouthern [facility] [id number]-BrX-1 (COVID-19) mRNA BNT-162b2 vaxDeonte ROSARIO [phone]-NecjgSouthern [facility] Comjfzj on above:Result Comment: Jqwiymyn90-94-5732 canakinumabDeonte ROSARIO [phone]-UqlvtSouthern [facility] Comnnwe on above:Result Comment: COVID 19 PFIZER 67-14-7724QIWS-CoV-2 (COVID-19) mRNA BNT-162b2 vaxMaher SALAM [phone]-IzzffSouthern [facility] HealthComment on above:Result Comment: 2022-01-29: [id number] virus vaccine, unspecified formulationRenettazonia PAULO [phone]-UerpeSouthern [facility] [id number] virus vaccine, unspecified formulationMaher SALAM [phone]-YoahiSamaritan Hospital11-07-2019 influenza virus vaccine, unspecified formulationMaher SALAM 351-1902Shbprf-TtnopSouthern [facility] Sehwlz86-00-4926 influenza virus vaccine, live, attenuated, for intranasal useRenettazonia PAULO 302-0715Enjofk-SfsoeSouthern [facility] [id number] virus vaccine, unspecified formulationMaher SALAM 123-0867Dhmaqo-HktqmSamaritan Hospital10-07-2016 influenza virus vaccine, unspecified formulationMaher SALAM 256-9485Zckwna-OjmoqSouthern [facility] Ecslma84-72-5303 pneumococcal conjugate vaccine, 13 valTyra PAULO 319-9279Yyrjng-UfufrSouthern [facility] [id number] conjugate vaccine, 13 valentDeonte ROSARIO 420-5479Dqutpx-VprgzSouthern [facility] [id number] polysaccharide vaccine, 23 valentDeonte ROSARIO 669-2264Grytbm-TlrtmSouthern [facility] Comment on above:Reason for Medication: Other (see comment) Payers DatePayer CategoryPayerPolicy [id number] 2024Medicaid [id number] [id number] 1.2.840.3109[id number] 2002Medicare 1.2.840.832604.1.13.693.2.7.3.931221.315 [id number] 1.2.840.520673.1.13.239.2.7.3.139[id number] 2.16.840.1.652558.3.579.2.03387-66-8028Pxphtrg7088015 2.16.840.1.549291.3.579.2.00616-20-7072Xeoyxsf3002683 2.16.840.1.904043.3.579.2.09336-35-3072Pvirvge5125455 2.16.840.1.578571.3.579.2.248471-95-0941Opyclqi3339104 2.16.840.1.160476.3.579.2.568552-62-0771Zheznkl1840060 2.16.840.1.985302.3.579.2.427880-63-2978Vebhkql8182795 2.16.840.1.446057.3.579.2.133616-99-0734Pnrkfha5800250 2.16.840.1.643846.3.579.2.951676-91-0569Olymlel05727619 2.16.840.1.725298.3.579.2.19055-88-5119Fcnfvnz42906549 2.16.840.1.683115.3.579.2.14547-16-5827Yiyytwu21498321 2.16.840.1.515847.3.579.2.15120-50-7646Nlnrkgj02657401 2.16.840.1.358146.3.579.2.63175-97-3164Noknlgw24986537 2.16.840.1.796136.3.579.2.65090-11-9761Fqsctsk44591661 2.16.840.1.506038.3.579.2.99844-51-5743Tloiobp38045515 2.16.840.1.550702.3.579.2.79965-11-3738Ezdmpdm07006007 2.16.840.1.544605.3.579.2.79070-24-5517Ztukpqy99356844 2.16.840.1.449085.3.579.2.82257-22-4808Uykdbjg22734132 2.16.840.1.194138.3.579.2.45199-67-0914Gshwsvj96536726 2.16.840.1.173067.3.579.2.56822-93-4130Rnlkfjm33780512 2.16.840.1.562758.3.579.2.76817-64-6937Ofgmcgp36830413 2.16.840.1.652284.3.579.2.89437-75-1723Eykcqgu81050893 2.16.840.1.735639.3.579.2.35867-13-2353Ibqyxbh71239187 2.16.840.1.247252.3.579.2.46317-09-4835Mxflkgz80341758 2.16.840.1.189471.3.579.2.01051-32-1404Sixafdf46556987 2.16.840.1.215405.3.579.2.23579-03-2948Ninejvs99924017 2.16.840.1.104633.3.579.2.95730-15-5756Dslivvw13796951 2.16.840.1.368221.3.579.2.05154-95-4030Tgaudwd04416127 2.16.840.1.361731.3.579.2.31037-92-1776Irudpfa64772630 2.16840.1.943634.3.579.2.17088-37-7774Tvlbrun08510790 2.16840.1.075198.3.579.2.45217-10-0931Fuvruho25615203 2.16.840.1.191416.3.579.2.24994-78-9061Zciajvv95251605 2.16.840.1.413976.3.579.2.94963-46-5976Qvajlgi87657129 2.16840.1.824202.3.579.2.92155-00-0862Guerkrx84959122 2.16.840.1.255366.3.579.2.40131-07-4685Buphmly23053471 2.16.840.1.505968.3.579.2.55208-19-5028Hlcbjfy49007616 2.16.840.1.341501.3.579.2.06245-09-6981Rgukwiu71439887 2.16.840.1.332308.3.579.2.78487-71-6397Jileski31872156 2.16.840.1.692500.3.579.2.49241-23-9644Eldjhbe50458746 2.16.840.1.457031.3.579.2.42988-93-5621Byusnjv69321017 2.16.840.1.885750.3.579.2.60753-87-2034Zhoymgp07100473 2.16.840.1.126818.3.579.2.96461-47-1439Dbfzsne06691270 2.16.840.1.283568.3.579.2.94306-48-5645Yqfohvs77197219 2.16.840.1.887136.3.579.2.12006-63-1563Cbrlyqt90433349 2.16.840.1.428451.3.579.2.47724-87-0495Nvmgxzw37360303 2.16.840.1.668810.3.579.2.91977-81-1042Bxuobuv15869084 2.16.840.1.066957.3.579.2.20013-02-5125Bmtgmji30398127 2.16.840.1.934700.3.579.2.00383-33-0596Tpjyxch78571774 2.16.840.1.004508.3.579.2.943Wanuxsd94961072 2.16.840.1.265975.3.579.2.531 Social History DateTypeDetailFacilityStart: 07-03-2021 End: 50-82-1797Ifjcipk smoking statusNever smoked tobacco (finding)[facility] Comment on above:denies useTobacco smoking statusNever [facility] Comment on above:denies useStart: 16-44-3049Ngn Assigned At [facility] Tobacco smoking status NHISTobacco smoking consumption unknownNOMN HealthcareStart: 97-17-3605Wio Assigned At BirthNot on [facility] Work Phone: start: 35-83-4214Bsehgxg of Social functionNOMN HealthcareSexual OrientationSouthern [facility] Start: 79-31-6697JtpVipdrc (finding)[facility]art: 25-98-2846Djl Assigned At [facility] Medical Equipment Procedure CodeEquipment CodeEquipment Original TextEquipment IdentifierDatesPCI Unknown 01/21/24 Non Biological Left Main Coronary ArteryFDAStart: 01-21-2024 Comment on above:3.9p25EZNWppdi: 25-09-4727Psirywj on above:2.0x66SBZ LM Unknown 01/21/24 Non Biological Left Main Coronary ArteryFDAStart: 26-25-6759Umncspq on above:3.9e36NJI Unknown 01/21/24 Non Biological Left Main Coronary ArteryFDA Start: 07-71-2180Pdfzmal on above:3.8d28LZZMfhdu: 93-67-5436Kyoramh on above: 2.2l40FZN LM Unknown 01/21/24 Non Biological Left Main Coronary ArteryFDAStart: 20-25-1329Aocrjbq on above:3.5h68FJL Unknown 01/21/24 Non Biological Left Main Coronary ArteryFDAStart: 58-04-6313Exvnprc on above:3.7g00ITUFsixb: 01-21-2024 Comment on above:2.8n31JGJ LM Unknown 01/21/24 Non Biological Left Main Coronary ArteryFDAStart: 12-97-9104Ebfpgzb on above:3.4l36XVR Unknown 01/21/24 Non Biological Left Main Coronary ArteryFDAStart: 10-30-4008Aydkqob on above:3.0x18 FDAStart: 17-30-6708Wbzluyg on above:2.7n07NFH LM Unknown 01/21/24 Non Biological Left Main Coronary ArteryFDAStart: 43-45-7258Erjwwfk on above:3.2y25CHM Unknown 01/21/24 Non Biological Left Main Coronary ArteryFDAStart: 84-65-2459Msainvy on above:3.1y94HMDFxpzc: 01-36-8942Fresuop on above:2.6g55PUT LM Unknown 01/21/24 Non Biological Left Main Coronary ArteryFDAStart: 75-96-0983Nhwotgi on above: 3.1j67KVH Unknown 01/21/24 Non Biological Left Main Coronary ArteryFDAStart: 48-24-6774Xgcuzup on above:3.3x97BXDGgysp: 15-43-4894Gbxigox on above:2.2l49XYH LM Unknown 01/21/24 Non Biological Left Main Coronary ArteryFDAStart: 01-21-2024 Comment on above:3.5k54JNB Unknown 01/21/24 Non Biological Left Main Coronary ArteryFDAStart: 35-22-2139Legvdxf on above:3.4l13BCFJfcut: 72-33-6850Inzynor on above:2.5s01XLP LM Unknown 01/21/24 Non Biological Left Main Coronary ArteryFDA Start: 18-40-0816Vaqkfqw on above:3.6q43WOT Unknown 01/21/24 Non Biological Left Main Coronary ArteryFDAStart: 40-66-0571Tevzqhy on above:3.0l40PSGAoutb: 77-44-1060Dvoemoe on above:2.3c32NUJ LM Unknown 01/21/24 Non Biological Left Main Coronary ArteryFDAStart: 16-83-2519Jtdivvm on above:3.2k75OML Unknown 01/21/24 Non Biological Left Main Coronary ArteryFDAStart: 11-39-3402Osorwch on above: 3.8s09GUKPurvx: 11-45-3474Lrixbzn on above:2.6e62QPD LM Unknown 01/21/24 Non Biological Left Main Coronary ArteryFDAStart: 85-42-9819Rkidulo on above:3.0x18 PCI Unknown 01/21/24 Non Biological Left Main Coronary ArteryFDAStart: 01-21-2024 Comment on above:3.3x80ZZTDysho: 22-78-5869Semceyn on above:2.0o28CEK LM Unknown 01/21/24 Non Biological Left Main Coronary ArteryFDAStart: 26-32-4794Qalujuc on above:3.6m01QJB Unknown 01/21/24 Non Biological Left Main Coronary ArteryFDA Start: 51-23-4841Ccimrux on above:3.8v73XMGHtqkd: 58-14-3297Zavwdiu on above: 2.4t42JBA LM Unknown 01/21/24 Non Biological Left Main Coronary ArteryFDAStart: 21-02-3051Hxocynf on above:3.7u36GXJ Unknown 01/21/24 Non Biological Left Main Coronary ArteryFDAStart: 29-03-8117Xybafkk on above:3.6q22QGFArcen: 01-21-2024 Comment on above:2.2l64BRM LM Unknown 01/21/24 Non Biological Left Main Coronary ArteryFDAStart: 66-34-9246Ylmhafq on above:3.8u37XMD Unknown 01/21/24 Non Biological Left Main Coronary ArteryFDAStart: 56-58-0124Tbusauz on above:3.0x18 FDAStart: 03-29-8356Qtwbwyf on above:2.1r26KDZ LM Unknown 01/21/24 Non Biological Left Main Coronary ArteryFDAStart: 95-49-7164Dshsgzy on above:3.3l13BGW Unknown 01/21/24 Non Biological Left Main Coronary ArteryFDAStart: 47-00-1968Xxpriyo on above:3.3f32VEOUyopa: 97-84-5401Klsvziy on above:2.7i07MDK LM Unknown 01/21/24 Non Biological Left Main Coronary ArteryFDAStart: 31-34-9576Bfuvyga on above: 3.7l51RTX Unknown 01/21/24 Non Biological Left Main Coronary ArteryFDAStart: 70-01-5451Uqgnukh on above:3.9b71SDEZizut: 21-78-3308Fswtxkc on above:2.9o65GHI LM Unknown 01/21/24 Non Biological Left Main Coronary ArteryFDAStart: 01-21-2024 Comment on above:3.5t14COW Unknown 01/21/24 Non Biological Left Main Coronary ArteryFDAStart: 67-24-7776Qrqscdr on above:3.8t65RTSTzpqm: 10-53-4249Mvuyjvl on above:2.2d25SRW LM Unknown 01/21/24 Non Biological Left Main Coronary ArteryFDA Start: 07-77-3193Esmgrwp on above:3.4p4829821136938045GHWQulls: 11-22-2020 Femoral artery closure plug/patch, synthetic polymer [id number] FDAStart: 53-31-4263GXB Unknown 01/21/24 Non Biological Left Main Coronary ArteryFDAStart: 61-71-2619Nxjdylk on above:3.0x18 FDAStart: 17-54-8712Opnfukx on above:2.5l03LZQ LM Unknown 01/21/24 Non Biological Left Main Coronary ArteryFDAStart: 03-60-9755Xpsttyr on above:3.0x18 Goals DatePatient GoalDesired Activity/Yhnyo39-17-1985 Functional Status TsqvEcwvqiqzcsEwxxmhUbihvcmz81-47-5236Thkfrohrji StatusN/[facility]11-18-2024Functional StatusN/[facility]11-07-2024Functional StatusN/[facility] 71-06-3075Ukihckygmb StatusCent[place]09-26-20[place]Functional StatusN/[facility]09-25-2024Functional StatusN/[facility] Cpmg15-03-4819Sgyjxwgsgd StatusCent[place]09-06-2024Functional [facility]-21-2024 Functional StatusN/[facility] Htyy04-21-6817Roqbdueqbk StatusNSamaritan Hospital Primary Pfnc81-90-2530Oiltfgtuet StatusN/A [facility] Cddb93-45-6167Hcziqwxayz StatusN/[facility] Vycx81-47-7995Nehlkuisku StatusN/[facility]10-24-2023Functional StatusN/[facility]10-02-2023Functional StatusN/[facility] 53-58-5133Keiwiwnyfm StatusN/[facility]08-01-2023 Functional StatusN/[facility] Bqyewu98-32-0986 Functional StatusN/[facility]03-22-2023Functional StatusN/[facility]03-22-2023Functional Status [facility]01-05-2023Functional StatusN/[facility]12-21-2022Functional StatusN/[facility]11-07-2022Functional StatusN/[facility] 04-55-7567Esuajzvjif StatusN/[facility] 52-06-0020Vbntqfqhvq StatusN/[facility]09-09-2022 Functional StatusN/[facility]08-19-2022Functional StatusN/A [facility]07-22-2022Functional StatusN/[facility] Clinical Notes 01-05-2020 to 01-11-2025 Note Date & ArzoAuxvDtecjddb60-37-4851 Hospital Discharge instructions Patient Education 01/11/2025 12:03:13 High Cholesterol High Cholesterol High cholesterol is a condition in which the blood has high levels of a white, waxy substance similar to fat (cholesterol). The liver makes all the cholesterol that the body needs. The human body needs small amounts of cholesterol to help build cells. A person gets extra or excess cholesterol from the food that he or she eats. The blood carries cholesterol from the liver to the rest of the body. If you have high cholesterol,deposits (plaques) may build up on the sahu of your arteries. Arteries are the blood vessels that carry blood away from your heart. These plaques make the arteries narrow and stiff. Cholesterol plaques increase your risk for heart attack and stroke. Work with your health care provider to keep your cholesterol levels in a healthy range. What increases the risk? The following factors may make you more likely to develop this condition: Eating foods that are high in animal fat (saturated fat) or cholesterol. Being overweight. Not getting enough exercise. A family history of high cholesterol (familial hypercholesterolemia). Use of tobacco products. Having diabetes. What are the signs or symptoms? In most cases, high cholesterol does not usually cause any symptoms. In severe cases, very high cholesterol levels can cause: Fatty bumps under the skin (xanthomas). A white or hansen ring around the black center (pupil) of the eye. How is this diagnosed? This condition may be diagnosed based on the results of a blood test. If you are older than 20 years of age, your health care provider may check your cholesterol levels every 4 6 years. You may be checked more often if you have high cholesterol or other risk factors for heart disease. The blood test for cholesterol measures: Bad cholesterol, or LDL cholesterol. This is the main type of cholesterol that causes heart disease. The desired level is less than 100 mg/dL (2.59 mmol/L). Good cholesterol, or HDL cholesterol. HDL helps protect against heart disease by cleaning the arteries and carrying the LDL to the liver for processing. The desired level for HDL is 60 mg/dL (1.55 mmol/L) or higher. Triglycerides. These are fats that your body can store or burn for energy. The desired level is less than 150 mg/dL (1.69 mmol/L). Total cholesterol. This measures the total amount of cholesterol in your blood and includes LDL, HDL, and triglycerides. The desired level is less than 200 mg/dL (5.17 mmol/L). How is this treated? Treatment for high cholesterol starts with lifestyle changes, such as diet and exercise. Diet changes. You may be asked to eat foods that have more fiber and less saturated fats or added sugar. Lifestyle changes. These may include regular exercise, maintaining a healthy weight, and quitting use of tobacco products. Medicines. These are given when diet and lifestyle changes have not worked. You may be prescribed astatin medicine to help lower your cholesterol levels. Follow these instructions at home: Eating and drinking Eat a healthy, balanced diet. This diet includes: ? Daily servings of a variety of fresh, frozen, or canned fruits and vegetables. ?Daily servings of whole grain foods that are rich in fiber. ?Foods that are low in saturated fats and trans fats. These include poultry and fish without skin, lean cuts of meat, and low-fat dairy products. ?A variety of fish, especially oily fish that contain omega-3 fatty acids. Aim to eat fish at least2 times a week. Avoid foods and drinks that have added sugar. Use healthy cooking methods, such as roasting, grilling, broiling, baking, poaching, steaming, and stir-frying. Do not galeano your food except for stir-frying. If you drink alcohol: ?Limit how much you have to: ?0 1 drink a day for women who are not . ?0 2 drinks a day for men. ?Know how much alcohol is in a drink. In the [place] one drink equals one 12 oz bottle of beer (355 mL), one 5 oz glass of wine (148 mL), or one 1 oz glass of hard liquor (44 mL). Lifestyle Get regular exercise. Aim to exercise for a total of 150 minutes a week. Increase your activity level by doing activities such as gardening, walking, and taking the stairs. Do not use any products that contain nicotine or tobacco. These products include cigarettes, chewing tobacco, and vaping devices, such as e-cigarettes. If you need help quitting, ask your health careprovider. General instructions Take tqxn-ppw-ffontjh and prescription medicines only as told by your health care provider. Keep all follow-up visits. This is important. Where to find more information [place] [employer]: www.heart.org National Heart, Lung, and Blood [place]: www.nhlbi.nih.gov Contact a health care provider if: You have trouble achieving or maintaining a healthy diet or weight. You are starting an exercise program. You are unable to stop smoking. Get help right away if: You have chest pain. You have trouble breathing. You have discomfort or pain in your jaw, neck, back, shoulder, or arm. You have any symptoms of a stroke. BE FAST is an easy way to remember the main warning signs of astroke: ?B - Balance. Signs are dizziness, sudden trouble walking, or loss of balance. ?E - Eyes. Signs are trouble seeing or a sudden change in vision. ?F - Face. Signs are sudden weakness or numbness of the face, or the face or eyelid drooping on oneside. ?A - Arms. Signs are weakness or [...] not drive yourself to the hospital. Summary Cholesterol plaques increase your risk for heart attack and stroke. Work with your health care provider to keep your cholesterol levels in a healthy range. Eat a healthy, balanced diet, get regular exercise, and maintain a healthy weight. Do not use any products that contain nicotine or tobacco. These products include cigarettes, chewing tobacco, and vaping devices, such as e-cigarettes. Get help right away if you have any symptoms of a stroke. This information is not intended to replace advice given to you by your health care provider. Make sure you discuss any questions you have with your health care provider. Document Revised: 11/29/2022 Document Reviewed: 07/02/2021 [employer] Patient Education 2023 [employer]. Follow Up Care 10/07/2024 11:01:29 With:PAULO HINOJOSA, Deonte Turpin, [facility] Address: [facility] [address], [place] [address]- When:Within 3 Month(s) [facility] 09-02-2025 NotePatient Education Nutrition High Cholesterol High cholesterol is a condition in which the blood has high levels of a white, waxy substance similar to fat (cholesterol). The liver makes all the cholesterol that the body needs. The human body needs small amounts of cholesterol to help build cells. A person gets extra or excess cholesterol from the food that he or she eats. The blood carries cholesterol from the liver to the rest of the body. If you have high cholesterol,deposits (plaques) may build up on the sahu of your arteries. Arteries are the blood vessels that carry blood away from your heart. These plaques make the arteries narrow and stiff. Cholesterol plaques increase your risk for heart attack and stroke. Work with your health care provider to keep your cholesterol levels in a healthy range. What increases the risk? The following factors may make you more likely to develop this condition: ??? Eating foods that are high in animal fat (saturated fat) or cholesterol. ??? Being overweight. ??? Not getting enough exercise. ??? A family history of high cholesterol (familial hypercholesterolemia). ??? Use of tobacco products. ??? Having diabetes. What are the signs or symptoms? In most cases, high cholesterol does not usually cause any symptoms. In severe cases, very high cholesterol levels can cause: ??? Fatty bumps under the skin (xanthomas). ??? A white or hansen ring around the black center (pupil) of the eye. How is this diagnosed? This condition may be diagnosed based on the results of a blood test. ??? If you are older than 20 years of age, your health care provider may check your cholesterol levels every 4?6 years. ??? You may be checked more often if you have high cholesterol or other risk factors for heart disease. The blood test for cholesterol measures: ??? Bad cholesterol, or LDL cholesterol. This is the main type of cholesterol that causes heart disease. The desired level is less than 100 mg/dL (2.59 mmol/L). ??? Good cholesterol, or HDL cholesterol. HDL helps protect against heart disease by cleaning thearteries and carrying the LDL to the liver for processing. The desired level for HDL is 60 mg/dL (1.55 mmol/L) or higher. ??? Triglycerides. These are fats that your body can store or burn for energy. The desired level isless than 150 mg/dL (1.69 mmol/L). ??? Total cholesterol. This measures the total amount of cholesterol in your blood and includes LDL, HDL, and triglycerides. The desired level is less than 200 mg/dL (5.17 mmol/L). How is this treated? Treatment for high cholesterol starts with lifestyle changes, such as diet and exercise. ??? Diet changes. You may be asked to eat foods that have more fiber and less saturated fats or added sugar. ??? Lifestyle changes. These may include regular exercise, maintaining a healthy weight, and quitting use of tobacco products. ??? Medicines. These are given when diet and lifestyle changes have not worked. You may be prescribed a statin medicine to help lower your cholesterol levels. Follow these instructions at home: Eating and drinking ??? Eat a healthy, balanced diet. This diet includes: ? Daily servings of a variety of fresh, frozen, or canned fruits and vegetables. ? Daily servings of whole grain foods that are rich in fiber. ? Foods that are low in saturated fats and trans fats. These include poultry and fish without skin,lean cuts of meat, and low-fat dairy products. ? A variety of fish, especially oily fish that contain omega-3 fatty acids. Aim to eat fish at least 2 times a week. ??? Avoid foods and drinks that have added sugar. ??? Use healthy cooking methods, such as roasting, grilling, broiling, baking, poaching, steaming, and stir-frying. Do not galeano your food except for stir-frying. ??? If you drink alcohol: ? Limit how much you have to: ? 0?1 drink a day for women who are not . ? 0?2 drinks a day for men. ? Know how much alcohol is in a drink. In the [place] one drink equals one 12 oz bottle of beer (355 mL), one 5 oz glass of wine (148 mL), or one 1? oz glass of hard liquor (44 mL). Lifestyle ??? Get regular exercise. Aim to exercise for a total of 150 minutes a week. Increase your activitylevel by doing activities such as gardening, walking, and taking the stairs. ??? Do not use any products that contain nicotine or tobacco. These products include cigarettes, chewing tobacco, and vaping devices, such as e-cigarettes. If you need help quitting, ask your health care provider. General instructions ??? Take mcdo-bbp-ikfysqv and prescription medicines only as told by your health care provider. ??? Keep all follow-up visits. This is important. Where to find more information ??? [place] [employer]: www.heart.org ??? National Heart, Lung, and Blood [place]: www.nhlbi.nih.gov Contact a health car (more content not included)...[facility] 12-24-2024 Hospital Discharge instructions Follow [facility] 12/24/2024 13:05:20 With:Larisa HINOJOSA, ROBERT Rahman, [facility] Address: [address], [address] [facility] [address] [place] [phone] When: only if needed [facility] 07-31-2025 NoteProgress Note-Physician Patient: PIEDAD ALATORRE Age: 89 years Sex: Female : 1935 Associated Diagnoses: None Author: Lio Recinos Jr, DO Postoperative Information Postoperative disposition: Postoperative disposition: To PACU. Optimetrix number: Optimetrix number [id number]. Anesthetic utilized: General. Health Status Allergies: Allergic Reactions (Selected) Severe Lisinopril- Angioedema. Severity Not Documented Latex- Rash. Penicillin- Sob - shortness of breath and rash. Shellfish- Unknown. Skelaxin- Sob - shortness of breath. Physical Examination Vital Signs 12/09/2024 10:50 EDT Heart Rate Monitored 60 bpm Respiratory Rate Monitored 9 br/min 12/09/2024 10:50 EDT SpO2 93 % 12/09/2024 10:50 EDT Systolic Blood Pressure 121 mmHg Diastolic Blood Pressure 64 mmHg Blood Pressure Location Left arm Mean Arterial Pressure, Cuff 83 mmHg 12/09/2024 10:45 EDT Respiratory Rate Monitored 73 br/min 12/09/2024 10:45 EDT SpO2 91 % 12/09/2024 10:45 EDT Heart Rate Monitored 56 bpm LOW 12/09/2024 10:45 EDT Systolic Blood Pressure 100 mmHg Diastolic Blood Pressure 44 mmHg LOW Blood Pressure Location Left arm Mean Arterial Pressure, Cuff 63 mmHg 12/09/2024 10:40 EDT Heart Rate Monitored 53 bpm LOW 12/09/2024 10:40 EDT SpO2 97 % 12/09/2024 10:40 EDT Respiratory Rate Monitored 17 br/min 12/09/2024 10:40 EDT Systolic Blood Pressure 92 mmHg Diastolic Blood Pressure 37 mmHg LOW Blood Pressure Location Left arm Mean Arterial Pressure, Cuff 55 mmHg 12/09/2024 10:34 EDT SpO2 99 % 12/09/2024 10:34 EDT Respiratory Rate Monitored 14 br/min 12/09/2024 10:34 EDT Systolic Blood Pressure 92 mmHg Diastolic Blood Pressure 36 mmHg LOW 12/09/2024 10:34 EDT Temperature Temporal Artery 35.9 DegC LOW Heart Rate Monitored 53 bpm LOW Blood Pressure Location Left arm Mean Arterial Pressure, Cuff 55 mmHg Pain Assessment: Controlled. General: Awake, Alert, Appropriate. Respiratory: Adequate air exchange. Cardiovascular: Stable, Normal peripheral perfusion. Neurological: Normal sensory function, Normal motor function. Assessment Anesthetic outcome No anesthetic complications noted. Adequate pain relief. able to void without difficulty, able to ambulate with assist, tolerating PO intake, no N/V. Review / Management Condition: Stable. Plan Transfer/Discharge: Transfer/Discharge Discharge when meets criteria ( To home ).[facility]:Result Comment: Electronically Signed By: Lio Recinos Jr, DO\.br\Date and Time Signed: 12/09/24 15:21 EDT 12-09-2024 NoteProgress Note-Physician Patient: PIEDAD ALATORRE Age: 89 years Sex: Female : 1935 Associated Diagnoses: None Author: Lio Recinos Jr, DO Preoperative Information Anesthesia Preop Info: Time patient last ate or drank 12/09/2024 00:00:00. Anesthesia history: Patient history: None. Family history+: None. Informed consent: Signed by patient. Re-evaluation prior to induction: Initial evaluation reviewed: No significant change. Review of Systems Eye: Negative except as documented in history of present illness. Ear/Nose/Mouth/Throat: Negative except as documented in history of present illness. Respiratory: Negative except as documented in history of present illness. Cardiovascular: Negative except as documented in history of present illness. Musculoskeletal: Negative except as documented in history of present illness. Neurologic: Negative except as documented in history of present illness. Health Status Allergies: Allergic Reactions (Selected) Severe Lisinopril- Angioedema. Severity Not Documented Latex- Rash. Penicillin- Sob - shortness of breath and rash. Shellfish- Unknown. Skelaxin- Sob - shortness of breath. 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 Transportation insecurity / SNOMED CT 0000770122692741 / Possible Problem added automatically by Discern Expert based on clinical documentation Chest tightness / SNOMED CT 599651302 / Confirmed Edema / SNOMED CT 465797279 / Confirmed Shoulder pain / SNOMED CT 04718331 / Confirmed Seborrheic keratoses / SNOMED CT 3547006014 / Confirmed Encounter for examination following treatment at hospital / SNOMED CT 558886745 / Confirmed Knee pain, right / SNOMED CT 9029542422 / Confirmed Eye pain / SNOMED CT 44057989 / Confirmed BMI 26.0-26.9,adult / SNOMED CT 2479205958 / Confirmed Neck pain / SNOMED CT 841235932 / Confirmed Leg weakness / SNOMED CT 929007337 / Confirmed Moderate persistent asthma / SNOMED CT 9936988841 / Confirmed Urinary incontinence, mixed / SNOMED CT 7803483414 / Confirmed Mild pulmonary hypertension / SNOMED CT 8677022987 / Confirmed added per 10/06/2024 query response. Lumbar radiculopathy / SNOMED CT 600480739 / Confirmed Leukocytosis / SNOMED CT 694905667 / Confirmed Intertrigo / SNOMED CT 25591111 / Confirmed Insomnia / SNOMED CT 034941509 / Confirmed Hyperlipidemia / SNOMED CT 72064997 / Confirmed Hyperglycemia / SNOMED CT 618927315 / Confirmed HTN - Hypertension / SNOMED CT 7188845971 / Confirmed History of esophageal stricture / SNOMED CT 3751258982 / Confirmed History of colon polyps / SNOMED CT 9645638209 / Confirmed History of CVA in adulthood / SNOMED CT 4852069776 / Confirmed Large hiatal hernia / SNOMED CT 053385869 / Confirmed Female stress incontinence / SNOMED CT 073674276 / Confirmed Globus sensation / SNOMED CT 477588848 / Confirmed COPD type B / SNOMED CT 563082821 / Confirmed Dysphagia / SNOMED CT 23572885 / Confirmed CAD (coronary artery disease) / SNOMED CT 82660103 / Confirmed Contusion of left leg / SNOMED CT 1377228277 / Confirmed Chronic kidney disease (CKD), stage III (moderate) / SNOMED CT 6806204158 / Confirmed Benign hypertension with chronic kidney disease, stage III / SNOMED CT 2750608535 / Confirmed linked HTN with CKD per OP CDI policy. 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 / Confirmed At risk for falls / SNOMED CT 437233644 / Possible Anxiety disorder / SNOMED CT 137319967 / Confirmed Anemia / SNOMED CT 006946380 / Confirmed Change in bowel habits / SNOMED CT 766738488 / Confirmed Elevated alkaline phosphatase level / SNOMED CT 113375774 / Confirmed Acute hypoxemic respiratory failure / SNOMED CT 3766272116 / Confirmed Resolved: Stroke / ICD-9-CM 436 Resolved: STEMI - ST elevation myocardial infarction / SNOMED CT 5678937875 Resolved: BMI 25.0-25.9,adult / SNOMED CT 2214800676 Resolved: WA - myocardial infarction / SNOMED CT 7990509321 Resolved: HEMATURIA / ICD-9-CM 599.7 Resolved: H/O: TIA / SNOMED CT 547129197 Resolved: Glaucoma / SNOMED CT 52155037 Resolved: COPD / SNOMED CT 78372034 Resolved: Stage 3 chronic kidney disease / SNOMED CT 0294328045 Resolved: Cardiac arrest / SNOMED CT 4710051050 Resolved: blood clots Resolved: Appendectomy / ICD-9-CM 47.0 Resolved: Acid reflux / SNOMED CT 8412577604 Canceled: TIA (transient ischemic attack) / SNOMED CT 121049963 Canceled: Back pain, thoracic / SNOMED CT 731689069 Canceled: Renal insufficiency syndrome NOS / ICD-9-CM 586 Canceled: Leg pain / SNOMED CT 226373529 Canceled: Overweight with body mass index (BMI) of 26 to 26.9 in adult / SNOMED CT 5606327038 Canceled: Over weight / SNOMED CT 005173195 Canceled: Over weight / SNOMED CT 054375820 Canceled: Osteoarthrosis / SNOMED CT 4555013436 Canceled: Non-smoker / SNOMED CT 08943093 Canceled: (more content not included)...[facility] CenterComment on above:Result Comment: Electronically Signed By: Lio Recinos Jr, DO\.michael\Date and Time Signed: 12/09/24 15:19 [id number] NotePatient Education - Text Endoscopy Care After Procedure Please read the instructions outlined below and refer to this sheet in the next few weeks. These discharge instructions provide you with general information on [facility] Your doctor may also give you specific instructions. While your treatment has been planned according to the most current medical practices available, unavoidable complications occasionally occur. If you have any problems or questions after discharge, please call your doctor. ACTIVITY ??? You may resume your regular activity but move at a slower pace for the next 24 hours. ??? Take frequent rest periods for the next 24 hours. ??? Walking will help expel (get rid of) the air and reduce the bloated feeling in your abdomen. ??? No driving for 24 hours (because of the anesthesia (medicine) used during the test). ??? You may shower. ??? Do not sign any important legal documents or operate any machinery for 24 hours (because of theanesthesia used during the test). NUTRITION ??? Drink plenty of fluids. ??? You may resume your normal diet. ??? Begin with a light meal and progress to your normal diet. ??? Avoid alcoholic beverages for 24 hours or as instructed by your caregiver. MEDICATIONS ??? You may resume your normal medications unless your caregiver tells you otherwise. WHAT YOU CAN EXPECT TODAY ??? You may experience abdominal discomfort such as a feeling of fullness or ???gas??? pains. FOLLOW-UP ??? Your doctor will discuss the results of your test with you. seek immediate medical attention if any of the following occur: ??? Excessive nausea (feeling sick to your stomach) and/or vomiting. ??? Severe abdominal pain and distention (swelling). ??? Trouble swallowing. ??? Temperature over 100 F (37.8??? C). ??? Rectal bleeding or vomiting of blood. Document Released: 12/10/2004 Document Re-Released: 10/20/2006 ExitCare??? Patient Information ???2009 [email or web address]. Gastroenterology Esophageal Dilatation Esophageal dilatation, also called esophageal dilation, is a procedure to widen or open a blocked or narrowed part of the esophagus. The esophagus is the part of the body that moves food and liquid from the mouth to the stomach. You may need this procedure if: ??? You have a buildup of scar tissue in your esophagus that makes it difficult, painful, or impossible to swallow. This can be caused by gastroesophageal reflux disease (GERD). ??? You have cancer of the esophagus. ??? There is a problem with how food moves through your esophagus. In some cases, you may need this procedure repeated at a later time to dilate the esophagus gradually. Tell a health care provider about: ??? Any allergies you have. ??? All medicines you are taking, including vitamins, herbs, eye drops, creams, and ounj-scw-ctybxis medicines. ??? Any problems you or family members have had with anesthetic medicines. ??? Any blood disorders you have. ??? Any surgeries you have had. ??? Any medical conditions you have. ??? Any antibiotic medicines you are required to take before dental procedures. ??? Whether you are or may be . What are the risks? Generally, this is a safe procedure. However, problems may occur, including: ??? Bleeding due to a tear in the lining of the esophagus. ??? A hole, or perforation, in the esophagus. What happens before the procedure? Ask your health care provider about: ? Changing or stopping your regular medicines. This is especially important if you are taking diabetes medicines or blood thinners. ? Taking medicines such as aspirin and ibuprofen. These medicines can thin your blood. Do not take these medicines unless your health care provider tells you to take them. ? Taking cpsy-asb-afipcqq medicines, vitamins, herbs, and supplements. ??? Follow instructions from your health care provider about eating or drinking restrictions. ??? Plan to have a responsible adult take you home from the hospital or clinic. ??? Plan to have a responsible adult care for you for the time you are told after you leave the hospital or clinic. This is important. What happens during the procedure? You may be given a medicine to help you relax (sedative). ??? A numbing medicine may be sprayed into the back of your throat, or you may gargle the medicine. ??? Your health care provider may perform the [...] it up. The procedure may vary among hea (more content not included)...[facility]07[facility] NoteEndoscopic Procedure Report - Other Patient: PIEDAD ALATORRE Age: 89 years Sex: Female : 1935 Associated Diagnoses: None Author: Wolf Peres MD Pre-Procedure Procedure Date 12/09/2024 10:26:00 . Procedure Type: Esophagogastroduodenoscopy with dilation of esophagus with balloon less than 30 mm. Procedure provider Performed by Wolf Peres MD. Current history and physical Documented on chart. Informed Consent After discussing the rationale, risks and benefits, and alternatives to this procedure, the patient provided signed consent for the procedure. Pre-procedure diagnosis: Dysphagia . Medications Anticoagulant/antiplatelet Brilinta a week ago. ASA Classification: Class III. . Monitoring: See anesthesia record. . Anticoagulation use: Procedure The procedure was performed in the hospital. See anesthesia record for sedation given during procedure. The patient was positioned starting in the left lateral decubitus position and with safety measures. Endoscope type used was an adult- size, introduced orally, advanced to the 3rd portion of the duodenum. No difficulty was encountered during the procedure. Views were excellent. The patient tolerated the procedure well. Findings 1. Esophageal landmarks identified, torturous esophagus noted 2 Large hiatal hernia noted, mild Schatzki ring at the GE junction, estimated diameter about 18 mm,dilated with TTS balloon, 18-19-20, dilated to 20 mm with mild resistance, post dilation there was mild mucosal disruption, no wall defect 3. Normal examined stomach 4. Normal examined duodenum, although given the large hernia could not go beyond duodenal bulb Images Procedure images: Rec_hd_video_[id number]__[id number].jpg Rec_hd_video__[id number].jpg Rec1_hd_video__[id number].jpg Rec1_hd_video__[id number].jpg Rec1_hd_video__[id number].jpg Rec1_hd_video__[id number].jpg Rec1_hd_video__[id number].jpg Rec1_hd_video__[id number].jpg Rec1_hd_video__[id number].jpg . Post-Procedure Complications: none. Estimated blood loss: Minimal. Specimens: None. Devices/ implants: none left in place. Impression and Plan 1. Esophageal landmarks identified, torturous esophagus noted 2 Large hiatal hernia noted, mild Schatzki ring at the GE junction, estimated diameter about 18 mm,dilated with TTS balloon, 18-19-20, dilated to 20 mm with mild resistance, post dilation there was mild mucosal disruption, no wall defect 3. Normal examined stomach 4. Normal examined duodenum, although given the large hernia could not go beyond duodenal bulb Recommendations: -Liquid then soft diet today, advance as tolerated tomorrow, Avoid retching -Resume home medications, resume Friday Brilinta if no signs of bleeding -Follow-up in GI clinic as neededAdena [facility] CenterComment on above: Result Comment: Electronically Signed By: Larisa HINOJOSA, Wolf Arana\.br\Date and Time Signed: 12/09/24 10:34 EDTOther Comment: Missing Attachment - attachment storage system not supported [id number] Can be viewed in source system Missing Attachment - attachment storage system not supported [id number] Can be viewed in source systemMissing Attachment - attachment storage system not supported [id number] Can be viewed in source systemMissing Attachment - attachment storage system not supported [id number] Can be viewed in source systemMissing Attachment - attachment storage system not supported [id number] Can be viewed in source systemMissing Attachment - attachment storage system not supported [id number] Can be viewed in source systemMissing Attachment - attachment storage system not supported [id number] Can be viewed in source systemMissing Attachment - attachment storage system not supported [id number] Can be viewed in source system Missing Attachment - attachment storage system not supported [id number] Can be viewed in source [phone] NoteHistory and Physical Patient: PIEDAD ALATORRE Age: 89 years Sex: Female : 1935 Associated Diagnoses: None Author: Larisa HINOJOSA, Wolf Arana Preoperative Information Indication for procedure and diagnosis: dysphagia Chief Complaint as above Review of Systems All systems reviewed, negative except as mentioned above Health Status Current medications: (Selected) Inpatient Medications Ordered Lactated Ringers IV Melba 1000 mL 1,000 mL: 1,000 mL, IV, 100 mL/hr, Routine, Start date 12/09/24 7:55:00 EDT, 10 hour(s), Total volume (mL): 1,000, 65.4 kg, 1.69, m2 Sodium Chloride 0.9% IV Mebla 1000 mL 1,000 mL: 1,000 mL, IV, 20 mL/hr, Routine, Start date 12/09/24 6:46:00 EDT, 50 hour(s), Total volume (mL): 1,000, 65.4 kg, 1.69, m2 Prescriptions Prescribed Albuterol (Eqv-Proventil HFA) 90 mcg/inh inhalation aerosol: = 2 puff(s), Inhalation, q6hr, # 18 gm, Refills(s) 5, Pharmacy: [facility], 157, cm, 02/05/24 14:56:00 EDT, Height/Length Dosing, 66.4, kg, 02/05/24 14:56:00 EDT, Weight Dosing Atrovent 0.03% [place]: 2 spray(s), Nasal, TID Other (see comment), 1 EA, Refill(s) 1, [facility], 157, cm, 11/26/20 10:30:00 EDT, Height/Length Dosing, 68, kg, 11/26/20 10:30:00 EDT, Weight Dosing Pantoprazole [address] Tab: 40 mg = 1 tab(s), Oral, Daily, # 90 tab(s), Refills(s) 4, Pharmacy: [facility], 157, cm, 03/29/24 14:01:00 EST, Height/Length Dosing, 65.1, kg, 03/29/24 14:01:00 EST, Weight Dosing amLODIPine 5 mg Tab: 5 mg = 1 tab(s), Oral, Daily, # 90 tab(s), Refills(s) 4, Pharmacy: [facility], 157, cm, 03/29/24 14:01:00 EST, Height/Length Dosing, 65.1, kg, 03/29/24 14:01:00 EST, Weight Dosing atorvastatin 80 mg Tab: 80 mg = 1 tab(s), Oral, Bedtime, # 90 tab(s), Refills(s) 4, Pharmacy: [facility], 157, cm, 03/29/24 14:01:00 EST, Height/Length Dosing, 65.1, kg, 03/29/24 14:01:00 EST, Weight Dosing carvedilol 25 mg Tab: 25 mg = 1 tab(s), Oral, BID, # 180 tab(s), Refills(s) 4, Pharmacy: [facility], 157, cm, 03/29/24 14:01:00 EST, Height/Length Dosing, 65.1, kg, 03/29/24 14:01:00 EST, Weight Dosing cloNIDine 0.1 mg tab: 0.1 mg, Oral, BID, # 180 tab(s), Refills(s) 4, Pharmacy: [facility], 157, cm, 03/29/24 14:01:00 EST, Height/Length Dosing, 65.1, kg, 03/29/24 14:01:00 EST, Weight Dosing ferrous sulfate 325 mg oral enteric coated tablet: 325 mg = 1 tab(s), Oral, Daily, # 30 tab(s), Refills(s) 5, Pharmacy: [facility], 157, cm, 07/03/21 16:18:00 EST, Height/Length Dosing, 61.5, kg, 07/03/21 16:18:00 EST, Weight Dosing isosorbide mononitrate 30 mg ER Tab: 30 mg = 1 tab(s), Oral, qAM, # 30 tab(s), Refills(s) 2, other reason (Rx) med neb mask and tubing: med neb mask and tubing, See Instructions, 2 EA, 5, med neb mask and tubing, Supply, 157, cm, 10/26/24 14:43:00 EDT, Height/Length Dosing, 65.7, kg, 10/26/24 14:43:00 EDT, Weight Dosing spironolactone 25 mg Tab: 25 mg = 1 tab(s), Oral, Daily, # 90 tab(s), Refills(s) 4, Pharmacy: [facility], 157, cm, 03/29/24 14:01:00 EST, Height/Length Dosing, 65.1, kg, 03/29/24 14:01:00 EST, Weight Dosing ticagrelor 90 mg oral tablet: 90 mg = 1 tab(s), Oral, BID, # 180 tab(s), Refills(s) 4, Pharmacy: [facility], 157, cm, 03/29/24 14:01:00 EST, Height/Length Dosing, 65.1, kg, 03/29/24 14:01:00 EST, Weight Dosing traZODONE 50 mg Tab: See Instructions, TAKE ONE TABLET BY MOUTH ONCE DAILY AT BEDTIME , # 14 EA, Refills(s) 24, Pharmacy: [facility], 157, cm, 10/26/24 14:43:00 EDT, Height/Length Dosing, 65.7, kg, 10/26/24 14:43:00 EDT, Weight Dosing Documented Medications Documented Cequa 0.09% ophthalmic solution: Eye-Both, q12hr, Refill(s) 0, Dry eyes MiraLax: 17 gm, Oral, Daily, Refill(s) 0, Constipation Zofran 4 mg Tab: mg tab(s), Oral, q8hr, Refills(s) 0 acetaminophen: 325 mg, Oral, q6hr, PRN as needed for pain, Refills(s) 0 aspirin 81 mg oral tablet: 81 mg = 1 tab(s), Oral, Daily, tab(s), Refills(s) 0, Prophylaxis dexamethasone-tobramycin Opth 0.1%-0.3% Susp: Refill(s) 0, 5 mL, 0 Refill(s), INSTILL 1 DROP INTO RIGHT EYE 4 TIMES A DAY docusate sodium 100 mg Cap: 100 mg = 1 cap(s), Oral, BID, PRN for constipation, # 20 cap(s), Refills(s) 0 ipratropium: mcg, QID, Refills(s) 0 nitroglycerin 0.4 mg sublingual Tab: 0.4 mg = 1 tab(s), SubLingual, q5min, PRN for chest pain, # 100 tab(s), Refills(s) 0 nitroglycerin: Refills(s) 0, Home Medications (23) Active acetaminophen 325 mg, PRN, Oral, q6hr Albuterol (Eqv-Proventil HFA) 90 mcg/inh inhalation aerosol 2 puff(s), Inhalation, q6hr amLODIPine 5 mg Tab 5 mg = 1 tab(s), Oral, Daily aspirin 81 mg oral tablet 81 mg = 1 tab(s), Oral, Daily atorvastatin 80 mg Tab 80 mg = 1 tab(s), Oral, Bedtime Atrovent 0.03% [place] 2 spray(s), PRN, Nasal, TID carvedilol 25 mg Tab 25 mg = 1 tab(s), Oral, BID Cequa 0.09% ophthalmic solution , Eye-Both, q12hr cloNIDine 0.1 mg tab 0.1 mg, Oral, BID dexamethasone-tobramycin Opth 0.1% (more content not included)...[facility] CenterComment on above:Result Comment: Electronically Signed By: Larisa HINOJOSA, Wolf Arana\.br\Date and Time Signed: 12/09/24 10:20 [id number] Hospital Discharge instructions Patient Education 10/20/2024 13:36:25 Acute Respiratory Failure, Adult Acute Respiratory Failure, Adult Acute respiratory failure is when one or both of these things happen: Oxygen cannot pass from the lungs into the blood, causing the blood oxygen level to drop. Loss of blood oxygen means tissues and organs may not work well. A gas called carbon dioxide cannot pass from the blood into the lungs so the body can get rid of it. The buildup of carbon dioxide can damage the tissues and organs in the body. Acute respiratory failure happens fast. It is an emergency and needs to be treated right away. What are the causes? Common causes of respiratory failure that may cause low oxygen levels include: Trauma to the lung, chest, or ribs, or to the tissues around the lung. Lung conditions, such as pneumonia, asthma, or blood clots in the lungs (pulmonary embolism). Breathing in harmful chemicals, smoke, water, or vomit. A widespread infection (sepsis). Heart attack. Common causes of respiratory failure that cause a buildup of carbon dioxide include: Stroke. A spinal cord injury. Drug or alcohol overdose. Sepsis. The heart stopping all of a sudden (cardiac arrest). What increases the risk? This condition is more likely to develop in people who have: Known lung conditions, such as asthma or chronic obstructive pulmonary disease (COPD). A condition that damages or weakens the muscles, nerves, bones, or tissues that are involved in breathing, such as myasthenia gravis or Guillain Arteaga syndrome. A health problem that blocks the unconscious reflex that is involved in breathing, such as hypothyroidism or sleep apnea. What are the signs or symptoms? Symptoms may depend on the cause and on the levels of oxygen and carbon dioxide in your blood. Trouble breathing is the main symptom of acute respiratory failure. Other symptoms may include: Fast breathing. Making high-pitched whistling sounds when you breathe (wheezing) and grunting. Confusion or changes in behavior. Feeling tired, sleeping more than normal, or being hard to wake. Skin, lips, or fingernails that look blue (cyanosis). Feeling restless or anxious. Fast or irregular heartbeats (palpitations). How is this diagnosed? This condition may be diagnosed based on: Your medical history and a physical exam. Your health care provider will listen to your heart and lungs to check for abnormal sounds. Tests to confirm the diagnosis and find the cause of respiratory failure. Tests may include: ?Measuring the amount of oxygen in your blood (pulse oximetry). This involves placing a small device on your finger, earlobe, or toe. ?Blood tests to measure levels of blood oxygen and carbon dioxide. ?Chest X-ray. How is this treated? Treatment for this condition usually takes place in a hospital intensive care unit (ICU). Treatmentdepends on the cause of the condition. Treatment may include one or more of these: Oxygen given through your nose or a face mask. A device to help you breathe, such as a continuous positive airway pressure (CPAP) machine or bilevel positive airway pressure (BIPAP) machine. The device gives you oxygen and pressure. Other breathing treatments, fluids, and medicines. A breathing machine called a ventilator. This gives you oxygen and pressure to help you breathe. A tube is put into your mouth and windpipe (trachea) and connects to the ventilator. Tracheostomy placement, if you are on a ventilator for a long time. A tracheostomy is a breathing tube put through your neck into your trachea. Follow these instructions at home: Medicines Take pekx-upl-bypmkgq and prescription medicines only as told by your health care provider. If you were prescribed antibiotics, take them as told by your health care provider. Do not stop using the antibiotic even if you start to feel better. General instructions Return to your normal activities as told by your health care provider. Ask your health care provider what activities are safe for you. Do not use any products that contain nicotine or tobacco. These products include cigarettes, chewing tobacco, and vaping devices, such as e-cigarettes. If you need help quitting, ask your health careprovider. Keep all follow-up visits. Contact a health care provider if: Your symptoms do not improve or they get worse. Get help right away if: You are having trouble breathing. You lose consciousness. Your heart starts beating very fast. Your fingers, lips, or other areas of your body turn blue. You are confused. These symptoms may be an emergency. Get help right away. Call 911. Do not wait to see if the symptoms will go away. Do not drive yourself to the hospital. Summary Acute respiratory failure is a condition that develops fast and needs to be treated right away. The main symptom of this condition is trouble breathing. Treatment for this condition usually takes place in a hospital intensive care unit (ICU). Treatmentmay include oxygen, fluids, and medicines. A machine may be used to help you breathe, such as a ventilator. Contact a health care provider if your symptoms do not improve or if they get worse. This information is not intended to replace advice given to you by your health care provider. Make sure you discuss any questions you have with your health care provider. Document Revised: 07/05/2022 Document Reviewed: 07/05/2022 [employer] Patient Education 2023 [employer]. 10/20/2024 13:36:19 Coronary Artery Disease, Female Coronary Artery Disease, Female Coronary artery disease (CAD) is a condition in which the arteries that lead to the heart (coronaryarteries) become narrow or blocked. The narrowing or blockage can lead to decreased blood flow to the heart. Prolonged reduced blood flow can cause a heart attack (myocardial infarction, or WA). Thiscondition may also be called coronary heart disease. CAD is the most common type of heart disease, and heart disease is the leading cause of in women. It is important to understand what causes CAD and how it is treated. What are the causes? CAD is most often caused by atherosclerosis. This is the buildup of fat and cholesterol (plaque) onthe inside of the arteries. Over time, the plaque may narrow or block the artery, reducing blood flow to the heart. Plaque can also become weak and break off within a coronary artery and cause a sudden blockage. Other less common causes of CAD include: A blood clot or a piece of another substance that blocks the flow of blood in a coronary artery (embolism). A tearing of the artery (spontaneous coronary artery dissection). An enlargement of an artery (aneurysm). Inflammation (vasculitis) in the artery wall. What increases the risk? The following factors may make you more likely to develop this condition: Age. Women older than 55 years are at a greater risk of CAD. Family history of CAD. High blood pressure (hypertension). Diabetes. High cholesterol levels. Obesity. Menopause. ?All postmenopausal women are at greater risk of CAD. ?Women who have experienced menopause between the ages of 40 and 45 (early menopause) are at a higher risk of CAD. ?Women who have experienced menopause before age 40 (premature menopause) are at a very high risk of CAD. Other risk factors include: Tobacco use. Excessive alcohol use. Lack of exercise. A diet high in saturated and trans fats, such as fried food and processed meat. What are the signs or symptoms? Many people do not have any symptoms during the early stages of CAD. As the condition progresses, symptoms may include: Chest pain (angina). The pain can: ?Feel like crushing or squeezing, or like a tightness, pressure, fullness, or heaviness in the chest. ?Last more than a few minutes or can stop and recur. The pain tends to get worse with exercise or stress and to fade with rest. Pain in the arms, neck, jaw, ear, or back. Unexplained heartburn or indigestion. Shortness of breath. Nausea. Sudden light-headedness. Sudden cold sweats. Fluttering or fast heartbeat (palpitations). Many women have chest discomfort and the other symptoms. However, women often have unusual (atypical) symptoms, such as: Fatigue. Vomiting. Unexplained feelings of nervousness or anxiety. Unexplained weakness. Dizziness or fainting. How is this diagnosed? This condition is diagnosed based on: Your family and medical history. A physical exam. Tests. These may include: ?A test to check the electrical signals in your heart (electrocardiogram). ?Exercise stress test. This looks for signs of blockage when the heart is stressed with exercise, such as running on a treadmill. ?Pharmacologic stress test. This test looks for signs of blockage when the heart is being stressed with a medicine. ?Blood tests to check levels of cardiac enzymes such as troponin and creatine kinase. ?Coronary angiogram. This is a procedure to look at the coronary arteries to see if there is any blockage. During this test, a dye is injected into your arteries so they appear on an X-ray. ?Coronary artery CT scan. This scan helps detect calcium deposits in your coronary arteries. Calcium deposits are an indicator of CAD. ?A test that uses sound waves to take a picture of your heart (echocardiogram). How is this treated? This condition may be treated by: Healthy lifestyle changes to reduce risk factors. Medicines such as: ?Antiplatelet medicines such as clopidogrel or aspirin. These help to prevent blood clots. ?Nitroglycerin. ?Blood pressure medicines. ?Cholesterol-lowering medicine. Coronary angioplasty and stenting. During this procedure, a thin, flexible tube is inserted througha blood vessel and into a blocked artery. A balloon or similar device on the end of the tube is inflated to open up the artery. In some cases, a small, mesh tube (stent) is inserted into the artery to keep it open. Coronary artery bypass surgery. During this surgery, veins or arteries from other parts of the bodyare used to create a bypass around the blockage and allow blood to reach your heart. Follow these instructions at home: Medicines Take ldee-yok-ldmfeke and prescription medicines only as told by your health care provider. Do not take the following medicines unless your health care provider approves: ?NSAIDs, such as ibuprofen, naproxen, or celecoxib. ?Vitamin supplements that contain vitamin A, vitamin E, or both. ?Hormone replacement therapy that contains estrogen with or without progestin. Lifestyle Follow an exercise program approved by your health care provider. Ask your health care provider if cardiac rehab is appropriate. Maintain a healthy weight or lose weight as approved by your health care provider. Learn to manage stress or try to limit your stress. Ask your health care provider for suggestions if you need help. Get screened for depression and seek treatment, if needed. Do not use any products that contain nicotine or tobacco. These products include cigarettes, chewing tobacco, and vaping devices, such as e-cigarettes. If you need help quitting, ask your health careprovider. Eating and drinking Follow a heart-healthy diet. A dietitian can help educate you about healthy food options and changes. In general, eat plenty of fruits and vegetables, lean meats, and whole grains. Avoid foods high in: ?Sugar. ?Salt (sodium). ?Saturated fats, such as processed or fatty meat. ?Trans fats, such as fried food. Use healthy cooking methods such as roasting, grilling, broiling, baking, poaching, steaming, or stir-frying. Do not drink alcohol if: ?Your health care provider tells you not to drink. ?You are , may be , or are planning to become . If you drink alcohol: ?Limit how much you have to 0 1 drink a day. ?Know how much alcohol is in your drink. In the [place] one drink equals one 12 oz bottle of beer (355 mL), one 5 oz glass of wine (148 mL), or one 1 oz glass of hard liquor (44 mL). General instructions Manage any other health conditions, such as high cholesterol, hypertension, and diabetes. These conditions affect your heart. Your health care provider may ask you to monitor your blood pressure. Keep all follow-up visits. This is important. Get help right away if: You have pain in your chest, neck, ear, arm, jaw, stomach, or back that: ?Lasts more than a few minutes. ?Is recurring. ?Is not relieved by taking medicine under your tongue (sublingual nitroglycerin). You have profuse sweating without cause. You have unexplained: ?Heartburn or indigestion. ?Shortness of breath or difficulty breathing. ?Fluttering or fast heartbeat (palpitations). ?Fatigue or weakness. ?Nausea or vomiting. ?Feelings of nervousness or anxiety. You have sudden light-headedness or dizziness. You faint. These symptoms may be an emergency. Get help right away. Call 911. Do not wait to see if the symptoms will go away. Do not drive yourself to the hospital. Summary Coronary artery disease (CAD) is a condition in which the arteries that lead to the heart (coronaryarteries) become narrow or blocked. Prolonged reduced blood flow can cause a heart attack. Many women have chest discomfort and other common symptoms of CAD. However, women often have unusual (atypical) symptoms, such as fatigue, vomiting, weakness, or dizziness. CAD can be treated with lifestyle changes, medicines, coronary angioplasty or stents, coronary artery bypass surgery, or a combination of these treatments. Keep all follow-up visits. This is important. This information is not intended to replace advice given to you by your health care provider. Make sure you discuss any questions you have with your health care provider. Document Revised: 03/27/2022 Document Reviewed: 03/27/2022 [employer] Patient Education 2023 [employer]. 10/20/2024 13:36:12 Chronic Kidney Disease, Adult Chronic Kidney Disease, Adult Chronic kidney disease (CKD) occurs when the kidneys are slowly and permanently damaged over a longperiod of time. The kidneys are a pair [...] taken to slow kidney damage or to stopit from getting worse. If steps are not [...] Follow these instructions at home: Medicines Take yqbb-wdn-slthubf and prescription medicines only as told by your health care provider. The amount of some medicines that you take may need to be changed. Do not take any new medicines unless approved by your health care provider. Many medicines can makekidney damage worse. Do not take any vitamin and mineral supplements unless approved by your health care provider. Many nutritional supplements can make kidney damage worse. Lifestyle Do not use any products that contain nicotine or tobacco, such as cigarettes, e- cigarettes, and chewing tobacco. If you need help [...] care provider about eating or drinking restrictions, includingany prescribed diet. Track your blood pressure at [...] is important. Where to find more information [place] [employer]: www.aakp.org National Kidney Foundation: www.kidney.org [employer]: www.akfinc.org Life Options: www.lifeoptions.org Kidney [...] provider. Document Revised: 08/02/2020 Document Reviewed: 08/02/2020 [employer] Patient Education 2023 [employer]. Follow Up Care 10/11/2024 11:20:42 With:Antelmo FLORES, Apollo Esquivel [facility], [facility] Address: [address] [address] [id number] When: Unknown Comments:as scheduled [facility] 06-11-2025 NotePatient Education Cardiovascular Coronary Artery Disease, Female Coronary artery disease (CAD) is a condition in which the arteries that lead to the heart (coronaryarteries) become narrow or blocked. The narrowing or blockage can lead to decreased blood flow to the heart. Prolonged reduced blood flow can cause a heart attack (myocardial infarction, or WA). Thiscondition may also be called coronary heart disease. CAD is the most common type of heart disease, and heart disease is the leading cause of in women. It is important to understand what causes CAD and how it is treated. What are the causes? CAD is most often caused by atherosclerosis. This is the buildup of fat and cholesterol (plaque) onthe inside of the arteries. Over time, the plaque may narrow or block the artery, reducing blood flow to the heart. Plaque can also become weak and break off within a coronary artery and cause a sudden blockage. Other less common causes of CAD include: ??? A blood clot or a piece of another substance that blocks the flow of blood in a coronary artery(embolism). ??? A tearing of the artery (spontaneous coronary artery dissection). ??? An enlargement of an artery (aneurysm). ??? Inflammation (vasculitis) in the artery wall. What increases the risk? The following factors may make you more likely to develop this condition: ??? Age. Women older than 55 years are at a greater risk of CAD. ??? Family history of CAD. ??? High blood pressure (hypertension). ??? Diabetes. ??? High cholesterol levels. ??? Obesity. ??? Menopause. ? All postmenopausal women are at greater risk of CAD. ? Women who have experienced menopause between the ages of 40 and 45 (early menopause) are at a higher risk of CAD. ? Women who have experienced menopause before age 40 (premature menopause) are at a very high risk of CAD. Other risk factors include: ??? Tobacco use. ??? Excessive alcohol use. ??? Lack of exercise. ??? A diet high in saturated and trans fats, such as fried food and processed meat. What are the signs or symptoms? Many people do not have any symptoms during the early stages of CAD. As the condition progresses, symptoms may include: ??? Chest pain (angina). The pain can: ? Feel like crushing or squeezing, or like a tightness, pressure, fullness, or heaviness in the chest. ? Last more than a few minutes or can stop and recur. The pain tends to get worse with exercise or stress and to fade with rest. ??? Pain in the arms, neck, jaw, ear, or back. ??? Unexplained heartburn or indigestion. ??? Shortness of breath. ??? Nausea. ??? Sudden light-headedness. ??? Sudden cold sweats. ??? Fluttering or fast heartbeat (palpitations). Many women have chest discomfort and the other symptoms. However, women often have unusual (atypical) symptoms, such as: ??? Fatigue. ??? Vomiting. ??? Unexplained feelings of nervousness or anxiety. ??? Unexplained weakness. ??? Dizziness or fainting. How is this diagnosed? This condition is diagnosed based on: ??? Your family and medical history. ??? A physical exam. ??? Tests. These may include: ? A test to check the electrical signals in your heart (electrocardiogram). ? Exercise stress test. This looks for signs of blockage when the heart is stressed with exercise, such as running on a treadmill. ? Pharmacologic stress test. This test looks for signs of blockage when the heart is being stressedwith a medicine. ? Blood tests to check levels of cardiac enzymes such as troponin and creatine kinase. ? Coronary angiogram. This is a procedure to look at the coronary arteries to see if there is any blockage. During this test, a dye is injected into your arteries so they appear on an X-ray. ? Coronary artery CT scan. This scan helps detect calcium deposits in your coronary arteries. Calcium deposits are an indicator of CAD. ? A test that uses sound waves to take a picture of your heart (echocardiogram). How is this treated? This condition may be treated by: ??? Healthy lifestyle changes to reduce risk factors. ??? Medicines such as: ? Antiplatelet medicines such as clopidogrel or aspirin. These help to prevent blood clots. ? Nitroglycerin. ? Blood pressure medicines. ? Cholesterol-lowering medicine. ??? Coronary angioplasty and stenting. During this procedure, a thin, flexible tube is inserted through a blood vessel and into a blocked artery. A balloon or similar device on the end of the tube isinflated to open up the artery. In some cases, a small, mesh tube (stent) is inserted into the artery to keep it open. ??? Coronary artery bypass surgery. During this surgery, veins or arteries from other parts of the body are used to create a bypass around the blockage and allow blood to reach your heart. Follow these instructions at home: Medicines ??? Take uzuo-bjq-yrszdht and prescription medicines only as told by your health care provider. (more content not included)...[facility] 10-14-2024 NoteMicrobiology PROCEDURE: Blood Culture Charcoal [R1] SOURCE: Blood BODY SITE: Arm L COLLECTED DATE/TIME: 10/07/2024 11:41 EDT RECEIVED DATE/TIME: 10/07/2024 12:05 EDT START DATE/TIME: 10/07/2024 12:05 EDT FREE TEXT SOURCE: Darin Maza DO, DO, Kevin M. FINAL REPORTS Final Report [] Verified Date/Time: 10/14/2024 15:00 EDT No growth at 7 days. Performing Locations R1: [facility] performed at: [facility], [address] [place] [address], [id number] [place] [address], [facility]jAden[facility] CenterComment on above:Performed By: #### [id number] #### [address] [id number] NoteMicrobiology PROCEDURE: Blood Culture Charcoal [R1] SOURCE: Blood BODY SITE: Arm R COLLECTED DATE/TIME: 10/07/2024 11:43 EDT RECEIVED DATE/TIME: 10/07/2024 12:05 EDT START DATE/TIME: 10/07/2024 12:05 EDT FREE TEXT SOURCE: Darin Maza DO. Darin Maza DO FINAL REPORTS Final Report [] Verified Date/Time: 10/14/2024 15:00 EDT No growth at 7 days. Performing Locations R1: This test was performed at: [facility], [address] [place] [address], [id number] [place] [address], [address] [place], [place] [id number] on above:Performed By: #### [id number] ####[address] [id number] Hospital Discharge instructions Patient Education 10/08/2024 13:19:43 Asthma Attack Asthma Attack Asthma attack, also called asthma flare or acute bronchospasm, is the sudden narrowing and tightening of the lower airways (bronchi) in the lungs, that can make it hard to breathe. The narrowing is caused by inflammation and tightening of the smooth muscle that wraps around the lower airways in thelungs. Asthma attacks may cause coughing, high-pitched whistling sounds when you breathe, most often when you breathe out (wheezing), trouble breathing (shortness of breath), and chest pain. The airways mayproduce extra mucus caused by the inflammation and irritation. During an asthma attack, it can be di fficult to breathe. It is important to get treatment right away. Asthma attacks can range from minor to life-threatening. What are the causes? Possible causes or triggers of this condition include: Household allergens like dust, pet dander, and cockroaches. Mold and pollen from trees or grass. Air pollutants such as household sandwich and drink cart operator, aerosol sprays, strong odors, and smoke of any kind. Weather changes and cold air. Stress or strong emotions such as crying or laughing hard. Exercise or activity that requires a lot of energy. Certain medicines or medical conditions such as: ?Aspirin or beta-blockers. ?Infections or inflammatory conditions, such as a flu (influenza), a cold, pneumonia, or inflammation of the nasal membranes (rhinitis). ?Gastroesophageal reflux disease (GERD). GERD is a condition in which stomach acid backs up into your esophagus and spills into your trachea (windpipe), which can irritate your airways. What are the signs or symptoms? Symptoms of this condition include: Wheezing. Excessive coughing. This may only happen at night. Chest tightness or pain. Shortness of breath. Difficulty talking in complete sentences. Feeling like you cannot get enough air, no matter how hard you breathe (air hunger). How is this diagnosed? This condition may be diagnosed based on: A physical exam and your medical history. Your symptoms. Tests to check for other causes of your symptoms or other conditions that may have triggered your asthma attack. These tests may include: ?A chest X-ray. ?Blood tests. ?Lung function studies (spirometry) to evaluate the flow of air in your lungs. How is this treated? Treatment for this condition depends on the severity and cause of your asthma attack. For mild attacks, you may receive medicines through a hand-held inhaler (metered dose inhaler or MDI) or through a device that turns liquid medicine into a mist (nebulizer). These medicines include: ?Quick relief or rescue medicines that quickly relax the airways and lungs. ?Long-acting medicines that are used daily to prevent (control) your asthma symptoms. For moderate or severe attacks, you may be treated with steroid medicines by mouth or through an IVinjection at the hospital. For severe attacks, you may need oxygen therapy or a breathing machine (ventilator). If your asthma attack was caused by an infection from bacteria, you will be given antibiotic medicines. Follow these instructions at home: Medicines Take qorv-awt-majkzwy and prescription medicines only as told by your health care provider. If you were prescribed an antibiotic medicine, take it as told by your health care provider. Do notstop using the antibiotic even if you start to feel better. Tell your doctor if you are or may be to make sure your asthma medicine is safe to use during . Avoiding triggers Keep track of things that trigger your asthma attacks. Avoid exposure to these triggers. Do not use any products that contain nicotine or tobacco. These products include cigarettes, chewing tobacco, and vaping devices, such as e-cigarettes. If you need help quitting, ask your health careprovider. When there is a lot of pollen, air pollution, or humidity, keep windows closed and use an air conditioner or go to places with air conditioning. Asthma action plan Work with your health care provider to make a written plan for managing and treating your asthma attacks (asthma action plan). This plan should include: ?A list of your asthma triggers and how to avoid them. ?A list of symptoms that you may have during an asthma attack. ?Information about which medicine to take, when to take the medicine, and how much of the medicine to take. ?Information to help you understand your peak flow measurements. ?Daily actions that you can take to control your asthma symptoms. ?Contact information for your health care providers. If you have an asthma attack, act quickly. Follow the emergency steps on your written asthma actionplan. This may prevent you from needing to go to the hospital. Talk to a family member or close friend about your asthma action plan and who to contact in case you need help. General instructions Avoid excessive exercise or activity until your asthma attack goes away. Stay up to date on all your vaccines, such as flu and pneumonia vaccines. Keep all follow-up visits. This is important. Contact a health care provider if: You have followed your action plan for 1 hour and your peak flow reading is still at 50 79% of yourpersonal best. This is in the yellow zone, which means caution. You need to use your quick reliever medicine more frequently than normal. Your medicines are causing side effects, such as rash, itching, swelling, or trouble breathing. Your symptoms do not improve after taking medicine. You have a fever. Get help right away if: Your peak flow reading is less than 50% of your personal best. This is in the red zone, which means danger. You develop chest pain or discomfort. Your medicines no longer seem to be helping. You are coughing up bloody mucus. You have a fever and your symptoms suddenly get worse. You have trouble swallowing. You feel very tired, and breathing becomes tiring. These symptoms may be an emergency. Get help right away. Call 911. Do not wait to see if the symptoms will go away. Do not drive yourself to the hospital. Summary Asthma attacks are caused by narrowing or tightness in air passages, which causes shortness of breath, coughing, and wheezing. Many things can trigger an asthma attack, such as allergens, weather changes, exercise, strong odors, and smoke of any kind. If you have an asthma attack, act quickly. Follow the emergency steps on your written asthma actionplan. Get help right away if you have severe trouble breathing, chest pain, or fever, or if your home medicines are no longer helping with your symptoms. This information is not intended to replace advice given to you by your health care provider. Make sure you discuss any questions you have with your health care provider. Document Revised: 02/17/2022 Document Reviewed: 02/17/2022 [employer] Patient Education 2023 [employer]. Follow Up Care 10/07/2024 11:13:00 With:Marisabel Dumont Address: [address], [address] [place] [phone] Business (1) When:10/11/2024 13:15:00 Comments:- Esophageal stricture. Needs EGD With:Deonte ROSARIO Address: [facility] [address], [place] [address]- Business (1) When:10/18/2024 11:00:00 Comments:Keep scheduled appointmentPlease call if you need to reschedule [facility] 05-30-2025 Evaluation + Plan noteExtracted from:Title: Discharge NoteAuthor:Pranav Sibley III, DODate:10/08/24 Discharged to - Assisted living Discharge Diet(s): Regular (10/08/24 13:18:00) Prescriptions Albuterol (Eqv-Proventil HFA) 90 mcg/inh inhalation aerosol, 2 puff(s), Inhalation, q6hr, 5 refills albuterol 0.083% Inh Melba 3 mL, 2.5 mg= 3 mL, Inhalation, q6hr, PRN, 3 refills amLODIPine 5 mg Tab, 5 mg= 1 tab(s), Oral, Daily, 4 refills atorvastatin 80 mg Tab, 80 mg= 1 tab(s), Oral, Bedtime, 4 refills Atrovent 0.03% [place], 2 spray(s), Nasal, TID, PRN, 1 refills carvedilol 25 mg Tab, 25 mg= 1 tab(s), Oral, BID, 4 refills cloNIDine 0.1 mg tab, 0.1 mg, Oral, BID, 4 refills Dulera 100 mcg-5 mcg/inh inhalation aerosol, 2 puff(s), Inhalation, BID, 6 refills ferrous sulfate 325 mg oral enteric coated tablet, 325 mg= 1 tab(s), Oral, Daily, 5 refills Pantoprazole [address] Tab, 40 mg= 1 tab(s), Oral, Daily, 4 refills predniSONE 10 mg Tab, 1 -, Oral, As Directed spironolactone 25 mg Tab, 25 mg= 1 tab(s), Oral, Daily, 4 refills ticagrelor 90 mg oral tablet, 90 mg= 1 tab(s), Oral, BID, 4 refills traZODONE 50 mg Tab, 50 mg= 1 tab(s), Oral, Bedtime, 4 refills Home acetaminophen, 325 mg, Oral, q6hr, PRN aspirin 81 mg oral tablet, 81 mg= 1 tab(s), Oral, Daily Cequa 0.09% ophthalmic solution, Eye-Both, q12hr dexamethasone-tobramycin Opth 0.1%-0.3% Susp docusate sodium 100 mg Cap, 100 mg= 1 cap(s), Oral, BID, PRN MiraLax, 17 gm, Oral, Daily nitroglycerin 0.4 mg sublingual Tab, 0.4 mg= 1 tab(s), SubLingual, q5min, PRN ondansetron 4 mg Tab, 4 mg= 1 tab(s), Oral, q8hr TobraDex ST, Eye-Both, q6hr With When Contact Information Marisabel Dumont Within 1 week [address], [address] [place] [address]- [phone] Business (1) Additional Instructions: Call for followup appointment - Esophageal stricture. Needs EGD Deonte ROSARIO Within 7 to 10 days [facility] [address] [facility], [place] [address]- Business (1) Additional Instructions: Call for followup appointment Asthma Attack Extracted from:Title:Admission H & PAuthor:Pranav Sibley III, DO.Date: 10/07/24 The patient is a an 89-year- old female with past medical history of asthma entheses carries a diagnosis of COPD, however, never smoked and previous PFTs consistent with asthma and seen by pulmonology who agreed), CAD ( prior PCI in 2020 and most recently in January 2024, complicated by dissection of the left main artery. She underwent PCI to the left main artery and LAD with drug-eluting stents), HTN, CVA, HLD, and CKD 3B admitted to [facility] on 10/07/2024 under observation for acute hypoxic respiratory failure secondary to asthma exacerbation. 1. Asthma exacerbation (J45.901: Unspecified asthma with (acute) exacerbation) Solu-Medrol 40 mg IV twice daily, DuoNebs 4 times daily, budesonide twice daily Check respiratory PCR Patient follows with Dr. Warner of pulmonology. No need for pulm consult currently. Consult if necessary. No signs or symptoms of pneumonia or acute illness. Not septic. Carries a historical diagnosis of COPD, however, she was never a smoker. 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 Did endorse a diagnosis of asthma. Pulmonology note states that her PFTs from 2018 were consistent with asthma. 2. Acute hypoxemic respiratory failure (J96.01: Acute respiratory failure with hypoxia) Hypoxia with ambulation and significant tachypnea. Improved with treatment in ER. On 2 L nasal cannula currently, wean as tolerated. Ordered: Basic Metabolic Panel CBC w/ Auto Diff Initial Hospital Care/Day Moderate 55 Minutes [id number] 3. Chronic kidney disease (CKD), stage III (moderate) (N18.30: Chronic kidney disease, stage 3 unspecified) Creatinine to baseline. Creatinine currently 1.4. Monitor. 4. 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 She underwent PCI to the left main artery and LAD with drug-eluting stents Aspirin, high intensity statin, Brilinta, beta-nelly 5. History of CVA in adulthood (Z86.73: Personal history of transient ischemic attack (TIA), and cerebral infarction without residual deficits) Aspirin, Brilinta, high intensity statin as above. 6. HTN - Hypertension (I10: Essential (primary) hypertension) For control. Will monitor. Continue home antihypertensives: Amlodipine, carvedilol, clonidine, spironolactone Ordered: spironolactone, 25 mg = 1 tab(s), Tab, Oral, Daily, Routine, Start date 10/08/24 9:00:00 EDT, 10/07/24 17:46:00 EDT 7. At risk for falls (Z91.81: History of falling) Patient states that she feels somewhat weak and unsteady. Consult PT OT. Patient lives at assisted living facility at baseline. Orders: acetaminophen, 650 mg = 2 tab(s), Tab, Oral, q6hr PRN Pain, Routine, Start date 10/07/24 17:43:00 EDT, 10/07/24 17:43:00 EDT albuterol-ipratropium, 3 mL, Soln-Inh, Inhalation, QID, Routine, Start date 10/07/24 20:00:00 EDT amlodipine, 5 mg = 1 tab(s), Tab, Oral, Daily, Routine, Start date 10/08/24 9:00:00 EDT, 10/07/24 17:44:00 EDT aspirin, 81 mg = 1 tab(s), Tab-EC, Oral, Daily, Routine, Start date 10/08/24 9:00:00 EDT, 10/07/24 17:44:00 EDT atorvastatin, 80 mg = 2 tab(s), Tab, Oral, Bedtime, Routine, Start date 10/07/24 21:00:00 EDT, 10/07/24 17:44:00 EDT budesonide, 0.25 mg = 2 mL, Susp-Inh, NEB, BID, Routine, Start date 10/07/24 20:00:00 EDT, 10/07/2516:47:00 EDT carvedilol, 25 mg = 1 tab(s), Tab, Oral, BID, Routine, Start date 10/07/24 21:00:00 EDT, 10/07/24 17:44:00 EDT clonidine, 0.1 mg = 1 tab(s), Tab, Oral, BID, Routine, Start date 10/07/24 21:00:00 EDT, 10/07/24 17:44:00 EDT dexamethasone-tobramycin ophthalmic, 1 drop(s), Susp-Opth, Eye-Both, QID, Routine, Start date 10/07/24 21:00:00 EDT docusate, 100 mg = 1 cap(s), Cap, Oral, BID PRN Constipation, Routine, Start date 10/07/24 17:45:00EDT, 10/07/24 17:45:00 EDT ferrous sulfate, 325 mg = 1 tab(s), Tab, Oral, Daily, Routine, Start date 10/08/24 9:00:00 EDT, 10/07/24 17:45:00 EDT methylPREDNISolone, 40 mg = 1 mL, Injection, IV Push, q12hr, Routine, Start date 10/07/24 18:00:00 EDT, 10/07/24 17:47:00 EDT ondansetron, 4 mg = 2 mL, Injection, IV Push, q6hr PRN Nausea, Routine, Start date 10/07/24 17:43:00 EDT, 10/07/24 17:43:00 EDT pantoprazole, 40 mg = 1 tab(s), Tab-EC, Oral, Daily, Routine, Start date 10/08/24 9:00:00 EDT, 10/07/24 17:46:00 EDT polyethylene glycol 3350, 17 gm = 1 EA, Powder-Recon, Oral, Daily, Routine, Start date 10/08/24 9:00:00 EDT, 10/07/24 17:46:00 EDT ticagrelor, 90 mg = 1 tab(s), Tab, Oral, BID, Routine, Start date 10/07/24 21:00:00 EDT, 10/07/24 17:46:00 EDT trazodone, 50 mg = 1 tab(s), Tab, Oral, Bedtime, Routine, Start date 10/07/24 21:00:00 EDT, 10/07/24 17:46:00 EDT Activity As Tolerated Ambulate with Assistance Cardiac Monitoring Notify Provider Vital Signs Notify Provider Vital Signs Occupational Therapy Evaluate Patient, Develop a Plan of Care and Implement Plan Oxygen Protocol Physical Therapy Evaluate Patient, Develop a Plan of Care and Implement Plan Precautions Regular Diet Regular Diet Respiratory Panel by PCR Respiratory Protocol Resuscitation Status - Full Vital Signs Weight Code, regular diet, heparin for DVT prophylaxis. I discussed the diagnosis and plan of care with the patient at the bedside. Moderate level of MDM based on addressing above issues. I spent 65 minutes on care including chart review, ordering, documentation, exam, discussion of care plan with patient. This documentation was transcribed using voice recognition software. Several attempts were made to ensure accuracy. However inadvertent computerized pathology transcriptionist errors may be present. Extracted from:Title:ED NoteAuthor:Darin Maza DODate:10/07/24 Acute hypoxemic respiratory failure (J96.01: Acute respiratory failure with hypoxia) COPD with acute exacerbation (J44.1: Chronic obstructive pulmonary disease with (acute) exacerbation) Orders: albuterol-ipratropium, 3 mL, Soln-Inh, Inhalation, Once, Stop date 10/07/24 12:59:00 EDT, STAT, Start date 10/07/24 12:59:00 EDT methylPREDNISolone, 125 mg = 2 mL, Injection, IV Push, Once, Stop date 10/07/24 13:00:00 EDT, STAT,Start date 10/07/24 13:00:00 EDT, 10/07/24 13:00:00 EDT B-Type Natriuretic Peptide Blood Culture Charcoal Blood Culture Charcoal CBC w/ Auto Diff Comprehensive Metabolic Panel Continuous Pulse Oximetry ECG 12 Lead Adult ED Cardiac Monitoring ED Physician consult Hospitalist for continued care eGFR Extra SST Tube Lactic Acid Lactic Acid Oxygen Therapy PT & PTT Saline Lock Insert Troponin XR Chest Single View Future Appointments Appointment Date:10/11/2024 01:15:00 PM Scheduled Provider:Marisabel Dumont MD Location[facility] Appointment Type:BAD[facility] Follow Up Appointment Date:10/18/2024 11:00:00 AM Scheduled Provider:Alyssa Gamble Location:[facility] Appointment Type: ER/Hospital Follow Up Appointment Date:11/26/2024 01:30:00 PM Scheduled Provider:Alexx Nicole PA-C [facility] [place] [facility] Type:Cardiology Follow Up (FT) Appointment Date:01/11/2025 11:40:00 AM Scheduled Provider:Deonte ROSARIO MD Location:[facility] Appointment Type: Open Appointment Date:08/03/2025 11:00:00 AM Scheduled Provider: Location:[facility] Appointment Type: Medicare Wellness Subsequent Future Scheduled Tests Laboratory* HgbA1c 07/07/24 * Urinalysis with Micro 07/07/24 * CBC w/ Auto Diff 07/07/24 * Comprehensive Metabolic Panel 07/07/24 * Lipid Panel 07/07/24 * Lipid Panel 08/16/24 [facility] 05-30-2025 NotePatient Education - Text Pulmonary Medicine Asthma Attack Asthma attack, also called asthma flare or acute bronchospasm, is the sudden narrowing and tightening of the lower airways (bronchi) in the lungs, that can make it hard to breathe. The narrowing is caused by inflammation and tightening of the smooth muscle that wraps around the lower airways in thelungs. Asthma attacks may cause coughing, high-pitched whistling sounds when you breathe, most often when you breathe out (wheezing), trouble breathing (shortness of breath), and chest pain. The airways mayproduce extra mucus caused by the inflammation and irritation. During an asthma attack, it can be di fficult to breathe. It is important to get treatment right away. Asthma attacks can range from minor to life-threatening. What are the causes? Possible causes or triggers of this condition include: ??? Household allergens like dust, pet dander, and cockroaches. ??? Mold and pollen from trees or grass. ??? Air pollutants such as household sandwich and drink cart operator, aerosol sprays, strong odors, and smoke of any kind. ??? Weather changes and cold air. ??? Stress or strong emotions such as crying or laughing hard. ??? Exercise or activity that requires a lot of energy. ??? Certain medicines or medical conditions such as: ? Aspirin or beta-blockers. ? Infections or inflammatory conditions, such as a flu (influenza), a cold, pneumonia, or inflammation of the nasal membranes (rhinitis). ? Gastroesophageal reflux disease (GERD). GERD is a condition in which stomach acid backs up into your esophagus and spills into your trachea (windpipe), which can irritate your airways. What are the signs or symptoms? Symptoms of this condition include: ??? Wheezing. ??? Excessive coughing. This may only happen at night. ??? Chest tightness or pain. ??? Shortness of breath. ??? Difficulty talking in complete sentences. ??? Feeling like you cannot get enough air, no matter how hard you breathe (air hunger). How is this diagnosed? This condition may be diagnosed based on: ??? A physical exam and your medical history. ??? Your symptoms. ??? Tests to check for other causes of your symptoms or other conditions that may have triggered your asthma attack. These tests may include: ? A chest X-ray. ? Blood tests. ? Lung function studies (spirometry) to evaluate the flow of air in your lungs. How is this treated? Treatment for this condition depends on the severity and cause of your asthma attack. ??? For mild attacks, you may receive medicines through a hand-held inhaler (metered dose inhaler or MDI) or through a device that turns liquid medicine into a mist (nebulizer). These medicines include: ? Quick relief or rescue medicines that quickly relax the airways and lungs. ? Long-acting medicines that are used daily to prevent (control) your asthma symptoms. ??? For moderate or severe attacks, you may be treated with steroid medicines by mouth or through an IV injection at the hospital. ??? For severe attacks, you may need oxygen therapy or a breathing machine (ventilator). ??? If your asthma attack was caused by an infection from bacteria, you will be given antibiotic medicines. Follow these instructions at home: Medicines ??? Take gdjw-grk-qdaierg and prescription medicines only as told by your health care provider. ??? If you were prescribed an antibiotic medicine, take it as told by your health care provider. Donot stop using the antibiotic even if you start to feel better. ??? Tell your doctor if you are or may be to make sure your asthma medicine is safe to use during . Avoiding triggers ??? Keep track of things that trigger your asthma attacks. Avoid exposure to these triggers. ??? Do not use any products that contain nicotine or tobacco. These products include cigarettes, chewing tobacco, and vaping devices, such as e-cigarettes. If you need help quitting, ask your health care provider. ??? When there is a lot of pollen, air pollution, or humidity, keep windows closed and use an air conditioner or go to places with air conditioning. Asthma action plan ??? Work with your health care provider to make a written plan for managing and treating your asthma attacks (asthma action plan). This plan should include: ? A list of your asthma triggers and how to avoid them. ? A list of symptoms that you may have during an asthma attack. ? Information about which medicine to take, when to take the medicine, and how much of the medicineto take. ? Information to help you understand your peak flow measurements. ? Daily actions that you can take to control your asthma symptoms. ? Contact information for your health care providers. ??? If you have an asthma attack, act quickly. Follow the emergency steps on your written asthma action plan. This may prevent you from needing to go to the hospital. ?? (more content not included)...[facility]05-30-2025 Note Discharge Summary Admission and Discharge Information Admitting Physician - Pranav Sibley III, DO Admitting Diagnoses: 1. Asthma exacerbation, 10/07/2024 Discharge Order Date Discharge Patient - Ordered -- 10/08/24 13:19:00 EDT Discharge Diagnoses 1. Asthma exacerbation, 10/07/2024 2. Acute hypoxemic respiratory failure, 10/07/2024 3. Chronic kidney disease (CKD), stage III (moderate), 10/07/2024 4. CAD (coronary artery disease), 10/07/2024 5. History of CVA in adulthood, 10/07/2024 6. HTN - Hypertension, 10/07/2024 7. At risk for falls, 10/07/2024 8. History of esophageal stricture, 10/08/2024 Chest pressure - Adult, 10/07/2024 Cough, 10/07/2024 Respiratory problem, 10/07/2024 Procedure History Cardiac catheterization, left heart (01/21/2024), PCI - Percutaneous coronary intervention (01/21/2024), Colonoscopy (03/18/2022), Colonoscopy (03/18/2022), Radiofrequency ablation of [...] extraction, D&C - Dilatation and curettage, EGD, Esophagogastroduodenoscopy, kidney artery left stent placement, Removal of ovarian cyst, Stents, bilateral legs. Hospital Course The patient is a an 89-year-old female with past medical history of asthma entheses carries a diagnosis of COPD, however, never smoked and previous PFTs consistent with asthma and seen by pulmonologywho agreed), CAD ( prior PCI in 2020 and most recently in January 2024, complicated by dissectionof the left main artery. She underwent PCI to the left main artery and LAD with drug-eluting stents), HTN, CVA, HLD, and CKD 3B admitted to [facility] on 10/07/2024 under observation for acute hypoxic respiratory failure secondary to asthma exacerbation/asthma attack. Prior to presentation, she had been eating breakfast and feeling in her usual state of health. She stated that she felt she got so mething stuck in her throat. She did endorse a history of esophageal stricture with previous esophageal dilation. Takes PPI. She states that she had acute onset shortness of breath. She was tachypneic and hypoxic in the ED. Was given breathing treatments and Solu-Medrol IV. Admitted for observation. Was able to be weaned to room air and did not require any further oxygen on discharge. Was seen byphysical therapy and Occupational Therapy and had good performance and did not require any outpatient therapy needs. On the morning of 10/08/2024 she ate her entire breakfast without incident, however, she did have a pill get stuck in her throat that caused her significant discomfort. It was relieved with small dose of morphine and a GI cocktail and eventually the pill passed. I spoke with GI about this and they recommended close outpatient follow-up with a repeat outpatient EGD and possible esophageal dilation. She had no difficulty initiating swallowing and had tolerated multiple meals whileadmitted. She was medically stable for discharge home back to assisted living on 10/08/2024. Follow-up PCP in 7 to 10 days GI in 1 week. Needs outpatient EGD. Medication changes No chronic medication changes. Continue PPI. Prednisone 20 mg daily x 3 days, then 10 mg daily x 3 days. Continue home Dulera and rescue inhaler. 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 On room air ENMT: Normal oral mucosa Cardiovascular: regular rate and rhythm, no murmur, normal peripheral perfusion Respiratory: Lungs CTA respirations non labored Extremities: no deformity, no trauma, no edema Neurological: oriented x 4, LOC appropriate for age, CN II-XII intact, motor strength equal & normal bilaterally, sensation equal & normal bilaterally, speech normal Tests Performed Blood Culture Charcoal -- Results Pending -- XR Chest Single View Please visit your patient portal for your results or contact your primary care physician. Discharge Plan Discharge Disposition Discharged to - Assisted living Discharge Diet Discharge Diet(s): Regular (10/08/24 13:18:00) Discharge Medication List Prescriptions Albuterol (Eqv-Proventil HFA) 90 mcg/ (more content not included)...[facility]:Result Comment: Electronically Signed By: Pranav Sibley III, DO.michael\Date and Time Signed: 10/08/24 13:23 EDT 10-08-2024 NoteInterdisciplinary Note - PT PT Evaluation done this date. Pt. with on AM-PAC this date. 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 No further PT needs.[facility]05-29-2025 Note History and Physical Chief Complaint SOB History of Present Illness The patient is a an 89-year-old female with past medical history of asthma entheses carries a diagnosis of COPD, however, never smoked and previous PFTs consistent with asthma and seen by pulmonologywho agreed), CAD status post stenting, HTN, CVA, HLD, and CKD 3B who presented to [facility], ER on 10/07/2024 after experiencing some shortness of breath that began this morning after eating breakfast. She states that she was eating cereal and felt as if she had something stuck down in her distalesophagus/chest and had subsequent shortness of breath. She denied any choking, coughing, or difficulty initiating swallowing. She was given steroids and breathing treatments in the ER with significant improvement in her symptoms. She did have some noted hypoxia with ambulation 88% and this improved with oxygen 2 L nasal cannula. She was noted to have some tachypnea as well. On my exam, the patient was on 2 L and was in no distress. She had diminished lung sounds bilaterally. She stated that she had felt somewhat unsteady on her feet. During my exam, I discontinued her oxygen she remained over between 98 and 100% SpO2 on room air at rest. She denies any fever, chills, chest pain, nausea, vomiting, diarrhea, dysuria, and any recent illness. EKG showed normal sinus rhythm and was nonischemic. Dynamically stable. No leukocytosis. Creatinine is 1.4 which is baseline for her with a 4 of 36. L actic acid normal and troponin negative. BNP normal. On further questioning, patient did endorse previous esophageal stricture and stretching and does note a history of GERD as well. Review of Systems Constitutional: no fever, no chills, no sweats, no weakness Respiratory: mild shortness of breath, no cough, no orthopnea, moderate wheezing Cardiovascular: no chest pain, no palpitations, no edema Additional ROS info: Except as noted in the above Review of Systems and in the History of Present Illness all other systems have been reviewed and are negative or noncontributory. Scoring Vasquez Fall Risk Score: 50 High (10/07/24) Physical Exam Vitals & Measurements T: 36.2 ???C(Oral) TMIN: 36.2 ???C(Oral) TMAX: 36.7 ???C(Oral) HR: 81(Peripheral) RR: 20 BP: 153/74SpO2: 100% HT: 157 cm WT: 65.7 kg General: alert, no acute distress, pleasant and conversational. 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 ENMT: Normal oral mucosa Cardiovascular: regular rate and rhythm, no murmur, normal peripheral perfusion Respiratory: Lungs to auscultation bilaterally, no wheeze, rhonchi, rales, respirations non labored Extremities: no deformity, no trauma, no edema Neurological: oriented x 4, LOC appropriate for age, CN II-XII intact, motor strength equal & normal bilaterally, sensation equal & normal bilaterally, speech normal Lab Results WBC: 9.8 E9/L (10/07/24 11:43:00) RBC: 4.1 E12/L Low (10/07/24 11:43:00) HGB: 12.2 gm/dL (10/07/24 11:43:00) Hct: 35.8 % (10/07/24 11:43:00) MCV: 87 fL (10/07/24 11:43:00) MCH: 29.5 pg (10/07/24 11:43:00) MCHC: 33.9 gm/dL (10/07/24 11:43:00) RDW: 15.5 % High (10/07/24 11:43:00) Platelet: 229 E9/L (10/07/24 11:43:00) MPV: 7.4 fL (10/07/24 11:43:00) Neutro Auto: 79 % High (10/07/24 11:43:00) Lymph Auto: 9.8 % Low (10/07/24 11:43:00) [place] Auto: 7.3 % (10/07/24 11:43:00) Eos Auto: 3.2 % (10/07/24 11:43:00) Basophil Auto: 0.7 % (10/07/24 11:43:00) Neutro Absolute: 7.7 E9/L High (10/07/24 11:43:00) Lymph Absolute: 1 E9/L (10/07/24 11:43:00) [place] Absolute: 0.7 E9/L (10/07/24 11:43:00) Eos Absolute: 0.3 E9/L (10/07/24 11:43:00) Basophil Absolute: 0.1 E9/L (10/07/24 11:43:00) PT: 10.9 second(s) (10/07/24 11:43:00) INR: 0.97 (10/07/24 11:43:00) PTT: 26.3 second(s) (10/07/24 11:43:00) Glucose Lvl: 103 mg/dL (10/07/24 11:43:00) BUN: 30 mg/dL High (10/07/24 11:43:00) Creatinine: 1.4 mg/dL High (10/07/24 11:43:00) eGFR: 36 mL/min/1.73 m2 Low (10/07/24 11:43:00) BUN/Creat Ratio: 21 High (10/07/24 11:43:00) Sodium Lvl: 140 mmol/L (10/07/24 11:43:00) Potassium Lvl: 4.4 mmol/L (10/07/24 11:43:00) Chloride: 106 mmol/L (10/07/24 11:43:00) CO2: 27 mmol/L (10/07/24 11:43:00) AGAP: 11 mEq/L (10/07/24 11:43:00) Calcium Lvl: 9.5 mg/dL (10/07/24 11:43:00) Alk Phos: 129 Int._Unit/L High (10/07/24 11:43:00) ALT: 11 Int._Unit/L (10/07/24 11:43:00) AST: 14 Int._Unit/L (10/07/24 11:43:00) Total Protein: 6.5 gm/dL (10/07/24 11:43:00) Albumin Lvl: 4.2 gm/dL (10/07/24 11:43:00) Globulin: 2.3 gm/dL (10/07/24 11:43:00) A/G Ratio: 1.8 (10/07/24 11:43:00) Bili Total: 0.5 mg/dL (10/07/24 11:43:00) Lactic Acid Lvl: 0.6 mmol/L (10/07/24 15:28:00) Troponin HS: 9.1 pg/mL Low (10/07/24 11:43:00) BNP: 77 pg/mL (10/07/24 11:43:00) Assessment/Plan The patient is a an 89-year-old female with past medical history of asthma entheses carries a diagnosis of COPD, however, never smoked and previous PFTs consistent with asthma (more content not included)...[facility] Comment on above:Result Comment: Electronically Signed By: Pranav Sibley III, DO\.br\Date and Time Signed: 10/07/24 18:02 [id number] NotePatient Education Caregiving Fall Prevention in the Home, Adult Falls can cause injuries and can happen to people of all ages. There are many things you can do to make your home safer and to help prevent falls. What actions can I take to prevent falls? General information ??? Use good lighting in all rooms. Make sure to: ? Replace any light bulbs that burn out. ? Turn on the lights in dark areas and use night-lights. ??? Keep items that you use often in spjb-ze-krlrr places. Lower the shelves around your home if needed. ??? Move furniture so that there are clear paths around it. ??? Do not use throw rugs or other things on the floor that can make you trip. ??? If any of your floors are uneven, fix them. ??? Add color or contrast paint or tape to clearly kapil and help you see: ? Grab bars or handrails. ? First and last steps of staircases. ? Where the edge of each step is. ??? If you use a ladder or stepladder: ? Make sure that it is fully opened. Do not climb a closed ladder. ? Make sure the sides of the ladder are locked in place. ? Have someone hold the ladder while you use it. ??? Know where your pets are as you move through your home. What can I do in the bathroom? Keep the floor dry. Clean up any water on the floor right away. ??? Remove soap buildup in the bathtub or shower. Buildup makes bathtubs and showers slippery. ??? Use non-skid mats or decals on the floor of the bathtub or shower. ??? Attach bath mats securely with double-sided, non-slip rug tape. ??? If you need to sit down in the shower, use a non-slip stool. ??? Install grab bars by the toilet and in the bathtub and shower. Do not use towel bars as grab bars. What can I do in the bedroom? Make sure that you have a light by your bed that is easy to reach. ??? Do not use any sheets or blankets on your bed that hang to the floor. ??? Have a firm chair or bench with side arms that you can use for support when you get dressed. What can I do in the kitchen? Clean up any spills right away. ??? If you need to reach something above you, use a step stool with a grab bar. ??? Keep electrical cords out of the way. ??? Do not use floor azeri or wax that makes floors slippery. What can I do with my stairs? Do not leave anything on the stairs. ??? Make sure that you have a light switch at the top and the bottom of the stairs. ??? Make sure that there are handrails on both sides of the stairs. Fix handrails that are broken or loose. ??? Install non-slip stair treads on all your stairs if they do not have carpet. ??? Avoid having throw rugs at the top or bottom of the stairs. ??? Choose a carpet that does not hide the edge of the steps on the stairs. Make sure that the carpet is firmly attached to the stairs. Fix carpet that is loose or worn. What can I do on the outside of my home? Use bright outdoor lighting. ??? Fix the edges of walkways and driveways and fix any cracks. Clear paths of anything that can make you trip, such as tools or rocks. ??? Add color or contrast paint or tape to clearly kapil and help you see anything that might make you trip as you walk through a door, such as a raised step or threshold. ??? Trim any bushes or trees on paths to your home. ??? Check to see if handrails are loose or broken and that both sides of all steps have handrails. Install guardrails along the edges of any raised decks and porches. ??? Have leaves, snow, or ice cleared regularly. Use sand, salt, or ice melter on paths if you livewhere there is ice and snow during the winter. ??? Clean up any spills in your garage right away. This includes grease or oil spills. What other actions can I take? Review your medicines with your doctor. Some medicines can cause dizziness or changes in blood pressure, which increase your risk of falling. ??? Wear shoes that: ? Have a low heel. Do not wear high heels. ? Have rubber bottoms and are closed at the toe. ? Feel good on your feet and fit well. ??? Use tools that help you move around if needed. These include: ? Canes. ? Walkers. ? Scooters. ? Crutches. ??? Ask your doctor what else you can do to help prevent falls. This may include seeing a physical therapist to learn to do exercises to move better and get stronger. Where to find more information ??? Centers for Disease Control and Prevention, RAD[place]: cdc.gov ??? [place] [employer] A[place]: riaz.nih.gov ??? [place] [employer]: riaz.nih.gov Contact a doctor if: ??? You are afraid of falling at home. ??? You feel weak, drowsy, or dizzy at home. ??? You fall at home. Get help right away if you: ??? Lose consciousness or have trouble moving after a fall. ??? Have a fall that causes a head injury. These symptoms may be an emergency. Get help right away. Call 911. ??? Do not wait to see if the symptoms will go away. ??? Do (more content not included)...[facility]02-26-2025 Hospital Discharge instructions Patient Education 07/07/2024 14:06:00 Asthma, Adult, [id number] Asthma, Adult Asthma is a condition that causes swelling and narrowing of the airways. These are the passages that lead from the nose and mouth down into the lungs. When asthma symptoms get worse it is called an asthma attack or flare. This can make it hard to breathe. Asthma flares can range from minor to life-threatening. There is no cure for asthma, but medicines and lifestyle changes can help to control it. What are the causes? It is not known exactly what causes asthma, but certain things can cause asthma symptoms to get worse (triggers). What can trigger an asthma attack? Cigarette smoke. Mold. Dust. Your pet's skin flakes (dander). Cockroaches. Pollen. Air pollution (like household sandwich and drink cart operator, wood smoke, smog, or chemical odors). What are the signs or symptoms? Trouble breathing (shortness of breath). Coughing. Making high-pitched whistling sounds when you breathe, most often when you breathe out (wheezing). Chest tightness. Tiredness with little activity. Poor exercise tolerance. How is this treated? Controller medicines that help prevent asthma symptoms. Fast-acting reliever or rescue medicines. These give short-term relief of asthma symptoms. Allergy medicines if your attacks are brought on by allergens. Medicines to help control the body's defense (immune) system. Staying away from the things that cause asthma attacks. Follow these instructions at home: Avoiding triggers in your home Do not allow anyone to smoke in your home. Limit use of fireplaces and wood stoves. Get rid of pests (such as roaches and mice) and their droppings. Keep your home clean. ?Clean your floors. Dust regularly. Use cleaning products that do not smell. ?Wash bed sheets and blankets every week in hot water. Dry them in a dryer. ?Have someone vacuum when you are not home. ?Change your heating and air conditioning filters often. Use blankets that are made of polyester or cotton. General instructions Take gggd-zhz-nksosof and prescription medicines only as told by your doctor. Do not smoke or use any products that contain nicotine or tobacco. If you need help quitting, ask your doctor. ?Stay away from secondhand smoke. Avoid doing things outdoors when allergen counts are high and when air quality is low. Warm up before you exercise. Take time to cool down after exercise. Use a peak flow meter as told by your doctor. A peak flow meter is a tool that measures how well your lungs are working. ?Keep track of the peak flow meter's readings. Write them down. Follow your asthma action plan. This is a written plan for taking care of your asthma and treating your attacks. Make sure you get all the shots (vaccines) that your doctor recommends. Ask your doctor about a flushot and a pneumonia shot. Keep all follow-up visits. Contact a doctor if: You have wheezing, shortness of breath, or a cough even while taking medicine to prevent attacks. The mucus you cough up (sputum) is thicker than usual. The mucus you cough up changes from clear or white to yellow, green, hansen, or is bloody. You have problems from the medicine you are taking, such as: ?A rash. ?Itching. ?Swelling. ?Trouble breathing. You need reliever medicines more than 2 3 times a week. Your peak flow reading is still at 50 79% of your personal best after following the action plan for1 hour. You have a fever. Get help right away if: You seem to be worse and are not responding to medicine during an asthma attack. You are short of breath even at rest. You get short of breath when doing very little activity. You have trouble eating, drinking, or talking. You have chest pain or tightness. You have a fast heartbeat. Your lips or fingernails start to turn blue. You are light-headed or dizzy, or you faint. Your peak flow is less than 50% of your personal best. You feel too tired to breathe normally. These symptoms may be an emergency. Get help right away. Call 911. Do not wait to see if the symptoms will go away. Do not drive yourself to the hospital. Summary Asthma is a long-term (chronic) condition in which the airways get tight and narrow. An asthma attack can make it hard to breathe. Asthma cannot be cured, but medicines and lifestyle changes can help control it. Make sure you understand how to avoid triggers and how and when to use your medicines. Avoid things that can cause allergy symptoms (allergens). These include animal skin flakes (dander)and pollen from trees or grass. Avoid things that pollute the air. These may include household sandwich and drink cart operator, wood smoke, smog, or chemical odors. This information is not intended to replace advice given to you by your health care provider. Make sure you discuss any questions you have with your health care provider. Document Revised: 02/04/2022 Document Reviewed: 02/04/2022 [employer] Patient Education 2023 [employer]. Follow Up Care 03/29/2024 14:30:20 With:PAULO HINOJOSA, Deonte Turpin, MED Address: [facility] [address] [place] [address], [address] [place] [id number]- When:Within 3 Month(s) [facility] 02-26-2025 NotePatient Education Pulmonary Medicine Asthma, Adult Asthma is a condition that causes swelling and narrowing of the airways. These are the passages that lead from the nose and mouth down into the lungs. When asthma symptoms get worse it is called an asthma attack or flare. This can make it hard to breathe. Asthma flares can range from minor to life-threatening. There is no cure for asthma, but medicines and lifestyle changes can help to control it. What are the causes? It is not known exactly what causes asthma, but certain things can cause asthma symptoms to get worse (triggers). What can trigger an asthma attack? Cigarette smoke. ??? Mold. ??? Dust. ??? Your pet's skin flakes (dander). ??? Cockroaches. ??? Pollen. ??? Air pollution (like household sandwich and drink cart operator, wood smoke, smog, or chemical odors). What are the signs or symptoms? Trouble breathing (shortness of breath). ??? Coughing. ??? Making high-pitched whistling sounds when you breathe, most often when you breathe out (wheezing). ??? Chest tightness. ??? Tiredness with little activity. ??? Poor exercise tolerance. How is this treated? Controller medicines that help prevent asthma symptoms. ??? Fast-acting reliever or rescue medicines. These give short-term relief of asthma symptoms. ??? Allergy medicines if your attacks are brought on by allergens. ??? Medicines to help control the body's defense (immune) system. ??? Staying away from the things that cause asthma attacks. Follow these instructions at home: Avoiding triggers in your home ??? Do not allow anyone to smoke in your home. ??? Limit use of fireplaces and wood stoves. ??? Get rid of pests (such as roaches and mice) and their droppings. ??? Keep your home clean. ? Clean your floors. Dust regularly. Use cleaning products that do not smell. ? Wash bed sheets and blankets every week in hot water. Dry them in a dryer. ? Have someone vacuum when you are not home. ? Change your heating and air conditioning filters often. ??? Use blankets that are made of polyester or cotton. General instructions ??? Take jcma-urf-ymfsyin and prescription medicines only as told by your doctor. ??? Do not smoke or use any products that contain nicotine or tobacco. If you need help quitting, ask your doctor. ? Stay away from secondhand smoke. ??? Avoid doing things outdoors when allergen counts are high and when air quality is low. ??? Warm up before you exercise. Take time to cool down after exercise. ??? Use a peak flow meter as told by your doctor. A peak flow meter is a tool that measures how well your lungs are working. ? Keep track of the peak flow meter's readings. Write them down. ??? Follow your asthma action plan. This is a written plan for taking care of your asthma and treating your attacks. ??? Make sure you get all the shots (vaccines) that your doctor recommends. Ask your doctor about aflu shot and a pneumonia shot. ??? Keep all follow-up visits. Contact a doctor if: ??? You have wheezing, shortness of breath, or a cough even while taking medicine to prevent attacks. ??? The mucus you cough up (sputum) is thicker than usual. ??? The mucus you cough up changes from clear or white to yellow, green, hansen, or is bloody. ??? You have problems from the medicine you are taking, such as: ? A rash. ? Itching. ? Swelling. ? Trouble breathing. ??? You need reliever medicines more than 2?3 times a week. ??? Your peak flow reading is still at 50?79% of your personal best after following the action planfor 1 hour. ??? You have a fever. Get help right away if: ??? You seem to be worse and are not responding to medicine during an asthma attack. ??? You are short of breath even at rest. ??? You get short of breath when doing very little activity. ??? You have trouble eating, drinking, or talking. ??? You have chest pain or tightness. ??? You have a fast heartbeat. ??? Your lips or fingernails start to turn blue. ??? You are light-headed or dizzy, or you faint. ??? Your peak flow is less than 50% of your personal best. ??? You feel too tired to breathe normally. These symptoms may be an emergency. Get help right away. Call 911. ??? Do not wait to see if the symptoms will go away. ??? Do not drive yourself to the hospital. Summary ??? Asthma is a long-term (chronic) condition in which the airways get tight and narrow. An asthma attack can make it hard to breathe. ??? Asthma cannot be cured, but medicines and lifestyle changes can help control it. ??? Make sure you understand how to avoid triggers and how and when to use your medicines. ??? Avoid things that can cause allergy symptoms (allergens). These include animal skin flakes (dander) and pollen from trees or grass. ??? Avoid things that pollute the air. These may include household sandwich and drink cart operator, wood smoke, smog, or chemical odors. This information is not intended to (more content not included)...[facility]11-18-2024 Hospital Discharge instructions Patient Education 03/29/2024 14:22:38 Asthma, Adult, [id number] Asthma, Adult Asthma is a condition that causes swelling and narrowing of the airways. These are the passages that lead from the nose and mouth down into the lungs. When asthma symptoms get worse it is called an asthma attack or flare. This can make it hard to breathe. Asthma flares can range from minor to life-threatening. There is no cure for asthma, but medicines and lifestyle changes can help to control it. What are the causes? It is not known exactly what causes asthma, but certain things can cause asthma symptoms to get worse (triggers). What can trigger an asthma attack? Cigarette smoke. Mold. Dust. Your pet's skin flakes (dander). Cockroaches. Pollen. Air pollution (like household sandwich and drink cart operator, wood smoke, smog, or chemical odors). What are the signs or symptoms? Trouble breathing (shortness of breath). Coughing. Making high-pitched whistling sounds when you breathe, most often when you breathe out (wheezing). Chest tightness. Tiredness with little activity. Poor exercise tolerance. How is this treated? Controller medicines that help prevent asthma symptoms. Fast-acting reliever or rescue medicines. These give short-term relief of asthma symptoms. Allergy medicines if your attacks are brought on by allergens. Medicines to help control the body's defense (immune) system. Staying away from the things that cause asthma attacks. Follow these instructions at home: Avoiding triggers in your home Do not allow anyone to smoke in your home. Limit use of fireplaces and wood stoves. Get rid of pests (such as roaches and mice) and their droppings. Keep your home clean. ?Clean your floors. Dust regularly. Use cleaning products that do not smell. ?Wash bed sheets and blankets every week in hot water. Dry them in a dryer. ?Have someone vacuum when you are not home. ?Change your heating and air conditioning filters often. Use blankets that are made of polyester or cotton. General instructions Take dbqb-fsc-ejkgktt and prescription medicines only as told by your doctor. Do not smoke or use any products that contain nicotine or tobacco. If you need help quitting, ask your doctor. ?Stay away from secondhand smoke. Avoid doing things outdoors when allergen counts are high and when air quality is low. Warm up before you exercise. Take time to cool down after exercise. Use a peak flow meter as told by your doctor. A peak flow meter is a tool that measures how well your lungs are working. ?Keep track of the peak flow meter's readings. Write them down. Follow your asthma action plan. This is a written plan for taking care of your asthma and treating your attacks. Make sure you get all the shots (vaccines) that your doctor recommends. Ask your doctor about a flushot and a pneumonia shot. Keep all follow-up visits. Contact a doctor if: You have wheezing, shortness of breath, or a cough even while taking medicine to prevent attacks. The mucus you cough up (sputum) is thicker than usual. The mucus you cough up changes from clear or white to yellow, green, hansen, or is bloody. You have problems from the medicine you are taking, such as: ?A rash. ?Itching. ?Swelling. ?Trouble breathing. You need reliever medicines more than 2 3 times a week. Your peak flow reading is still at 50 79% of your personal best after following the action plan for1 hour. You have a fever. Get help right away if: You seem to be worse and are not responding to medicine during an asthma attack. You are short of breath even at rest. You get short of breath when doing very little activity. You have trouble eating, drinking, or talking. You have chest pain or tightness. You have a fast heartbeat. Your lips or fingernails start to turn blue. You are light-headed or dizzy, or you faint. Your peak flow is less than 50% of your personal best. You feel too tired to breathe normally. These symptoms may be an emergency. Get help right away. Call 911. Do not wait to see if the symptoms will go away. Do not drive yourself to the hospital. Summary Asthma is a long-term (chronic) condition in which the airways get tight and narrow. An asthma attack can make it hard to breathe. Asthma cannot be cured, but medicines and lifestyle changes can help control it. Make sure you understand how to avoid triggers and how and when to use your medicines. Avoid things that can cause allergy symptoms (allergens). These include animal skin flakes (dander)and pollen from trees or grass. Avoid things that pollute the air. These may include household sandwich and drink cart operator, wood smoke, smog, or chemical odors. This information is not intended to replace advice given to you by your health care provider. Make sure you discuss any questions you have with your health care provider. Document Revised: 02/04/2022 Document Reviewed: 02/04/2022 [employer] Patient Education 2023 [employer]. Follow Up Care 12/31/2023 14:36:10 With:PAULO HINOJOSA, Deonte Turpin, ROCKY Address: [facility] [address] [facility], [place] [address]- When:Within 3 Month(s) [facility] 11-18-2024 NotePatient Education Pulmonary Medicine Asthma, Adult Asthma is a condition that causes swelling and narrowing of the airways. These are the passages that lead from the nose and mouth down into the lungs. When asthma symptoms get worse it is called an asthma attack or flare. This can make it hard to breathe. Asthma flares can range from minor to life-threatening. There is no cure for asthma, but medicines and lifestyle changes can help to control it. What are the causes? It is not known exactly what causes asthma, but certain things can cause asthma symptoms to get worse (triggers). What can trigger an asthma attack? Cigarette smoke. ??? Mold. ??? Dust. ??? Your pet's skin flakes (dander). ??? Cockroaches. ??? Pollen. ??? Air pollution (like household sandwich and drink cart operator, wood smoke, smog, or chemical odors). What are the signs or symptoms? Trouble breathing (shortness of breath). ??? Coughing. ??? Making high-pitched whistling sounds when you breathe, most often when you breathe out (wheezing). ??? Chest tightness. ??? Tiredness with little activity. ??? Poor exercise tolerance. How is this treated? Controller medicines that help prevent asthma symptoms. ??? Fast-acting reliever or rescue medicines. These give short-term relief of asthma symptoms. ??? Allergy medicines if your attacks are brought on by allergens. ??? Medicines to help control the body's defense (immune) system. ??? Staying away from the things that cause asthma attacks. Follow these instructions at home: Avoiding triggers in your home ??? Do not allow anyone to smoke in your home. ??? Limit use of fireplaces and wood stoves. ??? Get rid of pests (such as roaches and mice) and their droppings. ??? Keep your home clean. ? Clean your floors. Dust regularly. Use cleaning products that do not smell. ? Wash bed sheets and blankets every week in hot water. Dry them in a dryer. ? Have someone vacuum when you are not home. ? Change your heating and air conditioning filters often. ??? Use blankets that are made of polyester or cotton. General instructions ??? Take qzuv-hek-gyuxfio and prescription medicines only as told by your doctor. ??? Do not smoke or use any products that contain nicotine or tobacco. If you need help quitting, ask your doctor. ? Stay away from secondhand smoke. ??? Avoid doing things outdoors when allergen counts are high and when air quality is low. ??? Warm up before you exercise. Take time to cool down after exercise. ??? Use a peak flow meter as told by your doctor. A peak flow meter is a tool that measures how well your lungs are working. ? Keep track of the peak flow meter's readings. Write them down. ??? Follow your asthma action plan. This is a written plan for taking care of your asthma and treating your attacks. ??? Make sure you get all the shots (vaccines) that your doctor recommends. Ask your doctor about aflu shot and a pneumonia shot. ??? Keep all follow-up visits. Contact a doctor if: ??? You have wheezing, shortness of breath, or a cough even while taking medicine to prevent attacks. ??? The mucus you cough up (sputum) is thicker than usual. ??? The mucus you cough up changes from clear or white to yellow, green, hansen, or is bloody. ??? You have problems from the medicine you are taking, such as: ? A rash. ? Itching. ? Swelling. ? Trouble breathing. ??? You need reliever medicines more than 2?3 times a week. ??? Your peak flow reading is still at 50?79% of your personal best after following the action planfor 1 hour. ??? You have a fever. Get help right away if: ??? You seem to be worse and are not responding to medicine during an asthma attack. ??? You are short of breath even at rest. ??? You get short of breath when doing very little activity. ??? You have trouble eating, drinking, or talking. ??? You have chest pain or tightness. ??? You have a fast heartbeat. ??? Your lips or fingernails start to turn blue. ??? You are light-headed or dizzy, or you faint. ??? Your peak flow is less than 50% of your personal best. ??? You feel too tired to breathe normally. These symptoms may be an emergency. Get help right away. Call 911. ??? Do not wait to see if the symptoms will go away. ??? Do not drive yourself to the hospital. Summary ??? Asthma is a long-term (chronic) condition in which the airways get tight and narrow. An asthma attack can make it hard to breathe. ??? Asthma cannot be cured, but medicines and lifestyle changes can help control it. ??? Make sure you understand how to avoid triggers and how and when to use your medicines. ??? Avoid things that can cause allergy symptoms (allergens). These include animal skin flakes (dander) and pollen from trees or grass. ??? Avoid things that pollute the air. These may include household sandwich and drink cart operator, wood smoke, smog, or chemical odors. This information is not intended to (more content not included)...[facility]09-25-2024 Hospital Discharge instructions Patient Education 02/04/2024 13:21:04 Carotid Artery Disease, Uzfg-wc-Ndha Carotid Artery Disease The carotid arteries are the two main blood vessels on either side of the neck. They send blood to the brain, other parts of the head, and the neck. Carotid artery disease happens when one or both of the carotid arteries get narrow or blocked. Thiscondition is also called carotid artery stenosis. This condition increases your risk for a stroke or a transient ischemic attack (TIA). A TIA is a mini-stroke that causes stroke-like symptoms that go away quickly. What are the causes? This condition is mainly caused by a narrowing and hardening of the carotid arteries. The carotid arteries can become narrow or clogged with a buildup of plaque. Plaque includes: Fat. Cholesterol. Calcium. Other substances. What increases the risk? Having certain medical conditions, such as: ?High cholesterol. ?High blood pressure. ?Diabetes. ?Being very overweight (obese). Smoking. A family history of cardiovascular disease. Not being active or not exercising. Being male. People who are male have a higher risk of having arteries become narrow and harden earlier in life than people who are female. Being male and older than 45 years old. Being female and older than 55 years old. What are the signs or symptoms? This condition may not have any signs or symptoms until a stroke or TIA happens. In some cases, your doctor may be able to hear a whooshing sound with a stethoscope. This can mean a change in blood flow caused by plaque buildup. How is this treated? This condition may be treated with more than one treatment. Treatment may include: Lifestyle changes, such as: ?Quitting smoking. ?Getting regular exercise as told by your doctor. ?Eating a healthy diet. ?Managing stress. ?Getting to and staying at a healthy weight. Medicines to control: ?Blood pressure. ?Cholesterol. ?Blood clotting. Surgery. You may have: ?A surgery to remove the blockages in the carotid arteries. ?A procedure in which a small mesh tube (stent) is used to widen the blocked carotid arteries. Follow these instructions at home: Eating and drinking Follow instructions from your doctor about what you may eat and drink. It is important to: Eat a healthy diet that includes: ?A lot of fresh fruits and vegetables. ?Low-fat (lean) meats. Avoid these foods: ?Foods that are high in fat. ?Foods that are high in salt (sodium). ?Foods that are fried. ?Foods that are processed. ?Foods that have few good nutrients (poor nutritional value). Lifestyle Keep a healthy weight. Do exercises as told by your doctor to stay active. Each week, you should get one of the following: ?At least 150 minutes of exercise that raises your heart rate and makes you sweat. ?At least 75 minutes of exercise that takes a lot of effort. Do not smoke or use any products that contain nicotine or tobacco. If you need help quitting, ask your doctor. Do not drink alcohol if: ?Your doctor [...] use drugs. Manage your stress. Ask your doctor for tips on how to do this. General instructions Take loeq-xpj-rcodgep and prescription medicines only as told by your doctor. Keep all follow-up visits. Your doctor will watch your condition and may need to change your treatment plan over time. Where to find more information [place] [employer]: heart.org Get help right away if: You have any signs of a stroke. BE FAST is an easy way to remember the main warning signs: ?B - Balance. Signs are dizziness, sudden trouble walking, or loss of balance. ?E - Eyes. Signs are trouble seeing or a change in how you see. ?F - Face. Signs are sudden weakness or loss of feeling of the face, or the face or eyelid droopingon one side. ?A - Arms. Signs are weakness or loss of feeling in an arm. This happens suddenly and usually on one side of the body. ?S - Speech. Signs are sudden trouble speaking, slurred speech, or trouble understanding what people say. ?T - Time. Time to call emergency services. Write down what time symptoms started. You have other signs of a stroke, such as: ?A sudden, very bad headache with no known cause. ?Feeling like you may vomit (nausea). ?Vomiting. ?A seizure. These symptoms may be an emergency. Get help right away. Call 911. Do not wait to see if the symptoms will go away. Do not drive yourself to the hospital. This information is not intended to replace advice given to you by your health care provider. Make sure you discuss any questions you have with your health care provider. Document Revised: 09/24/2022 Document Reviewed: 09/24/2022 [employer] Patient Education 2023 [employer]. Follow Up Care 01/22/2024 09:58:30 With:PAULO HINOJOSA, Deonte Turpin, ROCKY Address: [facility] [address], [place] [address]- When: Unknown Comments:at regular appt but sooner if needed. [facility] 09-25-2024 NotePatient Education Neurology Carotid Artery Disease The carotid arteries are the two main blood vessels on either side of the neck. They send blood to the brain, other parts of the head, and the neck. Carotid artery disease happens when one or both of the carotid arteries get narrow or blocked. Thiscondition is also called carotid artery stenosis. This condition increases your risk for a stroke or a transient ischemic attack (TIA). A TIA is a mini-stroke that causes stroke-like symptoms that go away quickly. What are the causes? This condition is mainly caused by a narrowing and hardening of the carotid arteries. The carotid arteries can become narrow or clogged with a buildup of plaque. Plaque includes: ? Fat. ? Cholesterol. ? Calcium. ? Other substances. What increases the risk? ? Having certain medical conditions, such as: ? High cholesterol. ? High blood pressure. ? Diabetes. ? Being very overweight (obese). ? Smoking. ? A family history of cardiovascular disease. ? Not being active or not exercising. ? Being male. People who are male have a higher risk of having arteries become narrow and harden earlier in life than people who are female. ? Being male and older than 45 years old. ? Being female and older than 55 years old. What are the signs or symptoms? ? This condition may not have any signs or symptoms until a stroke or TIA happens. ? In some cases, your doctor may be able to hear a whooshing sound with a stethoscope. This can mean a change in blood flow caused by plaque buildup. How is this treated? This condition may be treated with more than one treatment. Treatment may include: ? Lifestyle changes, such as: ? Quitting smoking. ? Getting regular exercise as told by your doctor. ? Eating a healthy diet. ? Managing stress. ? Getting to and staying at a healthy weight. ? Medicines to control: ? Blood pressure. ? Cholesterol. ? Blood clotting. ? Surgery. You may have: ? A surgery to remove the blockages in the carotid arteries. ? A procedure in which a small mesh tube (stent) is used to widen the blocked carotid arteries. Follow these instructions at home: Eating and drinking Follow instructions from your doctor about what you may eat and drink. It is important to: ? Eat a healthy diet that includes: ? A lot of fresh fruits and vegetables. ? Low-fat (lean) meats. ? Avoid these foods: ? Foods that are high in fat. ? Foods that are high in salt (sodium). ? Foods that are fried. ? Foods that are processed. ? Foods that have few good nutrients (poor nutritional value). Lifestyle ? Keep a healthy weight. ? Do exercises as told by your doctor to stay active. Each week, you should get one of the following: ? At least 150 minutes of exercise that raises your heart rate and makes you sweat. ? At least 75 minutes of exercise that takes a lot of effort. ? Do not smoke or use any products that contain nicotine or tobacco. If you need help quitting, askyour doctor. ? Do not drink alcohol if: ? [...] drugs. ? Manage your stress. Ask your doctor for tips on how to do this. General instructions ? Take pcqk-kyp-jeuessn and prescription medicines only as told by your doctor. ? Keep all follow-up visits. Your doctor will watch your condition and may need to change your treatment plan over time. Where to find more information ? [place] [employer]: heart.org Get help right away if: ? You have any signs of a stroke. BE FAST is an easy way to remember the main warning signs: ? B - Balance. Signs are dizziness, sudden trouble walking, or loss of balance. ? E - Eyes. Signs are trouble seeing or a change in how you see. ? F - Face. Signs are sudden weakness or loss of feeling of the face, or the face or eyelid drooping on one side. ? A - Arms. Signs are weakness or loss of feeling in an arm. This happens suddenly and usually on one side of the body. ? S - Speech. Signs are sudden trouble speaking, slurred speech, or trouble understanding what people say. ? T - Time. Time to call emergency services. Write down what time symptoms started. ? You have other signs of a stroke, such as: ? A sudden, very bad headache with no known cause. ? Feeling like you may vomit (nausea). ? Vomiting. ? A seizure. These symptoms may be an emergency. Get help right away. Call 911. ? Do not wait to see if the symptoms will go away. ? Do not driv (more content not included)...[facility] 01-23-2024 Hospital Discharge instructions Patient Education 01/23/2024 16:36:22 Coronary Angioplasty, Care After Coronary Angioplasty, Care After This sheet gives you information about how to care for yourself after your procedure. Your health care provider may also give you more specific instructions. If you have problems or questions, contact your health care provider. What can I expect after the procedure? After the procedure, it is common to have: Bruising at the site where a small, thin tube (catheter) was inserted. This usually fades within 1 2 weeks. Blood collecting in the tissue (hematoma) where the catheter was inserted. The hematoma may be painful to the touch, and it should become smaller and less tender within 1 2 weeks. Follow these instructions at home: Medicines Take tzlq-qwh-ttbgprr and prescription medicines only as told by your health care provider. If you were given a medicine to help you relax (sedative) during your procedure, it can affect you for several hours. Do not drive or operate machinery until your health care provider says that it issafe. Blood thinners may be prescribed after your procedure to improve blood flow. If you are taking blood thinners: ?Talk with your health care provider before you take any medicines that contain aspirin or NSAIDs, such as ibuprofen. These medicines increase your risk for dangerous bleeding. ?Take your medicine exactly as told, at the same time every day. ?Avoid activities that could cause injury or bruising, and follow instructions about how to preventfalls. ?Wear a medical alert bracelet or carry a card that lists what medicines you take. Insertion site care Follow instructions from your health care provider about how to take care of your insertion site. Make sure you: ?Wash your hands with soap and water for at least 20 seconds before and after you change your bandage (dressing). If soap and water are not available, use hand glass curvature gauger. ?Change your dressing as told by your health care provider. ?Gently wash the site with plain soap and water. ?Use a clean towel to pat the area dry. ?Do not rub the site. Rubbing the site may cause bleeding. ?Do not apply powder or lotion to the site. Check your insertion site every day for signs of infection. Check for: ?More redness, swelling, or pain. ?Fluid or blood. ?Warmth. ?Pus or a bad smell. Activity Return to your normal activities as told by your health care provider. Ask your health care provider what activities are safe for you. Do not lift anything that is heavier than 10 lb (4.5 kg), or the limit that you are told, for 5 days after your procedure or until your health care provider says that it is safe. Ask your health care provider when it is okay to resume sexual activity. Lifestyle Make any lifestyle changes as recommended by your health care provider. These may include: ?Managing your weight. ?Getting regular exercise. ?Managing your blood pressure. ?Limiting your alcohol intake. ?Managing other health problems, such as diabetes. ?Taking your medicines as prescribed. Do not use any products that contain nicotine or tobacco, such as cigarettes, e- cigarettes, and chewing tobacco. If you need help quitting, ask your health care provider. Eat a heart-healthy diet. This should include plenty of fresh fruits and vegetables, whole grains, lean meat, and low-fat or nonfat dairy products. Avoid foods that are: ?High in salt (sodium). ?Canned or highly processed. ?High in saturated fat or sugar. ?Fried. General instructions Do not take baths, swim, or use a hot tub until your health care provider approves. You may shower 24 48 hours after the procedure or as told by your health care provider. Keep all follow-up visits. This is important. Contact a health care provider if: You have a fever or chills. You have bleeding from the insertion site. If this happens, hold pressure on the site. You have symptoms of restenosis. Symptoms include feeling your original symptoms, such as: ?Angina. ?Chest pain. ?Shortness of breath. ?Fatigue. ?Sweating. Get help right away if: You develop chest pain or shortness of breath. You feel you may faint, or you faint. You have any of these signs of infection: ?More redness, swelling, or pain at the insertion site. ?Fluid coming from the insertion site. ?Warmth coming from your insertion site. ?Pus or a bad smell coming from the insertion site. The insertion site is bleeding, and the bleeding does not stop after 30 minutes of holding steady pressure on the site. You develop bleeding from any other place, such as from the rectum. There may be bright red blood in your urine or stool (feces), or your stool may be black or tarry. These symptoms may represent a serious problem that is an emergency. Do not wait to see if the symptoms will go away. Get medical help right away. Call your local emergency services (911 in the [place] Do not drive yourself to the hospital. Summary After a coronary angioplasty, common problems include bruising at the site where a small, thin tube(catheter) was inserted. Get help right away if you develop chest pain or shortness of breath, if bleeding does not stop after 30 minutes of holding steady pressure on the site, or if you develop bleeding from any other place. Follow instructions from your health care provider about how to take care of your insertion site and when you can resume your normal activity. This information is not intended to replace advice given to you by your health care provider. Make sure you discuss any questions you have with your health care provider. Document Revised: 10/13/2020 Document Reviewed: 10/13/2020 Remitly Patient Education 2023 [employer]z. Follow Up Care 01/19/2024 09:18:29 With:Jonathon Espinoza Address: [address] [place], [place] [address] [address] [phone] Business (1) When:02/05/2024 14:30:00 Comments:This appointment is with Alexx Nicole NP. Thank you. With:Deonte ROSARIO Address: [facility] [address], [place] [address]- Business (1) When:02/04/2024 13:00:00 [facility] [phone] NoteGetWell Learning Participants [facility] Understand[facility] Education Yes GetWell Education Video [facility]: [facility] NoteGetWell Learning Participants [facility] Understand[facility] Education Yes GetWell Education Video [facility]: [facility] NoteGetWell Understands Education Yes GetWell Education Video Getting Help When You Leave the [facility] Learning Participants [facility]09-13-2024 NoteGetWell Understands Education Yes GetWell Education Video After a Hospital Stay: Managing Appointments [facility] Learning Participants [facility]09-13-2024 NotePatient Education - Text Radiology Coronary Angioplasty, Care After This sheet gives you information about how to care for yourself after your procedure. Your health care provider may also give you more specific instructions. If you have problems or questions, contact your health care provider. What can I expect after the procedure? After the procedure, it is common to have: ? Bruising at the site where a small, thin tube (catheter) was inserted. This usually fades within 1?2 weeks. ? Blood collecting in the tissue (hematoma) where the catheter was inserted. The hematoma may be painful to the touch, and it should become smaller and less tender within 1?2 weeks. Follow these instructions at home: Medicines ? Take yipi-tur-zgiqobn and prescription medicines only as told by your health care provider. ? If you were given a medicine to help you relax (sedative) during your procedure, it can affect you for several hours. Do not drive or operate machinery until your health care provider says that it is safe. ? Blood thinners may be prescribed after your procedure to improve blood flow. If you are taking blood thinners: ? Talk with your health care provider before you take any medicines that contain aspirin or NSAIDs,such as ibuprofen. These medicines increase your risk for dangerous bleeding. ? Take your medicine exactly as told, at the same time every day. ? Avoid activities that could cause injury or bruising, and follow instructions about how to prevent falls. ? Wear a medical alert bracelet or carry a card that lists what medicines you take. Insertion site care ? Follow instructions from your health care provider about how to take care of your insertion site.Make sure you: ? Wash your hands with soap and water for at least 20 seconds before and after you change your bandage (dressing). If soap and water are not available, use hand glass curvature gauger. ? Change your dressing as told by your health care provider. ? Gently wash the site with plain soap and water. ? Use a clean towel to pat the area dry. ? Do not rub the site. Rubbing the site may cause bleeding. ? Do not apply powder or lotion to the site. ? Check your insertion site every day for signs of infection. Check for: ? More redness, swelling, or pain. ? Fluid or blood. ? Warmth. ? Pus or a bad smell. Activity ? Return to your normal activities as told by your health care provider. Ask your health care provider what activities are safe for you. ? Do not lift anything that is heavier than 10 lb (4.5 kg), or the limit that you are told, for 5 days after your procedure or until your health care provider says that it is safe. ? Ask your health care provider when it is okay to resume sexual activity. Lifestyle ? Make any lifestyle changes as recommended by your health care provider. These may include: ? Managing your weight. ? Getting regular exercise. ? Managing your blood pressure. ? Limiting your alcohol intake. ? Managing other health problems, such as diabetes. ? Taking your medicines as prescribed. ? Do not use any products that contain nicotine or tobacco, such as cigarettes, e-cigarettes, and chewing tobacco. If you need help quitting, ask your health care provider. ? Eat a heart-healthy diet. This should include plenty of fresh fruits and vegetables, whole grains, lean meat, and low-fat or nonfat dairy products. Avoid foods that are: ? High in salt (sodium). ? Canned or highly processed. ? High in saturated fat or sugar. ? Fried. General instructions ? Do not take baths, swim, or use a hot tub until your health care provider approves. You may shower 24?48 hours after the procedure or as told by your health care provider. ? Keep all follow-up visits. This is important. Contact a health care provider if: ? You have a fever or chills. ? You have bleeding from the insertion site. If this happens, hold pressure on the site. ? You have symptoms of restenosis. Symptoms include feeling your original symptoms, such as: ? Angina. ? Chest pain. ? Shortness of breath. ? Fatigue. ? Sweating. Get help right away if: ? You develop chest pain or shortness of breath. ? You feel you may faint, or you faint. ? You have any of these signs of infection: ? More redness, swelling, or pain at the insertion site. ? Fluid coming from the insertion site. ? Warmth coming from your insertion site. ? Pus or a bad smell coming from the insertion site. ? The insertion site is bleeding, and the bleeding does not stop after 30 minutes of holding steadypressure on the site. ? You develop bleeding from any other place, such as from the rectum. There may be bright red bloodin your urine or stool (feces), or your stool may be black or tarry. These symptoms may represent a serious problem that is an emergency. Do not wait to see if the symptoms (more content not included)...[facility]09-13-2024 NoteGetJefferson Health Northeast Understands Education Yes [employer] Education Video Avoiding Infections in the Hospital [facility] Learning Participants [facility]-13-2024 NoteDischarge Summary Admission and Discharge Information Admit Date/Time:01/21/2024 15:11 Admitting Physician - Jose G Doyle MD Referring Physician - Jonathon Espinoza MD Admitting Diagnoses: 1. Coronary angioplasty status, Coronary angioplasty status, Coronary angioplasty status, Coronary angioplasty status, Coronary angioplasty status 2. Essential (primary) hypertension, Essential (primary) hypertension, Essential (primary) hypertension, Essential (primary) hypertension, Essential (primary) hypertension 3. Mixed hyperlipidemia, Mixed hyperlipidemia, Mixed hyperlipidemia, Mixed hyperlipidemia, Mixed hyperlipidemia Discharge Order Date Discharge Patient - Ordered -- 01/23/24 14:25:00 EDT Discharge Diagnoses 1. Coronary angioplasty status, Coronary angioplasty status, Coronary angioplasty status, Coronary angioplasty status, Coronary angioplasty status, History of percutaneous coronary intervention 2. Essential (primary) hypertension, Essential (primary) hypertension, Essential (primary) hypertension, Essential (primary) hypertension, Essential (primary) hypertension, HTN - Hypertension 3. Hyperlipidemia, Mixed hyperlipidemia, Mixed hyperlipidemia, Mixed hyperlipidemia, Mixed hyperlipidemia, Mixed hyperlipidemia 4. Stage 3 chronic kidney disease, 01/22/2024 5. CAD (coronary artery disease), 01/22/2024 Acute URI, 01/21/2024 Anemia, 01/21/2024 Asthma exacerbation, 01/21/2024 Procedure History Cardiac catheterization, left heart (01/21/2024), PCI - Percutaneous coronary intervention (01/21/2024), Colonoscopy (03/18/2022), Colonoscopy (03/18/2022), Radiofrequency ablation of [...] extraction, D&C - Dilatation and curettage, EGD, Esophagogastroduodenoscopy, kidney artery left stent placement, Removal of ovarian cyst, Stents, bilateral legs. Hospital Course Significant Findings Mrs. Alatorre was admitted for elective cardiac cath. she had stent placement. she was monitored overnight, but the following day, she was noted to be dyspneic. she was given 1 time dose of lasix for concern for fluid overload. overall her symptoms improved. on day of discharge, she was complaining of feeling weak, but noted that she will like to be discharged. Her labs remains stable. she was discharged in stable condition. Physical Exam Vitals & Measurements T: 36.6 ?C(Axillary) TMIN: 36.6 ?C(Axillary) TMAX: 37 ?C(Axillary) HR: 80(Monitored) RR: 16 BP: 113/50 SpO2: 93% WT: 65.2 kg General: alert, no acute distress Skin: warm, dry Head: no trauma, normocephalic Neck: Trachea midline, no adenopathy, no tenderness Eye: normal conjunctiva, sclera clear ENMT: TM's clear, oral mucosa moist, no pharyngeal erythema or exudate Cardiovascular: regular rate and rhythm, normal peripheral perfusion Respiratory: Lungs CTA, respirations non labored Chest wall: no deformity. Gastrointestinal: soft, non distended, no tenderness, no guarding. Back: No tenderness, Normal ROM, Normal alignment. Extremities: no deformity, no trauma Neurological: oriented x 4, LOC appropriate for age, CN II-XII intact, motor strength equal & normal bilaterally, sensation equal & normal bilaterally, speech normal Psychiatric: cooperative, affect appropriate for age, normal judgement, normal psychiatric thoughts. Tests Performed CV Cardiovascular -- Results Pending -- CV Coronary IVUS Initial -- Results Pending -- XR Chest Single View Please visit your patient portal for your results or contact your primary care physician. Discharge Plan Discharge Disposition Discharge To, Anticipated II - Assisted living Discharge Medication List Prescriptions Albuterol (Eqv-Proventil HFA) 90 mcg/inh inhalation aerosol, 2 puff(s), Inhalation, q6hr amLODIPine 5 mg Tab, 5 mg= 1 tab(s), Oral, Daily, 11 refills atorvastatin 80 mg Tab, 80 mg= 1 tab(s), Oral, Bedtime Atrovent 0.03% [place], 2 spray(s), Nasal, TID, PRN, 1 refills carvedilol 25 mg Tab, 25 mg= 1 tab(s), Oral, BID, 3 refills cloNIDine 0.1 mg tab, 0.1 mg, Oral, BID, 3 refills ferrous sulfate 325 mg oral enteric coated tablet, 325 mg= 1 tab(s), Oral, Daily, 5 refills isosorbide mononitrate 30 mg ER Tab, 15 mg= 0.5 tab(s), Oral, BID, 11 refills pantoprazole 40 mg Oral EC Tab, 40 mg, Oral, Daily, 3 refills spironolactone 25 mg Tab, 25 mg= 1 tab(s), Oral, Daily, 5 refills Home acetaminophen, 325 mg, Oral (more content not included)...[facility] CenterComment on above:Result Comment: Electronically Signed By: Vivek HINOJOSA, Jose G Kc\.br\Date and Time Signed: 01/23/24 14:33 [id number] Evaluation + Plan noteExtracted from:Title:Discharge NoteAuthor:Jose G Doyle MDDate: 01/23/24 Discharge To, Anticipated II - Assisted living Prescriptions Albuterol (Eqv-Proventil HFA) 90 mcg/inh inhalation aerosol, 2 puff(s), Inhalation, q6hr amLODIPine 5 mg Tab, 5 mg= 1 tab(s), Oral, Daily, 11 refills atorvastatin 80 mg Tab, 80 mg= 1 tab(s), Oral, Bedtime Atrovent 0.03% [place], 2 spray(s), Nasal, TID, PRN, 1 refills carvedilol 25 mg Tab, 25 mg= 1 tab(s), Oral, BID, 3 refills cloNIDine 0.1 mg tab, 0.1 mg, Oral, BID, 3 refills ferrous sulfate 325 mg oral enteric coated tablet, 325 mg= 1 tab(s), Oral, Daily, 5 refills isosorbide mononitrate 30 mg ER Tab, 15 mg= 0.5 tab(s), Oral, BID, 11 refills pantoprazole 40 mg Oral EC Tab, 40 mg, Oral, Daily, 3 refills spironolactone 25 mg Tab, 25 mg= 1 tab(s), Oral, Daily, 5 refills Home acetaminophen, 325 mg, Oral, q6hr, PRN aspirin 81 mg oral tablet, 81 mg= 1 tab(s), Oral, Daily Cequa 0.09% ophthalmic solution, Eye-Both, q12hr docusate sodium 100 mg Cap, 100 mg= 1 cap(s), Oral, BID, PRN MiraLax, 17 gm, Oral, Daily nitroglycerin 0.4 mg sublingual Tab, 0.4 mg= 1 tab(s), SubLingual, q5min, PRN ondansetron 4 mg Tab, 4 mg= 1 tab(s), Oral, q8hr ticagrelor 90 mg oral tablet, 90 mg= 1 tab(s), Oral, BID traZODONE 50 mg Tab, 25 mg= 0.5 tab(s), Oral, Bedtime With When Contact Information Jonathon Espinoza 02/05/2024 02:30 PM EDT [address] [place] [id number]- [phone] Business (1) Additional Instructions: This appointment is with Alexx Nicole NP. Thank you. Deonte ROSARIO 02/04/2024 01:00 PM EDT [facility] [address], [place] [address]- Business (1) Additional Instructions: Addendum by Jose G Doyle MD on January 23, 2024 14:32:59 EDT Time spent in discharge of patient is greater than 30 minutes Extracted from:Title:APSO NoteAuthor:Jose G Doyle MDDate:01/22/24 Goal: 1. evaluation of cardiac status due to symptomatic conversational dyspnea. 2. chest X ray 3. 1 time dose of lasix, if possible monitor urine output 4. Desat oxygen study 1. History of percutaneous coronary intervention (Z98.61: Coronary angioplasty status) Coronary artery disease s/p stent placement successful stent placement on 01/20. mid and proximal LAD stent placement continue ASA and Brilinta appreciate cardiology recommendation lifestyle and risk modifications Ordered: Basic Metabolic Panel CBC w/ Auto Diff eGFR Initial Hospital Care/Day High 75 Minutes 66761 Initial Hospital Care/Day Moderate 55 Minutes 79328 Sbsq Hospital Care/Day High 50 Minutes 14235 TSH With T4fr Reflex 2. HTN - Hypertension (I10: Essential (primary) hypertension) continue current medications on Imdur and coreg. this doesn't seem to provide adequate control possible addition of another antihypertensive agent. However, will monitor her BP in the next 24 hours to see if the two agents noted above will controlher BP adequately Ordered: Basic Metabolic Panel CBC w/ Auto Diff eGFR Initial Hospital Care/Day High 75 Minutes 24329 Initial Hospital Care/Day Moderate 55 Minutes 91094 Sbsq Hospital Care/Day High 50 Minutes 93731 TSH With T4fr Reflex 3. Hyperlipidemia (E78.2: Mixed hyperlipidemia) continue Lipitor Ordered: Basic Metabolic Panel CBC w/ Auto Diff eGFR Initial Hospital Care/Day High 75 Minutes 91048 Initial Hospital Care/Day Moderate 55 Minutes 35470 [facility] Hospital Care/Day High 50 Minutes 15058 TSH With T4fr Reflex 4. Stage 3 chronic kidney disease (N18.3: Chronic kidney disease, stage 3 (moderate)) overall this is stable will continue to monitor will encourage adequate oral intake no additional need for IV fluid unless renal function begins to worsen Ordered: [facility] Hospital Care/Day High 50 Minutes 54080 5. CAD (coronary artery disease) (I25.10: Atherosclerotic heart disease of [place] coronary artery without angina pectoris) management as noted above Ordered: [facility] Hospital Care/Day High 50 Minutes 20453 Acute URI (J06.9: Acute upper respiratory infection, unspecified) Ordered: albuterol, 2.5 mg, 3 mL, Soln-Inh, Inhalation, BID, Routine, Start date 01/21/24 20:00:00 EDT Anemia (D64.9: Anemia, unspecified) Ordered: ferrous sulfate, 325 mg = 1 tab(s), Tab, Oral, Daily, Routine, Start date 01/22/24 9:00:00 EDT, 01/21/24 16:41:00 EDT Asthma exacerbation (J45.901: Unspecified asthma with (acute) exacerbation) Ordered: albuterol, 2.5 mg, 3 mL, Soln-Inh, Inhalation, BID, Routine, Start date 01/21/24 20:00:00 EDT Orders: amlodipine, 5 mg = 1 tab(s), Tab, Oral, Daily, Routine, Start date 01/22/24 9:00:00 EDT, 01/21/24 16:40:00 EDT aspirin, 81 mg = 1 tab(s), Tab-EC, Oral, Daily, Routine, Start date 01/22/24 9:00:00 EDT, 01/21/24 16:40:00 EDT atorvastatin, 80 mg = 2 tab(s), Tab, Oral, Bedtime, Routine, Start date 01/21/24 21:00:00 EDT, 01/21/24 16:41:00 EDT carvedilol, 25 mg = 1 tab(s), Tab, Oral, BID, Routine, Start date 01/21/24 21:00:00 EDT, 01/21/24 16:41:00 EDT docusate, 100 mg = 1 cap(s), Cap, Oral, BID PRN Constipation, Routine, Start date 01/21/24 16:41:00EDT, 01/21/24 16:41:00 EDT furosemide, 40 mg = 4 mL, Injection, IV Push, Once, Stop date 01/22/24 8:00:00 EDT, Routine, Start date 01/22/24 8:00:00 EDT, 01/22/24 7:59:00 EDT isosorbide mononitrate, 15 mg = 0.5 tab(s), Tab-ER, Oral, BID, Routine, Start date 01/21/24 21:00:00 EDT, 01/21/24 16:41:00 EDT ocular lubricant, 2 drop(s), Soln-Opth, OPTH, QID, Routine, Start date 01/21/24 21:00:00 EDT ondansetron, 4 mg = 1 tab(s), Tab-Dis, Oral, q8hr PRN Nausea, Routine, Start date 01/21/24 16:57:00EDT pantoprazole, 40 mg = 1 tab(s), Tab-DR, Oral, Daily, Routine, Start date 01/22/24 9:00:00 EDT polyethylene glycol 3350, 17 gm = 1 EA, Powder-Recon, Oral, Daily, Routine, Start date 01/22/24 9:00:00 EDT, 01/21/24 16:42:00 EDT ticagrelor, 90 mg = 1 tab(s), Tab, Oral, BID, Routine, Start date 01/21/24 21:00:00 EDT, 01/21/24 16:42:00 EDT Add on Test Add on Test Basic Metabolic Panel Cardiac Monitoring CBC w/ Auto Diff Change Attending Occupational Therapy Evaluate Patient, Develop a Plan of Care and Implement Plan Oxygen Desaturation Study Physical Therapy Evaluate Patient, Develop a Plan of Care and Implement Plan XR Chest Single View Extracted from:Title:Admission H & PAuthor:Jose G Doyle MDDate:01/21/24 1. History of percutaneous c oronary intervention (Z98.61: Coronary angioplasty status) resume antiplalet consult cardiology continue statin, asa and plavix Ordered: Basic Metabolic Panel CBC w/ Auto Diff Initial Hospital Care/Day High 75 Minutes 41076 TSH With T4fr Reflex 2. HTN - Hypertension (I10: Essential (primary) hypertension) continue home med Ordered: Basic Metabolic Panel CBC w/ Auto Diff Initial Hospital Care/Day High 75 Minutes 21985 TSH With T4fr Reflex 3. Hyperlipidemia (E78.2: Mixed hyperlipidemia) statin Ordered: Basic Metabolic Panel CBC w/ Auto Diff Initial Hospital Care/Day High 75 Minutes 86053 TSH With T4fr Reflex Orders: Cardiac Monitoring Change Attending Extracted from:Title:Procedure Note Heart & VascularAuthor:Jonathon Espinoza MD Date:01/21/24 Ordered: Basic Metabolic Panel CBC w/ Indices ECG 12 Lead Adult eGFR Extracted from:Title:Procedure Note Heart & VascularAuthor:Jonathon Espinoza MD Date:01/21/24 Ordered: fentanyl, 50 mcg = 1 mL, Injection, IV Push, q2min PRN Other (see comment) for 4 dose(s), Stop dateLimited # of times, Routine, Start date 01/21/24 6:30:00 EDT, 01/21/24 6:30:00 EDT heparin, 5,000 unit(s) = 5 mL, Injection, IV Push, q2min PRN Other (see comment) for 4 dose(s), Stop date Limited # of times, Routine, Start date 01/21/24 6:30:00 EDT, 01/21/24 6:30:00 EDT heparin, 1,000 unit(s) = 500 mL, Soln-IV, Misc, Once PRN Other (see comment), Routine, Start date 01/21/24 6:30:00 EDT, 01/21/24 6:30:00 EDT heparin, 1,000 unit(s) = 500 mL, Soln-IV, Misc, Once PRN Other (see comment), Routine, Start date 01/21/24 6:30:00 EDT, 01/21/24 6:30:00 EDT heparin, 1,000 unit(s) = 500 mL, Soln-IV, Misc, Once PRN Other (see comment), Routine, Start date 01/21/24 6:30:00 EDT, 01/21/24 6:30:00 EDT iopamidol, = 50 mL, Injection, IV Push, q5min PRN Other (see comment) for 4 dose(s), Stop date Limited # of times, Routine, Start date 01/21/24 6:30:00 EDT iopamidol, = 200 mL, Injection, IV Push, q5min PRN Other (see comment) for 4 dose(s), Stop date Limited # of times, Routine, Start date 01/21/24 6:30:00 EDT, 01/21/24 6:30:00 EDT lidocaine, 100 mg, 10 mL, Injection, SubCutaneous, q5min PRN Other (see comment) for 3 dose(s), Stop date Limited # of times, Routine, Start 01/21/24 6:30:00 EDT midazolam, 1 mg = 1 mL, Injection, IV Push, q2min PRN Other (see comment) for 4 dose(s), Stop date Limited # of times, Routine, Start date 01/21/24 6:30:00 EDT, 01/21/24 6:30:00 EDT niCARdipine 20 mg + Sodium Chloride 0.9% intravenous solution 200 mL, 200 mL, IV, titrate per protocol, Routine, Start date 01/21/24 6:30:00 EDT, Total volume (mL): 200, 65.7 kg, Use as directed for radial cocktail, 1.69, m2 nitroglycerin 50 mg [5 mcg/min] + Dextrose 5% in Water intravenous solution 250 mL, 250 mL, IV, 1.5mL/hr, Routine, Start date 01/21/24 6:30:00 EDT, 166.7 hour(s), Total volume (mL): 250, 65.7 kg, 1.69, m2 Sodium Chloride 0.9% intravenous solution 1,000 mL, 1,000 mL, IV, 75 mL/hr, Routine, Start date 01/21/24 6:30:00 EDT, 13.3 hour(s), Total volume (mL): 1,000, 65.7 kg, 1.69, m2 verapamil, 2.5 mg = 1 mL, Soln-IV, IV Push, q2min PRN Other (see comment), Routine, Start date 01/21/24 6:30:00 EDT, as directed for radial cocktail Basic Metabolic Panel CBC w/ Indices Communication Order Communication Order Communication Order Communication Order Communication Order Communication Order Communication Order Communication Order Communication Order CV Coronary IVUS FFR Initial CV Coronary IVUS Initial ECG 12 Lead Adult NPO Diet Oxygen Protocol Patient Education Routine Capillary Glucose POC Saline Lock Insert Future Appointments Appointment Date:02/04/2024 01:00:00 PM Scheduled Provider:Deonte ROSARIO MD Location:[facility] Appointment Type: Hospital Follow Up w/TCM Appointment Date:02/05/2024 02:30:00 PM Scheduled Provider:Alexx Nicole [facility]-C [facility] Follow Up (FT) Appointment Date:03/29/2024 01:40:00 PM Scheduled Provider:Deonte ROSARIO MD [facility] Type: Open Appointment Date:08/03/2024 01:00:00 PM Scheduled Provider: Location:[facility] Appointment Type: Medicare Wellness Subsequent Future Scheduled Tests Laboratory* Sedimentation Rate Automated 06/25/23 * HgbA1c 09/23/23 * HgbA1c 03/04/23 * CBC w/ Auto Diff 09/23/23 * CBC w/ Auto Diff 03/04/23 * CBC w/ Auto Diff 04/15/23 * CBC w/ Auto Diff 02/08/23 * Comprehensive Metabolic Panel 09/23/23 * Comprehensive Metabolic Panel 03/04/23 * Comprehensive Metabolic Panel 02/08/23 * C-Reactive Protein 06/25/23 * Ferritin 03/04/23 * Ferritin 02/08/23 * Folate Level 03/04/23 * Folate Level 02/08/23 * GGT 04/15/23 * Hepatic Function Panel 04/15/23 * Iron Level 03/04/23 * Iron Level 02/08/23 * Iron Percent Saturation 02/08/23 * Lipid Panel 09/23/23 * Lipid Panel 03/04/23 * Reticulocyte Count 03/04/23 * Reticulocyte Count 02/08/23 * Vitamin B12 Level 03/04/23 * Vitamin B12 Level 02/08/23 Radiology* US Liver 04/15/23 [facility] 09-12-2024 NoteInterdisciplinary Note - PT PT Evaluation completed with an [facility] score of 22/24. Pt was able to perform bed mobility with Mod I and transfers with SBA. Pt was able to ambulate with no AD. Pt would be functionally safe to return home (A.L). No further PT services neededAdena [facility]09-12-2024 NoteProgress Note-Physician Assessment/Plan Goal: 1. evaluation of cardiac status due to symptomatic conversational dyspnea. 2. chest X ray 3. 1 time dose of lasix, if possible monitor urine output 4. Desat oxygen study 1. History of percutaneous coronary intervention (Z98.61: Coronary angioplasty status) Coronary artery disease s/p stent placement successful stent placement on 01/20. mid and proximal LAD stent placement continue ASA and Brilinta appreciate cardiology recommendation lifestyle and risk modifications Ordered: Basic Metabolic Panel CBC w/ Auto Diff eGFR Initial Hospital Care/Day High 75 Minutes 15694 Initial Hospital Care/Day Moderate 55 Minutes 16458 Sbsq Hospital Care/Day High 50 Minutes 05229 TSH With T4fr Reflex 2. HTN - Hypertension (I10: Essential (primary) hypertension) continue current medications on Imdur and coreg. this doesn't seem to provide adequate control possible addition of another antihypertensive agent. However, will monitor her BP in the next 24 hours to see if the two agents noted above will controlher BP adequately Ordered: Basic Metabolic Panel CBC w/ Auto Diff eGFR Initial Hospital Care/Day High 75 Minutes 89765 Initial Hospital Care/Day Moderate 55 Minutes 68025 Sbsq Hospital Care/Day High 50 Minutes 85618 TSH With T4fr Reflex 3. Hyperlipidemia (E78.2: Mixed hyperlipidemia) continue Lipitor Ordered: Basic Metabolic Panel CBC w/ Auto Diff eGFR Initial Hospital Care/Day High 75 Minutes 79701 Initial Hospital Care/Day Moderate 55 Minutes 62067 Sbsq Hospital Care/Day High 50 Minutes 80478 TSH With T4fr Reflex 4. Stage 3 chronic kidney disease (N18.3: Chronic kidney disease, stage 3 (moderate)) overall this is stable will continue to monitor will encourage adequate oral intake no additional need for IV fluid unless renal function begins to worsen Ordered: Sbsq Hospital Care/Day High 50 Minutes 76707 5. CAD (coronary artery disease) (I25.10: Atherosclerotic heart disease of [place] coronary artery without angina pectoris) management as noted above Ordered: Sbsq Hospital Care/Day High 50 Minutes 10213 Acute URI (J06.9: Acute upper respiratory infection, unspecified) Ordered: albuterol, 2.5 mg, 3 mL, Soln-Inh, Inhalation, BID, Routine, Start date 01/21/24 20:00:00 EDT Anemia (D64.9: Anemia, unspecified) Ordered: ferrous sulfate, 325 mg = 1 tab(s), Tab, Oral, Daily, Routine, Start date 01/22/24 9:00:00 EDT, 01/21/24 16:41:00 EDT Asthma exacerbation (J45.901: Unspecified asthma with (acute) exacerbation) Ordered: albuterol, 2.5 mg, 3 mL, Soln-Inh, Inhalation, BID, Routine, Start date 01/21/24 20:00:00 EDT Orders: amlodipine, 5 mg = 1 tab(s), Tab, Oral, Daily, Routine, Start date 01/22/24 9:00:00 EDT, 01/21/24 16:40:00 EDT aspirin, 81 mg = 1 tab(s), Tab-EC, Oral, Daily, Routine, Start date 01/22/24 9:00:00 EDT, 01/21/24 16:40:00 EDT atorvastatin, 80 mg = 2 tab(s), Tab, Oral, Bedtime, Routine, Start date 01/21/24 21:00:00 EDT, 01/21/24 16:41:00 EDT carvedilol, 25 mg = 1 tab(s), Tab, Oral, BID, Routine, Start date 01/21/24 21:00:00 EDT, 01/21/24 16:41:00 EDT docusate, 100 mg = 1 cap(s), Cap, Oral, BID PRN Constipation, Routine, Start date 01/21/24 16:41:00EDT, 01/21/24 16:41:00 EDT furosemide, 40 mg = 4 mL, Injection, IV Push, Once, Stop date 01/22/24 8:00:00 EDT, Routine, Start date 01/22/24 8:00:00 EDT, 01/22/24 7:59:00 EDT isosorbide mononitrate, 15 mg = 0.5 tab(s), Tab-ER, Oral, BID, Routine, Start date 01/21/24 21:00:00 EDT, 01/21/24 16:41:00 EDT ocular lubricant, 2 drop(s), Soln-Opth, OPTH, QID, Routine, Start date 01/21/24 21:00:00 EDT ondansetron, 4 mg = 1 tab(s), Tab-Dis, Oral, q8hr PRN Nausea, Routine, Start date 01/21/24 16:57:00EDT pantoprazole, 40 mg = 1 tab(s), Tab-DR, Oral, Daily, Routine, Start date 01/22/24 9:00:00 EDT polyethylene glycol 3350, 17 gm = 1 EA, Powder-Recon, Oral, Daily, Routine, Start date 01/22/24 9:00:00 EDT, 01/21/24 16:42:00 EDT ticagrelor, 90 mg = 1 tab(s), Tab, Oral, BID, Routine, Start date 01/21/24 21:00:00 EDT, 01/21/24 16:42:00 EDT Add on Test Add on Test Basic Metabolic Panel Cardiac Monitoring CBC w/ Auto Diff Change Attending Occupational Therapy Evaluate Patient, Develop a Plan of Care and Implement Plan Oxygen Desaturation Study Physical Therapy Evaluate Patient, Develop a Plan of Care and Implement Plan XR Chest Single View Subjective Mrs. Armenta reports mild dyspnea this morning. she noted that this comes and goes. she stated that she hoped that this will go away after stent placement. She denied fever and chills. No chest pain. No diarrhea. she is aware of plans to get chest X ray and give her 1 time dose of lasix to see if this will improve her breathing. Objective Vitals & Measurements T: 36.7 ?C(Axillary) TMIN: 36.4 ?C(Axillary) TMAX: 36.7 ?C(Axillary) HR: 76(Monitored) RR: 20 BP: 168/71 SpO2: 96% WT: 65.6 kg Intake & Output This vi (more content not included)...[facility] CenterComment on above:Result Comment: Electronically Signed By: Vivek HINOJOSA, Jose G Armstrong\Date and Time Signed: 01/22/24 08:33 [id number] NoteHistory and Physical Basic Information Admit Date/Time:01/21/2024 15:12 Chief Complaint chest pain History of Present Illness Mrs. Alatorre presented to the hospital for elective cardiac cath. This was successfully completed and patient is being admitted for additional med management and observation overnight. Review of Systems Constitutional: no fever, no chills, no sweats, no weakness Skin: no Jaundice, no rash, no lesions, nopetechiae ENMT: no ear pain, no sore throat, no congestion, no hoarseness Respiratory: no shortness of breath, no cough, no orthopnea, no wheezing Cardiovascular: no chest pain, no palpitations, no edema Gastrointestinal: no nausea, no vomiting, no diarrhea, no GI bleeding Genitourinary: no dysuria, no hematuria, no discharge, no pain Musculoskeletal: no back pain, no trauma Neurologic: no headache, no dizziness, no numbness, no weakness Psychiatric: no sleeping problems, no irritability, no mood swings/depression. Heme/Lymph: no bleeding tendency, no bruising tendency, no petechiae, no swollen nodes Allergy/Immunologic: no seasonal allergies, no food allergies, no recurrent infections, no impairedimmunity Additional ROS info: Except as noted in the above Review of Systems and in the History of Present Illness all other systems have been reviewed and are negative or noncontributory. Scoring Vasquez Fall Risk Score: 50 High (01/21/24) Physical Exam Vitals & Measurements HR: 64(Peripheral) RR: 18 BP: 122/68 SpO2: 99% HT: 157 cm HT: 157 cm WT: 65 kg WT: 65 kg General: alert, no acute distress Skin: warm, dry Head: no trauma, normocephalic Neck: Trachea midline, no adenopathy, no tenderness Eye: normal conjunctiva, sclera clear ENMT: TM's clear, oral mucosa moist, no pharyngeal erythema or exudate Cardiovascular: regular rate and rhythm, normal peripheral perfusion Respiratory: Lungs CTA, respirations non labored Chest wall: no deformity. Gastrointestinal: soft, non distended, no tenderness, no guarding. Back: No tenderness, Normal ROM, Normal alignment. Extremities: no deformity, no trauma Neurological: oriented x 4, LOC appropriate for age, CN II-XII intact, motor strength equal & normal bilaterally, sensation equal & normal bilaterally, speech normal Psychiatric: cooperative, affect appropriate for age, normal judgement, normal psychiatric thoughts. Lab Results WBC: 8.6 E9/L (01/21/24 08:38:00) RBC: 3.9 E12/L Low (01/21/24 08:38:00) HGB: 11.3 gm/dL Low (01/21/24 08:38:00) Hct: 33.7 % Low (01/21/24 08:38:00) MCV: 86.5 fL (01/21/24 08:38:00) MCH: 29 pg (01/21/24 08:38:00) MCHC: 33.5 gm/dL (01/21/24 08:38:00) RDW: 15 % High (01/21/24 08:38:00) Platelet: 176 E9/L (01/21/24 08:38:00) MPV: 7.8 fL (01/21/24 08:38:00) RBC Morph: NORMAL (01/21/24 08:38:00) Glucose Lvl: 118 mg/dL (01/21/24 08:38:00) BUN: 37 mg/dL High (01/21/24 08:38:00) Creatinine: 1.5 mg/dL High (01/21/24 08:38:00) eGFR: 33 mL/min/1.73 m2 Low (01/21/24 08:38:00) BUN/Creat Ratio: 25 High (01/21/24 08:38:00) Sodium Lvl: 139 mmol/L (01/21/24 08:38:00) Potassium Lvl: 4.7 mmol/L (01/21/24 08:38:00) Chloride: 107 mmol/L (01/21/24 08:38:00) CO2: 24 mmol/L (01/21/24 08:38:00) AGAP: 13 mEq/L (01/21/24 08:38:00) Calcium Lvl: 9.1 mg/dL (01/21/24 08:38:00) Assessment/Plan 1. History of percutaneous coronary intervention (Z98.61: Coronary angioplasty status) resume antiplalet consult cardiology continue statin, asa and plavix Ordered: Basic Metabolic Panel CBC w/ Auto Diff Initial Hospital Care/Day High 75 Minutes 53244 TSH With T4fr Reflex 2. HTN - Hypertension (I10: Essential (primary) hypertension) continue home med Ordered: Basic Metabolic Panel CBC w/ Auto Diff Initial Hospital Care/Day High 75 Minutes 53738 TSH With T4fr Reflex 3. Hyperlipidemia (E78.2: Mixed hyperlipidemia) statin Ordered: Basic Metabolic Panel CBC w/ Auto Diff Initial Hospital Care/Day High 75 Minutes 15699 TSH With T4fr Reflex Orders: Cardiac Monitoring Change Attending Problem List/Past Medical History Ongoing Anemia Anxiety disorder Asthma Asthma exacerbation Benign hypertension with chronic kidney disease, stage III BMI 26.0-26.9,adult CAD (coronary artery disease) Carotid artery stenosis Change in bowel habits Chronic kidney disease (CKD), stage III (moderate) COPD type B Dysphagia Edema Elevated alkaline phosphatase level Eye pain Female stress incontinence History of colon polyps History of CVA in adulthood HTN - Hypertension Hyperglycemia Hyperlipidemia Insomnia Intertrigo Knee pain, right Large hiatal hernia Leg weakness Leukocytosis Lumbar radiculopathy Neck pain Over weight Seborrheic keratoses Shoulder pain Vasomotor rhinitis Historical Acid reflux Appendectomy blood clots BMI 25.0-25.9,adult Cardiac arrest COPD Glaucoma H/O: TIA HEMAT[place] - myocardial infarction Stage 3 chronic (more content not included)...[facility]:Result Comment: Electronically Signed By: Vivek HINOJOSA, Jose G Kc\.br\Date and Time Signed: 01/21/24 15:39 [id number] NoteOperative Report Procedure Left heart catheterization procedure report DATE OF PROCEDURE: 01/21/2024 RN MIDWIFE Jonathon Espinoza MD [facility] INDICATION: Unstable angina BRIEF HISTORY: The patient is an 88-year-old female with past medical history of coronary artery disease, who presented with unstable angina PROCEDURE(S) PERFORMED: Left Heart Catheterization Selective Coronary Angiography PCI to the left main, proximal LAD, mid LAD with 3 RAMÓN IVUS left main IVUS LAD Moderate Sedation PRE-PROCEDURAL INFORMED CONSENT: The procedure and conscious sedation were discussed in detail withthe patient/next of kin/durable power of including the indications, expected outcomes, potential treatment options based upon the results, alternative treatment options and benefits, risks and possible complications associated with the procedure. The patient/next of kin/durable power of expressed an understanding of the information provided and willingness to proceed. Signed, informed consent forthe procedure was obtained for all of the above. DESCRIPTION OF THE PROCEDURE: In the postabsorptive state, the patient was brought to the Adult Cardiac Digital Computer Systems Analyst and placed on the table. The planned puncture sites/areas were prepped and draped in usual sterile fashion and a safety time-out was performed. Moderate Sedation was given by the Cardiac Digital Computer Systems Analyst RN. RIGHT RADIAL ARTERY ACCESS: The puncture site was infiltrated with 1% lidocaine. The modified Seldinger technique was performed to access the right radial artery using a 21G needle radial access kit.A wire was threaded into the radial artery followed by upsizing to a 5/6F slender 10cm sheath. The sheath was then flushed with heparinized saline and IV UFH was administered via peripheral IV by theCath medical laboratory technician after the catheter crossed into the ascending aorta. Selective left and right coronary artery angiography : Under fluoroscopic guidance, a 5 F JR4 diagnostic catheter was then advanced over the 0.035 260cm J-tipped guidewire to the level of the aorticvalve. 5 F JR4 diagnostic catheter was advanced over the guidewire across the Aortic valve and intothe left ventricle. Hemodynamic measurements were then obtained. Left ventriculography was performed. The JR4 catheter was then pulled back into the ascending aorta for assessment of LV-Ao gradient. The JR4 diagnostic catheter was then be used to selectively engage the RCA ostium and angiographic images under multiple projections were obtained. Then the JR4 catheter was exchanged for a 5 F JL3.5 d iagnostic catheter over guidewire. Under fluoroscopic guidance, the JL3.5 diagnostic catheter was then be used to selectively engage the LCA ostium and angiographic images under multiple projections were obtained. This was followed by attempted IFR assessment of the proximal LAD, complicated by left main artery dissection and rescue PCI of the left main artery, proximal LAD, mid LAD, as described below. The procedure was concluded by removal of all the catheters, wires and sheaths. Accesses were managed as outlined below. No immediate complications COMPLICATIONS: Left main artery dissection ESTIMATED BLOOD LOSS: <50cc CONTRAST ADMINISTERED: Please see Adult Cardiac Digital Computer Systems Analyst Log for further details FINDINGS: SELECTIVE CORONARY ANGIOGRAPHY: Right dominant System Left Main: Large vessel with evidence of borderline ostial/proximal disease with some calcification LAD: 50-60% discrete lesion in the proximal LAD, mid LAD has evidence of a long lesion in the rangeof approximately 30%. LAD is wraparound apex. D1: Small LCx: Mild diffuse disease OM1: Large vessel, originating from the very proximal circumflex artery, bifurcating, mild diffuse disease OM2: Mild diffuse disease OM 3: Mild diffuse disease RCA: Large, anatomically superdominant vessel, originating from the right coronary cusp. Mild disease is present in the proximal and mid RCA. Mid distal RCA has evidence of wide open stent rPDA: Free of significant disease rPLB: Borderline diffuse disease LEFT HEART CATHETERIZATION: LVEDP: 13 mmHg No significant gradient across aortic valve LV EJECTION FRACTION and WALL MOTION: Estimated EF in the range of 70%. No significant local wall motion abnormalities appreciated. Following angiographic assessment, I had concerns about significance of the lesion of the proximal LAD therefore a decision was made to perform functional assessment. Patient was heparinized. Target ACT was achieved. We used a 6 [place] EBU 3.5 guiding catheter. Leftcoronary artery was engaged. The guiding catheter was sitting suboptimal, therefore we exchanged itto a 6 [place] JL 3.5. Pressure wire was advanced to the left main artery and after performance of advanced normalization, advanced to the LAD with no technical difficulties. Following the injection to the left main, we noted interruption of flow in the distal left main artery, likely consistent with dissection. Intravascu (more content not included)...[facility] CenterComment on above:Result Comment: Electronically Signed By: Olga HINOJOSA, Jonathon Hernandez\.michael\Date and Time Signed: 01/21/24 11:50 [id number] NoteProgress Note-Physician Procedure Airway Assessment: Class II: Visualization of the soft palate, fauces, uvula Airway Abnormalities: none ASA Classification: ASA 3: A patient with severe systemic disease Risks/Benefits of IV Sedation: Have been explained IV Sedation Plan: Patient agrees to IV sedation plan_ Assessment/Plan Ordered: fentanyl, 50 mcg = 1 mL, Injection, IV Push, q2min PRN Other (see comment) for 4 dose(s), Stop dateLimited # of times, Routine, Start date 01/21/24 6:30:00 EDT, 01/21/24 6:30:00 EDT heparin, 5,000 unit(s) = 5 mL, Injection, IV Push, q2min PRN Other (see comment) for 4 dose(s), Stop date Limited # of times, Routine, Start date 01/21/24 6:30:00 EDT, 01/21/24 6:30:00 EDT heparin, 1,000 unit(s) = 500 mL, Soln-IV, Misc, Once PRN Other (see comment), Routine, Start date 01/21/24 6:30:00 EDT, 01/21/24 6:30:00 EDT heparin, 1,000 unit(s) = 500 mL, Soln-IV, Misc, Once PRN Other (see comment), Routine, Start date 01/21/24 6:30:00 EDT, 01/21/24 6:30:00 EDT heparin, 1,000 unit(s) = 500 mL, Soln-IV, Misc, Once PRN Other (see comment), Routine, Start date 01/21/24 6:30:00 EDT, 01/21/24 6:30:00 EDT iopamidol, = 50 mL, Injection, IV Push, q5min PRN Other (see comment) for 4 dose(s), Stop date Limited # of times, Routine, Start date 01/21/24 6:30:00 EDT iopamidol, = 200 mL, Injection, IV Push, q5min PRN Other (see comment) for 4 dose(s), Stop date Limited # of times, Routine, Start date 01/21/24 6:30:00 EDT, 01/21/24 6:30:00 EDT lidocaine, 100 mg, 10 mL, Injection, SubCutaneous, q5min PRN Other (see comment) for 3 dose(s), Stop date Limited # of times, Routine, Start date 01/21/24 6:30:00 EDT midazolam, 1 mg = 1 mL, Injection, IV Push, q2min PRN Other (see comment) for 4 dose(s), Stop date Limited # of times, Routine, Start date 01/21/24 6:30:00 EDT, 01/21/24 6:30:00 EDT niCARdipine 20 mg + Sodium Chloride 0.9% intravenous solution 200 mL, 200 mL, IV, titrate per protocol, Routine, Start date 01/21/24 6:30:00 EDT, Total volume (mL): 200, 65.7 kg, Use as directed for radial cocktail, 1.69, m2 nitroglycerin 50 mg [5 mcg/min] + Dextrose 5% in Water intravenous solution 250 mL, 250 mL, IV, 1.5mL/hr, Routine, Start date 01/21/24 6:30:00 EDT, 166.7 hour(s), Total volume (mL): 250, 65.7 kg, 1.69, m2 Sodium Chloride 0.9% intravenous solution 1,000 mL, 1,000 mL, IV, 75 mL/hr, Routine, Start date 01/21/24 6:30:00 EDT, 13.3 hour(s), Total volume (mL): 1,000, 65.7 kg, 1.69, m2 verapamil, 2.5 mg = 1 mL, Soln-IV, IV Push, q2min PRN Other (see comment), Routine, Start date 01/21/24 6:30:00 EDT, as directed for radial cocktail Basic Metabolic Panel CBC w/ Indices Communication Order Communication Order Communication Order Communication Order Communication Order Communication Order Communication Order Communication Order Communication Order CV Coronary IVUS FFR Initial CV Coronary IVUS Initial ECG 12 Lead Adult NPO Diet Oxygen Protocol Patient Education Routine Capillary Glucose POC Saline Lock InsertAtrium Health Union Wester [facility] CenterComment on above:Result Comment: Electronically Signed By: Olga HINOJOSA, Jonathon Hernandez\.michael\Date and Time Signed: 01/21/24 08:37 [id number] Hospital Discharge instructions Patient Education 12/31/2023 14:30:53 DASH Eating Plan DASH Eating Plan DASH stands for Dietary Approaches to Stop Hypertension. The DASH eating plan is a healthy eating plan that has been shown to: Reduce high blood pressure (hypertension). Reduce your risk for type 2 diabetes, heart disease, and stroke. Help with weight loss. What are tips for following this plan? Reading food labels Check food labels for the amount of salt (sodium) per serving. Choose foods with less than 5 percent of the Daily Value of sodium. Generally, foods with less than 300 milligrams (mg) of sodium per serving fit into this eating plan. To find whole grains, look for the word whole as the first word in the ingredient list. Shopping Buy products labeled as low-sodium or no salt added. Buy fresh foods. Avoid canned foods and pre-made or frozen meals. Cooking Avoid adding salt when cooking. Use salt-free seasonings or herbs instead of table salt or sea salt. Check with your health care provider or pharmacist before using salt substitutes. Do not galeano foods. Cook foods using healthy methods such as baking, boiling, grilling, roasting, andbroiling instead. Cook with heart-healthy oils, such as olive, canola, avocado, soybean, or sunflower oil. Meal planning Eat a balanced diet that includes: ?4 or more servings of fruits and 4 or more servings of vegetables each day. Try to fill one-half of your plate with fruits and vegetables. ?6 8 servings of whole grains each day. ?Less than 6 oz (170 g) of lean meat, poultry, or fish each day. A 3-oz (85-g) serving of meat is about the same size as a deck of cards. One egg equals 1 oz (28 g). ?2 3 servings of low-fat dairy each day. One serving is 1 cup (237 mL). ?1 serving of nuts, seeds, or beans 5 times each week. ?2 3 servings of heart-healthy fats. Healthy fats called omega-3 fatty acids are found in foods such as walnuts, flaxseeds, fortified milks, and eggs. These fats are also found in cold-water fish, such as sardines, salmon, and mackerel. Limit how much you eat of: ?Canned or prepackaged foods. ?Food that is high in trans fat, such as some fried foods. ?Food that is high in saturated fat, such as fatty meat. ?Desserts and other sweets, sugary drinks, and other foods with added sugar. ?Full-fat dairy products. Do not salt foods before eating. Do not eat more than 4 egg yolks a week. Try to eat at least 2 vegetarian meals a week. Eat more home-cooked food and less restaurant, buffet, and fast food. Lifestyle When eating at a restaurant, ask that your food be prepared with less salt or no salt, if possible. If you drink alcohol: ?Limit how much [...] oz glass of hard liquor (44 mL). General information Avoid eating more than 2,300 mg of salt a day. If you have hypertension, you may need to reduce your sodium intake to 1,500 mg a day. Work with your health care provider to maintain a healthy body weight or to lose weight. Ask what an ideal weight is for you. Get at least 30 minutes of exercise that causes your heart to beat faster (aerobic exercise) most days of the week. Activities may include walking, swimming, or biking. Work with your health care provider or dietitian to adjust your eating plan to your individual calorie needs. What foods should I eat? Fruits All fresh, dried, or frozen fruit. Canned fruit in natural juice (without added sugar). Vegetables Fresh or frozen vegetables (raw, steamed, roasted, or grilled). Low-sodium or reduced-sodium tomatoand vegetable juice. Low-sodium or reduced-sodium tomato sauce and tomato paste. Low-sodium or reduced-sodium canned vegetables. Grains Whole-grain or whole-wheat bread. Whole-grain or whole-wheat pasta. Brown rice. Oatmeal. Quinoa. Bulgur. Whole-grain and low-sodium cereals. Marily bread. Low- fat, low-sodium crackers. Whole-wheat flour tortillas. Meats and other proteins Skinless chicken or turkey. Ground chicken or turkey. Pork with fat trimmed off. Fish and seafood. Egg whites. Dried beans, peas, or lentils. Unsalted nuts, nut butters, and seeds. Unsalted canned beans. Lean cuts of beef with fat trimmed off. Low-sodium, lean precooked or cured meat, such as sausages or meat loaves. Dairy Low-fat (1%) or fat-free (skim) milk. Reduced-fat, low-fat, or fat-free cheeses. Nonfat, low-sodiumricotta or cottage cheese. Low-fat or nonfat yogurt. Low-fat, low-sodium cheese. Fats and oils Soft margarine without trans fats. Vegetable oil. Reduced-fat, low-fat, or light mayonnaise and salad dressings (reduced-sodium). Canola, safflower, olive, avocado, soybean, and sunflower oils. Avocado. Seasonings and condiments Herbs. Spices. Seasoning mixes without salt. Other foods Unsalted popcorn and pretzels. Fat-free sweets. The items listed above may not be a complete list of foods and beverages you can eat. Contact a dietitian for more information. What foods should I avoid? Fruits Canned fruit in a light or heavy syrup. Fried fruit. Fruit in cream or butter sauce. Vegetables Creamed or fried vegetables. Vegetables in a cheese sauce. Regular canned vegetables (not low-sodium or reduced-sodium). Regular canned tomato sauce and paste (not low-sodium or reduced-sodium). Regular tomato and vegetable juice (not low-sodium or reduced-sodium). Pickles. Olives. Grains Baked goods made with fat, such as croissants, muffins, or some breads. Dry pasta or rice meal packs. Meats and other proteins Fatty cuts of meat. Ribs. Fried meat. Canas. Bologna, salami, and other precooked or cured meats, such as sausages or meat loaves. Fat from the back of a pig (fatback). Bratwurst. Salted nuts and seeds. Canned beans with added salt. Canned or smoked fish. Whole eggs or egg yolks. Chicken or turkey with skin. Dairy Whole or 2% milk, cream, and [id number]. Whole or full-fat cream cheese. Whole-fat or sweetened yogurt. Full-fat cheese. Nondairy creamers. Whipped toppings. Processed cheese and cheese spreads. Fats and oils Butter. Stick margarine. Lard. Shortening. Ghee. Canas fat. Tropical oils, such as coconut, palm kernel, or palm oil. Seasonings and condiments Onion salt, garlic salt, seasoned salt, table salt, and sea salt. Worcestershire sauce. Tartar sauce. Barbecue sauce. Teriyaki sauce. Soy sauce, including reduced-sodium. Steak sauce. Canned and packaged gravies. Fish sauce. Oyster sauce. Cocktail sauce. Store-bought horseradish. Ketchup. Mustard. Meat flavorings and tenderizers. Bouillon cubes. Hot sauces. Pre-made or packaged marinades. Pre-made or packaged taco seasonings. Relishes. Regular salad dressings. Other foods Salted popcorn and pretzels. The items listed above may not be a complete list of foods and beverages you should avoid. Contact a dietitian for more information. Where to find more information National Heart, Lung, and Blood [place]: www.nhlbi.nih.gov [place] [employer]: www.heart.org Academy of Nutrition and Dietetics: www.eatright.org National Kidney Foundation: www.kidney.org Summary The DASH eating plan is a healthy eating plan that has been shown to reduce high blood pressure (hypertension). It may also reduce your risk for type 2 diabetes, heart disease, and stroke. When on the DASH eating plan, aim to eat more fresh fruits and vegetables, whole grains, lean proteins, low-fat dairy, and heart-healthy fats. With the DASH eating plan, you should limit salt (sodium) intake to 2,300 mg a day. If you have hypertension, you may need to reduce your sodium intake to 1,500 mg a day. Work with your health care provider or dietitian to adjust your eating plan to your individual calorie needs. This information is not intended to replace advice given to you by your health care provider. Make sure you discuss any questions you have with your health care provider. Document Revised: 03/31/2020 Document Reviewed: 03/31/2020 [employer] Patient Education 2022 [employer]. Follow Up Care 09/23/2023 15:48:35 With:PAULO HINOJOSA, Deonte Turpin, [facility] Address: [facility] [address], [place] [address]- When:Within 3 Month(s) [facility] 08-21-2024 NotePatient Education Nutrition DASH Eating Plan DASH stands for Dietary Approaches to Stop Hypertension. The DASH eating plan is a healthy eating plan that has been shown to: ? Reduce high blood pressure (hypertension). ? Reduce your risk for type 2 diabetes, heart disease, and stroke. ? Help with weight loss. What are tips for following this plan? Reading food labels ? Check food labels for the amount of salt (sodium) per serving. Choose foods with less than 5 percent of the Daily Value of sodium. Generally, foods with less than 300 milligrams (mg) of sodium per serving fit into this eating plan. ? To find whole grains, look for the word whole as the first word in the ingredient list. Shopping ? Buy products labeled as low-sodium or no salt added. ? Buy fresh foods. Avoid canned foods and pre-made or frozen meals. Cooking ? Avoid adding salt when cooking. Use salt-free seasonings or herbs instead of table salt or sea salt. Check with your health care provider or pharmacist before using salt substitutes. ? Do not galeano foods. Cook foods using healthy methods such as baking, boiling, grilling, roasting, and broiling instead. ? Cook with heart-healthy oils, such as olive, canola, avocado, soybean, or sunflower oil. Meal planning ? Eat a balanced diet that includes: ? 4 or more servings of fruits and 4 or more servings of vegetables each day. Try to fill one-half of your plate with fruits and vegetables. ? 6?8 servings of whole grains each day. ? Less than 6 oz (170 g) of lean meat, poultry, or fish each day. A 3-oz (85-g) serving of meat is about the same size as a deck of cards. One egg equals 1 oz (28 g). ? 2?3 servings of low-fat dairy each day. One serving is 1 cup (237 mL). ? 1 serving of nuts, seeds, or beans 5 times each week. ? 2?3 servings of heart-healthy fats. Healthy fats called omega-3 fatty acids are found in foods such as walnuts, flaxseeds, fortified milks, and eggs. These fats are also found in cold-water fish, such as sardines, salmon, and mackerel. ? Limit how much you eat of: ? Canned or prepackaged foods. ? Food that is high in trans fat, such as some fried foods. ? Food that is high in saturated fat, such as fatty meat. ? Desserts and other sweets, sugary drinks, and other foods with added sugar. ? Full-fat dairy products. ? Do not salt foods before eating. ? Do not eat more than 4 egg yolks a week. ? Try to eat at least 2 vegetarian meals a week. ? Eat more home-cooked food and less restaurant, buffet, and fast food. Lifestyle ? When eating at a restaurant, ask that your food be prepared with less salt or no salt, if possible. ? If you drink alcohol: ? Limit [...] oz glass of hard liquor (44 mL). General information ? Avoid eating more than 2,300 mg of salt a day. If you have hypertension, you may need to reduce your sodium intake to 1,500 mg a day. ? Work with your health care provider to maintain a healthy body weight or to lose weight. Ask whatan ideal weight is for you. ? Get at least 30 minutes of exercise that causes your heart to beat faster (aerobic exercise) mostdays of the week. Activities may include walking, swimming, or biking. ? Work with your health care provider or dietitian to adjust your eating plan to your individual calorie needs. What foods should I eat? Fruits All fresh, dried, or frozen fruit. Canned fruit in natural juice (without added sugar). Vegetables Fresh or frozen vegetables (raw, steamed, roasted, or grilled). Low-sodium or reduced-sodium tomatoand vegetable juice. Low-sodium or reduced-sodium tomato sauce and tomato paste. Low-sodium or reduced-sodium canned vegetables. Grains Whole-grain or whole-wheat bread. Whole-grain or whole-wheat pasta. Brown rice. Oatmeal. Quinoa. Bulgur. Whole-grain and low-sodium cereals. Marily bread. Low- fat, low-sodium crackers. Whole-wheat flour tortillas. Meats and other proteins Skinless chicken or turkey. Ground chicken or turkey. Pork with fat trimmed off. Fish and seafood. Egg whites. Dried beans, peas, or lentils. Unsalted nuts, nut butters, and seeds. Unsalted canned beans. Lean cuts of beef with fat trimmed off. Low-sodium, lean precooked or cured meat, such as sausages or meat loaves. Dairy Low-fat (1%) or fat-free (skim) milk. Reduced-fat, low-fat, or fat-free cheeses. Nonfat, low-sodiumricotta or cottage cheese. Low-fat or nonfat yogurt. Low-fat, low-sodium cheese. Fats and oils Soft margarine without trans fats. Vegetable oil. Reduced-fat, low-fat, or light mayonnaise and salad dressings (reduced-sodium). Canola, safflower, olive, avocado, soybean, and sunflower oils. Avocado. Seasonings and condiments He (more content not included)...[facility] Discharge instructions Patient Education 09/23/2023 15:44:26 Carotid Artery Disease Carotid Artery Disease Carotid artery disease, also called carotid artery stenosis, is the narrowing or blockage of one orboth carotid arteries. The carotid arteries are the two main blood vessels on either side of the neck. They supply blood to the brain, other parts of the head, and the neck. Carotid artery disease increases your risk for a stroke or a transient ischemic attack (TIA). A TIAis a mini-stroke that causes stroke-like symptoms that [...] stroke or TIA occurs. In some cases, yourhealth care provider may be able to hear [...] to stay physically active. It is recommended thateach week you get at least 150 minutes of moderate-intensity exercise or 75 minutes of exercise that takes a lot of effort. Do not use any products that contain nicotine or tobacco, such as cigarettes, e- cigarettes, and chewing tobacco. If you need help [...] for stress management tips. General instructions Take tqzd-bvv-ytemfox and prescription medicines only as told by your health care provider. Keep all follow-up visits as told by your health care provider. This is important. Where to find more information [place] [employer]: www.heart.org Get help right away if: You have any symptoms of a stroke. BE FAST is an easy way to remember the main warning signs of astroke: ?B - Balance. Signs are dizziness, sudden trouble walking, or loss of balance. ?E - Eyes. Signs are trouble seeing or a sudden change in vision. ?F - Face. Signs are sudden weakness or numbness of the face, or the face or eyelid drooping on oneside. ?A - Arms. Signs are weakness or [...] is the narrowing or blockage of one orboth carotid arteries. Carotid artery disease increases your risk for a stroke or a transient ischemic attack (TIA). This condition can be treated with lifestyle changes, medicines, surgery, or a combination of thesetreatments. Get help right away if you have any symptoms of stroke. The acronym BEFAST is an easy way to remember the main warning signs of stroke. This information is not intended to replace advice given to you by your health care provider. Make sure you discuss any questions you have with your health care provider. Document Revised: 07/25/2022 Document Reviewed: 11/08/2019 [employer] Patient Education 2022 [employer]. Follow Up Care 06/25/2023 09:01:59 With:PAULO HINOJOSA, Deonte Turpin, MED Address: [facility] [address], [place] [address]- When:Within 3 Month(s) [facility] 04-17-2024 Hospital Discharge instructions Patient Education 08/27/2023 12:31:42 Upper Respiratory Infection, Adult, Ihxz-yn-Qvds Upper Respiratory Infection, Adult An upper respiratory infection (URI) affects the nose, throat, and upper airways that lead to the lungs. The most common type of URI is often called the common cold. URIs usually get better on their own, without medical treatment. What are the causes? A URI is caused by a germ (virus). You may catch these germs by: Breathing in droplets from an infected person's cough or sneeze. Touching something that has the germ on it (is contaminated) and then touching your mouth, nose, oreyes. What increases the risk? You are more likely to get a URI if: You are very young or very old. You have close contact with others, such as at work, school, or a health care facility. You smoke. You have long-term (chronic) heart or lung disease. You have a weakened disease-fighting system (immune system). You have nasal allergies or asthma. You have a lot of stress. You have poor nutrition. What are the signs or symptoms? Runny or stuffy (congested) nose. Cough. Sneezing. Sore throat. Headache. Feeling tired (fatigue). Fever. Not wanting to eat as much as usual. Pain in your forehead, behind your eyes, and over your cheekbones (sinus pain). Muscle aches. Redness or irritation of the eyes. Pressure in the ears or face. How is this treated? URIs usually get better on their own within 7 10 days. Medicines cannot cure URIs, but your doctor may recommend certain medicines to help relieve symptoms, such as: Tkhe-qpo-uwhpygv cold medicines. Medicines to reduce coughing (cough suppressants). Coughing is a type of defense against infection that helps to clear the nose, throat, windpipe, and lungs (respiratory system). Take these medicinesonly as told by your doctor. Medicines to lower your fever. Follow these instructions at home: Activity Rest as needed. If you have a fever, stay home from work or school until your fever is gone, or until your doctor says you may return to work or school. ?You should stay home until you cannot spread the infection anymore (you are not contagious). ?Your doctor may have you wear a face mask so you have less risk of spreading the infection. Relieving symptoms Rinse your mouth often with salt water. To make salt water, dissolve 1 tsp (3 6 g) of salt in 1 cup(237 mL) of warm water. Use a cool-mist humidifier to add moisture to the air. This can help you breathe more easily. Eating and drinking Drink enough fluid to keep your pee (urine) pale yellow. Eat soups and other clear broths. General instructions Take mjyz-lxu-ejrzabt and prescription medicines only as told by your doctor. Do not smoke or use any products that contain nicotine or tobacco. If you need help quitting, ask your doctor. Avoid being where people are smoking (avoid secondhand smoke). Stay up to date on all your shots (immunizations), and get the flu shot every year. Keep all follow-up visits. How to prevent the spread of infection to others Wash your hands with soap and water for at least 20 seconds. If you cannot use soap and water, use hand glass curvature gauger. Avoid touching your mouth, face, eyes, or nose. Cough or sneeze into a tissue or your sleeve or elbow. Do not cough or sneeze into your hand or into the air. Contact a doctor if: You are getting worse, not better. You have any of these: ?A fever or chills. ?Brown or red mucus in your nose. ?Yellow or brown fluid (discharge)coming from your nose. ?Pain in your face, especially when you bend forward. ?Swollen neck glands. ?Pain when you swallow. ?White areas in the back of your throat. Get help right away if: You have shortness of breath that gets worse. You have very bad or constant: ?Headache. ?Ear pain. ?Pain in your forehead, behind your eyes, and over your cheekbones (sinus pain). ?Chest pain. You have long-lasting (chronic) lung disease along with any of these: ?Making high-pitched whistling sounds when you breathe, most often when you breathe out (wheezing). ?Long-lasting cough (more than 14 days). ?Coughing up blood. ?A change in your usual mucus. You have a stiff neck. You have changes in your: ?Vision. ?Hearing. ?Thinking. ?Mood. These symptoms may be an emergency. Get help right away. Call 911. Do not wait to see if the symptoms will go away. Do not drive yourself to the hospital. Summary An upper respiratory infection (URI) is caused by a germ (virus). The most common type of URI is often called the common cold. URIs usually get better within 7 10 days. Take sbrm-gnf-iwfvtgc and prescription medicines only as told by your doctor. This information is not intended to replace advice given to you by your health care provider. Make sure you discuss any questions you have with your health care provider. Document Revised: 11/28/2021 Document Reviewed: 11/28/2021 [employer] Patient Education 2022 [employer]. 08/27/2023 12:31:40 Asthma Attack Prevention, Adult Asthma Attack Prevention, Adult Although you may not be able to change the fact that you have asthma, you can take actions to prevent episodes of asthma (asthma attacks). How can this condition affect me? Asthma attacks (flare ups) can cause trouble breathing, high-pitched whistling sounds when you breathe, most often when you breathe out (wheeze), and coughing. They may keep you from doing activitiesyou like to do. What can increase my risk? Coming into contact with things that cause asthma symptoms (asthma triggers) can put you at risk for an asthma attack. Common asthma triggers include: Things you are allergic to (allergens), such as: ?Dust mite and cockroach droppings. ?Pet dander. ?Mold. ?Pollen from trees and grasses. ?Food allergies. This might be a specific food or added chemicals called sulfites. Irritants, such as: ?Weather changes including very cold, dry, or humid air. ?Smoke. This includes campfire smoke, air pollution, and tobacco smoke. ?Strong odors from aerosol sprays and fumes from perfume, candles, and household sandwich and drink cart operator. Other triggers, such as: ?Certain medicines. This includes NSAIDs, such as ibuprofen and aspirin. ?Viral respiratory infections (colds), including runny nose (rhinitis) or infection in the sinuses (sinusitis). ?Activity, including exercise, laughing, or crying. ?Not using inhaled medicines (corticosteroids) as told. What actions can I take to prevent an asthma attack? Stay healthy. Stay up to date on all immunizations as told by your health care provider, including the yearly flu (influenza) vaccine and pneumonia vaccine. Many asthma attacks can be prevented by carefully following your written asthma action plan. Follow your asthma action plan Work with your health care provider to create a written asthma action plan. This plan should include: A list of your asthma triggers and how to avoid or reduce them. A list of symptoms that you may have during an asthma attack. Information about which medicine to take, when to take the medicine, and how much of the medicine to take. Information to help you understand your peak flow measurements. Daily actions that you can take to prevent (control) your asthma symptoms. Contact information for your health care providers. If you have an asthma attack, act quickly. Follow the emergency steps on your written asthma actionplan. This may prevent you from needing to go to the hospital. Monitor your asthma. To do this: Use your peak flow meter every morning and every evening for 2 3 weeks or as told by your health care provider. ?Record the results in a journal. ?A drop in your peak flow numbers on one or more days may mean that you are starting to have an asthma attack, even if you are not having symptoms. When you have asthma symptoms, write them down in a journal. Write down in your journal how often you need to use your fast-acting rescue inhaler. If you are using your rescue inhaler more often, it may mean that your asthma is not under control. Talk with your health care provider about adjusting your asthma treatment plan to help you prevent future asthma attacks and gain better control of your condition. Lifestyle Avoid or reduce contact with known outdoor allergens by staying indoors, keeping windows closed, and using air conditioning when pollen and mold counts are high. Do not use any products that contain nicotine or tobacco. These products include cigarettes, chewing tobacco, and vaping devices, such as e-cigarettes. If you need help quitting, ask your health careprovider. If you are overweight, consider a weight-loss plan. Find ways to cope with stress and your feelings, such as mindfulness, relaxation, or breathing exercises. Ask your health care provider if a breathing exercise program (pulmonary rehabilitation) may be helpful to control symptoms and improve your quality of life. Medicines Take vfuh-oeo-ahetqaw and prescription medicines only as told by your health care provider. Do not stop taking your medicine and do not take less medicine even if you start to feel better. Let your health care provider know: ?How often you use your rescue inhaler. ?How often you have symptoms when you are taking your regular medicines. ?If you wake up at night because of asthma symptoms. ?If you have more trouble with your breathing when you exercise. Activity Do your normal activities as told by your health care provider. Ask your health care provider what activities are safe for you. Some people have asthma symptoms or more asthma symptoms when they exercise. This is called exercise-induced bronchoconstriction (EIB). If you have this problem, talk with your health care provider about how to manage EIB. Some tips to follow include: ?Use your fast-acting inhaler before exercise. ?Exercise indoors if it is very cold, humid, or the pollen and mold counts are high. ?Warm up and cool down before and after exercise. ?Stop exercising right away if your asthma symptoms start or get worse. Where to find more information [employer] [place]: www.aafa.org Centers for Disease Control and Prevention: www.cdc.gov [place] [employer]: www.lung.org National Heart, Lung, and Blood [place]: www.nhlbi.nih.gov World Health Organization: www.who.int Get help right away if: You have followed your written asthma action plan and your symptoms are not improving. Summary Asthma attacks (flare ups) can cause trouble breathing, high-pitched whistling sounds when you breathe, most often when you breathe out (wheeze), and coughing. Work with your health care provider to create a written asthma action plan. Do not stop taking your medicine and do not take less medicine even if you are feeling better. Do not use any products that contain nicotine or tobacco. These products include cigarettes, chewing tobacco, and vaping devices, such as e-cigarettes. If you need help quitting, ask your health careprovider. This information is not intended to replace advice given to you by your health care provider. Make sure you discuss any questions you have with your health care provider. Document Revised: 10/24/2021 Document Reviewed: 10/24/2021 [employer] Patient Education 2022 [employer]. 08/27/2023 12:31:35 Asthma Action Plan, Adult Asthma Action Plan, Adult An asthma action plan helps you understand how to manage your asthma and what to do when you have an asthma attack. The action plan is a color-coded plan that lists the symptoms that indicate whetheror not your condition is under control and what actions to take. If you have symptoms in the green zone, you are doing well. If you have symptoms in the yellow zone, you are having problems. If you have symptoms in the red [...] the green zone. This means that you: Have no coughing or wheezing, even while you are working or playing. Sleep through the night. Are breathing well. Have a peak flow reading that is above (80% of your personal best or greater). If you are in the green zone, continue to manage your asthma as directed. Take these medicines every day: ?Controller medicine and dosage: ?Controller medicine and dosage: ?Controller medicine and dosage: ?Controller medicine and dosage: Before exercise, use this reliever or rescue medicine: Call your health care provider if you are using a reliever or rescue medicine more than 2 3 times aweek. Yellow zone Symptoms in this zone mean that your condition may be getting worse. You may have symptoms that interfere with exercise, are noticeably worse after exposure to triggers, or are worse at the first sign of a cold (upper respiratory infection). These may include: Waking from sleep. Coughing, especially at night or first thing in the morning. Mild wheezing. Chest tightness. A peak flow reading that is to (50 79% of your personal best). If you have any of these symptoms: Add the following medicine to the ones that you use daily: ?Reliever or rescue medicine and dosage: ?Additional medicine and dosage: Call your health care provider if: You remain in the yellow zone for hours. You are using a reliever or rescue medicine more than 2 3 times a week. Red zone Symptoms in this zone mean that you should get medical help right away. You will likely feel distressed and have symptoms at rest that restrict your activity. You are in the red zone if: You are breathing hard and quickly. Your nose opens wide, your ribs show, and your neck muscles become visible when you breathe in. Your lips, fingers, or toes are a bluish color. You have trouble speaking in full sentences. Your peak flow reading is less than (less than 50% of your personal best). Your symptoms do not improve within 15 20 minutes after you use your reliever or rescue medicine (bronchodilator). If you have any of these symptoms: These symptoms represent a serious problem that is an emergency. Do not wait to see if the symptomswill go away. Get medical help right away. Call your local emergency services (911 in the [place] Donot drive yourself to the hospital. Use your reliever or rescue medicine. ?Start a nebulizer treatment or take 2 4 puffs from a metered-dose inhaler with a spacer. ?Repeat this action every 15 20 minutes until help arrives. Where to find more information You can find more information about asthma from: Centers for Disease Control and Prevention: www.cdc.gov [place] [employer]: www.lung.org This information is not intended to replace advice given to you by your health care provider. Make sure you discuss any questions you have with your health care provider. Document Revised: 06/21/2021 Document Reviewed: 06/21/2021 [employer] Patient Education 2022 [employer]. 08/27/2023 12:31:34 Chronic Obstructive Pulmonary Disease Chronic Obstructive Pulmonary Disease Chronic obstructive pulmonary disease (COPD) is a long-term (chronic) condition that affects the lungs. COPD is a general term that can be used to describe many different lung problems that cause lung inflammation and limit airflow, including chronic bronchitis and emphysema. If you have COPD, your lung function will probably never return to normal. In most cases, it gets worse over time. However, there are steps you can take to slow the progression of the disease and improve your quality of life. What are the causes? This condition may be caused by: Smoking. This is the most common cause. Certain genes passed down through families. What increases the risk? The following factors may make you more likely to develop this condition: Being exposed to secondhand smoke from cigarettes, pipes, or cigars. Being exposed to chemicals and other irritants, such as fumes and dust in the work environment. Having chronic lung conditions or infections. What are the signs or symptoms? Symptoms of this condition include: Shortness of breath, especially during physical activity. Chronic cough with a large amount of thick mucus. Sometimes, the cough may not have any mucus (dry cough). Wheezing and rapid breathing. Hansen or bluish discoloration (cyanosis) of the skin, especially in the fingers, toes, or lips. Feeling tired (fatigue). Weight loss. Chest tightness. Frequent infections. Episodes when breathing symptoms become much worse (exacerbations). At the later stages of this disease, you may have swelling in the ankles, feet, or legs. How is this diagnosed? This condition is diagnosed based on: Your medical history. A physical exam. You may also have tests, including: Lung (pulmonary) function tests. This may include a spirometry test, which measures your ability toexhale properly. Chest X-ray. CT scan. Blood tests. How is this treated? This condition may be treated with: Medicines. These may include inhaled rescue medicines to treat acute exacerbations as well as medicines that you take long-term (maintenance medicines) to prevent flare-ups of COPD. ?Bronchodilators help treat COPD by dilating the airways to allow increased airflow and make your breathing more comfortable. ?Steroids can reduce airway inflammation and help prevent exacerbations. Smoking cessation. If you smoke, your health care provider may ask you to quit, and may also recommend therapy or replacement products to help you quit. Pulmonary rehabilitation. This may involve working with a team of health care providers and specialists, such as respiratory, occupational, and physical therapists. Exercise and physical activity. These are beneficial for nearly all people with COPD. Nutrition therapy to gain weight, if you are underweight. Oxygen. Supplemental oxygen therapy is only helpful if you have a low oxygen level in your blood (hypoxemia). Lung surgery or transplant. Palliative care. This is to help people with COPD feel comfortable when treatment is no longer working. Follow these instructions at home: Medicines Take nzkl-kfs-puypetb and prescription medicines only as told by your health care provider. This includes inhaled medicines and pills. Talk to your health care provider before taking any cough or allergy medicines. You may need to avoid certain medicines that dry out your airways. Lifestyle If you smoke, the most important thing that you can do is to stop smoking. Continuing to smoke willcause the disease to progress faster. Do not use any products that contain nicotine or tobacco. These products include cigarettes, chewing tobacco, and vaping devices, such as e-cigarettes. If you need help quitting, ask your health careprovider. Avoid exposure to things that irritate your lungs, such as smoke, chemicals, and fumes. Stay active, but balance activity with periods of rest. Exercise and physical activity will help you maintain your ability to do things you want to do. Learn and use relaxation techniques to manage stress and to control your breathing. Get the right amount of sleep and get quality sleep. Most adults need 7 or more hours per night. Eat healthy foods. Eating smaller, more frequent meals and resting before meals may help you maintain your strength. Controlled breathing Learn and use controlled breathing techniques as directed by your health care provider. Controlled breathing techniques include: Pursed lip breathing. Start by breathing in (inhaling) through your nose for 1 second. Then, purse your lips as if you were going to whistle and breathe out (exhale) through the pursed lips for 2 seconds. Diaphragmatic breathing. Start by putting one hand on your abdomen just above your waist. Inhale slowly through your nose. The hand on your abdomen should move out. Then purse your lips and exhale slowly. You should be able to feel the hand on your abdomen moving in as you exhale. Controlled coughing Learn and use controlled coughing to clear mucus from your lungs. Controlled coughing is a series of short, progressive coughs. The steps of controlled coughing are: 1.Lean your head slightly forward. 2.Breathe in deeply using diaphragmatic breathing. 3.Try to hold your breath for 3 seconds. 4.Keep your mouth slightly open while coughing twice. 5.Spit any mucus out into a tissue. 6.Rest and repeat the steps once or twice as needed. General instructions Make sure you receive all the vaccines that your health care provider recommends, especially the pneumococcal and influenza vaccines. Preventing infection and hospitalization is very important when you have COPD. Drink enough fluid to keep your urine pale yellow, unless you have a medical condition that requires fluid restriction. Use oxygen therapy and pulmonary rehabilitation if told by your health care provider. If you require home oxygen therapy, ask your health care provider whether you should purchase a pulse oximeter tomeasure your oxygen level at home. Work with your health care provider to develop a COPD action plan. This will help you know what steps to take if your condition gets worse. Keep other chronic health conditions under control as told by your health care provider. Avoid extreme temperature and humidity changes. Avoid contact with people who have an illness that spreads from person to person (is contagious), such as viral infections or pneumonia. Keep all follow-up visits. This is important. Contact a health care provider if: You are coughing up more mucus than usual. There is a change in the color or thickness of your mucus. Your breathing is more labored than usual. Your breathing is faster than usual. You have difficulty sleeping. You need to use your rescue medicines or inhalers more often than expected. You have trouble doing routine activities such as getting dressed or walking around the house. Get help right away if: You have shortness of breath while you are resting. You have shortness of breath that prevents you from: ?Being able to talk. ?Performing your usual physical activities. You have chest pain lasting longer than 5 minutes. Your skin color is more blue (cyanotic) than usual. You measure low oxygen saturations for longer than 5 minutes with a pulse oximeter. You have a fever. You feel too tired to breathe normally. These symptoms may represent a serious problem that is an emergency. Do not wait to see if the symptoms will go away. Get medical help right away. Call your local emergency services (911 in the [place] Do not drive yourself to the hospital. Summary Chronic obstructive pulmonary disease (COPD) is a long-term (chronic) condition that affects the lungs. Your lung function will probably never return to normal. In most cases, it gets worse over time. However, there are steps you can take to slow the progression of the disease and improve your quality of life. Treatment for COPD may include taking medicines, quitting smoking, pulmonary rehabilitation, and changes to diet and exercise. As the disease progresses, you may need oxygen therapy, a lung transplant, or palliative care. To help manage your condition, do not smoke, avoid exposure to things that irritate your lungs, stay up to date on all vaccines, and follow your health care provider's instructions for taking medicines. This information is not intended to replace advice given to you by your health care provider. Make sure you discuss any questions you have with your health care provider. Document Revised: 03/06/2021 Document Reviewed: 03/06/2021 Remitly Patient Education 2022 [employer]. Follow Up Care 08/27/2023 10:14:09 With:Elvi Millan Address: [address] [facility], [place] [address]- When: only if needed [facility] 03-22-2024 Hospital Discharge instructions Patient Education 08/01/2023 14:31:39 Chronic Kidney Disease, Adult Chronic Kidney Disease, Adult Chronic kidney disease (CKD) occurs when the kidneys are slowly and permanently damaged over a longperiod of time. The kidneys are a pair [...] taken to slow kidney damage or to stopit from getting worse. If steps are not [...] Follow these instructions at home: Medicines Take yghb-bew-otyglkn and prescription medicines only as told by your health care provider. The amount of some medicines that you take may need to be changed. Do not take any new medicines unless approved by your health care provider. Many medicines can makekidney damage worse. Do not take any vitamin and mineral supplements unless approved by your health care provider. Many nutritional supplements can make kidney damage worse. Lifestyle Do not use any products that contain nicotine or tobacco, such as cigarettes, e- cigarettes, and chewing tobacco. If you need help [...] care provider about eating or drinking restrictions, includingany prescribed diet. Track your blood pressure at [...] is important. Where to find more information [place] [employer] of Kidney Patients: www.aakp.org National Kidney Foundation: www.kidney.org [place] [employer]: www.akfinc.org Life Options: www.lifeoptions.org Kidney [...] provider. Document Revised: 08/02/2020 Document Reviewed: 08/02/2020 Remitly Patient Education 2022 FindPro[employer]. 08/01/2023 14:31:28 Hyperglycemia Hyperglycemia Hyperglycemia occurs when [...] insulin in the bloodstream, or from the bodynot responding normally to insulin. Hyperglycemia occurs most [...] these instructions at home: General instructions Take bmgm-xfv-pqhrztq and prescription medicines only as told by your health care provider. Do not use any products that contain nicotine or tobacco. These products include cigarettes, chewing tobacco, and vaping devices, such as e-cigarettes. If you need help quitting, ask your health careprovider. If you drink alcohol: ?Limit how much [...] alert jewelry. Where to find more information [place] Diabetes Association: www.diabetes.org Contact a health care [...] provider. Document Revised: 02/09/2021 Document Reviewed: 02/09/2021 Remitly Patient Education 2022 [employer]. 08/01/2023 14:31:24 BMI for Adults BMI for Adults What is BMI? Body mass index (BMI) is a number that is calculated from a person's weight and height. BMI can help estimate how much of a person's weight is composed of fat. BMI does not measure body fat directly.Rather, it is an alternative to procedures that [...] your height. Both height and weight are measured,and the BMI is calculated from those numbers. This can be done either in [place] ([place] or metric measurements. Note that charts and online BMI calculators are available to help you find your BMI quickly and easily without having to do these calculations yourself. To calculate your BMI in [place] measurements: 1.Measure your weight in pounds [...] inches squared measurement is 70 inches x 70inches, which equals 4,900 inches squared. 4.Divide the [...] muscular build, such as an athlete, may havea BMI that is higher than 24.9. In cases like these, BMI is not an accurate measure of body fat. To determine if excess body fat is the cause of a BMI of 25 or higher, further assessments may needto be done by a health care provider. BMI is usually interpreted in the same way for men and women. Where to find more information For more information about BMI, including tools to quickly calculate your BMI, go to these websites: Centers for Disease Control and Prevention: www.cdc.gov [place] Heart Association: www.heart.org National Heart, Lung, and Blood [place]: www.nhlbi.nih.gov Summary Body mass index (BMI) is a number that is calculated from a person's weight and height. BMI may help estimate how much of a person's weight is composed of fat. BMI can help identify thosewho may be at higher risk for certain medical problems. BMI can be measured using [place] measurements or metric measurements. BMI charts are used to identify whether you are underweight, normal weight, overweight, or obese. This information is not intended to replace advice given to you by your health care provider. Make sure you discuss any questions you have with your health care provider. Document Revised: 01/19/2020 Document Reviewed: 11/26/2019 Remitly Patient Education 2022 [employer]. [facility] 02-15-2024 History of Present illness Narrative* Eleonora Easton MD - 06/26/2023 8:45 AM EST Assessment/Plan need to treat the spasm with botox and tarsorrhaphy as well Assessment/Plan documented in [facility] encounterUniversity [facility] [id number] Hospital Discharge instructions Patient Education 06/25/2023 12:27:52 Corneal Abrasion Corneal Abrasion A corneal abrasion is a scratch or injury to the clear covering over the front of the eye (cornea).Your cornea forms a clear dome that protects your eye and helps to focus your vision. Your cornea is made up of many layers, but the surface layer is one of the most sensitive tissues in your body. Acorneal abrasion can be very painful. If a corneal abrasion is not treated, it can become infected and cause an ulcer. This can lead to scarring. A scarred cornea can affect your vision. Sometimes abrasions come back in the same area, even after the original injury has healed. What are the causes? This condition may be caused by: A engraving supervisor the eye. A gritty or irritating substance [...] in diseases and conditions of the eye (associate dentist). This condition may be diagnosed based on your medical history, symptoms, and an eye exam. Before the eye exam, numbing drops may be put into your eye. You may also have dye put in your eye with a dropper or a small paper strip. The dye makes the abrasion easy to see when your associate dentist examines your eye with a light. Your associate dentist may look at your eye through an [...] them as told by your health care provider.Do not stop using the antibiotic even if you start to feel better. Take fjrx-vjn-vqdngrv and prescription medicines only as told by your health care provider. Ask your health care provider if the medicine prescribed to you: ?Requires you to avoid driving or using heavy machinery. ?Can cause constipation. You may need to take these actions to prevent or treat constipation: ?Drink enough fluid to keep your urine pale yellow. ?Take yhjq-egk-wrdmdaj or prescription medicines. ?Eat foods that are [...] wearing an eye patch. 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 ?Follow instructions from [...] machinery while wearing it. 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 Let your health care provider know if your symptoms continue for more than 2 days. This information is not intended to replace advice given to you by your health care provider. Make sure you discuss any questions you have with your health care provider. Document Revised: 09/03/2019 Document Reviewed: 09/03/2019 Remitly Patient Education 2022 [employer]. Follow Up Care 06/25/2023 09:09:09 With:Eleonora Easton Address: [address] [address] Business (1) When:06/28/2023 12:04:46 Comments:Immediately go to Dr. Easton's office at 1 PM for your appointment. With:Deonte ROSARIO Address: [facility] [address], [place] [address] Business (1) When:Within 3 Day(s) [facility]02-14-2024 History of Present illness Narrative* Eleonora Easton MD - 06/25/2023 1:15 PM EST Assessment/Plan needs amniotic membrane Placed right, ??stability because of spasm Rv tomorrow for botox documented in this encounterUniversity of Missouri Children's [id number] Hospital Discharge instructions Patient Education 06/25/2023 09:04:34 Carotid Artery Disease Carotid Artery Disease Carotid artery disease, also called carotid artery stenosis, is the narrowing or blockage of one orboth carotid arteries. The carotid arteries are the two main blood vessels on either side of the neck. They supply blood to the brain, other parts of the head, and the neck. Carotid artery disease increases your risk for a stroke or a transient ischemic attack (TIA). A TIAis a mini-stroke that causes stroke-like symptoms that [...] stroke or TIA occurs. In some cases, yourhealth care provider may be able to hear [...] to stay physically active. It is recommended thateach week you get at least 150 minutes of moderate-intensity exercise or 75 minutes of exercise that takes a lot of effort. Do not use any products that contain nicotine or tobacco, such as cigarettes, e- cigarettes, and chewing tobacco. If you need help [...] for stress management tips. General instructions Take ldkd-ycv-fxxpfyk and prescription medicines only as told by your health care provider. Keep all follow-up visits as told by your health care provider. This is important. Where to find more information [place] [employer] Association: www.heart.org Get help right away if: You have any symptoms of a stroke. BE FAST is an easy way to remember the main warning signs of astroke: ?B - Balance. Signs are dizziness, sudden trouble walking, or loss of balance. ?E - Eyes. Signs are trouble seeing or a sudden change in vision. ?F - Face. Signs are sudden weakness or numbness of the face, or the face or eyelid drooping on oneside. ?A - Arms. Signs are weakness or [...] is the narrowing or blockage of one orboth carotid arteries. Carotid artery disease increases your risk for a stroke or a transient ischemic attack (TIA). This condition can be treated with lifestyle changes, medicines, surgery, or a combination of thesetreatments. Get help right away if you have any symptoms of stroke. The acronym BEFAST is an easy way to remember the main warning signs of stroke. This information is not intended to replace advice given to you by your health care provider. Make sure you discuss any questions you have with your health care provider. Document Revised: 07/25/2022 Document Reviewed: 11/08/2019 Remitly Patient Education 2022 [employer]. Follow Up Care 03/04/2023 13:38:04 With:Deonte ROSARIO MD, MED Address: [facility] [address], [place] [address]- When:Within 1 Week(s) With:Deonte ROSARIO MD, MED Address: [facility] [address], [place] [address]- When: Unknown Comments:at regular appt but sooner if needed. [facility] 10-24-2023 Hospital Discharge instructions Patient Education 03/04/2023 13:26:32 Hypertension, Adult, Zcgm-te-Ogbu Hypertension, Adult Hypertension is another name for high blood pressure. High blood pressure forces your heart to workharder to pump blood. This can cause problems [...] at each meal with low-fat (lean) proteins. Low- fat proteins include fish, chicken without skin, eggs, [...] doctor. Keep all follow-up visits. Medicines Take oavq-kav-wviltxt and prescription medicines only as told by your doctor. Follow directions carefully. Do not skip doses of blood pressure medicine. The medicine does not work as well if you skip doses.Skipping doses also puts you at risk for [...] provider. Document Revised: 02/14/2022 Document Reviewed: 02/14/2022 Remitly Patient Education 2022 FindPro[employer]. Follow Up Care 11/22/2022 14:18:32 With:PAULO HINOJOSA, Deonte Turpin, [facility] Address: [facility] [address] [facility] [address], [place] [address]- When:Within 3 Month(s) [facility] 10-02-2023 Hospital Discharge instructions Patient Education 02/10/2023 14:15:49 [...] esophagus that makes it difficult, painful, or impossibleto swallow. This can be caused by gastroesophageal [...] including vitamins, herbs, eye drops, creams, and tnes-reu-rcmhcqh medicines. Any problems you or family members [...] provider tells you to take them. ?Taking gyoh-nmj-srprtxb medicines, vitamins, herbs, and supplements. Follow instructions [...] is inserted into the esophagus. The balloon isinflated to stretch the esophagus and open it up. The procedure may vary among health care providers and hospitals. What can I expect after the procedure? Your blood pressure, heart rate, breathing rate, and blood oxygen level will be monitored until youleave the hospital or clinic. Your throat may [...] home. Follow these instructions at home: Take eoxs-gwv-xcockrf and prescription medicines only as told by [...] contain nicotine or tobacco, such as cigarettes, e- cigarettes, and chewing tobacco. If you need help [...] provider. Document Revised: 09/13/2020 Document Reviewed: 09/13/2020 Remitly Patient Education 2022 FindProz. 02/10/2023 14:15:49 Upper Endoscopy, Adult, Care After [...] what activities are safe for you. Take tyyq-bwz-qnrpuym and prescription medicines only as told by [...] provider. Document Revised: 03/03/2020 Document Reviewed: 09/28/2018 Remitly Patient Education 2022 FindProz. Follow Up Care 01/17/2023 09:40:15 With:Wolf Peres Address: [address] [place] [address], [facility] [address] [address]- [phone] Business (1) When: Unknown Comments:Call for any problems. [facility]09-29-2023 Hospital Discharge instructions Patient Education 02/07/2023 13:23:46 Neuropathic Pain Neuropathic Pain Neuropathic pain is pain caused by damage to the nerves that are responsible for certain sensationsin your body (sensory nerves). Neuropathic pain can make you more sensitive to pain. Even a minor sensation can feel very painful.This is usually a long-term (chronic) condition that [...] many diseases that are passed down through families(genetic). What increases the risk? You are more [...] this treated? Treatment for neuropathic pain may plant changer time. You may need to try different treatment options or a combination of treatments. Some options include: Treating the underlying cause of the neuropathy, such as diabetes, kidney disease, or vitamin deficiencies. Stopping medicines that can cause neuropathy, such as chemotherapy. Medicine to relieve pain. Medicines may include: ?Prescription or pfsc-chw-fobhhoe pain medicine. ?Anti-seizure medicine. ?Antidepressant medicines. ?Pain-relieving patches or creams that are applied to painful areas of skin. ?A medicine to numb the area (local anesthetic), which can be injected as a nerve block. Transcutaneous nerve stimulation. This uses electrical currents to block painful nerve signals. Thetreatment is painless. Alternative treatments, such as: ?Acupuncture. ?Meditation. ?Massage. ?Occupational or physical therapy. ?Pain management programs. ?Counseling. Follow these instructions at home: Medicines Take fnky-gih-yrnrspc and prescription medicines only as told by your health care provider. Ask your health care provider if the medicine prescribed to you: ?Requires you to avoid driving or using machinery. ?Can cause constipation. You may need to take these actions to prevent or treat constipation: ?Drink enough fluid to keep your urine pale yellow. ?Take drsv-ctx-psejtmo or prescription medicines. ?Eat foods that are [...] you need help quitting, ask your health careprovider. Do not drink alcohol. General instructions Learn [...] yourself or others, or have thoughts about takingyour own life. Go to your nearest emergency room or: Call 911. Call the National Suicide Prevention Lifeline at or 420. This is open 24 hours a day. Text the Crisis Text Line at 569055. Summary Neuropathic pain is pain caused by damage to the nerves that are responsible for certain sensationsin your body (sensory nerves). Neuropathic pain may [...] provider. Document Revised: 12/24/2021 Document Reviewed: 12/24/2021 Remitly Patient Education 2022 FindProz. 02/07/2023 13:23:45 Shingles Shingles Shingles, which is also known as herpes zoster, is an infection that causes a painful skin rash andfluid-filled blisters. It is caused by a virus. [...] a specialist, such as an eye doctor (associate dentist) or an ear, nose, and throat (ENT) doctor (agile qa tester) to help you avoid eye problems, chronic pain, or disability. Follow these instructions at home: Medicines Take xzfx-zge-kebstdh and prescription medicines only as told by your health care provider. Apply an anti-itch cream or numbing cream to the affected area as told by your health care provider. Relieving itching and discomfort Apply cold, wet cloths (cold compresses) to the area of the rash or blisters as told by your healthcare provider. Cool baths can be soothing. Try adding baking soda or dry oatmeal to the water to reduce itching. Do not bathe in hot water. Use calamine lotion as recommended by your health care provider. This is an kmls-ocq-rglsrxa lotionthat helps to relieve itchiness. Blister and rash care Keep your rash covered with a loose bandage (dressing). Wear loose-fitting clothing to help ease the pain of material rubbing against the rash. Wash your hands with soap and water for at least 20 seconds before and after you change your dressing. If soap and water are not available, use hand glass curvature gauger. Change your dressing as told by your health care provider. Keep your rash and blisters clean by washing the area with mild soap and cool water as told by yourhealth care provider. Check your rash every day [...] and water are not available, use hand glass curvature gauger. Doing this lowers your chance of getting [...] provider. Document Revised: 04/23/2021 Document Reviewed: 04/23/2021 Remitly Patient Education 2022 FindProz. Follow Up Care 01/29/2023 10:14:04 With:Radu FLORES, Elvi Vergara Address: [address], [place] [address]- When: only if needed [facility] 07-14-2023 Hospital Discharge instructions Patient Education 11/22/2022 14:06:05 Hypertension, Adult, Uqlo-ce-Orho Hypertension, Adult Hypertension is another name for high blood pressure. High blood pressure forces your heart to workharder to pump blood. This can cause problems [...] at each meal with low-fat (lean) proteins. Low- fat proteins include fish, chicken without skin, eggs, [...] doctor. Keep all follow-up visits. Medicines Take sgcv-wat-mfcgxew and prescription medicines only as told by your doctor. Follow directions carefully. Do not skip doses of blood pressure medicine. The medicine does not work as well if you skip doses.Skipping doses also puts you at risk for [...] provider. Document Revised: 02/14/2022 Document Reviewed: 02/14/2022 Remitly Patient Education 2022 FindProz. Follow Up Care 07/31/2022 14:36:54 With:PAULO HINOJOSA, Deonte Turpin, MED Address: [facility] [address] [facility] [address], [place] [address]- When:Within 3 Month(s) [facility] 03-22-2023 Hospital Discharge instructions Patient Education 07/31/2022 15:14:09 [...] Being older than age 40. Being of -[place] descent. Having high blood pressure or diabetes. Having a family history of glaucoma. Having a previous eye injury or eye surgery. Being farsighted. Using certain medicines that increase pressure in the eyes or cause the pupils to widen (dilate). What are the signs or symptoms? Open-angle glaucoma often causes no symptoms early on. If it is not treated, the condition will getworse and may cause a loss of side [...] diagnosed through an eye exam by an brand marketing specialist (associate dentist). This specialist will: Perform a test to [...] medicine. Follow these instructions at home: Take gdyc-xjj-bejuvaf and prescription medicines only as told by [...] it is not treated, the condition will getworse and may cause a loss of vision. [...] 04/28/2006 Document Revised: 04/10/2018 Document Reviewed: 12/25/2017 Remitly Patient Education 2020 Rem[employer]ly Inc. 07/31/2022 15:14:02 BMI for Adults BMI [...] problems. It is used to check whether aperson is obese, overweight, healthy weight, or underweight. How is BMI calculated? BMI measures your weight and compares it to your height. This can be done either in [place] or metric measurements. Note that charts are available to help you find your BMI quickly and easily without having to do these calculations yourself. To calculate your BMI in [place] measurements, your health care provider will: [...] muscular build, such as an athlete, may havea BMI that is higher than 24.9. In cases like these, BMI is not an accurate measure of body fat. To determine if excess body fat is the cause of a BMI of 25 or higher, further assessments may needto be done by a health care provider. [...] medical problems. BMI can be measured using [place] measurements or metric measurements. To interpret your [...] 01/07/2005 Document Revised: 04/10/2018 Document Reviewed: 03/11/2018 Remitly Patient Education 2020 FindProz. 07/31/2022 14:32:07 Hypertension, Adult, Eaab-rh-Oyrn Hypertension, Adult Hypertension is another name for high blood pressure. High blood pressure forces your heart to workharder to pump blood. This can cause problems [...] at each meal with low-fat (lean) proteins. Low- fat proteins include fish, chicken without skin, eggs, [...] contain nicotine or tobacco, such as cigarettes, e- cigarettes, and chewing tobacco. If you need help quitting, ask your doctor. Check your blood pressure at home as told by your doctor. Keep all follow-up visits as told by your doctor. This is important. Medicines Take yzol-pyn-zxdoqay and prescription medicines only as told by your doctor. Follow directions carefully. Do not skip doses of blood pressure medicine. The medicine does not work as well if you skip doses.Skipping doses also puts you at risk for [...] 10/14/2008 Document Revised: 01/06/2019 Document Reviewed: 01/06/2019 Remitly Patient Education 2020 FindProz. Follow Up Care 05/01/2022 10:10:07 With:PAULO HINJOOSA, Deonte Turpin, MED Address: [place] [address], [place] [address]- When:Within 3 Month(s) [facility] 02-08-2023 History of Present illness Narrative* Isaias Carrion - 06/19/2022 5:15 PM EST CLINICAL PHARMACY NOTE: MEDS TO BEDS Total # of Prescriptions Filled: 2 The following medications were delivered to the patient: Carvedilol prednisone Additional Documentation: * Damien Villar RN - 06/19/2022 12:09 PM EST Patient back to room from barium swallow test. * Damien Villar RN - 06/19/2022 11:30 AM EST Patient to barium swallow test with transport. * Mary Grace Cheung PTA - 06/19/2022 9:27 AM EST Physical Therapy Facility/Department: [facility] 3- MICU Physical Therapy Daily treatment [...] UE assist, no LOB x5 AM-PAC Score AM-[facility] Inpatient Mobility Raw Score : 20 (06/19/22 0760) AM-PAC Inpatient T-Scale Score : 47.67 (06/19/22926) [...] Minutes: 24 Minutes Mary Grace Cheung PTA * Adrian Riley MD - 06/19/2022 7:51 AM EST Critical Care Team - Daily Progress Note Date and time: 06/19/2022 7:51 AM Patient's name: Piedad Alatorre Patient's account/billing number: [id number] Patient's Date of : 1935 Age: 86 [...] in muscle strength numbness/tingling HPI: Referred from [facility] ER for the concern of angioedema. Patient was in her normal state and suddenly started noticing tongue swelling, throat swelling withdifficulty swallowing and change in her voice at 5 PM yesterday. Denies skin rash or difficulty breathing. She lives in a [facility] [place], nurse recommended to visit the emergency department. She was seen in the [facility] and was given IV antihistamine Solu-Medrol epi [...] Net 451.05 ml Date 06/19/22 0000 - 06/19/222358 Shift 8220-0244 [id number] 24 Hour Total INTAKE I.V.(mL/kg) 1(0) 1(0) [...] to name, place and time. Cranial nerves II- XII are grossly intact. Motor is 5 out [...] DATA: Complete Blood Count: Recent Labs 06/17/22 0806/18/2245306/19/22253 WBC 12.8* 23.3* 21.5* HGB 10.2* 9.4* [...] Last 3 Blood Glucose: Recent Labs 06/17/22 0806/18/22453 GLUCOSE 165* 153* HgBA1c: No results found [...] enzyme inhibitor (MORIS-I) Coronary artery disease involving the [place] coronary artery of the [place] heart Primary hypertension Resolved Problems: * No [...] as tolerated. Replaced metoprolol with Coreg due toslight association of angioedema with metoprolol as well. [...] MD, Department of Internal Medicine/ Critical care [facility]) 06/19/2022, 7:51 AM Attending Physician Statement [...] the ribs. CT scan was suggested by radiologythe density is dense and likely calcified we will get CT scan of the chest. Waiting for transfer to the floor with medicine team. Please note that this chart was generated using voice recognition BoB Partn[employer] dictation software. Although every effort was made to ensure the accuracy of this automated pathology transcriptionist, some errors in pathology transcriptionist may have occurred. Adrian Riley MD 06/19/2022 3:22 PM * Oleksandr Cha, PT - 06/18/2022 4:00 PM EST Physical Therapy Facility/Department: [facility] 3- MICU Physical Therapy Initial Assessment Name: Piedad Alatorre : 1935 Date of Service: 06/18/2022 Obtained from medical chart: Patient was in her normal state and suddenly started noticing tongue swelling, throat swelling with difficulty swallowing and change in her voice at 5 PM yesterday. Denies skin rash or difficulty breathing. She lives in a senior [facility], nurse recommended to visit the emergency department. 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 Leisure & Hobbies: listening to music, playing [...] Treatment Minutes: 12 Minutes Oleksandr Cha PT * MONTSE Stafford - 06/18/2022 11:39 AM EST Speech Language Pathology Facility/Department: [facility] BEDSIDE SWALLOW EVALUATION NAME: Piedad Alatorre : 1935 ADMISSION DATE: 06/17/2022 ADMITTING DIAGNOSIS: has Angioedema of tongue; 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 Date of Eval: 06/18/2022 Evaluating Therapist: MONTSE STAFFORD Current Diet level: Current Diet : NPO Primary Complaint Patient was in her normal state and suddenly started noticing tongue swelling, throat swelling withdifficulty swallowing and change in her voice at 5 PM yesterday. Denies skin rash or difficulty breathing. She lives in a [facility], nurse recommended to visit the emergency department. She was seen in the [facility] and was given IV antihistamine Solu-Medrol epi [...] phase is WFL. ST to recommend NPO andMBSS to r/o/confirm aspiration. Results and recommendations reported to RN. Treatment Plan Requires PASTRY WRAPPER Intervention: Yes D/C Recommendations: Ongoing speech therapy [...] 1014 Total Time: 10 MARBELLA HEREDIA M.A. CCC-PASTRY WRAPPER 06/18/2022 11:39 AM * Adrian Riley MD - 06/18/2022 8:07 AM EST Critical Care Team - Daily Progress Note Date and time: 06/18/2022 8:08 AM Patient's name: Piedad Alatorre Patient's account/billing number: [id number] Patient's Date of : 1935 Age: 86 [...] concern for choking or difficulty breathing. She remainedon room air. Blood pressure is 145/66, heart [...] in muscle strength numbness/tingling HPI: Referred from [facility] ER for the concern of angioedema. Patient was in her normal state and suddenly started noticing tongue swelling, throat swelling withdifficulty swallowing and change in her voice at 5 PM yesterday. Denies skin rash or difficulty breathing. She lives in a senior [facility], nurse recommended to visit the emergency department. She was seen in the [facility] and was given IV antihistamine Solu-Medrol epi [...] to name, place and time. Cranial nerves II- XII are grossly intact. Motor is 5 out [...] enzyme inhibitor (MORIS-I) Coronary artery disease involving the [place] coronary artery of the [place] heart Primary hypertension Resolved Problems: * No [...] MD, Department of Internal Medicine/ Critical care [facility]) 06/18/2022, 8:08 AM Attending Physician [...] She continues to complain of feeling of lumpin throat corded patient she is able to [...] at least 30 Min so far today, excludingprocedures. Please note that this chart was generated using voice recognition BoB Partnerson dictation software. Although every effort was made to ensure the accuracy of this automated pathology transcriptionist, some errors in pathology transcriptionist may have occurred. Adrian Riley MD 06/18/2022 12:01 PM * Paulina Todd RPH - 06/17/2022 3:07 PM EST PHARMACY NOTE: The electrolyte replacement protocol for [...] any concerns. Thank you. Paulina Todd PharmD [facility] 06/17/2022 3:07 PM documented in this encounterBON MOR[facility]PITALMofang Phone: 1(189) 935-324902-08-2023 Hospital Discharge instructions* Discharge Instructions* Abebe Coker MD - 06/19/2022 3:17 PM [...] We also stopped Lopressor with slight association forangioedema and replace that with Coreg. Please follow-up with your PCP within 1 week of discharge and discussed about antihypertensive medication. Continue to take your rest of the medicines as prescribed. You also underwent barium swallow study and per speech recommendation, you are good to have regulardiet with thin consistency. Please remember to have a repeat CT scan of the chest due to 0.8 cm solid nodule. Discussed with your PCP. Also discussed anemia work-up with your PCP. In case of worsening symptoms, seek medical attention come to emergency department. documented in this encounterBON [employer] Phone: 1(415) 103-466612-21-2022 Hospital Discharge instructions Patient Education 05/01/2022 10:05:57 Hypertension, Adult, Urmy-xj-Rupp Hypertension, Adult Hypertension is another name for high blood pressure. High blood pressure forces your heart to workharder to pump blood. This can cause problems [...] at each meal with low-fat (lean) proteins. Low- fat proteins include fish, chicken without skin, eggs, [...] contain nicotine or tobacco, such as cigarettes, e- cigarettes, and chewing tobacco. If you need help quitting, ask your doctor. Check your blood pressure at home as told by your doctor. Keep all follow-up visits as told by your doctor. This is important. Medicines Take hmpc-inx-yuulmyr and prescription medicines only as told by your doctor. Follow directions carefully. Do not skip doses of blood pressure medicine. The medicine does not work as well if you skip doses.Skipping doses also puts you at risk for [...] 10/14/2008 Document Revised: 01/06/2019 Document Reviewed: 01/06/2019 Remitly Patient Education 2020 [employer]. Follow Up Care 01/22/2022 12:28:23 With:PAULO HINOJOSA, Deonte Turpin, [facility] Address: [facility] [address] [facility] [address], [place] [address]- When:Within 3 Month(s) [facility] 11-07-2022 Hospital Discharge instructions Patient Education 03/18/2022 10:33:09 Colonoscopy, Care After Surgery [place] (CUSTOM) Colonoscopy Care After Surgery Please read the instructions outlined below and refer to this sheet in the next few weeks. These discharge instructions provide you with general information on caring for yourself after you leave [facility] hospital. Your doctor may also give you [...] Heavy or fried foods are harder to digestand may make you feel nauseated (sick to [...] may be born with a weakness in thehiatus, or a weakness can develop over time. What increases the risk? This condition is more likely to develop in: Older people. Age is a major risk factor for a hiatal hernia, especially if you are over the age of50. women. People who are overweight. People who [...] reduce GERD symptoms. Medicines. These may include: ?Xmtz-yio-qqqtbrb antacids. ?Medicines that make your stomach empty [...] may include: ?Fatty foods, like fried foods. ?Chugach fruits, like oranges or lemon. ?Other foods [...] Do not drink alcohol. General instructions Take ctkq-nbj-npoauev and prescription medicines only as told by [...] 07/18/2004 Document Revised: 04/10/2018 Document Reviewed: 12/01/2017 Remitly Patient Education 2019 [employer]. Follow Up Care 01/30/2022 11:34:55 With:Rosette SOSA Address: [address] [place] [address] Business (1) When: Unknown Comments:OFFICE WILL CALL DATE AND TIME OF FOLLOW-UP APPT. [facility]09-13-2022 Hospital Discharge instructions Patient Education 01/22/2022 12:06:50 Hypertension, Adult, Qdof-en-Kzeo Hypertension, Adult Hypertension is another name for high blood pressure. High blood pressure forces your heart to workharder to pump blood. This can cause problems [...] at each meal with low-fat (lean) proteins. Low- fat proteins include fish, chicken without skin, eggs, [...] contain nicotine or tobacco, such as cigarettes, e- cigarettes, and chewing tobacco. If you need help quitting, ask your doctor. Check your blood pressure at home as told by your doctor. Keep all follow-up visits as told by your doctor. This is important. Medicines Take qstp-rnk-fcpbber and prescription medicines only as told by your doctor. Follow directions carefully. Do not skip doses of blood pressure medicine. The medicine does not work as well if you skip doses.Skipping doses also puts you at risk for [...] 10/14/2008 Document Revised: 01/06/2019 Document Reviewed: 01/06/2019 Remitly Patient Education 2020 [employer]. Follow Up Care 10/17/2021 11:58:35 With:PAULO HINOJOSA, Deonte Turpin, MED Address: [address], [place] [address]- When:Within 3 Month(s) [facility] 06-08-2022 Hospital Discharge instructions Patient Education 10/17/2021 11:53:49 Hypertension, Adult, Vvnn-vg-Mkcu Hypertension, Adult Hypertension is another name for high blood pressure. High blood pressure forces your heart to workharder to pump blood. This can cause problems [...] at each meal with low-fat (lean) proteins. Low- fat proteins include fish, chicken without skin, eggs, [...] contain nicotine or tobacco, such as cigarettes, e- cigarettes, and chewing tobacco. If you need help quitting, ask your doctor. Check your blood pressure at home as told by your doctor. Keep all follow-up visits as told by your doctor. This is important. Medicines Take uzjv-cxq-zpgypqk and prescription medicines only as told by your doctor. Follow directions carefully. Do not skip doses of blood pressure medicine. The medicine does not work as well if you skip doses.Skipping doses also puts you at risk for [...] 10/14/2008 Document Revised: 01/06/2019 Document Reviewed: 01/06/2019 Remitly Patient Education 2020 [employer]. Follow Up Care 07/03/2021 16:48:31 With:PAULO HINOJOSA, Deonte Turpin, MED Address: [facility] [address] [facility] [place] [address]- When:Within 3 Month(s) [facility] 08-26-2020 Evaluation + Plan note Future Appointments Appointment Date:01/01/2022 09:00:00 AM Scheduled Provider: Location:.[facility] Appointment Type:CV Echo (FT) Appointment Date:01/04/2022 02:00:00 PM Scheduled Provider:Juancho Catherine [facility] Type:Cardiology Follow Up (FT) Appointment Date:01/22/2022 10:00:00 AM Scheduled Provider:Deonte ROSARIO MD Location:[facility] Appointment Type:FM Open Appointment Date:01/30/2022 10:30:00 AM Scheduled Provider:Rosette SOSA MD Location:[facility] Appointment Type:BAD Follow Up Future Scheduled Tests Laboratory* HgbA1c 03/13/21 * CBC w/ Auto Diff 03/13/21 * Comprehensive Metabolic Panel 03/13/21 * Lipid Panel 03/13/21 Radiology* Echo Transthoracic [facility] App[facility]ments Appointment Date:01/22/2022 10:00:00 AM Scheduled Provider:Deonte ROSARIO MD Location:[facility] Appointment Type: Open Future Scheduled Tests Laboratory* HgbA1c 03/13/21 * CBC w/ Auto Diff 03/13/21 * Comprehensive Metabolic Panel 03/13/21 * Lipid Panel 03/13/21 [facility] Evaluation + Plan note Future Appointments Appointment Date:12/14/2021 10:30:00 AM Scheduled Provider: [facility] Type:Cardiology Nurse Visit (FT) Appointment Date:01/04/2022 02:00:00 PM Scheduled Provider:Juancho Catherine MD [facility] Type:Cardiology Follow Up (FT) Appointment Date:01/22/2022 10:00:00 AM Scheduled Provider:Deonte ROSARIO MD Location:[facility] Appointment Type:FM Open Appointment Date:01/30/2022 10:30:00 AM Scheduled Provider:Rosette SOSA MD Location:[facility] Appointment Type:[facility] Follow Up Future Scheduled Tests Laboratory* HgbA1c 03/13/21 * CBC w/ Auto Diff 03/13/21 * Comprehensive Metabolic Panel 03/13/21 * Lipid Panel 03/13/21 Radiology* Echo Transthoracic [facility]30[facility]21 [facility]ments Appointment Date:01/18/2022 01:30:00 PM Scheduled Provider:Juancho Catherine [facility] Type:Cardiology Follow Up (FT) Appointment Date:01/22/2022 10:00:00 AM Scheduled Provider:Deonte ROSARIO MD Location:[facility] Appointment Type:FM Open Appointment Date:01/30/2022 10:30:00 AM Scheduled Provider:Rosette SOSA MD Location:[facility] Appointment Type:[facility] Follow Up Future Scheduled Tests Laboratory* HgbA1c 03/13/21 * CBC w/ Auto Diff 03/13/21 * Comprehensive Metabolic Panel 03/13/21 * Lipid Panel 03/13/21 [facility]ments Appointment Date:01/22/2022 10:00:00 AM Scheduled Provider:Deonte ROSARIO MD Location:[facility] Appointment Type: Open Appointment Date:01/30/2022 10:30:00 AM Scheduled Provider:Rosette SOSA MD Location:[facility] Appointment Type:[facility] Follow Up Appointment Date:05/16/2022 01:15:00 PM Scheduled Provider:Juancho Catherine [facility] Type:Cardiology Follow Up (FT) Future Scheduled Tests Laboratory* HgbA1c 03/13/21 * CBC w/ Auto Diff 03/13/21 * Comprehensive Metabolic Panel 03/13/21 * Lipid Panel 03/13/21 * Lipid Panel [facility]/18/22 [facility]ments Appointment Date:01/30/2022 10:30:00 AM Scheduled Provider:Rosette SOSA MD Location:[facility] Appointment Type:[facility] Follow Up Appointment Date:05/01/2022 10:00:00 AM Scheduled Provider:Deonte ROSARIO MD Location:[facility] Appointment Type:FM Open Appointment Date:05/16/2022 01:15:00 PM Scheduled Provider:Juancho Catherine [facility] Type:Cardiology Follow Up (FT) Future Scheduled Tests Laboratory* HgbA1c 01/22/22 * HgbA1c 03/13/21 * CBC w/ Auto Diff 01/22/22 * CBC w/ Auto Diff 03/13/21 * Comprehensive Metabolic Panel 01/22/22 * Comprehensive Metabolic Panel 03/13/21 * Lipid Panel 01/22/22 * Lipid Panel 03/13/21 * Lipid Panel 01/18/22 [facility] Evaluation + Plan note Future Appointments Appointment Date:02/18/2022 02:30:00 PM Scheduled Provider: Location:[facility] Surgical Services Appointment Type:Surgery FT Appointment Date:05/01/2022 10:00:00 AM Scheduled Provider:Deonte ROSARIO MD Location:[facility] Appointment Type: Open Appointment Date:05/16/2022 01:15:00 PM Scheduled Provider:Juancho Catherine MD [facility] Type:Cardiology Follow Up (FT) Future Scheduled Tests Laboratory* HgbA1c 01/22/22 * HgbA1c 03/13/21 * IgA, Quant. 01/30/22 * t-Transglutaminase IgA 01/30/22 * CBC w/ Auto Diff 01/22/22 * CBC w/ Auto Diff 03/13/21 * Comprehensive Metabolic Panel 01/22/22 * Comprehensive Metabolic Panel 03/13/21 * GGT 01/30/22 * Lipid Panel 01/22/22 * Lipid Panel 03/13/21 * Lipid Panel 01/18/22 * Reticulocyte Count 01/30/22 * Thyroid Stimulating Hormone 01/30/22 [facility] Evaluation + Plan note Future Appointments Appointment Date:05/01/2022 10:00:00 AM Scheduled Provider:Deonte ROSARIO MD Location:[facility] Appointment Type: Open Appointment Date:05/16/2022 01:15:00 PM Scheduled Provider:Juancho Catherine MD [facility] Type:Cardiology Follow Up (FT) Future Scheduled Tests Laboratory* HgbA1c 01/22/22 * IgA, Quant. 01/30/22 * t-Transglutaminase IgA 01/30/22 * CBC w/ Auto Diff 01/22/22 * Comprehensive Metabolic Panel 01/22/22 * GGT 01/30/22 * Lipid Panel 01/22/22 * Lipid Panel 01/18/22 * Reticulocyte Count 01/30/22 * Thyroid Stimulating Hormone 01/30/22 [facility] Appointment Date:05/16/2022 01:15:00 PM Scheduled Provider:Juancho Catherine MD [facility] Type:Cardiology Follow Up (FT) Appointment Date:07/31/2022 01:00:00 PM Scheduled Provider: Location:[facility] Appointment Type:FM Medicare Wellness Initial Appointment Date:07/31/2022 02:00:00 PM Scheduled Provider:Deonte ROSARIO MD Location:[facility] Appointment Type: Open Future Scheduled Tests Laboratory* HgbA1c 01/22/22 * IgA, Quant. 01/30/22 * t-Transglutaminase IgA 01/30/22 * CBC w/ Auto Diff 01/22/22 * Comprehensive Metabolic Panel 01/22/22 * GGT 01/30/22 * Lipid Panel 01/22/22 * Lipid Panel 01/18/22 * Reticulocyte Count 01/30/22 * Thyroid Stimulating Hormone 01/30/22 [facility] Evaluation + Plan note Future Appointments Appointment Date:07/31/2022 01:00:00 PM Scheduled Provider: Location:[facility] Appointment Type: Medicare Wellness Initial Appointment Date:07/31/2022 02:00:00 PM Scheduled Provider:Deonte ROSARIO MD Location:[facility] Appointment Type: Open Future Scheduled Tests Laboratory* HgbA1c 01/22/22 * IgA, Quant. 01/30/22 * t-Transglutaminase IgA 01/30/22 * CBC w/ Auto Diff 01/22/22 * Comprehensive Metabolic Panel 01/22/22 * GGT 01/30/22 * Lipid Panel 01/22/22 * Lipid Panel 05/16/22 * Lipid Panel 01/18/22 * Reticulocyte Count 01/30/22 * Thyroid Stimulating Hormone 01/30/22 Radiology* NM Myocardial Spect Rest/Stress 1 Day 05/16/22 [facility] App[facility]ments Appointment Date:11/22/2022 01:40:00 PM Scheduled Provider:Deonte ROSARIO MD Location:[facility] Appointment Type:FM Open Appointment Date:08/01/2023 01:00:00 PM Scheduled Provider: Location:[facility] Appointment Type: Medicare Wellness Subsequent Future Scheduled Tests Laboratory* HgbA1c 01/22/22 * IgA, Quant. 01/30/22 * t-Transglutaminase IgA 01/30/22 * CBC w/ Auto Diff 01/22/22 * Comprehensive Metabolic Panel 01/22/22 * GGT 01/30/22 * Lipid Panel 01/22/22 * Lipid Panel 05/16/22 * Lipid Panel 01/18/22 * Reticulocyte Count 01/30/22 * Thyroid Stimulating Hormone 01/30/22 Radiology* NM Myocardial Spect Rest/Stress 1 Day 07/08/22 [facility] Evaluation + Plan note Future Appointments Appointment Date:03/04/2023 01:20:00 PM Scheduled Provider:Deonte ROSARIO MD Location:[facility] Appointment Type: Open Appointment Date:08/01/2023 01:00:00 PM Scheduled Provider: Location:[facility] Appointment Type:FM Medicare Wellness Subsequent Future Scheduled Tests Laboratory* HgbA1c 01/22/22 * IgA, Quant. 01/30/22 * t-Transglutaminase IgA 01/30/22 * CBC w/ Auto Diff 01/22/22 * Comprehensive Metabolic Panel 01/22/22 * GGT 01/30/22 * Lipid Panel 01/22/22 * Lipid Panel 05/16/22 * Lipid Panel 01/18/22 * Reticulocyte Count 01/30/22 * Thyroid Stimulating Hormone 01/30/22 Radiology* NM Myocardial Spect Rest/Stress 1 Day 07/08/22 [facility] Evaluation + Plan note Future Appointments Appointment Date:02/10/2023 01:30:00 PM Scheduled Provider: Location:[facility] Surgical Services Appointment Type:Surgery FT Appointment Date:03/04/2023 01:20:00 PM Scheduled Provider:Deonte ROSARIO MD Location:[facility] Appointment Type: Open Appointment Date:04/11/2023 09:40:00 AM Scheduled Provider: Location:[facility] Appointment Type: Nurse Visit Appointment Date:08/01/2023 01:00:00 PM Scheduled Provider: Location:[facility] Appointment Type:FM Medicare Wellness Subsequent Future Scheduled Tests Laboratory* Lipid Panel 05/16/22 Radiology* NM Myocardial Spect Rest/Stress 1 Day 07/08/22 [facility] Evaluation + Plan note Future Appointments Appointment Date:03/04/2023 01:20:00 PM Scheduled Provider:Deonte ROSARIO MD Location:[facility] Appointment Type: Open Appointment Date:04/11/2023 09:40:00 AM Scheduled Provider: Location:[facility] Appointment Type: Nurse Visit Appointment Date:08/01/2023 01:00:00 PM Scheduled Provider: Location:[facility] Appointment Type: Medicare Wellness Subsequent Future Scheduled Tests Laboratory* CBC w/ Auto Diff 02/08/23 * Comprehensive Metabolic Panel 02/08/23 * Ferritin 02/08/23 * Folate Level 02/08/23 * Iron Level 02/08/23 * Iron Percent Saturation 02/08/23 * Lipid Panel 05/16/22 * Reticulocyte Count 02/08/23 * Vitamin B12 Level 02/08/23 Radiology* NM Myocardial Spect Rest/Stress 1 Day 07/08/22 [facility] [facility] + Plan note Future Appointments Appointment Date:04/11/2023 09:40:00 AM Scheduled Provider: Location:[facility] Appointment Type: Nurse Visit Appointment Date:06/04/2023 12:00:00 PM Scheduled Provider:Deonte ROSARIO MD Location:[facility] Appointment Type: Open Appointment Date:08/01/2023 01:00:00 PM Scheduled Provider: Location:[facility] Appointment Type: Medicare Wellness Subsequent Future Scheduled Tests Laboratory* HgbA1c 03/04/23 * CBC w/ Auto Diff 03/04/23 * CBC w/ Auto Diff 02/08/23 * Comprehensive Metabolic Panel 03/04/23 * Comprehensive Metabolic Panel 02/08/23 * Ferritin 03/04/23 * Ferritin 02/08/23 * Folate Level 03/04/23 * Folate Level 02/08/23 * Iron Level 03/04/23 * Iron Level 02/08/23 * Iron Percent Saturation 02/08/23 * Lipid Panel 03/04/23 * Lipid Panel 05/16/22 * Reticulocyte Count 03/04/23 * Reticulocyte Count 02/08/23 * Vitamin B12 Level 03/04/23 * Vitamin B12 Level 02/08/23 Radiology* NM Myocardial Spect Rest/Stress 1 Day 07/08/22 [facility] Primary [facility] evaluation + Plan note Future Appointments Appointment Date:04/15/2023 01:40:00 PM Scheduled Provider:Brunilda Redding CNP Location[facility] Appointment Type:BADH Follow Up Appointment Date:06/04/2023 12:00:00 PM Scheduled Provider:Deonte ROSARIO MD Location:[facility] Appointment Type: Open Appointment Date:08/01/2023 01:00:00 PM Scheduled Provider: Location:[facility] Appointment Type: Medicare Wellness Subsequent Future Scheduled Tests Laboratory* HgbA1c 03/04/23 * CBC w/ Auto Diff 03/04/23 * CBC w/ Auto Diff 02/08/23 * Comprehensive Metabolic Panel 03/04/23 * Comprehensive Metabolic Panel 02/08/23 * Ferritin 03/04/23 * Ferritin 02/08/23 * Folate Level 03/04/23 * Folate Level 02/08/23 * Iron Level 03/04/23 * Iron Level 02/08/23 * Iron Percent Saturation 02/08/23 * Lipid Panel 03/04/23 * Lipid Panel 05/16/22 * Reticulocyte Count 03/04/23 * Reticulocyte Count 02/08/23 * Vitamin B12 Level 03/04/23 * Vitamin B12 Level 02/08/23 Radiology* NM Myocardial Spect Rest/Stress 1 Day 07/08/22 [facility] Primary [facility] Evaluation + Plan note Future Appointments Appointment Date:08/01/2023 01:00:00 PM Scheduled Provider: Location:[facility] Appointment Type: Medicare Wellness Subsequent Appointment Date:09/23/2023 03:00:00 PM Scheduled Provider:Deonte ROSARIO MD Location:[facility] Appointment Type: Open Future Scheduled Tests Laboratory* Sedimentation Rate Automated 06/25/23 * HgbA1c 03/04/23 * CBC w/ Auto Diff 03/04/23 * CBC w/ Auto Diff 04/15/23 * CBC w/ Auto Diff 02/08/23 * Comprehensive Metabolic Panel 03/04/23 * Comprehensive Metabolic Panel 02/08/23 * C-Reactive Protein 06/25/23 * Ferritin 03/04/23 * Ferritin 02/08/23 * Folate Level 03/04/23 * Folate Level 02/08/23 * GGT 04/15/23 * Hepatic Function Panel 04/15/23 * Iron Level 03/04/23 * Iron Level 02/08/23 * Iron Percent Saturation 02/08/23 * Lipid Panel 03/04/23 * Reticulocyte Count 03/04/23 * Reticulocyte Count 02/08/23 * Vitamin B12 Level 03/04/23 * Vitamin B12 Level 02/08/23 Radiology* NM Myocardial Spect Rest/Stress 1 Day 07/08/22 * US Liver 04/15/23 [facility] Primary [facility] Evaluation + Plan note Future Appointments Appointment Date:09/23/2023 03:00:00 PM Scheduled Provider:Deonte ROSARIO MD [place] [place] Appointment Type: Open Appointment Date:08/03/2024 01:00:00 PM Scheduled Provider: Location:[facility] Appointment Type:FM Medicare Wellness Subsequent Future Scheduled Tests Laboratory* Sedimentation Rate Automated 06/25/23 * HgbA1c 03/04/23 * CBC w/ Auto Diff 03/04/23 * CBC w/ Auto Diff 04/15/23 * CBC w/ Auto Diff 02/08/23 * Comprehensive Metabolic Panel 03/04/23 * Comprehensive Metabolic Panel 02/08/23 * C-Reactive Protein 06/25/23 * Ferritin 03/04/23 * Ferritin 02/08/23 * Folate Level 03/04/23 * Folate Level 02/08/23 * GGT 04/15/23 * Hepatic Function Panel 04/15/23 * Iron Level 03/04/23 * Iron Level 02/08/23 * Iron Percent Saturation 02/08/23 * Lipid Panel 03/04/23 * Reticulocyte Count 03/04/23 * Reticulocyte Count 02/08/23 * Vitamin B12 Level 03/04/23 * Vitamin B12 Level 02/08/23 Radiology* US Liver 04/15/23 [facility] Primary [facility] Evaluation + Plan note Future Appointments Appointment Date:12/31/2023 02:00:00 PM Scheduled Provider:Deonte ROSARIO MD Location:[facility] Appointment Type: Open Appointment Date:08/03/2024 01:00:00 PM Scheduled Provider: Location:[facility] Appointment Type: Medicare Wellness Subsequent Future Scheduled Tests Laboratory* Sedimentation Rate Automated 06/25/23 * HgbA1c 09/23/23 * HgbA1c 03/04/23 * CBC w/ Auto Diff 09/23/23 * CBC w/ Auto Diff 03/04/23 * CBC w/ Auto Diff 04/15/23 * CBC w/ Auto Diff 02/08/23 * Comprehensive Metabolic Panel 09/23/23 * Comprehensive Metabolic Panel 03/04/23 * Comprehensive Metabolic Panel 02/08/23 * C-Reactive Protein 06/25/23 * Ferritin 03/04/23 * Ferritin 02/08/23 * Folate Level 03/04/23 * Folate Level 02/08/23 * GGT 04/15/23 * Hepatic Function Panel 04/15/23 * Iron Level 03/04/23 * Iron Level 02/08/23 * Iron Percent Saturation 02/08/23 * Lipid Panel 09/23/23 * Lipid Panel 03/04/23 * Reticulocyte Count 03/04/23 * Reticulocyte Count 02/08/23 * Vitamin B12 Level 03/04/23 * Vitamin B12 Level 02/08/23 Radiology* US Liver 04/15/23 [facility] Primary [facility] Evaluation + Plan note Future Appointments Appointment Date:03/29/2024 01:40:00 PM Scheduled Provider:eDonte ROSARIO MD Location:[facility] Appointment Type: Open Appointment Date:08/03/2024 01:00:00 PM Scheduled Provider: Location:[facility] Appointment Type: Medicare Wellness Subsequent Future Scheduled Tests Laboratory* Sedimentation Rate Automated 06/25/23 * HgbA1c 09/23/23 * HgbA1c 03/04/23 * CBC w/ Auto Diff 09/23/23 * CBC w/ Auto Diff 03/04/23 * CBC w/ Auto Diff 04/15/23 * CBC w/ Auto Diff 02/08/23 * Comprehensive Metabolic Panel 09/23/23 * Comprehensive Metabolic Panel 03/04/23 * Comprehensive Metabolic Panel 02/08/23 * C-Reactive Protein 06/25/23 * Ferritin 03/04/23 * Ferritin 02/08/23 * Folate Level 03/04/23 * Folate Level 02/08/23 * GGT 04/15/23 * Hepatic Function Panel 04/15/23 * Iron Level 03/04/23 * Iron Level 02/08/23 * Iron Percent Saturation 02/08/23 * Lipid Panel 09/23/23 * Lipid Panel 03/04/23 * Reticulocyte Count 03/04/23 * Reticulocyte Count 02/08/23 * Vitamin B12 Level 03/04/23 * Vitamin B12 Level 02/08/23 Radiology* US Liver 04/15/23 [facility] Evaluation + Plan note Future Appointments Appointment Date:02/05/2024 02:30:00 PM Scheduled Provider:Alexx Nicole PA-C [facility] Appointment Type:Cardiology Follow Up (FT) Appointment Date:03/29/2024 01:40:00 PM Scheduled Provider:Deonte ROSARIO MD Location[place] Appointment Type:FM Open Appointment Date:08/03/2024 01:00:00 PM Scheduled Provider: Location:[facility] Appointment Type: Medicare Wellness Subsequent Future Scheduled Tests Laboratory* Sedimentation Rate Automated 06/25/23 * HgbA1c 09/23/23 * HgbA1c 03/04/23 * CBC w/ Auto Diff 09/23/23 * CBC w/ Auto Diff 03/04/23 * CBC w/ Auto Diff 04/15/23 * CBC w/ Auto Diff 02/08/23 * Comprehensive Metabolic Panel 09/23/23 * Comprehensive Metabolic Panel 03/04/23 * Comprehensive Metabolic Panel 02/08/23 * C-Reactive Protein 06/25/23 * Ferritin 03/04/23 * Ferritin 02/08/23 * Folate Level 03/04/23 * Folate Level 02/08/23 * GGT 04/15/23 * Hepatic Function Panel 04/15/23 * Iron Level 03/04/23 * Iron Level 02/08/23 * Iron Percent Saturation 02/08/23 * Lipid Panel 09/23/23 * Lipid Panel 03/04/23 * Reticulocyte Count 03/04/23 * Reticulocyte Count 02/08/23 * Vitamin B12 Level 03/04/23 * Vitamin B12 Level 02/08/23 Radiology* US Liver 04/15/23 [facility] Primary [facility] Evaluation + Plan note Future Appointments Appointment Date:03/18/2024 02:45:00 PM Scheduled Provider:Jonathon Espinoza MD [facility] Appointment Type:Cardiology Follow Up (FT) Appointment Date:03/29/2024 01:40:00 PM Scheduled Provider:Deonte ROSARIO MD Location:[facility] Appointment Type:FM Open Appointment Date:08/03/2024 01:00:00 PM Scheduled Provider: Location:[facility] Appointment Type:FM Medicare Wellness Subsequent Future Scheduled Tests Laboratory* Sedimentation Rate Automated 06/25/23 * HgbA1c 09/23/23 * HgbA1c 03/04/23 * CBC w/ Auto Diff 09/23/23 * CBC w/ Auto Diff 03/04/23 * CBC w/ Auto Diff 04/15/23 * CBC w/ Auto Diff 02/08/23 * Comprehensive Metabolic Panel 09/23/23 * Comprehensive Metabolic Panel 03/04/23 * Comprehensive Metabolic Panel 02/08/23 * C-Reactive Protein 06/25/23 * Ferritin 03/04/23 * Ferritin 02/08/23 * Folate Level 03/04/23 * Folate Level 02/08/23 * GGT 04/15/23 * Hepatic Function Panel 04/15/23 * Iron Level 03/04/23 * Iron Level 02/08/23 * Iron Percent Saturation 02/08/23 * Lipid Panel 09/23/23 * Lipid Panel 03/04/23 * Reticulocyte Count 03/04/23 * Reticulocyte Count 02/08/23 * Vitamin B12 Level 03/04/23 * Vitamin B12 Level 02/08/23 Radiology* US Liver 04/15/23 [facility] Evaluation + Plan note Future Appointments Appointment Date:03/18/2024 02:45:00 PM Scheduled Provider:Jonathon Espinoza MD [facility] Type:Cardiology Follow Up (FT) Appointment Date:03/29/2024 01:40:00 PM Scheduled Provider:Deonte ROSARIO MD Location:[facility] Appointment Type: Open Appointment Date:04/12/2024 10:45:00 AM Scheduled Provider:Migdalia Warner MD [facility] New Patient (FT) Appointment Date:08/03/2024 01:00:00 PM Scheduled Provider: Location:[facility] Appointment Type:FM Medicare Wellness Subsequent Future Scheduled Tests Laboratory* Sedimentation Rate Automated 06/25/23 * HgbA1c 09/23/23 * HgbA1c 03/04/23 * CBC w/ Auto Diff 09/23/23 * CBC w/ Auto Diff 03/04/23 * CBC w/ Auto Diff 04/15/23 * Comprehensive Metabolic Panel 09/23/23 * Comprehensive Metabolic Panel 03/04/23 * C-Reactive Protein 06/25/23 * Ferritin 03/04/23 * Folate Level 03/04/23 * GGT 04/15/23 * Hepatic Function Panel 04/15/23 * Iron Level 03/04/23 * Lipid Panel 09/23/23 * Lipid Panel 03/04/23 * Reticulocyte Count 03/04/23 * Vitamin B12 Level 03/04/23 Radiology* US Liver 04/15/23 [facility] Evaluation + Plan note Future Appointments Appointment Date:03/29/2024 01:40:00 PM Scheduled Provider:Deonte ROSARIO MD Location:[facility] Appointment Type: Open Appointment Date:04/12/2024 10:45:00 AM Scheduled Provider:Migdalia Warner MD [facility] Type:Pulmonary New Patient (FT) Appointment Date:08/03/2024 01:00:00 PM Scheduled Provider: Location:[facility] Appointment Type:FM Medicare Wellness Subsequent Future Scheduled Tests Laboratory* Sedimentation Rate Automated 06/25/23 * HgbA1c 09/23/23 * CBC w/ Auto Diff 09/23/23 * CBC w/ Auto Diff 04/15/23 * Comprehensive Metabolic Panel 09/23/23 * C-Reactive Protein 06/25/23 * GGT 04/15/23 * Hepatic Function Panel 04/15/23 * Lipid Panel 09/23/23 * Lipid Panel 08/16/24 Radiology* US Liver 04/15/23 [facility] Evaluation + Plan note Future Appointments Appointment Date:04/12/2024 10:45:00 AM Scheduled Provider:Migdalia Warner MD Location[facility] Appointment Type:Pulmonary New Patient (FT) Appointment Date:07/07/2024 01:40:00 PM Scheduled Provider:Deonte ROSARIO MD Location:[facility] Appointment Type: Open Appointment Date:08/03/2024 01:00:00 PM Scheduled Provider: Location:[facility] Appointment Type: Medicare Wellness Subsequent Future Scheduled Tests Laboratory* Sedimentation Rate Automated 06/25/23 * HgbA1c 09/23/23 * HgbA1c 03/29/24 * CBC w/ Auto Diff 09/23/23 * CBC w/ Auto Diff 03/29/24 * CBC w/ Auto Diff 04/15/23 * Comprehensive Metabolic Panel 09/23/23 * Comprehensive Metabolic Panel 03/29/24 * C-Reactive Protein 06/25/23 * GGT 04/15/23 * Hepatic Function Panel 04/15/23 * Lipid Panel 09/23/23 * Lipid Panel 03/29/24 * Lipid Panel 08/16/24 Radiology* US Liver 04/15/23 [facility] Evaluation + Plan note Future Appointments Appointment Date:07/07/2024 01:40:00 PM Scheduled Provider:Deonte ROSARIO MD Location:[facility] Appointment Type: Open Appointment Date:08/03/2024 01:00:00 PM Scheduled Provider: Location:[facility] Appointment Type: Medicare Wellness Subsequent Future Scheduled Tests Laboratory* Sedimentation Rate Automated 06/25/23 * HgbA1c 09/23/23 * HgbA1c 03/29/24 * CBC w/ Auto Diff 09/23/23 * CBC w/ Auto Diff 03/29/24 * CBC w/ Auto Diff 04/15/23 * Comprehensive Metabolic Panel 09/23/23 * Comprehensive Metabolic Panel 03/29/24 * C-Reactive Protein 06/25/23 * GGT 04/15/23 * Hepatic Function Panel 04/15/23 * Lipid Panel 09/23/23 * Lipid Panel 03/29/24 * Lipid Panel 08/16/24 Radiology* US Liver 04/15/23 [facility] evaluation + Plan note Future Appointments Appointment Date:07/07/2024 01:40:00 PM Scheduled Provider:Deonte ROSARIO MD Location:[facility] Appointment Type:FM Open Appointment Date:08/03/2024 01:00:00 PM Scheduled Provider: Location:[facility] Appointment Type: Medicare Wellness Subsequent Future Scheduled Tests Laboratory* HgbA1c 09/23/23 * CBC w/ Auto Diff 09/23/23 * Comprehensive Metabolic Panel 09/23/23 * Lipid Panel 09/23/23 * Lipid Panel 08/16/24 [facility] evaluation + Plan note Future Appointments Appointment Date:08/03/2024 01:00:00 PM Scheduled Provider: Location:[facility] Appointment Type: Medicare Wellness Subsequent Appointment Date:10/07/2024 10:20:00 AM Scheduled Provider:Deonte ROSARIO MD Location:[facility] Appointment Type: Open Future Scheduled Tests Laboratory* HgbA1c 07/07/24 * HgbA1c 09/23/23 * Urinalysis with Micro 07/07/24 * CBC w/ Auto Diff 07/07/24 * CBC w/ Auto Diff 09/23/23 * Comprehensive Metabolic Panel 07/07/24 * Comprehensive Metabolic Panel 09/23/23 * Lipid Panel 07/07/24 * Lipid Panel 09/23/23 * Lipid Panel 08/16/24 [facility] Evaluation + Plan note Future Appointments Appointment Date:11/26/2024 01:30:00 PM Scheduled Provider:Alexx Nicole PA-C [facility] [place] Appoint[facility] Type:Cardiology Follow Up (FT) Appointment Date:01/11/2025 11:40:00 AM Scheduled Provider:Deonte ROSARIO MD Location:[facility] Appointment Type:FM Open Appointment Date:08/03/2025 11:00:00 AM Scheduled Provider: Location:[facility] Appointment Type: Medicare Wellness Subsequent Future Scheduled Tests Laboratory* HgbA1c 07/07/24 * Urinalysis with Micro 07/07/24 * CBC w/ Auto Diff 07/07/24 * Comprehensive Metabolic Panel 07/07/24 * Lipid Panel 07/07/24 * Lipid Panel 08/16/24 [facility] evaluation + Plan note Future Appointments Appointment Date:11/18/2024 09:30:00 AM Scheduled Provider:Marisabel Dumont MD Location:[facility] Appointment Type:BADH Follow Up Appointment Date:11/26/2024 01:30:00 PM Scheduled Provider:Alexx Nicole PA-C [facility] Type:Cardiology Follow Up (FT) Appointment Date:01/11/2025 11:40:00 AM Scheduled Provider:Deonte ROSARIO MD Location:[facility] Appointment Type:FM Open Appointment Date:08/03/2025 11:00:00 AM Scheduled Provider: Location:[facility] Appointment Type: Medicare Wellness Subsequent Future Scheduled Tests Laboratory* HgbA1c 07/07/24 * Urinalysis with Micro 07/07/24 * CBC w/ Auto Diff 07/07/24 * Comprehensive Metabolic Panel 07/07/24 * Lipid Panel 07/07/24 * Lipid Panel 08/16/24 [facility] evaluation + Plan note Future Appointments Appointment Date:11/26/2024 01:30:00 PM Scheduled Provider:Alexx Nicole PA-C [facility] Type:Cardiology Follow Up (FT) Appointment Date:12/01/2024 10:45:00 AM Scheduled Provider:Migdalia Warner MD [facility] Type:Pulmonary Follow Up (FT) Appointment Date:12/09/2024 10:15:00 AM Scheduled Provider: Location:[facility] Appointment Type:Surgery FT Appointment Date:01/11/2025 11:40:00 AM Scheduled Provider:Deonte ROSARIO MD Location:[facility] Appointment Type:FM Open Appointment Date:08/03/2025 11:00:00 AM Scheduled Provider: Location:[facility] Appointment Type:FM Medicare Wellness Subsequent Future Scheduled Tests Laboratory* HgbA1c 07/07/24 * Urinalysis with Micro 07/07/24 * CBC w/ Auto Diff 07/07/24 * Comprehensive Metabolic Panel 07/07/24 * Lipid Panel 07/07/24 * Lipid Panel 08/16/24 Radiology* XR Adult Swallowing Function w/ Video: Evaluate Pt, Develop a Plan of Care & Implement Plan 10/26/24 [facility] Evaluation + Plan note Future Appointments Appointment Date:11/26/2024 01:30:00 PM Scheduled Provider:Alexx Nicole PA-C [facility] [place] Appointment Type:Cardiology Follow Up (FT) Appointment Date:12/01/2024 10:45:00 AM Scheduled Provider:Migdalia Warner MD [facility] Type:Pulmonary Follow Up (FT) Appointment Date:12/09/2024 10:15:00 AM Scheduled Provider: Location:[facility] Appointment Type:Surgery FT Appointment Date:01/11/2025 11:40:00 AM Scheduled Provider:Deonte ROSARIO MD Location:[facility] Appointment Type: Open Appointment Date:08/03/2025 11:00:00 AM Scheduled Provider: Location:[facility] Appointment Type:FM Medicare Wellness Subsequent Future Scheduled Tests Laboratory* HgbA1c 07/07/24 * Urinalysis with Micro 07/07/24 * CBC w/ Auto Diff 07/07/24 * Comprehensive Metabolic Panel 07/07/24 * Lipid Panel 07/07/24 * Lipid Panel 08/16/24 [facility] Evaluation + Plan note Future Appointments Appointment Date:02/09/2025 09:30:00 AM Scheduled Provider:Wolf Peres MD Location:[facility] Appointment Type:BADH Follow Up Appointment Date:04/14/2025 11:20:00 AM Scheduled Provider:Deonte ROSARIO MD Location:[facility] Appointment Type:FM Open Appointment Date:06/28/2025 03:00:00 PM Scheduled Provider:Antonio Nguyen MD [facility] Type:Cardiology Follow Up (FT) Appointment Date:08/03/2025 11:00:00 AM Scheduled Provider: Location:[facility] Appointment Type:FM Medicare Wellness Subsequent Future Scheduled Tests Laboratory* HgbA1c 07/07/24 * HgbA1c 01/11/25 * Urinalysis with Micro 07/07/24 * CBC w/ Auto Diff 07/07/24 * CBC w/ Auto Diff 01/11/25 * Comprehensive Metabolic Panel 07/07/24 * Comprehensive Metabolic Panel 01/11/25 * Ferritin 01/11/25 * Folate Level 01/11/25 * Iron Level 01/11/25 * Lipid Panel 07/07/24 * Lipid Panel 01/11/25 * Lipid Panel 08/16/24 * Reticulocyte Count 01/11/25 * Vitamin B12 Level 01/11/25 [facility] Evaluation + Plan note Future Appointments Appointment Date:04/14/2025 11:20:00 AM Scheduled Provider:Deonte ROSARIO MD Location:[facility] Appointment Type: Open Appointment Date:06/28/2025 03:00:00 PM Scheduled Provider:Antonio Nguyen MD [facility] Type:Cardiology Follow Up (FT) Appointment Date:08/03/2025 11:00:00 AM Scheduled Provider: Location:[facility] Appointment Type:FM Medicare Wellness Subsequent Future Scheduled Tests Laboratory* HgbA1c 07/07/24 * HgbA1c 01/11/25 * Urinalysis with Micro 07/07/24 * CBC w/ Auto Diff 07/07/24 * CBC w/ Auto Diff 01/11/25 * Comprehensive Metabolic Panel 07/07/24 * Comprehensive Metabolic Panel 01/11/25 * Ferritin 01/11/25 * Folate Level 01/11/25 * Iron Level 01/11/25 * Lipid Panel 07/07/24 * Lipid Panel 01/11/25 * Lipid Panel 08/16/24 * Reticulocyte Count 01/11/25 * Vitamin B12 Level 01/11/25 [facility] Evaluation note* Diagnosis 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) Coronary artery disease involving [place] coronary artery of [place] heart Primary hypertension Unspecified essential hypertension Lung nodule, solitary, 8 mm documented in this encounter [facility] Work Phone: evaluation note* 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 Abrasion of right cornea, initial encounter [facility] 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 [facility]* 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 documented [facility]* Diagnosis Dry eyes, bilateral [facility]* Diagnosis Anterior corneal dystrophy of right eye documented in this encounter [facility] HealthcareEvaluation noteNo assessment information availableOur [facility] Work Phone: Hospital course Narrative No data available for this section [facility] Discharge instructions No data available for this section [facility] No data available for this section [facility]Reason for referral (narrative) Referred by: Deonte ROSARIO MD [facility] Reqkfd for referral (narrative)No reason for referral information availableOur [facility] Work Phone: Advance Directives No Advanced Directives Records FoundLatest Code Status on File Code StatusDate ActivatedDate InactivatedCommentsFull Code06/17/2022 7:32 AMFull Code06/17/2022 7:32 AM06/17/2022 7:32 AMNameRelationshipHealthcare Agent RelationshipCommunicationJodi MatterOtherPrimary Decision Maker* Advance Directive Response Recorded Date/ Time Advance Directives Yes November 22 6:11am Summary Purpose Family History No Family History [...] for this section No Family History Records FoundNo Family History [...] for this section No Family History Records FoundNo Family History Records FoundNo Family History Records FoundNo Family History Records Found No data available for this section No data available for this section No Family History Records FoundNo Family History Records Found No data available for this section No data available for this section No Family History Records FoundNo Family History [...] for this section No Family History Records FoundNo Family History Records FoundNo Family History Records Found Additional Source Comments Care Team (unrecognized sect ion and content) Team MemberRelationshipSpecialtyStart DateEnd Date Deonte Rosario MD [address] [place] [address] PCP - GeneralInternal Medicine06/12/22 Team Status: Inactive Member Role Status Dates Ross Dolan MD Attending Provider Active Start: February 08, 2025 End: February 08, 2025 Ordered Prescriptions (unrec ognized section and content) PrescriptionSigDispensedRefillsStart DateEnd predniSONE (DELTASONE) 20 MG tablet Take 1 tablet by mouth daily for 3 doses 3 tablet carvedilol (COREG) 12.5 MG tablet Take 2 tablets by mouth 2 times daily (with meals) 60 tablet Scheduled Active and Recently Administ ered Medications (unrecognized section and content) Medication Order//01/2023 aspirin EC tablet 81 mg 81 mg, Oral, DAILY, First dose on Fri06/17/22 at 1130, Until Discontinued, Do not crush or break. * 0913 (Given - Provider: Juana Moralez RN) * 0849 (Given - Provider: Damien Villar, TOMASZ) * 0804 (Given - Provider: Corby Robledo, TOMASZ) atorvastatin (LIPITOR) tablet 80 mg 80 mg, Oral, NIGHTLY, First dose on Fri06/17/22 at 2100, Until Discontinued * 2029 (Given - Provider: Brigid Murphy, RN) * 1952 (Given - Provider: Brigid Murphy, RN) * 2099 (Due) carvedilol (COREG) tablet 12.5 mg 12.5 mg, Oral, 2 TIMES DAILY WITH MEALS, First dose (after last modification) on Fri06/18/22 at 1700, Until Discontinued, Administer with food to minimize the risk of orthostatic hypotension * 1823 (Given - Provider: Juana Moralez RN) * 0849 (Given - Provider: Damien Villar, TOMASZ) * 174 (Given - Provider: Damien Villar, TOMASZ) * 0804 (Given - Provider: Corby Robledo RN) * 1700 (Due) carvedilol (COREG) tablet 6.25 mg (CANCELED) 6.25 mg, Oral, 2 TIMES DAILY WITH MEALS, First dose on Fri06/17/22 at 1330, Until Discontinued, Administer with food to minimize the risk of orthostatic hypotension * 0913 (Given - Provider: Juana Moralez RN) cloNIDine (CATAPRES) tablet 0.1 mg 0.1 mg, Oral, 2 TIMES DAILY, First dose on Fri06/17/22 at 1130, Until Discontinued * 0913 (Given - Provider: Juana Moralez RN) * 2030 (Given - Provider: Brigid Murphy RN) * 0849 (Given - Provider: Damien Villar, TOMASZ) * 1952 (Given - Provider: Brigid Murphy, TOMASZ) * 0804 (Given - Provider: Corby Robledo, TOMASZ) * 2099 (Due) enoxaparin Sodium (LOVENOX) injection 30 mg 30 mg, SubCUTAneous, DAILY, First dose (after last modification) on Fri06/17/22 at 1130, Until Discontinued, Indication of Use: Prophylaxis-DVT/PE * 0914 (Given - Provider: Juana Moralez, RN) * 0849 (Given - Provider: Damien Villar, RN) * 0804 (Given - Provider: Corby Robledo, RN) famotidine (PEPCID) 20 mg in sodium chloride (PF) 0.9 % 10 mL injection 20 mg, IntraVENous, DAILY, First dose (after last modification) on Fri06/17/22 at 1130, Until Discontinued, IV Push over minimum of 2 minutes - Dilute with 10 mL NS * 0911 (Given - Provider: Juana Moralez RN) * 0849 (Given - Provider: Damien Villar, TOMASZ) * 0804 (Given - Provider: Corby Robledo, TOMASZ) isosorbide mononitrate (IMDUR) extended release tablet 15 mg 15 mg, Oral, DAILY, First dose on Fri06/17/22 at 1130, Until Discontinued * 0913 (Given - Provider: Juana Moralez, TOMASZ) * 0849 (Given - Provider: Damien Villar, TOMASZ) * 0804 (Given - Provider: Corby Robledo, TOMASZ) magnesium sulfate 2000 mg in 50 mL IVPB premix (COMPLETED) 2,000 mg, IntraVENous, at 100 mL/hr, Administer over 30 Minutes, ONCE, On Fri06/19/22 at 0630, For 1dose, Recommended infusion rate of 1 gram/hour. * 0626 (New Bag - Provider: Brigid Murphy RN) * 0628 (Rate/Dose Verify - Provider: Brigid Murphy, RN) * 0650 (Rate/Dose Verify - Provider: Brigid Murphy, RN) * 0658 (Stopped - Provider: Brigid Murphy, TOMASZ) methylPREDNISolone sodium (SOLU-MEDROL) injection 30 mg (CANCELED) 30 mg, IntraVENous, DAILY, First dose on Fri06/18/22 at 1330 * 1417 (Given - Provider: Juana Moralez RN) * 0849 (Given - Provider: Damien Villar, TOMASZ) oxyCODONE (ROXICODONE) immediate release tablet 5 mg (COMPLETED) 5 mg, Oral, ONCE, 1 dose, On Shante 06/20/22 at 0200 * 0236 (Given - Provider: Brigid Murphy RN) polyethylene glycol (GLYCOLAX) packet 17 g 17 g, Oral, DAILY, First dose (after last modification) on Fri06/19/22 at 0900, Until Discontinued, First line therapy for constipation * 0857 (Given - Provider: Damien Villar RN) * 0804 (Given - Provider: Corby Robledo, TOMASZ) predniSONE (DELTASONE) tablet 20 mg 20 mg, Oral, DAILY, 3 doses, First dose on [place] 06/20/22 at 0900, Last dose on 06/22/22 at 0900 * 0804 (Given - Provider: Corby Robledo RN) sodium chloride flush 0.9 % injection 5-40 mL 5-40 mL, IntraVENous, EVERY 12 HOURS SCHEDULED (2 times per day), First dose on Fri06/17/22 at 0900,Until Discontinued, For Line Patency: Peripheral IV = [...] Midline or Central Line = 20 mL/lumen * 0914 (Given - Provider: Juana Moralez RN) * 2030 (Given - Provider: Brigid Murphy RN) * 0850 (Given - Provider: Damien Villar, TOMASZ) * 195 (Given - Provider: Brigid Murphy, TOMASZ) * 0805 (Not Given - Provider: Corby Robledo RN - Reason: Other - Comment: lda removed) * 2100 (Due) ticagrelor (BRILINTA) tablet 90 mg 90 mg, Oral, 2 TIMES DAILY, First dose on Fri06/17/22 at 1130, Until Discontinued, ANTIPLATELET! * 0913 (Given - Provider: Juana Moralez RN) * 2030 (Given - Provider: Brigid Murphy RN) * 0849 (Given - Provider: Damien Villar, RN) * 1951 (Given - Provider: Brigid Murphy RN) * 0804 (Given - Provider: Corby Robledo RN) * 2100 (Due) Medication Order//01/2023 0.9 % sodium chloride infusion IntraVENous, at 5-250 mL/hr, PRN, if patient receiving piggyback infusions and maintenance fluids are not ordered OR KVO fluids to protect IV site / prevent frequent line interruptions/ long duration, Starting on Fri06/17/22 at 0830, For piggyback infusion, administer at same rate as piggyback for atotal of 25 mL. Enter 25 mL into dose field and piggyback rate into rate field of order. If piggyback is infusing at a rate less than 100 mL/hr, enter 25 mL into dose field and 100 mL/hr into rate field of order. For KVO fluids, enter rate of 20 mL/hr or less into rate field of order. * 0625 (New Bag - Provider: Brigid Murphy RN) * 0628 (Stopped - Provider: Brigid Murphy RN) * 0702 (Rate/Dose Verify - Provider: Brigid Murphy RN) * 0738 (Stopped - Provider: Damien Villar, TOMASZ) acetaminophen (TYLENOL) suppository 650 mg(Linked Group 1) 650 mg, Rectal, EVERY 6 HOURS PRN, Starting on Fri06/17/22 at 0729, Until Discontinued, Pain Mild (1-3), Fever, For temp greater than 100.4 F (38 C), Administer if oral route cannot be used. * 0237 (See Alternative - Provider: Brigid Murphy RN) * 1952 (See Alternative - Provider: Brigid Murphy RN) acetaminophen (TYLENOL) tablet 650 mg(Linked Group 1) 650 mg, Oral, EVERY 6 HOURS PRN, Starting on Fri06/17/22 at 0729, Until Discontinued, Pain Mild (1-3), Fever, For temp greater than 100.4 F (38 C), Maximum dose of acetaminophen is 4000 mg from all sources in 24 hours. * 0237 (Given - Provider: Brigid Murphy RN) * 1952 (Given - Provider: Brigid Murphy RN) diphenhydrAMINE [...] Discontinued, Dry Eyes, Substituted for cycloSPORINE (RESTASIS). * 1112 (Given - Provider: Damien Villar RN) * 1950 (Given - Provider: Brigid Murphy RN) sodium [...] as the IV push. Flush volume is determinedby type of infusion therapy being given. For [...] on Fri06/17/22 at 2100, Until Discontinued, Sleep * 2030 (Given - Provider: Brigid Murphy RN) * 1951 (Given - Provider: Brigid Murphy RN) Order Group 1: acetaminophen (TYLENOL) tablet 650 [...]
Administer if oral route cannot be used.
INFORMATION SOURCE (unrecogn ized section and content) DATE CREATED AUTHOR 06/21/2022 [facility] DATE CREATED AUTHOR AUTHOR'S ORGANIZ ATION 09/20/2022 [facility] DATE CREATED AUTHOR AUTHOR'S ORGANIZ ATION 08/01/2023 [facility] DATE CREATED AUTHOR AUTHOR'S ORGANIZ ATION 01/23/2024 [facility] DATE CREATED AUTHOR AUTHOR'S ORGANIZ ATION 01/24/2024 [facility] DATE CREATED AUTHOR AUTHOR'S ORGANIZ ATION 01/25/2024 [facility] DATE CREATED AUTHOR AUTHOR'S ORGANIZ ATION 02/10/2024 [facility] DATE CREATED AUTHOR AUTHOR'S ORGANIZ ATION 07/02/2024 [facility] DATE CREATED AUTHOR AUTHOR'S ORGANIZ ATION 07/09/2024 [facility] DATE CREATED AUTHOR AUTHOR'S ORGANIZ ATION 08/05/2024 [facility] DATE CREATED AUTHOR AUTHOR'S ORGANIZ ATION 10/09/2024 [facility] DATE CREATED AUTHOR AUTHOR'S ORGANIZ ATION 10/10/2024 [facility] DATE CREATED AUTHOR AUTHOR'S ORGANIZ ATION 10/15/2024 [facility] DATE CREATED AUTHOR AUTHOR'S ORGANIZ ATION 11/13/2024 [facility] DATE CREATED AUTHOR AUTHOR'S ORGANIZ ATION 02/25/2025 [facility] DATE CREATED AUTHOR AUTHOR'S ORGANIZ ATION 03/11/2025 [facility] Reason for Visit (unrecogniz ed section and content) ReasonCommentsEye PainReasonCommentsFollow-upReasonCommentsMed Refill Goals (unrecognized section and content) Goals may be documented in a n alternate section FOR RECORDS PERTAINING TO PATIENTS WHO ARE [...] BE BASED ON THE PRIMARY CLINICAL RECORDS. [facility]. provides no warranty or guarantee of the accuracy or completeness of information in this document.
--- NOTE | 2025-03-31 18:19 | XR_ITS ---
The [address] [address] Patient Name: MARTHA FERGUSON MRN: [id number] date: 1935 Sex: F Assigned Patient Location: ER Current Patient Location: ER Accession/Order Number: [id number] Exam Date: 03/31/2025 18:30 Report Date: 03/31/2025 19:19 At the request of: DK SOLORIO Procedure: XR chest 1V Plain film chest Single view HISTORY: Fever COMPARISON: None FINDINGS: SUPPORT DEVICES: None POSTSURGICAL CHANGES: None HEART: Borderline cardiomegaly. Large hiatal hernia. PULMONARY JOSELITO: Within normal limits MEDIASTINUM: Unremarkable LUNGS AND PLEURA: No acute lung process, pleural effusion or pneumothorax identified. BONY STRUCTURES: Intact ADDITIONAL FINDINGS None XR/XR chest 1V IMPRESSION: No acute process. Impression dictated by: Delbert Liu M.D. 03/31/2025 7:19 PM Dictation Location: [place] [address] Electronically authenticated by: [id number] Y Date: 03/31/2025 19:19
[2025-03-31] MEDS: LIDOCAINE 5% PATCH 1 PATCH TOPICAL (18:38)
[2025-03-31] MEDS: HYDROCODONE/ACET 5-325 MG TABLET 1 TAB PO (18:49)
[2025-03-31 19:34] LABS: Glucose Urine UA NEGATIVE (NEGATIVE)
[2025-03-31 19:43] LABS: Cast Seen? NONE SEEN #/LPF (NONE SEEN); Crystals Seen? None Seen #/HPF (None Seen); Urine Culture Indicated NO
[2025-03-31 19:46] VITALS: PULSE 88; TEMP 37.4; O2SAT 95
--- NOTE | 2025-04-05 13:04 | ED.GENADUL1 ---
HPI HPI - General Adult General Chief complaint: Extremity Problem, Nontraumatic Time Seen by Provider: 03/31/25 16:18 Source: patient Mode of arrival: ambulance Limitations: no limitations History of Present Illness HPI narrative: Patient is an 89-year-old female with a PMH of SC with cardiac stent on Brilinta that presents with complaints of 2 days of low back and right hip pain that travels down the posterior aspect of her right buttock to the back of her thigh. The pain does not travel past her knee. She denies any trauma or falls. She denies any previous issues with her back or surgery on her back. She lives at assisted living. Upon arrival she also has a temperature of 100.4, she denies feeling feverish at home, night sweats, or chills. She denies any cough, nasal congestion, runny nose, or nausea vomiting. She states she has had some loose stools but denies any abdominal pain. Related Data Home Medications ?Medication ?Instructions ?Recorded ?Confirmed amlodipine 5 mg tablet 10 mg PO DAILY 03/26/23 03/31/25 carvedilol 25 mg tablet 25 mg PO Q12H 03/26/23 03/31/25 clonidine HCl 0.1 mg tablet 0.1 mg PO Q12H 03/26/23 03/31/25 docusate sodium 100 mg capsule 100 mg PO BID PRN constipation 03/26/23 03/31/25 (Col-Rite) ferrous sulfate 325 mg (65 mg 325 mg PO DAILY 03/26/23 03/31/25 iron) tablet (Feosol) ipratropium bromide 21 mcg (0.03 2 spray intranasal TID PRN allergy 03/26/23 03/31/25 %) nasal spray symptoms isosorbide mononitrate 30 mg 30 mg PO DAILY 03/26/23 03/31/25 tablet,extended release 24 hr ondansetron HCl 4 mg tablet 4 mg PO Q8H PRN nausea and vomiting 03/26/23 03/31/25 pantoprazole 40 mg tablet,delayed 40 mg PO DAILY 03/26/23 03/31/25 release spironolactone 25 mg tablet 25 mg PO DAILY 03/26/23 03/31/25 ticagrelor 90 mg tablet (Brilinta) 90 mg PO Q12H 03/26/23 03/31/25 trazodone 50 mg tablet 50 mg PO BEDTIME insomnia 03/26/23 03/31/25 acyclovir 400 mg tablet 400 mg PO Q8H 03/31/25 03/31/25 erythromycin 5 mg/gram (0.5 %) eye 1 inch ophthalmic (eye) Q6H 03/31/25 03/31/25 ointment fluticasone fur. 200 mcg-umeclid 1 inh inhalation Q24H 03/31/25 03/31/25 62.5 mcg-vilant 25 mcg inhalat.powder (Trelegy Ellipta) Previous Rx's ?Medication ?Instructions ?Recorded albuterol sulfate 90 mcg/actuation 2 inh inhalation Q4H PRN shortness 08/27/23 aerosol inhaler of breath or wheezing #6.7 grams acetaminophen 500 mg tablet 500 mg PO Q6H PRN pain #60 tabs 03/31/25 (Tylenol Extra Strength) hydrocodone 5 mg-acetaminophen 325 1 tab PO Q8H PRN pain #14 tabs 03/31/25 mg tablet lidocaine 5 % topical patch 1 patch topical Q24H #15 ea 03/31/25 (Lidoderm) Allergies Allergy/AdvReac Type Severity Reaction Status Date / Time Penicillins Allergy Severe Verified 03/26/23 10:06 lisinopril Allergy Unknown Verified 03/26/23 10:06 metaxalone (From Skelaxin) Allergy Unknown Verified 03/26/23 10:06 Opioid HPI Opioid Management Most Recent Opioid Data: Last Pain Scale 8 03/31/25, 18:49 Last ED Pain Assessment 03/31/25, 17:48 Last MAR Pain Assessment 03/31/25, 18:49 Last ORT Total Score 0 08/26/23, 21:13 Last ORT Risk Category Low Risk 08/26/23, 21:13 Review of Systems ROS Status of ROS 10 or more systems reviewed and unremarkable except as noted in history and below [facility] Medical History (Updated 03/31/25 @ 19:51 by OSMIN Venegas) Bronchitis ?J40 - Bronchitis, not specified as acute or chronic (ICD-10) Sciatica ?M54.30 - Sciatica, unspecified side (ICD-10) Weakness ?R53.1 - Weakness (ICD-10) Acute right eye pain ?H57.11 - Ocular pain, right eye (ICD-10) Carotid artery stenosis ?I65.29 - Occlusion and stenosis of unspecified carotid artery (ICD-10) GERD (gastroesophageal reflux disease) ?K21.9 - Gastro-esophageal reflux disease without esophagitis (ICD-10) Glaucoma ?H40.9 - Unspecified glaucoma (ICD-10) Hyperlipidemia ?E78.5 - Hyperlipidemia, unspecified (ICD-10) Lymphoma ?C85.90 - Non-Hodgkin lymphoma, unspecified, unspecified site (ICD-10) COPD (chronic obstructive pulmonary disease) ?J44.9 - Chronic obstructive pulmonary disease, unspecified (ICD-10) Anxiety ?F41.9 - Anxiety disorder, unspecified (ICD-10) CVA (cerebral vascular accident) ?I63.9 - Cerebral infarction, unspecified (ICD-10) HTN (hypertension) ?I10 - Essential (primary) hypertension (ICD-10) Iron deficiency ?E61.1 - Iron deficiency (ICD-10) CAD (coronary artery disease) ?I25.10 - Atherosclerotic heart disease of [place] coronary artery without angina pectoris (ICD-10) Family History (Updated 08/26/23 @ 22:52 by Jessica Whitney) Other Family history not known due to adoption Social History (Updated 08/26/23 @ 22:53 by Jessica Whitney) Within the past year, how often did you have a drink containing alcohol: never Within the past year, how often did you have six or more drinks on one occasion: never Score interpretation: A score less than 3 is consistent with normal alcohol consumption. 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 Known occupational exposures/hazards: No Highest level of school completed/degree received: Associate degree: occupational, technical, vocational program Are you now , , , , never or living with a partner: In a typical week, how many times do you talk on the telephone with family, friends, or neighbors: never How often do you get together with friends or relatives: once per week How often do you attend anabaptist or sabianism services: 1-3 times per year Do you belong to any clubs or organizations such as anabaptist groups unions, fraternal or athletic groups, or school groups: no Total score: 0 Score interpretation: A score of less than or equal to 1 indicates the most socially isolated. Little interest or pleasure in doing things: not at all Feeling down, depressed, or hopeless: not at all Feel stressed/tense/nervous/anxious/difficulty sleeping: not at all Due to disability, difficulty making decisions: No Do you think of yourself as: straight/heterosexual Gender Identity: female Exam Narrative Exam Narrative: General: No distress, age-appropriate Skin: Warm, dry, no pallor. No rash. Head: Normocephalic, atraumatic. Neck: Supple, non-tender. Eye: Pupils are equal, round and EOMI. No scleral icterus. Ears, Nose, Mouth, and Throat: No nasal mucosal hypertrophy. Oral mucosa is moist, no posterior oropharynx erythema, uvula is mid-line Cardiovascular: Regular Rate and Rhythm without murmur, gallop or rub. Respiratory: No accessory muscle use or respiratory distress. Lungs are clear to auscultation, no wheezing, rales or rhonchi Chest Wall: no tenderness Back: No midline thoracic tenderness, midline lumbar tenderness with palpation. Musculoskeletal: Full ROM of all extremities, no calf or popliteal tenderness. 5/5 strength bilateral lower extremities. Right lower extremity testing provokes pain in the right hip and posterior thigh. Palpation of the right buttocks and posterior thigh does not reproduce her pain. GI: Abdomen is soft, non-distended, non tender to palpation. No masses appreciated. No rebound, guarding, or rigidity noted. Neurological: A&O x4. No cranial nerve dysfunction observed. No truncal ataxia. Moves all extremities. Sensation intact. Psychiatric: Cooperative and interactive. Normal mood and affect. Constitutional Vital Signs, click to edit/add: Last Vital Signs Temp 99.4 F 03/31/25 19:46 Pulse 88 03/31/25 19:46 Resp 20 03/31/25 19:46 BP 162/77 H 03/31/25 16:12 Pulse Ox 95 03/31/25 19:46 O2 Del Method Room Air 03/31/25 16:45 Documenting provider has reviewed patient's vital signs: yes Course Vital Signs Vital signs: Vital Signs Temperature 100.4 F 03/31/25 16:12 Pulse Rate 97 H 03/31/25 16:12 Respiratory Rate 18 03/31/25 16:12 Blood Pressure 162/77 H 03/31/25 16:12 Pulse Oximetry 93 L 03/31/25 16:12 Oxygen Delivery Method Room Air 03/31/25 16:12 Temperature 99.4 F 03/31/25 19:46 Pulse Rate 88 03/31/25 19:46 Respiratory Rate 20 03/31/25 19:46 Blood Pressure 162/77 H 03/31/25 16:12 Pulse Oximetry 95 03/31/25 19:46 Oxygen Delivery Method Room Air 03/31/25 16:45 Medical Decision Making MDM Narrative Medical decision making narrative: 89-year-old female with history of SC with stent on Brilinta presenting with 2 days of atraumatic low back and right posterior hip pain with radiation to the posterior thigh, accompanied by low-grade feveron arrival today. Differential included lumbar radiculopathy, musculoskeletal strain, but also more serious etiologies such as spinal epidural abscess, vertebral osteomyelitis, discitis, psoas abscess, septic arthritis, and intra-abdominal infection. CT lumbar spine and CT right hip showed no acute findings. UA, CXR, COVID, and influenza testing negative. Labs notable for WBC 17.1 with 90% neutrophils and mild CIERRA (Cr 1.7, baseline ~1.5). Pain improved significantly with multimodal analgesia (morphine, acetaminophen, lidocaine patch), and patient was able to ambulate with improved comfort. Patient was alert, oriented, non-toxic, and demonstrated clear decision-making capacity and wanted to return to her assisted living after discussion of her results and risks including potential progression of infection, neurologic compromise, sepsis, and need for future emergent care. Shared decision-making performed. She was discharged with [place], acetaminophen, and lidocaine patches, and given strict return precautions with instructions to follow up with her primary care provider within 24?48 hours. Differential Diagnosis Differential Diagnosis: Lumbar radiculopathy, lumbar compression fracture, spinal abscess Lab Data Lab results reviewed: Yes I reviewed the patient's lab results Labs: Lab Results 03/31/25 03/31/25 03/31/25 Range/Units 16:10 17:11 19:25 WBC 17.1 H (4.0-11.0) 10^3/uL RBC 3.76 L (4.20-5.40) 10^6/uL Hgb 11.8 L (12.0-16.0) g/dL Hct 35.5 L (36.0-48.0) % MCV 94.4 (81.0-99.0) fL MCH 31.4 (26.7-34.0) pg MCHC 33.2 (29.9-35.2) g/dL RDW 16.2 H (11.0-15.0) % Plt Count 205 (150-450) 10^3/uL MPV 9.8 (9.5-13.5) fL Neut % (Auto) 90.4 H (43.0-75.0) % Lymph % (Auto) 3.7 L (20.5-60.0) % [place] % (Auto) 3.3 (1.7-12.0) % Eos % (Auto) 1.3 (0.9-7.0) % Baso % (Auto) 0.4 (0.2-2.0) % Neut # (Auto) 15.5 H (1.4-6.5) 10^3/uL Lymph # (Auto) 0.6 L (1.2-3.8) 10^3/uL [place] # (Auto) 0.6 (0.3-0.8) 10^3/uL Eos # (Auto) 0.2 (0.0-0.7) 10^3/uL Baso # (Auto) 0.1 (0.0-0.1) 10^3/uL Abs Immat Gran (auto) 0.16 H (0.00-0.03) 10^3/uL Imm/Tot Granulo (auto) 0.9 H (0.0-0.5) % Sodium 141 (136-145) mmol/L Potassium 4.5 (3.5-5.1) mmol/L Chloride 105 (98-107) mmol/L Carbon Dioxide 27.8 (21.0-32.0) mmol/L Anion Gap 12.7 BUN 26.0 H (7.0-18.0) mg/dL Creatinine 1.72 H (0.55-1.02) mg/dL Est GFR ( Amer) 34 L (>=60 mL/min/1.73m^2) Est GFR (Non-Af Amer) 28 L (>=60 mL/min/1.73m^2) BUN/Creatinine Ratio 15.1 Glucose 92 (74-106) mg/dL Calcium 9.1 (8.5-10.1) mg/dL Total Bilirubin 0.5 (0.2-1.0) mg/dL AST 17 (15-37) U/L ALT 23 (14-59) U/L Alkaline Phosphatase 184 H (46-116) U/L Total Protein 6.7 (6.4-8.2) g/dL Albumin 3.6 (3.4-5.0) g/dL Globulin 3.1 g/dL Albumin/Globulin Ratio 1.2 Urine Color Lt. yellow (YELLOW) Urine Clarity Clear (CLEAR) Urine pH 6.0 (5.0-9.0) Ur Specific [place] 1.010 (1.005-1.025) Urine Protein Negative (NEG/TRACE) mg/dL Urine Glucose (UA) Negative (NEGATIVE) mg/dL Urine Ketones Negative (NEGATIVE) mg/dL Urine Occult Blood Trace-i (NEGATIVE) Urine Nitrite Negative (NEGATIVE) Urine Bilirubin Negative (NEGATIVE) Urine Urobilinogen 0.2 (0.2-1.0) EU/dL Ur Leukocyte Esterase Negative (NEGATIVE) Urine RBC 0-2 (0-2) #/HPF Urine WBC 0-2 A (NONE SEEN) #/HPF Ur Squamous Epith Cells Few A (NONE/RARE) #/LPF Urine Crystals None seen (None Seen) #/HPF Urine Bacteria None seen (NONE SEEN) #/HPF Urine Casts None seen (NONE SEEN) #/LPF Urine Mucus None seen (NONE SEEN) Ur Culture Indicated? No Influenza Type A Ag Negative Influenza Type B Ag Negative SARS-CoV-2 Ag (CV2AG) Negative (NEGATIVE) Imaging Data Chest x-ray: Attestation: I have reviewed the pertinent imaging results. Radiologist's impression: ITS Impressions Hip CT 03/31/25 16:52 IMPRESSION: Degenerative change. No acute fracture. Routine technique for CT of the right hip Adequate bony alignment without acute displaced fracture. Mild right hip degeneration. Greater trochanter spurring. No focal soft tissue abnormality. IMPRESSION: No acute displaced fracture. Mild degeneration of the right hip. Impression dictated by: Delbert Liu M.D. 03/31/2025 5:49 PM Dictation Location: [place] [id number] Electronically authenticated by: [id number] Y Date: 03/31/2025 17:[address] 03/31/25 16:52 IMPRESSION: Degenerative change. No acute fracture. Routine technique for CT of the right hip Adequate bony alignment without acute displaced fracture. Mild right hip degeneration. Greater trochanter spurring. No focal soft tissue abnormality. IMPRESSION: No acute displaced fracture. Mild degeneration of the right hip. Impression dictated by: Delbert Liu M.D. 03/31/2025 5:49 PM Dictation Location: [facility] Electronically authenticated by: [id number] Y Date: 03/31/2025 17:49 Chest X-Ray 03/31/25 18:19 IMPRESSION: No acute process. Impression dictated by: Delbert Liu M.D. 03/31/2025 7:19 PM Dictation Location: [facility] Electronically authenticated by: [id number] Y Date: 03/31/2025 19:19 Discharge Plan Discharge Chief Complaint: Extremity Problem, Nontraumatic Clinical Impression: Lumbar radiculopathy, acute, Acute viral syndrome Patient Disposition: Home, Self-Care Time of Disposition Decision: 19:50 Condition: Good Mode of Transportation: Private Vehicle Prescriptions / Home Meds: New acetaminophen [Tylenol Extra Strength] 500 mg tablet 500 mg PO Q6H PRN (Reason: pain) Qty: 60 0RF hydrocodone-acetaminophen 5-325 mg tablet 1 tab PO Q8H PRN (Reason: pain) Qty: 14 0RF lidocaine [Lidoderm] 5 % adhesive patch,medicated 1 patch topical Q24H Qty: 15 0RF Rx Instructions: leave on most painful area for up to 12 hrs No Action amlodipine 5 mg tablet 10 mg PO DAILY carvedilol 25 mg tablet 25 mg PO Q12H clonidine HCl 0.1 mg tablet 0.1 mg PO Q12H isosorbide mononitrate 30 mg tablet extended release 24 hr 30 mg PO DAILY pantoprazole 40 mg tablet,delayed release (DR/EC) 40 mg PO DAILY spironolactone 25 mg tablet 25 mg PO DAILY ticagrelor [Brilinta] 90 mg tablet 90 mg PO Q12H ferrous sulfate [Feosol] 325 mg (65 mg iron) tablet 325 mg PO DAILY docusate sodium [Col-Rite] 100 mg capsule 100 mg PO BID PRN (Reason: constipation) ipratropium bromide 21 mcg (0.03 %) spray,non-aerosol 2 spray INTRANASAL TID PRN (Reason: allergy symptoms) ondansetron HCl 4 mg tablet 4 mg PO Q8H PRN (Reason: nausea and vomiting) trazodone 50 mg tablet 50 mg PO BEDTIME albuterol sulfate 90 mcg/actuation HFA aerosol inhaler 2 inh inhalation Q4H PRN (Reason: shortness of breath or wheezing) Qty: 6.7 0RF Trelegy Ellipta 200-62.5-25 mcg blister with device 1 inh INHALATION Q24H acyclovir 400 mg tablet 400 mg PO Q8H erythromycin 5 mg/gram (0.5 %) ointment 1 inch OPHTHALMIC (EYE) Q6H Print Language: Croatian Instructions: Lumbar Radiculopathy (ED), Lower Back Exercises (ED) Additional Instructions: Use lidocaine patches as directed, take Tylenol as needed for pain as directed. Hydrocodone?acetaminophen 5-325 mg given for breakthrough pain every 8 hours as needed. This medication also contains Tylenol/acetaminophen, do not exceed 3000 mg/day doses to reduce risk to liver. Referrals: Physician,Non-Staff, MD [Primary Care Provider] - 1 week Discharge Date/Time: 03/31/25 22:53
== END 2025-03-31 22:53 | disposition home or self-care (01) ==
PROVIDERS: Physician Assistant; Emergency Provider Emergency Medicine
DX: M54.16 Radiculopathy, lumbar region (principal); B34.9 Viral infection, unspecified; I25.2 Old myocardial infarction; Z79.899 Other long term (current) drug therapy; R50.9 Fever, unspecified
CPT/HCPCS: 36415; 71045; 72131; 73700; 76376; 80053; 81001; 85025; 87804; 87811; 96374; 99285; J2270